=== PATIENT | female | born 1960 | race Caucasian/White ===

== ENCOUNTER 2018-12-07 12:20 | Emergency (ER) | payer MEDICARE, MEDICAID, SELFPAY ==
[2018-12-07 12:26] VITALS: BP 124/64; PULSE 100; RESP 20; TEMP 37.5; O2SAT 94
--- NOTE | 2018-12-07 12:30 | DI.RAD_ITS ---
SYMPTOMS/DIAGNOSIS: COUGH, FEVER AP AND LATERAL CHEST: There is a transvenous cardiac pacemaker in position. There is a question of prominence of the pulmonary bell bilaterally. Slight prominence of pulmonary markings particularly in the perihilar regions may be chronic or acute. No gross lobar consolidation seen. No pleural effusion seen. CONCLUSION: Question hilar enlargement. Additional evaluation with chest CT recommended.
--- NOTE | 2018-12-07 12:42 | ED.GENADUL_ITS ---
Discharge Plan Disposition Patient Disposition: HOME Condition: Stable Discharge Details Chief Complaint: Fever Clinical Impression: Pneumonia Primary Care Provider: Luis Manuel Blanca ED Provider: Celestine Pang [place] Meds and New Rx's Prescriptions: New levofloxacin [Levaquin] 750 mg tablet 750 mg PO DAILY Qty: 6 RF: 0 Continued atorvastatin [Lipitor] 40 mg tablet 40 mg PO HS Qty: 90 RF: 3 cholecalciferol (vitamin D3) 1,000 unit capsule 1,000 unit PO BID Qty: 180 RF: 4 nystatin 100,000 unit/gram powder 1 applic Topical BID PRN Qty: 60 RF: 3 furosemide 40 mg tablet 20 - 40 mg PO QAM Qty: 90 RF: 3 phenobarbital 64.8 mg tablet 129.6 mg PO DAILY Qty: 60 RF: 5 acetaminophen [Tylenol Extra Strength] 500 MG tablet 500 mg PO Q8HR PRN RF: 0 Hinged Knee Brace Miscellaneous DAILY Qty: 1 RF: 0 loratadine 10 MG tablet 10 mg PO DAILY PRN Qty: 90 RF: 4 hemp oil 1.875 ml PO BID Qty: 1 RF: 0 clotrimazole-betamethasone 15 GM cream 15 gm Topical BID prn Qty: 30 RF: 2 quetiapine [Seroquel] 50 MG tablet 25 mg PO HS Qty: 90 RF: 3 Lorazepam 1 MG tablet 1 - 4 mg PO DIRECTED PRNQty: 30 RF: 1 oxcarbazepine [Trileptal] 300 MG tablet 600 mg PO TID Qty: 150 RF: 11 ferrous gluconate 324 MG tablet 324 mg PO DAILY Qty: 90 RF: 3 esomeprazole magnesium [Nexium] 40 mg capsule,delayed release(DR/EC) 40 mg PO BID Qty: 180 RF: 3 sertraline 100 mg tablet 100 mg PO DAILY Qty: 90 RF: 3 diazepam [Diastat AcuDial] 12.5-15-17.5-20 mg kit 20 mg AK as directed PRN (Reason: seizure activity) Qty: 1 RF: 2 clobazam [Onfi] 10 mg tablet 20 mg PO HS Qty: 60 RF: 5 Banzel 400 mg tablet 1,200 mg PO TID Qty: 240 RF: 3 ascorbic acid (vitamin C) [Vitamin C] 250 MG tablet 250 mg PO DAILY PRN RF: 0 melatonin 3 MG tablet 1 tab PO DAILY RF: 0 Discontinued ondansetron HCl [Zofran] 4 MG tablet 1 tab PO q 8 hr prn Qty: 20 RF: 1 Discharge Instructions Instructions: Pneumonia (ED) Additional Instructions: Return immediately to the emergency department for any new or significant worsening of symptoms, difficulty breathing, or any further concerns he may have. Otherwise continue to treat the fever with acetaminophen/Tylenol as needed. Keep patient well-hydrated and encourage appropriate nutrition. If improving please follow-up with primary care provider for reassessment next week. Consider holding your Seroquel while taking the Levaquin as these medications can interact together. You can take a maximum of 1000 mg of Tylenol every 6 hours as needed for pain. Referrals: Luis Manuel Blanca [Primary Care Provider] - 5 days (Call the office on Monday morning for arrangement of follow-up appointment) Discharge Data Discharge Date/Time-TO BE ENTERED AT DEPARTURE: 12/07/18 17:05 Medical Decision Making Patient presenting to the emergency department for chief complaint of fever and cough. Caregiver states that patient has had these symptoms for the past 3 weeks but yesterday patient started running a fever. Patient has seizure disorder and did have a seizure last night which caregiver states is not abnormal for her when she starts running a fever. Caregiver states typical seizure-like behavior and no abnormalities. She does state some increased malaise today noted in patient but otherwise mental status at patient's baseline. Patient does follow commands and responds her name but is minimally verbal. Physical exam shows bilateral rhonchi lower bases but patient is making a lot of noise during exam making it difficult to hear full auscultation of lungs. Patient does have mild cervical lymphadenopathy otherwise HEENT exam, cardiac exam are nondiagnostic unremarkable. Review of primary care notes shows that patient did have visit recently for diagnosis of upper respiratory tract infection. I am concerned for possible secondary pneumonia so chest x-ray and labs were ordered. Patient is otherwise stable at this time showing no hypotension and O2 sat of 94% on room air. Review of labs show a leukocytosis, nondiagnostic CMP, and chest x-ray that speaking with radiologist shows a elevated hilum. Patient has not had this in the past and radiologist requests a chest CT if concern for pulmonary source. Given that this is the main complaint of patient coming to the emergency department I do feel that this is appropriate. Speaking with radiologist about CT findings there is concern for multilobular pneumonia versus possible metastatic disease. Given patient's history of seizure there is concern for aspiration pneumonia causing her symptoms. Patient is allergic to Augmentin so plan to use Levaquin. Patient uses Seroquel for sleep and no longer using Zofran but plan to do EKG to ensure no QT prolongation. EKG reviewed with Dr. Kapoor and shows sinus rhythm with short AK of 111, otherwise rate of 97, within normal limits for QT, nondiagnostic. Patient started on Levaquin and given Tylenol emergency department for fever. Caregivers state that patient is slightly more tired than normal but otherwise she has been more sick in the past when she required admission. They state comfortability of taking patient home and given stable vital signs I feel that this is appropriate. I did speak to Dr. Blanca patient's primary care provider whom stated that patient would be able to follow-up next week in their office and stated no objections to patient going home. Did communicate CT findings with primary care provider and radiologist request for patient to have repeat imaging in the next 3 to 4-weeks. patient prescribed Levaquin for total of 7 days. Close return precautions were discussed with caregivers. After discussion of diagnosis and plan of care, caregivers have no further needs, questions, or concerns and states clear understanding to return to the emergency department for any worsening symptoms. HPI General Mode of arrival: EMS . Date/Time Provider Initiated Documentation: 12/07/18 12:28 . Limitations to Documentation: no limitations . Information obtained by: RN/MD, EMS and RN notes reviewed . History of Present Illness 58 year old F presents to the emergency department with the chief complaint of fever, cough, Patient started experiencing this week(s) (3) and it has been constant. No relieving factors improve symptom(s), Patient did receive the following treatments prior to arrival, none Related Data Home Medications Medication Instructions Recorded Confirmed acetaminophen [Tylenol Extra 500 mg PO Q8HR PRN 11/14/12 12/07/18 Strength] ascorbic acid (vitamin C) [Vitamin 250 mg PO DAILY PRN 08/11/14 12/07/18 C] loratadine 10 mg PO DAILY PRN #90 tab-cap 05/10/16 12/07/18 melatonin 1 tab PO DAILY 07/09/16 12/07/18 Hemp Oil 1.875 ml PO BID #1 09/07/16 12/07/18 clotrimazole-betamethasone 15 gm TOPICAL BID prn #30 g 02/21/17 12/07/18 quetiapine [Seroquel] 25 mg PO HS #90 tab-cap 03/13/18 12/07/18 ferrous gluconate 324 mg PO DAILY #90 tab-cap 03/26/18 12/07/18 oxcarbazepine [Trileptal] 600 mg PO TID #150 tab-cap NS 03/26/18 12/07/18 esomeprazole magnesium 40 mg 40 mg PO BID #180 tab-cap 07/02/18 12/07/18 capsule,delayed release diazepam 12.5 mg-15 mg-17.5 mg-20 20 mg AK as directed PRN #1 kit 08/27/18 12/07/18 mg rectal kit sertraline 100 mg tablet 100 mg PO DAILY #90 tab-cap 08/27/18 12/07/18 clobazam 10 mg tablet 20 mg PO HS #60 tab-cap 09/25/18 12/07/18 rufinamide 400 mg tablet 1,200 mg PO TID #240 tab-cap 09/27/18 12/07/18 atorvastatin 40 mg tablet 40 mg PO HS #90 tab-cap 11/27/18 12/07/18 cholecalciferol (vitamin D3) 1,000 1,000 unit PO BID #180 tab-cap 11/27/18 12/07/18 unit capsule furosemide 40 mg tablet 20 - 40 mg PO QAM #90 tab-cap 11/27/18 12/07/18 nystatin 100,000 unit/gram topical 1 applic TOPICAL BID PRN #60 gm 11/27/18 12/07/18 powder phenobarbital 64.8 mg tablet 129.6 mg PO DAILY #60 tab 11/27/18 12/07/18 levofloxacin [Levaquin] 750 mg PO DAILY #6 tab 12/07/18 Previous Rx's Medication Instructions Recorded quetiapine [Seroquel] 25 mg PO HS #90 tab-cap 03/13/18 ferrous gluconate 324 mg PO DAILY #90 tab-cap 03/26/18 oxcarbazepine [Trileptal] 600 mg PO TID #150 tab-cap NS 03/26/18 esomeprazole magnesium 40 mg 40 mg PO BID #180 tab-cap 07/02/18 capsule,delayed release diazepam 12.5 mg-15 mg-17.5 mg-20 20 mg AK as directed PRN #1 kit 08/27/18 mg rectal kit sertraline 100 mg tablet 100 mg PO DAILY #90 tab-cap 08/27/18 clobazam 10 mg tablet 20 mg PO HS #60 tab-cap 09/25/18 rufinamide 400 mg tablet 1,200 mg PO TID #240 tab-cap 09/27/18 atorvastatin 40 mg tablet 40 mg PO HS #90 tab-cap 11/27/18 cholecalciferol (vitamin D3) 1,000 1,000 unit PO BID #180 tab-cap 11/27/18 unit capsule furosemide 40 mg tablet 20 - 40 mg PO QAM #90 tab-cap 11/27/18 nystatin 100,000 unit/gram topical 1 applic TOPICAL BID PRN #60 gm 11/27/18 powder phenobarbital 64.8 mg tablet 129.6 mg PO DAILY #60 tab 11/27/18 levofloxacin [Levaquin] 750 mg PO DAILY #6 tab 12/07/18 Allergies Allergy/AdvReac Type Severity Reaction Status Date / Time amoxicillin trihydrate Allergy Intermediate SKIN RASH Unverified 12/04/17 11:00 [From Augmentin] potassium clavulanate Allergy Intermediate SKIN RASH Unverified 12/04/17 11:00 [From Augmentin] risedronate sodium AdvReac Mild GI SX Unverified 12/04/17 11:00 [From Actonel] General Stated Complaint: Fever GIRMA: 3 Review of Systems Constitutional Reports fever(s) and Reports malaise ENT Reports as per HPI, Denies ear discharge, Denies otalgia, Denies nasal congestion, Reports nasal discharge, Denies neck pain and Denies sore throat Cardiovascular Denies chest pain and Denies dyspnea Respiratory Reports as per HPI, Reports cough and Denies dyspnea Gastrointestinal Denies nausea and Denies vomiting Musculoskeletal Denies joint swelling and Denies neck pain Integumentary/Breasts Denies rash PFSH Medical History Edema Hyperlipidemia Iron deficiency anemia Seizure disorder Surgical History Cholecystectomy (~2003) EGD - MAC (07/12/14) Fracture, Open Treatment Family History Mother Essential hypertension Diabetes Dementia Hyperlipidemia Father Essential hypertension Diabetes Heart disease Hyperlipidemia Brother Diabetes Heart disease Hyperlipidemia Social History Smoking/Tobacco Use Status: Never Drug use: Never Additional Social history: unable to assess Exam Const General: cooperative, comfortable and no acute distress Orientation: alert and awake HENMT Head: normal to inspection, normocephalic and atraumatic Ears: TM's normal bilaterally General nose exam: external nose normal Mouth: oral mucosae normal, no drooling and no trismus Throat: posterior oropharynx normal, tonsils normal and uvula midline Neck Neck: normal visual inspection, full ROM, no meningeal signs, trachea midline, supple and lymphadenopathy (Mild anterior cervical) Resp Effort & Inspection: normal respiratory effort, able to speak in complete sentences and cough Quality of cough: actively coughing Auscultation: rhonchi lower bilaterally Cardio Rate: regular rate Rhythm: regular rhythm Heart Sounds: S1 normal, S2 normal, normal S1 and S2, no click, no gallops, no murmurs and no rubs Skin General skin exam: no rashes or lesions noted and dry skin (warm) Neuro General: alert, awake and moves all extremities Course Vital Signs Temperature 37.5 C 12/07/18 12:26 Pulse 100 H 12/07/18 12:26 Respiratory Rate 20 12/07/18 12:26 Blood Pressure 124/64 12/07/18 12:26 Pulse Oximetry 94 L 12/07/18 12:26 Temperature 37.5 C 12/07/18 12:26 Temperature Source Temporal Artery Scan 12/07/18 12:26 Pulse 100 H 12/07/18 12:26 Respiratory Rate 20 12/07/18 12:26 Respiratory Effort Non-Labored 12/07/18 12:26 Blood Pressure 124/64 12/07/18 12:26 Pulse Oximetry 94 L 12/07/18 12:26 Oxygen Delivery Method Room Air 12/07/18 12:26 Oxygen Flow Rate 0 12/07/18 12:26 Pain Level 0 12/07/18 12:26
[2018-12-07 13:05] LABS: Abs Immature Grans 0.03 k/cumm (0.0-0.09); Absolute Monocyte Count 0.54 k/cumm (0.11-0.7); Absolute Neutrophil Count 11.27 k/cumm (1.2-6.7); HCT 39.5 % (36.0-46.0); HGB 12.9 g/dL (12.0-15.5); Immature Grans % 0.2; Lymphocytes % 6.3; Mean Corp. HGB Concentration 32.7 g/dL (32.0-36.0); Mean Corpuscular Hemoglobin 29.6 pg (27.0-33.0); Mean Corpuscular Volume 90.6 fL (80-95); Mean Platelet Volume 9.6 fL (8.0-11.0); Monocytes % 4.3; Neutrophils % 89.2; Platelet Count 203 x1000/uL (130-400); RBC 4.36 m/cumm (4.00-5.20); RBC Distribution Width 13.8 % (11.7-14.6); White Blood Cell Count 12.63 k/cumm (4.4-10.8)
[2018-12-07 13:18] LABS: ALT 31 U/L (12-78); AST 22 U/L (15-37); Albumin 3.3 g/dL (3.4-5.0); Alkaline Phosphatase 120 U/L (46-116); Anion Gap 7.2 mmol/L (3-11); BUN 13 mg/dL (7-18); Bilirubin, Total 0.2 mg/dL (0.2-1.0); CO2 31.8 mmol/L (21.0-32.0); CREATININE 0.69 mg/dL (0.55-1.02); Calcium 9.1 mg/dL (8.5-10.1); Chloride 100 mmol/L (98-107); Glucose 125 mg/dL (70-100); Potassium 3.4 mmol/L (3.5-5.1); Sodium 139 mmol/L (136-145); Total Protein 7.1 g/dL (6.4-8.2)
[2018-12-07] MEDS: Omnipaque 350 MG/ML 100 ML BTL IJ (13:49)
[2018-12-07] MEDS: Normal Saline Flush 10 ML SYR IVP ×2 (13:51→15:01)
--- NOTE | 2018-12-07 13:51 | DI.CT_ITS ---
SYMPTOMS/DIAGNOSIS: VERY PRODUCTIVE COUGH X 3 WEEKS, FEVER, ABNORMAL CHEST X- RAY CHEST CT: CT examination of the chest was performed with a bolus infusion of 100 cc of Omnipaque 350. Images obtained through the upper abdomen show unremarkable appearance of visualized portions of liver, spleen, pancreas and kidneys. An approximately 1 cm in diameter left adrenal nodule is noted with appearance consistent with benign disease. There is marked motion artifact on this examination, which limits interpretation. The pulmonary arterial circulation appears intact as visualized to the segmental level. No aortic aneurysm or dissection. No mediastinal or hilar adenopathy. Tracheobronchial tree appears intact. There are poorly defined predominantly nodular opacities seen in both lungs in dependent portions of the lungs in the lower lobes, the largest of these mass- like opacities is in the right lower lobe superiorly and measures roughly 23 mm in greatest diameter. The findings as described may represent pulmonary consolidation; however, the possibility of multiple mass lesions is not excluded. No pleural effusions seen. CONCLUSION: Bilateral nodular pulmonary opacities, predominantly in dependent portions of the lungs with the patient supine. Findings may represent infectious process, but neoplastic disease is not excluded. Follow-up chest CT recommended in three to four weeks following treatment.
[2018-12-07 14:11] VITALS: BP 101/42; PULSE 90; RESP 16; TEMP 36.7; O2SAT 98
[2018-12-07] MEDS: Acetaminophen 500 MG TAB 1000 MG PO (15:00)
[2018-12-07] MEDS: levoFLOXacin 750 MG/150 ML BAG 100 MG IVPB (15:00)
[2018-12-07 17:03] VITALS: BP 101/42; PULSE 90; RESP 16; TEMP 36.7; O2SAT 98
== END 2018-12-07 17:05 | disposition home or self-care (01) ==
PROVIDERS: Emergency Provider Nurse Practitioner Family; PCP Family Medicine
DX: J18.9 Pneumonia, unspecified organism (principal); G40.909 Epilepsy, unspecified, not intractable, without status epilepticus
CPT/HCPCS: 36410; 36415; 80053; 87040; 93005; 96365; 99285; 71046; 71260; 85025; 93010; J1956; J3490

== ENCOUNTER 2019-01-04 01:20 | Outpatient (CLI) | payer MEDICARE, MEDICAID, SELFPAY ==
--- NOTE | 2019-01-04 12:46 | DI.CT_ITS ---
SYMPTOMS/DIAGNOSIS: PNEUMONIA, J18.9, REASSESS LUNG INFILTRATES SEEN ON CT CT SCAN OF THE CHEST: Noncontrast CT scan of the chest was performed. Comparison is 12/07/18. There is atherosclerosis of the thoracic aorta but no aneurysmal dilatation. The heart size is within normal limits. No significant pericardial effusion. Coronary artery calcifications are present. No significant thoracic adenopathy is identified. No pleural effusion or pneumothorax is identified. The lungs are clear. The infiltrates have resolved since the previous examination. The tracheobronchial tree is unremarkable. Degenerative changes are seen in the spine. IMPRESSION: Complete resolution of the pulmonary infiltrates since 12/07/18. No acute pulmonary process is present.
== END 2019-01-04 01:40 ==
PROVIDERS: PCP Family Medicine; Visit Provider Family Medicine
DX: J18.9 Pneumonia, unspecified organism (principal)
CPT/HCPCS: 71250

== ENCOUNTER 2019-03-01 03:19 | Outpatient (CLI) | payer MEDICARE, MEDICAID, SELFPAY ==
[2019-03-01 09:54] LABS: ALT 30 U/L (12-78); AST 26 U/L (15-37); Albumin 3.3 g/dL (3.4-5.0); Alkaline Phosphatase 117 U/L (46-116); Bilirubin, Total 0.2 mg/dL (0.2-1.0); Total Protein 7.3 g/dL (6.4-8.2)
[2019-03-01 09:55] LABS: Bilirubin, Direct < 0.05 mg/dL (0.00-0.20)
[2019-03-01 10:53] LABS: PHENOBARBITAL 30.6 ug/mL (15.0-40.0)
[2019-03-02 15:49] LABS: Oxcarbazepine Metabolite, S 27 mcg/mL (3 - 35)
== END 2019-03-01 03:39 ==
PROVIDERS: PCP Family Medicine; Visit Provider Nurse Practitioner Adult Health
DX: G40.309 Generalized idiopathic epilepsy and epileptic syndromes, not intractable, without status epilepticus (principal); Z51.81 Encounter for therapeutic drug level monitoring; Z79.899 Other long term (current) drug therapy
CPT/HCPCS: 36415; 80076; 80183; 80299; 80346; 80184

== ENCOUNTER 2019-05-08 09:08 | Outpatient (CLI) | payer MEDICARE, MEDICAID, SELFPAY ==
[2019-05-08 11:25] LABS: ALT 29 U/L (14-59); AST 14 U/L (15-37); Albumin 4.1 g/dL (3.4-5.0); Alkaline Phosphatase 105 U/L (46-116); Bilirubin, Direct 0.09 mg/dL (0.00-0.20); Bilirubin, Total 0.3 mg/dL (0.2-1.0); Total Protein 7.5 g/dL (6.4-8.2)
[2019-05-08 11:36] LABS: PHENOBARBITAL 32.7 ug/mL (15.0-40.0)
[2019-05-10 11:39] LABS: Oxcarbazepine Metabolite, S 28 mcg/mL (3 - 35)
== END 2019-05-08 09:28 ==
PROVIDERS: PCP Family Medicine; Visit Provider Nurse Practitioner Adult Health
DX: R56.9 Unspecified convulsions (principal); Z51.81 Encounter for therapeutic drug level monitoring; Z79.899 Other long term (current) drug therapy
CPT/HCPCS: 36415; 80076; 80183; 80299; 80346; 80184

== ENCOUNTER 2019-09-04 15:04 | Outpatient (CLI) | payer MEDICARE, MEDICAID, SELFPAY ==
[2019-09-04 16:57] LABS: ALT 23 U/L (14-59); AST 11 U/L (15-37); Albumin 3.7 g/dL (3.4-5.0); Alkaline Phosphatase 114 U/L (46-116); Anion Gap 8.6 mmol/L (3-11); BUN 7 mg/dL (7-18); Bilirubin, Total 0.3 mg/dL (0.2-1.0); CO2 30.4 mmol/L (21.0-32.0); CREATININE 0.44 mg/dL (0.55-1.02); Calcium 8.6 mg/dL (8.5-10.1); Calculated LDL 103 mg/dL (<100); Chloride 90 mmol/L (98-107); Cholesterol 188 mg/dL (<200); Glucose 84 mg/dL (74-106); HDL Cholesterol 43 mg/dL (40-60); PHENOBARBITAL 32.2 ug/mL (15.0-40.0); Potassium 3.8 mmol/L (3.5-5.1); Sodium 129 mmol/L (136-145); Total Protein 7.2 g/dL (6.4-8.2); Triglyceride 214 mg/dL (<150)
[2019-09-04 17:09] LABS: Bilirubin, Direct 0.09 mg/dL (0.00-0.20)
[2019-09-06 11:01] LABS: Oxcarbazepine Metabolite, S 34 mcg/mL (3 - 35)
== END 2019-09-04 15:24 ==
PROVIDERS: PCP Family Medicine; Visit Provider Nurse Practitioner Adult Health
DX: G40.909 Epilepsy, unspecified, not intractable, without status epilepticus (principal); Z51.81 Encounter for therapeutic drug level monitoring; Z79.899 Other long term (current) drug therapy; E78.5 Hyperlipidemia, unspecified
CPT/HCPCS: 36415; 80048; 80061; 80076; 80183; 80299; 80346; 80184

== ENCOUNTER 2019-10-09 09:00 | Outpatient (CLI) | payer MEDICARE, SELFPAY ==
[2019-10-09 09:47] LABS: PHENOBARBITAL 40.8 ug/mL (15.0-40.0)
[2019-10-09 10:29] LABS: Anion Gap 5.7 mmol/L (3-11); CO2 34.3 mmol/L (21.0-32.0); Chloride 95 mmol/L (98-107); Potassium 3.9 mmol/L (3.5-5.1); Sodium 135 mmol/L (136-145)
[2019-10-12 15:15] LABS: Oxcarbazepine Metabolite, S 47 mcg/mL (3 - 35)
== END 2019-10-09 09:20 ==
PROVIDERS: PCP Family Medicine; Visit Provider Nurse Practitioner Adult Health
DX: G40.814 Lennox-Gastaut syndrome, intractable, without status epilepticus (principal); E87.1 Hypo-osmolality and hyponatremia
CPT/HCPCS: 36415; 80051; 80183; 80299; 80346; 80184

== ENCOUNTER 2020-06-11 12:30 | Outpatient (CLI) | payer MEDICARE, MEDICAID, SELFPAY ==
[2020-06-11 13:41] LABS: ALT 22 U/L (14-59); AST 15 U/L (15-37); Albumin 3.9 g/dL (3.4-5.0); Alkaline Phosphatase 129 U/L (46-116); Bilirubin, Direct 0.07 mg/dL (0.00-0.20); Bilirubin, Total 0.3 mg/dL (0.2-1.0)
[2020-06-11 13:56] LABS: PHENOBARBITAL 39.5 ug/mL (15.0-40.0)
[2020-06-15 11:13] LABS: Oxcarbazepine Metabolite, S 40 mcg/mL (3 - 35)
== END 2020-06-11 12:50 ==
PROVIDERS: PCP Family Medicine; Visit Provider Nurse Practitioner Adult Health
DX: G40.309 Generalized idiopathic epilepsy and epileptic syndromes, not intractable, without status epilepticus (principal)
CPT/HCPCS: 36415; 80076; 80183; 80299; 80346; 80184

== ENCOUNTER 2020-10-05 15:18 | Emergency (ER) | payer MEDICARE, MEDICAID, SELFPAY ==
[2020-10-05] VITALS (32 sets, daily range): BP systolic 110–136; BP diastolic 55–72; PULSE 79–93; RESP 12–20; TEMP 36.4; O2SAT 94–100
--- NOTE | 2020-10-05 15:15 | RT.EKG_ITS ---
APPROVED REPORT Exam: Resting ECG Patient Location: E HR:88 bpm ECG Measurements Heart Rate 88 AXIS NM 120 P 51 QRSd 87 QRS 60 QT 364 T 49 QTc 441 Conclusion Sinus rhythm...normal P axis, V-rate 60- 99
--- NOTE | 2020-10-05 15:44 | W.ED.GENAD ---
Discharge Plan Disposition Patient Disposition: HOME Condition: Improving Discharge Details Clinical Impression: Seizure disorder Primary Care Provider: Luis Manuel Blanca ED Provider: Solitario Kapoor Home Meds and New Rx's Prescriptions: Continued atorvastatin [Lipitor] 40 mg tablet 40 mg PO HS Qty: 90 RF: 3 cholecalciferol (vitamin D3) 25 mcg (1,000 unit) capsule 1,000 unit PO BID Qty: 180 RF: 4 furosemide 40 mg tablet 20 - 40 mg PO QAM Qty: 90 RF: 3 melatonin 3 mg tablet 6 mg PO DAILY Qty: 180 RF: 3 nystatin 100,000 unit/gram powder 1 applic Topical BID PRN Qty: 60 RF: 3 clobazam 20 mg tablet 20 mg PO DAILY Qty: 90 RF: 3 acetaminophen [Tylenol Extra Strength] 500 MG tablet 500 mg PO BID RF: 0 Hinged Knee Brace Miscellaneous DAILY Qty: 1 RF: 0 clotrimazole-betamethasone 1-0.05 % cream 1 applic Topical BID prn Qty: 30 RF: 0 diazepam [Diastat AcuDial] 12.5-15-17.5-20 mg kit 20 mg KS as directed PRN (Reason: seizure activity) Qty: 1 RF: 2 sertraline 100 mg tablet 100 mg PO DAILY Qty: 90 RF: 3 midazolam 5 mg/spray (0.1 mL) spray,non-aerosol 2.5 mg HUA DAILY PRN RF: 0 Epidiolex 100 mg/mL solution See Rx Instructions PO BID RF: 0 ferrous gluconate 324 mg (36 mg iron) tablet 324 mg PO DAILY Qty: 90 RF: 3 loratadine 10 mg tablet 10 mg PO DAILY PRN Qty: 90 RF: 3 quetiapine [Seroquel] 50 mg tablet 50 mg PO HS Qty: 90 RF: 3 lorazepam 1 mg tablet 1 - 4 mg PO DAILY PRN (Reason: seizure) Qty: 30 RF: 5 oxcarbazepine 300 mg Tablet 300 mg PO DAILY RF: 0 oxcarbazepine [Trileptal] 300 MG tablet 600 mg PO BID RF: 0 phenobarbital 60 mg tablet 120 mg PO HS RF: 0 esomeprazole magnesium [Nexium] 40 mg capsule,delayed release(DR/EC) PO BID RF: 0 Banzel 400 mg tablet 1,200 mg PO BID RF: 0 Discharge Instructions Additional Instructions: Your potassium was slightly low today and was supplemented in the ER. Please take single extra tablet of potassium with next meal. Continue your regular medications. Please follow-up with Dr. Blanca in clinic for recheck, we will ask care management to make a followup for you. Return for any acute concern Medical Decision Making 60-year-old f with a seizure disorder, Takes phenobarbital, Trileptal cannabidiol, clobazam, rufinamide. And Ativan prior to an uneventful dental cleaning, returned home and ate lunch, then developed a generalized tonic-clonic seizure lasting minutes for which she received 20 mg of rectal Diastat. She has special needs and lives with her caregiver. She has otherwise been well. She arrives responding to the caregivers voice with normal vital signs, no fever. Broad differential diagnosis was considered including underlying infection, metabolic abnormality, or breakthrough seizure. Patient had laboratory analysis, urinalysis, chest x-ray and EKG. Discussed with Dr. Barros of [facility] neurology service. We will continue current antiepileptic regimen, with surveillance for a change in seizure pattern. Patient with slightly low potassium of 3.1, which was supplemented in the EMR, may be due to her loop diuretic. Urine appears contaminated, will culture. We will ask care management to arrange an outpatient follow-up for recheck. Lab Data Lab results reviewed: Yes I reviewed the patient's lab results. Labs: Laboratory Results - last 24 hr 10/05/20 10/05/20 10/05/20 15:25 15:25 15:25 WBC 7.99 RBC 4.74 Hgb 13.9 Hct 42.9 MCV 90.5 MCH 29.3 MCHC 32.4 RDW 12.8 Plt Count 233 MPV 9.5 Immature Gran % 0.8 Neutrophils % 76.9 Lymphocytes % 17.6 Monocytes % 4.4 Eosinophils % 0.0 Basophils % 0.3 Nucleated RBC % 0 Absolute Neutrophils 6.15 Absolute Lymphocytes 1.41 Absolute Monocytes 0.35 Absolute Eosinophils 0.00 Absolute Basophils 0.02 Sodium 140 Potassium 3.1 L Chloride 99 Carbon Dioxide 28.2 Anion Gap 12.8 H BUN 18 Creatinine 0.8 Estimated GFR/1.73 m2 >= 60.00 Glucose 115 H Calcium 9.0 Total Bilirubin 0.3 AST 19 ALT 26 Alkaline Phosphatase 120 H Total Protein 8.1 Albumin 4.2 Urine Color Urine Clarity Urine pH Ur Specific [place] Urine Protein Urine Ketones Urine Blood Urine Nitrite Urine Bilirubin Urine Urobilinogen Ur Leukocyte Esterase Urine RBC Urine WBC Ur Epithelial Cells Urine Crystals Urine Bacteria Urine Casts Urine Mucus Urine Other Ur Culture Indicated? Urine Glucose Phenobarbital 41.9 H 10/05/20 16:45 WBC RBC Hgb Hct MCV MCH MCHC RDW Plt Count MPV Immature Gran % Neutrophils % Lymphocytes % Monocytes % Eosinophils % Basophils % Nucleated RBC % Absolute Neutrophils Absolute Lymphocytes Absolute Monocytes Absolute Eosinophils Absolute Basophils Sodium Potassium Chloride Carbon Dioxide Anion Gap BUN Creatinine Estimated GFR/1.73 m2 Glucose Calcium Total Bilirubin AST ALT Alkaline Phosphatase Total Protein Albumin Urine Color Yellow Urine Clarity Clear Urine pH 6.0 Ur Specific [place] 1.025 Urine Protein Negative Urine Ketones Negative Urine Blood Trace-intact H Urine Nitrite Negative Urine Bilirubin Negative Urine Urobilinogen 0.2 Ur Leukocyte Esterase Negative Urine RBC Negative Urine WBC 10-20 H Ur Epithelial Cells Moderate Urine Crystals Negative Urine Bacteria Moderate Urine Casts Negative Urine Mucus Negative Urine Other Negative Ur Culture Indicated? Yes Urine Glucose Negative Phenobarbital HPI General Mode of arrival: ambulatory. Date/Time Provider Initiated Documentation: 10/05/20 15:27. Limitations to Documentation: no limitations. Information obtained by: patient. History of Present Illness 60 year old F presents to the emergency department with the chief complaint of Seizure at home, described as similar to prior episodes, Patient reports no radiation. Patient started experiencing this minute(s) and it has been now resolved. other things that improve symptom(s), (diastat) Patient notes denies fever/chills. Patient did receive the following treatments prior to arrival, other (Diastat) Related Data Home Medications Medication Instructions Recorded Confirmed acetaminophen [Tylenol Extra 500 mg PO BID 11/14/12 10/05/20 Strength] clotrimazole-betamethasone 1 1 applic TOPICAL BID prn #30 gm 01/11/19 10/05/20 %-0.05 % topical cream diazepam 12.5 mg-15 mg-17.5 mg-20 20 mg KS as directed PRN #1 kit 01/11/19 10/05/20 mg rectal kit sertraline 100 mg tablet 100 mg PO DAILY #90 tab-cap 03/18/19 10/05/20 cannabidiol 100 mg/mL oral solution See Rx Instructions PO BID ml 09/04/19 10/05/20 midazolam 5 mg/spray (0.1 mL) 2.5 mg HUA DAILY PRN each 09/04/19 10/05/20 nasal spray ferrous gluconate 324 mg (36 mg 324 mg PO DAILY #90 tab-cap 02/19/20 10/05/20 iron) tablet loratadine 10 mg tablet 10 mg PO DAILY PRN #90 tab-cap 03/06/20 10/05/20 quetiapine 50 mg tablet 50 mg PO HS #90 tab-cap 03/27/20 10/05/20 lorazepam 1 mg tablet 1 - 4 mg PO DAILY PRN #30 tab 04/03/20 10/05/20 atorvastatin 40 mg tablet 40 mg PO HS #90 tab-cap 09/09/20 10/05/20 cholecalciferol (vitamin D3) 25 1,000 unit PO BID #180 tab-cap 09/09/20 10/05/20 mcg (1,000 unit) capsule clobazam 20 mg tablet 20 mg PO DAILY #90 tab 09/09/20 10/05/20 furosemide 40 mg tablet 20 - 40 mg PO QAM #90 tab-cap 09/09/20 10/05/20 melatonin 3 mg tablet 6 mg PO DAILY #180 tab 09/09/20 10/05/20 nystatin 100,000 unit/gram topical 1 applic TOPICAL BID PRN #60 gm 09/09/20 10/05/20 powder Banzel 1,200 mg PO BID 10/05/20 10/05/20 esomeprazole magnesium [Nexium] mg PO BID 10/05/20 oxcarbazepine 300 mg PO DAILY 10/05/20 10/05/20 oxcarbazepine [Trileptal] 600 mg PO BID 10/05/20 10/05/20 phenobarbital 120 mg PO HS 10/05/20 10/05/20 Previous Rx's Medication Instructions Recorded clotrimazole-betamethasone 1 1 applic TOPICAL BID prn #30 gm 01/11/19 %-0.05 % topical cream diazepam 12.5 mg-15 mg-17.5 mg-20 20 mg KS as directed PRN #1 kit 01/11/19 mg rectal kit sertraline 100 mg tablet 100 mg PO DAILY #90 tab-cap 03/18/19 ferrous gluconate 324 mg (36 mg 324 mg PO DAILY #90 tab-cap 02/19/20 iron) tablet loratadine 10 mg tablet 10 mg PO DAILY PRN #90 tab-cap 03/06/20 quetiapine 50 mg tablet 50 mg PO HS #90 tab-cap 03/27/20 lorazepam 1 mg tablet 1 - 4 mg PO DAILY PRN #30 tab 04/03/20 atorvastatin 40 mg tablet 40 mg PO HS #90 tab-cap 09/09/20 cholecalciferol (vitamin D3) 25 1,000 unit PO BID #180 tab-cap 09/09/20 mcg (1,000 unit) capsule clobazam 20 mg tablet 20 mg PO DAILY #90 tab 09/09/20 furosemide 40 mg tablet 20 - 40 mg PO QAM #90 tab-cap 09/09/20 melatonin 3 mg tablet 6 mg PO DAILY #180 tab 09/09/20 nystatin 100,000 unit/gram topical 1 applic TOPICAL BID PRN #60 gm 09/09/20 powder Allergies Allergy/AdvReac Type Severity Reaction Status Date / Time amoxicillin trihydrate Allergy Intermediate SKIN RASH Verified 09/09/20 14:17 [From Augmentin] potassium clavulanate Allergy Intermediate SKIN RASH Verified 09/09/20 14:17 [From Augmentin] risedronate sodium AdvReac Mild GI SX Verified 09/09/20 14:17 [From Actonel] General Stated Complaint: Seizure GIRMA: 3 Review of Systems Narrative: 6 systems reviewed and otherwise negative [facility] Medical History (Updated 10/05/20 @ 16:43 by Solitario Kapoor MD) Edema Hyperlipidemia Iron deficiency anemia Seizure disorder Surgical History (Updated 05/27/19 @ 12:14 by Jonathan Myrick) Cholecystectomy (~2003) EGD - MAC (07/12/14) Fracture, Open Treatment RIGHT ANKLE Family History Mother Essential hypertension Diabetes TYPE II Dementia Hyperlipidemia Father , late 80s Essential hypertension Diabetes TYPE II Heart disease Hyperlipidemia Brother Diabetes Heart disease Hyperlipidemia Brother No problems noted. Social History Smoking/Tobacco Use Status: Never Smoking risk assessment performed?: Yes Alcohol Intake: never Drug use: Never Substance use type: does not use Caregiver/Support person: Yes Household members: other Details: caregiver and spouse, another client Housing: house Communication Needs: Language Barriers Do you need help understanding health information?: Always Pets and animals: Yes Pets and animals: cat(s) and dog(s) Sexually active: Yes Current gender identity: female What is your relationship status?: never How often do you talk on the phone with friends or family?: decline to answer How often do you get together with friends or relatives?: decline to answer How often do you attend baptism or temple services?: decline to answer Do you belong to any clubs or organized social groups?: decline to answer Panel score (0-1 are the most socially isolated patients): 0 What type of physical activity do you participate in: none Frequency: does not exercise Nancy/Roman Catholic: Hoahaoism Special nancy needs: No Seatbelt use: always Drive intox or ride w/intox commercial relief driver: No Additional Social history: unable to assess Exam Narrative Exam Narrative: GEN: awake, well groomed, interactive. HEAD: Normocephalic, atraumatic ENT: Mucous membranes moist, oropharynx unremarkable, External ear exam unremarkable EYES: PERRL, EOMI NECK: Full ROM, no ALHAJI, no menigismus CHEST/RESP: Left anterior chest implanted device, nontender, clear to auscultation bilateral, no wheeze/rhonchi/rales CARDIOVASCULAR: RRR, no murmur, rub gurpreet. 2+ Rad pulse bilateral ABDOMEN: Soft, nontender, no mass. +Bowel sounds EXT: Full ROM, no edema, no lesions Psych: Unable to assess Course Vital Signs Vital signs: Vital Signs Pulse 90 10/05/20 15:24 Respiratory Rate 20 10/05/20 15:24 Blood Pressure 110/61 10/05/20 15:24 Pulse Oximetry 99 10/05/20 15:24 Pulse 90 10/05/20 15:24 Respiratory Rate 20 10/05/20 15:24 Respiratory Effort Non-Labored 10/05/20 15:38 Respiratory Depth Normal 10/05/20 15:38 Respiratory Pattern Normal 10/05/20 15:38 Blood Pressure 110/61 10/05/20 15:24 Blood Pressure Position Supine 10/05/20 15:24 Pulse Oximetry 99 10/05/20 15:24 Oxygen Delivery Method Nasal Cannula 10/05/20 15:24 Oxygen Flow Rate 2 10/05/20 15:24 Pain Level 0 10/05/20 15:24
--- NOTE | 2020-10-05 15:45 | DI.RAD_ITS ---
EXAM: XR PORTABLE CHEST AP CLINICAL HISTORY: Seizure TECHNIQUE: 2D digital imaging was performed. COMPARISON: CR XR CHEST 2V PA LATERAL from 12/07/2018 FINDINGS: The examination is limited by poor inspiration and patient positioning. MEDIASTINUM: Normal. HEART: Normal. PULMONARY VASCULATURE: Normal. LUNGS: Clear. PLEURAL SPACE: No pleural effusion or pneumothorax. BONE:Within normal limits for the patient's age. OTHER FINDINGS:There is again seen a nerve stimulator device overlying the left hemithorax. IMPRESSION: Limited examination due to poor inspiration but no acute pulmonary process. DATA REPOSITORY: RADIATION DOSE DELIVERED:
[2020-10-05 15:53] LABS: Abs Immature Grans 0.06 10^3/uL (0.0-0.06); Absolute Basophil Count 0.02 10^3/uL (0.0-0.2); Absolute Lymphocyte Count 1.41 10^3/uL (1.2-3.4); Absolute Monocyte Count 0.35 10^3/uL (0.1-0.8); Absolute Neutrophil Count 6.15 10^3/uL (1.2-6.7); Basophils % 0.3; HCT 42.9 % (36.0-46.0); HGB 13.9 g/dL (11.2-15.7); Immature Grans % 0.8; Lymphocytes % 17.6; MCH 29.3 pg (27.0-33.0); MCHC 32.4 % (32.0-36.0); MCV 90.5 fL (80-95); MPV 9.5 fL (8.0-11.0); Monocytes % 4.4; Neutrophils % 76.9; Nucleated RBC 0 %; Platelet Count 233 10^3/uL (130-400); RBC 4.74 10^6/uL (3.93-5.22); RDW 12.8 % (11.7-14.6); RDW-SD 42.5 fL; WBC 7.99 10^3/uL (4.4-10.8)
[2020-10-05] MEDS: Normal Saline 1,000 ML 1000 ML IV (15:55)
[2020-10-05 16:15] LABS: ALT 26 U/L (14-59); AST 19 U/L (15-37); Albumin 4.2 g/dL (3.4-5.0); Alkaline Phosphatase 120 U/L (46-116); Anion Gap 12.8 mmol/L (3-11); BUN 18 mg/dL (7-18); Bilirubin, Total 0.3 mg/dL (0.2-1.0); CO2 28.2 mmol/L (21.0-32.0); CREATININE 0.8 mg/dL (0.55-1.02); Chloride 99 mmol/L (98-107); Glucose 115 mg/dL (74-106); Potassium 3.1 mmol/L (3.5-5.1); Sodium 140 mmol/L (136-145); Total Protein 8.1 g/dL (6.4-8.2)
[2020-10-05 16:24] LABS: PHENOBARBITAL 41.9 ug/mL (15.0-40.0)
--- NOTE | 2020-10-05 16:25 | DI.VRAD_ITS ---
PROCEDURE INFORMATION: Exam: Portable XR Chest Exam date and time: 10/05/2020 4:16 PM Age: 60 years old Clinical indication: Other: Seizure TECHNIQUE: Imaging protocol: Portable XR of the chest Views: 1 view. COMPARISON: CT CHEST WO 01/04/2019 12:58 PM FINDINGS: Tubes, catheters and devices: There is a left-sided stimulator with the stimulating wire heading towards the neck. Lungs: There is a poor inspiratory effort. Pleural spaces: Unremarkable. No pleural effusion. No pneumothorax. Heart/Mediastinum: Unremarkable. No cardiomegaly. Bones/joints: Unremarkable. Other findings: The patient is rotated towards the right. IMPRESSION: Poor inspiratory effort. Dictated and Authenticated by: Shay Walker MD. Ordering:ALFONSO Jerez MD
[2020-10-05] MEDS: POTASSIUM CHLORIDE 10 MEQ/100 ML BAG 100 MEQ IVPB (16:32)
[2020-10-05] MEDS: Normal Saline 1,000 ML 150 ML IV (16:52)
--- NOTE | 2020-10-05 17:09 | NUR.NOTE ---
Nursing Note: Referral to PCP faxed for follow up for low K in one week. Terri Lopez
[2020-10-05 17:22] LABS: Bilirubin Negative (Negative); Blood Trace-intact (Negative); Clarity Clear (Clear); Glucose Negative (Negative); Ketones Negative (Negative); Leukocyte Esterase Negative (Negative); Nitrite Negative (Negative); Specific Gravity 1.025 (1.005-1.025); Urobilinogen 0.2 EU/dL (Up TO 0.2)
[2020-10-05] MEDS: Potassium Chloride 10 MEQ TABCR PO (17:39)
[2020-10-05 17:44] LABS: Bacteria Moderate HPF (Negative); C & S Indicated? Yes; Casts Negative LPF (Negative); Crystals Negative HPF (Negative); Epithelial Cells Moderate HPF (Negative); Mucus Negative (Negative); Other Cells Negative (Negative); RBC Negative HPF (0-2)
--- NOTE | 2020-10-07 10:02 | W.ED.FU ---
Follow Up Plan: Pt's primary child care education coordinator who knows her best wasn't available this morning to discuss urine results she is going to call back this afternoon apparently patient is doing well with no reported complaints over the phone
== END 2020-10-05 17:50 | disposition home or self-care (01) ==
PROVIDERS: Emergency Provider Emergency Medicine; PCP Family Medicine
DX: G40.409 Other generalized epilepsy and epileptic syndromes, not intractable, without status epilepticus (principal); E87.6 Hypokalemia
CPT/HCPCS: 36415; 51701; 80053; 87077; 93005; 96361; 96365; 99285; 71045; 80184; 81003; 81015; 85025; 87086; 87186; 93010; 99284; J3480

== ENCOUNTER 2020-11-04 14:24 | Outpatient (REF) | payer MEDICARE, MEDICAID, SELFPAY | END 2020-11-04 14:25 | disposition home or self-care (01) | LOC: LBN 14:24 | PROVIDERS: PCP Family Medicine; Visit Provider Family Medicine | DX: L97.418 Non-pressure chronic ulcer of right heel and midfoot with other specified severity (principal) | CPT/HCPCS: 87070; 87205 ==

== ENCOUNTER 2021-05-10 03:10 | Outpatient (CLI) | payer MEDICARE, MEDICAID, SELFPAY ==
[2021-05-10 12:41] LABS: Source Nasal/Nares
[2021-05-10 21:31] LABS: COVID-19 PCR Negative (Negative)
== END 2021-05-10 03:11 | disposition home or self-care (01) ==
PROVIDERS: PCP Family Medicine; Visit Provider Surgery
DX: Z20.822 Contact with and (suspected) exposure to COVID-19 (principal); Z01.818 Encounter for other preprocedural examination
CPT/HCPCS: 87635

== ENCOUNTER 2021-07-02 14:17 | Outpatient (REF) | payer MEDICARE, MEDICAID, SELFPAY ==
[2021-07-03 01:14] LABS: COVID-19 RT-PCR UVMMC Result Negative (Negative)
== END 2021-07-02 14:18 | disposition home or self-care (01) ==
LOC: NCHCN 14:17
PROVIDERS: PCP Family Medicine; Visit Provider Family Medicine
DX: Z20.822 Contact with and (suspected) exposure to COVID-19 (principal)
CPT/HCPCS: U0003; U0005

== ENCOUNTER 2021-10-12 04:14 | Outpatient (CLI) | payer MEDICARE, MEDICAID, SELFPAY ==
[2021-10-12 08:49] LABS: HCT 40.9 % (36.0-46.0); HGB 13.5 g/dL (11.2-15.7); MCH 28.7 pg (27.0-33.0); Platelet Count 208 10^3/uL (130-400); RDW 12.1 % (11.7-14.6); RDW-SD 38.7 fL
[2021-10-12 09:52] LABS: Anion Gap 9.8 mmol/L (3-11); BUN 8 mg/dL (7-18); CO2 28.2 mmol/L (21.0-32.0); CREATININE 0.5 mg/dL (0.55-1.02); Calcium 9.3 mg/dL (8.5-10.1); Calculated LDL 75 mg/dL (<100); Chloride 89 mmol/L (98-107); Cholesterol 187 mg/dL (<200); Glucose 85 mg/dL (74-106); HDL Cholesterol 53 mg/dL (40-60); Potassium 4.2 mmol/L (3.5-5.1); Sodium 127 mmol/L (136-145); Triglyceride 298 mg/dL (<150)
== END 2021-10-12 04:15 | disposition home or self-care (01) ==
LOC: LBO 04:14
PROVIDERS: PCP Family Medicine; Visit Provider Family Medicine
DX: E78.5 Hyperlipidemia, unspecified (principal); R53.83 Other fatigue; E87.1 Hypo-osmolality and hyponatremia
CPT/HCPCS: 36415; 80048; 80061; 85027

== ENCOUNTER 2021-11-19 02:08 | Outpatient (CLI) | payer MEDICARE, MEDICAID, SELFPAY ==
[2021-11-19 16:20] LABS: Abs Immature Grans 0.05 10^3/uL (0.0-0.06); Absolute Basophil Count 0.02 10^3/uL (0.0-0.2); Absolute Eosinophil Count 0.01 10^3/uL (0.0-0.7); Absolute Lymphocyte Count 1.97 10^3/uL (1.2-3.4); Absolute Neutrophil Count 4.48 10^3/uL (1.2-6.7); Basophils % 0.3; Eosinophils % 0.1; HCT 38.7 % (36.0-46.0); HGB 12.9 g/dL (11.2-15.7); Immature Grans % 0.7; Lymphocytes % 27.2; MCH 28.9 pg (27.0-33.0); MCHC 33.3 % (32.0-36.0); MCV 86.8 fL (80-95); Monocytes % 9.7; RBC 4.46 10^6/uL (3.93-5.22); RDW 12.8 % (11.7-14.6); RDW-SD 40.5 fL; WBC 7.23 10^3/uL (4.4-10.8)
[2021-11-19 16:32] LABS: ALT 32 U/L (14-59); AST 20 U/L (15-37); Albumin 3.8 g/dL (3.4-5.0); Alkaline Phosphatase 100 U/L (46-116); Anion Gap 7.6 mmol/L (3-11); BUN 14 mg/dL (7-18); Bilirubin, Total 0.3 mg/dL (0.2-1.0); CO2 30.4 mmol/L (21.0-32.0); CREATININE 0.5 mg/dL (0.55-1.02); Calcium 8.8 mg/dL (8.5-10.1); Chloride 94 mmol/L (98-107); Glucose 106 mg/dL (74-106); PHENOBARBITAL 32.2 ug/mL (15.0-40.0); Sodium 132 mmol/L (136-145); Total Protein 7.4 g/dL (6.4-8.2)
[2021-11-19 16:41] LABS: Bilirubin, Direct < 0.1 mg/dL (0.0-0.2)
[2021-11-19 16:44] LABS: Platelet Count 252 10^3/uL (130-400)
[2021-11-23 09:50] LABS: Oxcarbazepine Metabolite, S 29 mcg/mL (10 - 35)
== END 2021-11-19 02:09 | disposition home or self-care (01) ==
LOC: LBO 02:08
PROVIDERS: PCP Family Medicine; Visit Provider Family Medicine
DX: E87.1 Hypo-osmolality and hyponatremia (principal); R19.7 Diarrhea, unspecified; G40.409 Other generalized epilepsy and epileptic syndromes, not intractable, without status epilepticus; F79 Unspecified intellectual disabilities; Z51.81 Encounter for therapeutic drug level monitoring; Z79.899 Other long term (current) drug therapy
CPT/HCPCS: 36415; 80048; 80076; 80183; 80184; 85025

== ENCOUNTER 2021-11-21 15:27 | Outpatient (REF) | payer MEDICARE, MEDICAID, SELFPAY ==
[2021-11-22 23:49] LABS: Campylobacter PCR Negative (Negative); Salmonella PCR Negative (Negative); Shiga Toxin PCR Negative (Negative); Shigella/Enteroinvasive Ecoli Negative (Negative)
== END 2021-11-21 15:28 | disposition home or self-care (01) ==
LOC: LBN 15:27
PROVIDERS: PCP Family Medicine; Visit Provider Family Medicine
DX: R19.7 Diarrhea, unspecified (principal)
CPT/HCPCS: 87329; 87505; 87177

== ENCOUNTER 2022-02-12 20:33 | Observation (INO) | payer MEDICARE, MEDICAID, SELFPAY ==
[2022-02-12 20:50] VITALS: BP 149/61; PULSE 77; RESP 18; TEMP 36.3; O2SAT 95
--- NOTE | 2022-02-12 21:00 | DI.RAD_ITS ---
Exam(s) XR CHEST 2V PA LATERAL EXAM: XR CHEST 2V PA LATERAL CLINICAL HISTORY: seizure TECHNIQUE: 2D digital imaging was performed of the chest. Two images were obtained. PA and lateral views were obtained. COMPARISON: CR XR CHEST 2V PA LATERAL from 12/07/2018 FINDINGS: Exam limited by patient positioning. MEDIASTINUM: Normal. HEART: Normal. PULMONARY VASCULATURE: Normal. LUNGS: Clear. PLEURAL SPACE: No pleural effusion or pneumothorax. BONE:Within normal limits for the patient's age. OTHER FINDINGS:Normal. IMPRESSION: No acute pulmonary findings. DATA REPOSITORY: RADIATION DOSE DELIVERED:
--- NOTE | 2022-02-12 21:00 | RT.EKG_ITS ---
APPROVED REPORT Exam: Resting ECG Reason for Exam: seizure Patient Location: E HR:78 bpm ECG Measurements Heart Rate 78 AXIS OR 136 P 56 QRSd 86 QRS 57 QT 369 T 56 QTc 421 Conclusion Sinus rhythm...normal P axis, V-rate 60- 99
[2022-02-12 21:52] LABS: Bilirubin Negative (Negative); Blood Trace-intact (Negative); Clarity Cloudy (Clear); Glucose Negative (Negative); Ketones Negative (Negative); Leukocyte Esterase Small (Negative); Nitrite Negative (Negative); Urobilinogen 0.2 EU/dL (Up TO 0.2)
[2022-02-12 21:53] LABS: Abs Immature Grans 0.03 10^3/uL (0.0-0.06); Absolute Basophil Count 0.01 10^3/uL (0.0-0.2); Absolute Lymphocyte Count 1.28 10^3/uL (1.2-3.4); Absolute Monocyte Count 0.37 10^3/uL (0.1-0.8); Basophils % 0.2; HCT 36.3 % (36.0-46.0); HGB 12.3 g/dL (11.2-15.7); Immature Grans % 0.5; Lymphocytes % 19.7; MCHC 33.9 % (32.0-36.0); MCV 83 fL (80-95); MPV 9.3 fL (8.0-11.0); Monocytes % 5.7; Neutrophils % 73.9; Platelet Count 254 10^3/uL (130-400); RDW 12.4 % (11.7-14.6); RDW-SD 37.4 fL; WBC 6.49 10^3/uL (4.4-10.8)
[2022-02-12 22:07] LABS: ALT 26 U/L (14-59); AST 14 U/L (15-37); Albumin 3.9 g/dL (3.4-5.0); Alkaline Phosphatase 91 U/L (46-116); Anion Gap 8.8 mmol/L (3-11); BUN 12 mg/dL (7-18); Bilirubin, Total 0.3 mg/dL (0.2-1.0); CO2 27.2 mmol/L (21.0-32.0); CREATININE 0.4 mg/dL (0.55-1.02); Calcium 8.4 mg/dL (8.5-10.1); Chloride 88 mmol/L (98-107); Glucose 105 mg/dL (74-106); Potassium 4.1 mmol/L (3.5-5.1); Total Protein 7.6 g/dL (6.4-8.2)
[2022-02-12 22:11] LABS: Bacteria Few HPF (Negative); C & S Indicated? Yes; Casts Negative LPF (Negative); Crystals Negative HPF (Negative); Epithelial Cells Few HPF (Negative); Mucus Negative (Negative); Sodium 124 mmol/L (136-145)
--- NOTE | 2022-02-12 22:45 | DI.CT_ITS ---
Exam(s) CT HEAD WO EXAM: CT HEAD WO CLINICAL HISTORY: recurrent seizures. TECHNIQUE: Imaging Protocol: Axial computed tomography images with coronal and sagittal reformatted images were created and reviewed COMPARISON: CT HEAD WITHOUT CONTRAST from 07/09/2016 FINDINGS: Ventricles and Extra axial spaces: Normal in size and morphology for the patient's age. Hemorrhage: None. Cerebral parenchyma: No evidence of an acute territorial infarct. Midline shift: None. Brainstem/Cerebellum: Normal. Calvarium: Normal. Visualized Paranasal sinuses/Mastoids: Clear. Soft Tissues: Unremarkable. IMPRESSION: No acute intracranial process. RADIATION DOSE DELIVERED: 833.5mGy.cm Total DLP DATA REPOSITORY: All CT scans at this facility are submitted to the National Radiology Data Registry (NRDR) Dose Index Registry (DIR) with the [employer] (A[employer]). RADIATION OPTIMIZATION: All CT scans at this facility use at least one of these dose optimization te chniques: automated exposure control; mA and/or kV adjustment per patient size (includes targeted exa ms where dose is matched to clinical indication); or iterative reconstruction.
--- NOTE | 2022-02-12 22:56 | W.ED.GENAD ---
Discharge Plan Disposition Patient Disposition: [facility] INPATIENT Discharge Details Clinical Impression: Hyponatremia, Cerebral palsy, Seizure disorder, Obstructive sleep apnea syndrome Admit Date/Time: 02/12/22 23:06 Admit Provider: Agusto Herring Attending Provider: Agusto Herring Primary Care Provider: Luis Manuel Blanca ED Provider: Yuly Willoughby Discharge Data Discharge Date/Time-TO BE ENTERED AT DEPARTURE: 02/13/22 00:29 Medical Decision Making At time of my assessment patient is reportedly at her neurologic baseline per her guardian in the room Patient is full CODE STATUS reportedly. She is maintaining her airway and has stable vital She has not passed exophthalmos assessment Her sodium was noted to be 124, over the past year her sodium has been low in the past that seems Patient with mild hypochloremia Discussed with Dr. Celeste who is concerned that the Trileptal may be causing hyponatremia, DC Trileptal, give a 20 mg/kg loading dose of Keppra Start patient on Zonegran 100 mg in the morning 200 mg in the evening Patient's guardian is agreeable to patient being admitted Vitals remained stable No evidence of infectious etiology of patient's recurrent seizures, no seizures noted in the emergency department Dr Herring to admit pt, requests head ct, pending at this time Medical Records Medical records reviewed: Yes I reviewed the patient's medical records. Lab Data Lab results reviewed: Yes I reviewed the patient's lab results. ECG Data Prior ECG tracings: available for review HPI General Date/Time Provider Initiated Documentation: 02/12/22 20:34. HPI Narrative: This 61-year-old female with a history of diarrhea, hyponatremia, cerebral palsy, epilepsy presents with report of 4 seizures today. 1 seizure at 2, 3, 430, and 530. Patient received 4 mg of Ativan at the time. Family was concerned regarding recurrent seizures. Baseline for patient is 1 seizure a week. Concern with infectious etiology of symptoms per guardian. Denies any recent infectious signs or symptoms. Denies any change in medication. Receives all of her baseline medications. Called [facility] who recommended she be evaluated in an emergency department. Related Data Home Medications Medication Instructions Recorded Confirmed clotrimazole-betamethasone 1 1 applic topical BID prn #30 grams 01/11/19 02/12/22 %-0.05 % topical cream diazepam 12.5 mg-15 mg-17.5 mg-20 20 mg IN as directed PRN seizure 01/11/19 02/12/22 mg rectal kit (Diastat AcuDial) activity ##1 cannabidiol 100 mg/mL oral See Rx Instructions PO BID 09/04/19 02/12/22 solution (Epidiolex) midazolam 5 mg/spray (0.1 mL) 2.5 mg intranasal DAILY PRN 09/04/19 02/12/22 nasal spray oxcarbazepine 300 mg tablet 300 mg PO DAILY 10/05/20 02/12/22 oxcarbazepine 300 mg tablet 600 mg PO BID 10/05/20 02/12/22 (Trileptal) phenobarbital 60 mg tablet 120 mg PO QPM 10/05/20 02/13/22 ondansetron HCl 4 mg tablet 4 mg PO q 8 hr prn #15 tabs 12/14/20 02/12/22 (Zofran) lorazepam 1 mg tablet 1 - 4 mg PO DAILY PRN seizure #30 05/31/21 02/12/22 tabs sertraline 100 mg tablet 100 mg PO .AM #90 tab-caps 06/14/21 02/12/22 diazepam 10 mg/spray (0.1 mL) 10 mg intranasal PRN PRN 09/15/21 02/12/22 nasal spray loratadine 10 mg tablet 10 mg PO DAILY PRN #90 tab-caps 09/15/21 02/12/22 melatonin 3 mg tablet 6 mg PO DAILY #180 tabs 09/15/21 02/12/22 nystatin 100,000 unit/gram topical 1 applic topical BID PRN #60 grams 09/15/21 02/12/22 powder rufinamide 400 mg tablet (Banzel) 800 - 1,200 mg PO TID #240 tabs 09/15/21 02/12/22 atorvastatin 40 mg tablet (Lipitor) 40 mg PO HS #90 tab-caps 09/22/21 11/19/21 cholecalciferol (vitamin D3) 25 1,000 unit PO BID #180 tab-caps 09/22/21 02/12/22 mcg (1,000 unit) capsule loperamide 2 mg capsule (Imodium 2 mg PO Q4H PRN loose stool #30 12/27/21 02/12/22 A-D) caps esomeprazole magnesium 40 mg 40 mg PO DAILY #90 caps 01/07/22 02/12/22 capsule,delayed release (Nexium) acetaminophen 500 mg tablet 500 mg PO BID #180 tabs 01/21/22 (Tylenol Extra Strength) quetiapine 50 mg tablet (Seroquel) 50 mg PO HS #90 tab-caps 02/03/22 02/12/22 ferrous gluconate 324 mg (36 mg 324 mg PO QAM 02/12/22 02/12/22 iron) tablet clobazam 20 mg tablet (Onfi) 20 mg PO QPM 02/13/22 02/13/22 Previous Rx's Medication Instructions Recorded clotrimazole-betamethasone 1 1 applic topical BID prn #30 grams 01/11/19 %-0.05 % topical cream diazepam 12.5 mg-15 mg-17.5 mg-20 20 mg IN as directed PRN seizure 01/11/19 mg rectal kit (Diastat AcuDial) activity ##1 ondansetron HCl 4 mg tablet 4 mg PO q 8 hr prn #15 tabs 12/14/20 (Zofran) lorazepam 1 mg tablet 1 - 4 mg PO DAILY PRN seizure #30 05/31/21 tabs sertraline 100 mg tablet 100 mg PO .AM #90 tab-caps 06/14/21 loratadine 10 mg tablet 10 mg PO DAILY PRN #90 tab-caps 09/15/21 melatonin 3 mg tablet 6 mg PO DAILY #180 tabs 09/15/21 nystatin 100,000 unit/gram topical 1 applic topical BID PRN #60 grams 09/15/21 powder rufinamide 400 mg tablet (Banzel) 800 - 1,200 mg PO TID #240 tabs 09/15/21 atorvastatin 40 mg tablet (Lipitor) 40 mg PO HS #90 tab-caps 09/22/21 cholecalciferol (vitamin D3) 25 1,000 unit PO BID #180 tab-caps 09/22/21 mcg (1,000 unit) capsule loperamide 2 mg capsule (Imodium 2 mg PO Q4H PRN loose stool #30 12/27/21 A-D) caps esomeprazole magnesium 40 mg 40 mg PO DAILY #90 caps 01/07/22 capsule,delayed release (Nexium) acetaminophen 500 mg tablet 500 mg PO BID #180 tabs 01/21/22 (Tylenol Extra Strength) quetiapine 50 mg tablet (Seroquel) 50 mg PO HS #90 tab-caps 02/03/22 Allergies Allergy/AdvReac Type Severity Reaction Status Date / Time amoxicillin trihydrate Allergy Intermediate SKIN RASH Verified 02/12/22 20:55 [From Augmentin] potassium clavulanate Allergy Intermediate SKIN RASH Verified 02/12/22 20:55 [From Augmentin] risedronate sodium AdvReac Mild GI SX Verified 02/12/22 20:55 [From Actonel] General Stated Complaint: Seizure GIRMA: 3 Review of Systems All systems reviewed & are unremarkable except as noted in HPI and below PFSH All Active Problems (Updated 02/13/22 @ 20:32 by BARRY Heller) Hyponatremia (Acute) Obstructive sleep apnea syndrome (Acute 07/06/07) severe [facility]; CPAP Cerebral palsy (Acute) Significant cognitive delay. Seizure disorder (Acute 11/15/12) Break-thru seizures. Medical History Acquired deformity of right knee (03/25/16) Edema Edema lower extremities Gastroesophageal reflux disease Gastroesophageal reflux disease 03/20 EGD duodenal ulcer and gastritis (? due to Depakote) vomiting Headache History of surgery Appendectomy. Cholecystectomy. Vagal nerve stimulator. Recurrent lower extremity fractures - history of ORIF of her ankle. Hypercholesterolemia Hyperlipidemia Hyperlipidemia (07/05/11) Iron deficiency anemia Iron deficiency anemia (03/06/14) Mental deficiency Obesity Osteoporosis 2003 T-2.7; 2005 T-2.4; 2007 stable at T-2.4 Polyp of colon (07/06/07) tubular adenoma Seizure disorder Surgical History Cholecystectomy (~2003) EGD - MAC (07/12/14) Fracture, Open Treatment RIGHT ANKLE History of open reduction and internal fixation (ORIF) procedure Family History Mother Essential hypertension Diabetes TYPE II Dementia Hyperlipidemia Father , late 80's Essential hypertension Diabetes TYPE II Heart disease Hyperlipidemia Brother Diabetes Heart disease Hyperlipidemia Brother No problems noted. Social History Smoking/Tobacco Use Status: Never Smoking risk assessment performed?: Yes Alcohol Intake: never Drug use: Never Substance use type: does not use Caregiver/Support person: Yes Household members: caregiver Housing: house Do you need help understanding health information?: Always Pets and animals: Yes Pets and animals: cat(s) and dog(s) Sexually active: No What is your relationship status?: never Panel score (0-1 are the most socially isolated patients): 0 Seatbelt use: always Additional Social history: unable to assess Exam Const General: cooperative and no acute distress Orientation: alert Eyes Pupils: PERRL Resp Effort & Inspection: normal respiratory effort Auscultation: clear to auscultation bilaterally Cardio Rate: regular rate Rhythm: regular rhythm GI Inspection: normal to inspection Skin General skin exam: no rashes or lesions noted Neuro General: patient alert Extrem Other: GCS 15 Course Vital Signs Vital signs: Vital Signs Temperature 36.3 C L 02/12/22 20:50 Pulse 77 02/12/22 20:50 Respiratory Rate 18 02/12/22 20:50 Blood Pressure 149/61 H 02/12/22 20:50 Pulse Oximetry 95 02/12/22 20:50 Temperature 36.3 C L 02/12/22 20:50 Temperature Source Skin 02/12/22 20:50 Pulse 77 02/12/22 20:50 Respiratory Rate 18 02/12/22 20:50 Respiratory Effort Non-Labored 02/12/22 21:08 Respiratory Depth Normal 02/12/22 21:08 Respiratory Pattern Normal 02/12/22 21:08 Blood Pressure 149/61 H 02/12/22 20:50 Pulse Oximetry 95 02/12/22 20:50 Pain Level 0 02/12/22 20:50 Lab/Test Results Lab/Test Results: 02/12/22 21:46 Urine - Reflex from Ua Urine Culture - Pending Laboratory Tests Range/Units 02/12/22 02/12/22 02/12/22 21:46 21:46 21:46 WBC (4.4-10.8) 10^3/uL 6.49 RBC (3.93-5.22) 10^6/uL 4.40 Hgb (11.2-15.7) g/dL 12.3 Hct (36.0-46.0) % 36.3 MCV (80-95) fL 83 MCH (27.0-33.0) pg 28.0 MCHC (32.0-36.0) % 33.9 RDW (11.7-14.6) % 12.4 Plt Count (130-400) 10^3/uL 254 MPV (8.0-11.0) fL 9.3 Immature Gran % 0.5 Neutrophils % 73.9 Lymphocytes % 19.7 Monocytes % 5.7 Eosinophils % 0.0 Basophils % 0.2 Nucleated RBC % (0.0-0.3) % 0.0 Absolute Neutrophils (1.2-6.7) 10^3/uL 4.80 Absolute Lymphocytes (1.2-3.4) 10^3/uL 1.28 Absolute Monocytes (0.1-0.8) 10^3/uL 0.37 Absolute Eosinophils (0.0-0.7) 10^3/uL 0.00 Absolute Basophils (0.0-0.2) 10^3/uL 0.01 Sodium (136-145) mmol/L 124 L Potassium (3.5-5.1) mmol/L 4.1 Chloride (98-107) mmol/L 88 L Carbon Dioxide (21.0-32.0) mmol/L 27.2 Anion Gap (3-11) mmol/L 8.8 BUN (7-18) mg/dL 12 Creatinine (0.55-1.02) mg/dL 0.4 L Estimated GFR/1.73 m2 (mL/min/1.73m2) >= 60.00 Glucose (74-106) mg/dL 105 Calcium (8.5-10.1) mg/dL 8.4 L Magnesium (1.8-2.4) mg/dL 2.0 Total Bilirubin (0.2-1.0) mg/dL 0.3 AST (15-37) U/L 14 L ALT (14-59) U/L 26 Alkaline Phosphatase (46-116) U/L 91 Total Protein (6.4-8.2) g/dL 7.6 Albumin (3.4-5.0) g/dL 3.9 Urine Color (Yellow) Yellow Urine Clarity (Clear) Cloudy Urine pH (5-8) 8.0 Ur Specific [place] (1.005-1.025) 1.020 Urine Protein (Negative) mg/dL Negative Urine Ketones (Negative) mg/dL Negative Urine Blood (Negative) Trace-intact H Urine Nitrite (Negative) Negative Urine Bilirubin (Negative) Negative Urine Urobilinogen (Up TO 0.2) EU/dL 0.2 Ur Leukocyte Esterase (Negative) Small H Urine RBC (0-2) HPF 3-5 H Urine WBC (0-5) HPF 3-5 Ur Epithelial Cells (Negative) HPF Few Urine Crystals (Negative) HPF Negative Urine Bacteria (Negative) HPF Few Urine Casts (Negative) LPF Negative Urine Mucus (Negative) Negative Ur Culture Indicated? Yes Urine Glucose (Negative) mg/dL Negative
[2022-02-12 23:04] LABS: Source Nasal/Nares
--- NOTE | 2022-02-12 23:14 | W.PM.HP.N ---
Date of service: 02/12/22 Time of Service: 23:14 Assessment and Plan Assessment and plan (1) Diarrhea: Status: Acute Assessment and plan: Patient has a history of having had diarrhea about 7 days ago. Caregivers attempted fluid resuscitation with Gatorade type liquid. Stools have been more controlled lately. The patient's oral intake has been diminished lately. (2) Hyponatremia: Status: Acute Assessment and plan: Sodium is low at 124. Apparently Trileptal can cause hyponatremia. Per [facility] neurology will discontinue Trileptal and start on Zonegran as per HPI. She is to receive a loading dose of Keppra but will not continue on Keppra. Per neurology Keppra has caused behavioral disturbances in the past. Will monitor for further seizure activity, seizure precautions. (3) Epilepsy: Status: Deleted Assessment and plan: Longstanding history of epilepsy on multiple medications including phenobarbital, clobazam, oxcarbazepine, quetiapine, rufinamide. Will DC oxcarbazepine, start Zonegran 100 mg in the a.m. 200 mg in the p.m. Keppra loading dose at 20 mg/kg as per [facility] neurology. (4) Obstructive sleep apnea syndrome: Status: Acute Assessment and plan: Patient is on a home CPAP machine which the caregiver is having brought in. (5) Cerebral palsy: Status: Active Assessment and plan: Longstanding cerebral palsy. She requires total care and has [id number] caregivers for the last 27 years. (6) Seizure disorder: Status: Acute Assessment and plan: Breakthrough seizures with plan as outlined above. History of Present Illness History of Present Illness Chief Complaint: Breakthrough seizures Narrative: This is a 61-year-old woman with cerebral palsy. She has been chronically disabled since . She has had epilepsy for many years. She is on multiple seizure medications. She is followed by neurology at [facility]. She has [id number] caregivers. Today her caregiver noticed for distinct breakthrough seizures, 2 PM, 3 PM, 4 PM, 5:30 PM. At baseline she has about 1 breakthrough seizure per week. She has had some difficulty with intermittent bouts of diarrhea the work-up for which has thus far been negative. The caregiver notes that they had been giving large amounts of Gatorade liquid to help compensate for the diarrhea but this has not been the case for about a week. At this point it is a struggle to get her to drink. The patient has had a total of 4 mg of lorazepam, 1 mg for each breakthrough seizure. [facility] neurology was consulted by phone this evening, Dr. Celeste. The plan is to give her a Keppra load and discontinue Trileptal. Start Zonegran 100 mg in the a.m., 200 mg in the p.m. We will admit to observation. Review of Systems Narrative: Patient is largely nonverbal. Her caregiver is at the bedside. She feels she is about at her baseline though she has had the 4 mg of lorazepam and has some sonorous breathing. Patient has not been ill according to the caregiver. She has not had upper respiratory symptoms. The diarrhea has resolved itself in the last 7 days or so. She feels her appetite is off a little. There are no specific complaints that she can relate at this time. PFSH All Active Problems Diarrhea (Acute) Hyponatremia (Acute) Obstructive sleep apnea syndrome (Acute 07/06/07) severe [facility]; CPAP Cerebral palsy (Active) Significant cognitive delay. Seizure disorder (Acute 11/15/12) Break-thru seizures. Medical History Acquired deformity of right knee (03/25/16) Edema Edema lower extremities Gastroesophageal reflux disease Gastroesophageal reflux disease 03/20 EGD duodenal ulcer and gastritis (? due to Depakote) vomiting Headache History of surgery Appendectomy. Cholecystectomy. Vagal nerve stimulator. Recurrent lower extremity fractures - history of ORIF of her ankle. Hypercholesterolemia Hyperlipidemia Hyperlipidemia (07/05/11) Iron deficiency anemia Iron deficiency anemia (03/06/14) Mental deficiency Obesity Osteoporosis 2003 T-2.7; 2005 T-2.4; 2007 stable at T-2.4 Polyp of colon (07/06/07) tubular adenoma Seizure disorder Surgical History Cholecystectomy (~2003) EGD - MAC (07/12/14) Fracture, Open Treatment RIGHT ANKLE History of open reduction and internal fixation (ORIF) procedure Family History Mother Essential hypertension Diabetes TYPE II Dementia Hyperlipidemia Father , late 80's Essential hypertension Diabetes TYPE II Heart disease Hyperlipidemia Brother Diabetes Heart disease Hyperlipidemia Brother No problems noted. Social History Smoking/Tobacco Use Status: Never Smoking risk assessment performed?: Yes Alcohol Intake: never Drug use: Never Substance use type: does not use Caregiver/Support person: Yes Household members: caregiver Housing: house Do you need help understanding health information?: Always Pets and animals: Yes Pets and animals: cat(s) and dog(s) Sexually active: No What is your relationship status?: never Panel score (0-1 are the most socially isolated patients): 0 Seatbelt use: always Additional Social history: unable to assess Meds Allergies and Home Medications Allergies Allergy/AdvReac Type Severity Reaction Status Date / Time amoxicillin trihydrate Allergy Intermediate SKIN RASH Verified 02/12/22 20:55 [From Augmentin] potassium clavulanate Allergy Intermediate SKIN RASH Verified 02/12/22 20:55 [From Augmentin] risedronate sodium AdvReac Mild GI SX Verified 02/12/22 20:55 [From Actonel] Home Medications Medication Instructions Recorded Confirmed Type Hinged Knee Brace u miscellaneous DAILY ##1 07/13/15 12/12/18 Clinic clotrimazole-betamethasone 1 1 applic topical BID prn #30 grams 01/11/19 02/12/22 Rx %-0.05 % topical cream diazepam 12.5 mg-15 mg-17.5 mg-20 20 mg MO as directed PRN seizure 01/11/19 02/12/22 Rx mg rectal kit (Diastat AcuDial) activity ##1 cannabidiol 100 mg/mL oral See Rx Instructions PO BID 09/04/19 02/12/22 History solution (Epidiolex) midazolam 5 mg/spray (0.1 mL) 2.5 mg intranasal DAILY PRN 09/04/19 02/12/22 History nasal spray clobazam 20 mg tablet 20 mg PO DAILY #90 tabs 09/09/20 02/12/22 Rx oxcarbazepine 300 mg tablet 300 mg PO DAILY 10/05/20 02/12/22 History oxcarbazepine 300 mg tablet 600 mg PO BID 10/05/20 02/12/22 History (Trileptal) phenobarbital 60 mg tablet 120 mg PO HS sedation 10/05/20 02/12/22 History ondansetron HCl 4 mg tablet 4 mg PO q 8 hr prn #15 tabs 12/14/20 02/12/22 Rx (Zofran) lorazepam 1 mg tablet 1 - 4 mg PO DAILY PRN seizure #30 05/31/21 02/12/22 Rx tabs sertraline 100 mg tablet 100 mg PO .AM #90 tab-caps 06/14/21 02/12/22 Rx diazepam 10 mg/spray (0.1 mL) 10 mg intranasal PRN PRN 09/15/21 02/12/22 History nasal spray loratadine 10 mg tablet 10 mg PO DAILY PRN #90 tab-caps 09/15/21 02/12/22 Rx melatonin 3 mg tablet 6 mg PO DAILY #180 tabs 09/15/21 02/12/22 Rx nystatin 100,000 unit/gram topical 1 applic topical BID PRN #60 grams 09/15/21 02/12/22 Rx powder rufinamide 400 mg tablet (Banzel) 800 - 1,200 mg PO TID #240 tabs 09/15/21 02/12/22 Rx atorvastatin 40 mg tablet (Lipitor) 40 mg PO HS #90 tab-caps 09/22/21 11/19/21 Rx cholecalciferol (vitamin D3) 25 1,000 unit PO BID #180 tab-caps 09/22/21 02/12/22 Rx mcg (1,000 unit) capsule loperamide 2 mg capsule (Imodium 2 mg PO Q4H PRN loose stool #30 12/27/21 02/12/22 Rx A-D) caps esomeprazole magnesium 40 mg 40 mg PO DAILY #90 caps 01/07/22 02/12/22 Rx capsule,delayed release (Nexium) acetaminophen 500 mg tablet 500 mg PO BID #180 tabs 01/21/22 Rx (Tylenol Extra Strength) quetiapine 50 mg tablet (Seroquel) 50 mg PO HS #90 tab-caps 02/03/22 02/12/22 Rx ferrous gluconate 324 mg (36 mg 324 mg PO QAM 02/12/22 02/12/22 History iron) tablet Exam Narrative Exam Narrative: On exam patient is an obviously disabled person. She turns her head and looks at me, points to her watch, turns to her caregiver whom she calls nathan then falls asleep. She has sonorous breathing when asleep. She appears to move her upper extremities with purposeful movement. Her legs did not move in a purposeful manner during my exam. She had no respiratory difficulty. Her lung sounds were generally clear in the anterior portion. Her heart sounds were regular, there was no significant murmur. Her abdomen is quite protuberant, rounded. There is no tenderness to palpation of the abdomen in all 4 quadrants. Patient has a diaper. No seizure activity was noted during my exam. Results Labs Result diagrams: 02/12/22 21:46 02/12/22 21:46 Labs: Laboratory Results - last 24 hr 02/12/22 02/12/22 02/12/22 21:46 21:46 21:46 WBC 6.49 RBC 4.40 Hgb 12.3 Hct 36.3 MCV 83 MCH 28.0 MCHC 33.9 RDW 12.4 Plt Count 254 MPV 9.3 Immature Gran % 0.5 Neutrophils % 73.9 Lymphocytes % 19.7 Monocytes % 5.7 Eosinophils % 0.0 Basophils % 0.2 Nucleated RBC % 0.0 Absolute Neutrophils 4.80 Absolute Lymphocytes 1.28 Absolute Monocytes 0.37 Absolute Eosinophils 0.00 Absolute Basophils 0.01 Sodium 124 L Potassium 4.1 Chloride 88 L Carbon Dioxide 27.2 Anion Gap 8.8 BUN 12 Creatinine 0.4 L Estimated GFR/1.73 m2 >= 60.00 Glucose 105 Calcium 8.4 L Magnesium 2.0 Total Bilirubin 0.3 AST 14 L ALT 26 Alkaline Phosphatase 91 Total Protein 7.6 Albumin 3.9 Urine Color Yellow Urine Clarity Cloudy Urine pH 8.0 Ur Specific [place] 1.020 Urine Protein Negative Urine Ketones Negative Urine Blood Trace-intact H Urine Nitrite Negative Urine Bilirubin Negative Urine Urobilinogen 0.2 Ur Leukocyte Esterase Small H Urine RBC 3-5 H Urine WBC 3-5 Ur Epithelial Cells Few Urine Crystals Negative Urine Bacteria Few Urine Casts Negative Urine Mucus Negative Ur Culture Indicated? Yes Urine Glucose Negative COVID-19 Source 02/12/22 22:56 WBC RBC Hgb Hct MCV MCH MCHC RDW Plt Count MPV Immature Gran % Neutrophils % Lymphocytes % Monocytes % Eosinophils % Basophils % Nucleated RBC % Absolute Neutrophils Absolute Lymphocytes Absolute Monocytes Absolute Eosinophils Absolute Basophils Sodium Potassium Chloride Carbon Dioxide Anion Gap BUN Creatinine Estimated GFR/1.73 m2 Glucose Calcium Magnesium Total Bilirubin AST ALT Alkaline Phosphatase Total Protein Albumin Urine Color Urine Clarity Urine pH Ur Specific [place] Urine Protein Urine Ketones Urine Blood Urine Nitrite Urine Bilirubin Urine Urobilinogen Ur Leukocyte Esterase Urine RBC Urine WBC Ur Epithelial Cells Urine Crystals Urine Bacteria Urine Casts Urine Mucus Ur Culture Indicated? Urine Glucose COVID-19 Source Nasal/Nares Last Vital Signs Temp 36.3 C L 02/12/22 20:50 Pulse 77 02/12/22 20:50 Resp 18 02/12/22 20:50 BP 149/61 H 02/12/22 20:50 Pulse Ox 95 02/12/22 20:50
--- NOTE | 2022-02-12 23:24 | DI.VRAD_ITS ---
PROCEDURE INFORMATION: Exam: XR Chest Exam date and time: 02/12/2022 10:31 PM Age: 61 years old Clinical indication: Seizure TECHNIQUE: Imaging protocol: Radiologic exam of the chest. Views: 2 views. COMPARISON: XR PORTABLE CHEST AP 10/05/2020 4:02 PM FINDINGS: Lungs: No alveolar infiltrate. Pleural spaces: No pleural fluid collection. No pneumothorax. Heart/Mediastinum: Stable cardiac silhouette. Bones/joints: Unremarkable for patient age. IMPRESSION: No active pulmonary disease. Dictated and Authenticated by: Dontrell Saini MD. Ordering:TERESA Emery MD
[2022-02-12 23:50] LABS: COVID-19 PCR Negative (Negative)
[2022-02-13] VITALS (11 sets, daily range): BP systolic 111–143; BP diastolic 61–81; PULSE 45–90; RESP 18–32; TEMP 35.8–37.4; O2SAT 82–99
--- NOTE | 2022-02-13 00:14 | DI.VRAD_ITS ---
PROCEDURE INFORMATION: Exam: CT Head Without Contrast Exam date and time: 02/12/2022 11:40 PM Age: 61 years old Clinical indication: Stroke-like symptoms; Altered mental status / memory loss TECHNIQUE: Imaging protocol: Computed tomography of the head without contrast. Other technique: STROKE PROTOCOL was implemented. COMPARISON: CT HEAD WITHOUT CONTRAST 07/09/2016 12:24 PM FINDINGS: Brain: No hemorrhage. Unremarkable white matter. No mass effect. Cerebral ventricles: No ventriculomegaly. Paranasal sinuses: Visualized sinuses are unremarkable. No fluid levels. Mastoid air cells: Visualized mastoid air cells are well aerated. Bones/joints: Unremarkable. No acute fracture. Soft tissues: Unremarkable. IMPRESSION: 1. No acute intracranial findings. 2. ASPECTS ([place] Stroke Program Early CT Score) = 10. Dictated and Authenticated by: Dontrell Saini MD. Ordering:TERESA Emery MD
[2022-02-13] MEDS: Normal Saline 1,000 ML 100 ML IV ×3 (02:34→20:57)
[2022-02-13 07:22] LABS: Abs Immature Grans 0.04 10^3/uL (0.0-0.06); Absolute Basophil Count 0.02 10^3/uL (0.0-0.2); Absolute Lymphocyte Count 1.43 10^3/uL (1.2-3.4); Absolute Monocyte Count 0.48 10^3/uL (0.1-0.8); Absolute Neutrophil Count 7.33 10^3/uL (1.2-6.7); Basophils % 0.2; HCT 35.9 % (36.0-46.0); HGB 11.9 g/dL (11.2-15.7); Immature Grans % 0.4; Lymphocytes % 15.4; MCH 28.1 pg (27.0-33.0); MCHC 33.1 % (32.0-36.0); MCV 85 fL (80-95); MPV 9.7 fL (8.0-11.0); Monocytes % 5.2; Neutrophils % 78.8; Platelet Count 258 10^3/uL (130-400); RBC 4.23 10^6/uL (3.93-5.22); RDW 12.4 % (11.7-14.6); RDW-SD 38.1 fL
[2022-02-13 07:25] LABS: Anion Gap 7.6 mmol/L (3-11); BUN 10 mg/dL (7-18); CO2 30.4 mmol/L (21.0-32.0); CREATININE 0.4 mg/dL (0.55-1.02); Calcium 8.3 mg/dL (8.5-10.1); Chloride 90 mmol/L (98-107); Glucose 89 mg/dL (74-106); Potassium 3.6 mmol/L (3.5-5.1); Sodium 128 mmol/L (136-145)
[2022-02-13] MEDS: Enoxaparin 40 MG/0.4 ML SYR SC (08:17)
[2022-02-13] MEDS: Zonisamide 100 MG CAP PO (08:17)
[2022-02-13] MEDS: Sertraline 100 MG TAB PO (08:17)
[2022-02-13] MEDS: Esomeprazole 40 MG CAPCR PO (08:17)
[2022-02-13] MEDS: Acetaminophen 325 MG TAB PO ×2 (08:19→21:04)
--- NOTE | 2022-02-13 10:45 | INITIAL_ITS ---
- If Service Date Differs Date of service: 02/13/22 Time of Service: 10:45 Care Management Initial Assess REASON FOR HOSPITALIZATION:: seizures PAST MEDICAL HISTORY/PAST SURGICAL HISTORY:: All Active Problems. Diarrhea (Acute). Hyponatremia (Acute). Obstructive sleep apnea syndrome (Acute 07/06/07). severe [facility]; CPAP. Cerebral palsy (Active). Significant cognitive delay. Seizure disorder (Acute 11/15/12). Break-thru seizures. Medical History. Acquired deformity of right knee (03/25/16). Edema. Edema. lower extremities. Gastroesophageal reflux disease. Gastroesophageal reflux disease. 03/20 EGD duodenal ulcer and gastritis. (? due to Depakote). vomiting. Headache. History of surgery. Appendectomy. Cholecystectomy. Vagal nerve stimulator. Recurrent lower extremity fractures - history of ORIF of her ankle. Hypercholesterolemia. Hyperlipidemia. Hyperlipidemia (07/05/11). Iron deficiency anemia. Iron deficiency anemia (03/06/14). Mental deficiency. Obesity. Osteoporosis. 2003 T-2.7; 2005 T-2.4; 2007 stable at T-2.4. Polyp of colon (07/06/07). tubular adenoma. Seizure disorder. Surgical History. Cholecystectomy (~2003). EGD - MAC (07/12/14). Fracture, Open Treatment. RIGHT ANKLE. History of open reduction and internal fixation (ORIF) procedure PREVIOUS FUNCTIONAL STATUS/SOCIAL/FAMILY SUPPORTS:: Cinthya lives in [facility] in the home of a shared living provider, Lulu Arellano ([phone]). She has a guardian, Fifi Jonathan ([phone]). She requires a multimedia specialist caregiver to assist her with her ADL's. CURRENT FUNCTIONAL STATUS:: Cinthya was sitting up in bed when CM met with her. Her two main caregivers were both in the room visiting, Lulu and Crescencio. Lulu stated that they each take Cinthya for a week at a time, and she has been caring for her for almost 28 years. Cinthya is mostly non verbal, but can say yes/no, and says other words that her caregivers understand. Due to her communication and anxiety about being in the hospital, one of her caregivers will stay with her continuously. They have a w/c van which they use to transport Cinthya, and will drive her home when she is discharged. Per report, she will be observed after a medication change overnight, and will likely be ready for discharge tomorrow. CM will continue to follow. ADVANCE DIRECTIVES:: Not on file. Has patient been provided with info about the portal/API?: Yes Did the patient sign up for the portal?: No CODE STATUS:: Full Code INSURANCE COVERAGE / FINANCIAL ISSUES:: [facility] CURRENT HOME/COMMUNITY SERVICES/EQUIPMENT:: Citnhya lives with a multimedia specialist caregiver, Lulu. PRIMARY CARE PHYSICIAN:: Luis Manuel Blanca POTENTIAL DISCHARGE NEEDS:: follow up appointments. PATIENT/FAMILY EDUCATION NEEDS:: Review discharge instructions with caregiver, specifically regarding change in medications, discussion of self care needs including ask me three. ANTICIPATED BARRIERS TO DISCHARGE:: none TRANSPORTATION:: Via w/c van by caregiver PLAN:: Anticipate Cinthya will return home into the care of her shared living provider/multimedia specialist caregiver, who will transport her via private vehicle. She will follow up with her PCP and discharge plan of care. CM will continue to follow.
--- NOTE | 2022-02-13 12:39 | W.PM.PROGNOT ---
Date of Service Date of service: 02/13/22 Time of Service: 12:39 Assessment and Plan Assessment and plan (1) Hyponatremia: Status: Acute Assessment and plan: Sodium is up to 128 from 124. Apparently Trileptal can cause hyponatremia. Per [facility] neurology discontinued Trileptal and start on Zonegran as per HPI. Per neurology Keppra has caused behavioral disturbances in the past. Will monitor for further seizure activity, seizure precautions. (2) Epilepsy: Status: Deleted Assessment and plan: Longstanding history of epilepsy on multiple medications including phenobarbital, clobazam, oxcarbazepine, quetiapine, rufinamide. DC'd oxcarbazepine, started Zonegran 100 mg in the a.m. 200 mg in the p.m. (3) Diarrhea: Status: Resolved Assessment and plan: Patient has a history of having had diarrhea about 7 days ago. Caregivers attempted fluid resuscitation with Gatorade type liquid. Stools have been more controlled lately. The patient's oral intake has been diminished lately. (4) Obstructive sleep apnea syndrome: Status: Acute Assessment and plan: Patient is on a home CPAP machine which the caregiver is having brought in. (5) Cerebral palsy: Status: Active Assessment and plan: Longstanding cerebral palsy. She requires total care and has [id number] caregivers for the last 27 years. (6) Seizure disorder: Status: Acute Assessment and plan: Breakthrough seizures with plan as outlined above. Discussed with Dr Pineda Subjective Subjective Interval history since last seen: No changes, appears comfortable, no seizures since admission. Exam Narrative Exam Narrative: head of partner development is in the room. Cinthya is awake, alert, looking at her watch (one on each arm). She has had no respiratory difficulty. Her lung sounds were generally clear in the anterior portion. Her heart sounds were regular, there was no significant murmur. Her abdomen is quite protuberant, rounded, soft. There is no tenderness to palpation of the abdomen in all 4 quadrants. Patient has a diaper. Objective Last Vital Signs Temp 36.8 C 02/13/22 11:46 Pulse 45 L 02/13/22 11:46 Resp 18 02/13/22 11:46 BP 127/81 02/13/22 11:46 Pulse Ox 99 02/13/22 11:46 Laboratory Results - last 24 hr 02/12/22 02/12/22 02/12/22 21:46 21:46 21:46 WBC 6.49 RBC 4.40 Hgb 12.3 Hct 36.3 MCV 83 MCH 28.0 MCHC 33.9 RDW 12.4 Plt Count 254 MPV 9.3 Immature Gran % 0.5 Neutrophils % 73.9 Lymphocytes % 19.7 Monocytes % 5.7 Eosinophils % 0.0 Basophils % 0.2 Nucleated RBC % 0.0 Absolute Neutrophils 4.80 Absolute Lymphocytes 1.28 Absolute Monocytes 0.37 Absolute Eosinophils 0.00 Absolute Basophils 0.01 Sodium 124 L Potassium 4.1 Chloride 88 L Carbon Dioxide 27.2 Anion Gap 8.8 BUN 12 Creatinine 0.4 L Estimated GFR/1.73 m2 >= 60.00 Glucose 105 Calcium 8.4 L Magnesium 2.0 Total Bilirubin 0.3 AST 14 L ALT 26 Alkaline Phosphatase 91 Total Protein 7.6 Albumin 3.9 Urine Color Yellow Urine Clarity Cloudy Urine pH 8.0 Ur Specific Causey 1.020 Urine Protein Negative Urine Ketones Negative Urine Blood Trace-intact H Urine Nitrite Negative Urine Bilirubin Negative Urine Urobilinogen 0.2 Ur Leukocyte Esterase Small H Urine RBC 3-5 H Urine WBC 3-5 Ur Epithelial Cells Few Urine Crystals Negative Urine Bacteria Few Urine Casts Negative Urine Mucus Negative Ur Culture Indicated? Yes Urine Glucose Negative COVID-19 Source SARS-CoV-2 (PCR) 02/12/22 02/13/22 02/13/22 22:56 06:45 06:45 WBC 9.30 RBC 4.23 Hgb 11.9 Hct 35.9 L MCV 85 MCH 28.1 MCHC 33.1 RDW 12.4 Plt Count 258 MPV 9.7 Immature Gran % 0.4 Neutrophils % 78.8 Lymphocytes % 15.4 Monocytes % 5.2 Eosinophils % 0.0 Basophils % 0.2 Nucleated RBC % 0.0 Absolute Neutrophils 7.33 H Absolute Lymphocytes 1.43 Absolute Monocytes 0.48 Absolute Eosinophils 0.00 Absolute Basophils 0.02 Sodium 128 L Potassium 3.6 Chloride 90 L Carbon Dioxide 30.4 Anion Gap 7.6 BUN 10 Creatinine 0.4 L Estimated GFR/1.73 m2 >= 60.00 Glucose 89 Calcium 8.3 L Magnesium Total Bilirubin AST ALT Alkaline Phosphatase Total Protein Albumin Urine Color Urine Clarity Urine pH Ur Specific Causey Urine Protein Urine Ketones Urine Blood Urine Nitrite Urine Bilirubin Urine Urobilinogen Ur Leukocyte Esterase Urine RBC Urine WBC Ur Epithelial Cells Urine Crystals Urine Bacteria Urine Casts Urine Mucus Ur Culture Indicated? Urine Glucose COVID-19 Source Nasal/Nares SARS-CoV-2 (PCR) Negative
[2022-02-13] MEDS: Zonisamide 100 MG CAP 200 MG PO (21:01)
[2022-02-13] MEDS: QUEtiapine 50 MG TAB PO (21:04)
[2022-02-13] MEDS: Melatonin 3 MG TAB 6 MG PO (21:16)
--- NOTE | 2022-02-14 00:44 | NUR.NOTE ---
Nursing Note: Changed continuous oximetry monitoring device to Telemetry Box with continuous Sp02 monitoring. Plate Glass Grinder requested to call M/S Floor if Pt has Apneic prolonged episodes. CPAP is on since 22:00 with no needs for Bleed in 02 at this time. Pt is resting comfortably on her right side. Caregiver at bedside informed of this change.
[2022-02-14 02:30] VITALS: O2SAT 98
[2022-02-14] MEDS: Normal Saline 1,000 ML 100 ML IV (05:25)
[2022-02-14] MEDS: Zonisamide 100 MG CAP PO (07:18)
[2022-02-14] MEDS: Esomeprazole 40 MG CAPCR PO (07:18)
[2022-02-14] MEDS: Enoxaparin 40 MG/0.4 ML SYR SC (07:19)
[2022-02-14] MEDS: Sertraline 100 MG TAB PO (07:19)
[2022-02-14] MEDS: Acetaminophen 325 MG TAB PO (07:30)
[2022-02-14 08:00] VITALS: BP 144/81; PULSE 81; RESP 20; TEMP 36.6; O2SAT 95
--- NOTE | 2022-02-14 11:42 | W.PM.DS.N ---
Date of service: 02/14/22 Time of Service: 11:42 DS: Diagnosis Discharge Diagnosis (1) Hyponatremia: Status: Acute Asessment and Plan: 128 today - resolving (2) Epilepsy: Status: Deleted Asessment and Plan: Chronic - continue medication and monitor for sz activity (3) Diarrhea: Status: Resolved (4) Obstructive sleep apnea syndrome: Status: Chronic Asessment and Plan: Chronic (5) Cerebral palsy: Status: Chronic Asessment and Plan: Chronic (6) Seizure disorder: Status: Chronic Asessment and Plan: Medication change - no sz since admitted Discharge Plan Disposition Patient Disposition: HOME Condition: Stable Discharge Details Reason For Visit: Seizures Admit Date/Time: 02/12/22 23:06 Admit Provider: Agusto Herring Attending Provider: Agusto Herring Primary Care Provider: Luis Manuel Blanca Hospital Course Hospital Course: This 61-year-old female witha past medical history of hyponatremia, cerebral palsy, epilepsy and diarrhea presented to the [facility] Emergency Department with report of 4 seizures in 4 hours. The pPatient received 4 mg of Ativan at the time.? Her baseline is one seizure per week. Denies any recent infectious signs or symptoms.? Denies any change in medication.? Receives all of her baseline medications from her caregiver. She received Keppra IV in the emergency department.Triliptal was discontinued. She was started on Zonegran. She had no seizures in the Emergency deparment. She was admitted to the medical surgical unit for observation and managment. Overnight she had no seizures and did not have any untoward effects from the Zonegran. Discussesd with her caregiver, guardian and Dr Pineda, she is at her baseline, and we agree she is able to go home with her caregiver via her own wheelchair and wheelchair van. Explained she will continue Zonegran. Reviewed with Dr Pineda Time spent on direct patient care and documentation 45 minutes. Home Meds and New Rx's Prescriptions: New esomeprazole magnesium [Nexium] 40 mg Capsule,Delayed Release(Dr/Ec) 40 mg PO DAILY@0730 Qty: 0 0RF zonisamide [Zonegran] 100 mg Capsule See Rx Instructions .ROUTE .COMPLEX Qty: 90 0RF Rx Instructions: 100mg PO every AM; 200 mg po every PM zonisamide [Zonegran] 100 mg Capsule 200 mg PO QPM Qty: 0 0RF Continued diazepam 10 mg/spray (0.1 mL) spray,non-aerosol 10 mg intranasal PRN PRN rufinamide [Banzel] 400 mg tablet 800 - 1,200 mg PO TID Qty: 240 11RF Rx Instructions: 1200 mgQAM/QPM; 800 mg noontime melatonin 3 mg tablet 6 mg PO DAILY Qty: 180 3RF nystatin 100,000 unit/gram powder 1 applic Topical BID PRN Qty: 60 3RF Rx Instructions: apply to inguinal rash prn loratadine 10 mg tablet 10 mg PO DAILY PRN Qty: 90 3RF Rx Instructions: 1 TAB DAILY PRN Hinged Knee Brace Miscellaneous DAILY Qty: 1 0RF Rx Instructions: Wear knee immobilizer at all times. Locked 0-80 degrees. clotrimazole-betamethasone 1-0.05 % cream 1 applic Topical BID prn Qty: 30 0RF Rx Instructions: apply to rash under breast diazepam [Diastat AcuDial] 12.5-15-17.5-20 mg kit 20 mg NM as directed PRN (Reason: seizure activity) Qty: 1 2RF Rx Instructions: for intractable seizure midazolam 5 mg/spray (0.1 mL) spray,non-aerosol 2.5 mg HUA DAILY PRN Epidiolex 100 mg/mL solution See Rx Instructions PO BID Rx Instructions: 4.3 ML PO twice a day; ondansetron HCl [Zofran] 4 mg tablet 4 mg PO q 8 hr prn Qty: 15 0RF Rx Instructions: for nausea/vomiting lorazepam 1 mg tablet 1 - 4 mg PO DAILY PRN (Reason: seizure) Qty: 30 5RF sertraline 100 mg tablet 100 mg PO .AM Qty: 90 3RF atorvastatin [Lipitor] 40 mg tablet 40 mg PO HS Qty: 90 3RF Rx Instructions: 1 TAB HS cholecalciferol (vitamin D3) 25 mcg (1,000 unit) capsule 1,000 unit PO BID Qty: 180 4RF esomeprazole magnesium [Nexium] 40 mg capsule,delayed release(DR/EC) 40 mg PO DAILY Qty: 90 3RF Rx Instructions: dose reduce due to diarrhea 11/19/21 acetaminophen [Tylenol Extra Strength] 500 mg tablet 500 mg PO BID Qty: 180 3RF quetiapine [Seroquel] 50 mg tablet 50 mg PO HS Qty: 90 3RF phenobarbital 60 mg tablet 120 mg PO QPM ferrous gluconate 324 mg (36 mg iron) tablet 324 mg PO QAM clobazam [Onfi] 20 mg tablet 20 mg PO QPM Discontinued oxcarbazepine 300 mg Tablet 300 mg PO DAILY Rx Instructions: 1200 oxcarbazepine [Trileptal] 300 MG tablet 600 mg PO BID No Action loperamide [Imodium A-D] 2 mg capsule 2 mg PO Q4H PRN (Reason: loose stool) Qty: 30 0RF Rx Instructions: administer after each loose stool until symptoms controlled; do not exceed 8 mg per 24 hrs Discharge Instructions Instructions: Zonisamide (By mouth), Hyponatremia (DC), Epilepsy (DC) Stand Alone Forms: Nursing Discharge Form Referrals: Luis Manuel Blanca MD [Primary Care Provider] - 02/16/22 9:40 am Activity:: Activity as Tolerated Equipment/Supplies:: No Equipment Needed Diet:: As Tolerated Discharge Orders Discharge Orders: Discharge Order (Routine); Ordered 02/14/22 Ordered By: Linnette Gregory Discharge Data Discharge Date/Time-TO BE ENTERED AT DEPARTURE: 02/14/22 13:38 DS: Summary Time Spent with Patient providing and/or coordinating discharge services: Less than 30 minutes Status at Discharge Functional status at discharge: wheelchair bound Overall status at discharge: patient is back to baseline Mental Status: mental status grossly normal Speech and Movement: speech and movement normal (at her baseline) Mood: congruent mood Affect: indifferent Exam Narrative Exam Narrative: quail farmer is in the room. Cinthya is awake, alert, sitting up in bed, smiling. She has had no respiratory difficulty. Const General: cooperative, comfortable and no acute distress Nutritional Appearance: well nourished and obese Eyes General: appearance normal, both eyes and all related structures Neck Neck: normal visual inspection Chest Chest: normal inspection of the chest Resp Effort & Inspection: normal respiratory effort Auscultation: clear to auscultation bilaterally Cardio Jugular venous pressure: no JVD Rate: regular rate Rhythm: regular rhythm Heart Sounds: S1 normal and S2 normal GI Inspection: normal to inspection Auscultation: normal bowel sounds Back/Spine/Pelvis Back: no CVA tenderness Skin General skin exam: no rashes or lesions noted Neuro General: patient alert and patient awake Extrem General: normal to inspection Psych Appearance: grossly normal Mental Status: mental status grossly normal Speech and Movement: speech and movement normal (at her baseline) Mood: congruent mood Affect: indifferent Attitude: cooperative Thought Process: other (at baseline) Judgment: other Other: Caregiver and guardian DS: Data Vitals/I&O Vitals and I&O: Vital Signs Temperature 36.6 C 02/14/22 08:00 Temperature Source Tympanic 02/14/22 08:00 Pulse 81 02/14/22 08:00 Pulse Rhythm Regular 02/14/22 07:35 Respiratory Rate 20 02/14/22 08:00 Respiratory Effort Non-Labored 02/14/22 07:35 Respiratory Depth Normal 02/14/22 07:35 Respiratory Pattern Normal 02/14/22 07:35 Blood Pressure 144/81 H 02/14/22 08:00 Pulse Oximetry 95 02/14/22 08:00 Oxygen Delivery Method Room Air 02/14/22 08:00 Oxygen Flow Rate 0 02/14/22 08:00 Pain Level 0 02/13/22 20:00 Comment 02/13/22 11:46 Intake & Output 02/13/22 02/13/22 02/14/22 11:59 23:59 11:59 Intake Total 1346.667 / 3288.334 1941.667 / 3288.334 846.667 / 846.667 Output Total Balance 1346.667 / 3285.334 1938.667 / 3285.334 845.667 / 845.667 Weight 73.6 kg Intake: IV 856.667 / 1838.334 981.667 / 1838.334 846.667 / 846.667 Oral 490 / 1450 960 / 1450 0 / 0 Output: Urine 2 / 2 Stool / Other: Urine Color Yellow Yellow Urine Appearance Clear Clear Urine Odor None None Stool Size Moderate Large Stool Characteristics Soft Soft Brown Voiding Methods Diaper Diaper Incontinent Incontinent Data Completed and Pending Labs on day of discharge: Preliminary micro results at discharge 02/12/22 21:46 Urine Culture - Preliminary Urine - Reflex from [facility] All Active Problems Hyponatremia (Acute) Obstructive sleep apnea syndrome (Chronic 07/06/07) severe [facility]; CPAP Cerebral palsy (Chronic) Significant cognitive delay. Seizure disorder (Chronic 11/15/12) Break-thru seizures. Medical History Acquired deformity of right knee (03/25/16) Edema Edema lower extremities Gastroesophageal reflux disease Gastroesophageal reflux disease 03/20 EGD duodenal ulcer and gastritis (? due to Depakote) vomiting Headache History of surgery Appendectomy. Cholecystectomy. Vagal nerve stimulator. Recurrent lower extremity fractures - history of ORIF of her ankle. Hypercholesterolemia Hyperlipidemia Hyperlipidemia (07/05/11) Iron deficiency anemia Iron deficiency anemia (03/06/14) Mental deficiency Obesity Osteoporosis 2003 T-2.7; 2005 T-2.4; 2007 stable at T-2.4 Polyp of colon (07/06/07) tubular adenoma Seizure disorder Surgical History Cholecystectomy (~2003) EGD - MAC (07/12/14) Fracture, Open Treatment RIGHT ANKLE History of open reduction and internal fixation (ORIF) procedure Family History Mother Essential hypertension Diabetes TYPE II Dementia Hyperlipidemia Father , late Essential hypertension Diabetes TYPE II Heart disease Hyperlipidemia Brother Diabetes Heart disease Hyperlipidemia Brother No problems noted. Social History Smoking/Tobacco Use Status: Never Smoking risk assessment performed?: Yes Alcohol Intake: never Drug use: Never Substance use type: does not use Caregiver/Support person: Yes Household members: caregiver Housing: house Do you need help understanding health information?: Always Pets and animals: Yes Pets and animals: cat(s) and dog(s) Sexually active: No What is your relationship status?: never Panel score (0-1 are the most socially isolated patients): 0 Seatbelt use: always Additional Social history: unable to assess
[2022-02-14 11:43] VITALS: BP 131/75; PULSE 77; RESP 22; TEMP 37; O2SAT 94
[2022-02-14] MEDS: LORazepam 1 MG TAB PO (12:18)
--- NOTE | 2022-02-14 17:06 | CMDISCH_ITS ---
- If Service Date Differs Date of service: 02/14/22 Time of Service: 17:06 LACE Index Scoring Tool - Questions: Length of Stay (in days): 2 Acuity (Admit via E.D.?): Yes E.D. Visits: 1 - Answers: Total Score: 6 Risk of Readmission: Low Risk Care Management Discharge Reason for Hospitalization: seizures Discharge Plan: Cinthya returned home today in the care of her part time flexible clerk caregiver, Lulu. She was transported via her own w/c van by her caregivers. She will follow up with her PCP and discharge plan of care. Patient/Family Education Needs: Review discharge instructions and limitations, discussion of self care needs including ask me three.
== END 2022-02-14 13:38 | disposition home or self-care (01) ==
LOC: ER 21:11 → MS 02-13 00:28
PROVIDERS: Admitting Provider Family Medicine; Emergency Provider Physician Assistant; PCP Family Medicine; Visit Provider Family Medicine
DX: G40.909 Epilepsy, unspecified, not intractable, without status epilepticus (principal); G80.9 Cerebral palsy, unspecified; E87.1 Hypo-osmolality and hyponatremia; Z79.899 Other long term (current) drug therapy; G47.33 Obstructive sleep apnea (adult) (pediatric); D50.9 Iron deficiency anemia, unspecified; E78.00 Pure hypercholesterolemia, unspecified; K21.9 Gastro-esophageal reflux disease without esophagitis; E66.9 Obesity, unspecified; M81.0 Age-related osteoporosis without current pathological fracture; F09 Unspecified mental disorder due to known physiological condition; R19.7 Diarrhea, unspecified
CPT/HCPCS: 36415; 51701; 80048; 80053; 87635; 93005; 96365; 96372; 99285; J1650; 70450; 71046; 81003; 81015; 83735; 85025; 87086; 93010; 99217; 99220; 99225; G0378; J1953

== ENCOUNTER 2022-06-30 16:47 | Inpatient (IN) | payer MEDICARE, MEDICAID, SELFPAY ==
[2022-06-30] VITALS (83 sets, daily range): BP systolic 81–127; BP diastolic 28–69; PULSE 89–135; RESP 16–44; TEMP 27.2–39.7; O2SAT 92–100
--- NOTE | 2022-06-30 16:45 | DI.CT_ITS ---
Exam(s) CT HEAD WO EXAM: CT HEAD WO CLINICAL HISTORY: seizures, multiple. TECHNIQUE: Imaging Protocol: Axial computed tomography images with coronal and sagittal reformatted images were created and reviewed COMPARISON: CT CT HEAD WO from 02/12/2022 CR,XR XR CHEST 1V IN DI DEPT from 06/30/2022 FINDINGS: The ventricular system is normal in appearance. No evidence of acute intracranial hemorrhage, mass effect, or midline shift. The orbital structures are unremarkable. The temporal bone structures appear intact. Calvarium: Normal. Visualized Paranasal sinuses/Mastoids: Clear. Nasal tube noted on the right. IMPRESSION: Normal cranial CT. RADIATION DOSE DELIVERED: Total DLP Total DLP DATA REPOSITORY: All CT scans at this facility are submitted to the National Radiology Data Registry (NRDR) Dose Index Registry (DIR) with the [employer] (ACR). RADIATION OPTIMIZATION: All CT scans at this facility use at least one of these dose optimization te chniques: automated exposure control; mA and/or kV adjustment per patient size (includes targeted exa ms where dose is matched to clinical indication); or iterative reconstruction.
--- NOTE | 2022-06-30 16:45 | RT.EKG_ITS ---
APPROVED REPORT Exam: Resting ECG Reason for Exam: tachycardia Patient Location: I HR:100 bpm ECG Measurements Heart Rate 100 AXIS AZ 120 P 60 QRSd 83 QRS 67 QT 306 T 59 QTc 395 Conclusion Age and gender not entered, assume 51 yo male for purpose of ECG interpretation Sinus tachycardia...rate> 99 sinus tachycardia, normal axis, normal intervals
--- NOTE | 2022-06-30 16:58 | DI.RAD_ITS ---
Exam(s) XR CHEST 1V IN DI DEPT EXAM: XR CHEST 1V IN DI DEPT CLINICAL HISTORY: seizure TECHNIQUE: COMPARISON: CR,XR XR PORTABLE CHEST AP from 10/05/2020 CR,XR XR CHEST 2V PA LATERAL from 02/12/2022 FINDINGS: Pacer device projected over the left chest . Cardiac size is within normal limits. Lungs are clear. No pleural effusion seen on this frontal vie w. IMPRESSION: No evidence of acute process. RADIATION DOSE DELIVERED: Total DLP
[2022-06-30 17:05] LABS: BE (Venous) -11 mmol/L (-2-3); HCO3 (Venous) 18 mmol/L (23-28); O2 Sat (Venous) 92 %; TCO2 (Venous) 17 mmol/L (24-29); pCO2 (Venous) 51 mmHg (41-51); pO2 (Venous) 77 mmHg
[2022-06-30 17:08] LABS: Abs Immature Grans 0.05 10^3/uL (0.0-0.06); Absolute Basophil Count 0.02 10^3/uL (0.0-0.2); Absolute Monocyte Count 0.45 10^3/uL (0.1-0.8); Absolute Neutrophil Count 7.55 10^3/uL (1.2-6.7); Basophils % 0.2; HCT 41.8 % (36.0-46.0); Immature Grans % 0.6; Lymphocytes % 6.9; MCHC 31.1 % (32.0-36.0); MCV 93 fL (80-95); MPV 9.7 fL (8.0-11.0); Monocytes % 5.2; Neutrophils % 87.1; Platelet Count 233 10^3/uL (130-400); RBC 4.49 10^6/uL (3.93-5.22); RDW 12.9 % (11.7-14.6); RDW-SD 44.2 fL; WBC 8.67 10^3/uL (4.4-10.8); pH (Venous) 7.15 (7.31-7.41)
--- NOTE | 2022-06-30 17:13 | ED.GENADUL_ITS ---
Discharge Plan Disposition Patient Disposition: Admit to [facility] Condition: Stable Discharge Details Chief Complaint: Seizure Clinical Impression: Seizure, Diarrhea, Vomiting Primary Care Provider: Luis Manuel Blanca ED Provider: Scott Feliciano Home Meds and New Rx's Prescriptions: No Action diazepam 10 mg/spray (0.1 mL) spray,non-aerosol 10 mg intranasal PRN PRN rufinamide [Banzel] 400 mg tablet 800 - 1,200 mg PO TID Qty: 240 11RF Rx Instructions: 1200 mgQAM/QPM; 800 mg noontime melatonin 3 mg tablet 6 mg PO DAILY Qty: 180 3RF nystatin 100,000 unit/gram powder 1 applic Topical BID PRN Qty: 60 3RF Rx Instructions: apply to inguinal rash prn loratadine 10 mg tablet 10 mg PO DAILY PRN Qty: 90 3RF Rx Instructions: 1 TAB DAILY PRN Hinged Knee Brace Miscellaneous DAILY Qty: 1 0RF Rx Instructions: Wear knee immobilizer at all times. Locked 0-80 degrees. clotrimazole-betamethasone 1-0.05 % cream 1 applic Topical BID prn Qty: 30 0RF Rx Instructions: apply to rash under breast diazepam [Diastat AcuDial] 12.5-15-17.5-20 mg kit 20 mg ID as directed PRN (Reason: seizure activity) Qty: 1 2RF Rx Instructions: for intractable seizure midazolam 5 mg/spray (0.1 mL) spray,non-aerosol 2.5 mg HUA DAILY PRN Epidiolex 100 mg/mL solution See Rx Instructions PO BID Rx Instructions: 4.3 ML PO twice a day; ondansetron HCl [Zofran] 4 mg tablet 4 mg PO q 8 hr prn Qty: 15 0RF Rx Instructions: for nausea/vomiting atorvastatin [Lipitor] 40 mg tablet 40 mg PO HS Qty: 90 3RF Rx Instructions: 1 TAB HS cholecalciferol (vitamin D3) 25 mcg (1,000 unit) capsule 1,000 unit PO BID Qty: 180 4RF loperamide [Imodium A-D] 2 mg capsule 2 mg PO Q4H PRN (Reason: loose stool) Qty: 30 0RF Rx Instructions: administer after each loose stool until symptoms controlled; do not exceed 8 mg per 24 hrs acetaminophen [Tylenol Extra Strength] 500 mg tablet 500 mg PO BID Qty: 180 3RF quetiapine [Seroquel] 50 mg tablet 50 mg PO HS Qty: 90 3RF lorazepam 1 mg tablet 1 - 4 mg PO DAILY PRN (Reason: seizure) Qty: 30 5RF zonisamide [Zonegran] 100 mg capsule See Rx Instructions .ROUTE .COMPLEX Qty: 270 3RF Rx Instructions: 100mg PO every AM; 200 mg po every PM sertraline 100 mg tablet 100 mg PO .AM Qty: 90 3RF ferrous gluconate 324 mg (36 mg iron) tablet 324 mg PO QAM Qty: 90 3RF phenobarbital 60 mg tablet 120 mg PO QPM clobazam [Onfi] 20 mg tablet 20 mg PO QPM esomeprazole magnesium [Nexium] 40 mg Capsule,Delayed Release(Dr/Ec) 40 mg PO DAILY@0730 Qty: 0 0RF zonisamide [Zonegran] 100 mg Capsule 200 mg PO QPM Qty: 0 0RF Medical Decision Making 61-year-old female history of cerebral palsy, seizure disorder, recently started on new antiepileptic, history of frequent seizures up until the last month, this will be the first seizure activity she had this month since starting medication. Multiple witnessed tonic-clonic seizures at home per caregiver, caregiver administered Versed before EMS arrival, multiple seizures witnessed by EMS EMS also administered 10 mg Versed, patient arrived with sonorous breathing appears postictal however he did have a right gaze preference concern for active seizing, nasopharyngeal airway placed patient placed on supplemental oxygen, seizure activity seem to uriel with more responsiveness specifically responding to noxious stimuli, improvement of coloration, patient loaded with fosphenytoin. Labs and imaging have been ordered including CT head chest x-ray EKG VBG, will start fluids, will closely monitor mental status and respiratory status. Airway supplies and respiratory team at bedside. Disposition pending labs imaging and repeat examination mental status. 19: 42 patient currently resting comfortably very interactive moving all extremities, meningeal, new antiepileptic is called zonisamide, family will leave her medications at bedside as this is likely not formula. Consider likely viral syndrome resulting in nausea and diarrhea. Have added blood cultures and procalcitonin. Patient evaluated for close observation Sign Out No HPI General Date/Time Provider Initiated Documentation: 06/30/22 16:50 . HPI Narrative: 61-year-old female history of cerebral palsy, seizure disorder, history of frequent seizures up to 2 seizures a week until patient recently started a new antiepileptic medication this is a for seizure activity she has had this month, multiple witnessed seizures approximately 4-5 at home before EMS arrival patient had been received a dose of nasal Versed by caregiver, was given 10 mg of Versed by EMS due to 2-3 active seizures in route. Only new symptomatology at home has been an episode of vomiting and diarrhea patient had just returned home from a respite facility that had a viral syndrome circulating at the time of discharge. Related Data Home Medications Medication Instructions Recorded Confirmed clotrimazole-betamethasone 1 1 applic topical BID prn #30 grams 01/11/19 06/30/22 %-0.05 % topical cream diazepam 12.5 mg-15 mg-17.5 mg-20 20 mg ID as directed PRN seizure 01/11/19 06/30/22 mg rectal kit (Diastat AcuDial) activity ##1 cannabidiol 100 mg/mL oral See Rx Instructions PO BID 09/04/19 06/30/22 solution (Epidiolex) midazolam 5 mg/spray (0.1 mL) 2.5 mg intranasal DAILY PRN 09/04/19 06/30/22 nasal spray phenobarbital 60 mg tablet 120 mg PO QPM 10/05/20 06/30/22 ondansetron HCl 4 mg tablet 4 mg PO q 8 hr prn #15 tabs 12/14/20 06/30/22 (Zofran) diazepam 10 mg/spray (0.1 mL) 10 mg intranasal PRN PRN 09/15/21 06/30/22 nasal spray loratadine 10 mg tablet 10 mg PO DAILY PRN #90 tab-caps 09/15/21 06/30/22 melatonin 3 mg tablet 6 mg PO DAILY #180 tabs 09/15/21 06/30/22 nystatin 100,000 unit/gram topical 1 applic topical BID PRN #60 grams 09/15/21 06/30/22 powder rufinamide 400 mg tablet (Banzel) 800 - 1,200 mg PO TID #240 tabs 09/15/21 06/30/22 atorvastatin 40 mg tablet (Lipitor) 40 mg PO HS #90 tab-caps 09/22/21 06/30/22 cholecalciferol (vitamin D3) 25 1,000 unit PO BID #180 tab-caps 09/22/21 06/30/22 mcg (1,000 unit) capsule loperamide 2 mg capsule (Imodium 2 mg PO Q4H PRN loose stool #30 12/27/21 06/30/22 A-D) caps acetaminophen 500 mg tablet 500 mg PO BID #180 tabs 01/21/22 06/30/22 (Tylenol Extra Strength) quetiapine 50 mg tablet (Seroquel) 50 mg PO HS #90 tab-caps 02/03/22 06/30/22 clobazam 20 mg tablet (Onfi) 20 mg PO QPM 02/13/22 06/30/22 esomeprazole magnesium 40 mg 40 mg PO DAILY@0730 #0 caps 02/14/22 06/30/22 capsule,delayed release (Nexium) zonisamide 100 mg capsule 200 mg PO QPM #0 caps 02/14/22 06/30/22 (Zonegran) lorazepam 1 mg tablet 1 - 4 mg PO DAILY PRN seizure #30 02/18/22 06/30/22 tabs zonisamide 100 mg capsule See Rx Instructions .Route 03/09/22 06/30/22 (Zonegran) .COMPLEX #270 caps ferrous gluconate 324 mg (36 mg 324 mg PO QAM #90 tabs 05/24/22 iron) tablet sertraline 100 mg tablet 100 mg PO .AM #90 tab-caps 05/24/22 06/30/22 Previous Rx's Medication Instructions Recorded clotrimazole-betamethasone 1 1 applic topical BID prn #30 grams 01/11/19 %-0.05 % topical cream diazepam 12.5 mg-15 mg-17.5 mg-20 20 mg ID as directed PRN seizure 01/11/19 mg rectal kit (Diastat AcuDial) activity ##1 ondansetron HCl 4 mg tablet 4 mg PO q 8 hr prn #15 tabs 12/14/20 (Zofran) loratadine 10 mg tablet 10 mg PO DAILY PRN #90 tab-caps 09/15/21 melatonin 3 mg tablet 6 mg PO DAILY #180 tabs 09/15/21 nystatin 100,000 unit/gram topical 1 applic topical BID PRN #60 grams 09/15/21 powder rufinamide 400 mg tablet (Banzel) 800 - 1,200 mg PO TID #240 tabs 09/15/21 atorvastatin 40 mg tablet (Lipitor) 40 mg PO HS #90 tab-caps 09/22/21 cholecalciferol (vitamin D3) 25 1,000 unit PO BID #180 tab-caps 09/22/21 mcg (1,000 unit) capsule loperamide 2 mg capsule (Imodium 2 mg PO Q4H PRN loose stool #30 12/27/21 A-D) caps acetaminophen 500 mg tablet 500 mg PO BID #180 tabs 01/21/22 (Tylenol Extra Strength) quetiapine 50 mg tablet (Seroquel) 50 mg PO HS #90 tab-caps 02/03/22 esomeprazole magnesium 40 mg 40 mg PO DAILY@0730 #0 caps 02/14/22 capsule,delayed release (Nexium) zonisamide 100 mg capsule 200 mg PO QPM #0 caps 02/14/22 (Zonegran) lorazepam 1 mg tablet 1 - 4 mg PO DAILY PRN seizure #30 02/18/22 tabs zonisamide 100 mg capsule See Rx Instructions .Route 03/09/22 (Zonegran) .COMPLEX #270 caps ferrous gluconate 324 mg (36 mg 324 mg PO QAM #90 tabs 05/24/22 iron) tablet sertraline 100 mg tablet 100 mg PO .AM #90 tab-caps 05/24/22 Allergies Allergy/AdvReac Type Severity Reaction Status Date / Time amoxicillin trihydrate Allergy Intermediate SKIN RASH Verified 02/22/22 12:57 [From Augmentin] potassium clavulanate Allergy Intermediate SKIN RASH Verified 02/22/22 12:57 [From Augmentin] risedronate sodium AdvReac Mild GI SX Verified 02/22/22 12:57 [From Actonel] General Stated Complaint: Seizure GIRMA: 2 Review of Systems Narrative: Review of Systems Constitutional: negative Eyes: negative ENT: negative Cardiovascular: negative Respiratory: negative Gastrointestinal: Vomiting, diarrhea : negative Musculoskeletal: negative Skin: negative Neurologic: Seizures Psych: negative PFSH All Active Problems (Updated 06/30/22 @ 19:44 by Scott Feliciano MD) Seizure (Acute) Diarrhea (Acute) Vomiting (Acute) Hyponatremia (Acute) Obstructive sleep apnea syndrome (Chronic 07/06/07) severe [facility]; CPAP Cerebral palsy (Chronic) Significant cognitive delay. Seizure disorder (Chronic 11/15/12) Break-thru seizures. Medical History Acquired deformity of right knee (03/25/16) Edema Edema lower extremities Gastroesophageal reflux disease Gastroesophageal reflux disease 03/20 EGD duodenal ulcer and gastritis (? due to Depakote) vomiting Headache History of surgery Appendectomy. Cholecystectomy. Vagal nerve stimulator. Recurrent lower extremity fractures - history of ORIF of her ankle. Hypercholesterolemia Hyperlipidemia Hyperlipidemia (07/05/11) Iron deficiency anemia Iron deficiency anemia (03/06/14) Mental deficiency Obesity Osteoporosis 2003 T-2.7; 2005 T-2.4; 2007 stable at T-2.4 Polyp of colon (07/06/07) tubular adenoma Seizure disorder Surgical History Cholecystectomy (~2003) EGD - MAC (07/12/14) Fracture, Open Treatment RIGHT ANKLE History of open reduction and internal fixation (ORIF) procedure Family History Mother Essential hypertension Diabetes TYPE II Dementia Hyperlipidemia Father , late 80s Essential hypertension Diabetes TYPE II Heart disease Hyperlipidemia Brother Diabetes Heart disease Hyperlipidemia Brother No problems noted. Social History Smoking/Tobacco Use Status: Never Smoking risk assessment performed?: Yes Alcohol Intake: never Drug use: Never Substance use type: does not use Caregiver/Support person: Yes Household members: caregiver Housing: house Do you need help understanding health information?: Always Pets and animals: Yes Pets and animals: cat(s) and dog(s) Sexually active: No What is your relationship status?: never Panel score (0-1 are the most socially isolated patients): 0 Seatbelt use: always Additional Social history: unable to assess Exam Narrative Exam Narrative: Physical Examination General: Somnolent, postictal HEENT: normocephalic, atraumatic; PERRL, EOM intact, predominant right gaze on initial evaluation now improved, conjunctiva normal; no nasal discharge; moist mucous membranes, oral and pharyngeal mucosa normal, tolerating secretions Neck: supple, trachea midline; full ROM Chest: normal to inspection Respiratory: Tachypnea, sonorous breath sounds transmitted from upper airway Cardiac: Tachycardia, regular rhythm, S1S2 intact, no murmurs rubs or gallops GI: abdomen soft, non-tender, non-distended; no palpable mass or hepatosplenomegaly Skin: Dry keratinized skin to bilateral forearms with petechial appearance Neuro: Somnolent, will move to noxious stimuli, will slightly open eyes to noxious stimuli, no spontaneous verbal Extremities: No signs of trauma no peripheral edema Course Vital Signs Vital signs: Vital Signs Temperature 36.8 C 06/30/22 16:45 Pulse 133 H 06/30/22 16:45 Respiratory Rate 42 H 06/30/22 16:45 Blood Pressure 127/69 06/30/22 16:45 Pulse Oximetry 99 06/30/22 16:45 Temperature 36.8 C 06/30/22 16:45 Temperature Source Temporal Artery Scan 06/30/22 16:45 Pulse 133 H 06/30/22 16:45 Respiratory Rate 42 H 06/30/22 16:45 Respiratory Effort 06/30/22 16:56 Respiratory Depth Shallow 06/30/22 16:56 Respiratory Pattern Tachypnea 06/30/22 16:56 Blood Pressure 127/69 06/30/22 16:45 Blood Pressure Position Supine 06/30/22 16:45 Pulse Oximetry 99 06/30/22 16:45 Oxygen Delivery Method Non-Rebreather 06/30/22 16:45 Lab/Test Results Lab/Test Results: Laboratory Tests Range/Units 06/30/22 06/30/22 16:45 16:45 WBC (4.4-10.8) 10^3/uL 8.67 RBC (3.93-5.22) 10^6/uL 4.49 Hgb (11.2-15.7) g/dL 13.0 Hct (36.0-46.0) % 41.8 MCV (80-95) fL 93 MCH (27.0-33.0) pg 29.0 MCHC (32.0-36.0) % 31.1 L RDW (11.7-14.6) % 12.9 Plt Count (130-400) 10^3/uL 233 MPV (8.0-11.0) fL 9.7 Immature Gran % 0.6 Neutrophils % 87.1 Lymphocytes % 6.9 Monocytes % 5.2 Eosinophils % 0.0 Basophils % 0.2 Nucleated RBC % (0.0-0.3) % 0.0 Absolute Neutrophils (1.2-6.7) 10^3/uL 7.55 H Absolute Lymphocytes (1.2-3.4) 10^3/uL 0.60 L Absolute Monocytes (0.1-0.8) 10^3/uL 0.45 Absolute Eosinophils (0.0-0.7) 10^3/uL 0.00 Absolute Basophils (0.0-0.2) 10^3/uL 0.02 VBG pH (7.31-7.41) 7.15 L* VBG pCO2 (41-51) mmHg 51 VBG pO2 mmHg 77 VBG HCO3 (23-28) mmol/L 18 L VBG Total CO2 (24-29) mmol/L 17 L VBG O2 Saturation % 92 VBG Base Excess (-2-3) mmol/L -11 L
[2022-06-30 17:38] LABS: ALT 31 U/L (14-59); AST 28 U/L (15-37); Albumin 4.2 g/dL (3.4-5.0); Alkaline Phosphatase 116 U/L (46-116); Anion Gap 19.1 mmol/L (3-11); BUN 12 mg/dL (7-18); Bilirubin, Total 0.3 mg/dL (0.2-1.0); CO2 19.9 mmol/L (21.0-32.0); CREATININE 0.9 mg/dL (0.55-1.02); Calcium 8.8 mg/dL (8.5-10.1); Chloride 95 mmol/L (98-107); Estimated GFR 73.19 (mL/min/1.73m2); Glucose 155 mg/dL (74-106); Potassium 3.7 mmol/L (3.5-5.1); Sodium 134 mmol/L (136-145); TSH (W/Ref FT4) 2.83 uIU/mL (0.36-3.74); Total Protein 7.9 g/dL (6.4-8.2)
--- NOTE | 2022-06-30 18:24 | DI.VRAD_ITS ---
PROCEDURE INFORMATION: Exam: CT Head Without Contrast Exam date and time: 06/30/2022 6:01 PM Age: 61 years old Clinical indication: Other: Seizures, multiple TECHNIQUE: Imaging protocol: Computed tomography of the head without contrast. COMPARISON: CT HEAD WO 02/12/2022 11:40 PM FINDINGS: Brain: Cerebral sulci show bilateral symmetry with no supratentorial mass or mass effect detected. Brainstem and cerebellum are unremarkable. There is no evidence of acute intracranial hemorrhage. Cerebral ventricles: Ventricular and cisternal spaces are normal in size and configuration and there is no midline shift or hydrocephalus seen. Paranasal sinuses: Grossly clear throughout. Mastoid air cells: Grossly clear bilaterally. Probable cerumen seen in the external auditory canals bilaterally. Bones/joints: Bony calvarium and skull base are intact and no acute fractures are detected. Soft tissues: Probable calcified pilar cyst seen involving the scalp near the vertex just to the right of midline. IMPRESSION: Unremarkable noncontrast head CT with no evidence of acute transcortical infarction, recent intracranial hemorrhage or hydrocephalus. No acute intracranial process is detected. Dictated and Authenticated by: Merlin Francis MD. Ordering:INOCENTE Chavez MD
--- NOTE | 2022-06-30 18:26 | DI.VRAD_ITS ---
PROCEDURE INFORMATION: Exam: XR Chest Exam date and time: 06/30/2022 5:54 PM Age: 61 years old Clinical indication: Other: Seizures, multiple TECHNIQUE: Imaging protocol: Radiologic exam of the chest. Views: 1 view. COMPARISON: CR XR CHEST 2V PA LATERAL 02/12/2022 10:31 PM FINDINGS: Lungs: Lungs are unchanged with no new mass or consolidation detected. Pleural spaces: No pneumothorax or pleural effusion is seen. Heart/Mediastinum: Heart size is normal and vessel margins are sharply defined. Bones/joints: No acute osseous lesions are detected. IMPRESSION: No acute findings. Dictated and Authenticated by: Merlin Francis MD. Ordering:INOCENTE Chavez MD
[2022-06-30] MEDS: Normal Saline 1,000 ML 1000 ML IV ×2 (19:12→22:40)
[2022-06-30 19:13] LABS: Bilirubin Negative (Negative); Blood Moderate (Negative); Clarity Sl Cloudy (Clear); Glucose Negative (Negative); Ketones Negative (Negative); Leukocyte Esterase Negative (Negative); Nitrite Negative (Negative); Specific Gravity >= 1.030 (1.005-1.025); Urobilinogen 0.2 EU/dL (Up TO 0.2); pH 5.5 (5-8)
[2022-06-30 19:21] LABS: Bacteria Negative HPF (Negative); C & S Indicated? No; Casts 3-5 Hyaline LPF (Negative); Crystals Negative HPF (Negative); Epithelial Cells Few HPF (Negative); Mucus Moderate (Negative)
[2022-06-30 19:49] LABS: COVID-19 PCR Negative (Negative); Influenza A PCR Positive (Negative); Influenza B PCR Negative (Negative); RSV PCR Negative (Negative)
[2022-06-30 19:56] LABS: Source Nasopharynx
[2022-06-30] MEDS: ACETAMINOPHEN 1,000 MG/100 ML BTL 400 MG IVPB (21:16)
[2022-06-30 21:36] LABS: Procalcitonin 0.5 ng/mL
--- NOTE | 2022-06-30 21:49 | HPE_ITS ---
Date of service: 06/30/22 Time of Service: 21:49 Assessment and Plan Assessment and plan (1) Influenza A H1N1 infection: Start date: 06/30/22 Status: Acute Assessment and plan: This is a 61-year-old lady with fever and GI symptoms mostly but also chronic respiratory symptoms presenting with prolonged seizure which was breakthrough seizures from her chronic persistent seizures associated with cerebral palsy. She is in a shelter and with 24-hour caregivers. She has been placed on Tamiflu with her symptoms just beginning in the last 2 days and her exposure has been with other groups who are also ill. Procalcitonin is negative and WBC was not elevated with patient having mostly fever at this time with less GI symptoms. She chronically does snore and has sleep apnea on CPAP at night. This would not place last night because of concerns of her handling her secretions. She is on IV fluids for hyponatremia and electrolytes will be checked and repleted as needed. She appeared to have acute hyponatremia and hyperglycemia with acidosis from her seizure and follow-up lab will be done to reassure correction of these with fluid resuscitation. She was given loading dose of phenytoin in the ED but this will not be continued with her usual antise izure meds to be given as we treat her acute flu. She is a full code. (2) Seizure disorder: Status: Chronic Assessment and plan: Exacerbated by decreased threshold with acute influenza A infection. Continue outpatient medical therapy with phenytoin loading dose being given in the ED but not to be continued. Neurology consultation as needed. (3) Viral gastroenteritis: Start date: 06/30/22 Status: Acute Assessment and plan: Symptomatic treatment with fluid hydration IV and n.p.o. for now. Advance diet after further evaluation of swallowing. (4) Hyponatremia: Start date: 06/30/22 Status: Acute Assessment and plan: Secondary to acute prolonged seizure and acute influenza A infection. Patient also has metabolic acidosis with slight hyperglycemia. Follow-up lab after IV fluid resuscitation and because of peripheral edema be cautious with fluid overload. Echocardiogram will be performed because of chronic edema to assess heart function. She is a full code. (5) Obstructive sleep apnea syndrome: Status: Chronic Assessment and plan: O2 supplementation and CPAP at night and during the day if needed with patient having chronic snoring even during the day when lying in bed which is her usual position. (6) Cerebral palsy: Status: Chronic Assessment and plan: Chronically debilitated with obesity and joint immobility with edema lower extremities from immobility as well as muscle wasting diffusely. This does compromise the patient and she is being treated for sleep apnea as well which is secondary to body build and decreased mentation chronically. She does have bronchospasm whenever she has acute respiratory infections and this will be treated aggressively. History of Present Illness History of Present Illness Chief Complaint: Prolonged seizure at home with known seizure disorder and CP Narrative: This is a 61-year-old female patient who was brought to the ED from her shelter with an attendant and all of her medications after a prolonged seizure at home which was not responding to her usual rescue therapy which include Valium rectally, Versed nasally which was used and did eventually break her prolonged seizure and when she is awake enough she can take Ativan. She is chronically withdrawn and has respiratory upper airway noise according to the cold molding press operator. This is her baseline but worsened recently. She has a fever. She also was having some nausea and loose stools and did test positive for influenza A in the ED. She also has some electrolyte abnormalities which were being corrected with IV fluids. She has not had an echocardiogram recently and does have chronic peripheral edema with immobility being mostly at the stand and pivot with much assistance. She does have chronic cerebral palsy. She was negative for COVID and procalcitonin was negative though she was given Rocephin because of possible urinary tract infection and question of respiratory infection though imaging was unrevealing. Most likely her fever is from her influenza A. She did pick this up and she was visiting with other groups just recently with people in the group also ill with similar symptoms. The patient was given a loading dose of phenytoin in the ED but will continue her usual outpatient medications and will have fever control while treating her symptomatically for the flu and covering her with Rocephin until cultures and imaging can be further evaluated with more aggressive respiratory care. Patient does chronically wear CPAP at night for respiratory symptoms and this should be continued. When she is ill she does do bronchodilators which will be initiated with nebulizers. Patient is a full code. Review of Systems Narrative: 13 point review of systems otherwise unrevealing or stable per caregiver the patient chronically having respiratory symptoms and being very immobile with little activity and having pitting edema lower extremities with from inactivity. Patient is unable to offer history. PFS All Active Problems (Updated 07/01/22 @ 08:00 by Ethan Ledesma) Influenza A H1N1 infection (Acute) Viral gastroenteritis (Acute) Seizure (Acute) Diarrhea (Acute) Vomiting (Acute) Hyponatremia (Acute) Obstructive sleep apnea syndrome (Chronic 07/06/07) severe [facility]; CPAP Cerebral palsy (Chronic) Significant cognitive delay. Seizure disorder (Chronic 11/15/12) Break-thru seizures. Medical History Acquired deformity of right knee (03/25/16) Edema Edema lower extremities Gastroesophageal reflux disease Gastroesophageal reflux disease 03/20 EGD duodenal ulcer and gastritis (? due to Depakote) vomiting Headache History of surgery Appendectomy. Cholecystectomy. Vagal nerve stimulator. Recurrent lower extremity fractures - history of ORIF of her ankle. Hypercholesterolemia Hyperlipidemia Hyperlipidemia (07/05/11) Iron deficiency anemia Iron deficiency anemia (03/06/14) Mental deficiency Obesity Osteoporosis 2003 T-2.7; 2005 T-2.4; 2007 stable at T-2.4 Polyp of colon (07/06/07) tubular adenoma Seizure disorder Surgical History Cholecystectomy (~2003) EGD - MAC (07/12/14) Fracture, Open Treatment RIGHT ANKLE History of open reduction and internal fixation (ORIF) procedure Family History Mother Essential hypertension Diabetes TYPE II Dementia Hyperlipidemia Father , late 80's Essential hypertension Diabetes TYPE II Heart disease Hyperlipidemia Brother Diabetes Heart disease Hyperlipidemia Brother No problems noted. Social History Smoking/Tobacco Use Status: Never Smoking risk assessment performed?: Yes Alcohol Intake: never Drug use: Never Substance use type: does not use Caregiver/Support person: Yes Household members: caregiver Housing: house Do you need help understanding health information?: Always Pets and animals: Yes Pets and animals: cat(s) and dog(s) Sexually active: No What is your relationship status?: never Panel score (0-1 are the most socially isolated patients): 0 Seatbelt use: always Additional Social history: unable to assess Meds Allergies and Home Medications Allergies Allergy/AdvReac Type Severity Reaction Status Date / Time amoxicillin trihydrate Allergy Intermediate SKIN RASH Verified 02/22/22 12:57 [From Augmentin] potassium clavulanate Allergy Intermediate SKIN RASH Verified 02/22/22 12:57 [From Augmentin] risedronate sodium AdvReac Mild GI SX Verified 02/22/22 12:57 [From Actonel] Home Medications Medication Instructions Recorded Confirmed Type Hinged Knee Brace u miscellaneous DAILY ##1 07/13/15 12/12/18 Clinic clotrimazole-betamethasone 1 1 applic topical BID prn #30 grams 01/11/19 06/30/22 Rx %-0.05 % topical cream diazepam 12.5 mg-15 mg-17.5 mg-20 20 mg WI as directed PRN seizure 01/11/19 06/30/22 Rx mg rectal kit (Diastat AcuDial) activity ##1 cannabidiol 100 mg/mL oral See Rx Instructions PO BID 09/04/19 06/30/22 History solution (Epidiolex) midazolam 5 mg/spray (0.1 mL) 2.5 mg intranasal DAILY PRN 09/04/19 06/30/22 History nasal spray phenobarbital 60 mg tablet 120 mg PO QPM 10/05/20 06/30/22 History ondansetron HCl 4 mg tablet 4 mg PO q 8 hr prn #15 tabs 12/14/20 06/30/22 Rx (Zofran) diazepam 10 mg/spray (0.1 mL) 10 mg intranasal PRN PRN 09/15/21 06/30/22 History nasal spray loratadine 10 mg tablet 10 mg PO DAILY PRN #90 tab-caps 09/15/21 06/30/22 Rx melatonin 3 mg tablet 6 mg PO DAILY #180 tabs 09/15/21 06/30/22 Rx nystatin 100,000 unit/gram topical 1 applic topical BID PRN #60 grams 09/15/21 06/30/22 Rx powder rufinamide 400 mg tablet (Banzel) 800 - 1,200 mg PO TID #240 tabs 09/15/21 06/30/22 Rx atorvastatin 40 mg tablet (Lipitor) 40 mg PO HS #90 tab-caps 09/22/21 06/30/22 Rx cholecalciferol (vitamin D3) 25 1,000 unit PO BID #180 tab-caps 09/22/21 06/30/22 Rx mcg (1,000 unit) capsule loperamide 2 mg capsule (Imodium 2 mg PO Q4H PRN loose stool #30 12/27/21 06/30/22 Rx A-D) caps acetaminophen 500 mg tablet 500 mg PO BID #180 tabs 01/21/22 06/30/22 Rx (Tylenol Extra Strength) quetiapine 50 mg tablet (Seroquel) 50 mg PO HS #90 tab-caps 02/03/22 06/30/22 Rx clobazam 20 mg tablet (Onfi) 20 mg PO QPM 02/13/22 06/30/22 History esomeprazole magnesium 40 mg 40 mg PO DAILY@0730 #0 caps 02/14/22 06/30/22 Rx capsule,delayed release (Nexium) zonisamide 100 mg capsule 200 mg PO QPM #0 caps 02/14/22 06/30/22 Rx (Zonegran) lorazepam 1 mg tablet 1 - 4 mg PO DAILY PRN seizure #30 02/18/22 06/30/22 Rx tabs zonisamide 100 mg capsule See Rx Instructions .Route 03/09/22 06/30/22 Rx (Zonegran) .COMPLEX #270 caps ferrous gluconate 324 mg (36 mg 324 mg PO QAM #90 tabs 05/24/22 Rx iron) tablet sertraline 100 mg tablet 100 mg PO .AM #90 tab-caps 05/24/22 06/30/22 Rx Exam Narrative Exam Narrative: General: Patient appears older than stated age, staring ahead and opening eyes to verbal stimulation but not responding. This is her baseline. She is wearing an O2 mask and nebulizer at the time of my exam. She is not oriented to person, place or time and not being verbally responsive as stated. She does have dysmorphia from her chronic cerebral palsy almost Down's syndrome appearing. Short stature and morbidly obese. HEENT: Normocephalic, dysmorphic facial features as mentioned, eyes with pupils equal and react to light symmetrically, extraocular movement tact and sclera anicteric. Oropharynx with dry mucosa. Neck: Supple without JVD. Back: Not examined with patient supine in bed. Posture appears kyphotic. Lungs: Diffuse bronchovesicular breath sounds with fair to poor aeration, increased expiratory phase with slight expiratory wheeze but marked inspiratory and expiratory rhonchi without focalizing rales or rhonchi. She has increased upper airway noise with caregiver stating that this is her baseline. Breast: Exam deferred. Heart: Distant heart sounds with regular rate and rhythm and obscured exam by lung rhonchi and snoring. Abdomen: Obese contour, soft and nontender to palpation with no palpable hepatosplenomegaly. Genitalia: Exam deferred. Extremities: 2+ pitting edema in lower extremities with indentation where her legs lie over support with chronic nonpitting edema both lower extremities and dysmorphic feet as if she has atrophic musculature from disuse. No clubbing or cyanosis. Fair capillary refill. Joints have decreased range of motion from disuse. Ecchymotic areas over both forearms which caregiver states is chronic over years and has been there for at least 10 years. Dermatology has not been able to diagnose the lesions though they persist. Skin: Ecchymotic areas over forearms dorsally which are confluent and nonblanching without texture, otherwise pale, warm and dry with chronic skin changes lower extremities from chronic edema with loss of hair extremity atrophic skin but no ulcerations. Neuro: Cranial nerves II through XII appear to be grossly intact but patient responding to verbal stimuli. Diffusely decreased strength over lower extremities more than upper extremities which appears to be from her cerebral palsy with slight extension contractures lower extremities. Sensory testing not performed. Psych: Flattened affect and mood not interpretable with patient not communicating. No abnormal thought processes appear to be manifested. Remote and recent memory testing not testable. Results Imaging Imaging Studies: Exam: CT Head Without Contrast Exam date and time: 06/30/2022 6:01 PM Age: 61 years old Clinical indication: Other: Seizures, multiple TECHNIQUE: Imaging protocol: Computed tomography of the head without contrast. COMPARISON: CT HEAD WO 02/12/2022 11:40 PM FINDINGS: Brain: Cerebral sulci show bilateral symmetry with no supratentorial mass or mass effect detected. Brainstem and cerebellum are unremarkable. There is no evidence of acute intracranial hemorrhage. Cerebral ventricles: Ventricular and cisternal spaces are normal in size and configuration and there is no midline shift or hydrocephalus seen. Paranasal sinuses: Grossly clear throughout. Mastoid air cells: Grossly clear bilaterally. ? Probable cerumen seen in the external auditory canals bilaterally. Bones/joints: Bony calvarium and skull base are intact and no acute fractures are detected. Soft tissues:? Probable calcified pilar cyst seen involving the scalp near the vertex just to the right of midline. IMPRESSION: Unremarkable noncontrast head CT with no evidence of acute transcortical infarction, recent intracranial hemorrhage or hydrocephalus. No acute intracranial process is detected. Exam: XR Chest Exam date and time: 06/30/2022 5:54 PM Age: 61 years old Clinical indication: Other: Seizures, multiple TECHNIQUE: Imaging protocol: Radiologic exam of the chest. Views: 1 view. COMPARISON: CR XR CHEST 2V PA LATERAL 02/12/2022 10:31 PM FINDINGS: Lungs: Lungs are unchanged with no new mass or consolidation detected. Pleural spaces: No pneumothorax or pleural effusion is seen. Heart/Mediastinum: Heart size is normal and vessel margins are sharply defined. Bones/joints: No acute osseous lesions are detected.? IMPRESSION: No acute findings. Labs Result diagrams: 07/01/22 05:24 07/01/22 05:24 Labs: Laboratory Results - last 24 hr 06/30/22 06/30/22 06/30/22 16:45 16:45 16:45 WBC 8.67 RBC 4.49 Hgb 13.0 Hct 41.8 MCV 93 MCH 29.0 MCHC 31.1 L RDW 12.9 Plt Count 233 MPV 9.7 Immature Gran % 0.6 Neutrophils % 87.1 Lymphocytes % 6.9 Monocytes % 5.2 Eosinophils % 0.0 Basophils % 0.2 Nucleated RBC % 0.0 Absolute Neutrophils 7.55 H Absolute Lymphocytes 0.60 L Absolute Monocytes 0.45 Absolute Eosinophils 0.00 Absolute Basophils 0.02 VBG pH 7.15 L* VBG pCO2 51 VBG pO2 77 VBG HCO3 18 L VBG Total CO2 17 L VBG O2 Saturation 92 VBG Base Excess -11 L Sodium 134 L Potassium 3.7 Chloride 95 L Carbon Dioxide 19.9 L Anion Gap 19.1 H BUN 12 Creatinine 0.9 Est GFR (CKD-EPI 2020) 73.19 Glucose 155 H Calcium 8.8 Total Bilirubin 0.3 AST 28 ALT 31 Alkaline Phosphatase 116 Total Protein 7.9 Albumin 4.2 Procalcitonin TSH 2.83 Urine Color Urine Clarity Urine pH Ur Specific [place] Urine Protein Urine Ketones Urine Blood Urine Nitrite Urine Bilirubin Urine Urobilinogen Ur Leukocyte Esterase Urine RBC Urine WBC Ur Epithelial Cells Urine Crystals Urine Bacteria Urine Casts Urine Mucus Ur Culture Indicated? Urine Glucose COVID-19 Source SARS-CoV-2 (PCR) Influenza Type A (PCR) Influenza Type B (PCR) RSV (PCR) 06/30/22 06/30/22 06/30/22 19:10 19:10 20:55 WBC RBC Hgb Hct MCV MCH MCHC RDW Plt Count MPV Immature Gran % Neutrophils % Lymphocytes % Monocytes % Eosinophils % Basophils % Nucleated RBC % Absolute Neutrophils Absolute Lymphocytes Absolute Monocytes Absolute Eosinophils Absolute Basophils VBG pH VBG pCO2 VBG pO2 VBG HCO3 VBG Total CO2 VBG O2 Saturation VBG Base Excess Sodium Potassium Chloride Carbon Dioxide Anion Gap BUN Creatinine Est GFR (CKD-EPI 2020) Glucose Calcium Total Bilirubin AST ALT Alkaline Phosphatase Total Protein Albumin Procalcitonin 0.5 TSH Urine Color Yellow Urine Clarity Sl Cloudy Urine pH 5.5 Ur Specific [place] >= 1.030 H Urine Protein 100 H Urine Ketones Negative Urine Blood Moderate H Urine Nitrite Negative Urine Bilirubin Negative Urine Urobilinogen 0.2 Ur Leukocyte Esterase Negative Urine RBC 10-20 H Urine WBC 3-5 Ur Epithelial Cells Few Urine Crystals Negative Urine Bacteria Negative Urine Casts 3-5 Hyaline Urine Mucus Moderate Ur Culture Indicated? No Urine Glucose Negative COVID-19 Source Nasopharynx SARS-CoV-2 (PCR) Negative Influenza Type A (PCR) Positive A Influenza Type B (PCR) Negative RSV (PCR) Negative Last Vital Signs Temp 39.7 C H 06/30/22 21:16 Pulse 100 H 06/30/22 19:16 Resp 24 06/30/22 19:16 BP 111/44 L 06/30/22 19:16 Pulse Ox 97 06/30/22 19:16
[2022-06-30] MEDS: Aspirin 300 MG SUPP PR (22:37)
[2022-07-01] VITALS (54 sets, daily range): BP systolic 81–130; BP diastolic 34–66; PULSE 88–125; RESP 4–41; TEMP 37.4–40; O2SAT 76–98
[2022-07-01] MEDS: cefTRIAXone 1 GM/50 ML BAG IVPB (01:48)
[2022-07-01] MEDS: Ketorolac 15 MG/ML VIAL IVP ×5 (01:49→21:22)
[2022-07-01] MEDS: Enoxaparin 40 MG/0.4 ML SYR SC (01:49)
[2022-07-01 05:33] LABS: BE (Venous) -4 mmol/L (-2-3); HCO3 (Venous) 23 mmol/L (23-28); O2 Sat (Venous) 97 %; TCO2 (Venous) 21 mmol/L (24-29); pCO2 (Venous) 45 mmHg (41-51); pH (Venous) 7.32 (7.31-7.41); pO2 (Venous) 92 mmHg
[2022-07-01 05:36] LABS: HCT 33.8 % (36.0-46.0); HGB 10.8 g/dL (11.2-15.7); MCH 29.3 pg (27.0-33.0); MCV 92 fL (80-95); Platelet Count 154 10^3/uL (130-400); RBC 3.69 10^6/uL (3.93-5.22); RDW 13.4 % (11.7-14.6); RDW-SD 45.6 fL; WBC 5.04 10^3/uL (4.4-10.8)
[2022-07-01 06:09] LABS: ALT 30 U/L (14-59); AST 36 U/L (15-37); Albumin 3.2 g/dL (3.4-5.0); Alkaline Phosphatase 87 U/L (46-116); Anion Gap 6.7 mmol/L (3-11); BUN 11 mg/dL (7-18); Bilirubin, Total 0.1 mg/dL (0.2-1.0); CO2 26.3 mmol/L (21.0-32.0); CREATININE 0.7 mg/dL (0.55-1.02); Calcium 7.5 mg/dL (8.5-10.1); Chloride 107 mmol/L (98-107); Estimated GFR 98.95 (mL/min/1.73m2); Glucose 77 mg/dL (74-106); Magnesium 1.7 mg/dL (1.8-2.4); Potassium 3.4 mmol/L (3.5-5.1); Sodium 140 mmol/L (136-145); Total Protein 6.3 g/dL (6.4-8.2)
[2022-07-01] MEDS: ACETAMINOPHEN 1,000 MG/100 ML BTL 400 MG IVPB ×3 (06:36→19:43)
[2022-07-01] MEDS: Albuterol/Ipratropium 3 ML UPD VIAL UPD ×3 (06:37→18:07)
[2022-07-01] MEDS: Albuterol 2.5 MG/3 ML INH SOLN VIAL UPD (06:38)
[2022-07-01] MEDS: Normal Saline 1,000 ML 125 ML IV ×2 (06:40)
[2022-07-01] MEDS: methylPREDNISolone SUCC 125 MG VIAL 80 MG IVP (08:17)
[2022-07-01] MEDS: Normal Saline Flush 10 ML SYR IVP (08:18)
--- NOTE | 2022-07-01 10:02 | INITIAL_ITS ---
- If Service Date Differs Date of service: 07/01/22 Time of Service: 10:02 Care Management Initial Assess REASON FOR HOSPITALIZATION:: Seizure disorder, CP, hyponatremia, influenza PAST MEDICAL HISTORY/PAST SURGICAL HISTORY:: Medical History . Acquired deformity of right knee (03/25/16). Edema. Edema. lower extremities. Gastroesophageal reflux disease. Gastroesophageal reflux disease. 03/20 EGD duodenal ulcer and gastritis. (? due to Depakote). vomiting. Headache. History of surgery. Appendectomy. Cholecystectomy. Vagal nerve stimulator. Recurrent lower extremity fractures - history of ORIF of her ankle. Hypercholesterolemia. Hyperlipidemia. Hyperlipidemia (07/05/11). Iron deficiency anemia. Iron deficiency anemia (03/06/14). Mental deficiency. Obesity. Osteoporosis. 2003 T-2.7; 2005 T- 2.4; 2007 stable at T-2.4. Polyp of colon (07/06/07). tubular adenoma. Seizure disorder. Surgical History . Cholecystectomy (~2003). EGD - MAC (07/12/14). Fracture, Open Treatment. RIGHT ANKLE. History of open reduction and internal fixation (ORIF) procedure PREVIOUS FUNCTIONAL STATUS/SOCIAL/FAMILY SUPPORTS:: Cinthya lives in [facility] in the home of a shared living provider, Lulu Arellano ([phone]). She has a guardian, Fifi Marichuymangomasood ([phone]). She requires a multimedia developer caregiver to assist her with her ADL's. CURRENT FUNCTIONAL STATUS:: Cinthya is mostly non verbal, but can say yes/no, and says other words that her caregivers understand. Due to her communication and anxiety about being in the hospital, one of her caregivers will stay with her continuously. They have a w/c van which they use to transport Cinthya, and will drive her home when she is discharged. CM will continue to follow. ADVANCE DIRECTIVES:: Guardian Has patient been provided with info about the portal/API?: Yes Did the patient sign up for the portal?: No CODE STATUS:: Full Code INSURANCE COVERAGE / FINANCIAL ISSUES:: [facility] CURRENT HOME/COMMUNITY SERVICES/EQUIPMENT:: Cinthya lives with a multimedia developer caregiver, in a shared living home. PRIMARY CARE PHYSICIAN:: Luis Manuel Blanca POTENTIAL DISCHARGE NEEDS:: Follow up appointments. PATIENT/FAMILY EDUCATION NEEDS:: Review discharge instructions with caregiver, specifically regarding change in medications, discussion of self care needs including ask me three. ANTICIPATED BARRIERS TO DISCHARGE:: None identified. TRANSPORTATION:: Private w/c van. PLAN:: Cinthya will return home into the care of her shared living provider/multimedia developer caregiver, who will transport her via private vehicle. She will follow up with her PCP and discharge plan of care. CM will continue to follow.
--- NOTE | 2022-07-01 11:27 | W.PM.PROGNOT ---
Date of Service Date of service: 07/01/22 Time of Service: : Assessment and Plan Assessment and plan (1) Influenza A H1N1 infection: Start date: 06/30/22 Status: Acute Assessment and plan: cont. Tamiflu at renal adjusted dosing 30 mg bid. dc corticosteroids (contraindicated in acute influenza infection d/t incr.mortality risk. continue supportive care w/ BIPAP, aerosol treatments; empiric treatment for possible aspiration pneumonitis Critical care time spent interviewing and examining the patient, reviewing studies, discussing case with patient's nurse and consulting physicians was 30 minutes (2) Seizure disorder: Status: Chronic Assessment and plan: patient has been [place] [facility] Recently had her Zonegran increased. She also uses cannabidiol along w/ rufinamide and phenobarbital and has diazepam, lorazepam and midazolam prn for break through seizures. per her cardgiver of 27 years, she was having daily seizures until the recent change in her meds. Presumably her current seizure breakthrough was d/t her febrile illness from influenza. However, I have put her on Keppra. (3) Viral gastroenteritis: Start date: 06/30/22 Status: Acute Assessment and plan: nauseas and diarrhea asscociated w/ her acute onset of her influenza yesterday. (4) Hyponatremia: Start date: 06/30/22 Status: Resolved Assessment and plan: sodium now up to 140 after iv fluids. Patient seemed to be able to handle clear liquids, therefore I have dc'ed her iv fluids. will monitor. She now has mild hypokalemia and hypomagenesemia which I will correct via iv suppmentation (5) Obstructive sleep apnea syndrome: Status: Chronic Assessment and plan: O2 supplementation and CPAP at night and during the day if needed with patient having chronic snoring even during the day when lying in bed which is her usual position. (6) Cerebral palsy: Status: Chronic Assessment and plan: Chronically debilitated with obesity and joint immobility with edema lower extremities from immobility as well as muscle wasting diffusely. This does compromise the patient and she is being treated for sleep apnea as well which is secondary to body build and decreased mentation chronically. She does have bronchospasm whenever she has acute respiratory infections and this will be treated aggressively. (7) Aspiration pneumonitis: Status: Suspected Assessment and plan: suspected as she has vomiting along w/ her seizure; CXR did not show any infiltrates last night. Dr Ledesma empirically put her on Rocephin. She has allergy to amoxicillin therefore Unasyn was not used. Will treat empirically x 5 days, monitor her response; I have added scheduled bronchodilators. (8) DVT prophylaxis: Status: Acute Assessment and plan: on lovenox SC Objective Last Vital Signs Temp 39.3 C H 07/01/22 11:00 Pulse 92 H 07/01/22 10:00 Resp 36 H 07/01/22 10:01 BP 106/50 L 07/01/22 10:00 Pulse Ox 95 07/01/22 10:01 Laboratory Results - last 24 hr 06/30/22 06/30/22 06/30/22 16:45 16:45 16:45 WBC 8.67 RBC 4.49 Hgb 13.0 Hct 41.8 MCV 93 MCH 29.0 MCHC 31.1 L RDW 12.9 Plt Count 233 MPV 9.7 Immature Gran % 0.6 Neutrophils % 87.1 Lymphocytes % 6.9 Monocytes % 5.2 Eosinophils % 0.0 Basophils % 0.2 Nucleated RBC % 0.0 Absolute Neutrophils 7.55 H Absolute Lymphocytes 0.60 L Absolute Monocytes 0.45 Absolute Eosinophils 0.00 Absolute Basophils 0.02 VBG pH 7.15 L* VBG pCO2 51 VBG pO2 77 VBG HCO3 18 L VBG Total CO2 17 L VBG O2 Saturation 92 VBG Base Excess -11 L Sodium 134 L Potassium 3.7 Chloride 95 L Carbon Dioxide 19.9 L Anion Gap 19.1 H BUN 12 Creatinine 0.9 Est GFR (CKD-EPI 2020) 73.19 Glucose 155 H Calcium 8.8 Magnesium Total Bilirubin 0.3 AST 28 ALT 31 Alkaline Phosphatase 116 Total Protein 7.9 Albumin 4.2 Procalcitonin TSH 2.83 Urine Color Urine Clarity Urine pH Ur Specific [place] Urine Protein Urine Ketones Urine Blood Urine Nitrite Urine Bilirubin Urine Urobilinogen Ur Leukocyte Esterase Urine RBC Urine WBC Ur Epithelial Cells Urine Crystals Urine Bacteria Urine Casts Urine Mucus Ur Culture Indicated? Urine Glucose COVID-19 Source SARS-CoV-2 (PCR) Influenza Type A (PCR) Influenza Type B (PCR) RSV (PCR) 06/30/22 06/30/22 06/30/22 19:10 19:10 20:55 WBC RBC Hgb Hct MCV MCH MCHC RDW Plt Count MPV Immature Gran % Neutrophils % Lymphocytes % Monocytes % Eosinophils % Basophils % Nucleated RBC % Absolute Neutrophils Absolute Lymphocytes Absolute Monocytes Absolute Eosinophils Absolute Basophils VBG pH VBG pCO2 VBG pO2 VBG HCO3 VBG Total CO2 VBG O2 Saturation VBG Base Excess Sodium Potassium Chloride Carbon Dioxide Anion Gap BUN Creatinine Est GFR (CKD-EPI 2020) Glucose Calcium Magnesium Total Bilirubin AST ALT Alkaline Phosphatase Total Protein Albumin Procalcitonin 0.5 TSH Urine Color Yellow Urine Clarity Sl Cloudy Urine pH 5.5 Ur Specific [place] >= 1.030 H Urine Protein 100 H Urine Ketones Negative Urine Blood Moderate H Urine Nitrite Negative Urine Bilirubin Negative Urine Urobilinogen 0.2 Ur Leukocyte Esterase Negative Urine RBC 10-20 H Urine WBC 3-5 Ur Epithelial Cells Few Urine Crystals Negative Urine Bacteria Negative Urine Casts 3-5 Hyaline Urine Mucus Moderate Ur Culture Indicated? No Urine Glucose Negative COVID-19 Source Nasopharynx SARS-CoV-2 (PCR) Negative Influenza Type A (PCR) Positive A Influenza Type B (PCR) Negative RSV (PCR) Negative 07/01/22 07/01/22 07/01/22 05:24 05:24 05:24 WBC 5.04 RBC 3.69 L Hgb 10.8 L D Hct 33.8 L MCV 92 MCH 29.3 MCHC 32.0 RDW 13.4 Plt Count 154 MPV 10.0 Immature Gran % Neutrophils % Lymphocytes % Monocytes % Eosinophils % Basophils % Nucleated RBC % Absolute Neutrophils Absolute Lymphocytes Absolute Monocytes Absolute Eosinophils Absolute Basophils VBG pH 7.32 VBG pCO2 45 VBG pO2 92 VBG HCO3 23 VBG Total CO2 21 L VBG O2 Saturation 97 VBG Base Excess -4 L Sodium 140 Potassium 3.4 L Chloride 107 Carbon Dioxide 26.3 Anion Gap 6.7 BUN 11 Creatinine 0.7 Est GFR (CKD-EPI 2020) 98.95 Glucose 77 Calcium 7.5 L Magnesium 1.7 L Total Bilirubin 0.1 L AST 36 ALT 30 Alkaline Phosphatase 87 Total Protein 6.3 L Albumin 3.2 L Procalcitonin TSH Urine Color Urine Clarity Urine pH Ur Specific [place] Urine Protein Urine Ketones Urine Blood Urine Nitrite Urine Bilirubin Urine Urobilinogen Ur Leukocyte Esterase Urine RBC Urine WBC Ur Epithelial Cells Urine Crystals Urine Bacteria Urine Casts Urine Mucus Ur Culture Indicated? Urine Glucose COVID-19 Source SARS-CoV-2 (PCR) Influenza Type A (PCR) Influenza Type B (PCR) RSV (PCR)
[2022-07-01] MEDS: POTASSIUM CHLORIDE 20 MEQ/100 ML BAG 50 MEQ IVPB ×2 (12:02→14:05)
[2022-07-01] MEDS: MAGNESIUM SULFATE 2 GM/50 ML BAG IVPB (12:02)
[2022-07-01] MEDS: Oseltamivir 75 MG CAP PO (12:06)
[2022-07-01] MEDS: Zonisamide 100 MG CAP PO (12:07)
[2022-07-01] MEDS: Esomeprazole 40 MG CAPCR PO (12:07)
[2022-07-01] MEDS: Sertraline 100 MG TAB PO (12:07)
[2022-07-01] MEDS: levETIRAcetam 2,000 MG in Normal Saline 100 ML 400 MG IVPB (14:34)
[2022-07-01] MEDS: Lactated Ringers 1,000 ML 100 ML IV (19:30)
[2022-07-01] MEDS: Normal Saline 500 ML 30 ML IV (19:43)
[2022-07-01] MEDS: levETIRAcetam 1,000 MG in Normal Saline 100 ML 400 MG IVPB (21:22)
[2022-07-01] MEDS: Levalbuterol 0.63 MG/3 ML UPD VIAL UPD (21:23)
[2022-07-01] MEDS: Zonisamide 100 MG CAP 200 MG PO (21:23)
[2022-07-01] MEDS: PHENobarbital 64.8 MG TAB 129.6 MG PO (21:23)
[2022-07-01] MEDS: Melatonin 3 MG TAB 6 MG PO (21:24)
[2022-07-01] MEDS: QUEtiapine 50 MG TAB PO (21:24)
[2022-07-01] MEDS: Atorvastatin 40 MG TAB PO (21:24)
[2022-07-01] MEDS: Oseltamivir 30 MG CAP PO (21:24)
[2022-07-02] VITALS (66 sets, daily range): BP systolic 77–136; BP diastolic 35–71; PULSE 76–110; RESP 1–39; TEMP 36.9–38.4; O2SAT 89–99
[2022-07-02] MEDS: Lactated Ringers 250 ML IV (00:25)
[2022-07-02] MEDS: Enoxaparin 40 MG/0.4 ML SYR SC (01:39)
[2022-07-02] MEDS: cefTRIAXone 1 GM/50 ML BAG IVPB (01:39)
[2022-07-02] MEDS: Lactated Ringers 500 ML IV (02:15)
[2022-07-02] MEDS: Lactated Ringers 1,000 ML 150 ML IV (04:20)
[2022-07-02] MEDS: ACETAMINOPHEN 1,000 MG/100 ML BTL 400 MG IVPB (04:29)
[2022-07-02] MEDS: Ketorolac 15 MG/ML VIAL IVP ×3 (04:30→20:08)
[2022-07-02] MEDS: Albuterol/Ipratropium 3 ML UPD VIAL UPD (05:19)
[2022-07-02 06:10] LABS: Lactate 0.8 mmol/L (0.6-1.4)
[2022-07-02 06:13] LABS: Abs Immature Grans 0.02 10^3/uL (0.0-0.06); Absolute Basophil Count 0.01 10^3/uL (0.0-0.2); Absolute Lymphocyte Count 1.12 10^3/uL (1.2-3.4); Absolute Monocyte Count 0.34 10^3/uL (0.1-0.8); Absolute Neutrophil Count 4.33 10^3/uL (1.2-6.7); Basophils % 0.2; HCT 32.1 % (36.0-46.0); HGB 9.9 g/dL (11.2-15.7); Immature Grans % 0.3; Lymphocytes % 19.2; MCH 28.4 pg (27.0-33.0); MCHC 30.8 % (32.0-36.0); MCV 92 fL (80-95); MPV 10.1 fL (8.0-11.0); Monocytes % 5.8; Neutrophils % 74.5; Platelet Count 138 10^3/uL (130-400); RBC 3.48 10^6/uL (3.93-5.22); RDW 13.9 % (11.7-14.6); RDW-SD 46.9 fL; WBC 5.82 10^3/uL (4.4-10.8)
[2022-07-02 06:29] LABS: ALT 29 U/L (14-59); AST 34 U/L (15-37); Albumin 2.6 g/dL (3.4-5.0); Alkaline Phosphatase 70 U/L (46-116); Anion Gap 4.1 mmol/L (3-11); BUN 8 mg/dL (7-18); Bilirubin, Total 0.2 mg/dL (0.2-1.0); CO2 27.9 mmol/L (21.0-32.0); CREATININE 0.6 mg/dL (0.55-1.02); Calcium 7.8 mg/dL (8.5-10.1); Chloride 108 mmol/L (98-107); Estimated GFR 102.69 (mL/min/1.73m2); Glucose 87 mg/dL (74-106); Magnesium 2.2 mg/dL (1.8-2.4); Potassium 3.3 mmol/L (3.5-5.1); Sodium 140 mmol/L (136-145); Total Protein 5.6 g/dL (6.4-8.2)
[2022-07-02 06:30] LABS: C-Reactive Protein 15.88 mg/dL (0.0-0.3)
[2022-07-02 06:36] LABS: NT-proBNP 1457 pg/mL (<300)
[2022-07-02] MEDS: Levalbuterol 0.63 MG/3 ML UPD VIAL UPD ×4 (07:50→19:51)
[2022-07-02] MEDS: levETIRAcetam 1,000 MG in Normal Saline 100 ML 400 MG IVPB ×2 (09:33→22:30)
[2022-07-02] MEDS: Oseltamivir 30 MG CAP PO ×2 (09:34→19:51)
[2022-07-02] MEDS: Zonisamide 100 MG CAP PO (09:34)
[2022-07-02] MEDS: Sertraline 100 MG TAB PO (09:35)
--- NOTE | 2022-07-02 10:13 | W.PM.PROGNOT ---
Date of Service Date of service: 07/02/22 Time of Service: 10:13 Assessment and Plan Assessment and plan (1) Influenza A H1N1 infection: Start date: 06/30/22 Status: Acute Assessment and plan: Continue Tamiflu continue supplemental oxygen with use of BiPAP at night, continue bronchodilators. We will add acapella. I doubt she could cooperate to perform I-S. Continue chest physiotherapy. Critical care time spent interviewing and examining the patient, reviewing studies, discussing case with patient's nurse and consulting physicians was 30 minutes (2) Seizure disorder: Status: Chronic Assessment and plan: patient [place] [facility] [place] had her Zonegran increased. She also uses cannabidiol along w/ rufinamide and phenobarbital and has diazepam, lorazepam and midazolam prn for break through seizures. per her cardgiver of 27 years, she was having daily seizures until the recent change in her meds. Presumably her current seizure breakthrough was d/t her febrile illness from influenza. She was started on Keppra on admission and we will continue the same.. (3) Viral gastroenteritis: Start date: 06/30/22 Status: Acute Assessment and plan: nauseas and diarrhea asscociated w/ her acute onset of her influenza yesterday. (4) Obstructive sleep apnea syndrome: Status: Chronic Assessment and plan: O2 supplementation and CPAP at night and during the day if needed with patient having chronic snoring even during the day when lying in bed which is her usual position. (5) Cerebral palsy: Status: Chronic Assessment and plan: Chronically debilitated with obesity and joint immobility with edema lower extremities from immobility as well as muscle wasting diffusely. This does compromise the patient and she is being treated for sleep apnea as well which is secondary to body build and decreased mentation chronically. She does have bronchospasm whenever she has acute respiratory infections and this will be treated aggressively. (6) Aspiration pneumonitis: Status: Suspected Assessment and plan: suspected as she has vomiting along w/ her seizure; CXR did not show any infiltrates last night. Dr Ledesma empirically put her on Rocephin. She has allergy to amoxicillin therefore Unasyn was not used. Will treat empirically x 5 days, monitor her response; I have added scheduled bronchodilators. (7) DVT prophylaxis: Status: Acute Assessment and plan: on lovenox SC Subjective Subjective Interval history since last seen: Patient still requiring oxygen supplementation; moist cough. She required iv fluids overnight for low U.O. and mild hypotension. This morning she has some diarrhea. First since admission. she remains on Tamiflu for influenza and empiric Rocephin for possible aspiration pneumonia. Patient is tolerating clear liquids and we will advance her diet this morning. Exam Narrative Exam Narrative: Alix is alert and responsive talking with her caregiver and her nurse. She appears to be in no acute respiratory distress and she is able to have simple single word conversations with her caregiver. Lungs with coarse bilateral rhonchi Heart is regular but slightly tachycardic Abdomen is obese soft nontender normal bowel sounds Extremities without peripheral edema or cyanosis Objective Last Vital Signs Temp 37.9 C H 07/02/22 08:15 Pulse 98 H 07/02/22 09:01 Resp 28 H 07/02/22 09:01 BP 115/55 L 07/02/22 09:01 Pulse Ox 96 07/02/22 09:01 Laboratory Results - last 24 hr 07/02/22 07/02/22 07/02/22 06:00 06:00 06:00 WBC 5.82 RBC 3.48 L Hgb 9.9 L Hct 32.1 L MCV 92 MCH 28.4 MCHC 30.8 L RDW 13.9 Plt Count 138 MPV 10.1 Immature Gran % 0.3 Neutrophils % 74.5 Lymphocytes % 19.2 Monocytes % 5.8 Eosinophils % 0.0 Basophils % 0.2 Nucleated RBC % 0.0 Absolute Neutrophils 4.33 Absolute Lymphocytes 1.12 L Absolute Monocytes 0.34 Absolute Eosinophils 0.00 Absolute Basophils 0.01 VBG Lactate Sodium 140 Potassium 3.3 L Chloride 108 H Carbon Dioxide 27.9 Anion Gap 4.1 BUN 8 Creatinine 0.6 Est GFR (CKD-EPI 2020) 102.69 Glucose 87 Calcium 7.8 L Magnesium 2.2 Total Bilirubin 0.2 AST 34 ALT 29 Alkaline Phosphatase 70 C-Reactive Protein 15.88 H NT-Pro-B Natriuret Pep Total Protein 5.6 L Albumin 2.6 L 07/02/22 07/02/22 06:00 06:00 WBC RBC Hgb Hct MCV MCH MCHC RDW Plt Count MPV Immature Gran % Neutrophils % Lymphocytes % Monocytes % Eosinophils % Basophils % Nucleated RBC % Absolute Neutrophils Absolute Lymphocytes Absolute Monocytes Absolute Eosinophils Absolute Basophils VBG Lactate 0.8 Sodium Potassium Chloride Carbon Dioxide Anion Gap BUN Creatinine Est GFR (CKD-EPI 2020) Glucose Calcium Magnesium Total Bilirubin AST ALT Alkaline Phosphatase C-Reactive Protein NT-Pro-B Natriuret Pep 1457 H Total Protein Albumin
[2022-07-02] MEDS: Pantoprazole 40 MG VIAL IVP (12:50)
[2022-07-02] MEDS: Lactobacillus Acidophilus CAP 1 CAP PO ×2 (12:51→19:51)
[2022-07-02] MEDS: Potassium Chloride 10 MEQ CAPCR 20 MEQ PO ×2 (13:09→19:51)
[2022-07-02 16:54] LABS: Potassium 3.5 mmol/L (3.5-5.1)
[2022-07-02] MEDS: Zonisamide 100 MG CAP 200 MG PO (19:51)
[2022-07-02] MEDS: PHENobarbital 64.8 MG TAB 129.6 MG PO (19:51)
[2022-07-02] MEDS: Atorvastatin 40 MG TAB PO (20:18)
[2022-07-02] MEDS: Melatonin 3 MG TAB 6 MG PO (20:18)
[2022-07-02] MEDS: QUEtiapine 50 MG TAB PO (20:27)
[2022-07-02] MEDS: Acetaminophen 325 MG TAB PO (21:30)
[2022-07-03] VITALS (48 sets, daily range): BP systolic 92–155; BP diastolic 35–80; PULSE 80–103; RESP 1–40; TEMP 37–37.8; O2SAT 90–96
[2022-07-03] MEDS: Enoxaparin 40 MG/0.4 ML SYR SC (03:01)
[2022-07-03] MEDS: cefTRIAXone 1 GM/50 ML BAG IVPB (03:01)
[2022-07-03] MEDS: Levalbuterol 0.63 MG/3 ML UPD VIAL UPD ×4 (03:08→20:41)
[2022-07-03] MEDS: LORazepam 1 MG TAB 2 MG PO (04:48)
[2022-07-03 06:03] LABS: Abs Immature Grans 0.02 10^3/uL (0.0-0.06); Absolute Lymphocyte Count 1.55 10^3/uL (1.2-3.4); Absolute Monocyte Count 0.22 10^3/uL (0.1-0.8); Absolute Neutrophil Count 2.79 10^3/uL (1.2-6.7); HCT 30.3 % (36.0-46.0); HGB 9.5 g/dL (11.2-15.7); Immature Grans % 0.4; Lymphocytes % 33.8; MCHC 31.4 % (32.0-36.0); MCV 92 fL (80-95); MPV 10.5 fL (8.0-11.0); Monocytes % 4.8; Platelet Count 141 10^3/uL (130-400); RBC 3.28 10^6/uL (3.93-5.22); RDW 14.3 % (11.7-14.6); RDW-SD 48.4 fL; WBC 4.58 10^3/uL (4.4-10.8)
[2022-07-03 06:25] LABS: Anion Gap 6.6 mmol/L (3-11); BUN 6 mg/dL (7-18); CO2 25.4 mmol/L (21.0-32.0); CREATININE 0.6 mg/dL (0.55-1.02); Calcium 8.2 mg/dL (8.5-10.1); Chloride 109 mmol/L (98-107); Estimated GFR 102.69 (mL/min/1.73m2); Glucose 105 mg/dL (74-106); Magnesium 1.7 mg/dL (1.8-2.4); Potassium 3.8 mmol/L (3.5-5.1); Sodium 141 mmol/L (136-145)
[2022-07-03 07:00] LABS: Procalcitonin 1.5 ng/mL
[2022-07-03 07:49] LABS: Lab Add On Test COMPLETE
[2022-07-03 07:59] LABS: Iron 9 ug/dL (50-170); Total Iron Binding Capacity 221 ug/dL (250-450); Transferrin Sat 4 % (15-50)
--- NOTE | 2022-07-03 08:14 | NUR.NOTE ---
Nursing Note: Patient has 2 orders in for EKG. 1 EKg in Infin[facility] that needed to have M# applied and then transferred. Need to cancel 1 EKG order.
[2022-07-03 08:26] LABS: Ferritin 113 ng/mL (8-252); Folate 15.8 ng/mL (8.6-20.0); Vitamin B12 651 pg/mL (193-986)
[2022-07-03] MEDS: Potassium Chloride 10 MEQ CAPCR 20 MEQ PO ×2 (08:45→14:04)
[2022-07-03] MEDS: Zonisamide 100 MG CAP PO (08:46)
[2022-07-03] MEDS: Lactobacillus Acidophilus CAP 1 CAP PO ×2 (08:46→20:39)
[2022-07-03] MEDS: Oseltamivir 30 MG CAP PO ×2 (08:46→20:39)
[2022-07-03] MEDS: Magnesium Lactate-SR 84 MG TABCR PO (08:46)
[2022-07-03] MEDS: Sertraline 100 MG TAB PO (08:46)
[2022-07-03] MEDS: Normal Saline Flush 10 ML SYR IVP ×3 (08:47→20:40)
[2022-07-03] MEDS: Ketorolac 15 MG/ML VIAL IVP (08:59)
--- NOTE | 2022-07-03 11:00 | DI.RAD_ITS ---
Exam(s) XR PORTABLE CHEST AP EXAM: XR PORTABLE CHEST AP CLINICAL HISTORY: PNEUMONIA TECHNIQUE: 2D digital imaging was performed. COMPARISON: CR,XR XR CHEST 1V IN DI DEPT from 06/30/2022 FINDINGS: Exam limited by overlying leads and abdominal soft tissues partially obscuring the lung bases. LUNGS: Grossly clear. No pleural abnormality seen. HEART: Normal size. AORTA: Normal. BONES: Unremarkable for age. Soft tissues: Spinal stimulator device projecting over left upper lobe. IMPRESSION: Limited exam. No acute findings. DATA REPOSITORY: RADIATION DOSE DELIVERED:
--- NOTE | 2022-07-03 11:01 | W.PM.PROGNOT ---
Date of Service Date of service: 07/03/22 Time of Service: 11:01 Assessment and Plan Assessment and plan (1) Influenza A H1N1 infection: Start date: 06/30/22 Status: Acute Assessment and plan: Continue Tamiflu at renally adjusted doses currently on day 3 of 5. However given her immunocompromise state we may extend the duration of her Tamiflu. Continue supportive care. Patient remains full code per her caregivers information given to me from her guardian. Continue use of BiPAP at night. During the day she seems to be doing well and oxygenating better and not requiring supplemental oxygen during the day. Professional time spent interviewing and examining patient, discussion of goals of care with hospital team (care management, nursing and consulting professionals) was 45 minutes. Patient is hemodynamically stable and respiratory standpoint stable and can be transferred out of the ICU. (2) Seizure disorder: Status: Chronic Assessment and plan: Continue current antiepileptic medication since. Keppra was added to her regimen we will continue the same. However it may be that her breakthrough seizure was secondary to her fever and her acute respiratory (3) Viral gastroenteritis: Start date: 06/30/22 Status: Acute Assessment and plan: Secondary to influenza. (4) Obstructive sleep apnea syndrome: Status: Chronic Assessment and plan: O2 supplementation and CPAP at night and during the day if needed with patient having chronic snoring even during the day when lying in bed which is her usual position. (5) Cerebral palsy: Status: Chronic Assessment and plan: Chronically debilitated with obesity and joint immobility with edema lower extremities from immobility as well as muscle wasting diffusely. This does compromise the patient and she is being treated for sleep apnea as well which is secondary to body build and decreased mentation chronically. She does have bronchospasm whenever she has acute respiratory infections and this will be treated aggressively. (6) Aspiration pneumonitis: Status: Suspected Assessment and plan: due to recurrent fevers I will check follow up CXR; vancomycin added empirically and will check her for MRSA colonization. If negative and no infiltrates on her chest xray then consider d/c of vancomycin and rocephin, repeat procalcitonin pending. (7) DVT prophylaxis: Status: Acute Assessment and plan: on lovenox SC Subjective Subjective Interval history since last seen: Alix still had some low-grade fevers overnight up to 38.3. However oxygenation has improved she is on room air at with an SPO2 95%. Unfortunately during the night IV fluids were restarted because nurses were concerned about her map. Alix tends to run a low blood pressure and she has been asymptomatic from this. Currently she seems to be hypervolemic and in need of diuresis. Her hands and feet have become quite puffy and she has diffuse bilateral rales. I discontinued her IV fluids this morning and I will start her on some IV Lasix for the next 24 to 48 hours until she is euvolemic. She will need potassium supplementation. She remains on Tamiflu for influenza. She was empirically put on Rocephin for aspiration pneumonitis but I am concerned that she may be developing a concomitant bacterial infection therefore I have added vancomycin for coverage of staph. I also ordered nasal swab for MRSA screening. We will get a follow-up chest x-ray this morning. I discussed her case with her caregiver. Exam Narrative Exam Narrative: Alix appears to be a alert oriented to person. She is responsive to her caregiver. She verbalized with single words. Lungs are congested with diffuse bilateral rales Heart is regular Abdomen soft slightly distended. Nursing staff reports she had some loose stools. Extremities with 1 to 2+ pitting edema of her hands and her feet. Objective Last Vital Signs Temp 37.3 C 07/03/22 04:00 Pulse 92 H 07/03/22 05:00 Resp 26 H 07/03/22 05:01 BP 96/45 L 07/03/22 05:00 Pulse Ox 94 07/03/22 05:01 Laboratory Results - last 24 hr 07/02/22 07/03/22 07/03/22 16:20 05:34 05:34 WBC RBC Hgb Hct MCV MCH MCHC RDW Plt Count MPV Immature Gran % Neutrophils % Lymphocytes % Monocytes % Eosinophils % Basophils % Nucleated RBC % Absolute Neutrophils Absolute Lymphocytes Absolute Monocytes Absolute Eosinophils Absolute Basophils Sodium 141 Potassium 3.5 3.8 Chloride 109 H Carbon Dioxide 25.4 Anion Gap 6.6 BUN 6 L Creatinine 0.6 Est GFR (CKD-EPI 2020) 102.69 Glucose 105 Calcium 8.2 L Magnesium 1.7 L Iron TIBC Transferrin % Sat Ferritin C-Reactive Protein 12.20 H Vitamin B12 Folate Procalcitonin Add-On Test Request 07/03/22 07/03/22 07/03/22 05:34 05:34 05:34 WBC 4.58 RBC 3.28 L Hgb 9.5 L Hct 30.3 L MCV 92 MCH 29.0 MCHC 31.4 L RDW 14.3 Plt Count 141 MPV 10.5 Immature Gran % 0.4 Neutrophils % 61.0 Lymphocytes % 33.8 Monocytes % 4.8 Eosinophils % 0.0 Basophils % 0.0 Nucleated RBC % 0.0 Absolute Neutrophils 2.79 Absolute Lymphocytes 1.55 Absolute Monocytes 0.22 Absolute Eosinophils 0.00 Absolute Basophils 0.00 Sodium Potassium Chloride Carbon Dioxide Anion Gap BUN Creatinine Est GFR (CKD-EPI 2020) Glucose Calcium Magnesium Iron 9 L TIBC 221 L Transferrin % Sat 4 L Ferritin C-Reactive Protein Vitamin B12 Folate Procalcitonin 1.5 Add-On Test Request 07/03/22 07/03/22 05:34 07:47 WBC RBC Hgb Hct MCV MCH MCHC RDW Plt Count MPV Immature Gran % Neutrophils % Lymphocytes % Monocytes % Eosinophils % Basophils % Nucleated RBC % Absolute Neutrophils Absolute Lymphocytes Absolute Monocytes Absolute Eosinophils Absolute Basophils Sodium Potassium Chloride Carbon Dioxide Anion Gap BUN Creatinine Est GFR (CKD-EPI 2020) Glucose Calcium Magnesium Iron TIBC Transferrin % Sat Ferritin 113 C-Reactive Protein Vitamin B12 651 Folate 15.8 Procalcitonin Add-On Test Request COMPLETE
[2022-07-03] MEDS: levETIRAcetam 1,000 MG in Normal Saline 100 ML 400 MG IVPB ×2 (11:13→22:15)
[2022-07-03] MEDS: Normal Saline 500 ML 30 ML IV (11:50)
[2022-07-03] MEDS: Pantoprazole 40 MG VIAL IVP (12:03)
--- NOTE | 2022-07-03 12:17 | DI.VRAD_ITS ---
PROCEDURE INFORMATION: Exam: XR Chest Exam date and time: 07/03/2022 11:46 AM Age: 61 years old Clinical indication: Other: Pneumonia TECHNIQUE: Imaging protocol: Radiologic exam of the chest. Views: 1 view. COMPARISON: XR CHEST 1V IN DI DEPT 06/30/2022 5:54 PM FINDINGS: Lungs: Opacity in the medial left base may represent atelectasis or pneumonia.. Pleural spaces: Unremarkable. No pleural effusion. No pneumothorax. Heart/Mediastinum: Mild cardiomegaly Bones/joints: Unremarkable. IMPRESSION: Opacity in the medial left base may represent atelectasis or pneumonia.. Dictated and Authenticated by: Sven Ruiz MD. Ordering:[facility] Jenniffer Alcantara MD
[2022-07-03] MEDS: Acetaminophen 325 MG TAB PO (12:43)
[2022-07-03] MEDS: Furosemide 20 MG/2 ML VIAL IVP ×2 (12:44→23:26)
[2022-07-03] MEDS: VANCOMYCIN/WATER (PEG) 1 GM/200 ML BAG IV (12:48)
[2022-07-03] MEDS: Potassium Chloride Liquid 20 MEQ PKT PO ×2 (16:10→20:39)
[2022-07-03] MEDS: VANCOMYCIN 750 MG in Normal Saline 250 ML 250 MG IV (20:37)
[2022-07-03] MEDS: Melatonin 3 MG TAB 6 MG PO (20:39)
[2022-07-03] MEDS: PHENobarbital 64.8 MG TAB 129.6 MG PO (20:39)
[2022-07-03] MEDS: Zonisamide 100 MG CAP 200 MG PO (20:40)
[2022-07-03] MEDS: Atorvastatin 40 MG TAB PO (20:40)
[2022-07-03] MEDS: QUEtiapine 50 MG TAB PO (20:40)
[2022-07-04] VITALS (22 sets, daily range): BP systolic 114–145; BP diastolic 60–76; PULSE 85–108; RESP 1–24; TEMP 36.8–37.2; O2SAT 88–98
--- NOTE | 2022-07-04 00:27 | NUR.NOTE ---
Nursing Note: Patient with seizure pads in place secondary to history of seizure disorder.
[2022-07-04] MEDS: Enoxaparin 40 MG/0.4 ML SYR SC (01:46)
[2022-07-04] MEDS: Normal Saline Flush 10 ML SYR IVP ×2 (01:47→04:46)
[2022-07-04] MEDS: cefTRIAXone 1 GM/50 ML BAG IVPB (01:48)
--- NOTE | 2022-07-04 02:21 | NUR.NOTE ---
Nursing Note: Patient with diuresis of 1450 ml of pale, clear, yellow urine after administration of IV lasix @ midnight. Spoke with Dr Ethan Irvin and received TVO for BMP labwork in the morning. Order entered.
[2022-07-04] MEDS: Levalbuterol 0.63 MG/3 ML UPD VIAL UPD ×3 (04:00→12:06)
[2022-07-04 06:31] LABS: Anion Gap 8.6 mmol/L (3-11); BUN 9 mg/dL (7-18); CO2 27.4 mmol/L (21.0-32.0); CREATININE 0.6 mg/dL (0.55-1.02); Calcium 8.2 mg/dL (8.5-10.1); Chloride 104 mmol/L (98-107); Estimated GFR 102.69 (mL/min/1.73m2); Glucose 86 mg/dL (74-106); Potassium 3.6 mmol/L (3.5-5.1); Sodium 140 mmol/L (136-145)
[2022-07-04] MEDS: VANCOMYCIN 750 MG in Normal Saline 250 ML 250 MG IV (07:29)
--- NOTE | 2022-07-04 08:42 | PDOC.CMPRO ---
- If Service Date Differs Date of service: 07/04/22 Time of Service: 08:42 Care Management Progress Note S/O: Cinthya being closely monitored and treated for Influenza. She has a HX of Chronic Seizure disorder. Per MD, breakthrough seizure is likely secondary to her fever and her acute respiratory process. Cinthya's home provider is at her bedside. Echo is pending for today. Per provider, Cinthya is nearing readiness for discharge. Discharge is anticipated later today or tomorrow. A: 61 year old female admitted to [facility] on 06/30/22 for Seizure disorder, CP, hyponatremia, influenza P: Cinthya will return home into the care of her shared living provider/real time operator caregiver, who will transport her via private vehicle. She will follow up with her PCP and discharge plan of care. CM will continue to follow. Guardian Fifi Castillo Caregiver Lulu Arellano
[2022-07-04] MEDS: Zonisamide 100 MG CAP PO (09:39)
[2022-07-04] MEDS: Magnesium Lactate-SR 84 MG TABCR PO (09:40)
[2022-07-04] MEDS: Oseltamivir 30 MG CAP PO (09:40)
[2022-07-04] MEDS: Sertraline 100 MG TAB PO (09:40)
[2022-07-04] MEDS: Lactobacillus Acidophilus CAP 1 CAP PO (09:44)
[2022-07-04] MEDS: Potassium Chloride 10 MEQ CAPCR 20 MEQ PO (09:45)
[2022-07-04] MEDS: levETIRAcetam 1,000 MG in Normal Saline 100 ML 100 MG IVPB (10:08)
--- NOTE | 2022-07-04 10:15 | DI.US_ITS ---
APPROVED REPORT EXAM: Comprehensive 2D, Doppler, and color-flow Echocardiogram Patient Location: In-Patient Room/Bed: [facility] Ota: Victorina Ye RDCS (AE) Indications: Edema, Other Information Study Quality: Adequate. Technically limited study due to inability to position patient exam done sup ine,unable to do subcostal patient pushed my hand away.. Conclusion Technically difficult but adequate study Normal left ventricular wall thickness and chamber size. Estimated ejection fraction is 60%. Wall m otion is normal Normal right ventricular size and systolic function Both atria are normal in size No structural or hemodynamically significant valvular disease was identified Wall motion Left Ventricle The left ventricle is normal size. The left ventricular systolic function is normal. The left ventric ular ejection fraction is within the normal range. There is normal left ventricular wall thickness. T here is normal LV segmental wall motion. LVEF is 60%. Right Ventricle The right ventricle is normal size. The right ventricular systolic function is normal. Atria The left atrium size is normal. The right atrium size is normal. Aortic Valve Aortic valve is probably trileaflet. There is no aortic valvular stenosis. No aortic regurgitation is present. Mitral Valve The mitral valve is normal in structure. No evidence of mitral valve stenosis. Trace to mild mitral r egurgitation. Tricuspid Valve The tricuspid valve is normal in structure. There is no tricuspid valve stenosis. Trace tricuspid reg urgitation. Pulmonic Valve The pulmonary valve is normal in structure. There is no pulmonic valvular stenosis. There is no pulmo vicki valvular regurgitation. Great Vessels The aortic root is normal in size. The ascending aorta is normal in size. The IVC was not visualized. Pericardium No subcostal imaging patient pushed hand away. 2D Dimensions IVSD d PLAX 0.95 cm F: 0.6-1.0 LV Vol A2C d MOD 58.7 mL LVPW d PLAX 0.95 cm F: 0.6 - 1.0 LV Vol A4C d MOD 55.4 mL LVID d PLAX 4.23 cm F: 3.8 - 5.2 LA vol/ BSA A2C s A-L 18.1 mL/m2 LVDs 2.90 cm F: 2.2 - 3.5 LA vol/ BSA A4C s A-L 28.1 mL/m2 Ao Root d 2.50 cm F: 2.7 - 3.3 LA Vol/ BSA Biplane s A-L 23.0 mL/m2 Ao Asc Diam d 2.93 cm F: 2.3 - 3.1 LA Area A4C s MOD 16.12 cm2 LV EF Teichholz 58.5 % LA Area A2C s MOD 13.23 cm2 LVEF (Feng's) 62.16 % F: 54 - 74 LV EF A4C MOD 60.4 % LV Volume 48.17 mL F: 46 - 106 LV EF A2C MOD 61.2 % LV Volume Index 30.29 mL/m2 F: 29 - 61 LV EF Biplane MOD 62.2 % LV Vol Biplane MOD 59.2 mL SV 36.79 mL FS 30.55 % SV Index 23.09 mL/m2 LV Diastology MV E' medial 0.103 (>0.07 m/s) E/A Ratio 1.1 LV E/e MED 7.45 (<14) MV E Vmax 0.77 (0.4-1.3 m/s) MV E' lateral 0.126 (>0.1 m/s) MV A Vmax 0.70 (0.4-1.3 m/s) LV E/e LAT 6.10 (<14) MV E/A Ratio 1.03 MV E/E' medial 7.49 MV E/E' lateral 6.11 Aortic Valve LVOT Area 2.87 cm2 AoV Area Vmax 2.40 cm2 LVOT Vmax 1.22 m/s AoV Area/ BSA (Vmax) 1.51 cm2/m2 LVOT Mean Beau. 0.83 m/s SOLO Mean Beau. 2.18 cm2 LVOT Peak Grad 5.9 mmHg SOLO Mean Beau. Index 1.37 cm2/m2 LVOT Mean Grad 3.2 mmHg LVOT VTI 0.238 m LVOT Diam s 1.90 cm AoV Vmax 1.46 m/s Velocity Ratio 0.83 AoV Mean Beau. 1.09 m/s AoV Peak Grad 8.5 mmHg LVOT SV 68.47 mL AoV Mean Grad 5.2 mmHg AoV VTI 0.280 m AoV Area VTI 2.45 cm2 AoV Area/ BSA (VTI) 1.54 cm/m2 Mitral Valve MV DT 246 (160-240 msec) MV PHT 71 msec MV Area PHT 3.09 cm2 MV VTI 0.174 m MV Area VTI 3.94 (4.0-6.0 cm2) Pulmonary Valve PV Vmax 0.96 (0.5-1.5 m/s) RVOT Peak Gr. 2.21 mmHg PV Peak Grad 3.7 mmHg RVOT Mean Gr. 1.05 mmHg PV Mean Grad 2.1 mmHg RVOT VTI 0.132 m PV VTI 0.167 m RVOT Vmax 0.74 m/s Tricuspid Valve TR Peak Grad 29.9 mmHg TR Vmax 2.74 m/s
--- NOTE | 2022-07-04 10:54 | W.PM.PROGNOT ---
Date of Service Date of service: 07/04/22 Time of Service: 10:54 Assessment and Plan Assessment and plan (1) Influenza A H1N1 infection: Start date: 06/30/22 Status: Acute Assessment and plan: By my calculation of her eGFR she is normal at 102 mL/minute. I feel that she has been under doses on her Tamiflu. I have asked pharmacy to correct this and put her on the full dose of Tamiflu 75 mg bid. However, I think that she has improved enough that she can return home. Family would appreciate discharge today as they are having trouble getting family members who are well enough to stay w/ her at the hospital. Multiple members have influenza. Professional time spent interviewing and examining patient, discussion of goals of care with hospital team (care management, nursing and consulting professionals) was 30 minutes. (2) Seizure disorder: Status: Chronic Assessment and plan: Continue current antiepileptic medication since. Keppra was added to her regimen we will continue the same. However it may be that her breakthrough seizure was secondary to her fever and her acute respiratory (3) Viral gastroenteritis: Start date: 06/30/22 Status: Acute Assessment and plan: Secondary to influenza. (4) Obstructive sleep apnea syndrome: Status: Chronic Assessment and plan: O2 supplementation and CPAP at night and during the day if needed with patient having chronic snoring even during the day when lying in bed which is her usual position. (5) Cerebral palsy: Status: Chronic Assessment and plan: Chronically debilitated with obesity and joint immobility with edema lower extremities from immobility as well as muscle wasting diffusely. This does compromise the patient and she is being treated for sleep apnea as well which is secondary to body build and decreased mentation chronically. She does have bronchospasm whenever she has acute respiratory infections and this will be treated aggressively. (6) Aspiration pneumonitis: Status: Ruled-out Assessment and plan: no infiltrates were seen on her repeat CXR from yesterday. she has been afebrile w/ normal WBC. However, she did have mildly increased procalcitionin of 1.5 which was higher than the 0.5 level 3 days prior. I will empirically send her home on 5 day course of Omnicef (7) DVT prophylaxis: Status: Acute Assessment and plan: on lovenox SC Subjective Subjective Interval history since last seen: Cinthya is feeling much better. She is eating and drinking better. She remains afebrile and not requiring supplemental oxygen while awake (still uses CPAP at night). She still has some bronchospasms and requires nebulizer treatments. I talked w/ her caregiver and w/ R.T. about setting her up for home nebulizers. R.T. will set this up w/ [facility]. Exam Narrative Exam Narrative: Cinthya is alert and oriented to person; she is smiling and holding her dollar bill (her caregivers give her money to get her to cooperate w/ nursing) Lungs: scattered expiratory wheezing; no rhonchi Heart: RRR Abdomen: soft, nontender, mild distension but not unusual for her. no guarding Extremities: much improvement in her edema in her hands and feet Objective Last Vital Signs Temp 37.2 C 07/04/22 08:34 Pulse 85 07/04/22 09:14 Resp 20 07/04/22 09:14 BP 145/61 H 07/04/22 04:08 Pulse Ox 96 07/04/22 09:14 Laboratory Results - last 24 hr 07/04/22 05:32 Sodium 140 Potassium 3.6 Chloride 104 Carbon Dioxide 27.4 Anion Gap 8.6 BUN 9 Creatinine 0.6 Est GFR (CKD-EPI 2020) 102.69 Glucose 86 Calcium 8.2 L
[2022-07-04 11:09] LABS: Bilirubin Negative (Negative); Blood Small (Negative); Clarity Clear (Clear); Glucose Negative (Negative); Ketones Negative (Negative); Leukocyte Esterase Negative (Negative); Nitrite Negative (Negative); Specific Gravity 1.025 (1.005-1.025); Urobilinogen 0.2 EU/dL (Up TO 0.2); pH 7.5 (5-8)
[2022-07-04 11:17] LABS: Epithelial Cells Rare HPF (Negative); Other Cells Negative (Negative); WBC Negative HPF (0-5)
[2022-07-04 11:18] LABS: Bacteria Few HPF (Negative); C & S Indicated? No; Casts Negative LPF (Negative); Crystals Negative HPF (Negative); Mucus Moderate (Negative)
[2022-07-04] MEDS: Potassium Chloride Liquid 20 MEQ PKT PO (12:16)
[2022-07-04] MEDS: Pantoprazole 40 MG TABCR PO (12:16)
[2022-07-04] MEDS: Furosemide 20 MG/2 ML VIAL IVP (12:16)
--- NOTE | 2022-07-04 12:41 | DSE_ITS ---
Date of service: 07/04/22 Time of Service: 12:41 DS: Diagnosis Discharge Diagnosis (1) Influenza A H1N1 infection: Status: Resolved Asessment and Plan: 61-year-old female with history of cerebral palsy and known seizure disorder presented to the emergency department from home with fever and nonproductive cough and dyspnea, breakthrough seizure. Patient was diagnosed with influenza A and was admitted to the intensive care unit for aggressive respiratory treatments. She was started on Tamiflu at renally adjusted doses. Patient was bolused with Keppra 1000 mg and kept on Keppra 1000 mg twice a day. Patient did well had no further seizures. She was treated with aerosolized bronchodilators. Initially she was given IV corticosteroids but this was discontinued in light of her influenza diagnosis. CT head was ordered on admission because of her seizure and was read as normal cranial CT. Chest x-ray showed no infiltrative process. Subsequent chest x-ray was follow-up on 07/03/2022 and still showed no infiltrative process. Patient was initially treated with Rocephin out of concern for possible aspiration event during her seizure. Serial labs were done including CBC that showed no leukocytosis. Patient was found to have a mild anemia with hemoglobin of 10 g. Iron studies were done and showed to be consistent with anemia of acute illness. While she had a low serum iron of 9 sh e had normal ferritin of 113 and a low TIBC of 221. She did have some transient electrolyte problems including a low potassium down to 3.3 which was corrected. She had transient hypomagnesemia which was also corrected. Patient was able to be weaned off of oxygen and as her renal function improved her Tamiflu was increased to 75 mg twice a day. Because she been over hydrated during initial resuscitation she did transiently require some IV Lasix. Patient was discharged in markedly improved condition and was not requiring any supplemental oxygen. She will continue another week of Tamiflu 75 mg twice a day. She has been prescribed albuterol aerosol treatments to be given 4 times a day as needed. She was given a short course of antibiotics as she was coughing up some purulent looking mucus probably for bronchitis. She will be treated with cefdinir 3 mg twice a day for 5 days. She was started on Keppra 1000 mg twice a day and she should follow-up with her neurologist. (2) Seizure disorder: Status: Chronic (3) Viral gastroenteritis: Status: Resolved (4) Obstructive sleep apnea syndrome: Status: Chronic (5) Cerebral palsy: Status: Chronic (6) Aspiration pneumonitis: Status: Resolved (7) DVT prophylaxis: Status: Deleted (8) Hypervolemia: Status: Acute Discharge Plan Disposition Patient Disposition: Home Condition: Improving Discharge Details Reason For Visit: Seizure Disorder, CP, Hyponatremia, Influenza Admit Date/Time: 06/30/22 21:53 Admit Provider: Ethan Ledesma Attending Provider: Ethan Ledesma Primary Care Provider: Luis Manuel Blanca Home Meds and New Rx's Prescriptions: New oseltamivir [Tamiflu] 75 mg capsule 75 mg PO BID 5 Days Qty: 10 0RF cefdinir 300 mg capsule 300 mg PO BID 5 Days Qty: 10 0RF albuterol sulfate 1.25 mg/3 mL solution for nebulization 1.25 mg inhalation QID PRNQty: 90 0RF levetiracetam [Keppra] 100 mg/mL solution 1,000 mg PO BID Qty: 473 0RF Continued diazepam 10 mg/spray (0.1 mL) spray,non-aerosol 10 mg intranasal PRN PRN rufinamide [Banzel] 400 mg tablet 800 - 1,200 mg PO TID Qty: 240 11RF Rx Instructions: 1200 mgQAM/QPM; 800 mg noontime melatonin 3 mg tablet 6 mg PO DAILY Qty: 180 3RF nystatin 100,000 unit/gram powder 1 applic Topical BID PRN Qty: 60 3RF Rx Instructions: apply to inguinal rash prn loratadine 10 mg tablet 10 mg PO DAILY PRN Qty: 90 3RF Rx Instructions: 1 TAB DAILY PRN Hinged Knee Brace Miscellaneous DAILY Qty: 1 0RF Rx Instructions: Wear knee immobilizer at all times. Locked 0-80 degrees. clotrimazole-betamethasone 1-0.05 % cream 1 applic Topical BID prn Qty: 30 0RF Rx Instructions: apply to rash under breast diazepam [Diastat AcuDial] 12.5-15-17.5-20 mg kit 20 mg [place] as directed PRN (Reason: seizure activity) Qty: 1 2RF Rx Instructions: for intractable seizure midazolam 5 mg/spray (0.1 mL) spray,non-aerosol 2.5 mg HUA DAILY PRN Epidiolex 100 mg/mL solution See Rx Instructions PO BID Rx Instructions: 4.3 ML PO twice a day; ondansetron HCl [Zofran] 4 mg tablet 4 mg PO q 8 hr prn Qty: 15 0RF Rx Instructions: for nausea/vomiting atorvastatin [Lipitor] 40 mg tablet 40 mg PO HS Qty: 90 3RF Rx Instructions: 1 TAB HS cholecalciferol (vitamin D3) 25 mcg (1,000 unit) capsule 1,000 unit PO BID Qty: 180 4RF loperamide [Imodium A-D] 2 mg capsule 2 mg PO Q4H PRN (Reason: loose stool) Qty: 30 0RF Rx Instructions: administer after each loose stool until symptoms controlled; do not exceed 8 mg per 24 hrs acetaminophen [Tylenol Extra Strength] 500 mg tablet 500 mg PO BID Qty: 180 3RF quetiapine [Seroquel] 50 mg tablet 50 mg PO HS Qty: 90 3RF lorazepam 1 mg tablet 1 - 4 mg PO DAILY PRN (Reason: seizure) Qty: 30 5RF zonisamide [Zonegran] 100 mg capsule See Rx Instructions .ROUTE .COMPLEX Qty: 270 3RF Rx Instructions: 100mg PO every AM; 200 mg po every PM sertraline 100 mg tablet 100 mg PO .AM Qty: 90 3RF ferrous gluconate 324 mg (36 mg iron) tablet 324 mg PO QAM Qty: 90 3RF phenobarbital 60 mg tablet 120 mg PO QPM clobazam [Onfi] 20 mg tablet 20 mg PO QPM esomeprazole magnesium [Nexium] 40 mg Capsule,Delayed Release(Dr/Ec) 40 mg PO DAILY@0730 Qty: 0 0RF zonisamide [Zonegran] 100 mg Capsule 200 mg PO QPM Qty: 0 0RF Discharge Instructions Instructions: Oseltamivir (By mouth), Levetiracetam (By mouth), H1N1 Influenza (DC) Referrals: Luis Manuel Blanca MD [Primary Care Provider] - 07/11/22 2:20 pm (appt with Suresh Soriano) Activity:: Activity as Tolerated Equipment/Supplies:: nebulizer Diet:: Normal Diet Discharge Orders Discharge Orders: Discharge Order (Routine); Ordered 07/04/22 Ordered By: Quinton Abad Discharge Data Discharge Date/Time-TO BE ENTERED AT DEPARTURE: 07/04/22 15:12 Discharge Comment: home with caregivers via wheel chair van DS: Summary Time Spent with Patient providing and/or coordinating discharge services: Greater than 30 minutes Specific discharge activities: Interview/exam of patient; review of discharge instructions, completion of prescriptions/discharge instructions; discussion w/ nursing and CM; documentation of hospital visit Status at Discharge Functional status at discharge: bed bound Overall status at discharge: patient is progressing back to baseline Mental Status: mental status grossly normal Speech and Movement: other Mood: congruent mood Affect: normal affect Exam Narrative Exam Narrative: Cinthya is alert and oriented to person; she is smiling and holding her dollar bill (her caregivers give her money to get her to cooperate w/ nursing) Lungs: scattered expiratory wheezing; no rhonchi Heart: RRR Abdomen: soft, nontender, mild distension but not unusual for her. no guarding Extremities: much improvement in her edema in her hands and feet Psych Mental Status: mental status grossly normal Speech and Movement: other Mood: congruent mood Affect: normal affect DS: Data Vitals/I&O Vitals and I&O: Vital Signs Temperature 37.2 C 07/04/22 12:09 Temperature Source Temporal Artery Scan 07/04/22 12:09 Pulse 92 H 07/04/22 12:09 Pulse Rhythm Regular 07/04/22 08:25 Pulse 86 07/03/22 22:00 Respiratory Rate 20 07/04/22 12:09 Respiratory Effort Non-Labored 07/04/22 08:25 Respiratory Depth Normal 07/04/22 08:25 Respiratory Pattern Normal 07/04/22 08:25 Blood Pressure 114/60 07/04/22 12:09 Blood Pressure Mean 74 07/04/22 12:05 Blood Pressure Position Supine 07/03/22 09:00 Pulse Oximetry 94 07/04/22 12:05 Oxygen Delivery Method Room Air 07/04/22 12:09 Oxygen Flow Rate 0 07/04/22 12:09 Fraction of Inspired Oxygen (FIO2) 21 07/04/22 08:34 Pain Level 0 07/04/22 12:09 Comment 07/04/22 08:34 Intake & Output 07/03/22 07/04/22 07/04/22 23:59 11:59 23:59 Intake Total 2485.333 / 3348.666 470 / 470 Output Total 1900 / 2595 2380 / 2440 60 / 2440 Balance 585.333 / 753.666 -1910 / -1969 -60 / -1969 Weight 68.2 kg Intake: IV 1528.333 / 2391.666 470 / 470 Oral 957 / 957 Output: Urine 0 / 2595 2380 / 2440 60 / 2440 Other: Urine Color Pale Yellow Yellow Urine Appearance Clear Clear Clear Comment Brooks drainage bag emptied at this time. Stool Size Large Large Stool Characteristics Soft Liquid Brown Brown Data Completed and Pending Labs on day of discharge: Labs from last 24 hours 07/04/22 07/04/22 11:00 05:32 Sodium 140 Potassium 3.6 Chloride 104 Carbon Dioxide 27.4 Anion Gap 8.6 BUN 9 Creatinine 0.6 Est GFR (CKD-EPI 2020) 102.69 Glucose 86 Calcium 8.2 L Urine Color Yellow Urine Clarity Clear Urine pH 7.5 Ur Specific [place] 1.025 Urine Protein 100 H Urine Ketones Negative Urine Blood Small H Urine Nitrite Negative Urine Bilirubin Negative Urine Urobilinogen 0.2 Ur Leukocyte Esterase Negative Urine RBC 5-10 H Urine WBC Negative Ur Epithelial Cells Rare Urine Crystals Negative Urine Bacteria Few Urine Casts Negative Urine Mucus Moderate Urine Other Negative Ur Culture Indicated? No Urine Glucose Negative 07/04/22 11:00 Urine - Cath Brooks Indwelling Urine Culture - Pending 07/03/22 12:44 Nose MRSA Screen - Pending Preliminary micro results at discharge 07/04/22 11:00 Urine Culture - Pending Urine - Cath Brooks Indwelling 06/30/22 18:26 Blood Culture - Preliminary Blood NO GROWTH 72 HOURS 06/30/22 18:26 Blood Culture - Preliminary Blood NO GROWTH 72 HOURS 07/03/22 12:44 MRSA Screen - Pending Nose PFSH All Active Problems (Updated 07/05/22 @ 00:08 by CATALINA HERNANDEZ) Hypervolemia (Acute) Hypervolemia (Acute) Seizure (Acute) Diarrhea (Acute) Obstructive sleep apnea syndrome (Chronic 07/06/07) severe [facility]; CPAP Cerebral palsy (Chronic) Significant cognitive delay. Seizure disorder (Chronic 11/15/12) Break-thru seizures. Medical History Acquired deformity of right knee (03/25/16) Edema Edema lower extremities Gastroesophageal reflux disease Gastroesophageal reflux disease 03/20 EGD duodenal ulcer and gastritis (? due to Depakote) vomiting Headache History of surgery Appendectomy. Cholecystectomy. Vagal nerve stimulator. Recurrent lower extremity fractures - history of ORIF of her ankle. Hypercholesterolemia Hyperlipidemia Hyperlipidemia (07/05/11) Iron deficiency anemia Iron deficiency anemia (03/06/14) Mental deficiency Obesity Osteoporosis 2003 T-2.7; 2005 T-2.4; 2007 stable at T-2.4 Polyp of colon (07/06/07) tubular adenoma Seizure disorder Surgical History Cholecystectomy (~2003) EGD - MAC (07/12/14) Fracture, Open Treatment RIGHT ANKLE History of open reduction and internal fixation (ORIF) procedure Family History Mother Essential hypertension Diabetes TYPE II Dementia Hyperlipidemia Father , late 80s Essential hypertension Diabetes TYPE II Heart disease Hyperlipidemia Brother Diabetes Heart disease Hyperlipidemia Brother No problems noted. Social History Smoking/Tobacco Use Status: Never Smoking risk assessment performed?: Yes Alcohol Intake: never Drug use: Never Substance use type: does not use Caregiver/Support person: Yes Household members: caregiver Housing: house Do you need help understanding health information?: Always Pets and animals: Yes Pets and animals: cat(s) and dog(s) Sexually active: No What is your relationship status?: never Panel score (0-1 are the most socially isolated patients): 0 Seatbelt use: always Additional Social history: unable to assess
--- NOTE | 2022-07-04 13:25 | PDOC.CMDIS ---
- If Service Date Differs Date of service: 07/04/22 Time of Service: 13:25 LACE Index Scoring Tool - Questions: Length of Stay (in days): 4 - 6 Acuity (Admit via E.D.?): Yes E.D. Visits: 2 - Answers: Total Score: 9 Risk of Readmission: Low Risk Care Management Discharge Reason for Hospitalization: Seizure disorder, CP, hyponatremia, influenza Discharge Plan: Cinthya is discharged home via private w/c van with Caregiver. New RX's are printed. Nebulizer through [facility] is provided, prior to discharge. Cinthya will follow up with her PCP on 07/11/22, as scheduled. No new H services are ordered. Per RT, tubing on pts Bi-Pap is functional, but should be replaced (RT contacted [facility] for service). CM reviewed this discharge plan with patients Guardian Fifi Zarianicholas. Patient/Family Education Needs: Review discharge instructions, limitations, medications and plan to follow up with community providers. Discuss ask me three and goals of self care. Services Needed at Discharge: DME Agency ([facility]-Nebulizer and service order for Bi-Pap tubing (Guardian to follow up with [facility]). )
--- NOTE | 2022-07-04 13:46 | RESPIRATORY ---
[facility] called concerning issue with [id number] VAUTO machine's cord not staying plugged into machine. RT informed DME that the cord is causing the device to be unsafe for patient to use in the night due to cord. Patient has mobility issues which cause her to have caregivers around 24/7. RT was informed patient recieved device on July 11, 2018 and is not 5 years old in order for patient to be able to get a new device. RT discussed with [facility] to see if there's a possible for the patient to received a rental unit to then be able to send her Bipap in for repairs. [facility] stated she would let the CPAP/BiPAP team know so they can check device out and to have caregiver give them a call to discuss this more.
== END 2022-07-04 15:12 | disposition home or self-care (01) | DRG 101 ==
LOC: ER 22:47 → ICU 07-01 08:13
PROVIDERS: General Practice; Internal Medicine; Admitting Provider Family Medicine; Emergency Provider Emergency Medicine; PCP Family Medicine; Visit Provider Family Medicine
DX: G40.909 Epilepsy, unspecified, not intractable, without status epilepticus (principal); A08.39 Other viral enteritis; E87.1 Hypo-osmolality and hyponatremia; E87.20 Acidosis, unspecified; G47.33 Obstructive sleep apnea (adult) (pediatric); G80.9 Cerebral palsy, unspecified; Z79.899 Other long term (current) drug therapy; E78.5 Hyperlipidemia, unspecified; D50.9 Iron deficiency anemia, unspecified; E78.00 Pure hypercholesterolemia, unspecified; M81.0 Age-related osteoporosis without current pathological fracture; F79 Unspecified intellectual disabilities; R73.9 Hyperglycemia, unspecified; J10.1 Influenza due to other identified influenza virus with other respiratory manifestations
CPT/HCPCS: 36415; 36416; 51702; 80048; 80053; 82805; 82962; 84145; 85027; 87040; 87081; 87637; 93005; 93306; 96361; 96365; 96366; 96367; 99285; J1650; 70450; 71045; 81003; 81015; 82607; 82728; 82746; 83540; 83550; 83605; 83735; 83880; 84132; 84443; 85025; 86140; 87086; 93010; 94640; 94667; 94668; 99223; 99233; 99239; 99291; J0131; J0696; J1885; J1941; J1953; J2930; J3480; J3490; J7613; J7614; J7620

== ENCOUNTER 2022-11-02 13:23 | Outpatient (REF) | payer MEDICARE, MEDICAID, SELFPAY ==
[2022-11-02 14:24] LABS: C Diff PCR Negative (Negative)
== END 2022-11-02 13:24 | disposition home or self-care (01) ==
LOC: LBN 13:23
PROVIDERS: PCP Family Medicine; Visit Provider Nurse Practitioner Adult Health
DX: K52.9 Noninfective gastroenteritis and colitis, unspecified (principal)
CPT/HCPCS: 87493

== ENCOUNTER 2022-12-22 03:15 | Outpatient (CLI) | payer MEDICARE, MEDICAID, SELFPAY ==
[2022-12-22 17:04] LABS: ALT 19 U/L (14-59); AST 17 U/L (15-37); Alkaline Phosphatase 147 U/L (46-116); Anion Gap 10.9 mmol/L (3-11); BUN 17 mg/dL (7-18); Bilirubin, Total 0.2 mg/dL (0.2-1.0); CO2 26.1 mmol/L (21.0-32.0); CREATININE 0.6 mg/dL (0.55-1.02); Calcium 8.9 mg/dL (8.5-10.1); Chloride 103 mmol/L (98-107); Estimated GFR 102.06 (mL/min/1.73m2); Glucose 90 mg/dL (74-106); PHENOBARBITAL 34.4 ug/mL (15.0-40.0); Potassium 3.8 mmol/L (3.5-5.1); Sodium 140 mmol/L (136-145); Total Protein 7.8 g/dL (6.4-8.2)
[2022-12-26 13:58] LABS: Levetiracetam 37.5 mcg/mL
== END 2022-12-22 03:16 | disposition home or self-care (01) ==
LOC: LBO 03:15
PROVIDERS: PCP Family Medicine; Visit Provider Nurse Practitioner Adult Health
DX: G40.814 Lennox-Gastaut syndrome, intractable, without status epilepticus (principal); Z51.81 Encounter for therapeutic drug level monitoring; Z79.899 Other long term (current) drug therapy
CPT/HCPCS: 36415; 80053; 80346; 80177; 80184; 85025

== ENCOUNTER 2023-10-04 03:15 | Outpatient (CLI) | payer MEDICARE, MEDICAID, SELFPAY ==
[2023-10-04 17:13] LABS: PHENOBARBITAL 33.6 ug/mL (15.0-40.0)
[2023-10-04 17:30] LABS: ALT 23 U/L (14-59); AST 13 U/L (15-37); Alkaline Phosphatase 133 U/L (46-116); Anion Gap 9.7 mmol/L (3-11); BUN 9 mg/dL (7-18); Bilirubin, Total 0.2 mg/dL (0.2-1.0); CO2 28.3 mmol/L (21.0-32.0); CREATININE 0.7 mg/dL (0.55-1.02); Calcium 9.2 mg/dL (8.5-10.1); Chloride 104 mmol/L (98-107); Estimated GFR 97.72 (mL/min/1.73m2); Glucose 108 mg/dL (74-106); Potassium 3.8 mmol/L (3.5-5.1); Sodium 142 mmol/L (136-145); TSH (W/Ref FT4) 2.56 uIU/mL (0.36-3.74); Total Protein 7.4 g/dL (6.4-8.2)
[2023-10-07 10:58] LABS: Levetiracetam 50.4 mcg/mL
== END 2023-10-04 03:16 | disposition home or self-care (01) ==
PROVIDERS: PCP Family Medicine; Visit Provider Nurse Practitioner Adult Health
DX: E03.9 Hypothyroidism, unspecified (principal); R10.9 Unspecified abdominal pain; G40.814 Lennox-Gastaut syndrome, intractable, without status epilepticus
CPT/HCPCS: 36415; 80053; 80346; 80177; 80184; 84443; 85025

== ENCOUNTER 2023-10-06 02:42 | Outpatient (CLI) | payer MEDICARE, MEDICAID, SELFPAY ==
[2023-10-06 16:31] LABS: Abs Immature Grans 0.07 10^3/uL (0.0-0.06); Absolute Basophil Count 0.04 10^3/uL (0.0-0.2); Absolute Eosinophil Count 0.17 10^3/uL (0.0-0.7); Absolute Lymphocyte Count 2.65 10^3/uL (1.2-3.4); Absolute Monocyte Count 0.39 10^3/uL (0.1-0.8); Absolute Neutrophil Count 4.05 10^3/uL (1.2-6.7); Basophils % 0.5; Eosinophils % 2.3; HCT 38.5 % (36.0-46.0); HGB 12.8 g/dL (11.2-15.7); Immature Grans % 0.9; MCH 29.4 pg (27.0-33.0); MCHC 33.2 % (32.0-36.0); MCV 88 fL (80-95); MPV 9.5 fL (8.0-11.0); Monocytes % 5.3; Platelet Count 275 10^3/uL (130-400); RBC 4.36 10^6/uL (3.93-5.22); RDW-SD 41.9 fL; WBC 7.37 10^3/uL (4.4-10.8)
== END 2023-10-06 02:43 | disposition home or self-care (01) ==
LOC: LBO 02:43
PROVIDERS: PCP Family Medicine; Visit Provider Family Medicine
DX: D64.9 Anemia, unspecified (principal)
CPT/HCPCS: 85025

== ENCOUNTER 2024-06-28 21:55 | Outpatient (REF) | payer MEDICARE, MEDICAID, SELFPAY ==
[2024-06-28 21:35] LABS: Abs Immature Grans 0.01 10^3/uL (0.0-0.06); Absolute Basophil Count 0.03 10^3/uL (0.0-0.2); Absolute Lymphocyte Count 1.96 10^3/uL (1.2-3.4); Absolute Monocyte Count 0.27 10^3/uL (0.1-0.8); Absolute Neutrophil Count 3.06 10^3/uL (1.2-6.7); Basophils % 0.6 %; HCT 40.8 % (36.0-46.0); HGB 13.2 g/dL (11.2-15.7); Immature Grans % 0.2 %; Lymphocytes % 36.8 %; MCH 28.8 pg (27.0-33.0); MCHC 32.4 % (32.0-36.0); MCV 89 fL (80-95); MPV 10.5 fL (8.0-11.0); Monocytes % 5.1 %; Neutrophils % 57.3 %; Platelet Count 265 10^3/uL (130-400); RBC 4.59 10^6/uL (3.93-5.22); RDW 13.2 % (11.7-14.6); RDW-SD 42.7 fL; WBC 5.33 10^3/uL (4.4-10.8)
--- OUTSIDE RECORDS SUMMARY | 2024-06-28 21:57 | XMS_ITS | Encounter Summary ---
[place] [address] Care Team Providers Care Unpaid Intern Name Role Phone Luis Manuel Blanca MD Primary Care Provider [phone] Encounter Details Date Type Department Care Team (Late st Contact Info) Description 01/25/2024 [place]phone [place] [address] Sarah Serra APRN [facility] [place] [address] Social History Tobacco Use Types Packs/Day Years Used Date Smoking Tobacco: Never Smokeless Tobacco: Never Alcohol Use Standard Drinks/Week Comments No 0 (1 standard drink = 0.6 oz pur e alcohol) Sex and Gender Information Value Date Recorded Sex Assigned at Not on file Gender Identity Not on file Sexual Orientation Not on file documented as of this encounter Miscellaneous Notes * Telephone Encounter - Leonie Mckay RN - 01/25/2024 3:43 PM EDT Called [facility]. PCP Luis Manuel Blanca prescribed Ativan 1mg, 1 tab at bedtime for sleep disturbances 01/18/24 (first time) and it was dispensed that day. Spoke with Lulu (DPR on file). PCP prescribed Ativan HS for sleep x 14 days (01/09-01/23) as a trial, It took a while to obtain pcp prescription bc of existing ativan rx, so they started trial with supply at home. She stopped last night and slept well. They do not plan to continue this at night unless sleep disturbances arise again. To note- they do have enough Ativan in the house to continue using for rescue if needed. Can DPR form please be mailed to faiza Romero- [address] [place] [id number] They will bring it back to [facility] 02/12/24 with Crescencio designated as an additional [facility]. * Telephone Encounter - Angelica Real RN - 01/25/2024 11:38 AM EDT Copied from [facility] #[id number]. Topic: Specialty Dept CRMs - Generic Call >> Jan 25, 2024 10:43 AM Shakira Reyes wrote: Specialist: Maryse Relationship (if other than patient-full name): Crescencio- foster care worker Reason for Call: Crescencio calling back checking on wether the provider will be reaching out today to discuss the patient as she will be unavailable for the providers call this afternoon and if she cannot be reached this morning to please call Lulu Arellano see 01/18 encounter pr on file for lulu documented in this encounter Plan of Treatment Upcoming Encounters Date Type Department Care Team (Late st Contact Info) Description 08/06/2024 11:00 AM EST Office [place] [address] Sarah Serra APRN [facility] [address] documented as of this encounter Goals Goal Patient Goal Type Associated Problems Recent Progress Patient-Stated? Author [facility] Medication Compliance and Understanding Patient Facing Action Plan On track( 024 12:05 PM EDT) No Arnel Benitez, [facility] Note: Patient's specific desired goal: reduce number of seizures, with secondary goal of being able to taper some of the other AEDs being used Measured by: seizure record, side effects exhibited Time-frame to meet goal: 3-6 months documented as of this encounter Visit Diagnoses Not on filedocumented in this encounter Care Teams Unpaid Intern Relationship Specialty Start Date End Date Luis Manuel Blanca MD [address] [place] [address] PCP - General Family Medicine 06/24/16 documented as of this encounter
--- OUTSIDE RECORDS SUMMARY | 2024-06-28 21:57 | XMS_ITS | Encounter Summary ---
Author Organization [facility] Address [address] [place] [address] Care Team Providers Care Civil Engineering Specialist Name Role Phone Cee Escobar MD Primary Care Provider Encounter Details Date Type Department Care Team (Latest Contact Info) Description 08/12/2014 9:20 EST - 08/12/2014 23:59 EST Hospital Encounter [address] [address] Unknown, Provider, MD Discharge Disposition: Home or Self Care Social History Tobacco Use Types Packs/Day Years Used Date Smoking Tobacco: Never Assessed Comments Unknown Sex and Gender Information Value Date Recorded Sex Assigned at Not on file Legal Sex Female 17:36 EST Gender Identity Not on file Sexual Orientation Not on file documented as of this encounter Discharge Disposition Disposition Code Departure Means Destination Home or Self Jail documented in this encounter Plan of Treatment Not on file documented as of this encounter Visit Diagnoses Not on filedocumented in this encounter Care Teams Civil Engineering Specialist Relationship Specialty Start Date End Date Cee Escobar MD [address] [place] [address] [place] [address] PCP - General 09/07/12 documented as of this encounter
--- OUTSIDE RECORDS SUMMARY | 2024-06-28 21:57 | XMS_ITS | Encounter Summary ---
Author Organization [facility] Address [address] [place] [id number] Care Team Providers Care Barker Operator Name Role Phone Cee Escobar MD Primary Care Provider [phone] Encounter Details Date Type Department Care Team (Latest Contact Info) Description 01/30/2015 15:00 EDT - 01/30/2015 23:59 EDT Hospital Encounter [address] [address] Unknown, Provider, MD Discharge Disposition: Home or [...] Code Departure Means Destination Home or Self Correction documented in this encounter Plan of Treatment Not on file documented as of this encounter Visit Diagnoses Not on filedocumented in this encounter Care Teams Barker Operator Relationship Specialty Start Date End Date Cee Escobar MD [address] [place] [address] [place] [address] PCP - General 09/07/12 documented as of this encounter
--- OUTSIDE RECORDS SUMMARY | 2024-06-28 21:57 | XMS_ITS | Encounter Summary ---
[place] [address] Care Team Providers Care Director School Of Nursing Name Role Phone Luis Manuel Blanca MD Primary Care Provider [phone] [phone] Reason for Visit * Reason Comments Medication Refill Encounter Details Date Type Department Care Team (Late st Contact Info) Description 03/25/2024 [place] [address] Sarah Serra APRN [facility] [place] [address] Social History Tobacco Use Types Packs/Day Years [...] encounter Miscellaneous Notes * Telephone Encounter - Tiff Gramajo RN - 03/26/2024 10:43 AM EDT Prescription Renewal Request Name: Cinthya Brown : 1960 Prescription(s) Requested: Requested Prescriptions Pending Prescriptions Disp Refills zonisamide (Zonegran) 100 mg capsule [Pharmacy Med Name: Zonisamide 100MG CAPS] 84 capsule 11 Sig: TAKE 1 CAPSULE BY MOUTH EVERY MORNING AND TAKE 2 CAPSULES EVERY EVENING PHENobarbitaL 60 mg tablet [Pharmacy Med Name: PHENobarbital 60MG TABS*] 56 tablet Sig: TAKE 2 TABLETS BY MOUTH EVERY NIGHT Onfi 20 mg tablet [Pharmacy Med Name: Onfi 20MG TABS] 28 tablet Sig: TAKE 1 TABLET BY MOUTH EVERY EVENING Date of Last Encounter: 02/12/24 She has been having some increased seizure frequency over the past month, it is possible that this is secondary to her lower Keppra dose or perhaps that her VNS battery is in fact becoming depleted. Still no IPI indicator on so we will first increase the Keppra back up to its previous dose. They will call us if behavioral issues return. They will also call us if seizures continue if so we will move forward with they have earlier VNS Next Encounter: 05/14/2024 Date of Last Refill: 04/11/23 Zonisamide, 10/11/23 Phenobarbital and Onfi. Medication category requirements (labs etc): n/a Status of request: Pended Allergies Allergen Reactions Amoxicillin-Pot Clavulanate Rash Risedronate Sodium Nausea And Vomiting Tiff Gramajo RN 03/26/24 10:47 AM documented in this encounter Plan of Treatment Upcoming Encounters Date Type Department Care Team (Late st Contact Info) Description 08/06/2024 11:00 AM EST [place] [address] Sarah Serra APRN [facility] [place] [address] documented as of this encounter Goals Goal Patient Goal Type Associated Problems Recent Progress Patient-Stated? Author [facility] Medication Compliance and Understanding Patient Facing Action Plan On track( 024 12:05 PM EDT) Arnel Hurd [facility] Note: Patient's specific desired goal: reduce number of seizures, with secondary goal of being able to taper some of the other AEDs being used Measured by: seizure record, side effects exhibited Time-frame to meet goal: 3-6 months documented as of this encounter Visit Diagnoses Not on filedocumented in this encounter Care Teams Director School Of Nursing Relationship Specialty Start Date End Date Luis Manuel Blanca MD [address] [place] [address] PCP - General Family Medicine 06/24/16 documented as of this encounter
--- OUTSIDE RECORDS SUMMARY | 2024-06-28 21:57 | XMS_ITS | Encounter Summary ---
[place] [address] Care Team Providers Care Course Developer Name Role Phone Luis Manuel Blanca MD Primary Care Provider [phone] [phone] Encounter Details Date Type Department Care Team (Latest Contact Info) Description 02/14/2024 Specialty Pharmacy [place] [address] John Gil CPHT Refill Coordination - 30 day recurrence (cannabidiol (CBD)) for Seizure Disorder Social History Tobacco Use Types Packs/Day Years Used Date Smoking Tobacco: Never Smokeless Tobacco: Never Alcohol Use Standard Drinks/Week Comments No 0 (1 standard drink = 0.6 oz pur e alcohol) Sex and Gender Information Value Date Recorded Sex Assigned at Not on file Gender Identity Not on file Sexual Orientation Not on file documented as of this encounter Progress Notes * John Gil CPHT - 02/14/2024 2:15 PM EDT Clinical Management Plan: Refill Specialty Pharmacy Consultation; John Gil CPHT Comprehensive Medication Management (CMM) Cinthya Brown Ms. Cinthya Brown is a 63 y.o. (1960) female who was contacted in regard to a specialty medication refill reminder. The caregiver. Caregiver name: Mother requested a refill of Epidiolex. A review of the medication therapy was performed. The medication was refilled as scheduled, and all medication related questions and concerns were addressed. The specialty pharmacy staff will follow up withthe patient 5-7 days prior to next refill. Was a change made to the Care Plan: No Allergies and Drug intolerance: Allergies Allergen Reactions Amoxicillin-Pot Clavulanate Rash Risedronate Sodium Nausea And Vomiting Medication Reconciliation Discrepancies (compared to [facility] med list) No Specialty Pharmacy Refill Questionnaire More data exists 02/14/2024 Refill Questionnaire What is the name of the specialty medication you are refilling? Epidiolex Are you taking any new medications? No Any new medical conditions? No Any new allergies? No Any new side effects that are bothersome? No What date will you need this fill by? 02/21/2024 Details Adherence: Any missed doses? No Patient understands no changes to current drug regimen were made. John Gil CPHT 02/14/24 2:17 PM documented in this encounter Plan of Treatment Upcoming Encounters Date Type Department Care Team (Late st Contact Info) Description 08/06/2024 11:00 AM EST Office [place] [address]N [facility] [place] [address] documented as of this encounter Goals Goal Patient Goal Type Associated Problems Recent Progress Patient-Stated? Author [facility] Medication Compliance and Understanding Patient Facing Action Plan On track( 024 12:05 PM EDT) No Arnel Benitez, [facility] Note: Patient's specific desired goal: reduce number of seizures, with secondary goal of being able to taper some of the other AEDs being used Measured by: seizure record, side effects exhibited Time-frame to meet goal: 3-6 months documented as of this encounter Visit Diagnoses Not on filedocumented in this encounter Care Teams Course Developer Relationship Specialty Start Date End Date Luis Manuel Blanca MD [address] [place] [address] [address] [place] [address] PCP - General Family Medicine 06/24/16 documented as of this encounter
--- OUTSIDE RECORDS SUMMARY | 2024-06-28 21:57 | XMS_ITS | Encounter Summary ---
Author Organization [facility] [place] [address] Care Team Providers Care Packaging Associate Name Role Phone Luis Manuel Blanca MD Primary Care Provider [phone] Encounter Details Date Type Department Care Team (Latest Contact Info) Description 02/12/2024 Travel Social History Tobacco Use Types Packs/Day Years Used Date Smoking Tobacco: Never Smokeless Tobacco: Never Alcohol Use Standard Drinks/Week Comments No 0 (1 standard drink = 0.6 oz pur e alcohol) Sex and Gender Information Value Date Recorded Sex Assigned at Not on file Gender Identity Not on file Sexual Orientation Not on file documented as of this encounter Plan of Treatment Upcoming Encounters Date Type Department Care Team (Late st Contact Info) Description 08/06/2024 11:00 AM EST Office [place] [address] Sarah Serra APRN [facility] [place] [address] documented as of this encounter Goals Goal Patient Goal Type Associated Problems Recent Progress Patient-Stated? Author [facility] Medication Compliance and Understanding Patient Facing Action Plan On track( 024 12:05 PM EDT) No Arnel Benitez, [facility] Note: Patient's specific desired goal: reduce number of seizures, with secondary goal of being able to taper some of the other AEDs being used Measured by: seizure record, side effects exhibited Time-frame to meet goal: 3-6 months documented as of this encounter Visit Diagnoses Not on filedocumented in this encounter Care Teams Packaging Associate Relationship Specialty Start Date End Date Luis Manuel Blanca MD [address] [place] [address] PCP - General Family Medicine 06/24/16 documented as of this encounter
--- OUTSIDE RECORDS SUMMARY | 2024-06-28 21:57 | XMS_ITS | Clinical Summary ---
Author Organization Formerly [facility] Address [facility] [place] [address] Care Team Providers Care Clinical Resource Director Name Role Phone Luis Manuel Blanca MD Primary Care Provider [phone] Allergies Active Allergy Reactions Criticality Noted Date Comments Amoxicillin 06/19/2024 Amoxicillin-Pot Clavulanate Rash Medium Risedronate Sodium Nausea And Vomiting Low Medications Medication Sig Dispensed Refills Start Date End Date Status atorvastatin (LIPITOR) 40 mg tablet Take 40 mg by mouth daily. Active esomeprazole (NEXIUM) 40 mg Capsule, Delayed Release(E.C.) Take 40 mg by mouth daily. Reported on 11/18/2016 Active ferrous sulfate 325 mg (65 mg iron) Tablet Take 325 mg by mouth daily. Active loratadine (CLARITIN) 10 mg Tablet Take 10 mg by mouth daily as needed for Allergies. Active QUEtiapine (SEROQUEL) 50 mg Tablet Take 150 mg by mouth nightly. Active acetaminophen (TYLENOL) 500 mg Tablet Take 500 mg by mouth 2 times daily. Active clotrimazole-betame thasone (LOTRISONE) 1-0.05 % Cream Apply 1 Application topically as needed. 0 01/12/2019 Active NYSTOP Powder Apply 1 Application topically as needed. 0 11/27/2018 Active albuteroL (ACCUNEB) 1.25 mg/3 mL Solution for Nebulization INHALE THE CONTENTS OF ONE VIAL VIA NEBULIZER FOUR TIMES A DAY NEEDED 07/04/2022 Active bisacodyl EC (Dulcolax) 5 mg Tablet, Delayed Release (E.C.) 5 mg daily as needed. Active ondansetron (ZUPLENZ ORAL) ondansetron 4MG Tablet 1 Tab PO q8 hr PRN Active polyethylene glycoL (Miralax) 17 gram Powder in Packet daily as needed. Ac tive loperamide (IMODIUM A-D) 2 mg Tablet Take 2 mg by mouth 4 times daily as needed for Diarrhea. Maximum 16 mg in 24 hours Active budesonide (Uceris) [address], ER tablet 03/31/2023 Active diphenoxylate-atrop ine (Lomotil) 2.5-0.025 mg tablet 04/03/2023 Activ e cholecalciferol, Vitamin D3, (Vitamin D) 25 mcg (1,000 unit) Capsule Take 1 capsule by mouth 2 times daily. 60 capsule 11 04/11/2023 Active sertraline (Zoloft) 100 mg tablet TAKE ONE TABLET BY MOUTH EVERY DAY 90 tablet 3 04/11/2023 Active pantoprazole EC (Protonix) [address] tablet Take 40 mg by mouth daily. 10/16/2023 Active melatonin 3 mg tablet Take 6-9 mg nightly as needed for sleep. 90 tablet 11/30/2023 Active diazePAM (Valtoco) 10 mg/spray (0.1 mL) [place], Non-Aerosol 10 mg by Nasal route as needed (seizure clusters (call if ineffective) Max dose 10mg daily unless instucted otherwise by office.). 2 each 3 01/04/2024 Active rOPINIRole (Requip) 0.5 mg tablet 01/22/2024 Active levETIRAcetam (Keppra) 1,000 mg tablet Take 1 tablet by mouth 2 times daily. 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 Day1:take 2 tablets daily, Day 2-5:Take one tablet daily 6 tablet 06/19/2024 Active LORazepam (Ativan) 2 mg tabletIndications:E pilepsy seizure, generalized, convulsive Take 2mg nightly for sleep, in addition may take and additional half tab BY MOUTH AT ONSET OF SEIZURE SYMPTOMS IF NOT EFFECTIVE MAY REPEAT DOSE (Max 4mg daily) 35 tablet 3 06/19/2024 Active Active Problems Patient Care Coordination No te Formatting of this note migh t be different from the original. [facility] specialty pharmacy - for sharlene phone # [phone] fax # [phone] Problem Noted Date Diagnosed Date [place]-Gastaut syndrome 01/23/2020 CAP (community acquired pneumonia) 07/12/2016 Epilepsy with status epilepticus 07/12/2016 Seizure 07/09/2016 Status epilepticus 10/27/2010 Sleep apnea 10/27/2010 Mental retardation 10/27/2010 Encounters Date Type Department Care Team Description 06/24/2024 Specialty [place] [phone] Junior Daily, [facility] Refill Coordination - 30 day recurrence (cannabidiol (CBD)) for Seizure Disorder 06/18/2024 [place] [address] Sarah Serra APRN Seizures 06/18/2024 [place] [address] Sarah Serra APRN Other (Med issue) 06/05/2024 [place] [address] Sarah Serra APRN Dental Injury 05/30/2024 Specialty [place] [address] Jia Greco, [facility] Refill Coordination - 30 day recurrence (cannabidiol (CBD)) for Seizure Disorder 05/02/2024 [place] [address] Sarah Serra, FOOD BEVERAGE ATTENDANT 05/02/2024 Specialty [place] [address] John Gil, [facility] Refill Coordination - 30 day recurrence (cannabidiol (CBD)) for Seizure Disorder 04/22/2024 [place] [address] Sarah Serra, FOOD BEVERAGE ATTENDANT 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 04/12/2024 Specialty [place] [address] Junior Daily, [facility] Refill Coordination - 30 day recurrence (cannabidiol (CBD)) for Seizure Disorder from Last 3 Months Immunizations Name Administration Dates Next Due Influenza PF, Split 06/22/2015 Influenza Quadrivalent, Preservative Free 2018 Family History Medical History Relation Comments Cancer Neg Hx Social History Tobacco Use Types Packs/Day Years Used Date Smoking Tobacco: Never Smokeless Tobacco: Never Tobacco Cessation:Counseling Given: No Alcohol Use Standard Drinks/Week Comments No 0 (1 standard drink = 0.6 oz pur e alcohol) Sex and Gender Information Value Date Recorded Sex Assigned at Not on file Gender Identity Not on file Sexual Orientation Not on file Last Filed Vital Signs Vital Sign Reading Time Taken Comments Blood Pressure 131/61 10/30/2023 12:46 PM EDT Pulse 85 10/30/2023 12:46 PM EDT Temperature 36.9 ??C (98.4 ??F) 09/27/2017 1:45 PM ES T Respiratory Rate 16 04/11/2023 10:21 AM EDT Oxygen Saturation 100% 04/11/2023 10:21 AM EDT Inhaled Oxygen Concentration - - Weight 68 kg (150 lb) 02/12/2024 1:16 PM EDT pt reported Height 149.9 cm (4' 11) 02/12/2024 1:16 PM EDT pt reported Body Mass Index 30.3 02/12/2024 1:16 PM EDT Plan of Treatment Upcoming Encounters Date Type Department Care Team (Late st Contact Info) Description 08/06/2024 11:00 AM EST [place] [address] Sarah Serra APRN [facility] [place] [address] Health Maintenance Due Date Last Done Comments CT Colonography 1960 Colonoscopy 1960 Colorectal Cancer Screening 1960 FIT DNA 1960 FIT 1960 Sigmoidoscopy (10 year) with FIT yearly 1960 Sigmoidoscopy 1960 HIV screen 1979 Hepatitis C Screening 1979 Tetanus/Diphtheria/Pertussis Vaccines (1 - Tdap) 1980 HPV test 1991 PAP Smear 1991 Breast Cancer Share Decision Needed 2001 Breast Cancer screening 2001 Zoster vaccine (1 of 2) 2011 Advance Directive 2016 Covid-19 Vaccine (1 - 2023-2 5 season) 2024 Influenza (Flu) vaccine (1 o f 1 - Influenza standard series) 04/07/2024 05/21/2019, 06/22/2015 Diabetes Screening (HgbA1C o r Glucose) 10/04/2026 10/04/2023, 09/04/2019, 12/07/2018, Additional history exists Goals Goal Patient Goal Type Associated Problems Recent Progress Patient-Stated? Author [facility] Medication Compliance and Understanding Patient Facing Action Plan On track( 024 12:05 PM EDT) Arnel Hurd, [facility] Note: Patient's specific desired goal: reduce number of seizures, with secondary goal of being able to taper some of the other AEDs being used Measured by: seizure record, side effects exhibited Time-frame to meet goal: 3-6 months Medical Devices Implanted Type Area Yarding Supervisor Device Identifier Shelf Expiration Date Model / Serial / Lot Generator,Vns ,Demipulse,Mo [id number]) - [id number] Implanted:Qty : 1 on 04/02/2012 at [facility] IMPLANTS Left: Chest [employer] - [id number] 10/04/2013 103 / / [id number] Derick Jennings r,106 ([id number]) - [id number] Implanted:Qty : 1 on 09/27/2017 by Jono Lynn MD at [facility] IMPLANTS Chest Wall [employer]onics - [id number] 02/15/2019 106 / [id number] / 0 Explanted Type Area Yarding Supervisor Device Identifier Shelf Expiration Date Model / Serial / Lot Sarai Jennings M od-[id number]) - [id number] Explanted:Qty : 1 on 09/27/2017 by Jono Lynn MD at [facility] IMPLANTS Chest Wall [employer] - [id number] / [id number] / 0 Procedures Procedure Name Priority Date/Time Associated Diagnosis Comments COMPREHENSIVE METABOLIC PANEL Routine 10/04/2023 3:55 PM EST Seizure from Last 3 Months or Most Recently Relevant to Health Maintenance Results * (ABNORMAL) Comprehensive metabolic panel (non-fasting) (10/04/2023 3:55 PM EST) Glucose 108(H) EXTERNAL FACILITY Blood Urea Nitrogen 9 EXTERNAL FACILITY Creatinine 0.7 EXTERNAL FACILITY Est Glomerular Filtration Rate 97.72 EXTERNAL FACILITY Sodium 142 EXTERNAL FACILITY Potassium 3.8 EXTERNAL FACILITY Chloride 104 EXTERNAL FACILITY Carbon Dioxide 28 EXTER NAL FACILITY Calcium 9.2 EXTERNAL FACILITY Protein, Total 7.4 EXTER NAL FACILITY Albumin 4.0 EXTERNAL FACILITY Bilirubin, Total 0.2 EXT ERNAL FACILITY Alkaline Phosphatase 133(H) EXTERNAL FACILITY Aspartate Aminotransferase 13(L) EXTERNAL FACILITY Alanine Aminotransferase 23 EXTERNAL FACILITY Blood 10/04/2023 3:55 PM EST Sarah Serra FOOD BEVERAGE ATTENDANT CHEMISTRY ORDERA BLES EXTERNAL FACILITY from Last 3 Months or Most Recently Relevant to Health Maintenance Advance Directives Documents on File Type Date Recorded Patient Senior Environmental Engineer Expl anation Personal Senior Environmental Engineer 02/10/2022 9:06 AM lulu arellano * Full Code (Latest Code Status on File) Date Activated Date Inactivated Comments 09/27/2017 12:24 PM 09/27/2017 5:28 PM Question Answer Comments Does patient have capacity to make decision: Yes * Full Code Date Activated Date Inactivated Comments 07/09/2016 2:33 PM 07/13/2016 3:16 PM Question Answer Comments Does patient have capacity t o make decision: No Code Status decision being made per: Con sent of Durable Power of Filter Operator for Healthcare Name (and relationship if needed): caregiver * Full Code Date Activated Date Inactivated Comments 11/18/2014 5:16 PM 11/24/2014 5:46 PM Question Answer Comments Order Status: Initial Order Does patient have decision m aking capacity? No, see responsible decision maker question Responsible decision maker(s ), other than patient: Consent of Legal Scoobyurdian (name) Lulu Care Teams Clinical Resource Director Relationship Specialty Start Date End Date Luis Manuel Blanca MD [address] [place] [address] PCP - General Family Medicine 06/24/16
--- OUTSIDE RECORDS SUMMARY | 2024-06-28 21:57 | XMS_ITS | Encounter Summary ---
[place] [address] Care Team Providers Care Eligibility Manager Name Role Phone Luis Manuel Blanca MD Primary Care Provider [phone] Encounter Details Date Type Department Care Team (Latest Contact Info) Description 06/24/2024 Specialty [place] [address] Junior Daily, [facility] Refill Coordination - 30 day recurrence (cannabidiol [...] as of this encounter Progress Notes * Bj Heck RPH - 06/24/2024 10:11 AM EST Images from the original note were not included. Clinical Management Plan: Refill Specialty Pharmacy Consultation; Bj Heck RPH Comprehensive Medication Management (CMM) Ms. Cinthya Brown is a 63 y.o. (1960) female who was contacted in regard to a specialty medication refill reminder. The caregiver. Caregiver name: Heidi requested a refill of Cannabidiol (Cbd). A review of the medication therapy was performed. The medication was refilled as scheduled, and all medication related questions and concerns were addressed. The specialty pharmacy staff will follow up with the patient 5-7 days prior to next refill. Was a change made to the Care Plan: no If yes, should the medication be held: No Assessment and Recommendations: Allergies and Drug intolerance: Allergies Allergen Reactions Amoxicillin-Pot Clavulanate Rash Amoxicillin Risedronate Sodium Nausea And Vomiting Medication Reconciliation Discrepancies (compared to eD med list) -Pt was on a course of azithromycin for a tooth infection. No issues with Epidiolex. Review Flowsheet 06/24/2024 10:11 AM Assessment What is the name of the specialty medication you are refilling? Epidiolex Are you taking any new medications? Yes Please explain Started azithromycin for tooth infection 06/19 Any new medical conditions? No Any new allergies? No Any new side effects that are bothersome? No Any missed doses since your last fill? 0 Would you like a pharmacist to reach out to you to answer any questions? No What date will you need this fill by? 07/05/2024 Medication Therapy Recommendations No medication therapy recommendations to display Pt understands no changes to current drug regimen were made at the appointment and that [facility] is providing recommendations (summary located at top of note) for provider review and follow up. Bj Heck RPH 06/25/24 1:41 PM documented in this encounter Plan of Treatment Upcoming Encounters Date Type Department Care Team (Late st Contact Info) Description 08/06/2024 11:00 AM EST Office [place] [address] Sarah Serra APRN [facility] [place] [address] documented as of this encounter Goals Goal Patient Goal Type Associated Problems Recent Progress Patient-Stated? Author [facility] Medication Compliance and Understanding Patient Facing Action Plan On track( 024 12:05 PM EDT) No Arnel Benitez [facility] Note: Patient's specific desired goal: reduce number of seizures, with secondary goal of being able to taper some of the other AEDs being used Measured by: seizure record, side effects exhibited Time-frame to meet goal: 3-6 months documented as of this encounter Visit Diagnoses Not on filedocumented in this encounter Care Teams Eligibility Manager Relationship Specialty Start Date End Date Luis Manuel Blanca MD [address] [place] [address] PCP - General Family Medicine 06/24/16 documented as of this encounter
--- OUTSIDE RECORDS SUMMARY | 2024-06-28 21:57 | XMS_ITS | Encounter Summary ---
Author Organization [facility] Address [address] [place] [address] Care Team Providers Care Shellfish Processing Machine Tender Name Role Phone Unavailable Primary Care Provider Unavailabl e Encounter Details Date Type Department Care Team (Late st Contact Info) Description 05/20/2008 Before PRISM Converted Visit (Maple) [facility] - Maple conversion [address] [place] [address] Chris Lovett, DO [address] [facility] [address] [place], [place] [id number] Social History Tobacco Use Types Packs/Day Years Used Date Smoking Tobacco: Never Assessed Comments Unknown Sex and Gender Information Value Date Recorded Sex Assigned at Not on file Legal Sex Female 17:36 EST Gender Identity Not on file Sexual Orientation Not on file documented as of this encounter Plan of Treatment Not on file documented as of this encounter Procedures Procedure Name Priority Date/Time Associated Diagnosis Comments SURGICAL PATHOLOGY Routine 05/20/2008 0:00 EDT documented in this encounter Results * SURGICAL PATHOLOGY (05/20/2008 0:00 EDT) Pathology Report: SURGICAL PATHOLOGY REPORT ? Reports generated via electronic interface contain original data; ? however they are lacking the format of the original report. ? Caution should be taken when reading/interpreti ng unformatted reports. ? Name: ? BAGDAN, CINTHYA G ? Accession #: ? [id number] ? : ? 1960 (Age: 47) ??F ? Collect Date: ? 05/20/2008 ? Location: ? [facility] ? Receive Date: ? 05/20/2008 ? Provider: CHRIS LOVETT DO ? Copy to: ALFONSO JOHNSON MD ? Final Pathologic Diagnosis: ? A. ?Colon, at 70.0 cm biopsy: ? 1. ?Tubular adenoma. ? B. ?Stomach, polyp, biopsy: ? 1. ?Hyperplastic polyp. ? C. ?Stomach, antrum, biopsy: ? 1. ?Antral mucosa with no specific pathologic findings. ? D. ?Gastroesophageal junction, biopsy: ? 1. ?? Gastric mucosa with no specific pathologic findings. ? Document reviewed and electronically signed by: ? Alejandro Robertson MD ? Report ??Date: 05/23/2008 12:33 ? By the signature above, the attending physician certifies that he/she has ? personally conducted a gross and/or microscopic examination of the described ? specimens and rendered or confirmed the above diagnosis. ? Specimen(s) Received: ? Colonoscopy ? A. ?Polyp at 70 cm colon ? EGD ? B. ?Stomach polyp ? C. ? Bx antrum ? D. ? Bx GE junction ? Clinical History: ? Microcytic anemia ? Gross Description: ? Received in Jany's fixative labelled Bagdan and polyp at 70 cm is a single piece of tissue that measures 0.5 x 0.3 x 0.3 cm and is entirely ? submitted as (A). ? Received in Jany's fixative labelled Bagdan and stomach polyp is a ? single piece of tissue that measures 0.5 x 0.4 x 0.3 cm and is entirely ? submitted as (B). ? Received in Jany's fixative labelled Bagdan and biopsy antrum are three pieces of tissue that each measure 0.3 x 0.3 x 0.3 cm and are all submitted as ?? (C). ? Received in Jany's fixative labelled Bagdan and biopsy GE junction is a single piece of tissue that measures 0.3 x 0.2 x 0.2 cm and is entirely ? submitted as (D). ??(Dr. Meyer)/[facility] ? End of Report ? [facility] 05/20/2008 05/20/2008 15: 42 EDT us Chris Lovett DO PATHOLOGY ORDERABLES Fi nal Result Performing Organization Address City/State/[facility] Co de Phone Number [facility] [address] [place] [address] documented in this encounter Visit Diagnoses Not on filedocumented in this encounter
--- OUTSIDE RECORDS SUMMARY | 2024-06-28 21:57 | XMS_ITS | Encounter Summary ---
Author Organization [facility] Address [address] [place] [address] Care Team Providers Care Assistant Public Defender Name Role Phone Cee Johnson MD Primary Care Provider [phone] Encounter Details Date Type Department Care Team (Late st Contact Info) Description 01/30/2015 Results Only [facility] [phone] Chris Lovett, DO [address] [facility] [address] [place] [address] Social History Tobacco Use Types Packs/Day Years [...] Date/Time Associated Diagnosis Comments SURGICAL PATHOLOGY Routine 01/30/2015 9:18 EDT documented in this encounter Results * SURGICAL PATHOLOGY (01/30/2015 9:18 EDT) Pathology Report: SURGICAL PATHOLOGY REPORT Reports generated via electronic interface contain original data; however they are lacking the format of the original report. Caution should be taken when reading/interpreting unformatted reports. Name: ? CINTHYA BROWN ? Accession #: ? [id number] ? : ? 1960 (Age: 54) ??F ? Collect Date: ? 01/30/2015 ? Location: ? [facility] ? Receive Date: ? 01/30/2015 ? Provider: CHRIS LOVETT DO Copy to: CEE JOHNSON MD ? Final Pathologic Diagnosis: A. STOMACH, SITE NOT SPECIFIED, BIOPSY: - ??Active polypoid lymphoplasmacytic gastropathy. See comment. - ??Immunohistochemical staining for Helicobacter pylori is negative. B. STOMACH, POLYP, BIOPSY: - ??Polypoid erosive reactive/ chemical gastropathy with ectatic vasculature. - ??No evidence of Helicobacter pylori on H&E. Comment: Previous biopsies ([id number]) were reviewed in conjunction (duodenum and stomach). Although a slight decreased in extent of inflammation, both biopsies contain exuberant lymphoplasmacytic proliferation; of a lesser degree in stomach than duodenum. ??Similar findings can be in context of autoimmune gastritis, medication- induced or primary. There is no evidence of Helicobacter pylori; Other less common associations include Treponema Pallidum infection. There is vascular congestion in context of erosive reactive gastropathy, a possibility of concurrent portal hypertension is not excluded. Clinical correlation is recommended. ANTIBODY(CLONE)(BLOCK) :RESULT H. pylori (Rabbit Monoclonal (SP48), [place]) (A1): negative. ? NOTE: ??One or more of the reagents used in immunohistochemical testing in this case may not have been cleared or approved by the U.S. Food and Drug Administration (FDA). ??The FDA has determined that such clearance or approval is not necessary. ??These tests are used for clinical purposes. ??They should not be regarded as investigational or for research. ??These reagents' performance characteristics have been determined by the [facility]. ??This laboratory is certified under the Clinical Laboratory Improvement Amendments of 1988 (CLIA-88) as qualified to perform high complexity clinical laboratory testing. Document reviewed and electronically signed by: HAL ROSADO MD Report ??Date: 02/07/2015 11:23 By the signature above, the attending physician certifies that he/she has personally conducted a gross and/or microscopic examination of the described specimens and rendered or confirmed the above diagnosis. Specimen(s) Received: A. ??Stomach bx B. ??Stomach polyp Clinical History: Hx of anemia; previous gastritis on Depakote; off Depakote for 3 months; less inflammation; stomach polyp previously biopsied Gross Description: A. ?Received in formalin labelled with proper patient identification (initials B, M) and stomach bx are three pink-servin tissues (0.3 x 0.2 x 0.2 cm to 0.4 x 0.2 x 0.2 cm). Entirely submitted in A1. B. ?Received in formalin labelled with proper patient identification (initials B, M) and stomach polyp is a single pink-servin polypoid tissue (0.7 x 0.6 x 0.3 cm). The margin is inked blue. ??The specimen is trisected and entirely submitted in B1. Leonie Edyta 01/31/2015 10:04 AM End of Report [facility] 01/30/2015 9:18 EDT 01/30/2015 9:18 EDT us Chris Lovett DO PATHOLOGY ORDERABLES Fi nal Result Performing Organization Address City/State/[facility] Co de Phone Number [facility] [address] [place] [address] documented in this encounter Visit Diagnoses Not on filedocumented in this encounter Care Teams Assistant Public Defender Relationship Specialty Start Date End Date Cee Johnson MD [address] [place] [address] [address] [place], [place] [phone] PCP - General 09/07/12 documented as of this encounter
--- OUTSIDE RECORDS SUMMARY | 2024-06-28 21:57 | XMS_ITS | Encounter Summary ---
Author Organization [facility] Address [address] [place] [address] Care Team Providers Care Annealing Furnace Tender Name Role Phone Cee Johnson MD Primary Care Provider [phone] Encounter Details Date Type Department Care Team (Late st Contact Info) Description 07/22/2014 Results Only [facility] Laboratory Services - [facility] ([facility]) [address] [place], [place] [phone] Cee Johnson MD [address] [place] [phone] Social History Tobacco Use Types Packs/Day Years [...] Procedure Name Priority Date/Time Associated Diagnosis Comments PAP TEST- RESULT ONLY Routine 07/22/2014 0:00 EST documented in this encounter Results * PAP TEST- RESULT ONLY (07/22/2014 0:00 EST) Pathology Report: CYTOPATHOLOGY REPORT Reports generated via electronic interface contain original data; however they are lacking the format of the original report. Caution should be taken when reading/interpreti ng unformatted reports. Name: ? CINTHYA BROWN ? Accession #: ? [id number] ? : ? 1960 (Age: 53) ??F ?Collect Date: ? 07/22/2014 ? Location: ? [facility] ? Receive Date: ? 07/23/2014 ? Provider: CEE JOHNSON MD Copy to: ? Final Report SPECIMEN ADEQUACY ? Satisfactory for Evaluation - transformation zone component present GENERAL CATEGORIZATION ? Negative for Intraepithelial Lesion or Malignancy ?? Hormonal/Contracep tive status: Intrauterine device: Mirena Specimen/Source: ??Pap Test, Cervix/Endocervix, ThinPrep Imaging System with manual evaluation Document reviewed and electronically signed by: ? ANDREA Hayes(ASCP) ? Report ??Date: 07/29/2014 13:54 HPV with Pap Test ? Date Ordered: ? 07/29/2014 ? Status: ?? Signed Out ?Date Complete: ? 08/01/2014 ? By: ??System Interface ? Date Reported: ? 08/01/2014 ? Interpretation RESULT: Negative for HPV. No E6 or E7 mRNA is detected from HPV types 16,18,31,33,35, 39,45,51,52,56,58, 59,66, and 68 by conflicts analyst mediated amplification. Comments Document reviewed and electronically signed by: ? System Interface ? Report date: 08/01/2014 By the signature above, the attending physician certifies that he/she has personally conducted a gross and/or microscopic examination of the described specimens and rendered or confirmed the above diagnosis. End of Report [facility] 07/22/2014 07/23/2014 us Cee Johnson MD PATHOLOGY ORDERABLES Final Re sult [facility] [address] [place] [address] documented in this encounter Visit Diagnoses Not on filedocumented in this encounter Care Teams Annealing Furnace Tender Relationship Specialty Start Date End Date Cee Johnson MD [address] [place] [address] [place] [address] PCP - General 09/07/12 documented as of this encounter
--- OUTSIDE RECORDS SUMMARY | 2024-06-28 21:57 | XMS_ITS | Clinical Summary ---
Author Organization [facility] Address [address] [place] [address] Care Team Providers Care Shoe Salesman Name Role Phone Cee Escobar MD Primary Care Provider [phone] Social History Tobacco Use Types Packs/Day Years Used Date Smoking Tobacco: Never Assessed Comments Unknown Sex and Gender Information Value Date Recorded Sex Assigned at Not on file Legal Sex Female 17:36 EST Gender Identity Not on file Sexual Orientation Not on file Plan of Treatment Health Maintenance Due Date Last Done Comments Hepatitis C Screen 1960 COVID-19 Vaccine (2023- season) 2024 RSV Immunization ( o r 60+ Years) (1 - 1-dose 75+ series) 2036 Care Teams Shoe Salesman Relationship Specialty Start Date End Date Cee Escobar MD [facility] [facility] [address] [place] [address] PCP - General 09/07/12
--- OUTSIDE RECORDS SUMMARY | 2024-06-28 21:57 | XMS_ITS | Encounter Summary ---
Author Organization [facility] Address [address] [place] [address] Care Team Providers Care Physical Security Manager Name Role Phone Cee Johnson MD Primary Care Provider [phone] Encounter Details Date Type Department Care Team (Late st Contact Info) Description 03/18/2014 Results Only [facility] Laboratory Services - [facility] ([facility] [address] [place], [place] [phone] Chris Lovett, DO [address] [facility] [address] [place], [place] [phone] Social History Tobacco Use Types Packs/Day Years [...] Date/Time Associated Diagnosis Comments SURGICAL PATHOLOGY Routine 03/18/2014 9:32 EDT documented in this encounter Results * SURGICAL PATHOLOGY (03/18/2014 9:32 EDT) Pathology Report: SURGICAL PATHOLOGY REPORT Reports generated via electronic interface contain original data; however they are lacking the format of the original report. Caution should be taken when reading/interpreting unformatted reports. Name: ? CINTHYA BROWN ? Accession #: ? [id number] ? : ? 1960 (Age: 53) ??F ? Collect Date: ? 03/18/2014 ? Location: ? [facility] ? Receive Date: ? 03/19/2014 ? Provider: CHRIS LOVETT DO Copy to: CEE JOHNSON MD ? Final Pathologic Diagnosis: A. ??DUODENUM, POLYP, BIOPSY: - Ulcer bed with polypoid lymphoplasmacytic infiltrate. ??See comment. - Background foveolar lined mucosa with histologic features of regeneration/repair. ?? - Negative for dysplasia. ? B. ??STOMACH, ANTRUM, POLYP, BIOPSY: - Hyperplastic polyp with associated erosive gastritis. - Negative for dysplasia. - Immunohistochemical stain for Helicobacter pylori is negative. ?? C. ??STOMACH, ANTRUM, BIOPSY: - Gastric antral mucosa with reactive (chemical) gastropathy and superimposed chronic gastritis. ?? D. ??ESOPHAGUS, DISTAL, BIOPSY: - Squamous mucosa with reactive changes. Comment: The duodenal polyp is significant for ulceration with a marked associated lymphoplasmacytic infiltrate. ??Immunohistochemical staining was performed to further delineate this lymphoid lesion and was shown to be reactive in nature. Hematopathologist, Dr. Sung Castillo, has reviewed this case as an internal consultation and agrees with this assessment. ??(Dr. Sequeira)/roberto ANTIBODY(CLONE)(BLOCK) :RESULT H. pylori(Rabbit Monoclonal (SP48), Golovin) (A1, B2):Negative CD3 (T-cell) (Rabbit Monoclonal (SP7), Thermo Scientific)(A1):Highli ghts T-cells in reactive pattern (non-clonal) ? CD20 (B-cell) (L26, Golovin)(A1):Highlight s B-cells in reactive pattern (non-clonal) ? CD43 (DF-T1, Dako)(A1):Expressed only in T-cells (non-aberrant) [place] (polyclonal, Dako)(A1):Reactive pattern (non-clonal) Lambda (polyclonal, Dako)(A1):Reactive pattern (non-clonal) IgG4 (MRQ-44, [employer])(A1):Negative for significant number of IgG4 positive plasma cells NOTE: ??One or more of the reagents [...] reagents' performance characteristics have been determined by [facility]. ??This laboratory is certified under the Clinical Laboratory Improvement Amendments of 1988 (CLIA-88) as qualified to perform high complexity clinical laboratory testing. Document reviewed and electronically signed by: SONYA SEQUEIRA MD Report ??Date: 03/27/2014 14:58 By the signature above, the attending physician certifies that he/she has personally conducted a gross and/or microscopic examination of the described specimens and rendered or confirmed the above diagnosis. Specimen(s) Received: A. ?Duodenal polyp B. ? Antral polyp C. ? Bx antrum D. ? Bx distal esophagus Clinical History: Iron deficiency anemia, vomiting, and discomfort, gastritis Gross Description: A. ?Received in formalin labelled with proper patient identification (initials B, M) and duodenal polyp are two pink-servin tissues (0.3 x 0.3 x 0.2 cm and 0.6 x 0.3 x 0.2 cm). Entirely submitted in A1. B. ?Received in formalin labelled with proper patient identification (initials B, M) and antral polyp is a single pink-servin focally red-brown polypoid tissue (1.5 x 1.0 x 0.8 cm). The margin is inked blue. ??The specimen is serially sectioned and entirely submitted in B1 and B2. C. ?Received in formalin labelled with proper patient identification (initials B, M) and bx antrum are two pink-servin tissues (0.1 x 0.1 x 0.1 cm and 0.4 x 0.3 x 0.2 cm). Entirely submitted in C1. D. ?Received in formalin labelled with proper patient identification (initials B, M) and bx distal esophagus are three servin white tissues (0.1 x 0.1 x 0.1 cm to 0.3 x 0.3 x 0.1 cm). Entirely submitted in D1. Leonie Lawrence 03/19/2014 11:01 AM End of Report [facility] 03/18/2014 9:32 EDT 03/19/2014 9:32 EDT Chris Lovett DO PATHOLOGY ORDERABLES Fi nal Result Performing Organization Address City/State/[facility] Co de Phone Number [facility] [address] [place] [address] documented in this encounter Visit Diagnoses Not on filedocumented in this encounter Care Teams Physical Security Manager Relationship Specialty Start Date End Date Cee Johnson MD [address] [place] [address] [place] [address] PCP - General 09/07/12 documented as of this encounter
--- OUTSIDE RECORDS SUMMARY | 2024-06-28 21:57 | XMS_ITS | Encounter Summary ---
Author Organization [facility] Address [address] [place] [address] Care Team Providers Care Mobility Specialist Name Role Phone Cee Johnson MD Primary Care Provider [phone] Encounter Details Date Type Department Care Team (Late st Contact Info) Description 08/12/2014 Results Only [facility] Laboratory Services - [facility] ([facility]) [address] [place], [place] [phone] Chris Lovett, DO [address] [facility] [address] [place], [place] [phone] Social History Tobacco Use Types Packs/Day Years [...] Date/Time Associated Diagnosis Comments SURGICAL PATHOLOGY Routine 08/12/2014 15 :39 EST documented in this encounter Results * SURGICAL PATHOLOGY (08/12/2014 15:39 EST) Pathology Report: SURGICAL PATHOLOGY REPORT Reports generated via electronic interface contain original data; however they are lacking the format of the original report. Caution should be taken when reading/interpreting unformatted reports. Name: ? CINTHYA BROWN ? Accession #: ? [id number] ? : ? 1960 (Age: 53) ??F ? Collect Date: ? 08/12/2014 ? Location: ? [facility] ? Receive Date: ? 08/12/2014 ? Provider: CHRIS LOVETT DO Copy to: CEE JOHNSON MD ? Final Pathologic Diagnosis: A. SMALL BOWEL, DUODENAL POLYP, BIOPSY: - ??Lymphoplasmacytic proliferation and scant cauterized gastric-type epithelium. See comment B. STOMACH, ANTRUM, BIOPSY: - ??Transitional mucosa with erosive reactive gastropathy and active chronic inflammation. - ??Immunostaining for Helicobacter pylori is negative. Comment: Part A: Nature of the exuberant lymphoplasmacytic proliferation with granulation was further studied by immunostaining and in consultation with Dr. Vee Castillo from section of hematopathology. Stains for CD20 (B-cell) (L26, Grano), CD3 (T-cell) (Rabbit Monoclonal (SP7), Thermo Scientific), CD43 (DF-T1, Dako) and BCL-2 Oncoprotein (124, Grano) are negative for aberrant co-expression. Lymphoid proliferation is reactive in nature. Of note, intact duodenal epithelium is not represented for further evaluation. Part A-B: Overall, features noted can be secondary to severe drug/ medication effect (i.e. ulceration secondary to NSAID); however, a possibility of autoimmune process such as changes secondary to pernicious anemia is not excluded and clinical correlation is highly recommended. ?? ANTIBODY(CLONE)(BLOCK) :RESULT H. pylori (Rabbit Monoclonal (SP48), Grano)(B1): negative. ?? NOTE: ??One or more of the reagents [...] performance characteristics have been determined by the [facility]. ??This laboratory is certified under the Clinical Laboratory Improvement Amendments of 1988 (CLIA-88) as qualified to perform high complexity clinical laboratory testing. ?? Document reviewed and electronically signed by: HAL ROSADO MD Report ??Date: 08/15/2014 17:22 By the signature above, the attending physician certifies that he/she has personally conducted a gross and/or microscopic examination of the described specimens and rendered or confirmed the above diagnosis. Specimen(s) Received: A. ??Duodenal polyp B. ??Gastric antrum Clinical History: Anemia Gross Description: A. ?Received in formalin labelled with proper patient identification (initials B, M) and duodenal polyp is a single pink-servin polypoid tissue (0.3 x 0.3 x 0.1 cm). The margin is inked blue. ??The specimen is submitted intact in A1. B. ?Received in formalin labelled with proper patient identification (initials B, M) and gastric antrum are five pink-servin tissues (0.2 x 0.2 x 0.2 cm to 0.6 x 0.2 x 0.1 cm). Entirely submitted in B1 and B2. Breanna Taylor 08/12/2014 07:29 PM End of Report [facility] 08/12/2014 15:3 9 EST 08/12/2014 15:39 EST us Chris Lovett DO PATHOLOGY ORDERABLES Fi nal Result [facility] [address] [place] [address] documented in this encounter Visit Diagnoses Not on filedocumented in this encounter Care Teams Mobility Specialist Relationship Specialty Start Date End Date Cee Johnson MD [address] [place] [address] [place] [address] PCP - General 09/07/12 documented as of this encounter
--- OUTSIDE RECORDS SUMMARY | 2024-06-28 21:57 | XMS_ITS | Encounter Summary ---
[place] [address] Care Team Providers Care Historic Sites Supervisor Name Role Phone Luis Manuel Blanca MD Primary Care Provider [phone] Encounter Details Date Type Department Care Team (Latest Contact Info) Description 03/05/2024 Specialty [place] [address] John Gil CPHT Refill Coordination - 30 [...] Progress Notes * John Gil CPHT - 03/05/2024 12:27 PM EDT Clinical Management Plan: Refill Specialty Pharmacy Consultation; John Gil CPHT Comprehensive Medication Management (CMM) Ms. Cinthya Brown is a 63 y.o. (1960) female who was contacted in regard to a specialty medication refill reminder. The caregiver. Caregiver name: Mother requested a refill of Cannabidiol (Cbd). A review of the medication therapy was performed. The medication was refilled as scheduled, and all medication related questions and concerns were addressed. The specialty pharmacy staff will follow up with the patient 5-7 days prior to next refill. Was a change made to the Care Plan: No Medication Therapy Recommendations No medication therapy recommendations to display Allergies and Drug intolerance: Allergies Allergen Reactions Amoxicillin-Pot Clavulanate Rash Risedronate Sodium Nausea And Vomiting Medication Reconciliation Discrepancies (compared to [facility] med list) No Review Flowsheet 03/05/2024 12:27 PM Assessment What is the name of the [...] date will you need this fill by? 03/15/2024 Adherence: Any missed doses? No Patient understands no changes to current drug regimen were made. John Gil CPHT 03/05/24 12:29 PM documented in this encounter Plan of Treatment Upcoming Encounters Date Type Department Care Team (Late st Contact Info) Description 08/06/2024 11:00 AM EST [place] [address] Sarah Serra APRN [facility] [place] [address] documented as of this encounter Goals Goal Patient Goal Type Associated Problems Recent Progress Patient-Stated? Author [facility] Medication Compliance and Understanding Patient Facing Action Plan On track( 024 12:05 PM EDT) No Arnel Benitez, [facility] Note: Patient's specific desired goal: reduce number of seizures, with secondary goal of being able to taper some of the other AEDs being used Measured by: seizure record, side effects exhibited Time-frame to meet goal: 3-6 months documented as of this encounter Visit Diagnoses Not on filedocumented in this encounter Care Teams Historic Sites Supervisor Relationship Specialty Start Date End Date Luis Manuel Blanca MD [address] [place] [address] PCP - General Family Medicine 06/24/16 documented as of this encounter
--- OUTSIDE RECORDS SUMMARY | 2024-06-28 21:57 | XMS_ITS | Encounter Summary ---
[place] [address] Care Team Providers Care Sweeper Cleaner Industrial Name Role Phone Luis Manuel Blanca MD Primary Care Provider [phone] Reason for Referral * Consultation (Urgent) - Authorized Specialty Diagnoses / Procedures Referred By Koby soto Referred To Contact Dentistry Diagnoses Epilepsy seizure, generalized, convulsive Dental infection Sarah Serra APRN [facility] [place] [address] Referral ID Status Reason Start Date Expiration Date Visits Requested Visits Authorized [id number] Authorized Consult, Test & Treat 06/19/2024 12/16/2024 1 1 Reason for Visit * Reason Onset Date Comments Seizures 06/18/2024 Encounter Details Date Type Department Care Team (Late st Contact Info) Description 06/18/2024 [place] [address] Sarah Serra APRN [facility] [place] [address] Seizures Social History Tobacco Use Types Packs/Day Years [...] encounter Miscellaneous Notes * Telephone Encounter - Sarah Serra APRN - 06/19/2024 5:52 PM EST Images from the original note were not included. Spoke with lulu, infected tooth, increased seizures. They are getting worse, worried she may gointo status if has to wait much longer to see dentist and get resolved. Discussed ED for imaging, unable to get imaging without general anesthesia. Discussed risk of not knowing whether or not infection isolated to gums or has spread (and thus may necessitate different tx) vs risks associated with gen anesthesia. They would prefer trialing oral agent now- if sx persistor worsen they will present to ED. Pt allergic to amoxicillin, reviewed algorithym below. Z pack prescribed. Lulu verbalizes understanding, teaches back in own words, and agrees with plan. Discussed whether referral to dentist was marked urgent, not sure- there have been additional barriers per lulu. Alex has been managing. Called Alex, issue is that unable to get guardianship paperwork from referring dentist, have been requesting. Advised I have it hear, copy sent via [employer] as well as faxed origional to dentist along with urgent referral. Reviwed plan with alex, discussed monitoring for any worsening or lack of improvement. Go to ED ifthis occurs. Alex verbalizes understanding, teaches back in own words, and agrees with plan. * Telephone Encounter - Kourtney Banuelos RN - 06/18/2024 12:52 PM EST Copied from [facility] #[id number]. Topic: Specialty Dept CRMs - Triage >> Jun 18, 2024 11:02 AM Ekta May wrote: Triage Message Specialist: Sarah Serra Relationship (if other than patient-full name): Lulu-Home Provider Symptom: Seizures Has patient experienced symptom before If patient has experienced symptom before, when was the last time this occurred Is patient currently having symptom no When did symptom begin yesterday Additional Comments: Lulu called stating patient is having more seizures and would like patientto be seen sooner. Please call to advise. documented in this encounter Plan of Treatment Upcoming Encounters Date Type Department Care Team (Late st Contact Info) Description 08/06/2024 11:00 AM EST [place] [address] Sarah Serra APRN [facility] [place] [address] Scheduled Referrals Name Type Priority Associated Diagnoses Orde r Schedule Referral to Dentistry Outpatient Referral Urgent Epilepsy seizure, generalized, convulsive Dental infection Ordered: 06/19/2024 documented as of this encounter Goals Goal Patient Goal Type Associated Problems Recent Progress Patient-Stated? 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
--- OUTSIDE RECORDS SUMMARY | 2024-06-28 21:57 | XMS_ITS | Encounter Summary ---
Author Organization [facility] Address [address] [place] [address] Care Team Providers Care Sandblaster Supervisor Name Role Phone Unavailable Primary Care Provider Unavailabl e Encounter Details Date Type Department Care Team (Late st Contact Info) Description 04/04/2007 Results Only [facility] [address] [place] [address] [place] [address] [place] [address] [place] [address] Social History Tobacco Use Types [...] Procedure Name Priority Date/Time Associated Diagnosis Comments CYTOPATHOLOGY Routine 04/04/2007 0:00 EDT documented in this encounter Results * CYTOPATHOLOGY (04/04/2007 0:00 EDT) Pathology Report: CYTOPATHOLOGY REPORT Reports generated via electronic interface contain original data; however they are lacking the format of the original report. Caution should be taken when reading/interpreti ng unformatted reports. Name: ? CINTHYA BROWN ? Accession #: ? [id number] : ? 1960 (Age: 46) ??F ?Collect Date: ? 04/04/2007 Location: ? [facility] ? Receive Date: ? 04/05/2007 Provider: ?CEE JOHNSON MD Copy to: ? Specimen/Source: ?ThinPrep Pap Test, Cervix/Endocervix, processed on [employer] ThinPrep Imaging System, with manual evaluation Last Menstrual Period: ? 02/23/07 Other: ? HPVA - HPV testing requested if ASC-US on the current ThinPrep Pap test. ? SPECIMEN ADEQUACY ? Satisfactory for Evaluation - transformation zone component present GENERAL CATEGORIZATION ? Negative for Intraepithelial Lesion or Malignancy INTERPRETATION ? Reactive cellular changes associated with inflammation present (includes repair). ? Document reviewed and electronically signed by: ? KERVIN BARRON MD ? Report Date: ??04/11/2007 16:00 End of Report [facility] 04/04/2007 04/05/2007 Cee Johnson MD PATHOLOGY ORDERABLES Final Re sult [facility] [address] [place] [address] documented in this encounter Visit Diagnoses Not on filedocumented in this encounter
--- OUTSIDE RECORDS SUMMARY | 2024-06-28 21:57 | XMS_ITS | Encounter Summary ---
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 Social History Tobacco Use Types Packs/Day Years [...] encounter Miscellaneous Notes * Telephone Encounter - Diane Mathew CMA - 04/23/2024 8:53 AM EDT Prescription Renewal Request Name: Cinthya Brown : 1960 Prescription(s) Requested: Requested Prescriptions Pending Prescriptions Disp Refills BanzeL 400 mg tablet [Pharmacy Med Name: Banzel 400MG TABS] 224 tablet 11 Sig: TAKE 3 TABLETS BY MOUTH EVERY MONTH TAKE 2 TABLETS AT NOON AND TAKE 3 TABLETS AT BEDTIME Date of Encounter last in This Dept (If need an appointment send to secretaries to schedule): 02/12/2024 with Sarah Serra APRN Next Encounter in This Dept: 05/14/2024 with Sarah Serra APRN Date of Last Refill (for each medication): BanzeL 400 mg tablet TAKE 3 TABLETS BY MOUTH EVERY MORNING TAKE 2 TABLETS AT NOON AND TAKE 3 TABLETS AT BEDTIME Dispense: 224 tablet, Refills: 11 ordered 04/11/2023 Status of request: Pended Allergies Allergen Reactions Amoxicillin-Pot Clavulanate Rash Risedronate Sodium Nausea And Vomiting Diane Mathew CMA 04/23/24 8:53 AM documented in this encounter Plan of Treatment Upcoming Encounters Date Type Department Care Team (Late st Contact Info) Description 08/06/2024 11:00 AM EST Office [place] [address] Sarah Serra APRN [facility] [place] [address] documented as of this encounter Goals Goal Patient Goal Type Associated Problems Recent Progress Patient-Stated? 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
--- OUTSIDE RECORDS SUMMARY | 2024-06-28 21:57 | XMS_ITS | Encounter Summary ---
Author Organization [facility] Address [address] [place] [address] Care Team Providers Care Brick And Block Mason Name Role Phone Unavailable Primary Care Provider Unavailabl e Encounter Details Date Type Department Care Team (Late st Contact Info) Description 09/06/2012 Results Only [facility] - [facility] ([facility]) [address] [place], [place] [id number] Rachael Freeman MD [address] [place] [address] [place] [address] Social History Tobacco Use Types Packs/Day Years [...] Date/Time Associated Diagnosis Comments SURGICAL PATHOLOGY Routine 09/06/2012 16 :05 EST documented in this encounter Results * SURGICAL PATHOLOGY (09/06/2012 16:05 EST) Pathology Report: SURGICAL PATHOLOGY REPORT Reports generated via electronic interface contain original data; however they are lacking the format of the original report. Caution should be taken when reading/interpreti ng unformatted reports. Name: ? CINTHYA BROWN ? Accession #: ? [id number] ? : ? 1960 (Age: 51) ??F ? N #: ? [id number] ? Collect Date: ? 09/06/2012 ? Location: ? [facility] ? Receive Date: ? 09/06/2012 ? Provider: RACHAEL FREEMAN MD Copy to: ALFONSO JOHNSON MD ? Final Pathologic Diagnosis: ? Endometrium, curettage: 1. ?Features suggestive for hyperplastic endometrial polyp. ?? See comment. 2. ? Background proliferative endometrium. 3. ? Fragments of benign ectocervical and endocervical mucosa. Comment: ? Specimen contains several fragments with crowded endometrial glands in a background of proliferative endometrium. Although definitive features of endometrial polyp are not seen, ??the stroma of these fragments are suggestive of hyperplastic polyp. No cytological atypia noted. Dr. Félix Rios has reviewed this case in consultation and concurs. Endometrial fragments also have highly reactive stroma and scattered inflammatory cells including rare plasma cell. Clinical correlation is recommended to exclude endometritis. ??(Dr. Rosado)/[facility] Document reviewed and electronically signed by: HAL ROSADO MD Report ??Date: 09/11/2012 21:38 By the signature above, the attending physician certifies that he/she has personally conducted a gross and/or microscopic examination of the described specimens and rendered or confirmed the above diagnosis. Specimen(s) Received: ? Endometrial curettings Clinical History: ? Menorrhagia Gross Description: ? Received in formalin labelled Cinthya Brown and endometrial curettings is a 3.5 x 3.0 x 0.5 cm aggregate of red-brown, hemorrhagic tissue fragments admixed with servin mucus. ??The specimen is entirely submitted as (1) and (2). ??(Annemarie Lawrence)/[facility] End of Report [facility] 09/06/2012 16:0 5 EST 09/06/2012 16:05 EST us Rachael Freeman MD PATHOLOGY ORDERABLES Final Resu lt Performing Organization Address City/State/[facility] Co de Phone Number [facility] [address] [place] [address] documented in this encounter Visit Diagnoses Not on filedocumented in this encounter
--- OUTSIDE RECORDS SUMMARY | 2024-06-28 21:57 | XMS_ITS | Encounter Summary ---
Author Organization [facility] Address [address] [place] [address] Care Team Providers Care Provider Scribe Name Role Phone Cee Escobar MD Primary Care Provider [phone] Encounter Details Date Type Department Care Team (Late st Contact Info) Description 07/02/2021 Lab Requisition [facility] Pathology & Laboratory Medicine - [address] [address] Outr Resulting Lab, Provider Social History Tobacco Use Types Packs/Day Years [...] Procedure Name Priority Date/Time Associated Diagnosis Comments ZZCOVID-19 TEST [facility] PCR Today 07/02/2021 11:00 EST COVID-19 TESTING Routine 07/02/2021 11:0 0 EST documented in this encounter Results * COVID-19 TEST [facility] PCR (07/02/2021 11:00 EST) Swab 07/02/2021 11:0 0 EST 07/02/2021 22:02 EST us Provider Outr Resulting Lab MICROBIOLOGY - GENER AL ORDERABLES Final Result [facility] [address] [place] [address] * COVID-19 TESTING (07/02/2021 11:00 EST) COVID-19 rt-PCR Result Negative Negative 07/03/2021 1:[address] [facility] Comment: This test has not been FDA cleared or approved. This test has been authorized by FDA under an EUA for use by authorized laboratories. This test has been authorized only for detection of nucleic acid from 2019-nCoV, not for any other viruses or pathogens. This test is only authorized for the duration of the declaration that circumstances exist justifying the authorization of emergency use of in vitro diagnostic tests for detection and/or diagnosis of 2019-nCoV under section 564(b)(1) of Act, 21 U.S.C ?? 360bbb-3(b) (1), unless the authorization is terminated or revoked sooner. Negative results do not preclude 2019-nCoV infection and should not be used as the sole basis for treatment or other patient management decisions. Negative results must be combined with clinical observations, patient history, and epidemiological information. Performed on the Soundsupplyher Fusion instrument Performing Lab [place] [facility] 07/03/2021 1:[address] [facility] Swab 07/02/2021 11:0 0 EST 07/02/2021 22:02 EST us Provider Outr Resulting Lab MICROBIOLOGY - GENER AL ORDERABLES Final Result [facility] [address] [place] [address] documented in this encounter Visit Diagnoses Not on filedocumented in this encounter Care Teams Provider Scribe Relationship Specialty Start Date End Date Cee Escobar MD [address] [place] [address] [place] [address] PCP - General 09/07/12 documented as of this encounter
--- OUTSIDE RECORDS SUMMARY | 2024-06-28 21:57 | XMS_ITS | Encounter Summary ---
Author Organization [facility] [address] Care Team Providers Care Furnace Installer Helper Name Role Phone Luis Manuel Blanca MD Primary Care Provider [phone] Encounter Details Date Type Department Care Team (Late st Contact Info) Description 05/02/2024 [place] [address] Sarah Serra APRN [facility] [place] [address] Social History Tobacco Use Types Packs/Day Years [...] Progress Notes * John Gil CPHT - 05/02/2024 3:38 PM EDT The last refill of Epidiolex was used on refill date 05/02/2024. Please pend a new rx for future fills to be placed on file to provider Sarah Serra. Thank you, John Gil CPHT 05/02/24 3:38 PM documented in this encounter Plan of Treatment Upcoming Encounters Date Type Department Care Team (Late st Contact Info) Description 08/06/2024 11:00 AM EST [place] [address] Saarh Serra APRN [facility] [place] [address] documented as of this encounter Goals Goal Patient Goal Type Associated Problems Recent Progress Patient-Stated? Author [facility] Medication Compliance and Understanding Patient Facing Action Plan On track( 024 12:05 PM EDT) No Arnel Benitez, [facility] Note: Patient's specific desired goal: reduce number of seizures, with secondary goal of being able to taper some of the other AEDs being used Measured by: seizure record, side effects exhibited Time-frame to meet goal: 3-6 months documented as of this encounter Visit Diagnoses Not on filedocumented in this encounter Care Teams Furnace Installer Helper Relationship Specialty Start Date End Date Luis Manuel Blanca MD [address] [place] [address] [address] [facility] [address] [place] [address] PCP - General Family Medicine 06/24/16 documented as of this encounter
--- OUTSIDE RECORDS SUMMARY | 2024-06-28 21:57 | XMS_ITS | Encounter Summary ---
Author Organization [facility] Address [address] [place] [address] Care Team Providers Care Business Partner Name Role Phone Cee Johnson MD Primary Care Provider [phone] Encounter Details Date Type Department Care Team (Late st Contact Info) Description 09/17/2013 Results Only [facility] - [facility] ([facility]) [address] [place], [place] [id number] Chris Lovett, DO [address] [facility] [address] [place], [place] [id number] Social History Tobacco Use Types Packs/Day Years [...] Date/Time Associated Diagnosis Comments SURGICAL PATHOLOGY Routine 09/17/2013 20 :37 EST documented in this encounter Results * SURGICAL PATHOLOGY (09/17/2013 20:37 EST) Pathology Report: SURGICAL PATHOLOGY REPORT Reports generated via electronic interface contain original data; however they are lacking the format of the original report. Caution should be taken when reading/interpreti ng unformatted reports. Name: ? CINTHYA BROWN ? Accession #: ? [id number] ? : ? 1960 (Age: 52) ??F ? Collect Date: ? 09/17/2013 ? Location: ? [facility] ? Receive Date: ? 09/17/2013 ? Provider: CHRIS LOVETT DO Copy to: CEE JOHNSON MD ? Final Pathologic Diagnosis: A. COLON, ASCENDING, POLYP, BIOPSY: - ??Fragment of tubular adenoma. ?? B. COLON, TRANSVERSE, POLYPS, BIOPSY: - ??Fragments of tubular adenomas. C. RECTUM, POLYP, BIOPSY: - ??Fragments of tubular adenoma. Document reviewed and electronically signed by: HAL ROSADO MD Report ??Date: 09/21/2013 16:51 By the signature above, the attending physician certifies that he/she has personally conducted a gross and/or microscopic examination of the described specimens and rendered or confirmed the above diagnosis. Specimen(s) Received: A. ??Ascending colon polyp (#1) B. ??Transverse colon polyps x2 (#2) C. ??Rectal polyp (#3) Clinical History: H/O colon adenoma Gross Description: A. ?Received in formalin labelled with proper patient identification (initials B, M) and 1. ascending colon polyp is a single pink-servin tissue fragment (0.3 x 0.3 x 0.2 cm). Submitted intact in A1. B. ?Received in formalin labelled with proper patient identification (initials B, M) and 2. transverse colon polyps x2 are two pink-servin tissue fragments (0.3 x 0.2 x 0.2 cm and 0.4 x 0.3 x 0.2 cm). Entirely submitted in B1. C. ?Received in formalin labelled with proper patient identification (initials B, M) and 3. rectal polyp are three pink-servin tissue fragments (0.3 x 0.2 x 0.2 cm to 0.3 x 0.3 x 0.2 cm). Entirely submitted in C1. Jayne Lanier 09/18/2013 09:26 AM End of Report [facility] 09/17/2013 20:3 7 EST 09/17/2013 20:37 EST us Chris Lovett DO PATHOLOGY ORDERABLES Fi nal Result [facility] [address] [place] [address] documented in this encounter Visit Diagnoses Not on filedocumented in this encounter Care Teams Business Partner Relationship Specialty Start Date End Date Cee Johnson MD [address] [place] [address] [place] [address] PCP - General 09/07/12 documented as of this encounter
--- OUTSIDE RECORDS SUMMARY | 2024-06-28 21:57 | XMS_ITS | Encounter Summary ---
[place] [address] Care Team Providers Care Rewinder Name Role Phone Luis Manuel Blanca MD Primary Care Provider [phone] Encounter Details Date Type Department Care Team (Latest Contact Info) Description 04/12/2024 Specialty [place] [address] Junior Daily CPHT Refill Coordination - 30 day recurrence [...] as of this encounter Progress Notes * Junior Daily CPHT - 04/12/2024 10:21 AM EDT Images from the original note were not included. Clinical Management Plan: Refill Specialty Pharmacy Consultation; Junior Daily CPHT Comprehensive Medication Management (CMM) Ms. Cinthya Brown is a 63 y.o. (1960) female who was contacted in regard to a specialty medication refill reminder. The caregiver. Caregiver name: Lulu requested a refill of Cannabidiol (Cbd). A [...] And Vomiting Medication Reconciliation Discrepancies (compared to [facility] med list) No Review Flowsheet 04/12/2024 10:22 AM Assessment What is the name of the specialty medication you are refilling? Epidiolex Are you taking any new medications? No Any new medical conditions? No Any new allergies? No Any new side effects that are bothersome? No Any missed doses since your last fill? 0 How many doses do you have remaining on hand? -- caregiver could not estimate # on hand Would you like a pharmacist to reach out to you to answer any questions? No What date will you need this fill by? -- caregiver could not estimate nb date Adherence: Any missed doses? No Patient understands no changes to current drug regimen were made. Junior Daily CPHT 04/12/24 10:24 AM documented in this encounter Plan of Treatment Upcoming Encounters Date Type Department Care Team (Late st Contact Info) Description 08/06/2024 11:00 AM EST [place] [address] Sarah Serra APRN [facility] [place] [address] documented as of this encounter Goals Goal Patient Goal Type Associated Problems Recent Progress Patient-Stated? Author [facility] Medication Compliance and Understanding Patient Facing Action Plan On track( 024 12:05 PM EDT) No Arnel Benitez, [facility] Note: Patient's specific desired goal: reduce number of seizures, with secondary goal of being able to taper some of the other AEDs being used Measured by: seizure record, side effects exhibited Time-frame to meet goal: 3-6 months documented as of this encounter Visit Diagnoses Not on filedocumented in this encounter Care Teams Rewinder Relationship Specialty Start Date End Date Luis Manuel Blanca MD [address] [place] [address] PCP - General Family Medicine 06/24/16 documented as of this encounter
--- OUTSIDE RECORDS SUMMARY | 2024-06-28 21:57 | XMS_ITS | Encounter Summary ---
[place] [address] Care Team Providers Care Market Consultant Name Role Phone Luis Manuel Blanca MD Primary Care Provider [phone] Encounter Details Date Type Department Care Team (Late st Contact Info) Description 02/12/2024 1:30 PM EDT Office [place] [address] Sarah Serra APRN [facility] [place] [address] Epilepsy seizure, generalized, convulsive Social History Tobacco Use Types Packs/Day Years Used Date Smoking Tobacco: Never Smokeless Tobacco: Never Tobacco Cessation:Counseling Given: No Alcohol Use Standard Drinks/Week Comments No 0 (1 standard drink = 0.6 oz pur e alcohol) Sex and Gender Information Value Date Recorded Sex Assigned at Not on file Gender Identity Not on file Sexual Orientation Not on file documented as of this encounter Last Filed Vital Signs Vital Sign Reading Time Taken Comments Blood Pressure - - Pulse - - Temperature - - Respiratory Rate - - Oxygen Saturation - - Inhaled Oxygen Concentration - - Weight 68 kg (150 lb) 02/12/2024 1:16 PM EDT pt reported Height 149.9 cm (4' 11) 02/12/2024 1:16 PM EDT pt reported Body Mass Index 30.3 02/12/2024 1:16 PM EDT documented in this encounter Progress Notes * Sarah Serra, URINALYSIS TECHNICIAN - 02/12/2024 1:30 PM EDT Subjective: [facility] TELEHEALTH FOLLOW UP NOTE Patient Active Problem List Diagnosis Wenham-Gastaut syndrome CAP (community acquired pneumonia) Epilepsy with status epilepticus Seizure Status epilepticus Sleep apnea Mental retardation I saw Cinthya Brown today for a scheduled follow-up evaluation. CC: Epilepsy HPI: Onset: 6 months Frequency: rare now Semiology: #1: Arms and legs jerk, face twitches, eyes roll up, bites tongue, deep breathing, last for about aminute. #2: Eyes flutter with chewing motion, often with jerking #3: One arm jerking alone Triggers:Excitement, cold, sometimes unprovoked Current Outpatient Medications: rOPINIRole (Requip) 0.5 mg tablet, , Disp: , Rfl: LORazepam (Ativan) 1 mg tablet, TAKE 1 TO 2 TABLETS BY MOUTH AT ONSET OF SEIZURE SYMPTOMS IF NOT EFFECTIVE MAY REPEAT DOSE, Disp: 10 tablet, Rfl: 0 diazePAM (Valtoco) 10 mg/spray (0.1 mL) [place], Non-Aerosol, 10 mg by Nasal route as needed (seizureclusters (call if ineffective) Max dose 10mg daily unless instucted otherwise by office.)., Disp: 2each, Rfl: 3 melatonin 3 mg tablet, Take 6-9 mg nightly as needed for sleep., Disp: 90 tablet, Rfl: 5 cannabidioL (Epidiolex) 100 mg/mL Solution, TAKE 4.3 MLS BY MOUTH TWO TIMES A DAY, Disp: 258 mL, Rfl: 5 pantoprazole EC (Protonix) [address] tablet, Take 40 mg by mouth daily., Disp: , Rfl: levETIRAcetam (Keppra) 1,000 mg tablet, Take 1 tab nightly for 2 weeks, then discontinue completely., Disp: 14 tablet, Rfl: 0 levETIRAcetam (Keppra) 750 mg tablet, Take 1 tab AM for 2 weeks, then increase to 1 tab twice a day., Disp: 60 tablet, Rfl: 5 PHENobarbitaL (Luminal) 60 mg tablet, TAKE 2 TABLETS BY MOUTH NIGHTLY., Disp: 60 tablet, Rfl: 5 Onfi 20 mg tablet, TAKE 1 TABLET BY MOUTH EVERY EVENING, Disp: 30 tablet, Rfl: 5 rufinamide (Banzel) 400 mg tablet, Take 3 tabs AM, 2 tabs at noon, and 3 tabs at night., Disp: 224 tablet, Rfl: 0 budesonide (Uceris) [address], ER tablet, , Disp: , Rfl: diphenoxylate-atropine (Lomotil) 2.5-0.025 mg tablet, , Disp: , Rfl: BanzeL 400 mg tablet, TAKE 3 TABLETS BY MOUTH EVERY MORNING TAKE 2 TABLETS AT NOON AND TAKE 3 TABLETS AT BEDTIME, Disp: 224 tablet, Rfl: 11 cholecalciferol, Vitamin D3, (Vitamin D) 25 mcg (1,000 unit) Capsule, Take 1 capsule by mouth 2 times daily., Disp: 60 capsule, Rfl: 11 sertraline (Zoloft) 100 mg tablet, TAKE ONE TABLET BY MOUTH EVERY DAY, Disp: 90 tablet, Rfl: 3 zonisamide (Zonegran) 100 mg capsule, Take 1 tab AM and 2 tabs PM (please bubble pack), Disp: 84 capsule, Rfl: 11 albuteroL (ACCUNEB) 1.25 mg/3 mL Solution for Nebulization, INHALE THE CONTENTS OF ONE VIAL VIA NEBULIZER FOUR TIMES A DAY NEEDED, Disp: , Rfl: bisacodyl EC (Dulcolax) 5 mg Tablet, Delayed Release (E.C.), 5 mg daily as needed., Disp: , Rfl: ondansetron (ZUPLENZ ORAL), ondansetron 4MG Tablet 1 Tab PO q8 hr PRN, Disp: , Rfl: polyethylene glycoL (Miralax) 17 gram Powder in Packet, daily as needed., Disp: , Rfl: loperamide (IMODIUM A-D) 2 mg Tablet, Take 2 mg by mouth 4 times daily as needed for Diarrhea. Maximum 16 mg in 24 hours, Disp: , Rfl: clotrimazole-betamethasone (LOTRISONE) 1-0.05 % Cream, Apply 1 Application topically as needed., Disp: , Rfl: 0 NYSTOP Powder, Apply 1 Application topically as needed., Disp: , Rfl: 0 acetaminophen (TYLENOL) 500 mg Tablet, Take 500 mg by mouth 2 times daily., Disp: , Rfl: QUEtiapine (SEROQUEL) 50 mg Tablet, Take 150 mg by mouth nightly., Disp: , Rfl: loratadine (CLARITIN) 10 mg Tablet, Take 10 mg by mouth daily as needed for Allergies., Disp: , Rfl: esomeprazole (NEXIUM) 40 mg Capsule, Delayed Release(E.C.), Take 40 mg by mouth daily. Reported on 11/18/2016, Disp: , Rfl: ferrous sulfate 325 mg (65 mg iron) Tablet, Take 325 mg by mouth daily., Disp: , Rfl: atorvastatin (LIPITOR) 40 mg tablet, Take 40 mg by mouth daily., Disp: , Rfl: Past AEDs: Phenobarbital, Lorazepam, Trileptal, Depakote, Lamictal (didn't work, hair fell out) Hx GTC: Y Hx Tongue Biting: Y Hx Incontinence: Y Daytime Preponderance: Usually occur in sleep, sometimes during the day Prior workup: VEEG:VEEG monitoring prior to 2003, guardian is unsure of results MRI: MRI Brain (02/28/2002): FINDINGS; There are no intracranial signal abnormalities. The bilateralhippocampi are normally formed. The ventricles and subarachnoid spaces are normal in size and configuration. There is no midline shift or mass effect. The gradient recall sequences demonstrate normalsignal. IMPRESSION: Normal. S/P: VNS in 2003 Risk factors for epilepsy: Developmental Delay. No Hx of head trauma, meningoencephalitis, complications, complex febrile seizures. No family history of epilepsy. Interval history: Seizure Control: 08/27/2014 2:50 PM QEpilepsy Last seizure was: Within past year Number of seizures in past month: 0 Were seizures disabling? No Patient presents today with her caregiver Lulu Since her last visit patient has had increased seizures, initially they thought it was just in the setting of illness but however she is now started to have seizures during other times in setting of her prior triggers which have not been an issue for the last couple of years until now. They are concerned that it is secondary to the Keppra decrease back in October and they would like togo back to her prior dose. It is a little strange that she did so well until this past month on thelower dose. VNS is between 11 and 25%, however IPI indicator is not on. We are going to recheck that today. There was some confusion about her Ativan refill, hoping to get a refill on this today. They reportthat PCP has since started her on a treatment for restless leg syndrome and since then her sleepingquality has gotten significantly better. She is now sleeping about 6 hours a night. Social History: Social History Socioeconomic History Marital status: Single Spouse name: Not on file Number of children: Not on file Years of education: Not on file Highest education level: Not on file Occupational History Not on file Tobacco Use Smoking status: Never Smokeless tobacco: Never Vaping Use Vaping status: Never Used Substance and Sexual Activity Alcohol use: No Drug use: Yes Comment: Hemp Oil Sexual activity: Not on file Comment: deferred Other Topics Concern Not on file Social History Narrative Not on file Social Determinants of Health Financial Resource Strain: Not on file Food Insecurity: Not on file Transportation Needs: Not on file Physical Activity: Not on file Intimate Partner Violence: Not on file Housing Stability: Not on file Social Factors: QEPILEPSY SOCIAL FACTORS 02/12/24 Employment status: No Currently driving: No Considering No Past Medical History: Diagnosis Date Hyperlipidemia MR (mental retardation) RIA (obstructive sleep apnea) Seizures Current Outpatient Medications on File Prior to Visit Medication Sig Dispense Refill rOPINIRole (Requip) 0.5 mg tablet LORazepam (Ativan) 1 mg tablet TAKE 1 TO 2 TABLETS BY MOUTH AT ONSET OF SEIZURE SYMPTOMS IF NOT EFFECTIVE MAY REPEAT DOSE 10 tablet 0 diazePAM (Valtoco) 10 mg/spray (0.1 mL) [place], Non-Aerosol 10 mg by Nasal route as needed (seizure clusters (call if ineffective) Max dose 10mg daily unless instucted otherwise by office.). 2 each 3 melatonin 3 mg tablet Take 6-9 mg nightly as needed for sleep. 90 tablet 5 cannabidioL (Epidiolex) 100 mg/mL Solution TAKE 4.3 MLS BY MOUTH TWO TIMES A DAY 258 mL 5 pantoprazole EC (Protonix) [address] tablet Take 40 mg by mouth daily. levETIRAcetam (Keppra) 1,000 mg tablet Take 1 tab nightly for 2 weeks, then discontinue completely.14 tablet 0 levETIRAcetam (Keppra) 750 mg tablet Take 1 tab AM for 2 weeks, then increase to 1 tab twice a day.60 tablet 5 PHENobarbitaL (Luminal) 60 mg tablet TAKE 2 TABLETS BY MOUTH NIGHTLY. 60 tablet 5 Onfi 20 mg tablet TAKE 1 TABLET BY MOUTH EVERY EVENING 30 tablet 5 rufinamide (Banzel) 400 mg tablet Take 3 tabs AM, 2 tabs at noon, and 3 tabs at night. 224 tablet 0 budesonide (Uceris) [address], ER tablet diphenoxylate-atropine (Lomotil) 2.5-0.025 mg tablet BanzeL 400 mg tablet TAKE 3 TABLETS BY MOUTH EVERY MORNING TAKE 2 TABLETS AT NOON AND TAKE 3 TABLETS AT BEDTIME 224 tablet 11 cholecalciferol, Vitamin D3, (Vitamin D) 25 mcg (1,000 unit) Capsule Take 1 capsule by mouth 2 times daily. 60 capsule 11 sertraline (Zoloft) 100 mg tablet TAKE ONE TABLET BY MOUTH EVERY DAY 90 tablet 3 zonisamide (Zonegran) 100 mg capsule Take 1 tab AM and 2 tabs PM (please bubble pack) 84 capsule 11 albuteroL (ACCUNEB) 1.25 mg/3 mL Solution for Nebulization INHALE THE CONTENTS OF ONE VIAL VIA NEBULIZER FOUR TIMES A DAY NEEDED bisacodyl EC (Dulcolax) 5 mg Tablet, Delayed Release (E.C.) 5 mg daily as needed. ondansetron (ZUPLENZ ORAL) ondansetron 4MG Tablet 1 Tab PO q8 hr PRN polyethylene glycoL (Miralax) 17 gram Powder in Packet daily as needed. loperamide (IMODIUM A-D) 2 mg Tablet Take 2 mg by mouth 4 times daily as needed for Diarrhea. Maximum 16 mg in 24 hours clotrimazole-betamethasone (LOTRISONE) 1-0.05 % Cream Apply 1 Application topically as needed. 0 NYSTOP Powder Apply 1 Application topically as needed. 0 acetaminophen (TYLENOL) 500 mg Tablet Take 500 mg by mouth 2 times daily. QUEtiapine (SEROQUEL) 50 mg Tablet Take 150 mg by mouth nightly. loratadine (CLARITIN) 10 mg Tablet Take 10 mg by mouth daily as needed for Allergies. esomeprazole (NEXIUM) 40 mg Capsule, Delayed Release(E.C.) Take 40 mg by mouth daily. Reported on 11/18/2016 ferrous sulfate 325 mg (65 mg iron) Tablet Take 325 mg by mouth daily. atorvastatin (LIPITOR) 40 mg tablet Take 40 mg by mouth daily. No current facility-administered medications on file prior to visit. Allergies Allergen Reactions Amoxicillin-Pot Clavulanate Rash Risedronate Sodium Nausea And Vomiting Objective: Physical Exam: Patient alert and awake, she is engaged with examiner and caregiver. She is quite excited and verbal today. She is seated in wheelchair. Procedure: VNS not interrogated today, prior settings Output current: 2.0 milliamps Signal frequency: 20 Hertz Pulse Width:500 microseconds On time:14 sec Off time:1.1 min Autostim activated current: 2.0 mA Autostim on time: 30 seconds. Autostim pulse width: 500 microseconds Magnet activated current: 2.25 mA Magnet on time: 30 seconds. Magnet pulse width: 500 microseconds Battery 11-25% no IPI indicator Assessment and Plan: - Epilepsy: She has been having some increased seizure [...] move forward with they have earlier VNS replacement. - RIA: CPAP nightly, melatonin 6-9mg qhs prn. - Screen for medication toxicity: Since we are changing her dose we will not repeat labs today. - The patient is currently not a candidate for epilepsy surgery. - Bone health: Pt is currently taking Vitamin D. - Social and psychiatric issues: currently stable. - Caregiver counselled about medications including dosing instructions, side effects, benefit and risk of adverse events, call immediately if s/s of adverse events. - Patient will be seen again by the epilepsy team in 3 months. - Caregiver verbalizes understanding and agrees with plan. Sarah Serra APRN [facility]psy [facility] Department of Neurology This note was created using voice recognition software. It was reviewed for major content, however there may be some small discrepancies due to the limitations of the software program. documented in this encounter Plan of Treatment Upcoming Encounters Date Type Department Care Team (Late st Contact Info) Description 08/06/2024 11:00 AM EST Office [place] [address] Sarah Serra APRN [facility] [place] [address] documented as of this encounter Goals Goal Patient Goal Type Associated Problems Recent Progress Patient-Stated? Author [facility] Medication Compliance and Understanding Patient Facing Action Plan On track( 024 12:05 PM EDT) No Arnel Benitez, [facility] Note: Patient's specific desired goal: reduce number of seizures, with secondary goal of being able to taper some of the other AEDs being used Measured by: seizure record, side effects exhibited Time-frame to meet goal: 3-6 months documented as of this encounter Visit Diagnoses Diagnosis Epilepsy seizure, generalized, convulsive Generalized convulsive epilepsy without mention of intractable epilepsy documented in this encounter Care Teams Market Consultant Relationship Specialty Start Date End Date Luis Manuel Blanca MD [address] [facility] [address] [place] [address] PCP - General Family Medicine 06/24/16 documented as of this encounter
--- OUTSIDE RECORDS SUMMARY | 2024-06-28 21:57 | XMS_ITS | Encounter Summary ---
Author Organization [facility] Address [address] [place] [address] Care Team Providers Care Physical Education Department Chair Name Role Phone Cee Escobar MD Primary Care Provider [phone] Encounter Details Date Type Department Care Team (Latest Contact Info) Description 09/17/2013 10:20 EST - 09/17/2013 23:59 EST Hospital Encounter [address] [address] Unknown, Provider, MD Discharge Disposition: Home or [...] Code Departure Means Destination Home or Self Usp documented in this encounter Plan of Treatment Not on file documented as of this encounter Visit Diagnoses Not on filedocumented in this encounter Care Teams Physical Education Department Chair Relationship Specialty Start Date End Date Cee Escobar MD [address] [place] [address] [place] [address] PCP - General 09/07/12 documented as of this encounter
--- OUTSIDE RECORDS SUMMARY | 2024-06-28 21:57 | XMS_ITS | Encounter Summary ---
[place] [address] Care Team Providers Care Wellness Health Coach Name Role Phone Luis Manuel Blanca MD Primary Care Provider [phone] Encounter Details Date Type Department Care Team (Latest Contact Info) Description 05/30/2024 Specialty [place] [address] Jia Greco CPHT Refill Coordination - 30 day recurrence [...] as of this encounter Progress Notes * Jia Greco CPHT - 05/30/2024 10:04 AM EDT Clinical Management Plan: Refill Specialty Pharmacy Consultation; Jia Greco CPHT Comprehensive Medication Management (CMM) Ms. Cinthya Brown is a 63 y.o. (1960) female who was contacted in regard to a specialty medication refill reminder. The caregiver. Caregiver name: Crescencio requested a refill of Cannabidiol (Cbd).A review of the medication therapy was performed. The medication was refilled as scheduled, and allmedication related questions and concerns were addressed. The specialty pharmacy staff will follow up with the patient 5-7 days prior to next refill. Was a change made to the Care Plan: No Medication Therapy Recommendations No medication therapy recommendations to display Allergies and Drug intolerance: Allergies Allergen Reactions Amoxicillin-Pot Clavulanate Rash Risedronate Sodium Nausea And Vomiting Medication Reconciliation Discrepancies (compared to [facility] med list) No Review Flowsheet 05/30/2024 10:04 AM Assessment What is the name of [...] date will you need this fill by? 06/05/2024 Adherence: Any missed doses? No Patient understands no changes to current drug regimen were made. Jia Greco CPHT 05/30/24 10:04 AM documented in this encounter Plan of Treatment Upcoming Encounters Date Type Department Care Team (Late st Contact Info) Description 08/06/2024 11:00 AM EST Office [place] [address] Sarah Serra APRN [facility] [place] [address] documented as of this encounter Goals Goal Patient Goal Type Associated Problems Recent Progress Patient-Stated? Author [facility] Medication Compliance and Understanding Patient Facing Action Plan On track( 024 12:05 PM EDT) No Arnel Benitez, [facility] Note: Patient's specific desired goal: reduce number of seizures, with secondary goal of being able to taper some of the other AEDs being used Measured by: seizure record, side effects exhibited Time-frame to meet goal: 3-6 months documented as of this encounter Visit Diagnoses Not on filedocumented in this encounter Care Teams Wellness Health Coach Relationship Specialty Start Date End Date Luis Manuel Blanca MD [address] [place] [address] PCP - General Family Medicine 06/24/16 documented as of this encounter
--- OUTSIDE RECORDS SUMMARY | 2024-06-28 21:57 | XMS_ITS | Encounter Summary ---
Author Organization [facility] Address [address] [place] [address] Care Team Providers Care Coyote Hunter Name Role Phone Cee Escobar MD Primary Care Provider [phone] Encounter Details Date Type Department Care Team (Latest Contact Info) Description 03/18/2014 14:53 EDT - 03/18/2014 23:59 EDT Hospital Encounter [address] [address] Unknown, Provider, MD Discharge Disposition: Home or [...] on filedocumented in this encounter Care Teams Coyote Hunter Relationship Specialty Start Date End Date Cee Escobar MD [address] [place] [address] [place] [address] PCP - General 09/07/12 documented as of this encounter
--- OUTSIDE RECORDS SUMMARY | 2024-06-28 21:57 | XMS_ITS | Encounter Summary ---
[place] [address] Care Team Providers Care Quitline Counselor Name Role Phone Luis Manuel Blanca MD Primary Care Provider [phone] Reason for Visit * Reason Onset Date Comments Other 06/18/2024 Med issue Encounter Details Date Type Department Care Team (Late st Contact Info) Description 06/18/2024 Telephone [place] [id number] Sarah Serra APRN [facility] [place] [address] Other (Med issue) Social History Tobacco Use Types Packs/Day Years [...] Encounter - Sarah Serra APRN - 06/19/2024 5:46 PM EST Script updated * Telephone Encounter - Angelica Real RN - 06/18/2024 2:10 PM EST Spoke with Crescencio She is currently also prescribed The same dosage of med for anxiety that she takes nightly. Insurance will not pay for both. Will cover if they are different strengths. Crescencio also wanted to let Sarah know that pt has had an increase in seizure activity. She has been having them weekly now. * Telephone Encounter - Kourtney Banuelos RN - 06/18/2024 9:12 AM EST Copied from [facility] #[id number]. Topic: Specialty Dept CRMs - Generic Call >> Jun 18, 2024 8:51 AM Kristen Molina wrote: Specialist: Maryse Relationship (if other than patient-full name): Crescencio Sumner, Caregiver Reason for Call: Crescencio states patient has lorazepam prescribed by Sarah Serra, and another provider started recently prescribing it as well for anxiety. Insurance won't pay for both prescriptions. Please call Crescencio to discuss options. documented in this encounter Plan of Treatment Upcoming Encounters Date Type Department Care Team (Late st Contact Info) Description 08/06/2024 11:00 AM EST Office [place] [address] Sarah Serra APRN [facility] [place] [address] documented as of this encounter Goals Goal Patient Goal Type Associated Problems Recent Progress Patient-Stated? Author [facility] Medication Compliance and Understanding Patient Facing Action Plan On track( 024 12:05 PM EDT) No Arnel Benitez, [facility] Note: Patient's specific desired goal: reduce number of seizures, with secondary goal of being able to taper some of the other AEDs being used Measured by: seizure record, side effects exhibited Time-frame to meet goal: 3-6 months documented as of this encounter Visit Diagnoses Not on filedocumented in this encounter Care Teams Quitline Counselor Relationship Specialty Start Date End Date Luis Manuel Blanca MD [address] [facility] [facility] [facility] 1 [place] [address] PCP - General Family Medicine 06/24/16 documented as of this encounter
--- OUTSIDE RECORDS SUMMARY | 2024-06-28 21:57 | XMS_ITS | Encounter Summary ---
Author Organization [facility] Address [address] [place] [address] Care Team Providers Care Township Supervisor Name Role Phone Unavailable Primary Care Provider Unavailabl e Encounter Details Date Type Department Care Team (Late st Contact Info) Description 06/26/2009 Orders Only [facility] Laboratory Services - [facility] ([facility]) [address], [place] [id number] Cee Escobar MD [facility] [place], [place] [id number] Social History Tobacco Use Types Packs/Day Years [...] Procedure Name Priority Date/Time Associated Diagnosis Comments HPV DETECTION, HIGH RISK TYPES Routine 06/26/2009 14:30 EST CYTOPATHOLOGY Routine 06/26/2009 0:00 EST documented in this encounter Results * HUMAN PAPILLOMA VIRUS DNA TEST (06/26/2009 14:30 EST) Specimen Description Cervix, ThinPrep vial [facility] Result Negative for HPV types 16, 18, 31, 33, 35, 39, 45, 51, 52, 56, 58, 59, and 68. [facility] Report Status Final 07/08/2009 [facility] 06/26/2009 14:3 0 EST 07/06/2009 14:30 EST Cee Escobar MD MICROBIOLOGY - GENERAL PATA BLES Final Result [facility] [address] [place] [address] * CYTOPATHOLOGY (06/26/2009 0:00 EST) Pathology Report: CYTOPATHOLOGY REPORT ? Reports generated via electronic interface contain original data; ? however they are lacking the format of the original report. ? Caution should be taken when reading/interpreti ng unformatted reports. ? Name: ? CINTHYA BROWN ? Accession #: ? [id number] ? : ? 1960 (Age: 48) ??F ?Collect Date: ? 06/26/2009 ? Location: ? [facility] ? Receive Date: ? 06/29/2009 ? Provider: ?CEE SCOTTYAN MD ? Copy to: ? Specimen/Source: ?Pap Test, Cervix/Endocervix, ThinPrep Imaging System ? with manual evaluation ? Last Menstrual Period: ? 10/23/09 ? Other: ? HPVDX - HPV testing requested regardless of diagnosis on current ThinPrep Pap ?? test. ? SPECIMEN ADEQUACY ? Satisfactory for Evaluation ? - transformation zone component present ? GENERAL CATEGORIZATION ? Negative for Intraepithelial Lesion or Malignancy ? Document reviewed and electronically signed by: ? Lynan Rush, [place](ASCP) ? Report Date: ??07/06/2009 10:18 ? End of Report ? [facility] 06/26/2009 06/29/2009 us Cee Escobar MD PATHOLOGY ORDERABLES Final Re sult [facility] [address] [place] [address] documented in this encounter Visit Diagnoses Not on filedocumented in this encounter
--- OUTSIDE RECORDS SUMMARY | 2024-06-28 21:57 | XMS_ITS | Encounter Summary ---
Author Organization [facility] Address [address] [place] [address] Care Team Providers Care Silk Spooler Name Role Phone Cee Escobar MD Primary Care Provider [phone] Encounter Details Date Type Department Care Team (Late st Contact Info) Description 11/21/2021 Lab Requisition [facility] Pathology & Laboratory Medicine - [address] [address] Outr Resulting Lab, Provider Social History Tobacco [...] Procedure Name Priority Date/Time Associated Diagnosis Comments FECAL BACTERIAL PATHOGENS BY PCR Routine 11/21/2021 11:34 EDT GIARDIA AND CRYPTOSPORIDIUM ANTIGENS Routine 11/21/2021 11:34 EDT OVA/PARASITE EXAM Routine 11/21/2021 11: 34 EDT documented in this encounter Results * GIARDIA AND CRYPTOSPORIDIUM ANTIGENS (11/21/2021 11:34 EDT) Giardia and Cryptosporidium Cryptosporidium Antigen Neg and Giardia Antigen Neg Cryptosporidium Antigen Neg and Giardia Antigen Neg 2 10:37 EDT [facility] Feces SPECIMEN FROM RECTUM / Unknown 11/21/2021 11:34 EDT 11/22/2021 17:55 EDT us Provider Outr Resulting Lab MICROBIOLOGY - GENER AL ORDERABLES Final Result Performing Organization Address [facility] Co de Phone Number [facility] [address] [place] [address] * FECAL BACTERIAL PATHOGENS BY PCR (11/21/2021 11:34 EDT) Salmonella PCR Negative Negative 11/22/2021 23:43 EDT [facility] Shigella/Enteroin vasive E. coli Negative Negative 11/22/2021 23:43 EDT [facility] HN LAB CAMPYLOBACTER PCR Negative Negative 11/22/2021 23:43 EDT [facility] Shiga Toxin PCR Negative Negative 23:43 EDT [facility] Feces SPECIMEN FROM RECTUM / Unknown 11/21/2021 11:34 EDT 11/22/2021 17:55 EDT us Provider Outr Resulting Lab MICROBIOLOGY - GENER AL ORDERABLES Final Result Performing Organization Address [facility] de Phone Number [facility] [address] [place] [address] * OVA/PARASITE EXAM (11/21/2021 11:34 EDT) Parasite No ova and parasites seen. 11/23/2021 13:31 EDT [facility] Feces SPECIMEN FROM RECTUM / Unknown 11/21/2021 11:34 EDT 11/22/2021 17:55 EDT Narrative [facility] - 11/23/2021 13:31 EDT (If Cryptosporidium, Cyclospora, or Microsporidium are suspected, specific tests must be requested.) Single negative specimen does not rule out the possibility of a parasitic infection. us Provider Outr Resulting Lab MICROBIOLOGY - GENER AL ORDERABLES Final Result Performing Organization Address [facility]/ZIP Co de Phone Number [facility] [address] [place] [address] documented in this encounter Visit Diagnoses Not on filedocumented in this encounter Care Teams Silk Spooler Relationship Specialty Start Date End Date Cee Escobar MD [address] [place] [address] [place] [address] PCP - General 09/07/12 documented as of this encounter
--- OUTSIDE RECORDS SUMMARY | 2024-06-28 21:57 | XMS_ITS | Encounter Summary ---
[place] [address] Care Team Providers Care Visual Specialist Name Role Phone Luis Manuel Blanca MD Primary Care Provider [phone] Encounter Details Date Type Department Care Team (Latest Contact Info) Description 05/02/2024 Specialty [place] [address] John Gil CPHT Refill Coordination - 30 [...] Notes * John Gil CPHT - 05/02/2024 11:00 AM EDT Clinical Management Plan: Refill Specialty [...] And Vomiting Medication Reconciliation Discrepancies (compared to [facility] med list) No Review Flowsheet 05/02/2024 11:01 AM Assessment What is the name of [...] date will you need this fill by? 05/10/2024 Adherence: Any missed doses? No Patient understands no changes to current drug regimen were made. John Gil CPHT 05/02/24 11:01 AM documented in this encounter Plan of Treatment Upcoming Encounters Date Type Department Care Team (Late st Contact Info) Description 08/06/2024 11:00 AM EST [place] [address] Sarah Serra APRN [facility] [place] [address] documented as of this encounter Goals Goal Patient Goal Type Associated Problems Recent Progress Patient-Stated? Author [facility] Medication Compliance and Understanding Patient Facing Action Plan On track( 024 12:05 PM EDT) No Arnel Benitez, [facility] Note: Patient's specific desired goal: reduce number of seizures, with secondary goal of being able to taper some of the other AEDs being used Measured by: seizure record, side effects exhibited Time-frame to meet goal: 3-6 months documented as of this encounter Visit Diagnoses Not on filedocumented in this encounter Care Teams Visual Specialist Relationship Specialty Start Date End Date Luis Manuel Blanca MD [address] [place] [address] PCP - General Family Medicine 06/24/16 documented as of this encounter
--- OUTSIDE RECORDS SUMMARY | 2024-06-28 21:57 | XMS_ITS | Encounter Summary ---
[place] [address] Care Team Providers Care Highway Research Engineer Name Role Phone Luis Manuel Blanca MD Primary Care Provider [phone] Reason for Visit * Reason Onset Date Comments Dental Injury 06/05/2024 Encounter Details Date Type Department Care Team (Late st Contact Info) Description 06/05/2024 [place] [phone] Sarah Serra APRN [facility] [place] [address] Dental Injury Social History Tobacco Use Types Packs/Day Years [...] encounter Miscellaneous Notes * Telephone Encounter - Terri Baer RN - 06/06/2024 10:28 AM EDT Attempted to call pt's DPR Fifi with Sarah's recommendation regarding the dental injury- message left and asked to call the clinic at [phone]. * Telephone Encounter - Tiff Gramajo RN - 06/05/2024 2:18 PM EDT Copied from [facility] #[id number]. Topic: Specialty Dept CRMs - Generic Call >> Jun 05, 2024 12:57 PM Angi Christensen wrote: Specialist: Sarah Serra APRN Relationship (if other than patient-full name): Fifi Sumner, susan Reason for Call: Patient's pr states patient has a broken tooth that is bleeding and looking for guidance. Patients pr states that dentist will not treat her due to the epilepsy. Please call to discuss [phone] documented in this encounter Plan of Treatment Upcoming Encounters Date Type Department Care Team (Late st Contact Info) Description 08/06/2024 11:00 AM EST Office [place] [address] Sarah Serra APRN [facility] [place] [address] documented as of this encounter Goals Goal Patient Goal Type Associated Problems Recent Progress Patient-Stated? Author [facility] Medication Compliance and Understanding Patient Facing Action Plan On track( 024 12:05 PM EDT) No Arnel Benitez, [facility] Note: Patient's specific desired goal: reduce number of seizures, with secondary goal of being able to taper some of the other AEDs being used Measured by: seizure record, side effects exhibited Time-frame to meet goal: 3-6 months documented as of this encounter Visit Diagnoses Not on filedocumented in this encounter Care Teams Highway Research Engineer Relationship Specialty Start Date End Date Luis Manuel Blanca MD [address] [place] [address] PCP - General Family Medicine 06/24/16 documented as of this encounter
--- OUTSIDE RECORDS SUMMARY | 2024-06-28 21:57 | XMS_ITS | Referral Summary ---
Author Organization [facility] Address [address] [place] [address] Care Team Providers Care Features Reporter Name Role Phone Cee Escobar MD Primary Care Provider [phone] Social History Tobacco Use Types Packs/Day Years Used Date Smoking Tobacco: Never Assessed Comments Unknown Sex and Gender Information Value Date Recorded Sex Assigned at Not on file Legal Sex Female 17:36 EST Gender Identity Not on file Sexual Orientation Not on file Plan of Treatment Not on file Care Teams Features Reporter Relationship Specialty Start Date End Date Cee Escobar MD [facility] [facility] [place] [place] [address] PCP - General 09/07/12
--- OUTSIDE RECORDS SUMMARY | 2024-06-28 21:58 | XMS_ITS | Encounter Summary ---
[place] [address] Care Team Providers Care Boring Mill Set Up Operator Name Role Phone Luis Manuel Blanca MD Primary Care Provider [phone] Reason for Visit * Reason Comments Medication Management Patient Education Encounter Details Date Type Department Care Team (Late st Contact Info) Description 10/20/2022 Specialty [place] [id number] Bj Heck [facility] Social History Tobacco Use Types Packs/Day Years [...] this encounter Progress Notes * Bj Heck [facility] - 10/20/2022 9:16 AM EDT Follow up consult: Specialty Pharmacy Follow Up Consultation; Bj Heck [facility] (CMM) Cinthya Brown Diagnosis: epilepsy Therapy Start Date: 01/2019 Contact in person or via telephone:phone Ms. Cinthya Brown is a 62 y.o. (1960) female who was contacted in regard to specialty medication. Spoke with caregiver. Caregiver name: Crescencio (Caregiver) regarding Epidiolex. A review of the medication therapy was performed. The medication was Refilled as scheduled, and all medication relatedquestions and concerns were addressed. The specialty pharmacy staff will follow up with the patient5-7 days prior to next refill. Is the patient willing to proceed with the Clinical Assessment? Yes Summary and Recommendations: Today I spoke to Crescencio the caregiver for Cinthya Brown for a 6 month follow up consult on her epidiolex therapy. Crescencio states that the only change to Cinthya's medication regimen is the addition of lomotil due to some sporadic diarrhea in the last few months. We went over her regimen, allergies, andconditions without finding any major issues. Crescencio is aware that diarrhea is a side effect of epidiolex, but the presentation does not seem to be epidiolex related. The diarrhea comes and goes and isnot associated with taking the medication. With that said they would like to keep her on the epidiolex and manage the side effects as the therapy has been highly effective for her. She has not had any seizure activity in the last 90 days. Crescencio has been her primary caregiver for the past 11 years and states that these past 3 months have been the best she has ever done from an epilepsy perspective. She is able to participate in more activities around the house and it more responsive. She is sleeping and eating better. Overall she seems happier and Crescencio rates her quality of life as a 9/10 at this time. They have not missed any doses and are aware of the importance of adherence. They plan to visit the [facility] and get her AED levels and LFTs checked sometime this month. Theystate that they are happy with the therapy and know to contact us here at the pharmacy if they everhave any questions or concerns. They are aware of the specialty pharmacy services. We will continueto reach out to them monthly for refills and then biannually for consult going forward. Clinic follow-up needed: no Allergies and Drug intolerance: Allergies Allergen Reactions ??? Amoxicillin-Pot Clavulanate Rash ??? Risedronate Sodium Nausea And Vomiting Problem List: Patient Active Problem List Diagnosis Code ??? Status epilepticus G40.901 ??? Sleep apnea G47.30 ??? Mental retardation F79 ??? Seizure R56.9 ??? CAP (community acquired pneumonia) J18.9 ??? 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 [place] syndrome G40.812 Special Dietary or Hydration Requirements: no Medication Reconciliation Discrepancies (compared to [facility] med list) no Medication List: Current Outpatient Medications Medication Sig Note Dispense Refill ??? levETIRAcetam (Keppra) 1,000 mg Tablet Take 1 tablet by mouth 2 times daily. 180 tablet 0 ??? BanzeL 400 mg Tablet TAKE 3 TABLETS BY MOUTH EVERY MORNING TAKE 2 TABLETS AT NOON AND TAKE 3 TABLETS AT BEDTIME 224 tablet 11 ??? albuteroL (ACCUNEB) 1.25 mg/3 mL Solution for Nebulization INHALE THE CONTENTS OF ONE VIAL VIA NEBULIZER FOUR TIMES A DAY NEEDED ??? bisacodyl EC (Dulcolax) 5 mg Tablet, Delayed Release (E.C.) 5 mg daily as needed. ??? ondansetron (ZUPLENZ ORAL) ondansetron 4MG Tablet 1 Tab PO q8 hr PRN ??? polyethylene glycoL (Miralax) 17 gram Powder in Packet daily as needed. ??? loperamide (IMODIUM A-D) 2 mg Tablet Take 2 mg by mouth 4 times daily as needed for Diarrhea. Maximum 16 mg in 24 hours ??? cannabidioL (Epidiolex) 100 mg/mL Solution 4.3 ml twice daily. 258 mL 5 ??? PHENobarbitaL (Luminal) 60 mg Tablet TAKE 2 TABLETS BY MOUTH NIGHTLY 180 tablet 1 ??? Onfi 20 mg Tablet TAKE 1 TABLET BY MOUTH EVERY EVENING 90 tablet 1 ??? zonisamide (Zonegran) 100 mg Capsule Take 3 capsules by mouth nightly. (please bubble pack) (Patient taking differently: Take 100 mg by mouth 2 times daily. (please bubble pack). 2 caplets in theevening.) 84 capsule 11 ??? diazePAM (Valtoco) 10 mg/spray (0.1 mL) [place], Non-Aerosol 10 mg by Nasal route as needed (seizure clusters (call if ineffective) Max dose 10mg daily unless instucted otherwise by office.). 2 each 3 ??? sertraline (ZOLOFT) 100 mg Tablet TAKE ONE TABLET BY MOUTH EVERY DAY 90 tablet 3 ??? clotrimazole-betamethasone (LOTRISONE) 1-0.05 % Cream Apply 1 Application topically as needed. 0 ??? NYSTOP Powder Apply 1 Application topically as needed. 0 ??? LORazepam (ATIVAN) 1 mg Tablet Take 1-2 tablets at onset of seizure symptoms, if ineffective after 30 minutes may repeat dose. If still not effective please call neurologist international sourcing manager. Max 4mg daily. Take 0.5-1mg prior to seizure triggering activity. 45 tablet 5 ??? cholecalciferol, Vitamin D3, (VITAMIN D) 1,000 unit Capsule Take 1 capsule by mouth 2 times daily. 60 capsule 5 ??? acetaminophen (TYLENOL) 500 mg Tablet Take 500 mg by mouth 2 times daily. ??? QUEtiapine (SEROQUEL) 50 mg Tablet Take 50 mg by mouth nightly. 05/21/2019: 50mg Nightly ??? melatonin 3 mg Tablet Take 6 mg by mouth nightly. ??? loratadine (CLARITIN) 10 mg Tablet Take 10 mg by mouth daily as needed for Allergies. 01/28/2019: seasonal ??? esomeprazole (NEXIUM) 40 mg Capsule, Delayed Release(E.C.) Take 40 mg by mouth daily. Reported on 11/18/2016 ??? ferrous sulfate 325 mg (65 mg iron) Tablet Take 325 mg by mouth daily. ??? atorvastatin (LIPITOR) 40 mg tablet Take 40 mg by mouth daily. No current facility-administered medications for this visit. Most Recent Vitals: Ht Readings from Last 1 Encounters: 05/21/19 147.3 cm (4' 10) Wt Readings from Last 3 Encounters: 05/21/19 68 kg (150 lb) 11/20/18 72.6 kg (160 lb) 05/15/18 68 kg (150 lb) Temp Readings from Last 3 Encounters: 09/27/17 36.9 ??C (98.4 ??F) 07/13/16 36.5 ??C (97.7 ??F) (Axillary) BP Readings from Last 3 Encounters: 05/21/19 126/56 11/20/18 117/67 05/15/18 113/64 Pulse Readings from Last 3 Encounters: 05/21/19 78 11/20/18 94 05/15/18 79 There is no height or weight on file to calculate BMI. Pertinent Lab values: Lab Results Component Value Date NA 135 (A) 10/09/2019 K 3.9 10/09/2019 CL 95 (A) 10/09/2019 CO2 34 (A) 10/09/2019 BUN 7 09/04/2019 CREATININE 0.44 (L) 09/04/2019 GLUCOSE 84 09/04/2019 CALCIUM 8.6 09/04/2019 Lab Results Component Value Date ALT 23 09/04/2019 AST 11 (L) 09/04/2019 ALKPHOS 114 09/04/2019 BILITOT 0.3 09/04/2019 BILIDIR 0.09 09/04/2019 ALBUMIN 3.7 09/04/2019 PROT 7.2 09/04/2019 Lab Results Component Value Date WBC 12.63 (H) 12/07/2018 HGB 12.9 12/07/2018 HCT 39.5 12/07/2018 MCV 90.6 12/07/2018 PLATELET 203 12/07/2018 No results found for: HA1C Immunization History Administered Date(s) Administered ??? Influenza PF, Split 06/22/2015 ??? Influenza Vaccine PF, Quadrivalent 05/21/2019 Assessment and Recommendations: Patient Counseling Patient informed of specialty services: Yes Patient accepted offer to senior counsel commercial: adherence/missed doses, doses and administration, pharmacy contact information, cost of medications/cost implications, lab monitoring/follow up, possible adverse side effects and management, therapeutic rationale, safe handling, storage, and disposal, possible drug/Rx drug interactions Medication Management Summary Topics discussed: reviewed medication changes since last visit, medication safety precautions education provided, safe handling, storage, and disposal discussed, possible adverse effects and management discussed, lab monitoring and follow-up discussed, cost of medications and cost implications discussed, adherence and missed doses discussed, monitoring medication discussed, recommendations to doctor discussed, reminder to refill or grain picker medication discussed, self-monitoring discussed, timing of medications discussed, lifestyle modification education, referral needs discussed Number of adverse drug events identified: 0 Time spent: 16-30 min Treatment Outcomes 10/20/2022 0924 Disease progression: Stable Patient Overall Status: Stable Reviewed in detail with patient: Dose appropriateness based on recommended standard dosing Current medication list including OTC medications Medication and disease problems Allergies Comorbid conditions/ Problem List Past adverse events if any Special needs of the patient including physical and cognitive limitations Goals of therapy and management strategies Warnings, precautions, and contraindications Side effects Drug-drug and drug-food interactions Administration instructions including dose, frequency and method Handling, storage, and disposal Verifying expiration dates on products before use Rotating medication inventory to use oldest product first Relevant lab data Treatments impact on disease Dose appropriateness based on recommended standard dosing schedule, including any variations from FDA approved dosing Patient verbalizes understanding and is able to read-back instructions on self-administration/injection, proper storage, drug stability, importance of adherence and management strategies, side effect avoidance and mitigation strategies, and interruptions in therapy: Yes Patient is aware a licensed pharmacist is available 24 hours a day, 7 days a week to discuss medication-related questions or concerns: Yes Patient verbalizes understanding of the common side effect profile of their medication. The patient is able to call 911 or seek urgent care if signs/symptoms of allergy or harmful adverse reactions occur: Yes Additional care/services needed: No Additional equipment/supplies required: No Patient satisfied with care/services provided: Yes Specialty Assessment: Physical and Cognitive Assessment: Functional limitations identified: No Cognitive limitations identified: No Concern regarding orientation/memory: No Concern with reasoning/judgement: No Is patient a fall risk: No Social Assessment: Does patient have a primary healthcare network pricing consultant: No Does patient have an emergency contact on file: Yes Does patient need referral to renal social worker: No Does patient need referral to advocacy group: No Home Health Assessment: Is the patient in a safe home environment?: Yes Is the patient able to store their medication as directed?: Yes Does the patient have a support network at home?: Yes Reviewed potential home safety hazards with patient: Yes Economic Assessment: Patient is agreeable to medication copay: Yes Actual Copay: $: 0 Days Supply: 30 Welcome Packet and Rights and Responsibilities: Patient provided welcome packet/rights and responsibilities: Yes Date Confirmed: 01/29/19 Confirmation: Verbal Specialty Med Adherence Patient Demonstrates Understanding of Importance of Adherence: Yes Educational Information or Adherence Tools Provided: Yes Patient Reported X Missed Doses in the Last Month: 0 Provider-Estimated Medication Adherence Level: 90-100% Adherence Tools Used: directed education Therapy Assessment: Current Medication Dosing/Route/Frequency: Epidiolex 100mg/ml 4.3ml po BID Patient-Reported Side Effects: no Appropriate Therapy: Yes Effective: yes Patient-Reported Side Effects: no Treatment Outcome: Therapy continued Patient Goals: Patient's specific desired goal: Reduce seizures Measured by: number of seizres Time-frame to meet goal: 6 months Is the patient on track to achieve goals of therapy? Yes If no, what are the barriers and action plan to reach the goal: n/a On a scale of 1-10 the patient rates their quality of life: 04/16 Care Plan and Interventions: Care Plan Reviewed and Approved by both Pharmacist and Patient: Yes Did Care Plan Change? No If yes: Change to plans of care based on: Patient's request: no Condition: no Response to therapy: no Provider request: no Follow-up needed: No Interventions (if applicable): no Patient experienced change in condition that affects treatment: no Patient Satisfied with Therapy: yes - seizure free for 90 days! Pharmacist follow-up needed: Yes Follow-Up Visit Scheduled: yes - 03/07/23 Delivery Method: Delivery Patient understands no changes to current drug regimen were made at the appointment and [facility] (summary located at top of note) for provider review and follow up. Bj Heck RPH 10/20/22 9:24 AM documented in this encounter Plan of Treatment Upcoming Encounters Date Type Department Care Team (Late st Contact Info) Description 08/06/2024 11:00 AM EST [place] [address] Sarah Serra APRN [facility] [place] [address] documented as of this encounter Goals Goal Patient Goal Type Associated Problems Recent Progress Patient-Stated? Author [facility] Medication Compliance and Understanding Patient Facing Action Plan On track( 024 12:05 PM EDT) No Arnel Benitez [facility] Note: Patient's specific desired goal: reduce number of seizures, with secondary goal of being able to taper some of the other AEDs being used Measured by: seizure record, side effects exhibited Time-frame to meet goal: 3-6 months documented as of this encounter Visit Diagnoses Not on filedocumented in this encounter Care Teams Boring Mill Set Up Operator Relationship Specialty Start Date End Date Luis Manuel Blanca MD [address] [place] [address] PCP - General Family Medicine 06/24/16 documented as of this encounter
--- OUTSIDE RECORDS SUMMARY | 2024-06-28 21:58 | XMS_ITS | Encounter Summary ---
[place] [address] Care Team Providers Care Fpga Engineer Name Role Phone Luis Manuel Blanca MD Primary Care Provider [phone] Reason for Visit * Reason Comments Medication Refill Encounter Details Date Type Department Care Team (Late st Contact Info) Description 04/24/2023 [place] [address] Sarah Serra APRN [facility] [place] [address] Social History Tobacco Use Types Packs/Day Years [...] Telephone Encounter - Tiff Gramajo RN - 04/25/2023 11:33 AM EDT Medication request refused x 3. Previous request completed on 04/11/23 refills available. Verified with pharmacy provider. documented in this encounter Plan of Treatment Upcoming Encounters Date Type Department Care Team (Late st Contact Info) Description 08/06/2024 11:00 AM EST [place] [address] Sarah Serra APRN [facility] [place] [address] documented as of this encounter Goals Goal Patient Goal Type Associated Problems Recent Progress Patient-Stated? Author [facility] Medication Compliance and Understanding Patient Facing Action Plan On track( 024 12:05 PM EDT) Arnel Hurd, [facility] Note: Patient's specific desired goal: reduce number of seizures, with secondary goal of being able to taper some of the other AEDs being used Measured by: seizure record, side effects exhibited Time-frame to meet goal: 3-6 months documented as of this encounter Visit Diagnoses Not on filedocumented in this encounter Care Teams Fpga Engineer Relationship Specialty Start Date End Date Luis Manuel Blanca MD [address] [place] [address] PCP - General Family Medicine 06/24/16 documented as of this encounter
--- OUTSIDE RECORDS SUMMARY | 2024-06-28 21:58 | XMS_ITS | Encounter Summary ---
Author Organization [facility] [place] [address] Care Team Providers Care Ground Services Instructor Name Role Phone Luis Manuel Blanca MD Primary Care Provider [phone] Encounter Details Date Type Department Care Team (Latest Contact Info) Description 11/30/2023 10:00 AM EDT TH Visit (TeleHealth) [place] [address] [address] Serra [address] 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; RIA (obstructive sleep apnea); Behavioral change; Insomnia, unspecified type Social History Tobacco Use Types Packs/Day Years Used Date Smoking Tobacco: Never Smokeless Tobacco: Never Alcohol Use Standard Drinks/Week Comments No 0 (1 standard drink = 0.6 oz pur e alcohol) Sex and Gender Information Value Date Recorded Sex Assigned at Not on file Gender Identity Not on file Sexual Orientation Not on file documented as of this encounter Progress Notes * Sarah Serra APRN - 11/30/2023 10:00 AM EDT Subjective: [facility]PILEPS[facility] TELEHEALTH FOLLOW UP NOTE Patient Active Problem List Diagnosis Grant-Gastaut syndrome CAP (community acquired pneumonia) Epilepsy with status epilepticus Seizure Status epilepticus Sleep apnea Mental retardation I saw Cinthya Alejandrabrianna today for a scheduled follow-up evaluation. CC: Epilepsy HPI: Onset: 6 months Frequency: rare now Semiology: #1: Arms and legs jerk, face twitches, eyes roll up, bites tongue, deep breathing, last for about aminute. #2: Eyes flutter with chewing motion, often with jerking #3: One arm jerking alone Triggers:Excitement, cold, sometimes unprovoked Current Outpatient Medications: pantoprazole EC (Protonix) [address] tablet, [...] at night., Disp: 224 tablet, Rfl: 0 Epidiolex 100 mg/mL Solution, TAKE 4.3 MLS BY MOUTH TWO TIMES A DAY, Disp: 258 mL, Rfl: 5 budesonide (Uceris) [address], ER tablet, , Disp: , Rfl: diphenoxylate-atropine (Lomotil) 2.5-0.025 mg tablet, , Disp: , Rfl: diazePAM (Valtoco) 10 mg/spray (0.1 mL) [place], Non-Aerosol, 10 mg by Nasal route as needed (seizureclusters (call if ineffective) Max dose 10mg daily unless instucted otherwise by office.)., Disp: 2each, Rfl: 3 BanzeL 400 mg tablet, TAKE 3 TABLETS BY MOUTH EVERY MORNING TAKE 2 TABLETS AT NOON AND TAKE 3 TABLETS AT BEDTIME, Disp: 224 tablet, Rfl: 11 cholecalciferol, Vitamin D3, (Vitamin D) 25 mcg (1,000 unit) Capsule, Take 1 capsule by mouth 2 times daily., Disp: 60 capsule, Rfl: 11 LORazepam (Ativan) 1 mg tablet, Take 1-2 tablets at onset of seizure symptoms, if ineffective after30 minutes may repeat dose. If still not effective please call neurologist biodiesel production technician. Max 4mg daily. Take 0.5-1mg prior to seizure triggering activity., Disp: 10 tablet, Rfl: 0 sertraline (Zoloft) 100 mg tablet, TAKE ONE [...] mg by mouth nightly., Disp: , Rfl: melatonin 3 mg Tablet, Take 6 mg by mouth nightly., Disp: , Rfl: [...] month: 0 Were seizures disabling? No Patient was seen for a telemedicine visit, understands that this visit may be billed, similar to a clinic office visit Pt presents with caregiver, Crescencio. She is doing very well she has not had any seizures since we lowered her Keppra. Were quite nervousabout this but they are very happy with the results. She is sleeping much better although not as well as she did last year. Sometimes she will only keep her CPAP on for like 6 hours but still this susie marked improvement from when I saw her last. Her mood is also much better, she is back to her oldself. Additionally she looks better per my observation today as well as other people's report. They wonder if it is possible to go up on her melatonin a little bit she has been taking 6 mg nightly for a very long time. Sometimes she does not seem to need it at all while other nights they feel like she could need more. They will need the prescription rewritten if we would like her to take it this way. I think part of the reason why she may have some trouble sleeping is that she tends to have some restless nests at night. They looked up the side effects of one of her GI medications and it looks like this can be caused by the Sheila till. They will bring this up with their GI next time they see them. At last visit VNS battery was between 11 and 25%, however it did not have an IPI indicator on. Theyare agreeable to coming back in person in about 3 months for another VNS check as well as a overallcheck-in. Social History: Social History Socioeconomic History Marital status: Single Spouse name: Not on file Number of children: Not on file Years of education: Not on file Highest education level: Not on file Occupational History Not on file Tobacco Use Smoking status: Never Smokeless tobacco: Never Vaping Use Vaping Use: Never used Substance and Sexual Activity Alcohol use: No [...] on file Social Factors: QEPILEPSY SOCIAL FACTORS 11/30/23 Employment status: No Currently driving: No Considering No Past Medical History: Diagnosis Date Hyperlipidemia MR (mental retardation) RIA (obstructive sleep apnea) Seizures Current Outpatient Medications on File Prior to Visit Medication Sig Dispense Refill pantoprazole EC (Protonix) [address] tablet [...] 3 tabs at night. 224 tablet 0 Epidiolex 100 mg/mL Solution TAKE 4.3 MLS BY MOUTH TWO TIMES A DAY 258 mL 5 budesonide (Uceris) [address], ER tablet diphenoxylate-atropine (Lomotil) 2.5-0.025 mg tablet diazePAM (Valtoco) 10 mg/spray (0.1 mL) [place], Non-Aerosol 10 mg by Nasal route as needed (seizure clusters (call if ineffective) Max dose 10mg daily unless instucted otherwise by office.). 2 each 3 BanzeL 400 mg tablet TAKE 3 TABLETS BY MOUTH EVERY MORNING TAKE 2 TABLETS AT NOON AND TAKE 3 TABLETS AT BEDTIME 224 tablet 11 cholecalciferol, Vitamin D3, (Vitamin D) 25 mcg (1,000 unit) Capsule Take 1 capsule by mouth 2 times daily. 60 capsule 11 LORazepam (Ativan) 1 mg tablet Take 1-2 tablets at onset of seizure symptoms, if ineffective after 30 minutes may repeat dose. If still not effective please call neurologist biodiesel production technician. Max 4mg daily. Take 0.5-1mg prior to seizure triggering activity. 10 tablet 0 sertraline (Zoloft) 100 mg tablet TAKE ONE [...] Tablet Take 150 mg by mouth nightly. melatonin 3 mg Tablet Take 6 mg by mouth nightly. loratadine (CLARITIN) 10 [...] Exam: Patient alert and awake, she is looking much more like herself, she is back to her normal weight and her skin is plumper and does not look as dry today. She is excited to see examiner and tell her about what she is interested in at the moment. Procedure: VNS not interrogated today, prior settings [...] IPI indicator Assessment and Plan: - Epilepsy: doing well, no changes at thist time. -VNS battery 11-25%, while no IPI indicator on at this time it is possible it is on the verge of needing replacement. We will see her back soon for another VNS check. - Behavioral changes: Resolved on decreased Keppra. No changes today! - RIA: CPAP nightly, updated melatonin script to give between 6-9mg qhs prn. - Screen for medication toxicity: labs at next visit - The patient is currently not a [...] Caregiver verbalizes understanding and agrees with plan. - Paper script for valtoco provided. TIME-BASED BILLING STATEMENT On the day of this encounter, I the medical provider spent a total of at least 30 minutes providingthis patient's care. This includes time spent [id number] with the patient performing independent evaluation, examination, education and counseling. It also includes non [id number] time preparing to see the patient, reviewing the charts, reviewing and interpreting labs/ imaging studies, coordinating care with other healthcare providers, and documentation. It was a pleasure speaking with them today . Sarah Serra APRN [facility] Epilepsy Program Department of Neurology This note was created using voice recognition software. It was reviewed for major content, however there may be some small discrepancies due to the limitations of the software program. There are no Patient Instructions on file for this visit. documented in this encounter Plan of Treatment Upcoming Encounters Date Type Department Care Team (Late st Contact Info) Description 08/06/2024 11:00 AM EST Office [place] [address] [address]N 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
--- OUTSIDE RECORDS SUMMARY | 2024-06-28 21:58 | XMS_ITS | Encounter Summary ---
[place] [address] Care Team Providers Care Used Car Manager Name Role Phone Luis Manuel Blanca MD Primary Care Provider [phone] Encounter Details Date Type Department Care Team (Late st Contact Info) Description 01/19/2024 Telephone [place] [id number] Rola Nava RN Social History Tobacco Use Types Packs/Day Years [...] encounter Miscellaneous Notes * Telephone Encounter - Kalina Freeman RN - 01/22/2024 1:48 PM EDT Spoke to Crescencio. Let her know that Lizzie Solares who is covering for [place] is not in the office until Monday. She will reach out when she returns. No additional questions at this time. * Telephone Encounter - Rola Nava RN - 01/19/2024 4:19 PM EDT Copied from [facility] #[id number]. Topic: Specialty Dept CRMs - Medication Issues >> Jan 19, 2024 3:16 PM Gali Giles wrote: Medication Issues Specialist Sarah Serra Relationship (if other than patient-full name): Crescencio- senior software quality analyst Reason for call: Medication Issue (if symptom based used Triage Subtopic) Message/information for the nurse: Patients senior software quality analyst Crescencio calling, she states the patients guardian was called and she thinks there may have been a miscommunication. She states the guardian was advised to not give Ativan as a sleep medication as its only for seizure use. She states the patients PCP had been the one prescribing the medication for sleep to see if it would help. She states the guardian noted that it seemed like the office was upset with the circumstances and annoyed with the patient taking this medication for sleep. Crescencio is requesting a call directly as the patients guardian does not typically handle medications and she would like everything cleared up. Please call Crescencio toadvise. Name of Medication: LORazepam (Ativan) 1 mg tablet [[id number]] Issue with the medication: unsure of usage for sleep aid Additional note, 01/19/24 earlier in the day, regarding conversation PATT Oconnell had w guardian, Fifi Sumner Spoke with guardian Fifi Sumner re Ativan recommended by PCP for insomnia as unable to reach caregiver this morning. Unfortunately pt's caregivers have been using the Ativan prescribed by [facility] neurology for insomnia, that is meant only for breakthrough seizures. Informed guardian that Ativan recommended by PCP for insomnia, needs to be prescribed by the PCP, and the Ativan prescribed by [facility] neurology can only be used for seizures. This should be discussed by caregivers with neurology provider Annemarie Serra NP (Lizzie Solares NP covering for Annemarie Serra aware of Ativan issue). Fifi Sumner (guardian) will discuss above with both caregivers. Fifi understands and agrees with this plan. documented in this encounter Plan of Treatment Upcoming Encounters Date Type Department Care Team (Late st Contact Info) Description 08/06/2024 11:00 AM EST Office [place] [address] Sarah Serra APRN [facility] [place] [address] documented as of this encounter Goals Goal Patient Goal Type Associated Problems Recent Progress Patient-Stated? Author [facility] Medication Compliance and Understanding Patient Facing Action Plan On track( 024 12:05 PM EDT) No Arnel Benitez, [facility] Note: Patient's specific desired goal: reduce number of seizures, with secondary goal of being able to taper some of the other AEDs being used Measured by: seizure record, side effects exhibited Time-frame to meet goal: 3-6 months documented as of this encounter Visit Diagnoses Not on filedocumented in this encounter Care Teams Used Car Manager Relationship Specialty Start Date End Date Luis Manuel Blanca MD [address] [place] [address] PCP - General Family Medicine 06/24/16 documented as of this encounter
--- OUTSIDE RECORDS SUMMARY | 2024-06-28 21:58 | XMS_ITS | Encounter Summary ---
[place] [address] Care Team Providers Care Test Technician Name Role Phone Luis Manuel Blanca MD Primary Care Provider [phone] Reason for Visit * Reason Onset Date Comments Prior Authorization 09/22/2023 BanzeL 400 m g tablet Encounter Details Date Type Department Care Team (Late st Contact Info) Description 09/22/2023 [place] [phone] Analilia Carrillo CMA Prior Authorization (BanzeL 400 mg tablet) Social History Tobacco Use Types Packs/Day Years [...] encounter Miscellaneous Notes * Telephone Encounter - Alondra Gregory - 09/26/2023 3:55 PM EST RELEASE FORM REC'D AND SENT TO CHART TO BE SCANNED. FORM FILLED OUT COMPLETELY (LETTER TAB) AND SENT TO PA TEAM TO SEND TO INSURANCE. APPEAL IS ALREADY IN PROCESS PER DAVIS. * Telephone Encounter - Latha Walton - 09/25/2023 9:51 AM EST Patient's caregiver, Crescencio is calling to check on the status of the PA, please call to discuss at [phone]. Patient will be out of medication by tomorrow , please call today to discuss. * Telephone Encounter - Analilia Carrillo CMA - 09/22/2023 8:01 AM EST Summary: PA denial Images from the original note were not included. * Telephone Encounter - Analilia Carrillo CMA - 09/22/2023 7:52 AM EST Summary: PA PA Submitted Submitted Date: Date Submitted: 09/22/2023 Medication Prior Authorization Patient: Cinthya Brown Patient : 1960 Insurance Company: [employer] Medicare Part D Sent via: [employer] 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 Author [facility] Medication Compliance and Understanding Patient Facing Action Plan On track( 024 12:05 PM EDT) No Arnel Benitez, [facility] Note: Patient's specific desired goal: reduce number of seizures, with secondary goal of being able to taper some of the other AEDs being used Measured by: seizure record, side effects exhibited Time-frame to meet goal: 3-6 months documented as of this encounter Visit Diagnoses Not on filedocumented in this encounter Care Teams Test Technician Relationship Specialty Start Date End Date Luis Manuel Blanca MD [address] [place] [address] PCP - General Family Medicine 06/24/16 documented as of this encounter
--- OUTSIDE RECORDS SUMMARY | 2024-06-28 21:58 | XMS_ITS | Encounter Summary ---
[place] [address] Care Team Providers Care Pig Farm Manager Name Role Phone Luis Manuel Blanca MD Primary Care Provider [phone] Encounter Details Date Type Department Care Team (Late st Contact Info) Description 02/01/2023 Specialty [place] [address] John Gil, [facility] Social History Tobacco Use Types Packs/Day Years [...] this encounter Progress Notes * John Gil - 02/01/2023 9:41 AM EDT Clinical Management Plan: Refill Specialty Pharmacy Consultation; John Gil Comprehensive Medication Management (CMM) Cinthya Brown Ms. Cinthya Brown is a 62 y.o. (1960) female who was contacted in regard to a specialty medication refill reminder. Contact made with caregiver. Caregiver name: Crescencio Sumner regarding Epidiolex. A review of the medication [...] And Vomiting Medication Reconciliation Discrepancies (compared to [facility] med list) No Specialty Pharmacy Refill Questionnaire More data exists 02/01/2023 Refill Questionnaire What is the name of the specialty medication you are refilling? Epidiolex 100 mg/mL Soln Are you taking any new medications? No Any new medical condition? No Any new allergies? No Any new side effects that are bothersome? No What date will you need this fill by? 02/08/2023 Adherence: Any missed doses? No Patient understands no changes to current drug regimen were made. John Gil 02/01/23 9:44 AM documented in this encounter Plan of Treatment Upcoming Encounters Date Type Department Care Team (Late st Contact Info) Description 08/06/2024 11:00 AM EST [place] [address] Sarah Serra APRN [facility] [place] [address] documented as of this encounter Goals Goal Patient Goal Type Associated Problems Recent Progress Patient-Stated? Author [facility] Medication Compliance and Understanding Patient Facing Action Plan On track( 024 12:05 PM EDT) No Arnel Benitez, [facility] Note: Patient's specific desired goal: reduce number of seizures, with secondary goal of being able to taper some of the other AEDs being used Measured by: seizure record, side effects exhibited Time-frame to meet goal: 3-6 months documented as of this encounter Visit Diagnoses Not on filedocumented in this encounter Care Teams Pig Farm Manager Relationship Specialty Start Date End Date Luis Manuel Blanca MD [address] [place] [address] [address] [place] [address] PCP - General Family Medicine 06/24/16 documented as of this encounter
--- OUTSIDE RECORDS SUMMARY | 2024-06-28 21:58 | XMS_ITS | Encounter Summary ---
[place] [address] Care Team Providers Care Bulk Pallet Builder Name Role Phone Luis Manuel Blanca MD Primary Care Provider [phone] Reason for Visit * Reason Comments Specialty Refill Management Encounter Details Date Type Department Care Team (Late st Contact Info) Description 11/17/2022 Specialty [place] [phone] Evangelina Ortega [facility] Social History Tobacco Use Types Packs/Day Years Used Date Smoking Tobacco: Never Smokeless Tobacco: Never Alcohol Use Standard Drinks/Week Comments No 0 (1 standard drink = 0.6 oz pur e alcohol) Sex and Gender Information Value Date Recorded Sex Assigned at Not on file Gender Identity Not on file Sexual Orientation Not on file documented as of this encounter Progress Notes * Evangelina Marquez [facility] - 11/17/2022 9:34 AM EDT Clinical Management Plan: Refill Specialty Pharmacy Consultation; Evangelina Marquez [facility] Comprehensive Medication Management (CMM) Cinthya Brown Ms. Cinthya Brown is a 62 y.o. (1960) female who was contacted in regard to a specialty medication refill reminder. Contact made with caregiver. Caregiver name: Crescencio Arellano regarding Epiodiolex. A review of the medication therapy was [...] Rash ??? Risedronate Sodium Nausea And Vomiting Medication Reconciliation Discrepancies (compared to [facility] med list) No Specialty Pharmacy Refill Questionnaire 11/17/2022 Refill Questionnaire What is the name of the specialty medication you are refilling? Epidiolex Are you taking any new medications? No Any new medical condition? No Any new allergies? No Any new side effects that are bothersome? No Adherence: Any missed doses? No Patient understands no changes to current drug regimen were made. Evangelina Ortega [facility] 11/17/22 9:35 AM documented in this encounter Plan of Treatment Upcoming Encounters Date Type Department Care Team (Late st Contact Info) Description 08/06/2024 11:00 AM EST [place] [address] Sarah Serra [facility] [place] [address] documented as of this encounter Goals Goal Patient Goal Type Associated Problems Recent Progress Patient-Stated? Author [facility] Medication Compliance and Understanding Patient Facing Action Plan On track( 024 12:05 PM EDT) No Arnel Benitez, [facility] Note: Patient's specific desired goal: reduce number of seizures, with secondary goal of being able to taper some of the other AEDs being used Measured by: seizure record, side effects exhibited Time-frame to meet goal: 3-6 months documented as of this encounter Visit Diagnoses Not on filedocumented in this encounter Care Teams Bulk Pallet Builder Relationship Specialty Start Date End Date Luis Manuel Blanca MD [address] [place] [address] [address] [place] [address] PCP - General Family Medicine 06/24/16 documented as of this encounter
--- OUTSIDE RECORDS SUMMARY | 2024-06-28 21:58 | XMS_ITS | Encounter Summary ---
[place] [address] Care Team Providers Care Supervisor Salvage Name Role Phone Luis Manuel Blanca MD Primary Care Provider [phone] [phone] Reason for Visit * Reason Comments Specialty Refill Management Epidiolex 10 0mg/mL Encounter Details Date Type Department Care Team (Late st Contact Info) Description 02/27/2023 Specialty [place] [phone] Jia Greco, [facility] Social History Tobacco Use Types Packs/Day Years [...] this encounter Progress Notes * Jia Greco - 02/27/2023 10:31 AM EDT Clinical Management Plan: Refill Specialty Pharmacy Consultation; Jia Greco Comprehensive Medication Management (CMM) Cinthya Ed Alejandrabrianna Ms. Cinthya Brwon is a 62 y.o. (1960) female who was contacted in regard to a specialty medication refill reminder. Contact made with caregiver. Caregiver name: Lulu regarding Epidiolex. A review of the medication [...] And Vomiting Medication Reconciliation Discrepancies (compared to [facility] med list) No Specialty Pharmacy Refill Questionnaire More data exists 02/27/2023 Refill Questionnaire What is the name of the specialty medication you are refilling? Epidiolex 100mg/mL Are you taking any new medications? No Any new medical condition? No Any new allergies? No Any new side effects that are bothersome? No What date will you need this fill by? 03/08/2023 Adherence: Any missed doses? No Patient understands no changes to current drug regimen were made. Jia Greco 02/27/23 10:32 AM documented in this encounter Plan of Treatment Upcoming Encounters Date Type Department Care Team (Late st Contact Info) Description 08/06/2024 11:00 AM EST [place] [address] [facility] [place] [address] documented as of this encounter Goals Goal Patient Goal Type Associated Problems Recent Progress Patient-Stated? Author [facility] Medication Compliance and Understanding Patient Facing Action Plan On track( 024 12:05 PM EDT) No Arnel Benitez, [facility] Note: Patient's specific desired goal: reduce number of seizures, with secondary goal of being able to taper some of the other AEDs being used Measured by: seizure record, side effects exhibited Time-frame to meet goal: 3-6 months documented as of this encounter Visit Diagnoses Not on filedocumented in this encounter Care Teams Supervisor Salvage Relationship Specialty Start Date End Date Luis Manuel Blanca MD [address] [place] [address] [address] [place] [address] PCP - General Family Medicine 06/24/16 documented as of this encounter
--- OUTSIDE RECORDS SUMMARY | 2024-06-28 21:58 | XMS_ITS | Encounter Summary ---
[place] [address] Care Team Providers Care Turfgrass Management Professor Name Role Phone Luis Manuel Blanca MD Primary Care Provider [phone] Reason for Visit * Reason Onset Date Comments Prior Authorization 12/25/2023 diazePAM (Va ltoco) 10 mg/spray (0.1 mL) [place], Non-Aerosol Encounter Details Date Type Department Care Team (Late st Contact Info) Description 12/25/2023 [place] [address] Vanessa Magallanes LNA Prior Authorization (diazePAM (Valtoco) 10 mg/spray (0.1 mL) [place], Non-Aerosol) Social History Tobacco Use Types Packs/Day Years [...] Encounters Date Type Department Care Team (Late Contact Info) Description 08/06/2024 11:00 AM EST Office [place] [phone] Sarah Serra APRN [facility] [place] [address] documented as of this encounter Goals Goal Patient Goal Type Associated Problems Recent Progress Patient-Stated? Author [facility] Medication Compliance and Understanding Patient Facing Action Plan On track( 024 12:05 PM EDT) Arnel Hurd, [facility] Note: Patient's specific desired goal: reduce number of seizures, with secondary goal of being able to taper some of the other AEDs being used Measured by: seizure record, side effects exhibited Time-frame to meet goal: 3-6 months documented as of this encounter Visit Diagnoses Not on filedocumented in this encounter Care Teams Turfgrass Management Professor Relationship Specialty Start Date End Date Luis Manuel Blanca MD [address] [place] [address] PCP - General Family Medicine 06/24/16 documented as of this encounter
--- OUTSIDE RECORDS SUMMARY | 2024-06-28 21:58 | XMS_ITS | Encounter Summary ---
[place] [address] Care Team Providers Care Production Supervisor Name Role Phone Luis Manuel Blanca MD Primary Care Provider [phone] Reason for Visit * Reason Onset Date Comments Medication Refill Prior Authorization 06/26/2023 Onfi 20 mg t ablet Encounter Details Date Type Department Care Team (Late st Contact Info) Description 06/26/2023 Refill [place]rology [place] [address] Lizzie Solares APRN [facility] [place] [address] Social History Tobacco Use Types Packs/Day Years [...] encounter Miscellaneous Notes * Telephone Encounter - Vanessa Magallanes LNA - 06/30/2023 12:24 PM EST Received duplicate PA request from pharmacy in onbase. Deleted. * Telephone Encounter - Vanessa Magallanes LNA - 06/26/2023 4:46 PM EST PA Outcome: PA Approval Medication Prior Authorization for Primary Care Approved: Onfi Start Date: 08/07/2022 End Date: 06/25/2024 Case/Reference #: [id number] Letter of approval will be scanned to media once received. Additional Notes: * Telephone Encounter - Vanessa Magallanes LNA - 06/26/2023 4:26 PM EST PA Submitted Submitted Date: Date Submitted: 06/26/2023 Medication Prior Authorization Patient: Cinthya Brown Patient : 1960 Insurance Company: [employer] Electronic PA Form Sent via: [employer] Hou: [id number] Physician: Sarah Srera APRN Medication Requested: Onfi 20 mg tablet Frequency/Sig: Take 1 tablet by mouth every evening. Disp: 30 tablets Refills: 5 Currently taking: yes If yes, how long: Brand since 04/2020 Generic since 06/2016 Diagnosis for this medication: Epilepsy with status epilepticus G40.901 Prior medications trialed in this patient: Medication: cannabidioL (Epidiolex) 100 mg/mL Solution Approx Dates: 01/2019-current Outcome/Adverse Reactions: adjacent treatment Medication: DEPAKOTE 500 mg EC tablet Approx Dates: 05/2010-11/2014 Outcome/Adverse Reactions: Inadequate response Medication: levETIRAcetam (Keppra) 1,000 mg tablet Approx Dates: 03/2015-current Outcome/Adverse Reactions: adjacent treatment Additional Notes: * Telephone Encounter - Vanessa Magallanes LNA - 06/26/2023 4:26 PM EST Copied from [facility] #[id number]. Topic: Specialty Dept CRMs - Prior Auth Med >> Jun 26, 2023 4:11 PM Emiliano Christensen wrote: Prior Auth Needed Online Marketing Manager: Sarah Serra APRN Relationship (if other than patient-full name): Char with [facility] called, asked if office received the prior auth from cover my meds? Please call [phone] to discuss further. Medication, Dose, and Frequency (Copy and Paste from e-DH): Onfi 20 mg tablet Name of Prescription Carrier (if different than health coverage): [employer] Medicare Benefits or Prescription Carrier ID#: [id number] Prescription Carrier Phone #: na BIN#: na PCN#: na documented in this encounter Plan of Treatment Upcoming Encounters Date Type Department Care Team (Late st Contact Info) Description 08/06/2024 11:00 AM EST Office Visit [place] [address] Sarah Serra [address]N [facility] [place] [address] documented as of this encounter Goals Goal [...] on filedocumented in this encounter Care Teams Production Supervisor Relationship Specialty Start Date End Date Luis Manuel Blanca MD [address] [place] [address] PCP - General Family Medicine 06/24/16 documented as of this encounter
--- OUTSIDE RECORDS SUMMARY | 2024-06-28 21:58 | XMS_ITS | Encounter Summary ---
[place] [address] Care Team Providers Care Implementation Advisor Name Role Phone Luis Manuel Blanca MD Primary Care Provider [phone] Encounter Details Date Type Department Care Team (Late st Contact Info) Description 06/28/2023 [place] [address] Sarah Serra, [facility] [place] [address] Social History Tobacco Use Types Packs/Day Years [...] Telephone Encounter - Tiff Gramajo RN - 06/28/2023 4:04 PM EST Copied from CRM #[id number]. Topic: Specialty Dept CRMs - Generic Call >> Jun 28, 2023 2:54 PM Jewell Ruiz wrote: Specialist: Maryse Relationship (if other than patient-full name): Lulu Arellano-Organizational Development Consultant Reason for Call: Ava is calling to reschedule patients appointment, appointment rescheduled to 10/02/22. She wanted to confirm that this appointment isnt too far out for the patients battery check. Please call lulu back to confirm that the appointment is appropriate documented in this encounter Plan of Treatment Upcoming Encounters Date Type Department Care Team (Late st Contact Info) Description 08/06/2024 11:00 AM EST [place] [address] Sarah Serra APRN [facility] [place] [address] documented as of this encounter Goals Goal Patient Goal Type Associated Problems Recent Progress Patient-Stated? Author [facility] Medication Compliance and Understanding Patient Facing Action Plan On track( 024 12:05 PM EDT) No Arnel Benitez, [facility] Note: Patient's specific desired goal: reduce number of seizures, with secondary goal of being able to taper some of the other AEDs being used Measured by: seizure record, side effects exhibited Time-frame to meet goal: 3-6 months documented as of this encounter Visit Diagnoses Not on filedocumented in this encounter Care Teams Implementation Advisor Relationship Specialty Start Date End Date Luis Manuel Blanca MD [address] [place] [address] PCP - General Family Medicine 06/24/16 documented as of this encounter
--- OUTSIDE RECORDS SUMMARY | 2024-06-28 21:58 | XMS_ITS | Encounter Summary ---
[place] [address] Care Team Providers Care Coating Line Worker Name Role Phone Luis Manuel Blanca MD Primary Care Provider [phone] [phone] Encounter Details Date Type Department Care Team (Latest Contact Info) Description 12/26/2023 Specialty [place] [address] John Gil CPHT Refill Coordination - 28 day recurrence for Seizure Disorder Social History Tobacco Use [...] Progress Notes * John Gil CPHT - 12/26/2023 12:34 PM EDT Clinical Management Plan: Refill Specialty [...] And Vomiting Medication Reconciliation Discrepancies (compared to [facility] med list) No Review Flowsheet 12/26/2023 SPRX REFILL QUESTIONS What is the name of the specialty medication you are refilling? Epidiolex Are you still taking this medication? Yes Are there any changes to how you are taking this medication? No Any new side effects that are bothersome? No Are you taking any new medications? No Any new medical conditions? No Any new allergies? No Would you like a pharmacist to reach out to you to answer any questions? No Any missed doses since your last fill? 0 What date will you need this fill by? 12/29/2023 On a scale of 1 - 10 how satisfied are you with the pharmacy's services? (1 being poor, 10 being excellent) 10 Will you be picking up your prescription at the pharmacy? No Will we be mailing this prescription to you? Yes If yes, we will ship to the address and bill the card we have on file with your shipping agreement.Please call the pharmacy toll free at [phone] to update this agreement if there have been any changes. Yes Details Adherence: Any missed doses? No Patient understands no changes to current drug regimen were made. John Gil CPHT 12/26/23 12:37 PM documented in this encounter Plan of Treatment Upcoming Encounters Date Type Department Care Team (Late st Contact Info) Description 08/06/2024 11:00 AM EST [place] [address] Sarah Serra APRN [facility] [place] [address] documented as of this encounter Goals Goal Patient Goal Type Associated Problems Recent Progress Patient-Stated? Author Home Medication Compliance and Understanding Patient Facing Action Plan On track( 024 12:05 PM EDT) No Arnel Benitez, [facility] Note: Patient's specific desired goal: reduce number of seizures, with secondary goal of being able to taper some of the other AEDs being used Measured by: seizure record, side effects exhibited Time-frame to meet goal: 3-6 months documented as of this encounter Visit Diagnoses Not on filedocumented in this encounter Care Teams Coating Line Worker Relationship Specialty Start Date End Date Luis Manuel Blanca MD [address] [place] [address] PCP - General Family Medicine 06/24/16 documented as of this encounter
--- OUTSIDE RECORDS SUMMARY | 2024-06-28 21:58 | XMS_ITS | Encounter Summary ---
[place] [address] Care Team Providers Care Academic Support Director Name Role Phone Luis Manuel Blanca MD Primary Care Provider [phone] Reason for Visit * Reason Onset Date Comments Reminder Appointment 11/22/2023 Encounter Details Date Type Department Care Team (Late st Contact Info) Description 11/22/2023 Telephone [place] [phone] Sarah Serra APRN [facility] [place] [address] Reminder Appointment Social History Tobacco Use Types Packs/Day Years [...] encounter Miscellaneous Notes * Telephone Encounter - Loretta Sutherland CMA - 11/22/2023 1:42 PM EDT Spoke with patient and confirmed all medications and allergies including reconciliation of outside medications. documented in this encounter Plan of Treatment Upcoming Encounters Date Type Department Care Team (Late st Contact Info) Description 08/06/2024 11:00 AM EST Office [place] [address] Sarah Serra APRN [facility] [place] [address] documented as of this encounter Goals Goal Patient Goal Type Associated Problems Recent Progress Patient-Stated? Author [facility] Medication Compliance and Understanding Patient Facing Action Plan On track( 024 12:05 PM EDT) No Arnel Benitez, [facility] Note: Patient's specific desired goal: reduce number of seizures, with secondary goal of being able to taper some of the other AEDs being used Measured by: seizure record, side effects exhibited Time-frame to meet goal: 3-6 months documented as of this encounter Visit Diagnoses Not on filedocumented in this encounter Care Teams Academic Support Director Relationship Specialty Start Date End Date Luis Manuel Blanca MD [address] [place] [address] PCP - General Family Medicine 06/24/16 documented as of this encounter
--- OUTSIDE RECORDS SUMMARY | 2024-06-28 21:58 | XMS_ITS | Encounter Summary ---
[place] [address] Care Team Providers Care Air Export Operations Agent Name Role Phone Luis Manuel Blanca MD Primary Care Provider [phone] Reason for Visit * Reason Comments Specialty Refill Management Encounter Details Date Type Department Care Team (Late st Contact Info) Description 04/28/2023 Specialty [place] [phone] Ursula Peacock CPHT Social History Tobacco Use Types Packs/Day Years Used Date Smoking Tobacco: Never Smokeless Tobacco: Never Alcohol Use Standard Drinks/Week Comments No 0 (1 standard drink = 0.6 oz pur e alcohol) Sex and Gender Information Value Date Recorded Sex Assigned at Not on file Gender Identity Not on file Sexual Orientation Not on file documented as of this encounter Progress Notes * Ursula Peacock CPHT - 04/28/2023 11:12 AM EDT Clinical Management Plan: Refill Specialty Pharmacy Consultation; Ursula Peacock CPHT Comprehensive Medication Management (CMM) Cinthya Ed Alejandrabrianna Ms. Cinthya Brown is a 62 y.o. (1960) female who was contacted in regard to a specialty medication refill reminder. Contact made with caregiver. Caregiver name: Fifi Arellano regarding Epidiolex. A review of the medication [...] Reconciliation Discrepancies (compared to [facility] med list) No Specialty Pharmacy Refill Questionnaire More data exists 04/28/2023 Refill Questionnaire What is the name of the specialty medication you are refilling? Epidiolex Are you taking any new medications? No Any new medical condition? No Any new allergies? No Any new side effects that are bothersome? No What date will you need this fill by? 05/07/2023 Adherence: Any missed doses? No Patient understands no changes to current drug regimen were made. Ursula Peacock CPHT 04/28/23 11:12 AM documented in this encounter Plan of Treatment Upcoming Encounters Date Type Department Care Team (Late st Contact Info) Description 08/06/2024 11:00 AM EST Office [place] [address] Sarah Serra APRN [facility] [place] [place] [address] documented as of this encounter Goals Goal Patient Goal Type Associated Problems Recent Progress Patient-Stated? Author [facility] Medication Compliance and Understanding Patient Facing Action Plan On track( 024 12:05 PM EDT) No Arnel Benitez, [facility] Note: Patient's specific desired goal: reduce number of seizures, with secondary goal of being able to taper some of the other AEDs being used Measured by: seizure record, side effects exhibited Time-frame to meet goal: 3-6 months documented as of this encounter Visit Diagnoses Not on filedocumented in this encounter Care Teams Air Export Operations Agent Relationship Specialty Start Date End Date Luis Manuel Blanca MD [address] [place], [place] [address] [facility] [address] [place] [address] PCP - General Family Medicine 06/24/16 documented as of this encounter
--- OUTSIDE RECORDS SUMMARY | 2024-06-28 21:58 | XMS_ITS | Encounter Summary ---
[place] [address] Care Team Providers Care Adult Basic Education Teacher Name Role Phone Luis Manuel Blanca MD Primary Care Provider [phone] Reason for Visit * Reason Comments Medication Refill Medication Management Encounter Details Date Type Department Care Team (Late st Contact Info) Description 04/03/2023 Specialty [place] [phone] Shay Harding Yadira Social History Tobacco Use Types Packs/Day Years Used Date Smoking Tobacco: Never Smokeless Tobacco: Never Alcohol Use Standard Drinks/Week Comments No 0 (1 standard drink = 0.6 oz pur e alcohol) Sex and Gender Information Value Date Recorded Sex Assigned at Not on file Gender Identity Not on file Sexual Orientation Not on file documented as of this encounter Progress Notes * Shay Harding RPH - 04/03/2023 2:28 PM EDT Clinical Management Plan: Refill Specialty Pharmacy Consultation; Shay Harding Yadira Comprehensive Medication Management (CMM) Cinthya Ed Flakotoniobrianna Ms. Cinthya Brown is a 62 y.o. (1960) female who was contacted in regard to a specialty medication refill reminder. Contact made with patient regarding epidiolex. A review of the medication therapy was [...] And Vomiting Medication Reconciliation Discrepancies (compared to [facility] med list) No Specialty Pharmacy Refill Questionnaire More data exists 04/03/2023 Refill Questionnaire What is the name of the specialty medication you are refilling? epidiolex Are you taking any new medications? No Any new medical condition? No Any new allergies? No Any new side effects that are bothersome? No What date will you need this fill by? 04/09/2023 Adherence: Any missed doses? No Patient understands no changes to current drug regimen were made. Shay Harding RPH 04/03/23 2:29 PM * Shay Harding RPH - 04/03/2023 2:28 PM EDT Specialty Pharmacy Consultation; Shay Harding RPH Comprehensive Medication Management (CMM): Specialty Consult, Opt Out Cinthya Brown Diagnosis: epilepsy Therapy Start Date: 01/2019 Contact in person or via telephone: Phone Ms. Cinthya Brown is a 62 y.o. (1960) female who was contacted in regard to specialty medication. Spoke with patient regarding epidiolex. A review of the medication therapy was performed. The medication was refilled as scheduled, and all medication related questions and concerns were addressed. The specialty pharmacy staff will follow up with the patient 5 - 7 days prior to next refill. Is the patient willing to proceed with the Clinical Assessment? No Summary and Recommendations: Today I spoke with Crescencio, the caregiver for Cinthya Brown who was due for a refill on epidiolex aswell as a routine clinical follow up consultation. The medication was refilled but Crescencio declined to participate in the full consultation. He said that there haven't been any changes in allergies, med ications, or medical conditions since the last fill. The patient also did not miss any doses or have any side effects. Crescencio had no questions or concerns at this time and we encouraged her to reach out to us with any questions or concerns, our contact information was provided. We will continue to follow up with the patient monthly for refills and biannually for consults. 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 Medications Reviewed: Yes Medications reconciled: Yes Allergies Reviewed:Yes Allergies reconciled: Yes Pharmacist follow-up needed: Yes Informed patient of specialty pharmacy services: Yes (Optional) Patient unenrolls from routine specialty pharmacy services (Y/N): (Optional) If yes, services unenrolled from: Welcome Packet and Rights and Responsibilities: Patient provided welcome packet/rights and responsibilities: Yes Date Confirmed: 01/29/19 Confirmation: Verbal -Patient is aware a licensed pharmacist is available 24 hours a day, 7 days a week to discuss medication-related questions or concerns: Yes -Patient verbalizes understanding of the common side effect profile of their medication. The patient is able to call 911 or seek urgent care if signs/symptoms of allergy or harmful adverse reactions occur: Yes Patient understands no changes to current drug regimen were made at the appointment and that the pharmacist is providing recommendations (summary located at top of note) for provider review and follow up. Shay Harding RPH 04/03/23 2:37 PM documented in this encounter Plan of Treatment Upcoming Encounters Date Type Department Care Team (Late st Contact Info) Description 08/06/2024 11:00 AM EST [place] [address] Sarah Serra APRN [facility] [place] [address] documented as of this encounter Goals Goal [...] on filedocumented in this encounter Care Teams Adult Basic Education Teacher Relationship Specialty Start Date End Date Luis Manuel Blanca MD [address] [place] [address] PCP - General Family Medicine 06/24/16 documented as of this encounter
--- OUTSIDE RECORDS SUMMARY | 2024-06-28 21:58 | XMS_ITS | Encounter Summary ---
Author Organization [facility] [place] [address] Care Team Providers Care Water/Wastewater Project Engineer Name Role Phone Luis Manuel Blanca MD Primary Care Provider [phone] [phone] Encounter Details Date Type Department Care Team (Latest Contact Info) Description 04/11/2023 Travel Social History Tobacco Use Types Packs/Day [...] 11:00 AM EST [place] [address] Sarah Serra APRN [facility] [address] documented as of this encounter Goals Goal Patient Goal Type Associated Problems Recent Progress Patient-Stated? Author [facility] Medication Compliance and Understanding Patient [...] on filedocumented in this encounter Care Teams Water/Wastewater Project Engineer Relationship Specialty Start Date End Date Luis Manuel Blanca MD [address] [place] [address] PCP - General Family Medicine 06/24/16 documented as of this encounter
--- OUTSIDE RECORDS SUMMARY | 2024-06-28 21:58 | XMS_ITS | Encounter Summary ---
Author Organization [facility] [place] [address] Care Team Providers Care Textile Conservator Name Role Phone Luis Manuel Blanca MD Primary Care Provider [phone] [phone] Reason for Visit * Reason Comments Medication Refill Encounter Details Date Type Department Care Team (Late st Contact Info) Description 12/02/2022 [place] [address] Lizzie Solares APRN [facility] [place] [address] Social History Tobacco Use Types Packs/Day Years [...] encounter Miscellaneous Notes * Telephone Encounter - Ladonna Pandey RN - 12/02/2022 3:10 PM EDT Surescript request for : multiple Last rx: Quantity: Refills: From last note: - Epilepsy: Doing great! Longest she has every gone without a seizure and mood and energy improved. They are aware of the risks of polypharmacy but do not want to make any changes at this time. Reevaluate this summer if they are willing to try decreasing something but no changes today - RIA: Readdress in the future - Screen for medication toxicity: reviewed recent labs, repeat at next in person visit. - The patient is currently not a candidate for epilepsy surgery. Last appt: 09/01/2022 Next appt: 03/07/2023 documented in this encounter Plan of Treatment Upcoming Encounters Date Type Department Care Team (Late st Contact Info) Description 08/06/2024 11:00 AM EST [place] [address] Sarah Serra APRN [facility] [place] [address] documented as of this encounter Goals Goal Patient Goal Type Associated Problems Recent Progress Patient-Stated? Author [facility] Medication Compliance and Understanding Patient Facing Action Plan On track( 024 12:05 PM EDT) No Arnel Benitez, [facility] Note: Patient's specific desired goal: reduce number of seizures, with secondary goal of being able to taper some of the other AEDs being used Measured by: seizure record, side effects exhibited Time-frame to meet goal: 3-6 months documented as of this encounter Visit Diagnoses Not on filedocumented in this encounter Care Teams Textile Conservator Relationship Specialty Start Date End Date Luis Manuel Blanca MD [address] [place] [address] [address] [facility] [place] [address] PCP - General Family Medicine 06/24/16 documented as of this encounter
--- OUTSIDE RECORDS SUMMARY | 2024-06-28 21:58 | XMS_ITS | Encounter Summary ---
[place] [address] Care Team Providers Care Fashion Artist Name Role Phone Luis Manuel Blanca MD Primary Care Provider [phone] [phone] Encounter Details Date Type Department Care Team (Late st Contact Info) Description 09/25/2023 [place] [address] Sarah Serra APRN [facility] [place] [address] Social History Tobacco Use Types Packs/Day Years [...] encounter Miscellaneous Notes * Telephone Encounter - Agnelica Real RN - 09/28/2023 11:49 AM EST Spoke to [facility]. They did order the medication and do have the 56 tab ready for slat pickler. Called and left a detailed message with Crescencio regarding this matter instructed to call the clinic with any questions. * Telephone Encounter - Naomi Gutierrez - 09/28/2023 10:42 AM EST Crescencio-caregiver called and inquiring on the status of prior auth and recommendation as the patient will be out of medication tomorrow and is concerned about seizures. Crescencio states she needs to do something today to give pharmacies time to get medication if changed. Please call to further discuss. * Telephone Encounter - Angelica Real RN - 09/26/2023 10:34 AM EST Spoke with Several pharmacies to see if medication was in stock or if they would be willing to order medication and was unable find medication in stock or able to get medication ordered for short script. Reached back out to [facility] they were able to find were they could run 2 more days throughthe old PA, so she has a extra 2 days now. That will get her until Monday. Reached out to Crescencio and notified her of this. She was wanting to know what happens if the PA does not go through, Sarah had mentioned something about a Bridge Medication she would like to get thatstarted just incase. She is now worried that they might not have the medication in stock and if it is a Monday and they have to order it she will not be able to get it until Monday, her pharmacy is closed on the weekends. * Telephone Encounter - Angelica Real RN - 09/26/2023 10:04 AM EST Spoke with Fish Technologist Crescencio, She stated she had spoke with [facility] last night and they did not have the medication in stock. She is worried about having to pay for it out of pocket but really has no other choice unless the PA goes through today. Called and spoke to [facility] and they do not have the medication in stock and are not willing to order the medication for just a week supply. Will notify provider via secure chat to see what the best plan is. Also reached out to [facility] to see if they could be of assistance for medication. Will reach out to Crescencio when something else is know regarding this matter. * Telephone Encounter - Lulu Ha - 09/26/2023 8:49 AM EST Patients caregiver Crescencio called this morning and stated that she spoke with Sarah Serra APRN last night about this medication for patient. Crescencio was calling back this morning to see if our team was able to get the prior authorization for this medication to go through yet?? Crescencio stated that Sarah Serra APRN had advised for Crescencio to reach out to the pharmacy for an out of pocket estimate for this medication. Crescencio states that she did reach out to the pharmacy who has advised that this medication will cost $1,600 out of pocket for one week worth of medication. Crescencio mentions that patient only has enough of this medication to last for today. Please call patients caregiver Crescencio to discuss and advise where things are at with getting this medication refilled for patient. Thank you. * Telephone Encounter - Yazmin Bedoya - 09/25/2023 3:05 PM EST Crescencio the caregiver was calling due to patient being out of medication tomorrow. Please advise * Telephone Encounter - Kourtney Banuelos RN - 09/25/2023 10:17 AM EST Copied from CRM #[id number]. Topic: Specialty Dept CRMs - Medication Issues >> Sep 25, 2023 9:30 AM Glenn Reyes wrote: Medication Issues Specialist Sarah Serra Relationship (if other than patient-full name): Alyce [facility] Reason for call: Medication Issue (if symptom based used Triage Subtopic) Message/information for the nurse: prior authorization denial Name of Medication: BanzeL 400 mg tablet Issue with the medication: Vidya called and stated prior authorization for medication was denied by insurance, and she would like to know if they should expect an alternative to be called in for patient. documented in this encounter Plan of Treatment Upcoming Encounters Date Type Department Care Team (Late st Contact Info) Description 08/06/2024 11:00 AM EST [place] [address] Sarah Serra APRN [facility] [place] [address] documented as of this encounter Goals Goal Patient Goal Type Associated Problems Recent Progress Patient-Stated? Author [facility] Medication Compliance and Understanding Patient Facing Action Plan On track( 024 12:05 PM EDT) Arnel Hurd, [facility] Note: Patient's specific desired goal: reduce number of seizures, with secondary goal of being able to taper some of the other AEDs being used Measured by: seizure record, side effects exhibited Time-frame to meet goal: 3-6 months documented as of this encounter Visit Diagnoses Not on filedocumented in this encounter Care Teams Fashion Artist Relationship Specialty Start Date End Date Luis Manuel Blanca MD [address] [place] [address] PCP - General Family Medicine 06/24/16 documented as of this encounter
--- OUTSIDE RECORDS SUMMARY | 2024-06-28 21:58 | XMS_ITS | Encounter Summary ---
[place] [address] Care Team Providers Care Resist Coater Developer Name Role Phone Luis Manuel Blanca MD Primary Care Provider [phone] [phone] Reason for Referral * Surgical (Routine) - Closed Specialty Diagnoses / Procedures Referred By Koby t Referred To Contact Gastroenterology Diagnoses Noninfectious gastroenteritis, unspecified type Gabriela Grande APRN [address] [place] [address] [facility] Endoscopy [address] [place] [address] Referral ID Status Reason Start Date Expiration Date V isits Requested Visits Authorized [id number] Closed Test Only PCP Updated and/or Approved 11/04/2022 11/04/2023 1 1 Encounter Details Date Type Department Care Team (Late st Contact Info) Description 11/04/2022 Transcribe Orders eDH Incoming Referrals [phone] Gabriela Grande APRN [address] [place] [address] Noninfectious gastroenteritis, unspecified type Social History Tobacco Use Types [...] 11:00 AM EST [place] [address] Sarah Serra APRN [facility] [place] [address] Scheduled Referrals Name Type Priority Associated Diagnoses Orde r Schedule REFERRAL TO COLONOSCOPY PROCEDURE Outpatient Referral Routine Noninfectious gastroenteritis, unspecified type Ordered: 11/04/2022 documented as of this encounter Goals Goal Patient Goal Type Associated Problems Recent Progress Patient-Stated? Author [facility] Medication Compliance and Understanding Patient Facing Action Plan On track( 024 12:05 PM EDT) No Arnel Benitez, [facility] Note: Patient's specific desired goal: reduce number of seizures, with secondary goal of being able to taper some of the other AEDs being used Measured by: seizure record, side effects exhibited Time-frame to meet goal: 3-6 months documented as of this encounter Visit Diagnoses Diagnosis Noninfectious gastroenteritis, unspecified type documented in this encounter Care Teams Resist Coater Developer Relationship Specialty Start Date End Date Luis Manuel Blanca MD [address] [place] [address] [address] [facility] 1 [place] [address] PCP - General Family Medicine 06/24/16 documented as of this encounter
--- OUTSIDE RECORDS SUMMARY | 2024-06-28 21:58 | XMS_ITS | Encounter Summary ---
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 Author [facility] Medication Compliance and Understanding Patient Facing Action Plan On track( 024 12:05 PM EDT) No Arnel Benitez, [facility] Note: Patient's specific desired goal: reduce number of seizures, with secondary goal of being able to taper some of the other AEDs being used Measured by: seizure record, side effects exhibited Time-frame to meet goal: 3-6 months documented as of this encounter Procedures Procedure Name Priority Date/Time Associated Diagnosis Comments TSH Routine 10/04/2023 5:32 PM EST PHENOBARBITAL LEVEL Routine 10/04/2023 3 :55 PM EST Seizure COMPREHENSIVE METABOLIC PANEL Routine 10/04/2023 3:55 PM EST Seizure CLOBAZAM LEVEL Routine 10/04/2023 3:36 PM EST Seizure LEVETIRACETAM LEVEL Routine 10/04/2023 3 :36 PM EST 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 documented in this encounter Results * TSH (10/04/2023 5:32 PM EST) Thyroid Stimulating Hormone 2.56 EXTERNAL FACILITY Comment:w/ref FT4 Blood 10/04/2023 5:32 PM EST Sarah Serra MONORAIL OPERATOR CHEMISTRY ORDERA BLES EXTERNAL FACILITY * (ABNORMAL) Comprehensive metabolic panel (non-fasting) (10/04/2023 [...] FACILITY Blood 10/04/2023 3:55 PM EST Sarah Ruiz Maryse MONORAIL OPERATOR CHEMISTRY ORDERA BL[facility] EXTERNAL FACILITY * Phenobarbital level (10/04/2023 3:55 PM EST) Phenobarbital 33.6 FITNESS SERVICES MANAGER AL FACILITY Blood 10/04/2023 3:55 PM EST Sarah Ruiz Maryse MONORAIL OPERATOR CHEMISTRY ORDERA BLES Performing Organization Address City/[facility]/ZIP Co de Phone Number EXTERNAL FACILITY * (ABNORMAL) Clobazam Level (10/04/2023 3:36 PM EST) Clobazam (DECEMBER) 221.0 EXTER NAL FACILITY Desmethylclobazam (DECEMBER) 4,320.0(H ) EXTERNAL FACILITY Blood 10/04/2023 3:36 PM EST Sarah Serra APRN LAB SEND OUT ORD ERABLES Performing Organization Address [facility] Co de Phone Number EXTERNAL FACILITY * (ABNORMAL) Levetiracetam level (10/04/2023 3:36 PM EST) Levetiracetam Lvl (DECEMBER) 50.4(H) EXTERNAL FACILITY Blood 10/04/2023 3:36 PM EST Sarah Serra MONORAIL OPERATOR LAB SEND OUT ORD ERABLES EXTERNAL FACILITY documented in this encounter Visit Diagnoses Diagnosis Seizure Other convulsions Intractable Po[place]en[place]-Gastaut syndrome without status epilepticus documented in this encounter Care Teams Entertainment Usher Relationship Specialty Start Date End Date Luis Manuel Blanca MD [address] [place] [address] PCP - General Family Medicine 06/24/16 documented as of this encounter
--- OUTSIDE RECORDS SUMMARY | 2024-06-28 21:58 | XMS_ITS | Encounter Summary ---
Author Organization [facility] [place] [address] Care Team Providers Care Customer Counter Representative Name Role Phone Luis Manuel Blanca MD Primary Care Provider [phone] [phone] Encounter Details Date Type Department Care Team (Latest Contact Info) Description 03/09/2023 3:03 PM EDT - 03/09/2023 11:59 PM EDT Hospital [place] [address] Discharge Disposition: Home Social History Tobacco Use Types Packs/Day Years Used Date Smoking Tobacco: Never Smokeless Tobacco: Never Alcohol Use Standard Drinks/Week Comments No 0 (1 standard drink = 0.6 oz pur e alcohol) Sex and Gender Information Value Date Recorded Sex Assigned at Not on file Gender Identity Not on file Sexual Orientation Not on file documented as of this encounter Medications at Time of Discharge Medication Sig Dispensed Refills Start Date End Date albuteroL (ACCUNEB) 1.25 mg/3 mL Solution for Nebulization INHALE THE CONTENTS OF ONE VIAL VIA NEBULIZER FOUR TIMES A DAY NEEDED 07/04/2022 bisacodyl EC (Dulcolax) 5 mg Tablet, Delayed Release (E.C.) 5 mg daily as needed. ondansetron (ZUPLENZ ORAL) ondansetron 4MG Tablet 1 Tab PO q8 hr PRN polyethylene glycoL (Miralax) 17 gram Powder in Packet daily as needed. loperamide (IMODIUM A-D) 2 mg Tablet Take 2 mg by mouth 4 times daily as needed for Diarrhea. Maximum 16 mg in 24 hours clotrimazole-betametha sone (LOTRISONE) 1-0.05 % Cream Apply 1 Application topically as needed. 0 01/12/2019 NYSTOP Powder Apply 1 Application topically as needed. 0 11/27/2018 acetaminophen (TYLENOL) 500 mg Tablet Take 500 [...] tablet Take 40 mg by mouth daily. Onfi 20 mg tablet TAKE 1 TABLET BY MOUTH EVERY EVENING 30 tablet 3 01/05/2023 04/11/2023 PHENobarbitaL (Luminal) 60 mg tablet TAKE 2 TABLETS BY MOUTH NIGHTLY 60 tablet 3 01/05/2023 04/11/2023 levETIRAcetam (Keppra) 1,000 mg tablet TAKE 1 TABLET BY MOUTH TWICE A DAY 60 tablet 3 01/05/2023 04/11/2023 cannabidioL (Epidiolex) 100 mg/mL Solution 4.3 ml twice daily. 258 mL 2 01/05/2023 04/03/2023 diazePAM (Valtoco) 10 mg/spray (0.1 mL) [place], Non-Aerosol 10 mg by Nasal route as needed (seizure clusters (call if ineffective) Max dose 10mg daily unless instucted otherwise by office.). 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 (please bubble pack) 84 capsule 11 03/23/2022 04/11/2023 sertraline (ZOLOFT) 100 mg Tablet TAKE ONE TABLET BY MOUTH EVERY DAY 90 tablet 3 04/14/2021 04/11/2023 LORazepam (ATIVAN) 1 mg TabletIndications:Epil epsy seizure, generalized, convulsive Take 1-2 tablets at onset of seizure symptoms, if ineffective after 30 minutes may repeat dose. If still not effective please call neurologist applications development consultant. Max 4mg daily. Take 0.5-1mg prior to seizure triggering activity. 45 tablet 5 05/21/2019 04/11/2023 cholecalciferol, Vitamin D3, (VITAMIN D) 1,000 unit Capsule Take 1 capsule by mouth 2 times daily. 60 capsule 5 11/20/2018 04/11/2023 melatonin 3 mg Tablet Take 6 mg by mouth nightly. 11/30/2023 documented as of this encounter Plan of Treatment Upcoming Encounters Date Type Department Care Team (Late st Contact Info) Description 08/06/2024 11:00 AM EST Office [place] [address] Sarah Serra PROGRAMMING INTERNSH[employer] [facility] [place] [address] documented as of this encounter Goals Goal Patient Goal Type Associated Problems Recent Progress Patient-Stated? Author [facility] Medication Compliance and Understanding Patient Facing Action Plan On track( 024 12:05 PM EDT) Arnel Hurd, [facility] Note: Patient's specific desired goal: reduce number of seizures, with secondary goal of being able to taper some of the other AEDs being used Measured by: seizure record, side effects exhibited Time-frame to meet goal: 3-6 months documented as of this encounter Procedures Procedure Name Priority Date/Time Associated Diagnosis Comments SURGICAL PATHOLOGY REPORT Routine 03/09/2023 10:01 AM EDT documented in this encounter Results * Surgical Pathology Report (03/09/2023 10:01 AM EDT) Final Diagnosis [id number] ? Location: [facility] The signing pathologist has (i) examined the relevant preparation(s) for the specimen(s) and (ii) rendered or confirmed the diagnosis(es). . ?Surgical Pathology DIAGNOSIS A - Transverse colon, polyp, biopsy: - Fragments of tubular adenoma. B - Random colon biopsies, biopsy: - ??Colonic mucosa with focal increased intraepithelial lymphocytes, see comment. Comment: Current biopsies are characterized by an inflammatory cell infiltrate in the lamina propria and focally increased intraepithelial lymphocytes, therefore still fall short of fulfilling ?? morphologic criteria for lymphocytic colitis. Clinical follow up is ??recommended. CR-PX Electronically signed by: ?Kailey LORENZO, Johann Verified: ??03/20/2023 10:50 ??Pathologist Performed at: ??-[facility] Dept. of Pathology, [place] [address] Snipper: Brady Felipe MD, FCAP, ??CLIA Certificate: [id number] SPECIMEN(S) SUBMITTED A - 1) Transverse polyp, biopsy B - 2) Random colon biopsies, biopsy Referring Identifier: ?(not provided) CARBON COPY: Luis Manuel Ferreiravan CLINICAL INFORMATION Colon polyp, history of diarrhea (chronic/watery) and; normal-appearing mucosa SPECIMEN PROCESSING A - Labeled/Fixative: Transverse polyp, formalin. Quantity/Size: Two, 0.3 and 0.5 cm. Tissue Description: Soft, pink polyps. Sections/Processin g: Entirely submitted in 1 cassettes as follows: ?A1: ??Two polyps; one in toto, one inked and bisected B - Labeled/Fixative: Random colon biopsies, formalin. Quantity/Size: Multiple, averaging 0.3 cm. Tissue Description: Soft, servin-pink tissues. Sections/Processin g: Submitted in toto ??in 2 cassettes labeled B1-B2. ??sns 03/20/2023 10:50 AM EDT [facility] GI Biopsy 03/09/2023 10:0 1 AM EDT 03/09/2023 10:01 AM EDT GI Biopsy 03/09/2023 10:0 1 AM EDT 03/09/2023 10:01 AM EDT Chris Hagen DO PATHOLOGY/CYT OLOGY ORDERABLES [facility] [place] [address] [facility] [place] [address] documented in this encounter Visit Diagnoses Not on filedocumented in this encounter Care Teams Customer Counter Representative Relationship Specialty Start Date End Date Luis Manuel Blanca MD [address] [place] [address] PCP - General Family Medicine 06/24/16 documented as of this encounter
--- OUTSIDE RECORDS SUMMARY | 2024-06-28 21:58 | XMS_ITS | Encounter Summary ---
[place] [address] Care Team Providers Care Tile Picker Name Role Phone Luis Manuel Blanca MD Primary Care Provider [phone] [phone] Encounter Details Date Type Department Care Team (Late st Contact Info) Description 08/01/2023 Telephone [place] [address] Sarah Serra APRN [facility] [place] [address] Social History Tobacco Use Types Packs/Day Years [...] encounter Miscellaneous Notes * Telephone Encounter - Charity Thayer - 08/01/2023 12:28 PM EST Copied from CRM #[id number]. Topic: Specialty Dept CRMs - Generic Call >> Apr 27, 2023 12:42 PM Mary Giles wrote: Specialist: Maryse Relationship (if other than patient-full name): Nydia from [employer] [phone] Reason for Call: Nydia states when she was going over seizure protocol with patient and home care provider she learned patient no longer has her wheel chair, she states they do not have a really effective way without it to get patient on her side or tilted forward to prevent aspiration during seizure please call to advise documented in this encounter Plan of Treatment Upcoming Encounters Date Type Department Care Team (Late st Contact Info) Description 08/06/2024 11:00 AM EST Office [place] [address] Sarah Serra APRN [facility] [place] [address] documented as of this encounter Goals Goal Patient Goal Type Associated Problems Recent Progress Patient-Stated? Author [facility] Medication Compliance and Understanding Patient [...] on filedocumented in this encounter Care Teams Tile Picker Relationship Specialty Start Date End Date Luis Manuel Blanca MD [address] [place] [address] [address] [place] [address] PCP - General Family Medicine 06/24/16 documented as of this encounter
--- OUTSIDE RECORDS SUMMARY | 2024-06-28 21:58 | XMS_ITS | Encounter Summary ---
[place] [address] Care Team Providers Care Electronics Assembler Name Role Phone Luis Manuel Blanca MD Primary Care Provider +1 [phone] Reason for Visit * Reason Onset Date Comments Medication Refill 01/04/2024 Encounter Details Date Type Department Care Team (Late st Contact Info) Description 01/04/2024 [place] [address] Sarah Serra APRN [facility] [place] [address] Social History Tobacco Use Types Packs/Day Years [...] Telephone Encounter - Tiff Gramajo RN - 01/04/2024 1:53 PM EDT Prescription Renewal Request Name: Cinthya Brown : 1960 Prescription(s) Requested: Requested Prescriptions Pending Prescriptions Disp Refills diazePAM (Valtoco) 10 mg/spray (0.1 mL) [place], Non-Aerosol 2 each 3 Si mg by Nasal route as needed (seizure clusters (call if ineffective) Max dose 10mg daily unless instucted otherwise by office.). Date of Last Encounter: 11/30/23 doing well, no changes at thist time. -VNS battery 11-25%, while no IPI indicator on at this time it is possible it is on the verge of needing replacement. We will see her back soon for another VNS check. - Behavioral changes: Resolved on decreased Keppra. No changes today! Next Encounter: 02/12/2024 Date of Last Refill: 04/11/23 Medication category requirements (labs etc): n/a Status of request: Pended Allergies Allergen Reactions Amoxicillin-Pot Clavulanate Rash Risedronate Sodium Nausea And Vomiting Tiff Gramajo RN 01/04/24 1:53 PM documented in this encounter Plan of Treatment Upcoming Encounters Date Type Department Care Team (Late st Contact Info) Description 08/06/2024 11:00 AM EST [place] [address] Sarah Serra APRN [facility] [place] [address] documented as of this encounter Goals Goal Patient Goal Type Associated Problems Recent Progress Patient-Stated? Author [facility] Medication Compliance and Understanding Patient Facing Action Plan On track( 024 12:05 PM EDT) No Arnel Benitez, [facility] Note: Patient's specific desired goal: reduce number of seizures, with secondary goal of being able to taper some of the other AEDs being used Measured by: seizure record, side effects exhibited Time-frame to meet goal: 3-6 months documented as of this encounter Visit Diagnoses Not on filedocumented in this encounter Care Teams Electronics Assembler Relationship Specialty Start Date End Date Luis Manuel Blanca MD [address] [place] [address] [address] [facility] 1 [place] [address] PCP - General Family Medicine 06/24/16 documented as of this encounter
--- OUTSIDE RECORDS SUMMARY | 2024-06-28 21:58 | XMS_ITS | Encounter Summary ---
Author Organization [facility] Address [facility] [place] [address] Care Team Providers Care Burial Vault Setter Name Role Phone Luis Manuel Blanca MD Primary Care Provider [phone] [phone] Encounter Details Date Type Department Care Team (Late st Contact Info) Description 01/19/2024 [place] [address] Kourtney Banuelos, RN [facility] [address] [place] [address] Social History Tobacco Use Types Packs/Day Years Used Date Smoking Tobacco: Never Smokeless Tobacco: Never Alcohol Use Standard Drinks/Week Comments No 0 (1 standard drink = 0.6 oz pur e alcohol) Sex and Gender Information Value Date Recorded Sex Assigned at Not on file Gender Identity Not on file Sexual Orientation Not on file documented as of this encounter Progress Notes * Kourtney Banuelos, RN - 01/19/2024 8:55 AM EDT Spoke with guardian Fifi Sumner re Ativan recommended by PCP for insomnia as unable to reach caregiver this morning. Unfortunately pt's caregivers have been using the Ativan prescribed by [facility] neurology for insomnia, that is meant only for breakthrough seizures. Informed guardian that Ativan recommended by PCP for insomnia, needs to be prescribed by the PCP, and the Ativan prescribed [facility] can only be used for seizures. This should be discussed by caregivers with neurology provider Annemarie Serra SAP TECHNICAL ARCHITECT (Lizzie Solares SAP TECHNICAL ARCHITECT covering for Annemarie Serra aware of Ativan issue). Fifi Sumner (guardian) will discuss above with both caregivers. Fifi understands and agrees with this plan. documented in this encounter Plan of Treatment Upcoming Encounters Date Type Department Care Team (Late st Contact Info) Description 08/06/2024 11:00 AM EST [place] [address] Sarah Serra APRN [facility] [place] [address] documented as of this encounter Goals Goal Patient Goal Type Associated Problems Recent Progress Patient-Stated? Author [facility] Medication Compliance and Understanding Patient Facing Action Plan On track( 024 12:05 PM EDT) No Arnel Benitez, [facility] Note: Patient's specific desired goal: reduce number of seizures, with secondary goal of being able to taper some of the other AEDs being used Measured by: seizure record, side effects exhibited Time-frame to meet goal: 3-6 months documented as of this encounter Visit Diagnoses Not on filedocumented in this encounter Care Teams Burial Vault Setter Relationship Specialty Start Date End Date Luis Manuel Blanca MD [address] [place] [address] [address] [facility] 1 [place] [address] PCP - General Family Medicine 06/24/16 documented as of this encounter
--- OUTSIDE RECORDS SUMMARY | 2024-06-28 21:58 | XMS_ITS | Encounter Summary ---
Author Organization [facility] [address] Care Team Providers Care City Driver Name Role Phone Luis Manuel Blanca MD Primary Care Provider [phone] [phone] Encounter Details Date Type Department Care Team (Latest Contact Info) Description 10/30/2023 Travel Social History Tobacco Use Types Packs/Day [...] 11:00 AM EST Office [place] [address] Sarah Serra APRN [facility] [place] [address] documented as of this encounter Goals Goal Patient Goal Type Associated Problems Recent Progress Patient-Stated? Author [facility] Medication Compliance and Understanding Patient Facing [...] on filedocumented in this encounter Care Teams City Driver Relationship Specialty Start Date End Date Luis Manuel Blanca MD [address] [place] [address] PCP - General Family Medicine 06/24/16 documented as of this encounter
--- OUTSIDE RECORDS SUMMARY | 2024-06-28 21:58 | XMS_ITS | Encounter Summary ---
[place] [address] Care Team Providers Care Precision Lens Centerer And Edger Name Role Phone Luis Manuel Blanca MD Primary Care Provider [phone] [phone] Encounter Details Date Type Department Care Team (Late st Contact Info) Description 04/28/2023 [place] [address] Sarah Serra APRN [facility] [place] [address] Social History Tobacco Use Types Packs/Day Years [...] encounter Miscellaneous Notes * Telephone Encounter - Karyna [place] RN - 04/28/2023 1:03 PM EDT Prescription Renewal Request Name: Cinthya Brown : 1960 Prescription(s) Requested: Requested Prescriptions Refused Prescriptions Disp Refills cannabidioL (Epidiolex) 100 mg/mL Solution 258 mL 11 Si.3 ml twice daily. Date of Encounter last in This Dept (If need an appointment send to secretaries to schedule): 04/11/2023, Sarah Serra, DINO Next Encounter in This Dept: 07/04/2023 Date of Last Refill (for each medication): 04/11/2023, Dispense: 258 mL, Refills: 11 Medication category requirements (labs etc): N/A Status of request: Refused Request already responded to. Allergies Allergen Reactions Amoxicillin-Pot Clavulanate Rash Risedronate Sodium Nausea And Vomiting Karyna [place] RN 04/28/23 1:14 PM documented in this encounter Plan of Treatment Upcoming Encounters Date Type Department Care Team (Late st Contact Info) Description 08/06/2024 11:00 AM EST [place] [address] Sarah Serra APRN [facility] [place] [address] documented as of this encounter Goals Goal Patient Goal Type Associated Problems Recent Progress Patient-Stated? Author Home Medication Compliance and Understanding Patient Facing Action Plan On track( 024 12:05 PM EDT) Arnel Hurd, [facility] Note: Patient's specific desired goal: reduce number of seizures, with secondary goal of being able to taper some of the other AEDs being used Measured by: seizure record, side effects exhibited Time-frame to meet goal: 3-6 months documented as of this encounter Visit Diagnoses Not on filedocumented in this encounter Care Teams Precision Lens Centerer And Edger Relationship Specialty Start Date End Date Luis Manuel Blanca MD [address] [place], [place] [address]Y [facility] 1 [place] [address] PCP - General Family Medicine 06/24/16 documented as of this encounter
--- OUTSIDE RECORDS SUMMARY | 2024-06-28 21:58 | XMS_ITS | Encounter Summary ---
Author Organization [facility] [address] Care Team Providers Care Scale Manager Name Role Phone Luis Manuel Blanca MD Primary Care Provider [phone] [phone] Reason for Visit * Reason Comments Medication Refill Encounter Details Date Type Department Care Team (Late st Contact Info) Description 11/08/2022 Ref[place] [address] Sarah Serra APRN [facility] [address] [place] [address] Social History Tobacco Use Types Packs/Day Years [...] Telephone Encounter - Ladonna Pandey RN - 11/08/2022 4:08 PM EDT Last visit 09/01/2022 Next visit 03/07/2023 documented in this encounter Plan of Treatment Upcoming Encounters Date Type Department Care Team (Late st Contact Info) Description 08/06/2024 11:00 AM EST Office [place] [address] Sarah Serra APRN [facility] [place] [address] documented as of this encounter Goals Goal Patient Goal Type Associated Problems Recent Progress Patient-Stated? Author Home Medication Compliance and Understanding Patient Facing Action Plan On track( 024 12:05 PM EDT) Arnel Hurd, [facility] Note: Patient's specific desired goal: reduce number of seizures, with secondary goal of being able to taper some of the other AEDs being used Measured by: seizure record, side effects exhibited Time-frame to meet goal: 3-6 months documented as of this encounter Visit Diagnoses Not on filedocumented in this encounter Care Teams Scale Manager Relationship Specialty Start Date End Date Luis Manuel Blanca MD [address] [place] [address] PCP - General Family Medicine 06/24/16 documented as of this encounter
--- OUTSIDE RECORDS SUMMARY | 2024-06-28 21:58 | XMS_ITS | Encounter Summary ---
Author Organization [facility] [place] [address] Care Team Providers Care Make Up Artist Name Role Phone Luis Manuel Blanca MD Primary Care Provider [phone] [phone] Reason for Visit * Reason Onset Date Comments Medication Refill 12/20/2022 Encounter Details Date Type Department Care Team (Late st Contact Info) Description 12/20/2022 [place] [address] Sarah Serra APRN [facility] [place] [address] Social History Tobacco Use Types Packs/Day Years [...] encounter Miscellaneous Notes * Telephone Encounter - Lili Otero RN - 12/20/2022 12:59 PM EDT Medication request for : Valtoco Information from Last Rx filled:04/30/21 From last note: - Epilepsy: Doing great! Longest she has every gone without a seizure and mood and energy improved. They are aware of the risks of polypharmacy but do not want to make any changes at this time. Reevaluate this summer if they are willing to try decreasing something but no changes today Last appt: 09/01/22 Next appt: 03/07/23 documented in this encounter Plan of Treatment Upcoming Encounters Date Type Department Care Team (Late st Contact Info) Description 08/06/2024 11:00 AM EST [place] [address] Sarah Serra APRN [facility] [place] [address] documented as of this encounter Goals Goal Patient Goal Type Associated Problems Recent Progress Patient-Stated? Author [facility] Medication Compliance and Understanding Patient Facing Action Plan On track( 024 12:05 PM EDT) No Arnel Benitez, [facility] Note: Patient's specific desired goal: reduce number of seizures, with secondary goal of being able to taper some of the other AEDs being used Measured by: seizure record, side effects exhibited Time-frame to meet goal: 3-6 months documented as of this encounter Visit Diagnoses Not on filedocumented in this encounter Care Teams Make Up Artist Relationship Specialty Start Date End Date Luis Manuel Blanca MD [address] [place] [address] PCP - General Family Medicine 06/24/16 documented as of this encounter
--- OUTSIDE RECORDS SUMMARY | 2024-06-28 21:58 | XMS_ITS | Encounter Summary ---
[place] [address] Care Team Providers Care Automotive Lube Technician Name Role Phone Luis Manuel Blanca MD Primary Care Provider [phone] [phone] Reason for Visit * Reason Onset Date Comments Prior Authorization 09/21/2023 Josh Encounter Details Date Type Department Care Team (Late st Contact Info) Description 09/21/2023 [place] [address] Lina Castro CMA Prior Authorization (Josh) Social History Tobacco Use Types Packs/Day Years [...] encounter Miscellaneous Notes * Telephone Encounter - Aurelia Holland CMA - 09/26/2023 4:01 PM ESTSummary: AOR form faxed [phone] Images from the original note were not included. Faxed to [phone]: URGENT REQUEST To whom this may concern, AOR form to initiate urgent appeal; provider called to initiate this on 09/25/2023, call reference number [id number] Case/Reference #: [id number] Please fax decision to [phone] * Telephone Encounter - Angelica Real RN - 09/26/2023 3:20 PM EST Left message awaiting call back. * Telephone Encounter - Aurelia Holland CMA - 09/25/2023 10:06 AM ESTSummary: Denial Images from the original note were not included. Submitted Date: Submitted Date: 09/21/2023 BARRY Outcome: PA Denial Medication [place] [address] DENIED: BanzeL 400 mg tablet Case/Reference #: [id number] Additional Information from Insurance: Please see reason for denial below. Denial letter in media tab. * Telephone Encounter - Lina Castro CMA - 09/22/2023 7:57 AM EST Images from the original note were not included. [employer] insurance form was submitted via fax; [phone] , and scanned into patient chart. * Telephone Encounter - Lina Castro CMA - 09/21/2023 1:44 PM EST Information below faxed to the insurance at [phone]. Patient has failed the following medications: Medication: cannabidioL (Epidiolex) 100 mg/mL Solution Approx Dates: 01/2019-current Outcome/Adverse Reactions: adjacent treatment Medication: DEPAKOTE 500 mg EC tablet Approx Dates: 05/2010-11/2014 Outcome/Adverse Reactions: Inadequate response Medication: levETIRAcetam (Keppra) 1,000 mg tablet Approx Dates: 03/2015-current Outcome/Adverse Reactions: adjacent treatment Medication: Onfi Approx Dates: 2015 Outcome/Adverse Reactions: inadequate response Clobazam, Diastat, Valtoco, Carnitor, Nayzilam, Versed, Trileptal, Luminal, and rufinamide. Please approve this medication as its a continuation of therapy. * Telephone Encounter - Lulu Zhao - 09/21/2023 1:37 PM EST Tessa from [employer] is requesting a call back to verify what other medications the patient's have tried and failed in order to approve the patient's prior authorization. Tessa advises that if [employer] has not received a response by 9am on 09/22/23 they will deny the patient's prior authorization. Pleasecall to advise. * Telephone Encounter - Lina Castro CMA - 09/21/2023 10:56 AM EST PA Submitted Submitted Date: Date Submitted:09/19/23 Medication Prior Authorization Patient: Cinthya Brown Patient : 1960 Insurance Company: [employer] Sent via: formerly [facility] Hou: [id number] Physician: Sarah Serra APRN Medication Requested: BanzeL 400 mg tablet Frequency/Sig: TAKE 3 TABLETS BY MOUTH EVERY MORNING TAKE 2 TABLETS AT NOON AND TAKE 3 TABLETS AT BEDTIME Disp: 224 tablets Refills: 11 Currently taking: yes If yes, how long: Brand since 2019 Diagnosis for this medication: Epilepsy with status epilepticus G40.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 Prior medications trialed in this patient: Medication: cannabidioL (Epidiolex) 100 mg/mL Solution Approx Dates: 01/2019-current Outcome/Adverse Reactions: adjacent treatment Medication: DEPAKOTE 500 mg EC tablet Approx Dates: 05/2010-11/2014 Outcome/Adverse Reactions: Inadequate response Medication: levETIRAcetam (Keppra) 1,000 mg tablet Approx Dates: 03/2015-current Outcome/Adverse Reactions: adjacent treatment Medication: Onfi Approx Dates: 2015 Outcome/Adverse Reactions: inadequate response Additional Notes: 04/11/23 office note attached documented in this encounter Plan of Treatment Upcoming Encounters Date Type Department Care Team (Late st Contact Info) Description 08/06/2024 11:00 AM EST [place] [address] Sarah Serra APRN [facility] [place] [address] documented as of this encounter Goals Goal Patient Goal Type Associated Problems Recent Progress Patient-Stated? Author Home Medication Compliance and Understanding Patient Facing Action Plan On track( 024 12:05 PM EDT) Arnel Hurd, [facility] Note: Patient's specific desired goal: reduce number of seizures, with secondary goal of being able to taper some of the other AEDs being used Measured by: seizure record, side effects exhibited Time-frame to meet goal: 3-6 months documented as of this encounter Visit Diagnoses Not on filedocumented in this encounter Care Teams Automotive Lube Technician Relationship Specialty Start Date End Date Luis Manuel Blanca MD [address] [place] [address] PCP - General Family Medicine 06/24/16 documented as of this encounter
--- OUTSIDE RECORDS SUMMARY | 2024-06-28 21:58 | XMS_ITS | Encounter Summary ---
[place] [address] Care Team Providers Care Slackline Operator Name Role Phone Luis Manuel Blanca MD Primary Care Provider [phone] [phone] Encounter Details Date Type Department Care Team (Late st Contact Info) Description 01/05/2023 [place] [address] Lizzie Solares APRN [facility] [place] [address] Social History Tobacco Use Types Packs/Day Years [...] Telephone Encounter - Tiff Gramajo RN - 01/05/2023 1:49 PM EDT Medication request for : Cannabidiol 100 mg/ml solution Information from Last Rx filled: Dose, Route, Frequency: As Directed Dispense Quantity: 258 mL Refills: 5 Note to Pharmacy: Wt - 72.6 Kg: Dx- Epilepsy seizure, generalized, convulsive ?? Si.3 ml twice daily. ?? Start Date: 12/09/22 End Date: -- Written Date: 07/15/22 From last note: - Epilepsy: Doing great! Longest she has every gone without a seizure and mood and energy improved.They are aware of the risks of polypharmacy [...] seen again by the epilepsy team in 6 months. - Caregiver verbalizes understanding and agrees with plan. Last appt: 09/01/22 Next appt: 03/07/23 documented in this encounter Plan of Treatment Upcoming Encounters Date Type Department Care Team (Late st Contact Info) Description 08/06/2024 11:00 AM EST [place] [address] Sarah Serra APRN [facility] [place] [address] documented as of this encounter Goals Goal Patient Goal Type Associated Problems Recent Progress Patient-Stated? Author [facility] Medication Compliance and Understanding Patient Facing [...] on filedocumented in this encounter Care Teams Slackline Operator Relationship Specialty Start Date End Date Luis Manuel Blanca MD [address] [place] [address] PCP - General Family Medicine 06/24/16 documented as of this encounter
--- OUTSIDE RECORDS SUMMARY | 2024-06-28 21:58 | XMS_ITS | Encounter Summary ---
[place] [address] Care Team Providers Care Medical Billing Specialist Name Role Phone Luis Manuel Blanca MD Primary Care Provider [phone] [phone] Reason for Visit * Reason Comments Medication Management Encounter Details Date Type Department Care Team (Late st Contact Info) Description 08/01/2023 Specialty [place] [id number] Telma Johnson Yadira Social History Tobacco Use Types Packs/Day Years Used Date Smoking Tobacco: Never Smokeless Tobacco: Never Alcohol Use Standard Drinks/Week Comments No 0 (1 standard drink = 0.6 oz pur e alcohol) Sex and Gender Information Value Date Recorded Sex Assigned at Not on file Gender Identity Not on file Sexual Orientation Not on file documented as of this encounter Progress Notes * Telma Johnson RPH - 08/01/2023 2:53 PM EST Clinical Management Plan: Refill Specialty Pharmacy Consultation; Telma Johnson Yadira Comprehensive Medication Management (CMM) Cinthya Alejandrabrianna Ms. Cinthya Brown is a 62 y.o. (1960) female who was contacted in regard to a specialty medication refill reminder. patient's caregiver requested a refill of Epidiolex. A review [...] And Vomiting Medication Reconciliation Discrepancies (compared to [facility] med list) No Specialty Pharmacy Refill Questionnaire More data exists 08/01/2023 Refill Questionnaire What is the name of the specialty medication you are refilling? Epidiolex Are you taking any new medications? No Any new medical condition? No Any new allergies? No Any new side effects that are bothersome? No What date will you need this fill by? 08/03/2023 Adherence: Any missed doses? No Patient understands no changes to current drug regimen were made. Telma Johnson RPH 08/01/23 2:56 PM documented in this encounter Plan of Treatment Upcoming Encounters Date Type Department Care Team (Late st Contact Info) Description 08/06/2024 11:00 AM EST [place] [address] Sarah Serra CHILD DAY CARE TEACHER [facility] [place] [address] documented as of this encounter Goals Goal Patient Goal Type Associated Problems Recent Progress Patient-Stated? Author [facility] Medication Compliance and Understanding Patient Facing [...] on filedocumented in this encounter Care Teams Medical Billing Specialist Relationship Specialty Start Date End Date Luis Manuel Blanca MD [address] [place] [address] [address] [place] [address] PCP - General Family Medicine 06/24/16 documented as of this encounter
--- OUTSIDE RECORDS SUMMARY | 2024-06-28 21:58 | XMS_ITS | Encounter Summary ---
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 Social History Tobacco [...] Pulse 85 10/30/2023 12:46 PM EDT Temperature - - Respiratory Rate - - Oxygen Saturation - - Inhaled Oxygen Concentration - - Weight 74.8 kg (165 lb) 10/30/2023 12:4 6 PM EDT reported she can not stand up Height 149.9 cm (4' 11) 10/30/2023 12: 46 PM EDT Body Mass Index 33.33 10/30/2023 12:46 PM EDT documented in this encounter Progress Notes * Maryse Sarah M, STEEL FIXER - 10/30/2023 1:00 PM EDT Subjective: [facility] EPILEPSY [place] [facility]LEHEALTH FOLLOW UP NOTE Patient Active Problem List Diagnosis [place]-Gastaut syndrome CAP (community acquired pneumonia) Epilepsy with [...] mg by mouth daily., Disp: , Rfl: PHENobarbitaL (Luminal) 60 mg tablet, TAKE 2 [...] A DAY, Disp: 258 mL, Rfl: 5 diphenoxylate-atropine (Lomotil) 2.5-0.025 mg tablet, , Disp: , Rfl: diazePAM (Valtoco) 10 mg/spray (0.1 mL) [place], Non-Aerosol, 10 mg by Nasal route as [...] times daily., Disp: 60 capsule, Rfl: 11 levETIRAcetam (Keppra) 1,000 mg tablet, Take 1 tablet by mouth 2 times daily., Disp: 60 tablet, Rfl: 11 LORazepam (Ativan) 1 mg tablet, Take 1-2 tablets at onset of seizure symptoms, if ineffective after30 minutes may repeat dose. If still not effective please call neurologist convertible top installer. Max 4mg daily. Take 0.5-1mg prior to seizure triggering activity., Disp: 10 tablet, Rfl: 0 sertraline (Zoloft) 100 mg tablet, TAKE ONE TABLET BY MOUTH EVERY DAY, Disp: 90 tablet, Rfl: 3 zonisamide (Zonegran) 100 mg capsule, Take 1 tab AM and 2 tabs PM (please bubble pack), Disp: 84 capsule, Rfl: 11 bisacodyl EC (Dulcolax) 5 mg Tablet, Delayed [...] as needed for Allergies., Disp: , Rfl: ferrous sulfate 325 mg (65 mg iron) Tablet, Take 325 mg by mouth daily., Disp: , Rfl: atorvastatin (LIPITOR) 40 mg tablet, Take 40 mg by mouth daily., Disp: , Rfl: budesonide (Uceris) [address], ER tablet, , Disp: , Rfl: albuteroL (ACCUNEB) 1.25 mg/3 mL Solution for Nebulization, INHALE THE CONTENTS OF ONE VIAL VIA NEBULIZER FOUR TIMES A DAY NEEDED, Disp: , Rfl: esomeprazole (NEXIUM) 40 mg Capsule, Delayed Release(E.C.), Take 40 mg by mouth daily. Reported on 11/18/2016, Disp: , Rfl: Past AEDs: Phenobarbital, Lorazepam, [...] past month: 0 Were seizures disabling? No Pt presents with caregiver, Crescencio. They report that while Cinthya's seizures have been stable she has not been doing well otherwise. Was having more GI sx and was put on a course of steroids. While on steroids she was actually doingquite well sleeping well and mood is good. Unfortunately after discontinuing she started having more mood issues, would get very agitated and uncooperative. She is not sleeping well at night, she will no longer wear her CPAP. She will be up all night long repeating words over and over again. She zainab ears withdrawn and is not as interactive as usual. I have no recent Keppra level and outside the the was elevated. Typically she lives in the high normal range. Likely they have been able to get her Banzel approved. Social History: Social History Socioeconomic History Marital [...] on file Social Factors: QEPILEPSY SOCIAL FACTORS 10/30/23 Employment status: No Currently driving: No Considering No Past Medical History: Diagnosis Date Hyperlipidemia MR (mental retardation) RIA (obstructive sleep apnea) Seizures Current Outpatient Medications on File Prior to Visit Medication Sig Dispense Refill pantoprazole EC (Protonix) [address] tablet Take 40 mg by mouth daily. PHENobarbitaL (Luminal) 60 mg tablet TAKE 2 [...] TWO TIMES A DAY 258 mL 5 diphenoxylate-atropine (Lomotil) 2.5-0.025 mg tablet diazePAM (Valtoco) 10 mg/spray (0.1 mL) [place], Non-Aerosol 10 mg by Nasal route as [...] mouth 2 times daily. 60 capsule 11 levETIRAcetam (Keppra) 1,000 mg tablet Take 1 tablet by mouth 2 times daily. 60 tablet 11 LORazepam (Ativan) 1 mg tablet Take 1-2 tablets at onset of seizure symptoms, if ineffective after 30 minutes may repeat dose. If still not effective please call neurologist convertible top installer. Max 4mg daily. Take 0.5-1mg prior to seizure triggering activity. 10 tablet 0 sertraline (Zoloft) 100 mg tablet TAKE ONE TABLET BY MOUTH EVERY DAY 90 tablet 3 zonisamide (Zonegran) 100 mg capsule Take 1 tab AM and 2 tabs PM (please bubble pack) 84 capsule 11 bisacodyl EC (Dulcolax) 5 mg Tablet, Delayed [...] by mouth daily as needed for Allergies. ferrous sulfate 325 mg (65 mg iron) Tablet Take 325 mg by mouth daily. atorvastatin (LIPITOR) 40 mg tablet Take 40 mg by mouth daily. budesonide (Uceris) [address], ER tablet albuteroL (ACCUNEB) 1.25 mg/3 mL Solution for Nebulization INHALE THE CONTENTS OF ONE VIAL VIA NEBULIZER FOUR TIMES A DAY NEEDED esomeprazole (NEXIUM) 40 mg Capsule, Delayed Release(E.C.) Take 40 mg by mouth daily. Reported on 11/18/2016 No current facility-administered medications on file prior to visit. Allergies Allergen Reactions Amoxicillin-Pot Clavulanate Rash Risedronate Sodium Nausea And Vomiting Objective: Physical Exam: Patient alert and awake, she appears to have lost some weight and her skin looks pearl glue drier and more hollow than usual. She is somewhat more slumped over than usual. She repeats words as previous stating that she has a hat but she is not as excited as usual, she does not really engage with examiner during this visit . Procedure: VNS interrogated today Output current: 2.0 milliamps Signal frequency: 20 Hertz Pulse Width:500 microseconds On time:14 sec Off time:1.1 min Autostim activated current: 2.0 mA Autostim on time: 30 seconds. Autostim pulse width: 500 microseconds Magnet activated current: 2.25 mA Magnet on time: 30 seconds. Magnet pulse width: 500 microseconds Battery 11-25% no IPI indicator Assessment and Plan: - Behavioral changes: pt has had worsening of behavioral issues- may be related to elevated Keprra level, did have bhevaioral issues on keppra in the past and it was stopped for that reason (subsequently restarted at a later inpatient admission). We will decrease dose to 750mg BID- watch closely for any increased seizure frequency -VNS battery 11-25%, while no IPI indicator on at this time it is possible it is on the verge of needing replacement. If symptoms do not improve with reduction of Keppra we will discuss this replacemetn with NS prior to IPI indicator. - Epilepsy: As above, able to get Banzel approved. - RIA: CPAP nightly - Screen for medication toxicity: labs at [...] seen again by the epilepsy team in 1-2 months. - Caregiver verbalizes understanding and agrees with plan. - Paper script for valtoco provided. TIME-BASED BILLING STATEMENT On the day of this encounter, I the medical provider spent a total of at least 30 minutes providingthis patient's care. This includes time spent [id number] with the patient performing independent evaluation, examination, education and counseling. It also includes non [id number] time preparing to see the patient, reviewing the charts, reviewing and interpreting labs/ imaging studies, coordinating care with other healthcare providers, and documentation. It was a pleasure speaking with them today . Sarah Serra APRN [facility] Epilepsy Program Department of Neurology This note [...] 11:00 AM EST [place] [address] Sarah Serra APRN [facility] [place] [address] documented as of this encounter Goals Goal Patient Goal Type Associated Problems Recent Progress Patient-Stated? Author [facility] Medication Compliance and Understanding Patient Facing Action Plan On track( 024 12:05 PM EDT) Arnel Hurd, 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
--- OUTSIDE RECORDS SUMMARY | 2024-06-28 21:58 | XMS_ITS | Encounter Summary ---
[place] [address] Care Team Providers Care Crystal Mounter Name Role Phone Luis Manuel Blanca MD Primary Care Provider [phone] Reason for Visit * Reason Onset Date Comments Prior Authorization 09/19/2023 Onfi 20MG ta blets Encounter Details Date Type Department Care Team (Late st Contact Info) Description 09/19/2023 [place] [phone] Lina Castro CMA Prior Authorization (Onfi 20MG tablets) Social History Tobacco Use Types Packs/Day Years [...] encounter Miscellaneous Notes * Telephone Encounter - Lina Castro CMA - 09/19/2023 8:48 AM EST Submitted Date: Submitted Date: 09/19/23 Next Review Date: Next Review Date: 08/06/24 BARRY Outcome: PA Approval Medication Prior Authorization Approval Approved: Onfi 20MG tablets Start Date: 09/19/23 End Date: 08/06/24 Case/Reference #: [id number] Approval Letter will be scanned into media once received. * Telephone Encounter - Lina Castro CMA - 09/19/2023 7:47 AM EST PA Submitted Submitted Date: Date Submitted:09/19/23 Medication Prior Authorization Patient: Cinthya Brown Patient : 1960 Insurance Company: [employer] Sent via: [place] Hou: [id number] Physician: Sarah Serra APRN Medication Requested: Onfi 20 mg tablet [...] 03/2015-current Outcome/Adverse Reactions: adjacent treatment Additional Notes: 04/11/23 office note attached documented in this encounter Plan of Treatment Upcoming Encounters Date Type Department Care Team (Late st Contact Info) Description 08/06/2024 11:00 AM EST [place] [address] Sarah Serra APRN [facility] [place] [address] documented as of this encounter Goals Goal Patient Goal Type Associated Problems Recent Progress Patient-Stated? Author [facility] Medication Compliance and Understanding Patient Facing Action Plan On track( 024 12:05 PM EDT) Arnel Hurd, [facility] Note: Patient's specific desired goal: reduce number of seizures, with secondary goal of being able to taper some of the other AEDs being used Measured by: seizure record, side effects exhibited Time-frame to meet goal: 3-6 months documented as of this encounter Visit Diagnoses Not on filedocumented in this encounter Care Teams Crystal Mounter Relationship Specialty Start Date End Date Luis Manuel Blanca MD [address] [place] [address] PCP - General Family Medicine 06/24/16 documented as of this encounter
--- OUTSIDE RECORDS SUMMARY | 2024-06-28 21:58 | XMS_ITS | Encounter Summary ---
[place] [address] Care Team Providers Care Consulting Solution Director Name Role Phone Luis Manuel Blanca MD Primary Care Provider [phone] [phone] Encounter Details Date Type Department Care Team (Late st Contact Info) Description 11/30/2023 Refill [place] [address] Lizzie Solares [facility] [place] [address] Social History Tobacco Use Types Packs/Day Years [...] 11:00 AM EST Office [place] [phone] Sarah Serra [facility] [place] [address] documented as of this encounter Goals Goal Patient Goal Type Associated Problems Recent Progress Patient-Stated? Author [facility] Medication Compliance and Understanding Patient Facing Action Plan On track( 024 12:05 PM EDT) Arnel Hurd, [facility] Note: Patient's specific desired goal: reduce number of seizures, with secondary goal of being able to taper some of the other AEDs being used Measured by: seizure record, side effects exhibited Time-frame to meet goal: 3-6 months documented as of this encounter Visit Diagnoses Not on filedocumented in this encounter Care Teams Consulting Solution Director Relationship Specialty Start Date End Date Luis Manuel Blanca MD [address] [place] [address] PCP - General Family Medicine 06/24/16 documented as of this encounter
--- OUTSIDE RECORDS SUMMARY | 2024-06-28 21:58 | XMS_ITS | Encounter Summary ---
[place] [address] Care Team Providers Care Naturopathic Physician Name Role Phone Luis Manuel Blanca MD Primary Care Provider [phone] [phone] Encounter Details Date Type Department Care Team (Late st Contact Info) Description 12/20/2022 [place] [address] Sarah Serra APRN [facility] [place] [address] Social History Tobacco Use Types Packs/Day Years [...] Telephone Encounter - Ladonna Pandey RN - 12/22/2022 9:42 AM EDT Called Crescencio to let her know labs were faxed over to [facility]. Crescencio will call lab to confirm receipt and call if they had problem with receiving them. * Telephone Encounter - Ladonna Pandey RN - 12/20/2022 5:00 PM EDT Copied from CRM #[id number]. Topic: Specialty Dept CRMs - Orders >> December 20, 2022 4:48 PM Angelica Donohue wrote: Orders Request Specialist: Maryse Relationship (if other than patient-full name): Crescencio- Caregiver Type of Request: Blood works Type/Name of Order: Hepatic function Panel or liver function level - Crescencio states patient was advised by Pharmacy to have this done every 3 months . Patient Requesting to Have Orders Sent to Facility Outside of [facility]: [facility] fax: [phone] , ph: [phone] documented in this encounter Plan of Treatment Upcoming Encounters Date Type Department Care Team (Late st Contact Info) Description 08/06/2024 11:00 AM EST [place] [address] Sarah Serra APRN [facility] [place] [address] documented as of this encounter Goals Goal Patient Goal Type Associated Problems Recent Progress Patient-Stated? 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
--- OUTSIDE RECORDS SUMMARY | 2024-06-28 21:58 | XMS_ITS | Encounter Summary ---
[place] [address] Care Team Providers Care Supervisor Throwing Department Name Role Phone Luis Manuel Blanca MD Primary Care Provider [phone] [phone] Reason for Visit * Reason Onset Date Comments Prior Authorization 12/22/2022 Valtoco 10 M G Dose 10MG/0.1ML liquid Encounter Details Date Type Department Care Team (Late st Contact Info) Description 12/22/2022 Tele[place] [phone] Poppy Vazquez CMA Prior Authorization (Valtoco 10 MG Dose 10MG/0.1ML liquid) Social History Tobacco Use Types Packs/Day Years [...] encounter Miscellaneous Notes * Telephone Encounter - Poppy Vazquez CMA - 12/22/2022 10:53 AM EDTSummary: Approved Submitted Date: Submitted Date: 12/22/2022 Next Review Date: Next Review Date: 12/22/2023 PA Outcome: PA Approval Medication Prior Authorization Approval Approved: Valtoco Start Date: 08/07/2022 End Date: 12/22/2023 Approval Letter will be scanned into media once received. * Telephone Encounter - Poppy Vazquez CMA - 12/22/2022 8:31 AM EDT PA Submitted Submitted Date: Submitted Date: 12/22/2022 Medication Prior Authorization Patient: Cinthya Brown Patient : 1960 Insurance Company: [employer] Sent via: [facility] Hou: [id number] Physician: Sarah Serra APRN Medication Requested: diazePAM (Valtoco) 10 mg/spray (0.1 mL) [place], Non-Aerosol Frequency/Si mg by Nasal route as needed (seizure clusters (call if ineffective) Max dose 10mgdaily unless instucted otherwise by office.). 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 Medication: levETIRAcetam (Keppra) 1,000 mg Tablet Approx Dates: current Outcome/Adverse Reactions: Inadequate response ?? Medication: PHENobarbitaL (Luminal) 60 mg Tablet Approx Dates: current Outcome/Adverse Reactions: Inadequate response ?? Medication: Onfi 20 mg Tablet Approx Dates: current Outcome/Adverse Reactions: Inadequate response ?? Medication: zonisamide (Zonegran) 100 mg Capsule Approx Dates: current Outcome/Adverse Reactions: Inadequate response ?? Medication: benzel Approx Dates: 2018-current Outcome/Adverse Reactions: Inadequate response ?? Medication: LORazepam (ATIVAN) 1 mg Tablet Approx Dates: current Outcome/Adverse Reactions: Inadequate response ?? Additional Notes: documented in this encounter Plan of Treatment Upcoming Encounters Date Type Department Care Team (Traci Contact Info) Description 08/06/2024 11:00 AM EST Office [place] [address] Sarah Serra APRN [facility] [place] [address] documented as of this encounter Goals Goal Patient Goal Type Associated Problems Recent Progress Patient-Stated? Author Home Medication Compliance and Understanding Patient Facing Action Plan On track( 024 12:05 PM EDT) No Arnel Benitez, [facility] Note: Patient's specific desired goal: reduce number of seizures, with secondary goal of being able to taper some of the other AEDs being used Measured by: seizure record, side effects exhibited Time-frame to meet goal: 3-6 months documented as of this encounter Visit Diagnoses Not on filedocumented in this encounter Care Teams Supervisor Throwing Department Relationship Specialty Start Date End Date Luis Manuel Blanca MD [address] [place] [address] PCP - General Family Medicine 06/24/16 documented as of this encounter
--- OUTSIDE RECORDS SUMMARY | 2024-06-28 21:58 | XMS_ITS | Encounter Summary ---
[place] [address] Care Team Providers Care Shoe Coverer Name Role Phone Luis Manuel Blanca MD Primary Care Provider [phone] [phone] Reason for Visit * Reason Comments Specialty Refill Management Encounter Details Date Type Department Care Team (Late st Contact Info) Description 09/12/2023 Specialty [place] [id number] Bj Alex [facility] Social History Tobacco Use Types Packs/Day [...] of this encounter Progress Notes * Bj Alex [facility] - 09/12/2023 12:10 PM EST Specialty Pharmacy Consultation; Bj Alex [facility] Comprehensive Medication Management (CMM): Specialty Consult, Intervention Cinthya Brown Diagnosis: LGS Contact in person or via telephone: phone Ms. Cinthya Brown is a 62 y.o. (1960) female who was contacted in regard to specialty medication intervention. Spoke with caregiver. Caregiver name: Crescencio regarding Epidiolex. Recommendation: Caregiver was contacted for routine refill reminder. I noted that it had been nearly 2 years since lab work had be done. Advised that there is an order on file for CBC and that I would contact provider to request further recommend monitoring labs. Outcome: Caregiver acknowledged and agreed they could be done prior to next appointment in October. I sent a message to Rosemarie Serra APRN to request an order for CMP. Specialty Pharmacy Intervention: Intervention Category (Nature of Intervention): Lab or Immunization Recommendation Lab/Immunization Recommendations: Pharmacist placed order or coordinated placement of an order for a safety lab, Pharmacist communicated with patient to coordinate collection of labs Bj Alex RPH 09/12/23 1:22 PM * Bj Alex RP - 09/12/2023 12:10 PM EST Clinical Management Plan: Refill Specialty Pharmacy Consultation; Bj Alex Yadira Comprehensive Medication Management (CMM) Cinthya Brown is a 62 y.o. (1960) female who was contacted in regard to a specialty medication refill reminder. The caregiver. Caregiver name: Crescencio requested a refill of Epidiolex. A review of the medication therapy was performed. The medication was refilled as scheduled, and all medication related questions and concerns were addressed. The specialty pharmacy staff will follow up with the patient 5-7 days prior to next refill. Was a change made to the Care Plan: No Specialty Pharmacy Intervention: Intervention Category (Nature of Intervention): Lab or Immunization Recommendation Lab/Immunization Recommendations: Pharmacist placed order or coordinated placement of an order for a safety lab, Pharmacist communicated with patient to coordinate collection of labs Allergies and Drug intolerance: Allergies Allergen Reactions Amoxicillin-Pot Clavulanate Rash Risedronate Sodium Nausea And Vomiting Medication Reconciliation Discrepancies (compared to [facility] med list) No Specialty Pharmacy Refill Questionnaire More data exists 09/12/2023 Refill Questionnaire What is the name of the specialty medication you are refilling? Epidiolex Are you taking any new medications? No Any new medical condition? No Any new allergies? No Any new side effects that are bothersome? No What date will you need this fill by? 09/19/2023 Adherence: Any missed doses? No Patient understands no changes to current drug regimen were made. Bj Alex RPH 09/12/23 1:25 PM documented in this encounter Miscellaneous Notes * Addendum Note - Sarah Serra APRN - 09/12/2023 12:10 PM ESTAddended by: SARAH SERRA on: 09/13/2023 05:05 PM Modules accepted: Orders documented in this encounter Plan of Treatment Upcoming Encounters Date Type Department Care Team (Late st Contact Info) Description 08/06/2024 11:00 AM EST [place] [address] Sarah Serra APRN [facility] [place] [address] Scheduled Orders Name Type Priority Associated Diagnoses Orde r Schedule Zonisamide level Lab Routine Seizure Expected: 09/13/2023, Expires: 09/13/2024 documented as of this encounter Goals Goal Patient Goal Type Associated Problems Recent Progress Patient-Stated? Author [facility] Medication Compliance and Understanding Patient Facing Action Plan On track( 024 12:05 PM EDT) No Arnel Benitez, [facility] Note: Patient's specific desired goal: reduce number of seizures, with secondary goal of being able to taper some of the other AEDs being used Measured by: seizure record, side effects exhibited Time-frame to meet goal: 3-6 months documented as of this encounter Results * Phenobarbital level (10/04/2023 3:55 PM EST) Phenobarbital 33.6 NURSE [facility] FAC[facility] Blood 10/04/2023 3:55 PM EST Sarah M Schommer VOLTAGE TESTER CHEMISTRY ORDERA BLES Performing Organization Address [facility] Co de Phone Number EXTERNAL FACILITY * (ABNORMAL) Comprehensive metabolic panel [...] Blood 10/04/2023 3:55 PM EST Sarah Serra APRN CHEMISTRY ORDERA BLES Performing Organization Address [facility] de Phone Number EXTERNAL FACILITY * (ABNORMAL) Clobazam Level (10/04/2023 3:36 PM EST) Clobazam (DECEMBER) 221.0 EXTER NAL FACILITY Desmethylclobazam (DECEMBER) 4,320.0(H ) EXTERNAL FACILITY Blood 10/04/2023 3:36 PM EST Sarah Serra APRN LAB SEND OUT ORD ERABLES Performing Organization Address [facility] Co de Phone Number EXTERNAL FACILITY documented in this encounter Visit Diagnoses Diagnosis Seizure Other convulsions documented in this encounter Care Teams Shoe Coverer Relationship Specialty Start Date End Date Luis Manuel Blanca MD [address] [place] [address] PCP - General Family Medicine 06/24/16 documented as of this encounter
--- OUTSIDE RECORDS SUMMARY | 2024-06-28 21:58 | XMS_ITS | Encounter Summary ---
[place] [address] Care Team Providers Care Info Print Press Operator Name Role Phone Luis Manuel Blanca MD Primary Care Provider [phone] [phone] Encounter Details Date Type Department Care Team (Latest Contact Info) Description 01/19/2024 Specialty [place] [address] Shay Harding [facility] Refill Coordination - 30 day recurrence (cannabidiol (CBD)) for Seizure Disorder, Clinical Assessment - 10 month recurrence (cannabidiol (CBD)) for Seizure Disorder Social [...] Progress Notes * Shay Harding RPH - 01/19/2024 12:02 PM EDT Specialty Pharmacy Ongoing Clinical Assessment Note Comprehensive Medication Management (CMM): Specialty Consult, Opt Out Cinthya Brown is a 63 y.o. (1960) female, who is being followed by [facility] forservice of Cannabidiol (Cbd). A review of the medication therapy was performed. The medication was Filled as scheduled, and all medication related questions and concerns were addressed. The specialtypharmacy staff will follow up with the patient 5-7 days prior to next refill. Is patient willing to proceed with Clinical Assessment?: No Summary and Recommendations: Today I spoke with Crescencio, the caregiver of Cinthya Brown who was due for a refill on Cinthya Brown as well as a routine clinical follow up consultation. The medication was refilled but Crescencio declined to participate in the full consultation. Crescencio said that there haven't been any changes in allergies, medications, or medical conditions since the last fill. The patient also did not miss any dosesor have any side effects. Crescencio had no questions or concerns at this time and we encouraged her to reach out to us with any questions or concerns, our contact information was provided. We will continue to follow up with the patient monthly for refills and biannually for consults. 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 05/21/2019: 50mg Nightly loratadine (CLARITIN) 10 mg Tablet Take 10 mg by mouth daily as needed for Allergies. 01/28/2019: seasonal esomeprazole (NEXIUM) 40 mg Capsule, Delayed Release(E.C.) Take 40 mg by mouth daily. Reported on 11/18/2016 ferrous sulfate 325 mg (65 mg iron) Tablet Take 325 mg by mouth daily. atorvastatin (LIPITOR) 40 mg tablet Take 40 mg by mouth daily. No current facility-administered medications for this visit. Therapy Assessment and Recommendations: 01/19/2024 Clinical Assessment Review Therapy start date 01/05/2019 What date will you need this fill by? 01/27/2024 Appropriate Therapy Yes Additional equipment/supplies required No Care Plan reviewed and approved by pharmacist Yes Medication reconciliation discrepancies (compared to [facility] med list) No Pharmacist follow-up needed No Patient informed of specialty services: Yes Patient verbalizes understanding of the common side effect profile of their medication(s).The patient is able to call 911 or seek urgent care if signs/symptoms of allergy or harmful adverse reactionsoccur: Yes Patient understands no change to current drug regimen were made at the appointment and that [facility] is providing recommendations (summary at top of note) for provider review and follow up: Yes Medication Therapy Recommendations No medication therapy recommendations to display Shay Harding RPH 01/19/24 12:05 PM documented in this encounter Plan of Treatment Upcoming Encounters Date Type Department Care Team (Late st Contact Info) Description 08/06/2024 11:00 AM EST [place] [address] Sarah Serra [address]N [facility] [place] [address] documented as of this encounter Goals Goal Patient Goal Type Associated Problems Recent Progress Patient-Stated? Author [facility] Medication Compliance and Understanding Patient Facing Action Plan On track( 024 12:05 PM EDT) No Arnel Benitez [facility] [...] epilepticus documented in this encounter Care Teams Info Print Press Operator Relationship Specialty Start Date End Date Luis Manuel Blanca MD [address] [facility] [address] [place] [address] PCP - General Family Medicine 06/24/16 documented as of this encounter
--- OUTSIDE RECORDS SUMMARY | 2024-06-28 21:58 | XMS_ITS | Encounter Summary ---
[place] [address] Care Team Providers Care Volunteer Patient Representative Name Role Phone Luis Manuel Blanca MD Primary Care Provider [phone] Reason for Visit * Reason Comments Medication Refill Encounter Details Date Type Department Care Team (Late st Contact Info) Description 10/09/2023 Ref[place] [address] Sarah Serra APRN [facility] [place] [address] Social History Tobacco Use Types Packs/Day Years [...] Telephone Encounter - Tiff Gramajo RN - 10/10/2023 1:22 PM EST Prescription Renewal Request Name: Cinthya Brown : 1960 Prescription(s) Requested: Requested Prescriptions Pending Prescriptions Disp Refills PHENobarbitaL (Luminal) 60 mg tablet [Pharmacy Med Name: PHENobarbital 60MG TABS*] 56 tablet Sig: TAKE 2 TABLETS BY MOUTH NIGHTLY. Onfi 20 mg tablet [Pharmacy Med Name: Onfi 20MG TABS] 28 tablet Sig: TAKE 1 TABLET BY MOUTH EVERY EVENING Date of Last Encounter: 04/11/23 Epilepsy: Doing great! Longest she has every gone without a seizure and mood and energy improved. May need VNS replaced soon, will decrease time in between visits to monitor this more closely. - RIA: CPAP nightly - Screen for medication toxicity: labs at next visit Next Encounter: 10/30/2023 Date of Last Refill: 04/11/23 for both Medication category requirements (labs etc): n/a Status of request: Pended Allergies Allergen Reactions Amoxicillin-Pot Clavulanate Rash Risedronate Sodium Nausea And Vomiting Tiff Gramajo RN 10/10/23 1:23 PM documented in this encounter Plan of Treatment Upcoming Encounters Date Type Department Care Team (Late st Contact Info) Description 08/06/2024 11:00 AM EST Office [place] [address] Sarah Serra APRN [facility] [place] [address] documented as of this encounter Goals Goal Patient Goal Type Associated Problems Recent Progress Patient-Stated? Author [facility] Medication Compliance and Understanding Patient Facing Action Plan On track( 024 12:05 PM EDT) Arnel Hurd, [facility] Note: Patient's specific desired goal: reduce number of seizures, with secondary goal of being able to taper some of the other AEDs being used Measured by: seizure record, side effects exhibited Time-frame to meet goal: 3-6 months documented as of this encounter Visit Diagnoses Not on filedocumented in this encounter Care Teams Volunteer Patient Representative Relationship Specialty Start Date End Date Luis Manuel Blanca MD [address] [place] [address] [address] [facility] [address] [place] [address] PCP - General Family Medicine 06/24/16 documented as of this encounter
--- OUTSIDE RECORDS SUMMARY | 2024-06-28 21:58 | XMS_ITS | Encounter Summary ---
[place] [address] Care Team Providers Care Umbrella Mender Name Role Phone Luis Manuel Blanca MD Primary Care Provider [phone] Encounter Details Date Type Department Care Team (Late st Contact Info) Description 01/09/2024 Telephone [place] [address] [address] Serra [address]N [facility] [place] [address] Social History Tobacco Use Types Packs/Day Years [...] encounter Miscellaneous Notes * Telephone Encounter - Angelica Real RN - 01/09/2024 4:38 PM EDT Spoke with Crescencio. She is currently on Keppra 750mg BID. Along with her regular seizure meds No missed/late medication, no illness and no new stress. VNS was not used, Crescencio was not with her when she had the seizure, but she was given 2 ativan prior to seizure because she was not acting right and then given another 2 ativan after seizure. She has had no other activity beside the one episode. Crescencio stated that Sarah wanted to know when she had a seizure. So it could be documented. * Telephone Encounter - Tiff Gramajo RN - 01/09/2024 11:53 AM EDT Copied from [facility] #[id number]. Topic: Specialty Dept CRMs - Triage >> Jan 09, 2024 9:52 AM Jeanna Yi wrote: Triage Message Specialist: Maryse Smith APRN Relationship (if other than patient-full name): Crescencio Burak, caregiver Symptom: seizure Has patient experienced symptom before yes If patient has experienced symptom before, when was the last time this occurred roughly one year ago Is patient currently having symptom no When did symptom begin last night 01/07 Additional Comments: Crescencio states Cinthya's keppra dosage had been decreased and Cinthya has had the first seizure in over a year last night. Inquiring if Sarah Serra APRN has any reccomendations for medication changes or if Cinthya should stay on the decreased dosage. documented in this encounter Plan of Treatment Upcoming Encounters Date Type Department Care Team (Late st Contact Info) Description 08/06/2024 11:00 AM EST Office [place] [address] [address] Serra [address]N [facility] [place] [address] documented as of this encounter Goals Goal Patient Goal Type Associated Problems Recent Progress Patient-Stated? Author [facility] Medication Compliance and Understanding Patient [...] on filedocumented in this encounter Care Teams Umbrella Mender Relationship Specialty Start Date End Date Luis Manuel Blanca MD [address] [place] [address] PCP - General Family Medicine 06/24/16 documented as of this encounter
--- OUTSIDE RECORDS SUMMARY | 2024-06-28 21:58 | XMS_ITS | Encounter Summary ---
[place] [address] Care Team Providers Care Womens Volleyball Coach Name Role Phone Luis Manuel Blanca MD Primary Care Provider [phone] Reason for Visit * Reason Comments Medication Refill Epidiolex 100 mg/ml soln Encounter Details Date Type Department Care Team (Late st Contact Info) Description 11/30/2023 Specialty [place] [phone] Junior Daily, [facility] Social History Tobacco Use Types [...] this encounter Progress Notes * Junior Daily - 11/30/2023 9:37 AM EDT Clinical Management Plan: Refill Specialty Pharmacy Consultation; Junior Daily Comprehensive Medication Management (CMM) Cinthya Ed Alejandrabrianna Ms. Cinthya Brown is a 63 y.o. [...] And Vomiting Medication Reconciliation Discrepancies (compared to [facility] med list) No Specialty Pharmacy Refill Questionnaire More data exists 11/30/2023 Refill Questionnaire What is the name of the specialty medication you are refilling? Epidiolex 100 mg/ml soln Are you taking any new medications? No Any new medical condition? No Any new allergies? No Any new side effects that are bothersome? No What date will you need this fill by? 12/05/2023 Adherence: Any missed doses? No Patient understands no changes to current drug regimen were made. Junior Daily 11/30/23 9:41 AM documented in this encounter Plan of Treatment Upcoming Encounters Date Type Department Care Team (Late st Contact Info) Description 08/06/2024 11:00 AM EST Office [place] [address] Sarah Serra APRN [facility] [place] [address] documented as of this encounter Goals Goal Patient Goal Type Associated Problems Recent Progress Patient-Stated? Author [facility] Medication Compliance and Understanding Patient Facing Action Plan On track( 024 12:05 PM EDT) No Arnel Benitez, [facility] Note: Patient's specific desired goal: reduce number of seizures, with secondary goal of being able to taper some of the other AEDs being used Measured by: seizure record, side effects exhibited Time-frame to meet goal: 3-6 months documented as of this encounter Visit Diagnoses Not on filedocumented in this encounter Care Teams Womens Volleyball Coach Relationship Specialty Start Date End Date Luis Manuel Blanca MD [address] [place] [address] PCP - General Family Medicine 06/24/16 documented as of this encounter
--- OUTSIDE RECORDS SUMMARY | 2024-06-28 21:58 | XMS_ITS | Encounter Summary ---
[place] [address] Care Team Providers Care Grading Machine Feeder Name Role Phone Luis Manuel Blanca MD Primary Care Provider [phone] Reason for Visit * Reason Comments Medication Management Patient Education Encounter Details Date Type Department Care Team (Late st Contact Info) Description 01/06/2023 Specialty Pharmacy [place] [phone] Bj Heck [facility] Social History Tobacco Use Types [...] this encounter Progress Notes * Bj Heck [facility] - 01/06/2023 12:19 PM EDT Clinical Management Plan: Refill Specialty Pharmacy Consultation; Bj Heck [facility] Comprehensive Medication Management (CMM) Cinthya Ed Alejandrabrianna Ms. Cinthya Brown is a 62 y.o. (1960) female who was contacted in regard to a specialty medication refill reminder. Contact made with caregiver. Caregiver name: Crescencio regarding epidiolex. A review of the medication [...] And Vomiting Medication Reconciliation Discrepancies (compared to [facility] med list) No Specialty Pharmacy Refill Questionnaire 01/06/2023 Refill Questionnaire What is the name of the specialty medication you are refilling? epidiolex Are you taking any new medications? No Any new medical condition? No Any new allergies? No Any new side effects that are bothersome? No What date will you need this fill by? 01/13/2023 Adherence: Any missed doses? No Patient understands no changes to current drug regimen were made. Bj Heck RPH 01/06/23 12:20 PM documented in this encounter Plan of Treatment Upcoming Encounters Date Type Department Care Team (Late st Contact Info) Description 08/06/2024 11:00 AM EST Office [place] [address] Sarah Serra APRN [facility] [place] [address] documented as of this encounter Goals Goal Patient Goal Type Associated Problems Recent Progress Patient-Stated? Author [facility] Medication Compliance and Understanding Patient Facing Action Plan On track( 024 12:05 PM EDT) No Arnel Benitez [facility] Note: Patient's specific desired goal: reduce number of seizures, with secondary goal of being able to taper some of the other AEDs being used Measured by: seizure record, side effects exhibited Time-frame to meet goal: 3-6 months documented as of this encounter Visit Diagnoses Not on filedocumented in this encounter Care Teams Grading Machine Feeder Relationship Specialty Start Date End Date Luis Manuel Blanca MD [address] [place] [address] PCP - General Family Medicine 06/24/16 documented as of this encounter
--- OUTSIDE RECORDS SUMMARY | 2024-06-28 21:58 | XMS_ITS | Encounter Summary ---
[place] [address] Care Team Providers Care Special Warfare Combatant Crewman Name Role Phone Luis Manuel Blanca MD Primary Care Provider [phone] [phone] Encounter Details Date Type Department Care Team (Late st Contact Info) Description 04/03/2023 [place] [address] Sarah Serra APRN [facility] [place] [address] Social History Tobacco Use Types Packs/Day Years [...] encounter Miscellaneous Notes * Telephone Encounter - Payal Mayer RN - 04/04/2023 2:24 PM EDT Prescription Renewal Request Name: Cinthya Brown : 1960 Prescription(s) Requested: Requested Prescriptions Pending Prescriptions Disp Refills cannabidioL (Epidiolex) 100 mg/mL Solution 258 mL 0 Si.3 ml twice daily. Date of Encounter last in This Dept (If need an appointment send to secretaries to schedule): 09/01/22 Next Encounter in This Dept: 04/11/2023 Date of Last Refill (for each medication): 01/05/23 Medication category requirements (labs etc): Confirm weight for correct dosage at next appt Status of request: Pended Allergies Allergen Reactions Amoxicillin-Pot Clavulanate Rash Risedronate Sodium Nausea And Vomiting Payal Mayer RN 04/04/23 2:28 PM documented in this encounter Plan of Treatment Upcoming Encounters Date Type Department Care Team (Late st Contact Info) Description 08/06/2024 11:00 AM EST Office [place] [address] Sarah Serra APRN [facility] [place] [address] documented as of this encounter Goals Goal Patient Goal Type Associated Problems Recent Progress Patient-Stated? Author [facility] Medication Compliance and Understanding Patient Facing Action Plan On track( 024 12:05 PM EDT) No Arnel Benitez, [facility] Note: Patient's specific desired goal: reduce number of seizures, with secondary goal of being able to taper some of the other AEDs being used Measured by: seizure record, side effects exhibited Time-frame to meet goal: 3-6 months documented as of this encounter Visit Diagnoses Not on filedocumented in this encounter Care Teams Special Warfare Combatant Crewman Relationship Specialty Start Date End Date Luis Manuel Blanca MD [address] [place] [address] [address] [place] [address] PCP - General Family Medicine 06/24/16 documented as of this encounter
--- OUTSIDE RECORDS SUMMARY | 2024-06-28 21:58 | XMS_ITS | Encounter Summary ---
[place] [address] Care Team Providers Care Medical Records Assistant Name Role Phone Luis Manuel Blanca MD Primary Care Provider [phone] Reason for Visit * Reason Onset Date Comments Prior Authorization 12/25/2023 diazePAM (Va ltoco) 10 mg/spray (0.1 mL) [place], Non-Aerosol Encounter Details Date Type Department Care Team (Late st Contact Info) Description 12/25/2023 [place] [phone] Kourtney Parish MA Prior Authorization (diazePAM (Valtoco) 10 mg/spray (0.1 mL) [place], Non-Aerosol) Social History Tobacco Use Types Packs/Day [...] encounter Miscellaneous Notes * Telephone Encounter - Kourtney Parish MA - 01/03/2024 7:54 AM EDTSummary: BARRY Approval diazePAM (Valtoco) 10 mg/spray (0.1 mL) [place], Non-Aerosol Images from the original note were not included. Submitted Date: Submitted Date: 12/25/2023 Next Review Date: Next Review Date: 08/06/2024 PA Outcome: PA Approval Medication Prior Authorization Approval Approved: diazePAM (Valtoco) 10 mg/spray (0.1 mL) [place], Non-Aerosol Start Date: 12/25/2023 End Date: 08/06/2024 Case/Reference #: [id number] Approval Letter will be scanned into media once received. * Telephone Encounter - Kourtney Parish MA - 12/25/2023 9:56 AM EDTSummary: PA Request diazePAM (Valtoco) 10 mg/spray (0.1 mL) [place], Non-Aerosol PA Submitted Submitted Date: Date Submitted: 12/25/2023 Medication Prior Authorization Patient: Cinthya Brown Patient : 1960 Insurance Company: [employer] Sent via: [employer] Hou: [id number] Physician: Sarah Serra APRN Medication Requested: diazePAM (Valtoco) 10 mg/spray (0.1 mL) [place], Non-Aerosol Frequency/Si mg by Nasal route as needed (seizure clusters (call if ineffective) Max dose 10mgdaily unless instucted otherwise by office.) Disp: 2 each Refills: 3 Currently taking: yes If yes, how lon04/30/21-present Diagnosis for this medication: 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 Prior medications trialed in this patient: Medication: diaZEPam (DIASTAT ACUDIAL) 12.5-15-17.5-20 mg Kit Approx Dates: 05/11/10 -04/30/21 Outcome/Adverse Reactions: Inadequate response Medication: BanzeL Approx Dates: 05/29/15-present Outcome/Adverse Reactions: Inadequate response alone Medication: LORazepam (ATIVAN) 1 mg tablet Approx Dates: 05/11/10-present Outcome/Adverse Reactions: Inadequate response alone Medication: cannabidiol, CBD, extract (EPIDIOLEX) 100 mg/mL Solution Approx Dates: 01/23/19 -present Outcome/Adverse Reactions: inadequate response alone Medication: OXcarbazepine (TRILEPTAL) Approx Dates: 05/11/10-03/23/22 Outcome/Adverse Reactions: inadequate response Medication: PHENobarbital (LUMINAL) Approx Dates: 06/28/10-present Outcome/Adverse Reactions: inadequate response alone Medication: DEPAKOTE Delayed Release (E.C.) Approx Dates: 05/11/10 -11/24/14 Outcome/Adverse Reactions: inadequate response Medication: levoCARNitine (CARNITOR) 330 mg tablet Approx Dates: 05/25/10-11/24/14 Outcome/Adverse Reactions: inadequate response Medication: OXcarbazepine (TRILEPTAL) 300 mg tablet Approx Dates: 05/11/10 -03/23/22 Outcome/Adverse Reactions: inadequate response Medication: divalproex (DEPAKOTE) Approx Dates: 05/11/10-11/24/14 Outcome/Adverse Reactions: inadequate response Additional Notes: 11/30/2023 Office Notes of Sarah Serra APRN Neurology [facility] TELEHEALTH FOLLOW UP NOTE Patient Active Problem List Diagnosis Belmont-Gastaut syndrome CAP (community acquired pneumonia) Epilepsy with [...] jerking alone Triggers:Excitement, cold, sometimes unprovoked Current Medications Current Outpatient Medications: pantoprazole EC (Protonix) 40 [...] Rfl: diazePAM (Valtoco) 10 mg/spray (0.1 mL) [place], Non-Aerosol, 10 mg by Nasal route as [...] If still not effective please call neurologist cash on delivery clerk. Max 4mg daily. Take 0.5-1mg prior to [...] VNS check as well as a overallcheck-in. Assessment and Plan: - Epilepsy: doing well, [...] providingthis patient's care. This includes time spent [id number] with the patient performing independent evaluation, examination, education and counseling. It also includes non vsgp-ga-mggr time preparing to see the patient, reviewing the charts, reviewing and interpreting labs/ imaging studies, coordinating care with other healthcare providers, and documentation. It was a pleasure speaking with them today . Sarah Serra APRN [facility] Epilepsy Program Department of Neurology [...] 11:00 AM EST [place] [address] Sarah Serra APRN [facility] [place] [address] documented as of this encounter Goals Goal Patient Goal Type Associated Problems Recent Progress Patient-Stated? Author [facility] Medication Compliance and Understanding Patient Facing [...] filedocumented in this encounter Care Teams Medical Records Assistant Relationship Specialty Start Date End Date Luis Manuel Blanca MD [address] [place] [address] PCP - General Family Medicine 06/24/16 documented as of this encounter
--- OUTSIDE RECORDS SUMMARY | 2024-06-28 21:58 | XMS_ITS | Encounter Summary ---
[place] [address] Care Team Providers Care Aircraft Fuselage Framer Name Role Phone Luis Manuel Blanca MD Primary Care Provider [phone] Reason for Visit * Reason Comments Medication Refill Encounter Details Date Type Department Care Team (Late st Contact Info) Description 01/18/2024 [place] [address] Lizzie Solares APRN [facility] [place] [address] Epilepsy seizure, generalized, convulsive Social History Tobacco [...] Miscellaneous Notes * Telephone Encounter - Kourtney Banuelos RN - 01/18/2024 11:31 AM EDT .Prescription Renewal Request Name: Cinthya Brown : 1960 Prescription(s) Requested: Requested Prescriptions Pending Prescriptions Disp Refills LORazepam (Ativan) 1 mg tablet [Pharmacy Med Name: LORazepam 1MG TABS*] 10 tablet 0 Sig: TAKE 1 TO 2 TABLETS BY MOUTH AT ONSET OF SEIZURE SYMPTOMS IF NOT EFFECTIVE MAY REPEAT DOSE Date of Encounter last in This Dept : 11/30/23 Epilepsy: doing well, no changes at thist time. -VNS battery 11-25%, while no IPI indicator on at this time it is possible it is on the verge of needing replacement. We will see her back soon for another VNS check. - Behavioral changes: Resolved on decreased Keppra. No changes today! Next Encounter in This Dept: 02/12/2024 Date of Last Refill (for each medication): 01/09/24 Status of request: Pended Allergies Allergen Reactions Amoxicillin-Pot Clavulanate Rash Risedronate Sodium Nausea And Vomiting Kourtney Banuelos RN 01/18/24 11:35 AM documented in this encounter Plan of Treatment Upcoming Encounters Date Type Department Care Team (Late st Contact Info) Description 08/06/2024 11:00 AM EST [place] [address] Sarah Serra APRN [facility] [place] [address] documented as of this encounter Goals Goal [...] epilepsy documented in this encounter Care Teams Aircraft Fuselage Framer Relationship Specialty Start Date End Date Luis Manuel Blanca MD [address] [place] [address] [address] [facility] [address] [place] [address] PCP - General Family Medicine 06/24/16 documented as of this encounter
--- OUTSIDE RECORDS SUMMARY | 2024-06-28 21:58 | XMS_ITS | Encounter Summary ---
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 For documentation purposes: I received and disposed of 71 of Cinthya's 1mg lorazepam tabs as they were . Lulu now has 5 lorazepam 1mg tabs for Cinthya. A new script to an additional 10 1mg tabs was sent today. documented in this encounter Progress Notes * Sarah Serra APRN - 04/11/2023 10:30 AM EDT Images from the original note were not included. Subjective: [facility] TELEHEALTH FOLLOW UP NOTE Patient Active Problem List Diagnosis Pride-Gastaut syndrome CAP (community acquired pneumonia) Epilepsy with [...] Triggers:Excitement, cold, sometimes unprovoked Current Outpatient Medications: budesonide (Uceris) [address], ER tablet, , Disp: , Rfl: diphenoxylate-atropine (Lomotil) 2.5-0.025 mg tablet, , Disp: , Rfl: albuteroL (ACCUNEB) [...] Rfl: QUEtiapine (SEROQUEL) 50 mg Tablet, Take 50 mg by mouth nightly., Disp: , Rfl: [...] mg by mouth daily., Disp: , Rfl: diazePAM (Valtoco) 10 mg/spray (0.1 mL) [place], Non-Aerosol, 10 mg by Nasal route as needed (seizureclusters (call if ineffective) Max dose 10mg daily unless instucted otherwise by office.)., Disp: 2each, Rfl: 3 BanzeL 400 mg tablet, TAKE 3 TABLETS BY MOUTH EVERY MORNING TAKE 2 TABLETS AT NOON AND TAKE 3 TABLETS AT BEDTIME, Disp: 224 tablet, Rfl: 11 cannabidioL (Epidiolex) 100 mg/mL Solution, 4.3 ml twice daily., Disp: 258 mL, Rfl: 11 cholecalciferol, Vitamin D3, (Vitamin D) [...] If still not effective please call neurologist interventionist. Max 4mg daily. Take 0.5-1mg prior to seizure triggering activity., Disp: 10 tablet, Rfl: 0 Onfi 20 mg tablet, Take 1 tablet by mouth every evening., Disp: 30 tablet, Rfl: 5 PHENobarbitaL (Luminal) 60 mg tablet, Take 2 tablets by mouth nightly., Disp: 60 tablet, Rfl: 5 sertraline (Zoloft) 100 mg tablet, TAKE ONE TABLET BY MOUTH EVERY DAY, Disp: 90 tablet, Rfl: 3 zonisamide (Zonegran) 100 mg capsule, Take 1 tab AM and 2 tabs PM (please bubble pack), Disp: 84 capsule, Rfl: 11 Past AEDs: Phenobarbital, Lorazepam, Trileptal, Depakote, Lamictal [...] seizures disabling? No Pt presents with caregiver, lulu. Continues to do great! One seizure in the past year. Mood is very good, laughs and jokes all the time, she is a ton of fun and goes everywhere now! It used to be she would have seizures when she got in the car and then she would be tired the whole time, recently [place] time [place] the fair. Tolerating meds well Had trouble getting her valtoco filled. Using CPAP nightly Lulu states rarely uses ativan now (they are from the last 2 years), has 76 and needs to count them monthly- doesn't know how to dispose of them because it all has to be documented in her books. Thinks okay if I take and dispose of them as long as I can provide documentation for the agency. Social History: Social History Socioeconomic History Marital [...] on file Physical Activity: Not on file Housing Stability: Not on file Social Factors: QEPILEPSY SOCIAL FACTORS 04/11/23 Employment status: No Currently driving: No Considering No Past Medical History: Diagnosis Date Hyperlipidemia MR (mental retardation) RIA (obstructive sleep apnea) Seizures Current Outpatient Medications on File Prior to Visit Medication Sig Dispense Refill budesonide (Uceris) [address], ER tablet diphenoxylate-atropine (Lomotil) 2.5-0.025 mg tablet [DISCONTINUED] cannabidioL (Epidiolex) 100 mg/mL Solution 4.3 ml twice daily. 258 mL 0 [DISCONTINUED] Onfi 20 mg tablet TAKE 1 TABLET BY MOUTH EVERY EVENING 30 tablet 3 [DISCONTINUED] PHENobarbitaL (Luminal) 60 mg tablet TAKE 2 TABLETS BY MOUTH NIGHTLY 60 tablet 3 [DISCONTINUED] levETIRAcetam (Keppra) 1,000 mg tablet TAKE 1 TABLET BY MOUTH TWICE A DAY 60 tablet 3 [DISCONTINUED] diazePAM (Valtoco) 10 mg/spray (0.1 mL) [place], Non-Aerosol 10 mg by Nasal route as needed (seizure clusters (call if ineffective) Max dose 10mg daily unless instucted otherwise by office.). 2 each 3 [DISCONTINUED] BanzeL 400 mg Tablet TAKE 3 TABLETS BY MOUTH EVERY MORNING TAKE 2 TABLETS AT NOON AND TAKE 3 TABLETS AT BEDTIME 224 tablet 11 albuteroL (ACCUNEB) 1.25 mg/3 mL Solution [...] Diarrhea. Maximum 16 mg in 24 hours [DISCONTINUED] zonisamide (Zonegran) 100 mg Capsule Take 3 capsules by mouth nightly. (please bubble pack) (Patient taking differently: Take 100 mg by mouth 2 times daily. (please bubble pack). 2 caplets in the evening.) 84 capsule 11 [DISCONTINUED] sertraline (ZOLOFT) 100 mg Tablet TAKE ONE TABLET BY MOUTH EVERY DAY 90 tablet 3 clotrimazole-betamethasone (LOTRISONE) 1-0.05 % Cream Apply 1 Application topically as needed. 0 NYSTOP Powder Apply 1 Application topically as needed. 0 [DISCONTINUED] LORazepam (ATIVAN) 1 mg Tablet Take 1-2 tablets at onset of seizure symptoms, if ineffective after 30 minutes may repeat dose. If still not effective please call neurologist interventionist. Max 4mg daily. Take 0.5-1mg prior to seizure triggering activity. 45 tablet 5 [DISCONTINUED] cholecalciferol, Vitamin D3, (VITAMIN D) 1,000 unit Capsule Take 1 capsule by mouth 2 times daily. 60 capsule 5 acetaminophen (TYLENOL) 500 mg Tablet Take 500 mg by mouth 2 times daily. QUEtiapine (SEROQUEL) 50 mg Tablet Take 50 mg by mouth nightly. melatonin 3 mg [...] Objective: Physical Exam: Patient alert and awake, engaged and alert, mood is very good, very excited about her bright green shoes Procedure: VNS not interrogated today Output current: 2.0 milliamps Signal frequency: 20 Hertz Pulse Width:500 microseconds On time:14 sec Off time:1.1 min Autostim activated current: 2.0 mA Autostim on time: 30 seconds. Autostim pulse width: 500 microseconds Magnet activated current: 2.25 mA Magnet on time: 30 seconds. Magnet pulse width: 500 microseconds Battery 11-25% no IPI indicator Assessment and Plan: - Epilepsy: Doing great! Longest she has every gone without a seizure and mood and energy improved.May need VNS replaced soon, will decrease time [...] agrees with plan. - [facility] TIME-BASED BILLING STATEMENT On the day of this encounter, I the medical provider spent a total of at least 30 minutes providingthis patient's care. This includes time spent sucz-[id number]-fptw with the patient performing independent evaluation, examination, education and counseling. It also includes non ztll-wy-svxz time preparing to see the patient, reviewing the charts, reviewing and interpreting labs/ imaging studies, coordinating care with other healthcare providers, and documentation. It was a pleasure speaking with them today . Sarah Serra APRN [facility] Epilepsy Program Department of Neurology This note was created using voice recognition software. It was reviewed for major content, however there may be some small discrepancies due to the limitations of the software program. Patient Instructions For documentation purposes: I received and disposed of 71 of Cinthya's 1mg lorazepam tabs as they were . Lulu now has 5 lorazepam 1mg tabs for Cinthya. A new script to an additional 10 1mg tabs was sent today. documented in this encounter Plan of Treatment Upcoming Encounters Date Type Department Care Team (Late st Contact Info) Description 08/06/2024 11:00 AM EST Office [place] [address] Sarah Serra APRN [facility] [place] [address] documented as of this encounter Goals Goal Patient Goal Type Associated Problems Recent Progress Patient-Stated? 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
--- OUTSIDE RECORDS SUMMARY | 2024-06-28 21:58 | XMS_ITS | Encounter Summary ---
[place] [address] Care Team Providers Care Marketing Sales Manager Name Role Phone Luis Manuel Blanca MD Primary Care Provider [phone] Reason for Visit * Reason Onset Date Comments Appointment 02/21/2023 Encounter Details Date Type Department Care Team (Late st Contact Info) Description 02/21/2023 Telephone [place] [phone] Sarah Serra APRN [facility] [place] [address] Appointment Social History Tobacco Use Types Packs/Day [...] encounter Miscellaneous Notes * Telephone Encounter - Fifi Mendoza - 02/27/2023 11:18 AM EDT Patient rescheduled to 04/11/23. * Telephone Encounter - Fifi Mendoza - 02/21/2023 11:32 AM EDT Reschedule 03/07/23 follow up visit with DINO Serra to next available. documented in this encounter Plan of Treatment Upcoming Encounters Date Type Department Care Team (Late st Contact Info) Description 08/06/2024 11:00 AM EST Office [place] [address] Sarah Serra APRN [facility] [place] [address] documented as of this encounter Goals Goal Patient Goal Type Associated Problems Recent Progress Patient-Stated? Author [facility] Medication Compliance and Understanding Patient Facing Action Plan On track( 024 12:05 PM EDT) No Arnel Benitez, [facility] Note: Patient's specific desired goal: reduce number of seizures, with secondary goal of being able to taper some of the other AEDs being used Measured by: seizure record, side effects exhibited Time-frame to meet goal: 3-6 months documented as of this encounter Visit Diagnoses Not on filedocumented in this encounter Care Teams Marketing Sales Manager Relationship Specialty Start Date End Date Luis Manuel Blanca MD [address] [place] [address] PCP - General Family Medicine 06/24/16 documented as of this encounter
--- OUTSIDE RECORDS SUMMARY | 2024-06-28 21:58 | XMS_ITS | Encounter Summary ---
[place] [address] Care Team Providers Care Director Sales Support Name Role Phone Luis Manuel Blanca MD Primary Care Provider [phone] Encounter Details Date Type Department Care Team (Late st Contact Info) Description 11/03/2023 Specialty [place] [address] John Gil, [facility] Social History Tobacco Use Types Packs/Day [...] encounter Progress Notes * John Gil - 11/03/2023 4:34 PM EDT Clinical Management Plan: Refill Specialty Pharmacy Consultation; John Gil Comprehensive Medication Management (CMM) Cinthya Arriolatoniobrianna Ms. Cinthya Brown is a 63 y.o. [...] And Vomiting Medication Reconciliation Discrepancies (compared to [facility] med list) No Specialty Pharmacy Refill Questionnaire More data exists 11/03/2023 Refill Questionnaire What is the name of the specialty medication you are refilling? Epidiolex Are you taking any new medications? No Any new medical condition? No Any new allergies? No Any new side effects that are bothersome? No What date will you need this fill by? 11/10/2023 Adherence: Any missed doses? No Patient understands no changes to current drug regimen were made. John Gil 11/03/23 4:36 PM documented in this encounter Plan of Treatment Upcoming Encounters Date Type Department Care Team (Late st Contact Info) Description 08/06/2024 11:00 AM EST [place] [address] Sarah Serra [facility] [place] [address] documented as of this encounter Goals Goal Patient Goal Type Associated Problems Recent Progress Patient-Stated? Author [facility] Medication Compliance and Understanding Patient Facing Action Plan On track( 024 12:05 PM EDT) No Arnel Benitez, [facility] Note: Patient's specific desired goal: reduce number of seizures, with secondary goal of being able to taper some of the other AEDs being used Measured by: seizure record, side effects exhibited Time-frame to meet goal: 3-6 months documented as of this encounter Visit Diagnoses Not on filedocumented in this encounter Care Teams Director Sales Support Relationship Specialty Start Date End Date Luis Manuel Blanca MD [address] [place] [address] [address] [place] [address] PCP - General Family Medicine 06/24/16 documented as of this encounter
--- OUTSIDE RECORDS SUMMARY | 2024-06-28 21:58 | XMS_ITS | Encounter Summary ---
[place] [address] Care Team Providers Care City Distribution Clerk Name Role Phone Luis Manuel Blanca MD Primary Care Provider [phone] [phone] Reason for Visit * Reason Comments Medication Refill Epidiolex 100 mg/ml soln Encounter Details Date Type Department Care Team (Late st Contact Info) Description 10/10/2023 Specialty [place] [phone] Junior Daily, [facility] Social History Tobacco Use Types Packs/Day [...] encounter Progress Notes * Junior Daily - 10/10/2023 4:55 PM EST Clinical Management Plan: Refill Specialty Pharmacy Consultation; Junior Daily Comprehensive Medication Management (CMM) Cinthya Arriolatoniobrianna Ms. Cinthya Brown is a 63 y.o. (1960) female who was contacted in regard to a specialty medication refill reminder. The caregiver. Caregiver name: Crescencio requested a refill of Epidiolex . A review of the medication therapy was [...] And Vomiting Medication Reconciliation Discrepancies (compared to [facility] med list) No Specialty Pharmacy Refill Questionnaire More data exists 10/10/2023 Refill Questionnaire What is the name of the specialty medication you are refilling? Epdiolex 100 mg/ml soln Are you taking any new medications? No Any new medical condition? No Any new allergies? No Any new side effects that are bothersome? No What date will you need this fill by? 10/13/2023 Adherence: Any missed doses? No Patient understands no changes to current drug regimen were made. Junior Daily 10/10/23 4:57 PM documented in this encounter Plan of Treatment Upcoming Encounters Date Type Department Care Team (Late st Contact Info) Description 08/06/2024 11:00 AM EST Office [place] [address] Sarah Serra APRN [facility] [place] [address] documented as of this encounter Goals Goal Patient Goal Type Associated Problems Recent Progress Patient-Stated? Author [facility] Medication Compliance and Understanding Patient Facing Action Plan On track( 024 12:05 PM EDT) No Arnel Benitez, [facility] Note: Patient's specific desired goal: reduce number of seizures, with secondary goal of being able to taper some of the other AEDs being used Measured by: seizure record, side effects exhibited Time-frame to meet goal: 3-6 months documented as of this encounter Visit Diagnoses Not on filedocumented in this encounter Care Teams City Distribution Clerk Relationship Specialty Start Date End Date Luis Manuel Blanca MD [address] [place] [address] 1 [place] [address] PCP - General Family Medicine 06/24/16 documented as of this encounter
--- OUTSIDE RECORDS SUMMARY | 2024-06-28 21:58 | XMS_ITS | Encounter Summary ---
[place] [address] Care Team Providers Care Riddler Operator Name Role Phone Luis Manuel Blanca MD Primary Care Provider [phone] [phone] Reason for Visit * Reason Onset Date Comments Medication Refill 01/09/2024 Encounter Details Date Type Department Care Team (Late st Contact Info) Description 01/09/2024 Refill [place] [phone] Sarah Serra APRN [facility] [place] [address] Epilepsy seizure, generalized, convulsive Social History Tobacco [...] Encounter - Tiff Gramajo RN - 01/09/2024 9:35 AM EDT Prescription Renewal Request Name: Cinthya Brown : 1960 Prescription(s) Requested: Requested Prescriptions Pending Prescriptions Disp Refills LORazepam (Ativan) 1 mg tablet 10 tablet 0 Sig: Take 1-2 tablets at onset of seizure symptoms, if ineffective after 30 minutes may repeat dose. If still not effective please call neurologist spinning bath person. Max 4mg daily. Take 0.5-1mg prior to seizure triggering activity. Date of Last Encounter: 11/30/23 Patient alert and awake, she is looking much more like herself, she is back to her normal weight and her skin is plumper and does not look as dry today. She is excited to see examiner and tell her about what she is interested in at the moment. Epilepsy: doing well, no changes at thist time. Next Encounter: 02/12/2024 Date of Last Refill: 04/11/23 Medication category requirements (labs etc): n/a Status of request: Pended Allergies Allergen Reactions Amoxicillin-Pot Clavulanate Rash Risedronate Sodium Nausea And Vomiting Tiff Gramajo RN 01/09/24 9:35 AM * Telephone Encounter - Kristen Caicedo Timo - 01/09/2024 9:27 AM EDT Call Center / [place] Message Prescription Refill Request Clinical [place] message Provider patient sees in Clinic: Maryse Caller and relationship (if other than patient-full name): Lulu Oneida Call back Number: [phone] Ok to leave a message: yes Any issues needing to be addressed prior to medication refill? (ex: dose increase, not at pharmacy): Name of Med: LORazepam (Ativan) Strength of Pills: 1 mg tablet Dosing Directions: Sig: Take 1-2 tablets at onset of seizure symptoms, if ineffective after 30 minutes may repeat dose. If still not effective please call neurologist spinning bath person. Max 4mg daily. Take 0.5-1mg prior to seizure triggering How Patient is Currently Taking Medication: Sig: Take 1-2 tablets at onset of seizure symptoms, if ineffective after 30 minutes may repeat dose. If still not effective please call neurologist spinning bath person. Max 4mg daily. Take 0.5-1mg prior to seizure triggering 30 or 90 Day Supply: --- Pharmacy: [place], [place] Last Appointment: 11/30/23 Next Appointment: (IF CALL IS FROM PATIENT/FAMILY AND THERE IS NO FOLLOW UP SCHEDULED REVIEW CHART TO SEE WHEN APPOINTMENT IS NEEDED AND SCHEDULE BEFORE SENDING MESSAGE) 02/12/2024 Is Patient out of Medication?: Yes documented in this encounter Plan of Treatment Upcoming Encounters Date Type Department Care Team (Late st Contact Info) Description 08/06/2024 11:00 AM EST Office [place] [address] [facility] [place] [address] documented as of this encounter Goals Goal Patient Goal Type Associated Problems Recent Progress Patient-Stated? Author [facility] Medication Compliance and Understanding Patient [...] epilepsy documented in this encounter Care Teams Riddler Operator Relationship Specialty Start Date End Date Luis Manuel Blanca MD [address] [place] [address] [address] PCP - General Family Medicine 06/24/16 documented as of this encounter
--- OUTSIDE RECORDS SUMMARY | 2024-06-28 21:58 | XMS_ITS | Encounter Summary ---
[place] [address] Care Team Providers Care Robotics Mechanic Name Role Phone Luis Manuel Blanca MD Primary Care Provider [phone] [phone] Reason for Visit * Reason Comments Medication Management Encounter Details Date Type Department Care Team (Late st Contact Info) Description 12/12/2022 Specialty [place] [phone] Bj Heck [facility] Social History Tobacco Use Types [...] this encounter Progress Notes * Bj Heck [facility] - 12/12/2022 9:32 AM EDT Clinical Management Plan: Refill Specialty Pharmacy Consultation; Bj Heck [facility] Comprehensive Medication Management (CMM) Cinthya Ed Kevin Ms. Cinthya Brown is a 62 y.o. [...] And Vomiting Medication Reconciliation Discrepancies (compared to [facility] med list) No Specialty Pharmacy Refill Questionnaire 12/12/2022 Refill Questionnaire What is the name of the specialty medication you are refilling? epidiolex Are you taking any new medications? No Any new medical condition? No Any new allergies? No Any new side effects that are bothersome? No What date will you need this fill by? 12/17/2022 Adherence: Any missed doses? No Patient understands no changes to current drug regimen were made. Bj Heck RPH 12/12/22 9:35 AM documented in this encounter Plan of Treatment Upcoming Encounters Date Type Department Care Team (Late st Contact Info) Description 08/06/2024 11:00 AM EST [place] [address] Sarah Serra APRN [facility] [place] [address] documented as of this encounter Goals Goal Patient Goal Type Associated Problems Recent Progress Patient-Stated? Author [facility] Medication Compliance and Understanding Patient Facing Action Plan On track( 024 12:05 PM EDT) No Arnel Benitez [facility] Note: Patient's specific desired goal: reduce number of seizures, with secondary goal of being able to taper some of the other AEDs being used Measured by: seizure record, side effects exhibited Time-frame to meet goal: 3-6 months documented as of this encounter Visit Diagnoses Not on filedocumented in this encounter Care Teams Robotics Mechanic Relationship Specialty Start Date End Date Luis Manuel Blanca MD [address] [place] [address] [address] [facility] [address] [place] [address] PCP - General Family Medicine 06/24/16 documented as of this encounter
--- OUTSIDE RECORDS SUMMARY | 2024-06-28 21:58 | XMS_ITS | Encounter Summary ---
[place] [address] Care Team Providers Care Supervisor Beet End Name Role Phone Luis Manuel Blanca MD Primary Care Provider [phone] [phone] Encounter Details Date Type Department Care Team (Late st Contact Info) Description 06/30/2023 Specialty [place] [address] John Gil, [facility] Social History Tobacco Use Types [...] encounter Progress Notes * John Gil - 06/30/2023 8:55 AM EST Clinical Management Plan: Refill Specialty Pharmacy Consultation; John Gil Comprehensive Medication Management (CMM) Cinthya Brown Ms. Cinthya Brown is a 62 y.o. (1960) female who was contacted in regard to a specialty medication refill reminder. Contact made with patient regarding Epidiolex. A review of the medication [...] And Vomiting Medication Reconciliation Discrepancies (compared to [facility] med list) No Specialty Pharmacy Refill Questionnaire More data exists 06/30/2023 Refill Questionnaire What is the name of the specialty medication you are refilling? Epidiolex Are you taking any new medications? No Any new medical condition? No Any new allergies? No Any new side effects that are bothersome? No What date will you need this fill by? 07/04/2023 Adherence: Any missed doses? No Patient understands no changes to current drug regimen were made. John Gil 06/30/23 8:57 AM documented in this encounter Plan of Treatment Upcoming Encounters Date Type Department Care Team (Late st Contact Info) Description 08/06/2024 11:00 AM EST [place] [address] [address] Serra [facility] [place] [address] documented as of this encounter Goals Goal Patient Goal Type Associated Problems Recent Progress Patient-Stated? Author [facility] Medication Compliance and Understanding Patient Facing Action Plan On track( 024 12:05 PM EDT) No Arnel Benitez, [facility] Note: Patient's specific desired goal: reduce number of seizures, with secondary goal of being able to taper some of the other AEDs being used Measured by: seizure record, side effects exhibited Time-frame to meet goal: 3-6 months documented as of this encounter Visit Diagnoses Not on filedocumented in this encounter Care Teams Supervisor Beet End Relationship Specialty Start Date End Date Luis Manuel Blanca MD [address] [place] [address] PCP - General Family Medicine 06/24/16 documented as of this encounter
--- OUTSIDE RECORDS SUMMARY | 2024-06-28 21:58 | XMS_ITS | Encounter Summary ---
Author Organization [facility] [place] [address] Care Team Providers Care Waste Collection Driver Name Role Phone Luis Manuel Blanca MD Primary Care Provider [phone] [phone] Reason for Visit * Reason Comments Medication Refill Encounter Details Date Type Department Care Team (Late st Contact Info) Description 01/03/2023 [place] [address] Lizzie Solares APRN [facility] [place] [address] Social History Tobacco Use Types Packs/Day Years [...] Telephone Encounter - Tiff Gramajo RN - 01/04/2023 1:23 PM EDT Medication request for : Levetiracetam 1000 mg tablets, Phenobarbital 60 mg tablets, Clobazbam 20 mg tablets Information from Last Rx filled: Levetiracetam Dose, Route, Frequency: As Directed Dispense Quantity: 56 tablet Refills: 0 Note to Pharmacy: Authorized Quantity Exceeded ?? Sig: TAKE 1 TABLET BY MOUTH TWICE A DAY ?? Start Date: 12/02/22 End Date: -- Written Date: 12/02/22 Phenobarbitol Dose: 120 mg Route: Oral Frequency: NIGHTLY Dispense Quantity: 56 tablet Refills: 0 Note to Pharmacy: Maximum Refills Reached ?? Sig: TAKE 2 TABLETS BY MOUTH NIGHTLY ?? Start Date: 12/02/22 End Date: -- Written Date: 12/02/22 Onfi Dose, Route, Frequency: As Directed Dispense Quantity: 28 tablet Refills: 0 Note to Pharmacy: Maximum Refills Reached ?? Sig: TAKE 1 TABLET BY MOUTH EVERY EVENING ?? Start Date: 12/02/22 End Date: -- Written Date: 12/02/22 From last note: Epilepsy: Doing great! Longest she has every [...] 11:00 AM EST [place] [address] Sarah Serra APRN [facility] [place] [address] documented as of this encounter Goals Goal [...] on filedocumented in this encounter Care Teams Waste Collection Driver Relationship Specialty Start Date End Date Luis Manuel Blanca MD [address] [place] [address] PCP - General Family Medicine 06/24/16 documented as of this encounter
--- OUTSIDE RECORDS SUMMARY | 2024-06-28 21:59 | XMS_ITS | Encounter Summary ---
Author Organization [facility] [place] [address] Care Team Providers Care Pediatric Anesthesiologist Name Role Phone Luis Manuel Blanca MD Primary Care Provider [phone] [phone] Reason for Visit * Reason Onset Date Comments Medication Refill 07/06/2021 Encounter Details Date Type Department Care Team (Late st Contact Info) Description 07/06/2021 Ref[place] [address] Sarah Serra APRN [facility] [address] Social History Tobacco Use Types Packs/Day Years [...] Telephone Encounter - Loretta Sutherland CMA - 07/06/2021 10:46 AM EST Surescript request for : Luminal Last rx: 04/14/21 Quantity: 60 Refills: 1 Last appt: 04/14/21 Next appt: 07/14/21 * Telephone Encounter - Cierra Melchor - 07/06/2021 10:35 AM EST Call Center / [place] Message Prescription Refill Request Clinical An/Syq 13 Nav/C2 Operator message Provider patient sees in Clinic: Sarah Serra APRN Caller and relationship (if other than patient-full name): Char pharmacist at [facility] Call back Number: [phone] Ok to leave a message: yes Any issues needing to be addressed prior to medication refill? (ex: dose increase, not at pharmacy): Name of Med: PHENobarbitaL (Luminal) Strength of Pills: 60 mg Dosing Directions: Route: Take 2 tablets by mouth nightly. - Oral How Patient is Currently Taking Medication: Route: Take 2 tablets by mouth nightly. - Oral 30 or 90 Day Supply: 90 day Pharmacy: [facility], [address] [place] [address] Last Appointment: 04/14/21 Next Appointment: (IF CALL IS FROM PATIENT/FAMILY AND THERE IS NO FOLLOW UP SCHEDULED REVIEW CHART TO SEE WHEN APPOINTMENT IS NEEDED AND SCHEDULE BEFORE SENDING MESSAGE) Is Patient out of Medication?: patient will be out tomorrow documented in this encounter Plan of Treatment Upcoming Encounters Date Type Department Care Team (Late st Contact Info) Description 08/06/2024 11:00 AM EST Office [place] [address] Sarah Serra APRN [facility] [place] [address] documented as of this encounter Goals Goal Patient Goal Type Associated Problems Recent Progress Patient-Stated? Author [facility] Medication Compliance and Understanding Patient Facing Action Plan On track( 024 12:05 PM EDT) No Arnel Benitez, [facility] Note: Patient's specific desired goal: reduce number of seizures, with secondary goal of being able to taper some of the other AEDs being used Measured by: seizure record, side effects exhibited Time-frame to meet goal: 3-6 months documented as of this encounter Visit Diagnoses Not on filedocumented in this encounter Care Teams Pediatric Anesthesiologist Relationship Specialty Start Date End Date Luis Manuel Blanca MD [address] [place] [address] PCP - General Family Medicine 06/24/16 documented as of this encounter
--- OUTSIDE RECORDS SUMMARY | 2024-06-28 21:59 | XMS_ITS | Encounter Summary ---
[place] [address] Care Team Providers Care Anglesmith Name Role Phone Luis Manuel Blanca MD Primary Care Provider [phone] [phone] Encounter Details Date Type Department Care Team (Late st Contact Info) Description 09/10/2021 Refill [place] [address] Sarah Serra APRN [facility] [address] Social History Tobacco Use Types Packs/Day Years [...] Telephone Encounter - Loretta Sutherland CMA - 09/10/2021 4:35 PM EST Surescript request for :cannaibdol Last rx: 04/01/21 Quantity: 258 Refills: 5 Last appt: 08/25/21 Next appt: 03/01/22 documented in this encounter Plan of Treatment Upcoming Encounters Date Type Department Care Team (Late st Contact Info) Description 08/06/2024 11:00 AM EST Office Visit [place] [address] Sarah Serra APRN [facility] [place] [address] documented as of this encounter Goals Goal Patient Goal Type Associated Problems Recent Progress Patient-Stated? Author [facility] Medication Compliance and Understanding Patient Facing Action Plan On track( 024 12:05 PM EDT) No Arnel Benitez, [facility] Note: Patient's specific desired goal: reduce number of seizures, with secondary goal of being able to taper some of the other AEDs being used Measured by: seizure record, side effects exhibited Time-frame to meet goal: 3-6 months documented as of this encounter Visit Diagnoses Not on filedocumented in this encounter Care Teams Anglesmith Relationship Specialty Start Date End Date Luis Manuel Blanca MD [address] [place] [address] PCP - General Family Medicine 06/24/16 documented as of this encounter
--- OUTSIDE RECORDS SUMMARY | 2024-06-28 21:59 | XMS_ITS | Encounter Summary ---
[place] [address] Care Team Providers Care It Quality Assurance Analyst Name Role Phone Luis Manuel Blanca MD Primary Care Provider [phone] [phone] Reason for Visit * Reason Onset Date Comments Prior Authorization 06/03/2022 Encounter Details Date Type Department Care Team (Late st Contact Info) Description 06/03/2022 [place] [address] Sarah Serra APRN [facility] [place] [address] Prior Authorization Social History Tobacco Use Types Packs/Day Years [...] Telephone Encounter - Lili Otero RN - 06/07/2022 2:56 PM EDT [facility] made aware that On PA has been approved. Verbalized understanding. * Telephone Encounter - Alondra Gregory 06/07/2022 2:45 PM EDTSummary: Your request has been approved Images from the original note were not included. * Telephone Encounter - Karyna Hernandez - 06/07/2022 9:33 AM EDT [facility] calling in in reference to PO request needed for the Onfi 20 mgTablet. Checking on status please reach out to Wanda today is the deadline for this request. They need to mail these packets out to patient. This securities underwriter is sending this note in an open telephone encounter. Please advise. * Telephone Encounter - Lili Otero RN - 06/03/2022 10:59 AM EDT Report forwarded to Alondra Gregory (PA Coordinator). * Telephone Encounter - Ladonna Pandey RN - 06/03/2022 9:31 AM EDT Copied from CRM #[id number]. Topic: Specialty Dept CRMs - Medication Issues >> Jun 03, 2022 9:10 AM Pete Ibarra wrote: Medication Issues Specialist Sarah Serra APRN Relationship (if other than patient-full name): [facility] Reason for call: Medication Issue (if symptom based used Triage Subtopic) Message/information for the nurse: Prior Auth Name of Medication: Onfi 20 mg Tablet Issue with the medication: Wanda from [facility] states they sent us information regarding need for a prior auth on medication documented in this encounter Plan of Treatment Upcoming Encounters Date Type Department Care Team (Late st Contact Info) Description 08/06/2024 11:00 AM EST [place] [address] Sarah Serra APRN [facility] [place] [address] documented as of this encounter Goals Goal Patient Goal Type Associated Problems Recent Progress Patient-Stated? Author [facility] Medication Compliance and Understanding Patient Facing Action Plan On track( 024 12:05 PM EDT) Arnel Hurd, [facility] Note: Patient's specific desired goal: reduce number of seizures, with secondary goal of being able to taper some of the other AEDs being used Measured by: seizure record, side effects exhibited Time-frame to meet goal: 3-6 months documented as of this encounter Visit Diagnoses Not on filedocumented in this encounter Care Teams It Quality Assurance Analyst Relationship Specialty Start Date End Date Luis Manuel Blanca MD [address] [place] [address] [address] [place] [address] PCP - General Family Medicine 06/24/16 documented as of this encounter
--- OUTSIDE RECORDS SUMMARY | 2024-06-28 21:59 | XMS_ITS | Encounter Summary ---
Author Organization [facility] [place] [address] Care Team Providers Care Flitch Hanger Name Role Phone Luis Manuel Blanca MD Primary Care Provider [phone] Reason for Visit * Reason Onset Date Comments Medication Problem 07/04/2022 Encounter Details Date Type Department Care Team (Late st Contact Info) Description 07/04/2022 [place]ill [place] [address] Sarah Serra APRN [facility] [place] [address] Social History Tobacco Use Types Packs/Day Years [...] Telephone Encounter - Ladonna Pandey RN - 07/05/2022 3:41 PM EST Called and spoke with Lulu , let her know that per Joo Serra it was okay that patient take this, but JOO Serra would like to see patient at a follow up appointment, aerial gunner superintendent would call to schedule. Lulu states that the Keppra is liquid and was wondering if patient could take pills. Patient istaking 1000mg/10ml, taking 10mL BID. Author stated that we could send a new prescription to the pharmacy. * Telephone Encounter - Ladonna Pandey RN - 07/04/2022 5:12 PM EST Copied from [facility] #[id number]. Topic: Specialty Dept CRMs - Medication Issues >> Jul 04, 2022 4:08 PM Shira Smith wrote: Medication Issues Specialist Sarah Serra APRN Relationship (if other than patient-full name): Lulu Arellano- caregiver Reason for call: Medication Issue (if symptom based used Triage Subtopic) Message/information for the nurse: new medication Name of Medication: Keppra 1000mg/10mL oral, 2x per day Issue with the medication: Patient was admitted to [facility] on 07/01 for pneumonia and seizures. Attending provider prescribed medication for patient and gave Lulu prescription for Keppra. Lulu wants to make sure this is ok with Sarah Serra APRN, or if she would like to make any changes. Please return call to Lulu [phone] documented in this encounter Plan of Treatment Upcoming Encounters Date Type Department Care Team (Late st Contact Info) Description 08/06/2024 11:00 AM EST Office [place] [address] Sarah Serra APRN [facility] [place] [address] documented as of this encounter Goals Goal Patient Goal Type Associated Problems Recent Progress Patient-Stated? Author [facility] Medication Compliance and Understanding Patient Facing Action Plan On track( 024 12:05 PM EDT) No Arnel Benitez, [facility] Note: Patient's specific desired goal: reduce number of seizures, with secondary goal of being able to taper some of the other AEDs being used Measured by: seizure record, side effects exhibited Time-frame to meet goal: 3-6 months documented as of this encounter Visit Diagnoses Not on filedocumented in this encounter Care Teams Flitch Hanger Relationship Specialty Start Date End Date Luis Manuel Blanca MD [address] [place] [address] PCP - General Family Medicine 06/24/16 documented as of this encounter
--- OUTSIDE RECORDS SUMMARY | 2024-06-28 21:59 | XMS_ITS | Encounter Summary ---
[place] [address] Care Team Providers Care Foundry Process Engineer Name Role Phone Luis Manuel Blanca MD Primary Care Provider [phone] Encounter Details Date Type Department Care Team (Late st Contact Info) Description 02/16/2022 [place] [address] Sarah Serra APRN [facility] [place] [address] Social History Tobacco Use Types Packs/Day Years [...] Telephone Encounter - Loretta Sutherland CMA - 02/16/2022 10:39 AM EDT Surescript request for : expidiolex Last rx: 09/10/21 Quantity: 258 Refills: 5 Last appt: 08/25/21 Next appt: 03/23/22 documented in this encounter Plan of Treatment Upcoming Encounters Date Type Department Care Team (Late st Contact Info) Description 08/06/2024 11:00 AM EST [place] [address] Sarah Serra APRN [facility] [place] [address] documented as of this encounter Goals Goal Patient Goal Type Associated Problems Recent Progress Patient-Stated? Author [facility] Medication Compliance and Understanding Patient [...] on filedocumented in this encounter Care Teams Foundry Process Engineer Relationship Specialty Start Date End Date Luis Manuel Blanca MD [address] [place] [address] PCP - General Family Medicine 06/24/16 documented as of this encounter
--- OUTSIDE RECORDS SUMMARY | 2024-06-28 21:59 | XMS_ITS | Encounter Summary ---
Author Organization [facility] Address [facility] [facility] [place] [address] Care Team Providers Care Lab Director Name Role Phone Luis Manuel Blanca MD Primary Care Provider [phone] Encounter Details Date Type Department Care Team (Late st Contact Info) Description 02/12/2022 [place] [address] Arnel Yousif MD [facility] [place] [address] Social History Tobacco Use Types Packs/Day Years [...] encounter Miscellaneous Notes * Telephone Encounter - Arnel Yousif MD - 02/12/2022 6:49 PM EDT NEUROLOGY TELEPHONE NOTE I received a call from him and his hazardous materials tanker driver today regarding some new breakthrough seizure she had had. According to her hazardous materials tanker driver she normally has about 1 seizure per week. She had gone a several week interval without having any seizures at all. Today and in the early afternoon she had her first seizure. It lasted for about a minute or so and she received 2 mg of lorazepam. Following this the seizure abated she returned to her baseline, and the hazardous materials tanker driver thought nothing of it at the time. She then had a second seizure about an hour later that lasted less than a minute, but she received an additional dose of 2 mg of lorazepam. Again the patient returned to baseline, and and no other further interventions were needed. The patient had a third seizure, and this resolved after several seconds, and the hazardous materials tanker driver called in for further recommendations. The hazardous materials tanker driver reports no new runny nose, No new cough or no changes in urination. 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 She reports that ultimately she feels that she is totally fine, but that she was concerned with the the number of the seizures. She reports that previous episodes that have led to hospitalization usually result in several [id number] seizures without return to baseline, and this is notably different from that. She states that she feels overall reassured that nothing more sinister is going on but wanted to call into the neurology team. I informed her that without being able to evaluate many myself I could not provide a formal medical recommendation, however if she had quit seizing at this time and returned to her total neurologic baseline, it was reasonable to continue to observe her. The hazardous materials tanker driver voiced understanding and noted that she would continu e to watch and that if she did have a recurrent seizure that she would take her to the nearest hospital for work-up and management. Arnel Yousif MD documented in this encounter Plan of Treatment Upcoming Encounters Date Type Department Care Team (Late st Contact Info) Description 08/06/2024 11:00 AM EST [place] [address] Sarah Serra APRN [facility] [place] [address] documented as of this encounter Goals Goal Patient Goal Type Associated Problems Recent Progress Patient-Stated? Author [facility] Medication Compliance and Understanding Patient Facing Action Plan On track( 024 12:05 PM EDT) Arnel Hurd, [facility] Note: Patient's specific desired goal: reduce number of seizures, with secondary goal of being able to taper some of the other AEDs being used Measured by: seizure record, side effects exhibited Time-frame to meet goal: 3-6 months documented as of this encounter Visit Diagnoses Not on filedocumented in this encounter Care Teams Lab Director Relationship Specialty Start Date End Date Luis Manuel Blanca MD [address] [place] [address] PCP - General Family Medicine 06/24/16 documented as of this encounter
--- OUTSIDE RECORDS SUMMARY | 2024-06-28 21:59 | XMS_ITS | Encounter Summary ---
[place] [address] Care Team Providers Care Nutrition Worker Name Role Phone Luis Manuel Blanca MD Primary Care Provider [phone] Reason for Visit * Reason Onset Date Comments TeleHealth 08/31/2022 Medication and a llergy review. Encounter Details Date Type Department Care Team (Late st Contact Info) Description 08/31/2022 [place] [address] Sarah Serra, SLICE CUTTING MACHINE OPERATOR HELPER [facility] [place] [address] TeleHealth (Medication and allergy review. ) Social History Tobacco Use Types Packs/Day Years [...] Telephone Encounter - Tiff Gramajo RN - 08/31/2022 10:28 AM EST Spoke to this patient's caregiver by phone to review her medications and allergies prior to her upcoming tele-appointment with the Neurology provider. Medications and allergies reviewed, verified andupdated as needed. documented in this encounter Plan of Treatment Upcoming Encounters Date Type Department Care Team (Late st Contact Info) Description 08/06/2024 11:00 AM EST [place] [address] Sarah Serra APRN [facility] [place] [address] documented as of this encounter Goals Goal Patient Goal Type Associated Problems Recent Progress Patient-Stated? Author Home Medication Compliance and Understanding Patient Facing Action Plan On track( 024 12:05 PM EDT) Arnel Hurd, [facility] Note: Patient's specific desired goal: reduce number of seizures, with secondary goal of being able to taper some of the other AEDs being used Measured by: seizure record, side effects exhibited Time-frame to meet goal: 3-6 months documented as of this encounter Visit Diagnoses Not on filedocumented in this encounter Care Teams Nutrition Worker Relationship Specialty Start Date End Date Luis Manuel Blanca MD [address] [facility] [address] [place] [address] PCP - General Family Medicine 06/24/16 documented as of this encounter
--- OUTSIDE RECORDS SUMMARY | 2024-06-28 21:59 | XMS_ITS | Encounter Summary ---
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 [place]-Gastaut syndrome ??? CAP (community acquired pneumonia) ??? Epilepsy with status epilepticus ??? Seizure ??? Status epilepticus ??? Sleep apnea ??? Mental retardation I saw Cinthya Brown today for a scheduled follow-up evaluation. Patient came to the office with her caregiver. CC: Epilepsy Behavioral disturbance. HPI: Onset: 6 months Frequency: 0-3 times a week Semiology: #1: Arms and legs jerk, face twitches, eyes roll up, bites tongue, deep breathing, last for about aminute. #2: Eyes flutter with chewing motion, often with jerking #3: One arm jerking alone Triggers:Excitement, cold, sometimes unprovoked Current AEDS: Zonegran 200mg QHS,Trileptal 600mg TID, Phenobarb 120mg qhs, Ativan PRN, VNS Recent Levels: Past AEDs: Phenobarbital, Lorazepam, Trileptal, Depakote, Lamictal [...] history of epilepsy. Interval history: Seizure Control: QEpilepsy 08/27/2014 Last seizure was: Within past year Number of seizures in past month: 0 Were seizures disabling? No I spoke with Cinthya Brown and her caregiver Fifi today (patient with significant developmentaldelay and is minimally verbal) for a phone visit in lieu of our regular follow up due to risk of coronavirus. Lulu reports that Alix is doing quite well, she may have one very small seizure a week. They are very happy with this result as it represents very good control for this patient. Lulu reports that she had covid, stayed away for 10 days once she found out, Cinthya's cousins were visiting and they also ended up with covid (separate exposure), but Cinthya did not appear to get ill despite this, she also did not have any increase in seizures around that time. Lulu is concerned about whether or not to get her a booster- worried about seizures, but pt only had the J&J and they are concerned about the drop off in immunity. Social History: Social History Socioeconomic History ??? Marital status: Single Spouse name: Not on file ??? Number of children: Not on file ??? Years of education: Not on file ??? Highest education level: Not on file Occupational History ??? Not on file Tobacco Use ??? Smoking status: Never Smoker ??? Smokeless tobacco: Never Used Vaping Use ??? Vaping Use: Never used Substance and Sexual Activity ??? Alcohol use: No ??? Drug use: Yes Comment: Hemp Oil ??? Sexual activity: Not on file Comment: deferred Other Topics Concern ??? Not on file Social History Narrative ??? Not on file Social Determinants of Health Financial Resource Strain: Not on file Food Insecurity: Not on file Transportation Needs: Not on file Physical Activity: Not on file Housing Stability: Not on file Social Factors: QEPILEPSY SOCIAL FACTORS 08/27/21 Employment status: No Currently driving: No Considering No Past Medical History: Diagnosis Date ??? Hyperlipidemia ??? MR (mental retardation) ??? RIA (obstructive sleep apnea) ??? Seizures Current Outpatient Medications on File Prior to Visit Medication Sig Dispense Refill ??? PHENobarbitaL (Luminal) 60 mg Tablet Take 2 tablets by mouth nightly. 180 tablet 1 ??? BanzeL 400 mg Tablet TAKE 3 TABLETS BY MOUTH EVERY MORNING, TAKE 2 TABLETS DAILY AT LUNCH AND TAKE 3 TABLETS EVERY NIGHT AT BEDTIME 240 tablet 5 ??? diazePAM (Valtoco) 10 mg/spray (0.1 mL) Reserve, Non-Aerosol 10 mg by Nasal route as needed (seizure clusters (call if ineffective) Max dose 10mg daily unless instucted otherwise by office.). 2 each 3 ??? Onfi 20 mg Tablet Take 1 tablet by mouth nightly. 30 tablet 5 ??? sertraline (ZOLOFT) 100 mg Tablet TAKE ONE TABLET BY MOUTH EVERY DAY 90 tablet 3 ??? TrileptaL 300 mg Tablet TAKE 1 TABLET BY MOUTH DAILY AT NOON 90 tablet 3 ??? TrileptaL 600 mg Tablet Take 1 tablet by mouth 2 times daily. Brand name only 180 tablet 3 ??? cannabidioL (Epidiolex) 100 mg/mL Solution 4.3 ml twice daily. 258 mL 5 ??? clotrimazole-betamethasone (LOTRISONE) 1-0.05 % Cream Apply 1 Application topically as needed. 0 ??? NYSTOP Powder Apply 1 Application topically as needed. 0 ??? LORazepam (ATIVAN) 1 mg Tablet Take 1-2 tablets at onset of seizure symptoms, if ineffective after 30 minutes may repeat dose. If still not effective please call neurologist supervisor mirror fabrication. Max 4mg daily. Take 0.5-1mg prior to seizure triggering activity. 45 tablet 5 ??? cholecalciferol, Vitamin D3, (VITAMIN D) 1,000 unit Capsule Take 1 capsule by mouth 2 times daily. 60 capsule 5 ??? acetaminophen (TYLENOL) 500 mg Tablet Take 500 mg by mouth 2 times daily. ??? QUEtiapine (SEROQUEL) 50 mg Tablet Take 50 mg by mouth nightly. ??? melatonin 3 mg Tablet Take 6 mg by mouth nightly. ??? furosemide (LASIX) 20 mg Tablet Take 20 mg by mouth daily. ??? loratadine (CLARITIN) 10 mg Tablet Take 10 mg by mouth daily as needed for Allergies. ??? esomeprazole (NEXIUM) 40 mg Capsule, Delayed Release(E.C.) Take 40 mg by mouth 2 times daily. Reported on 11/18/2016 ??? ferrous sulfate 325 mg (65 mg iron) Tablet Take 325 mg by mouth daily. ??? atorvastatin (LIPITOR) 40 mg tablet Take 40 mg by mouth daily. No current facility-administered medications on file prior to visit. Allergies Allergen Reactions ??? Amoxicillin-Pot Clavulanate Rash ??? Risedronate Sodium Nausea And Vomiting Objective: Physical Exam: NA Procedure: VNS not interrogated today Output current: 2.0 milliamps Signal frequency: 20 Hertz Pulse Width:500 microseconds On time:14 sec Off time:1.1 min Autostim activated current: 2.0 mA Autostim on time: 30 seconds. Autostim pulse width: 500 microseconds Magnet activated current: 2.25 mA Magnet on time: 30 seconds. Magnet pulse width: 500 microseconds Assessment and Plan: - Epilepsy: Current seizure frequency represents good control for this patient, no changes - Vaccine: Advised that despite some people havign seizures following their boosters, we still recommend them for our epilepsy patients.From a seizure point of view it is more dangerous for epilepsy pts to get Covid itself, than the vaccine. However, any fever can lower seizure threshold- so if side effects develop, take acetaminophen or NSAIDs as needed. Plan to lay low/monitor closely the day of/day following the injection. - Screen for medication toxicity: Reviewed labs, levels okay. - The patient is currently not a [...] Caregiver verbalizes understanding and agrees with plan. Total time of telephone call: 10 It was a pleasure speaking with them today . Sarah Serra APRN [facility] Department of Neurology documented in this encounter Plan of Treatment Upcoming Encounters Date Type Department Care Team (Late st Contact Info) Description 08/06/2024 11:00 AM EST [place] [address] Sarah Serra APRN [facility] [place] [address] documented as of this encounter Goals Goal Patient Goal Type Associated Problems Recent Progress Patient-Stated? 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
--- OUTSIDE RECORDS SUMMARY | 2024-06-28 21:59 | XMS_ITS | Encounter Summary ---
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 Linwood-Gastaut syndrome ??? CAP (community acquired pneumonia) ??? Epilepsy with status epilepticus ??? Seizure ??? Status epilepticus ??? Sleep apnea ??? Mental retardation I saw Cinthya Brown today for a scheduled follow-up evaluation. CC: Epilepsy Behavioral disturbance. HPI: Onset: 6 months Frequency: 0-3 times a week Semiology: #1: Arms and legs jerk, face twitches, eyes roll up, bites tongue, deep breathing, last for about aminute. #2: Eyes flutter with chewing motion, often with jerking #3: One arm jerking alone Triggers:Excitement, cold, sometimes unprovoked Current Outpatient Medications: ??? albuteroL (ACCUNEB) 1.25 mg/3 mL Solution for Nebulization, INHALE THE CONTENTS OF ONE VIAL VIANEBULIZER FOUR TIMES A DAY NEEDED, Disp: , Rfl: ??? bisacodyl EC (Dulcolax) 5 mg Tablet, Delayed Release (E.C.), 5 mg daily as needed., Disp: , Rfl: ??? ondansetron (ZUPLENZ ORAL), ondansetron 4MG Tablet 1 Tab PO q8 hr PRN, Disp: , Rfl: ??? polyethylene glycoL (Miralax) 17 gram Powder in Packet, daily as needed., Disp: , Rfl: ??? loperamide (IMODIUM A-D) 2 mg Tablet, Take 2 mg by mouth 4 times daily as needed for Diarrhea. Maximum 16 mg in 24 hours, Disp: , Rfl: ??? cannabidioL (Epidiolex) 100 mg/mL Solution, 4.3 ml twice daily., Disp: 258 mL, Rfl: 5 ??? levETIRAcetam (Keppra) 1,000 mg Tablet, Take 1 tablet by mouth 2 times daily., Disp: 180 tablet, Rfl: 0 ??? PHENobarbitaL (Luminal) 60 mg Tablet, TAKE 2 TABLETS BY MOUTH NIGHTLY, Disp: 180 tablet, Rfl: 1 ??? Onfi 20 mg Tablet, TAKE 1 TABLET BY MOUTH EVERY EVENING, Disp: 90 tablet, Rfl: 1 ??? zonisamide (Zonegran) 100 mg Capsule, Take 3 capsules by mouth nightly. (please bubble pack) (Patient taking differently: Take 100 mg by mouth 2 times daily. (please bubble pack). 2 caplets in the evening.), Disp: 84 capsule, Rfl: 11 ??? BanzeL 400 mg Tablet, TAKE 3 TABLETS BY MOUTH EVERY MORNING TAKE 2 TABLETS BY MOUTH AT NOON ANDTAKE 3 TABLETS BY MOUTH AT BEDTIME, Disp: 720 tablet, Rfl: 1 ??? diazePAM (Valtoco) 10 mg/spray (0.1 mL) [place], Non-Aerosol, 10 mg by Nasal route as needed (seizure clusters (call if ineffective) Max dose 10mg daily unless instucted otherwise by office.)., Disp: 2 each, Rfl: 3 ??? sertraline (ZOLOFT) 100 mg Tablet, TAKE ONE TABLET BY MOUTH EVERY DAY, Disp: 90 tablet, Rfl: 3 ??? clotrimazole-betamethasone (LOTRISONE) 1-0.05 % Cream, Apply 1 Application topically as needed., Disp: , Rfl: 0 ??? NYSTOP Powder, Apply 1 Application topically as needed., Disp: , Rfl: 0 ??? LORazepam (ATIVAN) 1 mg Tablet, Take 1-2 tablets at onset of seizure symptoms, if ineffective after 30 minutes may repeat dose. If still not effective please call neurologist graphics production specialist. Max 4mg daily. Take 0.5-1mg prior to seizure triggering activity., Disp: 45 tablet, Rfl: 5 ??? cholecalciferol, Vitamin D3, (VITAMIN D) 1,000 unit Capsule, Take 1 capsule by mouth 2 times daily., Disp: 60 capsule, Rfl: 5 ??? acetaminophen (TYLENOL) 500 mg Tablet, Take 500 mg by mouth 2 times daily., Disp: , Rfl: ??? QUEtiapine (SEROQUEL) 50 mg Tablet, Take 50 mg by mouth nightly., Disp: , Rfl: ??? melatonin 3 mg Tablet, Take 6 mg by mouth nightly., Disp: , Rfl: ??? loratadine (CLARITIN) 10 mg Tablet, Take 10 mg by mouth daily as needed for Allergies., Disp: ,Rfl: ??? esomeprazole (NEXIUM) 40 mg Capsule, Delayed Release(E.C.), Take 40 mg by mouth daily. Reportedon 11/18/2016, Disp: , Rfl: ??? ferrous sulfate 325 mg (65 mg iron) Tablet, Take 325 mg by mouth daily., Disp: , Rfl: ??? atorvastatin (LIPITOR) 40 mg tablet, Take 40 [...] developmentaldelay and is minimally verbal) for a telehealth visit in lieu of our regular follow up due to coronavirus pandemic. Doing really well, mood is great and she is more engaged, people have been mentioning it when they come see her. They are actually hoping to be able to stay on the Keppra. They were able to get her banzel approved and she was never off of it. They know she I son a a lot of meds but they have never seen her this good before, she is alert andhappy, doesn't fall asleep at the table of ask to go to bed at 3pm. Also worried to make any changes now because they have all been sick lately Social History: Social History Socioeconomic History ??? Marital status: Single Spouse name: Not on file ??? Number of children: Not on file ??? Years of education: Not on file ??? Highest education level: Not on file Occupational History ??? Not on file Tobacco Use ??? Smoking status: Never ??? Smokeless tobacco: Never Vaping Use ??? Vaping Use: Never used [...] on file Social Factors: QEPILEPSY SOCIAL FACTORS 09/01/22 Employment status: No Currently driving: No Considering No Past Medical History: Diagnosis Date ??? Hyperlipidemia ??? MR (mental retardation) ??? RIA (obstructive sleep apnea) ??? Seizures Current Outpatient Medications on File Prior to Visit Medication Sig Dispense Refill ??? albuteroL (ACCUNEB) 1.25 mg/3 mL Solution [...] ml twice daily. 258 mL 5 ??? levETIRAcetam (Keppra) 1,000 mg Tablet Take 1 tablet by mouth 2 times daily. 180 tablet 0 ??? PHENobarbitaL (Luminal) 60 mg Tablet TAKE [...] caplets in theevening.) 84 capsule 11 ??? BanzeL 400 mg Tablet TAKE 3 TABLETS BY MOUTH EVERY MORNING TAKE 2 TABLETS BY MOUTH AT NOON AND TAKE 3 TABLETS BY MOUTH AT BEDTIME 720 tablet 1 ??? diazePAM (Valtoco) 10 mg/spray (0.1 mL) [place], Non-Aerosol 10 mg by Nasal route as [...] If still not effective please call neurologist graphics production specialist. Max 4mg daily. Take 0.5-1mg prior to [...] Physical Exam: Patient alert and awake, she does appear more alert and engaged today, mood is very good, and can show me where her nose is, laughs at jokes, seems happy. Procedure: VNS not interrogated today Output current: 2.0 milliamps Signal frequency: 20 Hertz Pulse Width:500 microseconds On time:14 sec Off time:1.1 min Autostim activated current: 2.0 mA Autostim on time: 30 seconds. Autostim pulse width: 500 microseconds Magnet activated current: 2.25 mA Magnet on time: 30 seconds. Magnet pulse width: 500 microseconds Assessment and Plan: - Epilepsy: Doing great! [...] understanding and agrees with plan. Total time spent day of service on discussion, chart review and documenation.: 15 min It was a pleasure speaking with them today . Sarah Serra APRN [facility] Epilepsy Program Department of Neurology This note was created using voice recognition software. It was reviewed for major content, however there may be some small discrepancies due to the limitations of the software program. documented in this encounter Plan of Treatment Upcoming Encounters Date Type Department Care Team (Late st Contact Info) Description 08/06/2024 11:00 AM EST [place] [address] Sarah Serra APRN [facility] [place] [address] documented as of this encounter Goals Goal Patient Goal Type Associated Problems Recent Progress Patient-Stated? 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
--- OUTSIDE RECORDS SUMMARY | 2024-06-28 21:59 | XMS_ITS | Encounter Summary ---
[place] [address] Care Team Providers Care Fur Designer Name Role Phone Luis Manuel Blanca MD Primary Care Provider [phone] Reason for Visit * Reason Comments Medication Management Encounter Details Date Type Department Care Team (Late st Contact Info) Description 07/14/2022 Specialty [place] [id number] Bj Heck [facility] Social History Tobacco Use Types [...] this encounter Progress Notes * Bj Heck [facility] - 07/14/2022 9:38 AM EST Clinical Management Plan: Refill Specialty Pharmacy Consultation; Bj Heck [facility] Comprehensive Medication Management (CMM) Cinthya Brown Ms. Cinthya Brown is a 61 y.o. (1960) female who was contacted in [...] medication be held: No Assessment and Recommendations: Medication Management Type of Medication Management: chronic disease management Referred By: pharmacist Recipient: beneficiary Provider: plan sponsor pharmacist [facility] Follow-up Time Spent: 1-15 min Method of Contact: by telephone Cognitive Ability: good Allergies and Drug intolerance: Allergies Allergen Reactions ??? Amoxicillin-Pot Clavulanate Rash ??? Risedronate Sodium Nausea And Vomiting Medication Reconciliation Discrepancies (compared to [facility] med list) -Had flu and was in hospital for 4 day. Discharged on levetriacetam 1000mg po bid Specialty Pharmacy Refill Questionnaire Refill Questionnaire 07/14/2022 What is the name of the specialty medication you are refilling? epidiolex Are you taking any new medications? Yes Please explain levetriacetam 1000mg po bid Any new medical condition? Yes Please explain flu Any new allergies? No Any missed doses since your last fill? 0 Any new side effects that are bothersome? No What date will you need this fill by? 07/21/2022 Adherence: Specialty Med Adherence Patient Demonstrates Understanding of Importance of Adherence: Yes Educational Information or Adherence Tools Provided: Yes Patient Reported X Missed Doses in the Last Month: 0 Provider-Estimated Medication Adherence Level: 90-100% Adherence Tools Used: directed education Pt understands no changes to current drug regimen were made at the appointment and that [facility] is providing recommendations (summary located at top of note) for provider review and follow up. Bj Heck RPH 07/14/22 9:39 AM documented in this encounter Plan of Treatment Upcoming Encounters Date Type Department Care Team (Late st Contact Info) Description 08/06/2024 11:00 AM EST Office [place] [address] Sarah Serra APRN [facility] [address] documented as of this encounter Goals Goal Patient Goal Type Associated Problems Recent Progress Patient-Stated? Author [facility] Medication Compliance and Understanding Patient Facing Action Plan On track( 024 12:05 PM EDT) Arnel Hurd, [facility] Note: Patient's specific desired goal: reduce number of seizures, with secondary goal of being able to taper some of the other AEDs being used Measured by: seizure record, side effects exhibited Time-frame to meet goal: 3-6 months documented as of this encounter Visit Diagnoses Not on filedocumented in this encounter Care Teams Fur Designer Relationship Specialty Start Date End Date Luis Manuel Blanca MD [address] [place] [address] PCP - General Family Medicine 06/24/16 documented as of this encounter
--- OUTSIDE RECORDS SUMMARY | 2024-06-28 21:59 | XMS_ITS | Encounter Summary ---
[place] [address] Care Team Providers Care Rv Repairer Name Role Phone Luis Manuel Blanca MD Primary Care Provider [phone] Reason for Visit * Reason Onset Date Comments Appointment 08/23/2021 Encounter Details Date Type Department Care Team (Late st Contact Info) Description 08/23/2021 Telephone [place] [phone] Sarah Serra APRN [facility] [place] [address] Appointment Social History Tobacco Use Types Packs/Day [...] encounter Miscellaneous Notes * Telephone Encounter - Shira Smith - 08/23/2021 9:36 AM EST Call Center / Wide Area Network Administrator Message - General Issue Call Provider patient sees in Clinic: Maryse Caller and relationship (if other than patient-full name): [employer]- caregiver Company and position if other than patient or family: Call back number: Ok to leave a message: [phone] Reason for call: Lulu, patient's caregiver, called today to see if patient's in-clinic appt on 08/25/21 can be a TOV. Patient does not have TH set up. Please return call to Lulu at the above number or her cell phone, Disposition of Call (choose one and remove others): ??? Routine message sent to [place]: yes Nurse/[place] contacted via: Message: y Call: n Pager: n documented in this encounter Plan of Treatment Upcoming Encounters Date Type Department Care Team (Late st Contact Info) Description 08/06/2024 11:00 AM EST Office [place] [address] Sarah Serra APRN [facility] [place] [address] documented as of this encounter Goals Goal Patient Goal Type Associated Problems Recent Progress Patient-Stated? Author [facility] Medication Compliance and Understanding Patient Facing Action Plan On track( 024 12:05 PM EDT) Arnel Hurd, [facility] Note: Patient's specific desired goal: reduce number of seizures, with secondary goal of being able to taper some of the other AEDs being used Measured by: seizure record, side effects exhibited Time-frame to meet goal: 3-6 months documented as of this encounter Visit Diagnoses Not on filedocumented in this encounter Care Teams Rv Repairer Relationship Specialty Start Date End Date Luis Manuel Blanca MD [address] [place] [address] PCP - General Family Medicine 06/24/16 documented as of this encounter
--- OUTSIDE RECORDS SUMMARY | 2024-06-28 21:59 | XMS_ITS | Encounter Summary ---
[place] [address] Care Team Providers Care Senior Executive Assistant Name Role Phone Luis Manuel Blanca MD Primary Care Provider [phone] Reason for Visit * Reason Comments Medication Management Encounter Details Date Type Department Care Team (Late st Contact Info) Description 05/23/2022 Specialty [place] [phone] Bj Heck [facility] Social History Tobacco Use Types Packs/Day Years [...] this encounter Progress Notes * Bj Heck [facility] - 05/23/2022 10:18 AM EDT Clinical Management Plan: Refill Specialty Pharmacy Consultation; Bj Heck [facility] Comprehensive Medication Management (CMM) Cinthya Brown Ms. [...] And Vomiting Medication Reconciliation Discrepancies (compared to [facility] med list) No Specialty Pharmacy Refill Questionnaire Refill Questionnaire 05/23/2022 What is the name of the specialty medication you are refilling? epidiolex Are you taking any new medications? No Please explain - Any new medical condition? No Please explain - Any new allergies? No Any new side effects that are bothersome? No What date will you need this fill by? 06/03/2022 Adherence: Any missed doses? No Patient understands no changes to current drug regimen were made. Bj Heck RPH 05/23/22 10:20 AM documented in this encounter Plan of Treatment Upcoming Encounters Date Type Department Care Team (Late st Contact Info) Description 08/06/2024 11:00 AM EST [place] [address] Sarah Serra APRN [facility] [place] [address] documented as of this encounter Goals Goal Patient Goal Type Associated Problems Recent Progress Patient-Stated? Author [facility] Medication Compliance and Understanding Patient Facing Action Plan On track( 024 12:05 PM EDT) No Arnel Benitez [facility] Note: Patient's specific desired goal: reduce number of seizures, with secondary goal of being able to taper some of the other AEDs being used Measured by: seizure record, side effects exhibited Time-frame to meet goal: 3-6 months documented as of this encounter Visit Diagnoses Not on filedocumented in this encounter Care Teams Senior Executive Assistant Relationship Specialty Start Date End Date Luis Manuel Blanca MD [address] [place] [address] [address] [place] [address] PCP - General Family Medicine 06/24/16 documented as of this encounter
--- OUTSIDE RECORDS SUMMARY | 2024-06-28 21:59 | XMS_ITS | Encounter Summary ---
[place] [address] Care Team Providers Care Channel Turner Name Role Phone Luis Manuel Blanca MD Primary Care Provider [phone] Reason for Visit * Reason Onset Date Comments TeleHealth 03/22/2022 Encounter Details Date Type Department Care Team (Late st Contact Info) Description 03/22/2022 Telephone [place] [address] Sarah Serra APRN [facility] [place] [address] TeleHealth Social History Tobacco Use Types Packs/Day Years [...] Telephone Encounter - Tiff Gramajo RN - 03/22/2022 10:12 AM EDT Unable to reach this patient by phone to review their medications and allergies prior to their upcoming tele-appointment with the Neurology provider. No message left. documented in this encounter Plan of Treatment Upcoming Encounters Date Type Department Care Team (Late st Contact Info) Description 08/06/2024 11:00 AM EST Office [place] [address] Sarah Serra APRN [facility] [place] [address] documented as of this encounter Goals Goal Patient Goal Type Associated Problems Recent Progress Patient-Stated? Author [facility] Medication Compliance and Understanding Patient Facing Action Plan On track( 024 12:05 PM EDT) No Arnel Benitez, [facility] Note: Patient's specific desired goal: reduce number of seizures, with secondary goal of being able to taper some of the other AEDs being used Measured by: seizure record, side effects exhibited Time-frame to meet goal: 3-6 months documented as of this encounter Visit Diagnoses Not on filedocumented in this encounter Care Teams Channel Turner Relationship Specialty Start Date End Date Luis Manuel Blanca MD [address] [place] [address] PCP - General Family Medicine 06/24/16 documented as of this encounter
--- OUTSIDE RECORDS SUMMARY | 2024-06-28 21:59 | XMS_ITS | Encounter Summary ---
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 Guillaume-Gastaut syndrome ??? CAP (community acquired pneumonia) ??? [...] regular follow up due to coronavirus pandemic. Had cluster of seizures in setting of diarrhea, presented to [facility] ED found to be hyponatremic, trileptal was DCs and zonegran was started. She tolerated well and was DC'd home. Since this med change Cinthya has been doing great! Seizure control is better than before. May be a little more impulsive (doesn't like to wear her CPAP mask - takes it off) but overall doing well. Social History: Social History Socioeconomic History ??? [...] on file Social Factors: QEPILEPSY SOCIAL FACTORS 03/23/22 Employment status: No Currently driving: No Considering No Past Medical History: Diagnosis Date ??? Hyperlipidemia ??? MR (mental retardation) ??? RIA (obstructive sleep apnea) ??? Seizures Current Outpatient Medications on File Prior to Visit Medication Sig Dispense Refill ??? zonisamide (Zonegran) 100 mg Capsule Take 100 mg by mouth daily. Take 1 cap in the AM and 2 caps in the PM ??? cannabidioL (Epidiolex) 100 mg/mL Solution 4.3 ml twice daily. 258 mL 5 ??? PHENobarbitaL (Luminal) 60 mg Tablet TAKE 2 TABLETS BY MOUTH NIGHTLY 180 tablet 1 ??? Onfi 20 mg Tablet TAKE 1 TABLET BY MOUTH EVERY EVENING 90 tablet 1 ??? BanzeL 400 mg Tablet TAKE 3 TABLETS BY MOUTH EVERY MORNING TAKE 2 TABLETS BY MOUTH AT NOON AND TAKE 3 TABLETS BY MOUTH AT BEDTIME 720 tablet 1 ??? diazePAM (Valtoco) 10 mg/spray (0.1 mL) [place], Non-Aerosol 10 mg by Nasal route as needed (seizure clusters (call if ineffective) Max dose 10mg daily unless instucted otherwise by office.). 2 each 3 ??? sertraline (ZOLOFT) 100 mg Tablet TAKE ONE TABLET BY MOUTH EVERY DAY 90 tablet 3 ??? TrileptaL 300 mg Tablet TAKE 1 TABLET BY MOUTH DAILY AT NOON (Patient not taking: Reported on 02/16/2022) 90 tablet 3 ??? TrileptaL 600 mg Tablet Take 1 tablet by mouth 2 times daily. Brand name only (Patient not taking: Reported on 02/16/2022) 180 tablet 3 ??? clotrimazole-betamethasone (LOTRISONE) 1-0.05 % Cream Apply 1 Application topically as needed. 0 ??? NYSTOP Powder Apply 1 Application topically as needed. 0 ??? LORazepam (ATIVAN) 1 mg Tablet Take 1-2 tablets at onset of seizure symptoms, if ineffective after 30 minutes may repeat dose. If still not effective please call neurologist compensation business partner. Max 4mg daily. Take 0.5-1mg prior to [...] microseconds Assessment and Plan: - Epilepsy: Doing very well since switch to zonegran, no changes today. - RIA: advised make FU appt with sleep specialist to try different mask types. - Screen for medication toxicity: Reviewed labs, [...] with them today . Sarah Serra APRN [facility] Epilepsy Program Department of Neurology documented in this encounter Plan of Treatment Upcoming Encounters Date Type Department Care Team (Late st Contact Info) Description 08/06/2024 11:00 AM EST Office [place] [address] Sarah Serra APRN [facility] [place] [address] documented as of this encounter Goals Goal Patient Goal Type Associated Problems Recent Progress Patient-Stated? 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
--- OUTSIDE RECORDS SUMMARY | 2024-06-28 21:59 | XMS_ITS | Encounter Summary ---
[place] [address] Care Team Providers Care Pressing Machine Tender Name Role Phone Luis Manuel Blanca MD Primary Care Provider [phone] [phone] Reason for Visit * Reason Onset Date Comments Appointment 07/21/2022 Encounter Details Date Type Department Care Team (Late st Contact Info) Description 07/21/2022 [place]phone [place] [phone] Sarah Serra APRN [facility] [place] [address] Appointment Social History Tobacco Use Types Packs/Day [...] encounter Miscellaneous Notes * Telephone Encounter - Bisi Vicente - 07/21/2022 9:22 AM EST Copied from CRM #[id number]. Topic: Specialty Dept CRMs - Generic Call >> Jul 21, 2022 9:13 AM Cierra Melchor wrote: Specialist: Sarah Serra APRN Relationship (if other than patient-full name): RUSSEL Lawson Reason for Call: Lulu is calling to see if link for today's telehealth can be sent to cell phone number [phone] documented in this encounter Plan of Treatment Upcoming Encounters Date Type Department Care Team (Late st Contact Info) Description 08/06/2024 11:00 AM EST Office [place] [address] Sarah Serra APRN [facility] [place] [address] documented as of this encounter Goals Goal Patient Goal Type Associated Problems Recent Progress Patient-Stated? Author [facility] Medication Compliance and Understanding Patient Facing [...] on filedocumented in this encounter Care Teams Pressing Machine Tender Relationship Specialty Start Date End Date Luis Manuel Blanca MD [address] [place] [address] PCP - General Family Medicine 06/24/16 documented as of this encounter
--- OUTSIDE RECORDS SUMMARY | 2024-06-28 21:59 | XMS_ITS | Encounter Summary ---
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 Social History Tobacco [...] Telephone Encounter - Loretta Sutherland CMA - 11/12/2021 2:04 PM EDT Surescript request for : annette Last rx: 06/07/21 Quantity: 240 Refills: 5 Last appt: 08/25/21 Next appt: 03/01/22 documented in this encounter Plan of Treatment Upcoming Encounters Date Type Department Care Team (Late st Contact Info) Description 08/06/2024 11:00 AM EST Office [place] [address] Sarah Serra APRN [facility] [place] [address] documented as of this encounter Goals Goal Patient Goal Type Associated Problems Recent Progress Patient-Stated? 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
--- OUTSIDE RECORDS SUMMARY | 2024-06-28 21:59 | XMS_ITS | Encounter Summary ---
[place] [address] Care Team Providers Care Hogshead Salvage Name Role Phone Luis Manuel Blanca MD Primary Care Provider [phone] [phone] Reason for Visit * Reason Onset Date Comments Appointment 03/21/2022 Encounter Details Date Type Department Care Team (Late st Contact Info) Description 03/21/2022 [place] [phone] Sarah Serra APRN [facility] [place] [address] Appointment Social History Tobacco Use Types Packs/Day [...] * Telephone Encounter - Fifi Mendoza - 03/22/2022 2:46 PM EDT Link has been sent to Crescencio 03/22/22. * Telephone Encounter - Fifi Mendoza - 03/22/2022 10:35 AM EDT Spoke with Crescencio regarding DPR form and legal guardianship. Penal Officer will reach out to legal guardianfor sending TH link. * Telephone Encounter - Bisi Vicente - 03/21/2022 12:00 PM EDT Copied from CRM #[id number]. Topic: Specialty Dept CRMs - Appointment Needed >> Mar 21, 2022 11:40 AM Malik Goodman wrote: Appt Needed Specialist : Sarah Serra APRN Relationship (if other than patient-full name): Crescencio Arellano - Co-Home care provider for Cinthya Ham Appt. Type Needed: Other - [facility] link needed Reason for Visit: Crescencio stated that she will be the point of contact for the [facility] appointment on 03/23/22 and to send a link to her email at [email or web address]. Please contact Crescencio with any questions. documented in this encounter Plan of Treatment Upcoming Encounters Date Type Department Care Team (Late st Contact Info) Description 08/06/2024 11:00 AM EST [place] [address] Sarah Serra APRN [facility] [place] [address] documented as of this encounter Goals Goal Patient Goal Type Associated Problems Recent Progress Patient-Stated? Author [facility] Medication Compliance and Understanding Patient Facing [...] on filedocumented in this encounter Care Teams Hogshead Salvage Relationship Specialty Start Date End Date Luis Manuel Blanca MD [address] [facility] 1 [place] [address] PCP - General Family Medicine 06/24/16 documented as of this encounter
--- OUTSIDE RECORDS SUMMARY | 2024-06-28 21:59 | XMS_ITS | Encounter Summary ---
[place] [address] Care Team Providers Care Online Marketing Coordinator Name Role Phone Luis Manuel Blanca MD Primary Care Provider [phone] [phone] Reason for Visit * Reason Comments Medication Refill Encounter Details Date Type Department Care Team (Late st Contact Info) Description 05/02/2022 Specialty [place] [phone] Shay Harding [facility] Social History Tobacco Use Types Packs/Day Years [...] Progress Notes * Shay Harding RPH - 05/02/2022 9:58 AM EDT Clinical Management Plan: Refill Specialty Pharmacy Consultation; Shay Harding aYdira Comprehensive Medication Management (CMM) Cinthya Ed Alejandrabrianna Ms. Cinthya Brown is a 61 y.o. [...] No Specialty Pharmacy Refill Questionnaire Refill Questionnaire 05/02/2022 What is the name of the specialty medication you are refilling? Epidiolex Are you taking any new medications? No Please explain - Any new medical condition? No Please explain - Any new allergies? No Any new side effects that are bothersome? No What date will you need this fill by? 05/07/2022 Adherence: Any missed doses? No Patient understands no changes to current drug regimen were made. Shay Harding RPH 05/02/22 10:00 AM documented in this encounter Plan of Treatment Upcoming Encounters Date Type Department Care Team (Late st Contact Info) Description 08/06/2024 11:00 AM EST [place] [address] Sarah Serra APRN [facility] [place] [address] documented as of this encounter Goals Goal Patient Goal Type Associated Problems Recent Progress Patient-Stated? Author [facility] Medication Compliance and Understanding Patient Facing Action Plan On track( 024 12:05 PM EDT) No Arnel Benitez [facility] Note: Patient's specific desired goal: reduce number of seizures, with secondary goal of being able to taper some of the other AEDs being used Measured by: seizure record, side effects exhibited Time-frame to meet goal: 3-6 months documented as of this encounter Visit Diagnoses Not on filedocumented in this encounter Care Teams Online Marketing Coordinator Relationship Specialty Start Date End Date Luis Manuel Blanca MD [address] [place] [address] [address] [place] [address] PCP - General Family Medicine 06/24/16 documented as of this encounter
--- OUTSIDE RECORDS SUMMARY | 2024-06-28 21:59 | XMS_ITS | Encounter Summary ---
[place] [address] Care Team Providers Care Head Of Mobile Name Role Phone Luis Manuel Blanca MD Primary Care Provider [phone] Reason for Visit * Reason Comments Medication Management Encounter Details Date Type Department Care Team (Late st Contact Info) Description 02/16/2022 Specialty [place] [phone] Bj Heck [facility] Social History Tobacco Use Types [...] this encounter Progress Notes * Bj Heck [facility] - 02/16/2022 9:49 AM EDT Clinical Management Plan: Refill Specialty Pharmacy Consultation; Bj Heck [facility] Comprehensive Medication Management (CMM) Cinthya Brown Ms. Cinthya Brown is a 61 y.o. (1960) female who was contacted in regard to a specialty medication refill reminder. Contact made with caregiver. Caregiver name: Crescencio regarding Epidiolex. A review of the medication [...] chronic disease management Referred By: pharmacist Recipient: caregiver Provider: plan sponsor pharmacist [facility]: [facility] Follow-up Time Spent: 1-15 min Method of Contact: by telephone Cognitive Ability: good Allergies and Drug intolerance: Allergies Allergen Reactions ??? Amoxicillin-Pot Clavulanate Rash ??? Risedronate Sodium Nausea And Vomiting Medication Reconciliation Discrepancies (compared to [facility] med list) -D/C Oxcarbezapine due to hyponatremia. Started Zonisamide 100mg 1t;po;am and 2t po HS Specialty Pharmacy Refill Questionnaire Refill Questionnaire 02/16/2022 What is the name of the specialty medication you are refilling? epidiolex Are you taking any new medications? Yes Please explain zonisamide Any new medical condition? Yes Please explain hyponatremia Any new allergies? No Any missed doses since your last fill? No Any new side effects that are bothersome? No What date will you need this fill by? 02/23/2022 Adherence: Specialty Med Adherence Patient Demonstrates Understanding of Importance of Adherence: Yes Educational Information or Adherence Tools Provided: Yes Patient Reported X Missed Doses in the Last Month: 0 Provider-Estimated Medication Adherence Level: 90-100% Pt understands no changes to current drug regimen were made at the appointment and that [facility] is providing recommendations (summary located at top of note) for provider review and follow up. Bj Heck RPH 02/16/22 9:53 AM documented in this encounter Plan of Treatment Upcoming Encounters Date Type Department Care Team (Late st Contact Info) Description 08/06/2024 11:00 AM EST Office [place] [address] Sarah Serra APRN [facility] [place] [address] documented as of this encounter Goals Goal Patient Goal Type Associated Problems Recent Progress Patient-Stated? Author [facility] Medication Compliance and Understanding Patient Facing Action Plan On track( 024 12:05 PM EDT) Arnel Hurd, [facility] Note: Patient's specific desired goal: reduce number of seizures, with secondary goal of being able to taper some of the other AEDs being used Measured by: seizure record, side effects exhibited Time-frame to meet goal: 3-6 months documented as of this encounter Visit Diagnoses Not on filedocumented in this encounter Care Teams Head Of Mobile Relationship Specialty Start Date End Date Luis Manuel Blanca MD [address] [place] [address] PCP - General Family Medicine 06/24/16 documented as of this encounter
--- OUTSIDE RECORDS SUMMARY | 2024-06-28 21:59 | XMS_ITS | Encounter Summary ---
[place] [address] Care Team Providers Care Advisor Advocate Angel Co Founder Name Role Phone Luis Manuel Blanca MD Primary Care Provider [phone] Reason for Visit * Reason Comments Medication Management Patient Education Encounter Details Date Type Department Care Team (Late st Contact Info) Description 08/16/2021 Specialty [place] [phone] Bj Heck [facility] Social History Tobacco Use Types [...] Progress Notes * Bj Heck [facility] - 08/16/2021 9:13 AM EST Clinical Management Plan: Refill Specialty Pharmacy Consultation; Bj Heck [facility] Comprehensive Medication Management (CMM) Cinthya Ed Alejandrabrianna Ms. Cinthya Brown is a 60 y.o. (1960) female who was contacted in [...] And Vomiting Medication Reconciliation Discrepancies (compared to [facility] med list) No Specialty Pharmacy Refill Questionnaire Refill Questionnaire 08/16/2021 What is the name of the specialty medication you are refilling? epidiolex Are you taking any new medications? No Please explain - Any new medical condition? No Please explain - Any new allergies? No Any new side effects that are bothersome? No What date will you need this fill by? 08/21/2021 Adherence: Any missed doses? No Patient understands no changes to current drug regimen were made. Bj Heck RPH 08/16/21 9:14 AM documented in this encounter Plan of Treatment Upcoming Encounters Date Type Department Care Team (Late st Contact Info) Description 08/06/2024 11:00 AM EST [place] [address] [address]N [facility] [place] [address] documented as of this encounter Goals Goal Patient Goal Type Associated Problems Recent Progress Patient-Stated? Author [facility] Medication Compliance and Understanding Patient Facing Action Plan On track( 024 12:05 PM EDT) No Arnel Benitez [facility] Note: Patient's specific desired goal: reduce number of seizures, with secondary goal of being able to taper some of the other AEDs being used Measured by: seizure record, side effects exhibited Time-frame to meet goal: 3-6 months documented as of this encounter Visit Diagnoses Not on filedocumented in this encounter Care Teams Advisor Advocate Angel Co Founder Relationship Specialty Start Date End Date Luis Manuel Blanca MD [address] [place] [address] [address] [place] [address] PCP - General Family Medicine 06/24/16 documented as of this encounter
--- OUTSIDE RECORDS SUMMARY | 2024-06-28 21:59 | XMS_ITS | Encounter Summary ---
[place] [address] Care Team Providers Care Control And Recovery Combat Rescue Name Role Phone Luis Manuel Blanca MD Primary Care Provider [phone] Reason for Visit * Reason Onset Date Comments TeleHealth 07/19/2022 Medication and a llergy review. Encounter Details Date Type Department Care Team (Late st Contact Info) Description 07/19/2022 Tele[place] [address] Sarah Serra, DINO [facility] [place] [address] TeleHealth (Medication and allergy review. ) Social [...] Telephone Encounter - Tiff Gramajo RN - 07/19/2022 12:05 PM EST Spoke to this patient's caregiver by phone to review her medications and allergies prior to her upcoming tele-appointment with the Neurology provider. Medications and allergies reviewed, verified andupdated as needed. documented in this encounter Plan of Treatment Upcoming Encounters Date Type Department Care Team (Late st Contact Info) Description 08/06/2024 11:00 AM EST Office [place] [address] Sarah Serra APRN [facility] [place] [address] documented as of this encounter Goals Goal Patient Goal Type Associated Problems Recent Progress Patient-Stated? Author Home Medication Compliance and Understanding Patient Facing Action Plan On track( 024 12:05 PM EDT) Arnel Hurd, [facility] Note: Patient's specific desired goal: reduce number of seizures, with secondary goal of being able to taper some of the other AEDs being used Measured by: seizure record, side effects exhibited Time-frame to meet goal: 3-6 months documented as of this encounter Visit Diagnoses Not on filedocumented in this encounter Care Teams Control And Recovery Combat Rescue Relationship Specialty Start Date End Date Luis Manuel Blanca MD [address] [facility] 1 [place] [address] PCP - General Family Medicine 06/24/16 documented as of this encounter
--- OUTSIDE RECORDS SUMMARY | 2024-06-28 21:59 | XMS_ITS | Encounter Summary ---
[place] [address] Care Team Providers Care Grinder Set Up Operator Gear Tool Name Role Phone Luis Manuel Blanca MD Primary Care Provider [phone] Encounter Details Date Type Department Care Team (Late st Contact Info) Description 02/15/2022 [place] [address] Sarah Serra APRN [facility] [place] [address] Social History Tobacco Use Types Packs/Day Years [...] Telephone Encounter - Lili Otero RN - 02/15/2022 10:36 AM EDT Call placed to patient's caregiver. LVM. Advised to call back to give update on how Cinthya is doing. documented in this encounter Plan of Treatment Upcoming Encounters Date Type Department Care Team (Late st Contact Info) Description 08/06/2024 11:00 AM EST [place] [address] Sarah Serra APRN [facility] [place] [address] documented as of this encounter Goals Goal Patient Goal Type Associated Problems Recent Progress Patient-Stated? Author Home Medication Compliance and Understanding Patient Facing Action Plan On track( 024 12:05 PM EDT) Arnel Hurd, [facility] Note: Patient's specific desired goal: reduce number of seizures, with secondary goal of being able to taper some of the other AEDs being used Measured by: seizure record, side effects exhibited Time-frame to meet goal: 3-6 months documented as of this encounter Visit Diagnoses Not on filedocumented in this encounter Care Teams Grinder Set Up Operator Gear Tool Relationship Specialty Start Date End Date Luis Manuel Blanca MD [address] [place] [address] PCP - General Family Medicine 06/24/16 documented as of this encounter
--- OUTSIDE RECORDS SUMMARY | 2024-06-28 21:59 | XMS_ITS | Encounter Summary ---
[place] [address] Care Team Providers Care Can Cutter Name Role Phone Luis Manuel Blanca MD Primary Care Provider [phone] Reason for Visit * Reason Comments Specialty Refill Management Encounter Details Date Type Department Care Team (Late st Contact Info) Description 07/19/2021 Specialty [place] [phone] Arnel Benitez [facility] Social History Tobacco Use Types Packs/Day Years Used Date Smoking Tobacco: Never Smokeless Tobacco: Never Alcohol Use Standard Drinks/Week Comments No 0 (1 standard drink = 0.6 oz pur e alcohol) Sex and Gender Information Value Date Recorded Sex Assigned at Not on file Gender Identity Not on file Sexual Orientation Not on file documented as of this encounter Progress Notes * Arnel Benitez [facility] - 07/19/2021 4:08 PM EST Clinical Management Plan: Refill Specialty Pharmacy Consultation; Arnel Benitez [facility] Comprehensive Medication Management (CMM) Cinthya Ed Alejandrabrianna Ms. Cinthya Brown is a 60 y.o. (1960) female who was contacted in regard to a specialty medication refill reminder. Contact made with caregiver. Caregiver name: Crescencio regarding EPIDIOLEX. A review of the medication therapy was performed. The medication was refilled as scheduled, and all medication related questions and concerns were addressed. The specialty pharmacy staff will follow up with the patient 5-7 days prior to next refill. [facility] note: reminded Crescencio to have Cinthya's labs drawn prior to upcoming follow-up visit (08/25/2021) Was a change made to the Care Plan: No Allergies and Drug intolerance: Allergies Allergen Reactions ??? Amoxicillin-Pot Clavulanate Rash ??? Risedronate Sodium Nausea And Vomiting Medication Reconciliation Discrepancies (compared to [facility] med list) No Specialty Pharmacy Refill Questionnaire Refill Questionnaire 07/19/2021 What is the name of the specialty medication you are refilling? Epidiolex Are you taking any new medications? No Please explain - Any new medical condition? No Please explain - Any new allergies? No Any new side effects that are bothersome? No What date will you need this fill by? 08/06/2021 Adherence: Any missed doses? No Patient understands no changes to current drug regimen were made. Arnel Benitez RPH 07/19/21 4:09 PM documented in this encounter Plan of Treatment Upcoming Encounters Date Type Department Care Team (Late st Contact Info) Description 08/06/2024 11:00 AM EST [place] [address] Sarah Serra [employer] [facility] [place] [address] documented as of this encounter Goals Goal Patient Goal Type Associated Problems Recent Progress Patient-Stated? Author [facility] Medication Compliance and Understanding Patient Facing Action Plan On track( 024 12:05 PM EDT) No Arnel Benitez [facility] Note: Patient's specific desired goal: reduce number of seizures, with secondary goal of being able to taper some of the other AEDs being used Measured by: seizure record, side effects exhibited Time-frame to meet goal: 3-6 months documented as of this encounter Visit Diagnoses Not on filedocumented in this encounter Care Teams Can Cutter Relationship Specialty Start Date End Date Luis Manuel Blanca MD [address] [place] [address] PCP - General Family Medicine 06/24/16 documented as of this encounter
--- OUTSIDE RECORDS SUMMARY | 2024-06-28 21:59 | XMS_ITS | Encounter Summary ---
[place] [address] Care Team Providers Care Wallboard Worker Name Role Phone Luis Manuel Blanca MD Primary Care Provider [phone] [phone] Reason for Visit * Reason Comments Medication Management Encounter Details Date Type Department Care Team (Late st Contact Info) Description 09/26/2022 Specialty [place] [id number] Bj Heck [facility] Social History Tobacco Use Types [...] this encounter Progress Notes * Bj Heck [facility] - 09/26/2022 8:36 AM EST Clinical Management Plan: Refill Specialty Pharmacy Consultation; Bj Heck [facility] Comprehensive Medication Management (CMM) Cinthya Ed Kevin Ms. Cinthya Brown is a 62 y.o. (1960) female who was contacted in regard to a specialty medication refill reminder. Contact made with caregiver. Caregiver name: alex regarding Epidiolex. A review of the medication [...] beneficiary Provider: plan sponsor [facility]ist [facility] Follow-up Time Spent: 1-15 min Method of Contact: by telephone Cognitive Ability: good Allergies and Drug intolerance: Allergies Allergen Reactions ??? Amoxicillin-Pot Clavulanate Rash ??? Risedronate Sodium Nausea And Vomiting Medication Reconciliation Discrepancies (compared to [facility] med list) -Patient is having some minor diarrhea. They are trying lomotil for a week and will let us know howit goes. If it persists we will speak to the clinic. Specialty Pharmacy Refill Questionnaire Refill Questionnaire 09/26/2022 What is the name of the specialty medication you are refilling? epidiolex Are you taking any new medications? Yes Please explain lomotil. PRN for 1 week. Any new medical condition? No Please explain - Any new allergies? No Any missed doses since your last fill? 0 Any new side effects that are bothersome? No What date will you need this fill by? 10/03/2022 Adherence: Specialty Med Adherence Patient Demonstrates Understanding of Importance of Adherence: Yes Educational Information or Adherence Tools Provided: Yes Patient Reported X Missed Doses in the Last Month: 0 Adherence Tools Used: directed education Pt understands no changes to current drug regimen were made at the appointment and that [facility] is providing recommendations (summary located at top of note) for provider review and follow up. Bj Heck RPH 09/26/22 8:41 AM documented in this encounter Plan of Treatment Upcoming Encounters Date Type Department Care Team (Late st Contact Info) Description 08/06/2024 11:00 AM EST Office [place] [address] Sarah Serra [address]N [facility] [place] [address] documented as of this encounter Goals Goal [...] on filedocumented in this encounter Care Teams Wallboard Worker Relationship Specialty Start Date End Date Luis Manuel Blanca MD [address] [place] [address] [address] [facility] [address] [place] [address] PCP - General Family Medicine 06/24/16 documented as of this encounter
--- OUTSIDE RECORDS SUMMARY | 2024-06-28 21:59 | XMS_ITS | Encounter Summary ---
[place] [address] Care Team Providers Care Equal Opportunity Specialist Name Role Phone Luis Manuel Blanca MD Primary Care Provider [phone] [phone] Encounter Details Date Type Department Care Team (Late st Contact Info) Description 06/15/2021 [place] [address] Sarah Serra APRN [facility] [place] [address] Social History Tobacco Use Types Packs/Day Years [...] Miscellaneous Notes * Telephone Encounter - Lili Oteor RN - 06/15/2021 10:17 AM EST Spoke to Vianey BELTRE. She will fax an updated seizure protocol for Cinthya. She will replace the Diastat and Diltiazem vial nasal spray to Nayzilam nasal spray. The rest of the protocol will remain thesame. Patient/caller advised to call for any other concerns. Patient/caller in agreement and verbalized understanding of the plan. Sarah Serra APRN will need to sign and approve the revise seizure protocol. documented in this encounter Plan of Treatment Upcoming Encounters Date Type Department Care Team (Late st Contact Info) Description 08/06/2024 11:00 AM EST [place] [address] Sarah Serra APRN [facility] [place] [address] documented as of this encounter Goals Goal [...] on filedocumented in this encounter Care Teams Equal Opportunity Specialist Relationship Specialty Start Date End Date Luis Manuel Blanca MD [address] [place] [address] PCP - General Family Medicine 06/24/16 documented as of this encounter
--- OUTSIDE RECORDS SUMMARY | 2024-06-28 21:59 | XMS_ITS | Encounter Summary ---
[place] [address] Care Team Providers Care Lipstick Molder Name Role Phone Luis Manuel Blanca MD Primary Care Provider [phone] [phone] Reason for Visit * Reason Onset Date Comments Prior Authorization 06/08/2021 Encounter Details Date Type Department Care Team (Late st Contact Info) Description 06/08/2021 [place] [phone] Sarah Serra APRN [facility] [place] [address] Prior Authorization Social History Tobacco Use Types [...] * Telephone Encounter - Alondra Gregory - 06/08/2021 11:05 AM EDT Images from the original note were not included. ? Information regarding your request A pending Prior Authorization request for the Patient and Medication exist. * Telephone Encounter - Alondra Gregory - 06/08/2021 11:01 AM EDT Images from the original note were not included. * Telephone Encounter - Alondra Gregory - 06/08/2021 10:57 AM EDTSummary: June 07, 2021?? Cierra Melchor June 07, 2021? 9:08 AM Note Vidya is calling back from [facility], patient will be out soon. Vidya would like a call back when this authorization has been approved ?? 9:[address] [facility] [address] [facility] (Pharmacy) contacted Cierra Melchor June 07, 2021?? 12:35 PM Marlene Romano routed this conversation to Sc Marlene Romano ?? 12:35 PM Note Provider patient sees in Clinic:??Sarah Serra ?? Caller and relationship (if other than patient-full name):??Vidya-[facility]?? Call Back Number:??[phone]? Ok to leave a message:??yes? Name of Medication requiring PA:?? 1) TrileptaL 300 mg Tablet 2) TrileptaL 600 mg Tablet ?? When will patient be out of medication:??N/a ?? (Pharmacy Coverage Information can be found on the back of the patient's insurance card under pharmacy benefits. This information must be supplied in order for medication PA's to be processed.?If the caller does not have this information they must get the information and call back to the office) ?? Pharmacy Benefits/Coverage Company:??[employer] Pharmacy Benefits/Coverage ID #:??n/a Pharmacy Benefits/Coverage Company Phone Number:??n/a ?? Pharmacy used by patient:??[facility] Pharmacy location:??-[facility] [address] [place] [address]., [place] [address] ? Disposition of Call: ? Routine Message sent to the Nurse??x documented in this encounter Plan of Treatment Upcoming Encounters Date Type Department Care Team (Late st Contact Info) Description 08/06/2024 11:00 AM EST [place] [address] Sarah Serra APRN [facility] [place] [address] documented as of this encounter Goals Goal Patient Goal Type Associated Problems Recent Progress Patient-Stated? Author [facility] Medication Compliance and Understanding Patient Facing Action Plan On track( 024 12:05 PM EDT) No Arnel Benitez, [facility] Note: Patient's specific desired goal: reduce number of seizures, with secondary goal of being able to taper some of the other AEDs being used Measured by: seizure record, side effects exhibited Time-frame to meet goal: 3-6 months documented as of this encounter Visit Diagnoses Not on filedocumented in this encounter Care Teams Lipstick Molder Relationship Specialty Start Date End Date Luis Manuel Blanca MD [address] [place] [address] PCP - General Family Medicine 06/24/16 documented as of this encounter
--- OUTSIDE RECORDS SUMMARY | 2024-06-28 21:59 | XMS_ITS | Encounter Summary ---
[place] [address] Care Team Providers Care Marine Engineering Technicians Name Role Phone Luis Manuel Blanca MD Primary Care Provider [phone] Reason for Visit * Reason Comments Medication Management Encounter Details Date Type Department Care Team (Late st Contact Info) Description 09/02/2022 Specialty [place] [phone] Telma Johnson Yadira Social History Tobacco Use [...] Progress Notes * Telma Johnson RPH - 09/02/2022 9:26 AM EST Clinical Management Plan: Refill Specialty Pharmacy Consultation; Telma Johnson Yadira Comprehensive Medication Management (CMM) Cinthya Ed Alejandrabrianna Ms. Cinthya Brown is a 61 y.o. (1960) female who was contacted in regard to a specialty medication refill reminder. Contact made with caregiver. Caregiver name: Heidi regarding Epidiolex. A review of the medication [...] And Vomiting Medication Reconciliation Discrepancies (compared to [facility] med list) No Specialty Pharmacy Refill Questionnaire Refill Questionnaire 09/02/2022 What is the name of the specialty medication you are refilling? Epidiolex Are you taking any new medications? No Please explain - Any new medical condition? No Please explain - Any new allergies? No Any new side effects that are bothersome? No What date will you need this fill by? - Adherence: Any missed doses? No Patient understands no changes to current drug regimen were made. Telma Johnson RPH 09/02/22 9:27 AM documented in this encounter Plan of Treatment Upcoming Encounters Date Type Department Care Team (Late st Contact Info) Description 08/06/2024 11:00 AM EST Office [place] [address] Sarah Serra APRN [facility] [place] [address] documented as of this encounter Goals Goal Patient Goal Type Associated Problems Recent Progress Patient-Stated? Author [facility] Medication Compliance and Understanding Patient Facing [...] on filedocumented in this encounter Care Teams Marine Engineering Technicians Relationship Specialty Start Date End Date Luis Manuel Blanca MD [address] [place] [address] [address] [facility] [address] [place] [address] PCP - General Family Medicine 06/24/16 documented as of this encounter
--- OUTSIDE RECORDS SUMMARY | 2024-06-28 21:59 | XMS_ITS | Encounter Summary ---
[place] [address] Care Team Providers Care Artificial Fly Tier Name Role Phone Luis Manuel Blanca MD Primary Care Provider [phone] [phone] Reason for Visit * Reason Onset Date Comments TeleHealth 08/24/2021 Encounter Details Date Type Department Care Team (Late st Contact Info) Description 08/24/2021 Telephone [place] [address] Sarah Serra APRN [facility] [place] [address] TeleHealth Social History Tobacco Use Types Packs/Day [...] Telephone Encounter - Tiff Gramajo RN - 08/24/2021 3:48 PM EST Spoke to this patient's caregiver by phone to review her medications and allergies prior to her upcoming tele-appointment with the Neurology provider. Medications and allergies reviewed, verified andupdated as needed. documented in this encounter Plan of Treatment Upcoming Encounters Date Type Department Care Team (Late st Contact Info) Description 08/06/2024 11:00 AM EST Office Visit [facility] [place] [address] Sarah Serra APRN [facility] [place] [address] documented as of this encounter Goals Goal Patient Goal Type Associated Problems Recent Progress Patient-Stated? Author [facility] Medication Compliance and Understanding Patient Facing Action Plan On track( 024 12:05 PM EDT) No Arnel Benitez, [facility] Note: Patient's specific desired goal: reduce number of seizures, with secondary goal of being able to taper some of the other AEDs being used Measured by: seizure record, side effects exhibited Time-frame to meet goal: 3-6 months documented as of this encounter Visit Diagnoses Not on filedocumented in this encounter Care Teams Artificial Fly Tier Relationship Specialty Start Date End Date Luis Manuel Blanca MD [address] [facility] [address] [facility] [address] [place] [address] PCP - General Family Medicine 06/24/16 documented as of this encounter
--- OUTSIDE RECORDS SUMMARY | 2024-06-28 21:59 | XMS_ITS | Encounter Summary ---
[place] [address] Care Team Providers Care Project Manager Senior Name Role Phone Luis Manuel Blanca MD Primary Care Provider [phone] [phone] Reason for Visit * Reason Comments Medication Management Medication Refill Encounter Details Date Type Department Care Team (Late st Contact Info) Description 10/01/2021 Specialty [place] [phone] Arnel Benitez [facility] Social History Tobacco Use Types Packs/Day Years [...] this encounter Progress Notes * Arnel Benitez [facility] - 10/01/2021 2:56 PM EST Specialty Pharmacy Consultation; Arnel Benitez [facility] Comprehensive Medication Management (CMM): Specialty Consult, Opt Out Cinthya Brown Diagnosis: epilepsy Therapy Start Date: 01/2019 Contact in person or via telephone: telephone Ms. Cinthya Brown is a 61 y.o. (1960) female who was contacted in regard to specialty medication. Spoke with caregiver. Caregiver name: Crescencio regarding Cinthya's EPIDIOLEX. A review of the medication therapy was performed. The medication was refilled as scheduled, and all medication related questions and concerns were addressed. The specialty pharmacy staff will follow up with the patient 5-7days prior to next refill. Is the patient willing to proceed with the Clinical Assessment? No Summary and Recommendations: Pharmacy offered follow-up consultation with Crescencio, caregiver for Cinthya, regarding her Epidiolex therapy and overall status. Cinthya opted out of formal review, noting that Cinthya has had no recent medication changes, side effects or medical / allergy changes, and continues to maintain good seizure control from the Epidiolex and current medication regimen. A new prescription was recently issued which continues at the same dose. Pharmacy reviewed allergies, problem list, and medication list. No unknown drug interactions were found today, and the fact that the patient is tolerating the regimen well and with good effect lessens any concerns about them. We did however discuss labs. Cinthya is due for labs at this time, which Crescencio acknowledged but said that they have not been able to schedule a time with the lab. I suggested she try again and we will ask about it during the next refill encounter. Crescencio said she did not need to go over any of the drug information, warnings / precautions, or side effects, having worked with this medication in Alix's regimen for a length of time. We will continue to send a drug monograph with each refill and Crescencio knows that she can call the pharmacy at any time with questions or concerns. We will ship the next refill during the week of 10/04. For now she has plenty of medication to carry Alix for a couple of weeks. Economic Assessment: Patient is agreeable to medication copay: Yes Copay Amount: 0 Day Supply: 30 Date Needed: 10/17/2021 Therapy Assessment: Appropriate Therapy: Yes Current Medication Dosing/Route/Frequency: EPIDIOLEX: Take 4.3ml by mouth two times a day. Additional equipment/supplies required: no Care Plan Reviewed and Approved by Pharmacist : Yes - note, still waiting on labs Problem List: Patient Active Problem List Diagnosis Code ??? Status epilepticus G40.901 ??? Sleep apnea G47.30 ??? Mental retardation F79 ??? Seizure R56.9 ??? CAP (community acquired pneumonia) J18.9 ??? 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 Arnel Benitez RPH 10/01/21 3:03 PM documented in this encounter Plan of Treatment Upcoming Encounters Date Type Department Care Team (Late st Contact Info) Description 08/06/2024 11:00 AM EST [place] [address] Sarah Serra [facility] [place] [address] documented as of this encounter Goals Goal Patient Goal Type Associated Problems Recent Progress Patient-Stated? Author [facility] Medication Compliance and Understanding Patient Facing Action Plan On track( 024 12:05 PM EDT) No Arnel Benitez [facility] Note: Patient's specific desired goal: reduce number of seizures, with secondary goal of being able to taper some of the other AEDs being used Measured by: seizure record, side effects exhibited Time-frame to meet goal: 3-6 months documented as of this encounter Visit Diagnoses Not on filedocumented in this encounter Care Teams Project Manager Senior Relationship Specialty Start Date End Date Luis Manuel Blanca MD [address] [place] [address] 1 [place] [address] PCP - General Family Medicine 06/24/16 documented as of this encounter
--- OUTSIDE RECORDS SUMMARY | 2024-06-28 21:59 | XMS_ITS | Encounter Summary ---
[place] [address] Care Team Providers Care Settlement Processor Name Role Phone Luis Manuel Blanca MD Primary Care Provider [phone] Reason for Visit * Reason Onset Date Comments Prior Authorization 09/19/2022 Banzel 400MG tablets Encounter Details Date Type Department Care Team (Late st Contact Info) Description 09/19/2022 Telephone [place] [address] Aurelia Holland CMA Prior Authorization (Banzel 400MG tablets) Social History Tobacco Use Types Packs/Day [...] Telephone Encounter - Aurelia Holland CMA - 09/19/2022 2:55 PM ESTSummary: BARRY approval - Josh PA Outcome: PA Approval Medication Prior Authorization Approval Approved: Banzel 400MG tablets Start Date: 08/07/2022 End Date: 09/19/2023 Case/Reference #: [id number] Approval Letter will be scanned into media once received. 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) Prior medications trialed in this patient: Medication: cannabidioL (Epidiolex) 100 mg/mL Solution Approx Dates: current Outcome/Adverse Reactions: Inadequate response Medication: levETIRAcetam (Keppra) 1,000 mg Tablet Approx Dates: current Outcome/Adverse Reactions: Inadequate response Medication: PHENobarbitaL (Luminal) 60 mg Tablet Approx Dates: current Outcome/Adverse Reactions: Inadequate response Medication: Onfi 20 mg Tablet Approx Dates: current Outcome/Adverse Reactions: Inadequate response Medication: zonisamide (Zonegran) 100 mg Capsule Approx Dates: current Outcome/Adverse Reactions: Inadequate response Medication: diazePAM (Valtoco) 10 mg/spray (0.1 mL) [place], Non-Aerosol Approx Dates: current Outcome/Adverse Reactions: Inadequate response Medication: LORazepam (ATIVAN) 1 mg Tablet Approx Dates: current Outcome/Adverse Reactions: Inadequate response Additional Notes: Attached most recent neurology note from 09/01/2022 to prior authorization. documented in this encounter Plan of Treatment Upcoming Encounters Date Type Department Care Team (Late st Contact Info) Description 08/06/2024 11:00 AM EST Office [place] [address] Sarah Serra, DINO [facility] [place] [address] documented as of this encounter Goals Goal Patient Goal Type Associated Problems Recent Progress Patient-Stated? Author [facility] Medication Compliance and Understanding Patient Facing Action Plan On track( 024 12:05 PM EDT) No Arnel Benitez, [facility] Note: Patient's specific desired goal: reduce number of seizures, with secondary goal of being able to taper some of the other AEDs being used Measured by: seizure record, side effects exhibited Time-frame to meet goal: 3-6 months documented as of this encounter Visit Diagnoses Not on filedocumented in this encounter Care Teams Settlement Processor Relationship Specialty Start Date End Date Luis Manuel Blanca MD [address] [place] [address] PCP - General Family Medicine 06/24/16 documented as of this encounter
--- OUTSIDE RECORDS SUMMARY | 2024-06-28 21:59 | XMS_ITS | Encounter Summary ---
[place] [address] Care Team Providers Care Real Estate Officer Name Role Phone Luis Manuel Blanca MD Primary Care Provider +1 [phone] Reason for Visit * Reason Onset Date Comments Other 06/18/2021 Encounter Details Date Type Department Care Team (Late st Contact Info) Description 06/18/2021 [place] [phone] Sarah Serra APRN [facility] [address] Other Social History Tobacco Use Types Packs/Day Years [...] Telephone Encounter - Sarah Serra APRN - 07/06/2021 2:40 PM EST Called and spoke with olesya ocasio fax new protocol for sig. * Telephone Encounter - Mita Win RN - 06/24/2021 3:57 PM EST Fior notified that per Sarah this will need to wait until she is back in clinic next week. Fior agrees with plan and verbalizes understanding. * Telephone Encounter - Mita Win RN - 06/23/2021 1:03 PM EST Per Sarah Serra ESTABLISHMENT GUIDE: This is something lili and I have been working on with them and it has proven rather difficult forreasons that are not really clear. ??I would leave this for me until I return. * Telephone Encounter - Mita Win RN - 06/23/2021 10:45 AM EST I phoned Fior back. She states that the caregivers have questions regarding the use of Cinthya'sprn seizure medications. Fior states currently if pt has a seizure the first step is to swipe the VNS. The second step is to then use ativan 1 mg tablets Take 1-2 tablets at onset of seizure symptoms, if ineffective after 30 minutes may repeat dose. If still not effective please call neurologist marketing consultant. Max 4mg daily. Take 0.5-1mg prior to seizure triggering activity ( also for non cluster seizures) Fior is asking if Cinthya goes into cluster seizures and they have used the max dose of the ativan can they still administer the diazepam (valtoco) and if so what time frame after last dose of ativan and max dose to be used. They want to be sure they don't give her too much ativan/diazepam in 24hr period. Current instructions for Diazepam (valtoco) for seizure clusters: 10 mg by Nasal route as needed (seizure clusters (call if ineffective) Max dose 10mg daily unless instucted otherwise by office.). Fior is aware Sarah is unavailable until Monday06/29/21. They are hoping to get instruction soon. She states they can accept covering provider instructions in the interim but that Sarah will still need to be the provider to sign off on the orders when she returns. Plan: I will forward to covering provider for review and recommendation. Fior aware I will phone back once input available. Fior agrees with plan and verbalizes understanding. * Telephone Encounter - Latha Walton - 06/23/2021 10:10 AM EST Fior is returning a call to Moriah to get clarification on questions on seizure protocol, please call [phone] ext [phone] * Telephone Encounter - Mita Win RN - 06/18/2021 2:33 PM EST I attempted to phone Fior back. There was no answer. Message left on named voice mail to call back [phone]. * Telephone Encounter - Shira Smith - 06/18/2021 9:03 AM EST Call Center / [employer] Message - General Issue Call Provider patient sees in Clinic: Maryse Caller and relationship (if other than patient-full name): [employer] and position if other than patient or family: [employer] Call back number: [phone] ext [phone] Ok to leave a message: yes Reason for call: Fior reached out today to speak with Lili to discuss patient. Attempted to reach Lili's extension, but got her voicemail. Please return call. Disposition of Call (choose one and remove others): ??? Routine Message sent to the Nurse: yes Nurse/[place] contacted via: Message: y Call: y Pager: n documented in this encounter Plan of Treatment Upcoming Encounters Date Type Department Care Team (Late st Contact Info) Description 08/06/2024 11:00 AM EST [place] [address] Sarah Serra APRN [facility] [place] [address] documented as of this encounter Goals Goal Patient Goal Type Associated Problems Recent Progress Patient-Stated? Author [facility] Medication Compliance and Understanding Patient Facing Action Plan On track( 024 12:05 PM EDT) Arnel Hurd, [facility] Note: Patient's specific desired goal: reduce number of seizures, with secondary goal of being able to taper some of the other AEDs being used Measured by: seizure record, side effects exhibited Time-frame to meet goal: 3-6 months documented as of this encounter Visit Diagnoses Not on filedocumented in this encounter Care Teams Real Estate Officer Relationship Specialty Start Date End Date Luis Manuel Blanca MD [address] [place] [address] [address] [facility] [address] [place] [address] PCP - General Family Medicine 06/24/16 documented as of this encounter
--- OUTSIDE RECORDS SUMMARY | 2024-06-28 21:59 | XMS_ITS | Encounter Summary ---
[place] [address] Care Team Providers Care Bobcat Operator Name Role Phone Luis Manuel Blanca MD Primary Care Provider [phone] [phone] Reason for Visit * Reason Comments Medication Management Encounter Details Date Type Department Care Team (Late st Contact Info) Description 06/20/2022 Specialty [place] [phone] Bj Heck [facility] Social History Tobacco Use Types Packs/Day [...] this encounter Progress Notes * Bj Heck [facility] - 06/20/2022 1:10 PM EST Clinical Management Plan: Refill Specialty Pharmacy Consultation; Bj Heck [facility] Comprehensive Medication Management (CMM) Cinthya Brown [...] And Vomiting Medication Reconciliation Discrepancies (compared to [facility] med list) No Specialty Pharmacy Refill Questionnaire Refill Questionnaire 06/20/2022 What is the name of the specialty medication you are refilling? epidiolex Are you taking any new medications? No Please explain - Any new medical condition? No Please explain - Any new allergies? No Any new side effects that are bothersome? No What date will you need this fill by? 06/23/2022 Adherence: Any missed doses? No Patient understands no changes to current drug regimen were made. Bj Heck RPH 06/20/22 1:16 PM documented in this encounter Plan of Treatment Upcoming Encounters Date Type Department Care Team (Late st Contact Info) Description 08/06/2024 11:00 AM EST [place] [address] Sarah Serra APRN [facility] [place] [place] [address] documented as of this encounter Goals Goal Patient Goal Type Associated Problems Recent Progress Patient-Stated? Author [facility] Medication Compliance and Understanding Patient Facing Action Plan On track( 024 12:05 PM EDT) No Arnel Benitez [facility] Note: Patient's specific desired goal: reduce number of seizures, with secondary goal of being able to taper some of the other AEDs being used Measured by: seizure record, side effects exhibited Time-frame to meet goal: 3-6 months documented as of this encounter Visit Diagnoses Not on filedocumented in this encounter Care Teams Bobcat Operator Relationship Specialty Start Date End Date Luis Manuel Blanca MD [address] [place], [place] [address]Y [facility] 1 [place] [address] PCP - General Family Medicine 06/24/16 documented as of this encounter
--- OUTSIDE RECORDS SUMMARY | 2024-06-28 21:59 | XMS_ITS | Encounter Summary ---
[place] [address] Care Team Providers Care Icebox Worker Name Role Phone Luis Manuel Blanca MD Primary Care Provider [phone] [phone] Reason for Visit * Reason Comments Medication Management Encounter Details Date Type Department Care Team (Late st Contact Info) Description 09/10/2021 Specialty Pharm[place] [phone] Bj Heck [facility] Social History Tobacco Use Types [...] this encounter Progress Notes * Bj Heck [facility] - 09/10/2021 1:09 PM EST Clinical Management Plan: Refill Specialty Pharmacy Consultation; Bj Heck [facility] Comprehensive Medication Management (CMM) Cinthya Ed Kevin Ms. Cinthya Brown is a 60 y.o. [...] Vomiting Medication Reconciliation Discrepancies (compared to [facility] med list) No Specialty Pharmacy Refill Questionnaire Refill Questionnaire 09/10/2021 What is the name of the specialty medication you are refilling? epidiolex Are you taking any new medications? No Please explain - Any new medical condition? No Please explain - Any new allergies? No Any new side effects that are bothersome? No What date will you need this fill by? 09/17/2021 Adherence: Any missed doses? No Patient understands no changes to current drug regimen were made. Bj Heck RPH 09/10/21 1:10 PM documented in this encounter Plan of Treatment Upcoming Encounters Date Type Department Care Team (Late st Contact Info) Description 08/06/2024 11:00 AM EST Office [place] [address] [facility] [place] [address] documented as of this encounter Goals Goal Patient Goal Type Associated Problems Recent Progress Patient-Stated? Author [facility] Medication Compliance and Understanding Patient Facing [...] on filedocumented in this encounter Care Teams Icebox Worker Relationship Specialty Start Date End Date Luis Manuel Blanca MD [address] [place] [address] 1 [place] [address] PCP - General Family Medicine 06/24/16 documented as of this encounter
--- OUTSIDE RECORDS SUMMARY | 2024-06-28 21:59 | XMS_ITS | Encounter Summary ---
Author [facility] [place] [address] Care Team Providers Care Proof Machine Operator Supervisor Name Role Phone Luis Manuel Blanca MD Primary Care Provider [phone] [phone] Reason for Visit * Reason Onset Date Comments Medication Refill 10/10/2022 Encounter Details Date Type Department Care Team (Late st Contact Info) Description 10/10/2022 [place] [address] Sarah Serra APRN [facility] [place] [address] Social History Tobacco Use Types Packs/Day Years [...] Telephone Encounter - Ladonna Pandey RN - 10/10/2022 10:14 AM EST Surescript request for : keppra Last rx: 07/05/2022 Quantity: 180 Refills: 0 From last note: - Epilepsy: Doing great! [...] discussion, chart review and documenation.: 15 min Last appt: 09/01/2022 Next appt: 03/07/2023 * Telephone Encounter - Mary Conte - 10/10/2022 9:14 AM EST Call Center / [place] Message Prescription Refill Request Clinical Customer Experience Manager message Provider patient sees in Clinic: Sarah Serra Caller and relationship (if other than patient-full name): Cinthya Alejandrabrianna Call back Number: [phone] Ok to leave a message: yes Any issues needing to be addressed prior to medication refill? (ex: dose increase, not at pharmacy): n/a Name of Med: levETIRAcetam (Keppra) Strength of Pills: 1,000 mg Tablet Dosing Directions: Take 1 tablet by mouth 2 times daily. How Patient is Currently Taking Medication: same as above 30 or 90 Day Supply: Pharmacy: [facility]- [place], [place] - [address] [facility] Last Appointment: 09/01/22 Next Appointment: (IF CALL IS FROM PATIENT/FAMILY AND THERE IS NO FOLLOW UP SCHEDULED REVIEW CHART TO SEE WHEN APPOINTMENT IS NEEDED AND SCHEDULE BEFORE SENDING MESSAGE) 03/07/23 Is Patient out of Medication?: Yes documented in this encounter Plan of Treatment Upcoming Encounters Date Type Department Care Team (Late st Contact Info) Description 08/06/2024 11:00 AM EST Office [place] [address] Sarah Serra APRN [facility] [place] [address] documented as of this encounter Goals Goal Patient Goal Type Associated Problems Recent Progress Patient-Stated? Author [facility] Medication Compliance and Understanding Patient Facing Action Plan On track( 024 12:05 PM EDT) No Arnel Benitez, [facility] Note: Patient's specific desired goal: reduce number of seizures, with secondary goal of being able to taper some of the other AEDs being used Measured by: seizure record, side effects exhibited Time-frame to meet goal: 3-6 months documented as of this encounter Visit Diagnoses Not on filedocumented in this encounter Care Teams Proof Machine Operator Supervisor Relationship Specialty Start Date End Date Luis Manuel Blanca MD [address] [place] [address] PCP - General Family Medicine 06/24/16 documented as of this encounter
--- OUTSIDE RECORDS SUMMARY | 2024-06-28 21:59 | XMS_ITS | Encounter Summary ---
[place] [address] Care Team Providers Care Checkout Supervisor Name Role Phone Luis Manuel Blanca MD Primary Care Provider [phone] Reason for Visit * Reason Comments Medication Management Encounter Details Date Type Department Care Team (Late st Contact Info) Description 11/01/2021 Specialty [place] [phone] Bj Heck [facility] Social History Tobacco Use Types Packs/Day [...] this encounter Progress Notes * Bj Heck [facility] - 11/01/2021 9:43 AM EDT Clinical Management Plan: Refill Specialty Pharmacy Consultation; Bj Heck [facility] Comprehensive Medication Management (CMM) Cinthya Brown [...] Discrepancies (compared to [facility] med list) No Specialty Pharmacy Refill Questionnaire Refill Questionnaire 11/01/2021 What is the name of the specialty medication you are refilling? epidiolex Are you taking any new medications? No Please explain - Any new medical condition? No Please explain - Any new allergies? No Any new side effects that are bothersome? No What date will you need this fill by? 11/09/2021 Adherence: Any missed doses? No Patient understands no changes to current drug regimen were made. Bj Heck RPH 11/01/21 9:46 AM documented in this encounter Plan of Treatment Upcoming Encounters Date Type Department Care Team (Late st Contact Info) Description 08/06/2024 11:00 AM EST [place] [address] Sarah Serra APRN [facility] [place] [address] documented as of this encounter Goals Goal Patient Goal Type Associated Problems Recent Progress Patient-Stated? Author [facility] Medication Compliance and Understanding Patient Facing Action Plan On track( 024 12:05 PM EDT) No Arnel Benitez [facility] Note: Patient's specific desired goal: reduce number of seizures, with secondary goal of being able to taper some of the other AEDs being used Measured by: seizure record, side effects exhibited Time-frame to meet goal: 3-6 months documented as of this encounter Visit Diagnoses Not on filedocumented in this encounter Care Teams Checkout Supervisor Relationship Specialty Start Date End Date Luis Manuel Blanca MD [address] [place] [address] 1 [place] [address] PCP - General Family Medicine 06/24/16 documented as of this encounter
--- OUTSIDE RECORDS SUMMARY | 2024-06-28 21:59 | XMS_ITS | Encounter Summary ---
[place] [address] Care Team Providers Care American Indian Policy Specialist Name Role Phone Luis Manuel Blanca MD Primary Care Provider [phone] [phone] Encounter Details Date Type Department Care Team (Late st Contact Info) Description 06/07/2022 [place] [address] Sarah Serra APRN [facility] [place] [address] Social History Tobacco Use Types Packs/Day Years [...] Telephone Encounter - Ladonna Pandey RN - 06/07/2022 2:14 PM EDT Images from the original note were not included. documented in this encounter Plan of Treatment Upcoming Encounters Date Type Department Care Team (Late st Contact Info) Description 08/06/2024 11:00 AM EST [place] [address] Sarah Serra APRN [facility] [place] [place] [address] documented as of this encounter Goals Goal Patient Goal Type Associated Problems Recent Progress Patient-Stated? Author [facility] Medication Compliance and Understanding Patient Facing Action Plan On track( 024 12:05 PM EDT) Arnel Hurd, [facility] Note: Patient's specific desired goal: reduce number of seizures, with secondary goal of being able to taper some of the other AEDs being used Measured by: seizure record, side effects exhibited Time-frame to meet goal: 3-6 months documented as of this encounter Visit Diagnoses Not on filedocumented in this encounter Care Teams American Indian Policy Specialist Relationship Specialty Start Date End Date Luis Manuel Blanca MD [address] [place] [address] [address] [place] [address] PCP - General Family Medicine 06/24/16 documented as of this encounter
--- OUTSIDE RECORDS SUMMARY | 2024-06-28 21:59 | XMS_ITS | Encounter Summary ---
Author Organization [facility] [place] [address] Care Team Providers Care Organizational Development Consultant Name Role Phone Luis Manuel Blanca MD Primary Care Provider [phone] [phone] Reason for Visit * Reason Comments Medication Refill Encounter Details Date Type Department Care Team (Late st Contact Info) Description 05/24/2022 [place] [address] Sarah Serra APRN [facility] [place] [address] Social History Tobacco Use Types Packs/Day Years [...] Telephone Encounter - Loretta Sutherland CMA - 05/24/2022 9:15 AM EDT Surescript request for : Phenobarbital Last rx: 12/15/21 Quantity: 180 Refills: 1 Surescript request for : ONFI 20 Last rx: 12/15/21 Quantity: 90 Refills: 1 From last note: Triggers:Excitement, cold, sometimes unprovoked Current AEDS: Zonegran 200mg QHS,Trileptal 600mg TID, Phenobarb 120mg qhs, Ativan PRN, VNS Recent Levels: Past AEDs: Phenobarbital, Lorazepam, Trileptal, Depakote, Lamictal (didn't work, hair fell out) Hx GTC: Y Hx Tongue Biting: Y Last appt: 03/23/22 Next appt: Due 09/2022 documented in this encounter Plan of Treatment Upcoming Encounters Date Type Department Care Team (Late st Contact Info) Description 08/06/2024 11:00 AM EST [place] [address] Sarah Serra APRN [facility] [place] [address] documented as of this encounter Goals Goal [...] on filedocumented in this encounter Care Teams Organizational Development Consultant Relationship Specialty Start Date End Date Luis Manuel Blanca MD [address] [place] [address] [address] [place] [address] PCP - General Family Medicine 06/24/16 documented as of this encounter
--- OUTSIDE RECORDS SUMMARY | 2024-06-28 21:59 | XMS_ITS | Encounter Summary ---
[place] [address] Care Team Providers Care Pier Master Name Role Phone Luis Manuel Blanca MD Primary Care Provider [phone] [phone] Encounter Details Date Type Department Care Team (Late st Contact Info) Description 10/10/2022 [place] [address] Lizzie Solares APRN [facility] [place] [address] Social History Tobacco Use Types Packs/Day Years [...] Encounter - Ladonna Pandey RN - 10/10/2022 2:04 PM EST Copied from CRM #[id number]. Topic: Specialty Dept CRMs - Medication Issues >> Oct 10, 2022 1:12 PM Michelle Garcia wrote: Medication Issues Specialist Lizzie Solares APRN Relationship (if other than patient-full name): Crescencio Sumner, sister Reason for call: Medication Issue (if symptom based used Triage Subtopic) Message/information for the nurse: Medication was sent to the wrong pharmacy. Name of Medication: levETIRAcetam (Keppra) 1,000 mg Tablet [[id number]] Issue with the medication: Please have medication sent to pharmacy: [facility] - [place], [place] - [address] [facility] documented in this encounter Plan of Treatment Upcoming Encounters Date Type Department Care Team (Late st Contact Info) Description 08/06/2024 11:00 AM EST [place] [address] Sarah Serra APRN [facility] [place] [address] documented as of this encounter Goals Goal Patient Goal Type Associated Problems Recent Progress Patient-Stated? Author [facility] Medication Compliance and Understanding Patient Facing Action Plan On track( 024 12:05 PM EDT) Arnel Hurd, [facility] Note: Patient's specific desired goal: reduce number of seizures, with secondary goal of being able to taper some of the other AEDs being used Measured by: seizure record, side effects exhibited Time-frame to meet goal: 3-6 months documented as of this encounter Visit Diagnoses Not on filedocumented in this encounter Care Teams Pier Master Relationship Specialty Start Date End Date Luis Manuel Blanca MD [address] [place] [address] PCP - General Family Medicine 06/24/16 documented as of this encounter
--- OUTSIDE RECORDS SUMMARY | 2024-06-28 21:59 | XMS_ITS | Encounter Summary ---
[place] [address] Care Team Providers Care Fitting Room Attendant Name Role Phone Luis Manuel Blanca MD Primary Care Provider [phone] Reason for Visit * Reason Onset Date Comments Appointment 07/12/2022 TeleHealth 07/12/2022 Encounter Details Date Type Department Care Team (Late st Contact Info) Description 07/12/2022 Tele[place] [address] Sarah Serra APRN [facility] [place] [address] Appointment; TeleHealth Social History Tobacco Use Types Packs/Day [...] * Telephone Encounter - Fifi Mendoza - 07/12/2022 4:20 PM EST Calling to schedule next available Telehealth visit with Sarah Serra APRN. documented in this encounter Plan of Treatment Upcoming Encounters Date Type Department Care Team (Late st Contact Info) Description 08/06/2024 11:00 AM EST Office [place] [address] Sarah Serra APRN [facility] [place] [address] documented as of this encounter Goals Goal [...] on filedocumented in this encounter Care Teams Fitting Room Attendant Relationship Specialty Start Date End Date Luis Manuel Blanca MD [address] [place] [address] PCP - General Family Medicine 06/24/16 documented as of this encounter
--- OUTSIDE RECORDS SUMMARY | 2024-06-28 21:59 | XMS_ITS | Encounter Summary ---
[place] [address] Care Team Providers Care Hairspring Adjuster Name Role Phone Luis Manuel Blanca MD Primary Care Provider +1 [phone] Reason for Visit * Reason Comments Medication Management Encounter Details Date Type Department Care Team (Late st Contact Info) Description 11/26/2021 Specialty [place] [id number] Bj Heck [facility] Social History Tobacco Use Types Packs/Day Years [...] encounter Progress Notes * Bj Heck [facility] - 11/26/2021 9:25 AM EDT Clinical Management Plan: Refill Specialty Pharmacy Consultation; Bj Heck [facility] Comprehensive Medication Management (CMM) Cinthya Brown Ms. [...] And Vomiting Medication Reconciliation Discrepancies (compared to [facility] med list) No Specialty Pharmacy Refill Questionnaire Refill Questionnaire 11/26/2021 What is the name of the specialty medication you are refilling? epidiolex Are you taking any new medications? No Please explain - Any new medical condition? No Please explain - Any new allergies? No Any new side effects that are bothersome? No What date will you need this fill by? 12/02/2021 Adherence: Any missed doses? No Patient understands no changes to current drug regimen were made. Bj Heck RPH 11/26/21 9:29 AM documented in this encounter Plan of Treatment Upcoming Encounters Date Type Department Care Team (Late st Contact Info) Description 08/06/2024 11:00 AM EST [place] [address] Sarah Serra APRN [facility] [address] documented as of this encounter Goals Goal Patient Goal Type Associated Problems Recent Progress Patient-Stated? Author [facility] Medication Compliance and Understanding Patient Facing Action Plan On track( 024 12:05 PM EDT) No Arnel Benitez [facility] Note: Patient's specific desired goal: reduce number of seizures, with secondary goal of being able to taper some of the other AEDs being used Measured by: seizure record, side effects exhibited Time-frame to meet goal: 3-6 months documented as of this encounter Visit Diagnoses Not on filedocumented in this encounter Care Teams Hairspring Adjuster Relationship Specialty Start Date End Date Luis Manuel Blanca MD [address] [place] [address] 1 [place] [address] PCP - General Family Medicine 06/24/16 documented as of this encounter
--- OUTSIDE RECORDS SUMMARY | 2024-06-28 21:59 | XMS_ITS | Encounter Summary ---
[place] [address] Care Team Providers Care Clinical Admissions Manager Name Role Phone Luis Manuel Blanca MD Primary Care Provider [phone] [phone] Reason for Visit * Reason Onset Date Comments Labs Only 11/16/2021 Encounter Details Date Type Department Care Team (Late st Contact Info) Description 11/16/2021 [place] [address] Sarah Serra APRN [facility] [address] Labs Only Social History Tobacco Use Types Packs/Day Years [...] Miscellaneous Notes * Telephone Encounter - Ladonna Pandey, RN - 11/17/2021 3:10 PM EDT Called caregiver, Crescencio, to let her know that labs had been sent to [facility]. Crescencio verbalizes understanding and appreciation. * Telephone Encounter - Fifi De La Cruz RN - 11/16/2021 11:58 AM EDT Copied from [facility] #[id number]. Topic: Specialty Dept CRMs - Orders >> Nov 16, 2021 11:44 AM Pete Ibarra wrote: Orders Request Specialist: Sarah Serra APRN Relationship (if other than patient-full name): Crescencio Arellano, after school caregiver Type of Request: [x] Send orders Type/Name of Order: Labs/Blood Work Patient Requesting to Have Orders Sent to Facility Outside of [facility]: Yes If Yes, Name of Facility: [facility] Address: [facility] Phone #: [phone] Fax #: [phone] documented in this encounter Plan of Treatment Upcoming Encounters Date Type Department Care Team (Late st Contact Info) Description 08/06/2024 11:00 AM EST [place] [address] Sarah Serra APRN [facility] [place] [address] documented as of this encounter Goals Goal Patient Goal Type Associated Problems Recent Progress Patient-Stated? 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
--- OUTSIDE RECORDS SUMMARY | 2024-06-28 21:59 | XMS_ITS | Encounter Summary ---
[place] [address] Care Team Providers Care Recreational Resort Manager Name Role Phone Luis Manuel Blanca MD Primary Care Provider [phone] [phone] Encounter Details Date Type Department Care Team (Late st Contact Info) Description 04/27/2022 Telephone Sleep Center at [facility] [address] [place] [phone] Jeanna Leonard Social History Tobacco Use Types Packs/Day Years [...] encounter Miscellaneous Notes * Telephone Encounter - Jeanna Leonard - 04/27/2022 3:49 PM EDT Faxed achieves consult and sleep studies to Nelly at [facility] #[phone] per request from [place] documented in this encounter Plan of Treatment Upcoming Encounters Date Type Department Care Team (Late st Contact Info) Description 08/06/2024 11:00 AM EST [place] [address] Sarah Serra APRN [facility] [place] [address] documented as of this encounter Goals Goal Patient Goal Type Associated Problems Recent Progress Patient-Stated? Author [facility] Medication Compliance and Understanding Patient Facing Action Plan On track( 024 12:05 PM EDT) Arnel Hurd, [facility] Note: Patient's specific desired goal: reduce number of seizures, with secondary goal of being able to taper some of the other AEDs being used Measured by: seizure record, side effects exhibited Time-frame to meet goal: 3-6 months documented as of this encounter Visit Diagnoses Not on filedocumented in this encounter Care Teams Recreational Resort Manager Relationship Specialty Start Date End Date Luis Manuel Blanca MD [address] [place] [address] PCP - General Family Medicine 06/24/16 documented as of this encounter
--- OUTSIDE RECORDS SUMMARY | 2024-06-28 21:59 | XMS_ITS | Encounter Summary ---
[place] [address] Care Team Providers Care Retail Solar Advisor Name Role Phone Luis Manuel Blanca MD Primary Care Provider [phone] [phone] Reason for Visit * Reason Comments Medication Refill Encounter Details Date Type Department Care Team (Late st Contact Info) Description 10/18/2021 [place] [address] Sarah Serra APRN [facility] [place] [address] Social History Tobacco Use Types Packs/Day Years [...] Telephone Encounter - Loretta Sutherland CMA - 10/19/2021 7:42 AM EDT Surescript request for : ONFI Last rx: 04/14/21 Quantity: 30 Refills: 5 Last appt: 08/25/21 Next appt: 03/01/22 documented in this encounter Plan of Treatment Upcoming Encounters Date Type Department Care Team (Late st Contact Info) Description 08/06/2024 11:00 AM EST [place] [address] Sarah Serra APRN [facility] [place] [address] documented as of this encounter Goals Goal Patient Goal Type Associated Problems Recent Progress Patient-Stated? Author [facility] Medication Compliance and Understanding Patient Facing Action [...] on filedocumented in this encounter Care Teams Retail Solar Advisor Relationship Specialty Start Date End Date Luis Manuel Blanca MD [address] [place] [address] PCP - General Family Medicine 06/24/16 documented as of this encounter
--- OUTSIDE RECORDS SUMMARY | 2024-06-28 21:59 | XMS_ITS | Encounter Summary ---
Author Organization [facility] [place] [address] Care Team Providers Care Steam Table Worker Name Role Phone Luis Manuel Blanca MD Primary Care Provider [phone] [phone] Encounter Details Date Type Department Care Team (Latest Contact Info) Description 07/21/2022 10:00 AM EST TH Visit (TeleHealth) [place] [address] Sarah Serra DISASTER RECOVERY CONSULTANT [facility] [place] [address] Intractable [place]-Gastaut syndrome without status epilepticus; Polypharmacy Social History Tobacco Use Types Packs/Day Years [...] Progress Notes * Sarah Serra APRN - 07/21/2022 10:00 AM EST Subjective: [facility] EPILEPSY BOOKER TELEHEALTH FOLLOW UP NOTE Patient Active Problem List Diagnosis ??? [place]-Gastaut syndrome ??? CAP (community acquired pneumonia) ??? [...] regular follow up due to coronavirus pandemic. They report she is doing well currently. Recently she had another large breakthrough seizure, however this was in the setting of the flu and pneumonia, patient was extremely ill. She was seen at outside hospital, where they started her on Keppra. Caregiver thinks that this was initially going to betemporary but then they discharged her on, she is not quite sure why. She appears to be tolerating this medication well and they deny any side effects. However this means that patient is now on 6 different antiseizure medications. They are also concerned because they gotten letter from their insurance company saying that next year her Banzel will not be covered, they report good effect after starting the Banzel and they are very concerned about the idea of having to stop it. Social History: Social History Socioeconomic History ??? [...] on file Social Factors: QEPILEPSY SOCIAL FACTORS 07/21/22 Employment status: No Currently driving: No Considering [...] daily. (please bubble pack). [facility] 84 capsule 11 ??? BanzeL 400 mg Tablet TAKE 3 TABLETS BY MOUTH EVERY MORNING TAKE 2 TABLETS BY MOUTH AT NOON AND TAKE 3 TABLETS BY MOUTH AT BEDTIME 720 tablet 1 ??? diazePAM (Valtoco) 10 mg/spray (0.1 mL) [place], Non-Aerosol 10 mg by Nasal route as [...] If still not effective please call neurologist residential direct support professional. Max 4mg daily. Take 0.5-1mg prior to [...] Exam: Patient alert and awake, she is smiling at examiner over the telephone, she repeatedly tells me that it is 1:00 which is one of her favorite things to tell us. She appears to be in quite good spirits. Procedure: VNS not interrogated today Output current: 2.0 milliamps Signal frequency: 20 Hertz Pulse Width:500 microseconds On time:14 sec Off time:1.1 min Autostim activated current: 2.0 mA Autostim on time: 30 seconds. Autostim pulse width: 500 microseconds Magnet activated current: 2.25 mA Magnet on time: 30 seconds. Magnet pulse width: 500 microseconds Assessment and Plan: - Epilepsy: Recent large breakthrough seizure in setting of significant illness, she was dischargedfrom outside hospital and Keppra was added to her outpatient regimen. She is tolerating this medication well however this now means that she is on 6 separate antiseizure medications. It is unlikely that this is adding much in terms of seizure control, however it is quite a concern for polypharmacy.We will first try to get her Banzel approved through her insurance, she did have quite a significant improvement following the initiation of this medication and it seems like it is a valuable addition to her regimen. If we are able to get it approved we will then proceed with tapering her off of Keppra. If we are unable to get it approved, then we will keep her on it while we taper her off the Banzel, and then revaluate at that time. - RIA: Readdress in the future - Screen for medication toxicity: No labs today - The patient is currently not a candidate for epilepsy surgery. - Bone health: Pt is currently taking Vitamin D. - Social and psychiatric issues: currently stable. - Caregiver counselled about medications including dosing instructions, side effects, benefit and risk of adverse events, call immediately if s/s of adverse events. - Patient will be seen again by the epilepsy team in 2 months. - Caregiver verbalizes understanding and agrees with plan. Total time spent day of service on discussion, chart review and documenation.: 31 min It was a pleasure speaking with them today . Sarah Serra APRN [facility] Epilepsy Program Department of Neurology This note was created using voice recognition software. It was reviewed for major content, however there may be some small discrepancies due to the limitations of the software program. documented in this encounter Plan of Treatment Upcoming Encounters Date Type Department Care Team (Late st Contact Info) Description 08/06/2024 11:00 AM EST [place] [address] Sarah Serra APRN [facility] [place] [address] documented as of this encounter Goals Goal Patient Goal Type Associated Problems Recent Progress Patient-Stated? Author [facility] Medication Compliance and Understanding Patient Facing Action Plan On track( 024 12:05 PM EDT) Arnel Hurd, [facility] Note: Patient's specific desired goal: reduce number of seizures, with secondary goal of being able to taper some of the other AEDs being used Measured by: seizure record, side effects exhibited Time-frame to meet goal: 3-6 months documented as of this encounter Visit Diagnoses Diagnosis Intractable [place]-Gastaut syndrome without status epilepticus Polypharmacy Issue of repeat prescriptions documented in this encounter Care Teams Steam Table Worker Relationship Specialty Start Date End Date Luis Manuel Blanca MD [address] [place] [address] [address] [facility] 1 [place] [address] PCP - General Family Medicine 06/24/16 documented as of this encounter
--- OUTSIDE RECORDS SUMMARY | 2024-06-28 21:59 | XMS_ITS | Encounter Summary ---
Author Organization [facility] [place] [address] Care Team Providers Care Orchid Transplanter Name Role Phone Luis Manuel Blanca MD Primary Care Provider [phone] [phone] Encounter Details Date Type Department Care Team (Late st Contact Info) Description 04/01/2022 [place] [address] Sarah Serra APRN [facility] [place] [address] Social History Tobacco Use Types Packs/Day Years [...] Telephone Encounter - Lili Otero RN - 04/01/2022 12:03 PM EDT Spoke with patient's caregiver (Lulu). Medication list updated. Outpatient Medications Marked as Taking for the 04/01/22 encounter (Telephone) with Sarah Serra APRN Medication Sig Dispense Refill ??? zonisamide (Zonegran) 100 mg Capsule Take 3 capsules by mouth nightly. (please bubble pack) (Patient taking differently: Take 100 mg by mouth 2 times daily. (please bubble pack). Patient will be taking 300 mg nightly by April.) 84 capsule 11 ??? cannabidioL (Epidiolex) 100 mg/mL Solution 4.3 [...] ??? diazePAM (Valtoco) 10 mg/spray (0.1 mL) [place], Non-Aerosol 10 mg by Nasal route as [...] If still not effective please call neurologist newsperson. Max 4mg daily. Take 0.5-1mg prior to [...] tablet Take 40 mg by mouth daily. Discharge summary and lab results requested from [facility]. * Telephone Encounter - Lili Otero RN - 04/01/2022 11:51 AM EDT ----- Message from Sarah Serra APRN sent at 03/30/2022 2:12 PM EDT ----- Lili, will you do me a huge favor? Could you call caregiver and update med list. I think we are missing porsha change from [facility]. Can you also find out where she was seen in the ED and request those records for my review? Thank you so much!! -Linj luisay documented in this encounter Plan of Treatment Upcoming Encounters Date Type Department Care Team (Late st Contact Info) Description 08/06/2024 11:00 AM EST [place] [address] Sarah Serra APRN [facility] [place] [address] documented as of this encounter Goals Goal [...] on filedocumented in this encounter Care Teams Orchid Transplanter Relationship Specialty Start Date End Date Luis Manuel Blanca MD [address] [place] [address] 1 [place] [address] PCP - General Family Medicine 06/24/16 documented as of this encounter
--- OUTSIDE RECORDS SUMMARY | 2024-06-28 21:59 | XMS_ITS | Encounter Summary ---
[place] [address] Care Team Providers Care Chicken Tender Name Role Phone Luis Manuel Blanca MD Primary Care Provider [phone] [phone] Reason for Visit * Reason Comments Medication Refill Encounter Details Date Type Department Care Team (Late st Contact Info) Description 09/15/2022 Ref[place] [address] [address] [facility] [place] [address] Intractable [place]-Gastaut syndrome without status epilepticus Social History Tobacco [...] 11:00 AM EST Office [place] [address] Sarah Serra METAL CHECKER [facility] [place] [address] documented as of this encounter Goals Goal Patient Goal Type Associated Problems Recent Progress Patient-Stated? 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
--- OUTSIDE RECORDS SUMMARY | 2024-06-28 21:59 | XMS_ITS | Encounter Summary ---
Author [facility] [place] [address] Care Team Providers Care Health Care Assistant Name Role Phone Luis Manuel Blanca MD Primary Care Provider [phone] [phone] Reason for Visit * Reason Comments Medication Refill Encounter Details Date Type Department Care Team (Late st Contact Info) Description 12/13/2021 [place] [address] Sarah Serra APRN [facility] [place] [address] Social History Tobacco Use Types Packs/Day Years [...] Telephone Encounter - Loretta Sutherland CMA - 12/14/2021 7:00 AM EDT Surescript request for : Onfi 20 Last rx: 10/19/21 Quantity: 30 Refills: 1 Surescript request for : phenobarbital Last rx: 07/06/21 Quantity: 180 Refills: 1 Last appt: 08/25/21 Next appt: 7/26/22 documented in this encounter Plan of Treatment Upcoming Encounters Date Type Department Care Team (Late st Contact Info) Description 08/06/2024 11:00 AM EST Office [place] [address] Sarah Serra APRN [facility] [place] [address] documented as of this encounter Goals Goal [...] on filedocumented in this encounter Care Teams Health Care Assistant Relationship Specialty Start Date End Date Luis Manuel Blanca MD [address] [place] [address] PCP - General Family Medicine 06/24/16 documented as of this encounter
--- OUTSIDE RECORDS SUMMARY | 2024-06-28 21:59 | XMS_ITS | Encounter Summary ---
[place] [address] Care Team Providers Care Roll Trucker Name Role Phone Luis Manuel Blanca MD Primary Care Provider [phone] [phone] Reason for Visit * Reason Comments Medication Management Encounter Details Date Type Department Care Team (Late st Contact Info) Description 01/13/2022 Specialty [place] [address] Bj Heck [facility] Social History Tobacco Use Types [...] Progress Notes * Bj Heck [facility] - 01/13/2022 8:54 AM EDT Clinical Management Plan: Refill Specialty Pharmacy Consultation; Bj Heck [facility] Comprehensive Medication Management (CMM) Cinthya [...] medication be held: No Assessment and Recommendations: Title Cognitive Ability: good Allergies and Drug intolerance: Allergies Allergen Reactions ??? Amoxicillin-Pot Clavulanate Rash ??? Risedronate Sodium Nausea And Vomiting Medication Reconciliation Discrepancies (compared to [facility] med list) -Cinthya is having a bit of diarrhea. They have had her stool tested and it was negative. She has notchanged anything in her diet or any meds. They plan to keep her hydrated, use loperamide prn, and do watchful waiting. They will contact the clinic if it becomes intolerable. No issues for now. Specialty Pharmacy Refill Questionnaire Refill Questionnaire 01/13/2022 What is the name of the specialty medication you are refilling? epidiolex Are you taking any new medications? No Please explain - Any new medical condition? No Please explain - Any new allergies? No Any missed doses since your last fill? No Any new side effects that are bothersome? No What date will you need this fill by? 01/22/2022 Adherence: Specialty Med Adherence Patient Demonstrates Understanding of Importance of Adherence: Yes Educational Information or Adherence Tools Provided: Yes Patient Reported X Missed Doses in the Last Month: 0 Provider-Estimated Medication Adherence Level: 90-100% Pt understands no changes to current drug regimen were made at the appointment and that [facility] is providing recommendations (summary located at top of note) for provider review and follow up. Bj Heck RPH 01/13/22 8:56 AM documented in this encounter Plan of Treatment Upcoming Encounters Date Type Department Care Team (Late st Contact Info) Description 08/06/2024 11:00 AM EST [place] [address] Sarah Serra APRN [facility] [place] [address] documented as of this encounter Goals Goal [...] on filedocumented in this encounter Care Teams Roll Trucker Relationship Specialty Start Date End Date Luis Manuel Blanca MD [address] [place] [address] PCP - General Family Medicine 06/24/16 documented as of this encounter
--- OUTSIDE RECORDS SUMMARY | 2024-06-28 21:59 | XMS_ITS | Encounter Summary ---
Author Organization [facility] [address] Care Team Providers Care Parts Sales Counterperson Name Role Phone Luis Manuel Blanca MD Primary Care Provider [phone] Encounter Details Date Type Department Care Team (Late st Contact Info) Description 06/30/2022 [place] [address] Lukas Dean DO [facility] [place] [address] Social History Tobacco Use Types Packs/Day Years [...] encounter Miscellaneous Notes * Telephone Encounter - Lukas Dean DO - 06/30/2022 3:51 PM EST Returned patient's call to [phone], no answer and voicemail not set up. Lukas Dean DO Neurology Resident PGY-2 Department of Neurology [facility] documented in this encounter Plan of Treatment Upcoming Encounters Date Type Department Care Team (Late st Contact Info) Description 08/06/2024 11:00 AM EST [place] [address] Sarah Serra APRN [facility] [place] [address] documented as of this encounter Goals Goal Patient Goal Type Associated Problems Recent Progress Patient-Stated? Author Home Medication Compliance and Understanding Patient Facing Action Plan On track( 024 12:05 PM EDT) Arnel Hurd, [facility] Note: Patient's specific desired goal: reduce number of seizures, with secondary goal of being able to taper some of the other AEDs being used Measured by: seizure record, side effects exhibited Time-frame to meet goal: 3-6 months documented as of this encounter Visit Diagnoses Not on filedocumented in this encounter Care Teams Parts Sales Counterperson Relationship Specialty Start Date End Date Luis Manuel Blanca MD [address] [place] [address] PCP - General Family Medicine 06/24/16 documented as of this encounter
--- OUTSIDE RECORDS SUMMARY | 2024-06-28 21:59 | XMS_ITS | Encounter Summary ---
[place] [address] Care Team Providers Care Processing Archivist Name Role Phone Luis Manuel Blanca MD Primary Care Provider [phone] Reason for Visit * Reason Comments Medication Management Patient Education Encounter Details Date Type Department Care Team (Late st Contact Info) Description 03/14/2022 Specialty [place] [id number] Bj Heck [facility] Social History Tobacco Use Types Packs/Day Years [...] this encounter Progress Notes * Bj Heck [facility] - 03/14/2022 9:34 AM EDT Clinical Management Plan: Refill Specialty Pharmacy Consultation; Bj Heck [facility] Comprehensive Medication Management (CMM) Cinthya Ed Alejandrabrianna [...] beneficiary Provider: plan sponsor pharmacist Visit Type: Med Taper Follow-up Time Spent: 1-15 min Method of Contact: by telephone Cognitive Ability: good Allergies and Drug intolerance: Allergies Allergen Reactions ??? Amoxicillin-Pot Clavulanate Rash ??? Risedronate Sodium Nausea And Vomiting Medication Reconciliation Discrepancies (compared to [facility] med list) -Cinthya had an increase in seizures last month. She was brought in and found to have hyponatremia. They DC-d her oxcarbezapine and started her on zonisamide. She is doing well on the new combo. Specialty Pharmacy Refill Questionnaire Refill Questionnaire 03/14/2022 What is the name of the specialty medication you are refilling? epidiolex Are you taking any new medications? Yes Please explain zonisamide Any new medical condition? Yes Please explain hyponatremia Any new allergies? No Any missed doses since your last fill? No Any new side effects that are bothersome? No What date will you need this fill by? 03/21/2022 Adherence: Specialty Med Adherence Patient Demonstrates Understanding of Importance of Adherence: Yes Educational Information or Adherence Tools Provided: Yes Patient Reported X Missed Doses in the Last Month: 0 Provider-Estimated Medication Adherence Level: 90-100% Pt understands no changes to current drug regimen were made at the appointment and that [facility] is providing recommendations (summary located at top of note) for provider review and follow up. Bj Heck RPH 03/14/22 9:38 AM documented in this encounter Plan of Treatment Upcoming Encounters Date Type Department Care Team (Late st Contact Info) Description 08/06/2024 11:00 AM EST Office [place] [address] Sarah Serra, [facility] [place] [address] documented as of this encounter Goals Goal [...] on filedocumented in this encounter Care Teams Processing Archivist Relationship Specialty Start Date End Date Luis Manuel Blanca MD [address] [place] [address] PCP - General Family Medicine 06/24/16 documented as of this encounter
--- OUTSIDE RECORDS SUMMARY | 2024-06-28 21:59 | XMS_ITS | Encounter Summary ---
[place] [address] Care Team Providers Care Imaging Technician Name Role Phone Luis Manuel Blanca MD Primary Care Provider [phone] Encounter Details Date Type Department Care Team ([facility] st Contact Info) Description 02/12/2022 Telephone Neurology at [address] [address] Austyn Mcgarry MD [address] [place] [address] [place] [address] Social History Tobacco Use Types Packs/Day Years [...] encounter Miscellaneous Notes * Telephone Encounter - Austyn Mcgarry MD - 02/12/2022 10:33 PM EDT I spoke with ld high from [facility] regarding Cinthya Brown who is a 61 female 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 At baseline she takes Zonegran 200mg QHS,[id number] TID, Phenobarb 120mg qhs, and Ativan PRN, in addition to VNS in place. She received 4 mg of Ativan by the caregiver without relief. In the emergency room she was found to have sodium of 124. I recommended loading with Keppra 20 mg/kg IV and start supportive treatment with gradual and appropriate adjustment of serum sodium which is most likely has been chronically subjective tubal values due to ongoing intake of Trileptal. In case the patient and despite the Keppra loading and supportive treatment, she gets recurrent seizures then medications by adding Zonegran 100 mg in the morning will take place. I have not seen the patient personally and the information was only obtained over the phone. I was provided with access to the images ,which I reviewed personally. This, however, is not a replacementof the official radiology read. The aforementioned recommendations do not replace a formal in person neurology consultation. Austyn Mcgarry MD [facility] Neurology documented in this encounter Plan of Treatment Upcoming Encounters Date Type Department Care Team (Late st Contact Info) Description 08/06/2024 11:00 AM EST [place] [address] Sarah Serra APRN [facility] [place] [address] documented as of this encounter Goals Goal Patient Goal Type Associated Problems Recent Progress Patient-Stated? Author [facility] Medication Compliance and Understanding Patient Facing Action Plan On track( 024 12:05 PM EDT) No Arnel Benitez, [facility] Note: Patient's specific desired goal: reduce number of seizures, with secondary goal of being able to taper some of the other AEDs being used Measured by: seizure record, side effects exhibited Time-frame to meet goal: 3-6 months documented as of this encounter Visit Diagnoses Not on filedocumented in this encounter Care Teams Imaging Technician Relationship Specialty Start Date End Date Luis Manuel Blanca MD [address] [place] [address] PCP - General Family Medicine 06/24/16 documented as of this encounter
--- OUTSIDE RECORDS SUMMARY | 2024-06-28 21:59 | XMS_ITS | Encounter Summary ---
[place] [address] Care Team Providers Care Box Maker Wood Name Role Phone Luis Manuel Blanca MD Primary Care Provider [phone] Reason for Visit * Reason Comments Medication Management Medication Refill Encounter Details Date Type Department Care Team (Late st Contact Info) Description 04/06/2022 Specialty [place] [phone] Shay Harding Yadira Social History Tobacco Use [...] Progress Notes * Shay Harding RPH - 04/06/2022 10:16 AM EDT Specialty Pharmacy Consultation; Shay Harding RPH Comprehensive Medication Management (CMM): Specialty Consult, Opt Out Cinthya Brown Diagnosis: Epilepsy Therapy Start Date: ~01/2019 Contact in person or via telephone: phone Ms. Cinthya Brown is a 61 y.o. (1960) female who was contacted in regard to specialty medication. Spoke with caregiver. Caregiver name: Crescencio regarding epidiolex. A review of the medication therapy was performed. The medication was refilled as scheduled, and all medication related questions and concerns were addressed. The specialty pharmacy staff will follow up with the patient 5-7 days prior to next refill. Is the patient willing to proceed with the Clinical Assessment? No Summary and Recommendations: Today I spoke with Crescencio, the caregiver of Cinthya Brown about refilling epidiolex and for a 6month routine follow up consultation. Crescencio declined participating in the full consultation. Crescencio reported no changes in allergies, medications, or medical conditions. She also denied any missed doses orside effects. She had no questions or concerns at this time and we encouraged her to reach out withany. Economic Assessment: Patient is agreeable to medication copay: Yes Copay Amount: $0 (rfts till 04/07/22) Day Supply: 30 Date Needed: 04/16/22 Therapy Assessment: Appropriate Therapy: Yes Current Medication Dosing/Route/Frequency: Epidiolex 100mg/ml 4.3ml po bid Additional equipment/supplies required: no Care Plan Reviewed and Approved by Pharmacist : Yes Problem List: Patient Active Problem List Diagnosis Code ??? Status epilepticus G40.901 ??? Sleep apnea G47.30 ??? Mental retardation F79 ??? Seizure R56.9 ??? CAP (community acquired pneumonia) J18.9 ??? 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 Shay Harding RP 04/06/22 10:18 AM documented in this encounter Plan of Treatment Upcoming Encounters Date Type Department Care Team (Late st Contact Info) Description 08/06/2024 11:00 AM EST [place] [address] Sarah Serra APRN [facility] [place] [address] documented as of this encounter Goals Goal Patient Goal Type Associated Problems Recent Progress Patient-Stated? Author [facility] Medication Compliance and Understanding Patient Facing Action Plan On track( 024 12:05 PM EDT) Arnel Hurd [facility] Note: Patient's specific desired goal: reduce number of seizures, with secondary goal of being able to taper some of the other AEDs being used Measured by: seizure record, side effects exhibited Time-frame to meet goal: 3-6 months documented as of this encounter Visit Diagnoses Not on filedocumented in this encounter Care Teams Box Maker Wood Relationship Specialty Start Date End Date Luis Manuel Blanca MD [address] [place] [address] PCP - General Family Medicine 06/24/16 documented as of this encounter
--- OUTSIDE RECORDS SUMMARY | 2024-06-28 21:59 | XMS_ITS | Encounter Summary ---
[place] [address] Care Team Providers Care Dough Cutting Machine Operator Name Role Phone Luis Manuel Blanca MD Primary Care Provider [phone] Reason for Visit * Reason Comments Medication Management Encounter Details Date Type Department Care Team (Late st Contact Info) Description 12/20/2021 Specialty [place] [phone] Bj Heck [facility] Social History Tobacco Use Types Packs/Day Years [...] this encounter Progress Notes * Bj Heck [facility] - 12/20/2021 9:15 AM EDT Clinical Management Plan: Refill Specialty Pharmacy Consultation; jB Heck [facility] Comprehensive Medication Management (CMM) Cinthya Brown Ms. [...] be held: No Assessment and Recommendations: Title Type of Medication Management: chronic disease management Referred By: pharmacist Recipient: beneficiary Provider: plan sponsor pharmacist Visit Type: Misc Follow-up Time Spent: 1-15 min Cognitive Ability: good Allergies and Drug intolerance: Allergies Allergen Reactions ??? Amoxicillin-Pot Clavulanate Rash ??? Risedronate Sodium Nausea And Vomiting Medication Reconciliation Discrepancies (compared to [facility] med list) -Cinthya is now only taking nexium once daily. Specialty Pharmacy Refill Questionnaire Refill Questionnaire 12/20/2021 What is the name of the specialty medication you are refilling? epidiolex Are you taking any new medications? No Please explain - Any new medical condition? No Please explain - Any new allergies? No Any missed doses since your last fill? No Any new side effects that are bothersome? No What date will you need this fill by? 12/25/2021 Adherence: Specialty Med Adherence Patient Demonstrates Understanding [...] review and follow up. Bj Heck RPH 12/20/21 9:17 AM documented in this encounter Plan of Treatment Upcoming Encounters Date Type Department Care Team (Late st Contact Info) Description 08/06/2024 11:00 AM EST Office [place] [address] Sarah Serra APRN [facility] [place] [address] documented as of this encounter Goals Goal Patient Goal Type Associated Problems Recent Progress Patient-Stated? Author [employer] Medication Compliance and Understanding Patient Facing Action Plan On track( 024 12:05 PM EDT) No Arnel Benitez, [facility] Note: Patient's specific desired goal: reduce number of seizures, with secondary goal of being able to taper some of the other AEDs being used Measured by: seizure record, side effects exhibited Time-frame to meet goal: 3-6 months documented as of this encounter Visit Diagnoses Not on filedocumented in this encounter Care Teams Dough Cutting Machine Operator Relationship Specialty Start Date End Date Luis Manuel Blanca MD [address] [place] [address] PCP - General Family Medicine 06/24/16 documented as of this encounter
--- OUTSIDE RECORDS SUMMARY | 2024-06-28 21:59 | XMS_ITS | Encounter Summary ---
[place] [address] Care Team Providers Care Medicine Teacher Name Role Phone Luis Manuel Blanca MD Primary Care Provider [phone] Encounter Details Date Type Department Care Team (Late st Contact Info) Description 07/14/2022 Ref[place] [address] Sarah Serra APRN [facility] [place] [address] Social History Tobacco Use Types Packs/Day Years [...] encounter Miscellaneous Notes * Telephone Encounter - Risa Carrizales RN - 07/14/2022 10:13 AM EST surescript for epidiolex 4.3 ml bid - last rx 02/16/22 258 ml and 5 RF Last appt 03/23/22 Next appt 07/21/23 From last visit note: - Epilepsy: Doing very well since switch to zonegran, no changes today. documented in this encounter Plan of Treatment Upcoming Encounters Date Type Department Care Team (Late st Contact Info) Description 08/06/2024 11:00 AM EST Office [place] [address] Sarah Serra APRN [facility] [place] [address] documented as of this encounter Goals Goal [...] on filedocumented in this encounter Care Teams Medicine Teacher Relationship Specialty Start Date End Date Luis Manuel Blanca MD [address] [place] [address] [facility] [address] [place] [address] PCP - General Family Medicine 06/24/16 documented as of this encounter
--- OUTSIDE RECORDS SUMMARY | 2024-06-28 21:59 | XMS_ITS | Encounter Summary ---
[place] [address] Care Team Providers Care Bag Machine Helper Name Role Phone Luis Manuel Blanca MD Primary Care Provider [phone] Reason for Visit * Reason Comments Medication Management Encounter Details Date Type Department Care Team (Late st Contact Info) Description 08/04/2022 Specialty [place] [phone] Bj Heck [facility] Social History Tobacco Use Types Packs/Day Years [...] Progress Notes * Bj Heck [facility] - 08/04/2022 12:52 PM EST Clinical Management Plan: Refill Specialty Pharmacy Consultation; Bj Heck [facility] Comprehensive Medication Management (CMM) Cinthya Brown Ms. Cinthya Brown is a 61 y.o. (1960) female who was contacted in regard to a specialty medication refill reminder. Contact made with caregiver. Caregiver name: Crescencio (Caregiver) regarding [...] And Vomiting Medication Reconciliation Discrepancies (compared to [facility] med list) No Specialty Pharmacy Refill Questionnaire Refill Questionnaire 08/04/2022 What is the name of the specialty medication you are refilling? epidiolex Are you taking any new medications? No Please explain - Any new medical condition? No Please explain - Any new allergies? No Any new side effects that are bothersome? No What date will you need this fill by? 08/17/2022 Adherence: Any missed doses? No Patient understands no changes to current drug regimen were made. Bj Heck RPH 08/04/22 12:53 PM documented in this encounter Plan of Treatment Upcoming Encounters Date Type Department Care Team (Late st Contact Info) Description 08/06/2024 11:00 AM EST Office [place] [address] Sarah Serra APRN [facility] [address] documented as of this encounter Goals Goal Patient Goal Type Associated Problems Recent Progress Patient-Stated? Author [facility] Medication Compliance and Understanding Patient Facing Action Plan On track( 024 12:05 PM EDT) No Arnel Benitez [facility] Note: Patient's specific desired goal: reduce number of seizures, with secondary goal of being able to taper some of the other AEDs being used Measured by: seizure record, side effects exhibited Time-frame to meet goal: 3-6 months documented as of this encounter Visit Diagnoses Not on filedocumented in this encounter Care Teams Bag Machine Helper Relationship Specialty Start Date End Date Luis Manuel Blanca MD [address] [place] [address] 1 [place] [address] PCP - General Family Medicine 06/24/16 documented as of this encounter
--- OUTSIDE RECORDS SUMMARY | 2024-06-28 21:59 | XMS_ITS | Encounter Summary ---
[place] [address] Care Team Providers Care Geophysical Prospecting Surveyor Name Role Phone Luis Manuel Blanca MD Primary Care Provider [phone] Reason for Visit * Reason Comments Medication Management Patient Education Encounter Details Date Type Department Care Team (Late st Contact Info) Description 06/23/2021 Specialty [place] [phone] Bj Heck [facility] [...] Heck [facility] - 06/23/2021 8:41 AM EST Clinical Management Plan: Refill Specialty Pharmacy Consultation; Bj Heck [facility] Comprehensive Medication Management (CMM) Cinthya Ed Alejandrabrianna [...] And Vomiting Medication Reconciliation Discrepancies (compared to [facility] med list) No Specialty Pharmacy Refill Questionnaire Refill Questionnaire 06/23/2021 What is the name of the specialty medication you are refilling? epidiolex Are you taking any new medications? No Please explain - Any new medical condition? No Please explain - Any new allergies? No Any new side effects that are bothersome? No What date will you need this fill by? 07/07/2021 Adherence: Any missed doses? No Patient understands no changes to current drug regimen were made. Bj Heck RPH 06/23/21 8:42 AM documented in this encounter Plan of Treatment Upcoming Encounters Date Type Department Care Team (Late st Contact Info) Description 08/06/2024 11:00 AM EST Office [place] [address] Sarah Serra APRN [facility] [place] [address] documented as of this encounter Goals Goal [...] on filedocumented in this encounter Care Teams Geophysical Prospecting Surveyor Relationship Specialty Start Date End Date Luis Manuel Blanca MD [address] [place] [address] 1 [place] [address] PCP - General Family Medicine 06/24/16 documented as of this encounter
--- OUTSIDE RECORDS SUMMARY | 2024-06-28 22:00 | XMS_ITS | Encounter Summary ---
[place] [address] Care Team Providers Care Car Ferrier Name Role Phone Luis Manuel Blanca MD Primary Care Provider [phone] Reason for Visit * Reason Comments Medication Management Patient Education Encounter Details Date Type Department Care Team (Late st Contact Info) Description 08/27/2020 Specialty [place] [id number] Bj Heck [facility] Social History Tobacco Use [...] this encounter Progress Notes * Bj Heck [facility] - 08/27/2020 9:15 AM EST Specialty Pharmacy Consultation; Bj Heck [facility] Comprehensive Medication Management (CMM) Cinthya Brown Diagnosis: epilepsy Therapy Start Date: 02/02/19 Contact in person or via telephone:phone Ms. Cinthya Brown is a 59 y.o. (1960) female who was contacted in regard to specialty medication. Spoke with caregiver. Caregiver name: Heidi regarding EPIDIOLEX. A review of the medication therapy was performed. The medication was Refilled as scheduled, and all medication related questions and concerns were addressed. The specialty pharmacy staff will follow up with the patient 5-7 days prior to next refill. Is the patient willing to proceed with the Clinical Assessment? Yes Summary and Recommendations: Today I spoke to Heidi the caregiver of Cinthya Brown for her 6 moth epidiolex follow up consult. We went over all of her medications, allergies, and medical conditions without finding any discrepancies. Heidi states that Cinthya has seen a significant reduction in the frequency and severity of her seizures since starting the epidiolex. She states that she is still getting roughly 2 seizure clustersmonthly with 3-6 seizures in each cluster. This is a dramatic improvement from where she was 18 months ago. Heidi states that Cinthya is not having any serious side effects. She sometimes gets sleepy inthe afternoon and doesn't want to eat as much with her evening meals, but Heidi states that this is tolerable and not an issue. I asked her to call us if these ever turn into larger issues and she states that she will. Overall they are using less rescue benzodiazepines since starting the epidiolex. Juan Antoniotates that Cinthya is in a happy and safe environment and did not have any concerns with her quality of life. She says that Cinthya is mostly happy and enjoys playing her games. Her labs are not due again until December 2020 and they hope the pandemic will be over by then as getting into the hospital has been difficult. Clinic follow-up needed: yes - for labs in December 2020 Allergies and Drug intolerance: Allergies Allergen Reactions ??? Amoxicillin-Pot Clavulanate Rash ??? Risedronate Sodium Nausea And Vomiting Problem List: Patient Active Problem List Diagnosis Code ??? Status epilepticus G40.901 ??? Sleep apnea G47.30 ??? Mental retardation F79 ??? Seizure R56.9 ??? CAP (community acquired pneumonia) J18.9 ??? 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 Medication Reconciliation Discrepancies (compared to [facility] med list) no Medication Adherence Patient reported X missed doses in the last month: 0 Any gaps in refill history greater than 2 weeks in the last 3 months: no Demonstrates understanding of importance of adherence: yes Informant: caregiver Reliability of informant: reliable Provider-estimated medication adherence level: good Reasons for non-adherence: no problems identified Adherence tools used: medication list, directed education Support network for adherence: home health agency Medication List: Current Outpatient Medications Medication Sig Note Dispense Refill ??? cannabidioL (Epidiolex) 100 mg/mL Solution 4.3 ml twice daily. 258 mL 3 ??? Onfi 20 mg Tablet Take 1 tablet by mouth nightly. Brand name only. 30 tablet 5 ??? PHENobarbitaL (Luminal) 60 mg Tablet Take 2 tablets by mouth nightly. 180 tablet 1 ??? TrileptaL 300 mg Tablet Take 1 tablet by mouth Daily at Noon. Brand name only 90 tablet 3 ??? TrileptaL 600 mg Tablet Take 1 tablet by mouth 2 times daily. Brand name only 180 tablet 3 ??? sertraline (ZOLOFT) 100 mg Tablet Take 1 tablet by mouth daily. 90 tablet 3 ??? BanzeL 400 mg Tablet 3 tablets in the AM 2 tablets at lunch 3 tablets at bedtime 720 tablet 3 ??? midazolam, PF, (VERSED) 5 mg/mL Solution 5 mg by nasal route as needed (seizure clusters). Using atomizer, administer 2.5 mg (0.5ml) into nasal passage, then repeat with other side. 20 mL 3 ??? clotrimazole-betamethasone (LOTRISONE) 1-0.05 % Cream Apply 1 Application topically as needed. 0 ??? NYSTOP Powder Apply 1 Application topically as needed. 0 ??? LORazepam (ATIVAN) 1 mg Tablet Take 1-2 tablets at onset of seizure symptoms, if ineffective after 30 minutes may repeat dose. If still not effective please call neurologist investigations manager. Max 4mg daily. Take 0.5-1mg prior to seizure triggering activity. 45 tablet 5 ??? cholecalciferol, Vitamin D3, (VITAMIN D) 1,000 unit Capsule Take 1 capsule by mouth 2 times daily. 60 capsule 5 ??? diaZEPam (DIASTAT ACUDIAL) 12.5-15-17.5-[address] 15 mg rectally as needed (1 syringe forcluster of seizures.). if ineffective after 30 minutes may repeat dose. If still not effective please call neurologist investigations manager. 1 kit 3 ??? acetaminophen (TYLENOL) 500 mg Tablet Take 500 mg by mouth 2 times daily. ??? QUEtiapine (SEROQUEL) 50 mg Tablet Take 50 mg by mouth nightly. 05/21/2019: 50mg Nightly ??? melatonin 3 mg Tablet Take 6 mg by mouth nightly. ??? furosemide (LASIX) 20 mg Tablet Take 20 mg by mouth daily. 05/21/2019: 10mg PRN ??? loratadine (CLARITIN) 10 mg Tablet Take [...] Encounters: 05/21/19 78 11/20/18 94 05/15/18 79 Pertinent Lab values: Lab Results Component Value [...] Vaccine PF, Quadrivalent 05/21/2019 Assessment and Recommendations: Title Type of Medication Management: chronic disease management, targeted medication review Referred By: pharmacist Recipient: caregiver Provider: plan sponsor pharmacist Visit Type: [facility] Follow-up Method of Contact: by telephone Cognitive Ability: good Patient Counseling Counseled the patient on the following: reviewed medication changes since last visit, doses and administration discussed, possible adverse effects and management discussed, possible drug and prescription drug interactions discussed, lab monitoring and follow-up discussed, therapeutic rationale discussed, cost of medications and cost implications discussed, adherence and missed doses discussed, pharmacy contact information discussed, monitoring medication discussed, preventative care discussed, recommendations to doctor discussed, reminder to refill or berry picker machine operator medication discussed, self-monitoring discussed, timing of medications discussed, lifestyle modification education, referral needs discussed Drug Medication Management Summary Topics discussed: reviewed medication changes since last visit, doses and administration discussed, possible adverse effects and management discussed, possible drug and prescription drug interactions discussed, lab monitoring and follow-up discussed, therapeutic rationale discussed, cost of medications and cost implications discussed, adherence and missed doses discussed, pharmacy contact information discussed, monitoring medication discussed, preventative care discussed, recommendations to doctor discussed, reminder to refill or berry picker machine operator medication discussed, self-monitoring discussed, timing of medications discussed, lifestyle modification education, referral needs discussed Number of adverse drug events identified: 0 Time spent: 16-30 min Treatment Outcomes 08/27/2020 0918 Disease progression: Stable Patient Overall Status: Stable [...] use oldest product first Relevant lab data Patient verbalizes understanding and is able to read-back instructions on self-administration/injection, proper storage, drug stability, importance of adherence and management strategies, side effectavoidance and mitigation strategies, and interruptions in therapy: Yes Physical and Cognitive Assessment: Functional limitations identified: yes - epilepsy Cognitive limitations identified: yes - epilepsy Concern regarding orientation/memory: yes - epilepsy Concern with reasoning/judgement: yes - epilepsy Is patient a fall risk: yes - epilepsy Other needed information: no Social Assessment: Does the patient have a primary intensive care unit nurse? yes - Heidi Does the patient have an emergency contact on file: Yes Does patient need referral to high school social studies tutor: No Does patient need referral to advocacy group: No Home Health Assessment: Is the patient in a safe home environment? Yes Is the patient able to store their medication as directed? Yes Does the patient have a support network at home? Yes Reviewed potential home safety hazards with patient: Yes Economic Assessment: Patient is agreeable to medication copay: yes Copay Amount: $0 Day Supply: 30 Date Needed: 09/03/20 Copay assistance required: no Therapy Assessment: Current Medication Dosing/Route/Frequency: epidiolex 4.3ml po BID Appropriate Therapy: Yes Effective: yes - less frequent and severe seizures Patient-Reported Side Effects: no Patient Goals: Patient's specific desired goal: Reduce seizures Measured by: number of seizures Time-frame to meet goal: 6 months Is the patient on track to achieve goals of therapy? yes If no, what are the barriers and action plan to reach the goal: n/a Care Plan and Interventions: Care Plan Reviewed and Approved by both Pharmacist and Patient: Yes Did Care Plan Change? No If yes: Change to plans of care based on: Patient's request: n/a Condition: n/a Response to therapy: n/a Provider request: n/a Follow-up needed: No Interventions (if applicable): No Patient experienced change in condition that affects treatment: no Additional care/services needed: no Educational information or adherence tools provided: No Additional equipment/supplies required: no Pharmacist follow-up needed: Yes Patient Satisfaction with Care/Services Provided: Yes Informed patient of specialty pharmacy services: Yes -Patient received welcome packet: yes Date Received: 01/29/19 Delivery Method: register -Patient returned signed Rights & Responsibilities: yes Date Received: 01/29/19 Delivery Method: register -Patient is aware a licensed pharmacist is available 24 hours a day, 7 days a week to discuss medication-related questions or concerns: Yes -Patient verbalizes understanding of education on the common side effect profile of the medication:Yes -The patient is able to call 911 or seek urgent care if signs/symptoms of allergy or harmful adverse reactions occur: Yes Patient understands no changes to current drug regimen were made at the appointment and that [facility] is[facility]iding recommendations (summary located at top of note) for provider review and follow up. Bj Heck RPH 08/27/20 9:18 AM documented in this encounter Plan of Treatment Upcoming Encounters Date Type Department Care Team (Late st Contact Info) Description 08/06/2024 11:00 AM EST [place] [address] [facility] [place] [address] documented as of this encounter Goals Goal Patient Goal Type Associated Problems Recent Progress Patient-Stated? Author [facility] Medication Compliance and Understanding Patient Facing Action Plan On track( 024 12:05 PM EDT) No Arnel Benitez [facility] Note: Patient's specific desired goal: reduce number of seizures, with secondary goal of being able to taper some of the other AEDs being used Measured by: seizure record, side effects exhibited Time-frame to meet goal: 3-6 months documented as of this encounter Visit Diagnoses Not on filedocumented in this encounter Care Teams Car Ferrier Relationship Specialty Start Date End Date Luis Manuel Blanca MD [address] [place] [address] PCP - General Family Medicine 06/24/16 documented as of this encounter
--- OUTSIDE RECORDS SUMMARY | 2024-06-28 22:00 | XMS_ITS | Encounter Summary ---
[place] [address] Care Team Providers Care Wholesale Buyer Name Role Phone Luis Manuel Blanca MD Primary Care Provider [phone] Encounter Details Date Type Department Care Team (Late st Contact Info) Description 07/28/2020 [place] [address] Sarah Serra REACHER [facility] [place] [address] Social History Tobacco Use Types Packs/Day Years [...] 11:00 AM EST [place] [phone] Sarah Serra REACHER [facility] [place] [address] documented as of this encounter Goals Goal Patient Goal Type Associated Problems Recent Progress Patient-Stated? Author [facility] Medication Compliance and Understanding Patient Facing Action Plan On track( 024 12:05 PM EDT) Arnel Hurd, [facility] Note: Patient's specific desired goal: reduce number of seizures, with secondary goal of being able to taper some of the other AEDs being used Measured by: seizure record, side effects exhibited Time-frame to meet goal: 3-6 months documented as of this encounter Visit Diagnoses Not on filedocumented in this encounter Care Teams Wholesale Buyer Relationship Specialty Start Date End Date Luis Manuel Blanca MD [address] [place] [address] PCP - General Family Medicine 06/24/16 documented as of this encounter
--- OUTSIDE RECORDS SUMMARY | 2024-06-28 22:00 | XMS_ITS | Encounter Summary ---
[place] [address] Care Team Providers Care Insole Stiffener Name Role Phone Luis Manuel Blanca MD Primary Care Provider [phone] Reason for Visit * Reason Comments Medication Management Patient Education Encounter Details Date Type Department Care Team (Late st Contact Info) Description 06/04/2020 Specialty [place] [phone] Bj Heck [facility] Social History Tobacco Use Types [...] this encounter Progress Notes * Bj Heck [facility] - 06/04/2020 12:18 PM EDT Clinical Management Plan: Refill Specialty Pharmacy Consultation; Bj Heck [facility] Comprehensive Medication Management (CMM) Cinthya Ed Kevin Ms. Cinthya Brown is a 59 y.o. (1960) female who was contacted in regard to a specialty medication refill reminder. Spoke with patient regarding EPIDIOLEX. A review of the medication therapy was performed. The medication was Refilled as scheduled, and all medication related questions and concerns were addressed. The specialty pharmacy staff will follow up with the patient 5-7 days prior to next refill. Was a change made to the Care Plan: no Assessment and Recommendations: Title Type of Medication Management: chronic disease management, targeted medication review Referred By: pharmacist Recipient: caregiver Provider: pharmacist - other [facility] Follow-[facility] Method of Contact: by telephone Cognitive Ability: good Allergies and Drug intolerance: Allergies Allergen Reactions ??? Amoxicillin-Pot Clavulanate Rash ??? Risedronate Sodium Nausea And Vomiting Medication Reconciliation Discrepancies (compared to [facility] med list) -none New medications: no New medical conditions: no New allergies: no Adherence: Medication Adherence Patient reported X missed doses in the last month: 0 Any gaps in refill history greater than 2 weeks in the last 3 months: no Demonstrates understanding of importance of adherence: yes Informant: spouse Reliability of informant: reliable Provider-estimated medication adherence level: good Adherence tools used: medication list, directed education Support network for adherence: home health agency Are you experiencing any side effects from your medications? yes some sedation in the afternoons. Not affecting quality of life. Pt understands no changes to current drug regimen were made at the appointment and that [facility] is providing recommendations (summary located at top of note) for provider review and follow up. Bj Heck RPH 06/04/20 12:19 PM documented in this encounter Plan of Treatment Upcoming Encounters Date Type Department Care Team (Late st Contact Info) Description 08/06/2024 11:00 AM EST [place] [address] Sarah Serra APRN [facility] [place] [address] documented as of this encounter Goals Goal Patient Goal Type Associated Problems Recent Progress Patient-Stated? Author [facility] Medication Compliance and Understanding Patient Facing Action Plan On track( 024 12:05 PM EDT) No Arnel Benitez [facility] Note: Patient's specific desired goal: reduce number of seizures, with secondary goal of being able to taper some of the other AEDs being used Measured by: seizure record, side effects exhibited Time-frame to meet goal: 3-6 months documented as of this encounter Visit Diagnoses Not on filedocumented in this encounter Care Teams Insole Stiffener Relationship Specialty Start Date End Date Luis Manuel Blanca MD [address] [place] [address] PCP - General Family Medicine 06/24/16 documented as of this encounter
--- OUTSIDE RECORDS SUMMARY | 2024-06-28 22:00 | XMS_ITS | Encounter Summary ---
Author Organization [facility] [place] [address] Care Team Providers Care Climate Change Risk Assessor Name Role Phone Luis Manuel Blanca MD Primary Care Provider [phone] Reason for Visit * Reason Comments Medication Refill Encounter Details Date Type Department Care Team (Late st Contact Info) Description 02/15/2021 [place] [address] Sarah Serra APRN [facility] [place] [address] Social History Tobacco Use Types Packs/Day Years [...] Telephone Encounter - Loretta Sutherland CMA - 02/16/2021 9:46 AM EDT Surescript request for : zoloft Last rx: 11/26/19 Quantity: 90 tabs Refills: 3 Last appt: 11/26/19 Next appt: Pt needs a follow up appt- MSG sent to nursing secretary pool documented in this encounter Plan of Treatment Upcoming Encounters Date Type Department Care Team (Late st Contact Info) Description 08/06/2024 11:00 AM EST [place] [address] Sarah Serra APRN [facility] [place] [address] documented as of this encounter Goals Goal Patient Goal Type Associated Problems Recent Progress Patient-Stated? Author Home Medication Compliance and Understanding Patient Facing Action Plan On track( 024 12:05 PM EDT) No Arnel Benitez, [facility] Note: Patient's specific desired goal: reduce number of seizures, with secondary goal of being able to taper some of the other AEDs being used Measured by: seizure record, side effects exhibited Time-frame to meet goal: 3-6 months documented as of this encounter Visit Diagnoses Not on filedocumented in this encounter Care Teams Climate Change Risk Assessor Relationship Specialty Start Date End Date Luis Manuel Blanca MD [address] [place] [address] [address] [facility] [address] [place] [address] PCP - General Family Medicine 06/24/16 documented as of this encounter
--- OUTSIDE RECORDS SUMMARY | 2024-06-28 22:00 | XMS_ITS | Encounter Summary ---
Author [place] [address] Care Team Providers Care Applications Consultant Name Role Phone Luis Manuel Blanca MD Primary Care Provider [phone] Reason for Visit * Reason Comments Medication Management Patient Education Encounter Details Date Type Department Care Team (Late st Contact Info) Description 05/11/2020 Specialty [place] [phone] Bj Heck [facility] Social History Tobacco Use Types [...] this encounter Progress Notes * Bj Heck [facility] - 05/11/2020 12:02 PM EDT Clinical Management Plan: Refill Specialty Pharmacy Consultation; Bj Heck [facility] Comprehensive Medication Management (CMM) Cinthya Ed Flakotoniobrianna Ms. Cinthya Brown is a 59 y.o. (1960) female who was contacted in regard to a specialty medication refill reminder. Spoke with caregiver. Caregiver name: Heidi regarding [...] caregiver Provider: plan sponsor pharmacist Visit Type: [facility] Follow-up Method of Contact: by telephone Cognitive Ability: good Allergies and Drug intolerance: Allergies Allergen Reactions ??? Amoxicillin-Pot Clavulanate Rash ??? Risedronate Sodium Nausea And Vomiting Medication Reconciliation Discrepancies (compared to [facility] med list) -none New medications: no New [...] experiencing any side effects from your medications? no Pt understands no changes to current drug regimen were made at the appointment and that [facility] is providing recommendations (summary located at top of note) for provider review and follow up. Bj Heck RPH 05/11/20 12:04 PM documented in this encounter Plan of Treatment Upcoming Encounters Date Type Department Care Team (Late st Contact Info) Description 08/06/2024 11:00 AM EST [place] [address] Sarah Serra APRN [facility] [address] documented as of this encounter Goals Goal Patient Goal Type Associated Problems Recent Progress Patient-Stated? Author [facility] Medication Compliance and Understanding Patient Facing Action Plan On track( 024 12:05 PM EDT) No Arnel Benitez [facility] Note: Patient's specific desired goal: reduce number of seizures, with secondary goal of being able to taper some of the other AEDs being used Measured by: seizure record, side effects exhibited Time-frame to meet goal: 3-6 months documented as of this encounter Visit Diagnoses Not on filedocumented in this encounter Care Teams Applications Consultant Relationship Specialty Start Date End Date Luis Manuel Blanca MD [address] [place] [address] PCP - General Family Medicine 06/24/16 documented as of this encounter
--- OUTSIDE RECORDS SUMMARY | 2024-06-28 22:00 | XMS_ITS | Encounter Summary ---
[place] [address] Care Team Providers Care Estimating Engineer Name Role Phone Luis Manuel Blanca MD Primary Care Provider [phone] Reason for Visit * Reason Onset Date Comments Medication Refill Medication Refill 11/30/2020 Encounter Details Date Type Department Care Team (Late st Contact Info) Description 11/30/2020 [place] [address] Sarah Serra, PRODUCTION OPERATIONS ENGINEER [facility] [place] [address] Social History Tobacco Use Types Packs/Day Years [...] Telephone Encounter - Lili Otero RN - 11/30/2020 1:09 PM EDT Spoke to patient's caregiver, requesting for Trileptal 300 mg rx refill. Patient will be out by tomorrow. Spoke to Mehreen Dixon, reports that they need a new rx for Trileptal, nothing on file. Prescription request sent to Sarah Serra APRN for approval. documented in this encounter Plan of Treatment Upcoming Encounters Date Type Department Care Team (Late st Contact Info) Description 08/06/2024 11:00 AM EST [place] [address] Sarah Serra APRN [facility] [place] [address] documented as of this encounter Goals Goal Patient Goal Type Associated Problems Recent Progress Patient-Stated? Author Home Medication Compliance and Understanding Patient Facing Action Plan On track( 024 12:05 PM EDT) No Arnel Benitez, [facility] Note: Patient's specific desired goal: reduce number of seizures, with secondary goal of being able to taper some of the other AEDs being used Measured by: seizure record, side effects exhibited Time-frame to meet goal: 3-6 months documented as of this encounter Visit Diagnoses Not on filedocumented in this encounter Care Teams Estimating Engineer Relationship Specialty Start Date End Date Luis Manuel Blanca MD [address] [place] [address] PCP - General Family Medicine 06/24/16 documented as of this encounter
--- OUTSIDE RECORDS SUMMARY | 2024-06-28 22:00 | XMS_ITS | Encounter Summary ---
[place] [address] Care Team Providers Care Director Career Name Role Phone Luis Manuel Blanca MD Primary Care Provider [phone] Reason for Visit * Reason Comments Medication Management Patient Education Encounter Details Date Type Department Care Team (Late st Contact Info) Description 11/09/2020 Specialty Pharm[place] [phone] Bj Heck [facility] Social History Tobacco Use Types [...] this encounter Progress Notes * Bj Heck [facility] - 11/09/2020 9:32 AM EDT Clinical Management Plan: Refill Specialty Pharmacy Consultation; Bj Heck [facility] Comprehensive Medication Management (CMM) Cinthya Alejandrabrianna Ms. Cinthya Brown is a 60 y.o. (1960) female who was contacted in regard to a specialty medication refill reminder. Contact made with caregiver. Caregiver name: Marita's mother in law. regarding Epidiolex. A review of the medication [...] And Vomiting Medication Reconciliation Discrepancies (compared to [facility] med list) No Specialty Pharmacy Refill Questionnaire Refill Questionnaire 11/09/2020 What is the name of the specialty medication you are refilling? epidiolex Are you taking any new medications? Yes Please explain Took an antibiotic for a UTI last month. Caregiver did not know name. Since UTI cleared no issues Any new medical condition? Yes Please explain UTI since cleared Any new allergies? No Any new side effects that are bothersome? No Adherence: Any missed doses? No Patient understands no changes to current drug regimen were made.. Bj Heck RPH 11/09/20 9:33 AM documented in this encounter Plan of Treatment Upcoming Encounters Date Type Department Care Team (Late st Contact Info) Description 08/06/2024 11:00 AM EST Office [place] [address] Sarah Serra APRN [facility] [place] [address] documented as of this encounter Goals Goal Patient Goal Type Associated Problems Recent Progress Patient-Stated? Author [facility] Medication Compliance and Understanding Patient [...] filedocumented in this encounter Care Teams Director Career Relationship Specialty Start Date End Date Luis Manuel Blanca MD [address] [place] [address] PCP - General Family Medicine 06/24/16 documented as of this encounter
--- OUTSIDE RECORDS SUMMARY | 2024-06-28 22:00 | XMS_ITS | Encounter Summary ---
[place] [address] Care Team Providers Care Burial Vault Setter Name Role Phone Luis Manuel Blanca MD Primary Care Provider [phone] Reason for Visit * Reason Comments Medication Refill Encounter Details Date Type Department Care Team (Late st Contact Info) Description 12/20/2020 [place] [address] Sarah Serra DIRECTOR [employer] [facility] [place] [address] Social History Tobacco Use Types Packs/Day Years [...] 11:00 AM [place] [phone] Sarah Serra APRN [facility] [place] [address] documented as of this encounter Goals Goal Patient Goal Type Associated Problems Recent Progress Patient-Stated? Author DH Home Medication Compliance and Understanding Patient Facing Action Plan On track( 024 12:05 PM EDT) Arnel Hurd, [facility] Note: Patient's specific desired goal: [...] End Date Luis Manuel Blanca MD [address] [facility] [address] [place] [address] PCP - General Family Medicine 06/24/16 documented as of this encounter
--- OUTSIDE RECORDS SUMMARY | 2024-06-28 22:00 | XMS_ITS | Encounter Summary ---
[place] [address] Care Team Providers Care Foundry Melt Supervisor Name Role Phone Luis Manuel Blanca MD Primary Care Provider [phone] Reason for Visit * Reason Onset Date Comments Prior Authorization 05/22/2020 Encounter Details Date Type Department Care Team (Late st Contact Info) Description 05/22/2020 [place] [phone] Sarah Serra APRN [facility] [place] [address] Prior Authorization Social History Tobacco Use Types [...] * Telephone Encounter - Alondra Gregory - 05/25/2020 2:20 PM EDTSummary: FAXED PA APPROVAL Images from the original note were not included. * Telephone Encounter - Alondra Gregory - 05/25/2020 2:19 PM EDTSummary: CMM APPROVAL Images from the original note were not included. * Telephone Encounter - Alondra Gregory [place] - 05/23/2020 12:04 AM EDTSummary: CMM PA SUBMISSION Images from the original note were not included. * Telephone Encounter - Alondra Gregory - 05/23/2020 12:02 AM EDTSummary: CMM PA BROWN Images from the original note were not included. * Telephone Encounter - Kassandra Miranda - 05/22/2020 11:41 AM EDT Provider patient sees in Clinic: Sarah Serra Caller and relationship (if other than patient-full name): Ta Lawson Call Back Number: [phone] Ok to leave a message: Yes Name of Medication requiring PA: Trileptal 600mg When will patient be out of medication: Tonight (Pharmacy Coverage Information can be found on the back of the patient's insurance card under pharmacy benefits. This information must be supplied in order for medication PA's to be processed. If thecaller does not have this information they must get the information and call back to the office) Pharmacy Benefits/Coverage Company: Medicare A/B Pharmacy Benefits/Coverage ID #: [id number] Pharmacy Benefits/Coverage Company Pharmacy used by patient: [facility] Pharm[facility] location: [place], [place] Disposition of Call: ??? Red Arrow Message Reason red arrow Message:Patient will be out tonight. Routine Message sent to the Nurse documented in this encounter Plan of Treatment Upcoming Encounters Date Type Department Care Team (Late st Contact Info) Description 08/06/2024 11:00 AM EST [place] [address] Sarah Serra APRN [facility] [place] [address] documented as of this encounter Goals Goal Patient Goal Type Associated Problems Recent Progress Patient-Stated? Author [facility] Medication Compliance and Understanding Patient Facing Action Plan On track( 024 12:05 PM EDT) Arnel Hurd, [facility] Note: Patient's specific desired goal: reduce number of seizures, with secondary goal of being able to taper some of the other AEDs being used Measured by: seizure record, side effects exhibited Time-frame to meet goal: 3-6 months documented as of this encounter Visit Diagnoses Not on filedocumented in this encounter Care Teams Foundry Melt Supervisor Relationship Specialty Start Date End Date Luis Manuel Blanca MD [address] [place] [address] PCP - General Family Medicine 06/24/16 documented as of this encounter
--- OUTSIDE RECORDS SUMMARY | 2024-06-28 22:00 | XMS_ITS | Encounter Summary ---
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 Social History Tobacco [...] Telephone Encounter - Risa Carrizales RN - 04/05/2021 4:32 PM EDT Last rx for Banzel 02/18 1 mo and no RF Last rx for ONfi 03/22/21 1 mo and no RF * Telephone Encounter - Risa Carrizales RN - 04/05/2021 4:30 PM EDT FUV sched for 04/14/21 Surescript for onfi and banzel documented in this encounter Plan of Treatment Upcoming Encounters Date Type Department Care Team (Late st Contact Info) Description 08/06/2024 11:00 AM EST Office [place] [address] Sarah Serra APRN [facility] [place] [address] documented as of this encounter Goals Goal [...] of this encounter Visit Diagnoses Diagnosis 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
--- OUTSIDE RECORDS SUMMARY | 2024-06-28 22:00 | XMS_ITS | Encounter Summary ---
[place] [address] Care Team Providers Care Flatbed Press Operator Name Role Phone Luis Manuel Blanca MD Primary Care Provider [phone] [phone] Reason for Visit * Reason Comments Medication Management Patient Education Encounter Details Date Type Department Care Team (Late st Contact Info) Description 12/18/2020 Specialty Pharm[place] [phone] Bj Heck [facility] Social History Tobacco Use Types [...] Progress Notes * Bj Heck [facility] - 12/18/2020 8:47 AM EDT Clinical Management Plan: Refill Specialty Pharmacy Consultation; Bj Heck [facility] Comprehensive Medication Management (CMM) Cinthya Ed Alejandrabrianna Ms. Cinthya Brown is a 60 y.o. (1960) female who was contacted in regard to a specialty medication refill reminder. Contact made with caregiver. Caregiver name: Kaylynn mcgregorex. A review of the medication therapy was [...] No Specialty Pharmacy Refill Questionnaire Refill Questionnaire 12/18/2020 What is the name of the specialty medication you are refilling? epidiolex Are you taking any new medications? No Please explain - Any new medical condition? No Please explain - Any new allergies? No Any new side effects that are bothersome? No What date will you need this fill by? 12/24/2020 Adherence: Any missed doses? No Patient understands no changes to current drug regimen were made.. Bj Heck RPH 12/18/20 8:48 AM documented in this encounter Plan of Treatment Upcoming Encounters Date Type Department Care Team (Late st Contact Info) Description 08/06/2024 11:00 AM EST Office [place] [address] Sarah Serra APRN [facility] [place] [address] documented as of this encounter Goals Goal Patient Goal Type Associated Problems Recent Progress Patient-Stated? Author [facility] Medication Compliance and Understanding Patient Facing Action Plan On track( 024 12:05 PM EDT) No Arnel Benitez [facility] Note: Patient's specific desired goal: reduce number of seizures, with secondary goal of being able to taper some of the other AEDs being used Measured by: seizure record, side effects exhibited Time-frame to meet goal: 3-6 months documented as of this encounter Visit Diagnoses Not on filedocumented in this encounter Care Teams Flatbed Press Operator Relationship Specialty Start Date End Date Luis Manuel Blanca MD [address] [place] [address] 1 [place] [address] PCP - General Family Medicine 06/24/16 documented as of this encounter
--- OUTSIDE RECORDS SUMMARY | 2024-06-28 22:00 | XMS_ITS | Encounter Summary ---
[place] [address] Care Team Providers Care Channeling Machine Operator Name Role Phone Luis Manuel Blanca MD Primary Care Provider [phone] Reason for Visit * Reason Onset Date Comments Prior Authorization 05/10/2021 Encounter Details Date Type Department Care Team (Late st Contact Info) Description 05/10/2021 [place] [address] Sarah Serra APRN [facility] [place] [address] Prior Authorization Social History Tobacco Use Types [...] * Telephone Encounter - Alondra Gregory - 05/11/2021 1:59 PM EDT Images from the original note were not included. * Telephone Encounter - Alondra Gregory - 05/11/2021 11:52 AM EDT Images from the original note were not included. * Telephone Encounter - Del Valentine - 05/10/2021 3:16 PM EDT Vidya stated Blister packs are due for this Pt Wed and the only thing missing is the onfi, hoping this can be expedited. * Telephone Encounter - Johanna Batista - 05/10/2021 2:13 PM EDT Provider patient sees in Clinic: Sarah Serra Caller and relationship (if other than patient-full name): [email or web address] Call Back Number: [phone] Ok to leave a message: yes Name of Medication requiring PA: Onfi When will patient be out of medication: N/a (Pharmacy Coverage Information can be found on the back of the patient's insurance card under pharmacy benefits. This information must be supplied in order for medication PA's to be processed. If thecaller does not have this information they must get the information and call back to the office) Pharmacy Benefits/Coverage Company: [employer] Pharmacy Benefits/Coverage ID #: n/a Pharmacy Benefits/Coverage Company Phone Number: n/a Pharmacy used by patient: [email or web address] Pharmacy location: [facility] [address] [address] Disposition of Call: ??? Routine Message sent to the Nurse x Nurse/Water Quality Specialist contacted via: Message: y Call: n Pager: n documented in this encounter Plan of Treatment Upcoming Encounters Date Type Department Care Team (Late st Contact Info) Description 08/06/2024 11:00 AM EST [place] [address] SchomSarah monroy APRN [facility] [place] [address] documented as of this encounter Goals Goal Patient Goal Type Associated Problems Recent Progress Patient-Stated? Author [facility] Home Medication Compliance and Understanding Patient Facing Action Plan On track( 024 12:05 PM EDT) Arnel Hurd, [facility] Note: Patient's specific desired goal: reduce number of seizures, with secondary goal of being able to taper some of the other AEDs being used Measured by: seizure record, side effects exhibited Time-frame to meet goal: 3-6 months documented as of this encounter Visit Diagnoses Not on filedocumented in this encounter Care Teams Channeling Machine Operator Relationship Specialty Start Date End Date Luis Manuel Blanca MD [address] [place] [address] PCP - General Family Medicine 06/24/16 documented as of this encounter
--- OUTSIDE RECORDS SUMMARY | 2024-06-28 22:00 | XMS_ITS | Encounter Summary ---
[place] [address] Care Team Providers Care Science Specialist Name Role Phone Luis Manuel Blanca MD Primary Care Provider [phone] Reason for Visit * Reason Comments Medication Management Patient Education Encounter Details Date Type Department Care Team (Late st Contact Info) Description 09/21/2020 Specialty Pharm[place] [address] Bj Heck [facility] Social History [...] * Bj Heck [facility] - 09/21/2020 9:39 AM EST Clinical Management Plan: Refill Specialty [...] And Vomiting Medication Reconciliation Discrepancies (compared to [facility] med list) No Specialty Pharmacy Refill Questionnaire Refill Questionnaire 09/21/2020 Are you taking any new medications? No Any new medical condition? No Any new allergies? No Any new side effects that are bothersome? No Adherence: Any missed doses? No Patient understands no changes to current drug regimen were made.. Bj Heck RPH 09/21/20 9:40 AM documented in this encounter Plan of Treatment Upcoming Encounters Date Type Department Care Team (Late st Contact Info) Description 08/06/2024 11:00 AM EST Office [place] [address] Sarah Serra MASTER [facility] [place] [address] documented as of this encounter Goals Goal Patient Goal Type Associated Problems Recent Progress Patient-Stated? Author [facility] Medication Compliance and Understanding Patient [...] on filedocumented in this encounter Care Teams Science Specialist Relationship Specialty Start Date End Date Luis Manuel Blanca MD [address] [place] [address] PCP - General Family Medicine 06/24/16 documented as of this encounter
--- OUTSIDE RECORDS SUMMARY | 2024-06-28 22:00 | XMS_ITS | Encounter Summary ---
[place] [address] Care Team Providers Care Kiss Setter Hand Name Role Phone Luis Manuel Blanca MD Primary Care Provider [phone] [phone] Reason for Visit * Reason Comments Medication Management Encounter Details Date Type Department Care Team (Late st Contact Info) Description 07/01/2020 Specialty [place] [address] Moy Long [facility] Social History Tobacco [...] as of this encounter Progress Notes * Moy Long [facility] - 07/01/2020 12:38 PM EST Clinical Management Plan: Refill Specialty Pharmacy Consultation; Moy Long [facility] Comprehensive Medication Management (CMM) Cinthya Brown is a 59 y.o. (1960) female who was contacted in regard to a specialty medication refill reminder. Spoke with Adele regarding Epidiolex. A review of the medication [...] disease management, targeted medication review Referred By: provider Recipient: beneficiary Provider: plan sponsor pharmacist Visit Type: [facility] Follow-up Method of Contact: by telephone Cognitive Ability: good Allergies and Drug intolerance: Allergies Allergen Reactions ??? Amoxicillin-Pot Clavulanate Rash ??? Risedronate Sodium Nausea And Vomiting Medication Reconciliation Discrepancies (compared to [facility] med list) -none New medications: no New medical conditions: no New allergies: no Adherence: Medication Adherence Patient reported X missed doses in the last month: 0 Any gaps in refill history greater than 2 weeks in the last 3 months: no Demonstrates understanding of importance of adherence: yes Informant: patient Reliability of informant: reliable Provider-estimated medication adherence level: 90-100% Reasons for non-adherence: no problems identified Adherence tools used: medication list, directed education Support network for adherence: home health agency Confirmed plan for next specialty medication refill: delivery by pharmacy Refills needed for supportive medications: not needed Are you experiencing any side effects from your medications? no Pt understands no changes to current drug regimen were made at the appointment and that [facility] is providing recommendations (summary located at top of note) for provider review and follow up. Moy Long RPH 07/01/20 12:43 PM documented in this encounter Plan of Treatment Upcoming Encounters Date Type Department Care Team (Late st Contact Info) Description 08/06/2024 11:00 AM EST Office [place] [address] Sarah Serra APRN [facility] [place] [address] documented as of this encounter Goals Goal Patient Goal Type Associated Problems Recent Progress Patient-Stated? Author [facility] Medication Compliance and Understanding Patient Facing Action Plan On track( 024 12:05 PM EDT) No Arnel Benitez [facility] Note: Patient's specific desired goal: reduce number of seizures, with secondary goal of being able to taper some of the other AEDs being used Measured by: seizure record, side effects exhibited Time-frame to meet goal: 3-6 months documented as of this encounter Visit Diagnoses Not on filedocumented in this encounter Care Teams Kiss Setter Hand Relationship Specialty Start Date End Date Luis Manuel Blanca MD [address] [place] [address] [address] [facility] [address] [place] [address] PCP - General Family Medicine 06/24/16 documented as of this encounter
--- OUTSIDE RECORDS SUMMARY | 2024-06-28 22:00 | XMS_ITS | Encounter Summary ---
[place] [address] Care Team Providers Care Color Worker Name Role Phone Luis Manuel Blanca MD Primary Care Provider [phone] [phone] Reason for Visit * Reason Onset Date Comments Prior Authorization 06/22/2020 Encounter Details Date Type Department Care Team (Late st Contact Info) Description 06/22/2020 Telephone [place] [phone] Sarah Serra APRN [facility] [place] [address] Prior Authorization Social History Tobacco Use Types [...] * Telephone Encounter - Alondra Gregory - 06/24/2020 7:02 PM ESTSummary: JORJE REDDY REQUEST Images from the original note were not included. ? Information regarding your request The patient currently has access to the requested medication and a Prior Authorization is not needed for the patient/medication. * Telephone Encounter - Alondra Gregory - 06/24/2020 6:59 PM ESTSummary: JORJE BROWN Images from the original note were not included. * Telephone Encounter - Sarah Serra APRN - 06/23/2020 3:27 PM EST Jonathan Sanchesys, Not quite sure whats going on here but I sent in a new script for the brand name. If thereare issues let me know. * Telephone Encounter - Jeanna Oro - 06/23/2020 10:30 AM EST Patient is calling back in regards to this and is stating that she needs the brand name medication,rather than the generic. She states that a new prescription for the brand name medication needs to be sent over to the pharmacy and she only has one pill let for tonight. Please call back to discuss. * Telephone Encounter - Mague Gordillo - 06/22/2020 3:15 PM EST Call Center / Security Program Manager Message Prescription Refill Request Clinical Security Program Manager message Provider patient sees in Clinic: Marsye Caller and relationship (if other than patient-full name): Crescencio Call back Number: [phone] Ok to leave a message: y Name of Med: Onfi Strength of Pills: 20 mg tablet Dosing Directions: Take 1 tablet by mouth nightly. Brand name only. 30 or 90 Day Supply: 90 [place] [facility] [place] Last Appointment: 11/26/19 Next Appointment: (IF CALL IS FROM PATIENT/FAMILY AND THERE IS NO FOLLOW UP SCHEDULED REVIEW CHART TO SEE WHEN APPOINTMENT IS NEEDED AND SCHEDULE BEFORE SENDING MESSAGE) no note about a f/u time Is Patient out of Medication?: y documented in this encounter Plan of Treatment Upcoming Encounters Date Type Department Care Team (Late st Contact Info) Description 08/06/2024 11:00 AM EST [place] [address] [facility] [place] [place] [address] documented as of this encounter Goals Goal Patient Goal Type Associated Problems Recent Progress Patient-Stated? Author Home Medication Compliance and Understanding Patient Facing Action Plan On track( 024 12:05 PM EDT) Arnel Hurd, [facility] Note: Patient's specific desired goal: reduce number of seizures, with secondary goal of being able to taper some of the other AEDs being used Measured by: seizure record, side effects exhibited Time-frame to meet goal: 3-6 months documented as of this encounter Visit Diagnoses Not on filedocumented in this encounter Care Teams Color Worker Relationship Specialty Start Date End Date Luis Manuel Blanca MD [address] [place] [address] PCP - General Family Medicine 06/24/16 documented as of this encounter
--- OUTSIDE RECORDS SUMMARY | 2024-06-28 22:00 | XMS_ITS | Encounter Summary ---
[place] [address] Care Team Providers Care Shipyard Supervisor Name Role Phone Luis Manuel Blanca MD Primary Care Provider [phone] [phone] Reason for Visit * Reason Comments Medication Management Patient Education Encounter Details Date Type Department Care Team (Late st Contact Info) Description 05/31/2021 Specialty [place] [phone] Bj Heck [facility] - 05/31/2021 9:27 AM EDT Clinical Management Plan: Refill Specialty [...] And Vomiting Medication Reconciliation Discrepancies (compared to [facility] med list) No Specialty Pharmacy Refill Questionnaire Refill Questionnaire 05/31/2021 What is the name of the specialty medication you are refilling? epidiolex Are you taking any new medications? No Please explain - Any new medical condition? No Please explain - Any new allergies? No Any new side effects that are bothersome? No What date will you need this fill by? 06/05/2021 Adherence: Any missed doses? No Patient understands no changes to current drug regimen were made. Bj Heck RPH 05/31/21 9:28 AM documented in this encounter Plan of Treatment Upcoming Encounters Date Type Department Care Team (Late st Contact Info) Description 08/06/2024 11:00 AM EST Office [place] [address] Sarah Serra APRN [facility] [place] [address] documented as of this encounter Goals Goal Patient Goal Type Associated Problems Recent Progress Patient-Stated? Author [facility] Medication Compliance and Understanding Patient Facing Action Plan On track( 024 12:05 PM EDT) No Arnel Benitez [facility] Note: Patient's specific desired goal: reduce number of seizures, with secondary goal of being able to taper some of the other AEDs being used Measured by: seizure record, side effects exhibited Time-frame to meet goal: 3-6 months documented as of this encounter Visit Diagnoses Not on filedocumented in this encounter Care Teams Shipyard Supervisor Relationship Specialty Start Date End Date Luis Manuel Blanca MD [address] [place] [address] [address] [place] [address] PCP - General Family Medicine 06/24/16 documented as of this encounter
--- OUTSIDE RECORDS SUMMARY | 2024-06-28 22:00 | XMS_ITS | Encounter Summary ---
[place] [address] Care Team Providers Care Timber Harvester Operator Name Role Phone Luis Manuel Blanca MD Primary Care Provider [phone] [phone] Reason for Visit * Reason Onset Date Comments Results 07/17/2020 Encounter Details Date Type Department Care Team (Late st Contact Info) Description 07/17/2020 [place] [phone] Sarah Serra RESERVE OPERATOR [facility] [place] [address] Results Social History Tobacco Use Types Packs/Day Years [...] Telephone Encounter - Lili Otero RN - 07/17/2020 2:45 PM EST Spoke to patient's caregiver. Made aware that per Sarah Serra RESERVE OPERATOR: It all looks okay to me as long as she is feeling well! I don't see the phenbarb level though so that would be important to track down. Reports that Cinthya is noted to be a little more tired and takes at least 2 hours nap in the afternoon and sleeps all night. I'm not sure if this is her just being Cinthya. No noted increase in seizure activity. Lulu advised if symptom worsen or for any other concerns. Verbalized understanding. Sarah Serra APRN made aware. * Telephone Encounter - Kassandra Miranda - 07/17/2020 10:22 AM EST Call Center / Agent Producer Message Lab/Test results Request Provider patient sees in Clinic: Sarah Serra Caller: Ta Lawson If not Pt / Relation to pt: Ta Call back Number: [phone] OK to leave message: Yes Reason for call: lab/test results ??? Which results are being requested:Blood Work ??? When were they done:06/11/2020 ??? Where were they done:[facility] Any additional information for the nurse/provider: Disposition of Call: ?? Routine Message sent to the Nurse: yes documented in this encounter Plan of Treatment Upcoming Encounters Date Type Department Care Team (Late st Contact Info) Description 08/06/2024 11:00 AM EST [place] [address] Sarah Serra APRN [facility] [place] [address] documented as of this encounter Goals Goal Patient Goal Type Associated Problems Recent Progress Patient-Stated? Author [facility] Medication Compliance and Understanding Patient Facing Action [...] on filedocumented in this encounter Care Teams Timber Harvester Operator Relationship Specialty Start Date End Date Luis Manuel Blanca MD [address] [facility] [address] [place] [address] PCP - General Family Medicine 06/24/16 documented as of this encounter
--- OUTSIDE RECORDS SUMMARY | 2024-06-28 22:00 | XMS_ITS | Encounter Summary ---
[place] [address] Care Team Providers Care Mixer Dry Food Products Name Role Phone Luis Manuel Blanca MD Primary Care Provider [phone] [phone] Reason for Visit * Reason Onset Date Comments Prior Authorization 05/23/2020 Encounter Details Date Type Department Care Team (Late st Contact Info) Description 05/23/2020 [place] [phone] Sarah Serra APRN [facility] [place] [address] Prior Authorization Social History Tobacco Use Types [...] Telephone Encounter - Alondra Gregory - 05/25/2020 2:50 PM EDTSummary: CMM RESPONSE - DOSE DOES NOT NEED PA Images from the original note were not included. ? Information regarding your request The patient currently has access to the requested medication and a Prior Authorization is not needed for the patient/medication. * Telephone Encounter - Bri Alondra Madison - 05/25/2020 2:47 PM EDTSummary: CMM REQUEST - SILVERSCRIPT Images from the original note were not included. * Telephone Encounter - IzzyAlondra kirby - 05/25/2020 2:45 PM EDTSummary: PT HAS SILVER SCRIPT Images from the original note were not included. * Telephone Encounter - PaulyAlondra thomas - 05/25/2020 2:44 PM EDTSummary: INSURANCE RESPONSE Images from the original note were not included. * Telephone Encounter - IzzyAlondra kirby - 05/23/2020 12:18 AM EDTSummary: CMM PA REQUEST Images from the original note were not included. * Telephone Encounter - Alondra Gregory - 05/23/2020 12:17 AM EDTSummary: CMM PA BROWN Images from the original note were not included. documented in this encounter Plan of Treatment Upcoming Encounters Date Type Department Care Team (Late st Contact Info) Description 08/06/2024 11:00 AM EST [place] [address] Sarah Serra APRN [facility] [place] [address] documented as of this encounter Goals Goal Patient Goal Type Associated Problems Recent Progress Patient-Stated? Author DH Home Medication Compliance and Understanding Patient Facing Action Plan On track( 024 12:05 PM EDT) No Arnel Benitez, [facility] Note: Patient's specific desired goal: reduce number of seizures, with secondary goal of being able to taper some of the other AEDs being used Measured by: seizure record, side effects exhibited Time-frame to meet goal: 3-6 months documented as of this encounter Visit Diagnoses Not on filedocumented in this encounter Care Teams Mixer Dry Food Products Relationship Specialty Start Date End Date Luis Manuel Blanca MD [address] [place] [address] PCP - General Family Medicine 06/24/16 documented as of this encounter
--- OUTSIDE RECORDS SUMMARY | 2024-06-28 22:00 | XMS_ITS | Encounter Summary ---
Author Organization [facility] [place] [address] Care Team Providers Care Director Sterile Processing Name Role Phone Luis Manule Blanca MD Primary Care Provider [phone] Reason for Visit * Reason Comments Medication Refill Encounter Details Date Type Department Care Team (Late st Contact Info) Description 11/14/2020 Refill [place] [address] Sarah Serra APRN [facility] [place] [address] Social History Tobacco Use Types Packs/Day Years [...] encounter Miscellaneous Notes * Telephone Encounter - Johanna Batista - 11/14/2020 6:53 PM EDT [facility] provider is calling to follow up on this request, please call back to discuss. [phone] documented in this encounter Plan of Treatment Upcoming Encounters Date Type Department Care Team (Late st Contact Info) Description 08/06/2024 11:00 AM EST Office [place] [address] Sarah Serra APRN [facility] [place] [address] documented as of this encounter Goals Goal Patient Goal Type Associated Problems Recent Progress Patient-Stated? Author [facility] Medication Compliance and Understanding Patient [...] filedocumented in this encounter Care Teams Director Sterile Processing Relationship Specialty Start Date End Date Luis Manuel Blanca MD [address] [place] [address] PCP - General Family Medicine 06/24/16 documented as of this encounter
--- OUTSIDE RECORDS SUMMARY | 2024-06-28 22:00 | XMS_ITS | Encounter Summary ---
[place] [address] Care Team Providers Care Railroad Track Repair Supervisor Name Role Phone Luis Manuel Blanca MD Primary Care Provider [phone] [phone] Reason for Visit * Reason Comments Medication Management Patient Education Encounter Details Date Type Department Care Team (Late st Contact Info) Description 04/01/2021 Specialty [place] [phone] Bj Heck [facility] Social History Tobacco Use Types Packs/Day Years [...] * Bj Heck [facility] - 04/01/2021 12:34 PM EDT Specialty Pharmacy Consultation; Bj Heck [facility] Comprehensive Medication Management (CMM): Specialty Consult, Opt Out Cinthya Brown Diagnosis: epilepsy Therapy Start Date: 01/2019 Contact in person or via telephone: phone Ms. Cinthya Brown is a 60 y.o. [...] No Summary and Recommendations: Today I spoke to the caregiver of Cinthya Brown in regards to her 6 month follow up consultation. She states that the only recent change to Cinthya's medications, allergies, or medical conditions is that Cinthya was recently vaccinated with the J/J COVID vaccine. She has not had any injection reactions to the vaccine, but they are watching her closely for the next two weeks incase the mild fever/myalgia caused by the vaccine cause any seizure flares. They have not noticed any yet. They want to note that Cinthya is doing well on the epidiolex therapy and has been for almost 2.5 years. She is havingless frequent and severe seizures compared to her baseline. They opted her out of the full consult today as there have been no large changes in her care plan and they feel as though she is doing well. They had no questions for the pharmacy today and know that they can call us at any time if anything arises. We will continue to reach out to them monthly for refills and then biannually for consultsgoing forward. Economic Assessment: Patient is agreeable to medication copay: Yes Copay Amount: $0 Day Supply: 30 Date Needed: 04/10/21 Therapy Assessment: Appropriate Therapy: Yes Current Medication Dosing/Route/Frequency: Epidiolex 100mg/ml 4.3ml po BID Additional equipment/supplies required: no Care Plan Reviewed [...] patient of specialty pharmacy services: Yes -Patient will be provided with welcome packet: Yes Date to be provided: 01/29/19 Delivery Method: mail -Patient returned signed Rights & Responsibilities: Yes Date to be provided: 01/29/19 Delivery Method: mail -Patient is aware a licensed pharmacist is [...] review and follow up. Bj Heck RPH 04/01/21 12:36 PM documented in this encounter Plan of Treatment Upcoming Encounters Date Type Department Care Team (Late st Contact Info) Description 08/06/2024 11:00 AM EST [place] [address] Sarah Serra SALESPERSON DRIVER [facility] [place] [address] documented as of this encounter Goals Goal Patient Goal Type Associated Problems Recent Progress Patient-Stated? Author [facility] Medication Compliance and Understanding Patient Facing Action Plan On track( 024 12:05 PM EDT) No Arnel Benitez, [facility] Note: Patient's specific desired goal: reduce number of seizures, with secondary goal of being able to taper some of the other AEDs being used Measured by: seizure record, side effects exhibited Time-frame to meet goal: 3-6 months documented as of this encounter Visit Diagnoses Not on filedocumented in this encounter Care Teams Railroad Track Repair Supervisor Relationship Specialty Start Date End Date Luis Manuel Blanca MD [address] [place] [address] PCP - General Family Medicine 06/24/16 documented as of this encounter
--- OUTSIDE RECORDS SUMMARY | 2024-06-28 22:00 | XMS_ITS | Encounter Summary ---
[place] [address] Care Team Providers Care Bridge Engineer Name Role Phone Luis Manuel Blanca MD Primary Care Provider [phone] [phone] Reason for Visit * Reason Onset Date Comments Prior Authorization 06/07/2021 2 medication s Encounter Details Date Type Department Care Team (Late st Contact Info) Description 06/07/2021 [place] [phone] Sarah Serra, DINO [facility] [place] [address] Prior Authorization (2 medications) Social History Tobacco Use Types Packs/Day Years [...] Telephone Encounter - Alondra Gregory - 06/08/2021 2:53 PM EDT Images from the original note were not included. * Telephone Encounter - Alondra Gregory - 06/08/2021 10:46 AM EDT Images from the original note were not included. * Telephone Encounter - Cierra Melchor - 06/08/2021 9:07 AM EDT Vidya is calling back from [facility], patient will be out soon. Vidya would like a call back when this authorization has been approved * Telephone Encounter - Marlene Romano - 06/07/2021 12:31 PM EDT Provider patient sees in Clinic: Sarah Serra ?? Caller and relationship (if other than patient-full name): Vidya-[facility] Call Back Number: [phone]?? Ok to leave a message: yes? Name of Medication requiring PA: 1) TrileptaL 300 mg Tablet 2) TrileptaL 600 mg Tablet When will patient be out of medication: N/a ?? (Pharmacy Coverage Information can be found on the back of the patient's insurance card under pharmacy benefits. This information must be supplied in order for medication PA's to be processed.?? If the caller does not have this information they must get the information and call back to the office) ?? Pharmacy Benefits/Coverage Company: [employer] [facility] Benefits/Coverage ID #: n/a Pharmacy Benefits/Coverage Company Phone Number: n/a ?? Pharmacy used by patient: [facility] Pharmacy location: -[facility] - [address] [address] ? Disposition of Call: ? Routine Message sent to the Nurse x ?? Nurse/Investigative Assistant contacted via: ?? Message: y Call: n Pager: n ?? documented in this encounter Plan of Treatment Upcoming Encounters Date Type Department Care Team (Late st Contact Info) Description 08/06/2024 11:00 AM EST Office [place] [address] [address] Serra [address]N [facility] [place] [address] documented as of this encounter Goals Goal [...] on filedocumented in this encounter Care Teams Bridge Engineer Relationship Specialty Start Date End Date Luis Manuel Blanca MD [address] [place] [address] PCP - General Family Medicine 06/24/16 documented as of this encounter
--- OUTSIDE RECORDS SUMMARY | 2024-06-28 22:00 | XMS_ITS | Encounter Summary ---
Author Organization [facility] [place] [address] Care Team Providers Care Nursing Manager Name Role Phone Luis Manuel Blanca MD Primary Care Provider [phone] [phone] Encounter Details Date Type Department Care Team (Latest Contact Info) Description 05/12/2021 9:50 PM EDT - 05/12/2021 11:59 PM EDT [place] [phone] Discharge Disposition: Home Social History Tobacco Use [...] Sig Dispensed Refills Start Date End Date clotrimazole-betameth asone (LOTRISONE) 1-0.05 % Cream Apply 1 Application [...] tablet Take 40 mg by mouth daily. diazePAM (Valtoco) 10 mg/spray (0.1 mL) Henderson, Non-Aerosol 10 mg by Nasal route as needed (seizure clusters (call if ineffective) Max dose 10mg daily unless instucted otherwise by office.). 2 each 3 04/30/2021 12/20/2022 Onfi 20 mg Tablet Take 1 tablet by mouth nightly. 30 tablet 5 04/14/2021 10/19/2021 sertraline (ZOLOFT) 100 mg Tablet TAKE ONE TABLET BY MOUTH EVERY DAY 90 tablet 3 04/14/2021 04/11/2023 TrileptaL 300 mg Tablet TAKE 1 TABLET BY MOUTH DAILY AT NOON 90 tablet 3 04/14/2021 03/23/2022 TrileptaL 600 mg Tablet Take 1 tablet by mouth 2 times daily. Brand name only 180 tablet 3 04/14/2021 03/23/2022 PHENobarbitaL (Luminal) 60 mg Tablet Take 2 tablets by mouth nightly. 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 (call 911 if ineffective) 2 each 3 04/06/2021 05/20/2021 cannabidioL (Epidiolex) 100 mg/mL Solution 4.3 ml twice daily. 258 mL 5 04/01/2021 09/10/2021 LORazepam (ATIVAN) 1 mg TabletIndications:Epi lepsy seizure, generalized, convulsive Take 1-2 tablets at onset of seizure symptoms, if ineffective after 30 minutes may repeat dose. If still not effective please call neurologist labor relations representative. Max 4mg daily. Take 0.5-1mg prior to seizure triggering activity. 45 tablet 5 05/21/2019 04/11/2023 cholecalciferol, Vitamin D3, (VITAMIN D) 1,000 unit Capsule Take 1 capsule by mouth 2 times daily. 60 capsule 5 11/20/2018 04/11/2023 melatonin 3 mg Tablet Take 6 mg by mouth nightly. 11/30/2023 furosemide (LASIX) 20 mg Tablet Take 20 mg by mouth daily. 07/19/2022 documented as of this encounter Plan of Treatment Upcoming Encounters Date Type Department Care Team (Late st Contact Info) Description 08/06/2024 11:00 AM EST [place] [address] Sarah Serra APRN [facility] [place] [address] documented as of this encounter Goals Goal [...] Associated Diagnosis Comments SURGICAL PATHOLOGY REPORT Routine 05/12/2021 1:30 PM EDT documented in this encounter Results * Surgical Pathology Report (05/12/2021 1:30 PM EDT) Final Diagnosis [id number] ? Location: [facility] The signing pathologist has (i) examined the relevant preparation(s) for the specimen(s) and (ii) rendered or confirmed the diagnosis(es). . ?Surgical Pathology DIAGNOSIS A - Polyp transverse colon x2: - ??Fragments of tubular adenoma(s). Electronically signed by: ?Vicente LORENZO PhD, [place] Verified: ??05/18/2021 15:57 ??Pathologist Performed at: ??-[facility] [place], [place], [place] SPECIMEN(S) SUBMITTED A - Polyp transverse colon x2, _ (_) Referring Identifier: ?(not provided) Report to: Dr. Jagdish Blanca CLINICAL INFORMATION History of colon polyps; history of colon polyps SPECIMEN PROCESSING A - Labeled/Fixativ e: Polyp transverse colon, formalin. Quantity/Size: Six, average 0.2 cm. Tissue Description: Soft, servin-brown tissues. Sections/Proces sing: Submitted en toto ??in 1 cassette labeled A1. ??MLL 05/18/2021 3:57 PM EDT [facility] GI Biopsy 05/12/2021 1:30 PM EDT 05/12/2021 1:30 PM EDT Chris Hagen DO PATHOLOGY/CYTOL OGY ORDERABLES [facility] [place] [address] documented in this encounter Visit Diagnoses Not on filedocumented in this encounter Care Teams Nursing Manager Relationship Specialty Start Date End Date Luis Manuel Blanca MD [address] [place] [address] [address] [place] [address] PCP - General Family Medicine 06/24/16 documented as of this encounter
--- OUTSIDE RECORDS SUMMARY | 2024-06-28 22:00 | XMS_ITS | Encounter Summary ---
[place] [address] Care Team Providers Care Bakery Helper Name Role Phone Luis Manuel Blanca MD Primary Care Provider [phone] [phone] Reason for Visit * Reason Onset Date Comments Prior Authorization 05/03/2021 Encounter Details Date Type Department Care Team (Late st Contact Info) Description 05/03/2021 [place] [phone] Sarah Serra APRN [facility] [place] [address] Prior Authorization Social History Tobacco Use Types [...] * Telephone Encounter - Alondra Gregory - 05/05/2021 10:03 AM EDT Images from the original note were not included. * Telephone Encounter - Alondra Gregory - 05/04/2021 1:28 PM EDT Images from the original note were not included. * Telephone Encounter - Alondra Gregory - 05/04/2021 1:24 PM EDT Images from the original note were not included. * Telephone Encounter - Lili Otero RN - 05/03/2021 11:27 AM EDT Patient's Nayzilam will be discontinued. Cinthya will be switched to Diazepam (valtoco) nasal spay (see Sarah Serra APRN's note). This will be needing PA approval. Report forwarded to Alondra Gregory (PA Coordinator). documented in this encounter Plan of Treatment Upcoming Encounters Date Type Department Care Team (Late st Contact Info) Description 08/06/2024 11:00 AM EST Office [place] [address] Sarah Serra RN [facility] [place] [address] documented as of this encounter Goals Goal Patient Goal Type Associated Problems Recent Progress Patient-Stated? Author [facility] Medication Compliance and Understanding Patient Facing Action Plan On track( 024 12:05 PM EDT) No Arnel Benitez, [facility] Note: Patient's specific desired goal: reduce number of seizures, with secondary goal of being able to taper some of the other AEDs being used Measured by: seizure record, side effects exhibited Time-frame to meet goal: 3-6 months documented as of this encounter Visit Diagnoses Not on filedocumented in this encounter Care Teams Bakery Helper Relationship Specialty Start Date End Date Luis Manuel Blanca MD [address] [place] [address] PCP - General Family Medicine 06/24/16 documented as of this encounter
--- OUTSIDE RECORDS SUMMARY | 2024-06-28 22:00 | XMS_ITS | Encounter Summary ---
[place] [address] Care Team Providers Care Integrated Marketing Specialist Name Role Phone LuisM anuel Blanca MD Primary Care Provider [phone] [phone] Reason for Visit * Reason Onset Date Comments Appointment 12/15/2020 Encounter Details Date Type Department Care Team (Late Contact Info) Description 12/15/2020 [place] [phone] Sarah Serra APRN [facility] [place] [address] Appointment Social History Tobacco Use Types Packs/Day [...] * Telephone Encounter - Fifi Mendoza - 12/15/2020 9:23 AM EDT Calling to schedule next available follow up visit w/ Sarah Serra. documented in this encounter Plan of Treatment Upcoming Encounters Date Type Department Care Team (Late st Contact Info) Description 08/06/2024 11:00 AM EST Office [place] [address] Sarah Serra APRN [facility] [place] [address] documented as of this encounter Goals Goal Patient Goal Type Associated Problems Recent Progress Patient-Stated? Author Home Medication Compliance and Understanding Patient Facing Action Plan On track( 024 12:05 PM EDT) No Arnel Benitez, [facility] Note: Patient's specific desired goal: reduce number of seizures, with secondary goal of being able to taper some of the other AEDs being used Measured by: seizure record, side effects exhibited Time-frame to meet goal: 3-6 months documented as of this encounter Visit Diagnoses Not on filedocumented in this encounter Care Teams Integrated Marketing Specialist Relationship Specialty Start Date End Date Luis Manuel Blanca MD [address] [place] [address] PCP - General Family Medicine 06/24/16 documented as of this encounter
--- OUTSIDE RECORDS SUMMARY | 2024-06-28 22:00 | XMS_ITS | Encounter Summary ---
[place] [address] Care Team Providers Care Front Clerk Name Role Phone Luis Manuel Blanca MD Primary Care Provider [phone] Reason for Visit * Reason Onset Date Comments Medication Refill 02/09/2021 Encounter Details Date Type Department Care Team (Late st Contact Info) Description 02/09/2021 [place] [address] Sarah Serra APRN [facility] [place] [address] Social History Tobacco Use Types Packs/Day Years [...] encounter Miscellaneous Notes * Telephone Encounter - Deborah Moreland - 03/12/2021 1:48 PM EDT Pt is scheduled * Telephone Encounter - Loretta Sutherland CMA - 02/09/2021 4:47 PM EDT Surescript request for : Trileptal 600 mg Last rx: 11/26/19 Quantity: 180 tabs Refills: 3 Surescript request for : trileptal 300 mg Last rx: 11/30/20 Quantity: 90 tabs Refills: 3 Last appt: 11/26/19 Next appt: Pt needs a follow up appt- MSG sent to company secretary [place] documented in this encounter Plan of Treatment Upcoming Encounters Date Type Department Care Team (Late st Contact Info) Description 08/06/2024 11:00 AM EST Office [place] [address] Sarah Serra APRN [facility] [place] [address] documented as of this encounter Goals Goal Patient Goal Type Associated Problems Recent Progress Patient-Stated? Author [facility] Medication Compliance and Understanding Patient Facing [...] on filedocumented in this encounter Care Teams Front Clerk Relationship Specialty Start Date End Date Luis Manuel Blanca MD [address] [place] [address] PCP - General Family Medicine 06/24/16 documented as of this encounter
--- OUTSIDE RECORDS SUMMARY | 2024-06-28 22:00 | XMS_ITS | Encounter Summary ---
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 Guillaume-Gastaut syndrome ??? CAP (community acquired pneumonia) ??? Epilepsy with status epilepticus ??? Seizure ??? Status epilepticus ??? Sleep apnea ??? Mental retardation I spoke with Cinthya Brown and her caregiver Fifi today (patient with significant developmentaldelay and is minimally verbal) for a phone visit in lieu of our regular follow up due to risk of coronavirus. Fifi reports that Alix is doing quite well, she may have one very small seizure a week. They are very happy with this result as it represents very good control for this patient. She is happy and engaged. Even if she has a seizure she does not want to rest, wants to resume activities.If she doesnot drink enough water she will be groggy but otherwise she is doing well. Steffany went [place] the [place] and had a great time, caught a cold but not covid, still didn't want to bring her in person as sheis still coughing. They request refills today. They report having no further questions or concerns, we will see them back in 6- 12 months and as needed. It was a pleasure speaking with them today. 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
--- OUTSIDE RECORDS SUMMARY | 2024-06-28 22:00 | XMS_ITS | Encounter Summary ---
[place] [address] Care Team Providers Care Prepared Foods Team Leader Name Role Phone Luis Manuel Blanca MD Primary Care Provider [phone] [phone] Reason for Visit * Reason Comments Medication Management Patient Education Encounter Details Date Type Department Care Team (Late st Contact Info) Description 10/14/2020 Specialty [place] [phone] Bj Heck [facility] Social History Tobacco Use Types Packs/Day [...] this encounter Progress Notes * Bj Heck [facility] - 10/14/2020 9:13 AM EST Clinical Management Plan: Refill Specialty Pharmacy Consultation; Bj Heck [facility] Comprehensive Medication Management (CMM) Cinthya Ed Alejandrabrianna Ms. Cinthya Brown is a 60 y.o. (1960) female who was contacted in regard to a specialty medication refill reminder. Contact made with caregiver. Caregiver name: Heidi regarding epidiolex. A review of the medication [...] Vomiting Medication Reconciliation Discrepancies (compared to [facility] med list) No Specialty Pharmacy Refill Questionnaire Refill Questionnaire 10/14/2020 What is the name of the specialty medication you are refilling? epidiolex Are you taking any new medications? No Any new medical condition? No Any new allergies? No Any new side effects that are bothersome? No Adherence: Any missed doses? No Patient understands no changes to current drug regimen were made.. Bj Heck RPH 10/14/20 9:16 AM documented in this encounter Plan of Treatment Upcoming Encounters Date Type Department Care Team (Late st Contact Info) Description 08/06/2024 11:00 AM EST [place] [address] [address]N [facility] [place] [address] documented as of this encounter Goals Goal Patient Goal Type Associated Problems Recent Progress Patient-Stated? Author [facility] Medication Compliance and Understanding Patient Facing Action Plan On track( 024 12:05 PM EDT) No Arnel Benitez [facility] Note: Patient's specific desired goal: reduce number of seizures, with secondary goal of being able to taper some of the other AEDs being used Measured by: seizure record, side effects exhibited Time-frame to meet goal: 3-6 months documented as of this encounter Visit Diagnoses Not on filedocumented in this encounter Care Teams Prepared Foods Team Leader Relationship Specialty Start Date End Date Luis Manuel Blanca MD [address] [place] [address] PCP - General Family Medicine 06/24/16 documented as of this encounter
--- OUTSIDE RECORDS SUMMARY | 2024-06-28 22:00 | XMS_ITS | Encounter Summary ---
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 They are very happy with this result as it represents very good control for this patient. She is happy and engaged. Even if she has a seizure she does not want to rest, wants to resume activities.If she does not drink enough water she will be groggy but otherwise she is doing well. Steffany went to the fair and had a great time, caught a cold but not covid, still didn't want to bring her in person as she is still coughing. Last appt: 04/14/21 Next appt: 07/14/21 * Telephone Encounter - Marlene Romano - 06/07/2021 12:20 PM EDT Call Center / [place] Message Prescription Refill Request Clinical Log [place] message Provider patient sees in Clinic: Maryse Caller and relationship (if other than patient-full name): [facility] Call back Number: [phone] Ok to leave a message: yes Any issues needing to be addressed prior to medication refill? (ex: dose increase, not at pharmacy): x Name of Med: BanzeL 400 mg Tablet Strength of Pills: 400 mg Dosing Directions: TAKE 3 TABLETS BY MOUTH EVERY MORNING, TAKE 2 TABLETS DAILY AT LUNCH AND TAKE 3 TABLETS EVERY NIGHT AT BEDTIME How Patient is Currently Taking Medication: as directed 30 or 90 Day Supply: 30 days Pharmacy: [facility] [address] Last Appointment: 04/14/21 Next Appointment: (IF CALL IS FROM PATIENT/FAMILY AND THERE IS NO FOLLOW UP SCHEDULED REVIEW CHART TO SEE WHEN APPOINTMENT IS NEEDED AND SCHEDULE BEFORE SENDING MESSAGE) 07/14/21 Is Patient out of Medication?: yes documented in this encounter Plan of Treatment Upcoming Encounters Date Type Department Care Team (Late st Contact Info) Description 08/06/2024 11:00 AM EST [place] [address] Sarah Serra, DINO [facility] [place] [address] documented as of this encounter Goals Goal [...] epilepticus documented in this encounter Care Teams Seam Stay Stitcher Relationship Specialty Start Date End Date Luis Manuel Blanca MD [address] [place] [address] PCP - General Family Medicine 06/24/16 documented as of this encounter
--- OUTSIDE RECORDS SUMMARY | 2024-06-28 22:00 | XMS_ITS | Encounter Summary ---
[place] [address] Care Team Providers Care Visualization Developer Name Role Phone Luis Manuel Blanca MD Primary Care Provider [phone] Reason for Visit * Reason Comments Medication Refill Encounter Details Date Type Department Care Team (Late st Contact Info) Description 03/22/2021 [place] [address]N [facility] [place] [address] Social History Tobacco Use Types Packs/Day Years [...] Telephone Encounter - Risa Carrizales RN - 03/22/2021 1:02 PM EDT FUV with Sarah 04/14/21 Surescript for Onfi - last rx 02/18/21 1 mo and no RF documented in this encounter Plan of Treatment Upcoming Encounters Date Type Department Care Team (Late st Contact Info) Description 08/06/2024 11:00 AM EST [place] [address]N [facility] [place] [address] documented as of this encounter Goals Goal Patient Goal Type Associated Problems Recent Progress Patient-Stated? Author [facility] Medication Compliance and Understanding [...] on filedocumented in this encounter Care Teams Visualization Developer Relationship Specialty Start Date End Date Luis Manuel Blanca MD [address] [place] [address] PCP - General Family Medicine 06/24/16 documented as of this encounter
--- OUTSIDE RECORDS SUMMARY | 2024-06-28 22:00 | XMS_ITS | Encounter Summary ---
[place] [address] Care Team Providers Care Box Loader Name Role Phone Luis Manuel Blanca MD Primary Care Provider [phone] [phone] Reason for Visit * Reason Comments Medication Management Patient Education Encounter Details Date Type Department Care Team (Late st Contact Info) Description 02/09/2021 Specialty [place] [phone] Bj Heck [facility] Social History Tobacco Use Types Packs/Day Years [...] Bj Heck [facility] - 02/09/2021 9:06 AM EDT Clinical Management Plan: Refill Specialty Pharmacy Consultation; Bj Heck [facility] Comprehensive Medication Management (CMM) Cinthya Ed Alejandrabrianna [...] And Vomiting Medication Reconciliation Discrepancies (compared to [facility] med list) No Specialty Pharmacy Refill Questionnaire Refill Questionnaire 02/09/2021 What is the name of the specialty medication you are refilling? epidiolex Are you taking any new medications? No Please explain - Any new medical condition? No Please explain - Any new allergies? No Any new side effects that are bothersome? No What date will you need this fill by? 02/14/2021 Adherence: Any missed doses? No Patient understands no changes to current drug regimen were made.. Bj Heck RPH 02/09/21 9:09 AM documented in this encounter Plan of Treatment Upcoming Encounters Date Type Department Care Team (Late st Contact Info) Description 08/06/2024 11:00 AM EST Office [place] [address] Sarah Serra APRN [facility] [place] [address] documented as of this encounter Goals Goal Patient Goal Type Associated Problems Recent Progress Patient-Stated? Author [facility] Medication Compliance and Understanding Patient Facing Action Plan On track( 024 12:05 PM EDT) No Arnel Benitez [facility] Note: Patient's specific desired goal: reduce number of seizures, with secondary goal of being able to taper some of the other AEDs being used Measured by: seizure record, side effects exhibited Time-frame to meet goal: 3-6 months documented as of this encounter Visit Diagnoses Not on filedocumented in this encounter Care Teams Box Loader Relationship Specialty Start Date End Date Luis Manuel Blanca MD [address] [place] [address] [address] [place] [address] PCP - General Family Medicine 06/24/16 documented as of this encounter
--- OUTSIDE RECORDS SUMMARY | 2024-06-28 22:00 | XMS_ITS | Encounter Summary ---
[place] [address] Care Team Providers Care Finance Effectiveness Manager Name Role Phone Luis Manuel Blanca MD Primary Care Provider [phone] [phone] Reason for Visit * Reason Onset Date Comments Medication Refill 09/09/2020 Encounter Details Date Type Department Care Team (Late st Contact Info) Description 09/09/2020 [place] [address] Sarah Serra BIOSECURITY OFFICER [facility] [place] [address] Social History Tobacco Use Types Packs/Day Years [...] EST [place] [address] Sarah Serra APRN [facility] [place] [address] documented as of this encounter Goals Goal [...] on filedocumented in this encounter Care Teams Finance Effectiveness Manager Relationship Specialty Start Date End Date Luis Manuel Blanca MD [address] [place] [address] PCP - General Family Medicine 06/24/16 documented as of this encounter
--- OUTSIDE RECORDS SUMMARY | 2024-06-28 22:00 | XMS_ITS | Encounter Summary ---
[place] [address] Care Team Providers Care Waiter/Waitress Cocktail Lounge Name Role Phone Luis Manuel Blanca MD Primary Care Provider [phone] Reason for Visit * Reason Onset Date Comments Prior Authorization 04/27/2021 Encounter Details Date Type Department Care Team (Late st Contact Info) Description 04/27/2021 Tele[place] [address] Sarah Serra APRN [facility] [place] [address] Prior Authorization Social History Tobacco Use Types [...] * Telephone Encounter - Alondra Gregory - 04/28/2021 4:09 PM EDT Images from the original note were not included. * Telephone Encounter - Alondra Gregory - 04/28/2021 1:34 PM EDT Images from the original note were not included. Patient Assistance [facility] has a manufacture sponsored voucher in place at most retail pharmacies. The voucher is designedto bring eligible, commercially insured patients co-pay down to $40. No action is required of you, the patient, or the pharmacist. Patients are welcome to use the separate, traditional co-pay card ifthey need additional co-pay assistance. * Telephone Encounter - Alondra Gregory - 04/28/2021 1:32 PM EDT Images from the original note were not included. * Telephone Encounter - Lili Otero RN - 04/27/2021 10:23 AM EDT Midazolam (Nayzilam) spray needing PA approval. Report forwarded to Alondra Gregory (PA Coordinator). documented in this encounter Plan of Treatment Upcoming Encounters Date Type Department Care Team (Late st Contact Info) Description 08/06/2024 11:00 AM EST [place] [address] Sarah Serra APRN [facility] [place] [address] documented as of this encounter Goals Goal Patient Goal Type Associated Problems Recent Progress Patient-Stated? Author [facility] Medication Compliance and Understanding Patient Facing Action Plan On track( 024 12:05 PM EDT) Arnel Hurd, [facility] Note: Patient's specific desired goal: reduce number of seizures, with secondary goal of being able to taper some of the other AEDs being used Measured by: seizure record, side effects exhibited Time-frame to meet goal: 3-6 months documented as of this encounter Visit Diagnoses Not on filedocumented in this encounter Care Teams Waiter/Waitress Cocktail Lounge Relationship Specialty Start Date End Date Luis Manuel Blanca MD [address] [facility] [address] [place] [address] PCP - General Family Medicine 06/24/16 documented as of this encounter
--- OUTSIDE RECORDS SUMMARY | 2024-06-28 22:00 | XMS_ITS | Encounter Summary ---
[place] [address] Care Team Providers Care Qa Architect Name Role Phone Luis Manuel Blanca MD Primary Care Provider +1 [phone] Encounter Details Date Type Department Care Team (Late st Contact Info) Description 04/30/2021 Telephone [place] [address] Sarah Serra APRN [facility] [place] [address] Social History Tobacco Use Types Packs/Day Years [...] Telephone Encounter - Sarah Serra APRN - 04/30/2021 6:05 PM EDT Spoke with Lulu regarding rescue protocol They report they like the ease of the new midazolam (nayzalam) but doesn't seem to last long enough. I think we should therefore switch them to Intranasal Diazapam (valtoco)- RX sent. Advised that I also think we should discontinue the rectal diazapm altogether since we have access to the intranasal options now. We should also discontinue the Nayzalam once the Valtoco arrives. She will communicate this by Fior Braden RN. She will have Fior send me an editable copy of protocol for me to update. Aware I will be away until 05/31- states okay to update when I return, but also okay to send valtoco order now with verbal orders as to when to use as above. There may be a delay in the Valcoto being approved/arriving as it is sometimes done through a specialty pharmacy. While they are waiting for the valtoco to be approved they will continue with the intranasal midazolam if needed, if seizures recur they may repeat dose but they should call our office to let us know and watch closely for any respiratory depression. Lulu verbalizes understanding and agrees with plan. * Telephone Encounter - Sarah Serra APRN - 04/30/2021 12:08 PM EDT Received Seizure protocol from [facility] for Cinthya, asking for clarification on dosing the different rescue medications. Called fifi (caregiver) and left a message for her tocall back. Reviewing the protocol it has orders for both rectal diazapam (diastat) and intranasal midazolam. Yaya a recent discussion with Fifi that Diastat is quite difficult to adminisher to cinthya possibly causing a delay. Now that intranasal midazolam is avaiable in a preloaded atomizer (as opposed to the IV vials that needed to be drawn up and then an atomizer attached- which is rather complicated) making it much simpler to administer, I would be inclinded to remove diastat from the list completely. We would continue the PRN lorazapam for if she is awake and able to swallow, and use mizadolam if she is unable to swallow. I would like to discuss with her making these changes. I would also like if they could send us an editable copy of this protocol through [facility] making it easier for me to update the protocol. Otherwise I will need to speak with the nurse directly to reviewdetailed changes. I am going on leave and will return 05/31, if we are unable to resolve this today I will complete it upon my return. (Lili if she calls while I am away, ask her about d/cing the diastat for the reason above and if they could send us a copy that is editable (aka cut and paste it into the body of a [employer] message). documented in this encounter Plan of Treatment Upcoming Encounters Date Type Department Care Team (Late st Contact Info) Description 08/06/2024 11:00 AM EST Office [place] [address] Sarah Serra APRN [facility] [place] [place] [address] documented as of this encounter Goals Goal Patient Goal Type Associated Problems Recent Progress Patient-Stated? Author Home Medication Compliance and Understanding Patient Facing Action Plan On track( 024 12:05 PM EDT) Arnel Hurd, [facility] Note: Patient's specific desired goal: reduce number of seizures, with secondary goal of being able to taper some of the other AEDs being used Measured by: seizure record, side effects exhibited Time-frame to meet goal: 3-6 months documented as of this encounter Visit Diagnoses Not on filedocumented in this encounter Care Teams Qa Architect Relationship Specialty Start Date End Date Luis Manuel Blanca MD [facility] [address] [facility] [address] [place] [address] PCP - General Family Medicine 06/24/16 documented as of this encounter
--- OUTSIDE RECORDS SUMMARY | 2024-06-28 22:00 | XMS_ITS | Encounter Summary ---
[place] [address] Care Team Providers Care Factory Supervisor Name Role Phone Luis Manuel Blanca MD Primary Care Provider [phone] [phone] Reason for Visit * Reason Onset Date Comments Questions 04/21/2021 Encounter Details Date Type Department Care Team (Late st Contact Info) Description 04/21/2021 Telephone [place] [id number] Sarah Serra APRN [facility] [place] [address] Questions Social History Tobacco Use Types Packs/Day Years [...] Encounter - Lili Otero RN - 05/03/2021 11:29 AM EDT Spoke to patient's caregiver (nicolasa). Reviewed previous conversation with Sarah Serra APRN. Diazepam (Valtoco) nasal spray is needing a PA approval. Made aware that message sent to our PA coordinator to assist with this. She will call [facility] to update on this. And that the seizure protocol will be updated when she received the Valtoco. Lulu will call me once she received the Valtoco nasal spray to get an appointment for telehealth for patient eduction on how to administer this. Patient/caller advised to call for any other concerns. Patient/caller in agreement and verbalized understanding of the plan. * Telephone Encounter - Kristen Loja - 05/03/2021 8:58 AM EDT Lulu from [facility] following up. She's covering for Fior this week and is following up on the updated seizure protocol. Please call her back at [phone] * Telephone Encounter - Mita Win RN - 04/30/2021 12:27 PM EDT I attempted to phone back. There was no answer. Message left for Estrella to call back [phone]. Sarah did try to call them. * Telephone Encounter - Emiliano Carvajal - 04/30/2021 11:48 AM EDT Call Center / Hatch Message - General Issue Call Provider patient sees in Clinic: Sarah Serra APRN Caller and relationship (if other than patient-full name): Fior with [employer] Call back number: [phone] Ok to leave a message: yes Reason for call: Fior states, she is calling to get an update on changes to protocol for Nayzilam, Cinthya's new medication. Fior will be out on vacation for 2 weeks, but you can speak with the case monitor, Estrella. She can be reached at [phone] extension [phone]. Disposition of Call (choose one and remove others): ??? Routine Message sent to the Nurse: yes Nurse/Pattern Weaver contacted via: Message: y Call: n Pager: n * Telephone Encounter - Lili Otero RN - 04/27/2021 10:25 AM EDT 04/27/21 1015 Spoke to Vianey BELTRE. Made aware that Brannon received the Midazolam (Nayzilam) nasal spray and that it's needing PA approval. Made aware that message was sent to our PA coordinator to process this. Verbalized understanding. * Telephone Encounter - Lili Otero RN - 04/27/2021 9:35 AM EDT 04/27/21 09 Call placed to Vianey BELTRE. Advised to call back to let us know if they were able to grain picker the Nayzilam nasal spray. * Telephone Encounter - Lili Otero RN - 04/21/2021 9:41 AM EDT Call placed to Vianey BELTRE. LVM. Made aware that we received Cinthya's seizure protocol. Advised to let us know if they received the Nayzilam nasal spray. Advised to let us know that best time to call her to discuss this. * Telephone Encounter - Luz Marina Laws - 04/21/2021 8:59 AM EDT Call Center / Pattern Weaver Message - General Issue Call Provider patient sees in Clinic: Sarah Serra APRN Caller and relationship (if other than patient-full name): Fior - [facility] Call back number: [phone] Ok to leave a message: Y Reason for call: Fior is calling today to see if there is any changes to the seizure protocol for this patient. Please call back to discuss further. Disposition of Call (choose one and remove others): ??? Red Arrow Message Reason red arrow Message: ??? Routine Message sent to the Nurse: Y ??? Routine message sent to Hatch: Nurse/Pattern Weaver contacted via: Message: Y Call: N Pager: N documented in this encounter Plan of Treatment Upcoming Encounters Date Type Department Care Team (Late st Contact Info) Description 08/06/2024 11:00 AM EST Office [place] [address] Sarah Serra APRN [facility] [place] [address] documented as of this encounter Goals Goal Patient Goal Type Associated Problems Recent Progress Patient-Stated? Author [facility] Medication Compliance and Understanding Patient Facing Action [...] on filedocumented in this encounter Care Teams Factory Supervisor Relationship Specialty Start Date End Date Luis Manuel Blanca MD [address] [place] [address] PCP - General Family Medicine 06/24/16 documented as of this encounter
--- OUTSIDE RECORDS SUMMARY | 2024-06-28 22:00 | XMS_ITS | Encounter Summary ---
[place] [address] Care Team Providers Care Recovery Assistant Name Role Phone Luis Manuel Blanca MD Primary Care Provider [phone] [phone] Reason for Visit * Reason Onset Date Comments Other 04/05/2021 Medication Refill 04/09/2021 Encounter Details Date Type Department Care Team (Late st Contact Info) Description 04/05/2021 [place] [phone] Sarah Serra APRN [facility] [place] [address] Other; Medication Refill Social History Tobacco Use Types Packs/Day Years [...] encounter Miscellaneous Notes * Telephone Encounter - Olinda Mata RN - 04/09/2021 8:56 AM EDT Received forms: from Fior Braden of [facility]. Will notify Tay Fournier * Addendum Note - Tay Otero RN - 04/06/2021 3:31 PM EDTAddended by: TAY OTERO on: 04/06/2021 03:31 PM Modules accepted: Orders * Telephone Encounter - Tay Otero RN - 04/06/2021 3:24 PM EDT 04/06/21 1520 Spoke to Vianey. Made aware that per Sarah Serra APRN: I'm okay with switching to Midazolam prefilled (nayzilam). Patient/caller in agreement and verbalized understanding of the plan. * Telephone Encounter - Tay Otero RN - 04/05/2021 3:51 PM EDT Spoke to Fior ([facility]). She wanted to discuss seizure protocol. She will fax the existing protocol. Advised that this can be discussed during patient's follow up appointment on 04/14. Also requesting if it's possible to transition Cinthya to the Nayzilam pre-filled formulation instead of the Midazolam vial.. Message forwarded to Sarah Serra APRN. * Telephone Encounter - Nydia Stevens - 04/05/2021 3:05 PM EDT Call Center / Machine Operator General Message - General Issue Call Provider patient sees in Clinic: Sarah Serra Caller and relationship (if other than patient-full name): Fior Call back number: [phone] Ok to leave a message: Yes Reason for call: Patient is currently on Midazolam where it has to be done through a syringe and Fior is looking to revisit the option of doing it in through an intranasal device. Fior is requesting a call back from Tay. Disposition of Call (choose one and remove others): ??? Routine Message sent to the Nurse: Yes Nurse/Machine Operator General contacted via: Message: Yes Call: x Pager: x documented in this encounter Plan of Treatment Upcoming Encounters Date Type Department Care Team (Late st Contact Info) Description 08/06/2024 11:00 AM EST [place] [address] Sarah Serra APRN [facility] [place] [address] documented as of this encounter Goals Goal Patient Goal Type Associated Problems Recent Progress Patient-Stated? Author [facility] Medication Compliance and Understanding Patient [...] on filedocumented in this encounter Care Teams Recovery Assistant Relationship Specialty Start Date End Date Luis Manuel Blanca MD [address] [place] [address] PCP - General Family Medicine 06/24/16 documented as of this encounter
--- OUTSIDE RECORDS SUMMARY | 2024-06-28 22:00 | XMS_ITS | Encounter Summary ---
[place] [address] Care Team Providers Care Assistant Plant Control Operator Name Role Phone Luis Manuel Blanca MD Primary Care Provider [phone] [phone] Encounter Details Date Type Department Care Team (Late Contact Info) Description 04/01/2021 [place] [address] Sarah Serra APRN [facility] [place] [address] Social History Tobacco Use Types Packs/Day Years [...] Telephone Encounter - Risa Carrizales RN - 04/01/2021 3:00 PM EDT FUV 04/14/21 Surescript for Epidiolex Last rx 02/18/21 1 mo and no RF documented in this encounter Plan of Treatment Upcoming Encounters Date Type Department Care Team (Late Contact Info) Description 08/06/2024 11:00 AM EST [place] [address] Sarah Serra APRN [facility] [place] [address] documented as of this encounter Goals Goal Patient Goal Type Associated Problems Recent Progress Patient-Stated? Author Home Medication Compliance and Understanding Patient Facing Action Plan On track( 024 12:05 PM EDT) No Arnel Benitez, [facility] Note: Patient's specific desired goal: reduce number of seizures, with secondary goal of being able to taper some of the other AEDs being used Measured by: seizure record, side effects exhibited Time-frame to meet goal: 3-6 months documented as of this encounter Visit Diagnoses Not on filedocumented in this encounter Care Teams Assistant Plant Control Operator Relationship Specialty Start Date End Date Luis Manule Blanca MD [address] [place] [address] PCP - General Family Medicine 06/24/16 documented as of this encounter
--- OUTSIDE RECORDS SUMMARY | 2024-06-28 22:00 | XMS_ITS | Encounter Summary ---
[place] [address] Care Team Providers Care Weld Inspector Name Role Phone Luis Manuel Blanca MD Primary Care Provider +1 -[phone] Encounter Details Date Type Department Care Team (Late st Contact Info) Description 12/24/2020 [place] [address] Sarah Serra APRN [facility] [place] [address] Social History Tobacco Use Types Packs/Day Years [...] Telephone Encounter - Lili Otero RN - 12/24/2020 12:36 PM EDT Called Mehreen Dixon. Onfi 20 mg rx called in. Rx sent electronically last 12/22 was not received. * Telephone Encounter - Marlene Romano - 12/24/2020 10:30 AM EDT Call Center / Gasket Former Message - Medication Issue (Not to be used for refill request or medication prior auth request) Provider patient sees in Clinic: Maryse Caller and relationship (if other than patient-full name): family Crescencio Call Back Number: [phone] Ok to leave a message: y Reason for call: Medication Issue (if medication issue is a symptom do not use this phrase) Message/information for the nurse: script needs to be re faxed Name of Medication: Onfi 20 mg tablet Issue with the medication: [facility] in [facility] says they do not have script. Disposition of Call: ?? Red Arrow Message sent to Nurse - Reason for RED ARROW Message: yes Patient is out of medication ?? Routine Message sent to the Nurse x ?? Other: x Nurse contacted via: Message: y Call: n Pager: n documented in this encounter Plan of Treatment Upcoming Encounters Date Type Department Care Team (Late st Contact Info) Description 08/06/2024 11:00 AM EST [place] [address] Sarah Serra APRN [facility] [place] [address] documented as of this encounter Goals Goal Patient Goal Type Associated Problems Recent Progress Patient-Stated? Author [facility] Medication Compliance and Understanding Patient [...] on filedocumented in this encounter Care Teams Weld Inspector Relationship Specialty Start Date End Date Luis Manuel Blanca MD [address] [place] [address] [address] [place] [address] PCP - General Family Medicine 06/24/16 documented as of this encounter
--- OUTSIDE RECORDS SUMMARY | 2024-06-28 22:00 | XMS_ITS | Encounter Summary ---
[place] [address] Care Team Providers Care Binder Stripper Hand Name Role Phone Luis Manuel Blanca MD Primary Care Provider [phone] Encounter Details Date Type Department Care Team (Late st Contact Info) Description 04/13/2021 [place] [address] Sarah Serra APRN [facility] [place] [address] Social History Tobacco Use Types Packs/Day Years [...] Telephone Encounter - Lili Otero RN - 04/13/2021 12:38 PM EDT Spoke to patient's caregiver. Advised to change the 04/14/21 appointment to telephone appointment. Patient was last seen on 11/2019. Verbalized understanding. Message forwarded to Epi departmental secretary to facilitate with scheduling. * Telephone Encounter - Kristen Loja - 04/13/2021 9:14 AM EDT Call Center / Tongue And Groove Machine Operator Message - General Issue Call Provider patient sees in Clinic: Sarah Serra Caller and relationship (if other than patient-full name): Lulu lawn care specialist Call back number: [phone] Ok to leave a message: yes Reason for call: Patient's caregiver had cancelled her appointment for this week because the patient has a cold. Otherwise, the patient is doing well. Lulu wanted to check in with the office, andlet us know patient is doing fairly well. Appointment was rescheduled for 07/14, but if anyone has any questions or concerns to touch base on before the next FUV, please feel free to call Lulu back. Disposition of Call (choose one and remove others): ??? Routine Message sent to the Nurse: X Nurse/[place] contacted via: Message: y Call: n Pager: n documented in this encounter Plan of Treatment Upcoming Encounters Date Type Department Care Team (Late st Contact Info) Description 08/06/2024 11:00 AM EST [place] [address] Sarah Serra APRN [facility] [place] [address] documented as of this encounter Goals Goal Patient Goal Type Associated Problems Recent Progress Patient-Stated? Author [facility] Medication Compliance and Understanding Patient Facing Action Plan On track( 024 12:05 PM EDT) No Arnel Benitez, [facility] Note: Patient's specific desired goal: reduce number of seizures, with secondary goal of being able to taper some of the other AEDs being used Measured by: seizure record, side effects exhibited Time-frame to meet goal: 3-6 months documented as of this encounter Visit Diagnoses Not on filedocumented in this encounter Care Teams Binder Stripper Hand Relationship Specialty Start Date End Date Luis Manuel Blanca MD [address] [place] [address] PCP - General Family Medicine 06/24/16 documented as of this encounter
--- OUTSIDE RECORDS SUMMARY | 2024-06-28 22:00 | XMS_ITS | Encounter Summary ---
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 stating they are now covering pt rxs and need new rx for banzel, Onfi, epidiolex, and Phenobarbital Re-prepping rx's to go to [facility] Last appt with Sarah 11/2019 - FUV due msg to humanities and languages professor documented in this encounter Plan of Treatment Upcoming Encounters Date Type Department Care Team (Late st Contact Info) Description 08/06/2024 11:00 AM EST [place] [address] Sarah Serra APRN [facility] [place] [address] documented as of this encounter Goals Goal Patient Goal Type Associated Problems Recent Progress Patient-Stated? 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
--- OUTSIDE RECORDS SUMMARY | 2024-06-28 22:00 | XMS_ITS | Encounter Summary ---
[place] [address] Care Team Providers Care Crop Quantitative Geneticist Name Role Phone Luis Manuel Blanca MD Primary Care Provider [phone] [phone] Encounter Details Date Type Department Care Team (Late st Contact Info) Description 12/20/2020 Telephone [place] [address] Verenice Colón MD [facility] [place] [address] Social History Tobacco Use Types Packs/Day Years [...] encounter Miscellaneous Notes * Telephone Encounter - Verenice Colón MD - 12/20/2020 11:46 AM EDT Received call from patient rep requesting onfi refill. I sent 15 tablets and stated she needs to ask her provider for refills. N.B. Since we have not evaluated this patient, this is not an official consultation and we are not stating that a specific treatment decision is correct or incorrect. Verenice Colón MD documented in this encounter Plan of Treatment Upcoming Encounters Date Type Department Care Team (Late st Contact Info) Description 08/06/2024 11:00 AM EST Office [place] [address] Sarah Serra APRN [facility] [place] [address] documented as of this encounter Goals Goal Patient Goal Type Associated Problems Recent Progress Patient-Stated? Author [facility] Medication Compliance and Understanding Patient Facing [...] on filedocumented in this encounter Care Teams Crop Quantitative Geneticist Relationship Specialty Start Date End Date Luis Manuel Blanca MD [address] [place] [address] [address] [facility] [address] [place] [address] PCP - General Family Medicine 06/24/16 documented as of this encounter
--- OUTSIDE RECORDS SUMMARY | 2024-06-28 22:00 | XMS_ITS | Encounter Summary ---
[place] [address] Care Team Providers Care Senior Sql Database Developer Name Role Phone Luis Manuel Blanca MD Primary Care Provider [phone] Encounter Details Date Type Department Care Team (Late st Contact Info) Description 05/14/2021 [place] [address] Sarah Serra APRN [facility] [place] [address] Social History Tobacco Use Types Packs/Day Years [...] Telephone Encounter - Lili Otero RN - 05/20/2021 9:41 AM EDT 05/20/21 0930 Spoke to Vianey BELTRE. Discussed parameters for Diazepam (Valtoco) nasal spray. Letterfaxed. Made aware that I will discuss an updated seizure protocol for Cinthya to Sarah upon her return. Verbalized understanding. * Telephone Encounter - Lili Otero RN - 05/19/2021 9:13 AM EDT 05/19/21 0900 Call placed to Vianey BELTRE . LVM. Advised to call back. * Telephone Encounter - Jonathan Choudhury - 05/18/2021 2:57 PM EDT Fior Mckeon [facility] Support Service calling back returning your call and would like to be reachedat [phone] * Telephone Encounter - Lili Otero RN - 05/14/2021 9:11 AM EDT Call placed to patient's caregiver. LVM. Advised to call back to discuss administration of Valtoco nasal spray. Called Vianey GOODEN LVM. Advised to call back regarding patient's seizure protocol. documented in this encounter Plan of Treatment Upcoming Encounters Date Type Department Care Team (Late st Contact Info) Description 08/06/2024 11:00 AM EST [place] [address] Sarah Serra APRN [facility] [place] [address] documented as of this encounter Goals Goal [...] filedocumented in this encounter Care Teams Senior Sql Database Developer Relationship Specialty Start Date End Date Luis Manuel Blanca MD [address] [place] [address] PCP - General Family Medicine 06/24/16 documented as of this encounter
--- OUTSIDE RECORDS SUMMARY | 2024-06-28 22:00 | XMS_ITS | Encounter Summary ---
[place] [address] Care Team Providers Care Hydrotel Operator Name Role Phone Luis Manuel Blnaca MD Primary Care Provider [phone] [phone] Reason for Visit * Reason Comments Medication Management Medication Refill Encounter Details Date Type Department Care Team (Late st Contact Info) Description 07/28/2020 Specialty [place] [phone] Arnel Benitez [facility] Social History Tobacco Use Types Packs/Day [...] this encounter Progress Notes * Arnel Benitez [facility] - 07/28/2020 9:35 AM EST Clinical Management Plan: Refill Specialty Pharmacy Consultation; Arnel Benitez [facility] Comprehensive Medication Management (CMM) Cinthya Ed Kevin Ms. Cinthya Brown is a 59 y.o. (1960) female who was contacted in regard to a specialty medication refill reminder. Spoke with caregiver (Marita) regarding EPIDIOLEX. A review of the medication [...] targeted medication review Referred By: provider Recipient: caregiver Provider: plan sponsor pharmacist Visit Type: [facility] Follow-[facility] Method of Contact: by telephone Cognitive Ability: good Allergies and Drug intolerance: Allergies Allergen Reactions ??? Amoxicillin-Pot Clavulanate Rash ??? Risedronate Sodium Nausea And Vomiting Medication Reconciliation Discrepancies (compared to [facility] med list) - none New medications: no New medical conditions: no New allergies: no Adherence: Medication Adherence Patient reported X missed doses in the last month: 0 Any gaps in refill history greater than 2 weeks in the last 3 months: no Demonstrates understanding of importance of adherence: yes Informant: caregiver Reliability of informant: reliable Provider-estimated medication adherence level: 90-100% Adherence tools used: medication list, directed education Support network for adherence: home health agency Confirmed plan for next specialty medication refill: delivery by pharmacy Are you experiencing any side effects from your medications? no Pt understands no changes to current drug regimen were made at the appointment and that [facility] is providing recommendations (summary located at top of note) for provider review and follow up. Arnel Benitez RPH 07/28/20 9:36 AM documented in this encounter Plan of Treatment Upcoming Encounters Date Type Department Care Team (Late st Contact Info) Description 08/06/2024 11:00 AM EST [place] [address] Sarah Serra APRN [facility] [place] [address] documented as of this encounter Goals Goal Patient Goal Type Associated Problems Recent Progress Patient-Stated? Author [facility] Medication Compliance and Understanding Patient Facing Action Plan On track( 024 12:05 PM EDT) No Arnel Benitez RPH Note: Patient's specific desired goal: reduce number of seizures, with secondary goal of being able to taper some of the other AEDs being used Measured by: seizure record, side effects exhibited Time-frame to meet goal: 3-6 months documented as of this encounter Visit Diagnoses Not on filedocumented in this encounter Care Teams Hydrotel Operator Relationship Specialty Start Date End Date Luis Manuel Blanca MD [address] [place] [address] PCP - General Family Medicine 06/24/16 documented as of this encounter
--- OUTSIDE RECORDS SUMMARY | 2024-06-28 22:00 | XMS_ITS | Encounter Summary ---
Author Organization [facility] [place] [address] Care Team Providers Care Technical Information Specialist Name Role Phone Luis Manuel Blanca MD Primary Care Provider [phone] Reason for Visit * Reason Comments Medication Refill Encounter Details Date Type Department Care Team (Late st Contact Info) Description 12/17/2020 [place] [address] 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
--- OUTSIDE RECORDS SUMMARY | 2024-06-28 22:00 | XMS_ITS | Encounter Summary ---
[place] [address] Care Team Providers Care Instrumentation Fitter Name Role Phone Luis Manuel Blanca MD Primary Care Provider [phone] Encounter Details Date Type Department Care Team (Late st Contact Info) Description 11/09/2020 [place] [address] Sarah Serra APRN [facility] [place] [address] Social History Tobacco Use Types Packs/Day Years [...] Telephone Encounter - Lili Otero RN - 11/17/2020 9:18 AM EDT LV- 11/26/19 Fifi reports that Alix is doing quite well and seems back to her old self. In fact they think she is doing better now than she is done in years. She tolerated the medication decrease well, initially she had a few more seizures but then things settled down and she has not had one since November. Overall she is doing much better, she is less drowsy, and she has resumed interest and engagement in her typical activities. documented in this encounter Plan of Treatment Upcoming Encounters Date Type Department Care Team (Late st Contact Info) Description 08/06/2024 11:00 AM EST [place] [address] Sarah Serra APRN [facility] [place] [address] documented as of this encounter Goals Goal Patient Goal Type Associated Problems Recent Progress Patient-Stated? Author [facility] Medication Compliance and Understanding Patient [...] on filedocumented in this encounter Care Teams Instrumentation Fitter Relationship Specialty Start Date End Date Luis Manuel Blanca MD [address] [place] [address] PCP - General Family Medicine 06/24/16 documented as of this encounter
--- OUTSIDE RECORDS SUMMARY | 2024-06-28 22:00 | XMS_ITS | Encounter Summary ---
[place] [address] Care Team Providers Care Applied Researcher Name Role Phone Luis Manuel Blanca MD Primary Care Provider [phone] Reason for Visit * Reason Onset Date Comments Questions 01/26/2021 COVID vaccine Encounter Details Date Type Department Care Team (Late st Contact Info) Description 01/26/2021 [place] [address] Sarah Serra, CLINICAL NURSE OCCUPATIONAL MEDICINE [facility] [place] [address] Questions (COVID vaccine) Social History Tobacco Use Types Packs/Day Years [...] Telephone Encounter - Lili Otero RN - 01/27/2021 10:00 AM EDT 01/27/21 1000 Call placed to patient's caregiver. Attempted x2. LVM. Made aware that per Sarah Serra CLINICAL NURSE OCCUPATIONAL MEDICINE: Any vaccine is fine but the J&J is just one and done so that may be easier, yes itsfine to get the ativan day of and after. Advised to call back for any questions. * Telephone Encounter - Lili Otero RN - 01/26/2021 12:24 PM EDT Spoke to patient's caregiver. Made aware that the official statement from the epilepsy foundation,and the link to their covid page states: There is no evidence that person with epilepsy has higherrisk for side effects after vaccination. As with any vaccine, some persons may develop a fever which could lower their seizure threshold for the short term, and rarely results in breakthrough seizure. There is no evidence that this vaccination results in worsening of the epilepsy, or brain injury. There may be some increase in seizures for several days following the vaccine. But, this would quickly resolve. It is certainly not too dangerous to get the covid vaccine. Getting a COVID infectionwould be far more dangerous. Lulu wanted to check if Sarah recommends any particular covid vaccine. Also wanted to know ifit's possible for patient have prn Ativan the day of and the day after getting the covid vaccine. Report forwarded to Sarah Serra APRN for review and comment. Pt/caller aware they will be called back with input when available and to call back in the interim if additional questions or change arise before they hear back from this office. Pt/caller agreeable to this plan. * Telephone Encounter - Del Valentine - 01/26/2021 10:15 AM EDT Call Center / Director [employer] Message - General Issue Call Provider patient sees in Clinic: Sarah Serra Caller and relationship (if other than patient-full name): Pt's caregiverFifi Call back number: [phone] Ok to leave a message: yes Reason for call: Pt's caregiver stated she would like to have the Pt get the COVID vaccine, howevershe does have questions and concerns she would like to discuss with a nurse. Disposition of Call (choose one and remove others): ??? Routine Message sent to the Nurse: Nurse/Director [employer] contacted via: Message: y Call: n Pager: n documented in this encounter Plan of Treatment Upcoming Encounters Date Type Department Care Team (Late st Contact Info) Description 08/06/2024 11:00 AM EST [place] [address] Sarah Serra APRN [facility] [place] [address] documented as of this encounter Goals Goal [...] on filedocumented in this encounter Care Teams Applied Researcher Relationship Specialty Start Date End Date Luis Manuel Blanca MD [address] [place] [address] PCP - General Family Medicine 06/24/16 documented as of this encounter
--- OUTSIDE RECORDS SUMMARY | 2024-06-28 22:00 | XMS_ITS | Encounter Summary ---
Author Organization [facility] [place] [address] Care Team Providers Care Car Ferry Captain Name Role Phone Luis Manuel Blanca MD Primary Care Provider [phone] Encounter Details Date Type Department Care Team (Late st Contact Info) Description 10/05/2020 [place] [address] Scott Barros MD [facility] [place] [address] Social History Tobacco Use Types Packs/Day Years [...] Miscellaneous Notes * Telephone Encounter - Sarah Serra, DINO - 10/06/2020 1:24 PM EST Spoke with Fifi, Pt typically has seizures at the dentist (excited) but typically before and usually also one. Otherissue may be GI bug going around- pt had diarrhea during seizure and again later after she got homefrom hospital. Looked for UTI and URI at hospital but didn't find anything, last time this happenedpt had pneumonia. Fifi notes diatat usually works but this time it didn't (did stop by the time EMS got there), but went on for at least 20 minutes (time it took to get her into the bed from the chair in order to give the diastat). Seizures themselves lasted about 60 seconds, but would restart prior to pt recover. Will rx Nayzalam to reduce time to tx (pt very difficult to give diastat to while seizure due to need for matthias lift). If any larger seizures recur call office and we will re-eval for any infection. Fifi verbalizes understanding and agrees with plan. * Telephone Encounter - Scott Barros MD - 10/05/2020 3:57 PM EST [facility] Call Documentation Caller: Dr. Kapoor [facility]: [facility] Reason for call: Breakthrough seizure. Narrative: Medication questions: Took ativan prior to dental procedure which went well. Had diastat after GTC after lunch, . Getting medical work up. Clobazam 20 mg nightly. Rufinamide Phenobarb 120 hs Trileptal Nasal midazolam. Has not missed doses, not been ill. Disposition: Other ...I reviewed her chart. She has a complex medical regimen as well as VNS. At this point, I think all the appropriate measure are being done to evaluate why she had a breakthrough seizure. Would not make a change to the medications. I wonder if she got any antibiotics for her dental procedure that could have lowered there sz threshold, despite taking a prophylactic benzodiazepine. I would continue to follow clinically. Would check a phenobarb level. N.B. Since we have not evaluated this patient, this is not an official consultation and we are not stating that a specific treatment decision is correct or incorrect. documented in this encounter Plan of Treatment Upcoming Encounters Date Type Department Care Team (Late st Contact Info) Description 08/06/2024 11:00 AM EST [place] [address] Sarah Serra APRN [facility] [place] [place] [address] documented as of this encounter Goals Goal [...] filedocumented in this encounter Care Teams Car Ferry Captain Relationship Specialty Start Date End Date Luis Manuel Blanca MD [address] [place] [address] PCP - General Family Medicine 06/24/16 documented as of this encounter
--- OUTSIDE RECORDS SUMMARY | 2024-06-28 22:00 | XMS_ITS | Encounter Summary ---
[place] [address] Care Team Providers Care Senior Licensing Manager Name Role Phone Luis Manuel Blanca MD Primary Care Provider [phone] [phone] Reason for Visit * Reason Onset Date Comments Other 10/08/2020 Encounter Details Date Type Department Care Team (Late st Contact Info) Description 10/08/2020 [place] [address] Sarah Serra APRN [facility] [place] [address] Other Social History Tobacco Use Types Packs/Day [...] Telephone Encounter - Lili Otero RN - 10/08/2020 1:04 PM EST Spoke to patient's caregiver. Reports that Cinthya was started on Macrobid 100 mg BID for 7 days. Yesterday, Cinthya was in bed a lot. Today, she's bit better. She had a small seizure at noon, Ativan prnwas given. Now, she's happy playing with her game. Lulu advised to call if seizures worsen. Patient/caller advised to call for any other concerns.Patient/caller in agreement and verbalized understanding of the plan. Sarah Serra APRN made aware. * Telephone Encounter - Tai Weaver - 10/08/2020 11:32 AM EST Call Center / [employer] Message - General Issue Call Provider patient sees in Clinic: Sarah Serra Caller and relationship (if other than patient-full name): Lulu Arellano (animal caretaker supervisor) Call back number: [phone] Ok to leave a message: Yes Reason for call: Patients health care legal assistant Lulu wanted to call and update Sarah about the patients recent seizures. Lulu states the seizure was caused by a UTI and wanted to update Sarah with this info. Disposition of Call (choose one and remove others): ??? Routine Message sent to the Nurse: X documented in this encounter Plan of Treatment Upcoming Encounters Date Type Department Care Team (Late st Contact Info) Description 08/06/2024 11:00 AM EST [place] [address] Sarah Serra APRN [facility] [place] [address] documented as of this encounter Goals Goal Patient Goal Type Associated Problems Recent Progress Patient-Stated? Author [facility] Medication Compliance and Understanding Patient Facing Action Plan On track( 024 12:05 PM EDT) Arnel Hurd, [facility] Note: Patient's specific desired goal: reduce number of seizures, with secondary goal of being able to taper some of the other AEDs being used Measured by: seizure record, side effects exhibited Time-frame to meet goal: 3-6 months documented as of this encounter Visit Diagnoses Not on filedocumented in this encounter Care Teams Senior Licensing Manager Relationship Specialty Start Date End Date Luis Manuel Blanca MD [address] [place] [address] PCP - General Family Medicine 06/24/16 documented as of this encounter
--- OUTSIDE RECORDS SUMMARY | 2024-06-28 22:00 | XMS_ITS | Encounter Summary ---
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
--- OUTSIDE RECORDS SUMMARY | 2024-06-28 22:00 | XMS_ITS | Encounter Summary ---
[place] [address] Care Team Providers Care Dairy Supplies Sales Representative Name Role Phone Luis Manuel Blanca MD Primary Care Provider [phone] [phone] Reason for Visit * Reason Comments Specialty Refill Management Encounter Details Date Type Department Care Team (Late st Contact Info) Description 05/03/2021 Specialty [place] [phone] Arnel Benitez [facility] Social History Tobacco Use Types Packs/Day [...] encounter Progress Notes * Arnel Benitez [facility] - 05/03/2021 2:26 PM EDT Clinical Management Plan: Refill Specialty Pharmacy Consultation; Arnel Benitez [facility] Comprehensive Medication Management (CMM) Cinthya Ed Alejandrabrianna Ms. Cinthya Brown is a 60 y.o. (1960) female who was contacted in regard to a specialty medication refill reminder. Contact made with patient regarding EPIDIOLEX. A review of the medication therapy was performed. The medication was refilled as scheduled, and all medication related questions and concerns were addressed. The specialty pharmacy staff will follow up with the patient 5-7 days prior to next refill. Was a change made to the Care Plan: yes - change to nasal rescue medication (pt referenced midazolam) If yes, should the medication be held: No Assessment and Recommendations: Title Type of Medication Management: targeted medication review Referred By: provider Recipient: caregiver Provider: plan sponsor pharmacist Visit Type: [facility] Follow-up Method of Contact: by telephone Cognitive Ability: good Allergies and Drug intolerance: Allergies Allergen Reactions ??? Amoxicillin-Pot Clavulanate Rash ??? Risedronate Sodium Nausea And Vomiting Medication Reconciliation Discrepancies (compared to [facility] med list) - none Specialty Pharmacy Refill Questionnaire Refill Questionnaire 05/03/2021 What is the name of the specialty medication you are refilling? Epidiolex Are you taking any new medications? Yes Please explain midazolam (?) prn will be available soon Any new medical condition? No Please explain - Any new allergies? No Any missed doses since your last fill? No Any new side effects that are bothersome? No What date will you need this fill by? 05/10/2021 Adherence: Specialty Med Adherence Patient Demonstrates Understanding of Importance of Adherence: Yes Educational Information or Adherence Tools Provided: No Patient Reported X Missed Doses in the Last Month: 0 Provider-Estimated Medication Adherence Level: 90-100% Pt understands no changes to current drug regimen were made at the appointment and that [facility] is providing recommendations (summary located at top of note) for provider review and follow up. Arnel Benitez RPH 05/03/21 2:28 PM documented in this encounter Plan of Treatment Upcoming Encounters Date Type Department Care Team (Late st Contact Info) Description 08/06/2024 11:00 AM EST [place] [address] Sarah Serra APRN [facility] [place] [address] documented as of this encounter Goals Goal Patient Goal Type Associated Problems Recent Progress Patient-Stated? Author [facility] Medication Compliance and Understanding Patient Facing Action Plan On track( 024 12:05 PM EDT) Arnel Hurd, [facility] Note: Patient's specific desired goal: reduce number of seizures, with secondary goal of being able to taper some of the other AEDs being used Measured by: seizure record, side effects exhibited Time-frame to meet goal: 3-6 months documented as of this encounter Visit Diagnoses Not on filedocumented in this encounter Care Teams Dairy Supplies Sales Representative Relationship Specialty Start Date End Date Luis Manuel Blanca MD [address] [place] [address] PCP - General Family Medicine 06/24/16 documented as of this encounter
--- OUTSIDE RECORDS SUMMARY | 2024-06-28 22:00 | XMS_ITS | Encounter Summary ---
[place] [address] Care Team Providers Care Water Conservation Specialist Name Role Phone Luis Manuel Blanca MD Primary Care Provider [phone] [phone] Reason for Visit * Reason Onset Date Comments Medication Refill 12/14/2020 Encounter Details Date Type Department Care Team (Late st Contact Info) Description 12/14/2020 Telephone [place] [phone] Sarah Serra APRN [facility] [place] [address] Medication Refill Social History Tobacco Use Types [...] Telephone Encounter - Risa Carrizales RN - 12/14/2020 5:24 PM EDT Refill line request for : Onfi Last rx:06/2020 Quantity:1 mo Refills: 5 Last appt: 09/29/20 - cancelled Last appt 11/2019 FUV needed - msg to racing secretary documented in this encounter Plan of Treatment Upcoming Encounters Date Type Department Care Team (Late st Contact Info) Description 08/06/2024 11:00 AM EST Office [place] [address] Sarah Serra APRN [facility] [place] [address] documented as of this encounter Goals Goal Patient Goal Type Associated Problems Recent Progress Patient-Stated? Author [facility] Medication Compliance and Understanding Patient Facing Action Plan On track( 024 12:05 PM EDT) Arnel Hurd, [facility] Note: Patient's specific desired goal: reduce number of seizures, with secondary goal of being able to taper some of the other AEDs being used Measured by: seizure record, side effects exhibited Time-frame to meet goal: 3-6 months documented as of this encounter Visit Diagnoses Not on filedocumented in this encounter Care Teams Water Conservation Specialist Relationship Specialty Start Date End Date Luis Manuel Blanca MD [address] [place] [address] [address] [facility] 1 [place] [address] PCP - General Family Medicine 06/24/16 documented as of this encounter
--- OUTSIDE RECORDS SUMMARY | 2024-06-28 22:00 | XMS_ITS | Encounter Summary ---
[place] [address] Care Team Providers Care Explosives Operator Name Role Phone Luis Manuel Blanca MD Primary Care Provider [phone] [phone] Encounter Details Date Type Department Care Team (Late st Contact Info) Description 04/01/2021 Specialty Pharmacy [place] [address] Bj Heck [facility] Social History Tobacco Use Types Packs/Day Years [...] Progress Notes * Bj Heck [facility] - 04/01/2021 12:26 PM EDT Clinical Management Plan: Refill Specialty Pharmacy Consultation; Bj Heck [facility] Comprehensive Medication Management (CMM) Cinthya Ed Alejandrabrianna [...] No Specialty Pharmacy Refill Questionnaire Refill Questionnaire 04/01/2021 What is the name of the specialty medication you are refilling? epidiolex Are you taking any new medications? Yes Please explain J/J covid vaccine Any new medical condition? No Please explain - Any new allergies? No Any new side effects that are bothersome? No What date will you need this fill by? 04/10/2021 Adherence: Any missed doses? No Patient understands no changes to current drug regimen were made.. Bj Heck RPH 04/01/21 12:27 PM documented in this encounter Plan of Treatment Upcoming Encounters Date Type Department Care Team (Late st Contact Info) Description 08/06/2024 11:00 AM EST Office [place] [address] Sarah Serra APRN [facility] [place] [address] documented as of this encounter Goals Goal Patient Goal Type Associated Problems Recent Progress Patient-Stated? Author [facility] Medication Compliance and Understanding Patient Facing Action Plan On track( 024 12:05 PM EDT) No Arnel Benitez [facility] Note: Patient's specific desired goal: reduce number of seizures, with secondary goal of being able to taper some of the other AEDs being used Measured by: seizure record, side effects exhibited Time-frame to meet goal: 3-6 months documented as of this encounter Visit Diagnoses Not on filedocumented in this encounter Care Teams Explosives Operator Relationship Specialty Start Date End Date Luis Manuel Blanca MD [address] [place], [place] [address]Y [facility] 1 [place] [address] PCP - General Family Medicine 06/24/16 documented as of this encounter
--- OUTSIDE RECORDS SUMMARY | 2024-06-28 22:00 | XMS_ITS | Encounter Summary ---
[place] [address] Care Team Providers Care Supervisor Cooler Service Name Role Phone Luis Manuel Blanca MD Primary Care Provider [phone] [phone] Reason for Visit * Reason Comments Medication Management Patient Education Encounter Details Date Type Department Care Team (Late st Contact Info) Description 01/12/2021 Specialty [place] [phone] Bj Heck [facility] Social History Tobacco Use Types [...] encounter Progress Notes * Bj Heck [facility] - 01/12/2021 11:51 AM EDT Clinical Management Plan: Refill Specialty Pharmacy Consultation; Bj Heck [facility] Comprehensive Medication Management (CMM) Cinthya Ed Alejandrabrianna Ms. Cinthya Brown is a 60 y.o. (1960) female who was contacted in regard to a specialty medication refill reminder. Contact made with caregiver. Caregiver name: Forgot name regarding Epidiolex.A review of the medication therapy was performed. [...] No Specialty Pharmacy Refill Questionnaire Refill Questionnaire 01/12/2021 What is the name of the specialty medication you are refilling? epidiolex Are you taking any new medications? No Please explain - Any new medical condition? No Please explain - Any new allergies? No Any new side effects that are bothersome? No What date will you need this fill by? 01/19/2021 Adherence: Any missed doses? No Patient understands no changes to current drug regimen were made.. Bj Heck RPH 01/12/21 11:52 AM documented in this encounter Plan of Treatment Upcoming Encounters Date Type Department Care Team (Late st Contact Info) Description 08/06/2024 11:00 AM EST Office [place] [address] Sarah Serra APRN [facility] [place] [address] documented as of this encounter Goals Goal Patient Goal Type Associated Problems Recent Progress Patient-Stated? Author [facility] Medication Compliance and Understanding Patient Facing Action Plan On track( 024 12:05 PM EDT) No Arnel Benitez [facility] Note: Patient's specific desired goal: reduce number of seizures, with secondary goal of being able to taper some of the other AEDs being used Measured by: seizure record, side effects exhibited Time-frame to meet goal: 3-6 months documented as of this encounter Visit Diagnoses Not on filedocumented in this encounter Care Teams Supervisor Cooler Service Relationship Specialty Start Date End Date Luis Manuel Blanca MD [address] [place] [address] [address] [place] [address] PCP - General Family Medicine 06/24/16 documented as of this encounter
--- OUTSIDE RECORDS SUMMARY | 2024-06-28 22:00 | XMS_ITS | Encounter Summary ---
[place] [address] Care Team Providers Care Floor Clerk Name Role Phone Luis Manuel Blanca MD Primary Care Provider [phone] [phone] Encounter Details Date Type Department Care Team (Late st Contact Info) Description 04/22/2020 Orders [place] [address] Sarah Serra SUPERVISOR [employer] [facility] [place] [address] Epilepsy seizure, generalized, convulsive (Primary Dx) Social History Tobacco Use Types Packs/Day Years [...] 11:00 AM EST [place] [phone] Sarah Serra APRN [facility] [place] [address] documented as of this encounter Goals Goal Patient Goal Type Associated Problems Recent Progress Patient-Stated? Author [facility] Medication Compliance and Understanding Patient Facing Action Plan On track( 024 12:05 PM EDT) Arnel Hurd, [facility] Note: Patient's specific desired goal: reduce number of seizures, with secondary goal of being able to taper some of the other AEDs being used Measured by: seizure record, side effects exhibited Time-frame to meet goal: 3-6 months documented as of this encounter Visit Diagnoses Diagnosis Epilepsy seizure, generalized, convulsive- Primary Generalized convulsive epilepsy without mention of intractable epilepsy documented in this encounter Care Teams Floor Clerk Relationship Specialty Start Date End Date Luis Manuel Blanca MD [address] [place] [address] PCP - General Family Medicine 06/24/16 documented as of this encounter
--- OUTSIDE RECORDS SUMMARY | 2024-06-28 22:01 | XMS_ITS | Encounter Summary ---
[place] [address] Care Team Providers Care Explosives Truck Driver Name Role Phone Luis Manuel Blanca MD Primary Care Provider [phone] [phone] Encounter Details Date Type Department Care Team (Late st Contact Info) Description 10/16/2019 External [place] [address] Sarah Serra [facility] [place] [address] Social History Tobacco Use Types Packs/Day Years [...] 11:00 AM EST [place] [address] Sarah Serra APRN [facility] [place] [address] documented as of this encounter Goals Goal [...] Procedure Name Priority Date/Time Associated Diagnosis Comments PHENOBARBITAL LEVEL Routine 10/09/2019 documented in this encounter Results * (ABNORMAL) Phenobarbital level (10/09/2019) Phenobarb Lvl (DECEMBER) 40.8(A) 15 - 40 Sodium 135(A) 136 - 145 Potassium 3.9 3.5 - 5.1 Chloride 95(A) 98 - 107 Carbon Dioxide 34(A) 21 - 32 Anion Gap 6 3 - 11 Blood specimen (specimen) 10/09/2019 Historical Provider MD CHEMISTRY ORDERAB LES documented in this encounter Visit Diagnoses Not on filedocumented in this encounter Care Teams Explosives Truck Driver Relationship Specialty Start Date End Date Luis Manuel Blanca MD [address] [place] [address] PCP - General Family Medicine 06/24/16 documented as of this encounter
--- OUTSIDE RECORDS SUMMARY | 2024-06-28 22:01 | XMS_ITS | Encounter Summary ---
[place] [address] Care Team Providers Care Career Developer Name Role Phone Luis Manuel Blanca MD Primary Care Provider +1 [phone] Reason for Visit * Reason Onset Date Comments Medication Refill 03/10/2020 Encounter Details Date Type Department Care Team (Late st Contact Info) Description 03/10/2020 [place] [address] Sarah Serra APRN [facility] [place] [address] Social History Tobacco Use Types Packs/Day Years [...] 11:00 AM EST Office [place] [address] Sarah Serra APRN [facility] [place] [address] documented as of this encounter Goals Goal Patient Goal Type Associated Problems Recent Progress Patient-Stated? Author [facility] Medication Compliance and Understanding Patient Facing Action Plan On track( 024 12:05 PM EDT) Arnel Hurd, [facility] Note: Patient's specific desired goal: reduce number of seizures, with secondary goal of being able to taper some of the other AEDs being used Measured by: seizure record, side effects exhibited Time-frame to meet goal: 3-6 months documented as of this encounter Visit Diagnoses Not on filedocumented in this encounter Care Teams Career Developer Relationship Specialty Start Date End Date Luis Manuel Blanca MD [address] [place] [address] [facility] 1 [place] [address] PCP - General Family Medicine 06/24/16 documented as of this encounter
--- OUTSIDE RECORDS SUMMARY | 2024-06-28 22:01 | XMS_ITS | Encounter Summary ---
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 CAP (community acquired pneumonia) ??? Epilepsy with status epilepticus ??? Seizure ??? Status epilepticus ??? Sleep apnea ??? Mental retardation I spoke with Cinthya Brown and her caregiver Fifi today for a phone visit in lieu of our regular follow up due to risk of coronavirus. Fifi verbally consented to the telephone visit as Alix is not her own guardian however she is present and I can hear her talking in the background and telling me things on the telephone . Fifireports they understand that this visit may be billed, similar to a clinic visit. Fifi reports that Alix is doing quite [...] interest and engagement in her typical activities. They request refills today. They report having no further questions or concerns, they wish that we could have seen him in person so I can see how well she is doing that they are looking forward to seeing me in the future. It was a pleasure speaking with Cinthya today. Sarah Serra APRN [facility]psy [facility] Department of Neurology Total time of telephone call: 10 documented in this encounter Plan of Treatment Upcoming Encounters Date Type Department Care Team (Late st Contact Info) Description 08/06/2024 11:00 AM EST [place] [address] Sarah Serra APRN [facility] [place] [address] documented as of this encounter Goals Goal Patient Goal Type Associated Problems Recent Progress Patient-Stated? 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
--- OUTSIDE RECORDS SUMMARY | 2024-06-28 22:01 | XMS_ITS | Encounter Summary ---
[place] [address] Care Team Providers Care Prospect Manager Name Role Phone Luis Manuel Blanca MD Primary Care Provider [phone] [phone] Reason for Visit * Reason Comments Medication Management Encounter Details Date Type Department Care Team (Late st Contact Info) Description 03/20/2019 Specialty [place] [address] Bj Heck [facility] Social [...] Bj Heck [facility] - 03/20/2019 9:03 AM EDT Clinical Management Plan: Refill Specialty Pharmacy Consultation; Bj Heck [facility] Comprehensive Medication Management (CMM) Cinthya Ed Alejandrabrianna Ms. Cinthya Brown is a 58 y.o. (1960) female who was contacted in regard to a specialty medication refill reminder. Spoke with caregiver. Caregiver name: Lulu regarding EPIDIOLEX. A review of the medication therapy was performed. The medication was Refilled as scheduled, and all medication related questions and concerns were addressed. The specialty pharmacy staff will follow up with the patient 5-7 days prior to next refill. Was a change made to the Care Plan: no Assessment and Recommendations: Title Type of Medication Management: targeted medication review, chronic disease management Referred By: pharmacist Recipient: caregiver Provider: plan sponsor pharmacist [facility] Method of Contact: by telephone Cognitive Ability: good Allergies and Drug intolerance: Allergies Allergen Reactions ??? Amoxicillin-Pot Clavulanate Rash ??? Risedronate Sodium Nausea And Vomiting Medication Reconciliation Discrepancies (compared to [facility] med list) -none New medications: no [...] made at the appointment and that [facility] is providing recommendations (summary located at top of note) for provider review and follow up. Bj Heck RPH 03/20/19 9:09 AM documented in this encounter Plan of Treatment Upcoming Encounters Date Type Department Care Team (Late st Contact Info) Description 08/06/2024 11:00 AM EST [place] [address] Sarah Serra APRN [facility] [place] [address] documented as of this encounter Goals Goal Patient Goal Type Associated Problems Recent Progress Patient-Stated? Author [facility] Medication Compliance and Understanding Patient [...] on filedocumented in this encounter Care Teams Prospect Manager Relationship Specialty Start Date End Date Luis Manuel Blanca MD [address] [place] [address] PCP - General Family Medicine 06/24/16 documented as of this encounter
--- OUTSIDE RECORDS SUMMARY | 2024-06-28 22:01 | XMS_ITS | Encounter Summary ---
[place] [address] Care Team Providers Care American Board Certified Orthotist Name Role Phone Luis Manuel Blanca MD Primary Care Provider [phone] [phone] Encounter Details Date Type Department Care Team (Late st Contact Info) Description 04/09/2020 [place] [address] Sarah Srera [facility] [place] [address] Social History Tobacco Use Types Packs/Day Years [...] 11:00 AM EST Office [place] [address] Sarah Serra BUSINESS REPRESENTATIVE [facility] [place] [address] documented as of this encounter Goals Goal Patient Goal Type Associated Problems Recent Progress Patient-Stated? Author [facility] Medication Compliance and Understanding Patient Facing Action Plan On track( 024 12:05 PM EDT) Arnel Hurd, [facility] Note: Patient's specific desired goal: reduce number of seizures, with secondary goal of being able to taper some of the other AEDs being used Measured by: seizure record, side effects exhibited Time-frame to meet goal: 3-6 months documented as of this encounter Visit Diagnoses Not on filedocumented in this encounter Care Teams American Board Certified Orthotist Relationship Specialty Start Date End Date Luis Manuel Blanca MD [address] [place] [address] PCP - General Family Medicine 06/24/16 documented as of this encounter
--- OUTSIDE RECORDS SUMMARY | 2024-06-28 22:01 | XMS_ITS | Encounter Summary ---
Author Organization [facility] [place] [address] Care Team Providers Care Aviation All Source Intelligence Name Role Phone Luis Manuel Blanca MD Primary Care Provider [phone] [phone] Reason for Visit * Reason Comments Rash * Consultation (Routine) - Specialty Diagnoses / Procedures Referred By Koby soto Referred To Contact Dermatology Diagnoses Rash Sarah Serra APRN [facility] [place] [address] Htr Dermatology [address] [place] [address] Referral ID Status Reason Start Date Expiration Date V isits Requested Visits Authorized [id number] Consult, Test & Treat 05/21/2019 05/20/2020 1 1 Encounter Details Date Type Department Care Team (Latest Contact Info) Description 09/23/2019 1:00 PM EST Office Visit Dermatology at [facility] [address] [place] [address] Rhiannon Levy MD [facility] [place] [address] Generalized essential telangiectasia Social History Tobacco Use Types Packs/Day Years Used Date Smoking Tobacco: Never Smokeless Tobacco: Never Alcohol Use Standard Drinks/Week Comments No 0 (1 standard drink = 0.6 oz pur e alcohol) Sex and Gender Information Value Date Recorded Sex Assigned at Not on file Gender Identity Not on file Sexual Orientation Not on file documented as of this encounter Patient Instructions * Patient Instructions* Rhiannon Levy - 09/23/2019 1:00 PM EST Dilated blood vessels on the arms: Diagnosis favored at this time: generalized essential telangiectasia Plan: Moisturize daily - Vaseline petroleum jelly, CeraVe cream, Cetaphil cream, or Vanicream cream Sun protection at all times: protective clothing, SPF 30+ daily whenever skin is exposed Keep any blisters/nodules protected with Vaseline and gauze dressing We will consider a biopsy in the future if anything worsens/changes Follow up in 6 months, sooner if needed documented in this encounter Progress Notes * Rhiannon Levy - 09/23/2019 1:00 PM EST Images from the original note were not included. DERMATOLOGY - NEW PATIENT NOTE Date of service: 09/23/2019 Cinthya Brown : 1960, 59 y.o. Chief Complaint: Chief Complaint Patient presents with ??? Rash HPI: Cintyha Brown is a 59 y.o. female referred by Sarah Serra with the following concerns:Bilateral arms and legs with red rash present ~17 years. Was evaluated around the time it began with extensive testing without finding a diagnosis. Doesn't bother her - maybe slightly itchy at times. During the summer the warmth and sun makes it worse. Within the last few months blood blisters p op up within the area and with minor trauma, e.g. pulling sleeves up and down, break and bleed and then go away. Not currently treating with anything. Used to have a similar appearing rash on the legs but this has resolved. Relevant Skin/Med History: - Okay to leave detailed message with results? yes - Skin cancer (including type): none - Seizure disorder Family History: Melanoma: none known Relevant Social History: - Has a caregiver - not employed Meds: Current Outpatient Medications Medication Sig Dispense Refill ??? cannabidiol (EPIDIOLEX) 100 mg/mL Solution 4.3 ml twice daily. 258 mL 3 ??? TRILEPTAL 600 mg Tablet TAKE ONE TABLET BY MOUTH THREE TIMES A DAY 90 tablet 5 ??? BANZEL 400 mg Tablet TAKE THREE TABLETS BY MOUTH THREE TIMES A DAY 270 tablet 5 ??? PHENobarbital (LUMINAL) 60 mg Tablet TAKE 2 TABLETS BY MOUTH EVERY EVENING 180 tablet 1 ??? clotrimazole-betamethasone (LOTRISONE) 1-0.05 % Cream Apply 1 Application topically as needed. 0 ??? NYSTOP Powder Apply 1 Application topically as needed. 0 ??? LORazepam (ATIVAN) 1 mg Tablet Take 1-2 tablets at onset of seizure symptoms, if ineffective after 30 minutes may repeat dose. If still not effective please call neurologist manager relationship. Max 4mg daily. Take 0.5-1mg prior to seizure triggering activity. 45 tablet 5 ??? cholecalciferol, Vitamin D3, (VITAMIN D) 1,000 unit Capsule Take 1 capsule by mouth 2 times daily. 60 capsule 5 ??? cloBAZam (ONFI) 10 mg Tablet Take 2 tablets by mouth nightly. 60 tablet 5 ??? diaZEPam (DIASTAT ACUDIAL) 12.5-15-17.5-[address] 15 mg rectally as needed (1 syringe forcluster of seizures.). if ineffective after 30 minutes may repeat dose. If still not effective please call neurologist manager relationship. 1 kit 3 ??? midazolam, PF, (VERSED) 5 mg/mL Solution 5 mg by nasal route as needed (seizure clusters). Using atomizer, administer 2.5 mg (0.5ml) into nasal passage, then repeat with other side. 20 mL 3 ??? sertraline (ZOLOFT) 100 mg Tablet Take 1 tablet by mouth daily. 90 tablet 0 ??? acetaminophen (TYLENOL) 500 mg Tablet Take 500 mg by mouth 2 times daily. ??? QUEtiapine (SEROQUEL) 50 mg Tablet Take 25 mg by mouth nightly. ??? melatonin 3 [...] No current facility-administered medications for this visit. Allergies: Allergies Allergen Reactions ??? Amoxicillin-Pot Clavulanate Rash ??? Risedronate Sodium Nausea And Vomiting Review of Systems: - General: Feels well. - Skin: No other skin concerns. Examination: - Constitutional: Patient was alert, well-appearing and in no noticeable distress. - Skin: Skin examination of the face, ears, neck, right and left upper extremities, right and left lower extremities, and hands was normal with the exception of the findings listed below. - A female nurse was present and on standby during my examination. Diagnosis/Skin findings/Assessment/Plan: 1. Telangiectasias and angiomas - confluent petechiae and telangiectasias, non- blanching, on the bilateral dorsal hands and dorsal forearms with four ~2-4mm red-purple soft nodules within area of petechiae - DDx favor generalized essential telangiectasia - Plan: - Moisturize daily - Vaseline petroleum jelly, CeraVe cream, Cetaphil cream, or Vanicream cream - Sun protection at all times: protective clothing, SPF 30+ daily whenever skin is exposed - Keep any nodules protected with Vaseline and gauze dressing - consider a biopsy in the future if anything worsens/changes RTC: 6 months, sooner if needed The following photos were obtained with patient consent: Note initiated by MAURICIO Norton. I, MAURICIO Norton, have performed the documentation for this encounter in the presence of and acting as a scribe for Rhiannon Levy MD. I performed the services which were documented by the scribe, and I agree with the accuracy of the documentation in this encounter. Rhiannon Levy MD Reviewed and signed by Rhiannon Levy MD Resident in Dermatology [facility] Patient seen in conjunction with staff supervisor phosphoric acid: Jt Adames MD Section of Dermatology [facility] * Jt Adames III, MD - 09/23/2019 1:00 PM EST I directly supervised Dr. Levy during this office visit. Dr. Levy presented the history and physical exam to me. I then saw and examined this patient with Dr. Levy. We reviewed the history and pertinent details and I confirmed the physical findings. I agree with the details of the history and physical exam as documented in Dr. Levy's note. If any of the papular lesions fail to resolve or progress and cause a problem we should consider a biopsy. We discussed this with the field administrative assistant and they will call if problems arise. We will see her back as planned. JT ADAMES III, MD Staff Physician documented in this encounter Plan of Treatment Upcoming Encounters Date Type Department Care Team (Late st Contact Info) Description 08/06/2024 11:00 AM EST [place] [address] Sarah Serra APRN [facility] [place] [address] Scheduled Referrals Name Type Priority Associated Diagnoses Order Schedule Referral to Dermatology Outpatient Referral Routine Rash Ordered: 05/21/2019 documented as of this encounter Goals Goal Patient Goal Type Associated Problems Recent Progress Patient-Stated? Author [facility] Medication Compliance and Understanding Patient Facing Action Plan On track( 024 12:05 PM EDT) Arnel Hurd, [facility] Note: Patient's specific desired goal: reduce number of seizures, with secondary goal of being able to taper some of the other AEDs being used Measured by: seizure record, side effects exhibited Time-frame to meet goal: 3-6 months documented as of this encounter Visit Diagnoses Diagnosis Generalized essential telangiectasia Other and unspecified capillary diseases documented in this encounter Care Teams Aviation All Source Intelligence Relationship Specialty Start Date End Date Luis Manuel Blanca MD [address] [place] [address] PCP - General Family Medicine 06/24/16 documented as of this encounter
--- OUTSIDE RECORDS SUMMARY | 2024-06-28 22:01 | XMS_ITS | Encounter Summary ---
[place] [address] Care Team Providers Care Vocational Trainer Name Role Phone Luis Manuel Blanca MD Primary Care Provider [phone] Reason for Visit * Reason Comments Medication Management Patient Education Encounter Details Date Type Department Care Team (Late st Contact Info) Description 10/31/2019 Specialty [place] [phone] Bj Heck [facility] Social History Tobacco Use Types [...] this encounter Progress Notes * Bj Heck [facility] - 10/31/2019 8:58 AM EDT Clinical Management Plan: Refill Specialty Pharmacy Consultation; Bj Heck [facility] Comprehensive Medication Management (CMM) Cinthya Ed Kevin Ms. Cinthya Brown is a 59 y.o. (1960) female who was contacted in regard to a specialty medication refill reminder. Spoke with patient regarding EPIDIOLEX. A review of the medication therapy was performed. The medication was scheduled for a fill, and all medication related questions and concerns were addressed. The specialty pharmacy staff will follow up with the patient 5-7 days prior to next refill. Was a change made to the Care Plan: no Assessment and Recommendations: Title Type of Medication Management: chronic disease management, targeted medication review Referred By: pharmacist Recipient: caregiver Provider: plan sponsor pharmacist Visit Type: [facility] Follow-up Method of Contact: by telephone Cognitive Ability: good Allergies and Drug intolerance: Allergies Allergen Reactions ??? Amoxicillin-Pot Clavulanate Rash ??? Risedronate Sodium Nausea And Vomiting Medication Reconciliation Discrepancies (compared to [facility] med list) -none New medications: no [...] were made at the appointment and that [facility] is providing recommendations (summary located at top of note) for provider review and follow up. Bj Heck RPH 10/31/19 9:01 AM documented in this encounter Plan of Treatment Upcoming Encounters Date Type Department Care Team (Late st Contact Info) Description 08/06/2024 11:00 AM EST Office [place] [address] Sarah Serra APRN [facility] [place] [address] documented as of this encounter Goals Goal Patient Goal Type Associated Problems Recent Progress Patient-Stated? Author [facility] Medication Compliance and Understanding Patient Facing Action Plan On track( 024 12:05 PM EDT) No Arnel Benitez [facility] Note: Patient's specific desired goal: reduce number of seizures, with secondary goal of being able to taper some of the other AEDs being used Measured by: seizure record, side effects exhibited Time-frame to meet goal: 3-6 months documented as of this encounter Visit Diagnoses Not on filedocumented in this encounter Care Teams Vocational Trainer Relationship Specialty Start Date End Date Luis Manuel Blanca MD [address] [place] [address] PCP - General Family Medicine 06/24/16 documented as of this encounter
--- OUTSIDE RECORDS SUMMARY | 2024-06-28 22:01 | XMS_ITS | Encounter Summary ---
[place] [address] Care Team Providers Care Fisher Diver Net Name Role Phone Luis Manuel Blanca MD Primary Care Provider [phone] Encounter Details Date Type Department Care Team (Late st Contact Info) Description 05/09/2019 External [place] [address] Sarah Serra MIXER LEVER OPERATOR [facility] [place] [address] Social History Tobacco Use Types Packs/Day Years [...] 11:00 AM EST [place] [phone] Sarah Serra APRN [facility] [place] [address] documented as of this encounter Goals Goal [...] Procedure Name Priority Date/Time Associated Diagnosis Comments HEPATIC FUNCTION PANEL Routine 05/08/2019 documented in this encounter Results * Hepatic Function Panel (05/08/2019) Protein, Total 7.5 Albumin 4.1 Bilirubin, Total 0.3 Bilirubin, Direct 0.09 Alkaline Phosphatase 105 Aspartate Aminotransferase 14 Alanine Aminotransferase 29 Phenobarb Lvl (DECEMBER) 32.7 Blood specimen (specimen) 05/08/2019 Historical Provider CHEMISTRY ORDERAB LES documented in this encounter Visit Diagnoses Not on filedocumented in this encounter Care Teams Fisher Diver Net Relationship Specialty Start Date End Date Luis Manuel Blanca MD [address] [place] [address] PCP - General Family Medicine 06/24/16 documented as of this encounter
--- OUTSIDE RECORDS SUMMARY | 2024-06-28 22:01 | XMS_ITS | Encounter Summary ---
[place] [address] Care Team Providers Care Pattern Marker Name Role Phone Luis Manuel Blanca MD Primary Care Provider [phone] Reason for Visit * Reason Comments Medication Management Patient Education Encounter Details Date Type Department Care Team (Late st Contact Info) Description 09/12/2019 Specialty Pharmacy [place] [phone] Bj Heck [facility] [...] Heck [facility] - 09/12/2019 8:33 AM EST Clinical Management Plan: Refill Specialty Pharmacy Consultation; Bj Heck [facility] Comprehensive Medication Management (CMM) Cinthya Brown Ms. Cinthya Brown is a 58 y.o. (1960) female who refilled their specialty medication, EPIDIOLEX , without speaking to a artist representative from the Specialty Pharmacy. The medication was refilled on 09/12/19 for a 30 day supply for 0 copay. It will be mailed out on Monday09/16/19. This is a new dose, Lili contacted the caregiver on 08/22/19 and confirmed the new dose. Adherence: Gaps in fill history: NONE Was a change made to the Care Plan: no The specialty pharmacy staff will follow up with the patient 5-7 days prior to next refill for reminder if needed. Bj Heck RPH 09/12/19 8:34 AM documented in this encounter Plan of Treatment Upcoming Encounters Date Type Department Care Team (Late st Contact Info) Description 08/06/2024 11:00 AM EST Office [place] [address] Sarah Serra APRN [facility] [place] [address] documented as of this encounter Goals Goal Patient Goal Type Associated Problems Recent Progress Patient-Stated? Author [facility] Medication Compliance and Understanding Patient Facing Action Plan On track( 024 12:05 PM EDT) No Arnel Beintez [facility] Note: Patient's specific desired goal: reduce number of seizures, with secondary goal of being able to taper some of the other AEDs being used Measured by: seizure record, side effects exhibited Time-frame to meet goal: 3-6 months documented as of this encounter Visit Diagnoses Not on filedocumented in this encounter Care Teams Pattern Marker Relationship Specialty Start Date End Date Luis Manuel Blanca MD [address] [place] [address] PCP - General Family Medicine 06/24/16 documented as of this encounter
--- OUTSIDE RECORDS SUMMARY | 2024-06-28 22:01 | XMS_ITS | Encounter Summary ---
[place] [address] Care Team Providers Care Railway Station Manager Name Role Phone Luis Manuel Blanca MD Primary Care Provider [phone] Reason for Visit * Reason Comments Medication Management Patient Education Encounter Details Date Type Department Care Team (Late st Contact Info) Description 11/27/2019 Specialty [place] [phone] Bj Heck [facility] Social History Tobacco Use Types Packs/Day [...] Progress Notes * Bj Heck [facility] - 11/27/2019 1:08 PM EDT Clinical Management Plan: Refill Specialty Pharmacy Consultation; Bj Heck [facility] Comprehensive Medication Management (CMM) Cinthya Ed Flakotoniobrianna [...] caregiver Provider: pharmacist - other Visit Type: [facility] Follow-up Method of Contact: by telephone Cognitive Ability: good Allergies and Drug intolerance: Allergies Allergen Reactions ??? Amoxicillin-Pot Clavulanate Rash ??? Risedronate Sodium Nausea And Vomiting Medication Reconciliation Discrepancies (compared to [facility] med list) -None New medications: no New medical conditions: no [...] were made at the appointment and that [facility] is providing recommendations (summary located at top of note) for provider review and follow up. Bj Heck RPH 11/27/19 1:10 PM documented in this encounter Plan of Treatment Upcoming Encounters Date Type Department Care Team (Late st Contact Info) Description 08/06/2024 11:00 AM EST Office [place] [address] Sarah Serra APRN [facility] [address] documented as of this encounter Goals Goal Patient Goal Type Associated Problems Recent Progress Patient-Stated? Author [facility] Medication Compliance and Understanding Patient Facing Action Plan On track( 024 12:05 PM EDT) No Arnel Benitez [facility] Note: Patient's specific desired goal: reduce number of seizures, with secondary goal of being able to taper some of the other AEDs being used Measured by: seizure record, side effects exhibited Time-frame to meet goal: 3-6 months documented as of this encounter Visit Diagnoses Not on filedocumented in this encounter Care Teams Railway Station Manager Relationship Specialty Start Date End Date Luis Manuel Blanca MD [address] [place] [address] PCP - General Family Medicine 06/24/16 documented as of this encounter
--- OUTSIDE RECORDS SUMMARY | 2024-06-28 22:01 | XMS_ITS | Encounter Summary ---
[place] [address] Care Team Providers Care Client Support Coordinator Name Role Phone Luis Manuel Blanca MD Primary Care Provider [phone] Reason for Visit * Reason Comments Medication Management Patient Education Encounter Details Date Type Department Care Team (Late st Contact Info) Description 10/08/2019 Specialty [place] [phone] Bj Heck [facility] Social History Tobacco Use Types Packs/Day [...] this encounter Progress Notes * Bj Heck [facility] - 10/08/2019 9:14 AM EST Clinical Management Plan: Refill Specialty Pharmacy Consultation; Bj Heck [facility] Comprehensive Medication Management (CMM) Cinthya Ed Kevin [...] caregiver Provider: plan sponsor pharmacist Visit Type: [facility] Follow-up Method of Contact: by telephone Cognitive Ability: good Allergies and Drug intolerance: Allergies Allergen Reactions ??? Amoxicillin-Pot Clavulanate Rash ??? Risedronate Sodium Nausea And Vomiting Medication Reconciliation Discrepancies (compared to [facility] med list) -no New medications: no New medical conditions: no [...] that [facility] is providing recommendations (summary located at top of note) for provider review and follow up. Bj Heck RPH 10/08/19 9:21 AM documented in this encounter Plan of Treatment Upcoming Encounters Date Type Department Care Team (Late st Contact Info) Description 08/06/2024 11:00 AM EST [place] [address] Sarah Serra APRN [facility] [place] [address] documented as of this encounter Goals Goal Patient Goal Type Associated Problems Recent Progress Patient-Stated? Author [facility] Medication Compliance and Understanding Patient Facing Action Plan On track( 024 12:05 PM EDT) No Arnel Benitez [facility] Note: Patient's specific desired goal: reduce number of seizures, with secondary goal of being able to taper some of the other AEDs being used Measured by: seizure record, side effects exhibited Time-frame to meet goal: 3-6 months documented as of this encounter Visit Diagnoses Not on filedocumented in this encounter Care Teams Client Support Coordinator Relationship Specialty Start Date End Date Luis Manuel Blanca MD [address] [place] [address] PCP - General Family Medicine 06/24/16 documented as of this encounter
--- OUTSIDE RECORDS SUMMARY | 2024-06-28 22:01 | XMS_ITS | Encounter Summary ---
[place] [address] Care Team Providers Care Revit Drafter Name Role Phone Luis Manuel Blanca MD Primary Care Provider [phone] Reason for Visit * Reason Onset Date Comments Questions 03/13/2020 Encounter Details Date Type Department Care Team (Late st Contact Info) Description 03/13/2020 Telephone [place] [phone] Sarah Serra APRN [facility] [place] [address] Questions Social History Tobacco Use Types Packs/Day [...] Telephone Encounter - Lili Otero RN - 03/13/2020 12:09 PM EDT Spoke to pharmacist. Reports that patient has been taking Onfi brand name. Rx updated. Pharmacist will call back if there's any issues with the rx or if it's needing PA approval. * Telephone Encounter - Fifi Batista - 03/13/2020 11:10 AM EDT Use for LOCAL PHARMACY CALL QUESTIONS - do not use for mail order pharmacy calls Provider patient sees in Clinic: Sarah Serra Name of Pharmacy: [facility] Name of Caller: Jory Callers role at pharmacy: Pharmacist Call back number: [phone] Extension: What is the medication: cloBAZam (Onfi) 10 mg Tablet What is the specific question the pharmacy has about the medication: Jory called stating the brandname of this script is typically requested and she would like to be sure if this script is correct.Please call Jory back Disposition of Call ?? Message forwarded to nurse documented in this encounter Plan of Treatment Upcoming Encounters Date Type Department Care Team (Late st Contact Info) Description 08/06/2024 11:00 AM EST Office [place] [address] Sarah Serra APRN [facility] [place] [address] documented as of this encounter Goals Goal Patient Goal Type Associated Problems Recent Progress Patient-Stated? Author [facility] Medication Compliance and Understanding Patient Facing Action Plan On track( 024 12:05 PM EDT) No Arnel Benitez, [facility] Note: Patient's specific desired goal: reduce number of seizures, with secondary goal of being able to taper some of the other AEDs being used Measured by: seizure record, side effects exhibited Time-frame to meet goal: 3-6 months documented as of this encounter Visit Diagnoses Not on filedocumented in this encounter Care Teams Revit Drafter Relationship Specialty Start Date End Date Luis Manuel Blanca MD [address] [place] [address] [address] [place] [address] PCP - General Family Medicine 06/24/16 documented as of this encounter
--- OUTSIDE RECORDS SUMMARY | 2024-06-28 22:01 | XMS_ITS | Encounter Summary ---
[place] [address] Care Team Providers Care Hat Blocking Machine Operator Name Role Phone Luis Manuel Blanca MD Primary Care Provider [phone] Encounter Details Date Type Department Care Team (Late st Contact Info) Description 05/21/2019 Specialty [place] [address] Arnel Benitez [facility] Social History Tobacco Use Types Packs/Day [...] this encounter Progress Notes * Arnel Benitez [facility] - 05/21/2019 1:58 PM EDT Clinical Management Plan: Refill Specialty Pharmacy Consultation; Arnel Benitez RPH Comprehensive Medication Management (CMM) Cinthya Ed Flakotoniobrianna Ms. Cinthya Brown is a 58 y.o. (1960) female who refilled their specialty medication, EPIDIOLEX , without speaking to a admitting representative from the Specialty Pharmacy. The medication was refilled on 05/21/19 for a 30 day supply for $0 copay. Adherence: Gaps in fill history: none Was a change made to the Care Plan: no The specialty pharmacy staff will follow up with the patient 5-7 days prior to next refill for reminder if needed. Arnel Benitez RPH 05/21/19 1:58 PM documented in this encounter Plan of Treatment Upcoming Encounters Date Type Department Care Team (Late st Contact Info) Description 08/06/2024 11:00 AM EST [place] [address] Sarah Serra PSYCHOLOGICAL STRESS EVALUATOR [facility] [place] [address] documented as of this encounter Goals Goal Patient Goal Type Associated Problems Recent Progress Patient-Stated? Author [facility] Medication Compliance and Understanding Patient Facing [...] on filedocumented in this encounter Care Teams Hat Blocking Machine Operator Relationship Specialty Start Date End Date Luis Manuel Blanca MD [address] [place] [address] PCP - General Family Medicine 06/24/16 documented as of this encounter
--- OUTSIDE RECORDS SUMMARY | 2024-06-28 22:01 | XMS_ITS | Encounter Summary ---
[place] [address] Care Team Providers Care Roof Truss Builder Name Role Phone Luis Manuel Blanca MD Primary Care Provider [phone] [phone] Encounter Details Date Type Department Care Team (Late st Contact Info) Description 02/18/2019 Specialty Pharmacy [place] [address] Arnel Benitez [facility] Social History Tobacco Use Types [...] this encounter Progress Notes * Arnel Benitez [facility] - 02/18/2019 9:22 AM EDT Specialty Pharmacy Consultation; Arnel Benitez RPH Comprehensive Medication Management (CMM) Cinthya Brown Diagnosis: Epilepsy with status epilepticus Therapy Start Date: 01/30/19 Contact in person or via telephone: telephone Ms. Cinhtya Brown is a 58 y.o. (1960) female who was contacted in regard to specialty medication. Spoke with caregiver. Caregiver name: Lulu regarding EPIDIOLEX. A review of the medication therapy was performed. The medication was refilled as scheduled, and all medication related questions and concerns were addressed. The specialty pharmacy staff will follow up with the patient 5-7 daysprior to next refill. Is the patient willing to proceed with the Clinical Assessment? Yes Summary and Recommendations: Provided follow-up consultation with Lulu (caregiver). Verified titration to maintenance dose was completed. Offered drug information (to revisit warnings / precautions, possible side effects, etc) but Lulu declined. We briefly revisited the two drug interactions (clobazem and phenobarb) but no visible change in patient indicating that the interactions are causing a clinical problem. Lulu asked about a large seizure which Cinthya had on 02/05 which required both lorazepam and Diastat. She acknowledged that seizures are variable but noted that she has not had to use the Diastat in a long time. Pharmacy did not assign causality to the Epidiolex because the event was isolated, but will inform clinic. Lulu was reminded that Cinthya will need f/u hepatic panel on or about 03/01/19. Pharmacy will remind clinic of this too. Lulu is having no problems measuring with the fleet coordinator-supplied oral syringes and is storing the Epidiolex at room temp, as recommended. She washes the syringes as recommended. Cinthya is no longer using the [employer] CBD. Lulu asked for a couple of extra 5ml oral syringes. Clinic follow-up needed: yes - Cinthya will have regular f/u visits Allergies and Drug intolerance: Allergies Allergen Reactions ??? Amoxicillin-Pot Clavulanate Rash ??? Risedronate Sodium Nausea And Vomiting Special Dietary or Hydration Requirements: yes - in context of taking with high fat / high calorie food There is no height or weight on file to calculate BMI. Medication Reconciliation Discrepancies (compared to [facility] med list) yes - marked the initial (titration) dose of Epidiolex as completed Medication Adherence Patient reported X missed doses in the last month: 0 Any gaps in refill history greater than 2 weeks in the last 3 months: no Demonstrates understanding of importance of adherence: yes Informant: patient Reliability of informant: reliable Provider-estimated medication adherence level: 90-100% Adherence tools used: directed education Confirmed plan for next specialty medication refill: delivery by pharmacy Medication List: Current Outpatient Medications Medication Sig Note Dispense Refill ??? cannabidiol, CBD, extract (EPIDIOLEX) 100 mg/mL Solution Take 3.63 mLs by mouth 2 times daily. 3.6 ML BID (maintenance dose) 218 mL 3 ??? cholecalciferol, Vitamin D3, (VITAMIN D) 1,000 [...] If still not effective please call neurologist conference and event organiser. 1 kit 3 ??? midazolam, PF, (VERSED) 5 mg/mL Solution 5 mg by nasal route as needed (seizure clusters). Using atomizer, administer 2.5 mg (0.5ml) into nasal passage, then repeat with other side. 20 mL 3 ??? PHENobarbital (LUMINAL) 60 mg Tablet Take 2 tablets by mouth nightly. 360 tablet 1 ??? rufinamide (BANZEL) 400 mg Tablet Take 3 tablets by mouth 3 times daily. Reduce by 1 tablet perweek starting 03/25/16 270 tablet 5 ??? sertraline (ZOLOFT) 100 mg Tablet Take 1 tablet by mouth daily. 01/28/2019: Takes at night 90 tablet 0 ??? OXcarbazepine (TRILEPTAL) 600 mg Tablet Take 1 tablet by mouth 3 times daily. BRAND NAME ONLY. 90 tablet 5 ??? LORazepam (ATIVAN) 1 mg Tablet Take 1-2 tablets at onset of seizure symptoms, if ineffective after 30 minutes may repeat dose. If still not effective please call neurologist conference and event organiser. Max 4mg daily. Take 0.5-1mg prior to seizure triggering activity. 45 tablet 3 ??? acetaminophen (TYLENOL) 500 mg Tablet Take 500 mg by mouth 2 times daily. ??? QUEtiapine (SEROQUEL) 50 mg Tablet Take 25 mg by mouth nightly. 01/28/2019: Takes one-half of 25mg tablet nightly (12.5mg nightly) ??? melatonin 3 mg Tablet Take 6 mg by mouth nightly. ??? furosemide (LASIX) 20 mg Tablet Take 20 mg by mouth daily. 01/28/2019: Not always needed daily ??? loratadine (CLARITIN) 10 mg Tablet Take [...] tablet Take 40 mg by mouth daily. ??? cannabidiol, CBD, extract (EPIDIOLEX) 100 mg/mL Solution Take 1.82 mLs by mouth See Admin Instructions. Week 1 - 1.8 ml BID; Week 2 & thereafter - 3.6 ml BID (Patient not taking: Reported on 02/18/2019) 178 mL 0 No current facility-administered medications for this visit. Most Recent Vitals: Ht Readings from Last 1 Encounters: 11/20/18 149.9 cm (4' 11) Wt Readings from Last 3 Encounters: 11/20/18 72.6 kg (160 lb) 05/15/18 68 kg (150 lb) 03/23/18 68 kg (150 lb) Temp Readings from Last 3 Encounters: 09/27/17 36.9 ??C (98.4 ??F) 07/13/16 36.5 ??C (97.7 ??F) (Axillary) 11/24/14 36.8 ??C (98.2 ??F) (Axillary) BP Readings from Last 3 Encounters: 11/20/18 117/67 05/15/18 113/64 03/23/18 110/61 Pulse Readings from Last 3 Encounters: 11/20/18 94 05/15/18 79 03/23/18 79 Pertinent Lab values: Lab Results Component Value Date NA 140 11/20/2018 K 3.6 11/20/2018 CL 97 (L) 11/20/2018 CO2 32 (H) 11/20/2018 BUN 11 11/20/2018 CREATININE 0.47 (L) 11/20/2018 GLUCOSE 133 11/20/2018 CALCIUM 9.3 11/20/2018 Lab Results Component Value Date ALT 23 11/20/2018 AST 16 11/20/2018 ALKPHOS 117 (H) 11/20/2018 BILITOT 0.2 11/20/2018 BILIDIR 0.1 07/10/2016 ALBUMIN 4.1 11/20/2018 PROT 7.4 11/20/2018 Lab Results Component Value Date WBC 8.7 11/20/2018 HGB 13.9 11/20/2018 HCT 43.6 11/20/2018 MCV 89.9 11/20/2018 PLATELET 245 11/20/2018 No results found for: HA1C Immunization History Administered Date(s) Administered ??? Influenza PF, Split 06/22/2015 Assessment and Recommendations: Title Type of Medication Management: chronic disease management, targeted medication review Referred By: provider Recipient: caregiver Provider: plan sponsor pharmacist Method of Contact: by telephone Cognitive Ability: good Patient Counseling Counseled the patient on the following: doses and administration discussed, safe handling, storage, and disposal discussed, possible adverse effects and management discussed, possible drug and prescription drug interactions discussed, possible drug and OTC drug and food interactions discussed, lab monitoring and follow-up discussed, therapeutic rationale discussed, cost of medications and cost implications discussed, adherence and missed doses discussed, pharmacy contact information discussed Drug Medication Management Summary Topics discussed: doses and administration discussed, safe handling, storage, and disposal discussed, possible adverse effects and management discussed, possible drug and prescription drug interactions discussed, possible drug and OTC drug and food interactions discussed, lab monitoring and follow-up discussed, therapeutic rationale discussed, cost of medications and cost implications discussed, adherence and missed doses discussed, pharmacy contact information discussed Number of adverse drug events identified: 0 Time spent: 16-30 min Treatment Outcomes 02/18/2019 Disease progression: Stable Patient Overall Status: Stable [...] frequency and method Handling, storage, and disposal of the medication Relevant lab data Patient verbalizes understanding and is able to read-back instructions on self-administration/injection, proper storage, drug stability, importance of adherence and management strategies, side effectavoidance and mitigation strategies, and interruptions in therapy: Yes Economic Assessment: Patient is agreeable to medication copay: yes Copay Amount: 0 Day Supply: 30 Date Needed: 02/27/19 Copay assistance required: no Physical Assessment: Functional limitations identified: yes - pt in w/c but has caregiver Cognitive limitations identified: yes - cognitive deficits noted Concern regarding orientation/memory: yes - however, less important in context of having caregiver Concern with reasoning/judgement: yes - however less important in context of having caregiver Is patient a fall risk: yes - however pt uses w/c and if not, has multiple aids Other needed information: no Social Assessment: Does the patient have a primary professional healthcare representative? yes - Kim Patient has emergency contact on file: Yes Does patient need referral to socially responsible investment adviser: No Does patient need referral to advocacy group: No Physical and Home Health Assessment: Is the patient able to store their medication as directed? Yes Is the patient in a safe home environment? Yes Do you have a support network? Yes Reviewed potential home safety hazards: Yes Therapy Assessment: Appropriate Therapy: Yes Current Medication Dosing/Route/Frequency: Take 3.6 ml by mouth two times a day Effective: TBD Patient experienced change in condition that affects treatment: no Are you experiencing any side effects from your medication? no Patient Goals: Goals ??? DH Home Medication Compliance and Understanding Patient's specific desired goal: reduce number of seizures, with secondary goal of being able to taper some of the other AEDs being used Measured by: seizure record, side effects exhibited Time-frame to meet goal: 3-6 months Is the patient on track to achieve goals of therapy? Yes, in context of good adherence and lack of side effects Additional care/services needed: no Educational information or adherence tools provided: Yes Additional equipment/supplies required: no Care Plan Reviewed and Approved by both Pharmacist and Patient: yes Did Care Plan Change? No Informed patient of specialty pharmacy services: Yes -Patient will be provided with welcome packet: Yes Date provided: 01/29/19 Delivery Method: POS -Patient will be provided with Rights & Responsibilities: Yes Date provided: 01/29/19 Delivery Method: POS -Patient is aware a licensed pharmacist is available 24 hours a day, 7 days a week to discuss medication-related questions or concerns: Yes -Patient verbalizes understanding of education on the common side effect profile of the medication:Yes -The patient is able to call 911 or seek urgent care if signs/symptoms of allergy or harmful adverse reactions occur: Yes Patient Satisfaction with Therapy: yes - although benefit not yet clear Patient understands no changes to current drug regimen were made at the appointment and that [facility] is[facility] recommendations (summary located at top of note) for provider review and follow up. Arnel Benitez RPH 02/18/19 9:45 AM documented in this encounter Plan of Treatment Upcoming Encounters Date Type Department Care Team (Late st Contact Info) Description 08/06/2024 11:00 AM EST Office [place] [address] Sarah Serra [facility] [place] [address] documented as of this encounter Goals Goal Patient Goal Type Associated Problems Recent Progress Patient-Stated? Author [facility] Medication Compliance and Understanding Patient Facing Action Plan On track( 024 12:05 PM EDT) No Arnel Benitez [facility] Note: Patient's specific desired goal: reduce number of seizures, with secondary goal of being able to taper some of the other AEDs being used Measured by: seizure record, side effects exhibited Time-frame to meet goal: 3-6 months documented as of this encounter Visit Diagnoses Diagnosis Medication management Encounter for long-term (current) use of other medications documented in this encounter Care Teams Roof Truss Builder Relationship Specialty Start Date End Date Luis Manuel Blanca MD [address] [place] [address] [address] [place] [address] PCP - General Family Medicine 06/24/16 documented as of this encounter
--- OUTSIDE RECORDS SUMMARY | 2024-06-28 22:01 | XMS_ITS | Encounter Summary ---
[place] [address] Care Team Providers Care Project Scientist Name Role Phone Luis Manuel Blanca MD Primary Care Provider [phone] Encounter Details Date Type Department Care Team (Late st Contact Info) Description 03/21/2019 Tele[place] [address] Sarah Serra APRN [facility] [place] [address] Social History Tobacco Use Types Packs/Day Years [...] Telephone Encounter - Lili Otero RN - 03/22/2019 8:49 AM EDT 03/22/19 0848 Spoke to patient's caregiver (Lulu). Reported that patient's seizure seems to be abit different in presentation. Her last seizure was on 03/11, patient started to freeze, unable to move and then went to be a grand mal seizure. Lasted for over 1 minute. Ativan was given. Then was able to get out of it quick. Then had another seizure after 1 hour. Diastat was given. No other seizures noted. Lulu seems to feel that her seizures are better since starting Epidiolex. It's less in intensity and duration. February's AED levels and LFT result discussed (WNL). Advised that patient is due for another AED levels and LFT end of April. Lab orders mailed to Lulu. Patient/caller advised to call for any other concerns. Patient/caller in agreement and verbalized understanding of the plan. * Telephone Encounter - Lili Otero RN - 03/21/2019 1:12 PM EDT Call placed to patient/caller. LVM. Advised to call back regarding recent seizures. documented in this encounter Plan of Treatment Upcoming Encounters Date Type Department Care Team (Late st Contact Info) Description 08/06/2024 11:00 AM EST Office [place] [address] Sarah Serra APRN [facility] [place] [address] documented as of this encounter Goals Goal Patient Goal Type Associated Problems Recent Progress Patient-Stated? Author [facility] Medication Compliance and Understanding Patient Facing [...] as of this encounter Visit Diagnoses Diagnosis Seizures- Primary Other convulsions documented in this encounter Care Teams Project Scientist Relationship Specialty Start Date End Date Luis Manuel Blanca MD [address] [place] [address] [address] [place] [address] PCP - General Family Medicine 06/24/16 documented as of this encounter
--- OUTSIDE RECORDS SUMMARY | 2024-06-28 22:01 | XMS_ITS | Encounter Summary ---
[place] [address] Care Team Providers Care Excel Vba Developer Name Role Phone Luis Manuel Blanca MD Primary Care Provider [phone] Reason for Visit * Reason Comments Medication Management Patient Education Encounter Details Date Type Department Care Team (Late st Contact Info) Description 03/06/2020 Specialty Pharmacy [place] [id number] Bj Heck [facility] Social History [...] this encounter Progress Notes * Bj Heck [facility] - 03/06/2020 11:02 AM EDT Clinical Management Plan: Refill Specialty Pharmacy Consultation; Bj Heck [facility] Comprehensive Medication Management (CMM) Cinthya Ed [...] And Vomiting Medication Reconciliation Discrepancies (compared to [facility] med list) -None New medications: no New [...] made at the appointment and that [facility] is providing recommendations (summary located at top of note) for provider review and follow up. Bj Heck RPH 03/06/20 11:03 AM documented in this encounter Plan of Treatment Upcoming Encounters Date Type Department Care Team (Late st Contact Info) Description 08/06/2024 11:00 AM EST Office [place] [address] Sarah Serra APRN [facility] [place] [address] documented as of this encounter Goals Goal Patient Goal Type Associated Problems Recent Progress Patient-Stated? Author [facility] Medication Compliance and Understanding Patient Facing [...] on filedocumented in this encounter Care Teams Excel Vba Developer Relationship Specialty Start Date End Date Luis Manuel Blanca MD [address] [place] [address] PCP - General Family Medicine 06/24/16 documented as of this encounter
--- OUTSIDE RECORDS SUMMARY | 2024-06-28 22:01 | XMS_ITS | Encounter Summary ---
[place] [address] Care Team Providers Care Fagoting Machine Operator Name Role Phone Luis Manuel Blanca MD Primary Care Provider [phone] Reason for Visit * Reason Onset Date Comments Medication Refill 04/22/2020 Encounter Details Date Type Department Care Team (Late st Contact Info) Description 04/22/2020 [place] [address] Sarah Serra APRN [facility] [place] [address] Social History Tobacco Use Types Packs/Day Years [...] Telephone Encounter - Lili Otero RN - 04/22/2020 4:16 PM EDT Spoke to patient's caregiver. Requesting to send Onfi generic rx while waiting for PA approval for the brand name. Prescription request sent to Sarah Serra APRN for approval. documented in this encounter Plan of Treatment Upcoming Encounters Date Type Department Care Team (Late st Contact Info) Description 08/06/2024 11:00 AM EST [place] [address] Sarah Serra APRN [facility] [place] [address] documented as of this encounter Goals Goal Patient Goal Type Associated Problems Recent Progress Patient-Stated? Author [facility] Medication Compliance and Understanding Patient Facing Action Plan On track( 024 12:05 PM EDT) Arnel Hurd, [facility] Note: Patient's specific desired goal: reduce number of seizures, with secondary goal of being able to taper some of the other AEDs being used Measured by: seizure record, side effects exhibited Time-frame to meet goal: 3-6 months documented as of this encounter Visit Diagnoses Not on filedocumented in this encounter Care Teams Fagoting Machine Operator Relationship Specialty Start Date End Date Luis Manuel Blanca MD [address] [place] [address] PCP - General Family Medicine 06/24/16 documented as of this encounter
--- OUTSIDE RECORDS SUMMARY | 2024-06-28 22:01 | XMS_ITS | Encounter Summary ---
[place] [address] Care Team Providers Care Field Geologist Name Role Phone Luis Manuel Blanca MD Primary Care Provider [phone] Encounter Details Date Type Department Care Team (Late st Contact Info) Description 11/25/2019 [place] [address] Sarah Serra APRN [facility] [place] [address] Social History Tobacco Use Types Packs/Day Years [...] Telephone Encounter - Tiff Gramajo RN - 11/25/2019 11:25 AM EDT Spoke with the patient's caregiver by phone to review medications and allergies prior to upcoming tele- appointment scheduled with Neurology provider. documented in this encounter Plan of Treatment Upcoming Encounters Date Type Department Care Team (Late st Contact Info) Description 08/06/2024 11:00 AM EST [place] [address] Sarah Serra APRN [facility] [address] documented as of this encounter Goals Goal Patient Goal Type Associated Problems Recent Progress Patient-Stated? Author Home Medication Compliance and Understanding Patient Facing Action Plan On track( 024 12:05 PM EDT) Arnel Hurd, [facility] Note: Patient's specific desired goal: reduce number of seizures, with secondary goal of being able to taper some of the other AEDs being used Measured by: seizure record, side effects exhibited Time-frame to meet goal: 3-6 months documented as of this encounter Visit Diagnoses Not on filedocumented in this encounter Care Teams Field Geologist Relationship Specialty Start Date End Date Luis Manuel Blanca MD [address] [place] [address] PCP - General Family Medicine 06/24/16 documented as of this encounter
--- OUTSIDE RECORDS SUMMARY | 2024-06-28 22:01 | XMS_ITS | Encounter Summary ---
[place] [address] Care Team Providers Care Wharf Tender Helper Name Role Phone Luis Manuel Blanca MD Primary Care Provider [phone] [phone] Reason for Visit * Reason Comments Medication Management Patient Education Encounter Details Date Type Department Care Team (Late st Contact Info) Description 07/24/2019 Specialty [place] [id number] Bj Heck [facility] [...] encounter Progress Notes * Bj Heck [facility] - 07/24/2019 10:43 AM EST Clinical Management Plan: Refill Specialty Pharmacy Consultation; Bj Heck [facility] Comprehensive Medication Management (CMM) Cinthya Ed Kevin Ms. Cinthya Brown is a 58 y.o. [...] plan sponsor pharmacist [facility] Method of Contact: by telephone Cognitive Ability: good Allergies and Drug intolerance: Allergies Allergen Reactions ??? Amoxicillin-Pot Clavulanate Rash ??? Risedronate Sodium Nausea And Vomiting Medication Reconciliation Discrepancies (compared to [facility] med list) -none New medications: no [...] were made at the appointment and that [facility] is providing recommendations (summary located at top of note) for provider review and follow up. Bj Heck RPH 07/24/19 10:44 AM documented in this encounter Plan of Treatment Upcoming Encounters Date Type Department Care Team (Late st Contact Info) Description 08/06/2024 11:00 AM EST [place] [address] Sarah Serra APRN [facility] [place] [address] documented as of this encounter Goals Goal [...] on filedocumented in this encounter Care Teams Wharf Tender Helper Relationship Specialty Start Date End Date Luis Manuel Blanca MD [address] [place] [address] PCP - General Family Medicine 06/24/16 documented as of this encounter
--- OUTSIDE RECORDS SUMMARY | 2024-06-28 22:01 | XMS_ITS | Encounter Summary ---
Author Organization [facility] [place] [address] Care Team Providers Care Automotive Lube Technician Name Role Phone Luis Manuel Blanca MD Primary Care Provider [phone] [phone] Encounter Details Date Type Department Care Team (Late st Contact Info) Description 10/22/2019 [place] [address] Sarah Serra POULTRY FARM WORKER [facility] [place] [address] Social History Tobacco Use Types Packs/Day Years [...] Telephone Encounter - Lili Otero RN - 10/22/2019 10:32 AM EDT Spoke to patient's caregiver. Made aware that per Sarah Serra POULTRY FARM WORKER: Her trileptal level is much higher, her sodium is a little better. How is she, I think maybe we should cut the midday trileptal to 300mg and see what happens. If her seizures worsen we will reassess. Patient/caller advised to call for any other concerns. Patient/caller in agreement and verbalized understanding of the plan. documented in this encounter Plan of Treatment Upcoming Encounters Date Type Department Care Team (Late st Contact Info) Description 08/06/2024 11:00 AM EST [place] [address] [facility] [place] [address] documented as of this encounter Goals Goal Patient Goal Type Associated Problems Recent Progress Patient-Stated? Author [facility] Medication Compliance and Understanding Patient Facing Action Plan On track( 024 12:05 PM EDT) No Arnel Benitez, [facility] [...] Blanca MD [address] [place] [address] PCP - General Family Medicine 06/24/16 documented as of this encounter
--- OUTSIDE RECORDS SUMMARY | 2024-06-28 22:01 | XMS_ITS | Encounter Summary ---
[place] [address] Care Team Providers Care Police Worker Name Role Phone Luis Manuel Blanca MD Primary Care Provider [phone] [phone] Reason for Visit * Reason Comments Medication Management Encounter Details Date Type Department Care Team (Late st Contact Info) Description 06/27/2019 Specialty [place] [address] Arnel Benitez [facility] Social History Tobacco Use [...] this encounter Progress Notes * Arnel Benitez [facility] - 06/27/2019 10:41 AM EST Clinical Management Plan: Refill Specialty Pharmacy Consultation; Arnel Benitez [facility] Comprehensive Medication Management (CMM) Cinthya Brown is a 58 y.o. (1960) female who was contacted in regard to a specialty medication refill reminder. Spoke with caregiver (Lulu) regarding EPIDIOLEX. A review of the medication therapy was performed. The medication was refilled as scheduled, and all medication related questions and concerns were addressed. The specialty pharmacy staff will follow up with the patient 5-7 days prior to next refill. Was a change made to the Care Plan: yes - dose reduced from 5.1ml to 3.6ml (bid) 2nd to lethargy If yes, should the medication be held: No - dose reduced with problem resolved Assessment and Recommendations: Title Type of Medication Management: chronic disease management, targeted medication review Referred By: provider Recipient: caregiver Provider: plan sponsor pharmacist Method of Contact: by telephone Cognitive Ability: good Allergies and Drug intolerance: Allergies Allergen Reactions ??? Amoxicillin-Pot Clavulanate Rash ??? Risedronate Sodium Nausea And Vomiting Medication Reconciliation Discrepancies (compared to [facility] med list) - none New medications: no [...] review and follow up. Arnel Benitez RPH 06/27/19 10:42 AM documented in this encounter Plan of Treatment Upcoming Encounters Date Type Department Care Team (Late st Contact Info) Description 08/06/2024 11:00 AM EST [place] [address] Sarah Serra APRN [facility] [place] [address] documented as of this encounter Goals Goal Patient Goal Type Associated Problems Recent Progress Patient-Stated? Author [facility] Medication Compliance and Understanding Patient Facing [...] on filedocumented in this encounter Care Teams Police Worker Relationship Specialty Start Date End Date Luis Manuel Blanca MD [address] [place] [address] [address] [facility] [address] [place] [address] PCP - General Family Medicine 06/24/16 documented as of this encounter
--- OUTSIDE RECORDS SUMMARY | 2024-06-28 22:01 | XMS_ITS | Encounter Summary ---
[place] [address] Care Team Providers Care Resource Room Teacher Name Role Phone Luis Manuel Blanca MD Primary Care Provider [phone] [phone] Reason for Visit * Reason Comments Medication Refill Encounter Details Date Type Department Care Team (Late st Contact Info) Description 07/09/2019 Ref[place] [address] Sarah Serra WING COVERER [facility] [place] [address] Social History Tobacco Use Types Packs/Day Years [...] 11:00 AM EST Office [place] [address] Sarah Serra APRN [facility] [place] [address] documented as of this encounter Goals Goal Patient Goal Type Associated Problems Recent Progress Patient-Stated? Author [facility] Medication Compliance and Understanding Patient Facing Action Plan On track( 024 12:05 PM EDT) Arnel Hurd, [facility] Note: Patient's specific desired goal: reduce number of seizures, with secondary goal of being able to taper some of the other AEDs being used Measured by: seizure record, side effects exhibited Time-frame to meet goal: 3-6 months documented as of this encounter Visit Diagnoses Not on filedocumented in this encounter Care Teams Resource Room Teacher Relationship Specialty Start Date End Date Luis Manuel Blanca MD [address] [facility] [address] [place] [address] PCP - General Family Medicine 06/24/16 documented as of this encounter
--- OUTSIDE RECORDS SUMMARY | 2024-06-28 22:01 | XMS_ITS | Encounter Summary ---
[place] [address] Care Team Providers Care Director Internal Control Name Role Phone Luis Manuel Blanca MD Primary Care Provider [phone] [phone] Encounter Details Date Type Department Care Team (Late st Contact Info) Description 02/18/2019 Telephone [place] [address] Sarah Serra APRN [facility] [place] [address] Social History Tobacco Use Types Packs/Day Years [...] Telephone Encounter - Lili Otero RN - 02/18/2019 12:31 PM EDT Spoke to Lulu (patient's caregiver). Reported that no other seizure activity since 02/05/19. Reported that patient will usually have 1 per week seizure. Made aware that patient is due for repeat labs on 03/01/19. Advised to continue to keep track of seizure activity and call for any other seizure activity. Patient/caller advised to call for any other concerns. Patient/caller in agreement and verbalized understanding of the plan. documented in this encounter Plan of Treatment Upcoming Encounters Date Type Department Care Team (Late st Contact Info) Description 08/06/2024 11:00 AM EST Office [place] [address] Sarah Serra APRN [facility] [place] [address] documented as of this encounter Goals Goal [...] epilepsy documented in this encounter Care Teams Director Internal Control Relationship Specialty Start Date End Date Luis Manuel Blanca MD [address] [place] [address] PCP - General Family Medicine 06/24/16 documented as of this encounter
--- OUTSIDE RECORDS SUMMARY | 2024-06-28 22:01 | XMS_ITS | Encounter Summary ---
[place] [address] Care Team Providers Care Extractor Operator Name Role Phone Luis Manuel Blanca MD Primary Care Provider [phone] [phone] Reason for Referral * Consultation (Routine) - Specialty Diagnoses / Procedures Referred By Contac t Referred To Contact Dermatology Diagnoses Rash Sarah Serra APRN [facility] [place] [address] [facility] [address] [place] [address] Referral ID Status Reason Start Date Expiration Date V isits Requested Visits Authorized [id number] Consult, Test & Treat 05/21/2019 05/20/2020 1 1 Encounter Details Date Type Department Care Team (Late st Contact Info) Description 05/21/2019 11:00 AM EDT [place] [address] [address] Serra [address]N [facility] [place] [address] Rash; High risk medication use; Epilepsy seizure, generalized, convulsive Social History Tobacco [...] Sign Reading Time Taken Comments Blood Pressure 126/56 05/21/2019 11:00 AM EDT Pulse 78 05/21/2019 11:00 AM EDT Temperature - - Respiratory Rate - - Oxygen Saturation - - Inhaled Oxygen Concentration - - Weight 68 kg (150 lb) 05/21/2019 11:00 AM EDT Reported - Wheelchair Height 147.3 cm (4' 10) 05/21/2019 11: 00 AM EDT Reported Body Mass Index 31.35 05/21/2019 11:00 AM EDT documented in this encounter Progress Notes * Sarah Serra, BILL RECAPITULATION CLERK - 05/21/2019 11:00 AM EDT Subjective: [facility] OUTPATIENT FOLLOW UP NOTE Patient Active Problem List [...] past month: 0 Were seizures disabling? No Cinthya is doing much better overall on the epidiolex, overall more alert and has even begun walking with PT. Howvere some days she is extremely fatigued, drooling more, does not engage even with her favorite things, basically slept through the entire fair which is one of her favorite things in the world and its only once a year. She will also have behavioral issues on these days. It is almost likewhen she is overtired she begins to act out. On these days ativan isn't as effective as usual, thisis one of those days. Still they think overall she is doing much better on it. Social History: Social History Socioeconomic History ??? Marital status: Single Spouse name: Not on file ??? Number of children: Not on file ??? Years of education: Not on file ??? Highest education level: Not on file Occupational History ??? Not on file Social Needs ??? Financial resource strain: Not on file ??? Food insecurity: Worry: Not on file Inability: Not on file ??? Transportation needs: Medical: Not on file Non-medical: Not on file Tobacco Use ??? Smoking status: Never Smoker ??? Smokeless tobacco: Never Used Substance and Sexual Activity ??? Alcohol use: No ??? Drug use: Yes Comment: Hemp Oil ??? Sexual activity: Not on file Comment: deferred Lifestyle ??? Physical activity: Days per week: Not on file Minutes per session: Not on file ??? Stress: Not on file Relationships ??? Social connections: Talks on phone: Not on file Gets together: Not on file Attends taoist service: Not on file Active member of club or organization: Not on file Attends meetings of clubs or organizations: Not on file Relationship status: Not on file ??? Intimate partner violence: Fear of current or ex partner: Not on file Emotionally abused: Not on file Physically abused: Not on file Forced sexual activity: Not on file Other Topics Concern ??? Not on file Social History Narrative ??? Not on file Social Factors: QEPILEPSY SOCIAL FACTORS 05/23/19 Employment status: No Currently driving: No Considering No Past Medical History: Diagnosis Date ??? Hyperlipidemia ??? MR (mental retardation) ??? RIA (obstructive sleep apnea) ??? Seizures Current Outpatient Medications on File Prior to Visit Medication Sig Dispense Refill ??? clotrimazole-betamethasone (LOTRISONE) 1-0.05 % Cream Apply 1 Application topically as needed. 0 ??? NYSTOP Powder Apply 1 Application topically as needed. 0 ??? cholecalciferol, Vitamin D3, (VITAMIN D) 1,000 [...] If still not effective please call neurologist pinion and wheel truer. 1 kit 3 ??? midazolam, PF, (VERSED) [...] perweek starting 03/25/16 270 tablet 5 ??? OXcarbazepine (TRILEPTAL) 600 mg Tablet Take 1 tablet by mouth 3 times daily. BRAND NAME ONLY. 90 tablet 5 ??? acetaminophen (TYLENOL) 500 mg Tablet Take 500 mg by mouth 2 times daily. ??? melatonin 3 mg Tablet Take 6 [...] Take 40 mg by mouth daily. ??? sertraline (ZOLOFT) 100 mg Tablet Take 1 tablet by mouth daily. 90 tablet 0 ??? QUEtiapine (SEROQUEL) 50 mg Tablet Take 25 mg by mouth nightly. ??? furosemide (LASIX) 20 mg Tablet Take 20 mg by mouth daily. No current facility-administered medications on file prior to visit. Allergies Allergen Reactions ??? Amoxicillin-Pot Clavulanate Rash ??? Risedronate Sodium Nausea And Vomiting Objective: Physical Exam: Vitals: Temp: -- Heart Rate: -- Resp: -- BP: -- SpO2: -- Heart Rate from SpO2: -- Drowsy and intermittently over stimulated and demanding of examiners attention, cannot be redirected, then she falls alseep, drooling a lot, appears happy however, well dressed and groomed, intermittently says brief repetitive words of phrases, somewhat dysphasic, sitting in wheelchair, interactingwith caregiver and provider, can follow some simple commands but not others, comprehension limited,mood is good. Procedure: VNS not interrogated today Output current: 2.0 milliamps Signal frequency: 20 Hertz Pulse Width:500 microseconds On time:14 sec Off time:1.1 min Autostim activated current: 2.0 mA Autostim on time: 30 seconds. Autostim pulse width: 500 microseconds Magnet activated current: 2.25 mA Magnet on time: 30 seconds. Magnet pulse width: 500 microseconds Assessment and Plan: - Epilepsy: Increase epidiolex to 7.5 mg/kg/dose. Call if any symptoms worsen, monitor closely re:sedation. - Screen for medication toxicity: Reviewed labs, [...] seen again by the epilepsy team in 3-6 months. - Caregiver verbalizes understanding and agrees with plan. It was a pleasure seeing Cinthya in clinic today. Sarah Serra APRN [facility]psy [facility] Department of Neurology documented in this encounter Plan of Treatment Upcoming Encounters Date Type Department Care Team (Late st Contact Info) Description 08/06/2024 11:00 AM EST [place] [address] Sarah Serra [address]N [facility] [place] [address] Scheduled Referrals Name Type Priority Associated Diagnoses Order Schedule Referral to Dermatology Outpatient Referral Routine Rash Ordered: 05/21/2019 documented as of this encounter Goals Goal Patient Goal Type Associated Problems Recent Progress Patient-Stated? 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
--- OUTSIDE RECORDS SUMMARY | 2024-06-28 22:01 | XMS_ITS | Encounter Summary ---
[place] [address] Care Team Providers Care Temporary Staff Accountant Name Role Phone Luis Manuel Blanca MD Primary Care Provider [phone] [phone] Reason for Visit * Reason Onset Date Comments Other 02/28/2019 Encounter Details Date Type Department Care Team (Late st Contact Info) Description 02/28/2019 [place] [phone] Sarah Serra APRN [facility] [place] [address] Other Social History Tobacco Use Types Packs/Day [...] Telephone Encounter - Lili Otero RN - 02/28/2019 4:13 PM EDT Spoke to patient's caregiver. Made aware that lab orders are faxed to [facility]. It is not a fasting blood draw. But have the blood draw before that patient takes her morning AEDs. And give the AED meds after her blood draw. Patient/caller in agreement and verbalized understanding of the plan. * Telephone Encounter - Emelia Lopez - 02/28/2019 4:08 PM EDT Clinical [place] Message Caller: Lulu If not Pt / Relation to pt: Caregiver Call back Number: [phone] Reason for call: Blood labs Message/information for the nurse: The pt's caregiver called inquiring if the lab orders were sent to [facility], as she states she is supposed to have these labs done tomorrow. She is also inquiring if these labs are fasting or not. Disposition of Call ?? [place] Message Reason red arrow Message: Pt is to be having labs done tomorrow documented in this encounter Plan of Treatment Upcoming Encounters Date Type Department Care Team (Late st Contact Info) Description 08/06/2024 11:00 AM EST [place] [address] Sarah Serra APRN [facility] [place] [address] documented as of this encounter Goals Goal Patient Goal Type Associated Problems Recent Progress Patient-Stated? Author [facility] Medication Compliance and Understanding Patient [...] on filedocumented in this encounter Care Teams Temporary Staff Accountant Relationship Specialty Start Date End Date Luis Manuel Blanca MD [address] [place] [address] [address] [place] [address] PCP - General Family Medicine 06/24/16 documented as of this encounter
--- OUTSIDE RECORDS SUMMARY | 2024-06-28 22:01 | XMS_ITS | Encounter Summary ---
[place] [address] Care Team Providers Care Street Roller Engineer Name Role Phone Luis Manuel Blanca MD Primary Care Provider +1 [phone] Reason for Visit * Reason Onset Date Comments Prior Authorization 04/15/2020 Medication Refill 04/22/2020 Encounter Details Date Type Department Care Team (Late st Contact Info) Description 04/15/2020 [place] [address] Sarah Serra, [facility] [place] [address] Prior Authorization; Medication Refill Social History Tobacco Use Types [...] * Telephone Encounter - Alondra Gregory - 04/23/2020 11:47 AM EDTSummary: FAXED APPROVAL Images from the original note were not included. * Telephone Encounter - Alondra Gregory - 04/23/2020 11:46 AM EDTSummary: CMM APPROVAL Images from the original note were not included. ROLANDA MENDOZA Hou: AFYACMHM - PA * Telephone Encounter - Alondra Gregory - 04/22/2020 3:25 PM EDTSummary: CMM PA REQUEST Images from the original note were not included. * Telephone Encounter - Alondra Gregory - 04/22/2020 3:17 PM EDTSummary: TRIED WITH DIFFERENT ADDRESS Images from the original note were not included. * Telephone Encounter - Alondra Gregory - 04/22/2020 3:17 PM EDTSummary: FROM SCANNED DOCS Images from the original note were not included. * Telephone Encounter - Alondra Gregory - 04/22/2020 1:33 PM EDT Images from the original note were not included. * Telephone Encounter - Cierra Melchor - 04/21/2020 11:35 AM EDT Patient's caregiver, Lulu is calling the office back to find out the status of this prior auth for this medication. Lulu states she has been paying out of pocket for this medication till thisis sorted out. Would like a call back when this approved and sent in. * Telephone Encounter - Johanna Calles LNA - 04/20/2020 4:03 PM EDT Lulu, patients animal care attendant got a call from the insurance company who is requesting a new order from the provider specifying the name brand for the medication be on the order for the PA. Please call Lulu with any questions. * Telephone Encounter - Lili Otero RN - 04/20/2020 3:25 PM EDT 04/20/2020 Spoke to patient's caregiver (Lulu). Reports that the Onfi 20 mg brand name is still needing PA approval. Made aware that message will be to PA coordinator regarding this. Advised not to give the Onfi. Advised to pay out of pocket for Onfi brand name until we get the PA approval. Patient/caller in agreement and verbalized understanding of the plan. * Telephone Encounter - eDl Valentine - 04/20/2020 1:14 PM EDT Lulu, caregiver, stated as of Monday the name brand Onfi had not been approved by the insurance when she was at the pharmacy. Lulu stated she did by two pills but it was extremely expensive. Lulu also stated she does have some of this medication which is and is wondering if she should use it. Please call Lulu to discuss, * Telephone Encounter - Lili Otero RN - 04/17/2020 4:32 PM EDT Spoke to Lulu (patient's caregiver). Requesting for a Clobazam 20 mg rx and see if that will gothrough. Spoke to Mehreen Dixon. Onfi 20 mg rx went through. Lulu made aware. * Telephone Encounter - Mague Gordillo - 04/17/2020 3:43 PM EDT Lulu states that Rolanda will be out of medication as of tonight and the pharmacy told her the PAhas not gone thru. She is unsure what to do about the pt not having medication this weekend. Pleasecall Lulu at [phone]. * Telephone Encounter - Lili Otero RN - 04/16/2020 9:21 AM EDT Spoke to Mehreen Dixon. Reports that Clobazam is still being rejected by patient's primary insurance (Medicare Part D). And that it is requiring PA to be submitted to [employer] ( ). Patient's ID# - [id number]. Message forwarded to Alondra Gregory (PA Coordinator). * Telephone Encounter - Alondra Gregory - 04/15/2020 6:13 PM EDTSummary: FAXED RESPONSE FROM INSURANCE Images from the original note were not included. * Telephone Encounter - Alondra Gregory - 04/15/2020 2:45 PM EDTSummary: CMM PA REQUEST Images from the original note were not included. PT HAS BEEN ON WITH SUCCESS. A CHANGE IN MEDICATION COULD CAUSE A CHANGE IN PT'S CURRENT STABLE STATUS. * Telephone Encounter - Alondra Gregory - 04/15/2020 2:44 PM EDTSummary: GENERIC COVERED WITHOUT A PA Images from the original note were not included. * Telephone Encounter - Del Valentine Jesse - 04/15/2020 12:21 PM EDT Provider patient sees in Clinic: Sarah Serra Caller and relationship (if other than patient-full name): Pillo Lawson caregiver Call Back Number: [phone] or [phone] Ok to leave a message: yes Name of Medication requiring PA: cloBAZam (Onfi) 10 mg Tablet When will patient be out of medication: by Monday (Pharmacy Coverage Information can be found on the back of the patient's insurance card under pharmacy benefits. This information must be supplied in order for medication PA's to be processed. If thecaller does not have this information they must get the information and call back to the office) Pharmacy Benefits/Coverage Company: Medicare Pharmacy Benefits/Coverage ID #: [id number] Pharmacy Benefits/Coverage Company Phone Number: Pharmacy used by patient: [facility] location: [place], [place] For Clinic Patients BIN#: PCN#: Disposition of Call: Routine Message sent to the Nurse documented in this encounter Plan of Treatment Upcoming Encounters Date Type Department Care Team (Late st Contact Info) Description 08/06/2024 11:00 AM EST [place] [address] Sarah Serra, PERSONNEL ASSISTANT [facility] [place] [address] documented as of this encounter Goals Goal Patient Goal Type Associated Problems Recent Progress Patient-Stated? Author [facility] Medication Compliance and Understanding Patient Facing Action Plan On track( 024 12:05 PM EDT) No Arnel Benitez, [facility] Note: Patient's specific desired goal: reduce number of seizures, with secondary goal of being able to taper some of the other AEDs being used Measured by: seizure record, side effects exhibited Time-frame to meet goal: 3-6 months documented as of this encounter Visit Diagnoses Not on filedocumented in this encounter Care Teams Street Roller Engineer Relationship Specialty Start Date End Date Luis Manuel Blanca MD [address] [facility] [address] [place] [address] PCP - General Family Medicine 06/24/16 documented as of this encounter
--- OUTSIDE RECORDS SUMMARY | 2024-06-28 22:01 | XMS_ITS | Encounter Summary ---
[place] [address] Care Team Providers Care Sales Service Manager Name Role Phone Luis Manuel Blanca MD Primary Care Provider [phone] [phone] Encounter Details Date Type Department Care Team (Late st Contact Info) Description 05/15/2019 External [place] [address] Sarah Serra ELECTROLYSIS INVESTIGATOR [facility] [place] [address] Social History Tobacco Use Types Packs/Day Years [...] 11:00 AM EST [place] [address] Sarah Serra APRN [facility] [place] [address] documented as of this encounter Goals Goal [...] Procedure Name Priority Date/Time Associated Diagnosis Comments OXCARBAZEPINE METABOLITE (MHC) Routine 05/08/2019 documented in this encounter Results * Oxcarbazepine Metabolite (MHC) (05/08/2019) Oxcarbazep Met (Mhc) (DECEMBER) 28 3 - 35 Rufinamide Level (DECEMBER) 24.8 5 - 30 Clobazam (DECEMBER) 182 30 - 300 Blood specimen (specimen) 05/08/2019 Historical Provider LAB SEND OUT JIMENEZ MARCH documented in this encounter Visit Diagnoses Not on filedocumented in this encounter Care Teams Sales Service Manager Relationship Specialty Start Date End Date Luis Manuel Blanca MD [address] [place] [address] PCP - General Family Medicine 06/24/16 documented as of this encounter
--- OUTSIDE RECORDS SUMMARY | 2024-06-28 22:01 | XMS_ITS | Encounter Summary ---
[place] [address] Care Team Providers Care Flavoring Oil Filterer Name Role Phone Luis Manuel Blanca MD Primary Care Provider +1 -[phone] Reason for Visit * Reason Onset Date Comments Prior Authorization 04/18/2019 TRILEPTAL (B RAND) 600 mg #90 APPROVED 01/18/19-04/17/20 Encounter Details Date Type Department Care Team (Late st Contact Info) Description 04/18/2019 Telephone [place] [address] Sarah Serra COMPENSATOR [facility] [place] [address] Prior Authorization (TRILEPTAL (BRAND) 600 mg #90 APPROVED 01/18/19-04/17/20) Social History Tobacco Use Types Packs/Day Years [...] * Telephone Encounter - Alondra Gregory - 04/19/2019 9:30 AM EDT Images from the original note were not included. * Telephone Encounter - Alondra Gregory - 04/18/2019 2:21 PM EDT Images from the original note were not included. * Telephone Encounter - Alondra Gregory - 04/18/2019 10:13 AM EDT Images from the original note were not included. * Telephone Encounter - Emelia Lopez - 04/18/2019 9:00 AM EDT Clinical Airplane Engineer Call Caller: Fabiola If not Pt / Relation to pt: [employer] Call back number: [phone] Medication requiring PA: Trileptal 600mg Pharmacy Benefits/Coverage Company: [employer] Pharmacy Benefits/Coverage ID #: [id number] Pharmacy Benefits/Coverage Company Pharmacy used by patient: [facility] Pharmacy location: [place], [place] Disposition of Call: -Routine message to the nurse documented in this encounter Plan of Treatment Upcoming Encounters Date Type Department Care Team (Late st Contact Info) Description 08/06/2024 11:00 AM EST Office [place] [address] Sarah Serra APRN [facility] [place] [address] documented as of this encounter Goals Goal Patient Goal Type Associated Problems Recent Progress Patient-Stated? Author [facility] Medication Compliance and Understanding Patient [...] on filedocumented in this encounter Care Teams Flavoring Oil Filterer Relationship Specialty Start Date End Date Luis Manuel Blanca MD [address] [place] [address] PCP - General Family Medicine 06/24/16 documented as of this encounter
--- OUTSIDE RECORDS SUMMARY | 2024-06-28 22:01 | XMS_ITS | Encounter Summary ---
[place] [address] Care Team Providers Care Airport Skilled Maintenance Supervisor Name Role Phone Luis Manuel Blanca MD Primary Care Provider +1 [phone] Encounter Details Date Type Department Care Team (Late st Contact Info) Description 06/27/2019 [place] [address] Sarah Serra APRN [facility] [place] [address] Social History Tobacco Use Types Packs/Day Years [...] Telephone Encounter - Lili Otero RN - 06/27/2019 11:09 AM EST Spoke to patient's caregiver (Lulu). Reported that patient's drowsiness is a little better. Made aware that patient is due fir repeat labs by the end of July. Patient will be on the 6 month dahiana on Epidiolex. Patient/caller in agreement and verbalized understanding of the plan. Lab orders mailed. documented in this encounter Plan of Treatment Upcoming Encounters Date Type Department Care Team (Late st Contact Info) Description 08/06/2024 11:00 AM EST [place] [address] Sarah Serra APRN [facility] [place] [address] documented as of this encounter Goals Goal Patient Goal Type Associated Problems Recent Progress Patient-Stated? Author [facility] Medication Compliance and Understanding Patient Facing Action Plan On track( 024 12:05 PM EDT) Arnel Hurd, [facility] Note: Patient's specific desired [...] epilepsy documented in this encounter Care Teams Airport Skilled Maintenance Supervisor Relationship Specialty Start Date End Date Luis Manuel Blanca MD [address] [place] [address] PCP - General Family Medicine 06/24/16 documented as of this encounter
--- OUTSIDE RECORDS SUMMARY | 2024-06-28 22:01 | XMS_ITS | Encounter Summary ---
[place] [address] Care Team Providers Care Spectroscopist Name Role Phone Luis Manuel Blanca MD Primary Care Provider [phone] [phone] Reason for Visit * Reason Comments Medication Management Patient Education Encounter Details Date Type Department Care Team (Late st Contact Info) Description 12/25/2019 Specialty [place] [phone] Bj Heck [facility] Social History Tobacco Use Types [...] this encounter Progress Notes * Bj Heck [facility] - 12/25/2019 8:42 AM EDT Clinical Management Plan: Refill Specialty Pharmacy Consultation; Bj Heck [facility] Comprehensive Medication Management (CMM) Cinthya [...] caregiver Provider: plan sponsor pharmacist [facility] Method of Contact: by telephone Cognitive Ability: good Allergies and Drug intolerance: Allergies Allergen Reactions ??? Amoxicillin-Pot Clavulanate Rash ??? Risedronate Sodium Nausea And Vomiting Medication Reconciliation Discrepancies (compared to [facility] med list) -none New medications: no New [...] were made at the appointment and that [facility] is providing recommendations (summary located at top of note) for provider review and follow up. Bj Heck RPH 12/25/19 8:46 AM documented in this encounter Plan of Treatment Upcoming Encounters Date Type Department Care Team (Late st Contact Info) Description 08/06/2024 11:00 AM EST [place] [address] Sarah Serra APRN [facility] [place] [address] documented as of this encounter Goals Goal Patient Goal Type Associated Problems Recent Progress Patient-Stated? Author [facility] Medication Compliance and Understanding Patient Facing Action Plan On track( 024 12:05 PM EDT) No Arnel Benitez [facility] Note: Patient's specific desired goal: reduce number of seizures, with secondary goal of being able to taper some of the other AEDs being used Measured by: seizure record, side effects exhibited Time-frame to meet goal: 3-6 months documented as of this encounter Visit Diagnoses Not on filedocumented in this encounter Care Teams Spectroscopist Relationship Specialty Start Date End Date Luis Manuel Blanca MD [address] [place] [address] PCP - General Family Medicine 06/24/16 documented as of this encounter
--- OUTSIDE RECORDS SUMMARY | 2024-06-28 22:01 | XMS_ITS | Encounter Summary ---
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 Author [facility] Medication Compliance and Understanding Patient Facing Action Plan On track( 024 12:05 PM EDT) No Arnel Benitez, [facility] Note: Patient's specific desired goal: reduce number of seizures, with secondary goal of being able to taper some of the other AEDs being used Measured by: seizure record, side effects exhibited Time-frame to meet goal: 3-6 months documented as of this encounter Visit Diagnoses Diagnosis Intractable [place]-Gast[place] syndrome without status epilepticus documented in this encounter Care Teams Admin Asst Relationship Specialty Start Date End Date Luis Manuel Blanca MD [address] [facility] [place] [address] PCP - General Family Medicine 06/24/16 documented as of this encounter
--- OUTSIDE RECORDS SUMMARY | 2024-06-28 22:01 | XMS_ITS | Encounter Summary ---
[place] [address] Care Team Providers Care Quarter Folder Name Role Phone Luis Manuel Blanca MD Primary Care Provider +1 [phone] Encounter Details Date Type Department Care Team (Late st Contact Info) Description 02/11/2020 [place] [address] Sarah Serra APRN [facility] [place] [address] Social History Tobacco Use Types Packs/Day Years [...] * Telephone Encounter - Fifi Mendoza - 02/11/2020 12:03 PM EDT Calling to schedule 6 mo judith perera/ Maryse around 05/27/20. documented in this encounter Plan of Treatment Upcoming Encounters Date Type Department Care Team (Late st Contact Info) Description 08/06/2024 11:00 AM EST [place] [address] Sarah Serra APRN [facility] [place] [address] documented as of this encounter Goals Goal Patient Goal Type Associated Problems Recent Progress Patient-Stated? Author [facility] Medication Compliance and Understanding Patient Facing [...] on filedocumented in this encounter Care Teams Quarter Folder Relationship Specialty Start Date End Date Luis Manuel Blanca MD [facility] [address] [facility] [place] [address] PCP - General Family Medicine 06/24/16 documented as of this encounter
--- OUTSIDE RECORDS SUMMARY | 2024-06-28 22:01 | XMS_ITS | Encounter Summary ---
[place] [address] Care Team Providers Care Construction Grip Name Role Phone Luis Manuel Blanca MD Primary Care Provider [phone] -[phone] Encounter Details Date Type Department Care Team (Late st Contact Info) Description 01/31/2020 [place] [address] Archie Crocker CPHT Social History Tobacco Use Types Packs/Day [...] encounter Miscellaneous Notes * Telephone Encounter - Archie Crocker - 01/31/2020 3:10 PM EDT Clinical Management Plan: Refill Specialty Pharmacy Consultation; Archie Crocker Comprehensive Medication Management (CMM) Cinthya Ward Nybrianna Ms. Cinthya Brown is a 59 y.o. (1960) female who was contacted in regard to a specialty medication refill reminder. Spoke with caregiver. Caregiver name: Lulu regarding Epidiolex. [...] Vomiting Medication Reconciliation Discrepancies (compared to [facility] med list) No New medications: No New medical conditions: No New allergies: No Adherence: Any missed doses? No Are you experiencing any side effects from your medications? No Patient understands no changes to current drug regimen were made.. Archie Crocker 01/31/20 3:10 PM documented in this encounter Plan of Treatment Upcoming Encounters Date Type Department Care Team (Late st Contact Info) Description 08/06/2024 11:00 AM EST Office [place] [address] Sarah Serra RIVET STICKER [facility] [place] [address] documented as of this encounter Goals Goal Patient Goal Type Associated Problems Recent Progress Patient-Stated? Author [facility] Medication Compliance and Understanding Patient Facing Action Plan On track( 024 12:05 PM EDT) Arnel Hurd, [facility] Note: Patient's specific desired goal: reduce number of seizures, with secondary goal of being able to taper some of the other AEDs being used Measured by: seizure record, side effects exhibited Time-frame to meet goal: 3-6 months documented as of this encounter Visit Diagnoses Not on filedocumented in this encounter Care Teams Construction Grip Relationship Specialty Start Date End Date Luis Manuel Blanca MD [address] [place] [address] [address] [facility] [address] [place] [address] PCP - General Family Medicine 06/24/16 documented as of this encounter
--- OUTSIDE RECORDS SUMMARY | 2024-06-28 22:01 | XMS_ITS | Encounter Summary ---
[place] [address] Care Team Providers Care Mechanical Drafter Name Role Phone Luis Manuel Blanca MD Primary Care Provider +1 [phone] Reason for Visit * Reason Onset Date Comments Prior Authorization 04/22/2020 Encounter Details Date Type Department Care Team (Late st Contact Info) Description 04/22/2020 Telephone [place] [address] Sarah Serra APRN [facility] [place] [address] Prior Authorization Social History Tobacco Use Types [...] Telephone Encounter - Lili Otero RN - 04/24/2020 8:24 AM EDT 04/24/2020 0820 Spoke to patient's caregiver (Lulu). Made aware that Onfi 20 mg brand name PA has been approved. Verbalized understanding. Very grateful for this. * Telephone Encounter - Alondra Gregory - 04/22/2020 3:36 PM EDT PA IS IN PROCESS - SEE 04/17 PA PHONE NOTE. * Telephone Encounter - Mague Gordillo - 04/22/2020 2:14 PM EDT Call Center / [place] Message - General Issue Call Provider patient sees in Clinic: Maryse Caller and relationship (if other than patient-full name): Lulu Samaniego Call back number: [phone] Ok to leave a message: y Reason for call: Following up on PA for Onfi 20 mg to be brand name only per notes on encounter dated 04/15/20. Please call with an update, states the out of pocket cost is about $50 a day right now. Disposition of Call (choose one and remove others): ??? Red Arrow Message Reason red arrow Message: n ??? Routine Message sent to the Nurse: y ??? Routine message sent to [place]: n documented in this encounter Plan of Treatment Upcoming Encounters Date Type Department Care Team (Late st Contact Info) Description 08/06/2024 11:00 AM EST Office [place] [address] Sarah Serra APRN [facility] [place] [address] documented as of this encounter Goals Goal [...] on filedocumented in this encounter Care Teams Mechanical Drafter Relationship Specialty Start Date End Date Luis Manuel Blanca MD [address] [place] [address] PCP - General Family Medicine 06/24/16 documented as of this encounter
--- OUTSIDE RECORDS SUMMARY | 2024-06-28 22:01 | XMS_ITS | Encounter Summary ---
[place] [address] Care Team Providers Care Hot Knife Foxing Cutter Name Role Phone Luis Manuel Blanca MD Primary Care Provider [phone] [phone] Reason for Visit * Reason Onset Date Comments Other 09/06/2019 Encounter Details Date Type Department Care Team (Late st Contact Info) Description 09/06/2019 [place] [phone] Sarah Serra APRN [facility] [place] [address] Other Social History Tobacco Use Types Packs/Day [...] encounter Miscellaneous Notes * Telephone Encounter - Tay Otero RN - 10/08/2019 10:18 AM EST 10/08/2019 1015 Spoke to Crescencio (patient's caregiver). Made aware that lab orders faxed to [facility]. Verbalized understanding. * Telephone Encounter - Chanel Beckford - 10/08/2019 9:30 AM EST Crescencio, the pt's home provider, called back with additional questions after having spoken with Lulu.. She can be reached at [phone]. * Addendum Note - Tay Otero RN - 10/08/2019 9:02 AM ESTAddended by: TAY OTERO on: 10/08/2019 09:02 AM Modules accepted: Orders * Telephone Encounter - Tay Otero RN - 10/08/2019 8:57 AM EST 10/08/2019 055 Spoke to patient's caregiver (lulu). Made aware that per Sarah Serra BODY AND FRAME MAN: Cinthya needs a repeat Sodium level and AED levels. Patient will have the blood draw in [facility]. Lab orders faxed. Patient/caller advised to call for any other concerns. Patient/caller in agreement and verbalized understanding of the plan. * Telephone Encounter - Tay Otero RN - 10/04/2019 9:05 AM EST 10/04/2019 0900 Call placed to patient/caller. LVM. Advised to call back. Per Sarah Serra BODY AND FRAME MAN:needs repeat AED levels and sodium level. * Telephone Encounter - Tay Otero RN - 10/03/2019 9:07 AM EST 10/03/2019 0905 Call placed to patient/caller. LVM. Advise dto call for update regarding seizures. And that patient needing repeat labs. * Telephone Encounter - Tay Otero RN - 09/09/2019 3:20 PM EST 09/09/2019 1515 Spoke to patient's caregiver (Lulu). Made aware that per Sarah Serra APRN: Lets try going down by 1 tab of Banzel midday, so 3 tabs AM 2 midday, and 3 pm I believe? If her seizures increase have them call us. Can we try to track down the other medication levels? Her sodium islow so I'm worried her trileptal may have also gone up. I will probably want to repeat the banzel and the sodium in a month, but I may add more once I see the other levels. Patient/caller advised to call for any other concerns. Patient/caller in agreement and verbalized understanding of the plan. * Telephone Encounter - Chanel Beckford - 09/09/2019 2:52 PM EST Lulu called back to speak with Tay. She can be reached at [phone] for the rest of the day. * Telephone Encounter - Tay Otero RN - 09/09/2019 9:23 AM EST 09/09/2019 0920 Call placed to patient/caller. LVM. Advised to call back regarding lab result. * Telephone Encounter - Tay Otero RN - 09/06/2019 2:42 PM EST Spoke to patient's caregiver (Lulu), following up on lab result. Results for CINTHYA BROWN ( ) as of 09/06/2019 14:43 Ref. Range 09/04/2019 00:00 Rufinamide Level Unknown 35.9 (H) Per Lulu, patient unchanged. No increase in seizures. Report forwarded to Sarah Serra APRN. * Telephone Encounter - Ana Corbin - 09/06/2019 12:53 PM EST Provider patient sees in Clinic: Caller: Lulu If not Pt / Relation to pt: Guardian Call back Number: [phone] Reason for call: Blood work Message/information for the nurse: States that the pts levels were off. Disposition of Call ?? Routine Message sent to the Nurse documented in this encounter Plan of Treatment Upcoming Encounters Date Type Department Care Team (Late st Contact Info) Description 08/06/2024 11:00 AM EST Office [place] [address] Sarah Serra APRN [facility] [place] [address] documented as of this encounter Goals Goal Patient Goal Type Associated Problems Recent Progress Patient-Stated? 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
--- OUTSIDE RECORDS SUMMARY | 2024-06-28 22:01 | XMS_ITS | Encounter Summary ---
[place] [address] Care Team Providers Care Upholstery Bundler Name Role Phone Luis Manuel Blanca MD Primary Care Provider [phone] Encounter Details Date Type Department Care Team (Late st Contact Info) Description 10/16/2019 External Results [place] [address] Sarah Serra [facility] [place] [address] Social History Tobacco Use Types Packs/Day Years [...] 11:00 AM EST Office [place] [phone] Sarah Serra APRN [facility] [place] [address] documented as of this encounter Goals Goal Patient Goal Type Associated Problems Recent Progress Patient-Stated? Author [facility] Home Medication Compliance and Understanding Patient Facing Action Plan On track( 024 12:05 PM EDT) Arnel Hurd, [facility] Note: Patient's specific desired goal: reduce number of seizures, with secondary goal of being able to taper some of the other AEDs being used Measured by: seizure record, side effects exhibited Time-frame to meet goal: 3-6 months documented as of this encounter Procedures Procedure Name Priority Date/Time Associated Diagnosis Comments OXCARBAZEPINE METABOLITE (MHC) Routine 10/09/2019 documented in this encounter Results * (ABNORMAL) Oxcarbazepine Metabolite (MHC) (10/09/2019) Oxcarbazep Met (Mhc) (DECEMBER) 47(A) 3 - 35 Rufinamide Level (DECEMBER) 22.1 5 - 30 Clobazam (DECEMBER) 241 30 - 300 Desmethylclobazam (DECEMBER) 5,460(A) 300 - 3,000 Blood specimen (specimen) 10/09/2019 Historical Provider LAB SEND OUT JIMENEZ MARCH documented in this encounter Visit Diagnoses Not on filedocumented in this encounter Care Teams Upholstery Bundler Relationship Specialty Start Date End Date Luis Manuel Blanca MD [address] [place] [address] PCP - General Family Medicine 06/24/16 documented as of this encounter
--- OUTSIDE RECORDS SUMMARY | 2024-06-28 22:01 | XMS_ITS | Encounter Summary ---
[place] [address] Care Team Providers Care Distribution Center Supervisor Name Role Phone Luis Manuel Blanca MD Primary Care Provider [phone] [phone] Encounter Details Date Type Department Care Team (Late st Contact Info) Description 03/01/2019 External Results [place] [address] Sarah Serra [employer] GRADER [facility] [place] [address] Social History Tobacco Use Types Packs/Day Years [...] 11:00 AM EST Office [place] [phone] Sarah Serra APRN [facility] [place] [address] documented as of this encounter Goals Goal Patient Goal Type Associated Problems Recent Progress Patient-Stated? Author Home Medication Compliance and Understanding Patient Facing Action Plan On track( 024 12:05 PM EDT) Arnel Hurd, [facility] Note: Patient's specific desired goal: reduce number of seizures, with secondary goal of being able to taper some of the other AEDs being used Measured by: seizure record, side effects exhibited Time-frame to meet goal: 3-6 months documented as of this encounter Procedures Procedure Name Priority Date/Time Associated Diagnosis Comments HEPATIC FUNCTION PANEL Routine 03/01/2019 documented in this encounter Results * (ABNORMAL) Hepatic Function Panel (03/01/2019) Protein, Total 7.3 Albumin 3.3(L) Bilirubin, Total 0.2 Bilirubin, Direct <0.05 Alkaline Phosphatase 117(H) Aspartate Aminotransferase 26 Alanine Aminotransferase 30 Phenobarbital 30.6 Blood specimen (specimen) 03/01/2019 Historical Provider CHEMISTRY ORDERAB LES documented in this encounter Visit Diagnoses Not on filedocumented in this encounter Care Teams Distribution Center Supervisor Relationship Specialty Start Date End Date Luis Manuel Blanca MD [address] [place] [address] PCP - General Family Medicine 06/24/16 documented as of this encounter
--- OUTSIDE RECORDS SUMMARY | 2024-06-28 22:01 | XMS_ITS | Encounter Summary ---
[place] [address] Care Team Providers Care Architectural Model Maker Name Role Phone Luis Manuel Blanca MD Primary Care Provider [phone] [phone] Reason for Visit * Reason Comments Medication Management Patient Education Encounter Details Date Type Department Care Team (Late st Contact Info) Description 04/09/2020 Specialty [place] [phone] Rosemarie Kiran [facility] Social History Tobacco Use Types Packs/Day Years Used Date Smoking Tobacco: Never Smokeless Tobacco: Never Alcohol Use Standard Drinks/Week Comments No 0 (1 standard drink = 0.6 oz pur e alcohol) Sex and Gender Information Value Date Recorded Sex Assigned at Not on file Gender Identity Not on file Sexual Orientation Not on file documented as of this encounter Progress Notes * Rosemarie Kiran [facility] - 04/09/2020 9:04 AM EDT Clinical Management Plan: Refill Specialty Pharmacy Consultation; Rosemarie Kiran [facility] Comprehensive Medication Management (CMM) Cinthya Ed Alejandrabrianna Ms. Cinthya Brown is a 59 y.o. [...] patient 5-7 days prior to next refill. LFTs were mentioned during the call to Heidi and told her that they are due to be re-drawn shortly. She is aware. Was a change made to the Care Plan: no If yes, should the medication be held: No Assessment and Recommendations: Title Type of Medication Management: chronic disease management, targeted medication review Referred By: provider Recipient: caregiver Provider: plan sponsor pharmacist Visit Type: [facility] Follow-up Method of Contact: by telephone Cognitive Ability: good Allergies and Drug intolerance: Allergies Allergen Reactions ??? Amoxicillin-Pot Clavulanate Rash ??? Risedronate Sodium Nausea And Vomiting Medication Reconciliation Discrepancies (compared to [facility] med list) -none New medications: no New [...] were made at the appointment and that [facility] is providing recommendations (summary located at top of note) for provider review and follow up. Rosemarie Kiran RPH 04/09/20 9:05 AM documented in this encounter Plan of Treatment Upcoming Encounters Date Type Department Care Team (Late st Contact Info) Description 08/06/2024 11:00 AM EST Office [place] [address] Sarah Serra APRN [facility] [place] [address] documented as of this encounter Goals Goal Patient Goal Type Associated Problems Recent Progress Patient-Stated? Author [facility] Home Medication Compliance and Understanding Patient Facing Action Plan On track( 024 12:05 PM EDT) No Arnel Benitez, [facility] Note: Patient's specific desired goal: reduce number of seizures, with secondary goal of being able to taper some of the other AEDs being used Measured by: seizure record, side effects exhibited Time-frame to meet goal: 3-6 months documented as of this encounter Visit Diagnoses Not on filedocumented in this encounter Care Teams Architectural Model Maker Relationship Specialty Start Date End Date Luis Manuel Blanca MD [address] [place] [address] PCP - General Family Medicine 06/24/16 documented as of this encounter
--- OUTSIDE RECORDS SUMMARY | 2024-06-28 22:01 | XMS_ITS | Encounter Summary ---
[place] [address] Care Team Providers Care Family Day Carer Name Role Phone Luis Manuel Blanca MD Primary Care Provider [phone] [phone] Reason for Visit * Reason Onset Date Comments Other 06/12/2019 Encounter Details Date Type Department Care Team (Late st Contact Info) Description 06/12/2019 Telephone [place] [phone] Sarah Serra AUTOMOBILE ENGINE ASSEMBLER [facility] [place] [address] Other Social History Tobacco Use Types Packs/Day [...] Telephone Encounter - Lili Otero RN - 06/12/2019 4:34 PM EST 06/12/19 1630 Spoke to patient. Made aware that per Sarah Serra AUTOMOBILE ENGINE ASSEMBLER: Have them go down to thelower dose of Epidiolex (3.6 ml twice daily) and we will see what happens. Patient/caller advised to call for any other concerns. Patient/caller in agreement and verbalized understanding of the plan. * Telephone Encounter - Lili Otero RN - 06/12/2019 4:13 PM EST [place] - 05/21/19 [place] - 11/26/19 Spoke to patient's caregiver (Lulu). Reported that patient has been noted to be very lethargic.Reported that this started prior to their FU appointment last 05/21, and this has gotten worse. She's wanting to go to bed around 1 pm. She's drooling a lot, not able to play with her video games andlooks like she's drugged up. No seizures noted. Denies any recent illness. Per Lulu her Epidiolex was increased from 3.6 ml BID to 5.1 ml BID. Report forwarded to Sarah Serra APRN for review and comment. Pt/caller aware they will be called back with input when available and to call back in the interim if additional questions or change arise before they hear back from this office. Pt/caller agreeable to this plan. * Telephone Encounter - Emelia Lopez - 06/12/2019 3:23 PM EST Clinical Roller Inspector And Mender Message Caller: Lulu If not Pt / Relation to pt: Caregiver Call back Number: [phone] Reason for call: Symptoms Message/information for the nurse: The pt's caregiver called requesting to speak with the nurse or the provider, as the pt has been extremely lethargic and she is inquiring if the pt's medications need to be adjusted. Disposition of Call ?? Routine Message sent to the Nurse documented in this encounter Plan of Treatment Upcoming Encounters Date Type Department Care Team (Late st Contact Info) Description 08/06/2024 11:00 AM EST Office [place] [address] Sarah Serra APRN [facility] [place] [address] documented as of this encounter Goals Goal Patient Goal Type Associated Problems Recent Progress Patient-Stated? Author DH Home Medication Compliance and Understanding Patient Facing Action Plan On track( 024 12:05 PM EDT) Arnel Hurd, [facility] Note: Patient's specific desired goal: reduce number of seizures, with secondary goal of being able to taper some of the other AEDs being used Measured by: seizure record, side effects exhibited Time-frame to meet goal: 3-6 months documented as of this encounter Visit Diagnoses Not on filedocumented in this encounter Care Teams Family Day Carer Relationship Specialty Start Date End Date Luis Manuel Blanca MD [address] [place] [address] PCP - General Family Medicine 06/24/16 documented as of this encounter
--- OUTSIDE RECORDS SUMMARY | 2024-06-28 22:01 | XMS_ITS | Encounter Summary ---
[place] [address] Care Team Providers Care Lithograph Press Feeder Name Role Phone Luis Manuel Blanca MD Primary Care Provider [phone] [phone] Encounter Details Date Type Department Care Team ([facility] Contact Info) Description 04/24/2019 Telephone [place] [address] Sarah Serra APRN [facility] [place] [address] Social History Tobacco Use Types Packs/Day Years [...] encounter Miscellaneous Notes * Telephone Encounter - Liil Otero RN - 04/24/2019 12:01 PM EDT Spoke to patient's caregiver (Lulu). Made aware that repeat LFTs and AED levels due at the end of the month. Verbalized understanding. documented in this encounter Plan of Treatment Upcoming Encounters Date Type Department Care Team (Late Contact Info) Description 08/06/2024 11:00 AM EST Office [place] [address] Sarah Serra APRN [facility] [place] [address] documented as of this encounter Goals Goal Patient Goal Type Associated Problems Recent Progress Patient-Stated? Author Home Medication Compliance and Understanding Patient Facing Action Plan On track( 024 12:05 PM EDT) No Arnel Benitez, [facility] Note: Patient's specific desired goal: reduce number of seizures, with secondary goal of being able to taper some of the other AEDs being used Measured by: seizure record, side effects exhibited Time-frame to meet goal: 3-6 months documented as of this encounter Visit Diagnoses Not on filedocumented in this encounter Care Teams Lithograph Press Feeder Relationship Specialty Start Date End Date Luis Manuel Blanca MD [address] [place] [address] PCP - General Family Medicine 06/24/16 documented as of this encounter
--- OUTSIDE RECORDS SUMMARY | 2024-06-28 22:01 | XMS_ITS | Encounter Summary ---
[place] [address] Care Team Providers Care Blocker Heated Metal Forms Name Role Phone Luis Manuel Blanca MD Primary Care Provider [phone] [phone] Reason for Visit * Reason Comments Medication Management Patient Education Encounter Details Date Type Department Care Team (Late st Contact Info) Description 08/21/2019 Specialty [place] [address] Arnel Benitez [facility] Social History Tobacco [...] Progress Notes * Arnel Benitez [facility] - 08/21/2019 12:34 PM EST Specialty Pharmacy Consultation; Arnel Benitez [facility] Comprehensive Medication Management (CMM) Cinthya Brown Diagnosis: epilepsy with status epilepticus Therapy Start Date: 01/30/19 Contact in person or via telephone: telephone Ms. Cinthya Brown is a 58 y.o. (1960) female who was contacted in regard to specialty medication. Spoke with patient regarding EPIDIOLEX. A review of the medication therapy was performed. The medication was refilled as scheduled, and all medication related questions and concerns were addressed. The specialty pharmacy staff will follow up with the patient 5-7 days prior to next refill. Is the patient willing to proceed with the Clinical Assessment? Yes Summary and Recommendations: Provided follow up consultation with Lulu, caregiver, and verified that current dose being usedis 3.6ml bid. The dose had been reduced in May 2019 d/t lethargy suspected to be from use of Epidiolex, however during this encounter, Lulu said that in retrospect she believes it may have been largely due in part to Cinthya not drinking enough fluids and being dehydrated. Lulu said this has been corrected and she would now like to discuss a trial small titration (not all the way to 5.1ml bid) to assess potential benefit again. She stated taht Cinthya is adherent to the regimen and did not mention any suspected side effects at this time. Alix's seizures have improved considerably since starting, with her baseline being 3-4 clusters per week, and now only one every 3-4 weeks if Cinthya is in a good state of mind. She noted however that if there is a lot of excitement (good or bad) that the frequency of the cluster can increase even now. We briefly discussed labs and the need for occasional hepatic labs (among others) and she acknowledged that she was behind on getting them done.We should have her LFTs and bili checked soon. We discussed her stability for safety reasons and urged a safety check of home and smoke detectors. Clinic follow-up needed: yes - Lulu (caregiver) will contact clinic to discuss possible partialtitration up again Allergies and Drug intolerance: Allergies Allergen Reactions ??? Amoxicillin-Pot Clavulanate Rash ??? Risedronate Sodium Nausea And Vomiting Special Dietary or Hydration Requirements: yes - caregiver makes extra effort to keep Cinthya hydrated There is no height or weight on file to calculate BMI. Medication Reconciliation Discrepancies (compared to [facility] med list) no Medication Adherence Patient reported [...] Medications Medication Sig Note Dispense Refill ??? TRILEPTAL 600 mg Tablet TAKE ONE [...] 1 Application topically as needed. 0 ??? cannabidiol, CBD, extract (EPIDIOLEX) 100 mg/mL Solution Take 5.1 mLs by mouth 2 times daily. (Patient taking differently: Take 7.5 mg/kg/dose by mouth 2 times daily. Indications: 3.6 ml BID) 306mL 5 ??? LORazepam (ATIVAN) 1 mg Tablet Take 1-2 tablets at onset of seizure symptoms, if ineffective after 30 minutes may repeat dose. If still not effective please call neurologist furniture sales consultant. Max 4mg daily. Take 0.5-1mg prior [...] If still not effective please call neurologist furniture sales consultant. 1 kit 3 ??? midazolam, PF, (VERSED) 5 mg/mL Solution 5 mg by nasal route as needed (seizure clusters). Using atomizer, administer 2.5 mg (0.5ml) into nasal passage, then repeat with other side. 20 mL 3 ??? sertraline (ZOLOFT) 100 mg Tablet Take 1 tablet by mouth daily. 01/28/2019: Takes at night 90 tablet 0 ??? acetaminophen (TYLENOL) 500 mg Tablet Take 500 mg by mouth 2 times daily. ??? QUEtiapine (SEROQUEL) 50 mg Tablet Take 25 mg by mouth nightly. 05/21/2019: 50mg Nightly ??? melatonin 3 mg Tablet Take 6 mg by mouth nightly. ??? furosemide (LASIX) 20 mg Tablet Take 20 mg by mouth daily. 05/21/2019: 10mg PRN ??? esomeprazole (NEXIUM) 40 mg Capsule, Delayed Release(E.C.) Take 40 mg by mouth 2 times daily. Reported on 11/18/2016 ??? ferrous sulfate 325 mg (65 mg iron) Tablet Take 325 mg by mouth daily. ??? atorvastatin (LIPITOR) 40 mg tablet Take 40 mg by mouth daily. ??? loratadine (CLARITIN) 10 mg Tablet Take 10 mg by mouth daily as needed for Allergies. 01/28/2019: seasonal No current facility-administered medications for this visit. [...] 11/20/2018 Lab Results Component Value Date ALT 29 05/08/2019 AST 14 05/08/2019 ALKPHOS 105 05/08/2019 BILITOT 0.3 05/08/2019 BILIDIR 0.09 05/08/2019 ALBUMIN 4.1 05/08/2019 PROT 7.5 05/08/2019 Lab Results Component Value Date WBC 8.7 [...] caregiver Provider: plan sponsor pharmacist Visit Type: [facility] Follow-up Method of Contact: by telephone Cognitive [...] adverse drug events identified: 0 Time spent: 31-45 min Treatment Outcomes 08/21/2019 1253 Disease progression: Stable Effectiveness of therapy, reported improvements: Improved Patient Overall Status: Improved Reviewed in detail with patient: Dose appropriateness [...] and mitigation strategies, and interruptions in therapy: Yes, caregiver understands fully Economic Assessment: Patient is agreeable to medication copay: yes Copay Amount: 0 Day Supply: 30 Date Needed: 08/31/19 Copay assistance required: no Physical Assessment: Functional limitations identified: yes - some functional deficiency - patient can stand and pivot, but mobility limited Is patient a fall risk: yes - in context of above Cognitive limitations identified such as orientation, memory, reasoning or judgement: Yes, cognitive deficits noted Other: no Social Assessment: Does the patient have a primary child day care provider? yes - shared caregiving, with primary contact being Lulu Patient has emergency contact on file: Yes Does patient need referral to sexual assault social worker: No Does patient need referral to advocacy group: No Physical and Home Health Assessment: Is the patient able to store their medication as directed? Yes Is the patient in a safe home environment? Yes Do you have a support network? Yes Reviewed potential home safety hazards: Yes Therapy Assessment: Appropriate Therapy: Yes Current Medication Dosing/Route/Frequency: Take 3.6ml twice a day. Effective: yes - caregiver Lulu states that Cinthya has improved significantly Patient experienced change in condition that affects [...] track to achieve goals of therapy? yes Additional care/services needed: no Educational information or adherence tools provided: Yes Additional equipment/supplies required: no Care Plan Reviewed and Approved by both Pharmacist and Patient: Yes Did Care Plan Change? No Informed patient of specialty pharmacy services: Yes -Patient received welcome packet:??Yes?Date provided: 01/29/19 ?Delivery Method: POS ?? -Patient received Rights & Responsibilities:?Yes?Date provided: 01/29/19 ?Delivery Method: POS -Patient is aware a licensed [...] Yes Patient Satisfaction with Therapy: yes - per caregiver Lulu, much improved Patient understands no changes to current drug regimen were made at the appointment and that [facility] isproviding recommendations (summary located at top of note) for provider review and follow up. Arnel Benitez RPH 08/21/19 12:53 PM documented in this encounter Plan of Treatment Upcoming Encounters Date Type Department Care Team (Late st Contact Info) Description 08/06/2024 11:00 AM EST [place] [address] Sarah Serra APRN [facility] [place] [address] documented as of this encounter Goals Goal Patient Goal Type Associated Problems Recent Progress Patient-Stated? Author [facility] Medication Compliance and Understanding Patient Facing Action [...] on filedocumented in this encounter Care Teams Blocker Heated Metal Forms Relationship Specialty Start Date End Date Luis Manuel Blanca MD [address] [place] [address] PCP - General Family Medicine 06/24/16 documented as of this encounter
--- OUTSIDE RECORDS SUMMARY | 2024-06-28 22:01 | XMS_ITS | Encounter Summary ---
[place] [address] Care Team Providers Care School Nurse Name Role Phone Luis Manuel Blanca MD Primary Care Provider [phone] Reason for Visit * Reason Onset Date Comments Medication Refill Medication Refill 07/08/2019 Encounter Details Date Type Department Care Team (Late st Contact Info) Description 07/03/2019 [place] [address] Sarah Serra, DINO [facility] [place] [address] Social History Tobacco Use Types Packs/Day Years [...] Telephone Encounter - Olinda Mata RN - 07/08/2019 1:40 PM EST Received signed script for Phenobarbital 60mg. [place] [phone] * Telephone Encounter - Risa Carrizales, RN - 07/03/2019 3:34 PM EST surescript request for pbarb FUV with Sarah 11/2019 documented in this encounter Plan of Treatment Upcoming Encounters Date Type Department Care Team (Late st Contact Info) Description 08/06/2024 11:00 AM EST Office [place] [address] Sarah Serra APRN [facility] [place] [address] documented as of this encounter Goals Goal Patient Goal Type Associated Problems Recent Progress Patient-Stated? Author [facility] Medication Compliance and Understanding Patient Facing Action Plan On track( 024 12:05 PM EDT) No Arnel Benitez, [facility] Note: Patient's specific desired goal: reduce number of seizures, with secondary goal of being able to taper some of the other AEDs being used Measured by: seizure record, side effects exhibited Time-frame to meet goal: 3-6 months documented as of this encounter Visit Diagnoses Not on filedocumented in this encounter Care Teams School Nurse Relationship Specialty Start Date End Date Luis Manuel Blanca MD [address] [facility] [address] [place] [address] PCP - General Family Medicine 06/24/16 documented as of this encounter
--- OUTSIDE RECORDS SUMMARY | 2024-06-28 22:01 | XMS_ITS | Encounter Summary ---
[place] [address] Care Team Providers Care Blender/Braze Applicator Name Role Phone Luis Manuel Blanca MD Primary Care Provider [phone] [phone] Encounter Details Date Type Department Care Team (Late st Contact Info) Description 11/29/2019 [place] [address] Sarah Serra [facility] [place] [address] Social History Tobacco Use Types Packs/Day Years [...] 11:00 AM [place] [address] Sarah Serra POULTRY FARM SUPERVISOR [facility] [place] [address] documented as of this encounter Goals Goal [...] on filedocumented in this encounter Care Teams Blender/Braze Applicator Relationship Specialty Start Date End Date Luis Manuel Blanca MD [address] [place] [address] PCP - General Family Medicine 06/24/16 documented as of this encounter
--- OUTSIDE RECORDS SUMMARY | 2024-06-28 22:01 | XMS_ITS | Encounter Summary ---
[place] [address] Care Team Providers Care Network Admin Name Role Phone Luis Manuel Blanca MD Primary Care Provider [phone] [phone] Encounter Details Date Type Department Care Team (Late st Contact Info) Description 09/06/2019 External [place] [address] Sarah Serra SENIOR SALES ADMINISTRATOR [facility] [place] [address] Social History Tobacco Use Types Packs/Day Years [...] 11:00 AM EST Office [place] [address] Sarah Serra APRN [facility] [place] [address] documented as of this encounter Goals Goal [...] Procedure Name Priority Date/Time Associated Diagnosis Comments LIPID PANEL (REFLEX DIRECT LDL) Routine 09/04/2019 COMPREHENSIVE METABOLIC PANEL Routine 09/04/2019 documented in this encounter Results * (ABNORMAL) Lipid Panel (Reflex Direct LDL) (09/04/2019) Cholesterol, Total 188 Triglyceride 214(H) HDL Cholesterol 43 LDL Cholesterol 103(H) Blood specimen (specimen) 09/04/2019 Historical Provider CHEMISTRY ORDERAB LES * (ABNORMAL) Comprehensive metabolic panel (non-fasting) (09/04/2019) Glucose 84 Blood Urea Nitrogen 7 Creatinine 0.44(L) Est Glomerular Filtration Rate >=60.00 Sodium 129(L) Potassium 3.8 Chloride 90(L) Carbon Dioxide 30 Calcium 8.6 Protein, Total 7.2 Albumin 3.7 Bilirubin, Total 0.3 Bilirubin, Direct 0.09 Alkaline Phosphatase 114 Aspartate Aminotransferase 11(L) Alanine Aminotransferase 23 Anion Gap 9 Rufinamide Level (DECEMBER) 35.9(H) Blood specimen (specimen) 09/04/2019 Historical Provider CHEMISTRY ORDERAB LES documented in this encounter Visit Diagnoses Not on filedocumented in this encounter Care Teams Network Admin Relationship Specialty Start Date End Date Luis Manuel Blanca MD [address] [place] [address] PCP - General Family Medicine 06/24/16 documented as of this encounter
--- OUTSIDE RECORDS SUMMARY | 2024-06-28 22:01 | XMS_ITS | Encounter Summary ---
[place] [address] Care Team Providers Care Sonogram Technician Name Role Phone Luis Manuel Blanca MD Primary Care Provider [phone] [phone] Reason for Visit * Reason Comments Medication Management Patient Education Encounter Details Date Type Department Care Team (Late st Contact Info) Description 08/15/2019 Specialty [place] [address] Bj Heck [facility] Social History Tobacco Use Types [...] Progress Notes * Bj Heck [facility] - 08/15/2019 3:51 PM EST Clinical Management Plan: Refill Specialty Pharmacy Consultation; Bj Heck [facility] Comprehensive Medication Management (CMM) Cinthya [...] caregiver Provider: plan sponsor pharmacist [facility] Method of Contact: by telephone Cognitive Ability: good Allergies and Drug intolerance: Allergies Allergen Reactions ??? Amoxicillin-Pot Clavulanate Rash ??? Risedronate Sodium Nausea And Vomiting Medication Reconciliation Discrepancies (compared to [facility] med list) -None New medications: no [...] at the appointment and that [facility] is providing recommendations (summary located at top of note) for provider review and follow up. Bj Heck RPH 08/15/19 3:54 PM documented in this encounter Plan of Treatment Upcoming Encounters Date Type Department Care Team (Late st Contact Info) Description 08/06/2024 11:00 AM EST [place] [address] Sarah Serra APRN [facility] [place] [address] documented as of this encounter Goals Goal Patient Goal Type Associated Problems Recent Progress Patient-Stated? Author [facility] Medication Compliance and Understanding Patient Facing Action Plan On track( 024 12:05 PM EDT) No Arnel Benitez [facility] Note: Patient's specific desired goal: reduce number of seizures, with secondary goal of being able to taper some of the other AEDs being used Measured by: seizure record, side effects exhibited Time-frame to meet goal: 3-6 months documented as of this encounter Visit Diagnoses Not on filedocumented in this encounter Care Teams Sonogram Technician Relationship Specialty Start Date End Date Luis Manuel Blanca MD [address] [place] [address] PCP - General Family Medicine 06/24/16 documented as of this encounter
--- OUTSIDE RECORDS SUMMARY | 2024-06-28 22:01 | XMS_ITS | Encounter Summary ---
[place] [address] Care Team Providers Care Paving Rammer Name Role Phone Luis Manuel Blanca MD Primary Care Provider [phone] Reason for Visit * Reason Onset Date Comments Medication Refill 07/05/2019 Encounter Details Date Type Department Care Team (Late st Contact Info) Description 07/05/2019 Telephone [place] [address] Sarah Serra APRN [facility] [address] Medication Refill Social History Tobacco Use Types [...] Telephone Encounter - Lili Otero RN - 07/05/2019 12:54 PM EST Phenobarb 60 mg rx sent. * Telephone Encounter - Risa Carrizales RN - 07/05/2019 12:02 PM EST Rx line request By Heidi for refill of phenobarbital 60 mg tab 2 tab at hs rx to go to [facility] Contact # for Heidi [phone] documented in this encounter Plan of Treatment Upcoming Encounters Date Type Department Care Team (Late st Contact Info) Description 08/06/2024 11:00 AM EST Office [place] [address] Sarah Srera APRN [facility] [place] [address] documented as of this encounter Goals Goal Patient Goal Type Associated Problems Recent Progress Patient-Stated? Author [facility] Medication Compliance and Understanding Patient Facing Action Plan On track( 024 12:05 PM EDT) Arnel Hurd, [facility] Note: Patient's specific desired goal: reduce number of seizures, with secondary goal of being able to taper some of the other AEDs being used Measured by: seizure record, side effects exhibited Time-frame to meet goal: 3-6 months documented as of this encounter Visit Diagnoses Not on filedocumented in this encounter Care Teams Paving Rammer Relationship Specialty Start Date End Date Luis Manuel Blanca MD [address] [place] [address] PCP - General Family Medicine 06/24/16 documented as of this encounter
--- OUTSIDE RECORDS SUMMARY | 2024-06-28 22:01 | XMS_ITS | Encounter Summary ---
[place] [address] Care Team Providers Care Quantometer Operator Name Role Phone Luis Manuel Blanca MD Primary Care Provider [phone] [phone] Encounter Details Date Type Department Care Team (Late st Contact Info) Description 05/13/2019 [place] [address] Sarah Serra APRN [facility] [place] [address] Social History Tobacco Use Types Packs/Day Years [...] Telephone Encounter - Lili Otero RN - 05/14/2019 12:30 PM EDT Repeat labs done 05/08 (scan doc). documented in this encounter Plan of Treatment Upcoming Encounters Date Type Department Care Team (Late st Contact Info) Description 08/06/2024 11:00 AM EST [place] [address] Sarah Serra APRN [facility] [place] [place] [address] documented as of this encounter Goals Goal [...] on filedocumented in this encounter Care Teams Quantometer Operator Relationship Specialty Start Date End Date Luis Manuel Blanca MD [address] [place] [address] [address] [facility] [address] [place] [address] PCP - General Family Medicine 06/24/16 documented as of this encounter
--- OUTSIDE RECORDS SUMMARY | 2024-06-28 22:01 | XMS_ITS | Encounter Summary ---
[place] [address] Care Team Providers Care Prescription Benefit Specialist Name Role Phone Luis Manuel Blanca MD Primary Care Provider [phone] [phone] Encounter Details Date Type Department Care Team (Late st Contact Info) Description 09/12/2019 External [place] [address] Sarah Serra CASTING AGENT [facility] [address] Social History Tobacco Use Types Packs/Day Years [...] 11:00 AM EST [place] [address] Sarah Serra APRN [facility] [place] [address] documented as of this encounter Goals Goal Patient Goal Type Associated Problems Recent Progress Patient-Stated? Author Home Medication Compliance and Understanding Patient Facing Action Plan On track( 024 12:05 PM EDT) Arnel Hurd, [facility] Note: Patient's specific desired goal: reduce number of seizures, with secondary goal of being able to taper some of the other AEDs being used Measured by: seizure record, side effects exhibited Time-frame to meet goal: 3-6 months documented as of this encounter Procedures Procedure Name Priority Date/Time Associated Diagnosis Comments CBC (WITH DIFF) Routine 12/07/2018 COMPREHENSIVE METABOLIC PANEL Routine 12/07/2018 documented in this encounter Results * (ABNORMAL) CBC (with Diff) (12/07/2018) White Blood Cell 12.63(H) Red Blood Cell 4.36 Hemoglobin 12.9 Hematocrit 39.5 Mean Cell Volume 90.6 Mean Cell Hemoglobin 29.6 Mean Cell Hemoglobin Concentration 32.7 RDW coefficient of variation 13.9 Platelet 203 Mean Platelet Volume 9.6 Neutrophil % 89.2 Lymph % 6.3 Monocyte % 4.3 Eosinophil Manual 0.0 Basophil % 0.0 Immature Gran % 0.2 Neutrophil Absolute (ANC) - Automated 11.27(H) Lymph Absolute Manual 0.8(L) Monocyte Abs 0.54 Eos Absolute Manual 0.00 Baso Absolute Manual 0.00 Blood specimen (specimen) 12/07/2018 Historical Provider HEMATOLOGY ORDERA BLES * (ABNORMAL) Comprehensive metabolic panel (non-fasting) (12/07/2018) Glucose 125(H) Blood Urea Nitrogen 13 Creatinine 0.69 Est Glomerular Filtration Rate >=60.00 Sodium 139 Potassium 3.4(L) Chloride 100 Carbon Dioxide 32 Calcium 9.1 Protein, Total 7.1 Albumin 3.3(L) Bilirubin, Total 0.2 Alkaline Phosphatase 120(H) Aspartate Aminotransferase 22 Alanine Aminotransferase 31 Anion Gap 7 Blood specimen (specimen) 12/07/2018 Historical Provider CHEMISTRY ORDERAB LES documented in this encounter Visit Diagnoses Not on filedocumented in this encounter Care Teams Prescription Benefit Specialist Relationship Specialty Start Date End Date Luis Manuel Blanca MD [address] [place] [address] PCP - General Family Medicine 06/24/16 documented as of this encounter
--- OUTSIDE RECORDS SUMMARY | 2024-06-28 22:01 | XMS_ITS | Encounter Summary ---
Author Organization [facility] [place] [address] Care Team Providers Care Cabinetmaker Helper Name Role Phone Luis Manuel Blanca MD Primary Care Provider [phone] [phone] Encounter Details Date Type Department Care Team (Late st Contact Info) Description 08/22/2019 [place] [address] Sarah Serra CARPENTER'S ASSISTANT [facility] [place] [address] Social History Tobacco Use Types Packs/Day Years [...] Telephone Encounter - Lili Otero RN - 08/22/2019 9:19 AM EST Spoke to patient's caregiver (Lulu). Made aware that per Sarah Serra CARPENTER'S ASSISTANT: Increase Epidiolex to 4.3 ml twice a day. Advised to call for any increase in sedation. Patient/caller advised to call for any other concerns. Patient/caller in agreement and verbalized understanding of the plan. documented in this encounter Plan of Treatment Upcoming Encounters Date Type Department Care Team (Late st Contact Info) Description 08/06/2024 11:00 AM EST [place] [address] Sarah Serra APRN [facility] [place] [address] documented as of this encounter Goals Goal [...] on filedocumented in this encounter Care Teams Cabinetmaker Helper Relationship Specialty Start Date End Date Luis Manuel Blanca MD [address] [place] [address] [address] [facility] 1 [place] [address] PCP - General Family Medicine 06/24/16 documented as of this encounter
--- OUTSIDE RECORDS SUMMARY | 2024-06-28 22:01 | XMS_ITS | Encounter Summary ---
[place] [address] Care Team Providers Care [employer] Estates Paralegal Name Role Phone Luis Manuel Blanca MD Primary Care Provider [phone] Reason for Visit * Reason Comments Medication Management Encounter Details Date Type Department Care Team (Late st Contact Info) Description 04/23/2019 Specialty [place] [address] Arnel Benitez [facility] Social History Tobacco Use Types Packs/Day [...] Progress Notes * Arnel Benitez [facility] - 04/23/2019 9:53 AM EDT Clinical Management Plan: Refill Specialty Pharmacy Consultation; Arnel Benitez [facility] Comprehensive Medication Management (CMM) Cinthya Ed Alejandrabrianna Ms. Cinthya Brown is a 58 y.o. (1960) female who was contacted in regard to a specialty medication refill reminder. Spoke with caregiver (Lulu) regarding Epidiolex. A review of the medication therapy was performed. The medication was refilled as scheduled, and all medication related questions and concerns were addressed. The specialty pharmacy staff will follow up with the patient 5-7 days prior to next refill. Of note, 3-month labs due this month. Was a change made to the Care [...] Discrepancies (compared to [facility] med list) - none New medications: no [...] were made at the appointment and that [facility] is providing recommendations (summary located at top of note) for provider review and follow up. Arnel Benitez RPH 04/23/19 9:54 AM documented in this encounter Plan of Treatment Upcoming Encounters Date Type Department Care Team (Late st Contact Info) Description 08/06/2024 11:00 AM EST [place] [address] Sarah Serra APRN [facility] [place] [address] documented as of this encounter Goals Goal [...] medications documented in this encounter Care Teams [employer]ates Paralegal Relationship Specialty Start Date End Date Luis Manuel Blanca MD [address] [place] [address] PCP - General Family Medicine 06/24/16 documented as of this encounter
--- OUTSIDE RECORDS SUMMARY | 2024-06-28 22:01 | XMS_ITS | Encounter Summary ---
[place] [address] Care Team Providers Care Steffen House Supervisor Name Role Phone Luis Manuel Blanca MD Primary Care Provider [phone] Encounter Details Date Type Department Care Team (Late st Contact Info) Description 03/06/2019 External [place] [address] Sarah Serra DYNAMO TENDER [facility] [address] Social History Tobacco Use Types Packs/Day Years [...] 11:00 AM EST [place] [id number] Sarah Serra APRN [facility] [place] [address] documented as of this encounter Goals Goal [...] Associated Diagnosis Comments OXCARBAZEPINE METABOLITE ([facility]) Routine 03/01/2019 documented in this encounter Results * (ABNORMAL) Oxcarbazepine Metabolite ([facility]) (03/01/2019) Oxcarbazep Met ([facility]) (DECEMBER) 27 Rufinamide Level (DECEMBER) 28.5 Clobazam (DECEMBER) 219.0 Desmethylclobazam (DECEMBER) 4,560.0 Blood specimen (specimen) 03/01/2019 Historical Provider MD LAB SEND OUT JIMENEZ MARCH documented in this encounter Visit Diagnoses Not on filedocumented in this encounter Care Teams Steffen House Supervisor Relationship Specialty Start Date End Date Luis Manuel Blanca MD [address] [place] [address] PCP - General Family Medicine 06/24/16 documented as of this encounter
--- OUTSIDE RECORDS SUMMARY | 2024-06-28 22:01 | XMS_ITS | Encounter Summary ---
[place] [address] Care Team Providers Care Dry Cleaning Manager Name Role Phone Luis Manuel Blanca MD Primary Care Provider [phone] Reason for Visit * Reason Comments Medication Management Patient Education Encounter Details Date Type Department Care Team (Late st Contact Info) Description 02/10/2020 Specialty [place] [id number] Bj Heck [facility] Social History Tobacco Use [...] encounter Progress Notes * Bj Heck [facility] - 02/10/2020 1:35 PM EDT Specialty Pharmacy Consultation; Bj Heck [facility] Comprehensive Medication Management (CMM) Cinthya Brown Diagnosis: EPILEPSY Therapy Start Date: 02/20/2019 Contact in person or via telephone:PHONE Ms. Cinthya Brown is a 59 y.o. (1960) female who was contacted in regard to specialty medication. Spoke with caregiver. Caregiver name: Heidi regarding EPIDIOLEX. A review of the medication therapy was performed. The medication was scheduled, and all medication related questions and concerns were addressed. The specialty pharmacy staff will follow up with the patient 5-7 days prior to next refill. Is the patient willing to proceed with the Clinical Assessment? Yes Summary and Recommendations: We spoke today to Cinthya Brown who has been on epidiolex for a year. Lulu the caregiver states that since going on the epidiolex she has had a significant reduction in the frequency of her seizures from 2-3 weekly, down to about 2 monthly. Heidi states that the severity is about the same. We went through a complete medication, allergy, and problem list reconciliation and found no issues. Heidi states that Cinthya has been a bit sedated, but no more than her normal level of sedation. This could be related to the epidiolex, but is more than likely a combination effect of all of her AEDs. Her labs were good back in August and could be worth repeating as she is on both clobazam and epidiolex, which is a known interaction. I couselled that if the sedation ever gets to an abnormal point for Heidi to give us a call at the pharmacy. Heidi opted out of the PHQ9 and quality of life question on the consult because of the difficulty measuring such things in a nonverbal person, but she states that Cinthya is very happy day to day. She enjoys playing and interacting and seldom is found upset. She is sleeping much better than she had been in the past. I asked Heidi to reach out and schedule and appointment with the clinic as there is not one on file. When asked Heidi states there is no change to her living situation and that Cinthya is safe. We will follow up again in 6 more months. Clinic follow-up needed: no Allergies and Drug intolerance: Allergies Allergen Reactions ??? Amoxicillin-Pot Clavulanate Rash ??? Risedronate Sodium Nausea And Vomiting Special Dietary or Hydration Requirements: no There is no height or weight on file to calculate BMI. Medication Reconciliation Discrepancies (compared to [facility] med list) no Medication Adherence Patient reported [...] ml twice daily. 258 mL 3 ??? TrileptaL 300 mg Tablet Take 1 tablet by mouth Daily at Noon. Brand name only 90 tablet 3 ??? TrileptaL 600 mg Tablet Take 1 tablet by mouth 2 times daily. Brand name only 180 tablet 3 ??? sertraline (ZOLOFT) 100 mg Tablet Take 1 tablet by mouth daily. 90 tablet 3 ??? PHENobarbitaL (LUMINAL) 60 mg Tablet Take 2 tablets by mouth nightly. 180 tablet 1 ??? cloBAZam (Onfi) 10 mg Tablet Take 2 tablets by mouth nightly. 60 tablet 5 ??? BanzeL 400 mg Tablet 3 tablets [...] If still not effective please call neurologist nutrition services associate. Max 4mg daily. Take 0.5-1mg prior to [...] If still not effective please call neurologist nutrition services associate. 1 kit 3 ??? acetaminophen (TYLENOL) 500 [...] management Referred By: pharmacist Recipient: caregiver Provider: pharmacist - other Visit Type: Med Taper Follow-up Method of Contact: by telephone Cognitive Ability: good Patient Counseling Counseled the patient on the following: reviewed medication changes since last visit, medication safety precautions education provided, doses and administration discussed, safe handling, storage, and disposal discussed, possible adverse effects and management discussed, possible drug and prescription drug interactions discussed, lab monitoring and follow-up discussed, therapeutic rationale discussed, adherence and missed doses discussed, pharmacy contact information discussed, monitoring medication discussed, preventative care discussed, recommendations to doctor discussed, reminder to refill or tack picker medication discussed, self-monitoring discussed, lifestyle modification education, referral needs discussed Drug Medication Management Summary Topics discussed: reviewed medication changes since last visit, medication safety precautions education provided, doses and administration discussed, safe handling, storage, and disposal discussed, possible adverse effects and management discussed, possible drug and prescription drug interactions discussed, lab monitoring and follow-up discussed, therapeutic rationale discussed, adherence and missed doses discussed, pharmacy contact information discussed, monitoring medication discussed, preventative care discussed, recommendations to doctor discussed, reminder to refill or tack picker medication discussed, self-monitoring discussed, lifestyle modification education, referral needs discussed Number of adverse drug events identified: 0 Time spent: 1-15 min Treatment Outcomes 02/10/2020 1340 Disease progression: Stable Patient Overall Status: Stable [...] Cognitive Assessment: Functional limitations identified: yes - per diagnosis Cognitive limitations identified: yes - per diagnosis Concern regarding orientation/memory: yes - per diagnosis Concern with reasoning/judgement: yes - per diagnosis Is patient a fall risk: yes - per diagnosis Other needed information: no Social Assessment: Does the patient have a primary career counselor? yes - Heidi Does the patient have an emergency contact on file: Yes Does patient need referral to health social work professor: No Does patient need referral to advocacy [...] Amount: 0 Day Supply: 30 Date Needed: 02/29/20 Copay assistance required: no Therapy Assessment: Current Medication Dosing/Route/Frequency: EPIDIOLEX 4.3ML PO BID Appropriate Therapy: Yes Effective: yes - REDUCTION IN SEIZURES SINCE BASELINE Patient-Reported Side Effects: no Patient Goals: Patient's specific desired goal: reduce seizures Measured by: number of seizures Time-frame to meet goal: 3-6 months Is the patient on track to achieve goals of therapy? yes Care Plan and Interventions: Care Plan Reviewed and Approved by both Pharmacist and Patient: Yes Did Care Plan Change? No Interventions (if applicable): No Patient experienced change in condition that affects treatment: no Additional care/services needed: no Educational information or adherence tools provided: No Additional equipment/supplies required: no Pharmacist follow-up needed: No Patient Satisfaction with Care/Services Provided: Yes Informed patient of specialty pharmacy services: Yes -Patient received welcome packet: yes - mail Date Received: 02/20/19 Delivery Method: mail -Patient returned signed Rights & Responsibilities: yes Date Received: 02/20/19 Delivery Method: mail -Patient is aware a [...] at the appointment and that [facility] (summary located at top of note) for provider review and follow up. Bj Heck RPH 02/10/20 1:40 PM documented in this encounter Plan of Treatment Upcoming Encounters Date Type Department Care Team (Late st Contact Info) Description 08/06/2024 11:00 AM EST Office [place] [address] Sarah Serra APRN [facility] [place] [address] documented as of this encounter Goals Goal Patient Goal Type Associated Problems Recent Progress Patient-Stated? Author [facility] Medication Compliance and Understanding Patient [...] on filedocumented in this encounter Care Teams Dry Cleaning Manager Relationship Specialty Start Date End Date Luis Manuel Blanca MD [address] [place] [address] [address] [facility] [address] [place] [address] PCP - General Family Medicine 06/24/16 documented as of this encounter
--- OUTSIDE RECORDS SUMMARY | 2024-06-28 22:02 | XMS_ITS | Encounter Summary ---
[place] [address] Care Team Providers Care Abstract Manager Name Role Phone Luis Manuel Blanca MD Primary Care Provider [phone] Reason for Visit * Reason Comments Medication Refill Encounter Details Date Type Department Care Team (Late st Contact Info) Description 05/07/2018 Refill [place] [address] Sarah Serra APRN [facility] [place] [address] Seizure Social History Tobacco Use Types Packs/Day Years [...] Telephone Encounter - Risa Carrizales RN - 05/07/2018 4:45 PM EDT Trileptal rx request Last appt 03/23/18 Dr. Alec BIRD 05/15/28 Sarah Serra PATTERN HANGER Last rx's November with 5 RF documented in this encounter Plan of Treatment Upcoming Encounters Date Type Department Care Team (Late st Contact Info) Description 08/06/2024 11:00 AM EST Office [place] [address] Sarah Serra APRN [facility] [place] [address] documented as of this encounter Visit Diagnoses Diagnosis Seizure Other convulsions documented in this encounter Care Teams Abstract Manager Relationship Specialty Start Date End Date Luis Manuel Blanca MD [address] [place] [address] PCP - General Family Medicine 06/24/16 documented as of this encounter
--- OUTSIDE RECORDS SUMMARY | 2024-06-28 22:02 | XMS_ITS | Encounter Summary ---
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; High risk medication use; Lethargy; SOB (shortness of breath); Upper respiratory tract infection, unspecified type; Dysphagia, unspecified type Social History Tobacco Use Types [...] Sign Reading Time Taken Comments Blood Pressure 116/65 11/14/2017 3:41 PM EDT Pulse 77 11/14/2017 3:41 PM EDT Temperature - - Respiratory Rate - - Oxygen Saturation - - Inhaled Oxygen Concentration - - Weight 68 kg (150 lb) 11/14/2017 3:41 PM EDT rep orted Height 147.3 cm (4' 10) 11/14/2017 3:41 PM EDT reported Body Mass Index 31.35 11/14/2017 3:41 PM EDT documented in this encounter Patient Instructions * Patient Instructions* Sarah Serra APRN - 11/14/2017 3:30 PM EDT Please get chest x ray today. Please see your PCP, ask about testing for GI infection. Increase trileptal to 600mg AM 450mg midday and 600mg PM. Labs in 4-5 days documented in this encounter Progress Notes * Sarah Serra APRN - 11/14/2017 3:30 PM EDT Subjective: [facility] OUTPATIENT FOLLOW UP NOTE Patient [...] month: 0 Were seizures disabling? No Pt has been having more seizures. She had a URI which has now resolved but now she is having GI issues and daily diarrhea. 2 years ago she had increased seizures in setting of GI infection, found to be dur to bacteria commonly found in raw meat but caregiver says there is no way pt ate raw meat so she is not sure where it came from, tx with abx at the time and got better. Home maco has been visiting, did swallow study, needs to drink from straw and soft foods now, and has been checking lungs but no concerns there they report. Called PCP and reported sx who scheduled colonoscopy as pt is overdue but this can't be done until december b/c provider out of town. Went down on trileptal at last visit with leslye because level was too high, was doing well until she caught this cold in the beginning of October. Has never really done as well as she previously did on the depakote, they went off of it because they thought it was contributing to GI issues. Social History: Social History Social History ??? Marital status: Single Spouse name: N/A ??? Number of children: N/A ??? Years of education: N/A Occupational History ??? Not on file. Social History Main Topics ??? Smoking status: Never Smoker ??? Smokeless tobacco: Never Used ??? Alcohol use No ??? Drug use: No ??? Sexual activity: Not on file Comment: deferred Other Topics Concern ??? Not on file Social History Narrative Social Factors: QEPILEPSY SOCIAL FACTORS 11/15/17 Employment status: No Currently driving: No Considering No Past Medical History: Diagnosis Date ??? Hyperlipidemia ??? MR (mental retardation) ??? RIA (obstructive sleep apnea) ??? Seizures Current Outpatient Prescriptions on File Prior to Visit Medication Sig Dispense Refill ??? OXcarbazepine (TRILEPTAL) 300 mg Tablet Take 600 mg in AM, 300 mg in noon and 600 mg in PM. 120tablet 5 ??? marijuana Oil - medicinal use Take 5 drops by mouth 2 times daily. Sativa ??? UNABLE TO FIND Take 10 drops by mouth nightly. Med Name: Indica ??? cholecalciferol, Vitamin D3, (VITAMIN D) 1,000 unit Capsule Take 1 capsule by mouth 2 times daily. 60 capsule 5 ??? cloBAZam (ONFI) 10 mg Tablet Take 2 tablets by mouth nightly. 60 tablet 5 ??? QUEtiapine (SEROQUEL) 50 mg Tablet Take 50 mg by mouth nightly. ??? LORazepam (ATIVAN) 1 mg Tablet Take 1-2 tablets at onset of seizure symptoms, if ineffective after 30 minutes may repeat dose. If still not effective please call neurologist conductor/engineer. No more wnct0zd daily. 45 tablet 3 ??? UNABLE TO FIND Med Name: Hemp Oil ??? melatonin 3 mg Tablet Take 6 mg by mouth nightly. ??? sertraline (ZOLOFT) 100 mg Tablet Take 1 tablet by mouth daily. 90 tablet 0 ??? rufinamide (BANZEL) 400 mg Tablet Take 3 tablets by mouth 3 times daily. Reduce by 1 tablet perweek starting 03/25/16 (Patient taking differently: Take 1,200 mg by mouth 3 times daily.) 270 tablet 5 ??? PHENobarbital (LUMINAL) 60 mg Tablet Take 2 tablets by mouth nightly. 360 tablet 1 ??? diaZEPam (DIASTAT ACUDIAL) 12.5-15-17.5-[address] 15 mg rectally as needed (1 syringe forcluster of seizures.). if ineffective after 30 minutes may repeat dose. If still not effective please call neurologist conductor/engineer. 1 kit 3 ??? furosemide (LASIX) 20 mg Tablet Take 20 mg by mouth daily. ??? loratadine (CLARITIN) 10 mg Tablet Take 10 mg by mouth daily as needed for Allergies. ??? esomeprazole (NEXIUM) 40 mg Capsule, Delayed Release(E.C.) Take 40 mg by mouth 2 times daily. Reported on 11/18/2016 ??? ferrous sulfate 325 mg (65 mg iron) Tablet Take 325 mg by mouth daily. ??? midazolam, PF, (VERSED) 5 mg/mL Solution 1 mL by Nasal route daily as needed (give 1 ml via atomizer for cluster of seizures). 2 mL 3 ??? atorvastatin (LIPITOR) 40 mg tablet Take 40 mg by mouth daily. No current facility-administered medications on file prior to visit. Allergies Allergen Reactions ??? Amoxicillin-Pot Clavulanate Rash ??? Risedronate Sodium Nausea And Vomiting Objective: Physical Exam: Vitals: Temp: -- Heart Rate: [77] Resp: -- BP: (116)/(65) SpO2: -- Heart Rate from SPO2: -- Awake, alert, of apparent age, well dressed and groomed, she has mild pallor and looks to have lostsome weight since last I saw her in clinic (as well as in same day surgery but that is more difficult to performance management consultant at pt was in bed with hospital gown), intermittently says brief repetitive words of phrases, dysphasia worse today, sounds as if having difficultly fully clearing secretions from throat, sitting in wheelchair, interacting with caregiver and provider but appears to take much effort and fatigue quickly, can follow some simple commands but not others, comprehension limited, mood is good. Overall she just appears fairly sick and not like herself despite he best efforts to continue to engage with those around her. Procedure: VNS interrogated, parameters as found below: Output current: 2.0 milliamps Signal frequency: 20 Hertz Pulse Width:500 microseconds On time:14 sec Off time:1.1 min Autostim activated current: 2.0 mA Autostim on time: 30 seconds. Autostim pulse width: 500 microseconds Magnet activated current: 2.25 mA Magnet on time: 30 seconds. Magnet pulse width: 500 microseconds Assessment and Plan: - I advised caregiver that I am concerned that Alix does not look like herself and I think she needs to be evaluated by her PCP, specifically the provider she has seen in the past so they have reference for comparison. As this occurred before in setting of bacterial GI infection needing abx for txthey should discuss whether a repeat stool sample is appropriate. Given recent URI, increased swallow restrictions, and obvious difficulty with clearing secretions today in clinic I think it is not unreasonable for them to get a CXR while they are here as she is at high risk for aspiration pneumonia, especially as she apparently has a difficult time tolerating it at OSH closer to home. - Epilepsy: I suspect that increased seizures are related to underlying infection and will not resolve until infection is addressed. However, in the meantime we will adjust her medications in hopes of getting them under somewhat better control until infection can be addressed. Trileptal level high in past at dose of 600mg TID, but plently of room to go up at 600/300/600. Therfore we will increaseto 600/450/600 and recheck level in 4-5 days. Once patient is better we may re-evaluate medicationsand consider whether or not to replace trileptal with aptiom, as it will likely cause less sedation, but I would not want to make any big changes at this time if we can avoid it. - Screen for medication toxicity: labs later this week. - The patient is currently not a [...] Cinthya in clinic today. Sarah Serra APRN [facility] Department of Neurology documented in this encounter Plan of Treatment Upcoming Encounters Date Type Department Care Team (Late st Contact Info) Description 08/06/2024 11:00 AM EST Office [place] [address] Sarah Serra APRN [facility] [place] [address] documented as of this encounter Results * XR Chest PA & Lateral (Generic) (11/14/2017 5:30 PM EDT) Anatomical Region Laterality Modality Chest N/A Digital Radiogra phy Impressions 11/14/2017 5:47 PM EDT Low lung volumes, no specific radiographic evidence of aspiration sequela or pneumonia. Narrative 11/14/2017 5:47 PM EDT EXAMINATION: XR CHEST PA AND LATERAL (GENERIC) CLINICAL HISTORY: R/O aspiration pnemonia. TECHNIQUE: AP and lateral sitting semiupright chest radiograph; 2 views COMPARISON: Chest radiograph July 09, 2016 FINDINGS: Left anterior chest wall vagus nerve stimulator is in place, the lead is only partially visualized. Low lung volumes. No pulmonary consolidation, pneumothorax or pleural effusion. Cardiac silhouette, bell and pulmonary vasculature are within normal limits for the degree of inspiration and technique. Procedure Note Pete Melendrez MD - 11/14/2017 EXAMINATION: XR CHEST PA AND LATERAL (GENERIC) CLINICAL HISTORY: R/O aspiration pnemonia. TECHNIQUE: AP and lateral sitting semiupright chest radiograph; 2 views COMPARISON: Chest radiograph July 09, 2016 FINDINGS: Left anterior chest wall vagus nerve stimulator is in place, the lead isonly partially visualized. Low lung volumes. No pulmonary consolidation, pneumothorax or pleuraleffusion. Cardiac silhouette, bell and pulmonary vasculature are within normallimits for the degree of inspiration and technique. IMPRESSION Low lung volumes, no specific radiographic evidence of aspiration sequelaor pneumonia. 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 High risk medication use Encounter for long-term (current) use of other medications Lethargy Other malaise and fatigue SOB (shortness of breath) Shortness of breath Upper respiratory tract infection, unspecified type Dysphagia, unspecified type SOB (shortness of breath) Shortness of breath Upper respiratory tract infection, unspecified type Dysphagia, unspecified type documented in this encounter Care Teams Wood Last Maker Relationship Specialty Start Date End Date Luis Manuel Blanca MD [address] [place] [address] PCP - General Family Medicine 06/24/16 documented as of this encounter
--- OUTSIDE RECORDS SUMMARY | 2024-06-28 22:02 | XMS_ITS | Encounter Summary ---
[place] [address] Care Team Providers Care Cable Tester Name Role Phone Luis Manuel Blanca MD Primary Care Provider [phone] Reason for Visit * Reason Onset Date Comments Medication Refill 09/03/2018 Encounter Details Date Type Department Care Team (Late st Contact Info) Description 09/03/2018 Telephone [place] [id number] Sarah Serra APRN [facility] [place] [address] Medication Refill Social History Tobacco Use Types [...] Telephone Encounter - Lili Otero RN - 09/04/2018 4:09 PM EST Call placed to patient/caller. Spoke to Lulu, made aware that Midazolam is needing PA approval. Verbalized understanding. * Telephone Encounter - Falguni Parker - 09/03/2018 10:46 AM EST Clinical Ammunition Officer message Caller: Lulu arellano If not Pt / Relation to pt: Patient's caregiver Call back number: Best time to reach caller if there are questions with medication refill request: Name of Med: Midazolam Strength of Pills: hcl 5mg'ml Dosing Directions: 1 ml via atomizer as needed for cluster seizures 30 or 90 Day: 30 Pharmacy: [facility] [place], [place] Last Appointment:05/15 Next Appointment:11/20 Is Patient out of Medication?: Medication outdated documented in this encounter Plan of Treatment Upcoming Encounters Date Type Department Care Team (Late st Contact Info) Description 08/06/2024 11:00 AM EST Office Visit [place] [address] Sarah Serra, [facility] [place] [address] documented as of this encounter Visit Diagnoses Not on filedocumented in this encounter Care Teams Cable Tester Relationship Specialty Start Date End Date Luis Manuel Blanca MD [address] [place] [address] PCP - General Family Medicine 06/24/16 documented as of this encounter
--- OUTSIDE RECORDS SUMMARY | 2024-06-28 22:02 | XMS_ITS | Encounter Summary ---
[place] [address] Care Team Providers Care Zipper Joiner Name Role Phone Luis Manuel Blanca MD Primary Care Provider [phone] Encounter Details Date Type Department Care Team (Late st Contact Info) Description 01/28/2019 Specialty [place] [address] Arnel Benitez [facility] Social History Tobacco [...] this encounter Progress Notes * Arnel Benitez [facility] - 01/28/2019 10:15 AM EDT Specialty Pharmacy Consultation; Arnel Benitez RPH Comprehensive Medication Management (CMM) Cinthya Brown Diagnosis: Epilepsy with status epilepticus Therapy Start Date: approx 01/30/19 or as advised by clinic Contact in person or via telephone: telephone Ms. Cinthya Brown is a 58 y.o. (1960) female who was contacted in regard to specialty medication. Spoke with caregiver. Caregiver name: Lulu regarding EPIDIOLEX . A review of the medicationtherapy was performed. The medication was filled as scheduled, and all medication related questionsand concerns were addressed. The specialty pharmacy staff will follow up with the patient 5-7 days prior to next refill. Is the patient willing to proceed with the Clinical Assessment? Yes Summary and Recommendations: Reviewed new Epidiolex order and provided new start consultation to Lulu, caregiver for Cinthya. Reviewed label, titratration, warnings & precautions (including baseline, 1 month, 3 month LFTs expected), side effect profile, how to store and dose, use of the dosing syringe and cleaning after use, how the medication comes (multiple glass bottles). We also verified the allergy list and reconciled medications. 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 So the clinical presentation of these side effects may not be easy to identify. Urged Heidi to call in any clinical changes which appear to be new. Since the patient was already using Kelly's Web CBD and not having any problems, we are optimistic that this will continue when the switch is made toEpidiolex. To that point, pharmacist urged patient not to overlap the two agents, but that stoppingthe Kelly's web and starting Epidiolex the following day should be an acceptable transition. Jerri discussed the recommendation to taper rather than fully stopping the medication, if it ever came to that. Lulu's goal for Cinthya is simply to reduce the number of seizures, but he has a secondary goal of tapering one or more of the other AEDs being used, if possible and appropriate. Clinic follow-up needed: yes - Cinthya will have regular fuv with clinic Allergies and Drug intolerance: Allergies Allergen Reactions ??? Amoxicillin-Pot Clavulanate Rash ??? Risedronate Sodium Nausea And Vomiting Special Dietary or Hydration Requirements: yes - in context of giving med with high fat / calorie food There is no height or weight on file to calculate BMI. Medication Reconciliation Discrepancies (compared to [facility] med list) - Quetiapine clarified as only 1/2 tab of 25mg (I.e. Only 12.5mg nightly) Medication Adherence Demonstrates understanding of importance of adherence: yes Informant: caregiver Adherence tools used: directed education Confirmed plan for next specialty medication refill: pick-up at pharmacy Medication List: Current Outpatient Medications Medication Sig Note Dispense Refill ??? cannabidiol, CBD, extract (EPIDIOLEX) 100 mg/mL Solution Take 1.82 mLs by mouth See Admin Instructions. Week 1 - 1.8 ml BID; Week 2 & thereafter - 3.6 ml BID 178 mL 0 ??? cholecalciferol, Vitamin D3, (VITAMIN D) [...] If still not effective please call neurologist franchise consultant. 1 kit 3 ??? midazolam, PF, [...] If still not effective please call neurologist franchise consultant. Max 4mg daily. Take 0.5-1mg prior [...] times daily. 3.6 ML BID (maintenance dose) (Patient not taking: Reported on 01/28/2019) 218 mL 3 ??? QUEtiapine (SEROQUEL) 50 mg Tablet Take 25 mg by mouth nightly. 01/28/2019: Takes one-half of 25mg tablet nightly (12.5mg nightly) No current facility-administered medications for this visit. [...] adverse drug events identified: 0 Time spent: 46 - 60 min Treatment Outcomes 01/28/2019 Disease progression: Stable Patient Overall Status: Stable [...] and mitigation strategies, and interruptions in therapy: yes Physical Assessment: Functional limitations identified: yes - pt in w/c but has caregiver Cognitive limitations identified: yes - cognitive deficits noted Concern regarding orientation/memory: yes - however, less important in context of having caregiver Concern with reasoning/judgement: yes - however less important in context of having caregiver Is patient a fall risk: yes - however pt uses w/c and if not, has multiple aides Other needed information: no Social Assessment: Does the patient have a primary resident care assistant? yes - Kim Patient has emergency contact on file: Yes Does patient need referral to social staff worker: No Does patient need referral to advocacy group: No Physical and Home Health Assessment: Is the patient able to store their medication as directed? Yes Is the patient in a safe home environment? Yes Do you have a support network? Yes Reviewed potential home safety hazards: Yes Economic Assessment: Patient is agreeable to medication copay: Yes Copay Amount: 0 Day Supply: 28 Date Needed: approx 01/30/19 Copay assistance required: no Therapy Assessment: Current Medication Dosing/Route/Frequency: Take 1.8ml by mouth twice a day for 1 week, and then take 3.6ml twice a day thereafter Appropriate Therapy: Yes Expected Outcome: reduce seizure frequency Patient's goals: Goals ??? Home Medication Compliance and Understanding Patient's specific desired goal: reduce number of seizures, with secondary goal of being able to taper some of the other AEDs being used Measured by: seizure record, side effects exhibited Time-frame to meet goal: 3-6 months Care Plan Reviewed and Approved by both Pharmacist and Patient: Yes Patient's Problems/Needs: Epilepsy / frequent seizures Monitoring requirements for prescribed medication: benefit / outcome, side effects, LFTs, adherence Interventions (if applicable): No Educational information or adherence tools provided: Yes Additional equipment/supplies required: no Pharmacist follow-up needed: Yes Informed patient of specialty pharmacy services: Yes -Patient will be provided with welcome packet: Yes Date to be provided: 01/29/19 Delivery Method: POS -Patient will be provided with Rights & Responsibilities: Yes Date to be provided: 01/29/19 Delivery Method: POS -Patient is [...] were made at the appointment and that [facility] isproviding recommendations (summary located at top of note) for provider review and follow up. Arnel Benitez RPH 01/28/19 11:01 AM * Arnel Benitez RPH - 01/28/2019 10:15 AM EDT Note - also reviewed administration of Epidiolex as recommended by clinic, to be taken with high fat / high calorie foods. Caregiver endorsed this. documented in this encounter Plan of Treatment Upcoming Encounters Date Type Department Care Team (Late st Contact Info) Description 08/06/2024 11:00 AM EST Office [place] [address] Sarah Serra APRN [facility] [place] [address] documented as of this encounter Goals Goal [...] medications documented in this encounter Care Teams Zipper Joiner Relationship Specialty Start Date End Date Luis Manuel Blanca MD [address] [place] [address] [address] [facility] [place] [address] PCP - General Family Medicine 06/24/16 documented as of this encounter
--- OUTSIDE RECORDS SUMMARY | 2024-06-28 22:02 | XMS_ITS | Encounter Summary ---
Author Organization [facility] [place] [address] [place] [address] Care Team Providers Care Credit Collections Clerk Name Role Phone Luis Manuel Blanca MD Primary Care Provider [phone] Encounter Details Date Type Department Care Team (Late st Contact Info) Description 09/27/2017 12:00 PM EST - 09/27/2017 1:28 PM EST Surgery [place] [id number] Jono Lynn MD [facility] [place] [address] PLACEMENT CRANIAL NEUROSTIMULATOR (WRVU 6.05) Social History Tobacco Use Types Packs/Day Years [...] Sign Reading Time Taken Comments Blood Pressure 98/60 09/27/2017 11:07 AM EST Pulse 69 09/27/2017 11:07 AM EST Temperature 36 ??C (96.8 ??F) 09/27/2017 11:07 AM EST Respiratory Rate 20 09/27/2017 11:07 AM EST Oxygen Saturation 97% 09/27/2017 11:07 AM EST Inhaled Oxygen Concentration - - Weight 68 kg (150 lb) 09/27/2017 11:07 AM EST Height 147.3 cm (4' 10) 09/27/2017 11:07 AM EST Body Mass Index 31.35 09/27/2017 11:07 AM EST documented in this encounter Discharge Summaries * Azam Eckert MD - 09/27/2017 12:36 PM EST Patient Name: Cinthya Brown Patient Age: 57 y.o. Admit date: 09/27/2017 Discharge Date and Time: 09/27/2017 Attending Physician: Jono Lynn MD Discharging Provider: Azam Eckert MD Discharging Service: NEUROSURGERY Operations/Major Procedures: Procedure(s) (LRB): PLACEMENT CRANIAL NEUROSTIMULATOR (WRVU 6.05) (N/A) ELEC ANALYSIS IMPL NEUROSTIM\PULSE GEN SYS-W/ INTRAOP OR SUBSQ PROGRAMMING (WRVU 0.78) (Left) Active Hospital Problems: There are no hospital problems to display for this patient. Active Non Hospital Problems: Active Non-Hospital Problems Diagnosis ??? CAP (community acquired pneumonia) ??? Epilepsy with status epilepticus ??? Seizure ??? Status epilepticus ??? Sleep apnea ??? Mental retardation History of Presentation: Per review of relevant records Patient presents for scheduled VNS IPG replacement today. Consent obtained from guardian. Please refer to last office visit in eDH for further details. ?? Denies headache, nausea, vomiting, numbness, weakness, paresthesias, LOC, seizures, difficulties with balance, visual or auditory symptoms. Denies bowel or bladder symptoms. Hospital Course: Patient presented to [facility] [place] [facility] and underwent the above procedure. The patient was wokenfrom anesthesia and taken to the Same Day recovery area having suffered no untoward event. She recovered well and was deemed safe for discharge home. Her pain is well controlled with medications by mouth, he is ambulating independently, and toleration oral intake. Important Studies and Lab Data: Labs: No results found for this or any previous visit (from the past 24 hour(s)). Studies: No results found. Discharge Condition: Good Discharge to: Home Future Appointments and Orders Future Appointments Provider Department Dept Phone 11/14/2017 3:30 PM Sarah Serra APRN [facility] [phone] Discharge Medications: Your Medications Continued medications with new dosing Dose Details rufinamide 400 mg Tab Commonly known as: BANZEL Take 3 tablets by mouth 3 times daily. Reduce by 1 tablet per week starting 03/25/16 What changed: additional instructions 1200 mg Quantity: 270 tablet Refills: 5 Continued medications, unchanged Dose Details atorvastatin 40 mg Tab Commonly known as: LIPITOR Take 40 mg by mouth daily. 40 mg Refills: 0 cholecalciferol (Vitamin D3) 1,000 unit Cap Commonly known as: Vitamin D Take 1 capsule by mouth 2 times daily. 1000 Units Quantity: 60 capsule Refills: 5 cloBAZam 10 mg Tab Commonly known as: ONFI Take 2 tablets by mouth nightly. 20 mg Quantity: 60 tablet Refills: 5 diaZEPam 12.5-15-17.5-20 mg Kit Commonly known as: DIASTAT ACUDIAL Place 15 mg rectally as needed (1 syringe for cluster of seizures.). if ineffective after 30 minutes may repeat dose. If still not effective please call neurologist instructional systems design consultant. 15 mg Quantity: 1 kit Refills: 3 esomeprazole 40 mg Cpdr Commonly known as: NexIUM Take 40 mg by mouth 2 times daily. Reported on 11/18/2016 40 mg Refills: 0 ferrous sulfate 325 mg (65 mg iron) Tab Take 325 mg by mouth daily. 325 mg Refills: 0 furosemide 20 mg Tab Commonly known as: LASIX Take 20 mg by mouth daily. 20 mg Refills: 0 loratadine 10 mg Tab Commonly known as: CLARITIN Take 10 mg by mouth daily as needed for Allergies. 10 mg Refills: 0 LORazepam 1 mg Tab Commonly known as: ATIVAN Take 1-2 tablets at onset of seizure symptoms, if ineffective after 30 minutes may repeat dose. If still not effective please call neurologist instructional systems design consultant. No more than 4mg daily. Quantity: 45 tablet Refills: 3 marijuana Oil - medicinal use Take 5 drops by mouth 2 times daily. Sativa 5 drop Refills: 0 melatonin 3 mg Tab Take 6 mg by mouth nightly. 6 mg Refills: 0 midazolam (PF) 5 mg/mL Soln Commonly known as: VERSED 1 mL by Nasal route daily as needed (give 1 ml via atomizer for cluster of seizures). 5 mg Quantity: 2 mL Refills: 3 OXcarbazepine 300 mg Tab Commonly known as: TRILEPTAL Take 600 mg in AM, 300 mg in noon and 600 mg in PM. Quantity: 120 tablet Refills: 5 PHENobarbital 60 mg Tab Commonly known as: LUMINAL Take 2 tablets by mouth nightly. 120 mg Quantity: 360 tablet Refills: 1 QUEtiapine 50 mg Tab Commonly known as: SEROquel Take 50 mg by mouth nightly. 50 mg Refills: 0 sertraline 100 mg Tab Commonly known as: ZOLOFT Take 1 tablet by mouth daily. 100 mg Quantity: 90 tablet Refills: 0 * UNABLE TO FIND Med Name: Hemp Oil Refills: 0 * UNABLE TO FIND Take 10 drops by mouth nightly. Med Name: Indica 10 drop Refills: 0 * Notice: This list has 2 medication(s) that are the same as other medications prescribed for you. Read the directions carefully, and ask your doctor or other care provider to review them with you. Updated Allergies/ADRs: Allergies Allergen Reactions ??? Amoxicillin-Pot Clavulanate Rash ??? Risedronate Sodium Nausea And Vomiting Follow-up Recommendations for Providers: Please have the patient follow up with her Neurologist as scheduled. Incision: Absorbable sutures Outpatient referrals: You have been referred to the following clinics for outpatient follow-up. Please call the office ifyou have not received an appointment in the mail within 1 week of discharge from the hospital. Neuro-oncology [phone] Radiation oncology [phone] Endocrinology [phone] Infectious disease [phone] Neurology [phone] Hematology/Oncology [phone] Plastic Surgery [phone] Trauma/General Surgery [phone] Urology [phone] Instructions Given to Patient at Discharge: Patient Instructions VNS BATTERY CHANGE DISCHARGE INSTRUCTIONS PRESCRIPTION INSTRUCTIONS: Please see the medication reconciliation list on this discharge summary for a current list of your medications. Stop the use of blood thinning medications until instructed otherwise by your surgical team. This includes medications known as antiplatelet, anticoagulant, and non-steroidal anti-inflammatory (NSAIDs) drugs. Common psgj-egy-dadpjzl medications which should be avoided include Aspirin, ibuprofen, and naproxen among others. These medications are sometimes combined with other drugs or are sold undera trade name. Common prescription medications which should be avoided include Plavix (clopidogrel) and Coumadin (warfarin) among others. The following medications are commonly prescribed after surgery. An [X] indicates that these medications have been prescribed for you. [ ] Opioids - Pain relief: medications such as Roxicodone (oxycodone) or Dilaudid (hydromorphone) Opioids are commonly prescribed after surgery for severe pain. DO NOT use alcohol, drive, or operate heavy machinery while taking these medications. These medications may cause constipation. Stool softeners - Constipation relief: medications such as docusate or senakot Stool softeners are commonly used after surgery to help make stools easier to pass. These medications can be obtained bzdj-nny-fxfblfk and their use is recommended on an as needed basis for hard or difficult stools. They should be discontinued for loose stools and diarrhea. WHEN TO SEEK MEDICAL CARE: - Signs or symptoms of an infection - Fever over 101F - Redness, swelling, or increasing pain around your incision - Drainage of pus, blood, or clear fluid from your incision - New neurologic symptoms - Worsening headaches not controlled with your pain medication - Drowsiness, confusion, and lethargy - Visual changes - Difficulty speaking or slurred speech - Facial droop - New weakness or sensory changes - New unsteadiness when walking - Seizures - Constipation not relieved by diet and over the counter stool softeners and laxatives - Nausea/vomiting (upset stomach) not controlled with your anti-nausea medication - Symptoms of a deep venous thrombosis (DVT) or pulmonary embolism (PE): -swelling/warmth/redness of the leg -pain in the leg, which can be worse with standing or walking -chest pain or shortness of breath To help prevent a DVT: -Exercise regularly. Walking, at least several times daily, is helpful. -Ankle pump exercises (like pressing and releasing the gas pedal) should be done regularly. -Keep hydrated with water or other clear liquids (coffee/tea/cola can dehydrate you). -Avoid alcohol and crossing your legs. -Remember not to sit or lay in bed, while awake, for prolonged amounts of time. WOUND CARE: - Keep incisional site clean and dry. If you have a dressing, it can be removed 2 days after surgery. - You may shower and shampoo incisional site, per your usual routine, 4 days after surgery. - Your incisions were closed with surgical glue and absorbable sutures. The sutures will dissolve on their own and do not need to be removed. DIET: - You may resume your usual diet. - A well-balanced diet is recommended for wound healing. - Prune juice or prunes can be added to your diet to assist with any constipation. ACTIVITY: - You may increase your activities as tolerated. - Restrict strenuous activity (such as running, jumping, jogging, shoveling, etc.) until cleared byyour surgical team FOLLOW UP PLAN: [ X ] Your scheduled postoperative follow up appointments are listed under the Future Appointmentsand Orders section of this document HOW TO REACH NEUROSURGERY Contact your Doctor Office Hours: Monday through Monday, 8am-5pm. Call . On weekends or after office hours: Call [phone] and ask the mill crane operator to page the Neurosurgery Resident instructional systems design consultant. IMPORTANT PHONE NUMBERS: Outpatient Nurse ([place]) Inpatient Nurses Neurosurgical Resident On-Call (after 5pm or before 8am) Neurosurgery offices (Monday through Monday between 8am-5pm): Adult Neurosurgery Dr. Jono Noe Pediatric Neurosurgery Dr. Ethan Vogt Mid-level practitioners Ethan Sanchez, Physician Clinical Research Coordinator Zeke Pride, Physician Clinical Research Coordinator May Borja, Nurse Practitioner Tiff Lyon, Nurse Practitioner * Your surgeon may not be call circuit worker, so be ready to tell about yourself and your surgery when you call, especially after hours or on the weekend. Azam Eckert MD 09/27/2017 documented in this encounter Discharge Instructions * Patient Instructions* Azam Eckert MD - 09/27/2017 12:38 PM EST VNS BATTERY CHANGE DISCHARGE INSTRUCTIONS PRESCRIPTION INSTRUCTIONS: Please see the medication reconciliation list on this discharge summary for a current list of your medications. Stop the use of blood thinning medications until instructed otherwise by your surgical team. This includes medications known as antiplatelet, anticoagulant, and non-steroidal anti-inflammatory (NSAIDs) drugs. Common fupq-hvc-fsxcyau medications which should be avoided include Aspirin, ibuprofen, and naproxen among others. These medications are sometimes combined with other drugs or are sold undera trade name. Common prescription medications which should be avoided include Plavix (clopidogrel) and Coumadin (warfarin) among others. The following medications are commonly prescribed after surgery. An [X] indicates that these medications have been prescribed for you. [ ] Opioids - Pain relief: medications such as Roxicodone (oxycodone) or Dilaudid (hydromorphone) Opioids are commonly prescribed after surgery for severe pain. DO NOT use alcohol, drive, or operate heavy machinery while taking these medications. These medications may cause constipation. Stool softeners - Constipation relief: medications such as docusate or senakot Stool softeners are commonly used after surgery to help make stools easier to pass. These medications can be obtained seoc-gjt-rsnjtgh and their use is recommended on an as needed basis for hard or difficult stools. They should be discontinued for loose stools and diarrhea. WHEN TO SEEK MEDICAL CARE: - Signs or symptoms of an infection - Fever over 101F - Redness, swelling, or increasing pain around your incision - Drainage of pus, blood, or clear fluid from your incision - New neurologic symptoms - Worsening headaches not controlled with your pain medication - Drowsiness, confusion, and lethargy - Visual changes - Difficulty speaking or slurred speech - Facial droop - New weakness or sensory changes - New unsteadiness when walking - Seizures - Constipation not relieved by diet and over the counter stool softeners and laxatives - Nausea/vomiting (upset stomach) not controlled with your anti-nausea medication - Symptoms of a deep venous thrombosis (DVT) or pulmonary embolism (PE): -swelling/warmth/redness of the leg -pain in the leg, which can be worse with standing or walking -chest pain or shortness of breath To help prevent a DVT: -Exercise regularly. Walking, at least several times daily, is helpful. -Ankle pump exercises (like pressing and releasing the gas pedal) should be done regularly. -Keep hydrated with water or other clear liquids (coffee/tea/cola can dehydrate you). -Avoid alcohol and crossing your legs. -Remember not to sit or lay in bed, while awake, for prolonged amounts of time. WOUND CARE: - Keep incisional site clean and dry. If you have a dressing, it can be removed 2 days after surgery. - You may shower and shampoo incisional site, per your usual routine, 4 days after surgery. - Your incisions were closed with surgical glue and absorbable sutures. The sutures will dissolve on their own and do not need to be removed. DIET: - You may resume your usual diet. - A well-balanced diet is recommended for wound healing. - Prune juice or prunes can be added to your diet to assist with any constipation. ACTIVITY: - You may increase your activities as tolerated. - Restrict strenuous activity (such as running, jumping, jogging, shoveling, etc.) until cleared byyour surgical team FOLLOW UP PLAN: [ X ] Your scheduled postoperative follow up appointments are listed under the Future Appointmentsand Orders section of this document documented in this encounter Medications at Time of Discharge Medication Sig Dispensed Refills Start Date End Date QUEtiapine (SEROQUEL) 50 mg Tablet Take 150 [...] tablet Take 40 mg by mouth daily. 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 120 tablet 5 08/24/2017 11/14/2017 cholecalciferol, Vitamin D3, (VITAMIN D) 1,000 unit Capsule Take 1 capsule by mouth 2 times daily. 60 capsule 5 04/04/2017 11/20/2018 cloBAZam (ONFI) 10 mg Tablet Take 2 tablets by mouth nightly. 60 tablet 5 03/29/2017 11/20/2018 LORazepam (ATIVAN) 1 mg TabletIndications:Epi lepsy seizure, generalized, convulsive Take 1-2 tablets at onset of seizure symptoms, if ineffective after 30 minutes may repeat dose. If still not effective please call neurologist instructional systems design consultant. No more than 4mg daily. 45 tablet 3 03/20/2017 05/15/2018 melatonin 3 mg Tablet Take 6 mg by mouth nightly. 11/30/2023 sertraline (ZOLOFT) 100 mg Tablet Take 1 tablet by mouth daily. 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 Reduce by 1 tablet per week starting 03/25/16 270 tablet 5 03/11/2016 11/20/2018 PHENobarbital (LUMINAL) 60 mg Tablet Take 2 tablets by mouth nightly. 360 tablet 1 03/11/2016 05/15/2018 diaZEPam (DIASTAT ACUDIAL) 12.5-15-17.5-[address] 15 mg rectally as needed (1 syringe for cluster of seizures.). if ineffective after 30 minutes may repeat dose. If still not effective please call neurologist instructional systems design consultant. 1 kit 3 01/06/2016 11/20/2018 furosemide (LASIX) 20 mg Tablet Take 20 mg by mouth daily. 07/19/2022 midazolam, PF, (VERSED) 5 mg/mL Solution 1 mL by Nasal route daily as needed (give 1 ml via atomizer for cluster of seizures). 2 mL 3 08/27/2014 08/31/2018 documented as of this encounter H&P Notes * Azam Eckert MD - 09/27/2017 12:21 PM EST Neurosurgery Pre-operative H&P 09/27/2017 Cinthya Brown [id number] CC: Epilepsy, VNS IPG change HPI: Patient presents for scheduled VNS IPG replacement today. Consent obtained from guardian. Denies headache, nausea, vomiting, numbness, weakness, paresthesias, LOC, seizures, difficulties with balance, visual or auditory symptoms. Denies bowel or bladder symptoms. PMH/PSH: Past Medical History: Diagnosis Date ??? Hyperlipidemia ??? MR (mental retardation) ??? RIA (obstructive sleep apnea) ??? Seizures History reviewed. No pertinent surgical history. Medications: No current facility-administered medications on file prior to encounter. Current Outpatient Prescriptions on File Prior to Encounter Medication Sig Dispense Refill ??? marijuana Oil - medicinal use Take [...] If still not effective please call neurologist instructional systems design consultant. No more ozpv0le daily. 45 tablet 3 ??? UNABLE TO [...] by mouth nightly. 360 tablet 1 ??? furosemide (LASIX) 20 mg Tablet Take 20 mg by mouth daily. ??? esomeprazole (NEXIUM) 40 mg Capsule, Delayed Release(E.C.) Take 40 mg by mouth 2 times daily. Reported on 11/18/2016 ??? ferrous sulfate 325 mg (65 mg iron) Tablet Take 325 mg by mouth daily. ??? atorvastatin (LIPITOR) 40 mg tablet Take 40 mg by mouth daily. ??? diaZEPam (DIASTAT ACUDIAL) 12.5-15-17.5-[address] 15 mg rectally as needed (1 syringe forcluster of seizures.). if ineffective after 30 minutes may repeat dose. If still not effective please call neurologist instructional systems design consultant. 1 kit 3 ??? loratadine (CLARITIN) 10 mg Tablet Take 10 mg by mouth daily as needed for Allergies. ??? midazolam, PF, (VERSED) 5 mg/mL Solution 1 mL by Nasal route daily as needed (give 1 ml via atomizer for cluster of seizures). 2 mL 3 Allergies: NKDA Family Hx: Reviewed, noncontributory ROS: Constitutional: No recent weight loss / fevers / chills / night sweats. HEENT: No recent visual changes / hearing changes. Cardiovascular: No chest pain / palpitations. Pulmonary: No shortness of breath / cough GI: No abdominal pain / vomiting / change in bowel pattern : No dysuria / urinary retention / urinary incontinence. Physical Exam: Vital Signs: BP 98/60 Pulse 69 Temp 36 ??C (96.8 ??F) (Temporal) Resp 20 Ht 147.3 cm (4' 10) Wt 68 kg (150 lb) SpO2 97% BMI 31.35 kg/m2 General: NAD. CVS: RRR Resp: CTAB HEENT: Atraumatic, normocephalic Neuro: Mental Status/Cognitive: MR, Makes few sounds Cranial Nerves: CN II - Visual acuity and meza grossly intact, PERR Motor: No pronator drift. VICTOR. Sensation in the extremities: Light touch: Intact x 4 Labs: No results for input(s): NA, K, CL, CO2, BUN, CREATININE, GLUCOSE, CALCIUM, MAGNESIUM, PHOS in the last 72 hours. Invalid input(s): CAION No results for input(s): WBC, HGB, HCT, MCV, PLATELET in the last 72 hours. Invalid input(s): RDW No results for input(s): PT, INR, FIBRINOGEN in the last 72 hours. Invalid input(s): PROTHROMBIN No results for input(s): AST, ALT, ALKPHOS, ALB, LIPASE in the last 72 hours. Invalid input(s): TBILI, TP No results for input(s): HDL in the last 72 hours. Invalid input(s): CHOLESTEROL, LDL, TG Assessment and Plan: -Pre-operative labs -OR planning documented in this encounter Miscellaneous Notes * Op Note - Jono Lynn MD - 09/27/2017 3:23 PM EST [facility] [place] Operative Note Patient Name: Cinthya Brown : [id number] MR#: [id number] Case Date: 09/27/2017 Surgeon: Surgeon(s) and Role: * Jono Lynn MD - Primary * Azam Eckert MD - Resident-Surgeon Christiano Preoperative diagnosis: epilepsy Postoperative diagnosis: epilepsy Procedures: 1) Removal and replacement of left vagus nerve stimulator pulse generator with connection to ONE electrode array 2) Electronic analysis of pulse generator with intraop programming Anesthesia: General Estimated Blood Loss: 10 cc Specimens removed during surgery: None Drains: None Surgical Closure: Primary Closure - closure of ALL tissue levels during the original surgery regardless of wires, wickes, drains, or other devices extruding through the incision Disposition: awakened from anesthesia, extubated and taken to the recovery room in a stable condition, having suffered no apparent untoward event. Condition: doing well without problems (Please see the Surgical Encounter Summary for any Implant and Specimen details pertinent to this patient.) HPI/Surgical Indications: 57 yo woman with medically refractory epilepsy s/p VNS implant, now with pulse generator depleted and requiring replacement. Procedure Description: The patient was brought to the operating room and transferred from the stretcher to the operating room table. She was monitored by the anesthesia team. She was intubated by the anesthesia team. She was then positioned supine with her head resting on a gel donut, turned to the right side. All pressure points were well padded. Pre-operative antibiotics were given. The prior VNS incision was located on the left chest and marked. The area was then prepped and draped in the usual sterile fashion. A [facility] mandated hard-stop time out was then performed, confirming the patient's name, procedure, laterality, and imaging. We then began by injecting local anesthetic, 0.5% marcaine, along our planned incision. We then incised along the old incision using a #10 blade. Hemostasis was obtained via bipolar cautery. We then used blunt dissection to dissect in the pocket until we encountered the capsule around the previous battery. The capsule was opened. We then removed the depleted Model 103 battery and using the included screwdriver, removed the electrode lead from the old battery, which was then r emoved from the field. This was then connected to a new Model 106 pulse generator. The lead was secured to the battery using the included screwdriver. The pocket was copiously irrigated with bacitracin irrigation. The excess wire was coiled behind the battery and the battery was replaced in to the pocket. It was tested and found to be working correctly with appropriate impedances. We then interrogated and programmed heart rate detection and VNS stimulation settings. The pocket was closed using interrupted 3-0 vicryl sutures, followed by a layer of deep dermal 3-0 vicryl sutures, and finally, subcutaneous running 4-0 vicryl rapide, followed by dermabond. A sterile dressing was applied over th e incision. The patient was then awakened from anesthesia and extubated. She was then taken to the recovery room. Infection Bundle used? See Brief Op note Attestation: Case Date: 09/27/2017 I was present and I participated during the entire procedure (does not need to include opening and closing). Jono Lynn MD 09/27/2017 * Consult Note - Sarah Serra APRN - 09/27/2017 2:00 PM EST Cinhtya Brown had VNS battery replaced today, per caregivers she is at baseline mentation. Per Terri Hsu APRN's last note, Normal VNS parametes as follows: Output current: 2.0 milliamps Signal frequency: 20 Hertz Pulse Width:500 microseconds On time: 14 sec Off time:1.1 min Magnet current:2.25 milliamps Pulse Width: 500 microseconds Procedure: VNS interrogated, parameters as found below: Output current: 2 mA Signal Frequency: 20 Hz Pulse width: 500 microseconds On time: 14 seconds Off time: 1.1 minutes Autostim activated current: 0.00 mA Autostim on time: 60 seconds. Autostim pulse width: 500 microseconds Magnet activated current: 2.25 mA Magnet on time: 30 seconds. Magnet pulse width: 500 microseconds Output current increased in stepwise fashion as tolerated. Reprogrammed to parameters below: Output current: 2 mA Signal Frequency: 20 Hz Pulse width: 500 microseconds On time: 14 seconds Off time: 1.1 minutes Autostim activated current: 2.25 mA Autostim on time: 30 seconds. Autostim pulse width: 500 microseconds Magnet activated current: 2.25 mA Magnet on time: 30 seconds. Magnet pulse width: 500 microseconds Battery swiped, tolerated well. Sat with patient 10 minutes continued to tolerate stimulation well. VNS re-interrogated, parameters found as below: Output current: 2 mA Signal Frequency: 20 Hz Pulse width: 500 microseconds On time: 14 seconds Off time: 1.1 minutes Autostim activated current: 2.25 mA Autostim on time: 30 seconds. Autostim pulse width: 500 microseconds Magnet activated current: 2.25 mA Magnet on time: 30 seconds. Magnet pulse width: 500 microseconds Caregivers deny further questions or concerns, FU with me already scheduled in November. Advised they can call any time with additional questions or concerns, contact information provided. Sarah Serra APRN [facility] Epilepsy Program Department of Neurology Pager [phone] documented in this encounter Plan of Treatment Upcoming Encounters Date Type Department Care Team (Late st Contact Info) Description 08/06/2024 11:00 AM EST Office [place] [address] Sarah Serra APRN [facility] [place] [address] documented as of this encounter Procedures Procedure Name Priority Date/Time Associated Diagnosis Comments ELEC ANALYSIS IMPL NEUROSTIM\PULSE GEN SYS-W/ INTRAOP OR SUBSQ PROGRAMMING (WRVU 0.78) 09/27/2017 12:33 PM EST epilepsy PLACEMENT CRANIAL NEUROSTIMULATOR (WRVU 6.05) 09/27/2017 12:33 PM EST epilepsy IMPLANTABLE DEVICES SCAN 09/27/2017 12:00 AM EST documented in this encounter Results * SCAN DOC: IMPLANTABLE DEVICES (09/27/2017 12:00 AM EST) Narrative 09/27/2017 12:00 AM EST Ordered by an unspecified provider. Scanning Provider MEDIA MGR SCAN EXT O RDR/RSLT documented in this encounter Visit Diagnoses Not on filedocumented in this encounter Administered Medications Inactive Administered Medications - up to 3 most recent administrations Medication Order MAR Action Action Date Dose Rate Site acetaminophen (TYLENOL) tablet 650 mg 650 mg, Oral, EVERY 4 HOURS PRN, Starting on Mon09/27/17 at 1353, Until Mon09/27/17 at 1723, Pain, Maximum dose of acetaminophen is 4000 mg from all sources in 24 hours., Routine Given 09/27/2017 2:05 PM EST 650 mg bacitracin injection ONCE PRN, Starting on Mon09/27/17 at 1321, Until Mon09/27/17 at 1723, Intra-Operative (Intra-Procedure), Routine Given 09/27/2017 1:21 PM EST 10,000 Units 19- Surgical Site BUpivacaine (PF) (MARCAINE) 0.5 % (5 mg/mL) injection ONCE PRN, Starting on Mon09/27/17 at 1304, Until Mon09/27/17 at 1723, Intra-Operative (Intra-Procedure), Routine Given 09/27/2017 1:04 PM EST 7 mLs 19- Surgical Site lactated Ringers infusion 1,000 mL 1,000 mL, at 100 mL/hr, Intravenous, CONTINUOUS, Starting on Mon09/27/17 at 1145, Until Mon09/27/17 at 1507, Day of Surgery (Day of Procedure) New Bag 09/27/2017 12:34 PM EST New Bag 09/27/2017 11:45 AM EST 1,000 mLs 100 mL/hr traMADol (ULTRAM) tablet 50-100 mg 50-100 mg, Oral, EVERY 6 HOURS PRN, Starting on Mon09/27/17 at 1353, Until Mon09/27/17 at 1723, Pain, Give 50 mg for mild to moderate pain (1-6). Give 100 mg for severe pain (7-10) If pain not relived after 60 minutes by a dose of 50 mg then may repeat 50 mg ONCE. Maximum of 400 mg/day., Routine Given 09/27/2017 2:05 PM EST 50 mg documented in this encounter Active and Recently Administered Medications Times are shown in EST. Scheduled Medication Order 09/25/2017 09/26/2017 09/27/2017 cefTRIAXone (ROCEPHIN) 1 g vial attach to sodium chloride 0.9% 50 mL Mini-Bag Plus (COMPLETED) 1 g, Intravenous, ONCE, 1 dose, On Mon09/27/17 at 1245, Administer over 30 Minutes, Indication for (Active or Suspected): Prophylaxis 1246 (New Bag - Prov ider: Ladonna Kapoor CRNA) vancomycin 1 g in 0.9 % sodium chloride 200 mL (COMPLETED) 1 g, Intravenous, at 200 mL/hr, ONCE, 1 dose, On Mon09/27/17 at 1300, Needs to be administered in Same Day Surgery prior to start of case. Maximum infusion rate is 1 gram/hour. If flushing of the face, neck, upper body, arms, and/or back occurs decrease infusion rate by 50% to reduce the severity of symptoms. This medication may have an associated drug lab level. Please see MAR for scheduled level. Warning Vesicant/Irritant Medication , STAT, Indication for (Active or Suspected): Prophylaxis 1246 (Given - Provid er: Ladonna Kapoor CRNA) Continuous Medication Order 09/25/2017 09/26/2017 09/27/2017 lactated Ringers infusion 1,000 mL (CANCELED) 1,000 mL, at 100 mL/hr, Intravenous, CONTINUOUS, Starting on Mon09/27/17 at 1145, Until Mon09/27/17 at 1507, Day of Surgery (Day of Procedure) 1145 (New Bag - Prov ider: Christos Cowan RN)1234 (New Bag - Provider: Ladonna Kapoor CRNA)1311 (Anesthesia Volume Adjustment - Provider: Ladonna Kapoor CRNA)1350 (Anesthesia Volume Adjustment - Provider: Ladonna Kapoor CRNA) PRN Medication Order 09/25/2017 09/26/2017 09/27/2017 acetaminophen (TYLENOL) tablet 650 mg 650 mg, Oral, EVERY 4 HOURS PRN, Starting on Mon09/27/17 at 1353, Until Mon09/27/17 at 1723, Pain, Maximum dose of acetaminophen is 4000 mg from all sources in 24 hours., Routine 1405 (Given - Provid er: Erika Vaughan RN) bacitracin injection (CANCELED) ONCE PRN, Starting on Mon09/27/17 at 1321, Until Mon09/27/17 at 1723, Intra-Operative (Intra-Procedure), Routine 1321 (Given - Provid er: Jono Lynn MD - Comment: 28718 units in a liter LR) BUpivacaine (PF) (MARCAINE) 0.5 % (5 mg/mL) injection (CANCELED) ONCE PRN, Starting on Mon09/27/17 at 1304, Until Mon09/27/17 at 1723, Intra-Operative (Intra-Procedure), Routine 1304 (Given - Provid er: Azam Eckert MD) traMADol (ULTRAM) tablet 50-100 mg 50-100 mg, Oral, EVERY 6 HOURS PRN, Starting on Mon09/27/17 at 1353, Until Mon09/27/17 at 1723, Pain, Give 50 mg for mild to moderate pain (1-6). Give 100 mg for severe pain (7-10) If pain not relived after 60 minutes by a dose of 50 mg then may repeat 50 mg ONCE. Maximum of 400 mg/day., Routine 1405 (Given - Provid er: Erika Vaughan RN) documented in this encounter Care Teams Credit Collections Clerk Relationship Specialty Start Date End Date Luis Manuel Blanca MD [address] [place] [address] PCP - General Family Medicine 06/24/16 documented as of this encounter
--- OUTSIDE RECORDS SUMMARY | 2024-06-28 22:02 | XMS_ITS | Encounter Summary ---
[place] [address] Care Team Providers Care Volleyball Referee Name Role Phone Luis Manuel Blanca MD Primary Care Provider [phone] Reason for Visit * Reason Onset Date Comments Prior Authorization 09/04/2018 MIDAZOLAM HC L 5 MG APPROVED 08/07/18-09/04/19 Encounter Details Date Type Department Care Team (Late st Contact Info) Description 09/04/2018 [place] [id number] Sarah Serra APRN [facility] [place] [address] Prior Authorization (MIDAZOLAM HCL 5 MG APPROVED 08/07/18-09/04/19) Social History Tobacco Use Types Packs/Day Years [...] * Telephone Encounter - Alondra Gregory - 09/06/2018 8:48 AM EST Images from the original note were not included. * Telephone Encounter - Alondra Gregory - 09/04/2018 2:09 PM EST Images from the original note were not included. PT HAS TRIED AND FAILED: ZONEGRAN, TRILEPTAL, TRAMADOL, ZOLOFT, BANZEL, SEROQUEL, PHENOBARBITAL, TRILEPTAL, ZOFRAN, ATIVAN, DEPAKOTE, VALIUM, DIAZEPAM, DEPAKOTE EC, AND ONFI. documented in this encounter Plan of Treatment Upcoming Encounters Date Type Department Care Team (Late st Contact Info) Description 08/06/2024 11:00 AM EST Office [place] [address] Sarah Serra APRN [facility] [place] [address] documented as of this encounter Visit Diagnoses Not on filedocumented in this encounter Care Teams Volleyball Referee Relationship Specialty Start Date End Date Luis Manuel Blanca MD [address] [place] [address] PCP - General Family Medicine 06/24/16 documented as of this encounter
--- OUTSIDE RECORDS SUMMARY | 2024-06-28 22:02 | XMS_ITS | Encounter Summary ---
Author Organization [facility], [facility] [place] [address] Care Team Providers Care Fingernail Sculptor Name Role Phone Luis Manuel Blanca MD Primary Care Provider [phone] Encounter Details Date Type Department Care Team (Latest Contact Info) Description 11/14/2017 4:50 PM EDT - 11/14/2017 11:59 PM EDT Hospital Encounter XRay at [address] [place] [address] Sarah Serra, DINO [facility] [place] [address] SOB (shortness of breath); Upper respiratory tract infection, unspecified type; Dysphagia, unspecified type Discharge Disposition: Home Social History Tobacco Use [...] 40 mg by mouth daily. OXcarbazepine (TRILEPTAL) 150 mg Tablet Take at noontime (in addition to 300mg tab) 30 tablet 5 11/14/2017 11/15/2017 OXcarbazepine (TRILEPTAL) 300 mg Tablet Take 600 mg in AM, 300 mg in noon (in addition to the 150mg tab) and 600 mg in PM. 150 tablet 5 11/14/2017 05/07/2018 cholecalciferol, Vitamin D3, (VITAMIN D) 1,000 unit [...] If still not effective please call neurologist credit collections clerk. No more than 4mg daily. 45 tablet 3 03/20/2017 05/15/2018 melatonin 3 mg Tablet Take 6 mg by mouth nightly. 11/30/2023 sertraline (ZOLOFT) 100 mg Tablet Take 1 tablet by mouth daily. 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 1 kit 3 01/06/2016 11/20/2018 furosemide (LASIX) 20 mg Tablet Take 20 mg by mouth daily. 07/19/2022 midazolam, PF, (VERSED) 5 mg/mL Solution 1 mL by Nasal route daily as needed (give 1 ml via atomizer for cluster of seizures). 2 mL 3 08/27/2014 08/31/2018 documented as of this encounter Plan of Treatment Upcoming Encounters Date Type Department Care Team (Late st Contact Info) Description 08/06/2024 11:00 AM EST Office [place] [address] Sarah Serra APRN [facility] [place] [address] documented as of this encounter Procedures Procedure Name Priority Date/Time Associated Diagnosis Comments XR CHEST PA AND LATERAL Routine 11/14/2017 5:30 PM EDT SOB (shortness of breath) Upper respiratory tract infection, unspecified type Dysphagia, unspecified type documented in this encounter Results * XR Chest PA [...] degree of inspiration and technique. Procedure Note Sandy Melendrez MD - 11/14/2017 EXAMINATION: XR CHEST [...] evidence of aspiration sequelaor pneumonia. Sarah Serra AUTO COLLISION REPAIR INSTRUCTOR IMG DX ORDERABLE S documented in this encounter Visit Diagnoses Diagnosis SOB (shortness of breath) Shortness of breath Upper respiratory tract infection, unspecified type Dysphagia, unspecified type documented in this encounter Care Teams Fingernail Sculptor Relationship Specialty Start Date End Date Luis Manuel Blanca MD [address] [place] [address] PCP - General Family Medicine 06/24/16 documented as of this encounter
--- OUTSIDE RECORDS SUMMARY | 2024-06-28 22:02 | XMS_ITS | Encounter Summary ---
[place] [address] Care Team Providers Care Car Coupler Name Role Phone Luis Manuel Blanca MD Primary Care Provider [phone] Reason for Visit * Reason Onset Date Comments Other 10/02/2017 Encounter Details Date Type Department Care Team (Late st Contact Info) Description 10/02/2017 Telephone [place] [phone] Sarah Serra APRN [facility] [place] [address] Other Social History Tobacco Use Types Packs/Day [...] Telephone Encounter - Lili Otero RN - 10/03/2017 9:24 AM EST 10/03/17 0925 Call placed to patient/caller. Talked to Lulu. Per Sarah Serra LEGAL RESEARCH ANALYST: get AED levels. Lulu doesn't seem that the new VNS battey is bothering the patient. Advised to continue keeping a log of patient's seizure and to call for any increase in symptoms. Patient advised to call for any other concerns. Patient in agreement and verbalized understanding of the plan. * Telephone Encounter - Lili Otero RN - 10/02/2017 3:42 PM EST Call placed to patient/caller. Per Lulu (patient's caregiver) Change or Increase in Seizure LV - 06/14/17 w/ Terri Hsu APRN [place] - 11/14/17 w/ Sarah Serra APRN Primary Question/ Concern Today- Increase in Seizure Activity REPORT ON CURRENT CONCERN: Per patient's caregiver (Lulu), patient had increase number of seizures this month. It's her typical seizures but shorter. Patient had a total of 8 seizures to date. 4 of the seizures happened after the VNS battery changed. ??? When did increase of seizures start: this September ??? How often are seizures occurring: at least every other day ??? Is this typical seizure activity : yes If no please explain: ??? Recent missed doses of medication: no If yes please explain: ??? Any rescue medications used: yes If yes please explain: Ativan ??? Last Drug levels (date and result): last AED levels was in 03/29/2017 ??? Current Weight: no change ??? Any recent merchandise planning manager change: none Current Medications: Outpatient Prescriptions Marked as Taking for the 10/02/17 encounter (Telephone) with Sarah Serra APRN Medication Sig Dispense Refill ??? OXcarbazepine (TRILEPTAL) 300 mg Tablet Take 600 mg in AM, 300 mg in noon and 600 mg in PM. 120tablet 5 ??? marijuana Oil - medicinal use Take 5 drops by mouth 2 times daily. Sativa ??? cholecalciferol, Vitamin D3, (VITAMIN D) 1,000 [...] If still not effective please call neurologist electron microscopist. No more firu2aw daily. 45 tablet 3 ??? melatonin 3 mg Tablet Take 6 [...] If still not effective please call neurologist electron microscopist. 1 kit 3 ??? furosemide (LASIX) 20 [...] tablet Take 40 mg by mouth daily. GENERAL QUESTIONS (for any positive response note explanation) ??? Any current sleep concerns : none ??? Any current appetite or eating concerns: none ??? Any bowel or bladder concerns: none ??? Any current pain concerns: something is bothering her. ??? Any new worries, stressors, or routine changes: none ??? Any recent Illness/Injyry/Surgery: none Anything additional to relay to the provider: Plan/Intervention/Follow Up - Report forwarded to Sarah Serra APRN: for review and comment. Pt/caller aware they will be called back with input when available and to call back in the interim if additional questions or change arise before they hear back from this office. Pt/caller agreeable to this plan. * Telephone Encounter - Claribel Ross - 10/02/2017 2:58 PM EST Caller: Lulu If not Pt / Relation to pt: Caregiver Best time to reach caller: Anytime After 230 pm (if not red arrow message) - Informed caller that if the nurse does not call back by the end of the day they will be called tomorrow AM Best number to reach caller: [phone] Reason for call:SEIZURE Did the seizure happen within the last hour: No Is the patient currently seizing: no Additional information for nurse: patient has had 2 or more seizures every other day for the last week. They are the typical seizures just a bit shorter. Please call to discuss. 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
--- OUTSIDE RECORDS SUMMARY | 2024-06-28 22:02 | XMS_ITS | Encounter Summary ---
Author Organization [facility] [place] [address] Care Team Providers Care Control Director Name Role Phone Luis Manuel Blanca MD Primary Care Provider [phone] Encounter Details Date Type Department Care Team (Late st Contact Info) Description 03/20/2017 [place] [address] Terri Hsu APRN [facility] [address] Social History Tobacco Use Types Packs/Day Years [...] encounter Miscellaneous Notes * Telephone Encounter - Mita Win RN - 03/20/2017 3:14 PM EDT Terri Hsu APRN reviewed and stated that if they tapered the hemp oil due to cost then maybe theycan get a stronger strain or apply for help through [employer] which may be able to help with the cost. Iphoned Lulu and reviewed this with her. She states that they already are getting the strongest strain of hemp oil for pt. She will look into [employer] but would really like to discuss this in clinic with Terri. Plan: I will forward to pocket secretary assembler to phone caregiver and arrange f/u visit in clinic. Caregiver agrees with plan and verbalizes understanding. * Telephone Encounter - Mita Win RN - 03/20/2017 11:59 AM EDT Last visit 11/18/16 Next visit 05/19/17 Patient's caregiver Lulu phoned. She reports that she has been having to give Cinthya ativan every other day for pre seizure activity. She states she has been having to do this for about 2 months now. She reports it started since having to decrease the hemp oil. She states she knows Terri doesn'tlike her giving pt the ativan that much and she would like to know what Terri recommends. She states that she is willing to bring Cinthya in for a visit if Terri would like. Current Outpatient Prescriptions on File Prior to Visit Medication Sig Dispense Refill ??? UNABLE TO FIND Med Name: Hemp Oil ??? OXcarbazepine (TRILEPTAL) 300 mg Tablet Take 2 tablets by mouth 3 times daily. Brand name medically necessary. 180 tablet 5 ??? melatonin 3 mg Tablet Take 3 mg by mouth nightly. ??? cloBAZam (ONFI) 10 mg Tablet Take 1.5 tablets by mouth nightly. 45 tablet 5 ??? sertraline (ZOLOFT) 100 mg Tablet Take 1 tablet by mouth daily. 90 tablet 0 ??? LORazepam (ATIVAN) 1 mg Tablet Take 1-2 tablets at onset of seizure symptoms, if ineffective after 30 minutes may repeat dose. If still not effective please call neurologist health information technologist. No more nusa5wn daily. 45 tablet 3 ??? rufinamide (BANZEL) 400 mg Tablet Take [...] If still not effective please call neurologist health information technologist. 1 kit 3 ??? furosemide (LASIX) 20 mg Tablet Take 10 mg by mouth daily. ??? loratadine (CLARITIN) [...] Take 40 mg by mouth daily. ??? [DISCONTINUED] QUEtiapine (SEROQUEL) 25 mg Tablet Take 1 tablet by mouth nightly. (Patient taking differently: Take 50 mg by mouth nightly.) 30 tablet 3 No current facility-administered medications on file prior to visit. patient is also on: Seroquel 50 mg nightly Plan: I will forward to Terri Hsu APRN for further review and recommendation. Caregiver aware I will phone her once input available. Caregiver agrees with plan and verbalizes understanding. documented in this encounter Plan of Treatment Upcoming Encounters Date Type Department Care Team (Late st Contact Info) Description 08/06/2024 11:00 AM EST [place] [address] Sarah Serra APRN [facility] [place] [address] documented as of this encounter Visit Diagnoses Not on filedocumented in this encounter Care Teams Control Director Relationship Specialty Start Date End Date Luis Manuel Blanca MD [address] [place] [address] [address] [place] [address] PCP - General Family Medicine 06/24/16 documented as of this encounter
--- OUTSIDE RECORDS SUMMARY | 2024-06-28 22:02 | XMS_ITS | Encounter Summary ---
Author Organization [facility] [place] [address] Care Team Providers Care Steam Cleaning Machine Operator Name Role Phone Luis Manuel Blanca MD Primary Care Provider [phone] Reason for Visit * Reason Comments Right Hip Fracture epileptic * Consultation (Routine) - Closed Specialty Diagnoses / Procedures Referred By Contac t Referred To Contact Orthopaedics Diagnoses moderate to severe degernerative changes of the left hip, deformity of the right femoral head appears chronic; ? surgery Procedures Landry Vega MD [address] [place] [address] Christos Davis MD [facility] [place] [address] Referral ID Status Reason Start Date Expiration Date V isits Requested Visits Authorized [id number] Closed Consult, Test & Treat 10/03/2016 10/03/2017 1 1 Encounter Details Date Type Department Care Team (Late st Contact Info) Description 10/24/2016 10:10 AM EDT [place] [address] Christos Davis MD [facility] [place] [address] Chronic right hip pain Social History Tobacco Use Types Packs/Day Years [...] Sign Reading Time Taken Comments Blood Pressure 115/60 10/24/2016 10:15 AM EDT Pulse 79 10/24/2016 10:15 AM EDT Temperature - - Respiratory Rate - - Oxygen Saturation - - Inhaled Oxygen Concentration - - Weight 68 kg (150 lb) 10/24/2016 10:15 AM EDT Height - - Body Mass Index 31.35 08/19/2016 12:54 PM EST documented in this encounter Progress Notes * Josue Min PA - 10/24/2016 10:10 AM EDT Images from the original note were not included. Department of Orthopaedics Division of Adult Joint Reconstructive Surgery ARTHROPLASTY HISTORY/PREVIOUS HIP SURGERY: 1. None Subjective: Cinthya Brown is a 56 y.o. female who presents with Right hip pain. Onset of the symptoms was several months ago. There was not an inciting event. But patient's day care director noted that around the timeof her symptomology, her seizure activity had spiked in frequency. She has had no prior hip problems. Cinthya's previous visits for this problem: none. Evaluation to date: plain films, which were abnormal DJD. Cinthya reports the hip pain is diffuse. She does report groin pain, does not endorse thigh pain and does not feel as if she walks with a limp because patient is wheelchair bound . There is no radiation of the pain . Aggravating symptoms include: any weight bearing. She feels that her hip pain is keeping her from doing more. Cinthya has pain at night.. She cannot weight bear on the right leg and does use assistive devices ( wheelchair). She can sit comfortably in a chair for 1 hour. Cinthya has tried physical therapy. She has not had injections into the joint: . Use of NSAIDs/Pain meds: Tylenol used and beneficial She does not reports problems with the contralateral hip, does report problems with the ipsilateralknee and does not have a history of spine or back issues REVIEW OF SYSTEMS: Cinthya denies fevers, chills, night sweats, nausea, or vomiting. She does not endorse a history of DVT/PE or clotting disorder. QUESTIONNAIRE RESPONSES: General Health, Prior Treatments, PreExisting Condition, Health Habits, About You 05/09/2016 PROMIS-10 General Health Fair PROMIS-10 Quality of Life Fair PROMIS-10 Physical Health Fair PROMIS-10 Mental Health Fair PROMIS-10 Social Activity Poor PROMIS-10 Everyday Activities Not at all PROMIS-10 Social Roles Poor PROMIS PHYSICAL SCORE (range 16-68) 0 PROMIS MENTAL SCORE (range 21-68) 0 Treatments Tried Brace, Acetaminophen (e.g. Tylenol), Injection of steroids or cortisone Alzheimers or dementia No Cirrohosis or liver disease No HIV/AIDS No Heart attack No Heart failure No Unclog/bypass leg arteries No Stroke, blood clot, TIA No Asthma No Emphysema, chronic bronchities, or COPD No Stomach ulcers/peptic ulcer disease Yes Condition diagnosed by endoscopy Yes Diabetes No Poor kidney function No Rheumatic condtions No Cancer No Weight (lbs) 160 Height (feet) 4 feet Height (Inches) 8 BMI 35.86 (Obese) Ever used tobacco products No Ever used alcoholic beverages No Live Alone No Marital situation Single (never ) Schooling 8th grade or less Combined Household Income Less than $10,000 # People Supported 1 Nepalese, , No, not Nepalese// Race White Currently working No Not working because: Other No flowsheet data found. No flowsheet data found. ALLERGIES Allergies Allergen Reactions ??? Amoxicillin-Pot Clavulanate Rash ??? Risedronate Sodium Nausea And Vomiting SOCIAL HISTORY: reports that she has never smoked. She has never used smokeless tobacco. She reports that she does not drink alcohol or use illicit drugs. SIGNIFICANT MEDICAL COMORBIDITIES: Patient Active Problem List Diagnosis Code ??? Status epilepticus G40.901 ??? Sleep apnea G47.30 ??? Mental retardation F79 ??? Seizure R56.9 ??? CAP (community acquired pneumonia) J18.9 ??? 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 The patient cannot bear weight on the injured extremity. I have made the following determinations: Hip Exam: Right Unable to conduct exam today Imaging: X-ray right: shows DJD changes, likely chronic Assessment: Ms. Brown is a 56 y.o. 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 Plan: Natural history and expected course discussed. Questions answered. We reviewed the multiple treatment options available to her for this condition and the hurtful but non-harmful nature of arthritis. Both operative and nonoperative options were discussed as well as the pure elective nature of each. I reviewed the concept of the arthritis ladder with its step-miranda approach, rising in invasiveness based on either previous response or symptom severity/impact on lifestyle. If patient become symptomatic, a girdle stone will be offered Follow up as needed BARRY Herzog * Christos Davis MD - 10/24/2016 10:10 AM EDT Images from the original note were not included. Department of Orthopaedics Division of Adult Joint Reconstructive Surgery October 24, 2016 I had the pleasure of evaluating Cinthya Brown in clinic in conjunction with one of my associate providers. In brief this is a 56-year-old nonverbal mentally retarded female who has epilepsy presenting for right hip pain. I have seen her in the past for right knee pain. She had a history of a lateral plateau fracture which we are treated nonoperatively with injections. She wears a brace and is currently tolerating the knee. Recently she was noted to have some increasing discomfort with physical therapy. She was having limits on how her hip could be moved. Her caregiver states that she was having difficulty with self-care secondary to stiffness in the hip. X-rays were obtained in [facility] by Dr. 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 She has been subsequently referred to me for further management. After lengthy discussion with her caregiver it is hard to ascertain how much pain is truly coming from the hip. When Itry to move her hip in her wheelchair she does not seem to grimace or have any discomfort. She is no nverbal and the caregiver states that the patient really has not expressed an increase in pain of late. She continues to have seizures on a weekly basis. I had a lengthy discussion with the caregiverwho is not the DPOA. Patient's mother lives in [place] and the caregiver's daughter who is the DPOAway makes decisions. At this point we discussed the risk with joint replacement and her high likelihood of having a dislocation secondary to her recurrent seizures. We discussed Girdlestone procedureas a palliative procedure to address pain which would allow the patient to move her leg more freelyand weight-bear to tolerance. At this point though it is hard to ascertain if the patient is truly having much pain from the hip or just that she has x-ray findings consistent with a degenerative hip. I think it is reasonable to continue to monitor this. If the patient starts to develop significantpain or discomfort that is not managed with Tylenol then certainly we could consider a Girdlestone procedure and this can be done at any point in the future. I also outlined that the x-rays may show bony resorption over time and she may end up with a functional Girdlestone as the femoral head resorbs. We also discussed an injection at some point if her pain truly worsens and this is something that could be done closer to home in [facility]. At this point I think we will avoid any surgical intervention at this point in time. I explained to the caregiver that if the patient starts to really develop what appears to be pain related to her hip then we could consider Girdlestone procedure or injection. All questions were answered. Christos Davis MD, MS Chief, Division of Adult Reconstructive Operations Support RepresentativeMold Maker Plaster of Orthopaedics Department of Orthopaedics [facility] [phone] [email or web address] documented in this encounter Plan of Treatment Upcoming Encounters Date Type Department Care Team (Late st Contact Info) Description 08/06/2024 11:00 AM EST [place] [address] Sarah Serra APRN [facility] [place] [address] documented as of this encounter Visit Diagnoses Diagnosis Chronic right hip pain Pain in joint, pelvic region and thigh documented in this encounter Care Teams Steam Cleaning Machine Operator Relationship Specialty Start Date End Date Luis Manuel Blanca MD [address] [place] [address] PCP - General Family Medicine 06/24/16 documented as of this encounter
--- OUTSIDE RECORDS SUMMARY | 2024-06-28 22:02 | XMS_ITS | Encounter Summary ---
[place] [address] Care Team Providers Care Leading Firefighter Name Role Phone Luis Manuel Blanca MD Primary Care Provider [phone] Encounter Details Date Type Department Care Team (Late st Contact Info) Description 11/28/2017 External [place] [address] Sarah Serra MANAGER COMMUNITY DEVELOPMENT [facility] [place] [address] Social History Tobacco Use Types Packs/Day Years [...] 11:00 AM EST [place] [address] Sarah Serra MANAGER COMMUNITY DEVELOPMENT [facility] [place] [address] documented as of this encounter Procedures Procedure Name Priority Date/Time Associated Diagnosis Comments OXCARBAZEPINE METABOLITE (MHC) Routine 11/22/2017 documented in this encounter Results * (ABNORMAL) Oxcarbazepine Metabolite (MHC) (11/22/2017) Oxcarbazep Met (Mhc) (DECEMBER) 26 3 - 35 Rufinamide Level (DECEMBER) 40.8(A) 5 - 30 Clobazam (DECEMBER) 129 30 - 300 Desmethylclobazam (DECEMBER) 3,776(A) 300 - 3,000 Ammonia 20 11 - 32 Blood specimen (specimen) 11/22/2017 Historical Provider LAB SEND OUT JIMENEZ MARCH documented in this encounter Visit Diagnoses Not on filedocumented in this encounter Care Teams Leading Firefighter Relationship Specialty Start Date End Date Luis Manuel Blanca MD [address] [place] [address] [address] [place] [address] PCP - General Family Medicine 06/24/16 documented as of this encounter
--- OUTSIDE RECORDS SUMMARY | 2024-06-28 22:02 | XMS_ITS | Encounter Summary ---
[place] [address] Care Team Providers Care Wax Engraver Name Role Phone Luis Manuel Blanca MD Primary Care Provider [phone] Reason for Visit * Reason Onset Date Comments Prior Authorization 01/24/2019 Epidiolex Encounter Details Date Type Department Care Team (Late st Contact Info) Description 01/24/2019 [place] [id number] Saray Coelho CPHT Prior Authorization (Epidiolex) Social History Tobacco Use Types Packs/Day Years [...] encounter Miscellaneous Notes * Telephone Encounter - Saray Coelho - 01/25/2019 4:22 PM EDT [facility], Prior Authorization Approval Medication Name: Epidiolex FILLABLE AT [facility]? yes APPROVAL DATES: 10-26-2018 through 01-24-2020 (extended to 04/25/2020) SPECIFIC INS REQUIREMENT: n/a CASE/REFERENCE # APPROVAL NOTIFICATION RECEIVED VIA: Fax COPAY: $0 COPAY ASSISTANCE NEEDED?: n/a NOTES: Specialty will reach out to patient for new start consult and to arrange shipping/fish bait picker. ----PA was extended to 04/25/2020 due to COVID-19--- * Telephone Encounter - Saray Coelho - 01/24/2019 3:30 PM EDT [facility], Medication Prior Authorization Patient: Cinthya Brown Patient : 1960 Patient Address: C/o Agusto Arellano [address] [place] [phone] (home) Medication: Epidiolex Subscriber Insurance: copygram Fax: n/a Physician: Sarah Serra Sent Via: [facility] Hou: [id number] Ref/Case/PA#: Medication Strength Frequency Requested: Epidiolex 100mg/ml Qty/Day Supply: 178ml for 28 days then 218ml for 30 days New Start: Yes Diagnosis & ICD-10 Code: 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 Author DH Home Medication Compliance and Understanding Patient Facing Action Plan On track( 024 12:05 PM EDT) Arnel Hurd, [facility] Note: Patient's specific desired goal: reduce number of seizures, with secondary goal of being able to taper some of the other AEDs being used Measured by: seizure record, side effects exhibited Time-frame to meet goal: 3-6 months documented as of this encounter Visit Diagnoses Not on filedocumented in this encounter Care Teams Wax Engraver Relationship Specialty Start Date End Date Luis Manuel Blanca MD [address] [place] [address] PCP - General Family Medicine 06/24/16 documented as of this encounter
--- OUTSIDE RECORDS SUMMARY | 2024-06-28 22:02 | XMS_ITS | Encounter Summary ---
[place] [address] Care Team Providers Care Brim Welt Sewing Machine Operator Name Role Phone Luis Manuel Blanca MD Primary Care Provider [phone] Encounter Details Date Type Department Care Team (Late st Contact Info) Description 11/15/2017 [place] [address] Sarah Serra RETAIL ADVISOR [facility] [place] [address] Social History Tobacco Use Types Packs/Day Years [...] Telephone Encounter - Lili Otero RN - 11/15/2017 4:21 PM EDT Call placed to patient's caregiver per Sarah Serra APRN requests. Made aware that chest x-ray was normal and recommended to have a follow up appointment with PCP. LVM. Advised to call for any questions or concerns. documented in this encounter Plan of Treatment Upcoming Encounters Date Type Department Care Team (Late st Contact Info) Description 08/06/2024 11:00 AM EST [place] [address] Sarah Serra APRN [facility] [address] documented as of this encounter Visit Diagnoses Not on filedocumented in this encounter Care Teams Brim Welt Sewing Machine Operator Relationship Specialty Start Date End Date Luis Manuel Blanca MD [address] [place] [address] PCP - General Family Medicine 06/24/16 documented as of this encounter
--- OUTSIDE RECORDS SUMMARY | 2024-06-28 22:02 | XMS_ITS | Encounter Summary ---
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; High risk medication use; Vitamin D deficiency Social History Tobacco Use Types Packs/Day Years [...] Sign Reading Time Taken Comments Blood Pressure 117/67 11/20/2018 12:44 PM EDT Pulse 94 11/20/2018 12:44 PM EDT Temperature - - Respiratory Rate - - Oxygen Saturation - - Inhaled Oxygen Concentration - - Weight 72.6 kg (160 lb) 11/20/2018 12:4 4 PM EDT Reported - wheelchair Height 149.9 cm (4' 11) 11/20/2018 12: 44 PM EDT Reported Body Mass Index 32.32 11/20/2018 12:44 PM EDT documented in this encounter Patient Instructions * Patient Instructions* Sarah Serra APRN - 11/20/2018 1:00 PM EDT Increase trileptal to 600mg 3 times a day. Please make sure you are giving her preventative ativan as prescribed if she is going to do something that is likely to trigger a seizure (ie: coming to a doctors appointment etc...) We will work on getting Epidiolex ( the prescription CBD oil) for you, this will hopefully be covered by you insurance, as opposed to the kind you are buying now from the dispensary which is very expensive. There is no guarantee we can get the prescription covered, but we will try, if we fail this time we will try again in the future. Until then use the oil you are currently taking. documented in this encounter Progress Notes * Sarah Serra APRN - 11/20/2018 1:00 PM EDT Subjective: [facility] OUTPATIENT FOLLOW UP NOTE [...] past month: 0 Were seizures disabling? No Was having increased seizures, but increased her hemp oil and she is doing much better. They are interested in Epidiolex as OTC oil is about $200 per month. She is now splitting her time between [employer] and [place]. 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 She and Alix have a good relationship. Most of her breakthrough now occurs when [place] is [place] [facility] [place] [facility] [facility] [place] [facility] or coming to this appointment of other medical appointments. The preventative ativan works well to prevent or at least reduce the severity of these events, however they are concerned about the agency questioning their preventative PRNs, she feels if the script was written differently they would have less trouble with this. This is reasonable. She historically has had some trouble with her trilepal dosing. Did well for quite a while at 600mgTID, then had SEs, so lowered, then more seizures so increased to 600/450/600 with option of givingadditional 150 at noon if needed. At this point she is getting 600mg TID (as she always needs the PRN 150) and toleraing well, they are wondering if she can go back up to just 600mg TID scheduled. They always watch closely for SEs. Otherwise she is happy and doing well. Social History: Social History Socioeconomic [...] file Gets together: Not on file Attends congregation service: Not on file Active member of [...] on file Social Factors: QEPILEPSY SOCIAL FACTORS 11/21/18 Employment status: No Currently driving: No Considering No Past Medical History: Diagnosis Date ??? Hyperlipidemia ??? MR (mental retardation) ??? RIA (obstructive sleep apnea) ??? Seizures Current Outpatient Medications on File Prior to Visit Medication Sig Dispense Refill ??? acetaminophen (TYLENOL) 500 mg Tablet Take [...] Physical Exam: Vitals: Temp: -- Heart Rate: [94] Resp: -- BP: (117)/(67) SpO2: -- Heart Rate from SpO2: -- Awake, alert, of apparent age, well dressed and groomed, intermittently says brief repetitive wordsof phrases, somewhat dysphasic, sitting in wheelchair, interacting with caregiver and provider, canfollow some simple commands but not others, comprehension limited, mood is good. Procedure: VNS interrogated, parameters as found below: Output current: 2.0 milliamps Signal frequency: 20 Hertz Pulse Width:500 microseconds On time:14 sec Off time:1.1 min Autostim activated current: 2.0 mA Autostim on time: 30 seconds. Autostim pulse width: 500 microseconds Magnet activated current: 2.25 mA Magnet on time: 30 seconds. Magnet pulse width: 500 microseconds Assessment and Plan: - Epilepsy: Trileptal increased to 600mg TID. I have updated the script for ativan, Discussed proper use, potential for abuse, dependency and tolerance. Should only use when needed, not for daily use. She carries a dx intractable chio-gasteau, we will work on getting epidiolex approved. - Screen for medication toxicity: Labs today. - The patient is currently not [...] Cinthya in clinic today. Sarah Serra APRN [facility] Department of Neurology Patient Instructions Increase trileptal to 600mg 3 times a day. Please make sure you are giving her preventative ativan as prescribed if she is going to do something that is likely to trigger a seizure (ie: coming to a doctors appointment etc...) We will work on getting Epidiolex ( the prescription CBD oil) for you, this will hopefully be covered by you insurance, as opposed to the kind you are buying now from the dispensary which is very expensive. There is no guarantee we can get the prescription covered, but we will try, if we fail this time we will try again in the future. Until then use the oil you are currently taking. documented in this encounter Plan of Treatment Upcoming Encounters Date Type Department Care Team (Late st Contact Info) Description 08/06/2024 11:00 AM EST [place] [address] Sarah Serra APRN [facility] [place] [address] documented as of this encounter Procedures Procedure Name Priority Date/Time Associated Diagnosis Comments RUFINAMIDE LEVEL Routine 11/20/2018 1:54 PM EDT Epilepsy seizure, generalized, convulsive Intractable [place]-Gast[place] syndrome without status epilepticus High risk medication use HEMOGRAM Routine 11/20/2018 1:54 PM EDT Epilepsy seizure, generalized, convulsive Intractable [place]-Gast[place] syndrome without status epilepticus High risk medication use DIFFERENTIAL, AUTOMATED Routine 11/20/2018 1:54 PM EDT Epilepsy seizure, generalized, 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 High risk medication use VITAMIN D, 25-HYDROXY Routine 11/20/2018 1:54 PM EDT Epilepsy seizure, generalized, convulsive Intractable [place]-Gastaut syndrome without status epilepticus High risk medication use Vitamin D deficiency OXCARBAZEPINE METABOLITE (MHC) Routine 11/20/2018 1:54 PM EDT Epilepsy seizure, generalized, convulsive Intractable [place]-Gastaut syndrome without status epilepticus High risk medication use CBC (WITH DIFF) Routine 11/20/2018 1:54 PM EDT Epilepsy seizure, generalized, 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 High risk medication use COMPREHENSIVE METABOLIC PANEL Routine 11/20/2018 1:54 PM EDT Epilepsy seizure, generalized, 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 High risk medication use documented in this encounter Results * (ABNORMAL) Differential, Automated (11/20/2018 1:54 PM EDT) Neutrophil % 76.9 % [facility] Neutrophil Absolute 6.67(H) 1.70 - 6.10 x10(3)/mc L [facility] Lymph % 18.8 % [facility] Lymphocytes Abs 1.6 0.9 - 3.2 x10(3)/mc L [facility] Monocyte % 3.8 % [facility] Monocyte Abs 0.3 0.3 - 0.9 x10(3)/mc L [facility] Eos % 0.0 % [facility] Eosinophils Abs 0.0 0.0 - 0.4 x10(3)/mc L [facility] Basophil % 0.2 % [facility] Baso Absolute 0.0 0.0 - 0.1 x10(3)/mc L [facility] Immature Gran % 0.30 % [facility] Comment: Immature granulocytes(IG's)percentage and absolute count will include metamyelocytes, myelocytes, and promyelocytes. Blood smears from CBCs yielding IG's will be scanned manually for concordance. If this scan disagrees with the automated IG or if promyelocytes are noted, a manual differential will be performed. Immature Gran Absolute 0.03 0.00 - 0.04 x10(3)/mc L [facility] Blood specimen (specimen) 11/20/2018 1:54 PM EDT 11/20/2018 1:58 PM EDT Narrative Resulting Agency Comment Spec In Lab Sarah Serra GLASS SCIENCE ENGINEER HEMATOLOGY ORDER ROQUE [facility] [place] [address] * Hemogram (11/20/2018 1:54 PM EDT) White Blood Cell 8.7 4.0 - 9.5 x10(3)/[facility] Red Blood Cell 4.85 4.00 - 5.21 x10(6)/[facility] Hemoglobin 13.9 11.7 - 15.5 gm/dL [facility] Hematocrit 43.6 35.7 - 45.8 % [facility] Mean Cell Volume 89.9 82.6 - 94.4 fL [facility] Mean Cell Hemoglobin 28.7 27.1 - 32.0 pg [facility] Mean Cell Hemoglobin Concentration 31.9 31.7 - 35.0 gm/dL [facility] Platelet 245 145 - 357 x10(3)/[facility] RDW Standard Deviation 42.8 37.0 - 46.0 [facility] RDW coefficient of variation 13.0 11.5 - 14.1 % [facility] Mean Platelet Volume 9.8 7.6 - 12.9 [facility] NRBC% auto 0.0 % [facility] NRBC Absolute 0.000 0.000 - 0.000 x10(3)/[facility] Blood specimen (specimen) 11/20/2018 1:54 PM EDT 11/20/2018 1:58 PM EDT Narrative Resulting Agency Comment Spec In Lab Sarah Swannlorraine GLASS SCIENCE ENGINEER HEMATOLOGY ORDER ROQUE [facility] [place] [address] * (ABNORMAL) Comprehensive metabolic panel (non-fasting) (11/20/2018 1:54 PM EDT) Glucose 133 65 - 199 mg/dL [facility] Comment:Diabetes: >=200 mg/d L plus symptoms Blood Urea Nitrogen 11 8 - 18 mg/dL [facility] Creatinine 0.47(L) 0.70 - 1.20 mg/dL [facility] Sodium 140 135 - 145 mmol/L [facility] Potassium 3.6 3.5 - 5.0 mmol/L [facility] Comment: Please note: ??Patients with WBC >100,000 may have falsely elevated Potassium levels. ??For accurate Potassium quantification in these patients send serum separator tube (gold top) for subsequent determinations. ??Contact the Clinical Chemistry Laboratory if there are any questions. Chloride 97(L) 98 - 107 mmol/L [facility] Carbon Dioxide 32(H) 22 - 31 mmol/L [facility] Anion Gap 11 5 - 15 mmol/L [facility] Calcium 9.3 8.5 - 10.5 mg/dL [facility] Protein, Total 7.4 6.1 - 8.0 gm/dL [facility] Albumin 4.1 3.2 - 5.2 gm/dL [facility] Aspartate Aminotransferase 16 0 - 30 unit/L [facility] Alanine Aminotransferase 23 0 - 30 unit/L [facility] Alkaline Phosphatase 117(H) 40 - 104 unit/L [facility] Bilirubin, Total 0.2 0.2 - 1.3 mg/dL [facility] Est Glomerular Filtration Rate 110 >=60 mL/min/1. 73 m?? [facility] Comment: The eGFR was calculated using the CKD-EPI equation. As with all creatinine based estimates of kidney function, eGFR values calculated with the CKD-EPI equation are not accurate in patients with acute kidney failure, extremes of body mass or the acutely ill. http://Ibelem/DHnkf eGFR 127 >=60 mL/min/1. 73 m?? [facility] Comment: The eGFR was calculated using the CKD-EPI equation. As with all creatinine based estimates of kidney function, eGFR values calculated with the CKD-EPI equation are not accurate in patients with acute kidney failure, extremes of body mass or the acutely ill. http://Ibelem/DHMCnkf Blood specimen (specimen) 11/20/2018 1:54 PM EDT 11/20/2018 1:58 PM EDT Narrative Resulting Agency Comment Spec In Lab Sarah Serra APRN CHEMISTRY ORDERA BLES Performing Organization Address [facility] Co de Phone Number [facility] [place] [address] * Rufinamide Level (11/20/2018 1:54 PM EDT) Rufinamide Level (DECEMBER) 21.3 5.0 - 30.0 mcg/mL [facility] Comment: ADDITIONAL INFORMATION This test was developed and its performance characteristics determined by [facility] in a manner consistent with CLIA requirements. This test has not been cleared or approved by the U.S. Food and Drug Administration. Test Performed by: [facility] - [facility] [address] [place] [address] Blood specimen (specimen) 11/20/2018 1:54 PM EDT 11/20/2018 3:37 PM EDT Narrative Resulting Agency Comment Spec In Lab Sarah Serra APRN LAB SEND OUT ORD ERABLES Performing Organization Address [facility] Co de Phone Number [facility] [place] [address] * Oxcarbazepine Metabolite (MHC) (11/20/2018 1:54 PM EDT) Oxcarbazep Met ([facility] ( 3 - 35 mcg/mL [facility] Comment: ADDITIONAL INFORMATION This test was developed and its performance characteristics determined by [facility] in a manner consistent with CLIA requirements. This test has not been cleared or approved by the U.S. Food and Drug Administration. Test Performed by: [facility] - [facility] [address] [place] [address] Blood specimen (specimen) 11/20/2018 1:54 PM EDT 11/20/2018 3:37 PM EDT Narrative Resulting Agency Comment Spec In Lab Sarah Serra APRN LAB SEND OUT ORD ERABLES [facility] [place] [address] * Vitamin D, 25-Hydroxy (11/20/2018 1:54 PM EDT) Vitamin D Total 25 OH 56 30 - 100 ng/mL [facility] Comment: Deficient <10 ng/mL Insufficient 10 to 29 ng/mL Sufficient 30 to 100 ng/mL Potential Intoxication >100 ng/mL According to the US National Osteoporosis Foundation, Vitamin D concentrations >30 ng/mL are sufficient to protect bone health. ??The National Kidney Foundation has similarly stated that patients with Vitamin D concentrations <30ng/mL should be considered to be insufficient or deficient. http://[employer].com/nkf-guidelines http://[employer].com/nejm-VitD The [employer]S iSYS Vitamin D Immunoassay detects both 25-OH Vitamin D2 and 25-OH Vitamin D3, but only a total Vitamin D concentration is reported. 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
--- OUTSIDE RECORDS SUMMARY | 2024-06-28 22:02 | XMS_ITS | Encounter Summary ---
Author Organization [facility] [place] [address] Care Team Providers Care Senior Health Consultant Name Role Phone Luis Manuel Blanca MD Primary Care Provider [phone] Encounter Details Date Type Department Care Team (Late st Contact Info) Description 06/07/2017 Telephone [place] [address] Terri Hsu APRN [facility] [place] [address] Social History Tobacco Use Types Packs/Day Years [...] Telephone Encounter - Lili Otero RN - 06/08/2017 3:07 PM EDT Call placed to caregiver. Patient not needing any labs prior to appointment next week. LVM * Telephone Encounter - Lili Otero RN - 06/07/2017 9:16 AM EDT Call placed to patient's caregiver. Spoke to Agusto. No concerns at this time. Terri Hsu APRN made aware. Waiting for any new lab orders prior to next week's appointment (if needed) from Terri. Caregiver verbalized understanding of the plan. * Telephone Encounter - Risa Carrizales RN - 06/07/2017 8:34 AM EDT VM message from nurse line left on 06/06/17 Caller: Lulu - pt caregiver Reason for call: ? Getting labs done before pt has appt with Terri on 06/14 so have results to review at the appt Contact #: [phone] documented in this encounter Plan of Treatment Upcoming Encounters Date Type Department Care Team (Late st Contact Info) Description 08/06/2024 11:00 AM EST Office [place] [address] Sarah Serra APRN [facility] [place] [address] documented as of this encounter Visit Diagnoses Not on filedocumented in this encounter Care Teams Senior Health Consultant Relationship Specialty Start Date End Date Luis Manuel Blanca MD [facility] [address] [place] [address] PCP - General Family Medicine 06/24/16 documented as of this encounter
--- OUTSIDE RECORDS SUMMARY | 2024-06-28 22:02 | XMS_ITS | Encounter Summary ---
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 [address] Jono Lynn MD [facility] [address] Referral ID Status Reason Start Date Expiration Date V isits Requested Visits Authorized [id number] Canceled Consult, Test & Treat 06/14/2017 06/14/2018 1 1 Encounter Details Date Type Department Care Team (Late st Contact Info) Description 06/14/2017 2:00 PM EST [place] [address] Terri Hsu APRN [facility] 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 Social [...] Taken Comments Blood Pressure - - Pulse 75 06/14/2017 2:07 PM EST Temperature - - Respiratory Rate - - Oxygen Saturation - - Inhaled Oxygen Concentration - - Weight 68 kg (150 lb) 06/14/2017 2:07 PM EST rep orted Height 147.3 cm (4' 10) 06/14/2017 2:07 PM EST reported Body Mass Index 31.35 06/14/2017 2:07 PM EST documented in this encounter Progress Notes * Shadi Terri L, POLICE COMMUNICATIONS OPERATOR - 06/14/2017 2:00 PM EST Subjective: [facility] OUTPATIENT FOLLOW UP NOTE [...] hair fell out) Hx GTC: Y Hx Status: Hx Tongue Biting: Y Hx Incontinence: Y Daytime Preponderance: Usually occur in sleep, sometimes during the day Prior workup: VEEG:VEEG monitoring prior to 2003, guardian is unsure of results EEG: MRI: MRI Brain (02/28/2002): FINDINGS; There are no intracranial signal abnormalities. The bilateralhippocampi are normally formed. The ventricles and subarachnoid spaces are normal in size and configuration. There is no midline shift or mass effect. The gradient recall sequences demonstrate normalsignal. IMPRESSION: Normal. CT: SPECT: S/P: VNS in 2003 Risk factors for epilepsy: Developmental Delay. No Hx of head trauma, meningoencephalitis, complications, complex febrile seizures. No family history of epilepsy. Recent history: Pt taken off depakote due to gastric abnormalities on endoscopy. She was subsequently started on Keppra but developed some behavioral issues. She was seen in clinic and switched to Zonegran. She continued to have seizures and was crossed over to Banzel. She continued to have seizures and clobabzam was started. Depakote has worked the best in terms of seizures in the past. Interval history She continues to have seizures however much less frequently now. She is having clusters of head drops about once a month now. She started the Mavatar Web and it was really helping with the seizures and her mood. However, her home provider was having to pay out of pocket for it and it was costing over $500 per month getting it from the [facility] [employer] website. She now uses less of the CW but also some products from the [facility] including a Sativa type of oil in the daytime and an Indica at bedtime. This has helped immensely. Her behavior is better and she is sleepingbetter and having very few seizures. Her sense of well being is much improved and she is happy. Her home provider tried the midazolam and it worked quickly to stop the seizure but then the seizures returned and she had to give lorazepam. This was before she started the medical marijuana. She has not had to use the midazolam since starting that. Social History: Social History Social History ??? [...] ??? Not on file Social History Narrative Past Medical History: Diagnosis Date ??? Hyperlipidemia ??? MR (mental retardation) ??? RIA (obstructive sleep apnea) ??? Seizures Current Outpatient Prescriptions on File Prior to Visit Medication Sig Dispense Refill ??? cholecalciferol, Vitamin D3, (VITAMIN D) 1,000 unit Capsule Take 1 capsule by mouth 2 times daily. 60 capsule 5 ??? OXcarbazepine (TRILEPTAL) 300 mg Tablet Take 1 in AM and 2 in afternoon and evening. Brand namemedically necessary. 150 tablet 5 ??? cloBAZam (ONFI) 10 mg Tablet Take 2 tablets by mouth nightly. 60 tablet 5 ??? QUEtiapine (SEROQUEL) 50 mg Tablet Take 50 mg by mouth nightly. ??? LORazepam (ATIVAN) 1 mg Tablet Take 1-2 tablets at onset of seizure symptoms, if ineffective after 30 minutes may repeat dose. If still not effective please call neurologist front end software engineer. No more plah1ax daily. 45 tablet 3 ??? UNABLE TO [...] If still not effective please call neurologist front end software engineer. 1 kit 3 ??? furosemide (LASIX) 20 [...] ??? Risedronate Sodium Nausea And Vomiting Objective: Pulse 75, height (!) 147.3 cm (4' 10), weight 68 kg (150 lb). Awake and more interactive than at her last visit. She was proud to show me her new watch and sun glasses. Sitting in wheelchair, uses both upper extremities, can follow some simple commands, she was anxious to take money out of my handwhich is her usual behavior. VNS interrogated, parameters as found below: Output current: 2.0 milliamps Signal frequency: 20 Hertz Pulse Width:500 microseconds On time: 14 sec Off time:1.1 min Magnet current:2.25 milliamps Pulse Width: 500 microseconds Battery: IFI indicator is on YELLOW indicating she has about 4-5 months left of battery life Assessment and Plan: - Epilepsy: She has had a roland course in terms of seizures and med changes. She has done well since starting medical marijuana. She should continue this as she has had the best control since the Depakote which she can not longer take. Her last trileptal level was somewhat high. Will try reducing the dose to 600mg BID and see how she does. VNS near end of service. [facility] - Screen for medication toxicity: Last CBC, CMP was wnl. vitamin D was 14 and she started a supplemnt and AED levels were slightly elevated as above. - The patient is currently not a candidate for epilepsy surgery. - Mobility: Somewhat improved since her last visit - Bone health: Pt is currently taking Vitamin D. Should check a DEXA in the near future. - Social and psychiatric issues: Improved as above. - Caregiver counselled about medication options, benefit and side effects. - Patient will be seen again by the epilepsy team in 4 months - Caregiver verbalizes understanding and agrees with plan. 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
--- OUTSIDE RECORDS SUMMARY | 2024-06-28 22:02 | XMS_ITS | Encounter Summary ---
Author Organization [facility] [place] [address] Care Team Providers Care Water Pipe Installer Name Role Phone Luis Manuel Blanca MD Primary Care Provider [phone] Reason for Visit * Reason Onset Date Comments Other 12/07/2016 Encounter Details Date Type Department Care Team (Late st Contact Info) Description 12/07/2016 [place] [phone] Terri Hsu APRN [facility] [place] [address] Other Social History Tobacco Use Types Packs/Day [...] Telephone Encounter - Mita Win RN - 12/09/2016 1:23 PM EDT ?? i wrote a letter and the woman wanted it faxed to [phone]. ??Can you help me get that out to her tomorrow? Terri Hsu APRN phoned Keiry back. She wrote a letter and Keiry would like this faxed to [phone]. Letter faxed to [facility] attn: Keiry to fax number [phone] at 13:03 pm. * Telephone Encounter - Mita iWn RN - 12/07/2016 11:45 AM EDT Keiry from [facility] phoned. She states she needs to speak directly with Terri regarding pt. She states they have been trying to connect and have not been able to. She can be contacted at [phone]. Plan: Keiry aware I will forward to Terri Hsu APRN. documented in this encounter Plan of Treatment Upcoming Encounters Date Type Department Care Team (Late st Contact Info) Description 08/06/2024 11:00 AM EST [place] [address] Sarah Serra APRN [facility] [place] [address] documented as of this encounter Visit Diagnoses Not on filedocumented in this encounter Care Teams Water Pipe Installer Relationship Specialty Start Date End Date Luis Manuel Blanca MD [address] [place] [address] [address] [facility] [address] [place] [address] PCP - General Family Medicine 06/24/16 documented as of this encounter
--- OUTSIDE RECORDS SUMMARY | 2024-06-28 22:02 | XMS_ITS | Encounter Summary ---
[place] [address] Care Team Providers Care Explosives Worker Name Role Phone Luis Manuel Blanca MD Primary Care Provider [phone] [phone] Encounter Details Date Type Department Care Team (Late st Contact Info) Description 06/07/2018 [place] [address] Sarah Serra FARM EQUIPMENT SERVICE TECHNICIAN [facility] [place] [address] Social History Tobacco Use Types Packs/Day Years [...] Telephone Encounter - Lili Otero RN - 06/07/2018 12:40 PM EDT 06/07/18 1230 Call placed to patient/caller. Made aware that per Sarah Serra FARM EQUIPMENT SERVICE TECHNICIAN: ok to take Phenobarb around 120mg-130mg nightly approximately. Patient/caller in agreement and verbalized understanding of the plan. * Telephone Encounter - Lili Otero RN - 06/07/2018 11:48 AM EDT Call placed to patient/caller. Spoke to Lulu (patient's caregiver). Reported that patient has been taking 64.8 mg of Phenobarbital - 2 tablets nightly. But her latest refill was for Phenobarb 60 mg - 2 tablets nightly. Need clarification on this dose. Report forwarded to Sarah Serra APRN. * Telephone Encounter - Gali Emanuel - 06/07/2018 11:27 AM EDT Clinical Cone Marker Message Caller: Lulu If not Pt / Relation to pt: caregiver Call back Number:[phone] Best time to reach caller: anytime Reason for call: clarification Message/information for the nurse: Patient caregiver called needing clarification of patients PHENOBARBITAL dosage Disposition of Call ?? Routine Message sent to the Nurse documented in this encounter Plan of Treatment Upcoming Encounters Date Type Department Care Team (Late st Contact Info) Description 08/06/2024 11:00 AM EST [place] [address] Sarah Serra FARM EQUIPMENT SERVICE TECHNICIAN [facility] [place] [address] documented as of this encounter Visit Diagnoses Not on filedocumented in this encounter Care Teams Explosives Worker Relationship Specialty Start Date End Date Luis Manuel Blanca MD [facility] [address] [place] [address] PCP - General Family Medicine 06/24/16 documented as of this encounter
--- OUTSIDE RECORDS SUMMARY | 2024-06-28 22:02 | XMS_ITS | Encounter Summary ---
[place] [address] Care Team Providers Care Loan Processing Supervisor Name Role Phone Luis Manuel Blanca MD Primary Care Provider [phone] [phone] Encounter Details Date Type Department Care Team (Late st Contact Info) Description 10/10/2017 External [place] [address] Sarah Serra ENERGY CONSERVATION SPECIALIST [facility] [place] [address] Social History Tobacco Use Types Packs/Day Years [...] 11:00 AM EST [place] [address] Sarah Serra ENERGY CONSERVATION SPECIALIST [facility] [place] [address] documented as of this encounter Procedures Procedure Name Priority Date/Time Associated Diagnosis Comments OXCARBAZEPINE METABOLITE (MHC) Routine 10/04/2017 documented in this encounter Results * (ABNORMAL) Oxcarbazepine Metabolite (MHC) (10/04/2017) Oxcarbazep Met (Mhc) (DECEMBER) 24 3 - 35 Rufinamide Level (DECEMBER) 44.2(A) 5 - 30.0 Phenobarbital 39.2 15 - 40.0 Blood specimen (specimen) 10/04/2017 Historical Provider LAB SEND OUT JIMENEZ MARCH documented in this encounter Visit Diagnoses Not on filedocumented in this encounter Care Teams Loan Processing Supervisor Relationship Specialty Start Date End Date Luis Manuel Blanca MD [address] [place] [address] PCP - General Family Medicine 06/24/16 documented as of this encounter
--- OUTSIDE RECORDS SUMMARY | 2024-06-28 22:02 | XMS_ITS | Encounter Summary ---
Author Organization [facility] [place] [address] Care Team Providers Care Lawn Care Technician Name Role Phone Luis Manuel Blanca MD Primary Care Provider [phone] Encounter Details Date Type Department Care Team (Late st Contact Info) Description 10/21/2016 [place] [address] Terri Hsu APRN [facility] [place] [address] Social History Tobacco Use Types Packs/Day Years [...] Telephone Encounter - Mita Win RN - 10/21/2016 11:20 AM EDT I phoned Keiry back. She is looking for orders for hemp drops. I explained we don't write orders for hemp/medical marijuana. Keiry wants to know if Terri would write something about pt taking it. She would like to speak with Terri directly about this and other issues as well. I explained that Terri is not in clinic now until Monday10/31/16. Keiry states that she is fine with waiting for to return. Plan: as above and I will forward to Terri Hsu APRN for review. * Telephone Encounter - Kareem Hilario - 10/21/2016 10:57 AM EDT Caller: Keiry Milton If not Pt / Relation to pt: Customer Insight Analyst Best time to reach caller: Any Before 2:30pm - Informed caller that nurse will call back by the end of the day Best number to reach caller: [phone] Reason for call: Keiry called regarding an order for [employer] (hemp drops) and if there hasbeen one placed somewhere. She stated urgency and that she really needs to talk with Terri RODRIGUEZ. documented in this encounter Plan of Treatment Upcoming Encounters Date Type Department Care Team (Late st Contact Info) Description 08/06/2024 11:00 AM EST Office [place] [address] Sarah Serra APRN [facility] [place] [place] [address] documented as of this encounter Visit Diagnoses Not on filedocumented in this encounter Care Teams Lawn Care Technician Relationship Specialty Start Date End Date Luis Manuel Blanca MD [address] [place] [address] PCP - General Family Medicine 06/24/16 documented as of this encounter
--- OUTSIDE RECORDS SUMMARY | 2024-06-28 22:02 | XMS_ITS | Encounter Summary ---
[place] [address] Care Team Providers Care Molder Foam Rubber Name Role Phone Luis Manuel Blanca MD Primary Care Provider [phone] [phone] Encounter Details Date Type Department Care Team (Late st Contact Info) Description 09/27/2017 12:34 PM EST Anesthesia Event [place] [phone] Bishop Duque MD [facility] [place] [address] Ethan Melchor MD [facility] [place] [address] Anesthesia Record Procedure Summary Procedure Name Responsible Anesthesiologist Anesthesia Start Time Anesthesia Stop Time PLACEMENT CRANIAL NEUROSTIMULATOR (WRVU 6.05) (Chest Wall) Bishop Duque MD 09/27/17 1234 09/27/17 1350 Events Date Time Event Comment 09/27/2017 1152 1234 AN Verify 1234 Start 1234 An Start Data 1239 An Induction 1241 An Intubation 1243 Anesthesia Ready 1339 Extubation/LMA Out 1350 an stop data 1350 Recovery or ICU Handoff Estefany ent care was transferred to the destination unit staff after review of the patient's medical history, current anesthetic/surgical status and plan, according to the Provider Handoff Checklist. 1350 Stop Meds Name Total Midazolam 2 mg Propofol 140 mg Ondansetron 4 mg vancomycin 1 g in 0.9 % sodium chloride 200 mL 1 g cefTRIAXone (ROCEPHIN) 1 g v ial attach to sodium chloride 0.9% 50 mL Mini-Bag Plus 1 g lactated Ringers infusion 1,000 mL 800 m L * Agents Name O2 Air N2O Sevoflurane (et) * Blood No blood administrations on file. Lines, Drains, and Airways Type Details Placement Removal Rash/Skin Irritation 07/09/16; 194; arm ; macular; 04/04/22 (LDA cleanup utility RA#[id number]); 1715 (LDA cleanup utility RA#[id number]) 07/09/16 1940 by Jayne Carlson RN 04/04/22 171 by Ilya Hernandez (RETIRED) Peripheral IV Line - Single Lumen 09/27/17; 1149; metacarpal vein (top of hand), right; keii-qgm-wpuwnm catheter system; 22 gauge; laura lucero; intradermal injection, tolerated well; 09/27/17; 1507 09/27/17 1149 by Laura Lucero RN 09/27/17 1507 by Erika Vaughan RN Supraglottic Mask Ventilation: Ea sy (1); LMA Type: iGel; LMA Size: 4; Inserted by: Sara Kapoor CRNA; Removal Date: 09/27/17; Removal Time: 1339 09/27/17 1254 by Ladonna Kapoor CRNA 09/27/17 1339 by Ladonna Kapoor CRNA Incision 09/27/17; 1305; ches t; 04/04/22 (LDA cleanup utility RA#[id number]); 1715 (LDA cleanup utility RA#[id number]) 09/27/17 1305 by Risa Goddard RN 04/04/22 1715 by Ilya Hernandez documented in this encounter Social History Tobacco Use Types Packs/Day Years Used Date Smoking Tobacco: Never Smokeless Tobacco: Never Alcohol Use Standard Drinks/Week Comments No 0 (1 standard drink = 0.6 oz pur e alcohol) Sex and Gender Information Value Date Recorded Sex Assigned at Not on file Gender Identity Not on file Sexual Orientation Not on file documented as of this encounter OR Notes * Anesthesia Postprocedure Evaluation - Bishop Duque MD - 09/27/2017 4:39 PM EST [facility] Department of Anesthesiology Post-procedure Note Patient: Cinthya Brown Procedure Summary Date Anesthesia Start Anesthesia Stop Room / Location 09/27/17 1234 1350 [facility] Procedure Diagnosis Surgeon Responsible Provider PLACEMENT CRANIAL NEUROSTIMULATOR (WRVU 6.05) (N/A Chest Wall); ELEC ANALYSIS IMPL NEUROSTIM\PULSE GEN SYS-W/ INTRAOP OR SUBSQ PROGRAMMING (WRVU 0.78) (Left Chest Wall) (epilepsy ) Jono Lynn MD Bertrand, Marc L, MD All Anesthesia Providers: Anesthesiologist: Bishop Duque MD TOLL SETTLEMENT CLERK: Ladonna Kapoor CRNA Most Recent Vitals: 09/27/17 1445 BP: 94/77 Pulse: Resp: Temp: SpO2: 97% Pain Patient Location: PACU/[facility] Level of Consciousness: Awake and Alert Pain Management: Satisfactory Analgesia PONV: None Cardiovascular Status: At Baseline Respiratory Status: At Baseline Postoperative Fluid Status: Intravascular EUvolemia Possible Anesthetic Complications: NONE apparent at time of evaluation Final Primary Anesthesia Type: General (The anesthetic type performed was the same as planned.) Comments: * Anesthesia Preprocedure Evaluation - Bishop Duque MD - 09/26/2017 3:18 PM EST Pre-Anesthesia Evaluation for: Cinthya Brown a 57 y.o. female. Procedure(s): PLACEMENT CRANIAL NEUROSTIMULATOR (WRVU 6.05) ELEC ANALYSIS IMPL NEUROSTIM\PULSE GEN SYS-W/ INTRAOP OR SUBSQ PROGRAMMING (WRVU 0.78) Patient Active Problem List Diagnosis ??? CAP (community acquired pneumonia) ??? Epilepsy with status epilepticus ??? Seizure ??? Status epilepticus ??? Sleep apnea ??? Mental retardation Past Medical History: Diagnosis Date ??? Hyperlipidemia ??? MR (mental retardation) ??? RIA (obstructive sleep apnea) ??? Seizures No past surgical history on file. Social History Substance Use Topics ??? Smoking status: Never Smoker ??? Smokeless tobacco: Never Used ??? Alcohol use No History Drug Use No Allergies Allergen Reactions ??? Amoxicillin-Pot Clavulanate Rash ??? Risedronate Sodium Nausea And Vomiting Medications: MAR and/or home medications have been reviewed. Physical Exam: There were no vitals filed for this visit. There is no height or weight on file to calculate BMI. Airway Assessment: Mallampati: III TM distance: >3 FB Cardiovascular Assessment: Rhythm: regular Rate: normal Pulmonary Assessment: Dental Assessment: Comment: Multiple missing teeth. Large tongue Misc Assessment: Anesthesia Plan: ASA 3 general, with a(n) intravenous induction Cinthya Brown is a 57 y.o. 68kg female with epilepsy scheduled for vns battery change. Medical history reviewed; significant for severe developmental delay, seizures, RIA. Non smoker. Anesthetic history: previously LMA 4 for placement, felt that she would not tolerate MAC. Based on discussion with her caregiver, no recent change in health other than increase in the frequency of her Sz's. Denies recent URI, f/s/c, GERD. NPO status appropriate. Anesthetic plan: GA/SGA. Region - Other Informed Consent: Anesthetic plan and risks discussed with legal guardian. Plan discussed with TOLL SETTLEMENT CLERK. PAT Staff Note documented in this encounter Plan of Treatment Upcoming Encounters Date Type Department Care Team (Late st Contact Info) Description 08/06/2024 11:00 AM EST Office [place] [address] Sarah Serra APRN [facility] [place] [address] documented as of this encounter Visit Diagnoses Not on filedocumented in this encounter Administered Medications Inactive Administered Medications - up to 3 most recent administrations Medication Order MAR Action Action Date Dose Rate Site cefTRIAXone (ROCEPHIN) 1 g vial attach to sodium chloride 0.9% 50 mL Mini-Bag Plus 1 g, Intravenous, ONCE, 1 dose, On Mon09/27/17 at 1245, Administer over 30 Minutes, Indication for (Active or Suspected): Prophylaxis New Bag 09/27/2017 12:46 PM EST 1 g lactated Ringers infusion 1,000 mL 1,000 mL, at 100 mL/hr, Intravenous, CONTINUOUS, Starting on Mon09/27/17 at 1145, Until Mon09/27/17 at 1507, Day of Surgery (Day of Procedure) New Bag 09/27/2017 12:34 PM EST New Bag 09/27/2017 11:45 AM EST 1,000 mLs 100 mL/hr midazolam (PF) (VERSED) 1 mg/mL multi-dose injection PRN, Starting on Mon09/27/17 at 1234, Until Mon09/27/17 at 1350, Sleep, Anesthesia Intra-op, Routine Given 09/27/2017 12:38 PM EST 1 mg Given 09/27/2017 12:34 PM EST 1 mg ondansetron (ZOFRAN) injection PRN, Starting on Mon09/27/17 at 1310, Until Mon09/27/17 at 1350, Nausea, Anesthesia Intra-op, Routine Given 09/27/2017 1:10 PM EST 4 mg propofol (DIPRIVAN) 10 mg/mL bolus injection (Anesthesia) PRN, Starting on Mon09/27/17 at 1239, Until Mon09/27/17 at 1350, Anesthesia Intra-op Given 09/27/2017 12:39 PM EST 14 0 mg vancomycin 1 g in 0.9 % sodium chloride 200 mL 1 g, Intravenous, at 200 mL/hr, ONCE, [...] STAT, Indication for (Active or Suspected): Prophylaxis Given 09/27/2017 12:46 PM EST 1 g documented in this encounter Care Teams Molder Foam Rubber Relationship Specialty Start Date End Date Luis Manuel Blanca MD [address] [place] [address] [address] [place] [address] PCP - General Family Medicine 06/24/16 documented as of this encounter
--- OUTSIDE RECORDS SUMMARY | 2024-06-28 22:02 | XMS_ITS | Encounter Summary ---
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 Per Sarah Serra SAFETY TRAINER: ok to go back to previous dosingof Trileptal - 600 mg AM, 300 mg noon and 600 mg PM. And to call for any worsening of symptoms. Rx request sent to Sarah Pierce APRN for approval. Patient advised to call for any other concerns. Patient in agreement and verbalized understanding of the plan. * Telephone Encounter - Lili Otero RN - 08/24/2017 9:22 AM EST LV - 06/14/17 w/ Terri Hsu APRN [place] - 11/14/17 w/ Sarah Serra APRN Received a call from Lulu (patient's caregiver). Per Lulu patient has having weekly seizurecompared to monthly seizure before.Patient's Trileptal was decreased. Currently taking 300 mg in AM, 300 mg in noon and 600 mg in PM. Patient was previously taking 600 mg AM, 300 mg noon and 600 mg PM. No changes with current medication. No chance of missing any medication. Sleeping - ok Eating - ok Bowel/ Bladder - ok Infection/ cough/ cold -none Routine changes/ stressors - none Lulu wanted to know if patient can go back to the old Trileptal dosing. Report forwarded to Sarah Serra APRN for review and comment. Pt/caller aware they will be called back with input when available and to call back in the interim if additional questions or change arise before they hear back from this office. Pt/caller agreeable to this plan. 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
--- OUTSIDE RECORDS SUMMARY | 2024-06-28 22:02 | XMS_ITS | Encounter Summary ---
[place] [address] Care Team Providers Care Floor Covering Layer Name Role Phone Luis Manuel Blanca MD Primary Care Provider [phone] [phone] Encounter Details Date Type Department Care Team (Late st Contact Info) Description 10/16/2017 [place] [address] Sarah Serra APRN [facility] [place] [address] Social History Tobacco Use Types Packs/Day Years [...] Telephone Encounter - Lili Otero RN - 10/16/2017 8:33 AM EDT Received call from [facility] [employer]. She wanted to know Cinthya's seizure rescue plan. Patient's medication list faxed to . Lulu (patient's caregiver), verified that this is her placement company. Verbalized agreement to the plan. documented in this encounter Plan of Treatment Upcoming Encounters Date Type Department Care Team (Late st Contact Info) Description 08/06/2024 11:00 AM EST [place] [address] Sarah Serra APRN [facility] [place] [address] documented as of this encounter Visit Diagnoses Not on filedocumented in this encounter Care Teams Floor Covering Layer Relationship Specialty Start Date End Date Luis Manuel Blanca MD [address] [facility] [place] [address] PCP - General Family Medicine 06/24/16 documented as of this encounter
--- OUTSIDE RECORDS SUMMARY | 2024-06-28 22:02 | XMS_ITS | Encounter Summary ---
[place] [address] Care Team Providers Care Roping Tender Name Role Phone Luis Manuel Blanca MD Primary Care Provider [phone] [phone] Reason for Visit * Reason Onset Date Comments Medication Refill 04/04/2017 Encounter Details Date Type Department Care Team (Late st Contact Info) Description 04/04/2017 [place] [address] Terri Hsu [facility] [place] [address] Social History Tobacco Use Types Packs/Day Years [...] 11:00 AM EST [place] [address] Sarah Serra RAM PRESS OPERATOR [facility] [place] [address] documented as of this encounter Visit Diagnoses Not on filedocumented in this encounter Care Teams Roping Tender Relationship Specialty Start Date End Date Luis Manuel Blanca MD [address] [facility] [place] [address] PCP - General Family Medicine 06/24/16 documented as of this encounter
--- OUTSIDE RECORDS SUMMARY | 2024-06-28 22:02 | XMS_ITS | Encounter Summary ---
Author Organization [facility] [place] [address] Care Team Providers Care Senior Merchandiser Name Role Phone Luis Manuel Blanca MD Primary Care Provider [phone] [phone] Encounter Details Date Type Department Care Team (Latest Contact Info) Description 09/27/2017 9:48 AM EST - 09/27/2017 3:23 PM EST Hospital Encounter [place] [phone] Jono Lynn MD [facility] [place] [address] Discharge Disposition: Home Social History Tobacco Use [...] Sign Reading Time Taken Comments Blood Pressure 94/77 09/27/2017 2:45 PM EST Pulse 69 09/27/2017 11:07 AM EST Temperature 36.9 ??C (98.4 ??F) 09/27/2017 1:45 PM ES T Respiratory Rate 20 09/27/2017 11:07 AM EST Oxygen Saturation 97% 09/27/2017 2:45 PM EST Inhaled Oxygen Concentration - - Weight [...] bladder symptoms. Hospital Course: Patient presented to [facility] and underwent the above [...] 3:30 PM Sarah Serra APRN Neurology at [place] [phone] Discharge Medications: Your Medications Continued medications with [...] If still not effective please call neurologist school operations manager. 15 mg Quantity: 1 kit Refills: 3 [...] If still not effective please call neurologist school operations manager. No more than 4mg daily. Quantity: 45 [...] week of discharge from the hospital. Neuro-oncology [phone] Radiation oncology [phone] Endocrinology [phone] Infectious disease [phone] Neurology [phone] Hematology/Oncology [phone] Plastic Surgery [phone] Trauma/General Surgery [phone] Urology [phone] Instructions Given to Patient at Discharge: Patient Instructions VNS BATTERY CHANGE DISCHARGE INSTRUCTIONS PRESCRIPTION INSTRUCTIONS: Please see the medication reconciliation list on this discharge summary for a current list of your medications. Stop the use of blood thinning medications until instructed otherwise by your surgical team. This includes medications known as antiplatelet, anticoagulant, and non-steroidal anti-inflammatory (NSAIDs) drugs. Common vvdo-ipe-tabqjyp medications which should be avoided include Aspirin, [...] to pass. These medications can be obtained rxgh-bbx-vzafppg and their use is recommended on an [...] On weekends or after office hours: Call [phone] and ask the vulcanizer operator to page the Neurosurgery Resident school operations manager. IMPORTANT PHONE NUMBERS: Outpatient Nurse ([place]) Inpatient Nurses Neurosurgical Resident On-Call (after 5pm or before 8am) Neurosurgery offices (Monday through Monday between 8am-5pm): Adult Neurosurgery Dr. Jono Noe Pediatric Neurosurgery Dr. Ethan Vogt Mid-level practitioners Ethan Sanchez, Physician Space Physicist Zeke Pride, Physician Space Physicist May Borja, Nurse Practitioner Tiff Lyon, Nurse Practitioner * Your surgeon may not be call or contact centre coach, so be ready to tell about yourself [...] anticoagulant, and non-steroidal anti-inflammatory (NSAIDs) drugs. Common trld-yut-pgckrua medications which should be avoided include Aspirin, [...] to pass. These medications can be obtained rlbz-euo-jocnrdi and their use is recommended on an [...] daily. 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 No more than 4mg daily. 45 tablet 3 03/20/2017 05/15/2018 melatonin 3 mg Tablet Take 6 mg by mouth nightly. 11/30/2023 sertraline (ZOLOFT) 100 mg Tablet Take 1 tablet by mouth daily. 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 1 kit 3 01/06/2016 11/20/2018 furosemide (LASIX) 20 mg Tablet Take 20 mg by mouth daily. 07/19/2022 midazolam, PF, (VERSED) 5 mg/mL Solution 1 mL by Nasal route daily as needed (give 1 ml via atomizer for cluster of seizures). 2 mL 3 08/27/2014 08/31/2018 documented as of this encounter H&P Notes * Azam Ekcert MD - 09/27/2017 12:21 PM EST Neurosurgery Pre-operative H&P 09/27/2017 Cinthya Brown [id number] CC: Epilepsy, VNS IPG change HPI: [...] If still not effective please call neurologist school operations manager. No more afto4mq daily. 45 tablet 3 ??? UNABLE TO [...] If still not effective please call neurologist school operations manager. 1 kit 3 ??? loratadine (CLARITIN) 10 [...] Nerves: CN II - Visual acuity and meaz grossly intact, PERR Motor: No pronator drift. [...] Lynn MD - 09/27/2017 3:23 PM EST [facility] Operative Note Patient Name: Cinthya Brown : [id number] MR#: [id number] Case Date: 09/27/2017 Surgeon: Surgeon(s) and Role: [...] draped in the usual sterile fashion. A [facility] mandated hard-stop time out was then performed, [...] Serra APRN - 09/27/2017 2:00 PM EST Cinthya Brown had VNS battery replaced today, per [...] concerns, contact information provided. Sarah Serra APRN [facility] Epilepsy Program Department of Neurology Pager [phone] documented in this encounter Plan of Treatment Upcoming Encounters Date Type Department Care Team (Late st Contact Info) Description 08/06/2024 11:00 AM EST Office [place] [address] [facility] [place] [address] documented as of this encounter Procedures Procedure [...] Given 09/27/2017 2:05 PM EST 650 mg lactated Ringers infusion 1,000 mL 1,000 mL, [...] Provid er: Jono Lynn MD - Comment: 49735 units in a liter LR) BUpivacaine (PF) [...] RN) documented in this encounter Care Teams Senior Merchandiser Relationship Specialty Start Date End Date Luis Manuel Blanca MD [address] [facility] 1 [place] [address] PCP - General Family Medicine 06/24/16 documented as of this encounter
--- OUTSIDE RECORDS SUMMARY | 2024-06-28 22:02 | XMS_ITS | Encounter Summary ---
[place] [address] Care Team Providers Care Chief Of Anesthesiology Name Role Phone Luis Manuel Blanca MD Primary Care Provider [phone] Reason for Visit * Reason Onset Date Comments Other 10/10/2017 Encounter Details Date Type Department Care Team (Late st Contact Info) Description 10/10/2017 Telephone [place] [address] Sarah Serra APRN [facility] [place] [address] Other Social History Tobacco Use Types Packs/Day [...] Telephone Encounter - Lili Otero RN - 10/11/2017 1:21 PM EST 10/11/17 1320 Call placed to patient/caller. LVM. No changes at this time per Sarah Serra PARALLEL COMPUTING SOFTWARE ENGINEER. Advised to call for any other concerns. * Telephone Encounter - Lili Otero RN - 10/10/2017 12:34 PM EST Call placed to patient/caller. Talked to Lulu, made aware of recent lab results. Per Lulu, patient is doing better. No noted seizure activity since 10/04. She did mentioned that she increased patient's CBD last 10/05. And also noted that patient is coming up with a cold. Results for CINTHYA BROWN ( ) as of 10/10/2017 12:35 Ref. Range 10/04/2017 00:00 Oxcarbazep Met ([facility]) Latest Ref Range: 3 - 35 24 Phenobarb Lvl Latest Ref Range: 15 - 40.0 39.2 Rufinamide Level Latest Ref Range: 5 - 30.0 44.2 (A) Report forwarded to Sarah Serra APRN. Patient/ caller advised to call for any other concerns. Patient/ caller in agreement and verbalized understanding of the plan. * Telephone Encounter - Nicole Castellano - 10/10/2017 12:17 PM EST Caller: lulu If not Pt / Relation to pt: Best time to reach caller: anytime Before 2:30pm - Informed caller that nurse will call back by the end of the day Best number to reach caller: [phone] Reason for call: Lab/Test results: Results being requested: lab Where were tab/test done: [facility] When were lab/test done: 10/05/17 Disposition of Call: routine message to nurse Results are available in [facility] documented in this encounter Plan of Treatment Upcoming Encounters Date Type Department Care Team (Late st Contact Info) Description 08/06/2024 11:00 AM EST Office [place] [address] Sarah Serra APRN [facility] [place] [address] documented as of this encounter Visit Diagnoses Not on filedocumented in this encounter Care Teams Chief Of Anesthesiology Relationship Specialty Start Date End Date Luis Manuel Blanca MD [address] [place] [address] PCP - General Family Medicine 06/24/16 documented as of this encounter
--- OUTSIDE RECORDS SUMMARY | 2024-06-28 22:02 | XMS_ITS | Encounter Summary ---
[place] [address] Care Team Providers Care Library Clerical Assistant Name Role Phone Luis Manuel Blanca MD Primary Care Provider +1 [phone] Reason for Visit * Reason Onset Date Comments Other 09/03/2018 Encounter Details Date Type Department Care Team (Late st Contact Info) Description 09/03/2018 [place] [phone] Sarah Serra APRN [facility] [place] [address] Other Social History Tobacco Use Types Packs/Day [...] Telephone Encounter - Lili Otero RN - 09/11/2018 8:41 AM EST 09/11/18 0840 Call placed to patient/caller. Spoke to Lulu (patient's caregiver). Made aware thatper Sarah Serra GANG INVESTIGATOR to call if seizure worsen. Per Lulu, patient is doing well. No issuesat this time. Made aware of the Epilepsy support group here at [facility]. Verbalized that they might be able to attend the November. Patient/caller advised to call for any other concerns. Patient/caller in agreement and verbalized understanding of the plan. * Telephone Encounter - Lili Otero RN - 09/03/2018 11:12 AM EST LV - 05/15/18 [place] - 11/20/18 Call placed to patient/caller. Spoke to lulu (caregiver). Reported that patient had 2 big seizures this August ( and ). Reported that she noticed some change on her seizures. Patient has been having 10-15 seconds of seizures. It starts and stops. But it's one after the other. It lasted for at least 20 minutes. Patient seemed to be aware of what's going on and say a word or two during these events. Per Lulu, she's been giving the Ativan (if patient is able to swallow), then gives her the Diastat if still is happening. The Diastat is able to break these seizures. Lulu wanted to know if Cinthya needs to be sooner because of this change. Verbalized that patienthas a low grade last 1/2. Which might explain that seizure. Denies any recent illness. Advised to continue keeping track of seizure of seizures. Advised to marielle if symptoms worsen. Advised to call 911 for uncontrolled seizure with no response to PRNs. To call if patient has any respiratory issues or for any other urgent concerns. Report forwarded to Sarah Serra APRN for review and comment. Pt/caller aware they will be called back with input when available and to call back in the interim if additional questions or change arise before they hear back from this office. Pt/caller agreeable to this plan. * Telephone Encounter - Keith Falguni E - 09/03/2018 10:38 AM EST Clinical [place] Message Caller: Lulu Arellano If not Pt / Relation to pt: Caregiver Call back Number:[phone] Best time to reach caller: Anytime Reason for call: Has questions Message/information for the nurse: Patient's caregiver states she has some questions (would not elaborate). Disposition of Call ?? Routine Message sent to the Nurse documented in this encounter Plan of Treatment Upcoming Encounters Date Type Department Care Team (Late st Contact Info) Description 08/06/2024 11:00 AM EST Office [place] [address] Sarah Serra APRN [facility] [place] [address] documented as of this encounter Visit Diagnoses Not on filedocumented in this encounter Care Teams Library Clerical Assistant Relationship Specialty Start Date End Date Luis Manuel Blanca MD [address] [place] [address] [address] [facility] 1 [place] [address] PCP - General Family Medicine 06/24/16 documented as of this encounter
--- OUTSIDE RECORDS SUMMARY | 2024-06-28 22:02 | XMS_ITS | Encounter Summary ---
Author Organization [facility] [place] [address] Care Team Providers Care Gang Knife Fish Chopper Name Role Phone Luis Manuel Blanca MD Primary Care Provider [phone] [phone] Encounter Details Date Type Department Care Team (Latest Contact Info) Description 02/14/2018 9:33 PM EDT - 02/14/2018 11:59 PM EDT Hospital [place] [address] Discharge Disposition: Home Social History Tobacco Use [...] by mouth daily. OXcarbazepine (TRILEPTAL) 150 mg TabletIndications:Sei shanesue Take at noontime (in addition to 300mg tab). BRAND NAME only. 30 tablet 5 11/15/2017 05/07/2018 OXcarbazepine (TRILEPTAL) 300 mg Tablet Take 600 [...] If still not effective please call neurologist information systems security manager. No more than 4mg daily. 45 [...] If still not effective please call neurologist information systems security manager. 1 kit 3 01/06/2016 11/20/2018 furosemide [...] 11:00 AM EST [place] [address] Sarah Serra APRN [facility] [place] [address] documented as of this encounter Procedures Procedure Name Priority Date/Time Associated Diagnosis Comments SURGICAL PATHOLOGY REPORT Routine 02/14/2018 12:00 PM EDT documented in this encounter Results * Surgical Pathology Report (02/14/2018 12:00 PM EDT) Final Diagnosis [id number] ? Location: [facility] The signing pathologist has (i) examined the relevant preparation(s) for the specimen(s) and (ii) rendered or confirmed the diagnosis(es). . ?Surgical Pathology DIAGNOSIS A- Antrum, biopsy: 1. Gastric antral mucosa with reactive gastropathy, no H. pylori-like organism seen on H &E stain 2. Squamocolumnar junctional mucosa without evidence of intestinal metaplasia, see Note Note: Note mismatch between the histology and the submitted specimen label. GE junctional tissue was introduced into this specimen somewhere in the chain of processing. B - Body of stomach, biopsy: 1. Gastric fundic gland polyp 2. Gastric fundic gland mucosa with nonspecific parietal cell alterations of the type seen in patients on PPI therapy, no H. pylori-like organism seen on H ?&E stain C - Distal esophagus, biopsy: Esophageal squamous mucosa within normal limits D - Transverse colon, polypectomy: Tubular adenoma E - Hepatic flexure, polypectomy: Tubular adenoma F - Proximal rectum, polypectomy: Tubular adenoma G - Distal rectum, polypectomy: Tubular adenoma CR-[id number] Electronically signed by: ??Umair Porter MD, I Verified: ??02/16/2018 ?Pathologist Performed at: ??-[facility] [place], [place], [place] ADDITIONAL STUDIES Whole slide scan: [id number] CLINICAL INFORMATION Specimen Submitted: A - Antrum bx 's B - Body of stomach bx ??'s C - Distal esophagus bx ??'s D - Transverse colon polyp E - Hepatic flexure polyp F - Rectal polyp proximal G - Distal rectal polyp Clinical History and Diagnosis: Gastritis, history of stomach ulcers, history of polyps Referring Identifier: ?? (not provided) . CLINICAL INFORMATION Report to: Luis Manuel Blanca SPECIMEN PROCESSING A - Labeled/Fixative: Antrum biopsy, formalin. Quantity/Size: Four, ranging from 0.3-0.4 cm. Tissue Description: Soft, servin-pink and servin-white tissue. Sections/Processi ng: (T1) B - Labeled/Fixative: Body of stomach biopsy, formalin. Quantity/Size: Two, 0.2 and 0.3 cm. Tissue Description: Soft, servin-pink tissue. Sections/Processi ng: (T1) C - Labeled/Fixative: Distal esophagus biopsy, formalin. Quantity/Size: Two, 0.2 and 0.3 cm. Tissue Description: Soft, servin-white and translucent tissue. Sections/Processi ng: (T1) D - Labeled/Fixative: Transverse colon polyp, formalin. Quantity/Size: One, 0.6 x 0.4 x 0.3 cm. Tissue Description: Soft but firm, servin-pink polyp. Sections/Processi ng: The polyp is inked at the base and bisected (T1) E - Labeled/Fixative: Hepatic flexure polyp, formalin. Quantity/Size: One, 0.4 cm. Tissue Description: Soft, servin-white polyp. Sections/Processi ng: Submitted intact. (T1) F - Labeled/Fixative: Proximal rectal polyp, formalin. Quantity/Size: One, 0.3 cm. Tissue Description: Soft, servin-pink polypoid tissue. Sections/Processi ng: (T1) G - Labeled/Fixative: Distal rectal polyp, formalin. Quantity/Size: Three, averaging 0.3 cm. Tissue Description: Soft, servin-white tissue and servin-yellow polypoid tissue. Sections/Processi ng: (T1) ??apb 02/16/2018 3:09 PM EDT [facility] GI Biopsy 02/14/2018 12:0 0 PM EDT 02/14/2018 12:00 PM EDT GI Biopsy 02/14/2018 12:0 0 PM EDT 02/14/2018 12:00 PM EDT GI Biopsy 02/14/2018 12:0 0 PM EDT 02/14/2018 12:00 PM EDT GI Biopsy 02/14/2018 12:0 0 PM EDT 02/14/2018 12:00 PM EDT GI Biopsy 02/14/2018 12:0 0 PM EDT 02/14/2018 12:00 PM EDT GI Biopsy 02/14/2018 12:0 0 PM EDT 02/14/2018 12:00 PM EDT GI Biopsy 02/14/2018 12:0 0 PM EDT 02/14/2018 12:00 PM EDT Chris Hagen DO PATHOLOGY/CYT OLOGY ORDERABLES Performing Organization Address City/State/[facility] Co de Phone Number [facility] [place] [phone] documented in this encounter Visit Diagnoses Not on filedocumented in this encounter Care Teams Gang Knife Fish Chopper Relationship Specialty Start Date End Date Luis Manuel Blanca MD [address] [place] [address] PCP - General Family Medicine 06/24/16 documented as of this encounter
--- OUTSIDE RECORDS SUMMARY | 2024-06-28 22:02 | XMS_ITS | Encounter Summary ---
[place] [address] Care Team Providers Care Research And Development Manager Name Role Phone Luis Manuel Blanca MD Primary Care Provider +1 [phone] Reason for Visit * Reason Onset Date Comments Other 01/23/2019 Encounter Details Date Type Department Care Team (Late st Contact Info) Description 01/23/2019 [place] [address] Sarah Serra APRN [facility] [place] [address] Epilepsy seizure, generalized, convulsive (Primary Dx) Social [...] Telephone Encounter - Lili Otero RN - 01/23/2019 2:31 PM EDT Spoke to Lulu (patient's caregiver). She wanted to follow up on the Epidiolex prescription. Report forwarded to Sarah Serra APRN. * Telephone Encounter - Emelia Lopez - 01/23/2019 12:23 PM EDT Clinical [place] Message Caller: Lulu If not Pt / Relation to pt: Emergency contact Call back Number: [phone] Reason for call: CBD Oil Message/information for the nurse: Lulu called requesting an update on whether or not the pt can receive her CBD oil through the pharmacy. Disposition of Call ?? Routine Message sent to the Nurse documented in this encounter Plan of Treatment Upcoming Encounters Date Type Department Care Team (Late st Contact Info) Description 08/06/2024 11:00 AM EST [place] [address] Sarah Serra APRN [facility] [place] [address] documented as of this encounter Visit Diagnoses Diagnosis Epilepsy seizure, generalized, convulsive- Primary Generalized convulsive epilepsy without mention of intractable epilepsy documented in this encounter Care Teams Research And Development Manager Relationship Specialty Start Date End Date Luis Manuel Blanca MD [address] [place] [address] PCP - General Family Medicine 06/24/16 documented as of this encounter
--- OUTSIDE RECORDS SUMMARY | 2024-06-28 22:02 | XMS_ITS | Encounter Summary ---
[place] [address] Care Team Providers Care Broadcasting Equipment Mechanic Name Role Phone Luis Manuel Blanca MD Primary Care Provider [phone] [phone] Reason for Visit * Reason Onset Date Comments Medication Refill 11/15/2017 Encounter Details Date Type Department Care Team (Late st Contact Info) Description 11/15/2017 [place] [address] Sarah Serra APRN [facility] [place] [address] Seizure Social History Tobacco Use Types Packs/Day [...] Encounter - Lili Otero RN - 11/15/2017 1:25 PM EDT Call placed to patient/caller. LVM. Made aware that prescription request Lamictal 150 mg brand nameonly sent to Sarah Serra APRN for approval. Advised to call for any other concerns. * Telephone Encounter - Deja Banks - 11/15/2017 10:15 AM EDT Caller: Lulu If not Pt / Relation to pt: civil design specialist Best time to reach caller: any Before 2:30pm - Informed caller that nurse will call back by the end of the day Best number to reach caller: [phone] Reason for call: Lulu called to request the name brand TRILEPTAL 150 mg script be sent to [facility], as they received the generic version and the pt cannot take it. documented in this encounter Plan of Treatment Upcoming Encounters Date Type Department Care Team (Late st Contact Info) Description 08/06/2024 11:00 AM EST [place] [address] Sarah Serra APRN [facility] [place] [place] [address] documented as of this encounter Visit Diagnoses Diagnosis Seizure Other convulsions documented in this encounter Care Teams Broadcasting Equipment Mechanic Relationship Specialty Start Date End Date Luis Manuel Blanca MD [address] [place] [address] PCP - General Family Medicine 06/24/16 documented as of this encounter
--- OUTSIDE RECORDS SUMMARY | 2024-06-28 22:02 | XMS_ITS | Encounter Summary ---
Author Organization [facility] [place] [address] Care Team Providers Care Towel Weaver Name Role Phone Luis Manuel Blanca MD Primary Care Provider [phone] [phone] Reason for Visit * Reason Onset Date Comments Medication Refill 05/08/2018 Encounter Details Date Type Department Care Team (Late st Contact Info) Description 05/08/2018 [place] [address] Russel Michael Jr., MD [facility] [place] [address] Social History Tobacco Use Types Packs/Day Years [...] AM EST Office [place] [address] Sarah Serra APRN [facility] [place] [address] documented as of this encounter Visit Diagnoses Not on filedocumented in this encounter Care Teams Towel Weaver Relationship Specialty Start Date End Date Luis Manuel Blanca MD [address] [facility] [address] [place] [address] PCP - General Family Medicine 06/24/16 documented as of this encounter
--- OUTSIDE RECORDS SUMMARY | 2024-06-28 22:02 | XMS_ITS | Encounter Summary ---
Author Organization [facility] [place] [address] Care Team Providers Care International Controller Name Role Phone Luis Manuel Blanca MD Primary Care Provider [phone] [phone] Encounter Details Date Type Department Care Team (Late st Contact Info) Description 11/18/2016 10:00 AM EDT Office [place] [address] Terri Hsu APRN [facility] 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 Karl has worked the best in terms of seizures in the past. Interval history She is having clusters about once or twice a month. This represents good control. Her home providertried the midazolam and it worked quickly to stop the seizure but then the seizures returned and she had to give lorazepam. This seemed to work longer. She often can have 2-4 large seizures in a cluster. She started the [employer]. It seems to have helped with the seizures and her mood. She recovered from her broken right leg which occurred during a seizure, however she would not weight bear and had to be transferred with a matthias lift. They started physical therapy but then realizedshe was not improving. Unfortunately, she was found to have a broken hip (right hip). She saw an orthopedist and they are determining the plan of action but for now are going to watch and wait as sheis not complaining of pain. Social History: Social History Social History ??? [...] name medically necessary. 180 tablet 5 ??? QUEtiapine (SEROQUEL) 25 mg Tablet Take 1 tablet by mouth nightly. 30 tablet 3 ??? melatonin 3 mg Tablet Take 3 [...] If still not effective please call neurologist household refrigeration mechanic. No more qosl0mm daily. 45 tablet 3 ??? rufinamide (BANZEL) [...] If still not effective please call neurologist household refrigeration mechanic. 1 kit 3 ??? furosemide (LASIX) 20 mg Tablet Take 10 mg by mouth daily. ??? loratadine (CLARITIN) 10 mg Tablet Take 10 mg by mouth daily as needed for Allergies. ??? ferrous sulfate 325 mg (65 mg iron) Tablet Take 325 mg by mouth daily. ??? midazolam, PF, (VERSED) 5 mg/mL Solution 1 mL by Nasal route daily as needed (give 1 ml via atomizer for cluster of seizures). 2 mL 3 ??? atorvastatin (LIPITOR) 40 mg tablet Take 40 mg by mouth daily. ??? esomeprazole (NEXIUM) 40 mg Capsule, Delayed Release(E.C.) Take 40 mg by mouth 2 times daily. Reported on 11/18/2016 No current facility-administered medications on file prior to visit. Allergies Allergen Reactions ??? Amoxicillin-Pot Clavulanate Rash ??? Risedronate Sodium Nausea And Vomiting Objective: Blood pressure 118/56, pulse 78, weight 68 kg (150 lb). Awake and more interactive than at her lastvisit. She was proud to show me her new watch and sun glasses. Sitting in wheelchair, uses both upper extremities, can follow some simple commands, she was anxious to take money out of my hand which is her usual behavior. VNS interrogated, parameters as found below: Output current: 2.0 milliamps Signal frequency: 20 Hertz Pulse Width:500 microseconds On time: 14 sec Off time:1.1 min Magnet current:2.25 milliamps Pulse Width: 500 microseconds Battery 08/10 full Assessment and Plan: - Epilepsy: She has had a roland course in terms of seizures and med changes. She had done so well on the combination of trileptal, depakote and lamictal however had to taper depakote due to GI issuesand bleeding. Her anemia has improved and endoscopy has improved as well. She has had some positiveeffects from Onfi in terms of seizures however her behavior had changed. She is doing much better si nce we lowered the dose of Onfi. She is no longer hallucinating nor talking excessively. She can use PRN seroquel for sleep which does help. [employer] has helped a great deal. She is currently on 3.5 ml. Will continue her current antiepileptic medications and the [employer] web. We will alsotry midazolam for the clusters. - Screen for medication toxicity: I am not checking any labs today - The patient is currently not a candidate for epilepsy surgery. - Mobility: She apparently has a broken hip. She saw an orthopedist and they are going to watch andwait. She will continue with physical therapy - Bone health: Pt is currently taking Vitamin D. Pt had a recent fracture in her leg. Should check a DEXA in the near future. - Social and psychiatric issues: Improved as above. - Caregiver counselled about medication options, benefit and side effects. - Patient will be seen again by the epilepsy team in 6 months - Caregiver verbalizes understanding and agrees with plan. 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
--- OUTSIDE RECORDS SUMMARY | 2024-06-28 22:02 | XMS_ITS | Encounter Summary ---
[place] [address] Care Team Providers Care External Grinder Tool Name Role Phone Luis Manuel Blanca MD Primary Care Provider [phone] Encounter Details Date Type Department Care Team (Late st Contact Info) Description 12/11/2017 [place] [address] Sarah Serra APRN [facility] [place] [address] Social History Tobacco Use Types Packs/Day Years [...] Telephone Encounter - Sarah Serra APRN - 12/13/2017 10:07 AM EDT Spoke with Heidi Abraham not changed, actually just removed. Sindy Verdugo will be calling to schedule appointments with Dr. Mckeon. * Telephone Encounter - Lili Otero RN - 12/11/2017 4:25 PM EDT 12/11/17 1620 Call placed to patient/caller. Per Marita (patient's caregiver), Mirena was changed last Monday (12/04/17). Not much of a change with her seizures. Patient had 6 small seizures last week and a generalized seizure yesterday. Reported that patient is doing ok. And wanted to give Mirena at least a month to see if this will help with seizures. Marita will call for update in a month or sooner if needed. marita advised to call for any increase amount of seizures. Patient advised to call for any other concerns. Patient in agreement and verbalized understanding of the plan. documented in this encounter Plan of Treatment Upcoming Encounters Date Type Department Care Team (Late st Contact Info) Description 08/06/2024 11:00 AM EST Office [place] [address] Sarah Serra APRN [facility] [address] documented as of this encounter Visit Diagnoses Not on filedocumented in this encounter Care Teams External Grinder Tool Relationship Specialty Start Date End Date Luis Manuel Blanca MD [address] [place] [address] PCP - General Family Medicine 06/24/16 documented as of this encounter
--- OUTSIDE RECORDS SUMMARY | 2024-06-28 22:02 | XMS_ITS | Encounter Summary ---
[place] [address] Care Team Providers Care Dance Professor Name Role Phone Luis Manuel Blanca MD Primary Care Provider [phone] [phone] Encounter Details Date Type Department Care Team (Late st Contact Info) Description 03/08/2017 Telephone [place] [address] Terri Hsu APRN [facility] [place] [address] Social History Tobacco Use Types Packs/Day Years [...] Telephone Encounter - Risa Carrizales RN - 03/09/2017 11:41 AM EDT Per Terri Hsu APRN 1) Is she tapering the Banzel? 2) ??If so, we can try going back up on Onfi to 20mg. Call placed to contact number and spoke with caregiver Heidi. Heidi shares that the only med that hastarik adjusted is the decrease in the hemp oil as she cannot afford it at this time. Banzel is as noted on med list 400mg tab 3 tabs three times a day. Plan: Will relay info to Terri Hsu APRN to see if there are any additional recommendations * Telephone Encounter - Risa Carrizales RN - 03/08/2017 3:04 PM EDT Per Terri Hsu APRN Marinol is not a good option as it is pure THC and that is not what helps seizures. The [employer] Web right from the [employer] in [place] is the one one we can recommend at this point until the pharmaceutical medication comes out. ??When that gets approved, I am sure insurance will be contributing. Call placed back and reviewed wit Jina - she asks what other options are available. Asked if theyquestion an adjustment in pt medications to help with seizure control noting options are paying forthe Hemp Oil which she note they are getting through [employer] or look at med adjustment butnoted that marinol is not an option. Jina will review with other caregivers and will have caregiver Heidi call back if they would like to pursue possible med adjustment. * Telephone Encounter - Risa Carrizales RN - 03/08/2017 12:50 PM EDT Reason for call: returning call to Marita pt caregiver re pt and alternate options to Hemp Oil - [phone] Marita not available spoke with caregiver Odessa Report on pt: Pt has been using Hemp Oil for seizure control. Caregivers calling to ask if marinol might be an option as the cost of the hemp oil is getting to be too much and they have decreased thedose of the hemp oil and with this decrease pt has had an increase in seizures. Cost of a 3.3 oz bottle is over $200. Currently they are giving pt 0.625ml twice a day. Pt had 3 grand mal seizures last week - none this week so far. Pt is also having a lot of eye fluttering and arm spasms. Pt is sleeping better with the melatonin and eating no issue. There are no other recent changes in pt health. Med list reviewed Outpatient Prescriptions Marked as Taking for the 03/08/17 encounter (Telephone) with Terri Hsu APRN Medication Sig Dispense Refill ??? UNABLE TO [...] If still not effective please call neurologist scout professional sports. No more [id number] daily. 45 tablet 3 ??? rufinamide (BANZEL) [...] If still not effective please call neurologist scout professional sports. 1 kit 3 ??? furosemide (LASIX) 20 [...] tablet Take 40 mg by mouth daily. Plan: Odessa informed that I will send question regarding marinol as option for pt to Terri Hsu APRN. Will call caregivers back with Terri 's input when available - caregiver agreeable to this plan. documented in this encounter Plan of Treatment Upcoming Encounters Date Type Department Care Team (Late st Contact Info) Description 08/06/2024 11:00 AM EST Office [place] [address] Sarah Serra APRN [facility] [place] [address] documented as of this encounter Visit Diagnoses Not on filedocumented in this encounter Care Teams Dance Professor Relationship Specialty Start Date End Date Luis Manuel Blanca MD [address] [place] [address] PCP - General Family Medicine 06/24/16 documented as of this encounter
--- OUTSIDE RECORDS SUMMARY | 2024-06-28 22:02 | XMS_ITS | Encounter Summary ---
Author Organization [facility] [place] [address] Care Team Providers Care Reconditioner Name Role Phone Luis Manuel Blanca MD Primary Care Provider [phone] Encounter Details Date Type Department Care Team (Late st Contact Info) Description 11/30/2017 Telephone Neurology at [facility] [place] [address] Razia Oates, RADIOLOGY DIRECTOR [facility] [place] [address] Social History Tobacco Use Types Packs/Day Years [...] encounter Miscellaneous Notes * Telephone Encounter - Razia Oates, DINO - 11/30/2017 10:22 AM EDT Desmethylclobazam level is elevated. LVM for pt to check in and see how she is doing. Per Dr. Mckee, if she is not doing well, she can come and see him tomorrow during one of his open appointments and he can evaluate whether or not a reduction in AED dosage is needed. documented in this encounter Plan of Treatment Upcoming Encounters Date Type Department Care Team (Late st Contact Info) Description 08/06/2024 11:00 AM EST [place] [address] Sarah Serra APRN [facility] [place] [address] documented as of this encounter Visit Diagnoses Not on filedocumented in this encounter Care Teams Reconditioner Relationship Specialty Start Date End Date Luis Manuel Blanca MD [address] [place] [address] [address] [facility] 1 [place] [address] PCP - General Family Medicine 06/24/16 documented as of this encounter
--- OUTSIDE RECORDS SUMMARY | 2024-06-28 22:02 | XMS_ITS | Encounter Summary ---
[place] [address] Care Team Providers Care Linux Kernel Developer Name Role Phone Luis Manuel Blanca MD Primary Care Provider [phone] [phone] Reason for Visit * Reason Onset Date Comments Other 11/27/2017 Encounter Details Date Type Department Care Team (Late st Contact Info) Description 11/27/2017 [place] [address] Sarah Serra APRN [facility] [place] [address] Other Social History Tobacco Use Types Packs/Day [...] Telephone Encounter - Lili Otero RN - 11/27/2017 10:49 AM EDT Call placed to patient's caregiver (Marita). Per Marita, patient started having her period. Patient was due for a change of her Mirena last August that helps patient with her menopausal hormones. Patient's caregiver seems to think that the increase in seizure activity might be due to this. Patient is scheduled for an appointment to women's health clinic and change her Mirena next week. Per Marita, patient has shorter and smaller seizure lasting about 3-5 seconds. Per Marita, patient is also noted to be very sleepy with the additional Trileptal 150 mg at noon time. Patient's caregiver advised to continue with current Trileptal dose till Mirena is replaced. Made aware that Sarah Serra APRN is on conference this week. Advised to call us back for update next week. Patient advised to call for any other concerns. Patient in agreement and verbalized understanding of the plan. * Telephone Encounter - Gali Emanuel - 11/27/2017 10:37 AM EDT Caller: Lulu If not Pt / Relation to pt: caregiver Best time to reach caller: anytime before 11:30 Before 2:30pm - Informed caller that nurse will call back by the end of the day Best number to reach caller: [phone] Reason for call: Patient caregiver called wanting to give an update on patient, if you do not reachDarby Lawsonie will be staying with patient for the week, okay to speak with her at [phone] Please call and advise documented in this encounter Plan of Treatment Upcoming Encounters Date Type Department Care Team (Late st Contact Info) Description 08/06/2024 11:00 AM EST [place] [address] Sarah Serra APRN [facility] [place] [address] documented as of this encounter Visit Diagnoses Not on filedocumented in this encounter Care Teams Linux Kernel Developer Relationship Specialty Start Date End Date Luis Manuel Blanca MD [address] [place], [place] [address] [address] [place] [address] PCP - General Family Medicine 06/24/16 documented as of this encounter
--- OUTSIDE RECORDS SUMMARY | 2024-06-28 22:02 | XMS_ITS | Encounter Summary ---
Author Organization [facility] [address] Care Team Providers Care Exterminator Name Role Phone Luis Manuel Blanca MD Primary Care Provider [phone] [phone] Reason for Visit * Reason Onset Date Comments Other 06/15/2017 Encounter Details Date Type Department Care Team (Late st Contact Info) Description 06/15/2017 [place] [address] Leslye Hsu APRN [facility] [place] [address] Other Social History Tobacco Use Types Packs/Day [...] Telephone Encounter - Lili Otero RN - 06/19/2017 8:45 AM EST Call placed to Lulu (caregiver). Per caregiver, they will try to see what options they have in order for patient to continue taking medical marijuana. Caregiver verbalized that patient was responding well to it. No other concerns at this time. Patient/ caregiver advised to call for any other concerns. * Telephone Encounter - Lili Otero RN - 06/16/2017 4:38 PM EST 06/16/2017 1615 Call placed to Lulu (caregiver). LVM. * Telephone Encounter - Lili Otero RN - 06/15/2017 1:50 PM EST Call placed to patient. Per caregiver (Lulu), they are not able to administer the medical marijuana because they are being paid by federal money. Caregiver is now requesting to switch patient to Marinol. Plan: Report forwarded to Leslye Hsu APRN for review and comment. Pt/caller aware they will be called back with input when available and to call back in the interim if additional questions or change arise before they hear back from this office. Pt/caller agreeable to this plan. * Telephone Encounter - Nicole Castellano - 06/15/2017 12:28 PM EST Caller: Lulu If not Pt / Relation to pt: caregiver Best time to reach caller: anytime Before 2:30pm - Informed caller that nurse will call back by the end of the day Best number to reach caller: [phone] Reason for call: Lulu called regarding Cinthya's medical marijuana. She states that she needs to discuss this with leslye. Please call and advise. documented in this encounter Plan of Treatment Upcoming Encounters Date Type Department Care Team (Late st Contact Info) Description 08/06/2024 11:00 AM EST [place] [address] Sarah Serra APRN [facility] [place] [address] documented as of this encounter Visit Diagnoses Not on filedocumented in this encounter Care Teams Exterminator Relationship Specialty Start Date End Date Luis Manuel Blanca MD [address] [place] [address] PCP - General Family Medicine 06/24/16 documented as of this encounter
--- OUTSIDE RECORDS SUMMARY | 2024-06-28 22:02 | XMS_ITS | Encounter Summary ---
[place] [address] Care Team Providers Care Bottom Stainer Name Role Phone Luis Manuel Blanca MD Primary Care Provider [phone] Reason for Visit * Reason Onset Date Comments Medication Refill 03/20/2017 Encounter Details Date Type Department Care Team (Late st Contact Info) Description 03/20/2017 [place] [id number] Terri Hsu APRN [facility] [place] [address] Epilepsy seizure, generalized, convulsive Social History Tobacco [...] Encounter - Mita Win RN - 03/20/2017 12:46 PM EDT Ativan prescription faxed to [facility] 03/20/17 at 12:33 pm to fax number [phone]. documented in this encounter Plan of Treatment Upcoming Encounters Date Type Department Care Team (Late st Contact Info) Description 08/06/2024 11:00 AM EST Office [place] [address] Sarah Serra APRN [facility] [place] [address] documented as of this encounter Visit Diagnoses Diagnosis Epilepsy seizure, generalized, convulsive Generalized convulsive epilepsy without mention of intractable epilepsy documented in this encounter Care Teams Bottom Stainer Relationship Specialty Start Date End Date Luis Manuel Blanca MD [address] [place] [address] PCP - General Family Medicine 06/24/16 documented as of this encounter
--- OUTSIDE RECORDS SUMMARY | 2024-06-28 22:02 | XMS_ITS | Encounter Summary ---
[place] [address] Care Team Providers Care Material Control Manager Name Role Phone Luis Manuel Blanca MD Primary Care Provider [phone] Encounter Details Date Type Department Care Team (Late st Contact Info) Description 05/15/2018 1:00 PM EDT Office [place] [address] Sarah Serra APRN [facility] [place] [address] Seizure; Epilepsy seizure, generalized, convulsive Social History Tobacco [...] Sign Reading Time Taken Comments Blood Pressure 113/64 05/15/2018 12:59 PM EDT Pulse 79 05/15/2018 12:59 PM EDT Temperature - - Respiratory Rate - - Oxygen Saturation - - Inhaled Oxygen Concentration - - Weight 68 kg (150 lb) 05/15/2018 12:59 PM EDT re yadira, w/c Height 147.3 cm (4' 10) 05/15/2018 12:59 PM EDT reported Body Mass Index 31.35 05/15/2018 12:59 PM EDT documented in this encounter Patient Instructions * Patient Instructions* Sarah Serra APRN - 05/15/2018 1:00 PM EDT You seem to have a flurry of seizures every fall. Increase trileptal to 600mg TID for 2 weeks then reduce back to 600/450/600. If you feel this system works well you may increase midday dose to 600mg during times of seizure exacerbations as you see fit, and then back down to 450 when things settle down, if seizures continue despite this you will need to call us because that means there is something bigger going on. Please call with any questions. It was great seeing you today. Please make sure you are taking 800-1000 units of vitamin D daily. Clinic hours: Urgent matters after hours/weekends: and ask for the neurologist configuration management specialist. For emergencies call 911. We will see you back in 6 months. documented in this encounter Progress Notes * Sarah Serra APRN - 05/15/2018 1:00 PM EDT Subjective: [facility] OUTPATIENT FOLLOW UP NOTE Patient [...] Were seizures disabling? No Cinthya is doing better since last time we saw her in clinic when we increased her midday Trileptal. Additional testing for the source of the increased seizures was unrevealing. Patient over the past couple of weeks she has been having seizures, is not unusual for this time of year. Caregiver states that she is not sure whether or not it was all on her oen since they usually make med adjustments when this happens. Wonders if they should increase the Trileptal further to 600 mg 3 times a day. Previously at this dose may be felt toxic on the medication. Otherwise things are going very well, she is feeling happy and back to her normal self. Social History: Social History Social History ??? Marital status: Single Spouse name: N/A ??? Number of children: N/A ??? Years of education: N/A Occupational History ??? Not on file. Social History Main Topics ??? Smoking status: Never Smoker ??? Smokeless tobacco: Never Used ??? Alcohol use No ??? Drug use: Yes Special: Marijuana Comment: Hemp Oil and Marijuana Oil ??? Sexual activity: Not on file Comment: deferred Other Topics Concern ??? Not on file Social History Narrative Social Factors: QEPILEPSY SOCIAL FACTORS 05/15/18 Employment status: No Currently driving: No Considering [...] 150mg tab) and 600 mg in PM. BRAND NAME ONLY. 150 tablet 5 ??? TRILEPTAL 150 mg Tablet Take at noontime (in addition to 300mg tab). BRAND NAME only. 30 tablet5 ??? acetaminophen (TYLENOL) 500 mg Tablet Take 500 mg by mouth 2 times daily. ??? cholecalciferol, Vitamin D3, (VITAMIN D) 1,000 unit Capsule Take 1 capsule by mouth 2 times daily. 60 capsule 5 ??? cloBAZam (ONFI) 10 mg Tablet Take 2 tablets by mouth nightly. 60 tablet 5 ??? QUEtiapine (SEROQUEL) 50 mg Tablet Take 25 mg by mouth nightly. ??? LORazepam (ATIVAN) 1 mg Tablet Take 1-2 tablets at onset of seizure symptoms, if ineffective after 30 minutes may repeat dose. If still not effective please call neurologist configuration management specialist. No more uynb5ap daily. 45 tablet 3 ??? melatonin 3 mg Tablet Take 6 mg by mouth nightly. ??? sertraline (ZOLOFT) 100 mg Tablet Take 1 tablet by mouth daily. 90 tablet 0 ??? rufinamide (BANZEL) 400 mg Tablet Take 3 tablets by mouth 3 times daily. Reduce by 1 tablet perweek starting 03/25/16 270 tablet 5 ??? PHENobarbital (LUMINAL) 60 mg Tablet Take 2 tablets by mouth nightly. 360 tablet 1 ??? diaZEPam (DIASTAT ACUDIAL) 12.5-15-17.5-[address] 15 mg rectally as needed (1 syringe forcluster of seizures.). if ineffective after 30 minutes may repeat dose. If still not effective please call neurologist configuration management specialist. 1 kit 3 ??? furosemide (LASIX) 20 [...] Physical Exam: Vitals: Temp: -- Heart Rate: [79] Resp: -- BP: (113)/(64) SpO2: -- Heart Rate from SPO2: -- Awake, alert, of apparent age, well dressed and groomed, she has mild pallor and looks to have lostsome weight since last I saw her in clinic (as well as in same day surgery but that is more difficult to ship surveyor at pt was in bed with hospital [...] 500 microseconds Assessment and Plan: - Epilepsy: Overall she is doing much better on increased Trileptal, tends to have increased seizures around change of season. Will write prescription so that caregiver has option of giving an additional 150 mg midday PRN if needed. Hopefully this will help us gain better control of many seizures overall, but avoid having her feel toxic on a higher dose of baseline medication all of the time. Please see detailed dosing instructions below. - Screen for medication toxicity: Recent labs acceptable - The patient is currently not a [...] Cinthya in clinic today. Sarah Serra APRN [facility] Department of Neurology Patient Instructions You seem to have a flurry of seizures every fall. Increase trileptal to 600mg TID for 2 weeks then reduce back to 600/450/600. If you feel this system works well you may increase midday dose to 600mg during times of seizure exacerbations as you see fit, and then back down to 450 when things settle down, if seizures continue despite this you will need to call us because that means there is something bigger going on. Please call with any questions. It was great seeing you today. Please make sure you are taking 800-1000 units of vitamin D daily. Clinic hours: Urgent matters after hours/weekends: and ask for the neurologist configuration management specialist. For emergencies call 911. We will see you back in 6 months. 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
--- OUTSIDE RECORDS SUMMARY | 2024-06-28 22:02 | XMS_ITS | Encounter Summary ---
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 Social History Tobacco Use Types [...] Sign Reading Time Taken Comments Blood Pressure 110/61 03/23/2018 10:58 AM EDT Pulse 79 03/23/2018 10:58 AM EDT Temperature - - Respiratory Rate - - Oxygen Saturation - - Inhaled Oxygen Concentration - - Weight 68 kg (150 lb) 03/23/2018 10:58 AM EDT reported - wheelchair Height 147.3 cm (4' 10) 03/23/2018 10: 58 AM EDT reported Body Mass Index 31.35 03/23/2018 10:58 AM EDT documented in this encounter Patient Instructions * Patient Instructions* Russel Michael Jr., MD - 03/23/2018 11:00 AM EDT Continue Trileptal 600mg/450mg/600mg Onfi 20mg (10mg x 2) at bedtime Banzel 1200mg three times/day Phenobarbital 120mg (60mg x 2) at bedtime Lorazepam 1-2mg after seizures, up to 4mg total Start lorazepam 0.5-1mg (1/2 to 1 tab) 30 minutes before know seizure triggers Please call with any problems or questions. documented in this encounter Progress Notes * Russel Michael Jr., MD - 03/23/2018 11:00 AM EDT [facility] Department of Neurology Comprehensive Epilepsy Program Initial Consultation Rolanda Brown 57 y.o. [id number] 03/27/18 CC-I have been asked by Sarah Serra APRN to see Rolanda Brown for seizures HPI Rolanda is here for epilepsy evaluation with her long-term evp operations. She is well- know to this epilepsy center, having been a patient here for many years. I have reviewed her past records in our EMR. The immediate issue is a recent increase in seizures; for the past several months she has been experiencing what are described as generalized seizures, mostly tonic 6-7 times a week whereas before theywere about once a week. This was in a setting of possible URI and GI problems. There was also some concern that her Mirena IUD, which when first placed was very helpful, needed to be exchanged. The URI symptoms resolved (CXR was OK), as did the GI problems with no clear change in seizures. In slight change in her Trileptal dosing from 600/300/600 to 600/450/600 was made. Rather than exchanging the IUD, it was simply removed (December 2017). After this point her seizure pattern returned to baseline. She has had life long seizures, and has been diagnosed with LGS. Seizures occur in 3 semiologies; Jerking/twitching of the arms and face with tongue biting (lasts 1 minute), eye flutter with oral automatisms, and focal motor seizures involving one arm. A consistent triggers for seizures seems to beexcitement (going to the dentist is a particular tyler for Rolanda. The county fair is another trigger). Prior testing has included MRI of the head (2001, normal by report), EEG (slowed background, generalized spike-wave/polyspike discharges, independent bilateral spike wave discharges). She currently is prescribed Zonegran 200mg QHS,Trileptal 600mg/450mg/600, Phenobarb 120mg qhs. She also has a VNS (placed in 2003, new battery in Sep 2017). She also take cannabis (CBD-based) which seems to be veryhelpful. Past AEDs include Phenobarbital, Depakote (neither were effective), Lamictal (caused hair loss). [facility] Past Medical History: Diagnosis Date ??? Hyperlipidemia ??? MR (mental retardation) ??? RIA (obstructive sleep apnea) ??? Seizures MEDS ??? acetaminophen (TYLENOL) 500 mg Tablet ??? OXcarbazepine (TRILEPTAL) 150 mg Tablet ??? OXcarbazepine (TRILEPTAL) 300 mg Tablet ??? cholecalciferol, Vitamin D3, (VITAMIN D) 1,000 unit Capsule ??? cloBAZam (ONFI) 10 mg Tablet ??? QUEtiapine (SEROQUEL) 50 mg Tablet ??? LORazepam (ATIVAN) 1 mg Tablet ??? melatonin 3 mg Tablet ??? sertraline (ZOLOFT) 100 mg Tablet ??? rufinamide (BANZEL) 400 mg Tablet ??? PHENobarbital (LUMINAL) 60 mg Tablet ??? diaZEPam (DIASTAT ACUDIAL) 12.5-15-17.5-20 mg Kit ??? furosemide (LASIX) 20 mg Tablet ??? loratadine (CLARITIN) 10 mg Tablet ??? esomeprazole (NEXIUM) 40 mg Capsule, Delayed Release(E.C.) ??? ferrous sulfate 325 mg (65 mg iron) Tablet ??? midazolam, PF, (VERSED) 5 mg/mL Solution ??? atorvastatin (LIPITOR) 40 mg tablet SH Social History Social History ??? Marital status: [...] ??? Not on file Social History Narrative FH Family History Problem Relation Age of Onset ??? Cancer Neg Hx ALL Allergies Allergen Reactions ??? Amoxicillin-Pot Clavulanate Rash ??? Risedronate Sodium Nausea And Vomiting ROS ROS positive per HPI. ROS negative for: -Fevers, unexplained weight changes -Vomiting, diarrhea, constipation -Dysuria, hematuria -Joint pain -Skin rashes -Depression, anxiety -Easy bleeding or bruising -Headaches, numbness Physical Exam: BP 110/61 (BP Location (NBP): Right arm, Patient Position: Sitting, BP Cuff Sizes: Adult (25-34 cm)) Pulse 79 Ht 147.3 cm (4' 10) Comment: reported Wt 68 kg (150 lb) Comment: reported - wheelchair BMI 31.35 kg/m2 General: Nondiaphoretic, no acute distress. In wheelchair Head/Neck: Normocephalic. Oropharynx clear. CV: Normal rate with regular rhythm Extremities: Rt foot in AFO Neuro: Mental Status: Alert and oriented to person, follows directions. Pleasant and interactive. Moderatepsychomotor slowing HEENT/CN: PERRL, EOMI Face symmetric, eyelids closed equally Hearing grossly intact Symmetric palate, midline tongue, moderate-marked dysarthria. Motor: Normal bulk. No tremor or abnormal movements. Reflex: Biceps and KJ 2+/4. Sensation: Grossly intact to light touch Coordination: Modified FNF smooth Labs/Imaging Results for ROLANDA BROWN ( ) as of 03/27/2018 07:34 Ref. Range 11/22/2017 00:00 Oxcarbazep Met (MHC) Latest Ref Range: 3 - 35 26 Rufinamide Level Latest Ref Range: 5 - 30 40.8 (A) Clobazam Latest Ref Range: 30 - 300 129 Desmethylclobazam Latest Ref Range: 300 - 3000 5926 (A) Assessment/Plan Rolanda Brown is a 57yo with epilepsy, diagnosed as LGS, here for evaluation because of recent increase in seizures. This was occurring in a setting of possible URI and GI problems, as well as Mirena probably expiring. A modest increase in Trileptal dosing was made in November, and Mirena was removed in December; since then her seizures have returned to baseline although the exact reason for the increase (as well as the improvement is not clear). Her evp operations and I agreed that for the moment we should keep things as they are. In the office today I witnessed several episodes of head dropping which to my eye looked like atonic seizures, although her evp operations identifies these as behavioral. She also had one brief tonic seizure, with some mild post-ictal effects. Her evp operations identified this sort of event as the most frequent, and the ones that had increased recently. Given her history and EEG finding, the LGS diagnosisseems appropriate. We spent some time discussing cannabis, which seems to have been very helpful but does pose some financial and legal challenges/considerations at this time. I informed her that Epidiolex (cannabidiol) is expected to be available by prescription this -I have no way at the moment to predict thecost (but expect it to be substantial) but it might be covered by her insurance. I think she would be an excellent candidate for this, fitting well with the indications. Her evp operations also asked about giving Lorazepam before situations known to provoke her seizures. I think that 0.5-1.0mg given 30 minutes ahead of time may be beneficial, and likely of little consequence in terms of sedation. So in summary, her seizures seems to have returned to their baseline so we decided to hold the course for now. I think we should look into Epidiolex when it becomes available. I will have her follow up with Sarah Serra APRN in a few months. 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
--- OUTSIDE RECORDS SUMMARY | 2024-06-28 22:02 | XMS_ITS | Encounter Summary ---
Author Organization [place] [address] Care Team Providers Care Karate Instructor Name Role Phone Luis Manuel Blanca MD Primary Care Provider [phone] Reason for Visit * Reason Onset Date Comments Other 08/31/2018 Encounter Details Date Type Department Care Team (Late st Contact Info) Description 08/31/2018 [place] [address] Shashi Mckee MD [facility] [place] [address] Social History Tobacco Use Types Packs/Day Years [...] Telephone Encounter - Lili Otero RN - 08/31/2018 11:05 AM EST Call placed to patient/caller. Spoke to Fior. Discussed patient's prn medications for seizure.Discussed that Ativan can be given first, if patient is able to swallow safely. If not, give the Midazolam nasal spray. Also requested for Midazolam refill. Patient/caller advised to call for any other concerns. Patient/caller in agreement and verbalized understanding of the plan. * Telephone Encounter - Lucy Stratton - 08/31/2018 9:45 AM EST Clinical [place] Message Caller: Fior If not Pt / Relation to pt: Nurse at [facility] Call back Number: [phone] ext [phone] Best time to reach caller: anytime Reason for call: Clarification on Seizure Protocol and Hospital Transport Message/information for the nurse: She would like to know when to use the Diazepam and The Midazolam exactly. Disposition of Call ?? Routine Message sent to the Nurse documented in this encounter Plan of Treatment Upcoming Encounters Date Type Department Care Team (Late st Contact Info) Description 08/06/2024 11:00 AM EST Office [place] [address] Sarah Serra APRN [facility] [place] [place] [address] documented as of this encounter Visit Diagnoses Not on filedocumented in this encounter Care Teams Karate Instructor Relationship Specialty Start Date End Date Luis Manuel Blanca MD [address] [facility] [place] [address] PCP - General Family Medicine 06/24/16 documented as of this encounter
--- OUTSIDE RECORDS SUMMARY | 2024-06-28 22:02 | XMS_ITS | Encounter Summary ---
Author Organization [facility] [place] [address] Care Team Providers Care Analysis Or Research Safety Inspector Name Role Phone Luis Manuel Blanca MD Primary Care Provider [phone] Encounter Details Date Type Department Care Team (Late st Contact Info) Description 03/29/2017 10:30 AM EDT [place] [address] Terri Hsu APRN [facility] 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; High risk medication use; Hypovitaminosis D; Epilepsy seizure, generalized, convulsive Social History Tobacco [...] Sign Reading Time Taken Comments Blood Pressure 119/60 03/29/2017 10:23 AM EDT Pulse 76 03/29/2017 10:23 AM EDT Temperature - - Respiratory Rate - - Oxygen Saturation - - Inhaled Oxygen Concentration - - Weight 68 kg (150 lb) 03/29/2017 10:23 AM EDT re ported, w/c Height - - Body Mass Index 31.35 08/19/2016 12:54 PM EST documented in this encounter Patient Instructions * Patient Instructions* Terri Hsu APRN - 03/29/2017 10:30 AM EDT Apply for a bladimir through [employer] (National organization of Rare Disorders) Or [employer] Apply for medical marijuana card (Fransisco Emery is the director of the [facility]) Increase Onfi to 20mg nightly. If this does not work, will talk to the GI doctor about resuming Depakote. documented in this encounter Progress Notes * Terri Hsu APRN - 03/29/2017 10:30 AM EDT Subjective: [facility] OUTPATIENT FOLLOW UP NOTE Patient Active Problem List Diagnosis ??? CAP (community acquired pneumonia) ??? Epilepsy with status epilepticus ??? Seizure ??? Status epilepticus ??? Sleep apnea ??? Mental retardation I saw Cinthyadee Brown today for a scheduled follow-up evaluation. [...] IMPRESSION: Normal. CT: SPECT: S/P: VNS in 2004 Risk factors for epilepsy: Developmental Delay. No [...] past. Interval history She continues to have seizures. She is having clusters of head drops about every other day and alsohaving larger seizures. She is having clusters about two-four times a month. She started the [employer] and it was really helping with the seizures and her mood. However, her home provider was having to pay out of pocket for it and it was costing over $500 per month getting it from the [employer] website. She had had to taper to half the previous dose and now the seizures have become more frequent and more intense. Her behavior and mood has also declined somewhat. She is not as interested to participate in activities as she was. Her home provider tried the midazolam and it worked quickly to stop the seizure but then the seizures returned and she had to give lorazepam. This seems to work longer. She is getting the lorazepam almost every other day since tapering the [employer]. Social History: Social History Social History ??? [...] to Visit Medication Sig Dispense Refill ??? QUEtiapine (SEROQUEL) 50 mg Tablet Take 50 mg by mouth nightly. ??? LORazepam (ATIVAN) 1 mg Tablet Take 1-2 tablets at onset of seizure symptoms, if ineffective after 30 minutes may repeat dose. If still not effective please call neurologist engineering manager electronics. No more [id number] daily. 45 tablet 3 ??? UNABLE TO FIND Med Name: Hemp Oil ??? OXcarbazepine (TRILEPTAL) 300 mg Tablet Take 2 tablets by mouth 3 times daily. Brand name medically necessary. 180 tablet 5 ??? melatonin 3 mg Tablet Take 6 [...] If still not effective please call neurologist engineering manager electronics. 1 kit 3 ??? furosemide (LASIX) 20 [...] Sodium Nausea And Vomiting Objective: Blood pressure 119/60, pulse 76, weight 68 kg (150 lb). Awake and [...] from Onfi in terms of seizures however at higher doses, her behavior had changed. Will try to go back to 20mg QHS. If this has not helped, will consider retrying depakote. eduPad has helped a great deal but unfortunately, they cannot afford it. I have given themsome recommendations to apply for a bladimir through [employer] and [employer]. I have also signed paperwork for them to get the [place] medical marijuana card as she may be able to get a cheaperstrain through the local dispensary. - Screen for medication toxicity: I am checking CBC, CMP, vitamin D and AED levels today - The patient is currently not [...] again by the epilepsy team in 3 months - Caregiver verbalizes understanding and agrees with plan. documented in this encounter Plan of Treatment Upcoming Encounters Date Type Department Care Team (Late st Contact Info) Description 08/06/2024 11:00 AM EST [place] [address] Sarah Serra APRN [facility] [place] [address] documented as of this encounter Procedures Procedure Name Priority Date/Time Associated Diagnosis Comments RUFINAMIDE LEVEL Routine 03/29/2017 12:0 0 PM EDT Intractable [place]-Gastaut syndrome without status epilepticus HEMOGRAM Routine 03/29/2017 12:00 PM EDT High risk medication use VITAMIN D, 25-HYDROXY Routine 03/29/2017 12:00 PM EDT Hypovitaminosis D OXCARBAZEPINE METABOLITE (MHC) Routine 03/29/2017 12:00 PM EDT 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 PHENOBARBITAL LEVEL Routine 03/29/2017 1 2:00 PM EDT 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 ??The National Kidney Foundation has similarly stated that patients with Vitamin D concentrations <30ng/mL should be considered to be insufficient or deficient. http://tinyurl.Flaskon/nkf-guidelines http://Teleus.Flaskon/nejm-VitD The IDS iSYS Vitamin D Immunoassay detects both 25-OH Vitamin D2 and 25-OH Vitamin D3, but only a total Vitamin D concentration is reported. Blood specimen (specimen) 03/29/2017 12:00 PM EDT 03/29/2017 2:54 PM EDT Narrative Resulting Agency Comment Spec In Lab Terri Hsu APRN CHEMISTRY ORDERABLES Performing Organization Address [facility]/ZIP Co de Phone Number [facility] [place] [address] * (ABNORMAL) Oxcarbazepine Metabolite (MHC) (03/29/2017 12:00 PM EDT) Oxcarbazep Met (Mhc) (DECEMBER) 46(H) 3 - 35 mcg/mL [facility] Comment: ADDITIONAL INFORMATION This test was developed and its performance characteristics determined by [facility] in a manner consistent with CLIA requirements. This test has not been cleared or approved by the U.S. Food and Drug Administration. Test Performed by: [facility] [address] [address] Blood specimen (specimen) 03/29/2017 12:00 PM EDT 03/29/2017 1:36 PM EDT Narrative Resulting Agency Comment Spec In Lab Terri Hsu APRN LAB SEND OUT ORDERAB LES Performing Organization Address City/[facility]/ZIP Co de Phone Number [facility] [place] [address] * Rufinamide Level (03/29/2017 12:00 PM EDT) Rufinamide Level (DECEMBER) 22.4 5.0 - 30.0 mcg/mL [facility] Comment: ADDITIONAL INFORMATION This test was developed and its performance characteristics determined by [facility] in a manner consistent with CLIA requirements. This test has not been cleared or approved by the U.S. Food and Drug Administration. Test Performed by: [facility] - [address] [address] Blood specimen (specimen) 03/29/2017 12:00 PM EDT 03/29/2017 1:36 PM EDT Narrative Resulting Agency Comment Spec In Lab Terri Hsu APRN LAB SEND OUT ORDERAB LES Performing Organization Address [facility] Co de Phone Number [facility] [place] [address] * (ABNORMAL) Phenobarbital level (03/29/2017 12:00 PM EDT) Phenobarbital 41.8(H) 15.0 - 40.0 mg/L [facility] Comment: Therapeutic Range: ??15-40 mg/L Toxic: ??> 50 mg/L Blood specimen (specimen) 03/29/2017 12:00 PM EDT 03/29/2017 12:04 PM EDT Narrative Resulting Agency Comment Spec In Lab Terri Hsu APRN CHEMISTRY ORDERABLES Performing Organization Address [facility] Co de Phone Number [facility] [place] [address] * (ABNORMAL) Comprehensive metabolic panel (non-fasting) (03/29/2017 12:00 PM EDT) Glucose 103 65 - 199 mg/dL [facility] Comment:Diabetes: >=200 mg/d L plus symptoms Blood Urea Nitrogen 14 8 - 18 mg/dL [facility] Creatinine 0.53(L) 0.70 - 1.20 mg/dL [facility] Comment: Please note that the pediatric reference intervals supplied above were not validated at [facility]. Results from pediatric patients should be interpreted in conjunction to the patient's age, height and muscle mass. Sodium 139 135 - 145 mmol/L [facility] Potassium 3.8 3.5 - 5.0 mmol/L [facility] Comment: Please note: ??Patients with WBC >100,000 may have falsely elevated Potassium levels. ??For accurate Potassium quantification in these patients send serum separator tube (gold top) for subsequent determinations. ??Contact the Clinical Chemistry Laboratory if there are any questions. Chloride 96(L) 98 - 107 mmol/L [facility] Carbon Dioxide 27 22 - 31 mmol/L [facility] Anion Gap 16(H) 5 - 15 mmol/L [facility] Calcium 9.5 8.5 - 10.5 mg/dL [facility] Protein, Total 8.0 6.1 - 8.0 gm/dL [facility] Albumin 4.4 3.2 - 5.2 gm/dL [facility] Aspartate Aminotransferase 15 0 - 30 unit/L [facility] Alanine Aminotransferase 18 0 - 30 unit/L [facility] Alkaline Phosphatase 144(H) 40 - 104 unit/L [facility] Bilirubin, Total 0.2 0.2 - 1.3 mg/dL [facility] Est Glomerular Filtration Rate >60 >=60 [facility] Comment: This estimated GFR (eGFR) value was calculated using the MDRD equation which has been validated on patients between the ages of 18 and 70. The MDRD should not be used to assess kidney function in patients < 18 years of age or in patients with extremes of body mass, or in patients with acute kidney failure. This value should be multiplied by 1.2 for patients. For further information please copy and paste the following links into your internet browser. http://Teleus.Flaskon/DHnkdep http://Media Radar/DHMCnkf Blood specimen (specimen) 03/29/2017 12:00 PM EDT 03/29/2017 12:04 PM EDT Narrative Resulting Agency Comment Spec In Lab Terri Hsu CABLE WEAVER CHEMISTRY ORDERABLES [facility] [place] [address] * Hemogram (03/29/2017 12:00 PM EDT) White Blood Cell 6.9 4.0 - 9.5 x10(3)/[facility] Red Blood Cell 4.87 4.00 - 5.21 x10(6)/[facility] Hemoglobin 14.0 11.7 - 15.5 gm/dL [facility] Hematocrit 42.7 35.7 - 45.8 % [facility] Mean Cell Volume 87.7 82.6 - 94.4 fL [facility] Mean Cell Hemoglobin 28.7 27.1 - 32.0 pg [facility] Mean Cell Hemoglobin Concentration 32.8 31.7 - 35.0 gm/dL [facility] Platelet 173 145 - 357 x10(3)/[facility]ATORY RDW Standard Deviation 42.6 37.0 - 46.0 fL [facility] RDW coefficient of variation 13.2 11.5 - 14.1 % [facility] Mean Platelet Volume 10.0 7.6 - 12.9 fL [facility] NRBC% auto 0.0 % [facility] NRBC Absolute 0.000 0.000 - 0.000 x10(3)/[facility] Blood specimen (specimen) 03/29/2017 12:00 PM EDT 03/29/2017 12:04 PM EDT Narrative Resulting Agency Comment Spec In Lab Terri Wallace Shadi TREJON HEMATOLOGY ORDERABLE S [facility] [place] [address] documented in this encounter Visit Diagnoses Diagnosis Intractable Milwaukee-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
--- OUTSIDE RECORDS SUMMARY | 2024-06-28 22:02 | XMS_ITS | Encounter Summary ---
[place] [address] Care Team Providers Care Ride Operator Name Role Phone Luis Manuel Blanca MD Primary Care Provider [phone] Encounter Details Date Type Department Care Team (Late st Contact Info) Description 03/22/2018 [place] [address] Sarah Serra APRN [facility] [place] [address] Social History Tobacco Use Types Packs/Day Years [...] Telephone Encounter - Lili Otero RN - 03/22/2018 11:02 AM EDT Call placed to patient/caller. Spoke to Fior BELTRE ([employer]). Discussed when and how to use VNS magnet. Also discussed use of Midazolam IN spray and Distat. Patient/ caregiver resource website given. Patient advised to call for any other concerns. Patient in agreement and verbalized understanding of the plan. * Telephone Encounter - Lucy Stratton - 03/22/2018 10:21 AM EDT Caller: Kathy If not Pt / Relation to pt: Nurse calling from [facility] Best time to reach caller: anytime Before 2:30pm - Informed caller that nurse will call back by the end of the day Best number to reach caller: [phone] ext [phone] Reason for call: Fior would like to have orders sent to her regarding the magnet use of the VNS device. She needs the orders to document and verify care. Can fax to [phone] attn Fior documented in this encounter Plan of Treatment Upcoming Encounters Date Type Department Care Team (Late st Contact Info) Description 08/06/2024 11:00 AM EST [place] [address] Sarah Serra APRN [facility] [place] [address] documented as of this encounter Visit Diagnoses Not on filedocumented in this encounter Care Teams Ride Operator Relationship Specialty Start Date End Date Luis Manuel Blanca MD [address] [facility] [address] [place] [address] PCP - General Family Medicine 06/24/16 documented as of this encounter
--- OUTSIDE RECORDS SUMMARY | 2024-06-28 22:03 | XMS_ITS | Encounter Summary ---
[facility] [place] [address] Care Team Providers Care Centrifuge Separator Tender Name Role Phone Cee Escobar MD Primary Care Provider [phone] Reason for Visit * Reason Onset Date Comments Other 02/09/2016 Encounter Details Date Type Department Care Team (Late st Contact Info) Description 02/09/2016 Telephone [place] [phone] Terri Hsu APRN [facility] [place] [place] [address] Other Social History Tobacco Use Types Packs/Day [...] Telephone Encounter - Mita Win RN - 02/09/2016 3:36 PM EDT Terri Hsu APRN reviewed and okay to increase onfi to 20 mg daily. New rx generated for provider review and signature. I attempted to phone Lulu on her cell phone. There was no answer and unable to leave message asvoice mail is full. I phoned home number and spoke with Lulu's spouse Magdiel. Instructed him thatokay to increase onfi to 20 mg daily. I explained that we will send new rx for pharmacy for 20 mg tablets so pt will only need to take one tablet daily. Plan: as above and Magdiel agrees with plan and verbalizes understanding. New rx generated for provider review and signature. * Telephone Encounter - Mita Win RN - 02/09/2016 11:27 AM EDT Last visit 11/11/15 Next visit 02/17/16 Caregiver Lulu phoned and left message on triage line stating that Terri recently increased Cinthya's onfi from 10 mg to 15 mg daily ( see 01/18/16 telephone note). Lulu states that she needs a new prescription for this increase but before we write the prescription she is asking if the onfi can be increased again. She states that since the increase to 15 mg pt is doing much better but statesthat she is still having a cluster of seizures(3) about once a week (although she is not needing ativan in between). Plan: I will forward to Terri Hsu APRN for review and recommendation. documented in this encounter Plan of Treatment Upcoming Encounters Date Type Department Care Team (Late st Contact Info) Description 08/06/2024 11:00 AM EST Office [place] [address] Sarah Serra APRN [facility] [place] [address] documented as of this encounter Visit Diagnoses Not on filedocumented in this encounter Care Teams Centrifuge Separator Tender Relationship Specialty Start Date End Date Cee Escobar MD [address] [place] [address] PCP - General 06/29/10 06/23/16 documented as of this encounter
--- OUTSIDE RECORDS SUMMARY | 2024-06-28 22:03 | XMS_ITS | Encounter Summary ---
[place] [address] Care Team Providers Care Forest Worker Name Role Phone Luis Manuel Blanca MD Primary Care Provider [phone] Reason for Visit * Reason Onset Date Comments Medication Refill 07/06/2016 Encounter Details Date Type Department Care Team (Late st Contact Info) Description 07/06/2016 [place] [phone] Treri Hsu [facility] [place] [address] Social History Tobacco Use Types Packs/Day Years [...] 11:00 AM EST Office [place] [phone] Sarah Serra [facility] [place] [address] documented as of this encounter Visit Diagnoses Not on filedocumented in this encounter Care Teams Forest Worker Relationship Specialty Start Date End Date Luis Manuel Blanca MD [address] [facility] [address] [place] [address] PCP - General Family Medicine 06/24/16 documented as of this encounter
--- OUTSIDE RECORDS SUMMARY | 2024-06-28 22:03 | XMS_ITS | Encounter Summary ---
Author Organization [facility] [place] [address] Care Team Providers Care Agri Business Agent Name Role Phone Cee Escobar MD Primary Care Provider [phone] Reason for Visit * Reason Onset Date Comments Other 04/19/2016 Encounter Details Date Type Department Care Team (Late st Contact Info) Description 04/19/2016 [place] [phone] Terri Hsu APRN [facility] [place] [address] Other Social History Tobacco Use Types Packs/Day [...] Telephone Encounter - Mita Win RN - 04/20/2016 4:42 PM EDT Terri Hsu APRN reviewed. She would like to increase the onfi before reducing the banzel further.Pt curently on onfi 30 mg nightly so per Terri should increase to 40 mg nightly. I phoned caregiver Lulu and instructed on above. New rx generated for provider review and signature. Lulu agrees with plan and verbalizes understanding. * Telephone Encounter - Mita Win RN - 04/19/2016 5:04 PM EDT . * Telephone Encounter - Mita Win RN - 04/19/2016 11:09 AM EDT Last visit 03/11/16 Next visit not yet scheduled Patient's caregiver Lulu called and left message on triage line. States that last visit Terri talked with her about decreasing pt's banzel dose by 400 mg or one pill a week. Caregiver states it took longer to start this decrease because pt was ill. She states she is down to banzel 800 mg bid and banzel 1200 mg qd ( down by 2 pills). Caregiver states that she doesn't see any improvement in pt's tiredness or repetitiveness and she is starting to do the eye fluttering and hand shaking again. She is not sure if pt should go back up on the banzel or onfi. She isn't sure. She also wonders if she needs a mood stabilizer since she is not on the depakote anymore. She wonders if PCP should be theprovider managing the mood. Current Outpatient Prescriptions on File Prior to Visit Medication Sig Dispense Refill ??? clobazam 20 mg Tablet Take 1.5 tablets by mouth nightly 45 tablet 3 ??? LORazepam (ATIVAN) 1 mg Tablet Take 1-2 tablets at onset of seizure symptoms, if ineffective after 30 minutes may repeat dose. If still not effective please call neurologist ophthalmic surgeon. No more [id number] daily. 45 tablet 3 ??? rufinamide (BANZEL) 400 mg Tablet Take 3 tablets by mouth 3 times daily. Reduce by 1 tablet perweek starting 03/25/16 (Patient taking differently: Reduce by 1 tablet per week starting 03/25/16. Ptcurrently taking 800 mg BID and 1200 mg once a day) 270 tablet 5 ??? PHENobarbital (LUMINAL) 60 mg Tablet Take 2 tablets by mouth nightly. 360 tablet 1 ??? OXcarbazepine (TRILEPTAL) 300 mg Tablet Take by mouth. Take 2 tablets every am, 1 tablet every afternoon, and 2 tablets every evening. Brand name medically necessary. ??? diaZEPam (DIASTAT ACUDIAL) 12.5-15-17.5-[address] 15 mg rectally as needed (1 syringe forcluster of seizures.). if ineffective after 30 minutes may repeat dose. If still not effective please call neurologist ophthalmic surgeon. 1 kit 3 ??? furosemide (LASIX) 20 mg Tablet Take 20-40 mg by mouth daily. ??? loratadine (CLARITIN) 10 mg Tablet Take 10 mg by mouth daily as needed for Allergies. ??? esomeprazole (NEXIUM) 40 mg Capsule, Delayed Release(E.C.) Take 40 mg by mouth 2 times daily. ??? ferrous sulfate 325 mg (65 mg iron) Tablet Take 325 mg by mouth daily. ??? midazolam, PF, (VERSED) 5 mg/mL Solution 1 mL by Nasal route daily as needed (give 1 ml via atomizer for cluster of seizures). 2 mL 3 ??? atorvastatin (LIPITOR) 40 mg tablet Take 40 mg by mouth daily. No current facility-administered medications on file prior to visit. Plan: I will forward to Terri Hsu APRN for further review and recommendation. documented in this encounter Plan of Treatment Upcoming Encounters Date Type Department Care Team (Late st Contact Info) Description 08/06/2024 11:00 AM EST [place] [address] Sarah Serra APRN [facility] [place] [address] documented as of this encounter Visit Diagnoses Not on filedocumented in this encounter Care Teams Agri Business Agent Relationship Specialty Start Date End Date Cee Escobar MD [address] [place] [address] PCP - General 06/29/10 06/23/16 documented as of this encounter
--- OUTSIDE RECORDS SUMMARY | 2024-06-28 22:03 | XMS_ITS | Encounter Summary ---
Author Organization [facility] [place] [address] Care Team Providers Care Yeast Supervisor Name Role Phone Luis Manuel Blanca MD Primary Care Provider [phone] Reason for Visit * Auth/Cert Specialty Diagnoses / Procedures Referred By Koby soto Referred To Contact Diagnoses Seizure SZ Referral ID Status Reason Start Date Expiration Date Visits Re quested Visits Authorized [id number] 1 1 Encounter Details Date Type Department Care Team (Latest Contact Info) Description 07/09/2016 2:02 PM EST - 07/13/2016 1:[address] 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 Discharge Disposition: Home with VNA Social History Tobacco Use Types Packs/Day Years [...] Sign Reading Time Taken Comments Blood Pressure 114/61 07/13/2016 5:23 AM EST Pulse 92 07/13/2016 5:23 AM EST Temperature 36.5 ??C (97.7 ??F) 07/13/2016 5:23 AM ES T Respiratory Rate 22 07/13/2016 5:23 AM EST Oxygen Saturation 96% 07/13/2016 5:23 AM EST Inhaled Oxygen Concentration - - Weight 68.6 kg (151 lb 3.8 oz) 07/10/2016 5:00 A M EST Height 139.7 cm (4' 7) 07/09/2016 2:35 PM EST Body Mass Index 35.15 07/09/2016 2:35 PM EST documented in this encounter Discharge Summaries * Anna Marie Gomez MD - 07/13/2016 10:13 AM EST Discharge Summary Patient Name: Cinthya Brown Patient Age: 55 y.o. Language: Liberian Race: White Ethnicity: Not nor Admit date: 07/09/2016 Discharge date and time: 07/13/16 Attending Physician: Anna Marie Gomez MD Discharge Physician: MD Patricia Follow-up Recommendations for Providers: 1. Follow for improvement of bronchitis/Pneumonia after completion of levaquin Inpatient Provider Contact Information: For questions regarding this document or issues relating to this hospitalization on the Medical Service, please contact your inpatient physician through the [facility] . Issues afterhours and on weekends will be handled by the Hospitalist staff on-call. Discharge Diagnoses (Hospital Problems) and Secondary Diagnoses (Chronic Problems): Active Hospital Problems Diagnosis ??? Epilepsy with status epilepticus ??? CAP (community acquired pneumonia) ??? Seizure Resolved Hospital Problems Diagnosis Date Resolved No resolved problems to display. Active Non-Hospital Problems Diagnosis ??? Status epilepticus ??? Sleep apnea ??? Mental retardation Operations/Major Procedures: Operations: Other Major Procedures: History of Presentation: Cinthya Brown is a 55 y.o. 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 for status epilepticus requiring intubation for airway protection. Today, the patient has reportedly experienced an increase in the frequency of her baseline seizures. She has been on multiple different antiepileptic medications in the past and has been admitted to the neurology service here in the past for cEEG monitoring during medication titrations. Recently, her Onfi was reduced from 40mg to 15mg between 06/14 and 06/24. She remains on Phenobarbital, Trileptal and Banzel. ?? Her caregiver reports some URI symptoms this week with associated fevers (since Monday) and an increase in her baseline seizures somewhat since then, however, today she had 6-7 seizures prior to EMSbeing summoned. She received multiple doses of rectal diazepam and oral lorazepam without initial relief from her seizures. ?? The EMS provider who transferred her here today was the same provider that responded to her home earlier in the day. She reports that when they arrived Cinthya was unresponsive on BiPAP. En route to the hospital she had one more witnessed GTC seizure and upon arrival to the OSH ED she was intubated for airway protection. ?? Hospital Course: Hospital/ICU course : ?? Status Epilepticus: last reported seizure was in the ambulance while en route to [facility]. Neurologyconsulted on arrival here and recommended no adjustment to her current OP medication regimin. Suspect recent URI lowered her seizure threshold and they will f/u as an outpatient. ?? Respiratory Failure ?? Strep pneumoniae, H. influenaze bronchitis: in the setting of likely over- sedation with multipledoses of home benzos while seizing, she was intubated. She had a sputum culture that grew Strep Pneumoniae and H. influenzae and started on IV ceftriaxone. CXR without evidence for pneumonia Influenza panel and viral DFA (-). She was successfully extubated and was stating well on room air by time of discharge. She had milt temp the day before discahrge but no further fevers. She had no leukocytosis. Blood cx NGTD. Diarrhea- patient had several loose stools. C. Diff was ordered but patient never had any further diarrhea. It was likely antibiotic related. RIA- she was continued on nightly biPAP Vital Signs at Discharge: BP: 114/61, Heart Rate: 92, Temp: 36.5 ??C (97.7 ??F), Resp: 22, BMI (Calculated): 34.8 Height: (!) 139.7 cm (4' 7) (07/09/16 1435) Weight - Scale: 68.6 kg (151 lb 3.8 oz) (07/10/16 0500) Functional and Cognitive Status: Baseline MR-->back to caregiver care Important Studies and Lab Data: Labs: Recent Labs 07/13/16 0650 07/12/16 0615 07/11/16 0835 WBC 7.0 5.4 6.7 HGB 12.4 11.8 10.6* HCT 37.7 35.8 32.3* PLATELET 228 209 165 Recent Labs 07/13/16 0650 07/12/16 0615 07/11/16 0835 NA 137 135 140 K 3.9 3.9 3.6 CL 94* 96* 101 CO2 26 26 25 BUN 10 8 8 CREATININE 0.52* 0.48* 0.43* Recent Labs 07/10/16 0400 07/09/16 1520 AST 34* 63* ALT 35* 40* ALKPHOS 153* 159* BILITOT 0.3 0.6 BILIDIR 0.1 0.4* Recent Labs 07/13/16 0650 07/12/16 0615 07/11/16 0835 07/10/16 0400 07/09/16 1520 CALCIUM 8.7 8.7 8.0* 7.9* 7.8* PHOS -- -- -- 3.0 1.4* Recent Labs 07/09/16 1557 PT 14.2 INR 1.1 No results for input(s): CK, TROPONINT in the last 168 hours. Studies: Blood cx NGTD Viral DFA negative Resp cx: Strep pneumo, many H.influenzaea ?? Studies/Imaging: CXR 07/09: 1. Prominent RIGHT perihilar lung markings may represent either fluid overload or crowding of vasculature.. 2. First sidehole of NG tube above the diaphragm. Discharge Conditions/Prognosis: Stable for discharge home Discharge to: Home with caregiver Updated Allergies/ADRs: Allergies Allergen Reactions ??? Amoxicillin-Pot Clavulanate Rash ??? Risedronate Sodium Nausea And Vomiting Immunizations Given this Hospitalization: Immunization History Administered Date(s) Administered ??? Influenza PF, Split 06/22/2015 Discharge Medications: Your Medications New Medications Dose Details levoFLOXacin 500 mg Tab Commonly known as: LEVAQUIN Take 1 tablet by mouth daily. Start taking on: 07/14/2016 500 mg Quantity: 3 tablet Refills: 0 Continued medications with new dosing Dose Details rufinamide 400 mg Tab Commonly known as: BANZEL Take 3 tablets by mouth 3 times daily. Reduce by 1 tablet per week starting 03/25/16 What changed: - how much to take - how to take this - when to take this - additional instructions 1200 mg Quantity: 270 tablet Refills: 5 sertraline 100 mg Tab Commonly known as: ZOLOFT Take 1 tablet by mouth daily. What changed: how much to take 100 mg Quantity: 90 tablet Refills: 0 Continued medications, unchanged Dose Details atorvastatin 40 mg Tab Commonly known as: LIPITOR Take 40 mg by mouth daily. 40 mg Refills: 0 cloBAZam 10 mg Tab Commonly known as: ONFI Take 1.5 tablets by mouth nightly. 15 mg Quantity: 45 tablet Refills: 5 diaZEPam 12.5-15-17.5-20 mg Kit Commonly known as: DIASTAT ACUDIAL Place 15 mg rectally as needed (1 syringe for cluster of seizures.). if ineffective after 30 minutes may repeat dose. If still not effective please call neurologist theater projectionist. 15 mg Quantity: 1 kit Refills: 3 esomeprazole 40 mg Cpdr Commonly known as: NexIUM Take 40 mg by mouth 2 times daily. 40 mg Refills: 0 ferrous sulfate 325 mg (65 mg iron) Tab Take 325 mg by mouth daily. 325 mg Refills: 0 furosemide 20 mg Tab Commonly known as: LASIX Take 20-40 mg by mouth daily. 20-40 mg Refills: 0 loratadine 10 mg Tab Commonly known as: CLARITIN Take 10 mg by mouth daily as needed for Allergies. 10 mg Refills: 0 LORazepam 1 mg Tab Commonly known as: ATIVAN Take 1-2 tablets at onset of seizure symptoms, if ineffective after 30 minutes may repeat dose. If still not effective please call neurologist theater projectionist. No more than 4mg daily. Quantity: 45 tablet Refills: 3 melatonin 3 mg Tab Take 3 mg by mouth nightly. 3 mg Refills: 0 midazolam (PF) 5 mg/mL Soln Commonly known as: VERSED 1 mL by Nasal route daily as needed (give 1 ml via atomizer for cluster of seizures). 5 mg Quantity: 2 mL Refills: 3 OXcarbazepine 300 mg Tab Commonly known as: TRILEPTAL Take 2 tablets by mouth 3 times daily. Brand name medically necessary. 600 mg Quantity: 180 tablet Refills: 5 PHENobarbital 60 mg Tab Commonly known as: LUMINAL Take 2 tablets by mouth nightly. 120 mg Quantity: 360 tablet Refills: 1 QUEtiapine 25 mg Tab Commonly known as: SEROquel Take 1 tablet by mouth nightly. 25 mg Quantity: 30 tablet Refills: 3 Smoking Status at Discharge: History Smoking Status ??? Never Smoker Smokeless Tobacco ??? Never Used Instructions Given to Patient at Discharge: Patient Instructions Instruction after leaving the hospital Why you were hospitalized: seizures, upper respiratory tract infection Call your doctor or seek medical attention if you develop the following: seizures, high fevers Activity level: as tolerated Diet: regular Specific instructions related to your condition: 1. You will complete levaquin for pneumonia for 3 more days Follow-Up Appointments Date and Time Provider and Specialty Location Monday07/15/16 @ 10:40 AM Luis Manuel Blanca MD [phone] Your Inpatient Doctor(s) at [facility]: Patricia General Instructions None Future Appointments and Orders Future Appointments Provider Department Dept Phone 08/19/2016 1:00 PM Terri Hsu APRN Neurology [phone] Future Orders Complete By Expires Referral to Home Health - at DISCHARGE [[id number] CPT(R)] As directed Process Instructions: Scheduling Instructions: Comments: DOCUMENTATION FOR VNA SERVICES (INCLUDING THOSE PATIENTS WITH MEDICARE COVERAGE REQUIRING HOME VNA SERVICES AND/OR HOSPICE SERVICES) PATIENT'S LOCATION: Cinthya Brown C/o Destin Arellano [address] [facility] [id number] (home) Cell: No relevant phone numbers on file. Director Of Revenue Cycle Management's Name: Kailey Arellano In discussion with the attending physician, it is certified that this patient is under their care and that they, or a Nurse Practitioner,Clinical Nurse specialist or Physician Electric Train Driver who is working directly with them, had a face to face encounter that meets the physician face to face encounter requirements with this patient on 07/11/2016 The encounter with the patient was in whole, or in part, for the following medical condition, whichis the primary reason for home health care services: with seizure requiring intubation and ICU admission In discussion with the provider, it is certified that, based on their findings, the following services are medically necessary for home health services. To provide the following care/treatments with the clinical findings supporting the need for services as follows: HOME CARE ORDERS: RN ORDERS:Assess neuro status, vital signs, cardiopulmonary status, nutrition, hydration, elimination, meds effectiveness and management; reinforce education re health issues PT ORDERS: Continue rehab for endurance, gait stability and strength with mobility and transfers. Home safety evaluation. Home exercise program if appropriate. HOME HEALTH CARE AGENCY: [facility] PHONE: [phone] FAX: [phone] Start of care: Within 24 hours of admission FOR MEDICARE ONLY: (please delete this section if not Medicare) In discussion with the attending physician, it is certified that the clinical findings support thatthis patient is homebound because absences from home require considerable and taxing effort due to:patient with developmental delay and requiring wheel chair with assist of another person to leave home . Please note that any additional orders needs or changes will need to be obtained from this patient's PCP: Luis Manuel Blanca MD [address] / [place] [address] All A agencies which cover the area of patient's residence have been reviewed, either verbally jeff writing, and patient/family have chosen the home health care agency noted Questions: Agency name and contact information: [facility] Patient location post discharge: home What services are requested: Registered Nurse Physical Therapy Start date: 07/11/2016 Responsible MD post discharge contact info: PCP Discharge References/Attachments None documented in this encounter Discharge Instructions * Patient Instructions* Anna Marie Gomez MD - 07/13/2016 10:14 AM EST Instruction after leaving the hospital Why you were hospitalized: seizures, upper respiratory tract infection Call your doctor or seek medical attention if you develop the following: seizures, high fevers Activity level: as tolerated Diet: regular Specific instructions related to your condition: 1. You will complete levaquin for pneumonia for 3 more days Follow-Up Appointments Date and Time Provider and Specialty Location Monday07/15/16 @ 10:40 AM Luis Manuel Blanca MD [phone] Your Inpatient Doctor(s) at [facility]: Patricia documented in this encounter Medications at Time of Discharge Medication Sig Dispensed Refills Start Date End Date loratadine (CLARITIN) 10 mg Tablet Take 10 mg by mouth daily as needed for Allergies. esomeprazole (NEXIUM) 40 mg Capsule, Delayed Release(E.C.) Take 40 mg by mouth daily. Reported on 11/18/2016 ferrous sulfate 325 mg (65 mg iron) Tablet Take 325 mg by mouth daily. atorvastatin (LIPITOR) 40 mg tablet Take 40 mg by mouth daily. OXcarbazepine (TRILEPTAL) 300 mg Tablet Take 2 tablets by mouth 3 times daily. Brand name medically necessary. 180 tablet 5 07/06/2016 04/04/2017 QUEtiapine (SEROQUEL) 25 mg Tablet Take 1 tablet by mouth nightly. 30 tablet 3 07/06/2016 03/20/2017 melatonin 3 mg Tablet Take 6 mg by mouth nightly. 11/30/2023 cloBAZam (ONFI) 10 mg Tablet Take 1.5 tablets by mouth nightly. 45 tablet 5 06/24/2016 03/29/2017 sertraline (ZOLOFT) 100 mg Tablet Take 1 tablet by mouth daily. 90 tablet 05/25/2016 11/20/2018 LORazepam (ATIVAN) 1 mg TabletIndications:Epi lepsy seizure, generalized, convulsive Take 1-2 tablets at onset of seizure symptoms, if ineffective after 30 minutes may repeat dose. If still not effective please call neurologist theater projectionist. No more than 4mg daily. 45 tablet 3 03/11/2016 03/20/2017 rufinamide (BANZEL) 400 mg TabletIndications:Int ractable Guillaume-Gastaut [...] If still not effective please call neurologist theater projectionist. 1 kit 3 01/06/2016 11/20/2018 furosemide (LASIX) 20 mg Tablet Take 20 mg by mouth daily. 07/19/2022 midazolam, PF, (VERSED) 5 mg/mL Solution 1 mL by Nasal route daily as needed (give 1 ml via atomizer for cluster of seizures). 2 mL 3 08/27/2014 08/31/2018 documented as of this encounter Progress Notes * Lisa Metcalf RN - 07/13/2016 1:14 PM EST Patient Name: Cinthya Brown Patient Age: 55 y.o. Birthdate: 1960 Admit date: 07/09/2016 Attending Physician: Anna Marie Gomez MD Pt discharged home with VNA, report called. AVS reviewed with pt and caregiver, all questions answered. PIV removed per protocol. All belongings accounted for. Pt left in the care of caregiver. * Shahriar Yan RN - 07/13/2016 10:34 AM EST Patient Name: Cinthya Brown Patient Age: 55 y.o. Birthdate: 1960 Admit date: 07/09/2016 Attending Physician: Anna Marie Gomez MD Office of Care Management (OCM)-Sous Chef Kitchen Manager discharge planning Sous Chef Kitchen Manager, Shahriar Yan RN-BSN Service: [phone] Reviewed medical record and in rounds with,Charge/Resource RN, EMILIANO, and CM, PT and Hospitalist. Cinthya Brown is ready for discharge to home with continued home health services through [facility] Met with the patient who is comfortable with the plan. DPOA/POA/surrogate notified in person of the plan; present at bedside. Transportation provided by private [employer] van. An Important Message From Medicare about Your Rights letter reviewed with caregiver and caregiver signed acknowledgment and was provided copy. MD notified of plan. Charge Nurse updated. Resource Specialists updated. Sous Chef Kitchen Manager: CANDICE Fernando pager ([phone]) * Anna Marie Gomez MD - 07/13/2016 10:27 AM EST Hospital Medicine - Attending Day of Discharge Documentation Discharge diagnosis Active Hospital Problems Diagnosis ??? Epilepsy with status epilepticus ??? CAP (community acquired pneumonia) ??? Seizure Resolved Hospital Problems Diagnosis Date Resolved No resolved problems to display. Secondary Issues Active Non-Hospital Problems Diagnosis ??? Status epilepticus ??? Sleep apnea ??? Mental retardation I have personally seen and examined the patient and they are ready for discharge. No fevers overnight. Caregiver feels patient is close/back to her baseline and wishes to take her home today. I thinkthis is a safe plan. I spent >35minutes involved in the final examination of the patient, discussion of the hospital stay, instructions for continuing care to all relevant caregivers, and preparation of discharge records, prescriptions and referral forms. Plans ? Discharge to home w/ cregiver ? Follow-up scheduled with PCP on Monday ? Levaquin x 3 days to complete course for CAP/bronchitis Please see the Discharge Summary for complete details of any medication changes and additional plans. * Fifi Baez RT - 07/13/2016 5:50 AM EST 07/13/16 0355 Non Invasive Ventilation Data NIV Mode BiPAP NIV Settings IPAP (cmH20) 20.7 EPAP (cmH20) 15.7 NIV Measurements Resp 25 Vte 358 NIV Interface NIV Interface Face Mask Patient wore BIPAP overnight with no issues. WIll continue to monitor * Anna Marie Gomez MD - 07/12/2016 10:40 AM EST Hospital Medicine Attending Daily Progress Note Admit Date: 07/09/2016 PCP: Luis Manuel Blanca MD Active Hospital Problems Diagnosis ??? Epilepsy with status epilepticus ??? CAP (community acquired pneumonia) ??? Seizure Resolved Hospital Problems Diagnosis Date Resolved No resolved problems to display. ROS: unable to be obtained 2/2 patient's baseline developmental delay. Per caregiver and medical chart, mild fever last night to 100.4; no increased sob. No obvious cills or nausea Medications: ??? [START ON 07/13/2016] cefTRIAXone 1 g Intravenous Q24H ??? atorvastatin 40 mg Oral Daily ??? cloBAZam 15 mg Oral Nightly ??? melatonin 3 mg Oral Nightly ??? OXcarbazepine 600 mg Oral TID ??? PHENobarbital 121.5 mg Oral Nightly ??? QUEtiapine 25 mg Oral Nightly ??? sertraline 50 mg Oral Daily ??? sodium chloride 0.9 % 5 mL Intravenous Q12H ??? pantoprazole 40 mg Oral Daily Or ??? pantoprazole 40 mg Intravenous Daily ??? heparin (porcine) 5,000 Units Subcutaneous 2 times per day ??? rufinamide 800 mg Oral BID ??? rufinamide 1,200 mg Oral Nightly ??? guaiFENesin 200 mg Oral Q6H albuterol, ipratropium, sodium chloride 0.9 %, lidocaine, LORazepam, acetaminophen Objective: Last value Range last 24 hrs Temperature Temp: 36.7 ??C (98.1 ??F) Temp: [36.5 ??C (97.7 ??F)-38.1 ??C (100.6 ??F)] Heart Rate Heart Rate: 95 Heart Rate: [89-95] Blood Pressure BP: 111/58 BP: (109-146)/(49-64) Respiratory Rate Resp: 24 Resp: [20-36] SpO2 SpO2: 96 % SpO2: [91 %-97 %] Patient Vitals for the past 168 hrs: Weight 07/10/16 0500 68.6 kg (151 lb 3.8 oz) 07/09/16 1435 67.8 kg (149 lb 7.6 oz) I/O last 3 completed shifts: In: 1192 [P.O.:410; I.V.:782] Out: 875 [Urine:875] General: sleeping; loud snores, NAD HEENT: MMM Neck: Supple CV: RRR, S1, S2. No mumur Lungs: Coarse breath sounds bilaterally with adequate air entry Abd: S/NT/ND. NABS Ext: Trace LE edema Skin: Warm, well-perfused; LABS: Reviewed in eDH. Remarkable for the following: Recent Labs 07/12/16 0607/11/16 0835 07/10/16 0400 WBC 5.4 6.7 8.6 HGB 11.8 10.6* 11.9 HCT 35.8 32.3* 35.3* PLATELET 209 165 195 Recent Labs 07/09/16 1557 INR 1.1 Recent Labs 07/12/16 0615 07/11/16 0835 07/10/16 1345 07/10/16 0400 NA 135 140 -- 137 K 3.9 3.6 3.9 3.5 CL 96* 101 -- 98 CO2 26 25 -- 25 BUN 8 8 -- 5* CREATININE 0.48* 0.43* -- 0.46* Recent Labs 07/10/16 0400 07/09/16 1520 AST 34* 63* ALT 35* 40* ALKPHOS 153* 159* BILITOT 0.3 0.6 BILIDIR 0.1 0.4* Recent Labs 07/12/16 0615 07/11/16 0835 07/10/16 0400 07/09/16 1520 CALCIUM 8.7 8.0* 7.9* 7.8* MAGNESIUM -- -- 0.88 0.65* PHOS -- -- 3.0 1.4* No results for input(s): CK, TROPONINT in the last 168 hours. No results for input(s): TSH in the last 7068 hours. No results for input(s): HA1C in the last 7068 hours. Micro: Blood cx NGTD Viral DFA negative Resp cx: many strep pneumo, many H.influ Studies/Imaging: CXR 07/09: 1. Prominent RIGHT perihilar lung markings may represent either fluid overload or crowding of vasculature.. 2. First sidehole of NG tube above the diaphragm. Assessment: 55yo F with developmental delay, epilepsy, and RIA on nightly BiPAP, admitted to ICU in transfer from [facility] for status epilepticus in setting of LRT symptoms and fevers for past week. Seen by Neurology and felt likely seizure threshold lowered in setting of active infection; now stable on home AED regimen with no further e/o seizure activity. With regards to S.pneumo and H flu pneumonia, remains on CTX w/ tentative plan to complete 7-day course of therapy. New diarrhea, so important to r/o >cdiff Plan: #Transfer to Hospital Medicine #Status epilepticus -Appreciate Neurology c/s -Cont home AED regimen including Onfi, trileptal, phenobarbital, rufinamide -Maintain seizure precautions #URTI, likely CAP- H.influenzae and strep pneumoniae on sputum cx -Cont CTX to complete 7 day course - can change to PO on discharge -Monitor for fever # Diarrhea, likely Abx-associated -at least 4-5 stool in past 12 hrs -check stool c. Diff, contact precautions -lactobacillus daily #RIA -Cont nightly BiPAP #DVT prophylaxis: SQH #GI prophylaxis: PPI per home regimen #Dispo: home with caregivers when medically ready- likely in 24h ANNA MARIE GOMEZ MD 07/12/2016 * Aziza Deluca, RT - 07/12/2016 4:48 AM EST Placed patient on Vset with small full face mask, RA PS 5 cmH20 Max 25 cmH20, Min 4cmH20 RR~20-35 SpO2 ~95% * Piero Rodríguez - 07/11/2016 2:47 PM EST Nutrition Services - Initial Note Cinthya Brown : 1960 AGE: 55 y.o. Patient Active Problem List Diagnosis Date Noted ??? Hospital-Seizure 07/09/2016 ??? Epilepsy 10/27/2010 ??? Sleep apnea 10/27/2010 ??? Mental retardation 10/27/2010 Reason for Nutrition Intervention: Patient Eating in ICU Diet Order: Dysphagia soft Appetite: Good- per family Food allergies: NKFA Chewing/Swallowing difficulty: none on current diet per family Ht Readings from Last 3 Encounters: 07/09/16 (!) 139.7 cm (4' 7) 06/24/16 (!) 147.3 cm (4' 10) 05/09/16 (!) 142.2 cm (4' 8) Wt Readings from Last 3 Encounters: 07/10/16 68.6 kg (151 lb 3.8 oz) 06/24/16 68 kg (150 lb) 05/09/16 72.6 kg (160 lb) Body mass index is 35.15 kg/(m^2). Assessment: Patient's family reported a good appetite without difficulty chewing or swallowing on current diet order. She is tolerating current diet without nausea or vomiting. Added afternoon snack.Patient's family had no further questions at this time. Encouraged to contact Food and Nutrition services with any questions that may arise. Nutrition Plan: Continue current diet. Recommend Daily Multi Vitamins. Added snack. Added extra gravy. Monitor weight. Encourage good po intake. Support and encouragement provided. Nutrition services to follow weekly thru hospital course unless consulted in the interim. JONN Powell * Trae Ramirez Jr., MD - 07/11/2016 12:01 PM EST Critical Care Attending Daily Progress Note Author TRAE RAMIREZ JR, MD Date 07/11/2016 I saw and examined this patient in the critical care unit. Active Problems 1. Intubated for airway protection, resolved 2. Status epilepticus, no uncontrolled seizure activity 3. History of epilepsy, developmental delay Subjective Denies pain. Tracks activity in room Physical Exam General Ill-appearing woman spontaneously breathing RA (BiPAP overnight) no respiratory distress Lungs CTA(B) Heart RR no M Abdomen Soft, non-distended, non-tender. BS(+) Neuro Awake, tracks motion in the room. Moves all extremities Respiratory Support BiPAP + 1L overnight; RA on day Assessment, Management, and Decision Making 1. Continue home dose of anti-epileptic medications. 2. Continue ceftriaxone for strep pneumoniae pneumonia 3. Passed speech and swallow assessment with functional swallow. Advance diet as tolerated 4. Routine ICU prophylaxis 5. Anticipate transfer out of ICU today for ongoing management of pneumonia 6. Full code; family updated Is this patient critically ill? Is there a high potential of sudden, clinically significant, or life threatening deterioration? No Is there a need for direct personal assessment and management to treat/prevent multiple vital organfailure/deterioration? No IPI Certification I certify that I am a D-H credentialed attending provider with admitting privileges and that the patient meets or has met medical necessity to require an inpatient IPI level of care meeting a minimumof two midnights or is on the [facility] inpatient only procedure list (status C) due to: delivery of critical care services as outlined in assessment and plan above --Halina Ramirez MD * Lulu Cummings MD - 07/11/2016 11:32 AM EST Hospital Medicine Attending Daily Progress Note Admit Date: 07/09/2016 PCP: Luis Manuel Blanca MD Active Hospital Problems Diagnosis ??? Seizure Resolved Hospital Problems Diagnosis Date Resolved No resolved problems to display. Transfer Summary: 55yo F with developmental delay, epilepsy, and RIA on nightly BiPAP, admitted to ICU in transfer from [facility] for status epilepticus in setting of respiratory infection w/ cough and fevers for past week. Multiple doses of diazepam and lorazepam administered at home without initial relief. On arrival of EMS, unresponsive and intubated on arrival to ED for airway protection. No further seizure activity noted since presentation and subsequently transferred to [facility] for further mgmt. With regards to respiratory symptoms, viral DFA neg; sputum cx w/ strep and H.influ for which started on course of CTX. Extubated yesterday AM to RA though d/t some stridor given racemic epi and 1 day of dexamethasone. Seen by Neurology and felt likely seizure threshold lowered by active infection. Home AED regimen continued. Medications: ??? cefTRIAXone 1 g Intravenous Q24H ??? atorvastatin 40 mg Oral Daily ??? cloBAZam 15 mg Oral Nightly ??? melatonin 3 mg Oral Nightly ??? OXcarbazepine 600 mg Oral TID ??? PHENobarbital 121.5 mg Oral Nightly ??? QUEtiapine 25 mg Oral Nightly ??? sertraline 50 mg Oral Daily ??? insulin lispro 1-4 Units Subcutaneous Q4H DAVID ??? sodium chloride 0.9 % 5 mL Intravenous Q12H ??? pantoprazole 40 mg Oral Daily Or ??? pantoprazole 40 mg Intravenous Daily ??? heparin (porcine) 5,000 Units Subcutaneous 2 times per day ??? rufinamide 800 mg Oral BID ??? rufinamide 1,200 mg Oral Nightly ??? guaiFENesin 200 mg Oral Q6H albuterol, ipratropium, racepinephrine, dextrose 50% OR glucagon (human recombinant), sodium chloride 0.9 %, lidocaine, sodium chloride 0.9%, LORazepam, acetaminophen, potassium chloride Objective: Last value Range last 24 hrs Temperature Temp: 37 ??C (98.6 ??F) Temp: [36.4 ??C (97.5 ??F)-38.4 ??C (101.1 ??F)] Heart Rate Heart Rate: 91 Heart Rate: [86-101] Blood Pressure BP: 114/57 BP: (91-146)/(48-86) Respiratory Rate Resp: 23 Resp: [22-35] SpO2 SpO2: 95 % SpO2: [93 %-99 %] Patient Vitals for the past 168 hrs: Weight 07/10/16 0500 68.6 kg (151 lb 3.8 oz) 07/09/16 1435 67.8 kg (149 lb 7.6 oz) I/O last 3 completed shifts: In: 2411 [P.O.:200; I.V.:1911; IV Piggyback:300] Out: 3925 [Urine:3925] I/O this shift: In: 52 [I.V.:52] Out: - General: AA; NAD; non-toxic in appearance HEENT: MMM Neck: Supple CV: RRR, S1, S2. No M/R/G. Lungs: Coarse breath sounds bilaterally with adequate air entry Abd: S/NT/ND. NABS. Ext: Trace edema Skin: Warm, well-perfused. No rashes. LABS: Reviewed in eDH. Remarkable for the following: Recent Labs 07/11/16 0835 07/10/16 0400 07/09/16 1545 WBC 6.7 8.6 10.0* HGB 10.6* 11.9 12.3 HCT 32.3* 35.3* 36.6 PLATELET 165 195 173 Recent Labs 07/09/16 1557 INR 1.1 Recent Labs 07/11/16 0835 07/10/16 1345 07/10/16 0400 07/09/16 1545 07/09/16 1520 NA 140 -- 137 138 137 K 3.6 3.9 3.5 3.9 3.9 CL 101 -- 98 98 100 CO2 25 -- 25 27 24 BUN 8 -- 5* -- 9 CREATININE 0.43* -- 0.46* -- 0.49* Recent Labs 07/10/16 0400 07/09/16 1520 AST 34* 63* ALT 35* 40* ALKPHOS 153* 159* BILITOT 0.3 0.6 BILIDIR 0.1 0.4* Recent Labs 07/11/16 0835 07/10/16 0400 07/09/16 1520 CALCIUM 8.0* 7.9* 7.8* MAGNESIUM -- 0.88 0.65* PHOS -- 3.0 1.4* No results for input(s): CK, TROPONINT in the last 168 hours. No results for input(s): TSH in the last 7068 hours. No results for input(s): HA1C in the last 7068 hours. Micro: Blood cx NGTD Viral DFA negative Resp cx: many strep pneumo, many H.influ Studies/Imaging: CXR 07/09: 1. Prominent RIGHT perihilar lung markings may represent either fluid overload or crowding of vasculature.. 2. First sidehole of NG tube above the diaphragm. Assessment: 55yo F with developmental delay, epilepsy, and RIA on nightly BiPAP, admitted to ICU in transfer from [facility] for status epilepticus in setting of LRT symptoms and fevers for past week. Seen by Neurology and felt likely seizure threshold lowered in setting of active infection; now stable on home AED regimen with no further e/o seizure activity. With regards to S.pneumo pneumonia remains on CTX w/ tentative plan to complete 5-day course of therapy. Plan: #Transfer to Hospital Medicine #Status epilepticus -Appreciate Neurology c/s -Cont home AED regimen including Onfi, trileptal, phenobarbital, rufinamide -Maintain seizure precautions #URTI- H.influ + strep on sputum cx -Cont CTX to complete 5-day course #RIA -Cont nightly BiPAP #DVT prophylaxis: SQH #GI prophylaxis: PPI per home regimen #Dispo: home with caregivers when medically ready IPI Certification I certify that I am a D-H credentialed attending provider with admitting privileges and that the patient meets or has met medical necessity to require an inpatient IPI level of care meeting a minimumof two midnights or is on the [facility] inpatient only procedure list (status C) due to: Status epilepticus necessitating close respiratory and neurologic monitoring Team Pager [phone] to cover tonight until 12/6 AM; thereafter see Care Team for team pager assignment LULU CUMMINGS MD 07/11/2016 * Trae Foster RCP - 07/11/2016 5:59 AM EST NIV Note NIV Settings: NIV Mode: BiPAP IPAP (cmH20): 12 EPAP (cmH20): 8 Pressure Support (cm H2O): 2 FiO2 (%): 25 % NIV Interface: Face Mask NIV Measurements: Resp: 24 Mve: 9 Leak (L/min): 4 L/min Vte: 384 SpO2: 94 % Skin Assessment: WDL mepilex on bridge of nose Assessment: Pt wore her BIPAP with the help of her teletypist near by. Pt's BS very coarse. SpO2 stayed in the high 90's this evening. Plan: Continue to follow * Trae Ramirez Jr., MD - 07/10/2016 8:51 PM EST Critical Care Attending Daily Progress Note Author TRAE RAMIREZ JR, MD Date 07/10/2016 I saw and examined this patient in the critical care unit. Active Problems 1. Intubated for airway protection 2. Status epilepticus 3. History of epilepsy, developmental delay Physical Exam General Critically ill, sedated, endotracheally intubated mechanically ventilated Lungs CTA(B) Heart RR Abdomen Soft, non-distended, BS(+) Neuro RASS -3 Respiratory Support SIMV -> PSV Assessment, Management, and Decision Making 1. Continue anti-epileptic medications. 2. Trial of extubation 3. Speech and swallow eval -> enteral nutritional support 4. Routine ICU prophylaxis 5. Full code; family updated Is this patient critically ill? Is there a high potential of sudden, clinically significant, or life threatening deterioration? Yes Is there a need for direct personal assessment and management to treat/prevent multiple vital organfailure/deterioration? Yes Patient is critically ill with these diagnoses being managed by the Critical Care Team: Intubated for airway protection secondary to status epilepticus Other status epilepticus IPI Certification I certify that I am a D-H credentialed attending provider with admitting privileges and that the patient meets or has met medical necessity to require an inpatient IPI level of care meeting a minimumof two midnights or is on the [facility] inpatient only procedure list (status C) due to: delivery of critical care services as outlined in assessment and plan above I personally performed 30 minutes of aggregate critical care time exclusive of procedures and teaching. This includes time spent during direct patient evaluation and reassessment, interpreting diagnostic tests, directing life and/or organ supporting interventions and documentation on the unit. --Halina Ramirez MD * Swetha Dash RCP - 07/10/2016 4:18 PM EST NIV Note NIV Settings: NIV Mode: BiPAP IPAP (cmH20): 10 EPAP (cmH20): 8 Pressure Support (cm H2O): 2 FiO2 (%): 30 % NIV Interface: Face Mask NIV Measurements: Resp: 27 Mve: 8.4 Leak (L/min): 12 L/min Vte: 284 SpO2: 96 % Skin Assessment: bridge of nose slightly red, mepilex in place Assessment: Family states that breathing noises are about at baseline (low pitched inspiratory and expiratory grunting) Plan: NIV when sleeping, rt will continue to closely monitor and offer interventions * Ramiro Ignacio - 07/10/2016 3:04 PM EST Team aware * Swetha Dash RCP - 07/10/2016 11:01 AM EST Cinthya was extubated at 1015am. Stridor was noted post-extubation, alubterol MDI and atrovent given without noticeable change, racemic epi given with fair results. Team to bedside, ordered steroids. RT will monitor closely. PT has a weak to fair cough, swallows secretions. Y * Robby Kumar RCP - 07/10/2016 1:58 AM EST Received PT this shift on SIMV vol + PS 450 x 12 + 5 PEEP on 30% FiO2. RR 12 MV 5.3 SpO2 98% EtCO2 36. PT is orally intubated with a size 7.0 secured 25 @ the teeth. AMV protocol: Yes SBT protocol: Yes ?? Medications: Albuterol 6 puff Q2 PRN. Atrovent 6 puff Q6 PRN. Secretions: Suctioning small white thin secretions. BS: Clear/Diminished. Plan: Wean FiO2 to keep sats > 92%. Suction PRN. SBT when criteria met. Trial extubation possibly in am. ?? Shift Events: PT is a 55 y/o female admitted for status epilepticus with recent seizures intubated for airway protection. PT becomes very agitated with stimulation from oral suctioning or ETT suctioning. 0437: Begin SBT on CPAP of 5. RR 29 VT 223 SpO2 97% EtCO2 42. 0507: End SBT PT passed without complications. Current Settings: PSV 10/5 on 30% FiO2. ?? STRUCTURAL FITTER will continue to follow. * Trae Ramirez Jr., MD - 07/09/2016 11:23 PM EST Critical Care Attending Daily Progress Note Author TRAE RAMIREZ JR, MD Date 07/09/2016 I saw and examined this patient in the critical care unit. Active Problems 1. Intubated for airway protection 2. Status epilepticus 3. History of epilepsy, developmental delay Physical Exam General Critically ill, sedated, endotracheally intubated mechanically ventilated Lungs CTA(B) Heart RR Abdomen Soft, non-distended, BS(+) Neuro RASS -4 Respiratory Support SIMV Assessment, Management, and Decision Making 1. Continue anti-seizure medications. Discuss management plan with Neurology Service, consider resuming prior stable outpatient medication dose. 2. Consider EEG 3. Wean sedation / ventilator support as tolerated 4. Enteral nutritional support 5. Routine ICU prophylaxis 6. Full code Is this patient critically ill? Is there a high potential of sudden, clinically significant, or life threatening deterioration? Yes Is there a need for direct personal assessment and management to treat/prevent multiple vital organfailure/deterioration? Yes Patient is critically ill with these diagnoses being managed by the Critical Care Team: Intubated for airway protection secondary to status epilepticus Other status epilepticus IPI Certification I certify that I am a D-H credentialed attending provider with admitting privileges and that the patient meets or has met medical necessity to require an inpatient IPI level of care meeting a minimumof two midnights or is on the CMS inpatient only procedure list (status C) due to: delivery of critical care services as outlined in assessment and plan above I personally performed 30 minutes of aggregate critical care time exclusive of procedures and teaching. This includes time spent during direct patient evaluation and reassessment, interpreting diagnostic tests, directing life and/or organ supporting interventions and documentation on the unit. --Halina Ramirez MD * Jayne Carlson RN - 07/09/2016 7:50 PM EST Pt transferred from [facility]. Arrived sedated and intubated. Transitioned from versed to propofol and fent prn. Pt +agitated trying to pull out ETT. Wrist restraints and mitts applied. Not following commands. PERRLA. CXR and KUB done. Blood culture x1, urine sent, labs sent. ++difficult stick. Vascular access consulted. Wound care consulted. See charted wound issues. OGT placed. No seizure activity noted. Neuro in to assess. BG low, d50 given. BP soft, 500cc NS bolus given. Caregivers updated and at bedside. Returning tomorrow morning. Want to be present for possible extubation. * Umair Ayala RT - 07/09/2016 4:54 PM EST 07/09/16 1641 Ventilator Settings Servo I Ventilator Mode SIMV Vol + PS Resp. Rate Set 12 Tidal Volume Set 450 Set FiO2 40 % (SpO2 100% FIO2 0.5) Set PEEP (cm H2O) 5 PS Above PEEP (cm H2O) 10 Ventilator Measurements ETCO2 (mmHg) 33 mmHg Resp 12 Tidal Volume Measured Exp. 440 Peak Inspiratory Pressure 24 Minute Ventilation Total Exhaled (L/min) 5.3 SpO2 100 % Intermittent Nebulizer Treatments Cough - Type Suctioned Pt. Secretion Amount Small Secretion Color White Secretion Consistency Frothy Additional Documentation Comments agitated and fighting RN restrained. Pt remains on above settings: PH 7.41 PaCO2 44, PO2 146 (FIO2 0.5) HCO3 27. Plan is to leave on vent for airway protection overnight. documented in this encounter H&P Notes * Fifi Park APRN - 07/09/2016 3:00 PM EST Critical Care Admission Note Cinthya Brown is a 55 y.o. 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 for status epilepticus requiring intubation for airway protection. HPI: Today, the patient has reportedly experienced an increase in the frequency of her baseline seizures. She has been on multiple different antiepileptic medications in the past and has been admitted to the neurology service here in the past for cEEG monitoring during medication titrations. Recently, her Onfi was reduced from 40mg to 15mg between 06/14 and 06/24. She remains on Phenobarbital, Trileptal and Banzel. Her caregiver reports some URI symptoms this week with associated fevers (since Monday) and an increase in her baseline seizures somewhat since then, however, today she had 6-7 seizures prior to EMSbeing summoned. She received multiple doses of rectal diazepam and oral lorazepam without initial relief from her seizures. The EMS provider who transferred her here today was the same provider that responded to her home earlier in the day. She reports that when they arrived Cinthya was unresponsive on BiPAP. En route to the hospital she had one more witnessed GTC seizure and upon arrival to the [facility] ED she was intubated for airway protection. ROS: .Review of Systems - Unable to obtain, currently intubated and sedated. Past Medical History Diagnosis Date ??? Hyperlipidemia ??? MR (mental retardation) ??? RIA (obstructive sleep apnea) ??? Seizures No past surgical history on file. No family history on file. Social History Narrative None on file Outpatient medications: No current facility-administered medications on file prior to encounter. Current Outpatient Prescriptions on File Prior to Encounter Medication Sig Dispense Refill ??? OXcarbazepine (TRILEPTAL) [...] Tablet Take 1 tablet by mouth daily. (Patient taking differently: Take 50 mg by mouth daily.) 90 tablet 0 ??? LORazepam (ATIVAN) 1 mg Tablet Take 1-2 tablets at onset of seizure symptoms, if ineffective after 30 minutes may repeat dose. If still not effective please call neurologist theater projectionist. No more [id number] daily. 45 tablet 3 ??? rufinamide (BANZEL) [...] If still not effective please call neurologist theater projectionist. 1 kit 3 ??? furosemide (LASIX) 20 [...] tablet Take 40 mg by mouth daily. Previous inpatient medications: Allergies Allergen Reactions ??? Amoxicillin-Pot Clavulanate Rash ??? Risedronate Sodium Nausea And Vomiting Last value Range last 24 hrs Temperature Temp: 38.2 ??C (100.8 ??F) Temp: [38.2 ??C (100.8 ??F)] Heart Rate Heart Rate: 86 Heart Rate: [86] Blood Pressure BP: (!) 83/50 BP: (83)/(50) Respiratory Rate Resp: 12 Resp: [12] SpO2 SpO2: 100 % SpO2: [96 %-100 %] Art BP BP (Arterial Line): -- Ventilator Settings: AMV protocol Physical Exam: General: Non-toxic appearing female lying in bed in NAD. HEENT: PERRL. Sclera anicteric. Atraumatic. Normocephalic. Trachea midline. No JVD. Neuro: No eye opening, not following commands (although reportedly does not at baseline per caregiver), purposeful movements, VICTOR. Pulmonary: Scattered rhonchi bilaterally. Equal chest wall expansion. No subcutaneous air or crepitus noted. Cardiovascular: S1S2. RRR. No M/R/G. Abdomen: Soft, flat, non-tender. +BS throughout. : Clear yellow urine. Extremities: Peripheral pulses palpable throughout. CAM boot on RLE. Skin: Scattered petechial rash noted. Otherwise grossly intact. Labs: Last 3 wbc, hgb, hct plt Recent Labs 07/09/16 1545 WBC 10.0* HGB 12.3 HCT 36.6 PLATELET 173 Last 3 Lytes Recent Labs 07/09/16 1545 07/09/16 1520 NA 138 137 K 3.9 3.9 CL 98 100 CO2 27 24 BUN -- 9 CREATININE -- 0.49* Last 3 LFTs Recent Labs 07/09/16 1520 AST 63* ALT 40* ALKPHOS 159* BILITOT 0.6 BILIDIR 0.4* Last Ca, Mg, Phos Recent Labs 07/09/16 1520 CALCIUM 7.8* PHOS 1.4* Last 3 Coags Recent Labs 07/09/16 1557 PT 14.2 INR 1.1 Last 3 ProBNP, Trop, CK No results for input(s): CK, TROPONINT, PROBNP in the last 168 hours. Microbiology: Blood, UA, Sputum, Rapid Flu A/B/RSV and full DFA pending. ECG: NSR. Imaging: Chest XR and KUB pending. Assessment: This is a 55 year old female with significant, severe developmental delay and epilepticus who presents in transfer from [facility] following an episode of status epilepticus. She required multiple benzos in order to break her seizures and ultimately became minimally-responsive requiring intubation for airway protection, likely from the sedative effects of those medications. She also has hadURI symptoms since Monday and a presumed fever today (caregiver administered Tylenol for a flushedappearance) that may have lowered her otherwise tenuous seizure threshold. Her neurology team had also been recently titrating down her Onfi and this also may have lowered her threshold. Plan: Neuro: ?? Neurology consulted (known to their service) ?? Q4 hour neuro checks ?? PRN Ativan for seizures ?? Will continue Propofol for now for sedation and seizure suppression ?? Holding sedation initially for neuro exam ?? CTH at OSH unremarkable ?? May need to increase her Onfi dose back up, awaiting Neurology recommendations. Pulm: ?? Chest XRay pending ?? Standing DuoNebs ?? Will send Rapid Flu A/B/RSV and full DFA for caregiver report of fevers and URI s/s. ?? ABG pending ?? Transition to PSV and SBT later today vs tomorrow AM CV: ?? Peripheral NeoSynephrine as needed, suspect BP is soft secondary to sedation. ?? Lactic Acid pending ?? Will place arterial line if vasopressors are needed ?? No current indication for CVC GI: ?? NPO for now ?? Protonix (on home Nexium) ?? KUB pending for OGT placement ?? Mild elevation in transaminases, will re-check in AM Renal/FEK: ?? Monitor and replete electrolytes as indicated ?? Black needed for strict I&O ?? Will evaluate for further fluid administration pending LA level Hematology: ?? Heparin SQ for DVT prophylaxis ID: ?? May cover for possible CAP pending results of Chest XRay ?? No leukocytosis at the OSH, no fever here ?? CBC pending Endocrine: ?? SSI Other prophylaxis: Heparin SQ for DVT prophylaxis Protonix for GI prophylaxis HOB > 30 Chlorhexidine mouth care Mepliex to sacrum PT/OT: pending Lines/Tubes/Drains: ETT, PIV, OGT, Black - all placed at OSH today. Consults: Neurology Decision Making: Caregiver Code Status: FULL Disposition: ICU Fifi Park APRN July 09, 2016 Critical Care Green Team (pager [phone]) Dr. Ramirez is the attending of record for this admission documented in this encounter Miscellaneous Notes * Plan of Care - Hope Garcia RN - 07/13/2016 7:31 AM EST Problem: Patient Care Overview Goal: Plan of Care Review Outcome: Ongoing (Interventions Implemented as Appropriate) 07/11/16223607/13/16 002 Coping/Psychosocial Plan Of Care Reviewed With -- patient;caregiver Plan of Care Review Progress progress toward functional goals as expected -- OUTCOME EVALUATION NOTE: OUTCOME SUMMARY: Assumed care of pt at 2330. Pt sleeping w/ BiPAP in place. VSS/shift. Pt intermittently moaning, states Mom?, intermittently follows commands. No witnessed or reported seizure activity this shift. Incontinent of large amounts of urine overnight. No BM this shift, ? D/C contact precautions. IV abxinfusing w/o issue. Caregiver Lulu at bedside. PLAN MOVING FORWARD: Seizure precautions Abx Frequent karin-care, OOB as able INDIVIDUALIZED FALL PREVENTION INTERVENTIONS: Patient-specific fall risk factors per assessment: [current deficits]: Hx falls, developmental delay Assistance [level of assistance required for transfers and ambulation]: Heavy 2 stand pivot Supervision [direct monitoring required during toileting and ADLs]: Total care Surveillance [continuous indirect monitoring]: Bed alarm, caregiver at bedside, purposeful rounding Patient-specific fall prevention interventions for sensory deficits provided, if applicable: [X] N/A CPG GOAL OUTCOME EVALUATION: Goal: Fall Prevention-Safe Patient Handling Outcome: Ongoing (Interventions Implemented as Appropriate) 07/11/16223607/13/168 07/13/16 0523 Restraint Interventions Safety Promotion/Fall Prevention -- safety round/check completed -- Musculoskeletal Interventions Muscle Strengthening personal routines for BADL/IADL promoted;mobility in bed promoted;activity/mobility promoted -- -- Positioning Body Position -- -- supine Daily Care Interventions Self-Care Promotion independence encouraged;BADL personal objects within reach;BADL personal routines maintained;safe use of adaptive equipment encouraged -- -- Activity and Safety Assistive Device Other (seizure pads) -- -- Rodriguez Fall Risk History of Falling -- 25 -- Secondary Diagnosis -- 15 -- Ambulatory Aids -- 0 -- Intravenous Therapy/Heparin/Saline Lock -- 20 -- Gait/Transferring -- 0 -- Mental Status -- 15 -- Score -- 75 -- OTHER Rodriguez Fall Risk -- High -- Goal: Infection Control Outcome: Ongoing (Interventions Implemented as Appropriate) 07/12/16 2100 07/13/16 0028 07/13/16 0523 Safety Interventions Isolation Precautions -- -- contact precautions maintained Infection Prevention environmental surveillance performed;rest/sleep promoted -- -- Coping Strategies Supportive Measures -- active listening utilized;goal setting facilitated -- * Plan of Care - Jeff Delong RN - 07/12/2016 6:56 PM EST Problem: Patient Care Overview Goal: Plan of Care Review Outcome: Ongoing (Interventions Implemented as Appropriate) OUTCOME EVALUATION NOTE: OUTCOME SUMMARY: Patient alert this shift able to make needs know with help of caregiver at bedside. Patient incontinent of urine twice on this shift. MD ordered Cdiff testing and precaution protocol due to multiple bowel movements over last 12 hours and elevated temperature. Patient has not produced any stool since order placed. PLAN MOVING FORWARD: Monitor vital signs Plan for discharge INDIVIDUALIZED FALL PREVENTION INTERVENTIONS: Patient-specific fall risk factors per assessment: [current deficits]: Generalized weakness, difficulty communicating needs Assistance [level of assistance required for transfers and ambulation]: Total care Supervision [direct monitoring required during toileting and ADLs]: Total care Surveillance [continuous indirect monitoring]: Purposeful rounding, bed alarm Patient-specific fall prevention interventions for sensory deficits provided, if applicable: [X] N/A CPG GOAL OUTCOME EVALUATION: * Consult Note - Espinoza Medina RN - 07/12/2016 9:02 AM EST Certified Wound Care Nurse ICU Transfer Note Patient transferred from ICU to [facility]. Discussed patient with RN. Reviewed current plan of care for wounds/skin issues. Discussed that a member of the wound care team would be following the patient on Monday. RN verbalized understanding of current plan and had no other concerns at this time. Discussed with RN: Reese Delong * Plan of Care - Danya Rao RN - 07/11/2016 10:42 PM EST Problem: Patient Care Overview Goal: Plan of Care Review Outcome: Ongoing (Interventions Implemented as Appropriate) 07/11/162236 Coping/Psychosocial Plan Of Care Reviewed With patient;caregiver Plan of Care Review Progress progress toward functional goals as expected OUTCOME EVALUATION NOTE: OUTCOME SUMMARY: Patient alert, engaged this shift, interacting with caregiver, staff, assisting with ADLs as able, incontinent of stool, urine, no difficulty swallowing, frequent monitoring for seizure activity withno acute events observed or reported, caregiver at bedside PLAN MOVING FORWARD: Monitor for comfort, pain, safety, seizure activity, provide intervention and education as appropriate INDIVIDUALIZED FALL PREVENTION INTERVENTIONS: Patient-specific fall risk factors per assessment: [current deficits]: Chronic condition, weakness,unfamiliar environment, impulsivity, masimo cord Assistance [level of assistance required for transfers and ambulation]: Assist of two, mechanical lift as needed Supervision [direct monitoring required during toileting and ADLs]: Patient requires total assist for ADLs and toileting, continuous supervision Surveillance [continuous indirect monitoring]: Masimo, bed alarm, caregiver at bedside Patient-specific fall prevention interventions for sensory deficits provided, if applicable: [X] N/A CPG GOAL OUTCOME EVALUATION: Goal: Fall Prevention-Safe Patient Handling Outcome: Ongoing (Interventions Implemented as Appropriate) 07/11/16202207/11/162236 Restraint Interventions Safety Promotion/Fall Prevention -- activity supervised;fall prevention program maintained;muscle strengthening facilitated Musculoskeletal Interventions Muscle Strengthening -- personal routines for BADL/IADL promoted;mobility in bed promoted;activity/mobility promoted Positioning Body Position -- independent Daily Care Interventions Self-Care Promotion -- independence encouraged;BADL personal objects within reach;BADL personal routines maintained;safe use of adaptive equipment encouraged Activity and Safety Assistive Device -- Other (seizure pads) Rodriguez Fall Risk History of Falling 25 -- Secondary Diagnosis 15 -- Ambulatory Aids 0 -- Intravenous Therapy/Heparin/Saline Lock 20 -- Gait/Transferring 0 -- Mental Status 15 -- Score 75 -- OTHER Rodriguez Fall Risk High -- Goal: Infection Control Outcome: Ongoing (Interventions Implemented as Appropriate) 07/11/162236 Safety Interventions Isolation Precautions standard precautions maintained Infection Prevention environmental surveillance performed;rest/sleep promoted;personal protective equipment utilized;single patient room provided Coping Strategies Supportive Measures active listening utilized;positive reinforcement provided;self-care encouraged;relaxation techniques promoted;problem solving facilitated;verbalization of feelings encouraged * Plan of Care - Jeff Delong RN - 07/11/2016 6:30 PM EST Problem: Patient Care Overview Goal: Plan of Care Review Outcome: Ongoing (Interventions Implemented as Appropriate) OUTCOME EVALUATION NOTE: OUTCOME SUMMARY: Patient arrived on floor via transportation with at home caregiver at approximately 1530. Patient was incontinent of stool shortly after arriving on unit. Patient and caregiver oriented to room and call light system. Will continue to monitor and notify MD of any changes PLAN MOVING FORWARD: Monitor vital signs Monitor for seizures Plan for discharge INDIVIDUALIZED FALL PREVENTION INTERVENTIONS: Patient-specific fall risk factors per assessment: [current deficits]: Generalized weakness Assistance [level of assistance required for transfers and ambulation]: 1-2 assist Supervision [direct monitoring required during toileting and ADLs]: Hands on Surveillance [continuous indirect monitoring]: Purposeful rounding, bed alarm Patient-specific fall prevention interventions for sensory deficits provided, if applicable: [X] N/A CPG GOAL OUTCOME EVALUATION: Goal: Discharge Needs Assessment Outcome: Ongoing (Interventions Implemented as Appropriate) 07/09/16 1945 Activity/Self Care Review of Systems Equipment Currently Used at Home lift device;wheelchair Goal: Interdisciplinary Rounds/Family Conf Outcome: Ongoing (Interventions Implemented as Appropriate) 07/11/16 1824 Interdisciplinary Rounds/Family Conf Participants other (see comments) (caregiver) * Initial Assessments - Shonda Durbin RN - 07/11/2016 3:23 PM EST Office of Care Management Initial Assessment SHONDA DURBIN RN reviewed record and discussed patient with Care Team. Source of Information: patient's caregiver, Lulu Longoria Introduced self/reviewed role; services accepted. Reason for Hospitalization: Transferred intubated from [facility] with status epilepticus Past Medical History Diagnosis Date ??? Hyperlipidemia ??? MR (mental retardation) ??? IRA (obstructive sleep apnea) ??? Seizures Hospitalizations Within the Past 30 Days: none Anticipated Length Of Stay (If known): Patient to be transferred to floor today and anticipate homewithin the week Current Decision-Making Capacity: Does not have decision making capacity-has a guardian, Fifi Longoria Advance Care Planning: Has a guardian-we do not have a copy-Fifi is Lulu Longoria's daughter and she will ask her to bring in a copy Current Coping/Education/Information Needs: Patient was crying when I entered the room-Lulu explained that she had just received pain medication. When I left, she was showing me 2 $1 bills that she had in her hand. Current Functional Ability: At functional baseline-has been extubated and is ready to transfer to the floor Functional Status Prior to Admission: Cinthya had a leg fracture about a year ago and has not been upwalking since. She has a ramp and liv lift at home and is able to sit in a wheel chair. She was non weight bearing for several weeks and once able to bear weight has not been so motivated to do so-she has PT coming in through [facility], and Lulu describes the challenge to get her moving when she is just as happy to be in the chair . Home Environment: fully accessible home with ramps and handicapped van Social & Family Supports/Community Resources: Cinthya's parents had been living in [place] and currently in the process of moving to [place]-Lulu has not been able to reach them to update them on this hospitalization. They are not answering their cell-Lulu was told that they would call heronce they got to [place], so she will tell them then. Patient has lived with Lulu and her family for 21 years. Behavioral Health History: No issues Substance Use/Abuse: none Other Pertinent/Service Specific Information: n/a Health/Prescription Coverage: Primary Insurance: Medicare Secondary Insurance: [place] Medicaid Prescription Coverage: above-no issues Preferred Pharmacy: [facility] [place] and [facility] [place] ; has also gotten medications at [facility] Other: n/a Primary Care Provider: Luis Manuel Blanca MD [phone] Patient/Caregiver Goals of Treatment:Lulu would like to have Cinthya return directly home as soonas able-she is prepared to meet all her needs and does not feel she would do well with another adjustment to rehab. Potential Needs for Transition of Care: Rehab/SNF: n/a Home Health: [facility] DME: Liv ortiz, ramp Dialysis: n/a Community Resources: n/a Transportation: has a handicapped van Other: lives in residential group home with one other resident Anticipated Barriers to Discharge/Special Considerations: none Plan: Home with [facility] once medically ready A member of the Care Management team will continue to monitor progress, follow for continuity of care and assist with transition of care planning. SHONDA DURBIN, RN Pager: [phone] * Consult Note - Espinoza Medina RN - 07/11/2016 11:30 AM EST Certified Wound Care Nurse Note Situation: Asked to see Cinthya Brown by nursing for non-blanchable redness heels, sacrum, elbows and nose Background: eD-H notes reviewed for history, admitting diagnosis and active problem list. Wound Assessment and Care Provided: Pt developmentally delayed. Explained purpose of visit to pt and caregiver and agreed to assessment. Pt with red discoloration to arms and nose, not pressure related. Elbows intact with blanchable erythema. Heels with dry flaky skin, pink and blanchable. Moisturizing lotion applied. Pt turned to left side. Skin over occiput, spine and sacrum intact with no discoloration. Knees padded with mepilexborder dressing, no discoloration noted. Carmelo Score: 13 Last Pressure Ulcer Prevention assessment: Shift Pressure Injury Prevention Occiput: No Injury Thoracic Spine: No Injury Sacral: No Injury Ischial - left: No Injury Ischial - right: No Injury Heel - left: No Injury Heel - right: No Injury Elbow - left: No Injury Elbow - right: No Injury Device Sites: O2 sat monitor, Bi pap/C pap mask, IV sites, black, ECG Leads Other Sites: ID band, BP cuff Nutritional Status Wt Readings from Last 1 Encounters: 07/10/16 68.6 kg (151 lb 3.8 oz) Body mass index is 35.15 kg/(m^2). Current bed: total care sport Assessment: Pt with no active pressure injury at this time. Pt remains at risk due to limited mobility and bodyhabitus. Continue to monitor and assist with repositioning every 2 hours. Wound Care Recommendations: Mepilex Border dressing-change every 3 days and PRN: sacrum and bony prominences as needed 1. Cleanse wound with dermal wound cleanser. 2. Apply Mepilex Border dressing Mobility: Turn and reposition every 2 hours and document in ED-H. Place a pillow above and below sacral area to off load pressure to the sacrum Offload pressure from heels by placing pillows lengthwise beneath legs while in bed. Offload pressure from heels by adjusting length of foot of bed. Activity: Implement reminder system for repositioning every two hours while in bed Limit time OOB to the chair to 2 hour intervals. Use a [employer] chair cushion beneath patient at all times while in the chair. Reinforce teaching to shift weight every 15 minutes while in the chair. Wound care will follow weekly. Discussed plan with: RN: Abhi Alvarenga Please contact ESPINOZA MEDINA RN on pager [phone] or the wound care team at [phone] or pager [phone] with skin and wound care concerns or questions. Electronically Signed By: ESPINOZA MEDINA RN * Consult Note - Luz Elizabeth MD - 07/11/2016 10:40 AM EST General Neurology Consult Note Patient name:Cinthya Brown Date of :1960 Admit date: 07/09/2016 Primary Attending: Trae Ramirez Jr., MD ID: Cinthya Brown is a 55 y.o. F with PMHx of cognitive impairment, RIA, and epilepsy with VNS who presents in transfer from [facility] for increasing frequency of seizures in the setting of an acuterespiratory illness over the five days prior to presentation. Interval History: - Has maintained her airway without concern since extubation, though her respiratory infection continues to bother her - No further seizure events have been witnessed - Denies any new neurological symptoms of any kind - Family is comfortable keeping her on her current AED regimen on discharge Physical Exam: Vitals: Temp: [36.4 ??C (97.5 ??F)-38.4 ??C (101.1 ??F)] Heart Rate: [86-101] Resp: [22-35] BP: (91-146)/(48-86) SpO2: [93 %-99 %] Heart Rate from SPO2: [86 bpm-101 bpm] Gen: Patient of apparent stated age, well nourished, intermittently coughing but in NAD Ext: 1+ pedal edema BL Neuro Exam: MS: More awake and alert today, dysarthric with a raspy voice, no expressive or receptive aphasia, replies mostly in one to few word sentences (baseline per family), follows some simple commands and participates in some of the exam CN: PERRL, No facial asymmetry Motor: Normal bulk and tone. Moves all four limbs spontaneously, hand sprayer on R>>L, LE strength grossly symmetrical though 2/2 prior broken R leg moves it slightly less frequently than L (per family) Sensation: Grossly intact to light touch throughout Reflexes: DTRs 1+ R, 1+ L Biceps 1+ R, 1+ L Brachioradialis 1+ R, 1+ L Triceps 1+ R, 1+ L Patellar 1+ R, 1+ L Achilles tendon Toes withdraws BL Coordination: No tremors at rest Gait: not assessed Labs: Recent Results (from the past 24 hour(s)) POCT Glucose Result Value Ref Range POC Glucose 117 65 - 199 mg/dL Potassium Result Value Ref Range Potassium 3.9 3.5 - 5.0 mmol/L POCT Glucose Result Value Ref Range POC Glucose 141 65 - 199 mg/dL POCT Glucose Result Value Ref Range POC Glucose 117 65 - 199 mg/dL POCT Glucose Result Value Ref Range POC Glucose 102 65 - 199 mg/dL POCT Glucose Result Value Ref Range POC Glucose 98 65 - 199 mg/dL POCT Glucose Result Value Ref Range POC Glucose 82 65 - 199 mg/dL Basic Metabolic Panel (non-fasting) Result Value Ref Range Glucose Lvl 86 65 - 199 mg/dL BUN 8 8 - 18 mg/dL Creatinine 0.43 (L) 0.70 - 1.20 mg/dL Sodium 140 135 - 145 mmol/L Potassium 3.6 3.5 - 5.0 mmol/L Chloride 101 98 - 107 mmol/L CO2 25 22 - 31 mmol/L Anion Gap 14 5 - 15 mmol/L Calcium 8.0 (L) 8.5 - 10.5 mg/dL Estimated GFR >60 >=60 Hemogram Result Value Ref Range WBC 6.7 4.0 - 9.5 x10(3)/mcL RBC 3.83 (L) 4.00 - 5.21 x10(6)/mcL Hemoglobin 10.6 (L) 11.7 - 15.5 gm/dL Hematocrit 32.3 (L) 35.7 - 45.8 % MCV 84.3 82.6 - 94.4 fL MCH 27.7 27.1 - 32.0 pg MCHC 32.8 31.7 - 35.0 gm/dL Platelets 165 145 - 357 x10(3)/mcL RDWSD 43.5 37.0 - 46.0 fL RDWCV 14.1 11.5 - 14.1 % MPV 9.7 7.6 - 12.9 fL nRBC % Auto 0.0 % nRBC Abs Auto 0.000 0.000 - 0.000 x10(3)/mcL Differential, Automated Result Value Ref Range Neutrophils % 71.9 % Neutr Abs (ANC) 4.83 1.70 - 6.10 x10(3)/mcL Lymphocytes % 21.6 % Lymphocytes Abs 1.4 0.9 - 3.2 x10(3)/mcL Monocytes % 5.8 % Monocyte Abs 0.4 0.3 - 0.9 x10(3)/mcL Eosinophils % 0.0 % Eosinophils Abs 0.0 0.0 - 0.4 x10(3)/mcL Basophils % 0.3 % Basophils Abs 0.0 0.0 - 0.1 x10(3)/mcL Immature Gran % 0.40 % Carolyn Gran Abs 0.03 0.00 - 0.04 x10(3)/mcL Assessment / Recommendations: Cinthya Brown is a 55 y.o. F with cognitive impairment, RIA, and epilepsy with VNS who presents intransfer from [facility] for increasing frequency of seizures in the setting of an acute respiratory illness over the five days prior to presentation. Her acute respiratory illness had likely decreased her seizure threshold and resulted in her increased frequency of seizures at home prior to her presentation, and treating any underling infections remains a priority. Since admission she has not had any further clinical seizures and she should remain on her current AED regimen at her outpatient doses; there is no need to make any adjustments at this time. She can follow up in the neurology clinic as previously planned, and a message will be sent to her outpatient neurologist. Please call with any additional questions if they arise. Good Craig MD PGY3, Neurology Resident Personal Pager #[phone] General Neurology Consults #[phone] ATTENDING NOTE: I reviewed the pertinent events overnight. I repeated the pertinent aspects of the physical examination. I reviewed the impression and plan with the resident and agree with it as documented. Luz Elizabeth MD Attending Physician Neuromuscular Medicine & Clinical Neurophysiology * Consult Note - Terri Macedo RN - 07/11/2016 8:36 AM EST Paged to draw blood for labs on this pt. SHe has good visible veins and was very good when I did draw her blood. Blood draw from the left hand without difficulty. Needs to have someone hold her hand but tolerates blood draw well. DSD applied to site with minimal bleeding noted. * Plan of Care - Fifi Lindquist RN - 07/11/2016 5:22 AM EST Problem: Patient Care Overview Goal: Plan of Care Review Outcome: Ongoing (Interventions Implemented as Appropriate) 07/10/161999 Coping/Psychosocial Plan Of Care Reviewed With caregiver;patient OUTCOME EVALUATION NOTE: OUTCOME SUMMARY: Patient tolerated BiPAP overnight, caregiver (Marita) at bedside and participating in care. Patient slept peacefully, afebrile, IVF continued, no interventions or issues. Urine output decreased overnight, total output 400cc. Team aware. PLAN MOVING FORWARD: Continue to monitor respiratory status. INDIVIDUALIZED FALL PREVENTION INTERVENTIONS: Patient-specific fall risk factors per assessment: [current deficits]: Generalized weakness, extubated on 07/10, PT eval recommended. Assistance [level of assistance required for transfers and ambulation]: Min x2 assist for transfers/turns Supervision [direct monitoring required during toileting and ADLs]: Caregiver at bedside, supportive and involved in patient care Surveillance [continuous indirect monitoring]: Francisco Javier continuous ICU monitoring CPG GOAL OUTCOME EVALUATION: Goal: Fall Prevention-Safe Patient Handling 07/10/16 0600 07/10/16199907/11/16 0400 Rodriguez Fall Risk History of Falling -- 25 -- Secondary Diagnosis -- 15 -- Ambulatory Aids -- 0 -- Intravenous Therapy/Heparin/Saline Lock -- 20 -- Gait/Transferring -- 0 -- Mental Status -- 15 -- Score -- 75 -- OTHER Rodriguez Fall Risk -- High -- Restraint Interventions Safety Promotion/Fall Prevention -- -- safety round/check completed Positioning Body Position side-lying, right -- -- Goal: Infection Control 07/10/16199907/10/16 2100 Safety Interventions Isolation Precautions -- standard precautions maintained Infection Prevention -- single patient room provided;rest/sleep promoted;environmental surveillanceperformed Coping Strategies Supportive Measures active listening utilized;decision-making supported;positive reinforcement provided;self-responsibility promoted -- Goal: Discharge Needs Assessment 07/09/161944 Activity/Self Care Review of Systems Equipment Currently Used at Home lift device;wheelchair * Plan of Care - Lucy Naik, FOOT MITER OPERATOR - 07/10/2016 12:28 PM EST Problem: Patient Care Overview Goal: Plan of Care Review Outcome: Ongoing (Interventions Implemented as Appropriate) 07/10/16 1224 Coping/Psychosocial Plan Of Care Reviewed With patient;caregiver (primary RN) SPEECH-LANGUAGE PATHOLOGY Evaluation ASSESSMENT: Pt presents with essentially functional swallow with some stridorous breathing s/p extubation and baseline impulsivity. Some hx of occasionally choking on raw fruits / vegetables (such as carrots or apples). Appropriate to begin dysphagia soft diet, likely ADAT to regular tomorrow assuming good tolerance. FOOT MITER OPERATOR will continue to follow along. For further details, please see corresponding flowsheet. RECOMMENDATIONS: ?? Diet: dysphagia soft, thin liquids ?? PO meds whole in bite of pudding or with liquid wash ?? Aspiration precautions: Assistance at meals to keep to small bites/sips, slowed rate (pt impulsive) ?? Do not anticipate pt will require FOOT MITER OPERATOR in d/c environment Lucy Naik MS, [facility]-FOOT MITER OPERATOR Speech-Language Pathologist Rehabilitation Medicine Pager - [phone] Problem: Acute Rehab Services Goal & Intervention Plan Goal: Dysphagia Goal Stand Alone Therapy Goal Outcome: Ongoing (Interventions Implemented as Appropriate) 07/10/16 1224 Dysphagia Goal Dysphagia Goal, Date Established 07/10/16 Dysphagia Goal, Time to Achieve by discharge Dysphagia Goal, Activity Type PO nutrition and medication Oral Nutritional Level Goal safely tolerates/maintains adequate oral nutrition;safely tolerates recommended diet texture;safely tolerates recommended liquid viscosity;no signs/symptoms of aspiration present Dysphagia Goal, Additional Goal Caregivers will demonstrate comprehension for aspiration precautions * Consult Note - Luz Elizabeth MD - 07/10/2016 12:27 AM EST General Neurology Consult Note Patient name:Cinthya Brown Date of :1960 Admit date: 07/09/2016 Primary Attending: Trae Ramirez Jr., MD ID: Cinthya Brown is a 55 y.o. F with PMHx of cognitive impairment, RIA, and epilepsy with VNS who presents in transfer from [facility] for increasing frequency of seizures in the setting of an acuterespiratory illness over the five days prior to presentation. Interval History: - Admitted to the ICU - Remained intubated overnight with propofol on board (goal to wean off entirely and extubated) - OGT placed and continued on home medications - No further seizure events overnight - Passed SBT and successfully extubated this morning - She complains of a cold! and points to her lungs, and she is glad she is being started on antibiotics - Family feels she is closer to her baseline mental status and level of interaction but she remainsdrowsy - Denies any new neurological symptoms of any kind Physical Exam: Vitals: Temp: [36.9 ??C (98.4 ??F)-38.5 ??C (101.3 ??F)] Heart Rate: [83-105] Resp: [12-30] BP: (83-121)/(50-77) SpO2: [93 %-100 %] Heart Rate from SPO2: [83 bpm-109 bpm] Gen: Patient of apparent stated age, well nourished, intermittently coughing and appears somewhat uncomfortable Ext: 1+ pedal edema BL Neuro Exam: MS: Drowsy but interactive, dysarthric with a raspy voice from intubation but no expressive or receptive aphasia, replies mostly in one to few word sentences (baseline per family), follows some simple commands and participates in some of the exam CN: PERRL, No facial asymmetry, Motor: Normal bulk and tone. Holds her dollar bill up in the air throughout the exam without issues(sometimes changes which hand she holds up), hand sprayer on R>>L, LE strength grossly symmetrical though 2/2 prior broken R leg moves it slightly less frequently than L (per family) Sensation: Grossly intact to light touch throughout Reflexes: DTRs 1+ R, 1+ L Biceps 1+ R, 1+ L Brachioradialis 1+ R, 1+ L Triceps 1+ R, 1+ L Patellar 1+ R, 1+ L Achilles tendon Toes withdraws BL Coordination, Gait: not assessed Labs: Recent Results (from the past 24 hour(s)) Lower Respiratory Culture Tracheal Aspirate Result Value Ref Range Lower Respiratory Culture (A) Many Haemophilus species : Identification to follow. Many possible Streptococcus pneumoniae : Identification to follow. Gram Stain (A) Many White Blood Cells seen Many White Blood Cells seen No squamous epithelial cells seen Few Gram Positive lancet-shaped Diplococci seen POCT Glucose Result Value Ref Range POC Glucose 79 65 - 199 mg/dL BLOOD GAS 2 ARTERIAL Result Value Ref Range pH Art 7.41 7.35 - 7.45 pCO2 Art 44 35 - 45 mmHg pO2 Art 146 (H) 85 - 104 mmHg HCO3 Art 27.3 (H) 20.0 - 26.0 mmol/L BE Art 2.7 -3.0 - 3.0 mmol/L Hgb Blood Gas 12.7 11.7 - 15.5 gm/dL O2HB Art 97.5 (H) 94.0 - 97.0 % COHB Art 0.3 % METHB Art 0.7 <=1.5 % Na Whole Blood 137 135 - 145 mmol/L K Whole Blood 3.6 3.5 - 5.0 mmol/L ICa Whole Blood 1.09 (L) 1.15 - 1.33 mmol/L CL Whole Blood 102 98 - 107 mmol/L Gluc Whole Bld 89 65 - 199 mg/dL Lactate WB 2.4 (H) 0.5 - 2.2 mmol/L FIO2 Art 50 % PF Ratio Art 292 Basic Metabolic Panel (non-fasting) Result Value Ref Range Glucose Lvl 90 65 - 199 mg/dL BUN 9 8 - 18 mg/dL Creatinine 0.49 (L) 0.70 - 1.20 mg/dL Sodium 137 135 - 145 mmol/L Potassium 3.9 3.5 - 5.0 mmol/L Chloride 100 98 - 107 mmol/L CO2 24 22 - 31 mmol/L Anion Gap 13 5 - 15 mmol/L Calcium 7.8 (L) 8.5 - 10.5 mg/dL Estimated GFR >60 >=60 Magnesium Result Value Ref Range Magnesium 0.65 (L) 0.69 - 1.07 mmol/L Phosphorus Result Value Ref Range Phosphorus 1.4 (CRIT) 2.5 - 4.5 mg/dL Hepatic Function Panel Result Value Ref Range Total Protein 5.5 (L) 6.1 - 8.0 gm/dL Albumin 3.2 3.2 - 5.2 gm/dL AST 63 (H) 0 - 30 unit/L ALT 40 (H) 0 - 30 unit/L Alk Phos 159 (H) 40 - 104 unit/L Total Bilirubin 0.6 0.2 - 1.3 mg/dL Bili, Direct 0.4 (H) 0.0 - 0.3 mg/dL Beta Hydroxybutyrate Result Value Ref Range BOHB <0.10 0.00 - 0.30 mmol/L Rapid Respiratory Virus Antigen Panel Nasopharyngeal Swab Result Value Ref Range Rapid Virus Antigen Stain DFA Negative for Adenovirus Antigen DFA Negative for Human Metapneumovirus Antigen DFA Negative for Influenza Virus Type A Antigen DFA Negative for Influenza Virus Type B Antigen DFA Negative for Parainfluenza Virus Type 1 Antigen DFA Negative for Parainfluenza Virus Type 2 Antigen DFA Negative for Parainfluenza Virus Type 3 Antigen DFA Negative for Respiratory Syncytial Virus Antigen Rapid Influenza A/B and RSV PCR Result Value Ref Range Influenza A PCR Not Detected Not Detected Influenza B PCR Not Detected Not Detected RSV PCR Not Detected Not Detected Resp PCR Source SENIOR RESEARCH PROJECT MANAGER Swab Electrolytes panel Result Value Ref Range Sodium 138 135 - 145 mmol/L Potassium 3.9 3.5 - 5.0 mmol/L Chloride 98 98 - 107 mmol/L CO2 27 22 - 31 mmol/L Anion Gap 13 5 - 15 mmol/L Hemogram Result Value Ref Range WBC 10.0 (H) 4.0 - 9.5 x10(3)/mcL RBC 4.33 4.00 - 5.21 x10(6)/mcL Hemoglobin 12.3 11.7 - 15.5 gm/dL Hematocrit 36.6 35.7 - 45.8 % MCV 84.5 82.6 - 94.4 fL MCH 28.4 27.1 - 32.0 pg MCHC 33.6 31.7 - 35.0 gm/dL Platelets 173 145 - 357 x10(3)/mcL RDWSD 43.8 37.0 - 46.0 fL RDWCV 14.1 11.5 - 14.1 % MPV 9.8 7.6 - 12.9 fL nRBC % Auto 0.0 % nRBC Abs Auto 0.000 0.000 - 0.000 x10(3)/mcL Differential, Automated Result Value Ref Range Neutrophils % 82.0 % Neutr Abs (ANC) 8.22 (H) 1.70 - 6.10 x10(3)/mcL Lymphocytes % 10.9 % Lymphocytes Abs 1.1 0.9 - 3.2 x10(3)/mcL Monocytes % 6.6 % Monocyte Abs 0.7 0.3 - 0.9 x10(3)/mcL Eosinophils % 0.0 % Eosinophils Abs 0.0 0.0 - 0.4 x10(3)/mcL Basophils % 0.1 % Basophils Abs 0.0 0.0 - 0.1 x10(3)/mcL Immature Gran % 0.40 % Carolyn Gran Abs 0.04 0.00 - 0.04 x10(3)/mcL Scan, Peripheral Blood Result Value Ref Range Plat Estimate Normal RBC Morphology Normal Blue Tube HOLD Result Value Ref Range Blue Hold Sample in lab. Prothrombin Time Result Value Ref Range PT 14.2 12.0 - 15.0 sec INR 1.1 0.9 - 1.1 Urinalysis with reflex Culture Result Value Ref Range Glucose UA Negative Negative mg/dL Protein UA 100 (A) Negative mg/dL Bilirubin UA Negative Negative mg/dL Urobilinogen UA Normal Normal mg/dL pH UA 8.0 5.0 - 8.0 Blood UA Negative Negative mg/dL Ketones UA Negative Negative mg/dL Nitrite UA Negative Negative Leukocytes UA Negative Negative mcL Appearance UA Clear Clear Spec Morrison UA 1.018 1.002 - 1.030 Color UA Yellow Yellow RBC UA 1 0 - 4 /HPF WBC UA 1 0 - 5 /HPF Culture Reflexed No POCT Glucose Result Value Ref Range POC Glucose 67 65 - 199 mg/dL POCT Glucose Result Value Ref Range POC Glucose 86 65 - 199 mg/dL POCT Glucose Result Value Ref Range POC Glucose 62 (L) 65 - 199 mg/dL POCT Glucose Result Value Ref Range POC Glucose 84 65 - 199 mg/dL POCT Glucose Result Value Ref Range POC Glucose 85 65 - 199 mg/dL Basic Metabolic Panel (non-fasting) Result Value Ref Range Glucose Lvl 104 65 - 199 mg/dL BUN 5 (L) 8 - 18 mg/dL Creatinine 0.46 (L) 0.70 - 1.20 mg/dL Sodium 137 135 - 145 mmol/L Potassium 3.5 3.5 - 5.0 mmol/L Chloride 98 98 - 107 mmol/L CO2 25 22 - 31 mmol/L Anion Gap 14 5 - 15 mmol/L Calcium 7.9 (L) 8.5 - 10.5 mg/dL Estimated GFR >60 >=60 Magnesium Result Value Ref Range Magnesium 0.88 0.69 - 1.07 mmol/L Phosphorus Result Value Ref Range Phosphorus 3.0 2.5 - 4.5 mg/dL Hepatic Function Panel Result Value Ref Range Total Protein 6.1 6.1 - 8.0 gm/dL Albumin 3.1 (L) 3.2 - 5.2 gm/dL AST 34 (H) 0 - 30 unit/L ALT 35 (H) 0 - 30 unit/L Alk Phos 153 (H) 40 - 104 unit/L Total Bilirubin 0.3 0.2 - 1.3 mg/dL Bili, Direct 0.1 0.0 - 0.3 mg/dL Phenobarbital level Result Value Ref Range Phenobarb Lvl 30.7 15.0 - 40.0 mg/L POCT Glucose Result Value Ref Range POC Glucose 105 65 - 199 mg/dL Hemogram Result Value Ref Range WBC 8.6 4.0 - 9.5 x10(3)/mcL RBC 4.14 4.00 - 5.21 x10(6)/mcL Hemoglobin 11.9 11.7 - 15.5 gm/dL Hematocrit 35.3 (L) 35.7 - 45.8 % MCV 85.3 82.6 - 94.4 fL MCH 28.7 27.1 - 32.0 pg MCHC 33.7 31.7 - 35.0 gm/dL Platelets 195 145 - 357 x10(3)/mcL RDWSD 44.2 37.0 - 46.0 fL RDWCV 14.4 (H) 11.5 - 14.1 % MPV 10.4 7.6 - 12.9 fL nRBC % Auto 0.0 % nRBC Abs Auto 0.000 0.000 - 0.000 x10(3)/mcL Differential, Automated Result Value Ref Range Neutrophils % 80.5 % Neutr Abs (ANC) 6.94 (H) 1.70 - 6.10 x10(3)/mcL Lymphocytes % 13.5 % Lymphocytes Abs 1.2 0.9 - 3.2 x10(3)/mcL Monocytes % 5.2 % Monocyte Abs 0.4 0.3 - 0.9 x10(3)/mcL Eosinophils % 0.0 % Eosinophils Abs 0.0 0.0 - 0.4 x10(3)/mcL Basophils % 0.2 % Basophils Abs 0.0 0.0 - 0.1 x10(3)/mcL Immature Gran % 0.60 % Carolyn Gran Abs 0.05 (H) 0.00 - 0.04 x10(3)/mcL POCT Glucose Result Value Ref Range POC Glucose 87 65 - 199 mg/dL POCT Glucose Result Value Ref Range POC Glucose 117 65 - 199 mg/dL Assessment / Recommendations: Cinthya Brown is a 55 y.o. F with cognitive impairment, RIA, and epilepsy with VNS who presents intransfer from [facility] for increasing frequency of seizures in the setting of an acute respiratory illness over the five days prior to presentation. Since admission she has not had any further clinical seizures. Her acute illness 5 days prior to presentation likely decreased her seizure threshold and resulted in her increased frequency of seizures at home prior to her presentation, and treating any underling infections remains a priority. She had a fever this morning and the ICU team has empirically started her on antibiotics. She has successfully been weaned from propofol overnight and was extubated without issues this morning. Her family feels she is closer to her baseline mental status and motor function but is not quite as alert or interactive as she is at home. She should continue on her current AED regimen at her outpatient doses; there is no need to make any adjustments at this time. Good Craig MD PGY3, Neurology Resident Personal Pager #[phone] General Neurology Consults #[phone] ATTENDING NOTE: I reviewed the pertinent aspects of the history with the patient and agree with the history as outlined in the resident's note. I repeated the pertinent aspects of the physical examination and agree with it as documented in the resident's note. I reviewed the impression and plan with the resident and agree with it as documented. Luz Elizabeth MD Attending Physician Neuromuscular Medicine & Clinical Neurophysiology * Consult Note - Luz Elizabeth MD - 07/09/2016 3:04 PM EST Neurology Consult Note Patient name:Cinthya Brown Date of :1960 Admit date: 07/09/2016 Primary Attending: Trae Ramirez Jr., MD Neurology Consult Attending: Luz Elizabeth CC: increased seizures We have been asked to see Cinthya Brown by Dr. Ramirez. HPI: (N.B., history is from family and caregiver) Cinthya Brown is a 55 y.o. F with PMHx of cognitive impairment, RIA, and epilepsy with VNS who presents in transfer from [facility] for increasing frequency of seizures in the setting of an acuterespiratory illness over the past five days. Pt has longstanding hx of GTC szs treated with multiple AEDs. Her most recent regimen has been oxcarbazepine 600 mg TID, phenobarbital 120 mg qhs, and clobazam. She was started on clobazam back in November 2015 and achieved total cessation of seizures at dose of 40 mg qhs but developed severe behavioral manifestations (extreme emotional lability; screaming at imaginary people; etc.). Pt's clobazam was subsequently decreased from 40 to 20 to 15 mg qhs on Jun, after which her behavior improved but her seizure frequency increased to and remained stable at 3 per week. This Monday, pt developed cough and congestion without fevers and began to experience more frequent seizures, 1-2 per day. She had two seizures (each < 1 min) last night, and her caregiver gave her 2 mg lorazepam with rapid resolution of seizure. This morning, pt had 6-7 seizures, the longest of which was roughly 5 minutes in length, and the caregiver gave her 2 mg lorazepam and 15 mg rectal diazepam before taking her to [facility] ED, where pt was sedated on propofol + fentanyl, intubated forairway protection, and transferred to [facility] ICU. Pt continued on propofol drip in ICU upon arrival. Caregiver notes that multiple family members have been sick with URI s/s at home this week. Past Medical & Surgical History: Past Medical History Diagnosis Date ??? Hyperlipidemia ??? MR (mental retardation) ??? RIA (obstructive sleep apnea) ??? Seizures No past surgical history on file. Home Medications: No current facility-administered medications on file prior to encounter. Current Outpatient Prescriptions on File Prior to Encounter Medication Sig Dispense Refill ??? OXcarbazepine (TRILEPTAL) [...] Tablet Take 1 tablet by mouth daily. (Patient taking differently: Take 50 mg by mouth daily.) 90 tablet 0 ??? LORazepam (ATIVAN) 1 mg Tablet Take 1-2 tablets at onset of seizure symptoms, if ineffective after 30 minutes may repeat dose. If still not effective please call neurologist theater projectionist. No more [id number] daily. 45 tablet 3 ??? rufinamide (BANZEL) [...] If still not effective please call neurologist theater projectionist. 1 kit 3 ??? furosemide (LASIX) 20 [...] tablet Take 40 mg by mouth daily. Hospital Medications: Scheduled Meds: ??? atorvastatin 40 mg Oral Daily ??? cloBAZam 15 mg Oral Nightly ??? melatonin 3 mg Oral Nightly ??? OXcarbazepine 600 mg Oral TID ??? PHENobarbital 121.5 mg Oral Nightly ??? QUEtiapine 25 mg Oral Nightly ??? sertraline 50 mg Oral Daily ??? chlorhexidine 15 mL Oral 2 times per day ??? insulin lispro 1-4 Units Subcutaneous Q4H DAVID ??? sodium chloride 0.9 % 5 mL Intravenous Q12H ??? pantoprazole 40 mg Oral Daily Or ??? pantoprazole 40 mg Intravenous Daily ??? heparin (porcine) 5,000 Units Subcutaneous 2 times per day ??? ipratropium-albuterol 3 mL Nebulization Q4H ??? [START ON 07/10/2016] rufinamide 800 mg Oral BID ??? rufinamide 1,200 mg Oral QPM Continuous Infusions: ??? propofol 15 mcg/kg/min (07/09/16 1500) ??? sodium chloride 0.9% 10 mL/hr (07/09/16 1458) ??? PHENYLephrine in NS (PF) PRN Meds:.dextrose 50% OR glucagon (human recombinant), sodium chloride 0.9 %, lidocaine, sodium chloride 0.9%, albuterol, LORazepam, acetaminophen Allergies: Allergies Allergen Reactions ??? Amoxicillin-Pot Clavulanate Rash ??? Risedronate Sodium Nausea And Vomiting Family history: No family history on file. Social history: Smoking: never smoker EtOH: no IVDA: no Living situation: not independent, has teletypist Review of systems: (limited ROS due to pt sedation) Constitutional: No fevers HENT: +rhinorrhea and congestion Eyes: No eye discharge Resp: +cough GI: No vomiting or diarrhea Neuro: See HPI Psych: +mood lability Physical Exam: Vitals: Temp: [38.2 ??C (100.8 ??F)] Heart Rate: [86] Resp: [12] BP: (83)/(50) SpO2: [96 %] Heart Rate from SPO2: -- Gen: Patient of apparent stated age, well nourished, sedated Neck: Supple CV: Normal rate, S1/S2, no murmur Resp: ronchi bilaterally Abd: +bowel sounds, soft, nontender, nondistended Ext: 1+ pedal edema bilat Neuro Exam: MS: Sedated, opens eyes to voice and follows hand sprayer command on R and faintly on L CN: Pupils 3 mm bilat, reactive No facial asymmetry Motor: Normal bulk and tone. Strong hand sprayer on R, weak on L. Withdraws BLE to noxious stimuli. Sensation: Responds to noxious stimuli at all extremities. Reflexes: DTRs 1+ R, 1+ L Biceps 1+ R, 1+ L Brachioradialis Unable to access Triceps due to pt positioning 1+ R, 1+ L Patellar 1+ R, 1+ L Achilles tendon Toes - R down, L down Coordination, Gait: not assessed Labs: Recent Results (from the past 24 hour(s)) POCT Glucose Result Value Ref Range POC Glucose 79 65 - 199 mg/dL Basic Metabolic Panel (non-fasting) Result Value Ref Range Glucose Lvl 90 65 - 199 mg/dL BUN 9 8 - 18 mg/dL Creatinine 0.49 (L) 0.70 - 1.20 mg/dL Sodium 137 135 - 145 mmol/L Potassium 3.9 3.5 - 5.0 mmol/L Chloride 100 98 - 107 mmol/L CO2 24 22 - 31 mmol/L Anion Gap 13 5 - 15 mmol/L Calcium 7.8 (L) 8.5 - 10.5 mg/dL Estimated GFR >60 >=60 Magnesium Result Value Ref Range Magnesium 0.65 (L) 0.69 - 1.07 mmol/L Phosphorus Result Value Ref Range Phosphorus 1.4 (CRIT) 2.5 - 4.5 mg/dL Hepatic Function Panel Result Value Ref Range Total Protein 5.5 (L) 6.1 - 8.0 gm/dL Albumin 3.2 3.2 - 5.2 gm/dL AST 63 (H) 0 - 30 unit/L ALT 40 (H) 0 - 30 unit/L Alk Phos 159 (H) 40 - 104 unit/L Total Bilirubin 0.6 0.2 - 1.3 mg/dL Bili, Direct 0.4 (H) 0.0 - 0.3 mg/dL Electrolytes panel Result Value Ref Range Sodium 138 135 - 145 mmol/L Potassium 3.9 3.5 - 5.0 mmol/L Chloride 98 98 - 107 mmol/L CO2 27 22 - 31 mmol/L Anion Gap 13 5 - 15 mmol/L Hemogram Result Value Ref Range WBC 10.0 (H) 4.0 - 9.5 x10(3)/mcL RBC 4.33 4.00 - 5.21 x10(6)/mcL Hemoglobin 12.3 11.7 - 15.5 gm/dL Hematocrit 36.6 35.7 - 45.8 % MCV 84.5 82.6 - 94.4 fL MCH 28.4 27.1 - 32.0 pg MCHC 33.6 31.7 - 35.0 gm/dL Platelets 173 145 - 357 x10(3)/mcL RDWSD 43.8 37.0 - 46.0 fL RDWCV 14.1 11.5 - 14.1 % MPV 9.8 7.6 - 12.9 fL nRBC % Auto 0.0 % nRBC Abs Auto 0.000 0.000 - 0.000 x10(3)/mcL Blue Tube HOLD Result Value Ref Range Blue Hold Sample in lab. Assessment / Recommendations: Cinthya Brown is a 55 y.o. F with PMHx of cognitive impairment, RIA, and epilepsy who presents in transfer from [facility] for increasing frequency of seizures in the setting of acute respiratoryillness over the past five days. Her increase in seizure frequency and duration is most likely a consequence of reduced threshold in setting of acute URI, though her low Mg and Phosphorous may also be contributing and should be repleted. Her recent downward titration of clobazam due to behavioral disturbances may have reduced her levels to subtherapeutic. Would recommend checking levels of all three AEDs. Given pt's history of behavioral disturbance with higher doses of clobazam, would recommend maintaining current dose of 15 mg qhs for now. No current evidence to suggest ongoing status epilepticus; would not recommend EEG at present. Case discussed with Dr. Mckee and Dr. Elizabeth. -replete Mg and Phosphorus -attempt to wean propofol -draw oxcarbazepine, phenobarbital, and clobazam levels -keep clobazam dosage at 15 mg qhs Azam Fritz MD - EM PGY1 Neuro Consults ATTENDING NOTE: I reviewed the pertinent aspects of the history with the patient and agree with the history as outlined in the resident's note. I repeated the pertinent aspects of the physical examination and agree with it as documented in the resident's note. I reviewed the impression and plan with the resident and agree with it as documented. Luz Elizabeth MD Attending Physician Neuromuscular Medicine & Clinical Neurophysiology documented in this encounter Plan of Treatment Upcoming Encounters Date Type Department Care Team (Late st Contact Info) Description 08/06/2024 11:00 AM EST [place] [address] Sarah Serra, D[facility] [place] [address] documented as of this encounter Procedures Procedure Name Priority Date/Time Associated Diagnosis Comments NETWORKING ENGINEER SCAN 07/14/2016 12:00 AM EST HEMOGRAM Routine 07/13/2016 6:50 AM EST DIFFERENTIAL, AUTOMATED Routine 07/13/20 16 6:50 AM EST CBC (WITH DIFF) Routine 07/13/2016 6:50 AM EST BASIC METABOLIC PANEL Routine 07/13/2016 6:50 AM EST POCT GLUCOSE Routine 07/12/2016 7:04 AM EST HEMOGRAM Routine 07/12/2016 6:15 AM EST DIFFERENTIAL, AUTOMATED Routine 07/12/20 16 6:15 AM EST CBC (WITH DIFF) Routine 07/12/2016 6:15 AM EST BASIC METABOLIC PANEL Routine 07/12/2016 6:15 AM EST POCT GLUCOSE Routine 07/12/2016 3:51 AM EST POCT GLUCOSE Routine 07/11/2016 11:50 PM EST POCT GLUCOSE Routine 07/11/2016 8:08 PM EST POCT GLUCOSE Routine 07/11/2016 5:05 PM EST POCT GLUCOSE Routine 07/11/2016 12:14 PM EST HEMOGRAM Routine 07/11/2016 8:35 AM EST DIFFERENTIAL, AUTOMATED Routine 07/11/20 16 8:35 AM EST CBC (WITH DIFF) Routine 07/11/2016 8:35 AM EST BASIC METABOLIC PANEL Routine 07/11/2016 8:35 AM EST POCT GLUCOSE Routine 07/11/2016 8:33 AM EST POCT GLUCOSE Routine 07/11/2016 4:02 AM EST POCT GLUCOSE Routine 07/11/2016 12:12 AM EST POCT GLUCOSE Routine 07/10/2016 7:48 PM EST POCT GLUCOSE Routine 07/10/2016 4:17 PM EST POTASSIUM Routine 07/10/2016 1:45 PM EST POCT GLUCOSE Routine 07/10/2016 11:48 AM EST EXTUBATE Routine 07/10/2016 9:20 AM EST POCT GLUCOSE Routine 07/10/2016 7:51 AM EST CLOBAZAM LEVEL Routine 07/10/2016 4:00 AM EST POCT GLUCOSE Routine 07/10/2016 4:00 AM EST HEMOGRAM Routine 07/10/2016 4:00 AM EST DIFFERENTIAL, AUTOMATED Routine 07/10/20 16 4:00 AM EST OXCARBAZEPINE METABOLITE (MHC) Routine 07/10/2016 4:00 AM EST BLOOD CULTURE STAT 07/10/2016 4:00 AM EST CBC (WITH DIFF) Routine 07/10/2016 4:00 AM EST PHOSPHORUS Routine 07/10/2016 4:00 AM EST MAGNESIUM Routine 07/10/2016 4:00 AM EST PHENOBARBITAL LEVEL Routine 07/10/2016 4 :00 AM EST HEPATIC FUNCTION PANEL Routine 6 4:00 AM EST BASIC METABOLIC PANEL Routine 07/10/2016 4:00 AM EST POCT GLUCOSE Routine 07/09/2016 11:55 PM EST POCT GLUCOSE Routine 07/09/2016 9:08 PM EST POCT GLUCOSE Routine 07/09/2016 7:58 PM EST XR ABDOMEN 1 VIEW Routine 07/09/2016 6:0 3 PM EST POCT GLUCOSE Routine 07/09/2016 5:56 PM EST POCT GLUCOSE Routine 07/09/2016 5:11 PM EST URINALYSIS WITH REFLEX CULTURE STAT 07/09/2016 5:00 PM EST BLOOD CULTURE STAT 07/09/2016 4:15 PM EST BLUE TUBE HOLD Routine 07/09/2016 3:57 PM EST PROTHROMBIN TIME Routine 07/09/2016 3:57 PM EST SCAN, PERIPHERAL BLOOD Routine 6 3:45 PM EST HEMOGRAM Routine 07/09/2016 3:45 PM EST DIFFERENTIAL, AUTOMATED Routine 07/09/20 16 3:45 PM EST CBC (WITH DIFF) Routine 07/09/2016 3:45 PM EST ELECTROLYTES PANEL Routine 07/09/2016 3: 45 PM EST RAPID INFLUENZA A/B AND RSV PCR ([facility]/CGP/APD/NL) STAT 07/09/2016 3:29 PM EST RESP VIRUS AG PANEL STAT 07/09/2016 3 :29 PM EST EKG 12-LEAD STAT 07/09/2016 3:23 PM EST Intractable [place]-G[place] syndrome without status epilepticus BETA HYDROXYBUTYRATE STAT 07/09/2016 3:20 PM EST PHOSPHORUS STAT 07/09/2016 3:20 PM EST MAGNESIUM STAT 07/09/2016 3:20 PM EST HEPATIC FUNCTION PANEL STAT 6 3:20 PM EST BASIC METABOLIC PANEL STAT 07/09/2016 3:20 PM EST BLOOD GAS ARTERIAL POC Routine 6 3:11 PM EST XR CHEST ONE VIEW STAT 07/09/2016 2:5 7 PM EST POCT GLUCOSE Routine 07/09/2016 2:48 PM EST LOWER RESPIRATORY CULTURE STAT 07/09/2016 2:42 PM EST documented in this encounter Results * SCAN DOC: NETWORKING ENGINEER (07/14/2016 12:00 AM EST) Anatomical Region Laterality Modality Other Scanning Provider MEDIA MGR SCAN EXT O RDR/RSLT * (ABNORMAL) Differential, Automated (07/13/2016 6:50 AM EST) Neutrophil % 67.0 % [facility] Neutrophil Absolute 4.67 1.70 - 6.10 x10(3)/mc L [facility] Lymph % 19.8 % [facility] Lymphocytes Abs 1.4 0.9 - 3.2 x10(3)/ L [facility] Monocyte % 8.5 % [facility] Monocyte Abs 0.6 0.3 - 0.9 x10(3)/mc L [facility] Eos % 0.0 % [facility] Eosinophils Abs 0.0 0.0 - 0.4 x10(3)/ L [facility] Basophil % 1.0 % [facility] Baso Absolute 0.1 0.0 - 0.1 x10(3)/mc L [facility] Immature Gran % 3.70 % [facility] Comment: Immature granulocytes(IG's)percentage and absolute count will include metamyelocytes, myelocytes, and promyelocytes. Blood smears from CBCs yielding IG's will be scanned manually for concordance. If this scan disagrees with the automated IG or if promyelocytes are noted, a manual differential will be performed. Immature Gran Absolute 0.26(H) 0.00 - 0.04 x10(3)/mc L [facility] Blood specimen (specimen) 07/13/2016 6:50 AM EST 07/13/2016 7:04 AM EST Narrative Resulting Agency Comment Spec In Lab Lulu Cummings MD HEMATOLOGY ORDERA BLES [facility] [place] [address] * Hemogram (07/13/2016 6:50 AM EST) White Blood Cell 7.0 4.0 - 9.5 x10(3)/[facility] Red Blood Cell 4.48 4.00 - 5.21 x10(6)/[facility] Hemoglobin 12.4 11.7 - 15.5 gm/dL [facility] Hematocrit 37.7 35.7 - 45.8 % [facility] Mean Cell Volume 84.2 82.6 - 94.4 fL [facility] Mean Cell Hemoglobin 27.7 27.1 - 32.0 pg [facility] Mean Cell Hemoglobin Concentration 32.9 31.7 - 35.0 gm/dL [facility] Platelet 228 145 - 357 x10(3)/[facility] RDW Standard Deviation 42.3 37.0 - 46.0 fL [facility] RDW coefficient of variation 13.7 11.5 - 14.1 % [facility] Mean Platelet Volume 9.6 7.6 - 12.9 fL [facility] NRBC% auto 0.0 % [facility] NRBC Absolute 0.000 0.000 - 0.000 x10(3)/[facility] Blood specimen (specimen) 07/13/2016 6:50 AM EST 07/13/2016 7:04 AM EST Narrative Resulting Agency Comment Spec In Lab Lulu Cummings MD HEMATOLOGY ORDERA BLES Performing Organization Address City/[facility]/ZIP Co de Phone Number [facility] [place] [address] * (ABNORMAL) Basic Metabolic Panel (non-fasting) (07/13/2016 6:50 AM EST) Glucose 98 65 - 199 mg/dL [facility] Comment:Diabetes: >=200 mg/d L plus symptoms Blood Urea Nitrogen 10 8 - 18 mg/dL [facility] Creatinine 0.52(L) 0.70 - 1.20 mg/dL [facility] Comment: Please note that the pediatric reference intervals supplied above were not validated at [facility]. Results from pediatric patients should be interpreted in conjunction to the patient's age, height and muscle mass. Sodium 137 135 - 145 mmol/L [facility] Potassium 3.9 3.5 - 5.0 mmol/L [facility] Comment: Please note: ??Patients with WBC >100,000 may have falsely elevated Potassium levels. ??For accurate Potassium quantification in these patients send serum separator tube (gold top) for subsequent determinations. ??Contact the Clinical Chemistry Laboratory if there are any questions. Chloride 94(L) 98 - 107 mmol/L [facility] Carbon Dioxide 26 22 - 31 mmol/L [facility] Anion Gap 17(H) 5 - 15 mmol/L [facility] Calcium 8.7 8.5 - 10.5 mg/dL [facility] Est Glomerular Filtration Rate >60 >=60 [facility] Comment: This estimated GFR (eGFR) value [...] the following links into your internet browser. [email or web address] Blood specimen (specimen) 07/13/2016 6:50 AM EST 07/13/2016 7:04 AM EST Narrative Resulting Agency Comment Spec In Lab Lulu Cummings MD CHEMISTRY ORDERAB LES Performing Organization Address City/[facility]/ZIP Co de Phone Number [facility] [place] [address] * POCT Glucose (07/12/2016 7:04 AM EST) [facility] Glucose, POC 82 65 - 199 mg/dL [facility] Comment: Supplemental ranges: <140 mg/dL before meals <180 mg/dL all other times of the day Blood specimen (specimen) 07/12/2016 7:04 AM EST 07/12/2016 7:04 AM EST Lulu Cummings MD POINT OF CARE YAZMIN T ORDERABLES Performing Organization Address [facility] Co de Phone Number [facility] [place] [address] * (ABNORMAL) Differential, Automated (07/12/2016 6:15 AM EST) [facility] Neutrophil % 66.0 % [facility] Neutrophil Absolute 3.59 1.70 - 6.10 x10(3)/mc L [facility] Lymph % 25.2 % [facility] Lymphocytes Abs 1.4 0.9 - 3.2 x10(3)/mc L [facility] Monocyte % 6.6 % [facility] Monocyte Abs 0.4 0.3 - 0.9 x10(3)/mc L [facility] Eos % 0.0 % [facility] Eosinophils Abs 0.0 0.0 - 0.4 x10(3)/mc L [facility] Basophil % 0.4 % [facility] Baso Absolute 0.0 0.0 - 0.1 x10(3)/mc L [facility] Immature Gran % 1.80 % [facility] Comment: Immature granulocytes(IG's)percentage and absolute count will include metamyelocytes, myelocytes, and promyelocytes. Blood smears from CBCs yielding IG's will be scanned manually for concordance. If this scan disagrees with the automated IG or if promyelocytes are noted, a manual differential will be performed. Immature Gran Absolute 0.10(H) 0.00 - 0.04 x10(3)/mc L [facility] Blood specimen (specimen) 07/12/2016 6:15 AM EST 07/12/2016 6:39 AM EST Narrative Resulting Agency Comment Spec In Lab Lulu Cummings MD HEMATOLOGY ORDERA BLES [facility] [place] [address] * Hemogram (07/12/2016 6:15 AM EST) White Blood Cell 5.4 4.0 - 9.5 x10(3)/[facility] Red Blood Cell 4.24 4.00 - 5.21 x10(6)/[facility] Hemoglobin 11.8 11.7 - 15.5 gm/dL [facility] Hematocrit 35.8 35.7 - 45.8 % [facility] Mean Cell Volume 84.4 82.6 - 94.4 fL [facility] Mean Cell Hemoglobin 27.8 27.1 - 32.0 pg [facility] Mean Cell Hemoglobin Concentration 33.0 31.7 - 35.0 gm/dL [facility] Platelet 209 145 - 357 x10(3)/[facility] RDW Standard Deviation 43.0 37.0 - 46.0 fL [facility] RDW coefficient of variation 13.8 11.5 - 14.1 % [facility] Mean Platelet Volume 9.8 7.6 - 12.9 fL [facility] NRBC% auto 0.0 % [facility] NRBC Absolute 0.000 0.000 - 0.000 x10(3)/[facility] Blood specimen (specimen) 07/12/2016 6:15 AM EST 07/12/2016 6:39 AM EST Narrative Resulting Agency Comment Spec In Lab Lulu Cummings MD HEMATOLOGY ORDERA BLES [facility] [place] [address] * (ABNORMAL) Basic Metabolic Panel (non-fasting) (07/12/2016 6:15 AM EST) Glucose 93 65 - 199 mg/dL [facility] Comment:Diabetes: >=200 mg/d L plus symptoms Blood Urea Nitrogen 8 8 - 18 mg/dL [facility] Creatinine 0.48(L) 0.70 - 1.20 mg/dL [facility] Comment: Please note that the pediatric reference intervals supplied above were not validated at [facility]. Results from pediatric patients should be interpreted in conjunction to the patient's age, height and muscle mass. Sodium 135 135 - 145 mmol/L [facility] Potassium 3.9 3.5 - 5.0 mmol/L [facility] Comment: Please note: ??Patients with WBC >100,000 may have falsely elevated Potassium levels. ??For accurate Potassium quantification in these patients send serum separator tube (gold top) for subsequent determinations. ??Contact the Clinical Chemistry Laboratory if there are any questions. Chloride 96(L) 98 - 107 mmol/L [facility] Carbon Dioxide 26 22 - 31 mmol/L [facility] Anion Gap 13 5 - 15 mmol/L [facility] Calcium 8.7 8.5 - 10.5 mg/dL [facility] Est Glomerular Filtration Rate >60 >=60 [facility] Comment: This estimated GFR (eGFR) value [...] the following links into your internet browser. [email or web address] Blood specimen (specimen) 07/12/2016 6:15 AM EST 07/12/2016 6:39 AM EST Narrative Resulting Agency Comment Spec In Lab Lulu Cummings MD CHEMISTRY ORDERAB LES Performing Organization Address [facility] Co de Phone Number [facility] [place] [place] [address] * POCT Glucose (07/12/2016 3:51 AM EST) Glucose, POC 83 65 - 199 mg/dL [facility] Comment: Supplemental ranges: <140 mg/dL before meals <180 mg/dL all other times of the day Blood specimen (specimen) 07/12/2016 3:51 AM EST 07/12/2016 3:51 AM EST Lulu Cummings MD POINT OF CARE YAZMIN T ORDERABLES Performing Organization Address [facility] Co de Phone Number [facility] [place] [place] [address] * POCT Glucose (07/11/2016 11:50 PM EST) Glucose, POC 89 65 - 199 mg/dL [facility] Comment: Supplemental ranges: <140 mg/dL before meals <180 mg/dL all other times of the day Blood specimen (specimen) 07/11/2016 11:50 PM EST 07/11/2016 11:50 PM EST Lulu Cummings MD POINT OF CARE YAZMIN T ORDERABLES Performing Organization Address [facility] Co de Phone Number [facility] [place] [place] [address] * POCT Glucose (07/11/2016 8:08 PM EST) Glucose, POC 99 65 - 199 mg/dL [facility] Comment: Supplemental ranges: <140 mg/dL before meals <180 mg/dL all other times of the day Blood specimen (specimen) 07/11/2016 8:08 PM EST 07/11/2016 8:08 PM EST Lulu Cummings MD POINT OF CARE YAZMIN T ORDERABLES Performing Organization Address City/[facility]/ZIP Co de Phone Number [facility] [place] [address] * POCT Glucose (07/11/2016 5:05 PM EST) Glucose, POC 106 65 - 199 mg/dL [facility] Comment: Supplemental ranges: <140 mg/dL before meals <180 mg/dL all other times of the day Blood specimen (specimen) 07/11/2016 5:05 PM EST 07/11/2016 5:05 PM EST Lulu Cummings MD POINT OF CARE YAZMIN T ORDERABLES Performing Organization Address [facility] Co de Phone Number [facility] [place] [address] * POCT Glucose (07/11/2016 12:14 PM EST) Glucose, POC 119 65 - 199 mg/dL [facility] Comment: Supplemental ranges: <140 mg/dL before meals <180 mg/dL all other times of the day Blood specimen (specimen) 07/11/2016 12:14 PM EST 07/11/2016 12:14 PM EST Trae Ramirez Jr., MD POINT OF CARE TE ST ORDERABLES Performing Organization Address City/[facility] Co de Phone Number [facility] [place] [address] * Differential, Automated (07/11/2016 8:35 AM EST) Neutrophil % 71.9 % [facility] Neutrophil Absolute 4.83 1.70 - 6.10 x10(3)/mcL [facility] Lymph % 21.6 % [facility] Lymphocytes Abs 1.4 0.9 - 3.2 x10(3)/[facility] Monocyte % 5.8 % [facility] Monocyte Abs 0.4 0.3 - 0.9 x10(3)/[facility] Eos % 0.0 % [facility] Eosinophils Abs 0.0 0.0 - 0.4 x10(3)/[facility] Basophil % 0.3 % [facility] Baso Absolute 0.0 0.0 - 0.1 x10(3)/[facility] Immature Gran % 0.40 % [facility] Comment: Immature granulocytes(IG's)percentage and absolute count will include metamyelocytes, myelocytes, and promyelocytes. Blood smears from CBCs yielding IG's will be scanned manually for concordance. If this scan disagrees with the automated IG or if promyelocytes are noted, a manual differential will be performed. Immature Gran Absolute 0.03 0.00 - 0.04 x10(3)/[facility] Blood specimen (specimen) 07/11/2016 8:35 AM EST 07/11/2016 8:38 AM EST Narrative Resulting Agency Comment Spec In Lab Trae Ramirez Jr., MD HEMATOLOGY ORDER ROQUE Performing Organization Address City/State/[facility] Co de Phone Number [facility] [place] [address] * (ABNORMAL) Hemogram (07/11/2016 8:35 AM EST) White Blood Cell 6.7 4.0 - 9.5 x10(3)/[facility] Red Blood Cell 3.83(L) 4.00 - 5.21 x10(6)/[facility] Hemoglobin 10.6(L) 11.7 - 15.5 gm/dL [facility] Hematocrit 32.3(L) 35.7 - 45.8 % [facility] Mean Cell Volume 84.3 82.6 - 94.4 fL [facility] Mean Cell Hemoglobin 27.7 27.1 - 32.0 pg [facility] Mean Cell Hemoglobin Concentration 32.8 31.7 - 35.0 gm/dL [facility] Platelet 165 145 - 357 x10(3)/mc L [facility] RDW Standard Deviation 43.5 37.0 - 46.0 fL [facility] RDW coefficient of variation 14.1 11.5 - 14.1 % [facility] Mean Platelet Volume 9.7 7.6 - 12.9 fL [facility] NRBC% auto 0.0 % [facility] NRBC Absolute 0.000 0.000 - 0.000 x10(3)/mc L [facility] Blood specimen (specimen) 07/11/2016 8:35 AM EST 07/11/2016 8:38 AM EST Narrative Resulting Agency Comment Spec In Lab Trae Ramirez Jr., MD HEMATOLOGY ORDER ROQUE [facility] [place] [address] * (ABNORMAL) Basic Metabolic Panel (non-fasting) (07/11/2016 8:35 AM EST) Glucose 86 65 - 199 mg/dL [facility] Comment:Diabetes: >=200 mg/d L plus symptoms Blood Urea Nitrogen 8 8 - 18 mg/dL [facility] Creatinine 0.43(L) 0.70 - 1.20 mg/dL [facility] Comment: Please note that the pediatric reference intervals supplied above were not validated at [facility]. Results from pediatric patients should be interpreted in conjunction to the patient's age, height and muscle mass. Sodium 140 135 - 145 mmol/L [facility] Potassium 3.6 3.5 - 5.0 mmol/L [facility] Comment: Please note: ??Patients with WBC >100,000 may have falsely elevated Potassium levels. ??For accurate Potassium quantification in these patients send serum separator tube (gold top) for subsequent determinations. ??Contact the Clinical Chemistry Laboratory if there are any questions. Chloride 101 98 - 107 mmol/L [facility] Carbon Dioxide 25 22 - 31 mmol/L [facility] Anion Gap 14 5 - 15 mmol/L [facility] Calcium 8.0(L) 8.5 - 10.5 mg/dL [facility] Est Glomerular Filtration Rate >60 >=60 [facility] Comment: This estimated GFR (eGFR) value [...] the following links into your internet browser. [email or web address] Blood specimen (specimen) 07/11/2016 8:35 AM EST 07/11/2016 8:38 AM EST Narrative Resulting Agency Comment Spec In Lab Lulu Cummings MD CHEMISTRY ORDERAB LES Performing Organization Address City/State/[facility] Co tx Phone Number [facility] [place] [address] * POCT Glucose (07/11/2016 8:33 AM EST) Glucose, POC 82 65 - 199 mg/dL [facility] Comment: Supplemental ranges: <140 mg/dL before meals <180 mg/dL all other times of the day Blood specimen (specimen) 07/11/2016 8:33 AM EST 07/11/2016 8:33 AM EST Trae Ramirez Jr., MD POINT OF CARE TE ST ORDERABLES Performing Organization Address City/State/[facility] Co de Phone Number [facility] [place] [place] [address] * POCT Glucose (07/11/2016 4:02 AM EST) Glucose, POC 98 65 - 199 mg/dL [facility] Comment: Supplemental ranges: <140 mg/dL before meals <180 mg/dL all other times of the day Blood specimen (specimen) 07/11/2016 4:02 AM EST 07/11/2016 4:02 AM EST Trae Ramirez Jr., MD POINT OF CARE TE ST ORDERABLES Performing Organization Address [facility] Phone Number [facility] [place] [address] * POCT Glucose (07/11/2016 12:12 AM EST) Glucose, POC 102 65 - 199 mg/dL [facility] Comment: Supplemental ranges: <140 mg/dL before meals <180 mg/dL all other times of the day Blood specimen (specimen) 07/11/2016 12:12 AM EST 07/11/2016 12:12 AM EST Trae Ramirez Jr., MD POINT OF CARE TE ST ORDERABLES Performing Organization Address [facility] de Phone Number [facility] [place] [address] * POCT Glucose (07/10/2016 7:48 PM EST) Glucose, POC 117 65 - 199 mg/dL [facility] Comment: Supplemental ranges: <140 mg/dL before meals <180 mg/dL all other times of the day Blood specimen (specimen) 07/10/2016 7:48 PM EST 07/10/2016 7:48 PM EST Trae Ramirez Jr., MD POINT OF CARE TE ST ORDERABLES Performing Organization Address City/[facility]/ZIP Co de Phone Number [facility] [place] [address] * POCT Glucose (07/10/2016 4:17 PM EST) Glucose, POC 141 65 - 199 mg/dL [facility] Comment: Supplemental ranges: <140 mg/dL before meals <180 mg/dL all other times of the day Blood specimen (specimen) 07/10/2016 4:17 PM EST 07/10/2016 4:17 PM EST Trae Ramirez Jr., MD POINT OF CARE TE ST ORDERABLES Performing Organization Address City/[facility]/ZIP Co de Phone Number [facility] [place] [address] * Potassium (07/10/2016 1:45 PM EST) Potassium 3.9 3.5 - 5.0 mmol/L [facility] Comment: Please note: ??Patients with WBC >100,000 may have falsely elevated Potassium levels. ??For accurate Potassium quantification in these patients send serum separator tube (gold top) for subsequent determinations. ??Contact the Clinical Chemistry Laboratory if there are any questions. Blood specimen (specimen) 07/10/2016 1:45 PM EST 07/10/2016 1:55 PM EST Narrative Resulting Agency Comment Spec In Lab Trae Ramirez Jr., MD CHEMISTRY ORDERA BLES Performing Organization Address City/[facility]/ZIP Co de Phone Number [facility] [place] [address] * POCT Glucose (07/10/2016 11:48 AM EST) Glucose, POC 117 65 - 199 mg/dL [facility] Comment: Supplemental ranges: <140 mg/dL before meals <180 mg/dL all other times of the day Blood specimen (specimen) 07/10/2016 11:48 AM EST 07/10/2016 11:48 AM EST Trae Ramirez Jr., MD POINT OF CARE mCASH ST ORDERABLES Performing Organization Address City/[facility]/ZIP Co de Phone Number [facility] [place] [address] * POCT Glucose (07/10/2016 7:51 AM EST) [facility] Glucose, POC 87 65 - 199 mg/dL [facility] Comment: Supplemental ranges: <140 mg/dL before meals <180 mg/dL all other times of the day Blood specimen (specimen) 07/10/2016 7:51 AM EST 07/10/2016 7:51 AM EST Trae Ramirez Jr., MD POINT OF CARE [facility] ORDERABLES Performing Organization Address [facility] Co de Phone Number [facility] [place] [address] * (ABNORMAL) Differential, Automated (07/10/2016 4:00 AM EST) [facility] Neutrophil % 80.5 % [facility] Neutrophil Absolute 6.94(H) 1.70 - 6.10 x10(3)/mc L [facility] Lymph % 13.5 % [facility] Lymphocytes Abs 1.2 0.9 - 3.2 x10(3)/mc L [facility] Monocyte % 5.2 % [facility] Monocyte Abs 0.4 0.3 - 0.9 x10(3)/mc L [facility] Eos % 0.0 % [facility] Eosinophils Abs 0.0 0.0 - 0.4 x10(3)/mc L [facility] Basophil % 0.2 % [facility] Baso Absolute 0.0 0.0 - 0.1 x10(3)/mc L [facility] Immature Gran % 0.60 % [facility] Comment: Immature granulocytes(IG's)percentage and absolute count will include metamyelocytes, myelocytes, and promyelocytes. Blood smears from CBCs yielding IG's will be scanned manually for concordance. If this scan disagrees with the automated IG or if promyelocytes are noted, a manual differential will be performed. Immature Gran Absolute 0.05(H) 0.00 - 0.04 x10(3)/ L [facility] Blood specimen (specimen) 07/10/2016 4:00 AM EST 07/10/2016 4:08 AM EST Narrative Resulting Agency Comment Spec In Lab Trae Ramirez Jr., MD HEMATOLOGY ORDER ROQUE [facility] [place] [address] * (ABNORMAL) Hemogram (07/10/2016 4:00 AM EST) White Blood Cell 8.6 4.0 - 9.5 x10(3)/[facility] Red Blood Cell 4.14 4.00 - 5.21 x10(6)/[facility] Hemoglobin 11.9 11.7 - 15.5 gm/dL [facility] Hematocrit 35.3(L) 35.7 - 45.8 % [facility] Mean Cell Volume 85.3 82.6 - 94.4 [facility] Mean Cell Hemoglobin 28.7 27.1 - 32.0 pg [facility] Mean Cell Hemoglobin Concentration 33.7 31.7 - 35.0 gm/dL [facility] Platelet 195 145 - 357 x10(3)/ L [facility] RDW Standard Deviation 44.2 37.0 - 46.0 [facility] RDW coefficient of variation 14.4(H) 11.5 - 14.1 % [facility] Mean Platelet Volume 10.4 7.6 - 12.9 [facility] NRBC% auto 0.0 % [facility] NRBC Absolute 0.000 0.000 - 0.000 x10(3)/ L [facility] Blood specimen (specimen) 07/10/2016 4:00 AM EST 07/10/2016 4:08 AM EST Narrative Resulting Agency Comment Spec In Lab Trae Ramirez Jr., MD HEMATOLOGY ORDER ROQUE Performing Organization Address [facility]/ZIP Co de Phone Number [facility] [place] [address] * POCT Glucose (07/10/2016 4:00 AM EST) Glucose, POC 105 65 - 199 mg/dL [facility] Comment: Supplemental ranges: <140 mg/dL before meals <180 mg/dL all other times of the day Blood specimen (specimen) 07/10/2016 4:00 AM EST 07/10/2016 4:00 AM EST Trae Ramirez Jr., MD POINT OF CARE TE ST ORDERABLES Performing Organization Address [facility] Co de Phone Number [facility] [place] [address] * Blood culture (07/10/2016 4:00 AM EST) Blood Culture No growth at 5 days. [facility] Blood specimen (specimen) STRUCTURE OF LEFT FOOT / Unknown 07/10/2016 4:00 AM EST 07/10/2016 4:06 AM EST Narrative Resulting Agency Comment Spec In Lab Trae Ramirez Jr., MD MICROBIOLOGY - B LOOD ORDERABLES Performing Organization Address [facility]/ZIP Co de Phone Number [facility] [place] [address] * Clobazam Level (07/10/2016 4:00 AM EST) Clobazam (DECEMBER) 115 30 - 300 ng/mL [facility] Comment: Test Performed by: [employer] [address] [place] [id number] Desmethylclobazam (DECEMBER) 2754 300 - 3000 ng/mL [facility] Comment: This test was developed and its performance characteristics determined by [facility]. ??It has not been cleared or approved by the Food and Drug Administration. Test Performed by: [employer] [address] [place] [id number] Blood specimen (specimen) 07/10/2016 4:00 AM EST 07/11/2016 9:02 AM EST Narrative Resulting Agency Comment Spec In Lab Trae Ramirez Jr., MD LAB SEND OUT ORD ERABLES Performing Organization Address [facility] Co de Phone Number [facility] [place] [address] * Oxcarbazepine Metabolite (MHC) (07/10/2016 4:00 AM EST) Oxcarbazep Met (Mhc) (DECEMBER) 25 3 - 35 mcg/mL [facility] Comment: ADDITIONAL INFORMATION This test was developed and its performance characteristics determined by [facility] in a manner consistent with CLIA requirements. This test has not been cleared or approved by the U.S. Food and Drug Administration. Test Performed by: [facility] [place] [facility] - [address] [address] Supervisor Production Department: Alok Mata II, M.D., Ph.D. Blood specimen (specimen) 07/10/2016 4:00 AM EST 07/11/2016 9:02 AM EST Narrative Resulting Agency Comment Spec In Lab Trae Ramirez Jr., MD LAB SEND OUT ORD ERABLES Performing Organization Address [facility] Co de Phone Number [facility] [place] [address] * (ABNORMAL) Basic Metabolic Panel (non-fasting) (07/10/2016 4:00 AM EST) Glucose 104 65 - 199 mg/dL [facility] Comment:Diabetes: >=200 mg/d L plus symptoms Blood Urea Nitrogen 5(L) 8 - 18 mg/dL [facility] Creatinine 0.46(L) 0.70 - 1.20 mg/dL [facility] Comment: Please note that the pediatric reference intervals supplied above were not validated at [facility]. Results from pediatric patients should be interpreted in conjunction to the patient's age, height and muscle mass. Sodium 137 135 - 145 mmol/L [facility] Potassium 3.5 3.5 - 5.0 mmol/L [facility] Comment: Please note: ??Patients with WBC >100,000 may have falsely elevated Potassium levels. ??For accurate Potassium quantification in these patients send serum separator tube (gold top) for subsequent determinations. ??Contact the Clinical Chemistry Laboratory if there are any questions. Chloride 98 98 - 107 mmol/L [facility] Carbon Dioxide 25 22 - 31 mmol/L [facility] Anion Gap 14 5 - 15 mmol/L [facility] Calcium 7.9(L) 8.5 - 10.5 mg/dL [facility] Est Glomerular Filtration Rate >60 >=60 [facility] Comment: This estimated GFR (eGFR) value [...] the following links into your internet browser. [email or web address] Blood specimen (specimen) 07/10/2016 4:00 AM EST 07/10/2016 4:08 AM EST Narrative Resulting Agency Comment Spec In Lab Lulu Cummings MD CHEMISTRY ORDERAB LES [facility] [place] [address] * Phenobarbital level (07/10/2016 4:00 AM EST) Phenobarbital 30.7 15.0 - 40.0 mg/L [facility] Comment: Therapeutic Range: ??15-40 mg/L Toxic: ??> 50 mg/L Blood specimen (specimen) 07/10/2016 4:00 AM EST 07/10/2016 4:08 AM EST Narrative Resulting Agency Comment Spec In Lab Trae Ramirez Jr., MD CHEMISTRY ORDERA BLES Performing Organization Address [facility] Co de Phone Number [facility] [place] [place] [address] * (ABNORMAL) Hepatic Function Panel (07/10/2016 4:00 AM EST) Pathologist [facility] Protein, Total 6.1 6.1 - 8.0 gm/dL [facility] Albumin 3.1(L) 3.2 - 5.2 gm/dL [facility] Aspartate Aminotransferase 34(H) 0 - 30 unit/L [facility] Alanine Aminotransferase 35(H) 0 - 30 unit/L [facility] Alkaline Phosphatase 153(H) 40 - 104 unit/L [facility] Bilirubin, Total 0.3 0.2 - 1.3 mg/dL [facility] Bilirubin, Direct 0.1 0.0 - 0.3 mg/dL [facility] Blood specimen (specimen) 07/10/2016 4:00 AM EST 07/10/2016 4:08 AM EST Narrative Resulting Agency Comment Spec In Lab Trae Ramirez Jr., MD CHEMISTRY ORDERA BLES Performing Organization Address City/[facility]/ZIP Co de Phone Number [facility] [place] [address] * Phosphorus (07/10/2016 4:00 AM EST) Phosphorus 3.0 2.5 - 4.5 mg/dL [facility] Comment:result rechecked-llu Blood specimen (specimen) 07/10/2016 4:00 AM EST 07/10/2016 4:08 AM EST Narrative Resulting Agency Comment Spec In Lab Trae Ramirez Jr., MD CHEMISTRY ORDERA DEMI Performing Organization Address [facility] Co de Phone Number [facility] [place] [address] * Magnesium (07/10/2016 4:00 AM EST) Magnesium 0.88 0.69 - 1.07 mmol/L [facility] Comment:result rechecked-llu Blood specimen (specimen) 07/10/2016 4:00 AM EST 07/10/2016 4:08 AM EST Narrative Resulting Agency Comment Spec In Lab Trae Ramirez Jr., MD CHEMISTRY ORDERA BLES Performing Organization Address [facility] Co de Phone Number [facility] [place] [address] * POCT Glucose (07/09/2016 11:55 PM EST) Glucose, POC 85 65 - 199 mg/dL [facility] Comment: Supplemental ranges: <140 mg/dL before meals <180 mg/dL all other times of the day Blood specimen (specimen) 07/09/2016 11:55 PM EST 07/09/2016 11:55 PM EST Trae Ramirez Jr., MD POINT OF CARE TE ST ORDERABLES Performing Organization Address [facility] Co de Phone Number [facility] [place] [address] * POCT Glucose (07/09/2016 9:08 PM EST) Glucose, POC 84 65 - 199 mg/dL [facility] Comment: Supplemental ranges: <140 mg/dL before meals <180 mg/dL all other times of the day Blood specimen (specimen) 07/09/2016 9:08 PM EST 07/09/2016 9:08 PM EST Trae Ramirez Jr., MD POINT OF CARE ST ORDERABLES Performing Organization Address [facility] Co de Phone Number [facility] [place] [address] * (ABNORMAL) POCT Glucose (07/09/2016 7:58 PM EST) Glucose, POC 62(L) 65 - 199 mg/dL [facility] Comment: Supplemental ranges: <140 mg/dL before meals <180 mg/dL all other times of the day Blood specimen (specimen) 07/09/2016 7:58 PM EST 07/09/2016 7:58 PM EST Trae Ramirez Jr., MD POINT OF CARE [facility] ORDERABLES Performing Organization Address [facility] Phone Number [facility] [place] [address] * XR Abdomen 1 view (Generic) (07/09/2016 6:03 PM EST) Anatomical Region Laterality Modality Abdomen N/A Digital Radiogra phy Impressions 07/09/2016 6:26 PM EST IMPRESSION: Enteric tube has been advanced since the prior exam, with the distal tip and side-port now within the region of proximal stomach overlying left upper abdomen. Narrative 07/09/2016 6:26 PM EST EXAMINATION: XR ABDOMEN 1 VIEW (GENERIC) CLINICAL HISTORY: OGT placement TECHNIQUE: Portable AP sitting up at 20 degrees at 1800 hours COMPARISON: 08/05/2016 FINDINGS: Since the previous exam, the enteric tube has been repositioned with the tip and side port now overlying the left upper abdomen in the region of the proximal stomach. ET tube projects 1.5 cm above the shya. Patchy bibasilar airspace opacities. Procedure Note Margarita Jacinto MD - 07/09/2016 EXAMINATION: XR ABDOMEN 1 VIEW (GENERIC) CLINICAL HISTORY: OGT placement TECHNIQUE: Portable AP sitting up at 20 degrees at 1800 hours COMPARISON: 08/05/2016 FINDINGS: Since the previous exam, the enteric tube has been repositioned with thetip and side port now overlying the left upper abdomen in the region of theproximal stomach. ET tube projects 1.5 cm above the shay. Patchy bibasilarairspace opacities. IMPRESSION IMPRESSION: Enteric tube has been advanced since the prior exam, with the distal tipand side-port now within the region of proximal stomach overlying left upper abdomen. Trae Ramirez Jr., MD IMG DX ORDERABLE S * POCT Glucose (07/09/2016 5:56 PM EST) Glucose, POC 86 65 - 199 mg/dL [facility] Comment: Supplemental ranges: <140 mg/dL before meals <180 mg/dL all other times of the day Blood specimen (specimen) 07/09/2016 5:56 PM EST 07/09/2016 5:56 PM EST Trae Ramirez Jr., MD POINT OF CARE TE ST ORDERABLES Performing Organization Address [facility] Co de Phone Number [facility] [place] [address] * POCT Glucose (07/09/2016 5:11 PM EST) Glucose, POC 67 65 - 199 mg/dL [facility] Comment: Supplemental ranges: <140 mg/dL before meals <180 mg/dL all other times of the day Blood specimen (specimen) 07/09/2016 5:11 PM EST 07/09/2016 5:11 PM EST Trae Ramirez Jr., MD POINT OF CARE TE ST ORDERABLES Performing Organization Address City/[facility]/ZIP Co de Phone Number [facility] [place] [address] * (ABNORMAL) Urinalysis with reflex Culture (07/09/2016 5:00 PM EST) Glucose, Urine Dipstick Negative Negative mg/dL [facility] Protein, Urine Dipstick 100(A) Negative mg/dL [facility] Bilirubin, Urine Dipstick Negative Negative mg/dL [facility] Comment: Clinical correlation required for positive Urine Bilirubin results as false positive may occur with some drugs and drug related products. If a false positive is suspected a serum total bilirubin should be considered if clinically indicated. Urobilinogen, Urine Dipstick Normal Normal mg/dL [facility] pH, Urn (dipstick) 8.0 5.0 - 8.0 [facility] Blood, Urine Dipstick Negative Negative mg/dL [facility] Ketone, Urine Dipstick Negative Negative mg/dL [facility] Nitrite, Urine Dipstick Negative Negative [facility] Leukocytes, Urine Dipstick Negative Negative [facility] Appearance, Urine Dipstick Clear Clear [facility] Specific Morrison Urine Automated 1.018 1.002 - 1.030 [facility] Color, Urine Dipstick Yellow Yellow [facility] RBC, Urine 1 0 - 4 /HPF [facility] WBC, Urine 1 0 - 5 /HPF [facility] Reflex to Culture No [facility] Urine specimen obtained via indwelling urinary catheter (specimen) 07/09/2016 5:00 PM EST 07/09/2016 5:33 PM EST Narrative Resulting Agency Comment Spec In Lab Trae Ramirez Jr., MD URINE ORDERABLES [facility] [place] [address] * Blood culture (07/09/2016 4:15 PM EST) Blood Culture No growth at 5 days. [facility] Blood specimen (specimen) 07/09/2016 4:15 PM EST 07/09/2016 5:09 PM EST Narrative Resulting Agency Comment Spec In Lab Trae Ramirez Jr., MD MICROBIOLOGY - B LOOD ORDERABLES Performing Organization Address City/[facility]/ZIP Co de Phone Number [facility] [place] [address] * Prothrombin Time (07/09/2016 3:57 PM EST) Prothrombin Time 14.2 12.0 - 15.0 sec [facility] Comment: An INR <2.0 indicates adequate procoagulant activity for hemostasis in most patients without underlying bleeding disorders, though the INR may not adequately reflect hemostatic capacity in patients with liver disease and synthetic impairment. The recommended target INR range for therapeutic anticoagulation is 2.0 ? 3.0 for most applications, though lower and higher ranges may be appropriate depending on clinical circumstances. International Normalization Ratio 1.1 0.9 - 1.1 [facility] Blood specimen (specimen) No Charge / Unknown 07/09/2016 3:57 PM EST 07/09/2016 3:57 PM EST Narrative Resulting Agency Comment Spec In Lab Fifi Park CORPORATE COMMUNICATIONS MANAGER HEMATOLOGY ORDERAB LES Performing Organization Address City/[facility]/ZIP Co de Phone Number [facility] [place] [address] * Blue Tube HOLD (07/09/2016 3:57 PM EST) Pathologist [facility] Blue Hold Sample in lab. [facility] Blood specimen (specimen) No Charge / Unknown 07/09/2016 3:57 PM EST 07/09/2016 3:57 PM EST Fifi Park CORPORATE COMMUNICATIONS MANAGER HEMATOLOGY ORDERAB LES Performing Organization Address City/[facility]/ZIP Co de Phone Number [facility] [place] [address] * Scan, Peripheral Blood (07/09/2016 3:45 PM EST) Plat estimate Normal [facility] RBC Morphology Normal [facility] Blood specimen (specimen) 07/09/2016 3:45 PM EST 07/09/2016 3:49 PM EST Narrative Resulting Agency Comment Spec In Lab Trae Ramirez Jr., MD HEMATOLOGY ORDER ROQUE Performing Organization Address [facility] Co de Phone Number [facility] [place] [address] * (ABNORMAL) Differential, Automated (07/09/2016 3:45 PM EST) Neutrophil % 82.0 % [facility] Neutrophil Absolute 8.22(H) 1.70 - 6.10 x10(3)/[facility] Lymph % 10.9 % [facility] Lymphocytes Abs 1.1 0.9 - 3.2 x10(3)/[facility] Monocyte % 6.6 % [facility] Monocyte Abs 0.7 0.3 - 0.9 x10(3)/[facility] Eos % 0.0 % [facility] Eosinophils Abs 0.0 0.0 - 0.4 x10(3)/[facility] Basophil % 0.1 % [facility] Baso Absolute 0.0 0.0 - 0.1 x10(3)/[facility] Immature Gran % 0.40 % [facility] Comment: Immature granulocytes(IG's)percentage and absolute count will include metamyelocytes, myelocytes, and promyelocytes. Blood smears from CBCs yielding IG's will be scanned manually for concordance. If this scan disagrees with the automated IG or if promyelocytes are noted, a manual differential will be performed. Immature Gran Absolute 0.04 0.00 - 0.04 x10(3)/[facility] Blood specimen (specimen) 07/09/2016 3:45 PM EST 07/09/2016 3:49 PM EST Narrative Resulting Agency Comment Spec In Lab Trae Ramirez Jr., MD HEMATOLOGY ORDER ROQUE Performing Organization Address City/[facility] Co de Phone Number [facility] [place] [address] * (ABNORMAL) Hemogram (07/09/2016 3:45 PM EST) Pathologist [facility] White Blood Cell 10.0(H) 4.0 - 9.5 x10(3)/[facility] Red Blood Cell 4.33 4.00 - 5.21 x10(6)/[facility] Hemoglobin 12.3 11.7 - 15.5 gm/dL [facility] Hematocrit 36.6 35.7 - 45.8 % [facility] Mean Cell Volume 84.5 82.6 - 94.4 fL [facility] Mean Cell Hemoglobin 28.4 27.1 - 32.0 pg [facility] Mean Cell Hemoglobin Concentration 33.6 31.7 - 35.0 gm/dL [facility] Platelet 173 145 - 357 x10(3)/[facility] RDW Standard Deviation 43.8 37.0 - 46.0 [facility] RDW coefficient of variation 14.1 11.5 - 14.1 % [facility] Mean Platelet Volume 9.8 7.6 - 12.9 [facility] NRBC% auto 0.0 % [facility] NRBC Absolute 0.000 0.000 - 0.000 x10(3)/[facility] Blood specimen (specimen) 07/09/2016 3:45 PM EST 07/09/2016 3:49 PM EST Narrative Resulting Agency Comment Spec In Lab Trae Ramirez Jr., MD HEMATOLOGY ORDER ROQUE [facility] [place] [address] * Electrolytes panel (07/09/2016 3:45 PM EST) Pathologist [facility] Sodium 138 135 - 145 mmol/L [facility] Potassium 3.9 3.5 - 5.0 mmol/L [facility] Comment: Please note: ??Patients with WBC >100,000 may have falsely elevated Potassium levels. ??For accurate Potassium quantification in these patients send serum separator tube (gold top) for subsequent determinations. ??Contact the Clinical Chemistry Laboratory if there are any questions. Chloride 98 98 - 107 mmol/L [facility] Carbon Dioxide 27 22 - 31 mmol/L [facility] Anion Gap 13 5 - 15 mmol/L [facility] Blood specimen (specimen) 07/09/2016 3:45 PM EST 07/09/2016 3:49 PM EST Narrative Resulting Agency Comment Spec In Lab Trae Ramirez Jr., MD CHEMISTRY ORDERA BLES Performing Organization Address [facility] Co de Phone Number [facility] [place] [place] [address] * Rapid Influenza A/B and RSV PCR (07/09/2016 3:29 PM EST) [facility] Influenza A PCR Not Detected Not Detected [facility] Influenza B PCR Not Detected Not Detected [facility] RSV PCR Not Detected Not Detected [facility] Resp PCR Source [employer] Swab [facility] Nasopharyngeal swab (specimen) 07/09/2016 3:29 PM EST 07/09/2016 3:50 PM EST Narrative Resulting Agency Comment Spec In Lab Trae Ramirez Jr., MD MICROBIOLOGY - G ENERAL ORDERABLES Performing Organization Address [facility] Co de Phone Number [facility] [place] [address] * Rapid Respiratory Virus Antigen Panel Nasopharyngeal Swab (07/09/2016 3:29 PM EST) [facility] Rapid Virus Antigen Stain DFA Negative for Adenovirus Antigen DFA Negative for Human Metapneumovirus Antigen DFA Negative for Influenza Virus Type A Antigen DFA Negative for Influenza Virus Type B Antigen DFA Negative for Parainfluenza Virus Type 1 Antigen DFA Negative for Parainfluenza Virus Type 2 Antigen DFA Negative for Parainfluenza Virus Type 3 Antigen DFA Negative for Respiratory Syncytial Virus Antigen [facility] Nasopharyngeal swab (specimen) 07/09/2016 3:29 PM EST 07/09/2016 3:49 PM EST Narrative Resulting Agency Comment Spec In Lab Trae Ramirez Jr., MD MICROBIOLOGY - G ENERAL ORDERABLES Performing Organization Address [facility] de Phone Number [facility] [place] [address] * EKG 12 Lead (07/09/2016 3:23 PM EST) Ventricular rate 88 BPM MUSE SYSTEM Atrial Rate 88 BPM MUSE SYSTEM P-R Interval 120 ms MUSE SYSTEM QRS Duration 84 ms MUSE SYSTEM Q-T Interval 358 ms MUSE SYSTEM QTC Calculated (Bezet) 433 ms MUSE SYSTEM Calculated P Friendship 60 degrees MUSE SYSTEM Calculated R Friendship 65 degrees MUSE SYSTEM Calculated T Friendship 61 degrees MUSE SYSTEM INTERPRETATION Normal sinus rhythm Unremarkable morphology No previous ECGs available Confirmed by MD Ayah, Pete Nesbitt ([id number]) on 07/10/2016 9:10:42 AM MUSE SYSTEM 07/09/2016 3:23 PM EST 07/10/2016 9:10 AM EST Trae Ramirez Jr., MD ECG ORDERABLES Performing Organization Address [facility] Phone Number MUSE SYSTEM * Beta Hydroxybutyrate (07/09/2016 3:20 PM EST) Beta-hydroxybu turate <0.10 0.00 - 0.30 mmol/L [facility] Comment: Reference range: ??0.00-0.30 mmo1/L, based on an overnight fast. ??Children may be higher. Blood specimen (specimen) Venous Draw / Unknown 07/09/2016 3:20 PM EST 07/09/2016 3:32 PM EST Narrative Resulting Agency Comment Spec In Lab Trae Ramirez Jr., MD CHEMISTRY ORDERA BLES Performing Organization Address [facility] Co de Phone Number [facility] [place] [address] * (ABNORMAL) Hepatic Function Panel (07/09/2016 3:20 PM EST) Protein, Total 5.5(L) 6.1 - 8.0 gm/dL [facility] Albumin 3.2 3.2 - 5.2 gm/dL [facility] Aspartate Aminotransferase 63(H) 0 - 30 unit/L [facility] Alanine Aminotransferase 40(H) 0 - 30 unit/L [facility] Alkaline Phosphatase 159(H) 40 - 104 unit/L [facility] Bilirubin, Total 0.6 0.2 - 1.3 mg/dL [facility] Bilirubin, Direct 0.4(H) 0.0 - 0.3 mg/dL [facility] Blood specimen (specimen) Venous Draw / Unknown 07/09/2016 3:20 PM EST 07/09/2016 3:32 PM EST Narrative Resulting Agency Comment Spec In Lab Trae Ramirez Jr., MD CHEMISTRY ORDERA BLES Performing Organization Address [facility] de Phone Number [facility] [place] [address] * (ABNORMAL) Phosphorus (07/09/2016 3:20 PM EST) Pathologist [facility] Phosphorus 1.4(Critic al) 2.5 - 4.5 mg/dL [facility] Comment:Called by: CATHY, Read back by: EDITH DELGADO, Date/Time:07/09/16 16:15. Blood specimen (specimen) 07/09/2016 3:20 PM EST 07/09/2016 3:32 PM EST Narrative Resulting Agency Comment Spec In Lab Trae Ramirez Jr., MD CHEMISTRY ORDERA BLES Performing Organization Address [facility] Co de Phone Number [facility] [place] [address] * (ABNORMAL) Magnesium (07/09/2016 3:20 PM EST) Magnesium 0.65(L) 0.69 - 1.07 mmol/L [facility] Blood specimen (specimen) 07/09/2016 3:20 PM EST 07/09/2016 3:32 PM EST Narrative Resulting Agency Comment Spec In Lab Trae Ramirez Jr., MD CHEMISTRY ORDERA BLES [facility] [address] [place] [address] * (ABNORMAL) Basic Metabolic Panel (non-fasting) (07/09/2016 3:20 PM EST) Glucose 90 65 - 199 mg/dL [facility] Comment:Diabetes: >=200 mg/d L plus symptoms Blood Urea Nitrogen 9 8 - 18 mg/dL [facility] Creatinine 0.49(L) 0.70 - 1.20 mg/dL [facility] Comment: Please note that the pediatric reference intervals supplied above were not validated at [facility]. Results from pediatric patients should be interpreted in conjunction to the patient's age, height and muscle mass. Sodium 137 135 - 145 mmol/L [facility] Potassium 3.9 3.5 - 5.0 mmol/L [facility] Comment: Please note: ??Patients with WBC >100,000 may have falsely elevated Potassium levels. ??For accurate Potassium quantification in these patients send serum separator tube (gold top) for subsequent determinations. ??Contact the Clinical Chemistry Laboratory if there are any questions. Chloride 100 98 - 107 mmol/L [facility] Carbon Dioxide 24 22 - 31 mmol/L [facility] Anion Gap 13 5 - 15 mmol/L [facility] Calcium 7.8(L) 8.5 - 10.5 mg/dL [facility] Est Glomerular Filtration Rate >60 >=60 [facility] Comment: This estimated GFR (eGFR) value [...] the following links into your internet browser. [email or web address] Blood specimen (specimen) 07/09/2016 3:20 PM EST 07/09/2016 3:32 PM EST Narrative Resulting Agency Comment Spec In Lab Trae Ramirez Jr., MD CHEMISTRY ORDERA BLES [facility] [place] [address] * (ABNORMAL) BLOOD GAS 2 ARTERIAL (07/09/2016 3:11 PM EST) pH, Arterial 7.41 7.35 - 7.45 [facility] PCO2, Arterial 44 35 - 45 mmHg [facility] PO2, Arterial 146(H) 85 - 104 mmHg [facility] Bicarbonate, Arterial 27.3(H) 20.0 - 26.0 mmol/L [facility] Base Excess, Arterial 2.7 -3.0 - 3.0 mmol/L [facility] Hgb Blood Gas 12.7 11.7 - 15.5 gm/dL [facility] Oxyhemoglobin, Arterial 97.5(H) 94.0 - 97.0 % [facility] Carboxyhemoglob in, Arterial 0.3 % [facility] Comment: Nonsmokers: 0.5-1.5% COHB Smokers: Variable, but usually less than 10% Toxic: 20-30% COHB Lethal: Greater than 60% COHB Methemoglobin, Arterial 0.7 <=1.5 % [facility] Na Whole Blood 137 135 - 145 mmol/L [facility] K Whole Blood 3.6 3.5 - 5.0 mmol/L [facility] Comment: Please note: Patients with WBC >100,000 may have falsely elevated Potassium levels. Contact the Clinical Chemistry Laboratory if there are any questions. ICa Whole Blood 1.09(L) 1.15 - 1.33 mmol/L [facility] Comment: Note: ??Total bilirubin higher than 20 mg/dL may lead to falsely low ionized calcium. CL Whole Blood 102 98 - 107 mmol/L [facility] Gluc Whole Bld 89 65 - 199 mg/dL [facility] Comment:Diabetes: >=200 mg/d L plus symptoms. Lactate WB 2.4(H) 0.5 - 2.2 mmol/L [facility] FIO2 Art 50 % [facility] PF Ratio Art 292 [facility] Blood specimen (specimen) 07/09/2016 3:11 PM EST 07/09/2016 3:11 PM EST Trae Ramirez Jr., MD POINT OF CARE TE ST ORDERABLES [facility] [place] [address] * XR Chest PA or AP 1 view (07/09/2016 2:57 PM EST) Anatomical Region Laterality Modality Chest N/A Digital Radiogra phy Impressions 07/09/2016 4:18 PM EST 1. ??Prominent RIGHT perihilar lung markings may represent either fluid overload or crowding of vasculature.. 2. ??First sidehole of NG tube above the diaphragm. The position of the NG tube was [communicated] to and understood by Fifi Park NP at 4pm on date of dictation. I have personally reviewed the image(s) and the residents interpretation and agree with the findings, Gemma Guajardo at 07/09/2016 4:18 PM Narrative 07/09/2016 4:18 PM EST EXAMINATION: XR CHEST PA OR AP 1 VIEW CLINICAL HISTORY: OSH ETT placement TECHNIQUE: Single AP portable radiograph chest at 15 upright performed on July 09, 2013 at 1440 hours COMPARISON: Single AP portable supine radiograph of the chest dated July 09, 2016 performed at 1057 hours [facility]. FINDINGS: ET tube tip projects approximately 2.3 cm above the shay. An enteric tube tip extends below the GE junction with side port above the diaphragm. Left-sided vagal nerve stimulator with pulse generator projecting over the left upper chest. Low lung volumes. Patchy RIGHT perihilar opacities and prominent vascular markings. No pleural effusions or pneumothoraces. Stable cardiac silhouette. Procedure Note Gemma Guajardo MD - 07/09/2016 EXAMINATION: XR CHEST PA OR AP 1 VIEW CLINICAL HISTORY: OSH ETT placement TECHNIQUE: Single AP portable radiograph chest at 15 upright performedon July 09, 2013 at 1440 hours COMPARISON: Single AP portable supine radiograph of the chest datedDece2015 performed at 1057 hours [facility]. FINDINGS: ET tube tip projects approximately 2.3 cm above the shay. An enterictube tip extends below the GE junction with side port above the diaphragm.Left-sided vagal nerve stimulator with pulse generator projecting over the leftupper chest. Low lung volumes. Patchy RIGHT perihilar opacities and prominentvascular markings. No pleural effusions or pneumothoraces. Stable cardiacsilhouette. IMPRESSION 1. Prominent RIGHT perihilar lung markings may represent either fluidoverload or crowding of vasculature.. 2. First sidehole of NG tube above the diaphragm. The position of the NG tube was [communicated] to and understood byFifi Park NP at 4pm on date of dictation. I have personally reviewed the image(s) and the residents interpretationand agree with the findings, Gemma Guajardo at 07/09/2016 4:18 PM Trae Ramirez Jr., MD IMG DX ORDERABLE S * POCT Glucose (07/09/2016 2:48 PM EST) Glucose, POC 79 65 - 199 mg/dL [facility] Comment: Supplemental ranges: <140 mg/dL before meals <180 mg/dL all other times of the day Blood specimen (specimen) 07/09/2016 2:48 PM EST 07/09/2016 2:48 PM EST Trae Ramirez Jr., MD POINT OF CARE ST ORDERABLES Performing Organization Address [facility] de Phone Number [facility] [place] [phone] * (ABNORMAL) Lower Respiratory Culture Tracheal Aspirate (07/09/2016 2:42 PM EST) Lower Respiratory Culture Many Streptococcus pneumoniae Many Haemophilus influenzae : Beta-lactamase result predicts organism is susceptible to ampicillin and penicillin. Further susceptibility testing will only be performed upon request. (A) [facility] Gram Stain Many White Blood Cells seen Many White Blood Cells seen No squamous epithelial cells seen Few Gram Positive lancet-shaped Diplococci seen (A) [facility] Organism Streptococcus pneumoniae(A) [facility] Organism Gram Positive lancet-shaped Diplococci(A) [facility] Specimen from trachea obtained by aspiration (specimen) 07/09/2016 2:42 PM EST 07/09/2016 3:38 PM EST Narrative Resulting Agency Comment Spec In Lab Organism Antibiotic Method Susceptibility Streptococcus pneumoniae Azithromycin MICROSCAN METHOD Sensitive Streptococcus pneumoniae Ceftriaxone (Meningitis) MICR OSCAN METHOD Sensitive Streptococcus pneumoniae Ceftriaxone (Nonmeningitis) M ICROSCAN METHOD Sensitive Streptococcus pneumoniae Cefuroxime MICROSCAN METHOD Sensitive Streptococcus pneumoniae Levofloxacin MICROSCAN METHOD Sensitive Streptococcus pneumoniae Meropenem MICROSCAN METHOD Sensitive Streptococcus pneumoniae Penicillin (Meningitis) MICRO SCAN METHOD Sensitive Streptococcus pneumoniae Penicillin (Nonmeningitis) CT CROSCAN METHOD Sensitive Streptococcus pneumoniae Tetracycline MICROSCAN METHOD Intermediate Streptococcus pneumoniae Trimethoprim/Sulfa MICROSCAN METHOD Sensitive Streptococcus pneumoniae Vancomycin MICROSCAN METHOD Sensitive Trae Ramirez Jr., MD MICROBIOLOGY - G ENERAL ORDERABLES Performing Organization Address [facility] Co de Phone Number [facility] [place] [address] documented in this encounter Visit Diagnoses Diagnosis 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 , Routine Given 07/12/2016 12:08 PM EST 650 mg Given 07/11/2016 2:22 PM EST 650 mg Given 07/10/2016 4:32 PM EST 650 mg albuterol (PROVENTIL HFA;VENTOLIN HFA;PROAIR) 90 mcg/actuation inhaler 2 puff 2 puff, Inhalation, EVERY 2 HOURS PRN, Starting on Mon07/10/16 at 0923, Until Mon07/13/16 at 1516, Wheezing, Routine Given 07/10/2016 10:23 AM EST 2 puffs atorvastatin (LIPITOR) tablet 40 mg 40 mg, Oral, DAILY, First dose on Mon07/09/16 at 1500, Until Discontinued, Routine Given 07/13/2016 9:01 AM EST 40 mg Given 07/12/2016 9:31 AM EST 40 mg Given 07/11/2016 9:09 AM EST 40 mg cefTRIAXone (ROCEPHIN) 1g in dextrose 5% 50mL 1 g, Intravenous, EVERY 24 HOURS, 5 doses, First dose on Mon07/10/16 at 0300, Last dose on Mon07/14/16 at 0300, Administer over 30 Minutes, Indication for (Active or Suspected): Pneumonia (Community) Given 07/12/2016 3:57 AM EST 1 g 100 mL/hr Given 07/11/2016 3:40 AM EST 1 g 100 mL/hr Given 07/10/2016 3:22 AM EST 1 g 100 mL/hr cefTRIAXone (ROCEPHIN) 1g in dextrose 5% 50mL 1 g, Intravenous, EVERY 24 HOURS, 5 doses, First dose (after last modification) on Mon07/13/16 at 0300, Last dose on Mon07/17/16 at 0530, Administer over 30 Minutes, Indication for (Active or Suspected): Pneumonia (Community) Given 07/13/2016 5:30 AM EST 1 g 100 mL/hr chlorhexidine (PERIDEX) 0.12 % oral solution 15 mL 15 mL, Oral, EVERY 12 HOURS SCHEDULED (2 times per day), First dose on 07/09/16 at 2100, Until Discontinued, To brush teeth, Routine Given 07/10/2016 8:22 AM EST 15 mLs Given 07/09/2016 9:22 PM EST 15 mLs cloBAZam (ONFI) tablet 15 mg 15 mg, Oral, NIGHTLY, First dose on 07/09/16 at 2100, Until Discontinued, Routine Given 07/12/2016 8:37 PM EST 15 mg Given 07/11/2016 9:34 PM EST 15 mg Given 07/10/2016 9:27 PM EST 15 mg dexamethasone (DECADRON) injection 10 mg 10 mg, Intravenous, ONCE, 1 dose, On 07/10/16 at 1100 Given 07/10/2016 10:39 AM EST 10 mg dexamethasone (DECADRON) injection 6 mg 6 mg, Intravenous, EVERY 6 HOURS SCHEDULED, 6 doses, First dose on Mon07/10/16 at 1345, Last dose on Mon07/11/16 at 1800 Given 07/10/2016 1:36 PM EST 6 mg dextrose 5% and sodium chloride 0.45% infusion 50 mL/hr, Intravenous, CONTINUOUS, Starting on 07/09/16 at 2115, Until Mon07/11/16 at 0651 Rate/Dose Verify 07/10/2016 8:00 PM EST 50 mL/hr 50 mL/hr New Bag 07/10/2016 2:22 PM EST 50 mL/hr 50 mL/hr Rate/Dose Verify 07/10/2016 4:00 AM EST 50 mL/hr 50 mL/h r dextrose 50% injection 25-50 mL 25-50 mL (12.5-25 g), Intravenous, EVERY 1 HOUR PRN, Starting on 07/09/16 at 1438, Until 07/12/16 at 0810, Low blood sugar, For BG 50-70: 120 mL Juice or Regular (not diet) soda OR 12.5 gram (25 mL) Dextrose 50% IV OR, if no IV access, 1 mg Glucagon IM. Recheck BG in 30 minutes. May repeat juice, dextrose or glucagon once per episode For BG less than 50: 240 mL Juice or Regular (not diet) soda OR 25 grams (50 mL) Dextrose 50% IV OR, if no IV access, 1 mg Glucagon IM. Recheck BG in 30 minutes. May repeat juice, dextrose, or glucagon once per episode. To avoid extravasation, push Dextrose 50% SLOWLY (3 mL over 1 minute) in a patent, running IV, preferably a central line. For persistent hypoglycemia, consider longer-acting treatment for the duration of the active insulin., Routine Given 07/09/2016 8:02 PM EST 25 mLs Given 07/09/2016 5:22 PM EST 25 mLs fentaNYL (PF) 50 mcg/mL injection 1 dose, Starting on 07/09/16 at 1735, Until 07/09/16 at 1740, JAYNEHERMILA CARLSON: cabinet override fentaNYL 50mcg/mL injection 50 mcg, Intravenous, EVERY 1 HOUR PRN, Starting on 07/09/16 at 1728, Until 07/10/16 at 2142, Pain, Routine Given 07/09/2016 5:40 PM EST 50 mcg guaiFENesin (ROBITUSSIN) 20 mg/mL liquid 10 mL 10 mL (200 mg), Oral, EVERY 6 HOURS, First dose on 07/09/16 at 1800, Until Discontinued, Maximum daily dose is 2400 mg, Routine Given 07/13/2016 9:00 AM EST 10 mLs Given 07/13/2016 1:22 AM EST 10 mLs Given 07/12/2016 8:41 PM EST 10 mLs heparin (porcine) subcutaneous injection 5,000 Units 5,000 Units, Subcutaneous, EVERY 12 HOURS SCHEDULED (2 times per day), First dose on 07/09/16 at 2100, Until Discontinued, Routine Given 07/13/2016 9:01 AM EST 5,000 Units Given 07/12/2016 8:39 PM EST 5,000 Units Given 07/12/2016 9:35 AM EST 5,000 Units insulin lispro (humaLOG) VIAL injection 1-4 Units 1-4 Units, Subcutaneous, EVERY 4 HOURS SCHEDULED, First dose on 07/09/16 at 1600, Until Discontinued, CORRECTION BOLUS Sensitive to insulin lean patient or total daily dose of all insulin needed to achieve glycemic control less than 30 units BG 140 - 160 Give 1 unit BG 161 - 200 Give 2 units BG 201 - 240 Give 3 units BG greater than 240, give 4 units and recheck BG in 2 hours. If BG remains greater than 240, repeat 4 units (no more than three times) & call for new basal insulin orders. If less than 240 after two hours, give no insulin and resume prior schedule., Routine Given 07/10/2016 4:18 PM EST 1 Units ipratropium (ATROVENT HFA) inhaler 2 puff 2 puff, Inhalation, EVERY 6 HOURS PRN, Starting on 07/10/16 at 0923, Until Mon07/13/16 at 1516, Wheezing, Routine Given 07/10/2016 10:23 AM EST 2 puffs LORazepam (ATIVAN) injection 2 mg 2 mg, Intravenous, EVERY 4 HOURS PRN, Starting on 07/09/16 at 1444, Until Mon07/13/16 at 1516, Seizures, Routine magnesium sulfate 2 g in sterile water 50 mL 2 g, Intravenous, ONCE, 1 dose, On 07/09/16 at 1645, Administer over 120 Minutes Given 07/09/2016 5:32 PM EST 2 g 25 mL/hr melatonin tablet 3 mg 3 mg, Oral, NIGHTLY, First dose on 07/09/16 at 2100, Until Discontinued, Routine Given 07/12/2016 8:39 PM EST 3 mg Given 07/11/2016 9:35 PM EST 3 mg Given 07/10/2016 9:13 PM EST 3 mg OXcarbazepine (TRILEPTAL) tablet 600 mg 600 mg, Oral, 3 TIMES DAILY, First dose on 07/09/16 at 1600, Until Discontinued, Routine Given 07/13/2016 9:01 AM EST 600 mg Given 07/12/2016 8:38 PM EST 600 mg Given 07/12/2016 3:28 PM EST 600 mg pantoprazole (PROTONIX) injection 40 mg 40 mg, Intravenous, DAILY, First dose on 07/09/16 at 1500, Until Discontinued, Reconstitute with 10 mL of normal saline to a concentration of 4 mg/mL and infuse slowly over 2 minutes. , Routine Given 07/10/2016 8:09 AM EST 40 mg Given 07/09/2016 5:13 PM EST 40 mg pantoprazole (PROTONIX) tablet 40 mg 40 mg, Oral, DAILY, First dose on 07/09/16 at 1500, Until Discontinued, DO NOT CRUSH OR OPEN If unable to take PO, may give IV Given 07/13/2016 9:01 AM EST 40 mg Given 07/12/2016 9:33 AM EST 40 mg Given 07/11/2016 9:06 AM EST 40 mg PHENobarbital (LUMINAL) tablet 121.5 mg 121.5 mg (rounded from 120 mg), Oral, NIGHTLY, First dose on 07/09/16 at 2100, Until Discontinued, Routine Given 07/12/2016 8:39 PM EST 121.5 mg Given 07/11/2016 9:34 PM EST 121.5 mg Given 07/10/2016 9:13 PM EST 121.5 mg potassium chloride (KAYCIEL) 20 mEq/15 mL oral solution 20-60 mEq 20-60 mEq, Per NG tube, EVERY 4 HOURS PRN, Starting on 07/09/16 at 2050, Until 07/11/16 at 1235, hypokalemia, For serum potassium: 3.9 - 4 mMol/L = 20 mEq. 3.6 - 3.8 mMol/L = 40 mEq. 3.3 - 3.5 mMol/L = 40 mEq. 2.8 - 3.2 mMol/L = 60 mEq. Less than 2.8 = Call physician, then begin potassium chloride replacement via central or peripheral IV route. See instructions for Potassium Protocol in online policies., Routine Given 07/10/2016 6:06 AM EST 40 mEq potassium phosphate 15 mMol in sodium chloride 0.9% 250 mL 15 mmol, Intravenous, ONCE, 1 dose, On 07/09/16 at 1645, Administer over 4 Hours, Administer over 4-6 hours Given 07/09/2016 6:19 PM EST 15 mmol 62.5 mL/hr propofol (DIPRIVAN) infusion 0-50 mcg/kg/min ? 67.8 kg (0-20.34 mL/hr, rounded to 0-20.3 mL/hr), Intravenous, CONTINUOUS, Starting on 07/09/16 at 1500, Until 07/10/16 at 2142, Titrate to sedation level of RASS Goal (-)1 to 0 . Start at 20 mcg/kg/min, adjust rate by 10 mcg/kg/min every 3 minutes. Once stable, reassess patient every 30 minutes. Rate not to exceed 50 mcg/kg/minute. Change rate only after assessing and documenting RASS. Reassess sedation scores within 30 minutes after every rate change. If under sedated, increase rate by 10 mcg/kg/min. If over sedated, hold sedative until target RASS (-)1 to 0 achieved and then restart at 50% of previous rate. Call warehouse helper if goal not achieved at maximum rate., Routine New Bag 07/10/2016 8:41 AM EST 20 mcg/kg/min 8.1 mL/hr Rate/Dose Verify 07/10/2016 4:00 AM EST 20 mcg/kg/min 8.1 mL/hr Rate/Dose Verify 07/10/2016 12:00 AM EST 20 mcg/kg/min 8.1 mL/hr QUEtiapine (SEROquel) tablet 25 mg 25 mg, Oral, NIGHTLY, First dose on 07/09/16 at 2100, Until Discontinued, Routine Given 07/12/2016 8:38 PM EST 25 mg Given 07/11/2016 9:33 PM EST 25 mg Given 07/10/2016 9:12 PM EST 25 mg racepinephrine (VAPONEFRIN) 2.25 % nebulizer solution 0.5 mL 0.5 mL, Nebulization, EVERY 4 HOURS PRN, Starting on 07/10/16 at 1030, Until 07/11/16 at 1235, Wheezing, Routine Given 07/10/2016 10:30 AM EST 0.5 mLs Given 07/10/2016 10:23 AM EST 0.5 mLs racepinephrine (VAPONEFRIN) 2.25 % nebulizer solution 1 dose, Starting on 07/10/16 at 1020, Until 07/10/16 at 1023, SWETHA DASH: cabinet override rufinamide (BANZEL) tablet 1,200 mg 1,200 mg, Oral, NIGHTLY, First dose on 07/09/16 at 2100, Until Discontinued, Routine Given 07/12/2016 8:37 PM EST 1,200 mg Given 07/11/2016 9:35 PM EST 1,200 mg Given 07/10/2016 9:13 PM EST 1,200 mg rufinamide (BANZEL) tablet 800 mg 800 mg, Oral, 2 TIMES DAILY, First dose (after last modification) on 07/10/16 at 0900, Until Discontinued, Routine Given 07/13/2016 9:01 AM EST 800 mg Given 07/12/2016 3:27 PM EST 800 mg Given 07/12/2016 9:32 AM EST 800 mg sertraline (ZOLOFT) tablet 50 mg 50 mg, Oral, DAILY, First dose on 07/09/16 at 1500, Until Discontinued, Routine Given 07/13/2016 9:01 AM EST 50 mg Given 07/12/2016 9:31 AM EST 50 mg Given 07/11/2016 9:08 AM EST 50 mg sodium chloride 0.9 % flush 5 mL 5 mL, Intravenous, EVERY 12 HOURS, First dose on 07/09/16 at 1500, Until Discontinued, Routine Given 07/13/2016 5:35 AM EST 5 mLs Given 07/12/2016 3:28 PM EST 5 mLs Given 07/12/2016 3:56 AM EST 5 mLs sodium chloride 0.9% 500 mL IV bolus Intravenous, ONCE, 1 dose, On 07/09/16 at 1730 Continued Syringe/Cartridge 07/09/2016 5:11 PM EST sodium chloride 0.9% infusion 10 mL/hr, Intravenous, CONTINUOUS PRN, Starting on 07/09/16 at 1438, Until 07/11/16 at 1235 Rate/Dose Verify 07/10/2016 8:00 PM EST 10 mL/hr 10 mL/hr Rate/Dose Verify 07/09/2016 4:00 PM EST 10 mL/hr 10 mL/h r New Bag 07/09/2016 2:58 PM EST 10 mL/hr 10 mL/hr documented in this encounter Active and Recently Administered Medications Times are shown in EST. Scheduled Medication Order 07/11/2016 07/12/2016 07/13/2016 atorvastatin (LIPITOR) tablet 40 mg 40 mg, Oral, DAILY, First dose on 07/09/16 at 1500, Until Discontinued, Routine 09 (Given - Provider: Noé Maier RN) 0931 (Given - Provider: Jeff Delong RN) 0901 (Given - Provider: Lisa Metcalf RN) cefTRIAXone (ROCEPHIN) 1g in dextrose 5% 50mL (CANCELED) 1 g, Intravenous, EVERY 24 HOURS, 5 doses, First dose on 07/10/16 at 0300, Last dose on Chel 07/14/16 at 0300, Administer over 30 Minutes, Indication for (Active or Suspected): Pneumonia (Community) 0340 (Given - Provider: Fifi Lindquist RN) 0357 (Given - Provider: Danya Rao, PATT) cefTRIAXone (ROCEPHIN) 1g in dextrose 5% 50mL 1 g, Intravenous, EVERY 24 HOURS, 5 doses, First dose (after last modification) on 07/13/16 at 0300, Last dose on Mon07/17/16 at 0530, Administer over 30 Minutes, Indication for (Active or Suspected): Pneumonia (Community) 0530 (Given - Provider: Hope Garcia, PATT) cloBAZam (ONFI) tablet 15 mg 15 mg, Oral, NIGHTLY, First dose on 07/09/16 at 2100, Until Discontinued, Routine 2133 (Given - Provider: Danya Rao RN) 2036 (Given - Provider: Rebeca Cruz, PATT) guaiFENesin (ROBITUSSIN) 20 mg/mL liquid 10 mL 10 mL (200 mg), Oral, EVERY 6 HOURS, First dose on 07/09/16 at 1800, Until Discontinued, Maximum daily dose is 2400 mg, Routine 0000 (Not Given - Provider: Fifi Lindquist RN - Reason: Patient/family refused)0600 (Not Given - Provider: Fifi Lindquist RN - Reason: Patient Unable)1258 (Given - Provider: Tan Alvarenga RN)1854 (Given - Provider: Jeff Delong, PATT) 0000 (Hold - Provider: Danya Rao RN - Reason: See comment)0934 (Given - Provider: Jeff Delong RN)1526 (Given - Provider: Jeff Delong, PATT)2041 (Given - Provider: Rebeca Cruz, PATT) 0122 (Given - Provider: Hope Garcia, PATT)0900 (Given - Provider: Lisa Metcalf RN) heparin (porcine) subcutaneous injection 5,000 Units 5,000 Units, Subcutaneous, EVERY 12 HOURS SCHEDULED (2 times per day), First dose on 07/09/16 at 2100, Until Discontinued, Routine 09 (Given - Provider: Noé Maier RN)213 (Given - Provider: Danya Rao RN) 0935 (Given - Provider: Jeff Delong RN)2038 (Given - Provider: Rebeca Cruz, PATT) 0901 (Given - Provider: Lisa Metcalf RN) melatonin tablet 3 mg 3 mg, Oral, NIGHTLY, First dose on 07/09/16 at 2100, Until Discontinued, Routine 2134 (Given - Provider: Danya Rao, PATT) 2038 (Given - Provider: Rebeca Cruz RN) OXcarbazepine (TRILEPTAL) tablet 600 mg 600 mg, Oral, 3 TIMES DAILY, First dose on 07/09/16 at 1600, Until Discontinued, Routine 0910 (Given - Provider: Noé Maier RN)185 (Given - Provider: Jeff Delong RN)2134 (Given - Provider: Danya Rao RN) 0932 (Given - Provider: Jeff Delong RN)152 (Given - Provider: Jeff Delong RN)2037 (Given - Provider: Rebeca Cruz RN) 0901 (Given - Provider: Lisa Metcalf RN) pantoprazole (PROTONIX) injection 40 mg(Linked Group 1) 40 mg, Intravenous, DAILY, First dose on 07/09/16 at 1500, Until Discontinued, Reconstitute with 10 mL of normal saline to a concentration of 4 mg/mL and infuse slowly over 2 minutes. , Routine 0906 (See Alternative - Provider: Noé Maier RN) 0933 (See Alternative - Provider: Jeff Delong RN) 0901 (See Alternative - Provider: Lisa Metcalf RN) pantoprazole (PROTONIX) tablet 40 mg(Linked Group 1) 40 mg, Oral, DAILY, First dose on 07/09/16 at 1500, Until Discontinued, DO NOT CRUSH OR OPEN If unable to take PO, may give IV 0906 (Given - Provider: Noé Maier RN) 0933 (Given - Provider: Jeff Delong RN) 0901 (Given - Provider: Lisa Metcalf RN) PHENobarbital (LUMINAL) tablet 121.5 mg 121.5 mg (rounded from 120 mg), Oral, NIGHTLY, First dose on 07/09/16 at 2100, Until Discontinued, Routine 2133 (Given - Provider: Danya Rao, PATT) 2038 (Given - Provider: Rebeca Cruz, PATT) QUEtiapine (SEROquel) tablet 25 mg 25 mg, Oral, NIGHTLY, First dose on 07/09/16 at 2100, Until Discontinued, Routine 2132 (Given - Provider: Danya Rao RN) 2037 (Given - Provider: Rebeca Cruz, PATT) rufinamide (BANZEL) tablet 1,200 mg 1,200 mg, Oral, NIGHTLY, First dose on 07/09/16 at 2100, Until Discontinued, Routine 2134 (Given - Provider: Danya Rao RN) 2036 (Given - Provider: Rebeca Cruz RN) rufinamide (BANZEL) tablet 800 mg 800 mg, Oral, 2 TIMES DAILY, First dose (after last modification) on 07/10/16 at 0900, Until Discontinued, Routine 0911 (Given - Provider: Noé Maier RN)1853 (Given - Provider: Jeff Delong RN) 0932 (Given - Provider: Jeff Delong RN)1527 (Given - Provider: Jeff Delong RN) 0901 (Given - Provider: Lisa Metcalf, PATT) sertraline (ZOLOFT) tablet 50 mg 50 mg, Oral, DAILY, First dose on 07/09/16 at 1500, Until Discontinued, Routine 0908 (Given - Provider: Noé Maier RN) 0931 (Given - Provider: Jeff Delong RN) 0901 (Given - Provider: Lisa Metcalf RN) sodium chloride 0.9 % flush 5 mL 5 mL, Intravenous, EVERY 12 HOURS, First dose on 07/09/16 at 1500, Until Discontinued, Routine 0342 (Given - Provider: Fifi Lindquist RN)1854 (Given - Provider: Jeff Delong RN) 0356 (Given - Provider: Danya Rao RN)1528 (Given - Provider: Jeff Delong RN) 0535 (Given - Provider: Hope Garcia RN) PRN Medication Order 07/11/2016 07/12/2016 07/13/2016 acetaminophen (TYLENOL) 650 mg/20.3 mL oral liquid 650 mg 650 mg, Oral, EVERY 4 HOURS PRN, Starting on 07/09/16 at 1444, Until Mon07/13/16 at 1516, Fever, Maximum dose of acetaminophen is 4000 mg from all sources in 24 hours. , Routine 1422 (Given - Provider: Tan Alvarenga RN) 1208 (Given - Provider: Jeff Delong RN) albuterol (PROVENTIL HFA;VENTOLIN HFA;PROAIR) 90 mcg/actuation inhaler 2 puff 2 puff, Inhalation, EVERY 2 HOURS PRN, Starting on 07/10/16 at 0923, Until Mon07/13/16 at 1516, Wheezing, Routine ipratropium (ATROVENT HFA) inhaler 2 puff 2 puff, Inhalation, EVERY 6 HOURS PRN, Starting on 07/10/16 at 0923, Until Mon07/13/16 at 1516, Wheezing, Routine lidocaine (XYLOCAINE) 10 mg/mL (1 %) injection 3 mg 3 mg (0.3 mL), Subcutaneous, ONCE PRN, 1 dose, Starting on 07/09/16 at 1438, Until Mon07/13/16 at 1516, for discomfort with PIV insertion, Routine LORazepam (ATIVAN) injection 2 mg 2 mg, Intravenous, EVERY 4 HOURS PRN, Starting on 07/09/16 at 1444, Until Mon07/13/16 at 1516, Seizures, Routine sodium chloride 0.9 % flush 5-20 mL 5-20 mL, Intravenous, EVERY 1 MIN PRN, Starting on 07/09/16 at 1438, Until Mon07/13/16 at 1516, flush, Flush pertains to all indwelling lines. Flush per protocol found in the job aid using the link provided on this medication record., Routine Linked Groups Order Group 1: pantoprazole (PROTONIX) tablet 40 mgJump to med 40 mg, Oral, DAILY, First dose on 07/09/16 at 1500, Until Discontinued, DO NOT CRUSH OR OPEN If unable to take PO, may give IV Or pantoprazole (PROTONIX) injection 40 mgJump to med 40 mg, Intravenous, DAILY, First dose on 07/09/16 at 1500, Until Discontinued, Reconstitute with 10 mL of normal saline to a concentration of 4 mg/mL and infuse slowly over 2 minutes. , Routine documented in this encounter Care Teams Yeast Supervisor Relationship Specialty Start Date End Date Luis Manuel Blanca MD [address] [place] [address] PCP - General Family Medicine 06/24/16 documented as of this encounter
--- OUTSIDE RECORDS SUMMARY | 2024-06-28 22:03 | XMS_ITS | Encounter Summary ---
Author Organization [facility] [place] [address] Care Team Providers Care Furniture Technician Name Role Phone Cee Escobar MD Primary Care Provider [phone] Reason for Visit * Reason Onset Date Comments Other 05/23/2016 Encounter Details Date Type Department Care Team (Late st Contact Info) Description 05/23/2016 Telephone [place] [id number] Terri Hsu APRN [facility] [place] [address] Other Social History Tobacco Use Types Packs/Day [...] Telephone Encounter - Risa Carrizales RN - 05/24/2016 3:45 PM EDT Call placed to chip Lawson caregiver, Plan: Reviewed Terri Hsu APRN recommendations. Lulu agreeable to having pt increase the zoloft to 75mg as of today and calling in one week with update. New rx for the increased dose of zoloft sent to pharmacy * Telephone Encounter - Risa Carrizales RN - 05/24/2016 3:34 PM EDT Per Terri Hsu APRN 1) 75mg of zoloft now 2) call in week with update 3) if she is well, we will keep her there, if not, will try 100mg. 4) ??After that, if no improvement will try seroquel. ??. * Telephone Encounter - Risa Carrizales RN - 05/24/2016 2:04 PM EDT * Telephone Encounter - Mita Win RN - 05/23/2016 12:10 PM EDT Pt's caregiver Lulu phoned and left message on triage line. Terri Hsu recently increased pt's zoloft. Lulu states that they have noticed a very slight improvement. She still is talking constantly but is not screaming and is not as angry. She is however up all night and about every 3rd - 4th night she will sleep she thinks from just being worn out. Lulu stated Terri had suggested maybe starting another medication. She is not sure if Terri wants to increase the zoloft more or startanother medication. I attempted to phone caregiver lulu. Message left on voice mail that message will be sent to Terri for her to review when she returns tomorrow and if further questions/concerns she may call [phone]. Plan: I will forward to Terri Hsu APRN for review. documented in this encounter Plan of Treatment Upcoming Encounters Date Type Department Care Team (Late st Contact Info) Description 08/06/2024 11:00 AM EST Office [place] [phone] Sarah Serra APRN [facility] [address] documented as of this encounter Visit Diagnoses Not on filedocumented in this encounter Care Teams Furniture Technician Relationship Specialty Start Date End Date Cee Escobar MD [address] [place] [id number] PCP - General 06/29/10 06/23/16 documented as of this encounter
--- OUTSIDE RECORDS SUMMARY | 2024-06-28 22:03 | XMS_ITS | Encounter Summary ---
Author Organization [facility] [place] [address] Care Team Providers Care Watermaster Name Role Phone Cee Escobar MD Primary Care Provider [phone] Reason for Visit * Reason Onset Date Comments Medication Refill 05/06/2016 Encounter Details Date Type Department Care Team (Late st Contact Info) Description 05/06/2016 [place] [address] Tiff Oglesby MD [facility] [place] [address] Social History Tobacco Use Types Packs/Day Years [...] 11:00 AM EST [place] [phone] Sarah Serra APRN [facility] [place] [address] documented as of this encounter Visit Diagnoses Not on filedocumented in this encounter Care Teams Watermaster Relationship Specialty Start Date End Date Cee Escobar MD [facility] [address] [place] [address] PCP - General 06/29/10 06/23/16 documented as of this encounter
--- OUTSIDE RECORDS SUMMARY | 2024-06-28 22:03 | XMS_ITS | Encounter Summary ---
Author Organization [facility] Address [facility] [place] [address] Care Team Providers Care Manager Trade Name Role Phone Luis Manuel Blanca MD Primary Care Provider [phone] Encounter Details Date Type Department Care Team (Latest Contact Info) Description 07/09/2016 - 07/09/2016 12:[address] [facility] Hospital Encounter Radiology Library at [facility] [place] [phone] Arnel Son Jr., MD [facility] [place] [address] Pain Discharge Disposition: Home Social History Tobacco Use [...] If still not effective please call neurologist concrete rod buster. No more than 4mg daily. 45 tablet [...] If still not effective please call neurologist concrete rod buster. 1 kit 3 01/06/2016 11/20/2018 furosemide (LASIX) [...] 11:00 AM EST [place] [address] Sarah Serra APRN [facility] [place] [address] documented as of this encounter Procedures Procedure Name Priority Date/Time Associated Diagnosis Comments FILM LIBRARY STORAGE ONLY CT HEAD Routine 07/09/2016 12:00 AM EST Pain documented in this encounter Results * Film Library- Storage Only CT Head (07/09/2016 12:00 AM EST) Narrative [facility] - 07/09/2016 1:19 PM EST This exam is for storage only and is auto-finalizing. Arnel Son Jr., MD IMG FILM LIBRARY ORDERABLES Performing Organization Address City/State/[facility] Co de Phone Number [place], [place] documented in this encounter Visit Diagnoses Diagnosis Pain Generalized pain documented in this encounter Care Teams Manager Trade Relationship Specialty Start Date End Date Luis Manuel Blanca MD [address] [place] [address] PCP - General Family Medicine 06/24/16 documented as of this encounter
--- OUTSIDE RECORDS SUMMARY | 2024-06-28 22:03 | XMS_ITS | Encounter Summary ---
Author Organization [facility] Address [facility] [place] [address] Care Team Providers Care Heart Specialist Name Role Phone Cee Escobar MD Primary Care Provider [phone] Encounter Details Date Type Department Care Team (Latest Contact Info) Description 05/09/2016 1:55 PM EDT - 05/09/2016 11:59 PM EDT Hospital Encounter XRay at [address] [place] [address] Christos Davis MD [facility] [place] [address] Gait abnormality Discharge Disposition: Home Social History Tobacco Use [...] tablet Take 40 mg by mouth daily. sertraline (ZOLOFT) 50 mg Tablet Take 1 tablet by mouth daily. 30 tablet 3 05/06/2016 05/24/2016 clobazam 20 mg Tablet Take 2 tablets by mouth nightly. 60 tablet 5 04/20/2016 06/14/2016 LORazepam (ATIVAN) 1 mg TabletIndications:Epi lepsy seizure, generalized, convulsive Take 1-2 tablets at onset of seizure symptoms, if ineffective after 30 minutes may repeat dose. If still not effective please call neurologist carton repairer. No more than 4mg daily. 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 Reduce by 1 tablet per week starting 03/25/16 270 tablet 5 03/11/2016 11/20/2018 PHENobarbital (LUMINAL) 60 mg Tablet Take 2 tablets by mouth nightly. 360 tablet 1 03/11/2016 05/15/2018 OXcarbazepine (TRILEPTAL) 300 mg Tablet Take by mouth. Take 2 tablets every am, 1 tablet every afternoon, and 2 tablets every evening. Brand name medically necessary. 07/06/2016 diaZEPam (DIASTAT ACUDIAL) 12.5-15-17.5-[address] 15 mg rectally as needed (1 syringe for cluster of seizures.). if ineffective after 30 minutes may repeat dose. If still not effective please call neurologist carton repairer. 1 kit 3 01/06/2016 11/20/2018 furosemide (LASIX) [...] 11:00 AM EST Office [place] [address] Sarah Serra, HANDLE MAKER [facility] [place] [address] documented as of this encounter Procedures Procedure Name Priority Date/Time Associated Diagnosis Comments XR KNEE STANDING ALIGNMENT Routine 05/09/2016 4:57 PM EDT Gait abnormality documented in this encounter Results * XR Knee Standing Alignment (Generic) (05/09/2016 4:57 PM EDT) Anatomical Region Laterality Modality N/A Digital Radiogra phy Impressions 05/09/2016 5:22 PM EDT Marked valgus alignment of both knees. Marked pelvic tilt to the right side. Limited visualization of both hips with findings concerning for underlying bilateral hip dysplasia. Suggest dedicated radiographs of both hips. Limited visualization of both knees due to difficulties with imaging exposure. Narrative 05/09/2016 5:22 PM EDT EXAMINATION: XR KNEE STANDING ALIGNMENT (GENERIC) CLINICAL HISTORY: KNEE PAIN TECHNIQUE: Separate images of the pelvis, knees and feet were acquired in the AP projection with the patient standing. These images were stitched together to form a composite image of the pelvis and legs allowing for evaluation of lower extremity alignment in the weight bearing position. ? COMPARISON: Outside radiographs from January 21, 2016 of the right knee. FINDINGS: Evaluation of this single frontal projection standing alignment image is limited due to incomplete visualization of the left ankle and apparent difficulties with the exposure, possibly due to the patient's body habitus. Moderate to severe lateral displacement of the axis of gravitation against the center of the knee joint on both sides. Marked pelvic tilt to the right side with the right iliac crest projecting 3 cm below the left iliac crest. Limited visualization of both hips consistent with sequela of underlying bilateral hip dysplasia. On both sides the lateral coverage of the femoral head is decreased, the acetabular roofs are shallow, and there is associated remodeling. Evaluation of both knees is quite limited on this exam. Procedure Note Britney Jensen MD - 05/09/2016 EXAMINATION: XR KNEE STANDING ALIGNMENT (GENERIC) CLINICAL HISTORY: KNEE PAIN TECHNIQUE: Separate images of the pelvis, knees and feet were acquired inthe AP projection with the patient standing. These images were stitched togetherto form a composite image of the pelvis and legs allowing for evaluation oflower extremity alignment in the weight bearing position. COMPARISON: Outside radiographs from January 21, 2016 of the right knee. FINDINGS: Evaluation of this single frontal projection standing alignment image islimited due to incomplete visualization of the left ankle and apparentdifficulties with the exposure, possibly due to the patient's body habitus. Moderate to severe lateral displacement of the axis of gravitation againstthe center of the knee joint on both sides. Marked pelvic tilt to the rightside with the right iliac crest projecting 3 cm below the left iliac crest.Limited visualization of both hips consistent with sequela of underlying bilateralhip dysplasia. On both sides the lateral coverage of the femoral head isdecreased, the acetabular roofs are shallow, and there is associated remodeling. Evaluation of both knees is quite limited on this exam. IMPRESSION Marked valgus alignment of both knees. Marked pelvic tilt to the right side. Limited visualization of both hips with findings concerning forunderlying bilateral hip dysplasia. Suggest dedicated radiographs of both hips. Limited visualization of both knees due to difficulties with imagingexposure. Christos Davis MD IMG DX ORDERABLES documented in this encounter Visit Diagnoses Diagnosis Gait abnormality Abnormality of gait documented in this encounter Care Teams Heart Specialist Relationship Specialty Start Date End Date Cee Escobar MD [address] [place] [id number] PCP - General 06/29/10 06/23/16 documented as of this encounter
--- OUTSIDE RECORDS SUMMARY | 2024-06-28 22:03 | XMS_ITS | Encounter Summary ---
[place] [address] Care Team Providers Care Detective Automobile Section Name Role Phone Cee Escobar MD Primary Care Provider [phone] Encounter Details Date Type Department Care Team (Late st Contact Info) Description 05/03/2016 [place] [address] Terri Hsu APRN [facility] [place] [address] Social History Tobacco Use Types Packs/Day Years [...] Telephone Encounter - Mita Win RN - 05/06/2016 1:53 PM EDT I phoned and spoke with Lulu. Per Terri vera instructed to increase zoloft to 50 mg at bedtime. Lulu instructed to call clinic back if no improvement or worsening symptoms/condition. Plan: as above and new rx generated for provider review and signature. Lulu agrees with plan and verbalizes understanding. * Telephone Encounter - Terri Hsu APRN - 05/06/2016 12:04 PM EDT We can try increasing zoloft to 50mg at bedtime. If this does not work, we will need to think abouta small dose of seroquel. She can also try a benadryl at bedtime first. * Telephone Encounter - Mita Win RN - 05/03/2016 10:39 AM EDT Last visit 03/11/16 Next visit not yet scheduled Caregiver Lulu phoned. She states that pt has not been sleeping well and she will scream and yell for 4-5 hours a time and cry. She will be up at midnight and 3 am etc. She states that this has been going on for quite a while but increasing gradually over the last 3-4 weeks. She is not sure if it is related to the onfi or not. Lulu states she did research it and stated those are possible side effects from the onfi from her research. She states however that pt's seizures have been much better and she has only had 1 seizure in the last month. She states that her PCP started her on zoloft on 04/20/16 and she is on 25 mg daily. She is not sure if this could be an issue too. She stated that she is hoping Terri can review for suggestions as pt not sleeping at night and screaming and yelling all the time is getting difficult to manage. Current Outpatient Prescriptions on File Prior to Visit Medication Sig Dispense Refill ??? clobazam 20 mg Tablet Take 2 tablets by mouth nightly. 60 tablet 5 ??? LORazepam (ATIVAN) 1 mg Tablet Take 1-2 tablets at onset of seizure symptoms, if ineffective after 30 minutes may repeat dose. If still not effective please call neurologist juvenile corrections officer. No more [id number] daily. 45 tablet 3 ??? rufinamide (BANZEL) [...] If still not effective please call neurologist juvenile corrections officer. 1 kit 3 ??? furosemide (LASIX) 20 [...] facility-administered medications on file prior to visit. Pt is also on zoloft 25 mg daily Plan: I will forward to Terri Hsu APRN for further review and recommendation. documented in this encounter Plan of Treatment Upcoming Encounters Date Type Department Care Team (Late st Contact Info) Description 08/06/2024 11:00 AM EST Office [place] [address] Sarah Serra APRN [facility] [place] [address] documented as of this encounter Visit Diagnoses Not on filedocumented in this encounter Care Teams Detective Automobile Section Relationship Specialty Start Date End Date Cee Escobar MD [address] [place] [address] PCP - General 06/29/10 06/23/16 documented as of this encounter
--- OUTSIDE RECORDS SUMMARY | 2024-06-28 22:03 | XMS_ITS | Encounter Summary ---
Author Organization [facility] Address [facility] [place] [address] Care Team Providers Care Sound Recording Technician Name Role Phone Cee Escobar MD Primary Care Provider [phone] Encounter Details Date Type Department Care Team (Latest Contact Info) Description 01/21/2016 - 01/21/2016 11:59 PM EDT Hospital Encounter Radiology Library at [facility] [place] [address] Christos Davis MD [facility] [place] [address] Pain Discharge Disposition: Home Social History Tobacco [...] daily. OXcarbazepine (TRILEPTAL) 300 mg Tablet Take by mouth. Take 2 tablets every am, 1 tablet every afternoon, and 2 tablets every evening. Brand name medically necessary. 07/06/2016 diaZEPam (DIASTAT ACUDIAL) 12.5-15-17.5-[address] 15 mg rectally as needed (1 syringe for cluster of seizures.). if ineffective after 30 minutes may repeat dose. If still not effective please call neurologist control and recovery combat rescue. 1 kit 3 01/06/2016 11/20/2018 LORazepam (ATIVAN) 1 mg TabletIndications:Epi lepsy seizure, generalized, convulsive Take 1-2 tablets at onset of seizure symptoms, if ineffective after 30 minutes may repeat dose. If still not effective please call neurologist control and recovery combat rescue. No more than 4mg daily. 45 tablet 3 12/01/2015 03/11/2016 furosemide (LASIX) 20 mg Tablet Take 20 mg by mouth daily. 07/19/2022 clobazam (ONFI) 10 mg Tablet Take 1 tablet by mouth daily. 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 270 tablet 5 09/22/2015 03/11/2016 PHENobarbital (LUMINAL) 60 mg Tablet Take 2 tablets by mouth nightly. 120 tablet 3 11/24/2014 03/11/2016 midazolam, PF, (VERSED) 5 mg/mL Solution 1 mL by Nasal route daily as needed (give 1 ml via atomizer for cluster of seizures). 2 mL 3 08/27/2014 08/31/2018 documented as of this encounter Plan of Treatment Upcoming Encounters Date Type Department Care Team (Late st Contact Info) Description 08/06/2024 11:00 AM EST Office [place] [address] Sarah Serra, SEAMLESS TUBE MILL OPERATOR [facility] [place] [address] documented as of this encounter Procedures Procedure Name Priority Date/Time Associated Diagnosis Comments FILM LIBRARY STORAGE ONLY DX KNEE Routine 01/21/2016 12:00 AM EDT Pain documented in this encounter Results * Film Library- Storage only DX Knee (01/21/2016 12:00 AM EDT) Narrative [facility] - 04/03/2016 7:59 AM EDT This exam is for storage only and is auto-finalizing. Christos Davis MD IMG FILM LIBRARY OR DERABLES Performing Organization Address City/State/[facility] Co de Phone Number [place], [place] documented in this encounter Visit Diagnoses Diagnosis Pain Generalized pain documented in this encounter Care Teams Sound Recording Technician Relationship Specialty Start Date End Date Cee Escobar MD [address] [place] [address] PCP - General 06/29/10 06/23/16 documented as of this encounter
--- OUTSIDE RECORDS SUMMARY | 2024-06-28 22:03 | XMS_ITS | Encounter Summary ---
Author Organization [facility] [place] [address] Care Team Providers Care Relay Tester Helper Name Role Phone Luis Manuel Blanca MD Primary Care Provider [phone] Reason for Visit * Reason Onset Date Comments Other 07/06/2016 Encounter Details Date Type Department Care Team (Late st Contact Info) Description 07/06/2016 Telephone [place] [phone] Terri Hsu APRN [facility] [place] [address] Other Social History Tobacco Use Types Packs/Day [...] Telephone Encounter - Mita Win RN - 07/07/2016 10:04 AM EST Per Terri Hsu APRN: I called her back and we elected to go back up to 600mg TID of trileptal and increase the seroquelto 25mg at bedtime. ??Will see how this goes. I sent prescriptions to the pharmacy. Plan: as above. No further action necessary at this time. * Telephone Encounter - Mita Win RN - 07/06/2016 11:41 AM EST Last visit 06/24/16 Next visit 08/19/16 Caregiver Lulu phoned with update regarding Cinthya. She states that pt was seen 06/24. On 06/24 Terri reduced onfi 06/24 and instructed to decrease the zoloft. On 06/25 caregiver decreased zoloft to 50 mg daily has not stopped it as instructed yet. She wasn't sure what to do because of how pt isacting. She states she has been doing better stating she is alert and not drooling which is a vast improvement but she has gone back to screaming, spitting, and is up all night and talking. She also states her seizures are acting up again and she usually on has her seizures around 4 pm in the afternoon ( Lulu also states she also has a very bad cold right now). Lulu states that they are her typical seizures ( lasting 45 - 60 seconds - no more than a minute. Lulu states she is not having flurries and comes right out of them). Lulu states that she has had 5 seizures since reducing the onfi but 3 seizures are recent and she has a cold. Lulu is really not sure what to do at this point. She is not sure if Cinthya should go back up on the noon trileptal. She also questions if we can increase the seroquel as she is not sleeping at night ( takes 12.5 mg at night). She is not sure if they should stop or continue zoloft. She was hesitant to stop it. Lulu states she is justnot sure what to do but she states we need to sleep. Current Outpatient Prescriptions on File Prior to Visit Medication Sig Dispense Refill ??? melatonin 3 mg Tablet Take 3 mg by mouth nightly. ??? cloBAZam (ONFI) 10 mg Tablet Take 1.5 tablets by mouth nightly. 45 tablet 5 ??? sertraline (ZOLOFT) 100 mg Tablet Take 1 tablet by mouth daily. (Patient taking differently: Take 50 mg by mouth daily.) 90 tablet 0 ??? QUEtiapine (SEROQUEL) 25 mg Tablet Take 0.5 tablets by mouth nightly. 30 tablet 0 ??? LORazepam (ATIVAN) 1 mg Tablet Take 1-2 tablets at onset of seizure symptoms, if ineffective after 30 minutes may repeat dose. If still not effective please call neurologist accreditation coordinator. No more bigu5le daily. 45 tablet 3 ??? rufinamide (BANZEL) [...] If still not effective please call neurologist accreditation coordinator. 1 kit 3 ??? furosemide (LASIX) 20 [...] Hsu APRN for further review and recommendation. Lulu aware we will call her back once input is available. Lulu agrees with plan and verbalizes understanding. documented in this encounter Plan of Treatment Upcoming Encounters Date Type Department Care Team (Late st Contact Info) Description 08/06/2024 11:00 AM EST Office [place] [address] Sarah Serra APRN [facility] [place] [address] documented as of this encounter Visit Diagnoses Not on filedocumented in this encounter Care Teams Relay Tester Helper Relationship Specialty Start Date End Date Luis Manuel Blanca MD [address] [place] [address] PCP - General Family Medicine 06/24/16 documented as of this encounter
--- OUTSIDE RECORDS SUMMARY | 2024-06-28 22:03 | XMS_ITS | Encounter Summary ---
[place] [address] Care Team Providers Care Rehabilitation Services Aide Name Role Phone Cee Escobar MD Primary Care Provider [phone] Encounter Details Date Type Department Care Team (Late st Contact Info) Description 05/25/2016 [place] [address] Mita Vo RN Social History Tobacco Use Types Packs/Day [...] Miscellaneous Notes * Telephone Encounter - Mita Vo RN - 05/25/2016 1:01 PM EDT Call from Lulu reporting that she inadvertently given pt two of the Sertraline 50mg tablets daily for total dose of Sertraline 100mg daily since probably 05/06 when she had picked up the prescription. Lulu states that she doesn't think it has helped that much. Pt is not as angry, is not throwingthings but pt is still not sleeping. Lulu reports that pt is talking all the time at night as well as during the day, not yelling any longer. Pt does sleep better every 2-3 nights because Lulu thinks she is wearing herself out. Discussed with Terri Hsu APRN, will have pt continue on Sertraline 100mg daily and add Seroquel 12.5mg at HS Rx prepared for faxing to pharmacy, Lulu notified of plan. Lulu instructed to call Neurology team early next week with update. Lulu aware that pt may experience some sedation documented in this encounter Plan of Treatment Upcoming Encounters Date Type Department Care Team (Late st Contact Info) Description 08/06/2024 11:00 AM EST [place] [address] Sarah Serra APRN [facility] [place] [address] documented as of this encounter Visit Diagnoses Not on filedocumented in this encounter Care Teams Rehabilitation Services Aide Relationship Specialty Start Date End Date Cee Escobar MD [address] [place] [address] PCP - General 06/29/10 06/23/16 documented as of this encounter
--- OUTSIDE RECORDS SUMMARY | 2024-06-28 22:03 | XMS_ITS | Encounter Summary ---
Author Organization [place] [address] Care Team Providers Care Eye Physician Name Role Phone Cee Escobar MD Primary Care Provider [phone] Reason for Visit * Reason Onset Date Comments Other 06/13/2016 Encounter Details Date Type Department Care Team (Late st Contact Info) Description 06/13/2016 [place] [phone] Terri Hsu APRN [facility] [place] [address] Other Social History Tobacco Use Types Packs/Day [...] Telephone Encounter - Mita Win RN - 06/14/2016 9:43 AM EST Per Terri Hsu FLORAL CLERK: Lets start tapering by 1/2 tablet per week and we will see how she feels. I phoned and spoke with caregiver Lulu and reviewed/instructed above per Terri. Pt on onfi 20 mg tablets taking 2 tablets nightly. Pt should now take 1.5 tablets nightly for one week, then 1 tablet nightly for one week, then 1/2 tablet nightly for one week then stop. Lulu instructed to callback if any changes/concerns. I have sent message to church secretary also to call Lulu to get pt scheduled for visit this month. Lulu states she will try to call herself as well. Plan: as above and Lulu will call if any further changes/concerns. * Telephone Encounter - Mita Win RN - 06/13/2016 1:32 PM EST Last visit 03/11/16 ?? Next visit not yet scheduled ?? Caregiver Lulu phoned and left message on triage line. She states that she thinks maybe Cinthya should come off of the onfi. She states her seizures have been better on it but she overall is not doing good. Pt phoned back. She states that she feels since Cinthya has been on the onfi she is doing worse. She states that her seizures are better but everything else is worse. Pt is on onfi 20 mg tablets taking2 tablets daily. She really feels that pt should come off the onfi. She can't even feed herself. Per last office visit pt should follow up in 3 months which would be June. Plan; I will forward to Terri sHu APRN for review and forward to church secretary to call caregiver schedule f/u next available. Lulu caregiver can be contacted at [phone]. Current Outpatient Prescriptions on File Prior to Visit Medication Sig Dispense Refill ??? sertraline (ZOLOFT) 100 mg Tablet Take 1 tablet by mouth daily. 90 tablet 0 ??? QUEtiapine (SEROQUEL) 25 mg Tablet Take 0.5 tablets by mouth nightly. 30 tablet 0 ??? clobazam 20 mg Tablet Take 2 tablets by mouth nightly. 60 tablet 5 ??? LORazepam (ATIVAN) 1 mg Tablet Take 1-2 tablets at onset of seizure symptoms, if ineffective after 30 minutes may repeat dose. If still not effective please call neurologist television presenter. No more [id number] daily. 45 tablet 3 ??? rufinamide (BANZEL) [...] If still not effective please call neurologist television presenter. 1 kit 3 ??? furosemide (LASIX) 20 [...] facility-administered medications on file prior to visit. * Telephone Encounter - Mita Win RN - 06/13/2016 9:55 AM EST Last visit 03/11/16 Next visit not yet scheduled Caregiver Lulu phoned and left message on triage line. She states that she thinks maybe Cinthya should come off of the onfi. She states her seizures have been better on it but she overall is not doing good. I attempted to phone Lulu back. There was no answer message left on named voice mail to call back [phone]. Plan: I will forward to Terri Hsu APRN. documented in this encounter Plan of Treatment Upcoming Encounters Date Type Department Care Team (Late st Contact Info) Description 08/06/2024 11:00 AM EST [place] [address] Sarah Serra APRN [facility] [place] [address] documented as of this encounter Visit Diagnoses Not on filedocumented in this encounter Care Teams Eye Physician Relationship Specialty Start Date End Date Cee Escobar MD [address] [place] [address] PCP - General 06/29/10 06/23/16 documented as of this encounter
--- OUTSIDE RECORDS SUMMARY | 2024-06-28 22:03 | XMS_ITS | Encounter Summary ---
[facility] [place] [address] Care Team Providers Care Balloon Design Printer Name Role Phone Cee Escobar MD Primary Care Provider [phone] Reason for Visit * Reason Onset Date Comments Other 02/15/2016 Encounter Details Date Type Department Care Team (Late st Contact Info) Description 02/15/2016 [place] [phone] Terri Hsu APRN [facility] [place] [address] Other Social History Tobacco Use Types Packs/Day [...] Telephone Encounter - Mita Win RN - 02/15/2016 3:49 PM EDT Last visit 11/11/15 Next visit 02/17/16 - caregiver wants to reschedule Caregiver Lulu sanchezd. She states that pt is doing very well on the increased dose of onfi ( 20mg daily). She had two seizures yesterday but lulu said she is still over all better. She wouldlike to cancel and reschedule Monday's office visit to give pt a little more time on the onfi. I attempted to phone Lulu. There was no answer. Detailed message left stating I would forward message to Terri Hsu and that she needs to call [phone] to reschedule the appointment. Plan: as above and I will forward to Terri Hsu ANTIQUE DEALER. documented in this encounter Plan of Treatment Upcoming Encounters Date Type Department Care Team (Late st Contact Info) Description 08/06/2024 11:00 AM EST Office [place] [address] Sarah Serra APRN [facility] [place] [address] documented as of this encounter Visit Diagnoses Not on filedocumented in this encounter Care Teams Balloon Design Printer Relationship Specialty Start Date End Date Cee Escobar MD [address] [place] [address] PCP - General 06/29/10 06/23/16 documented as of this encounter
--- OUTSIDE RECORDS SUMMARY | 2024-06-28 22:03 | XMS_ITS | Encounter Summary ---
Author Organization [facility] Address [facility] [place] [address] Care Team Providers Care Supervisor Ride Assembly Name Role Phone Cee Escobar MD Primary Care Provider [phone] Reason for Visit * Reason Comments Right Knee Pain * Second Surgical Opinion (Routine) - Closed Specialty Diagnoses / Procedures Referred By Contac t Referred To Contact Orthopaedics Diagnoses RIGHT KNEE PAIN/ INSTABILITY 2ND OPIN S/P TIBIAL PLAT. FX. Procedures Landry Vega MD [address] [place] [address] [facility] [address] [place] [id number] Referral ID Status Reason Start Date Expiration Date V isits Requested Visits Authorized [id number] Closed Second Opinion 03/28/2016 03/28/2017 1 1 Encounter Details Date Type Department Care Team (Late st Contact Info) Description 05/09/2016 2:00 PM EDT Office [place] [address] Christos Davis MD [facility] ORTHOPAEDIC [place] [address] Gait abnormality Social History Tobacco Use Types Packs/Day Years [...] Sign Reading Time Taken Comments Blood Pressure 107/77 05/09/2016 3:33 PM EDT Pulse 75 05/09/2016 3:33 PM EDT Temperature - - Respiratory Rate - - Oxygen Saturation - - Inhaled Oxygen Concentration - - Weight 72.6 kg (160 lb) 05/09/2016 3:33 PM EDT v erbal Height 142.2 cm (4' 8) 05/09/2016 3:33 PM EDT v erbal Body Mass Index 35.87 05/09/2016 3:33 PM EDT documented in this encounter Progress Notes * Josue Min PA - 05/09/2016 2:00 PM EDT Subjective: Cinthya Brown is a 55 y.o. female who presents with a knee injury involving the right knee. Onset was sudden, related to Post tibial plateau fracture. Mechanism of injury: unknown. Inciting event: none known. Patient stopped ambulating a couple of days; followed bu cries which was investigated with an x-ray revealing tibial plateau fracture, with valgus knee. Patient's child care also stated that she has instability and had a joint injection 01/12/16 with benefit. Current symptoms include: pain located medially on the right knee. Pain is aggravated by any weightbearing. Patient has had no prior knee problems. Evaluation to date: plain films: improved from prior studies. Treatment to date: avoidance of offending activity. Patient's medications, allergies, past medical, surgical, social and family histories were reviewedand updated as appropriate. Review of Systems Pertinent items are noted in HPI. Objective: BP 107/77 Pulse 75 Ht (!) 142.2 cm (4' 8) Comment: verbal Wt 72.6 kg (160 lb) Comment: verbal BMI 35.87 kg/m2 Right knee: not assessed. Left knee: not assesses. patient in wheel chair X-ray left knee: Tibial plateau fracture with little interval change from previous xray. Severe osteoarthritis with Valgus remodeling noted on the left knee Assessment: Left Severe ostheoarthritis Plan: Natural history and expected course discussed. Questions answered. We recommend joint injection as needed to manage her symptoms of OA BARRY Harp * Christos Davis MD - 05/09/2016 2:00 PM EDT Images from the original note were not included. Department of Orthopaedics Division of Adult Joint Reconstructive Surgery May 09, 2016 I had the pleasure of evaluating Cinthya Brown in clinic in conjunction with one of my associate providers. 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 She presents today with her caregiver and most the history is obtained from the caregiver. The caregiver states that she, last year in roughly June, stopped ambulating for no reason. About a month or so later, she fell and suffered a tibial plateau fracture of the right knee. This was treated conservatively. She then started groaning and developing grimacing around movement in the knee. She underwent an intraarticular injection several months ago. Since she had the injection, she has no longer been grimacing and has no real pain with motion of the knee. I can move her knee today in clinic without significant discomfort. She has radiographs which show a clearly arthritic right knee as well as standing alignment films which show profound valgus deformity of the knee. At this point, I had a lengthy discussion with her caregiver. At this point, the patient does not seem to be in any significant discomfort and is not ambulatory. At this point, I did not recommend any surgical intervention. Certainly, if the patient starts to develop pain or signs and symptoms of pain, i.e. her grimacing, I do think a repeat injection is reasonable. All questions were answered. Christos Davis MD, MS Chief, Division of Adult Reconstructive Fabric DesignerMason Tender [facility] Orthopaedics Department of Orthopaedics [facility] [phone] [email or web address] documented in this encounter Plan of Treatment Upcoming Encounters Date Type Department Care Team (Late st Contact Info) Description 08/06/2024 11:00 AM EST Office [place] [address] Sarah Serra APRN [facility] [place] [address] documented as of this encounter Results * XR Knee Standing [...] Diagnoses Diagnosis Gait abnormality Abnormality of gait Gait abnormality Abnormality of gait documented in this encounter Care Teams Supervisor Ride Assembly Relationship Specialty Start Date End Date Cee Escobar MD [address] [place] [address] PCP - General 06/29/10 06/23/16 documented as of this encounter
--- OUTSIDE RECORDS SUMMARY | 2024-06-28 22:03 | XMS_ITS | Encounter Summary ---
Author Organization [facility] [address] Care Team Providers Care Broom Builder Name Role Phone Cee Escobar MD Primary Care Provider [phone] Reason for Visit * Reason Onset Date Comments Medication Refill 04/20/2016 Encounter Details Date Type Department Care Team (Late st Contact Info) Description 04/20/2016 [place] [address] Terri Hsu APRN [facility] [place] [address] Social History Tobacco Use Types Packs/Day Years [...] Telephone Encounter - Mita Win RN - 04/21/2016 10:08 AM EDT onfi rx written 04/20/16 approved by Terri Hsu phoned in directly to pharmacist at [facility] on 04/21/16 at 10:09 am for onfi 20 mg tablets take 2 tablets nightly dispense # 60 tablets with5 refills. Pharmacist stated she would take care of this today. documented in this encounter Plan of Treatment Upcoming Encounters Date Type Department Care Team (Late st Contact Info) Description 08/06/2024 11:00 AM EST [place] [address] Sarah Serra APRN [facility] [place] [address] documented as of this encounter Visit Diagnoses Not on filedocumented in this encounter Care Teams Broom Builder Relationship Specialty Start Date End Date Cee Escobar MD [address] [place] [address] PCP - General 06/29/10 06/23/16 documented as of this encounter
--- OUTSIDE RECORDS SUMMARY | 2024-06-28 22:03 | XMS_ITS | Encounter Summary ---
Author Organization [facility] [place] [address] Care Team Providers Care Business Info Consultant Name Role Phone Luis Manuel Blanca MD Primary Care Provider [phone] Encounter Details Date Type Department Care Team (Late st Contact Info) Description 06/24/2016 11:30 AM EST [place] [address] Terri Hsu APRN [facility] 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; Hallucinations; Mood disorder Social History Tobacco Use Types Packs/Day Years [...] Sign Reading Time Taken Comments Blood Pressure 113/72 06/24/2016 11:12 AM EST Pulse 82 06/24/2016 11:12 AM EST Temperature - - Respiratory Rate - - Oxygen Saturation - - Inhaled Oxygen Concentration - - Weight 68 kg (150 lb) 06/24/2016 11:12 AM EST Height 147.3 cm (4' 10) 06/24/2016 11:12 AM EST reported Body Mass Index 31.35 06/24/2016 11:12 AM EST documented in this encounter Patient Instructions * Patient Instructions* Terri Hsu APRN - 06/24/2016 11:30 AM EST We are going to try to get Cinthya's mental status back to her baseline. Starting 06/25/16 Reduce Onfi to 15mg at bedtime Reduce Sertraline to 50mg at bedtime (one half tablet) On 07/01/16: Stop Sertraline Continue Onfi at 15mg at bedtime Call with a progress report one week later You can continue seroquel at 12.5 mg at bedtime You can start the hemp oil drops ([employer]) when you receive it. documented in this encounter Progress Notes * Terri Hsu APRN - 06/24/2016 11:30 AM EST Subjective: [facility] OUTPATIENT FOLLOW UP NOTE Patient Active Problem List Diagnosis ??? Epilepsy ??? Sleep apnea ??? Mental retardation I [...] of seizures in the past. Interval history Since starting Onfi, she has had improvements in seizure control. At her last visit, she was still having some seizures so we elected to increase the dose. a few weeks later, she was doing well in terms of seizures but started having spells of crying and yelling. Her home provider thought maybe shewas having knee pain from her broken leg and she saw an orthopedic provider and had an injection. She then quit crying but became very out of sorts in terms of her mood. Her PCP then put her on zoloft which helped a little. We then increased the dose. Since that time, she has been talking continuously and repeating the same sentences over and over. She is not sleeping and seems to be hallucinating. She is calling out to people that are not there and she is pointing and looking at nothing. She is drooling as well. After this started, her home provider called and was feeling it may be the Onfi so we reduced by 10mg. She is still not having any seizures and the drooling has lightened up but she is still talking nonstop and hallucinating. She also started a small dose of 12.5mg of seroquel atbedtime which has helped her sleep. She is not doing her usual activities and does not enjoy eatingnor watching TV. Seizure miranda, she did best on valproic acid but had GI problems and had to taper off. Her GI issueshave improved. She recovered from her broken right leg which occurred during a seizure, however she still will notweight bear on that leg and has to be transferred with a matthias lift or a stand and pivot on the left leg. This has caused additional problems with caring for her. Social History: Social History Social History ??? [...] on file Social History Narrative Past Medical History Diagnosis Date ??? Hyperlipidemia ??? MR (mental retardation) ??? RIA (obstructive sleep apnea) ??? Seizures Current Outpatient Prescriptions on File Prior to Visit Medication Sig Dispense Refill ??? [DISCONTINUED] cloBAZam 20 mg Tablet 20 mg daily. Take 1.5 tablets nightly for one week then 1 tablet nightly for one week then 1/2 tablet nightly for one week then stop ( start 06/14/16). ??? sertraline (ZOLOFT) 100 mg Tablet Take 1 tablet by mouth daily. 90 tablet 0 ??? QUEtiapine (SEROQUEL) 25 mg Tablet Take 0.5 tablets by mouth nightly. 30 tablet 0 ??? LORazepam (ATIVAN) 1 mg Tablet Take 1-2 tablets at onset of seizure symptoms, if ineffective after 30 minutes may repeat dose. If still not effective please call neurologist spring production supervisor. No more [id number] daily. 45 tablet 3 ??? rufinamide (BANZEL) [...] If still not effective please call neurologist spring production supervisor. 1 kit 3 ??? furosemide (LASIX) 20 [...] Sodium Nausea And Vomiting Objective: Blood pressure 113/72, pulse 82, height (!) 147.3 cm (4' 10), weight 68 kg (150 lb). Awake but notas interactive. she is continuously muttering brief repetitive words of phrases, sitting in wheelchair, Uses both upper extremities, can follow some simple commands, she was anxious to take money outof my hand. VNS interrogated, parameters as found below: Output current: 2.0 milliamps Signal frequency: 20 Hertz Pulse Width:500 microseconds On time: 14 sec Off time:1.1 min Magnet current:2.25 milliamps Pulse Width: 500 microseconds Battery full. Assessment and Plan: - Epilepsy: She has [...] in terms of seizures however her behavior has changed. It is difficult to determine the temporal relationship from med change to the current symptoms but it must be somehow related.Since her behavior has been different since Onfi, we will reduce by 5 mg and see if this improves. Will then reduce sertraline to 50mg for one week then stop as it seems the drooling and hallucinating has stated with that. She can use PRN seroquel for sleep. If this does not help, will bring in formedication changes under video/EEG surveillance. - Screen for medication toxicity: I am not checking any labs today - The patient is currently not a candidate for epilepsy surgery. - Mobility: consider physical therapy as she is not wanting to use her recently fractured leg much.She is afraid to stand. - Bone health: Pt is currently taking Vitamin D. Pt had a recent fracture in her leg. Should check a DEXA in the near future. - Social and psychiatric issues: Improved as above. - Caregiver counselled about medication options, benefit and side effects. - Patient will be seen again by the epilepsy team in 2 months - Caregiver verbalizes understanding and agrees with plan. documented in this encounter Plan of Treatment Upcoming Encounters Date Type Department Care Team (Late st Contact Info) Description 08/06/2024 11:00 AM EST [place] [address] Sarah Serra APRN [facility] [address] documented as of this encounter Visit Diagnoses Diagnosis Intractable [place]-Gastaut syndrome without status epilepticus Hallucinations Mood disorder Unspecified episodic mood disorder documented in this encounter Care Teams Business Info Consultant Relationship Specialty Start Date End Date Luis Manuel Blanca MD [address] [place] [address] PCP - General Family Medicine 06/24/16 documented as of this encounter
--- OUTSIDE RECORDS SUMMARY | 2024-06-28 22:03 | XMS_ITS | Encounter Summary ---
Author Organization [facility] Address [facility] [place] [address] Care Team Providers Care Matcher Leather Parts Name Role Phone Luis Manuel Blanca MD Primary Care Provider [phone] Encounter Details Date Type Department Care Team (Latest Contact Info) Description 09/28/2016 - 09/28/2016 11:59 PM EST Hospital Encounter Radiology Library at [facility] [place] [phone] Christos Davis MD [facility] [place] [address] Pain Discharge Disposition: Home Social History Tobacco [...] If still not effective please call neurologist telephone mechanic. No more than 4mg daily. 45 tablet 3 03/11/2016 03/20/2017 rufinamide (BANZEL) 400 mg TabletIndications:Int ractable N[place]-Gastaut syndrome without status epilepticus Take 3 tablets [...] If still not effective please call neurologist telephone mechanic. 1 kit 3 01/06/2016 11/20/2018 furosemide (LASIX) [...] EST [place] [address] Sarah Serra APRN [facility] [place] [address] documented as of this encounter Procedures Procedure Name Priority Date/Time Associated Diagnosis Comments FILM LIBRARY STORAGE ONLY DX HIP Routine 09/28/2016 12:00 AM EST Pain documented in this encounter Results * Film Library- Storage Only DX Hip (09/28/2016 12:00 AM EST) Narrative [facility] - 10/03/2016 4:44 PM EST This exam is for storage only and is auto-finalizing. Christos Davis MD IMG FILM LIBRARY OR DERABLES Performing Organization Address City/State/[facility] Co de Phone Number [place], [place] documented in this encounter Visit Diagnoses Diagnosis Pain Generalized pain documented in this encounter Care Teams Matcher Leather Parts Relationship Specialty Start Date End Date Luis Manuel Blanca MD [address] [place] [address] PCP - General Family Medicine 06/24/16 documented as of this encounter
--- OUTSIDE RECORDS SUMMARY | 2024-06-28 22:03 | XMS_ITS | Encounter Summary ---
Author Organization [facility] [place] [address] Care Team Providers Care Automotive Mechanical Engineer Name Role Phone Luis Manuel Blanca MD Primary Care Provider [phone] Encounter Details Date Type Department Care Team (Late st Contact Info) Description 07/09/2016 Telephone [place] [address] Jc Sawyer MD [facility] [place] [place] [address] Social History Tobacco Use Types Packs/Day Years [...] encounter Miscellaneous Notes * Telephone Encounter - Jc aSwyer MD - 07/09/2016 9:44 AM EST Caregiver calls --had two seizures at about 4 pm yesterday. Gave ativan yesterday. Gave two more ativan. Then had two small seizures at about 9:05 am. She also had diastat 15 mg rectal. She has had about 6 seizures. She is currently on phenobarbital 120 mg qhs, onfi 15 mg nightly, tripleptal 600 mgTID. Onfi was recently reduced from 40 mg -->30 mg (changed on 06/14)-->20 (changed on 06/21) --> 15 (changed on 06/24). Recently, she came down with a cold on Monday and has increased seizures since then. She may just be having breakthrough seizures in the meantime, however since patient has already about about 6-7 seizures, would have patient evaluated and stablized at local ED. Lulu (the caregiver) will plan to take patient to [facility]. Would consider temporarily increasing Onfi,once patient is stabalized at [facility]. I have discussed this with the caregiver that this is a possible option. Would discuss with epileptologist and will forward to concrete buster operator resident. Jc Sawyer MD Neurology Resident PGY4 Pager [phone] documented in this encounter Plan of Treatment Upcoming Encounters Date Type Department Care Team (Late st Contact Info) Description 08/06/2024 11:00 AM EST Office [place] [address] [address] Serra [address]N [facility] [place] [address] documented as of this encounter Visit Diagnoses Not on filedocumented in this encounter Care Teams Automotive Mechanical Engineer Relationship Specialty Start Date End Date Luis Manuel Blanca MD [address] [place] [address] [address] [place] [address] PCP - General Family Medicine 06/24/16 documented as of this encounter
--- OUTSIDE RECORDS SUMMARY | 2024-06-28 22:03 | XMS_ITS | Encounter Summary ---
Author [facility] [place] [address] Care Team Providers Care Trauma Director Name Role Phone Cee Escobar MD Primary Care Provider [phone] Reason for Visit * Reason Onset Date Comments Medication Refill 02/09/2016 Encounter Details Date Type Department Care Team (Late st Contact Info) Description 02/09/2016 [place] [address] Terri Hsu APRN [facility] [address] Social History Tobacco Use Types Packs/Day Years [...] Encounter - Mita Win RN - 02/09/2016 4:24 PM EDT onfi rx faxed to [facility] on 02/09/16 at 16:03 pm. documented in this encounter Plan of Treatment Upcoming Encounters Date Type Department Care Team (Late st Contact Info) Description 08/06/2024 11:00 AM EST Office [place] [address] Sarah Serra, GEAR LAPPER [facility] [place] [address] documented as of this encounter Visit Diagnoses Not on filedocumented in this encounter Care Teams Trauma Director Relationship Specialty Start Date End Date Cee Escobar MD [address] [place] [address] PCP - General 06/29/10 06/23/16 documented as of this encounter
--- OUTSIDE RECORDS SUMMARY | 2024-06-28 22:03 | XMS_ITS | Encounter Summary ---
Author Organization [facility] [place] [address] Care Team Providers Care Router Machine Operator Name Role Phone Cee Escobar MD Primary Care Provider [phone] Reason for Visit * Reason Onset Date Comments Other 06/10/2016 Encounter Details Date Type Department Care Team (Late st Contact Info) Description 06/10/2016 Telephone [place] [phone] Terri Hsu APRN [facility] [place] [address] Other Social History Tobacco Use Types Packs/Day [...] Telephone Encounter - Mita Win RN - 06/10/2016 3:24 PM EDT Per Terri Hsu APRN: The increase of zoloft should not be causing sedation so I would watch and wait. ??We should see how she is in another week and get some labs next week if she is still having problems. I phoned caregiver Lulu back and reviewed/instructed on above per Terri. Lulu agrees with plan and verbalizes understanding. Plan: as above. * Telephone Encounter - Mita Win RN - 06/10/2016 2:01 PM EDT Last visit 03/11/16 Next visit Not yet scheduled Caregiver Lulu phoned and left message on triage line. She stated that with the recent medication changes pt is now sleeping better but is so tired during the day she can't feed herself and she is out of it:. Lulu is not sure what should be done at this point. I attempted to phone [employer]. There was no answer and message left on voice mail to call back [phone]. Plan; message left to call back [phone]. I will forward to Terri Hsu APRN. documented in this encounter Plan of Treatment Upcoming Encounters Date Type Department Care Team (Late st Contact Info) Description 08/06/2024 11:00 AM EST Office [place] [address] Sarah Serra APRN [facility] [place] [address] documented as of this encounter Visit Diagnoses Not on filedocumented in this encounter Care Teams Router Machine Operator Relationship Specialty Start Date End Date Cee Escobar MD [address] [place] [address] PCP - General 06/29/10 06/23/16 documented as of this encounter
--- OUTSIDE RECORDS SUMMARY | 2024-06-28 22:03 | XMS_ITS | Encounter Summary ---
Author Organization [facility] Address [facility] [place] [address] Care Team Providers Care Director Payment Name Role Phone Luis Manuel Blanca MD Primary Care Provider [phone] Encounter Details Date Type Department Care Team (Latest Contact Info) Description 07/09/2016 12:05 AM EST - 07/09/2016 2:01 PM EST Hospital Encounter Radiology Library at [facility], [address] [address] Arnel Son Jr., MD [facility] [place] [address] Pain Discharge Disposition: Home Social History Tobacco [...] If still not effective please call neurologist diamond merchant. No more than 4mg daily. 45 tablet [...] If still not effective please call neurologist diamond merchant. 1 kit 3 01/06/2016 11/20/2018 furosemide (LASIX) [...] 11:00 AM EST [place] [address] Sarah Serra APRN [facility] [place] [address] documented as of this encounter Procedures Procedure Name Priority Date/Time Associated Diagnosis Comments FILM LIBRARY STORAGE ONLY DX CHEST Routine 07/09/2016 12:05 AM EST Pain documented in this encounter Results * Film Library- Storage Only DX Chest (07/09/2016 12:05 AM EST) Narrative [facility] - 07/09/2016 1:21 PM EST This exam is for storage only and is auto-finalizing. Arnel Son Jr., MD IMG FILM LIBRARY ORDERABLES [place], [place] documented in this encounter Visit Diagnoses Diagnosis Pain Generalized pain documented in this encounter Care Teams Director Payment Relationship Specialty Start Date End Date Luis Manuel Blanca MD [address] [place] [address] PCP - General Family Medicine 06/24/16 documented as of this encounter
--- OUTSIDE RECORDS SUMMARY | 2024-06-28 22:03 | XMS_ITS | Encounter Summary ---
Author Organization [facility] [place] [address] Care Team Providers Care Manager Marketing Sales Name Role Phone Cee Escobar MD Primary Care Provider [phone] Reason for Visit * Reason Onset Date Comments Other 01/18/2016 Encounter Details Date Type Department Care Team (Late st Contact Info) Description 01/18/2016 [place] [phone] Terri Hsu APRN [facility] [place] [address] Other Social History Tobacco Use Types Packs/Day [...] encounter Miscellaneous Notes * Telephone Encounter - Ciara Blanco RN - 01/19/2016 2:37 PM EDT Call placed to Lulu, pt's caregiver, letting her know Terri would like pt to increase Onfi to 15 mg daily. She verbalized understanding and will give us a call in 7-10 days to let us know how pt's doing. * Telephone Encounter - Mita Win RN - 01/18/2016 12:49 PM EDT Covering provider would like Terri Hsu APRN to review when she is back in clinic tomorrow. Message sent to Terri Hsu APRN. Message left on caregiver's voice mail (Lulu) informing her of this. * Telephone Encounter - Mita Win RN - 01/18/2016 10:23 AM EDT Last visit 11/11/15 Next visit 02/17/16 Caregiver Lulu phoned and left message on triage line. Pt had trileptal recently decreased slightly and this has helped with her whining and crying. She is not doing either as much since decreasing that dose. Lulu states however that pt has had an increase in her seizures since decreasing that dose. She states that they are shorter duration and she comes out of them quickly. She states pthad 2 seizures on Monday and 1 seizure on Monday. She is wonder if they could try increasing the onfi slightly. Current Outpatient Prescriptions on File Prior to [...] If still not effective please call neurologist video production coordinator. 1 kit 3 ??? LORazepam (ATIVAN) 1 mg Tablet Take 1-2 tablets at onset of seizure symptoms, if ineffective after 30 minutes may repeat dose. If still not effective please call neurologist video production coordinator. No more acux5ek daily. 45 tablet 3 ??? furosemide (LASIX) 20 mg Tablet Take 20-40 mg by mouth daily. ??? clobazam (ONFI) 10 mg Tablet Take 1 tablet by mouth daily. 30 tablet 3 ??? rufinamide (BANZEL) 400 mg Tablet Take 3 tablets by mouth 3 times daily. 270 tablet 5 ??? loratadine (CLARITIN) 10 mg Tablet Take 10 mg by mouth daily as needed for Allergies. ??? PHENobarbital (LUMINAL) 60 mg Tablet Take 2 tablets by mouth nightly. 120 tablet 3 ??? esomeprazole (NEXIUM) 40 mg Capsule, Delayed Release(E.C.) Take 40 mg by mouth 2 times daily. ??? ferrous sulfate 325 mg (65 mg iron) Tablet Take 325 mg by mouth 2 times daily. ??? midazolam, PF, (VERSED) 5 mg/mL Solution 1 mL by Nasal route daily as needed (give 1 ml via atomizer for cluster of seizures). 2 mL 3 ??? atorvastatin (LIPITOR) 40 mg tablet Take 40 mg by mouth daily. No current facility-administered medications on file prior to visit. Plan: I will forward to Sarah Serra APRN in absence of Terri Hsu APRN for review. Will callHeidiifer back once input is available. I attempted to caregiver back. There was no answer. Message left that I would forward off message to provider and get back in contact with her. documented in this encounter Plan of Treatment Upcoming Encounters Date Type Department Care Team (Late st Contact Info) Description 08/06/2024 11:00 AM EST [place] [address] Sarah Serra APRN [facility] [place] [address] documented as of this encounter Visit Diagnoses Not on filedocumented in this encounter Care Teams Manager Marketing Sales Relationship Specialty Start Date End Date Cee Escobar MD [address] [place] [address] PCP - General 06/29/10 06/23/16 documented as of this encounter
--- OUTSIDE RECORDS SUMMARY | 2024-06-28 22:03 | XMS_ITS | Encounter Summary ---
Author Organization [facility] [place] [place] [address] Care Team Providers Care Starch And Prosize Mixer Name Role Phone Cee Escobar MD Primary Care Provider [phone] Encounter Details Date Type Department Care Team (Late st Contact Info) Description 03/11/2016 11:00 AM EDT Office [place] [address] Terri Hsu APRN [facility] 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 Social History Tobacco [...] Sign Reading Time Taken Comments Blood Pressure 110/63 03/11/2016 10:50 AM EDT Pulse 79 03/11/2016 10:50 AM EDT Temperature - - Respiratory Rate - - Oxygen Saturation - - Inhaled Oxygen Concentration - - Weight 72.6 kg (160 lb) 03/11/2016 10:50 AM EDT reported Height - - Body Mass Index 33.44 08/11/2015 3:14 PM EST documented in this encounter Patient Instructions * Patient Instructions* Terri Hsu APRN - 03/11/2016 11:00 AM EDT We changed the VNS today to more rapid cycling Next week, increase Clobazam (onfi) to 30mg nightly (1.5 tablets) One week later start reducing the banzel by 1 tablet per week. If you get to a sweet spot, then STOP. We will try to get her off of Banzel if able. Call if any worsening of seizures occures. documented in this encounter Progress Notes * Terri Hsu APRN - 03/11/2016 11:00 AM EDT Subjective: [facility] OUTPATIENT FOLLOW UP NOTE Patient Active Problem [...] history Since starting Onfi, she has had some improvements in seizure control however she is not seizure free. The seizures are not as intense. She is having them often in clusters about once per week. Aftereach increase, she will do well for about a week but then goes back to having clusters of seizures.She did best on valproic acid but had GI problems and had to taper off. Her GI issues have improved. She recovered from her broken right [...] ??? Not on file Social History Narrative ROS: She is quite alert. She is eating and sleeping well. Behavior is good. She has been complaining of headaches lately, mainly in the afternoon. Her home provider is not sure about whether or not it is truly head pain but she does grab her head and it is relieved by tylenol. Past Medical History Diagnosis Date ??? Hyperlipidemia ??? MR (mental retardation) ??? RIA (obstructive sleep apnea) ??? Seizures Current Outpatient Prescriptions on File Prior to Visit Medication Sig Dispense Refill ??? clobazam 20 mg Tablet Take 1 tablet by mouth daily. 30 tablet 5 ??? OXcarbazepine (TRILEPTAL) 300 mg Tablet Take by mouth. Take 2 tablets every am, 1 tablet every afternoon, and 2 tablets every evening. Brand name medically necessary. ??? diaZEPam (DIASTAT ACUDIAL) 12.5-15-17.5-[address] 15 mg rectally as needed (1 syringe forcluster of seizures.). if ineffective after 30 minutes may repeat dose. If still not effective please call neurologist combination welder apprentice. 1 kit 3 ??? LORazepam (ATIVAN) 1 mg Tablet Take 1-2 tablets at onset of seizure symptoms, if ineffective after 30 minutes may repeat dose. If still not effective please call neurologist combination welder apprentice. No more lsfv2qi daily. 45 tablet 3 ??? furosemide (LASIX) 20 mg Tablet Take 20-40 mg by mouth daily. ??? rufinamide (BANZEL) 400 mg Tablet Take [...] Sodium Nausea And Vomiting Objective: Blood pressure 110/63, pulse 79, weight 72.6 kg (160 lb). Awake and more talkative than at her lastvisit, she intermittently says brief repetitive words of phrases, sitting in wheelchair, interacting with caregiver and provider, can follow some simple commands, mood is good. VNS interrogated, parameters as found below: Output current: 2.0 milliamps Signal frequency: 20 Hertz Pulse Width:500 microseconds On time: 14 sec Off time:1.1 min Magnet current:2.25 milliamps Pulse Width: 500 microseconds Systems diagnostics normal. Battery half full. I increased the duty cycle to the above settings. Assessment and Plan: - Epilepsy: She has had a roland course in terms of seizures and med changes. She had done so well on the combination of trileptal, depakote and lamictal however had to taper depakote due to GI issuesand bleeding. Her anemia has improved and endoscopy has improved as well. Seems to be tolerating Banzel and it has helped but she is certainly not seizure free. She has had some positive effects from Onfi. I increased the duty cycle of the VNS today then in one week will increase Onfi to 30mg nightly. After another week, will start reducing Banzel at 1 pill per week. Going up to 1200mg TID did not provide benefit over 800mg TID. Will see if we hit a sweet spot along the way. 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
--- OUTSIDE RECORDS SUMMARY | 2024-06-28 22:03 | XMS_ITS | Encounter Summary ---
Author Organization [facility] [place] [address] Care Team Providers Care Relocation Commissioner Name Role Phone Luis Manuel Blanca MD Primary Care Provider [phone] Reason for Visit * Reason Onset Date Comments Other 07/20/2016 Encounter Details Date Type Department Care Team (Late st Contact Info) Description 07/20/2016 [place] [address] Terri Hsu APRN [facility] [place] [address] Other Social History Tobacco Use Types Packs/Day [...] Telephone Encounter - Mita Win RN - 08/16/2016 4:57 PM EST Cinthya phoned back. She states that she will talk with Keiry saunders's case aide and ask her to writeup what she is looking for Terri to review. Plan: as above. * Telephone Encounter - Mita Win RN - 08/16/2016 3:33 PM EST Per Terri Hsu APRN: ?? I called yesterday and left a message. ??Can you call her back today and find out what she wants the letter to say and I will do it? ?? I attempted to phone caregiver Lulu at request of Terri Hsu regarding letter. There was no answer. Message left to call back [phone]. * Telephone Encounter - Mita Win RN - 07/22/2016 4:39 PM EST Per Terri Hsu APRN: I called yesterday and left a message. ??Can you call her back today and find out what she wants the letter to say and I will do it? I attempted to phone caregiver Lulu at request of Terri Hsu regarding letter. Her spouse Magdiel answered and states she was out of town but will be back Monday. Magdiel stated he would have Lulu call us back Monday to discuss further. Plan; as above. Will wait for call back from Lulu. * Telephone Encounter - Mita Win RN - 07/20/2016 11:06 AM EST Caregiver Lulu phoned and left message on triage line. She states that Cinthya is doing okay since the hospital stay. She states that her case aide is trying to get Lulu the caregiver more funding for Cinthya. The case aide is asking for a letter from Terri stating in as much detail as possible the struggles they have been having with the seizures and medication changes and how much harder it has been trying to manage Cinthya while trying to change her medications. She states that if Terri could do this she would be very appreciative. If it can be done then it can be mailed to home address in chart. Plan: I will forward to Terri Hsu APRN for further review and recommendation. documented in this encounter Plan of Treatment Upcoming Encounters Date Type Department Care Team (Late st Contact Info) Description 08/06/2024 11:00 AM EST [place] [address] Sarah Serra APRN [facility] [place] [address] documented as of this encounter Visit Diagnoses Not on filedocumented in this encounter Care Teams Relocation Commissioner Relationship Specialty Start Date End Date Luis Manuel Blanca MD [address] [place] [address] PCP - General Family Medicine 06/24/16 documented as of this encounter
--- OUTSIDE RECORDS SUMMARY | 2024-06-28 22:03 | XMS_ITS | Encounter Summary ---
Author Organization [facility] [place] [address] Care Team Providers Care Policeman Name Role Phone Luis Manuel Blanca MD Primary Care Provider [phone] Encounter Details Date Type Department Care Team (Late st Contact Info) Description 08/19/2016 1:00 PM EST [place] [address] Terri Hsu APRN [facility] 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 Social History Tobacco [...] Sign Reading Time Taken Comments Blood Pressure 114/57 08/19/2016 12:54 PM EST Pulse 86 08/19/2016 12:54 PM EST Temperature - - Respiratory Rate - - Oxygen Saturation - - Inhaled Oxygen Concentration - - Weight 68 kg (150 lb) 08/19/2016 12:54 PM EST Height 147.3 cm (4' 10) 08/19/2016 12:54 PM EST Body Mass Index 31.35 08/19/2016 12:54 PM EST documented in this encounter Patient Instructions * Patient Instructions* Terri Hsu APRN - 08/19/2016 1:00 PM EST New seizure rescue protocol For cluster of seizures , of three consecutive seizures in 15 minutes, give the followin. Give 2mg of oral lorazepam OR 2. Diastat 15mg rectally OR 3. Midazolam 5mg via nasal atomizer If seizure recurs or lasts greater than 5 minutes then you may give additional midazolam up to 10mg. documented in this encounter Progress Notes * Terri Hsu APRN - 08/19/2016 1:00 PM EST Subjective: [facility] OUTPATIENT FOLLOW UP NOTE [...] she has had improvements in seizure control. We had tried to increase the dose, however a few weeks later, she was doing well in terms of seizures, but started having spells of crying and yelling. Her home provider thought maybe she was having knee pain from her broken leg and she saw an orthopedic provider and had an injection. She then quit crying but became very out of sorts in terms of her mood. Her PCP then put her on zoloft which helped a little. We then increased thedose. She then started talking continuously and repeating the same sentences over and over. She wasnot sleeping and started hallucinating and was drooling as well. After this started, her home provider called and we reduced the Onfi by 10mg. After that, she developed pneumonia and had to be admitted to the hospital for IV antibiotics. This occurred in July. While in the hospital, they made some modest medication adjustments and she seems to be doing better. She is still having seizures though. She is having clusters about once a week. They use lorazepam during the clusters but it takes a long time to work. She often can have 3-4 large seizures in a cluster. They have not tried the midazolam yet. They have received the Floq but have not started it yet. Seizure miranda, she did best on valproic [...] If still not effective please call neurologist final application reviewer. No more rfjd2yd daily. 45 tablet 3 ??? rufinamide (BANZEL) [...] If still not effective please call neurologist final application reviewer. 1 kit 3 ??? furosemide (LASIX) 20 mg Tablet Take 40 mg by mouth daily. ??? [...] Take 40 mg by mouth daily. ??? levoFLOXacin (LEVAQUIN) 500 mg Tablet Take 1 tablet by mouth daily. (Patient not taking: Reported on 08/19/2016) 3 tablet 0 No current facility-administered medications on file prior to visit. Allergies Allergen Reactions ??? Amoxicillin-Pot Clavulanate Rash ??? Risedronate Sodium Nausea And Vomiting Objective: Blood pressure 114/57, pulse 86, height (!) 147.3 cm (4' 10), weight 68 kg (150 lb). Awake and a little more interactive than at her last visit. Sitting in wheelchair, uses both upper extremities, [...] of seizures however her behavior has changed. She is doing somewhat better since the pneumonia was treated. She is no longer hallucinating. She can use PRN seroquel for sleep which does help. Will continue her current antiepileptic medications but she will add the 2C2P web. We will also try midazolam for the clusters. - Screen for medication toxicity: I am not checking any labs today - The patient is currently not a candidate for epilepsy surgery. - Mobility: consider physical therapy as she is not wanting to use her recently fractured leg much.She is afraid to stand. She apparently has a blood blister on her right foot. This could also be causing her pain. 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
--- OUTSIDE RECORDS SUMMARY | 2024-06-28 22:04 | XMS_ITS | Encounter Summary ---
Author Organization [facility] [place] [place] [address] Care Team Providers Care Punchboard Stuffer Name Role Phone Cee Escobar MD Primary Care Provider [phone] Reason for Visit * Reason Onset Date Comments Prior Authorization 05/29/2015 PA NOT NEEDE D FOR DIASTAT Encounter Details Date Type Department Care Team (Late st Contact Info) Description 05/29/2015 Telephone [place] [phone] Terri Hsu APRN [facility] [place] [address] Prior Authorization (PA NOT NEEDED FOR DIASTAT) Social History Tobacco Use Types Packs/Day Years [...] Miscellaneous Notes * Telephone Encounter - Alondra Dubon - 06/01/2015 10:38 AM EDT PA NOT NEEDED FOR DIASTAT PER INSURANCE FAX THIS IS ALREADY A COVERED MEDICATION. * Telephone Encounter - Alondra Dubon - 05/29/2015 3:49 PM EDT BARRY FOR DIASTAT FAXED TO [facility]. documented in this encounter Plan of Treatment Upcoming Encounters Date Type Department Care Team (Late st Contact Info) Description 08/06/2024 11:00 AM EST Office [place] [address] Sarah Serra SEO SPECIALIST [facility] [place] [address] documented as of this encounter Visit Diagnoses Not on filedocumented in this encounter Care Teams Punchboard Stuffer Relationship Specialty Start Date End Date Cee Escobar MD [address] [place] [address] PCP - General 06/29/10 06/23/16 documented as of this encounter
--- OUTSIDE RECORDS SUMMARY | 2024-06-28 22:04 | XMS_ITS | Encounter Summary ---
Author Organization [facility] [place] [address] Care Team Providers Care Tennis Desk Team Member Name Role Phone Cee Escobar MD Primary Care Provider [phone] Reason for Visit * Reason Onset Date Comments Other 11/30/2015 Encounter Details Date Type Department Care Team (Late st Contact Info) Description 11/30/2015 [place] [phone] Terri Hsu APRN [facility] [place] [address] Other Social History Tobacco Use Types Packs/Day [...] Telephone Encounter - Mita Win RN - 12/01/2015 9:17 AM EDT Terri Hsu APRN reviewed: I would like to see how she does with the Onfi and then hopefully she will need less ativan but wecan certainly increase it to 45 tablets or so. I phoned caregiver Lulu and reviewed/instructed above. Lulu agrees with plan and verbalizesunderstanding. * Telephone Encounter - Mita Win RN - 11/30/2015 4:48 PM EDT I phoned Lulu back. She did not get my earlier message stating she is just getting home. I explained that onfi prior authorization has been done and approved through 2019. I did explain that if pt changes insurance or if dose needs to be increased that it will probably need another prior authorization. I also asked uLlu how often pt is taking the ativan ( current ativan directions - Ativan 1 mg take 1-2 tablets at onset of seizure symptoms, If ineffective after 30 minutes may repeat dose. If still not effective please call neurologist fashion consultant sales. No more than 4 mg daily). Lulu states that pt needs to take the ativan daily and the dose depends. She sometimes needs 1 or 2 tablets a day and sometimes needs the max 4 mg dose. She states that on the she can get more from the pharmacy and thinks she will be okay. She is hoping now that pt can start the onfi this will help. Plan: I will forward to Terri Hsu APRN for review. * Telephone Encounter - Mita Win RN - 11/30/2015 11:56 AM EDT Caregiver Lulu phoned and left message on triage line stating that pt still needed PA for onfi.She also stated that she needs a new rx for the ativan and that 30 tablets is not enough for this prescription. I attempted to phone caregiver. Message left on voice mail that I was able to get the onfi approvedand that I did notify the pharmacy. I also left message for Lulu to call back so we can discussthe issue with the ativan and get more information as to exactly what pt is taking for a dose. Plan: will wait for lulu to call back. documented in this encounter Plan of Treatment Upcoming Encounters Date Type Department Care Team (Late st Contact Info) Description 08/06/2024 11:00 AM EST Office [place] [address] Sarah Serra APRN [facility] [address] documented as of this encounter Visit Diagnoses Not on filedocumented in this encounter Care Teams Tennis Desk Team Member Relationship Specialty Start Date End Date Cee Escobar MD [address] [place] [address] PCP - General 06/29/10 06/23/16 documented as of this encounter
--- OUTSIDE RECORDS SUMMARY | 2024-06-28 22:04 | XMS_ITS | Encounter Summary ---
Author Organization [facility] [place] [address] Care Team Providers Care Ultrasonic Seaming Machine Operator Name Role Phone Cee Escobar MD Primary Care Provider [phone] Reason for Visit * Reason Onset Date Comments Other 07/27/2015 Encounter Details Date Type Department Care Team (Late st Contact Info) Description 07/27/2015 Telephone [place] [phone] Terri Hsu APRN [facility] [place] [address] Other Social History Tobacco Use Types Packs/Day [...] Telephone Encounter - Mita Win RN - 08/03/2015 9:09 AM EST Per Terri Hsu APRN: It only comes in 200 and 400mg pills unfortunately. It is fine to use the 200mg tablets but it will be more costly and possibly cause a prior auth to occur. * Telephone Encounter - Mita Win RN - 07/27/2015 4:57 PM EST Pharmacist Arvind from [facility] phoned. He states he can't get the banzel in either 400 mg or 800 mg tablets. They have the 200 mg tablets currently and wonder if they can dispense this. They are not sure if they will be able to get it in the future or not. I phoned and spoke with caregiver Lulu. I will prepare new rx for banzel with 200 mg tablets for provider review and signature. Caregiver states pt is back up to banzel 800 mg in am, 400 mg at lunch, and 800 mg in evening. We also discussed about her getting RX at [facility] [place] pt's home. [facility] only has one pill in stock but states they can order and get it here in a day. Pt only has enough med til tomorrow am and caregiver doesn't want to drive [place] [facility] as it is an hour drive. At request of caregiver I have prepared a new rx for 200 mg tablets of banzel with enoughto get til 08/11/15 office visit. She will in the meantime think about changing to [facility] pharmacy and could pick out hand a prescription after pt office visit. Plan: as above and I have updated pharmacist as well. Caregiver agrees with plan and verbalizes understanding. documented in this encounter Plan of Treatment Upcoming Encounters Date Type Department Care Team (Late st Contact Info) Description 08/06/2024 11:00 AM EST Office [place] [address] Sarah Serra APRN [facility] [place] [address] documented as of this encounter Visit Diagnoses Not on filedocumented in this encounter Care Teams Ultrasonic Seaming Machine Operator Relationship Specialty Start Date End Date Cee Escobar MD [address] [place] [address] PCP - General 06/29/10 06/23/16 documented as of this encounter
--- OUTSIDE RECORDS SUMMARY | 2024-06-28 22:04 | XMS_ITS | Encounter Summary ---
Author Organization [facility] [place] [address] Care Team Providers Care Electric Golf Cart Repairers Name Role Phone Cee Escobar MD Primary Care Provider [phone] Reason for Visit * Reason Onset Date Comments Other 02/25/2015 Encounter Details Date Type Department Care Team (Late st Contact Info) Description 02/25/2015 Telephone [place] [phone] Gabby Fay MD [facility] [address] [place] [address] Other Social History Tobacco Use Types Packs/Day [...] Telephone Encounter - Mita Win RN - 02/26/2015 10:[address] Fay: Please reduce the dose of Keppra from 500 mg twice a day back down to 250 mg twice a day, and please schedule the patient to be seen in [facility], in 1-2 weeks on a day when I am here and can also look at her. We may need to change from Keppra to a different drug. Thanks, gabby fay I phoned and spoke with caregiver Lulu and instructed her on above per Dr. Fay. Caregiver informed I will have medical assistant secretary phone her to schedule this f/u visit. Caregiver agrees with plan and verbalizes understanding. * Telephone Encounter - Mita Win RN - 02/25/2015 3:55 PM EDT Last visit 12/31/14 Next visit 05/12/15 Caregiver Lulu phoned and left message on triage line. Lulu states that on 02/02/15 pt was started on keppra (see 02/02 telephone note) and pt has been taken off depakote. Pt is now on keppra 500 mg twice a day. Lulu stated that starting about 02/06/15 pt started whining. She states it is pretty constant and not giving away. This only started after being on the keppra. She wants to know what we think. She did also mention that pt's seizures are better. I attempted to phone Lulu to discuss further and there was no answer. Message left on voice mail to call back [phone]. Medications not reviewed Current Outpatient Prescriptions on File Prior to Visit Medication Sig Dispense Refill ??? LORazepam (ATIVAN) 1 mg Tablet For clusters of seizure. 30 tablet 3 ??? levETIRAcetam (KEPPRA) 500 mg Tablet Take 0.5 tablet twice daily for 2 weeks then 1 tablet twice daily 60 tablet 6 ??? loratadine (CLARITIN) 10 mg Tablet Take 10 mg by mouth daily as needed for Allergies. ??? PHENobarbital (LUMINAL) 60 mg Tablet Take 2 tablets by mouth nightly. 120 tablet 3 ??? TRILEPTAL 300 mg Tablet Take 2 tablets by mouth 3 times daily. 180 tablet 11 ??? esomeprazole (NEXIUM) 40 mg Capsule, Delayed Release(E.C.) Take 40 mg by mouth 2 times daily. ??? ferrous sulfate 325 mg (65 mg iron) Tablet Take 325 mg by mouth 2 times daily. ??? midazolam, PF, (VERSED) 5 mg/mL Solution 1 mL by Nasal route daily as needed (give 1 ml via atomizer for cluster of seizures). 2 mL 3 ??? diaZEPam (DIASTAT ACUDIAL) 12.5-15-17.5-[address] 15 mg rectally as needed (1 syringe forcluster of seizures). 1 kit 3 ??? IPRIFLAV/CA CARBONATE/VIT D3 (CALCIUM CARB-VIT D3-IPRIFLAVON ORAL) Take by mouth 3 times daily. ??? atorvastatin (LIPITOR) 40 mg tablet Take 40 mg by mouth daily. ??? furosemide (LASIX) 40 mg tablet Take 40 mg by mouth daily. No current facility-administered medications on file prior to visit. Plan: will forward to Dr. Fay for review and recommendation. documented in this encounter Plan of Treatment Upcoming Encounters Date Type Department Care Team (Late st Contact Info) Description 08/06/2024 11:00 AM EST Office [place] [address] Sarah Serra APRN [facility] [place] [address] documented as of this encounter Visit Diagnoses Not on filedocumented in this encounter Care Teams Electric Golf Cart Repairers Relationship Specialty Start Date End Date Cee Escobar MD [address] [place] [address] PCP - General 06/29/10 06/23/16 documented as of this encounter
--- OUTSIDE RECORDS SUMMARY | 2024-06-28 22:04 | XMS_ITS | Encounter Summary ---
Author Organization [facility] Address [facility] [place] [address] Care Team Providers Care Program Management Manager Name Role Phone Cee Escobar MD Primary Care Provider [phone] Encounter Details Date Type Department Care Team (Latest Contact Info) Description 07/09/2015 - 07/09/2015 12:04 AM [facility] Encounter Radiology Library at [facility] [place] [place] [address] Christos Davis MD [facility] [place] [address] Pain Discharge Disposition: Home Social History Tobacco [...] tablet Take 40 mg by mouth daily. HYDROcodone-acetamino phen (NORCO) 5-325 mg Tablet Take 1 tablet by mouth 4 times daily as needed for Pain. 08/11/2015 rufinamide (BANZEL) 400 mg Tablet Take 400 mg by mouth 2 times daily. 07/27/2015 diaZEPam (DIASTAT ACUDIAL) 12.5-15-17.5-[address] 15 mg rectally as needed (1 syringe for cluster of seizures). 1 kit 3 05/26/2015 01/06/2016 zonisamide (ZONEGRAN) 100 mg Capsule Take 3 capsules by mouth nightly. 90 capsule 5 05/01/2015 08/11/2015 LORazepam (ATIVAN) 1 mg TabletIndications:Epi lepsy seizure, generalized, convulsive Take 1-2 tablets at onset of seizure symptoms, if ineffective after 30 minutes may repeat dose. If still not effective please call neurologist conveyor monitor. No more than 4mg daily. 30 tablet 3 03/05/2015 08/05/2015 PHENobarbital (LUMINAL) 60 mg Tablet Take 2 tablets by mouth nightly. 120 tablet 3 11/24/2014 03/11/2016 TRILEPTAL 300 mg TabletIndications:Epi lepsy seizure, generalized, convulsive Take 2 tablets by mouth 3 times daily. 180 tablet 11 10/01/2014 10/05/2015 midazolam, PF, (VERSED) 5 mg/mL Solution 1 mL by Nasal route daily as needed (give 1 ml via atomizer for cluster of seizures). 2 mL 3 08/27/2014 08/31/2018 IPRIFLAV/CA CARBONATE/VIT D3 (CALCIUM CARB-VIT D3-IPRIFLAVON ORAL) Take by mouth 3 times daily. 01/06/2016 furosemide (LASIX) 40 mg tablet Take 40 mg by mouth daily. 12/06/2010 08/11/2015 documented as of this encounter Plan of Treatment Upcoming Encounters Date Type Department Care Team (Late st Contact Info) Description 08/06/2024 11:00 AM EST [place] [address] Sarah Serra, COUNTER MOLDER [facility] [place] [address] documented as of this encounter Procedures Procedure Name Priority Date/Time Associated Diagnosis Comments FILM LIBRARY STORAGE ONLY DX KNEE Routine 07/09/2015 12:00 AM EST Pain documented in this encounter Results * Film Library- Storage only DX Knee (07/09/2015 12:00 AM EST) Narrative [facility] - 04/03/2016 7:51 AM EDT This exam is for storage only and is auto-finalizing. Christos Davis MD IMG FILM LIBRARY OR DERABLES [place], [place] documented in this encounter Visit Diagnoses Diagnosis Pain Generalized pain documented in this encounter Care Teams Program Management Manager Relationship Specialty Start Date End Date Cee Escobar MD [address] [place] [address] PCP - General 06/29/10 06/23/16 documented as of this encounter
--- OUTSIDE RECORDS SUMMARY | 2024-06-28 22:04 | XMS_ITS | Encounter Summary ---
Author Organization [facility] Address [facility] [place] [address] Care Team Providers Care Knot Picker Cloth Name Role Phone Cee Escobar MD Primary Care Provider [phone] Encounter Details Date Type Department Care Team (Latest Contact Info) Description 09/24/2015 - 09/24/2015 11:59 PM EST Hospital Encounter Radiology Library at [facility] [place] [phone] Christos Davis MD [facility] [place] [address] Pain Discharge Disposition: Home Social History Tobacco [...] tablet Take 40 mg by mouth daily. 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 270 tablet 5 09/22/2015 03/11/2016 LORazepam (ATIVAN) 1 mg TabletIndications:Epi lepsy seizure, generalized, convulsive Take 1-2 tablets at onset of seizure symptoms, if ineffective after 30 minutes may repeat dose. If still not effective please call neurologist premix operator concentrate. No more than 4mg daily. 30 tablet 3 08/05/2015 12/01/2015 diaZEPam (DIASTAT ACUDIAL) 12.5-15-17.5-[address] 15 mg rectally as needed (1 syringe for cluster of seizures). 1 kit 3 05/26/2015 01/06/2016 PHENobarbital (LUMINAL) 60 mg Tablet Take 2 [...] Take by mouth 3 times daily. 01/06/2016 documented as of this encounter Plan of Treatment Upcoming Encounters Date Type Department Care Team (Late st Contact Info) Description 08/06/2024 11:00 AM EST [place] [address] Sarah Serra APRN [facility] [place] [address] documented as of this encounter Procedures Procedure Name Priority Date/Time Associated Diagnosis Comments FILM LIBRARY STORAGE ONLY DX KNEE Routine 09/24/2015 12:00 AM EST Pain documented in this encounter Results * Film Library- Storage only DX Knee (09/24/2015 12:00 AM EST) Narrative [facility] - 04/03/2016 7:57 AM EDT This exam is for storage only and is auto-finalizing. Christos Davis MD IMG FILM LIBRARY OR DERABLES [place], [place] documented in this encounter Visit Diagnoses Diagnosis Pain Generalized pain documented in this encounter Care Teams Knot Picker Cloth Relationship Specialty Start Date End Date Cee Escobar MD [address] [place] [address] PCP - General 06/29/10 06/23/16 documented as of this encounter
--- OUTSIDE RECORDS SUMMARY | 2024-06-28 22:04 | XMS_ITS | Encounter Summary ---
Author Organization [facility] [place] [address] Care Team Providers Care Hotel Front Desk Agent Name Role Phone Cee Escobar MD Primary Care Provider [phone] Reason for Visit * Reason Onset Date Comments Other 01/06/2016 Encounter Details Date Type Department Care Team (Late st Contact Info) Description 01/06/2016 [place]phone [place] [phone] Terri Hsu APRN [facility] [place] [address] Other Social History Tobacco Use Types Packs/Day [...] Telephone Encounter - Mita Win RN - 01/08/2016 11:22 AM EDT New trileptal order mailed to pt/caregiver on 01/08/16 at 11:22 am. * Telephone Encounter - Mita Win RN - 01/07/2016 4:37 PM EDT I discussed with Terri Hsu APRN. Okay to continue onfi and decrease trileptal by 300 mg. I phoned and spoke with caregiver Lulu and informed her per Terri okay to decrease trileptal by 300 mg.Pt currently on trileptal 300 mg two tablets tid. Caregiver will decrease afternoon dose by one tablet so pt will be on Trileptal 300 mg 2 tablets in am, 1 tablet in afternoon, and 2 tablets in pm. Caregiver states she will need a written order mailed to her. I will prepare new orders and once reviewed/signed by Terri Hsu APRN will mail to caregiver. Plan: as above and caregiver agrees with plan and verbalizes understanding. * Telephone Encounter - Mita Win RN - 01/06/2016 1:56 PM EDT Per Terri Hsu APRN: Do you know which antibiotic she was on? ??Can't imagine it is Onfi but it is possible. ??We can lower the dose to 5mg per night if she wants to try that. For rescue, ??She can have the diastat and then if no relief can either repeat the diastat or a lorazepam dose in 30 minutes. ??If that does not work, she should call the loss mitigation specialist physician. I Phoned and spoke with caregiver Lulu. She states that pt was on cephalexin 500 mg tid x 5 days. She also states that she feels the onfi is holding pt's seizures better and wondered if she coulddecrease the trileptal dose. Plan: I will forward to Terri Hsu APRN for review/recommendation. * Telephone Encounter - Mita Win RN - 01/06/2016 10:42 AM EDT Breakthrough Seizure Last Appointment: 11/11/15 Next Appointment: 7/13/16 Primary Question/ Concern Today: caregiver phoned stating that something is wrong with pt. She is not exactly sure what. She states that she is very whiny and very tired and unsteady ( she was standing and pivoting but doesn't have the strength to do that). Pt started her onfi on 11/30/15 - the first 4 days being on this she did very well. She then had a spell of bad seizures but they realized shehad not gotten a dose of the phenobarbital (2 tablets) and she had also missed 1 pill of the trileptal so caregiver feels that was the cause of those seizures. Then she developed fever and had a toe infection ( was started on antibiotics 12/18/15). It was the weekend of 12/12/15 that she had more seizures (found to be related to the toe infection). She was given diastat which stopped the seizure butthe seizures returned 15 minutes later (and lasted about 2 1/2 minutes)and she administered ativan.Caregiver would like specific instructions as to when she can give the diastat and if it can be repeated and if pt can have ativan same day if necessary. Caregiver also states that pt has been getting ativan most every day since due to eyes fluttering/staring, and her arms jerks. Caregiver states these symptoms usually lead into her grand mal seizures. Caregiver is not sure what is going on and not sure where to begin. She states pt will be seeing PCP 01/29/16. Caregiver is not sure all of what going on is neurological or not but is concerned. REPORT ON CURRENT CONCERN: (for any positive response note explanation) ??? Date and Time of seizure(s): see above for seizures ??? Description of seizure(s): grand mal seizure and caregiver states they did not stop. ??? Length of seizure(s): 45 second - 1 minute seizures ??? Was seizure precipitated by anything: ??? Any injury from the seizure: No - but does have bruises from falling ??? Was this typical seizure activity: Yes If no please explain: ??? When was last seizure(s) prior to today: ??? Recent missed doses of medication: yes as above If yes please explain: Any rescue medications used: diastat and ativan If yes please note what was used and outcome: They did help the seizures ??? Are any seizure medications generic: If yes please note: If yes any recent mail handler change: No change in mail handler of her seizure medications per caregiver ??? Last Drug levels: 04/01/15 trileptal level 38, 08/11/15 banzel level 10.6, 12/31/14 phenobarbital level 36.1 ??? Current Weight: Current Medications: Outpatient Prescriptions Marked as Taking for the 01/06/16 encounter (Telephone) with Terri Hsu APRN Medication Sig Dispense Refill ??? LORazepam (ATIVAN) 1 mg Tablet Take 1-2 tablets at onset of seizure symptoms, if ineffective after 30 minutes may repeat dose. If still not effective please call neurologist loss mitigation specialist. No more [id number] daily. 45 tablet 3 ??? furosemide (LASIX) 20 mg Tablet Take 20-40 mg by mouth daily. ??? clobazam (ONFI) 10 mg Tablet Take 1 tablet by mouth daily. 30 tablet 3 ??? TRILEPTAL 300 mg Tablet Take 2 tablets by mouth 3 times daily. 180 tablet 11 ??? rufinamide (BANZEL) 400 mg Tablet Take 3 tablets by mouth 3 times daily. 270 tablet 5 ??? diaZEPam (DIASTAT ACUDIAL) 12.5-15-17.5-[address] 15 mg rectally as needed (1 syringe forcluster of seizures). 1 kit 3 ??? loratadine (CLARITIN) 10 [...] response note explanation) ??? Any current sleep concerns: yes - has not been sleeping well and has been waking up crying ??? Any current appetite or eating concerns: No ??? Any current pain concerns: No If yes please explain: Rate on scale of 1-10: ??? Any new worries, stressors, or routine changes: No ??? Any recent Illness/Injuries/Surgeries: recent toe infection with fever ??? Any additional Information to relay to the provider? : Plan/Intervention/Follow Up - Report forwarded to Terri Hsu APRN for review and comment. Pt/caller [...] 11:00 AM EST Office [place] [address] Sarah Serra APRN [facility] [place] [address] documented as of this encounter Visit Diagnoses Not on filedocumented in this encounter Care Teams Hotel Front Desk Agent Relationship Specialty Start Date End Date Cee Escobar MD [address] [place] [address] PCP - General 06/29/10 06/23/16 documented as of this encounter
--- OUTSIDE RECORDS SUMMARY | 2024-06-28 22:04 | XMS_ITS | Encounter Summary ---
Author Organization [facility] [place] [address] Care Team Providers Care Emergency Dept Tech Name Role Phone Cee Escobar MD Primary Care Provider [phone] Reason for Visit * Reason Onset Date Comments Other 05/01/2015 Encounter Details Date Type Department Care Team (Late st Contact Info) Description 05/01/2015 [place] [phone] Terri Hsu APRN [facility] [place] [address] Other Social History Tobacco Use Types Packs/Day [...] Telephone Encounter - Mita Win RN - 05/01/2015 3:[address] Fay: Please tell them to give an extra 200 mg tonight as a loading dose and then increase the baseline dose to 300 mg at night, starting tomorrow. Thanks, gabby fay I Phoned and spoke with caregiver Lulu and instructed on zonegran dose change per Dr. Fay (above instructions). Lulu agrees with plan and verbalizes understanding. New prescription generated for provider review and signature. * Telephone Encounter - Mita Win RN - 05/01/2015 10:58 AM EDT Breakthrough Seizure Last Appointment: 04/01/15 Next Appointment: 06/25/15 Primary Question/ Concern Today: caregiver phoned to report that pt is still experiencing fairly frequent seizures. Pt had a seizure on 04/23/15 this was a typical seizure for her with arm/leg jerking. Caregiver administered ativan 2 mg and 45 minutes later had to administer 2 mg more. This finally controlled seizure and she was back to her normal self. On 04/25 she had a seizure and had eye fluttering and arm jerking. Ativan was administered. On 04/26 Cinthya was crying and not acting herself but it didn't look like seizure activity to caregiver. On 04/27 caregiver did not hear or see a seizure but her behavior was like it is after having a seizure. She was given ativan 2 mg at 4 am that day. Caregiver states that she is having to give ativan more frequently. She has to give it at least 3 times a week. Caregiver states that during last office visit they discussed about possibly increasing patient's zonegran dose to 300 mg nightly. REPORT ON CURRENT CONCERN: (for any positive response note explanation) ??? Date and Time of seizure(s): 04/30/15 at 5 pm - pt had 3 seizures in car while caregiver was driving ( had one seizure prior to driving in car also) ??? Description of seizure(s) grand mal seizure - arms and legs were jerking and her eyes were bugged out and she bit her lip/tongue ??? Length of seizure(s): all seizures were over one minute and they came back to back ??? Was seizure precipitated by anything: No ??? Any injury from the seizure: patient bit her lip and tongue ??? Was this typical seizure activity :Yes If no please explain: ??? When was last seizure(s) prior to today: 04/23, 04/25,04/26, and 04/27 ??? Recent missed doses of medication: No If yes please explain: ??? Any rescue medications used: Ativan ??? If yes please note what was used and outcome: Ativan was used and was effective although sometimes they needed to repeat dose for effectiveness. ??? Are any seizure medications generic: If yes please note: phenobarbital and zonegran If yes any recent food demonstrator change: No ??? Last Drug levels: 04/01/15 zonegran level 15 and trileptal level 38 ??? Current Weight: Current Medications: Outpatient Prescriptions Marked as Taking for the 05/01/15 encounter (Telephone) with Terri Hsu APRN Medication Sig Dispense Refill ??? zonisamide (ZONEGRAN) 100 mg Capsule Take 200 mg by mouth nightly. ??? LORazepam (ATIVAN) 1 mg Tablet Take 1-2 tablets at onset of seizure symptoms, if ineffective after 30 minutes may repeat dose. If still not effective please call neurologist radiation control worker. No more [id number] daily. 30 tablet 3 ??? loratadine (CLARITIN) 10 mg Tablet [...] explanation) ??? Any current sleep concerns : No ??? Any current appetite or eating concerns: pt still has ongoing stomach issues (see 04/01/15 note). But no changes. She has not had any vomiting and tolerating her diet. ??? Any current pain concerns: No If yes please explain: Rate on scale of 1-10: ??? Any new worries, stressors, or routine changes: No ??? Any recent Illness/Injuries/Surgeries: No ??? Any additional Information to relay to the provider? No Plan/Intervention/Follow Up - Report forwarded to Dr. Fay for review and comment. Pt/caller aware they will be called back with input when available and to call back in the interim if additional questions or change arise before they hear back from this office. Pt/caller agreeable to this plan. * Telephone Encounter - Lucina Min - 05/01/2015 9:53 AM EDT Lulu called in regards to the patient and her seizures. States that patient has still been experiencing seizures and they would like to know if it would be okay to make changes to her medications. Please call to discuss. After 12:30 they can be reached at [phone] but prior to 12 call housenumber. documented in this encounter Plan of Treatment Upcoming Encounters Date Type Department Care Team (Late st Contact Info) Description 08/06/2024 11:00 AM EST [place] [address] Sarah Serra APRN [facility] [place] [address] documented as of this encounter Visit Diagnoses Not on filedocumented in this encounter Care Teams Emergency Dept Tech Relationship Specialty Start Date End Date Cee Escobar MD [address] [place] [address] PCP - General 06/29/10 06/23/16 documented as of this encounter
--- OUTSIDE RECORDS SUMMARY | 2024-06-28 22:04 | XMS_ITS | Encounter Summary ---
Author Organization [facility] [place] [address] Care Team Providers Care Adzing And Boring Machine Helper Name Role Phone Cee Escobar MD Primary Care Provider [phone] Encounter Details Date Type Department Care Team (Late st Contact Info) Description 03/05/2015 3:45 PM EDT [place] [address] Sarah Serra APRN [facility] [place] [address] Epilepsy seizure, generalized, convulsive Discharge Disposition: Home Social History Tobacco Use [...] Sign Reading Time Taken Comments Blood Pressure 149/70 03/05/2015 3:41 PM EDT Pulse 89 03/05/2015 3:41 PM EDT Temperature - - Respiratory Rate - - Oxygen Saturation - - Inhaled Oxygen Concentration - - Weight 68 kg (150 lb) 03/05/2015 3:41 PM EDT per caregiver Height 142.2 cm (4' 8) 03/05/2015 3:41 PM EDT p er caregiver Body Mass Index 33.63 03/05/2015 3:41 PM EDT documented in this encounter Patient Instructions * Patient Instructions* Sarah Serra APRN - 03/05/2015 4:39 PM EDT It was nice seeing you today. I believe that Cinthya's irritability is related to her Keppra, I would like to try another drug called Zonisamide (Zonegran). For 1 week please take Keprra 250mg in the AM and Zonisamide 100mg in the PM. Then discontinue Keppra completely and increase to Zonisamide 200mg in the PM. For Ativan: Take 1-2 tablets at onset of seizure symptoms, if ineffective after 30 minutes may repeat dose. If still not effective please call neurologist secondary school teacher. No more than 4mg daily. Please continue taking the rest of your medications as directed. Please make sure you stay adequately hydrated. Please contact us if you develop any side effects including or if seizure symptoms get worse. Clinic hours: Urgent matters after hours/weekends: and ask for the neurologist secondary school teacher. For emergencies call 911. We will see you back in 1 month. documented in this encounter Progress Notes * Sarah Serra APRN - 03/05/2015 4:11 PM EDT Subjective: [facility] OUTPATIENT FOLLOW UP NOTE [...] alone Triggers:Excitement, cold, sometimes unprovoked Current AEDS: Keppra 250mg BID, Trileptal 600mg TID, Phenobarb 120mg qhs, Ativan PRN, [...] epilepsy. Recent history: Pt taken off depakote b/c of stomach upset, phenobarb was increased. Stomach pains improved but patient was having increased seizures, VNS increased at last visit and subsequently started on Keppra. Caregiver called last week reporting increased behavioral issues, keppra reduced, scheduled for followup today. Interval history: Seizure Control: QEpilepsy 08/27/2014 Last seizure was: Within past year Number of seizures in past month: 0 Were seizures disabling? No Caregiver confirms details above. Patient is whining all day, crying, multiple complaints. Always happy when talking to mom on the phone, cried the entire time the last 2 times they spoke. Caregiver and reforestation worker reporting significant caregiver fatigue. Starts as soon as pt wakes up and continues until she goes to sleep. Started Keppra on a Monday, new behavioral symptoms started on Monday. S he just isn't herself overall, not acting right, also seems a little shaky. Tired a lot, up early in the AM 345, 445. Caregiver has not observed any seizures at night but did switch to a noise activated monitor instead of a baby monitor, may be having silent seizures. Otherwise she is doing ok in terms of seizures, taking 2mg ativan at onset of seizure symptoms (jerking of arm), this is preventing any larger seizures. Used Ativan twice in the past 2 weeks, no larger seizures during that time. Previously having seizures every 2-3 days. She has no history of kidney stones. Social History: History Social History ??? Marital Status: Single Spouse Name: N/A Number of Children: N/A ??? Years of Education: N/A Occupational History ??? Not on file. Social History Main Topics ??? Smoking status: Never Smoker ??? Smokeless tobacco: Never Used ??? Alcohol Use: No ??? Drug Use: No ??? Sexual Activity: Not on file Comment: deferred Other Topics Concern ??? Not on file Social History Narrative Social Factors: QEPILEPSY SOCIAL FACTORS 08/27/2014 Employment status: No Currently driving: No Considering No Review of Systems: Review of systems 08/27/2014 1. double vision - 2. headache - 3. rash - 4. unsteadiness Often 5. upset stomach, nausea, vomiting Often 6. troubles with gums or teeth - 7. weight loss or gain Sometimes 8. tremors or shaking Sometimes 9. restlessness Sometimes 10. dizziness - 11. tiredness/sleepiness Sometimes 12. trouble sleeping Never 13. difficulties concentrating - 14. feelings of aggression - 15. depression - 16. thoughts about ending your life - 17. palpitations or chest pains - 18. bladder problems - 19. breathing problems - Memory and concentration symptoms (QOLIE-31) QEPILEPSY QOLIE31 08/27/2014 Memory problems - Difficulty reasoning and solving problems - Trouble remembering things people tell None of the time Trouble concentrating on reading - Trouble concentrating on doing one thing at a time - How much do your memory difficulties bother you? - QOLIE-31 Incomplete Depression Score (NDDI-E) QEPILEPSY DEPRESSION SCORE 08/27/2014 Depression Score Incomplete Quality of Life QEPILEPSY QOL 07/25/2012 Quality of Life (10-Best Quality of Life; 0-Worst Quality of Life) 8 Past Medical History Diagnosis Date ??? Seizures ??? Hyperlipidemia ??? RIA (obstructive sleep apnea) ??? MR (mental retardation) Current Outpatient Prescriptions on File Prior to Visit Medication Sig Dispense Refill ??? levETIRAcetam (KEPPRA) 500 mg Tablet Take 250 mg by mouth 2 times daily. ??? LORazepam (ATIVAN) 1 mg Tablet For clusters of seizure. (Patient taking differently: 2 mg as needed. For clusters of seizure.) 30 tablet 3 ??? loratadine (CLARITIN) 10 [...] Physical Exam: Vitals: Temp: -- Heart Rate: [89] Resp: -- BP: (149)/(70) SpO2: -- Awake, alert, of apparent age, well dressed and groomed, intermittently says brief repetitive wordsof phrases, sitting in wheelchair, interacting with caregiver and provider, mood is labile. Procedure: VNS interrogated, parameters as found below: Output current: 2.0 milliamps Signal frequency: 20 Hertz Pulse Width:500 microseconds On time:21 sec Off time:1.8 min Magnet current:2.25 milliamps Pulse Width:500 microseconds Not near end of battery, no changes made. Assessment and Plan: - Epilepsy: I believe that Cinthya's irritability is related to her Keppra, we will try switching to 200mg Zonisamide qhs (cross taper schedule outlined in pt instructions), if ineffective will try Vimpat next. - Screen for medication toxicity: labs at next visit. - The patient is currently not a candidate for epilepsy surgery. - Bone health: Pt is currently taking Vitamin D. - Social and psychiatric issues: As above. - Caregiver counselled about medication use, benefit and side effects, advised adequate hydration to prevent formation of kidney stones. - Prescriptions were renewed. - Patient will be seen again by the epilepsy team in 1 month. - Caregiver verbalizes understanding and agrees with plan. documented in this encounter Plan of Treatment Upcoming Encounters Date Type Department Care Team (Late st Contact Info) Description 08/06/2024 11:00 AM EST Office [place] [address] Sarah Serra APRN [facility] [address] documented as of this encounter Visit Diagnoses Diagnosis Epilepsy seizure, generalized, convulsive Generalized convulsive epilepsy without mention of intractable epilepsy documented in this encounter Care Teams Adzing And Boring Machine Helper Relationship Specialty Start Date End Date Cee Escobar MD [address] [place] [address] PCP - General 06/29/10 06/23/16 documented as of this encounter
--- OUTSIDE RECORDS SUMMARY | 2024-06-28 22:04 | XMS_ITS | Encounter Summary ---
[place] [address] Care Team Providers Care Pipe Line Gauger Name Role Phone Cee Escobar MD Primary Care Provider [phone] Reason for Visit * Reason Onset Date Comments Other 03/05/2015 Encounter Details Date Type Department Care Team (Late st Contact Info) Description 03/05/2015 Telephone [place] [phone] Sarah Serra APRN [facility] [place] [address] Other Social History Tobacco Use Types Packs/Day [...] encounter Miscellaneous Notes * Telephone Encounter - Michelle Luz RMA - 03/05/2015 6:13 PM EDT Prescription for Ativan 1 mg tabs from 03/05/15 faxed to [facility] in [place], [place] per Sarah Serra. documented in this encounter Plan of Treatment Upcoming Encounters Date Type Department Care Team (Late st Contact Info) Description 08/06/2024 11:00 AM EST Office [place] [address] Sarah Serra APRN [facility] [place] [place] [address] documented as of this encounter Visit Diagnoses Not on filedocumented in this encounter Care Teams Pipe Line Gauger Relationship Specialty Start Date End Date Cee Escobar MD [address] [place] [address] PCP - General 06/29/10 06/23/16 documented as of this encounter
--- OUTSIDE RECORDS SUMMARY | 2024-06-28 22:04 | XMS_ITS | Encounter Summary ---
Author Organization [facility] Address [facility] [place] [address] Care Team Providers Care Wire Communications Engineer Name Role Phone Cee Escobar MD Primary Care Provider [phone] Encounter Details Date Type Department Care Team (Latest Contact Info) Description 08/17/2015 - 08/17/2015 11:59 PM EST Hospital Encounter Radiology Library at [facility] [place] [phone] Christos Davis MD [facility] [place] [address] Pain Discharge Disposition: Home Social History Tobacco [...] daily. 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 180 tablet 5 08/11/2015 09/03/2015 LORazepam (ATIVAN) 1 mg TabletIndications:Epi lepsy seizure, generalized, convulsive Take 1-2 tablets at onset of seizure symptoms, if ineffective after 30 minutes may repeat dose. If still not effective please call neurologist continuous towel roller. No more than 4mg daily. 30 tablet [...] 11:00 AM EST [place] [address] Sarah Serra, DINO [facility] [address] documented as of this encounter Procedures Procedure Name Priority Date/Time Associated Diagnosis Comments FILM LIBRARY STORAGE ONLY DX KNEE Routine 08/17/2015 12:00 AM EST Pain documented in this encounter Results * Film Library- Storage only DX Knee (08/17/2015 12:00 AM EST) Narrative RAD - 04/03/2016 7:55 AM EDT This exam is for storage only and is auto-finalizing. Christos Davis MD IMG FILM LIBRARY OR DERABLES [place], [place] documented in this encounter Visit Diagnoses Diagnosis Pain Generalized pain documented in this encounter Care Teams Wire Communications Engineer Relationship Specialty Start Date End Date Cee Escobar MD [address] [place] [address] PCP - General 06/29/10 06/23/16 documented as of this encounter
--- OUTSIDE RECORDS SUMMARY | 2024-06-28 22:04 | XMS_ITS | Encounter Summary ---
[place] [address] Care Team Providers Care Computational Biologist Name Role Phone Cee Escobar MD Primary Care Provider [phone] Reason for Visit * Reason Onset Date Comments Prior Authorization 06/05/2015 MARGARITA APPRO ODIN 03/07/15-06/04/18 Encounter Details Date Type Department Care Team (Late st Contact Info) Description 06/05/2015 Telephone [place] [phone] Terri Hsu APRN [facility] [place] [address] Prior Authorization (MARGARITA APPROVED 03/07/15-06/04/18) Social History Tobacco Use Types Packs/Day Years [...] * Telephone Encounter - Alondra Dubon - 06/08/2015 9:21 AM EST MARGARITA APPROVED 03/07/15-06/04/18 * Telephone Encounter - Latha Reid LPN - 06/05/2015 3:12 PM EDT Further information required by [facility].Faxed back @ [phone] * Telephone Encounter - Alondra Dubon - 06/05/2015 1:45 PM EDT BARRY AVILA FAXED TO [facility] [employer]. documented in this encounter Plan of Treatment Upcoming Encounters Date Type Department Care Team (Late st Contact Info) Description 08/06/2024 11:00 AM EST Office [place] [address] Sarah Serra APRN [facility] [place] [address] documented as of this encounter Visit Diagnoses Not on filedocumented in this encounter Care Teams Computational Biologist Relationship Specialty Start Date End Date Cee Escobar MD [address] [place] [address] PCP - General 06/29/10 06/23/16 documented as of this encounter
--- OUTSIDE RECORDS SUMMARY | 2024-06-28 22:04 | XMS_ITS | Encounter Summary ---
[place] [address] Care Team Providers Care Medicaid Eligibility Specialist Name Role Phone Cee Escobar MD Primary Care Provider [phone] Reason for Visit * Reason Onset Date Comments Medication Refill 05/29/2015 Encounter Details Date Type Department Care Team (Late st Contact Info) Description 05/29/2015 [place] [phone] Terri Hsu [facility] [place] [address] Social History Tobacco Use Types Packs/Day Years [...] 11:00 AM EST [place] [phone] Sarah Serra SPRINKLING SYSTEM INSTALLER [facility] [address] documented as of this encounter Visit Diagnoses Not on filedocumented in this encounter Care Teams Medicaid Eligibility Specialist Relationship Specialty Start Date End Date Cee Escobar MD [address] [place] [address] PCP - General 06/29/10 06/23/16 documented as of this encounter
--- OUTSIDE RECORDS SUMMARY | 2024-06-28 22:04 | XMS_ITS | Encounter Summary ---
Author Organization [facility] [place] [address] Care Team Providers Care Advertising Specialist Name Role Phone Cee Escobar MD Primary Care Provider [phone] Reason for Visit * Reason Onset Date Comments Other 12/30/2014 Encounter Details Date Type Department Care Team (Late st Contact Info) Description 12/30/2014 [place] [phone] Terri Hsu APRN [facility] [place] [address] Other Social History Tobacco Use Types Packs/Day [...] Telephone Encounter - Mita Win RN - 12/30/2014 11:24 AM EDT Seizure Increase Last Appointment: 11/24/14 Next Appointment: 12/31/14 Learning Needs Assessment last Reviewed: 11/18/14 Primary Question/ Concern Today- seizure at midnight - used diastat with good effect unsure how long it lasted REPORT ON CURRENT CONCERN: ??? When did increase of seizures start: gradual with each week longer/harder ??? How often are seizures occurring: weekly with clusters ??? Description of seizures: arm jerking, eye fluttering, then seizure will start - pt doesn't realize it is happening - progresses until grand mal seizure the next day ??? Length of seizure(s): 45 second to longer - not sure of max length of seizure ??? Is this typical seizure activity : Yes ( ) No ( X ) If no please explain: the arm jerking and fluttering prior to the seizure is not normal ??? Recent missed doses of medication: Yes ( ) No ( X ) If yes please explain: ??? Any rescue medications used: Yes ( X ) No ( ) If yes please explain: ativan and did have to use diastat; ativan most recently had to use two doses to work. ??? Last Drug levels (date and result): ??? Current Weight: caregiver not sure states weight has not changed ??? Are any seizure medications generic: Yes ( ) No ( X ) If yes which medication: Any recent hand striper change: Yes ( ) No ( ) N/A Allergy List Updated and Marked as Reviewed: Yes ( ) Current Medications: Outpatient Prescriptions Marked as Taking for the 12/30/14 encounter (Telephone) with Terri Hsu APRN Medication Sig Dispense Refill ??? loratadine (CLARITIN) 10 mg Tablet Take [...] Take by mouth 3 times daily. ??? LORazepam (ATIVAN) 1 mg tablet Take 1 tablet by mouth. Take 1 tab after seizure. May repeat up to 4mg in 24 hours 30 tablet 5 ??? atorvastatin (LIPITOR) 40 mg tablet Take 40 mg by mouth daily. ??? furosemide (LASIX) 40 mg tablet Take 40 mg by mouth daily. GENERAL QUESTIONS ( for any positive response note explanation) ??? Any current sleep concerns : Yes ( ) No ( X ) But is more tired in the afternoon ??? Any current appetite or eating concerns: Yes ( ) No ( X ) ??? Any current pain concerns: Yes ( ) No ( X ) If yes please explain: Rate on scale of 1-10: ??? Any new worries, stressors, or routine changes: Yes ( ) No ( X ) ??? Any recent Illness: Yes ( ) No ( X ) ??? Any recent Injuries: Yes ( ) No ( X ) ??? Any additional Information to relay to the provider? : Yes ( ) No ( X ) Plan/Intervention/Follow Up - Report forwarded to Terri [...] 11:00 AM EST [place] [address] Sarah Serra APRN [facility] [place] [address] documented as of this encounter Visit Diagnoses Not on filedocumented in this encounter Care Teams Advertising Specialist Relationship Specialty Start Date End Date Cee Escobar MD [address] [place] [address] PCP - General 06/29/10 06/23/16 documented as of this encounter
--- OUTSIDE RECORDS SUMMARY | 2024-06-28 22:04 | XMS_ITS | Encounter Summary ---
[place] [address] Care Team Providers Care Certified Endoscopy Technician Name Role Phone Cee Escobar MD Primary Care Provider [phone] Reason for Visit * Reason Onset Date Comments Medication Refill 01/06/2016 Encounter Details Date Type Department Care Team (Late st Contact Info) Description 01/06/2016 [place] [phone] Terri Hsu [facility] [place] [address] Social History Tobacco Use Types Packs/Day Years [...] Office [place] [phone] Sarah Serra TRIAGE SPECIALIST [facility] [place] [address] documented as of this encounter Visit Diagnoses Not on filedocumented in this encounter Care Teams Certified Endoscopy Technician Relationship Specialty Start Date End Date Cee Escobar MD [address] [place] [address] PCP - General 06/29/10 06/23/16 documented as of this encounter
--- OUTSIDE RECORDS SUMMARY | 2024-06-28 22:04 | XMS_ITS | Encounter Summary ---
Author Organization [facility] [place] [address] Care Team Providers Care Bread Slicer Machine Name Role Phone Cee Escobar MD Primary Care Provider [phone] Reason for Visit * Reason Onset Date Comments Other 02/02/2015 Encounter Details Date Type Department Care Team (Late st Contact Info) Description 02/02/2015 [place] [phone] Leslye Hsu APRN [facility] [place] [address] Other Social History Tobacco Use Types Packs/Day [...] Telephone Encounter - Mita Win RN - 02/02/2015 4:52 PM EDT Leslye Hsu reviewed: Will start Keppra 250mg BID for 2 weeks then 500mg BID. I sent the prescription to the pharmacy I phoned and spoke with caregiver Lulu and reviewed above instructions regarding starting of keppra. Lulu agrees with plan and verbalizes understanding. * Telephone Encounter - Mita Win RN - 02/02/2015 10:35 AM EDT Last visit 12/31/14 Next visit 05/12/15 Caregiver Lulu phoned. She states that pt had her endoscopy on Monday and that they were told by the doctor that her stomach is much much better - not 100% but better. Caregiver states she spoke with leslye about possibly adding another seizure medication and lulu is wondering if they would be able to do this now that pt's stomach is better. She states pt is still having seizures ( she states that they are consistent). Lulu also states that Leslye changed the ativan order at last visit and she needs a new prescription sent to the pharmacy. Per 12/31/14 note: Assessment and Plan: - Epilepsy: Had trouble with the depakote taper as an outpatient. Monty needd to bring her in to the hospital to complete the taper. Will get a repeat endoscopy in about 4-6 weeks as she will have beenoff of the Depakote for an adequate period.She is having seizures about once per week that consist of a cluster. I Updated the Ativan PRN protocol. She can get oral lorazepam for clusters of brief tonic episodes, then diastat 15mg for grand mal seizures lasting 2 minutes or longer then midazolam via nasal atomizer if the GTC lasts greater than 5 minutes. Will hold off on any further medication additions until after the endoscopy as to not confuse the issue. If seizures continue we can try zonisa mide or keppra. - Screen for medication toxicity:will check AED levels today - Bone health: currently taking Ca and VIt D - Social and psychiatric issues: lives with her home provider and her family - control/ Women's issues: menopausal - Prescriptions were renewed. - Patient will be seen again by the epilepsy team in 3 months Plan: I will forward to Leslye Hsu for review and recommendation. * Telephone Encounter - Samantha Daily - 02/02/2015 9:51 AM EDT Lulu states she needs to speak with a nurse regarding the patient's medications. Lulu is asking for a call back today if possible. documented in this encounter Plan of Treatment Upcoming Encounters Date Type Department Care Team (Late st Contact Info) Description 08/06/2024 11:00 AM EST [place] [address] Sarah Serra APRN [facility] [place] [address] documented as of this encounter Visit Diagnoses Not on filedocumented in this encounter Care Teams Bread Slicer Machine Relationship Specialty Start Date End Date Cee Escobar MD [address] [place] [address] PCP - General 06/29/10 06/23/16 documented as of this encounter
--- OUTSIDE RECORDS SUMMARY | 2024-06-28 22:04 | XMS_ITS | Encounter Summary ---
[place] [address] Care Team Providers Care Pattern Puncher Name Role Phone Cee Escobar MD Primary Care Provider [phone] Reason for Visit * Reason Onset Date Comments Medication Refill 08/05/2015 Encounter Details Date Type Department Care Team (Late st Contact Info) Description 08/05/2015 Ref[place] [phone] Terri Hsu [facility] [place] [address] Social History Tobacco Use Types Packs/Day Years [...] 11:00 AM EST Office [place] [phone] Sarah Serra DISTRICT SUPERVISOR [facility] [place] [address] documented as of this encounter Visit Diagnoses Not on filedocumented in this encounter Care Teams Pattern Puncher Relationship Specialty Start Date End Date Cee Escobar MD [address] [place] [address] PCP - General 06/29/10 06/23/16 documented as of this encounter
--- OUTSIDE RECORDS SUMMARY | 2024-06-28 22:04 | XMS_ITS | Encounter Summary ---
[place] [address] Care Team Providers Care Revenue Enforcement Collection Agent Name Role Phone Cee Escobar MD Primary Care Provider [phone] Reason for Visit * Reason Onset Date Comments Medication Refill 02/02/2015 Encounter Details Date Type Department Care Team (Late st Contact Info) Description 02/02/2015 [place] [address] Terri Hsu [facility] 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
--- OUTSIDE RECORDS SUMMARY | 2024-06-28 22:04 | XMS_ITS | Encounter Summary ---
Author Organization [facility] [place] [address] Care Team Providers Care Project Lead Name Role Phone Cee Escobar MD Primary Care Provider [phone] Reason for Visit * Reason Onset Date Comments Medication Refill 12/01/2015 Encounter Details Date Type Department Care Team (Late st Contact Info) Description 12/01/2015 [place] [phone] Terri Hsu APRN [facility] [place] [address] Epilepsy seizure, generalized, convulsive Social History Tobacco [...] Encounter - Mita Win RN - 12/01/2015 4:12 PM EDT Ativan prescriptions approved 12/01/15 faxed to [facility] pharmacy 12/01/15 at 15:53 pm. 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
--- OUTSIDE RECORDS SUMMARY | 2024-06-28 22:04 | XMS_ITS | Encounter Summary ---
Author Organization [facility] [place] [address] Care Team Providers Care Senior Sql Dba Name Role Phone Cee Escobar MD Primary Care Provider [phone] Reason for Visit * Reason Onset Date Comments Medication Refill 05/26/2015 Encounter Details Date Type Department Care Team (Late st Contact Info) Description 05/26/2015 [place] [phone] Terri Hsu APRN [facility] [place] [address] Epilepsy seizure, generalized, convulsive Social History Tobacco [...] Telephone Encounter - Mita Win RN - 05/26/2015 6:01 PM EDT diastat prescription [facility] 05/26/15 at 17:43 pm. documented in this encounter Plan of Treatment Upcoming Encounters Date Type Department Care Team (Late st Contact Info) Description 08/06/2024 11:00 AM EST [place] [address] Sarah Serra APRN [facility] [place] [address] documented as of this encounter Visit Diagnoses Diagnosis Epilepsy seizure, generalized, convulsive Generalized convulsive epilepsy without mention of intractable epilepsy documented in this encounter Care Teams Senior Sql Dba Relationship Specialty Start Date End Date Cee Escobar MD [address] [place] [address] PCP - General 06/29/10 06/23/16 documented as of this encounter
--- OUTSIDE RECORDS SUMMARY | 2024-06-28 22:04 | XMS_ITS | Encounter Summary ---
Author Organization [facility] [place] [address] Care Team Providers Care Progressive Care Unit Registered Nurse Name Role Phone Cee Escobar MD Primary Care Provider [phone] Reason for Visit * Reason Onset Date Comments Other 07/01/2015 Encounter Details Date Type Department Care Team (Late st Contact Info) Description 07/01/2015 Telephone [place] [phone] Terri Hsu APRN [facility] DR NEUROLOGY [place] [address] Other Social History Tobacco Use Types Packs/Day [...] Telephone Encounter - Mita Win RN - 07/01/2015 12:[address] Mckee: Yes this could be an effect of the Banzel. Have them reduce the dose to 400 mg twice a day. We should readdress this early next week. gabby Mckee I phoned caregiver Lulu and reviewed above with her. She agrees with plan and verbalizes understanding. She will call early next week with update. She is also aware of how to contact the neurologist machine operations supervisor after hours. Plan: as above and caregiver agrees with plan and verbalizes understanding. * Telephone Encounter - Mita Win RN - 07/01/2015 9:48 AM EST Last visit 04/01/15 Next visit 07/09/15 - but caregiver needs to change - she can't get pt here for this day Caregiver phoned with questions regarding pt. She states that on Monday Cinthya stopped walking. She states that pt has done this in the past where she would stop walking and then start up again the next day. Pt recently started on Banzel 06/09/15 and she wasn't sure if this was a possible side effect. She is currently on banzel 400 mg tablets taking 2 tablets twice a day and caregiver states she issupposed to start taking an extra 400 mg around noon. Caregiver states her seizures have been much better on the banzel. She states that she is happy and alert and is eating and drinking well. She has not been ill and doesn't have fever. Caregiver also said she doesn't appear to be in any pain. Shecan stand but can't move her feet. She moves her arms fine with no problem. Again, she states that pt has done this before but not as long and she wasn't sure if it could be the banzel. Current Outpatient Prescriptions on File Prior to Visit Medication Sig Dispense Refill ??? rufinamide (BANZEL) 400 mg Tablet Take 2 tablets by mouth 2 times daily. 120 tablet 3 ??? diaZEPam (DIASTAT ACUDIAL) 12.5-15-17.5-[address] 15 mg rectally as needed (1 syringe forcluster of seizures). 1 kit 3 ??? zonisamide (ZONEGRAN) 100 mg Capsule Take 3 capsules by mouth nightly. 90 capsule 5 ??? LORazepam (ATIVAN) 1 mg Tablet Take 1-2 tablets at onset of seizure symptoms, if ineffective after 30 minutes may repeat dose. If still not effective please call neurologist machine operations supervisor. No more czyf9se daily. 30 tablet 3 ??? loratadine (CLARITIN) [...] cluster of seizures). 2 mL 3 ??? IPRIFLAV/CA CARBONATE/VIT D3 (CALCIUM CARB-VIT D3-IPRIFLAVON ORAL) Take by mouth 3 times daily. ??? atorvastatin (LIPITOR) 40 mg tablet Take 40 mg by mouth daily. ??? furosemide (LASIX) 40 mg tablet Take 40 mg by mouth daily. No current facility-administered medications on file prior to visit. Plan: I will forward to Dr. Mckee in absence of Terri Hsu for review and recommendation. documented in this encounter Plan of Treatment Upcoming Encounters Date Type Department Care Team (Late st Contact Info) Description 08/06/2024 11:00 AM EST Office [place] [address] Sarah Serra APRN [facility] [place]UROLOG[place] [address] documented as of this encounter Visit Diagnoses Not on filedocumented in this encounter Care Teams Progressive Care Unit Registered Nurse Relationship Specialty Start Date End Date Cee Escobar MD [address] [place] [address] PCP - General 06/29/10 06/23/16 documented as of this encounter
--- OUTSIDE RECORDS SUMMARY | 2024-06-28 22:04 | XMS_ITS | Encounter Summary ---
Author Organization [facility] [place] [address] Care Team Providers Care Electrical Helper Name Role Phone Cee Escobar MD Primary Care Provider [phone] Reason for Visit * Reason Onset Date Comments Other 05/07/2015 Encounter Details Date Type Department Care Team (Late st Contact Info) Description 05/07/2015 Tele[place] [phone] Leslye Hsu APRN [facility] [place] [address] Other Social History Tobacco Use Types Packs/Day [...] Telephone Encounter - Mita Win RN - 05/08/2015 9:55 AM EDT Per Leslye Hsu APRN: zonegran is very long acting and may take a while to kick in. If she just increased it last week, we should give it another week or so to see the effects. She should call us in 2 weeks with an update. I phoned caregiver and spoke with Lulu and instructed on above. Lulu agrees with plan and verbalizes understanding. * Telephone Encounter - Mita Win RN - 05/07/2015 2:09 PM EDT Caregiver Lulu phoned stating that pt is still having frequent seizures (see telephone note 05/01/15). On 05/01/15 Dr. Mckee instructed on increasing zonegran to 300 mg nightly (pt did get 400 mgdose 05/01/[address] Mckee then increased to 300 mg nightly on 05/02/15). Lulu states that pt is still having the frequent seizures although when she has them they are not as bad. She states pt had a seizure today with the arm/leg jerking but her eyes did not bug out of her head like before and she did not have any biting and it only lasted 40 seconds. Lulu is not sure if she needs to give the increased dose a little more time to become fully effective. We did discuss that but will defer to Leslye Hsu. Plan: will forward to leslye Hsu APRN for review and recommendation. documented in this encounter Plan of Treatment Upcoming Encounters Date Type Department Care Team (Late st Contact Info) Description 08/06/2024 11:00 AM EST Office [place] [address] Sarah Serra APRN [facility] [place] [address] documented as of this encounter Visit Diagnoses Not on filedocumented in this encounter Care Teams Electrical Helper Relationship Specialty Start Date End Date Cee Escobar MD [address] [place] [address] PCP - General 06/29/10 06/23/16 documented as of this encounter
--- OUTSIDE RECORDS SUMMARY | 2024-06-28 22:04 | XMS_ITS | Encounter Summary ---
Author Organization [facility] [place] [address] Care Team Providers Care Access Manager Name Role Phone Cee Escobar MD Primary Care Provider [phone] Reason for Visit * Reason Onset Date Comments Other 09/03/2015 Encounter Details Date Type Department Care Team (Late st Contact Info) Description 09/03/2015 [place] [phone] Terri Hsu APRN [facility] [place] [address] Other Social History Tobacco Use Types Packs/Day [...] Telephone Encounter - Mita Win RN - 09/03/2015 5:04 PM EST Sarah Serra APRN reviewed: pt is currently on banzel 800 mg TID. Instructions for banzel: Increase dose to 1200 mg in am , 800 mg in afternoon, and 800 mg in evening One week later increase dose to 1200 mg in am , 800 mg in afternoon, and 1200 mg in evening. Call if any side effects or seizures get worse I phoned caregiver and instructed on above. New prescription generated for provider review and signature. Caregiver agrees with plan and verbalizes understanding. * Telephone Encounter - Mita Win RN - 09/03/2015 3:13 PM EST Last visit 08/11/15 Next visit 11/11/15 Caregiver Lulu phoned. Pt's banzel was increased not to long ago to 800 mg TID. Caregiver left message stating that she has noticed improvement with this increase but wonders if it can be increased a little more. She states that she is still requiring ativan every day. She states that she is having 2-3 second whole body jerks but if she doesn't give her an ativan she goes into a grand mal seizure. Current Outpatient Prescriptions on File Prior to Visit Medication Sig Dispense Refill ??? rufinamide (BANZEL) 400 mg Tablet Take 2 tablets by mouth 3 times daily. 180 tablet 5 ??? LORazepam (ATIVAN) 1 mg Tablet Take 1-2 tablets at onset of seizure symptoms, if ineffective after 30 minutes may repeat dose. If still not effective please call neurologist kapok and cotton machine operator. No more [id number] daily. 30 tablet 3 ??? diaZEPam (DIASTAT ACUDIAL) 12.5-15-17.5-20 [...] to visit. Plan: I will forward to covering provider Sarah Serra APRN for review/recommendation. documented in this encounter Plan of Treatment Upcoming Encounters Date Type Department Care Team (Late st Contact Info) Description 08/06/2024 11:00 AM EST Office [place] [address] Sarah Serra APRN [facility] [place] [address] documented as of this encounter Visit Diagnoses Not on filedocumented in this encounter Care Teams Access Manager Relationship Specialty Start Date End Date Cee Escobar MD [address] [place] [address] PCP - General 06/29/10 06/23/16 documented as of this encounter
--- OUTSIDE RECORDS SUMMARY | 2024-06-28 22:04 | XMS_ITS | Encounter Summary ---
[place] [address] Care Team Providers Care Iap Displays Analyst Name Role Phone Cee Escobar MD Primary Care Provider [phone] Reason for Visit * Reason Onset Date Comments Medication Refill 06/09/2015 Encounter Details Date Type Department Care Team (Late st Contact Info) Description 06/09/2015 Refill [place] [phone] Terri Hsu [facility] [place] [address] Social History Tobacco Use Types Packs/Day Years [...] 11:00 AM EST Office [place] [phone] Sarah Serra WATER SKI ASSEMBLER [facility] [place] [address] documented as of this encounter Visit Diagnoses Not on filedocumented in this encounter Care Teams Iap Displays Analyst Relationship Specialty Start Date End Date Cee Escobar MD [address] [place] [address] PCP - General 06/29/10 06/23/16 documented as of this encounter
--- OUTSIDE RECORDS SUMMARY | 2024-06-28 22:04 | XMS_ITS | Encounter Summary ---
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
--- OUTSIDE RECORDS SUMMARY | 2024-06-28 22:04 | XMS_ITS | Encounter Summary ---
[place] [address] Care Team Providers Care Magnet Maker Name Role Phone Luis Manuel Blanca MD Primary Care Provider [phone] Reason for Visit * Reason Comments Medication Refill Encounter Details Date Type Department Care Team (Late st Contact Info) Description 07/27/2015 [place] [address] [facility] [place] [address] Social History Tobacco Use Types Packs/Day Years [...] AM EST Office [place] [phone] Sarah Serra [facility] [place] [address] documented as of this encounter Goals Goal [...] on filedocumented in this encounter Care Teams Magnet Maker Relationship Specialty Start Date End Date Luis Manuel Blanca MD [address] [place] [address] [address] [facility] [address] [place] [address] PCP - General Family Medicine 06/24/16 documented as of this encounter
--- OUTSIDE RECORDS SUMMARY | 2024-06-28 22:04 | XMS_ITS | Encounter Summary ---
Author Organization [facility] [place] [address] Care Team Providers Care Machine Setter And Repairer Name Role Phone Cee Escobar MD Primary Care Provider [phone] Encounter Details Date Type Department Care Team (Late st Contact Info) Description 08/11/2015 3:30 PM EST [place] [address] Terri Hsu APRN [facility] [place] [address] High risk medication use; Intractable Niels[place]-Gastaut syndrome without status epilepticus Social History Tobacco [...] Sign Reading Time Taken Comments Blood Pressure 138/74 08/11/2015 3:14 PM EST Pulse 74 08/11/2015 3:14 PM EST Temperature - - Respiratory Rate - - Oxygen Saturation - - Inhaled Oxygen Concentration - - Weight 68 kg (150 lb) 08/11/2015 3:14 PM EST Height 147.3 cm (4' 10) 08/11/2015 3:14 PM EST Body Mass Index 31.35 08/11/2015 3:14 PM EST documented in this encounter Progress Notes * Terri Hsu, SHUTTLE OPERATOR - 08/11/2015 3:50 PM EST Subjective: [facility] OUTPATIENT FOLLOW [...] have seizures and was crossed over to Banzel via multiple phone conversations. Interval history Since starting Banzel, she has had some improvements in seizure control however she is not seizure free. The seizures are not as intense. Her GI issues have improved. Unfortunately, she broke her right leg during a seizure. She has an immobilization cast on. She cannot weight bear and has to be transferred with a matthias lift. This has caused additional problems with caring for her. Otherwise she is about the same. She had a seizure in the middle of the night last night and had to be given the PRN medication. She then has been sleepy all day. She was not her usual talkative self today. Social History: History Social History ??? Marital [...] ??? Not on file Social History Narrative Seizure Control: QEpilepsy 08/27/2014 Last seizure was: Within past year Number of seizures in past month: 0 Were seizures disabling? No Social Factors: QEPILEPSY SOCIAL FACTORS 08/27/2014 Employment [...] If still not effective please call neurologist economics analyst. No more [id number] daily. 30 tablet 3 ??? rufinamide (BANZEL) 400 mg Tablet Take 800 mg in am, take 400 mg at lunch, and take 800 mg at night 150 tablet 0 ??? diaZEPam (DIASTAT ACUDIAL) 12.5-15-17.5-20 mg Kit [...] 40 mg by mouth daily. ??? [DISCONTINUED] HYDROcodone-acetaminophen (NORCO) 5-325 mg Tablet Take 1 tablet by mouth 4 timesdaily as needed for Pain. ??? [DISCONTINUED] zonisamide (ZONEGRAN) 100 mg Capsule Take 3 capsules by mouth nightly. 90 capsule 5 ??? [DISCONTINUED] furosemide (LASIX) 40 mg tablet Take 40 mg by mouth daily. No current facility-administered medications on file prior to visit. Allergies Allergen Reactions ??? Amoxicillin-Pot Clavulanate Rash ??? Risedronate Sodium Nausea And Vomiting Objective: Blood pressure 138/74, pulse 74, height 147.3 cm (4' 10), weight 68.04 kg (150 lb). Awake but sleepy appearing, intermittently says brief repetitive words of phrases, sitting in wheelchair, interacting with caregiver and provider, can follow some simple commands, mood is good. VNS interrogated, parameters as found below: Output current: 2.0 milliamps Signal frequency: 20 Hertz Pulse Width:500 microseconds On time:21 sec Off time:1.8 min Magnet current:2.25 milliamps Pulse Width:500 microseconds Systems diagnostics normal. Battery half full, no changes made. Assessment and Plan: - Epilepsy: She has had a roland course in terms of seizures and med changes. She had done so well on the combination of trileptal, depakote and lamictal however had to taper depakote due to GI issuesand bleeding. Her anemia has improved and endoscopy has improved as well. Seems to be tolerating Banzel. Will increase the dose to 800mg TID to see if we can get better seizure control. She is having less seizures now. - Screen for medication toxicity: labs today. - The patient is currently not a candidate for epilepsy surgery. - Bone health: Pt is currently taking Vitamin D. Pt had a recent fracture in her leg. Should check a DEXA in the near future. - Social and psychiatric issues: Improved as above. - Caregiver counselled about medication use, benefit and side effects. - Patient will be seen again by the epilepsy team in 3 months - Caregiver verbalizes understanding and agrees with plan. documented in this encounter Plan of Treatment Upcoming Encounters Date Type Department Care Team (Late st Contact Info) Description 08/06/2024 11:00 AM EST [place] [address] Sarah Serra APRN [facility] [place] [address] documented as of this encounter Procedures Procedure Name Priority Date/Time Associated Diagnosis Comments RUFINAMIDE LEVEL Routine 08/11/2015 4:32 PM EST HEMOGRAM Routine 08/11/2015 4:32 PM EST High risk medication use COMPREHENSIVE METABOLIC PANEL Routine 08/11/2015 4:32 PM EST High risk medication use documented in this encounter Results * Rufinamide Level (08/11/2015 4:32 PM EST) Rufinamide Level (DECEMBER) 10.6 5.0 - 30.0 mcg/mL [facility] Comment: Test Performed by: [place] [address] Meter Maintenance Person: Alok Mata II, M.D., Ph.D. Blood specimen (specimen) Venous Draw / Unknown 08/11/2015 4:32 PM EST 08/12/2015 8:15 AM EST Narrative Resulting Agency Comment Spec In Lab Terri Hsu APRN LAB SEND OUT ORDERAB LES [facility] * (ABNORMAL) Comprehensive metabolic panel (non-fasting) (08/11/2015 4:32 PM EST) Glucose 103 65 - 199 mg/dL [facility] Comment:Diabetes: >=200 mg/d L plus symptoms Blood Urea Nitrogen 11 8 - 18 mg/dL [facility] Creatinine 0.52(L) 0.70 - 1.20 mg/dL [facility] Comment: Please note that the pediatric reference intervals supplied above were not validated at [facility] Results from pediatric patients should be interpreted in conjunction to the patient's age, height and muscle mass. Sodium 141 135 - 145 mmol/L [facility] Potassium 3.8 3.5 - 5.0 mmol/L [facility] Comment: Please note: ??Patients with WBC >100,000 may have falsely elevated Potassium levels. ??For accurate Potassium quantification in these patients send serum separator tube (gold top) for subsequent determinations. ??Contact the Clinical Chemistry Laboratory if there are any questions. Chloride 101 98 - 107 mmol/L [facility] Carbon Dioxide 24 22 - 31 mmol/L [facility]ILL[facility] Anion Gap 16(H) 5 - 15 mmol/L [facility]ILL[facility] Calcium 8.9 8.5 - 10.5 mg/dL [facility] Protein, Total 6.9 6.1 - 8.0 gm/dL [facility]ILL[facility]NI[facility] Albumin 4.2 3.2 - 5.2 gm/dL [facility] Aspartate Aminotransferase 15 0 - 30 unit/L [facility] Alanine Aminotransferase 21 0 - 30 unit/L [facility]ILL[facility] Alkaline Phosphatase 179(H) 40 - 104 unit/L [facility]ILLENNI[facility] Bilirubin, Total <0.2(L) 0.2 - 1.3 mg/dL [facility] Bilirubin, Direct 0.1 0.0 - 0.3 mg/dL [facility] Est Glomerular Filtration Rate >60 >=60 [facility]ILL[facility] Comment: This estimated GFR (eGFR) value was [...] the following links into your internet browser. [email or web address] Blood specimen (specimen) 08/11/2015 4:32 PM EST 08/11/2015 4:37 PM EST Narrative Resulting Agency Comment Spec In Lab Shashi Mckee MD CHEMISTRY ORDERABLES [facility] * Hemogram (08/11/2015 4:32 PM EST) White Blood Cell 5.8 4.0 - 10.0 x10(3)/mcL [facility] Red Blood Cell 4.97 3.93 - 5.22 x10(6)/mcL [facility] Hemoglobin 14.0 11.2 - 15.7 gm/dL [facility]ILL[facility] Hematocrit 41.5 34.0 - 45.0 % [facility] MILLENNIUM Mean Cell Volume 83.5 79.0 - 94.0 fL [facility] MILLENNIUM Mean Cell Hemoglobin 28.2 26.6 - 32.2 pg [facility] MILLENNIUM Mean Cell Hemoglobin Concentration 33.7 32.0 - 36.5 gm/dL [facility] MILLENNIUM Platelet 218 145 - 370 x10(3)/mcL [facility] MILLENNIUM RDW Standard Deviation 39.5 35.0 - 46.0 fL [facility]ILLENNI[facility] RDW coefficient of variation 13.2 10.9 - 14.4 % [facility] MILLENNIUM Mean Platelet Volume 10.4 9.0 - 12.0 fL [facility]ILL[facility] Blood specimen (specimen) 08/11/2015 4:32 PM EST 08/11/2015 4:37 PM EST Narrative Resulting Agency Comment Spec In Lab Shashi Mckee MD HEMATOLOGY ORDERABLE S IMELDA VICK documented in this encounter Visit Diagnoses Diagnosis High risk medication use Encounter for long-term (current) use of other medications Intractable [place]iels[place]-Gastaut syndrome without status epilepticus documented in this encounter Care Teams Machine Setter And Repairer Relationship Specialty Start Date End Date Cee Escobar MD [address] [place] [address] PCP - General 06/29/10 06/23/16 documented as of this encounter
--- OUTSIDE RECORDS SUMMARY | 2024-06-28 22:04 | XMS_ITS | Encounter Summary ---
[place] [address] Care Team Providers Care Meat Processing Center Manager Name Role Phone Cee Escobar MD Primary Care Provider [phone] Reason for Visit * Reason Onset Date Comments Medication Refill 06/01/2015 Encounter Details Date Type Department Care Team (Late st Contact Info) Description 06/01/2015 Ref[place] [address] Terri Hsu [facility] [place] [address] Social History Tobacco Use Types Packs/Day Years [...] AM EST Office [place] [address] Sarah Serra [facility] [place] [address] documented as of this encounter Visit Diagnoses Not on filedocumented in this encounter Care Teams Meat Processing Center Manager Relationship Specialty Start Date End Date Cee Escobar MD [address] [place] [address] PCP - General 06/29/10 06/23/16 documented as of this encounter
--- OUTSIDE RECORDS SUMMARY | 2024-06-28 22:04 | XMS_ITS | Encounter Summary ---
Author Organization [facility] [place] [address] Care Team Providers Care Special Investigation Unit Investigator Name Role Phone Cee Escobar MD Primary Care Provider [phone] Reason for Visit * Reason Onset Date Comments Other 06/09/2015 Encounter Details Date Type Department Care Team (Late st Contact Info) Description 06/09/2015 [place] [address] Terri Hsu APRN [facility] [place] [address] Other Social History Tobacco Use Types Packs/Day [...] Telephone Encounter - Mita Win RN - 06/09/2015 4:48 PM EST Terri Hsu has reviewed and has instructed on banzel titration and zonegran taper schedule: Banzel Titration and Zonegran Taper Week 1 Take Banzel 400mg in AM and PM Reduce Zonegran to 200mg in PM Week 2 Take Banzel 400mg in AM and 800m in PM Keep zonegran at 200mg in PM Week 3 Take Banze 800mg in AM and 800mg in PM Reduce Zonegran to 100mg in PM Week 4 Take Banzel 800mg in AM, 400mg in afternoon and 800mg in PM Stop zonegran Stay on this dose of Banzel and we will adjust as needed. I phoned caregiver and reviewed above instruction per Terri Hsu. Will also mail out written copyto caregiver. Caregiver verbalizes understanding and agrees with plan. * Telephone Encounter - Mita Win RN - 06/09/2015 4:11 PM EST Caregiver Lulu phoned. States she has the banzel prescription for 1 - 200 mg tablet twice a day. She stated she thought that pt would be tapering off the zonegran while starting the banzel (she states that is what she thought Terri told her). I did explain that sometimes they won't taper one medication until the other has started but that Iwould forward to Terri Hsu APRN for review/recommendation. Plan: as above - will forward to Terri Hsu for review. documented in this encounter Plan of Treatment Upcoming Encounters Date Type Department Care Team (Late st Contact Info) Description 08/06/2024 11:00 AM EST [place] [address] Sarah Serra APRN [facility] [place] [address] documented as of this encounter Visit Diagnoses Not on filedocumented in this encounter Care Teams Special Investigation Unit Investigator Relationship Specialty Start Date End Date Cee Escobar MD [address] [place] [address] PCP - General 06/29/10 06/23/16 documented as of this encounter
--- OUTSIDE RECORDS SUMMARY | 2024-06-28 22:04 | XMS_ITS | Encounter Summary ---
[place] [address] Care Team Providers Care Cell Reliner Name Role Phone Cee Escobar MD Primary Care Provider [phone] Reason for Visit * Reason Onset Date Comments Medication Refill 05/01/2015 Encounter Details Date Type Department Care Team (Late st Contact Info) Description 05/01/2015 [place] [address] Shashi Mckee MD [facility] [place] [address] Social History Tobacco Use Types Packs/Day Years [...] 11:00 AM EST [place] [address] Sarah Serra APRN [facility] [place] [address] documented as of this encounter Visit Diagnoses Not on filedocumented in this encounter Care Teams Cell Reliner Relationship Specialty Start Date End Date Cee Escobar MD [address] [place] [address] PCP - General 06/29/10 06/23/16 documented as of this encounter
--- OUTSIDE RECORDS SUMMARY | 2024-06-28 22:04 | XMS_ITS | Encounter Summary ---
[place] [address] Care Team Providers Care Resident Caregiver Name Role Phone Cee Escobar MD Primary Care Provider [phone] Reason for Visit * Reason Onset Date Comments Medication Refill 02/03/2015 Encounter Details Date Type Department Care Team (Late st Contact Info) Description 02/03/2015 [place] [address] Estrella Medina CMA Medication Refill Social History Tobacco Use Types [...] encounter Miscellaneous Notes * Telephone Encounter - Estrella Medina CMA - 02/03/2015 11:48 AM EDT Rx for ativan faxed to requested pharmacy. documented in this encounter Plan of Treatment Upcoming Encounters Date Type Department Care Team (Late st Contact Info) Description 08/06/2024 11:00 AM EST [place] [address] Sarah Serra APRN [facility] [place] [address] documented as of this encounter Visit Diagnoses Not on filedocumented in this encounter Care Teams Resident Caregiver Relationship Specialty Start Date End Date Cee Escobar MD [address] [place] [address] PCP - General 06/29/10 06/23/16 documented as of this encounter
--- OUTSIDE RECORDS SUMMARY | 2024-06-28 22:04 | XMS_ITS | Encounter Summary ---
Author Organization [facility] [place] [address] Care Team Providers Care Wood Window And Door Craftsman Name Role Phone Cee Escobar MD Primary Care Provider [phone] Reason for Visit * Reason Onset Date Comments Other 07/14/2015 Encounter Details Date Type Department Care Team (Late st Contact Info) Description 07/14/2015 Telephone [place] [phone] Terri Hsu APRN [facility] [place] [place] [address] Other Social History Tobacco Use Types Packs/Day [...] Telephone Encounter - Mita Win RN - 07/14/2015 5:49 PM EST Per Terri Hsu APRN: We can post pone for a few weeks. I phoned and spoke with caregiver Lulu and reviewed above. I will ask nursing secretary to phone caregiver tomorrow to reschedule. Caregiver instructed to call clinic to reschedule if she doesn't get call by mid morning. Lulu agrees with plan and verbalizes understanding. Message sent to nursing secretary to phone caregiver and Reschedule. * Telephone Encounter - Mita Win RN - 07/14/2015 11:12 AM EST Last visit 04/01/15 Next visit 07/15/15 Caregiver Lulu phoned and left message on triage line. She states that pt is scheduled for follow visit tomorrow 07/15/15 with Terri. She states that pt has a broken leg (caused by her seizures). She is increasing the banzel back to the 800 mg bid as instructed. She states it is very difficult right now to get pt out as it hurts her leg to sit in her wheelchair. Lulu wants to know if Luis Alberto needs to see pt tomorrow in clinic. She states that if she does still need to come tomorrow she will do what she can to get her here. Plan: I will forward to Terri Shadi for review/recommendation. documented in this encounter Plan of Treatment Upcoming Encounters Date Type Department Care Team (Late st Contact Info) Description 08/06/2024 11:00 AM EST Office [place] [address] Sarah Serra APRN [facility] [place] [address] documented as of this encounter Visit Diagnoses Not on filedocumented in this encounter Care Teams Wood Window And Door Craftsman Relationship Specialty Start Date End Date Cee Escobar MD [address] [place] [address] PCP - General 06/29/10 06/23/16 documented as of this encounter
--- OUTSIDE RECORDS SUMMARY | 2024-06-28 22:04 | XMS_ITS | Encounter Summary ---
Author Organization [facility] [place] [address] Care Team Providers Care Panel Edge Painter Name Role Phone Cee Escobar MD Primary Care Provider [phone] Reason for Visit * Reason Onset Date Comments Other 05/29/2015 Encounter Details Date Type Department Care Team (Late st Contact Info) Description 05/29/2015 Telephone [place] [phone] Terri Hsu APRN [facility] [place] [address] Other Social History Tobacco Use Types Packs/Day [...] Telephone Encounter - Mita Win RN - 06/01/2015 1:53 PM EDT Terri Hsu spoke with patient and will start banzel. Caregiver Lulu phoned and states that her pharmacy can't get the banzel. Lulu instructed to call around to local pharmacies to see if they will be able to get it and then call back with update. We can send rx to another pharmacy if necessary. Lulu aware if she is able to get this that it may require a prior authorization which cantake up to a week or more to obtain. Will await pt call back. * Telephone Encounter - Mita Win RN - 05/29/2015 3:47 PM EDT Per Terri Hsu: We can try replacing oxcarbazepine with Oxtellar to see if we can get better control. She was at the top of the range for her level at her last visit. The other option is to add Banzel then taper off of zonegran since it has not helped. I phoned caregiver and spoke with Lulu and reviewed above per Terri. Lulu would like to addbanzel and taper off the zonegran. Lulu informed that PA for diastat has been initiated but this can take up to 72 hours sometimes longer for response. Caregiver verbalizes understanding. Plan: I will forward to Terri to advise on dosing of banzel and tapering off instructions for zonegran and get back in contact with caregiver. Caregiver instructed to call back for further changes/concerns and instructed how to contact neurologist writer technical publications after hours. * Telephone Encounter - Mita Win RN - 05/29/2015 11:25 AM EDT Breakthrough Seizure Last Appointment: Last visit 04/01/15 Next Appointment: Next visit 06/25/15 Primary Question/ Concern Today: Pt still having frequent seizures. Caregiver reports a couple seizures a week (she states it is a flurry of them. Last night a total of 1 1/2 hours). On Monday she had diastat ; on Monday she had vomiting. pcp was phoned for vomiting and ordered labs. Per caregiver she is no longer anemic and WBC is goo. On she had more seizures and they gave her ativan 3 mg as they are out of diastat which needs PA. Caregiver not sure what should be done regarding medications at this time. Will also work on rose PA. REPORT ON CURRENT CONCERN: (for any positive response note explanation) ??? Date and Time of seizure(s): couple a seizures a week ??? Description of seizure(s): arms and legs jerk and face goes sideways and eyes bug out ??? Length of seizure(s):30-60 with a few minutes in between and then start over ??? Was seizure precipitated by anything: ??? Any injury from the seizure: No ??? Was this typical seizure activity : No If no please explain: arm jerking and arm flutter usually start prior to seizure but she has not had warnings with recent seizures. When was last seizure(s) prior to today: ??? Recent missed doses of medication: No If yes please explain: ??? Any rescue medications used: diastat, ativan If yes please note what was used and outcome: seizures stopped it did take the ativan longer to stop ??? Are any seizure medications generic: If yes please note: phenobarb, zonegeran If yes any recent business development recruiter change: No ??? Last Drug levels: 04/01/15 zonegran level 15, oxcarbazepine 38 ??? Current Weight: Current Medications: Outpatient Prescriptions Marked as Taking for the 05/29/15 encounter (Telephone) with John Hsu APRN Medication Sig Dispense Refill ??? diaZEPam (DIASTAT ACUDIAL) 12.5-15-17.5-20 mg Kit [...] If still not effective please call neurologist writer technical publications. No more [id number] daily. 30 tablet 3 ??? loratadine (CLARITIN) [...] Any new worries, stressors, or routine changes: ??? Any recent Illness/Injuries/Surgeries: ??? Any additional Information to relay to [...] 11:00 AM EST Office [place] [address] Sarah Serra APRN [facility] [place] [address] documented as of this encounter Visit Diagnoses Not on filedocumented in this encounter Care Teams Panel Edge Painter Relationship Specialty Start Date End Date Cee Escobar MD [address] [place] [address] PCP - General 06/29/10 06/23/16 documented as of this encounter
--- OUTSIDE RECORDS SUMMARY | 2024-06-28 22:04 | XMS_ITS | Encounter Summary ---
Author Organization [facility] [place] [address] Care Team Providers Care Still Runner Name Role Phone Cee Escobar MD Primary Care Provider [phone] Reason for Visit * Reason Onset Date Comments Other 11/30/2015 PRIOR AUTHORIZAT ION FOR ONFI Encounter Details Date Type Department Care Team (Late st Contact Info) Description 11/30/2015 [place] [phone] Terri Hsu APRN [facility] [place] [address] Other (PRIOR AUTHORIZATION FOR ONFI) Social History Tobacco Use Types Packs/Day Years [...] Encounter - Mita Win RN - 11/30/2015 4:30 PM EDT [facility] customer care # [phone] * Telephone Encounter - Mita Win RN - 11/30/2015 12:06 PM EDT Prior authorization required for ONFI 10 mg daily # 30 tablets per 30 days Insurance: NOAM Peña: patient's ID # [id number] The plan is Medicare D.? I spoke with NOAM Peña front desk representative and answered her questions Onfi APPROVED 09/01/15-11/29/18 CASE/PRIOR AUTHORIZATION # [id number] Pharmacy notified of approval I attempted to phone caregiver. Message left on voice mail of approval. documented in this encounter Plan of Treatment Upcoming Encounters Date Type Department Care Team (Late st Contact Info) Description 08/06/2024 11:00 AM EST [place] [address] Sarah Serra [facility] [place] [address] documented as of this encounter Visit Diagnoses Not on filedocumented in this encounter Care Teams Still Runner Relationship Specialty Start Date End Date Cee Escobar MD [address] [place] [address] PCP - General 06/29/10 06/23/16 documented as of this encounter
--- OUTSIDE RECORDS SUMMARY | 2024-06-28 22:04 | XMS_ITS | Encounter Summary ---
Author Organization [facility] [place] [address] Care Team Providers Care Shove Up Name Role Phone Cee Escobar MD Primary Care Provider [phone] Encounter Details Date Type Department Care Team (Late st Contact Info) Description 12/31/2014 2:15 PM EDT [place] [address] Terri Hsu APRN [facility] [place] [address] Redding-Gastaut syndrome, intractable, without status epilepticus; Acquired hemolytic anemia; Anemia, iron deficiency Discharge Disposition: Home Social History Tobacco Use [...] Sign Reading Time Taken Comments Blood Pressure 118/66 12/31/2014 2:33 PM EDT Pulse 105 12/31/2014 2:33 PM EDT Temperature - - Respiratory Rate - - Oxygen Saturation - - Inhaled Oxygen Concentration - - Weight 72.6 kg (160 lb) 12/31/2014 2:33 PM EDT Height 147.3 cm (4' 10) 12/31/2014 2:33 PM EDT Body Mass Index 33.44 12/31/2014 2:33 PM EDT documented in this encounter Progress Notes * Terri Hsu, NUCLEAR PROCESS ENGINEER - 12/31/2014 3:06 PM EDT Subjective: [facility] OUTPATIENT FOLLOW UP NOTE Patient Active Problem List Diagnosis ??? Epilepsy ??? Sleep apnea ??? Mental retardation I saw Cinthya Brown today for a scheduled follow-up evaluation. 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 We tried to taper as an outpatient but she began having too many seizures and we wanted to complete this as safely as possible. She had several tonic and tonic clonic seizures with generalized onset. She had some encephalopathy and then had her dosage of phenobarbital increased which helped normalize the EEG somewhat. Since discharge, she has been having a cluster of small tonic seizures per week with end with a grand mal type seizure. Recently she had a larger event that lasted over 5 minutes. Most of the seizures are brief tonic arm extensions but sometimes they can progress. Her home provider is going on vacation and very worried about leaving her with respite. Social History: History Social History ??? Marital [...] to Visit Medication Sig Dispense Refill ??? loratadine (CLARITIN) [...] Sodium Nausea And Vomiting Objective: Blood pressure 118/66, pulse 105, height 147.3 cm (4' 10), weight 72.576 kg (160 lb). Awake, alert. She has an odd type rash on her arms and face which she has had for a long time. It is redness under the skin. No raised areas nor itching associated with it. Her skin is very dry. Neurologic Exam: alert. Able to say brief words on occasion. She repeats words often. Sitting in wheelchair. She was quite interactive today. VNS parameters: I interrogated the device and it is working well. No impedence noted. I increased the parameters to the following settings. Output current: 2.0 milliamps Signal frequency: 20 Hertz Pulse Width:500 microseconds On time:21 sec Off time:1.8 min Magnet current:2.25 milliamps Pulse Width:500 microseconds Assessment and Plan: - Epilepsy: Had trouble [...] by the epilepsy team in 3 months documented in this encounter Plan of Treatment Upcoming Encounters Date Type Department Care Team (Late st Contact Info) Description 08/06/2024 11:00 AM EST Office [place] [address] Sarah Serra APRN [facility] [place] [address] documented as of this encounter Procedures Procedure Name Priority Date/Time Associated Diagnosis Comments IRON AND TIBC Routine 12/31/2014 3:34 PM EDT Acquired hemolytic anemia Anemia, iron deficiency OXCARBAZEPINE METABOLITE ([facility]) Routine 12/31/2014 3:34 PM EDT Redding-Gastaut syndrome, intractable, without status epilepticus PHENOBARBITAL LEVEL Routine 12/31/2014 3 :34 PM EDT Guillaume-Gastaut syndrome, intractable, without status epilepticus documented in this encounter Results * Phenobarbital level (12/31/2014 3:34 PM EDT) Phenobarbital 36.1 15.0 - 40.0 mg/L [facility] Comment: Therapeutic Range: ??15-40 mg/L Toxic: ??> 50 mg/L Blood specimen (specimen) 12/31/2014 3:34 PM EDT 12/31/2014 3:45 PM EDT Narrative Resulting Agency Comment Spec In Lab Shashi Mckee MD CHEMISTRY ORDERABLES [facility] * (ABNORMAL) Oxcarbazepine Metabolite (MHC) (12/31/2014 3:34 PM EDT) Oxcarbazep Met ([facility]) (DECEMBER) 39(H) 3 - 35 mcg/mL [facility] Comment: Test Performed by: [address] [address] Electrical Designer: Alok Mata II, M.D., Ph.D. Blood specimen (specimen) 12/31/2014 3:34 PM EDT 01/01/2015 8:51 AM EDT Narrative Resulting Agency Comment Spec In Lab Shashi Mckee MD LAB SEND OUT ORDERAB LES [facility] * Iron and TIBC (12/31/2014 3:34 PM EDT) Iron 111 30 - 150 mcg/dL [facility] TIBC 387 250 - 450 mcg/dL [facility] Iron Saturation 29 20 - 50 % [facility] Blood specimen (specimen) 12/31/2014 3:34 PM EDT 12/31/2014 3:44 PM EDT Narrative Resulting Agency Comment Spec In Lab Shashi Mckee MD CHEMISTRY ORDERABLES [facility] documented in this encounter Visit Diagnoses Diagnosis Redding-Gastaut syndrome, intractable, 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
--- OUTSIDE RECORDS SUMMARY | 2024-06-28 22:04 | XMS_ITS | Encounter Summary ---
Author Organization [facility] [place] [address] Care Team Providers Care Saw Repairer Name Role Phone Cee Escobar MD Primary Care Provider [phone] Encounter Details Date Type Department Care Team (Late st Contact Info) Description 07/09/2015 [place] [address] Terri Hsu [address]N [facility] [place] [address] Social History Tobacco Use Types Packs/Day Years [...] Telephone Encounter - Mita Win RN - 07/10/2015 2:[address] Lund covering provider reviewed and okay for pt to have the ativan/pain medication. Caregiver will still use with caution. Caregiver states she is actually on vicodin 5-325 mg 1 tablet 4 timesa day prn. Caregiver instructed to call if any changes/concerns and aware of how to contact on callphysician after hours. * Telephone Encounter - Mita Win RN - 07/10/2015 11:28 AM EST Terri Hsu APRN reviewed okay to increase banzel back up to 800 mg bid. I phoned caregiver Lulu back and instructed her per Terri Hsu okay to increase Banzel back to 800 mg bid. Caregiver also states that pt is on tylenol with codeine and can take 1 tablet up to 4times a day. She could not tell me the strength but will call me back. She is concerned about giving pt the tylenol with codeine and lorazepam. Caregiver instructed to try not to give the two medications together and monitor pt. Caregiver instructed if any concerns at all to call office and caregiver instructed how to contact neurologist mining consultant after hours (call main # [phone] and ask for neurologist mining consultant to be paged). Plan; as above and caregiver agrees with plan and verbalizes understanding. * Telephone Encounter - Angi Amato RN - 07/09/2015 3:54 PM EST Patient's caregiver, Lulu called in today with an update since the banzel was decreased last week, due to the patient having trouble with walking. As it turns out the patient has a broken leg andthis is the reason for her not walking. Lulu is wondering if they can now increase the medication back to the previous dose as her seizures have increased since decreasing it. Plan: I will forward this message on to Terri Hsu APRN for review and recommendation. documented in this encounter Plan of Treatment Upcoming Encounters Date Type Department Care Team (Late st Contact Info) Description 08/06/2024 11:00 AM EST Office [place] [address] Sarah Serra [address]N [facility] [address] documented as of this encounter Visit Diagnoses Not on filedocumented in this encounter Care Teams Saw Repairer Relationship Specialty Start Date End Date Cee Escobar MD [address] [place] [address] PCP - General 06/29/10 06/23/16 documented as of this encounter
--- OUTSIDE RECORDS SUMMARY | 2024-06-28 22:04 | XMS_ITS | Encounter Summary ---
[place] [address] Care Team Providers Care Creative Art Director Name Role Phone Cee Escobar MD Primary Care Provider [phone] Reason for Visit * Reason Onset Date Comments Medication Refill 10/05/2015 Encounter Details Date Type Department Care Team (Late st Contact Info) Description 10/05/2015 [place] [address] Terri Hsu [facility] [place] [address] Epilepsy seizure, generalized, convulsive Social History Tobacco [...] 11:00 AM EST Office [place] [phone] Sarah Serra [employer] [facility] [place] [address] documented as of this encounter Visit Diagnoses Diagnosis Epilepsy seizure, generalized, convulsive Generalized convulsive epilepsy without mention of intractable epilepsy documented in this encounter Care Teams Creative Art Director Relationship Specialty Start Date End Date Cee Escobar MD [address] [place] [address] PCP - General 06/29/10 06/23/16 documented as of this encounter
--- OUTSIDE RECORDS SUMMARY | 2024-06-28 22:04 | XMS_ITS | Encounter Summary ---
Author Organization [facility] [place] [address] Care Team Providers Care Rn Provider Relations Name Role Phone Cee Escobar MD Primary Care Provider [phone] Reason for Visit * Reason Onset Date Comments Other 09/21/2015 Encounter Details Date Type Department Care Team (Late st Contact Info) Description 09/21/2015 [place] [phone] Terri Hsu APRN [facility] [address] Other Social History Tobacco Use Types Packs/Day [...] Miscellaneous Notes * Telephone Encounter - Terri Hsu APRN - 09/22/2015 5:01 PM EST I spoke to her caregiver. Will increase Banzel to 1200mg TID. If this does not help, will then see her back in the office to adjust VNS and determine a new medication change. She will call back in 2 weeks with an update. A new prescription was sent to her pharmacy. * Telephone Encounter - Mita Win RN - 09/21/2015 4:25 PM EST Breakthrough Seizure Last Appointment: 08/11/15 Next Appointment: 11/11/15 Primary Question/ Concern Today: Caregiver had phoned 09/03/15 (please see telephone note). banzel was increased at at that time. Caregiver doesn't really feel that has helped. She is still needs to give pt ativan frequently. Last night she gave her diastat and that took about 10 minutes to work. She states pt usually has a seizure at 3 am or 3 pm. She is still receiving ativan frequently. She also states that the seizures are different. She will have whole body jerking which is not new but whenthat stops she will have a blank stare and doesn't respond or do anything. She initially thought ptwas doing better because the seizures seemed to be less but she acted like she did not feel well. At night she acts like she is going to have a seizure ( her eyes will flutter and she shakes). Last night she gave her an ativan after this occurred and at 3 am she had a seizure. Caregiver wonders if pt's medications should be adjusted again or if she needs to be seen in clinic. Report On CURRENT CONCERN: (for any positive response note explanation) ??? Date and Time of seizure(s): 09/21/15 3 AM ??? Description of seizure(s): has her whole body jerking lasting 40 seconds but then she will stopwith eyes open and have blank stare and won't respond ??? Length of seizure(s): 45 seconds to 1 minute ??? Was seizure precipitated by anything: ??? Any injury from the seizure: No ??? Was this typical seizure activity: the body jerking yes but the stopping/staring is not typical If no please explain: ??? When was last seizure(s) prior to today: having some form of activity every day (eyes fluttering, hand jerking, blank stare, body jerking) ??? Recent missed doses of medication: No If yes please explain: ??? Any rescue medications used: Ativan and diastat If yes please note what was used and outcome: last night it took more than 10 minutes for the diastat to work ??? Are any seizure medications generic: If yes please note: If yes any recent hanger change: ??? Last Drug levels: 08/11/15 rufinamide level 10.6 ; 12/31/14 phenobarbital level 36.1 ; 04/01/15 trileptal level 38 ??? Current Weight: Current Medications: Outpatient Prescriptions Marked as Taking for the 09/21/15 encounter (Telephone) with Terri Hsu APRN Medication Sig Dispense Refill ??? rufinamide (BANZEL) 400 mg Tablet Take 1200 mg in am, 800 mg in afternoon, and 800 mg in evening; In one week increase to 1200 mg in am, 800 mg in afternoon, and 1200 mg in evening. 240 tablet 1 ??? LORazepam (ATIVAN) 1 mg Tablet Take 1-2 tablets at onset of seizure symptoms, if ineffective after 30 minutes may repeat dose. If still not effective please call neurologist colon and rectal surgeon. No more pdsr2et daily. 30 tablet 3 ??? diaZEPam (DIASTAT [...] or routine changes: No ??? Any recent Illness/Injuries/Surgeries:No ??? Any additional Information to relay to [...] EST Office [place] [address] Sarah Serra APRN [facility] [place] [address] documented as of this encounter Visit Diagnoses Not on filedocumented in this encounter Care Teams Rn Provider Relations Relationship Specialty Start Date End Date Cee Escobar MD [address] [place] [address] PCP - General 06/29/10 06/23/16 documented as of this encounter
--- OUTSIDE RECORDS SUMMARY | 2024-06-28 22:04 | XMS_ITS | Encounter Summary ---
Author Organization [facility] [place] [address] Care Team Providers Care Baking Powder Mixer Name Role Phone Cee Escobar MD Primary Care Provider [phone] Reason for Visit * Reason Onset Date Comments Medication Refill 08/05/2015 Encounter Details Date Type Department Care Team (Late st Contact Info) Description 08/05/2015 [place] [phone] Terri Hsu APRN [facility] [place] [address] Epilepsy seizure, generalized, convulsive Social History Tobacco [...] Telephone Encounter - Mita Win RN - 08/05/2015 10:29 AM EST Prescription for lorazepam LORazepam (ATIVAN) 1 mg Tablet 30 tablet 3 08/05/2015 Sig: Take 1-2 tablets at onset of seizure symptoms, if ineffective after 30 minutes may repeat dose. If still not effective please call neurologist slot key person. No more than 4mg daily. Class: Phone In MARY: No Approved by Terri Hsu APRN and phoned to requested pharmacy 08/05/15 at 10:29 pm. 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
--- OUTSIDE RECORDS SUMMARY | 2024-06-28 22:04 | XMS_ITS | Encounter Summary ---
[place] [address] Care Team Providers Care Radio Script Writer Name Role Phone Cee Escobar MD Primary Care Provider [phone] Reason for Visit * Reason Onset Date Comments Medication Refill 02/02/2015 Encounter Details Date Type Department Care Team (Late st Contact Info) Description 02/02/2015 [place] [phone] Terri Hsu [facility] [place] [address] Social History Tobacco Use Types Packs/Day Years [...] 11:00 AM EST Office [place] [phone] Sarah Serra UTILIZATION MANAGEMENT RN [facility] [address] documented as of this encounter Visit Diagnoses Not on filedocumented in this encounter Care Teams Radio Script Writer Relationship Specialty Start Date End Date Cee Escobar MD [address] [place] [address] PCP - General 06/29/10 06/23/16 documented as of this encounter
--- OUTSIDE RECORDS SUMMARY | 2024-06-28 22:04 | XMS_ITS | Encounter Summary ---
Author Organization [facility] [place] [address] Care Team Providers Care Labor Standards Director Name Role Phone Cee Escobar MD Primary Care Provider [phone] Reason for Visit * Reason Onset Date Comments Other 11/13/2015 Encounter Details Date Type Department Care Team (Late st Contact Info) Description 11/13/2015 [place] [phone] Terri Hsu APRN [facility] [place] [address] Other Social History Tobacco Use Types Packs/Day [...] Telephone Encounter - Mita Win RN - 11/13/2015 5:04 PM EDT Terri Hsu reviewed and stated this was fine and that is why she is starting a low dose. I phoned pharmacy and instructed pharmacist per Terri this is okay. Pharmacist thankful for call back. * Telephone Encounter - Kareem Hilario - 11/13/2015 3:54 PM EDT The pharmacy called again regarding this issue. The patient has been calling them as she is anxiousto pick this prescription up. Please call them to clarify. * Telephone Encounter - Nicole Castellano - 11/13/2015 12:31 PM EDT Pharmacy called with a question regarding the prescription for ONFI that was written by Terri Hsu. He states that the nexium that the patient is on increases the active metabolite in the ONFI. Please call and advise. documented in this encounter Plan of Treatment Upcoming Encounters Date Type Department Care Team (Late st Contact Info) Description 08/06/2024 11:00 AM EST [place] [address] Sarah Serra APRN [facility] [place] [address] documented as of this encounter Visit Diagnoses Not on filedocumented in this encounter Care Teams Labor Standards Director Relationship Specialty Start Date End Date Cee Escobar MD [address] [place] [address] PCP - General 06/29/10 06/23/16 documented as of this encounter
--- OUTSIDE RECORDS SUMMARY | 2024-06-28 22:04 | XMS_ITS | Encounter Summary ---
[place] [address] Care Team Providers Care Medic Technician Name Role Phone Cee Escobar MD Primary Care Provider [phone] Reason for Visit * Reason Onset Date Comments Medication Refill 09/22/2015 Encounter Details Date Type Department Care Team (Late st Contact Info) Description 09/22/2015 [place] [address] [address] Hsu [facility] 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
--- OUTSIDE RECORDS SUMMARY | 2024-06-28 22:04 | XMS_ITS | Encounter Summary ---
Author Organization [facility] [place] [address] Care Team Providers Care Masking Machine Feeder Name Role Phone Cee Escobar MD Primary Care Provider [phone] Encounter Details Date Type Department Care Team (Late st Contact Info) Description 04/01/2015 12:45 PM EDT [place] [address] Sarah Serra APRN [facility] [place] [address] Epilepsy seizure, generalized, convulsive; Guillaume-Gastaut syndrome, intractable, without status epilepticus Discharge Disposition: Home Social History Tobacco Use [...] Sign Reading Time Taken Comments Blood Pressure 120/73 04/01/2015 1:00 PM EDT Pulse 85 04/01/2015 1:00 PM EDT Temperature - - Respiratory Rate - - Oxygen Saturation - - Inhaled Oxygen Concentration - - Weight 68.5 kg (151 lb) 04/01/2015 1:00 PM EDT Height 139.7 cm (4' 7) 04/01/2015 1:00 PM EDT Body Mass Index 35.1 04/01/2015 1:00 PM EDT documented in this encounter Patient Instructions * Patient Instructions* Sarah Serra APRN - 04/01/2015 1:37 PM EDT It was nice seeing you today. I am glad your behavior is better off the keppra and on the zonegran. I think you level of seizure control could be better, but since you are having some GI symptoms of unknown origin we will hold off on increasing at this time. Please continue to use ativan for breakthrough. Call in 2 weeks to let us know how you are doing. I would like to see GI symptoms resolve within a week or 2, as i think they are most likely relatedto recent GI virus, if they do not please call our office as well as PCP. We will also obtain labs today to see if zonegran could be contributing as Depakote did in the past. Ideally I would like you to not have to use ativan more that 1-2 times a month (same level of control you previously had with depakote) we have room to go up on zonegran, in the future please call ifyou seem to be using ativan more frequently than this and we will adjust meds. Please go to the lab. We will contact you with any abnormal lab results, if you do not hear from usyou you can assume your results were acceptable. You can access your lab results via uShip or if you would like a hard copy you may call our office in 1-2 weeks. Please contact us if you develop any side effects or if seizure/behavioral symptoms get worse. Clinic hours: Urgent matters after hours/weekends: and ask for the neurologist vegetable scullion. For emergencies call 911. documented in this encounter Progress Notes * Sarah Serra APRN - 04/01/2015 1:11 PM EDT Subjective: [facility] OUTPATIENT FOLLOW UP NOTE [...] last visit and subsequently started on Keppra. Behavioral issues on Keppra, seen in clinic and switched to Zonegran. Interval history: Seizure Control: QEpilepsy 08/27/2014 Last seizure was: Within past year Number of seizures in past month: 0 Were seizures disabling? No Since switching from Keppra to Zonegran. Behavioral issues have resolved. No more shaking. No more waking up in the middle of the night. Had a number of seizures during cross titration including one GTC, then she had the stomach flu 2 weeks ago with a high fever and some increased seizure activity but no GTC sz. She vomiting again on Monday after eating spicy foods and did have 2 more episodes of not wanting to eat, the last time she was this morning when she ate her toast but not the rest of her breakfast. Caregiver notes she hasbeen drinking fine, last time she had all of her major stomach issues (which caused her to discontinue Depakote) she wouldn't drink either. Since starting full dose of zonegran 2 weeks ago (around time of stomach flu) they have had to use ativan 4 times for episodes of eye fluttering and left arm shaking, 1mg ativan given and pt returnedto baseline. No GTC sz. Caregiver aware it takes some time for medication to build up in system, also thinks if patient is still not feeling well from stomach flu this may increase seizure frequency. Would prefer to hold off on increasing dose until we are sure zonegran not contributing to GI upset, although she thinks it is more likely due to flu. Social History: History Social History ??? Marital [...] If still not effective please call neurologist vegetable scullion. No more [id number] daily. 30 tablet 3 ??? zonisamide (ZONEGRAN) 100 mg Capsule For 1 week take 1 capsule nightly, then increase to 2 capsules nightly. (Patient taking differently: Take 100 mg by mouth daily. 2 capsules nightly) 60 capsule 3 ??? loratadine (CLARITIN) 10 mg Tablet [...] 40 mg by mouth daily. ??? [DISCONTINUED] levETIRAcetam (KEPPRA) 500 mg Tablet Take 250 mg by mouth 2 times daily. No current facility-administered medications on file prior to visit. Allergies Allergen Reactions ??? Amoxicillin-Pot Clavulanate Rash ??? Risedronate Sodium Nausea And Vomiting Objective: Physical Exam: Vitals: Temp: -- Heart Rate: [85] Resp: -- BP: (120)/(73) SpO2: -- Awake, alert, of apparent age, well dressed and groomed, intermittently says brief repetitive wordsof phrases, sitting in wheelchair, interacting with caregiver and provider, PERRLA, can follow somesimple commands but not others, comprehension limited, mood is good. Procedure: VNS interrogated, parameters as found below: Output current: 2.0 milliamps Signal frequency: 20 Hertz Pulse Width:500 microseconds On time:21 sec Off time:1.8 min Magnet current:2.25 milliamps Pulse Width:500 microseconds Systems diagnostics normal. Not near end of battery, no changes made. Assessment and Plan: - Epilepsy: Behavior improved since switching from Keppra to Zonegran, continues to have some smallseizures that respond to 1mg ativan, will obtain labs today and wait for GI symptoms to resolve (depakote had to be discontinued in past due to GI concerns) before likely increasing zonegran to 300mgQHS, caregiver instructed to call us in 2 weeks with update, continue using ativan for rescue in meantime, if seizures continue and GI issues have resolved then increase zonegran to 300mg qHS. - Screen for medication toxicity: labs today. - The patient is currently not a candidate for epilepsy surgery. - Bone health: Pt is currently taking Vitamin D. - Social and psychiatric issues: Improved as above. - Caregiver counselled about medication use, benefit and side effects. - Patient will be seen again by the epilepsy team in 3 months with regular provider Terri Hsu APRN. - Caregiver verbalizes understanding and agrees with plan. documented in this encounter Plan of Treatment Upcoming Encounters Date Type Department Care Team (Late st Contact Info) Description 08/06/2024 11:00 AM EST [place] [address] Sarah Serra APRN [facility] [place] [address] documented as of this encounter Procedures Procedure Name Priority Date/Time Associated Diagnosis Comments ZONISAMIDE LEVEL Routine 04/01/2015 2:27 PM EDT Epilepsy seizure, generalized, convulsive Petersburg-Gastaut syndrome, intractable, without status epilepticus OXCARBAZEPINE METABOLITE (MHC) Routine 04/01/2015 2:27 PM EDT Epilepsy seizure, generalized, convulsive Petersburg-Gastaut syndrome, intractable, without status epilepticus LIPASE Routine 04/01/2015 2:27 PM EDT Epilepsy seizure, generalized, convulsive Petersburg-Gastaut syndrome, intractable, without status epilepticus AMYLASE Routine 04/01/2015 2:27 PM EDT Epilepsy seizure, generalized, convulsive Petersburg-Gastaut syndrome, intractable, without status epilepticus COMPREHENSIVE METABOLIC PANEL Routine 04/01/2015 2:27 PM EDT Epilepsy seizure, generalized, convulsive Petersburg-Gastaut syndrome, intractable, without status epilepticus documented in this encounter Results * (ABNORMAL) Comprehensive metabolic panel (non-fasting) (04/01/2015 2:27 PM EDT) [facility] Glucose 88 65 - 199 mg/dL CERNER MILLENNIUM Comment:Diabetes: >=200 mg/d L plus symptoms Blood Urea Nitrogen 10 8 - 18 mg/dL CERNER MILLENNIUM Creatinine 0.54(L) 0.70 - 1.20 mg/dL CERNER MILLENNIUM Comment: Please note that the pediatric reference intervals supplied above were not validated at [facility]. Results from pediatric patients should be interpreted in conjunction to the patient's age, height and muscle mass. Sodium 140 135 - 145 mmol/L CERNER MILLENNIUM Potassium 3.9 3.5 - 5.0 mmol/L CERNER MILLENNIUM Comment: Please note: ??Patients with WBC >100,000 may have falsely elevated Potassium levels. ??For accurate Potassium quantification in these patients send serum separator tube (gold top) for subsequent determinations. ??Contact the Clinical Chemistry Laboratory if there are any questions. Chloride 103 98 - 107 mmol/L CERNER MILLENNIUM Carbon Dioxide 23 22 - 31 mmol/L CERNER MILLENNIUM Anion Gap 14 5 - 15 mmol/L CERNER MILLENNIUM Calcium 9.2 8.5 - 10.5 mg/dL CERNER MILLENNIUM Protein, Total 8.3(H) 6.1 - 8.0 gm/dL CERNER MILLENNIUM Albumin 4.8 3.2 - 5.2 gm/dL CERNER MILLENNIUM Aspartate Aminotransferase 27 0 - 30 unit/L CERNER MILLENNIUM Alanine Aminotransferase 43(H) 0 - 30 unit/L CERNER MILLENNIUM Alkaline Phosphatase 173(H) 40 - 104 unit/L CERNER MILLENNIUM Bilirubin, [...] the following links into your internet browser. [email or web address] Blood specimen (specimen) 04/01/2015 2:27 PM EDT 04/01/2015 2:36 PM EDT Narrative Resulting Agency Comment Spec In Lab Shashi Mckee MD CHEMISTRY ORDERABLES CERNATHALIE MILLENNIUM * Lipase (04/01/2015 2:27 PM EDT) Lipase 49 0 - 60 unit/L CERNER MILLENNIUM Blood specimen (specimen) 04/01/2015 2:27 PM EDT 04/01/2015 2:36 PM EDT Narrative Resulting Agency Comment Spec In Lab Shashi Mckee MD CHEMISTRY ORDERABLES Performing Organization Address City/[facility]/ZIP Co de Phone Number [facility] ESPERANZAIUM * (ABNORMAL) Amylase (04/01/2015 2:27 PM EDT) Amylase 106(H) 28 - 100 unit/L CERNER MILLENNIUM Blood specimen (specimen) 04/01/2015 2:27 PM EDT 04/01/2015 2:36 PM EDT Narrative Resulting Agency Comment Spec In Lab Shashi Mckee MD CHEMISTRY ORDERABLES Performing Organization Address [facility] Co de Phone Number [facility] * (ABNORMAL) Oxcarbazepine Metabolite (MHC) (04/01/2015 2:27 PM EDT) Oxcarbazep Met (Mhc) (DECEMBER) 38(H) 3 - 35 mcg/mL CERNER MILLENNIUM Comment: Test Performed by: [facility] [place] [address] Senior Engineer: Alok Mata II, M.D., Ph.D. Blood specimen (specimen) 04/01/2015 2:27 PM EDT 04/02/2015 8:37 AM EDT Narrative Resulting Agency Comment Spec In Lab Shashi Mckee MD LAB SEND OUT ORDERAB LES Performing Organization Address City/[facility]/ZIP Co de Phone Number [facility] * Zonisamide level (04/01/2015 2:27 PM EDT) Zonisamide Lvl (DECEMBER) 15 10 - 40 mcg/mL CERNER MILLENNIUM Comment: Test Performed by: [address] [address] Senior Engineer: Alok Mata II, M.D., Ph.D. 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
--- OUTSIDE RECORDS SUMMARY | 2024-06-28 22:04 | XMS_ITS | Encounter Summary ---
Author Organization [place] [address] Care Team Providers Care Track Sweeper Name Role Phone Cee Escobar MD Primary Care Provider [phone] Reason for Visit * Reason Onset Date Comments Medication Refill 10/05/2015 Encounter Details Date Type Department Care Team (Late st Contact Info) Description 10/05/2015 [place] [phone] Terri Hsu APRN [facility] [place] [address] Medication Refill Social History Tobacco Use Types [...] Telephone Encounter - Estrella Medina CMA - 10/05/2015 9:20 AM EST Refill request prepped and sent to Terri for review and signature. * Telephone Encounter - Celestine Ramirez - 10/05/2015 9:05 AM EST Name of Med: TRILEPTAL Strength of Pills: 300 mg Dosing Directions: Take 2 tablets by mouth 3 times daily. - Oral 30 or 90 Day: 30 Pharmacy: [facility] [place], [place] - [address] [place] [address] Last Appointment: 08/11 Next Appointment: 11/10 Is Patient out of Medication?: YES documented in this encounter Plan of Treatment Upcoming Encounters Date Type Department Care Team (Late st Contact Info) Description 08/06/2024 11:00 AM EST [place] [address] Sarah Serra [facility] [place] [address] documented as of this encounter Visit Diagnoses Not on filedocumented in this encounter Care Teams Track Sweeper Relationship Specialty Start Date End Date Cee Escobar MD [address] [place] [address] PCP - General 06/29/10 06/23/16 documented as of this encounter
--- OUTSIDE RECORDS SUMMARY | 2024-06-28 22:04 | XMS_ITS | Encounter Summary ---
Author Organization [facility] [place] [address] Care Team Providers Care Management Trainee Program Stores Name Role Phone Cee Escobar MD Primary Care Provider [phone] Reason for Visit * Reason Onset Date Comments Other 12/30/2014 Encounter Details Date Type Department Care Team (Late st Contact Info) Description 12/30/2014 Telephone [place] [phone] Terri Hsu APRN [facility] [place] [address] Other Social History Tobacco Use Types Packs/Day [...] Encounter - Mita Win RN - 12/30/2014 11:37 AM EDT See other telephone note for 12/30/14 * Telephone Encounter - Kareem Hilario - 12/30/2014 9:42 AM EDT This patient's weaving professor, Lulu, called in to state she would like to discuss with Terri Hsu before the patient's appointment with her tomorrow. She stated the patient has been having a lot of seizures lately. Please give her a call back today at [phone]. documented in this encounter Plan of Treatment Upcoming Encounters Date Type Department Care Team (Late st Contact Info) Description 08/06/2024 11:00 AM EST Office [place] [address] Sarah Serra APRN [facility] [place] [address] documented as of this encounter Visit Diagnoses Not on filedocumented in this encounter Care Teams Management Trainee Program Stores Relationship Specialty Start Date End Date Cee Escobar MD [address] [place] [address] PCP - General 06/29/10 06/23/16 documented as of this encounter
--- OUTSIDE RECORDS SUMMARY | 2024-06-28 22:04 | XMS_ITS | Encounter Summary ---
[place] [address] Care Team Providers Care Sales Agent Name Role Phone Cee Escobar MD Primary Care Provider [phone] Reason for Visit * Reason Onset Date Comments Medication Refill 09/04/2015 Med Refill Encounter Details Date Type Department Care Team (Late st Contact Info) Description 09/04/2015 Tele[place] [address] Estrella Medina CMA Medication Refill (Med Refill) Social History Tobacco Use Types Packs/Day Years [...] Telephone Encounter - Estrella Medina CMA - 09/04/2015 10:56 AM EST Pharmacy called and prescription is all set. * Telephone Encounter - Kinsey Crouch Tisha - 09/04/2015 10:37 AM EST [facility] [place] they need this prescription verbally in order to fill it as it was not sent on a Secured Form. Carlos Eduardo Rutledge needs a call back to get this prescription filled. * Telephone Encounter - Estrella Medina CMA - 09/04/2015 10:14 AM EST New RX for Banzel 400 MG tablets faxed to requested pharmacy, [phone] documented in this encounter Plan of Treatment Upcoming Encounters Date Type Department Care Team (Late st Contact Info) Description 08/06/2024 11:00 AM EST Office [place] [address] Sarah Serra APRN [facility] [place] [address] documented as of this encounter Visit Diagnoses Not on filedocumented in this encounter Care Teams Sales Agent Relationship Specialty Start Date End Date Cee Escobar MD [address] [place] [address] PCP - General 06/29/10 06/23/16 documented as of this encounter
--- OUTSIDE RECORDS SUMMARY | 2024-06-28 22:04 | XMS_ITS | Encounter Summary ---
Author Organization [place] [address] Care Team Providers Care Road Builder Name Role Phone Cee Escobar MD Primary Care Provider [phone] Reason for Visit * Reason Onset Date Comments Other 11/16/2015 Encounter Details Date Type Department Care Team (Late st Contact Info) Description 11/16/2015 Telephone [place] [phone] Terri Hsu APRN [facility] [place] [address] Other Social History Tobacco Use Types Packs/Day [...] Telephone Encounter - Ciara Blanco RN - 11/26/2015 12:24 PM EDT Lulu, pt's guardian, calls stating that pt is still in need of a PA for her Onfi. Will forward message on to Alondra. * Telephone Encounter - Mita Win RN - 11/16/2015 4:51 PM EDT New rx for sabril faxed to [facility] to fax number [phone] 11/16/15 at 4:53 pm. [facility] phone # [phone] * Telephone Encounter - Kareem Hilario - 11/16/2015 3:22 PM EDT Azam Freeman, from [facility], called with Prior Authorization information for the patient's ONFI. The phone number to call is [phone], and the patient's ID is [id number]. The plan is Medicare D. documented in this encounter Plan of Treatment Upcoming Encounters Date Type Department Care Team (Late st Contact Info) Description 08/06/2024 11:00 AM EST Office [place] [address] Sarah Serra [facility] [place] [address] documented as of this encounter Visit Diagnoses Not on filedocumented in this encounter Care Teams Road Builder Relationship Specialty Start Date End Date Cee Escobar MD [address] [place] [address] PCP - General 06/29/10 06/23/16 documented as of this encounter
--- OUTSIDE RECORDS SUMMARY | 2024-06-28 22:04 | XMS_ITS | Encounter Summary ---
Author Organization [facility] Address [facility] [place] [address] Care Team Providers Care Metal Tester Name Role Phone Cee Escobar MD Primary Care Provider [phone] Encounter Details Date Type Department Care Team (Latest Contact Info) Description 07/09/2015 12:05 AM EST - 07/09/2015 11:59 PM EST Hospital Encounter Radiology Library at [facility] [place] [address] Christos Davis MD [facility] [place] [address] Pain Discharge Disposition: Home Social History Tobacco [...] still not effective please call neurologist diamond selector. No more than 4mg daily. 30 tablet [...] AM EST Office [place] [address] Sarah Serra, DINO [facility] [place] [address] documented as of this encounter Procedures Procedure Name Priority Date/Time Associated Diagnosis Comments FILM LIBRARY STORAGE ONLY CT KNEE Routine 07/09/2015 12:05 AM EST Pain documented in this encounter Results * Film Library- Storage Only CT Knee (07/09/2015 12:05 AM EST) Narrative [facility] - 04/03/2016 7:51 AM EDT This exam is for storage only and is auto-finalizing. Christos Davis MD IMG FILM LIBRARY OR DERABLES Performing Organization Address City/State/[facility] Co de Phone Number [place], [place] documented in this encounter Visit Diagnoses Diagnosis Pain Generalized pain documented in this encounter Care Teams Metal Tester Relationship Specialty Start Date End Date Cee Escobar MD [address] [place] [address] PCP - General 06/29/10 06/23/16 documented as of this encounter
--- OUTSIDE RECORDS SUMMARY | 2024-06-28 22:04 | XMS_ITS | Encounter Summary ---
Author Organization [facility] [place] [address] Care Team Providers Care Counselor Aid Name Role Phone Cee Escobar MD Primary Care Provider [phone] Encounter Details Date Type Department Care Team (Late st Contact Info) Description 11/11/2015 2:30 PM EDT [place] [address] Terri Hsu APRN [facility] 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 The seizures are not as intense. After each increase, she will do well for about a week but then goes back to having clusters of seizures. She has been having the PRN lorazepam almost on a dailybasis. She did best on valproic acid but had GI problems and had to taper off. Her GI issues have improved. She is still recovering from her broken right leg which occurred during a seizure. She cannot weight bear on that leg and has to be transferred with a matthias lift or a stand and pivot on the left leg.This has caused additional problems with caring for her. Social History: History Social History ??? Marital [...] to Visit Medication Sig Dispense Refill ??? TRILEPTAL 300 mg Tablet Take 2 tablets by mouth 3 times daily. 180 tablet 11 ??? rufinamide (BANZEL) 400 mg Tablet Take 3 tablets by mouth 3 times daily. 270 tablet 5 ??? LORazepam (ATIVAN) 1 mg Tablet Take 1-2 tablets at onset of seizure symptoms, if ineffective after 30 minutes may repeat dose. If still not effective please call neurologist clinical documentation developer. No more [id number] daily. 30 tablet 3 ??? diaZEPam (DIASTAT [...] ??? Risedronate Sodium Nausea And Vomiting Objective: Weight 72.576 kg (160 lb). Awake and more talkative than at her last visit, she intermittently saysbrief repetitive words of phrases, sitting in wheelchair, interacting with caregiver and provider, can follow some simple commands, mood is good. VNS interrogated, parameters as found below: Output current: 2.0 milliamps Signal frequency: 20 Hertz Pulse Width:500 microseconds On time:21 sec Off time:1.8 min Magnet current:2.25 milliamps Pulse Width: 500 microseconds Systems diagnostics normal. Battery half full, [...] but she is certainly not seizure free. I discussed several medication options with her home provider and caser in. I reviewed Sabril, Felbamate and Onfi. We elected to try Onfi. Will start with 10mg nightly. Her home provider will call in a few weeks to report her progress. - Screen for medication toxicity: I am [...] Caregiver verbalizes understanding and agrees with plan. If she does well, will try to taper her off of Trileptal. 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
--- OUTSIDE RECORDS SUMMARY | 2024-06-28 22:04 | XMS_ITS | Encounter Summary ---
[place] [address] Care Team Providers Care Neurology Physician Assistant Name Role Phone Cee Escobar MD Primary Care Provider [phone] Reason for Visit * Reason Onset Date Comments Other 04/01/2015 Encounter Details Date Type Department Care Team (Late st Contact Info) Description 04/01/2015 [place] [phone] Sarah eSrra APRN [facility] [address] Other Social History Tobacco Use Types Packs/Day [...] encounter Miscellaneous Notes * Telephone Encounter - Nicole Castellano - 04/01/2015 3:46 PM EDT Adele called stating that the blood drawn for the patient's CBC is clotted and will need to be redrawn. A new order will need to be placed. Please send in new order. Patient is not aware of this. documented in this encounter Plan of Treatment Upcoming Encounters Date Type Department Care Team (Late st Contact Info) Description 08/06/2024 11:00 AM EST Office [place] [address] Sarah Serra APRN [facility] [place] [address] documented as of this encounter Visit Diagnoses Not on filedocumented in this encounter Care Teams Neurology Physician Assistant Relationship Specialty Start Date End Date Cee Escobar MD [address] [place] [address] PCP - General 06/29/10 06/23/16 documented as of this encounter
--- OUTSIDE RECORDS SUMMARY | 2024-06-28 22:04 | XMS_ITS | Encounter Summary ---
[place] [address] Care Team Providers Care Area Cleaner Name Role Phone Cee Escobar MD Primary Care Provider [phone] Reason for Visit * Reason Onset Date Comments Medication Refill 01/07/2016 Encounter Details Date Type Department Care Team ([facility] Contact Info) Description 01/07/2016 Telephone Internal Medicine at [address] [address] Estrella Medina CMA Medication Refill Social History [...] Telephone Encounter - Estrella Medina CMA - 01/07/2016 1:18 PM EDT New RX fordiaZEPam (DIASTAT ACUDIAL) 12.5-15-17.5-20 mg Kit faxed to requested pharmacy, [facility] - [place], [place] - [address] [facility]. documented in this encounter Plan of Treatment Upcoming Encounters Date Type Department Care Team ([facility] Contact Info) Description 08/06/2024 11:00 AM EST [place] [address] Sarah Serra, EXTRACTIONS TECHNOLOGIST [facility] [address] documented as of this encounter Visit Diagnoses Not on filedocumented in this encounter Care Teams Area Cleaner Relationship Specialty Start Date End Date Cee Escobar MD [address] [place] [address] PCP - General 06/29/10 06/23/16 documented as of this encounter
--- OUTSIDE RECORDS SUMMARY | 2024-06-28 22:05 | XMS_ITS | Encounter Summary ---
Author Organization [facility] [place] [address] Care Team Providers Care Industrial Servicer Name Role Phone Cee Escobar MD Primary Care Provider [phone] Reason for Visit * Reason Onset Date Comments Medication Refill 09/25/2014 Encounter Details Date Type Department Care Team (Late st Contact Info) Description 09/25/2014 [place] [address] Tiff Oglesby MD [facility] [place] [address] Social History Tobacco Use Types Packs/Day Years [...] EST [place] [phone] Sarah Serra APRN [facility] [place] [address] documented as of this encounter Visit Diagnoses Not on filedocumented in this encounter Care Teams Industrial Servicer Relationship Specialty Start Date End Date Cee Escobar MD [facility] [address] [place] [address] PCP - General 06/29/10 06/23/16 documented as of this encounter
--- OUTSIDE RECORDS SUMMARY | 2024-06-28 22:05 | XMS_ITS | Encounter Summary ---
[place] [address] Care Team Providers Care Slitting Machine Feeder Name Role Phone Cee Escobar MD Primary Care Provider [phone] Encounter Details Date Type Department Care Team (Late st Contact Info) Description 12/02/2011 [place] [address] Risa Carrizales, RN Social History Tobacco Use Types Packs/Day [...] 11:00 AM EST [place] [address] Sarah Serra APRN [facility] [place] [address] documented as of this encounter Visit Diagnoses Not on filedocumented in this encounter Care Teams Slitting Machine Feeder Relationship Specialty Start Date End Date Cee Escobar MD [address] [place] [address] PCP - General 06/29/10 06/23/16 documented as of this encounter
--- OUTSIDE RECORDS SUMMARY | 2024-06-28 22:05 | XMS_ITS | Encounter Summary ---
Author Organization [facility] [place] [address] Care Team Providers Care Patternmaker Name Role Phone Cee Escobar MD Primary Care Provider [phone] Reason for Visit * Reason Onset Date Comments Results 06/14/2011 lab results from 06-07-2011 Encounter Details Date Type Department Care Team (Late st Contact Info) Description 06/14/2011 [place] [phone] Terri Hsu APRN [facility] [place] [address] Results (lab results from 06-07-2011) Social History Tobacco Use Types Packs/Day Years [...] encounter Miscellaneous Notes * Telephone Encounter - Katlin Sargent LPN - 06/14/2011 11:15 AM EST Labs: Ammonia level 40 Ref. Range 11-32 Liver Function test normal range Sodium and Potassium level normal range WBC 4.03 Ref. Range 4.4-10.8 RBC, HGB, HCT and platelets were all with normal range Depakote level 114.9 High documented in this encounter Plan of Treatment Upcoming Encounters Date Type Department Care Team (Late st Contact Info) Description 08/06/2024 11:00 AM EST Office [place] [address] Sarah Serra APRN [facility] [place] [address] documented as of this encounter Visit Diagnoses Not on filedocumented in this encounter Care Teams Patternmaker Relationship Specialty Start Date End Date Cee Escobar MD [address] [place] [address] PCP - General 06/29/10 06/23/16 documented as of this encounter
--- OUTSIDE RECORDS SUMMARY | 2024-06-28 22:05 | XMS_ITS | Encounter Summary ---
Author Organization [place] [address] Care Team Providers Care Safety Lamp Keeper Name Role Phone Cee Escobar MD Primary Care Provider [phone] Reason for Visit * Reason Onset Date Comments Other 10/08/2014 Encounter Details Date Type Department Care Team (Late st Contact Info) Description 10/08/2014 [place] [phone] Terri Hsu APRN [facility] [place] [address] Other Social History Tobacco Use Types Packs/Day [...] Telephone Encounter - Mita Win RN - 10/09/2014 9:21 AM EST I phoned back and spoke with Lulu. Lulu states Terri was just following up to see how pt was doing. Lulu informed Terri not available this week but that I would forward this message to her. Lulu instructed to call if any pt changes or concerns. Lulu agrees with plan and verbalizes understanding. * Telephone Encounter - Jia Noble - 10/08/2014 12:30 PM EST Lulu, pt caregiver, is returning Terri's call. Please call and advise documented in this encounter Plan of Treatment Upcoming Encounters Date Type Department Care Team (Late st Contact Info) Description 08/06/2024 11:00 AM EST Office [place] [address] Sarah Serra APRN [facility] [place] [address] documented as of this encounter Visit Diagnoses Not on filedocumented in this encounter Care Teams Safety Lamp Keeper Relationship Specialty Start Date End Date Cee Escobar MD [address] [place] [address] PCP - General 06/29/10 06/23/16 documented as of this encounter
--- OUTSIDE RECORDS SUMMARY | 2024-06-28 22:05 | XMS_ITS | Encounter Summary ---
Author Organization [facility] [place] [address] Care Team Providers Care Event Sales Assistant Name Role Phone Cee Escobar MD Primary Care Provider [phone] Reason for Visit * Reason Onset Date Comments Other 12/01/2010 prior authorizat ion for nadiaitor Encounter Details Date Type Department Care Team (Late st Contact Info) Description 12/01/2010 Telephone [place] [phone] Terri Hsu APRN [facility] [place] [place] [address] Other (prior authorization for carnitor) Social History Tobacco Use Types Packs/Day Years Used Date Smoking Tobacco: Never Alcohol Use Standard Drinks/Week Comments No 0 (1 standard drink = 0.6 oz pur e alcohol) Sex and Gender Information Value Date Recorded Sex Assigned at Not on file Gender Identity Not on file Sexual Orientation Not on file documented as of this encounter Miscellaneous Notes * Telephone Encounter - Katlin Sargent LPN - 12/01/2010 10:08 AM EDT Prior Authorization Insurance Co: [employer] Medicare Part D Pt ID #: [id number] Provider: Terri Gil APRN Diagnosis: Epilespy Approval : 12-02-2010 to 08-06-2011 Pharmacy: [facility] Medication: Carnitor 330 mg tab; take 1 tab twice daily depakote increase the ammonia level. Carnitor helps absorb the ammonia from the fatty acid buildup caused by the depakote. documented in this encounter Plan of Treatment Upcoming Encounters Date Type Department Care Team (Late st Contact Info) Description 08/06/2024 11:00 AM EST Office [place] [address] Sarah Serra APRN [facility] [place] [address] documented as of this encounter Visit Diagnoses Not on filedocumented in this encounter Care Teams Event Sales Assistant Relationship Specialty Start Date End Date Cee Escobar MD [address] [place] [address] PCP - General 06/29/10 06/23/16 documented as of this encounter
--- OUTSIDE RECORDS SUMMARY | 2024-06-28 22:05 | XMS_ITS | Encounter Summary ---
Author Organization [facility] [place] [address] Care Team Providers Care Sessions Clerk Name Role Phone Cee Escobra MD Primary Care Provider [phone] Encounter Details Date Type Department Care Team (Late st Contact Info) Description 05/11/2010 [place] [address] Terri Hsu [facility] [address] [place] [address] Social History Tobacco Use Types Packs/Day Years Used Date Smoking Tobacco: Never Assessed Sex and Gender Information Value Date Recorded Sex Assigned at Not on file Gender Identity Not on file Sexual Orientation Not on file documented as of this encounter Plan of Treatment Upcoming Encounters Date Type Department Care Team (Late st Contact Info) Description 08/06/2024 11:00 AM EST [place] [address] Sarah Serra [facility] [place] [address] documented as of this encounter Procedures Procedure Name Priority Date/Time Associated Diagnosis Comments DIFFERENTIAL, AUTOMATED Routine 05/11/2010 4:04 PM EDT OXCARBAZEPINE METABOLITE (MHC) Routine 05/11/2010 4:04 PM EDT CBC (WITH DIFF) Routine 05/11/2010 4:04 PM EDT AMMONIA Routine 05/11/2010 4:04 PM EDT PHENOBARBITAL LEVEL Routine 05/11/2010 4 :04 PM EDT VALPROIC ACID LEVEL, TOTAL Routine 05/11/2010 4:04 PM EDT COMPREHENSIVE METABOLIC PANEL Routine 05/11/2010 4:04 PM EDT documented in this encounter Results * OXCARBAZEPINE LEVEL (05/11/2010 4:04 PM EDT) Oxcarbazep Met (Mhc) (DECEMBER) 33 3 - 35 mcg/mL [facility] Comment: Test Performed by: [facility] Dpt of Lab Med and Pathology [address] [place] [address] Curator Of Education: Naman Herr III, M.D. Blood specimen (specimen) 05/11/2010 4:04 PM EDT 05/11/2010 5:05 PM EDT Terri Hsu APRN LAB SEND OUT ORDERAB LES Performing Organization Address City/[facility] Co de Phone Number [facility] * VALPROIC ACID LEVEL, TOTAL (05/11/2010 4:04 PM EDT) Valproic Acid 79 mg/L [facility] Comment: Therapeutic Range: Anticonvulsant Therapy: ??50-100 mg/L Manic Episodes Associated with Bipolar Disorder: ??50-125 mg/L Blood specimen (specimen) 05/11/2010 4:04 PM EDT 05/11/2010 4:20 PM EDT Terri Hsu LINOLEUM PRINTER CHEMISTRY ORDERABLES IMELDA MATAIUM * PHENOBARBITAL LEVEL (05/11/2010 4:04 PM EDT) Phenobarbital 22.0 15.0 - 40.0 mg/L [facility] Comment: Therapeutic Range: ??15-40 mg/L Toxic: ??> 50 mg/L Blood specimen (specimen) 05/11/2010 4:04 PM EDT 05/11/2010 4:20 PM EDT Terri L Secore LINOLEUM PRINTER CHEMISTRY ORDERABLES Performing Organization Address [facility] Co de Phone Number [facility] * (ABNORMAL) AMMONIA (05/11/2010 4:04 PM EDT) Ammonia 73(H) 11 - 51 mcmol/L [facility]ENNI[facility] Blood specimen (specimen) 05/11/2010 4:04 PM EDT 05/11/2010 4:20 PM EDT Terri L Secore LINOLEUM PRINTER CHEMISTRY ORDERABLES Performing Organization Address [facility]/ZIP Co de Phone Number [facility] * (ABNORMAL) COMPREHENSIVE METABOLIC PANEL (NON-FASTING) (05/11/2010 4:04 PM EDT) Glucose 79 <=199 mg/dL [facility] Comment:Diabetes: >=200 mg/d L plus symptoms Blood Urea Nitrogen 17 8 - 18 mg/dL [facility]ENNI[facility] Creatinine 0.54(L) 0.70 - 1.20 mg/dL [facility] MILLENNI[facility] Sodium 141 135 - 145 mmol/L [facility] MILLENNIUM Potassium 4.1 3.5 - 5.0 mmol/L [facility] Comment: Please note: ??Patients with WBC >100,000 may have falsely elevated Potassium levels. ??For accurate Potassium quantification in these patients send serum separator tube (gold top) for subsequent determinations. ??Contact the Clinical Chemistry Laboratory if there are any questions. Chloride 102 98 - 107 mmol/L [facility] MILLENNI[facility] Carbon Dioxide 29 22 - 31 mmol/L [facility] MILLENNIUM Anion Gap 10 5 - 15 mmol/L [facility] MILLENNIUM Calcium 9.3 8.5 - 10.5 mg/dL [facility] MILLENNIUM Protein, Total 7.4 6.4 - 8.3 gm/dL [facility] MILLENNIUM Albumin 3.8 3.2 - 5.2 gm/dL [facility] MILLENNIUM Aspartate Aminotransferase 20 0 - 30 unit/L [facility] MILLENNIUM Alanine Aminotransferase 22 0 - 30 unit/L [facility] MILLENNIUM Alkaline Phosphatase 78 40 - 104 unit/L [facility] MILLENNIUM Bilirubin, Total 0.1(L) 0.2 - 1.3 mg/dL [facility] MILLENNIUM Bilirubin, Direct 0.1 0.0 - 0.3 mg/dL [facility] MILLENNIUM Est Glomerular Filtration Rate >60 >=60 [facility] Comment: The National Kidney Disease Education Program (NKDEP) has recommended all laboratories report estimated GFR (eGFR) along with plasma creatinine measurements to assist you with recognition of early kidney disease. Caveats: ??Plasma creatinine should be at steady-state (unchanged within the past week). ??Patient age > = 18 years, and for Americans multiply eGFR by 1.2. At present, NKDEP does NOT recommend using the MDRD equation for drug dosing purposes and pharmacists should continue to use their current dosing methods. In addition, numerical eGFR values greater than 60 ml/min/1.73 square meters should be treated as > 60, and not an exact number due to greater inaccuracies at these higher values. Per NKDEP, they classify normal renal function as any GFR >60ml/min/1.73 square meters; chronic kidney disease when GFR <60, and renal failure when GFR <15. ??This calculation may not be valid for patients with atypical muscle mass (very lean or obese), acute renal failure, and in patients with diabetic kidney disease. References: http://nkdep.nih.gov/resources/NKDEP_Suggestn4Labs_0606_508.pdf http://www.kidney.org/professionals/kls/pdf/faq_gfr.pdf Blood specimen (specimen) 05/11/2010 4:04 PM EDT 05/11/2010 4:20 PM EDT Terri Hsu LINOLEUM PRINTER CHEMISTRY ORDERABLES [facility] MILLENNI[facility] * (ABNORMAL) REFLEX LAB-A-DIFF (05/11/2010 4:04 PM EDT) Neutrophil % 40.7 34.0 - 71.0 % CERNER MILLENNIUM Neutrophil Absolute 1.72 1.50 - 6.30 x10(3)/mc L CERNER MILLENNIUM Lymph % 47.8 19.0 - 53.0 % CERNER MILLENNIUM Lymphocytes Abs 2.0 1.0 - 3.6 x10(3)/mc L CERNER MILLENNIUM Monocyte % 9.7 4.0 - 13.0 % CERNER MILLENNIUM Monocyte Abs 0.4 0.2 - 1.0 x10(3)/mc L CERNER MILLENNIUM Eos % 0.9 0.0 - 7.0 % CERNER MILLENNIUM Eosinophils Abs 0.0 0.0 - 0.5 x10(3)/mc L CERNER MILLENNIUM Basophil % 0.2 0.0 - 2.0 % CERNER MILLENNIUM Baso Absolute 0.0 0.0 - 0.2 x10(3)/mc L CERNER MILLENNIUM Immature Gran % 0.70(H) 0.00 - 0.66 % [facility] Comment: Immature granulocytes(IG's)percentage and absolute count will include metamyelocytes, myelocytes, and promyelocytes. Blood smears from CBC's yielding IG's will be scanned manually for concordance. If this scan disagrees with the automated IG or if promyelocytes are noted, a manual differential will be performed. Immature Gran Absolute 0.03 0.00 - 0.05 x10(3)/mc L [facility] MILLENNIUM Blood specimen (specimen) 05/11/2010 4:04 PM EDT 05/11/2010 4:20 PM EDT Terri Llanosore LINOLEUM PRINTER HEMATOLOGY ORDERABLE S IMELDA BAUMENNIUM * CBC (05/11/2010 4:04 PM EDT) White Blood Cell 4.2 4.0 - 10.0 x10(3)/mcL CERNER MILLENNIUM Red Blood Cell 4.49 3.93 - 5.22 x10(6)/mcL CERNER MILLENNIUM Hemoglobin 13.3 11.2 - 15.7 gm/dL CERNER MILLENNIUM Hematocrit 40.8 34.0 - 45.0 % CERNER MILLENNIUM Mean Cell Volume 90.9 79.0 - 94.0 fL CERNER MILLENNIUM Mean Cell Hemoglobin 29.6 26.6 - 32.2 pg CERNER MILLENNIUM Mean Cell Hemoglobin Concentration 32.6 32.0 - 36.5 gm/dL CERNER MILLENNIUM Platelet 216 145 - 370 x10(3)/mcL CERNER MILLENNIUM RDW Standard Deviation 45.7 35.0 - 46.0 fL CERNER MILLENNIUM RDW coefficient of variation 13.7 10.9 - 14.4 % CERNER MILLENNIUM Mean Platelet Volume 9.5 9.0 - 12.0 fL CERNER MILLENNIUM Blood specimen (specimen) 05/11/2010 4:04 PM EDT 05/11/2010 4:20 PM EDT Terri Hsu LINOLEUM PRINTER HEMATOLOGY ORDERABLE S IMELDA VICK documented in this encounter Visit Diagnoses Not on filedocumented in this encounter Care Teams Sessions Clerk Relationship Specialty Start Date End Date Cee Escobar MD [address] [place] [address] PCP - General 06/29/10 06/23/16 documented as of this encounter
--- OUTSIDE RECORDS SUMMARY | 2024-06-28 22:05 | XMS_ITS | Encounter Summary ---
Author Organization [facility] [place] [address] Care Team Providers Care Concrete Rod Buster Name Role Phone Cee Escobar MD Primary Care Provider [phone] Reason for Visit * Reason Onset Date Comments Labs Only 03/01/2012 lab results from 02/24/2012 Encounter Details Date Type Department Care Team (Late st Contact Info) Description 03/01/2012 [place] [phone] Terri Hsu APRN [facility] [place] [address] Labs Only (lab results from 02/24/2012) Social History Tobacco Use Types Packs/Day Years [...] Telephone Encounter - Katlin Sargent LPN - 03/01/2012 9:13 AM EDT Date of labs: 02/24/2012 Labs: AST, ALT, Sodium, Potassium All within normal range RBC, HGB, HCT & Plts All within normal range WBC 4.37 Ref. Range 4.4- 10.8 Depakote level 70.8 Normal Phenobarbital Level 25.7 Normal Ammonia level 43 Ref. Range 11-32 documented in this encounter Plan of Treatment Upcoming Encounters Date Type Department Care Team (Late st Contact Info) Description 08/06/2024 11:00 AM EST Office [place] [address] Sarah Serra APRN [facility] [place] [address] documented as of this encounter Visit Diagnoses Not on filedocumented in this encounter Care Teams Concrete Rod Buster Relationship Specialty Start Date End Date Cee Escobar MD [address] [place] [address] PCP - General 06/29/10 06/23/16 documented as of this encounter
--- OUTSIDE RECORDS SUMMARY | 2024-06-28 22:05 | XMS_ITS | Encounter Summary ---
[place] [address] Care Team Providers Care Roofing Foreman Name Role Phone Cee Escobar MD Primary Care Provider [phone] Reason for Visit * Reason Onset Date Comments Medication Refill 08/28/2014 Encounter Details Date Type Department Care Team (Late st Contact Info) Description 08/28/2014 [place] [phone] [facility] [place] [address] Social History Tobacco Use Types Packs/Day Years [...] 11:00 AM EST Office [place] [phone] Sarah Serra [employer] [facility] [place] [address] documented as of this encounter Visit Diagnoses Not on filedocumented in this encounter Care Teams Roofing Foreman Relationship Specialty Start Date End Date Cee Escobar MD [address] [place] [address] PCP - General 06/29/10 06/23/16 documented as of this encounter
--- OUTSIDE RECORDS SUMMARY | 2024-06-28 22:05 | XMS_ITS | Encounter Summary ---
Author Organization [facility] [place] [address] Care Team Providers Care Helicopter Mechanic Name Role Phone Cee Escobar MD Primary Care Provider [phone] Encounter Details Date Type Department Care Team (Late st Contact Info) Description 08/12/2014 Telephone [place] [address] Terri Hsu APRN [facility] [place] [address] Social History Tobacco Use Types Packs/Day Years [...] Telephone Encounter - Terri Hsu APRN - 08/12/2014 4:[address] Escobar called to inform us that Cinthya had a repeat upper endoscopy which is still showing severe gastritis and she had a blood clot removed from her duodenum. She has been on Nexium 40mg twice daily and still is having stomach pain and intermittent vomiting. I discussed with Dr. Mckee and hesuggests we taper the depakote and then repeat the endoscopy one month after she is off. Will communicate this to Dr. Escobar and call Lulu to start the process. 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
--- OUTSIDE RECORDS SUMMARY | 2024-06-28 22:05 | XMS_ITS | Encounter Summary ---
Author Organization [facility] [place] [address] Care Team Providers Care Aircraft Structural Repair Mechanic Name Role Phone Cee Escobar MD Primary Care Provider [phone] Reason for Visit * Reason Comments Seizures Encounter Details Date Type Department Care Team (Late st Contact Info) Description 05/12/2011 12:45 PM EDT [place] [phone] Terri Hsu APRN [facility] [place] [address] Epilepsy seizure, generalized, convulsive; High risk medication use Discharge Disposition: Home Social History Tobacco Use [...] Sign Reading Time Taken Comments Blood Pressure 132/83 05/12/2011 12:55 PM EDT Pulse 84 05/12/2011 12:55 PM EDT Temperature - - Respiratory Rate - - Oxygen Saturation - - Inhaled Oxygen Concentration - - Weight 68 kg (150 lb) 05/12/2011 12:55 PM EDT Height 142.2 cm (4' 8) 05/12/2011 12:55 PM EDT Body Mass Index 33.63 05/12/2011 12:55 PM EDT documented in this encounter Progress Notes * Terri Gil APRN - 05/12/2011 1:43 PM EDT HPI: Cinthya is seen for a 6 month follow up. She is doing much better since increasing the duty cycle of the VNS and fixing her CPAP mask. She is having about 2 seizures per month that last about a minute and have a short recovery phase. She also has occasional myoclonic twitches but those are instantaneous. She is sleeping better and some days stays dry through the night and sleeps all night long. Her home provider is happy. Review of systems: Occasional nausea. Intermittent tremors. Occasional trouble sleeping. Physical Exam Skin: Rash noted. She has an odd type rash on her arms and face which she has had for a long time. It is redness under the skin. No raised areas nor itching associated with it. Her skin is very dry. Neurologic Exam Mental Status Level of consciousness: alert Able to say brief words on occasion. She repeats words often. Motor Exam Sitting in wheelchair. She was more interactive today than I have seen her in the past. I reviewed the following: Labs- last done May 2010 and all wnl. I am not repeating any. VNS parameters: Output current: 1.75 milliamps Signal frequency: 25 Hertz Pulse Width:500 microseconds On time:14 sec Off time:1.1 min Magnet current:2.25 milliamps I did a lead test and normal mode test with a DC code of 2 and 3 respectively. Impression/Plan: Cinthya is doing well. I renewed her medications. Her VNS battery is still functioning. The device is now over 9 years old. She will return in 6 months for another battery assessment. I am not making any changes. 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
--- OUTSIDE RECORDS SUMMARY | 2024-06-28 22:05 | XMS_ITS | Encounter Summary ---
[place] [address] Care Team Providers Care Aviation Project Manager Name Role Phone Cee Johnson MD Primary Care Provider [phone] Encounter Details Date Type Department Care Team (Late st Contact Info) Description 11/18/2014 4:25 PM EDT - 11/24/2014 3:44 PM EDT Hospital Encounter [address] [place] [phone] Fam Matta MD [facility] [place] [address] Epilepsy seizure, generalized, convulsive Discharge Disposition: Home [...] Sign Reading Time Taken Comments Blood Pressure 112/77 11/24/2014 2:00 PM EDT Pulse 95 11/24/2014 2:00 PM EDT Temperature 36.8 ??C (98.2 ??F) 11/24/2014 2:00 PM ED T Respiratory Rate 18 11/24/2014 2:00 PM EDT Oxygen Saturation 100% 11/24/2014 2:00 PM EDT Inhaled Oxygen Concentration - - Weight 73.4 kg (161 lb 13.1 oz) 015 10:00 PM EDT Height 147.3 cm (4' 10) 11/18/2014 10: 00 PM EDT Body Mass Index 33.82 11/18/2014 10:00 PM EDT documented in this encounter Discharge Summaries * Shashi Mckee MD - 11/24/2014 10:45 AM EDT Discharge Summary Patient Name: Cinthya Brown Patient Age: 54 y.o. Language: Nepali Race: White Ethnicity: Not nor Admit date: 11/18/2014 Discharge date and time: 11/24/2014 Attending Physician: Fam Matta MD Discharge Physician: Shashi Mckee Follow-up Recommendations for Providers: If seizures increase with current AED regimen, can consider adding zonisamide. Inpatient Provider Contact Information: For questions regarding this document or issues related to this hospitalization on the Neurology Service, please contact the author(s) of this discharge summary through the [facility] . Discharge Diagnoses (Hospital Problems) and Secondary Diagnoses (Chronic Problems): Primary Diagnosis: Epilepsy. Secondary Diagnosis: Mental retardation. Active Non-Hospital Problems Diagnosis ??? Epilepsy ??? Sleep apnea ??? * Mental retardation Gastritis Past Medical History Diagnosis Date ??? Seizures ??? Hyperlipidemia ??? RIA (obstructive sleep apnea) ??? MR (mental retardation) History of Presentation: Cinthya Brown is a 54 y.o. left-handed female with mental retardation and sleep apnea who is admitted to the video EEG monitoring unit for monitoring during Depakote taper. The majority of her history was collected from her guardian, Lulu. The patient's PCP and GI wish to discontinue this medication due to intractable gastritis. During initial home taper, she has been unable to get completely off the medication. Her initial effective dose was Depakote 500 mg TID. After tapering down to 250mg daily, she starting having more seizures which were occuring in clusters and very difficult to stop. Lorazepam was not very helpful in controlling her clusters. She was put back up to 250 mg BID and her Trileptal was increased as well. Since that time she is having less seizures but is having intermittent nausea/vomiting again. Last episode of vomiting was last week. ?? Onset: Started at the age of 6 months ?? Semiology & Frequency: ?? #1: Arms and legs jerk, face twitches, eyes roll up, bites tongue, deep breathing (once a week or more). A couple of weeks ago, was having this type of seizure daily; Trileptal was increased and they have decreased in frequency. These seizures last for about a minute. ?? #2: Eyes flutter with chewing motion (frequency is less than once a week) ?? #3: One arm jerking, unsure of which arm (frequency is less than once a week) ?? Triggers: ?? Excitement, cold, sometimes unprovoked ?? History of generalized convulsion: Yes ?? Ever had tongue biting or urinary incontinence: Yes, both. ?? Daytime preponderance of seizures: Usually occur in sleep, sometimes during the day ?? Past medications tried: ?? Past: Phenobarbital, Lorazepam, Trileptal, Depakote, Lamictal (didn't work, hair fell out) ?? VNS placed in 2003 (very helpful) ?? Prior workup: ?? VEEG monitoring prior to 2003, guardian is unsure of results ?? MRI Brain (02/28/2002): FINDINGS; There are no intracranial signal abnormalities. The bilateral hippocampi are normally formed. The ventricles and subarachnoid spaces are normal in size and configuration. There is no midline shift or mass effect. The gradient recall sequences demonstrate normal signal. IMPRESSION: Normal. ?? Risk factors for epilepsy: ?? Head trauma: no ?? Family history: no ?? Meningoencephalitis: no ?? complications: no, her mother reports that patient was completely normal until receiving immunizations and then started to have seizures but past providers note that it was likely her seizures were not obvious until this age. ?? Complex febrile seizures: no ?? Risk factors for nonepileptic seizures: ?? History negative for greater than three seizures types, seizures greater than 5 minutes, prior psych tratment, hx of sz in close friend/relative, h/o suicide attempt, greater than 12 drinks per week Physical Exam at Admission Blood pressure 134/79, pulse 89, temperature 36.2 ??C (97.2 ??F), temperature source Axillary, resp. rate 20, height 152.4 cm (5'), weight 69.3 kg (152 lb 12.5 oz), SpO2 100 %. General: nondiaphoretic, no acute distress. Head/Neck: normocephalic/atraumatic. Oropharynx clear. CV: regular rate/rhythm, no murmurs/rubs/gallops. Pulm: clear to auscultation bilaterally. Extremities: edema in bilateral lower extremities to knees, no joint abnormalities. Neuro: Mental Status: alert and oriented to person HEENT/CN: PERRL, EOMI, visual meza unable to be assessed due to inability of patient to participate Face symmetric, Eyelids closed equally Hearing grossly intact Symmetric palate, midline tongue, no dysarthria. Normal shoulder shrug, normal head rotation strength Motor: Normal tone and bulk. Strength 4/5 in upper and lower extremities, decreased due to poor effort. No pronator drift. No tremor or abnormal movements Reflex: R: TJ 2+, BJ 2+, BRJ 2+, Pat 2+, AJ 2+, toes downgoing L: TJ 2+, BJ 2+, BRJ 2+, Pat 2+, AJ 2+, toes downgoing Sensation: intact to touch grossly Coordination: Rapid alternating movements grossly intact Gait: Normal gait, ambulates independently. Hospital Course: Cinthya Brown was admitted to the epilepsy service for further evaluation. Scalp electrodes were placed and video EEG monitoring was initiated. Depakote was initially decreased to 125 mg BID. She received 2 doses of 125 mg, then Depakote was discontinued. The initial thought was to see how she would do without depakote, with only her home dose of phenobarbital. Unfortunately, she did have more seizures with home dose of 60 mg phenobarbital with worsening interictal EEG activity. They are described in detail below. As a result, her phenobarbital was increased to 120 mg nightly incrementally. She has tolerated this dose well with control of seizure activity. We felt that she was safe for discharge, and that we should see how she does on the combination of Trileptal and increased dose of phenobarbital. If seizure control is definitely worse, then a trial of Zonegran would probably be a good idea Operations & Procedures: None Consultations: None Diagnostic Tests & Neuroimaging:: Date Study Results ECG MRI BRAIN 11/18/2014 -11/24/2014 video EEG Interictal Activity: Overall slow background.Frequent generalized spike wave and polyspike discharges, and right and left independent spikes and spike-wave complexes. Runs of polyspike activity sometimes more prominent on the right. EKG: EKG revealed normal sinus rhythm. Ictal Activity: 11/19/14 to 11/20/14 See #1: 22:06 Clinical: jerk out of sleep. Right arm extended with left arm flexion. EEG: no clear epileptiform activity. Likely tonic seizure 11/20/14 to 11/21/14: Seizure #2: 19:37 Clinical: speaking on the phone. Eyes start to twitch, becomes unresponsive. Proceeds to right arm extension and left arm flexion. EEG: no clear EEG origination. 11/21/14 to 11/22/14: Seizure #3 Clinical: asleep, arouses, stiffens, Proceeds to right arm extension and left arm flexion and generalized tonic-clonic activity. EEG: Seizure emerges out of runs of right-sided polyspike activity with left- sided slowing and sharp waves. Ictal EEG is considerably obscured by muscle artifact and not clearly lateralized. Seizure #4 Clinical: asleep, arouses, stiffens, Proceeds to left arm extension and right arm flexion and generalized tonic-clonic activity, almost a mirror image of seizure #3. EEG: Seizure starts with left-sided sharp wave evolving rapidly into bilateral polyspike activity. Ictal EEG is considerably obscured by muscle artifact and not clearly lateralized. 11/22/14 to 11/23/14: No seizures INTERPRETATION: This EEG is abnormal due to generalized slowing and generalized as well as multifocal epileptiform discharges. Seizures captured suggest either multifocal origin, or unclear origin with variable spread pattern giving mirrror-image asymmetric seizures. 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 The EEG was looking worse off Depakote, but seems closer to baseline now. We are increasing the dose of phenobarbital. The flury of seizures following the cessation of Depakote seems to be dying down, increasing the dose of phenobarbital may have helped. Labs: Recent Results (from the past 24 hour(s)) ELECTROLYTES PANEL Result Value Ref Range Sodium 139 135 - 145 mmol/L Potassium 3.4 (*) 3.5 - 5.0 mmol/L Chloride 97 (*) 98 - 107 mmol/L CO2 30 22 - 31 mmol/L Anion Gap 12 5 - 15 mmol/L BUN Result Value Ref Range BUN 17 8 - 18 mg/dL CREATININE Result Value Ref Range Creatinine 0.54 (*) 0.70 - 1.20 mg/dL Estimated GFR >60 >=60 HEPATIC FUNCTION PANEL Result Value Ref Range Total Protein 6.7 6.1 - 8.0 gm/dL Albumin 4.0 3.2 - 5.2 gm/dL AST 22 0 - 30 unit/L ALT 25 0 - 30 unit/L Alk Phos 108 (*) 40 - 104 unit/L Total Bilirubin <0.2 (*) 0.2 - 1.3 mg/dL Bili, Direct <0.1 0.0 - 0.3 mg/dL PHENOBARBITAL LEVEL Result Value Ref Range Phenobarb Lvl 25.0 15.0 - 40.0 mg/L VALPROIC ACID LEVEL, TOTAL Result Value Ref Range Valproic Lvl 42 HEMOGRAM Result Value Ref Range WBC 3.2 (*) 4.0 - 10.0 x10(3)/mcL RBC 4.22 3.93 - 5.22 x10(6)/mcL Hemoglobin 11.0 (*) 11.2 - 15.7 gm/dL Hematocrit 34.0 34.0 - 45.0 % MCV 80.6 79.0 - 94.0 fL MCH 26.1 (*) 26.6 - 32.2 pg MCHC 32.4 32.0 - 36.5 gm/dL Platelets 182 145 - 370 x10(3)/mcL RDWSD 47.0 (*) 35.0 - 46.0 fL RDWCV 16.0 (*) 10.9 - 14.4 % MPV 9.9 9.0 - 12.0 fL Ref. Range 11/18/2014 19:30 Oxcarbazep Met ([facility]) Latest Range: 3 - 35 mcg/mL 36 (H) Pending Studies and Lab Data: None. Vital Signs at Discharge: BP: 133/72 mmHg, Heart Rate: 104, Temp: 36.5 ??C (97.7 ??F), Resp: 18, BMI (Calculated): 33.9 Height: 147.3 cm (4' 10) (11/18/142199) Weight - Scale: 73.4 kg (161 lb 13.1 oz) (11/18/142199) Functional and Cognitive Status: Unchanged from admission. Physical Exam at Discharge: Vitals: Temp: [36.3 ??C (97.3 ??F)-37.1 ??C (98.8 ??F)] Heart Rate: [96-103] Resp: [18-22] BP: (116-147)/(57-83) SpO2: [96 %-98 %] Gen: NAD Neuro Exam: MS: Awake, alert, oriented to person, tracks examiner, talks in short sentences CN: PERRL, conjugate eyes, no facial asymmetry Motor: Normal bulk and tone. Spontaneous movements with full strengths in all limbs Sensation: intact to light touch throughout Discharge Conditions/Prognosis: Stable. Discharge to: Home. Updated Allergies/ADRs: Allergies Allergen Reactions ??? Amoxicillin-Pot Clavulanate Rash ??? Risedronate Sodium Nausea And Vomiting Immunizations Given this Hospitalization: There is no immunization history on file for this patient. Discharge Medications: Your Medications Continued medications with new dosing Dose Details * PHENobarbital 60 mg Tab Commonly known as: LUMINAL Take 2 tablets by mouth nightly. What changed: You were already taking a medication with the same name, and this prescription was added. Make sure you understand how and when to take each. 120 mg Quantity: 120 tablet Refills: 3 * Notice: This list has 2 medication(s) that are the same as other medications prescribed for you. Read the directions carefully, and ask your doctor or other care provider to review them with you. Continued medications, unchanged Dose Details atorvastatin 40 mg Tab Commonly known as: LIPITOR Take 40 mg by mouth daily. 40 mg Refills: 0 CALCIUM CARB-VIT D3-IPRIFLAVON ORAL Take by mouth 3 times daily. Refills: 0 diaZEPam 12.5-15-17.5-20 mg Kit Commonly known as: DIASTAT ACUDIAL Place 15 mg rectally as needed (1 syringe for cluster of seizures). 15 mg Quantity: 1 kit Refills: 3 esomeprazole 40 mg Cpdr Commonly known as: NexIUM Take 40 mg by mouth 2 times daily. 40 mg Refills: 0 ferrous sulfate 325 mg (65 mg iron) Tab Take 325 mg by mouth 2 times daily. 325 mg Refills: 0 furosemide 40 mg Tab Commonly known as: LASIX Take 40 mg by mouth daily. 40 mg Refills: 0 LORazepam 1 mg Tab Commonly known as: ATIVAN Take 1 tablet by mouth. Take 1 tab after seizure. May repeat up to 4mg in 24 hours 1 mg Quantity: 30 tablet Refills: 5 midazolam (PF) 5 mg/mL Soln Commonly known as: VERSED 1 mL by Nasal route daily as needed (give 1 ml via atomizer for cluster of seizures). 5 mg Quantity: 2 mL Refills: 3 TRILEPTAL 300 mg Tab Take 2 tablets by mouth 3 times daily. Generic drug: OXcarbazepine 600 mg Quantity: 180 tablet Refills: 11 STOPPED Medications DEPAKOTE 250 mg Tbec Generic drug: divalproex levOCARNitine 330 mg Tab Commonly known as: CARNITOR Smoking Status at Discharge: Non smoker. Instructions Given to Patient at Discharge: Patient Instructions After Visit Summary: We hope that you have had a positive experience at the [facility] Epilepsy Monitoring Unit. Here is some general information about the details of your stay, and what comes next. YOUR DIAGNOSIS: Epilepsy Since you were off of medications for a period of time:You may be at risk for having a seizure whenyou go home. Make sure someone who knows about your seizures stays with you and knows what to do incase you have one. ??? You may initially have side effects from going back on medications even though you were on thembefore. Be careful when engaging in any activities. ??? You may have memory problems and forget some of the instructions given to you or the answers toquestions that you may have had about your stay. Refer to your discharge paperwork for instructions. Write down your questions to bring to your follow up appointment. MEDICATIONS CHANGES: STOP taking this medication: Depakote & Carnitor START taking this new medication: Increase phenobarbital to 120 mg at night. ??? Always take your medication as prescribed by your physician. Ask your nurse to help you arrangea convenient schedule for taking your medication. ??? Learn how to obtain medication refills. ??? Get a Medic Alert bracelet, necklace or card from your pharmacy and always carry it with you. ??? Carry the telephone numbers of your doctor and your hospital and a list of your medications in case you should suddenly need emergency medical treatment. ??? Seizure medications have side effects. You should discuss side effects with your provider. Mostepilepsy medications have similar ???brain related?? side effects which include sleepiness, dizziness, mood changes, balance problems, memory problems and vision problems. Some may cause weight changes. You may also obtain printed information about side effects of your medication. ??? Check with your provider before taking wkmo-ldm-nlexour medications or herbal therapies. These can interfere with how well your seizure medications work. FOLLOWUP APPOINTMENT: You will have an outpatient followup appointment in the neurology clinic at [facility]. If not already listed in this document, we will contact you to schedule this appointment. -- If 1 week passes by after you are discharged and you still do not have an appointment, please call [phone]. Future Appointments Provider Department Dept Phone 12/31/2014 2:15 PM Terri Hsu APRN Neurology [phone] Joint Appt Nurse Visit, Neurology Neurology [phone] Joint Appt Seizure Clinic, Questionnaire Neurology [phone] Specific instructions related to your condition: ??? Call your doctor or seek medical attention if you experience an event lasting more than 5 minutes. ??? Advise your family and friends that if you have an episode, they should position you on a flat carpeted surface if possible, in a clear area, to avoid injury. They should turn you on your side ifyou start to vomit. Keep track of the date and time the event started, how long it lasted, whether or not you lost consciousness, a description of your body movements, what provoked it (if known), and any injuries you suffered. ??? Activity restrictions:To minimize your risk of injury, we recommend the following: Take showersinstead of baths. Do not swim unsupervised. Avoid scuba diving and other underwater activities. Avoid hazardous activities such as mountain climbing, fires, and activities involving heights. Avoid using heavy machinery, such as chainsaws. ?? Driving restrictions: Does not drive. Not applicable. ?? Diet: As before. For questions regarding this document or issues relating to this hospitalization on the Neurology Service, please contact your inpatient physician through the [facility] . Issues after hours and on weekends will be handled by the Neurology staff on-call. General Instructions None Future Appointments Provider Department Dept Phone 12/31/2014 2:15 PM Terri Hsu APRN Neurology [phone] Joint Appt Nurse Visit, Neurology Neurology [phone] Joint Appt Seizure Clinic, Questionnaire Neurology [phone] Future Appointments Date Time Provider Department Center 12/31/2014 2:15 PM Terri Hsu APRN [place] [facility] Primary Care Provider: CEE JOHNSON MD [place] [id number] / [facility] [id number] Discharge References/Attachments None documented in this encounter Discharge Instructions * Patient Instructions* Marcella Kyle - 11/24/2014 10:02 AM EDT After Visit Summary: We hope that you have had a positive experience at the [facility] Epilepsy Monitoring Unit. Here is some general information about the details of your stay, and what comes next. YOUR DIAGNOSIS: Epilepsy Since you were off of medications for a period of time:You may be at risk for having a seizure whenyou go home. Make sure someone who knows about your seizures stays with you and knows what to do incase you have one. ??? You may initially have side effects from going back on medications even though you were on thembefore. Be careful when engaging in any activities. ??? You may have memory problems and forget some of the instructions given to you or the answers toquestions that you may have had about your stay. Refer to your discharge paperwork for instructions. Write down your questions to bring to your follow up appointment. MEDICATIONS CHANGES: STOP taking this medication: Depakote & Carnitor START taking this new medication: Increase phenobarbital to 120 mg at night. ??? Always take your medication as prescribed by your physician. Ask your nurse to help you arrangea convenient schedule for taking your medication. ??? Learn how to obtain medication refills. ??? Get a Medic Alert bracelet, necklace or card from your pharmacy and always carry it with you. ??? Carry the telephone numbers of your doctor and your hospital and a list of your medications in case you should suddenly need emergency medical treatment. ??? Seizure medications have side effects. You should discuss side effects with your provider. Mostepilepsy medications have similar ???brain related?? side effects which include sleepiness, dizziness, mood changes, balance problems, memory problems and vision problems. Some may cause weight changes. You may also obtain printed information about side effects of your medication. ??? Check with your provider before taking [id number] medications or herbal therapies. These can interfere with how well your seizure medications work. FOLLOWUP APPOINTMENT: You will have an outpatient followup appointment in the neurology clinic at [facility]. If not already listed in this document, we will contact you to schedule this appointment. -- If 1 week passes by after you are discharged and you still do not have an appointment, please call [phone]. Future Appointments Provider Department Dept Phone 12/31/2014 2:15 PM Terri Hsu APRN Neurology [phone] Joint Appt Nurse Visit, Neurology Neurology [phone] Joint Appt Seizure Clinic, Questionnaire Neurology [phone] Specific instructions related to your condition: ??? Call your doctor or seek medical attention if you experience an event lasting more than 5 minutes. ??? Advise your family and friends that if you have an episode, they should position you on a flat carpeted surface if possible, in a clear area, to avoid injury. They should turn you on your side ifyou start to vomit. Keep track of the date and time the event started, how long it lasted, whether or not you lost consciousness, a description of your body movements, what provoked it (if known), and any injuries you suffered. ??? Activity restrictions:To minimize your risk of injury, we recommend the following: Take showersinstead of baths. Do not swim unsupervised. Avoid scuba diving and other underwater activities. Avoid hazardous activities such as mountain climbing, fires, and activities involving heights. Avoid using heavy machinery, such as chainsaws. ?? Driving restrictions: Does not drive. Not applicable. ?? Diet: As before. For questions regarding this document or issues relating to this hospitalization on the Neurology Service, please contact your inpatient physician through the [facility] . Issues after hours and on weekends will be handled by the Neurology staff on-call. documented in this encounter Medications at Time of Discharge Medication Sig Dispensed Refills Start Date End Date esomeprazole (NEXIUM) 40 mg Capsule, Delayed Release(E.C.) Take 40 mg by mouth daily. Reported on 11/18/2016 ferrous sulfate 325 mg (65 mg iron) Tablet Take 325 mg by mouth daily. atorvastatin (LIPITOR) 40 mg tablet Take 40 mg by mouth daily. PHENobarbital (LUMINAL) 60 mg Tablet Take 2 tablets by mouth nightly. 120 tablet 3 11/24/2014 03/11/2016 TRILEPTAL 300 mg TabletIndications:Epil epsy seizure, generalized, convulsive Take 2 tablets by mouth 3 times daily. 180 tablet 11 10/01/2014 10/05/2015 midazolam, PF, (VERSED) 5 mg/mL Solution 1 mL by Nasal route daily as needed (give 1 ml via atomizer for cluster of seizures). 2 mL 3 08/27/2014 08/31/2018 diaZEPam (DIASTAT ACUDIAL) 12.5-15-17.5-[address] 15 mg rectally as needed (1 syringe for cluster of seizures). 1 kit 3 08/27/2014 05/26/2015 IPRIFLAV/CA CARBONATE/VIT D3 (CALCIUM CARB-VIT D3-IPRIFLAVON ORAL) Take by mouth 3 times daily. 01/06/2016 LORazepam (ATIVAN) 1 mg tabletIndications:Epil epsy seizure, generalized, convulsive Take 1 tablet by mouth. Take 1 tab after seizure. May repeat up to 4mg in 24 hours 30 tablet 5 12/07/2011 02/02/2015 furosemide (LASIX) 40 mg tablet Take 40 mg by mouth daily. 12/06/2010 08/11/2015 documented as of this encounter Progress Notes * Jamaica Shabazz RN - 11/24/2014 3:40 PM EDT Discharge information reviewed with patient and questions were answered. Rx for phenobarbital givento patients mother along with patients home medication of trileptal. Hep cap removed before discharge. Pt tolerated this well. 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 * Shashi Mckee MD - 11/24/2014 10:04 AM EDT Neurology Progress Note Patient Name: Cinthya Brown Admit Date: 11/18/2014 Attending: Dr. Mckee Patient ID: Cinthya Brown is a 54 y.o. left-handed woman here for depakote taper under VEEG monitoring Active Issues: Epilepsy Secondary Problems: Mental retardation Sleep apnea Gastritis (suspected due to depakote) Interval History: - As per nursing and patient's guardian, no issues or seizures overnight. They are prepared for discharge home today. Medications: Scheduled Meds: ??? PHENobarbital 121.5 mg Oral Nightly ??? atorvastatin 40 mg Oral QPM ??? esomeprazole 40 mg Oral BID ??? ferrous sulfate 325 mg Oral BID WC ??? furosemide 40 mg Oral Daily ??? levOCARNitine 330 mg Oral BID ??? sodium chloride 0.9 % 5 mL Intravenous BID ??? OXcarbazepine 600 mg Oral TID Continuous Infusions: PRN Meds:.sodium chloride 0.9 %, lidocaine, acetaminophen, docusate sodium, bisacodyl, magnesium hydroxide Physical Exam: Vitals: Temp: [36.5 ??C (97.7 ??F)] Heart Rate: [95-104] Resp: [18] BP: (121-133)/(68-72) SpO2: [97 %-99 %] Gen: NAD Neuro Exam: MS: Awake, alert, oriented to person, tracks examiner, talks in short sentences CN: PERRL, conjugate eyes, no facial asymmetry Motor: Normal bulk and tone. Spontaneous movements with full strengths in all limbs Sensation: intact to light touch throughout Labs: No results found for this or any previous visit (from the past 24 hour(s)). Diagnostic Tests and Imaging: VEEG report to follow Assessment / Plan: Cinthya Brown is a 54 y.o. left-handed woman with h/o mental retardation, recent intractable gastritis (possible due to depakote) and epilepsy here for Depakote taper on video EEG monitoring as she is at a risk for status epilepticus. She is at a high risk for seizures and status epilepticus whileAED is tapered off, warranting inpatient admission for close observation and safety precautions. Nomore seizures since increasing phenobarbital to 120 mg qHS. If patient still has more seizures, consider adding Zonegran as an outpatient. 1. Discharge home today 2. Depakote stopped on 11/19 and discontinue Carnitor as this supplement is no longer needed 3. Continue remaining medications: - Phenobarbital 120 mg qHS - Trileptal 600 mg TID - Nexium 40 mg BID - Lasix 40 mg daily - Lipitor 40 mg daily - Ferrous sulfate 325 mg BID - Multivitamin daily 8. Prophylaxis: Tylenol for pain, ambulate frequently to prevent DVTs. CODE STATUS: Full Code Yuki Bethea MD General Neurology 5104 Neurology Attending I saw and evaluated the patient with the neurology team. I have reviewed the resident's history during the visit and I agree with the details as written. My physical examination confirms the resident's findings. The assessment and plan were formulated in discussion with me at the time of the visit and I agree with them as documented. Major issues addressed and Plan: Patient well known to me from the past. She has moderate mental retardation other etiology. MRI scan is normal. Previous EEGs have shown generalized and bilateral independent abnormalities. Seizures were reasonably well controlled on her regimen of phenobarbital, Trileptal and Depakote, along with the vagus nerve stimulator. However she has developed significant gastritis attributed to Depakote, and attempts to taper the medication as an outpatient have been unsuccessful owing to clusters of seizures. She is admitted for inpatient cessation of Depakote and management of acute problems Exam is stable. Her mood is good. She repeats the same phrases over and over again. She inconsistently follows directions. No clearly focal abnormalities. The video EEG recording so far shows a slow theta background, and generalized as well as bilateral independent spike wave and polyspike discharges. Several seizures have been recorded, and these appear to be asymmetric mirror image tonic-clonic seizures. Depakote has been stopped, and we will try and control withdrawal seizures with benzodiazepines andphenobarbital. We will see whether she can be managed on Trileptal and phenobarbital alone, or whether a third drug such as Zonegran or topiramate would need to be added. She is previously had trialsof Tegretol, Keppra and Lamictal that were not beneficial. So far she is doing well. The cluster of seizures associated with stopping Depakote seems to have subsided. We have increased her dose of phenobarbital, up to 120 mg each bedtime, and he is tolerating it well. She can be discharged today. Need for hospitalization: I certify that the patient requires inpatient care status due to a need for frequent neurologic monitoring. The patient is undergoing video-EEG recording with medication changes and is at risk for major seizures. Shashi Mckee MD [place] [address] Pager: [phone], #[phone] Email: [email or web address] Andera Robin RCP - 11/23/2014 8:57 PM EDT 11/23/142055 Non Invasive Ventilation Data NIV Device Patient owned device pt is independent with home cpap machine, will wear it when ready for bed. * Shashi Mckee MD - 11/23/2014 10:23 AM EDT Neurology Progress Note Patient Name: Cinthya Brown Admit Date: 11/18/2014 Attending: Dr. Mckee Patient ID: Cinthya Brown is a 54 y.o. L handed woman here for depakote taper under VEEG monitoring Active Issues: Epilepsy Secondary Problems: Mental retardation Sleep apnea Gastritis (suspected due to depakote) Interval History: No seizures overnight Medications: Scheduled Meds: ??? PHENobarbital 121.5 mg Oral Nightly ??? atorvastatin 40 mg Oral QPM ??? esomeprazole 40 mg Oral BID ??? ferrous sulfate 325 mg Oral BID WC ??? furosemide 40 mg Oral Daily ??? levOCARNitine 330 mg Oral BID ??? sodium chloride 0.9 % 5 mL Intravenous BID ??? OXcarbazepine 600 mg Oral TID Continuous Infusions: PRN Meds:.sodium chloride 0.9 %, lidocaine, acetaminophen, docusate sodium, bisacodyl, magnesium hydroxide Physical Exam: Vitals: Temp: [36.3 ??C (97.3 ??F)-37.1 ??C (98.8 ??F)] Heart Rate: [96-103] Resp: [18-22] BP: (116-147)/(57-83) SpO2: [96 %-98 %] Gen: NAD Neuro Exam: MS: Awake, alert, oriented to person, tracks examiner, talks in short sentences CN: PERRL, conjugate eyes, no facial asymmetry Motor: Normal bulk and tone. Spontaneous movements with full strengths in all limbs Sensation: intact to light touch throughout Labs: No results found for this or any previous visit (from the past 24 hour(s)). Diagnostic Tests and Imaging: VEEG report to follow Assessment / Plan: Cinthya Brown is a 54 y.o. L handed woman with h/o mental retardation, recent intractable gastritis (?due to depakote) and epilepsy here for depakote taper on video EEG monitoring as she is at a risk for status epilepticus. She is at a high risk for seizures and status epilepticus while AED is tapered off, warranting inpatient admission for close observation and safety precautions. No more seizures since increasing phenobarbital to 90mg qhs and extra ativan after last sz, will go up to 120mg qhs per Dr. Mckee. If patient still has more seizures, consider adding Zonegran 1. 24 hour Video EEG monitoring 2. Seizure precautions 3. FU trileptal level 4. Utilize Ativan 2 mg IV for treatment of seizures 5. depakote stopped on 11/19 6. Phenobarbital increased to 120mg QHS to start tonight 7. Continue remaining home medications: - Trileptal 600 mg TID - Carnitor 330 mg BID - Nexium 40 mg BID - Lasix 40 mg daily - Lipitor 40 mg daily - Ferrous sulfate 325 mg BID - Multivitamin daily 8. Prophylaxis: Tylenol for pain, ambulate frequently to prevent DVTs. CODE STATUS: Full Code Marcella Kyle MD Neurology Resident, PGY4 Pager [phone] General Neurology 6169 Neurology Attending I saw and evaluated the patient with the neurology team. I have reviewed the resident's history during the visit and I agree with the details as written. My physical examination confirms the resident's findings. The assessment and plan were formulated in discussion with me at the time of the visit and I agree with them as documented. Major issues addressed and Plan: Patient well known to me from the past. She has moderate mental retardation other etiology. MRI scan is normal. Previous EEGs have shown generalized and bilateral independent abnormalities. Seizures were reasonably well controlled on her regimen of phenobarbital, Trileptal and Depakote, along with the vagus nerve stimulator. However she has developed significant gastritis attributed to Depakote, and attempts to taper the medication as an outpatient have been unsuccessful owing to clusters of seizures. She is admitted for inpatient cessation of Depakote and management of acute problems Exam is stable. Her mood is good. She repeats the same phrases over and over again. She inconsistently follows directions. No clearly focal abnormalities. The video EEG recording so far shows a slow theta background, and generalized as well as bilateral independent spike wave and polyspike discharges. Several seizures have been recorded, and these appear to be asymmetric mirror image tonic-clonic seizures. Depakote has been stopped, and we will try and control withdrawal seizures with benzodiazepines andphenobarbital. We will see whether she can be managed on Trileptal and phenobarbital alone, or whether a third drug such as Zonegran or topiramate would need to be added. She is previously had trialsof Tegretol, Keppra and Lamictal that were not beneficial. So ar she is doing well. The cluster of seizures associated with stopping Depakote seems to have subsided. We have increased her dose of phenobarbital, and we'll go up to 120 mg each bedtime startingtonight. If she is stable she can be discharged tomorrow Need for hospitalization: I certify that the patient requires inpatient care status due to a need for frequent neurologic monitoring. The patient is undergoing video-EEG recording with medication changes and is at risk for major seizures. Shashi Mckee MD [place] [address] Pager: [phone], #[phone] Email: [email or web address] * Andrea Robin RCP - 11/22/2014 9:02 PM EDT 11/22/14 2101 Non Invasive Ventilation Data NIV Device Patient owned device pt's own cpap unit, will wear it when ready. 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) Plan of Care Review Plan of Care Outcome Status ongoing (interventions implemented as appropriate) Progress no change OUTCOME EVALUATION NOTE: OUTCOME SUMMARY: Pt had 2 generalized seizures this shift (see progress notes for details) 2 mg ativan given PLAN MOVING FORWARD: Continue VEEG monitoring INDIVIDUALIZED FALL PREVENTION: Assistance: 2 assist Supervision: Nursing, caregiver Surveillance: JACK[facility] [employer] CPG GOAL OUTCOME EVALUATION: Goal: Individualization and Mutuality Outcome: Ongoing (Interventions Implemented as Appropriate) Goal: Fall Prevention-Safe Patient Handling Outcome: Ongoing (Interventions Implemented as Appropriate) 11/21/14 0901 11/21/14 1600 Safety Interventions Safety Precautions/Fall Reduction -- fall reduction program maintained;family at bedside;low bed;nonskid shoes/slippers when out of bed;seizure precautions Rodriguez Fall Risk History of Falling 25 -- Secondary Diagnosis 15 -- Ambulatory Aids 15 -- Intravenous Therapy/Heparin/Saline Lock 20 -- Gait/Transferring 20 -- Mental Status 15 -- Score 110 -- OTHER Rodriguez Fall Risk High -- Musculoskeletal Interventions Activity/Level of Assistance up in room;with 2-person assist -- Positioning -- up in chair Goal: Infection Control Outcome: Ongoing (Interventions Implemented as Appropriate) 11/21/14 1711 Safety Interventions Isolation Precautions standard precautions maintained Infection Prevention bronchial hygiene promoted;environmental surveillance;hydration promoted;nutrition promoted;promote handwashing Coping/Psychosocial Response Interventions Counseling calming techniques promoted;emotional support provided;reassurance provided;personal strengths integrated Goal: Discharge Needs Assessment Outcome: Ongoing (Interventions Implemented as Appropriate) Problem: Seizure Disorder/Epilepsy (Adult, Obstetrics) Goal: Signs and symptoms of listed potential problems will be absent or manageable (reference (Seizure Disorder/Epilepsy (Adult, Obstetrics)) CPG) Outcome: Ongoing (Interventions Implemented as Appropriate) 11/21/14 1711 Seizure Disorder/Epilepsy Problems Assessed (Seizure Disorder/Epilepsy) all Problems Present (Seizure Disorder/Epilepsy) none Problem: Skin Integrity Impairment, Risk/Actual (Adult, Obstetrics) Goal: Skin Integrity/Wound Healing Patient will demonstrate the desired outcomes. Outcome: Ongoing (Interventions Implemented as Appropriate) * Shashi Mckee MD - 11/22/2014 6:44 AM EDT Neurology Progress Note Patient Name: Cinthya Brown Admit Date: 11/18/2014 Attending: Dr. Mckee Patient ID: Cinthya Brown is a 54 y.o. L handed woman here for depakote taper under VEEG monitoring Active Issues: Epilepsy Secondary Problems: Mental retardation Sleep apnea Gastritis (suspected due to depakote) Interval History: Had 2 generalized seizure overnight, phenobarb increased to 90mg qhs on the 1st sz, and ativan 2mg given on the 2nd sz Medications: Scheduled Meds: ??? LORazepam ??? PHENobarbital 89.1 mg Oral Nightly ??? atorvastatin 40 mg Oral QPM ??? esomeprazole 40 mg Oral BID ??? ferrous sulfate 325 mg Oral BID WC ??? furosemide 40 mg Oral Daily ??? levOCARNitine 330 mg Oral BID ??? sodium chloride 0.9 % 5 mL Intravenous BID ??? OXcarbazepine 600 mg Oral TID Continuous Infusions: PRN Meds:.sodium chloride 0.9 %, lidocaine, acetaminophen, docusate sodium, bisacodyl, magnesium hydroxide Physical Exam: Vitals: Temp: [36.3 ??C (97.3 ??F)-36.7 ??C (98.1 ??F)] Heart Rate: [86-94] Resp: [16-18] BP: (120-132)/(56-74) SpO2: [94 %-96 %] Gen: NAD Neuro Exam: MS: Awake, alert, oriented to person, tracks examiner, talks in short sentences CN: PERRL, conjugate eyes, no facial asymmetry Motor: Normal bulk and tone. Spontaneous movements with full strengths in all limbs Sensation: intact to light touch throughout Labs: No results found for this or any previous visit (from the past 24 hour(s)). Diagnostic Tests and Imaging: VEEG report to follow Assessment / Plan: Cinthya Brown is a 54 y.o. L handed woman with h/o mental retardation, recent intractable gastritis (?due to depakote) and epilepsy here for depakote taper on video EEG monitoring as she is at a risk for status epilepticus. She is at a high risk for seizures and status epilepticus while AED is tapered off, warranting inpatient admission for close observation and safety precautions. 1. 24 hour Video EEG monitoring 2. Seizure precautions 3. FU trileptal level 4. Utilize Ativan 2 mg IV for treatment of seizures 5. depakote stopped on 11/19 6. Phenobarbital increased to 90mg QHS last night 7. Give 3 ampules of phenobarb if she seizes again 8. Continue remaining home medications: - Trileptal 600 mg TID - Phenobarbital 60 mg nightly - Carnitor 330 mg BID - Nexium 40 mg BID - Lasix 40 mg daily - Lipitor 40 mg daily - Ferrous sulfate 325 mg BID - Multivitamin daily 8. Prophylaxis: Tylenol for pain, ambulate frequently to prevent DVTs. CODE STATUS: Full Code Marcella Kyle MD Neurology Resident, PGY4 Pager [phone] General Neurology 5909 Neurology Attending I saw and evaluated the patient with the neurology team. I have reviewed the resident's history during the visit and I agree with the details as written. My physical examination confirms the resident's findings. The assessment and plan were formulated in discussion with me at the time of the visit and I agree with them as documented. Major issues addressed and Plan: Patient well known to me from the past. She has moderate mental retardation other etiology. MRI scan is normal. Previous EEGs have shown generalized and bilateral independent abnormalities. Seizures were reasonably well controlled on her regimen of phenobarbital, Trileptal and Depakote, along with the vagus nerve stimulator. However she has developed significant gastritis attributed to Depakote, and attempts to taper the medication as an outpatient have been unsuccessful owing to clusters of seizures. She is admitted for inpatient cessation of Depakote and management of acute problems Exam is stable. Her mood is good. She repeats the same phrases over and over again. She inconsistently follows directions. No clearly focal abnormalities. She is today. The video EEG recording so far shows a slow theta background, and generalized as well as bilateral independent spike wave and polyspike discharges. Several seizures have been recorded, and these appear to be asymmetric mirror image tonic-clonic seizures. Depakote has been stopped, and we will try and control withdrawal seizures with benzodiazepines andphenobarbital. We will see whether she can be managed on Trileptal and phenobarbital alone, or whether a third drug such as Zonegran or topiramate would need to be added. She is previously had trialsof Tegretol, Keppra and Lamictal that were not beneficial Need for hospitalization: I certify that the patient requires inpatient care status due to a need for frequent neurologic monitoring. The patient is undergoing video-EEG recording with medication changes and is at risk for major seizures. Shashi Mckee MD [place] [address] Pager: [phone], #[phone] Email: [email or web address] * Emilio Pugh RN - 11/22/2014 3:54 AM EDT Generalized seizure lasted approx 45 secs, HR up to 160s, 02 sat down to 77, non-rebreather applied. notified, ativan ordered and given. * Emilio Pugh RN - 11/22/2014 2:13 AM EDT Pt had generalized seizure, lasted approx 1 min 30 secs. HR as high as 160, 02 sat dipped down to 75, non-rebreather applied, pt is minimally verbal at baseline so unable to ask question to assess orientation, but she did begin to call her caregiver mommy as she had at baseline, Dr. Kyle notified, phenobarb increased and given. * Yuki Bethea V - 11/21/2014 1:02 PM EDT Neurology Progress Note Patient Name: Cinthya Brown Admit Date: 11/18/2014 Attending: Dr. Matta Patient ID: Cinthya Brown is a 54 y.o. left handed female with mental retardation and sleep apnea who is admitted to the video EEG monitoring unit for monitoring during Depakote taper. She is undergoing Depakote taper due to intractable gastritis. Active Issues: Seizures Secondary Problems: Mental retardation Sleep apnea Interval History: - As per nursing, the patient had 1 seizure overnight and a few seconds of clonus this morning. Sherequired no intervention. - Patient's guardian reports no other events overnight. They have no new concerns this morning. Medications: Scheduled Meds: ??? atorvastatin 40 mg Oral QPM ??? esomeprazole 40 mg Oral BID ??? ferrous sulfate 325 mg Oral BID WC ??? furosemide 40 mg Oral Daily ??? levOCARNitine 330 mg Oral BID ??? sodium chloride 0.9 % 5 mL Intravenous BID ??? OXcarbazepine 600 mg Oral TID ??? PHENobarbital 64.8 mg Oral Nightly Continuous Infusions: PRN Meds:.sodium chloride 0.9 %, lidocaine, acetaminophen, docusate sodium, bisacodyl, magnesium hydroxide Physical Exam: Vitals: Patient Vitals for the past 8 hrs: BP Temp Temp src Pulse Resp SpO2 11/21/14 1000 104/60 mmHg 36.6 ??C (97.9 ??F) Axillary 84 18 97 % 11/21/14 0600 124/66 mmHg 36.7 ??C (98.1 ??F) Axillary 89 18 97 % Gen: Patient of apparent stated age, awake, in NAD Neuro Exam: MS: Awake, alert, oriented to person CN: PERRL, EOMI grossly intact No facial asymmetry Palate elevates symmetrically, tongue protrudes midline Motor: Normal bulk and tone. Strength normal in all 4 extremities, not fully assessed due to poor effort Sensation: Grossly intact to light touch throughout Reflexes: DTRs present and symmetric bilaterally Coordination: Unable to assess. No tremor noted on exam Gait: Did not assess today Labs: No results found for this or any previous visit (from the past 24 hour(s)). Diagnostic Tests and Imaging: EEG as per separate procedure note Assessment / Plan: Cinthya Brown is a 54 y.o. female who presents for video EEG monitoring for better management of seizures while completing taper of Depakote. This medication is causing intractable gastritis and will need to be discontinued for this patient. As this antiepileptic medication will be withheld, the patient at a high risk for seizures and status epilepticus, warranting inpatient admission for close observation and safety precautions. Plan: 1. 24 hour Video EEG monitoring 2. Seizure precautions 3. Basic labs on admission, including AED levels 4. Utilize Ativan 2 mg IV for treatment of seizures 5. Discontinue Depakote EC to 125 mg today, last dose 11/19 at 0900 6. If patient has increased amount of seizures, consider increasing Phenobarbital to 90 mg nightly 7. Continue remaining home medications: - Trileptal 600 mg TID - Phenobarbital 60 mg nightly - Carnitor 330 mg BID - Nexium 40 mg BID - Lasix 40 mg daily - Lipitor 40 mg daily - Ferrous sulfate 325 mg BID - Multivitamin daily 7. Prophylaxis: Tylenol for pain, ambulate frequently to prevent DVTs. CODE STATUS: Full Code Associated attestation - Fam Matta MD - 11/21/2014 1:28 PM EDT Neurology (Staff) Addendum I saw and evaluated the patient. I have reviewed the resident's history, physical examination findings, assessment and plan during the visit and I agree with the details as written, unless otherwise specified as below. Fam Matta MD * Solitario Caicedo, RN - 11/21/2014 5:43 AM EDT EEG Monitor alarmed at 0540--Staff in immediately--pt appeared completely Asx--- * Yuki Bethea V - 11/20/2014 8:01 AM EDT Neurology Progress Note Patient Name: Cinthya Brown Admit Date: 11/18/2014 Attending: Dr. Matta Patient ID: Cinthya Brown is a 54 y.o. left handed female with mental retardation and sleep apnea who is admitted to the video EEG monitoring unit for monitoring during Depakote taper. She is undergoing Depakote taper due to intractable gastritis. Active Issues: Seizures Secondary Problems: Mental retardation Sleep apnea Interval History: - As per nursing, the patient has a few seconds of myoclonus overnight. She required no intervention. - Patient's guardian reports no other events overnight. She reports that the patient had a small amount of crying yesterday which usually precedes vomiting but did not yesterday. They have no new concerns this morning. Medications: Scheduled Meds: ??? atorvastatin 40 mg Oral QPM ??? esomeprazole 40 mg Oral BID ??? ferrous sulfate 325 mg Oral BID WC ??? furosemide 40 mg Oral Daily ??? levOCARNitine 330 mg Oral BID ??? sodium chloride 0.9 % 5 mL Intravenous BID ??? OXcarbazepine 600 mg Oral TID ??? PHENobarbital 64.8 mg Oral Nightly Continuous Infusions: PRN Meds:.sodium chloride 0.9 %, lidocaine, acetaminophen, docusate sodium, bisacodyl, magnesium hydroxide Physical Exam: Vitals: Patient Vitals for the past 8 hrs: BP Temp Temp src Pulse Resp SpO2 11/20/14 0613 130/56 mmHg 36.3 ??C (97.3 ??F) Oral 91 20 95 % Gen: Patient of apparent stated age, awake, in NAD Neuro Exam: MS: Awake, alert, oriented to person CN: PERRL, EOMI grossly intact No facial asymmetry Hearing grossly intact Palate elevates symmetrically, tongue protrudes midline Motor: Normal bulk and tone. Strength normal in all 4 extremities, not fully assessed due to poor effort Sensation: Grossly intact to light touch throughout Reflexes: DTRs present and symmetric bilaterally Coordination: Unable to assess. No tremor noted on exam Gait: Did not assess today Labs: No results found for this or any previous visit (from the past 24 hour(s)). Diagnostic Tests and Imaging: EEG as per separate procedure note Assessment / Plan: Cinthya Brown is a 54 y.o. female who presents for video EEG monitoring for better management of seizures while completing taper of Depakote. This medication is causing intractable gastritis and will need to be discontinued for this patient. As this antiepileptic medication will be withheld, the patient at a high risk for seizures and status epilepticus, warranting inpatient admission for close observation and safety precautions. Plan: 1. 24 hour Video EEG monitoring 2. Seizure precautions 3. Basic labs on admission, including AED levels 4. Utilize Ativan 2 mg IV for treatment of seizures 5. Discontinue Depakote EC to 125 mg today, last dose 11/19 at 0900 6. Continue remaining home medications: - Trileptal 600 mg TID - Phenobarbital 60 mg nightly - Carnitor 330 mg BID - Nexium 40 mg BID - Lasix 40 mg daily - Lipitor 40 mg daily - Ferrous sulfate 325 mg BID - Multivitamin daily 7. Prophylaxis: Tylenol for pain, ambulate frequently to prevent DVTs. CODE STATUS: Full Code Associated attestation - Fam Matta MD - 11/21/2014 1:28 PM EDT Neurology (Staff) Addendum I saw and evaluated the patient. I have reviewed the resident's history, physical examination findings, assessment and plan during the visit and I agree with the details as written, unless otherwise specified as below. One seizures last evening. Increase Pb to 90 mg QD if anther seizure occurs prior to discharge. Fam Matta MD * John Lima RN - 11/19/2014 3:04 PM EDT Patient Name: Cinthya Brown Patient Age: 54 y.o. Birthdate: 1960 Admit date: 11/18/2014 Attending Physician: Fam Matta MD Office of Care Management Clinical [place] (CRC) Geovanna Lima RN, BSN -[facility] NeuroSurgery Voice Mail [phone] Pager #[phone] Covering for Sheila Bal RN-[facility] Pager: [phone] INITIAL ASSESSMENT Room # 506 Chart reviewed. Patient and plan of care discussed in morning multidisciplinary rounds. REASON for HOSPITALIZATION: Evaluation of seizures CEE JOHNSON MD [address] [address] PROCEDURES / HOSPITAL EVENTS: Video EEG Monitoring PMHx: See e-dh CURRENT STATUS: Remains at baseline level of function. SOCIAL/FAMILY SUPPORTS: Guardian and caretakers INSURANCE COVERAGE/FINANCIAL ISSUES: Medicare AB/ [place] Medicaid ADVANCE DIRECTIVES: Guardianship REHAB TEAM CONSULTS: Not indicated at this time. OFFICE PROFESSIONALS: Not indicated at this time. ASSESSMENT/PLAN: Nursing assessment reviewed and spoke with bedside RN. No new post hospital care needs have been identified. No concerns have been voiced by patient or family requiring CRC intervention. Will continue to be available should needs arise. * Yuki Bethea V - 11/19/2014 10:44 AM EDT Neurology Progress Note Patient Name: Cinthya Brown Admit Date: 11/18/2014 Attending: Dr. Matta Patient ID: Cinthya Brown is a 54 y.o. left handed female with mental retardation and sleep apnea who is admitted to the video EEG monitoring unit for monitoring during Depakote taper. She is undergoing decrease in Depakote due to intractable gastritis. Active Issues: Seizures Secondary Problems: Mental retardation Sleep apnea Interval History: - As per nursing, no overnight events - Patient's guardian reports no overnight seizure activity. They have no new concerns this morning. Medications: Scheduled Meds: ??? atorvastatin 40 mg Oral QPM ??? divalproex 125 mg Oral BID ??? esomeprazole 40 mg Oral BID ??? ferrous sulfate 325 mg Oral BID WC ??? furosemide 40 mg Oral Daily ??? levOCARNitine 330 mg Oral BID ??? sodium chloride 0.9 % 5 mL Intravenous BID ??? OXcarbazepine 600 mg Oral TID ??? PHENobarbital 64.8 mg Oral Nightly Continuous Infusions: PRN Meds:.sodium chloride 0.9 %, lidocaine, acetaminophen, docusate sodium, bisacodyl, magnesium hydroxide Physical Exam: Vitals: Patient Vitals for the past 8 hrs: BP Temp Temp src Pulse Resp SpO2 11/19/14 1000 114/60 mmHg 36.7 ??C (98.1 ??F) Oral 98 18 100 % 11/19/14 0600 107/69 mmHg 36.5 ??C (97.7 ??F) Oral 86 20 100 % Gen: Patient of apparent stated age, awake, in NAD Neuro Exam: MS: Awake, alert, oriented to person CN: PERRL, EOMI grossly intact No facial asymmetry Hearing grossly intact Palate elevates symmetrically, tongue protrudes midline SCM and trap strength intact Motor: Normal bulk and tone. Strength normal in all 4 extremities Sensation: Grossly intact to light touch throughout Reflexes: DTRs present and symmetric bilaterally Coordination: Unable to assess. No tremor noted on exam Gait: Did not assess today Labs: Recent Results (from the past 24 hour(s)) ELECTROLYTES PANEL Result Value Ref Range Sodium 139 135 - 145 mmol/L Potassium 3.4 (*) 3.5 - 5.0 mmol/L Chloride 97 (*) 98 - 107 mmol/L CO2 30 22 - 31 mmol/L Anion Gap 12 5 - 15 mmol/L BUN Result Value Ref Range BUN 17 8 - 18 mg/dL CREATININE Result Value Ref Range Creatinine 0.54 (*) 0.70 - 1.20 mg/dL Estimated GFR >60 >=60 HEPATIC FUNCTION PANEL Result Value Ref Range Total Protein 6.7 6.1 - 8.0 gm/dL Albumin 4.0 3.2 - 5.2 gm/dL AST 22 0 - 30 unit/L ALT 25 0 - 30 unit/L Alk Phos 108 (*) 40 - 104 unit/L Total Bilirubin <0.2 (*) 0.2 - 1.3 mg/dL Bili, Direct <0.1 0.0 - 0.3 mg/dL PHENOBARBITAL LEVEL Result Value Ref Range Phenobarb Lvl 25.0 15.0 - 40.0 mg/L VALPROIC ACID LEVEL, TOTAL Result Value Ref Range Valproic Lvl 42 HEMOGRAM Result Value Ref Range WBC 3.2 (*) 4.0 - 10.0 x10(3)/mcL RBC 4.22 3.93 - 5.22 x10(6)/mcL Hemoglobin 11.0 (*) 11.2 - 15.7 gm/dL Hematocrit 34.0 34.0 - 45.0 % MCV 80.6 79.0 - 94.0 fL MCH 26.1 (*) 26.6 - 32.2 pg MCHC 32.4 32.0 - 36.5 gm/dL Platelets 182 145 - 370 x10(3)/mcL RDWSD 47.0 (*) 35.0 - 46.0 fL RDWCV 16.0 (*) 10.9 - 14.4 % MPV 9.9 9.0 - 12.0 fL DIFFERENTIAL, AUTOMATED Result Value Ref Range Neutrophils % 41.4 Neutr Abs (ANC) 1.34 (*) 1.50 - 6.30 x10(3)/mcL Lymphocytes % 46.9 Lymphocytes Abs 1.5 1.0 - 3.6 x10(3)/mcL Monocytes % 10.2 Monocyte Abs 0.3 0.2 - 1.0 x10(3)/mcL Eosinophils % 0.9 Eosinophils Abs 0.0 0.0 - 0.5 x10(3)/mcL Basophils % 0.3 Basophils Abs 0.0 0.0 - 0.2 x10(3)/mcL Immature Gran % 0.30 Carolyn Gran Abs 0.01 0.00 - 0.05 x10(3)/mcL Diagnostic Tests and Imaging: EEG as per separate procedure note Assessment / Plan: Cinthya Brown is a 54 y.o. female who presents for video EEG monitoring for better management of seizures while completing taper of Depakote. This medication is causing intractable gastritis and will need to be discontinued for this patient. As this antiepileptic medication will be withheld, the patient at a high risk for seizures and status epilepticus, warranting inpatient admission for close observation and safety precautions. Plan: 1. 24 hour Video EEG monitoring 2. Seizure precautions 3. Basic labs on admission, including AED levels 4. Utilize Ativan 2 mg IV for treatment of seizures 5. Discontinue Depakote EC to 125 mg today, last dose this am at 0900 6. Continue remaining home medications: - Trileptal 600 mg TID - Phenobarbital 60 mg nightly - Carnitor 330 mg BID - Nexium 40 mg BID - Lasix 40 mg daily - Lipitor 40 mg daily - Ferrous sulfate 325 mg BID - Multivitamin daily 7. Prophylaxis: Tylenol for pain, ambulate frequently to prevent DVTs. CODE STATUS: Full Code Associated attestation - Fam Matta MD - 11/19/2014 12:09 PM EDT Neurology (Staff) Addendum I saw and evaluated the patient. I have reviewed the resident's history, physical examination findings, assessment and plan during the visit and I agree with the details as written, unless otherwise specified as below. Fam Matta MD documented in this encounter H&P Notes * Yuki Bethea V - 11/18/2014 5:10 PM EDT [facility] NEUROLOGY HISTORY AND PHYSICAL Referring Provider: Terri Hsu APRN Presenting Diagnosis/Chief Complaint: Seizures History of Present Illness/Description of Symptoms: Cinthya Brown is a 54 y.o. left-handed female with mental retardation and sleep apnea who is admitted to the video EEG monitoring unit for monitoring during Depakote taper. The majority of her history was collected from her guardian, Lulu. The patient's PCP and GI wish to discontinue this medication due to intractable gastritis. During initial home taper, she has been unable to get completely off the medication. Her initial effective dose was Depakote 500 mg TID. After tapering down to 250mg daily, she starting having more seizures which were occuring in clusters and very difficult to stop. Lorazepam was not very helpful in controlling her clusters. She was put back up to 250 mg BID and her Trileptal was increased as well. Since that time she is having less seizures but is having intermittent nausea/vomiting again. Last episode of vomiting was last week. ?? Onset: Started at the age of 6 months ?? Semiology & Frequency: ?? #1: Arms and legs jerk, face twitches, eyes roll up, bites tongue, deep breathing (once a week or more). A couple of weeks ago, was having this type of seizure daily; Trileptal was increased and they have decreased in frequency. These seizures last for about a minute. ?? #2: Eyes flutter with chewing motion (frequency is less than once a week) ?? #3: One arm jerking, unsure of which arm (frequency is less than once a week) ?? Triggers: ?? Excitement, cold, sometimes unprovoked ?? History of generalized convulsion: Yes ?? Ever had tongue biting or urinary incontinence: Yes, both. ?? Daytime preponderance of seizures: Usually occur in sleep, sometimes during the day ?? Past medications tried: ?? Past: Phenobarbital, Lorazepam, Trileptal, Depakote, Lamictal (didn't work, hair fell out) ?? VNS placed in 2003 (very helpful) ?? Prior workup: ?? VEEG monitoring prior to 2003, guardian is unsure of results ?? MRI Brain (02/28/2002): FINDINGS; There are no intracranial signal abnormalities. The bilateral hippocampi are normally formed. The ventricles and subarachnoid spaces are normal in size and configuration. There is no midline shift or mass effect. The gradient recall sequences demonstrate normal signal. IMPRESSION: Normal. ?? Risk factors for epilepsy: ?? Head trauma: no ?? Family history: no ?? Meningoencephalitis: no ?? complications: no, her mother reports that patient was completely normal until receiving immunizations and then started to have seizures but past providers note that it was likely her seizures were not obvious until this age. ?? Complex febrile seizures: no ?? Risk factors for nonepileptic seizures: ?? History negative for greater than three seizures types, seizures greater than 5 minutes, prior psych tratment, hx of sz in close friend/relative, h/o suicide attempt, greater than 12 drinks per week Past Medical/Surgical History: Patient Active Problem List Diagnosis Code ??? Epilepsy 345.90 ??? Sleep apnea 780.57 ??? Mental retardation 319 No past surgical history on file. No current facility-administered medications on file prior to encounter. Current Outpatient Prescriptions on File Prior to Encounter Medication Sig Dispense Refill ??? DEPAKOTE 250 mg Tablet, Delayed Release (E.C.) Take 1 tablet by mouth 2 times daily. Brand namemedically necessary 60 tablet 0 ??? TRILEPTAL 300 mg Tablet Take 2 [...] forcluster of seizures). 1 kit 3 ??? PHENobarbital (LUMINAL) 30 mg tablet Take 2 tablets by mouth nightly. 60 tablet 5 ??? levoCARNitine (CARNITOR) 330 mg tablet Take 1 tablet by mouth 2 times daily. 60 tablet PRN ??? IPRIFLAV/CA CARBONATE/VIT D3 (CALCIUM CARB-VIT D3-IPRIFLAVON [...] tablet Take 40 mg by mouth daily. Allergies Allergen Reactions ??? Amoxicillin-Pot Clavulanate Rash ??? Risedronate Sodium Nausea And Vomiting Significant Family History: Denies family history of epilepsy and cancer. Psychiatric history: Denies Social History: reports that she has never smoked. She has never used smokeless tobacco. She reports that she does not drink alcohol or use illicit drugs. REVIEW OF SYSTEMS: General: no fevers or chills, denies weight change, denies fatigue Eyes: no vision changes, diplopia, or blurry vision. ENT: no sore throat or dysphagia, denies rhinorrhea. CVS: denies CP, palpitations Respiratory: denies SOB, denies cough. GI: Reports vomiting over a week ago : no dysuria or hematuria Musculoskeletal: no myalgias, no acute joint pain or swelling Skin: no rashes or bruises Endocrine: denies h/o DM, denies h/o thyroid disorder Neuro: see HPI Psych: no sleep disturbances Physical Exam: Blood pressure 134/79, pulse 89, temperature 36.2 ??C (97.2 ??F), temperature sourceAxillary, resp. rate 20, height 152.4 cm (5'), weight 69.3 kg (152 lb 12.5 oz), SpO2 100 %. General: nondiaphoretic, no acute distress. Head/Neck: normocephalic/atraumatic. Oropharynx clear. CV: regular rate/rhythm, no murmurs/rubs/gallops. Pulm: clear to auscultation bilaterally. Extremities: edema in bilateral lower extremities to knees, no joint abnormalities. Neuro: Mental Status: alert and oriented to person HEENT/CN: PERRL, EOMI, visual meza unable to be assessed due to inability of patient to participate Face symmetric, Eyelids closed equally Hearing grossly intact Symmetric palate, midline tongue, no dysarthria. Normal shoulder shrug, normal head rotation strength Motor: Normal tone and bulk. Strength 4/5 in upper and lower extremities, decreased due to poor effort. No pronator drift. No tremor or abnormal movements Reflex: R: TJ 2+, BJ 2+, BRJ 2+, Pat 2+, AJ 2+, toes downgoing L: TJ 2+, BJ 2+, BRJ 2+, Pat 2+, AJ 2+, toes downgoing Sensation: intact to touch grossly Coordination: Rapid alternating movements grossly intact Gait: Normal gait, ambulates independently. Data: No recent imaging/studies Assessment: This is a 54 y.o. y/o female who presents for video EEG monitoring for better management of seizures while completing taper of Depakote. This medication is causing intractable gastritis and will needto be discontinued for this patient. As this antiepileptic medication will be withheld, the patientat a high risk for seizures and status epilepticus, warranting inpatient admission for close observation and safety precautions. Plan: 1. Admit to neurology 2. 24 hour Video EEG monitoring 3. Seizure precautions 4. Basic labs on admission, including AED levels 5. Utilize Ativan 2 mg IV for treatment of seizures 5. Decrease Depakote EC to 125 mg BID starting on admission, continue remaining home medications: - Trileptal 600 mg TID - Phenobarbital 60 mg nightly - Carnitor 330 mg BID - Nexium 40 mg BID - Lasix 40 mg daily - Lipitor 40 mg daily - Ferrous sulfate 325 mg BID - Multivitamin daily 6. Prophylaxis: Tylenol for pain, ambulate frequently to prevent DVTs. CODE STATUS: Full Code Associated attestation - Fam Matta MD - 11/19/2014 12:09 PM EDT Neurology (Staff) Addendum I saw and evaluated the patient. I have reviewed the resident's history, physical examination findings, assessment and plan during the visit and I agree with the details as written, unless otherwise specified as below. 54 y/o woman with focal epilepsy admitted for safe taper of Depakote. Discussed rationale for admission with family. Will reduce Depakote to 125 mg BID, then stop. Standard VEEG procedures including rescue. Fam Matta MD documented in this encounter Procedure Notes * Shashi Mckee MD - 11/24/2014 7:13 AM EDT [facility] VIDEO-EEG MONITORING REPORT Patient: Cinthya Brown : 1960 Admit date: 11/18/2014 Date of report: 11/24/2014 ( from 11/22 to 11/23 Interpreting Physician: Tony Thomason MD BRIEF HISTORY/INDICATION FOR STUDY: Cinthya Brown is a 54 y.o. patient with epilepsy. VideoEEG wasperformed to assist in medication management. MEDICATIONS: Current Facility-Administered Medications Medication Dose Route Frequency Provider Last Rate Last Dose ??? PHENobarbital (LUMINAL) tablet 121.5 mg 121.5 mg Oral Nightly Marcella Kyle MD 121.5 mg at 11/23/142027 ??? atorvastatin (LIPITOR) tablet 40 mg 40 mg Oral QPM Yuki Bethea MD 40 mg at 11/23/14 174 ??? esomeprazole (NexIUM) capsule 40 mg 40 mg Oral BID Yuki Bethea MD 40 mg at 11/23/14 2030 ??? ferrous sulfate EC tablet 325 mg 325 mg Oral BID Yuki Bethea MD 325 mg at 11/23/14 1744 ??? furosemide (LASIX) tablet 40 mg 40 mg Oral Daily Yuki Bethea MD 40 mg at 11/23/14 0801 ??? levOCARNitine (CARNITOR) tablet 330 mg 330 mg Oral BID Yuki Bethea MD 330 mg at 11/23/142028 ??? sodium chloride 0.9 % flush 5 mL 5 mL Intravenous BID Yuki Bethea MD 5 mL at 11/23/142030 ??? sodium chloride 0.9 % flush 5-20 mL 5-20 mL Intravenous Q1 Min PRN Yuki Bethea MD ??? lidocaine (XYLOCAINE) 10 mg/mL (1 %) injection 3 mg 0.3 mL Subcutaneous Once PRN Yuki Bethea MD ??? acetaminophen (TYLENOL) tablet 650 mg 650 mg Oral Q4H PRN Yuki Bethea MD ??? docusate sodium (COLACE) capsule 100 mg 100 mg Oral BID PRN Yuki Bethea MD ??? bisacodyl (DULCOLAX) suppository 10 mg 10 mg Rectal Daily PRN Yuki Bethea MD ??? magnesium hydroxide (MILK OF MAGNESIA) oral suspension 10 mL 10 mL Oral Daily PRN Yuki Bethea MD ??? OXcarbazepine (TRILEPTAL) tablet 600 mg 600 mg Oral TID Yuki Bethea MD 600 mg at 11/23/14 2030 METHODS: A 21 channel digitized electroencephalogram was performed in the video/EEG monitoring unit. The 10/20 international system of electrode placement was used and bipolar and referential electrode montages were recorded. In addition to EEG the patient was monitored for EKG. Monitoring was continuous.The patient was under constant nursing supervision during the recordings. FINDINGS: Wakefulness: During the awake state with the eyes closed the background consisted of a normal amplitude, 5-7 Hz posterior reactive rhythm that attenuated appropriately with eye opening. Beta activity was distributed diffusely with an anterior predominance. There was a normal anterior-posterior voltage gradient.With eye opening the background activity changed to a low voltage mixture of beta, and occasional theta range frequencies. There were no significant asymmetries of background activity noted. Drowsiness and Sleep: With drowsiness there was some waxing and waning of the background rhythm with eventual replacement by a mixture of beta,delta and theta activity. Appropriate sleep patterns withsleep spindles and vertex were noted during sleep stage II. Deeper stages of sleep were characterized by generalized slowing. Interictal Activity: Overall slow background. Frequent generalized spike wave and polyspike discharges, and right and left independent spikes and spike-wave complexes have resolved. Runs of polyspike activity sometimes more prominent on the right have also resolved. EKG: EKG revealed normal sinus rhythm. Ictal Activity: 11/19/14 to 11/20/14 See #1: 22:06 Clinical: jerk out of sleep. Right arm extended with left arm flexion. EEG: no clear epileptiform activity. Likely tonic seizure 11/20/14 to 11/21/14: Seizure #2: 19:37 Clinical: speaking on the phone. Eyes start to twitch, becomes unresponsive. Proceeds to right arm extension and left arm flexion. EEG: no clear EEG origination. 11/21/14 to 11/22/14: Seizure #3 Clinical: asleep, arouses, stiffens, Proceeds to right arm extension and left arm flexion and generalized tonic-clonic activity. EEG: Seizure emerges out of runs of right-sided polyspike activity with left- sided slowing and sharp waves. Ictal EEG is considerably obscured by muscle artifact and not clearly lateralized. Seizure #4 Clinical: asleep, arouses, stiffens, Proceeds to left arm extension and right arm flexion and generalized tonic-clonic activity, almost a mirror image of seizure #3. EEG: Seizure starts with left-sided sharp wave evolving rapidly into bilateral polyspike activity. Ictal EEG is considerably obscured by muscle artifact and not clearly lateralized. 11/22/14 to 11/23/14: No seizures 11/23/14 to 11/24/14 No seizures. INTERPRETATION: This EEG is abnormal due to generalized slowing and generalized as well as multifocal epileptiform discharges when on lower dose of phenobarbital alone. Seizures captured suggest either multifocal origin, or unclear origin with variable spread pattern giving mirrror-image asymmetric seizures. 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 EEG improved with increased dose of phenobarbital. The flurry of seizures following depakote discontinuation has stopped. Improvement likely due to the increased dose of phenobarbital. Félix Thomason, Clinical Neurophysiology Fellow Neurology Attending I have personally reviewed the EEG, and I agree with the details as written. The above report was formulated in discussion with me at the time of EEG reading, and I agree with it as documented. Shashi Mckee MD [place] [address] Pager: [phone], #[phone] Email: [email or web address] Shashi Mckee MD - 11/23/2014 4:59 PM EDTAssociated Order(s): VIDEO EEG MONITORING Procedure(s): ZVIDEO EEG MONITORING [facility] VIDEO-EEG MONITORING REPORT Patient: Cinthya Brown : 1960 Admit date: 11/18/2014 Date of report: 11/23/2014 ( from 11/22 to 11/23 Interpreting Physician: Shashi Mckee MD BRIEF HISTORY/INDICATION FOR STUDY: Cinthya Brown is a 54 y.o. patient with epilepsy. VideoEEG wasperformed to assist in medication management. MEDICATIONS: Current Facility-Administered Medications Medication Dose Route Frequency Provider Last Rate Last Dose ??? PHENobarbital (LUMINAL) tablet 121.5 mg 121.5 mg Oral Nightly Marcella Kyle MD ??? atorvastatin (LIPITOR) tablet 40 mg 40 mg Oral QPM Yuki Bethea MD 40 mg at 11/22/14 1600 ??? esomeprazole (NexIUM) capsule 40 mg 40 mg Oral BID Yuki Bethea MD 40 mg at 11/23/14 0801 ??? ferrous sulfate EC tablet 325 mg 325 mg Oral BID WC Yuki Bethea MD 325 mg at 11/23/14 0801 ??? furosemide (LASIX) tablet 40 mg 40 mg Oral Daily Yuki Bethea MD 40 mg at 11/23/14 0801 ??? levOCARNitine (CARNITOR) tablet 330 mg 330 mg Oral BID Yuki Bethea MD 330 mg at 11/23/14 0802 ??? sodium chloride 0.9 % flush 5 mL 5 mL Intravenous BID Yuki Bethea MD 5 mL at 11/23/14 0900 ??? sodium chloride 0.9 % flush 5-20 mL 5-20 mL Intravenous Q1 Min PRN Yuki Bethea MD ??? lidocaine (XYLOCAINE) 10 mg/mL (1 %) injection 3 mg 0.3 mL Subcutaneous Once PRN Yuki Bethea MD ??? acetaminophen (TYLENOL) tablet 650 mg 650 mg Oral Q4H PRN Yuki Bethea MD ??? docusate sodium (COLACE) capsule 100 mg 100 mg Oral BID PRN Yuki Bethea MD ??? bisacodyl (DULCOLAX) suppository 10 mg 10 mg Rectal Daily PRN Yuki Bethea MD ??? magnesium hydroxide (MILK OF MAGNESIA) oral suspension 10 mL 10 mL Oral Daily PRN Yuki Bethea MD ??? OXcarbazepine (TRILEPTAL) tablet 600 mg 600 mg Oral TID Yuki Bethea MD 600 mg at 11/23/14 1458 METHODS: A 21 channel digitized electroencephalogram was performed in the video/EEG monitoring unit. The 10/20 international system of electrode placement was used and bipolar and referential electrode montages were recorded. In addition to EEG the patient was monitored for EKG. Monitoring was continuous.The patient was under constant nursing supervision during the recordings. FINDINGS: Wakefulness: During the awake state with the eyes closed the background consisted of a normal amplitude, 5-7 Hz posterior reactive rhythm that attenuated appropriately with eye opening. Beta activity was distributed diffusely with an anterior predominance. There was a normal anterior-posterior voltage gradient.With eye opening the background activity changed to a low voltage mixture of beta, and occasional theta range frequencies. There were no significant asymmetries of background activity noted. Drowsiness and Sleep: With drowsiness there was some waxing and waning of the background rhythm with eventual replacement by a mixture of beta,delta and theta activity. Appropriate sleep patterns withsleep spindles and vertex were noted during sleep stage II. Deeper stages of sleep were characterized by generalized slowing. Interictal Activity: Overall slow background.Frequent generalized spike wave and polyspike discharges, and right and left independent spikes and spike-wave complexes. Runs of polyspike activity sometimes more prominent on the right. EKG: EKG revealed normal sinus rhythm. Ictal Activity: 11/19/14 to 11/20/14 See #1: 22:06 Clinical: jerk out of sleep. Right arm extended with left arm flexion. EEG: no clear epileptiform activity. Likely tonic seizure 11/20/14 to 11/21/14: Seizure #2: 19:37 Clinical: speaking on the phone. Eyes start to twitch, becomes unresponsive. Proceeds to right arm extension and left arm flexion. EEG: no clear EEG origination. 11/21/14 to 11/22/14: Seizure #3 Clinical: asleep, arouses, stiffens, Proceeds to right arm extension and left arm flexion and generalized tonic-clonic activity. EEG: Seizure emerges out of runs of right-sided polyspike activity with left- sided slowing and sharp waves. Ictal EEG is considerably obscured by muscle artifact and not clearly lateralized. Seizure #4 Clinical: asleep, arouses, stiffens, Proceeds to left arm extension and right arm flexion and generalized tonic-clonic activity, almost a mirror image of seizure #3. EEG: Seizure starts with left-sided sharp wave evolving rapidly into bilateral polyspike activity. Ictal EEG is considerably obscured by muscle artifact and not clearly lateralized. 11/22/14 to 11/23/14: No seizures INTERPRETATION: This EEG is abnormal due to generalized slowing and generalized as well as multifocal epileptiform discharges. Seizures captured suggest either multifocal origin, or unclear origin with variable spread pattern giving mirrror-image asymmetric seizures. 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 The EEG was looking worse off Depakote, but seems closer to baseline now. We are increasing the dose of phenobarbital. The flury of seizures following the cessation of Depakote seems to be dying down, increasing the dose of phenobarbital may have helped. Shashi Mckee MD Department of Neurology [place] [id number] Pager: [phone], #[phone] Email: [email or web address] [email or web address] Shashi Mckee MD - 11/22/2014 4:23 PM EDTAssociated Order(s): VIDEO EEG MONITORING Procedure(s): ZVIDEO EEG MONITORING [facility] VIDEO-EEG MONITORING REPORT Patient: Cinthya Brown : 1960 Admit date: 11/18/2014 Date of report: 11/22/2014 (from 11/21 to 11/22) Interpreting Physician: Shashi Mckee MD BRIEF HISTORY/INDICATION FOR STUDY: Cinthya Brown is a 54 y.o. patient with epilepsy. VideoEEG wasperformed to assist in medication management. MEDICATIONS: Current Facility-Administered Medications Medication Dose Route Frequency Provider Last Rate Last Dose ??? PHENobarbital (LUMINAL) tablet 89.1 mg 89.1 mg Oral Nightly Marcella Kyle MD ??? atorvastatin (LIPITOR) tablet 40 mg 40 mg Oral QPM Yuki Bethea MD 40 mg at 11/22/14 1600 ??? esomeprazole (NexIUM) capsule 40 mg 40 mg Oral BID Yuki Bethea MD 40 mg at 11/22/14 0826 ??? ferrous sulfate EC tablet 325 mg 325 mg Oral BID Yuki Bethea MD 325 mg at 11/22/14 1600 ??? furosemide (LASIX) tablet 40 mg 40 mg Oral Daily Yuki Bethea MD 40 mg at 11/22/14 0826 ??? levOCARNitine (CARNITOR) tablet 330 mg 330 mg Oral BID Yuki Bethea MD 330 mg at 11/22/14 0826 ??? sodium chloride 0.9 % flush 5 mL 5 mL Intravenous BID Yuki Bethea MD 5 mL at 11/22/14 0826 ??? sodium chloride 0.9 % flush 5-20 mL 5-20 mL Intravenous Q1 Min PRN Yuki Bethea MD ??? lidocaine (XYLOCAINE) 10 mg/mL (1 %) injection 3 mg 0.3 mL Subcutaneous Once PRN Yuki Bethea MD ??? acetaminophen (TYLENOL) tablet 650 mg 650 mg Oral Q4H PRN Yuki Bethea MD ??? docusate sodium (COLACE) capsule 100 mg 100 mg Oral BID PRN Yuki Bethea MD ??? bisacodyl (DULCOLAX) suppository 10 mg 10 mg Rectal Daily PRN Yuki Bethea MD ??? magnesium hydroxide (MILK OF MAGNESIA) oral suspension 10 mL 10 mL Oral Daily PRN Yuki Bethea MD ??? OXcarbazepine (TRILEPTAL) tablet 600 mg 600 mg Oral TID Yuki Bethea MD 600 mg at 11/22/14 1559 METHODS: A 21 channel digitized electroencephalogram was performed in the video/EEG monitoring unit. The 10/20 international system of electrode placement was used and bipolar and referential electrode montages were recorded. In addition to EEG the patient was monitored for EKG. Monitoring was continuous.The patient was under constant nursing supervision during the recordings. FINDINGS: Wakefulness: During the awake state with the eyes closed the background consisted of a normal amplitude, 5-7 Hz posterior reactive rhythm that attenuated appropriately with eye opening. Beta activity was distributed diffusely with an anterior predominance. There was a normal anterior-posterior voltage gradient.With eye opening the background activity changed to a low voltage mixture of beta, and occasional theta range frequencies. There were no significant asymmetries of background activity noted. Drowsiness and Sleep: With drowsiness there was some waxing and waning of the background rhythm with eventual replacement by a mixture of beta,delta and theta activity. Appropriate sleep patterns withsleep spindles and vertex were noted during sleep stage II. Deeper stages of sleep were characterized by generalized slowing. Interictal Activity: Overall slow background.Frequent generalized spike wave and polyspike discharges, and right and left independent spikes and spike-wave complexes. Runs of polyspike activity more prominent on the right. EKG: EKG revealed normal sinus rhythm. Ictal Activity: 11/19/14 to 11/20/14 See #1: 22:06 Clinical: jerk out of sleep. Right arm extended with left arm flexion. EEG: no clear epileptiform activity. Likely tonic seizure 11/20/14 to 11/21/14: Seizure #2: 19:37 Clinical: speaking on the phone. Eyes start to twitch, becomes unresponsive. Proceeds to right arm extension and left arm flexion. EEG: no clear EEG origination. 11/21/14 to 11/22/14: Seizure #3 Clinical: asleep, arouses, stiffens, Proceeds to right arm extension and left arm flexion and generalized tonic-clonic activity. EEG: Seizure emerges out of runs of right-sided polyspike activity with left- sided slowing and sharp waves. Ictal EEG is considerably obscured by muscle artifact and not clearly lateralized. Seizure #4 Clinical: asleep, arouses, stiffens, Proceeds to left arm extension and right arm flexion and generalized tonic-clonic activity, almost a mirror image of seizure #3. EEG: Seizure starts with left-sided sharp wave evolving rapidly into bilateral polyspike activity. Ictal EEG is considerably obscured by muscle artifact and not clearly lateralized. INTERPRETATION: This EEG is abnormal due to generalized slowing and generalized as well as multifocal epileptiform discharges. Seizures captured suggest either multifocal origin, or unclear origin with variable spread pattern giving mirrror-image asymmetric seizures. 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 The EEG is looking worse off Depakote. We are increasing the dose of phenobarbital. Shashi Mckee MD [place] [address] Pager: [phone], #[phone] Email: [email or web address] [place] Tony Thomason MD - 11/21/2014 7:30 AM EDT [facility] VIDEO-EEG MONITORING REPORT Patient: Cinthya Brown : 1960 Admit date: 11/18/2014 Date of report: 11/21/2014 Interpreting Physician: Tony Thomason MD BRIEF HISTORY/INDICATION FOR STUDY: Cinthya Brown is a 54 y.o. patient with epilepsy. VideoEEG wasperformed to assist in medication management. MEDICATIONS: Current Facility-Administered Medications Medication Dose Route Frequency Provider Last Rate Last Dose ??? atorvastatin (LIPITOR) tablet 40 mg 40 mg Oral QPM Yuki Bethea MD 40 mg at 11/20/14 1735 ??? esomeprazole (NexIUM) capsule 40 mg 40 mg Oral BID Yuki Bethea MD 40 mg at 11/20/14 2100 ??? ferrous sulfate EC tablet 325 mg 325 mg Oral BID WC Yuki Bethea MD 325 mg at 11/20/14 1735 ??? furosemide (LASIX) tablet 40 mg 40 mg Oral Daily Yuki Bethea MD 40 mg at 11/20/14 0835 ??? levOCARNitine (CARNITOR) tablet 330 mg 330 mg Oral BID Yuki Bethea MD 330 mg at 11/20/14 2100 ??? sodium chloride 0.9 % flush 5 mL 5 mL Intravenous BID Yuki Bethea MD 5 mL at 11/20/14 2100 ??? sodium chloride 0.9 % flush 5-20 mL 5-20 mL Intravenous Q1 Min PRN Yuki Bethea MD ??? lidocaine (XYLOCAINE) 10 mg/mL (1 %) injection 3 mg 0.3 mL Subcutaneous Once PRN Yuki Bethea MD ??? acetaminophen (TYLENOL) tablet 650 mg 650 mg Oral Q4H PRN Yuki Bethea MD ??? docusate sodium (COLACE) capsule 100 mg 100 mg Oral BID PRN Yuki Bethea MD ??? bisacodyl (DULCOLAX) suppository 10 mg 10 mg Rectal Daily PRN Yuki Bethea MD ??? magnesium hydroxide (MILK OF MAGNESIA) oral suspension 10 mL 10 mL Oral Daily PRN Yuki Bethea MD ??? OXcarbazepine (TRILEPTAL) tablet 600 mg 600 mg Oral TID Yuki Bethea MD 600 mg at 11/20/14 2100 ??? PHENobarbital (LUMINAL) tablet 64.8 mg 64.8 mg Oral Nightly Felix Perkins MD 64.8 mg at 11/20/14 2100 METHODS: A 21 channel digitized electroencephalogram was performed in the video/EEG monitoring unit. The 10/20 international system of electrode placement was used and bipolar and referential electrode montages were recorded. In addition to EEG the patient was monitored for EKG. Monitoring was continuous.The patient was under constant nursing supervision during the recordings. FINDINGS: Wakefulness: During the awake state with the eyes closed the background consisted of a normal amplitude, 5-7 Hz posterior reactive rhythm that attenuated appropriately with eye opening. Beta activity was distributed diffusely with an anterior predominance. There was a normal anterior-posterior voltage gradient.With eye opening the background activity changed to a low voltage mixture of beta, and occasional theta range frequencies. There were no significant asymmetries of background activity noted. Drowsiness and Sleep: With drowsiness there was some waxing and waning of the background rhythm with eventual replacement by a mixture of beta, alpha and theta activity. Appropriate sleep patterns with sleep spindles and vertex were noted during sleep stage II. Deeper stages of sleep were characterized by generalized slowing. Interictal Activity: Frequent left central spikes in C3-CZ during sleep. EKG: EKG revealed normal sinus rhythm. Ictal Activity: 11/19/14 to 11/20/14 22:06 Clinical: jerk out of sleep. Right arm extended with left arm flexion. EEG: no clear epileptiform activity. Likely tonic seizure 11/20/14 to 11/21/14: 19:37 Clinical: speaking on the phone. Eyes start to twitch, becomes unresponsive. Proceeds to right arm extension and left arm flexion. EEG: no clear EEG origination. INTERPRETATION: This EEG is abnormal due to generalized slowing of the background with left central spikes activated by sleep. One seizure captured overnight without clear EEG onset with left hemisphere semiology. One brief tonic seizure captured before as well. CLINICAL CORRELATION: This EEG is consistent with a history of epilepsy with a left central focus with two seizures captured. Félix Thomason DO Clinical Neurophysiology Fellow Associated attestation - Fam Matta MD - 11/21/2014 1:29 PM EDT Neurology (Staff) Addendum I saw and evaluated the patient. I have reviewed the resident's history, physical examination findings, assessment and plan during the visit and I agree with the details as written, unless otherwise specified as below. Fam Matta MD * Tony Thomason MD - 11/20/2014 9:23 AM EDT [facility] VIDEO-EEG MONITORING REPORT Patient: Cinthya Brown : 1960 Admit date: 11/18/2014 Date of report: 11/20/2014 Interpreting Physician: Tony Thomason MD BRIEF HISTORY/INDICATION FOR STUDY: Cinthya Brown is a 54 y.o. patient with epilepsy. VideoEEG wasperformed to assist in medication management. MEDICATIONS: Current Facility-Administered Medications Medication Dose Route Frequency Provider Last Rate Last Dose ??? atorvastatin (LIPITOR) tablet 40 mg 40 mg Oral QPM Yuki Bethea MD 40 mg at 11/19/14 1702 ??? esomeprazole (NexIUM) capsule 40 mg 40 mg Oral BID Yuki Bethea MD 40 mg at 11/20/14 0835 ??? ferrous sulfate EC tablet 325 mg 325 mg Oral BID WC NeemaYuki Cruz MD 325 mg at 11/20/1435 ??? furosemide (LASIX) tablet 40 mg 40 mg Oral Daily Yuki Bethea MD 40 mg at 11/20/1435 ??? levOCARNitine (CARNITOR) tablet 330 mg 330 mg Oral BID Yuki Bethea MD 330 mg at 11/20/14 0835 ??? sodium chloride 0.9 % flush 5 mL 5 mL Intravenous BID Yuki Bethea MD 5 mL at 11/20/1435 ??? sodium chloride 0.9 % flush 5-20 mL 5-20 mL Intravenous Q1 Min PRN Yuki Bethea MD ??? lidocaine (XYLOCAINE) 10 mg/mL (1 %) injection 3 mg 0.3 mL Subcutaneous Once PRN Yuki Bethea MD ??? acetaminophen (TYLENOL) tablet 650 mg 650 mg Oral Q4H PRN Yuki Bethea MD ??? docusate sodium (COLACE) capsule 100 mg 100 mg Oral BID PRN Yuki Bethea MD ??? bisacodyl (DULCOLAX) suppository 10 mg 10 mg Rectal Daily PRN Yuki Bethea MD ??? magnesium hydroxide (MILK OF MAGNESIA) oral suspension 10 mL 10 mL Oral Daily PRN Yuki Bethea MD ??? OXcarbazepine (TRILEPTAL) tablet 600 mg 600 mg Oral TID Yuki Bethea MD 600 mg at 11/20/14834 ??? PHENobarbital (LUMINAL) tablet 64.8 mg 64.8 mg Oral Nightly Felix Perkins MD 64.8 mg at 11/19/142033 METHODS: A 21 channel digitized electroencephalogram was performed in the video/EEG monitoring unit. The 10/20 international system of electrode placement was used and bipolar and referential electrode montages were recorded. In addition to EEG the patient was monitored for EKG. Monitoring was continuous.The patient was under constant nursing supervision during the recordings. FINDINGS: Wakefulness: During the awake state with the eyes closed the background consisted of a normal amplitude, 5-7 Hz posterior reactive rhythm that attenuated appropriately with eye opening. Beta activity was distributed diffusely with an anterior predominance. There was a normal anterior-posterior voltage gradient.With eye opening the background activity changed to a low voltage mixture of beta, and occasional theta range frequencies. There were no significant asymmetries of background activity noted. Drowsiness and Sleep: With drowsiness there was some waxing and waning of the background rhythm with eventual replacement by a mixture of beta, alpha and theta activity. Appropriate sleep patterns with sleep spindles and vertex were noted during sleep stage II. Deeper stages of sleep were characterized by generalized slowing. Interictal Activity: Frequent left central spikes in C3-CZ during sleep. EKG: EKG revealed normal sinus rhythm. Ictal Activity: 11/19/14 to 11/20/14 22:06 Clinical: jerk out of sleep. Right arm extended with left arm flexion. EEG: no clear epileptiform activity. Likely tonic seizure INTERPRETATION: This EEG is abnormal due to generalized slowing of the background with left central spikes activated by sleep. One brief tonic seizure captured. CLINICAL CORRELATION: This EEG is consistent with a history of epilepsy with a left central focus with one tonic seizure captured. Félix Thomason DO Clinical Neurophysiology Fellow Associated attestation - Fam Matta MD - 11/20/2014 2:53 PM EDT I reviewed the EEG and I agree with the interpretation as written. Fam Matta MD * Tony Thomason MD - 11/19/2014 9:07 AM EDT [facility] VIDEO-EEG MONITORING REPORT Patient: Cinthya Brown : 1960 Admit date: 11/18/2014 Date of report: 11/19/2014 Interpreting Physician: Tony Thomason MD BRIEF HISTORY/INDICATION FOR STUDY: Cinthya Brown is a 54 y.o. patient with epilepsy. VideoEEG wasperformed to assist in medication management. MEDICATIONS: Current Facility-Administered Medications Medication Dose Route Frequency Provider Last Rate Last Dose ??? atorvastatin (LIPITOR) tablet 40 mg 40 mg Oral QPM Yuki Bethea MD ??? divalproex (DEPAKOTE) EC tablet 125 mg 125 mg Oral BID Yuki Bethea MD 125 mg at 11/19/14825 ??? esomeprazole (NexIUM) capsule 40 mg 40 mg Oral BID Yuki Bethea MD 40 mg at 11/19/14825 ??? ferrous sulfate EC tablet 325 mg 325 mg Oral BID Yuki Bethea MD 325 mg at 11/19/14825 ??? furosemide (LASIX) tablet 40 mg 40 mg Oral Daily Yuki Bethea MD 40 mg at 11/19/14825 ??? levOCARNitine (CARNITOR) tablet 330 mg 330 mg Oral BID Yuki Bethea MD 330 mg at 11/19/14825 ??? sodium chloride 0.9 % flush 5 mL 5 mL Intravenous BID Yuki Bethea MD 5 mL at 11/19/14826 ??? sodium chloride 0.9 % flush 5-20 mL 5-20 mL Intravenous Q1 Min PRN Yuki Bethea MD ??? lidocaine (XYLOCAINE) 10 mg/mL (1 %) injection 3 mg 0.3 mL Subcutaneous Once PRN Yuki Bethea MD ??? acetaminophen (TYLENOL) tablet 650 mg 650 mg Oral Q4H PRN Yuki Bethea MD ??? docusate sodium (COLACE) capsule 100 mg 100 mg Oral BID PRN Yuki Bethea MD ??? bisacodyl (DULCOLAX) suppository 10 mg 10 mg Rectal Daily PRN Yuki Bethea MD ??? magnesium hydroxide (MILK OF MAGNESIA) oral suspension 10 mL 10 mL Oral Daily PRN Yuki Bethea MD ??? OXcarbazepine (TRILEPTAL) tablet 600 mg 600 mg Oral TID Yuki Bethea MD 600 mg at 11/19/14 0827 ??? PHENobarbital (LUMINAL) tablet 64.8 mg 64.8 mg Oral Nightly Felix Perkins MD 64.8 mg at 11/18/14 2141 METHODS: A 21 channel digitized electroencephalogram was performed in the video/EEG monitoring unit. The 10/20 international system of electrode placement was used and bipolar and referential electrode montages were recorded. In addition to EEG the patient was monitored for EKG. Monitoring was continuous.The patient was under constant nursing supervision during the recordings. FINDINGS: Wakefulness: During the awake state with the eyes closed the background consisted of a normal amplitude, 5-7 Hz posterior reactive rhythm that attenuated appropriately with eye opening. Beta activity was distributed diffusely with an anterior predominance. There was a normal anterior-posterior voltage gradient.With eye opening the background activity changed to a low voltage mixture of beta, and occasional theta range frequencies. There were no significant asymmetries of background activity noted. Drowsiness and Sleep: With drowsiness there was some waxing and waning of the background rhythm with eventual replacement by a mixture of beta, alpha and theta activity. Appropriate sleep patterns with sleep spindles and vertex were noted during sleep stage II. Deeper stages of sleep were characterized by generalized slowing. Interictal Activity: Frequent left central spikes in C3-CZ during sleep. EKG: EKG revealed normal sinus rhythm. Ictal Activity: No seizures captured. INTERPRETATION: This EEG is abnormal due to generalized slowing of the background with left central spikes activated by sleep. CLINICAL CORRELATION: This EEG is consistent with a history of epilepsy with a left central focus. Félix Thomason DO Clinical Neurophysiology Fellow Associated attestation - Fam Matta MD - 11/19/2014 12:09 PM EDT I reviewed the EEG and I agree with the interpretation as written. Fam Matta MD documented in this encounter Miscellaneous Notes * Plan of Care - Roberta Ford RN - 11/24/2014 4:42 AM EDT Problem: General Plan of Care Goal: Plan of Care Review Outcome: Ongoing (Interventions Implemented as Appropriate) 11/22/14 1843 11/23/141999 Coping/Psychosocial Response Interventions Plan of Care Reviewed with -- patient;legal guardian Plan of Care Review Plan of Care Outcome Status ongoing (interventions implemented as appropriate) -- Progress no change -- OUTCOME EVALUATION NOTE: OUTCOME SUMMARY: Continue adjustment of seizure medications, no seizures this shift, safety maintained PLAN MOVING FORWARD: Monitor for seizures during dose adjustment and maintain safety throughout INDIVIDUALIZED FALL PREVENTION: Assistance: Up with 2 Supervision: Nursing staff and caregiver Surveillance: Grace, video EEG CPG GOAL OUTCOME EVALUATION: Goal: Individualization and Mutuality Outcome: Ongoing (Interventions Implemented as Appropriate) 11/18/14 1800 Mutuality/Individual Preferences What anxieties, fears or concerns do you have about your health or care? None What questions do you have about your health or care? None What information would help us give you more personalized care? Someone in the room at all times Goal: Fall Prevention-Safe Patient Handling Outcome: Ongoing (Interventions Implemented as Appropriate) 11/23/141999 Safety Interventions Safety Precautions/Fall Reduction bed alarm;assistive device;commode/urinal/bedpan at bedside;environmental modification;fall reduction program maintained;family at bedside;lighting adjusted for task/ safety;mobility aid;muscle strengthening facilitated;nonskid shoes/slippers when out of bed;room near unit station;seizure precautions;toileting scheduled Rodriguez Fall Risk History of Falling 25 Secondary Diagnosis 15 Ambulatory Aids 0 Intravenous Therapy/Heparin/Saline Lock 20 Gait/Transferring 10 Mental Status 15 Score 85 OTHER Rodriguez Fall Risk High Musculoskeletal Interventions Activity/Level of Assistance up in room;with 2-person assist Positioning HOB up 30-45 degrees Goal: Infection Control 11/23/141999 Safety Interventions Isolation Precautions standard precautions maintained Infection Prevention environmental surveillance;hydration promoted;nutrition promoted;promote handwashing;rest/sleep promoted Coping/Psychosocial Response Interventions Counseling calming techniques promoted;emotional support provided;verbalization of feelings encouraged Goal: Discharge Needs Assessment Outcome: Ongoing (Interventions Implemented as Appropriate) 11/20/14 1737 Discharge Needs Assessment Concerns to be Addressed no discharge needs identified Living Environment Transportation Available family or friend will provide Problem: Seizure Disorder/Epilepsy (Adult, Obstetrics) Intervention: Sleep/Rest Enhancement 11/23/141999 Sleep/Rest/Relaxation Interventions Sleep/Rest Enhancement bedtime/naptime/waketime consistency promoted;care clustered to minimize awakenings;calming techniques promoted;environment adjusted;family presence promoted Intervention: Seizure Precautions 11/23/141999 Safety Interventions Seizure Precautions BADL/IADL supervision;clutter-free environment;emergency equipment at bedside;side rails padded Intervention: O2 Consumption Minimization 11/19/14 0356 Cardiac Interventions O2 Consumption Minimization activity assistance provided;activity adjusted to patient tolerance;care clustered;sleep/rest promoted Intervention: Airway/Ventilation Management 11/19/14 0800 Respiratory Interventions Airway/Ventilation Management activity adjusted to patient tolerance Goal: Signs and symptoms of listed potential problems will be absent or manageable (reference (Seizure Disorder/Epilepsy (Adult, Obstetrics)) CPG) Outcome: Ongoing (Interventions Implemented as Appropriate) 11/22/14 1843 Seizure Disorder/Epilepsy Problems Assessed (Seizure Disorder/Epilepsy) all Problems Present (Seizure Disorder/Epilepsy) none Problem: Skin Integrity Impairment, Risk/Actual (Adult, Obstetrics) Goal: Skin Integrity/Wound Healing Patient will demonstrate the desired outcomes. Outcome: Ongoing (Interventions Implemented as Appropriate) 11/23/14 1847 Skin Integrity Impairment, Risk/Actual (Adult, Obstetrics) Skin Integrity/Wound Healing making progress toward outcome * Plan of Care - Lulu Schofield RN - 11/23/2014 6:52 PM EDT Problem: General Plan of Care Goal: Plan of Care Review Outcome: Ongoing (Interventions Implemented as Appropriate) 11/22/14 1843 11/23/14 1000 Coping/Psychosocial Response Interventions Plan of Care Reviewed with -- patient;legal guardian Plan of Care Review Plan of Care Outcome Status ongoing (interventions implemented as appropriate) -- Progress no change -- OUTCOME EVALUATION NOTE: OUTCOME SUMMARY: Pt neurologically at baseline throughout shift. Family at bedside. Pt up to commode multiple times throughout day. No seizure activity noted. PLAN MOVING FORWARD: Continue VEEG monitoring INDIVIDUALIZED FALL PREVENTION: Assistance: 2 assist to commode Supervision: Hands on pt Surveillance: Purposeful rounding, masimo, bed alarm, seizure restraint protocol CPG GOAL OUTCOME EVALUATION: Goal: Individualization and Mutuality Outcome: Ongoing (Interventions Implemented as Appropriate) 11/18/14 1800 Mutuality/Individual Preferences What anxieties, fears or concerns do you have about your health or care? None What questions do you have about your health or care? None What information would help us give you more personalized care? Someone in the room at all times Goal: Fall Prevention-Safe Patient Handling Outcome: Ongoing (Interventions Implemented as Appropriate) 11/22/14 1052 11/23/14 1000 Safety Interventions Safety Precautions/Fall Reduction -- bed alarm;fall reduction program maintained;family at bedside;lighting adjusted for task/safety;nonskid shoes/slippers when out of bed;room near unit station;seizure precautions Rodriguez Fall Risk History of Falling -- 25 Secondary Diagnosis -- 15 Ambulatory Aids -- 15 Intravenous Therapy/Heparin/Saline Lock -- 20 Gait/Transferring -- 10 Mental Status -- 15 Score -- 100 OTHER Rodriguez Fall Risk -- High Musculoskeletal Interventions Activity/Level of Assistance -- up in room;with 1-person assist Positioning independent -- Goal: Infection Control Outcome: Ongoing (Interventions Implemented as Appropriate) 11/23/14 1000 Safety Interventions Isolation Precautions standard precautions maintained Infection Prevention bronchial hygiene promoted;environmental surveillance;hydration promoted;nutrition promoted;promote handwashing;rest/sleep promoted Coping/Psychosocial Response Interventions Counseling calming techniques promoted;emotional support provided;personal strengths integrated;problem solving facilitated Goal: Discharge Needs Assessment Outcome: Ongoing (Interventions Implemented as Appropriate) 11/20/14 1737 Discharge Needs Assessment Concerns to be Addressed no discharge needs identified Living Environment Transportation Available family or friend will provide Problem: Seizure Disorder/Epilepsy (Adult, Obstetrics) Goal: Signs and symptoms of listed potential problems will be absent or manageable (reference (Seizure Disorder/Epilepsy (Adult, Obstetrics)) CPG) Outcome: Ongoing (Interventions Implemented as Appropriate) 11/22/141842 Seizure Disorder/Epilepsy Problems Assessed (Seizure Disorder/Epilepsy) all Problems Present (Seizure Disorder/Epilepsy) none Problem: Skin Integrity Impairment, Risk/Actual (Adult, Obstetrics) Goal: Skin Integrity/Wound Healing Patient will demonstrate the desired outcomes. Outcome: Ongoing (Interventions Implemented as Appropriate) 11/23/141846 Skin Integrity Impairment, Risk/Actual (Adult, Obstetrics) Skin Integrity/Wound Healing making progress toward outcome * Plan of Care - Macy Matt RN - 11/22/2014 6:48 PM EDT Problem: General Plan of Care Goal: Plan of Care Review Outcome: Ongoing (Interventions Implemented as Appropriate) 11/22/141842 Coping/Psychosocial Response Interventions Plan of Care Reviewed with patient;spouse Plan of Care Review Plan of Care Outcome Status ongoing (interventions implemented as appropriate) Progress no change OUTCOME EVALUATION NOTE: OUTCOME SUMMARY: Patient neurologically unchanged. No seizure events. No complaints of pain. Caregiver remains at bedside. PLAN MOVING FORWARD: Continue VEEG monitoring. With seizure occurrence page neurology for increase in phenobarbital. INDIVIDUALIZED FALL PREVENTION: Assistance: 2 assist Supervision: Nursing, caregiver at bedside Surveillance: Masimo, VEEG, Hourly Rounding CPG GOAL OUTCOME EVALUATION: Goal: Individualization and Mutuality Outcome: Ongoing (Interventions Implemented as Appropriate) Goal: Fall Prevention-Safe Patient Handling Outcome: Ongoing (Interventions Implemented as Appropriate) 11/22/14 1049 11/22/14 1052 Safety Interventions Safety Precautions/Fall Reduction -- bed alarm;fall reduction program maintained;environmental modification;family at bedside;lighting adjusted for task/safety;low bed;seizure precautions Rodriguez Fall Risk History of Falling 25 -- Secondary Diagnosis 15 -- Ambulatory Aids 15 -- Intravenous Therapy/Heparin/Saline Lock 20 -- Gait/Transferring 10 -- Mental Status 15 -- Score 100 -- OTHER Rodriguez Fall Risk High -- Musculoskeletal Interventions Activity/Level of Assistance -- with 2-person assist Positioning -- independent Goal: Infection Control Outcome: Ongoing (Interventions Implemented as Appropriate) 04/18/15 1843 Safety Interventions Isolation Precautions standard precautions maintained Infection Prevention bronchial hygiene promoted;environmental surveillance;hydration promoted;nutrition promoted;promote handwashing Coping/Psychosocial Response Interventions Counseling calming techniques promoted;reassurance provided;relaxation techniques promoted Goal: Discharge Needs Assessment Outcome: Ongoing (Interventions Implemented as Appropriate) Problem: Seizure Disorder/Epilepsy (Adult, Obstetrics) Goal: Signs and symptoms of listed potential problems will be absent or manageable (reference (Seizure Disorder/Epilepsy (Adult, Obstetrics)) CPG) Outcome: Ongoing (Interventions Implemented as Appropriate) 11/22/14 1843 Seizure Disorder/Epilepsy Problems Assessed (Seizure Disorder/Epilepsy) all Problems Present (Seizure Disorder/Epilepsy) none Problem: Skin Integrity Impairment, Risk/Actual (Adult, Obstetrics) Goal: Skin Integrity/Wound Healing Patient will demonstrate the desired outcomes. Outcome: Ongoing (Interventions Implemented as Appropriate) 11/22/14 184 Skin Integrity Impairment, Risk/Actual (Adult, Obstetrics) Skin Integrity/Wound Healing making progress toward outcome * Plan of Care - Macy Matt RN - 11/21/2014 5:14 PM EDT Problem: General Plan of Care Goal: Plan of Care Review Outcome: Ongoing (Interventions Implemented as Appropriate) 11/21/14 1711 Coping/Psychosocial Response Interventions Plan of Care Reviewed with patient;other (see comments) (career services manager) Plan of Care Review Plan of Care Outcome Status ongoing (interventions implemented as appropriate) Progress no change OUTCOME EVALUATION NOTE: OUTCOME SUMMARY: No overt seizure activity noted. Patient remains at neurological baseline. No complaints of pain. Patient OOB to chair for majority of shift. sourcing associate remains at bedside. PLAN MOVING FORWARD: Continue VEEG monitoring INDIVIDUALIZED FALL PREVENTION: Assistance: 2 assist Supervision: Nursing, caregiver Surveillance: JACKSON Fair CPG GOAL OUTCOME EVALUATION: Goal: Individualization and Mutuality Outcome: Ongoing (Interventions Implemented as Appropriate) Goal: Fall Prevention-Safe Patient Handling Outcome: Ongoing (Interventions Implemented as Appropriate) 11/21/14 0901 11/21/14 1600 Safety Interventions Safety Precautions/Fall Reduction -- fall reduction program maintained;family at bedside;low bed;nonskid shoes/slippers when out of bed;seizure precautions Rodriguez Fall Risk History of Falling 25 -- Secondary Diagnosis 15 -- Ambulatory Aids 15 -- Intravenous Therapy/Heparin/Saline Lock 20 -- Gait/Transferring 20 -- Mental Status 15 -- Score 110 -- OTHER Rodriguez Fall Risk High -- Musculoskeletal Interventions Activity/Level of Assistance up in room;with 2-person assist -- Positioning -- up in chair Goal: Infection Control Outcome: Ongoing (Interventions Implemented as Appropriate) 11/21/14 1711 Safety Interventions Isolation Precautions standard precautions maintained Infection Prevention bronchial hygiene promoted;environmental surveillance;hydration promoted;nutrition promoted;promote handwashing Coping/Psychosocial Response Interventions Counseling calming techniques promoted;emotional support provided;reassurance provided;personal strengths integrated Goal: Discharge Needs Assessment Outcome: Ongoing (Interventions Implemented as Appropriate) Problem: Seizure Disorder/Epilepsy (Adult, Obstetrics) Goal: Signs and symptoms of listed potential problems will be absent or manageable (reference (Seizure Disorder/Epilepsy (Adult, Obstetrics)) CPG) Outcome: Ongoing (Interventions Implemented as Appropriate) 11/21/141710 Seizure Disorder/Epilepsy Problems Assessed (Seizure Disorder/Epilepsy) all Problems Present (Seizure Disorder/Epilepsy) none Problem: Skin Integrity Impairment, Risk/Actual (Adult, Obstetrics) Goal: Skin Integrity/Wound Healing Patient will demonstrate the desired outcomes. Outcome: Ongoing (Interventions Implemented as Appropriate) * Plan of Care - Solitario Caicedo, RN - 11/21/2014 2:47 AM EDT Problem: General Plan of Care Goal: Plan of Care Review Outcome: Ongoing (Interventions Implemented as Appropriate) 11/20/14 1737 Coping/Psychosocial Response Interventions Plan of Care Reviewed with patient;other (see comments) (caregiver) Plan of Care Review Plan of Care Outcome Status ongoing (interventions implemented as appropriate) Progress progress toward functional goals as expected OUTCOME EVALUATION NOTE: OUTCOME SUMMARY: Caregiver at bedside--Pt pleasant and cooperative,Continues w/ seizure monitor--At 1937,sz alarm went off,Staff in to room and heard pt yell--2 minutes of generalized Sz observed w/tonic/clonic posturing --Pt noticeably dusky w/O2 sats down in 80's on monitor-staring,not responsive to stimuli----Ptbetter in 2 minutes--Responsive to caregiver,appeared frightened--Neuro checks WDL other than sluggish left pupil--Back to baseline Neuro checks after 20 minutes--VSS--MD aware--No N.O.-- PLAN MOVING FORWARD: Sz precautions resumed as before--Q 4hr neuro checks INDIVIDUALIZED FALL PREVENTION: Assistance: 2 staff to get OOB and reposition PRN--- Supervision: RN/RIDE OPERATOR and precision printing worker at bedside Surveillance: Grace and Q 1hr purposeful rounding-- CPG GOAL OUTCOME EVALUATION: Goal: Individualization and Mutuality Outcome: Ongoing (Interventions Implemented as Appropriate) 11/18/14 1800 Mutuality/Individual Preferences What anxieties, fears or concerns do you have about your health or care? None What questions do you have about your health or care? None What information would help us give you more personalized care? Someone in the room at all times Goal: Fall Prevention-Safe Patient Handling Outcome: Ongoing (Interventions Implemented as Appropriate) 11/20/14 2200 Safety Interventions Safety Precautions/Fall Reduction environmental modification;family at bedside;lighting adjusted for task/safety;low bed;nonskid shoes/slippers when out of bed;room near unit station;seizure precautions;toileting scheduled Rodriguez Fall Risk History of Falling 25 Secondary Diagnosis 15 Ambulatory Aids 15 Intravenous Therapy/Heparin/Saline Lock 20 Gait/Transferring 20 Mental Status 15 Score 110 OTHER Rodriguez Fall Risk High Musculoskeletal Interventions Activity/Level of Assistance up in room Positioning HOB up 30 degrees Goal: Infection Control Outcome: Ongoing (Interventions Implemented as Appropriate) 11/20/14 1737 Safety Interventions Isolation Precautions standard precautions maintained Infection Prevention bronchial hygiene promoted;environmental surveillance;hydration promoted;nutrition promoted;promote handwashing;rest/sleep promoted Coping/Psychosocial Response Interventions Counseling emotional support provided;understanding of situation facilitated;verbalization of feelings encouraged Goal: Discharge Needs Assessment Outcome: Ongoing (Interventions Implemented as Appropriate) 11/20/14 173 Discharge Needs Assessment Concerns to be Addressed no discharge needs identified Living Environment Transportation Available family or friend will provide Problem: Seizure Disorder/Epilepsy (Adult, Obstetrics) Goal: Signs and symptoms of listed potential problems will be absent or manageable (reference (Seizure Disorder/Epilepsy (Adult, Obstetrics)) CPG) Outcome: Ongoing (Interventions Implemented as Appropriate) 11/20/14 173 Seizure Disorder/Epilepsy Problems Assessed (Seizure Disorder/Epilepsy) all Problems Present (Seizure Disorder/Epilepsy) none Problem: Skin Integrity Impairment, Risk/Actual (Adult, Obstetrics) Goal: Skin Integrity/Wound Healing Patient will demonstrate the desired outcomes. Outcome: Ongoing (Interventions Implemented as Appropriate) 11/20/141736 Skin Integrity Impairment, Risk/Actual (Adult, Obstetrics) Skin Integrity/Wound Healing making progress toward outcome * Plan of Care - Julieta Quiles RN - 11/20/2014 5:51 PM EDT Problem: General Plan of Care Goal: Plan of Care Review 11/20/141736 Coping/Psychosocial Response Interventions Plan of Care Reviewed with patient;other (see comments) (caregiver) Plan of Care Review Plan of Care Outcome Status ongoing (interventions implemented as appropriate) Progress progress toward functional goals as expected OUTCOME EVALUATION NOTE: OUTCOME SUMMARY: No seizure events this shift. PLAN MOVING FORWARD: Seizure monitoring. INDIVIDUALIZED FALL PREVENTION: Assistance: x2 assist while OOB Supervision: Hands on assist Surveillance: Hourly monitoring, masimo, video EEG CPG OUTCOME EVALUATION: Goal: Fall Prevention-Safe Patient Handling Outcome: Ongoing (Interventions Implemented as Appropriate) 11/20/14 0800 11/20/14 165 Safety Interventions Safety Precautions/Fall Reduction seizure precautions;room near unit station;nonskid shoes/slipperswhen out of bed;low bed;lighting adjusted for task/safety;family at bedside;fall reduction program maintained;environmental modification;commode/urinal/bedpan at bedside -- Rodriguez Fall Risk History of Falling 25 -- Secondary Diagnosis 15 -- Ambulatory Aids 0 -- Intravenous Therapy/Heparin/Saline Lock 20 -- Gait/Transferring 10 -- Mental Status 15 -- Score 85 -- OTHER Rodriguez Fall Risk High -- Musculoskeletal Interventions Activity/Level of Assistance -- up in room;with 2-person assist Goal: Infection Control Outcome: Ongoing (Interventions Implemented as Appropriate) 11/20/141736 Safety Interventions Isolation Precautions standard precautions maintained Infection Prevention bronchial hygiene promoted;environmental surveillance;hydration promoted;nutrition promoted;promote handwashing;rest/sleep promoted Coping/Psychosocial Response Interventions Counseling emotional support provided;understanding of situation facilitated;verbalization of feelings encouraged Goal: Discharge Needs Assessment Outcome: Ongoing (Interventions Implemented as Appropriate) 11/20/141736 Discharge Needs Assessment Concerns to be Addressed no discharge needs identified Living Environment Transportation Available family or friend will provide Problem: Seizure Disorder/Epilepsy (Adult, Obstetrics) Goal: Signs and symptoms of listed potential problems will be absent or manageable (reference (Seizure Disorder/Epilepsy (Adult, Obstetrics)) CPG) Outcome: Ongoing (Interventions Implemented as Appropriate) 11/20/147 Seizure Disorder/Epilepsy Problems Assessed (Seizure Disorder/Epilepsy) all Problems Present (Seizure Disorder/Epilepsy) none Problem: Skin Integrity Impairment, Risk/Actual (Adult, Obstetrics) Goal: Identify Signs and Symptoms and Related Risk Factors Signs and symptoms and related risk factors are identified upon initiation of Human Response Clinical Practice Guideline (CPG) Outcome: Outcome (s) achieved Date Met: 11/20/14 11/20/141736 Skin Integrity Impairment, Risk/Actual Treatment Related Related Risk Factors (Skin Integrity Impairment, Risk/Actual) invasive catheters Goal: Skin Integrity/Wound Healing Patient will demonstrate the desired outcomes. Outcome: Ongoing (Interventions Implemented as Appropriate) 11/20/147 Skin Integrity Impairment, Risk/Actual (Adult, Obstetrics) Skin Integrity/Wound Healing making progress toward outcome * Plan of Care - Amy Gracia RN - 11/20/2014 4:41 AM EDT Problem: General Plan of Care Goal: Plan of Care Review Outcome: Ongoing (Interventions Implemented as Appropriate) 11/19/14 2100 Coping/Psychosocial Response Interventions Plan of Care Reviewed with patient;other (see comments) (career services manager) OUTCOME SUMMARY: 2206: pts caregiver pressed alarm. Said pt had jerking of arms and legs, brief. Ptis at baseline. PLAN MOVING FORWARD: continue to monitor for events and document. INDIVIDUALIZED FALL PREVENTION: ambulate or stand and pivot to commode with hands on, do not leave pt alone. Assistance: Up with 2 assist Supervision: continual if OOB, Surveillance: Hourly rounds, video EEG monitoring, grace CPG GOAL OUTCOME EVALUATION: Goal: Fall Prevention-Safe Patient Handling Outcome: Ongoing (Interventions Implemented as Appropriate) 11/19/14 0800 11/19/14 2239 Safety Interventions Safety Precautions/Fall Reduction -- bed alarm;fall reduction program maintained;family at bedside;lighting adjusted for task/safety;low bed;nonskid shoes/slippers when out of bed;room near unit station;seizure precautions Musculoskeletal Interventions Activity/Level of Assistance -- bedrest with commode;with 2-person assist Positioning independent -- Goal: Infection Control Outcome: Ongoing (Interventions Implemented as Appropriate) 11/19/14 0800 Safety Interventions Isolation Precautions standard precautions maintained Infection Prevention rest/sleep promoted Coping/Psychosocial Response Interventions Counseling calming techniques promoted;emotional support provided Problem: Seizure Disorder/Epilepsy (Adult, Obstetrics) Goal: Signs and symptoms of listed potential problems will be absent or manageable (reference (Seizure Disorder/Epilepsy (Adult, Obstetrics)) CPG) Outcome: Ongoing (Interventions Implemented as Appropriate) 11/19/14 0356 Seizure Disorder/Epilepsy Problems Assessed (Seizure Disorder/Epilepsy) all Problems Present (Seizure Disorder/Epilepsy) none * Plan of Care - Marisa Campuzano RN - 11/19/2014 4:28 PM EDT Problem: General Plan of Care Goal: Plan of Care Review 11/19/14 0800 Coping/Psychosocial Response Interventions Plan of Care Reviewed with patient;other (see comments) (career services manager) OUTCOME EVALUATION NOTE: OUTCOME SUMMARY: Patient VSS. Incontinent X2. No seizure activity noted. Depakote D/C please see MAR. Pt in pleasantmood and compliant with all medications and care. Caregiver remains at bedside. Pt in bed with safety maintained. Continue to monitor. PLAN MOVING FORWARD: Continue to monitor for seizure activity and maintain safety. INDIVIDUALIZED FALL PREVENTION: Assistance: Assistance with transfers skid socks on Supervision: Room near nurses station, caregiver at bedside Surveillance: Masjacobo, hourly rounding, VEEG CPG GOAL OUTCOME EVALUATION: Continue to monitor Goal: Individualization and Mutuality 11/18/14 1800 Mutuality/Individual Preferences What anxieties, fears or concerns do you have about your health or care? None What questions do you have about your health or care? None What information would help us give you more personalized care? Someone in the room at all times Goal: Fall Prevention-Safe Patient Handling 11/19/14 0800 Safety Interventions Safety Precautions/Fall Reduction seizure precautions;room near unit station;nonskid shoes/slipperswhen out of bed;low bed;lighting adjusted for task/safety;family at bedside;fall reduction program maintained;environmental modification;commode/urinal/bedpan at bedside;bed alarm Rodriguez Fall Risk History of Falling 25 Secondary Diagnosis 15 Ambulatory Aids 0 Intravenous Therapy/Heparin/Saline Lock 0 Gait/Transferring 20 Mental Status 15 Score 75 OTHER Rodriguez Fall Risk High Musculoskeletal Interventions Activity/Level of Assistance with 2-person assist Positioning independent Goal: Infection Control 11/19/14 0800 Safety Interventions Isolation Precautions standard precautions maintained Infection Prevention rest/sleep promoted Coping/Psychosocial Response Interventions Counseling calming techniques promoted;emotional support provided Goal: Discharge Needs Assessment 11/18/14 1800 Living Environment Transportation Available van, wheelchair accessible Problem: Seizure Disorder/Epilepsy (Adult, Obstetrics) Goal: Signs and symptoms of listed potential problems will be absent or manageable (reference (Seizure Disorder/Epilepsy (Adult, Obstetrics)) CPG) 11/19/14 0356 Seizure Disorder/Epilepsy Problems Assessed (Seizure Disorder/Epilepsy) all Problems Present (Seizure Disorder/Epilepsy) none * Plan of Care - Amy Slaughter RN - 11/19/2014 4:09 AM EDT Problem: General Plan of Care Goal: Plan of Care Review 11/18/141999 Coping/Psychosocial Response Interventions Plan of Care Reviewed with patient;other (see comments) (career services manager) OUTCOME EVALUATION NOTE: OUTCOME SUMMARY: Patient here for video EEG monitoring. She is at baseline mentation. No overt seizures at this time PLAN MOVING FORWARD: Continue to monitor for seizure activity INDIVIDUALIZED FALL PREVENTION: Assistance: 2 assist Supervision: nursing Surveillance: francisco Fair CPG GOAL OUTCOME EVALUATION: Goal: Individualization and Mutuality 11/18/14 1800 Mutuality/Individual Preferences What anxieties, fears or concerns do you have about your health or care? None What questions do you have about your health or care? None What information would help us give you more personalized care? Someone in the room at all times Goal: Fall Prevention-Safe Patient Handling 11/18/14 1900 11/18/14199911/19/14 0200 Safety Interventions Safety Precautions/Fall Reduction bed alarm;commode/urinal/bedpan at bedside;environmental modification;fall reduction program maintained;family at bedside;lighting adjusted for task/safety;nonskid shoes/slippers when out of bed;room near unit station;seizure precautions -- -- Rodriguez Fall Risk History of Falling -- 25 -- Secondary Diagnosis -- 15 -- Ambulatory Aids -- 0 -- Intravenous Therapy/Heparin/Saline Lock -- 0 -- Gait/Transferring -- 20 -- Mental Status -- 15 -- Score -- 75 -- OTHER Rodriguez Fall Risk -- High -- Musculoskeletal Interventions Activity/Level of Assistance -- with 2-person assist -- Positioning -- -- independent Goal: Infection Control 11/18/14 1630 Safety Interventions Infection Prevention rest/sleep promoted Coping/Psychosocial Response Interventions Counseling calming techniques promoted Goal: Discharge Needs Assessment 11/18/14 1800 Living Environment Transportation Available van, wheelchair accessible Problem: Seizure Disorder/Epilepsy (Adult, Obstetrics) Intervention: Sleep/Rest Enhancement 11/19/14355 Sleep/Rest/Relaxation Interventions Sleep/Rest Enhancement care clustered to minimize awakenings;sleep/rest pattern promoted Intervention: Seizure Precautions 11/19/14355 Safety Interventions Seizure Precautions BADL/IADL supervision;clutter-free environment;emergency equipment at bedside Intervention: O2 Consumption Minimization 11/19/14355 Cardiac Interventions O2 Consumption Minimization activity assistance provided;activity adjusted to patient tolerance;care clustered;sleep/rest promoted Intervention: Airway/Ventilation Management 11/19/14355 Respiratory Interventions Airway/Ventilation Management activity adjusted to patient tolerance Goal: Signs and symptoms of listed potential problems will be absent or manageable (reference (Seizure Disorder/Epilepsy (Adult, Obstetrics)) CPG) 11/19/14355 Seizure Disorder/Epilepsy Problems Assessed (Seizure Disorder/Epilepsy) all Problems Present (Seizure Disorder/Epilepsy) none * Plan of Care - Marisa Campuzano RN - 11/18/2014 6:22 PM EDT Problem: General Plan of Care Goal: Plan of Care Review Outcome: Ongoing (Interventions Implemented as Appropriate) 11/18/14 1630 Coping/Psychosocial Response Interventions Plan of Care Reviewed with patient;healthcare power of hose tester OUTCOME EVALUATION NOTE: OUTCOME SUMMARY: Pt arrived at 1700 to unit. Pt alert and oriented to self, pt pt baseline. PERRLA. 5/5 strengths. Caregiver at bedside. No seizure activity. IV and VEEG monitoring to be initiated. PLAN MOVING FORWARD: VEEG monitoring to taper Depakote INDIVIDUALIZED FALL PREVENTION: Assistance: 2 assist when OOB Supervision: VEEG, RN/LAMONT Surveillance: Masimo, hourly rounding CPG GOAL OUTCOME EVALUATION: Goal: Individualization and Mutuality Outcome: Ongoing (Interventions Implemented as Appropriate) Goal: Fall Prevention-Safe Patient Handling Outcome: Ongoing (Interventions Implemented as Appropriate) 11/18/14 1630 11/18/14 1658 Safety Interventions Safety Precautions/Fall Reduction -- bed alarm;environmental modification;fall reduction program maintained;family at bedside;lighting adjusted for task/safety;low bed;nonskid shoes/slippers when outof bed;seizure precautions;supervised activity Musculoskeletal Interventions Activity/Level of Assistance with 1-person assist -- Positioning -- HOB up 15 degrees;independent Goal: Infection Control Outcome: Ongoing (Interventions Implemented as Appropriate) 11/18/14 1630 Safety Interventions Infection Prevention rest/sleep promoted Coping/Psychosocial Response Interventions Counseling calming techniques promoted Goal: Discharge Needs Assessment Outcome: Ongoing (Interventions Implemented as Appropriate) Problem: Seizure Disorder/Epilepsy (Adult, Obstetrics) Goal: Signs and symptoms of listed potential problems will be absent or manageable (reference (Seizure Disorder/Epilepsy (Adult, Obstetrics)) CPG) Outcome: Ongoing (Interventions Implemented as Appropriate) 11/18/14 1819 Seizure Disorder/Epilepsy Problems Assessed (Seizure Disorder/Epilepsy) all Problems Present (Seizure Disorder/Epilepsy) none documented in this encounter Plan of Treatment Upcoming Encounters Date Type Department Care Team (Late st Contact Info) Description 08/06/2024 11:00 AM EST [place] [id number] Sarah Serra APRN [facility] [place] [place] [address] documented as of this encounter Procedures Procedure Name Priority Date/Time Associated Diagnosis Comments ZVIDEO EEG MONITORING Routine 11/23/2014 5:10 PM EDT ZVIDEO EEG MONITORING Routine 11/23/2014 5:09 PM EDT HEMOGRAM Routine 11/18/2014 7:30 PM EDT DIFFERENTIAL, AUTOMATED Routine 11/18/2014 7:30 PM EDT CREATININE Routine 11/18/2014 7:30 PM EDT OXCARBAZEPINE METABOLITE (MHC) Routine 11/18/2014 7:30 PM EDT CBC (WITH DIFF) Routine 11/18/2014 7:30 PM EDT BUN Routine 11/18/2014 7:30 PM EDT PHENOBARBITAL LEVEL Routine 11/18/2014 7 :30 PM EDT VALPROIC ACID LEVEL, TOTAL Routine 11/18/2014 7:30 PM EDT HEPATIC FUNCTION PANEL Routine 5 7:30 PM EDT ELECTROLYTES PANEL Routine 11/18/2014 7: 30 PM EDT documented in this encounter Results * ZVIDEO EEG MONITORING (11/23/2014 5:10 PM EDT) Narrative Shashi Mckee MD - 11/23/2014 5:10 PM EDT Shashi Mckee MD ? 11/23/2014 ??5:10 PM [facility] VIDEO-EEG MONITORING REPORT Patient: Cinthya Brown : 1960 Admit date: 11/18/2014 Date of report: 11/22/2014 (from 11/21 to ??11/22) Interpreting Physician: Shashi Mckee MD BRIEF HISTORY/INDICATION FOR STUDY: ??Cinthya Brown is a 54 y.o. patient with epilepsy. VideoEEG was performed to assist in medication management. MEDICATIONS: Current Facility-Administered Medications Medication Dose Route Frequency Provider Last Rate Last Dose ? ? PHENobarbital (LUMINAL) tablet 89.1 mg ??89.1 mg Oral Nightly Marcella Kyle MD ? atorvastatin (LIPITOR) tablet 40 mg ??40 mg Oral QPM Yuki Bethea MD ?? 40 mg at 11/22/14 1600 ? ? esomeprazole (NexIUM) capsule 40 mg ??40 mg Oral BID Yuki Bethea MD ?? 40 mg at 11/22/14825 ? ? ferrous sulfate EC tablet 325 mg ??325 mg Oral BID WC Yuki Bethea MD ?? 325 mg at 11/22/14 1600 ? ? furosemide (LASIX) tablet 40 mg ??40 mg Oral Daily Yuki Bethea MD ?? 40 mg at 11/22/14825 ? ? levOCARNitine (CARNITOR) tablet 330 mg ??330 mg Oral BID Yuki Bethea MD ?? 330 mg at 11/22/14825 ? ? sodium chloride 0.9 % flush 5 mL ??5 mL Intravenous BID Yuki Bethea MD ?? 5 mL at 11/22/14825 ? ? sodium chloride 0.9 % flush 5-20 mL ??5-20 mL Intravenous Q1 Min PRN Yuki Bethea MD ? lidocaine (XYLOCAINE) 10 mg/mL (1 %) injection 3 mg ??0.3 mL Subcutaneous Once PRN Yuki Bethea MD ? acetaminophen (TYLENOL) tablet 650 mg ??650 mg Oral Q4H PRN Yuki Bethea MD ? docusate sodium (COLACE) capsule 100 mg ??100 mg Oral BID PRN Yuki Bethea MD ? bisacodyl (DULCOLAX) suppository 10 mg ??10 mg Rectal Daily PRN Yuki Bethea MD ? magnesium hydroxide (MILK OF MAGNESIA) oral suspension 10 mL ?? 10 mL Oral Daily PRN Yuki Bethea MD ? OXcarbazepine (TRILEPTAL) tablet 600 mg ??600 mg Oral TID Yuki Bethea MD ?? 600 mg at 11/22/14 1559 ?? METHODS: A 21 channel digitized electroencephalogram was performed in the video/EEG monitoring unit. ?? The 10/20 international system of electrode placement was used and bipolar and referential electrode montages were recorded. ??In addition to EEG the patient was monitored for EKG. ??Monitoring was continuous.The patient was under constant nursing supervision during the recordings. FINDINGS: Wakefulness: During the awake state with the eyes closed the background consisted of a normal amplitude, 5-7 Hz posterior reactive rhythm that attenuated appropriately with eye opening. Beta activity was distributed diffusely with an anterior predominance. There was a normal anterior-posterior voltage gradient. With eye opening the background activity changed to a low voltage mixture of beta, and occasional theta range frequencies. There were no significant asymmetries of background activity noted. Drowsiness and Sleep: With drowsiness there was some waxing and waning of the background rhythm with eventual replacement by a mixture of beta,delta ??and theta activity. Appropriate sleep patterns with sleep spindles and vertex were noted during sleep stage II. Deeper stages of sleep were characterized by generalized slowing. Interictal Activity: Overall slow background.Frequent generalized spike wave and polyspike discharges, and right and left independent spikes and spike-wave complexes. Runs of polyspike activity more prominent on the right. EKG: EKG revealed normal sinus rhythm. Ictal Activity: 11/19/14 to 11/20/14 See #1: 22:06 Clinical: jerk out of sleep. Right arm extended with left arm flexion. EEG: no clear epileptiform activity. Likely tonic seizure 11/20/14 to 11/21/14: Seizure #2: 19:37 Clinical: speaking on the phone. Eyes start to twitch, becomes unresponsive. Proceeds to right arm extension and left arm flexion. EEG: no clear EEG origination. 11/21/14 to 11/22/14: Seizure #3 Clinical: asleep, arouses, stiffens, Proceeds to right arm extension and left arm flexion and generalized tonic-clonic activity. EEG: Seizure emerges out of runs of right-sided polyspike activity with left-sided slowing and sharp waves. Ictal EEG is considerably obscured by muscle artifact and not clearly lateralized. Seizure #4 Clinical: asleep, arouses, stiffens, Proceeds to left arm extension and right arm flexion and generalized tonic-clonic activity, almost a mirror image of seizure #3. EEG: Seizure starts with left-sided ??sharp wave evolving rapidly into bilateral polyspike activity. Ictal EEG is considerably obscured by muscle artifact and not clearly lateralized. INTERPRETATION: This EEG is abnormal due to generalized slowing and generalized as well as multifocal epileptiform discharges. Seizures captured suggest either multifocal origin, or unclear origin with variable spread pattern giving mirrror-image asymmetric seizures. 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 The EEG is looking worse off Depakote. We are increasing the dose of phenobarbital. Shashi Mckee MD [place] [address] Pager: [phone], #[phone] Email: [email or web address]ashi Mckee MD NEUROLOGY ORDERABLES * ZVIDEO EEG MONITORING (11/23/2014 5:09 PM EDT) Narrative Shashi Mckee MD - 11/23/2014 5:09 PM EDT Shashi Mckee MD ? 11/23/2014 ??5:09 PM [facility] VIDEO-EEG MONITORING REPORT Patient: Cinthya Brown : 1960 Admit date: 11/18/2014 Date of report: 11/23/2014 ( from 11/22 to ??11/23 Interpreting Physician: Shashi Mckee MD BRIEF HISTORY/INDICATION FOR STUDY: ??Cinthya Brown is a 54 y.o. patient with epilepsy. VideoEEG was performed to assist in medication management. MEDICATIONS: Current Facility-Administered Medications Medication Dose Route Frequency Provider Last Rate Last Dose ? ? PHENobarbital (LUMINAL) tablet 121.5 mg ??121.5 mg Oral Nightly Marcella Kyle MD ? atorvastatin (LIPITOR) tablet 40 mg ??40 mg Oral QPM Yuki Bethea MD ?? 40 mg at 11/22/14 1600 ? ? esomeprazole (NexIUM) capsule 40 mg ??40 mg Oral BID Yuki Bethea MD ?? 40 mg at 11/23/14 0801 ? ? ferrous sulfate EC tablet 325 mg ??325 mg Oral BID WC Yuki Bethea MD ?? 325 mg at 11/23/14 0801 ? ? furosemide (LASIX) tablet 40 mg ??40 mg Oral Daily Yuki Bethea MD ?? 40 mg at 11/23/14 0801 ? ? levOCARNitine (CARNITOR) tablet 330 mg ??330 mg Oral BID Yuki Bethea MD ?? 330 mg at 11/23/14 0802 ? ? sodium chloride 0.9 % flush 5 mL ??5 mL Intravenous BID Yuki Bethea MD ?? 5 mL at 11/23/14 0900 ? ? sodium chloride 0.9 % flush 5-20 mL ??5-20 mL Intravenous Q1 Min PRN Yuki Bethea MD ? lidocaine (XYLOCAINE) 10 mg/mL (1 %) injection 3 mg ??0.3 mL Subcutaneous Once PRN Yuki Bethea MD ? acetaminophen (TYLENOL) tablet 650 mg ??650 mg Oral Q4H PRN Yuki Bethea MD ? docusate sodium (COLACE) capsule 100 mg ??100 mg Oral BID PRN Yuki Bethea MD ? bisacodyl (DULCOLAX) suppository 10 mg ??10 mg Rectal Daily PRN Yuki Bethea MD ? magnesium hydroxide (MILK OF MAGNESIA) oral suspension 10 mL ?? 10 mL Oral Daily PRN Yuki Bethea MD ? OXcarbazepine (TRILEPTAL) tablet 600 mg ??600 mg Oral TID Yuki Bethea MD ?? 600 mg at 11/23/14 1458 ?? METHODS: A 21 channel digitized electroencephalogram was performed in the video/EEG monitoring unit. ?? The 10/20 international system of electrode placement was used and bipolar and referential electrode montages were recorded. ??In addition to EEG the patient was monitored for EKG. ??Monitoring was continuous.The patient was under constant nursing supervision during the recordings. FINDINGS: Wakefulness: During the awake state with the eyes closed the background consisted of a normal amplitude, 5-7 Hz posterior reactive rhythm that attenuated appropriately with eye opening. Beta activity was distributed diffusely with an anterior predominance. There was a normal anterior-posterior voltage gradient. With eye opening the background activity changed to a low voltage mixture of beta, and occasional theta range frequencies. There were no significant asymmetries of background activity noted. Drowsiness and Sleep: With drowsiness there was some waxing and waning of the background rhythm with eventual replacement by a mixture of beta,delta ??and theta activity. Appropriate sleep patterns with sleep spindles and vertex were noted during sleep stage II. Deeper stages of sleep were characterized by generalized slowing. Interictal Activity: Overall slow background.Frequent generalized spike wave and polyspike discharges, and right and left independent spikes and spike-wave complexes. Runs of polyspike activity sometimes more prominent on the right. EKG: EKG revealed normal sinus rhythm. Ictal Activity: 11/19/14 to 11/20/14 See #1: 22:06 Clinical: jerk out of sleep. Right arm extended with left arm flexion. EEG: no clear epileptiform activity. Likely tonic seizure 11/20/14 to 11/21/14: Seizure #2: 19:37 Clinical: speaking on the phone. Eyes start to twitch, becomes unresponsive. Proceeds to right arm extension and left arm flexion. EEG: no clear EEG origination. 11/21/14 to 11/22/14: Seizure #3 Clinical: asleep, arouses, stiffens, Proceeds to right arm extension and left arm flexion and generalized tonic-clonic activity. EEG: Seizure emerges out of runs of right-sided polyspike activity with left-sided slowing and sharp waves. Ictal EEG is considerably obscured by muscle artifact and not clearly lateralized. Seizure #4 Clinical: asleep, arouses, stiffens, Proceeds to left arm extension and right arm flexion and generalized tonic-clonic activity, almost a mirror image of seizure #3. EEG: Seizure starts with left-sided ??sharp wave evolving rapidly into bilateral polyspike activity. Ictal EEG is considerably obscured by muscle artifact and not clearly lateralized. 11/22/14 to 11/23/14: No seizures INTERPRETATION: This EEG is abnormal due to generalized slowing and generalized as well as multifocal epileptiform discharges. Seizures captured suggest either multifocal origin, or unclear origin with variable spread pattern giving mirrror-image asymmetric seizures. 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 The EEG was looking worse off Depakote, but seems closer to baseline now. We are increasing the dose of phenobarbital. The flury of seizures following the cessation of Depakote seems to be dying down, increasing the dose of phenobarbital may have helped. Shashi Mckee MD [place] [address] Pager: [phone], #[phone] Email: [email or web address] Fam Matta MD NEUROLOGY ORDERA BLES * (ABNORMAL) Differential, Automated (11/18/2014 7:30 PM EDT) Neutrophil % 41.4 % CERNER MILLENNIUM Neutrophil Absolute 1.34(L) 1.50 - 6.30 x10(3)/mc L CERNER MILLENNIUM Lymph % 46.9 % CERNER MILLENNIUM Lymphocytes Abs 1.5 1.0 - 3.6 x10(3)/mc L CERNER MILLENNIUM Monocyte % 10.2 % CERNER MILLENNIUM Monocyte Abs 0.3 0.2 - 1.0 x10(3)/mc L CERNER MILLENNIUM Eos % 0.9 % CERNER MILLENNIUM Eosinophils Abs 0.0 0.0 - 0.5 x10(3)/mc L CERNER MILLENNIUM Basophil % 0.3 % CERNER MILLENNIUM Baso Absolute 0.0 0.0 - 0.2 x10(3)/mc L CERNER MILLENNIUM Immature Gran % 0.30 % CERN ER MILLENNIUM Comment: Immature granulocytes(IG's)percentage and absolute count will include metamyelocytes, myelocytes, and promyelocytes. Blood smears from CBCs yielding IG's will be scanned manually for concordance. If this scan disagrees with the automated IG or if promyelocytes are noted, a manual differential will be performed. Immature Gran Absolute 0.01 0.00 - 0.05 x10(3)/mc L CERNER MILLENNIUM Blood specimen (specimen) 11/18/2014 7:30 PM EDT 11/18/2014 7:40 PM EDT Narrative Resulting Agency Comment Spec In Lab Fam Matta MD HEMATOLOGY ORDER ROQUE CERNER MILLENNIUM * (ABNORMAL) Hemogram (11/18/2014 7:30 PM EDT) White Blood Cell 3.2(L) 4.0 - 10.0 x10(3)/mc L CERNER MILLENNIUM Red Blood Cell 4.22 3.93 - 5.22 x10(6)/mc L CERNER MILLENNIUM Hemoglobin 11.0(L) 11.2 - 15.7 gm/dL CERNER MILLENNIUM Hematocrit 34.0 34.0 - 45.0 % CERNER MILLENNIUM Mean Cell Volume 80.6 79.0 - 94.0 fL CERNER MILLENNIUM Mean Cell Hemoglobin 26.1(L) 26.6 - 32.2 pg CERNER MILLENNIUM Mean Cell Hemoglobin Concentration 32.4 32.0 - 36.5 gm/dL CERNER MILLENNIUM Platelet 182 145 - 370 x10(3)/mc L CERNER MILLENNIUM RDW Standard Deviation 47.0(H) 35.0 - 46.0 fL CERNER MILLENNIUM RDW coefficient of variation 16.0(H) 10.9 - 14.4 % CERNER MILLENNIUM Mean Platelet Volume 9.9 9.0 - 12.0 fL CERNER MILLENNIUM Blood specimen (specimen) 11/18/2014 7:30 PM EDT 11/18/2014 7:40 PM EDT Narrative Resulting Agency Comment Spec In Lab Fam Matta MD HEMATOLOGY ORDER ROQUE Performing Organization Address [facility] Co de Phone Number [facility] * Valproic Acid Level, Total (11/18/2014 7:30 PM EDT) Valproic Acid 42 mg/L [facility] Comment: Therapeutic Range: Anticonvulsant Therapy: ??50-100 mg/L Manic Episodes Associated with Bipolar Disorder: ??50-125 mg/L Blood specimen (specimen) 11/18/2014 7:30 PM EDT 11/18/2014 7:40 PM EDT Narrative Resulting Agency Comment Spec In Lab Fam Matta MD CHEMISTRY ORDERA BLES Performing Organization Address [facility] Co de Phone Number [facility] * (ABNORMAL) Oxcarbazepine Metabolite (MHC) (11/18/2014 7:30 PM EDT) Oxcarbazep Met (Mhc) (DECEMBER) 36(H) 3 - 35 mcg/mL [facility] Comment: Test Performed by: [place] [address] P[employer]ing Machine Operator: Alok Mata II, M.D., Ph.D. Blood specimen (specimen) 11/18/2014 7:30 PM EDT 11/19/2014 8:47 AM EDT Narrative Resulting Agency Comment Spec In Lab Fam Matta MD LAB SEND OUT ORD ERABLES Performing Organization Address City/[facility] Co de Phone Number [facility] * Phenobarbital level (11/18/2014 7:30 PM EDT) Phenobarbital 25.0 15.0 - 40.0 mg/L [facility] Comment: Therapeutic Range: ??15-40 mg/L Toxic: ??> 50 mg/L Blood specimen (specimen) 11/18/2014 7:30 PM EDT 11/18/2014 7:40 PM EDT Narrative Resulting Agency Comment Spec In Lab Fam Matta MD CHEMISTRY ORDERA BLES Performing Organization Address [facility] de Phone Number CERNER MILLENNIUM * (ABNORMAL) Hepatic Function Panel (11/18/2014 7:30 PM EDT) Protein, Total 6.7 6.1 - 8.0 gm/dL CERNER MILLENNIUM Albumin 4.0 3.2 - 5.2 gm/dL CERNER MILLENNIUM Aspartate Aminotransferase 22 0 - 30 unit/L CERNER MILLENNIUM Alanine Aminotransferase 25 0 - 30 unit/L CERNER MILLENNIUM Alkaline Phosphatase 108(H) 40 - 104 unit/L CERNER MILLENNIUM Bilirubin, Total <0.2(L) 0.2 - 1.3 mg/dL CERNER MILLENNIUM Comment:result rechecked-NM Bilirubin, Direct <0.1 0.0 - 0.3 mg/dL CERNER MILLENNIUM Blood specimen (specimen) 11/18/2014 7:30 PM EDT 11/18/2014 7:40 PM EDT Narrative Resulting Agency Comment Spec In Lab Fam Matta MD CHEMISTRY ORDERA BLES Performing Organization Address [facility] de Phone Number CERNER MILLENNIUM * (ABNORMAL) Creatinine (11/18/2014 7:30 PM EDT) Creatinine 0.54(L) 0.70 - 1.20 mg/dL CERNER MILLENNIUM Comment: Please note that the pediatric reference intervals supplied above were not validated at [facility]. Results from pediatric patients should be interpreted in conjunction to the patient's age, height and muscle mass. Est Glomerular Filtration Rate >60 >=60 CERNER [...] the following links into your internet browser. [email or web address] Blood specimen (specimen) 11/18/2014 7:30 PM EDT 11/18/2014 7:40 PM EDT Narrative Resulting Agency Comment Spec In Lab Fam Matta MD CHEMISTRY ORDERA BLES Performing Organization Address [facility] Co de Phone Number CERNER MILLENNIUM * BUN (11/18/2014 7:30 PM EDT) Blood Urea Nitrogen 17 8 - 18 mg/dL CERNER MILLENNIUM Blood specimen (specimen) 11/18/2014 7:30 PM EDT 11/18/2014 7:40 PM EDT Narrative Resulting Agency Comment Spec In Lab Fam Matta MD CHEMISTRY ORDERA BLES Performing Organization Address [facility] de Phone Number CERNER MILLENNIUM * (ABNORMAL) Electrolytes panel (11/18/2014 7:30 PM EDT) Sodium 139 135 - 145 mmol/L CERNER MILLENNIUM Potassium 3.4(L) 3.5 - 5.0 mmol/L CERNER MILLENNIUM Comment: Please note: ??Patients with WBC >100,000 may have falsely elevated Potassium levels. ??For accurate Potassium quantification in these patients send serum separator tube (gold top) for subsequent determinations. ??Contact the Clinical Chemistry Laboratory if there are any questions. Chloride 97(L) 98 - 107 mmol/L CERNER MILLENNIUM Carbon Dioxide 30 22 - 31 mmol/L CERNER MILLENNIUM Anion Gap 12 5 - 15 mmol/L CERNER MILLENNIUM Blood specimen (specimen) 11/18/2014 7:30 PM EDT 11/18/2014 7:40 PM EDT Narrative Resulting Agency Comment Spec In Lab Fam Matta MD CHEMISTRY ORDERA DEMI IMELDA VICK documented in this encounter Visit Diagnoses Diagnosis Epilepsy seizure, generalized, convulsive Generalized convulsive epilepsy without mention of intractable epilepsy documented in this encounter Administered Medications Inactive Administered Medications - up to 3 most recent administrations Medication Order MAR Action Action Date Dose Rate Site atorvastatin (LIPITOR) tablet 40 mg 40 mg, Oral, EVERY EVENING, First dose on Mon11/19/14 at 1700, Until Discontinued, Routine Given 11/23/2014 5:44 PM EDT 40 mg Given 11/22/2014 4:00 PM EDT 40 mg Given 11/21/2014 4:00 PM EDT 40 mg divalproex (DEPAKOTE) EC tablet 125 mg 125 mg, Oral, 2 TIMES DAILY, First dose on Mon11/18/14 at 2100, Until Discontinued, Routine Given 11/19/2014 8:26 AM EDT 125 mg Given 11/18/2014 9:39 PM EDT 125 mg esomeprazole (NexIUM) capsule 40 mg 40 mg, Oral, 2 TIMES DAILY, First dose on Mon11/18/14 at 2100, Until Discontinued, Routine Given 11/24/2014 8:06 AM EDT 40 mg Given 11/23/2014 8:30 PM EDT 40 mg Given 11/23/2014 8:01 AM EDT 40 mg ferrous sulfate EC tablet 325 mg 325 mg, Oral, 2 TIMES DAILY WITH MEALS, First dose on Mon11/19/14 at 0800, Until Discontinued, Please substitute formulary equivalent, Routine Given 11/24/2014 7:47 AM EDT 325 mg Given 11/23/2014 5:44 PM EDT 325 mg Given 11/23/2014 8:01 AM EDT 325 mg furosemide (LASIX) tablet 40 mg 40 mg, Oral, DAILY, First dose on Mon11/19/14 at 0900, Until Discontinued, Routine Given 11/24/2014 8:06 AM EDT 40 mg Given 11/23/2014 8:01 AM EDT 40 mg Given 11/22/2014 8:26 AM EDT 40 mg levOCARNitine (CARNITOR) tablet 330 mg 330 mg, Oral, 2 TIMES DAILY, First dose on Mon11/18/14 at 2100, Until Discontinued, Routine Given 11/24/2014 8:06 AM EDT 330 mg Given 11/23/2014 8:29 PM EDT 330 mg Given 11/23/2014 8:02 AM EDT 330 mg LORazepam (ATIVAN) injection 2 mg 2 mg, Intravenous, ONCE, 1 dose, On 11/22/14 at 0430, Routine Given 11/22/2014 4:06 AM EDT 2 mg OXcarbazepine (TRILEPTAL) tablet 600 mg 600 mg, Oral, 3 TIMES DAILY, First dose on Mon11/18/14 at 2100, Until Discontinued, Patient's own medication, Routine Given 11/24/2014 2:39 PM EDT 600 mg Given 11/24/2014 8:06 AM EDT 600 mg Given 11/23/2014 8:30 PM EDT 600 mg PHENobarbital (LUMINAL) tablet 121.5 mg 121.5 mg (rounded from 120 mg), Oral, NIGHTLY, First dose (after last modification) on Mon11/23/14 at 2100, Until Discontinued, Routine Given 11/23/2014 8:28 PM EDT 121.5 mg PHENobarbital (LUMINAL) tablet 32.4 mg 32.4 mg (rounded from 30 mg), Oral, ONCE, 1 dose, On Mon11/22/14 at 0000, STAT Given 11/22/2014 12:41 AM EDT 32.4 m g PHENobarbital (LUMINAL) tablet 64.8 mg 64.8 mg, Oral, NIGHTLY, First dose (after last reorder) on Mon11/18/14 at 2100, Until Discontinued, Routine Given 11/21/2014 8:25 PM EDT 64.8 mg Given 11/20/2014 9:00 PM EDT 64.8 mg Given 11/19/2014 8:34 PM EDT 64.8 mg PHENobarbital (LUMINAL) tablet 89.1 mg 89.1 mg (rounded from 90 mg), Oral, NIGHTLY, First dose (after last modification) on 11/22/14 at 2100, Until Discontinued, Routine Given 11/22/2014 9:07 PM EDT 89.1 mg sodium chloride 0.9 % flush 5 mL 5 mL, Intravenous, 2 TIMES DAILY, First dose on Mon11/18/14 at 2100, Until Discontinued, Routine Given 11/24/2014 8:07 AM EDT 5 mLs Given 11/23/2014 8:31 PM EDT 5 mLs Given 11/23/2014 9:00 AM EDT 5 mLs documented in this encounter Active and Recently Administered Medications Times are shown in EDT. Scheduled Medication Order 11/22/2014 11/23/2014 11/24/2014 atorvastatin (LIPITOR) tablet 40 mg (CANCELED) 40 mg, Oral, EVERY EVENING, First dose on Mon11/19/14 at 1700, Until Discontinued, Routine 1600 (Given - Provider: Macy Matt RN) 1744 (Given - Provider: Lulu Schofield RN) esomeprazole (NexIUM) capsule 40 mg (CANCELED) 40 mg, Oral, 2 TIMES DAILY, First dose on Mon11/18/14 at 2100, Until Discontinued, Routine 0826 (Given - Provider: Macy Matt RN)2108 (Given - Provider: Emilio Pugh RN) 0801 (Given - Provider: Lulu Schofield RN)2030 (Given - Provider: Roberta Ford RN) 0806 (Given - Provider: [place] Shabazz RN) ferrous sulfate EC tablet 325 mg (CANCELED) 325 mg, Oral, 2 TIMES DAILY WITH MEALS, First dose on Mon11/19/14 at 0800, Until Discontinued, Please substitute formulary equivalent, Routine 0826 (Given - Provider: Mcay Matt RN)1600 (Given - Provider: Macy Matt RN) 0801 (Given - Provider: Lulu Schofield RN)1744 (Given - Provider: Lulu Schofield RN) 0747 (Given - Provider: [place] Shabazz RN) furosemide (LASIX) tablet 40 mg (CANCELED) 40 mg, Oral, DAILY, First dose on Mon11/19/14 at 0900, Until Discontinued, Routine 0826 (Given - Provider: Macy Matt RN) 0801 (Given - Provider: Lulu Schofield RN) 0806 (Given - Provider: aJmaica Shabazz RN) levOCARNitine (CARNITOR) tablet 330 mg (CANCELED) 330 mg, Oral, 2 TIMES DAILY, First dose on Mon11/18/14 at 2100, Until Discontinued, Routine 0826 (Given - Provider: Macy Matt RN)210 (Given - Provider: Emilio Pugh RN) 0802 (Given - Provider: Lulu Schofield, PATT)2028 (Given - Provider: Roberta Ford, PATT) 0806 (Given - Provider: [place] Shabazz RN) LORazepam (ATIVAN) injection 2 mg (COMPLETED) 2 mg, Intravenous, ONCE, 1 dose, On Mon11/22/14 at 0430, Routine 0406 (Given - Provider: Emilio Pugh, PATT) OXcarbazepine (TRILEPTAL) tablet 600 mg (CANCELED) 600 mg, Oral, 3 TIMES DAILY, First dose on Mon11/18/14 at 2100, Until Discontinued, Patient's own medication, Routine 08 (Given - Provider: Macy Matt RN)1559 (Given - Provider: Macy Matt RN)210 (Given - Provider: Emilio Pugh RN) 0801 (Given - Provider: Lulu Schofield, PATT)1458 (Given - Provider: Lulu Schofield RN)2030 (Given - Provider: Roberta Ford RN) 0806 (Given - Provider: [place] Shabazz RN)1439 (Given - Provider: [place] Shabazz RN) PHENobarbital (LUMINAL) tablet 121.5 mg 121.5 mg (rounded from 120 mg), Oral, NIGHTLY, First dose (after last modification) on Mon11/23/14 at 2100, Until Discontinued, Routine 2027 (Given - Provider: Roberta Ford, PATT) PHENobarbital (LUMINAL) tablet 32.4 mg (COMPLETED) 32.4 mg (rounded from 30 mg), Oral, ONCE, 1 dose, On Mon11/22/14 at 0000, STAT 0041 (Given - Provider: Emilio Pugh RN) PHENobarbital (LUMINAL) tablet 89.1 mg (CANCELED) 89.1 mg (rounded from 90 mg), Oral, NIGHTLY, First dose (after last modification) on Mon11/22/14 at 2100, Until Discontinued, Routine 2106 (Given - Provider: Emilio Pugh, PATT) sodium chloride 0.9 % flush 5 mL (CANCELED) 5 mL, Intravenous, 2 TIMES DAILY, First dose on Mon11/18/14 at 2100, Until Discontinued, Routine 08 (Given - Provider: Macy Matt, PATT)2107 (Given - Provider: Emilio Pugh, PATT) 09 (Given - Provider: Lulu Schofield RN)2030 (Given - Provider: Roberta Ford RN) 08 (Given - Provider: Jamaica Shabazz, PATT) documented in this encounter Care Teams Aviation Project Manager Relationship Specialty Start Date End Date Cee Johnson MD [address] [place] [id number] PCP - General 06/29/10 06/23/16 documented as of this encounter
--- OUTSIDE RECORDS SUMMARY | 2024-06-28 22:05 | XMS_ITS | Encounter Summary ---
Author Organization [facility] [place] [address] Care Team Providers Care Assistant Housekeeping Manager Name Role Phone Unavailable Primary Care Provider Unavailabl e Encounter Details Date Type Department Care Team (Late st Contact Info) Description 06/07/2010 12:10 PM EDT Follow-[place] [address] Deborah Vega MD [facility] [place] [address] Social History Tobacco Use Types Packs/Day Years [...] 11:00 AM EST Office [place] [address] Sarah Serra APRN [facility] [place] [address] documented as of this encounter Visit Diagnoses Not on filedocumented in this encounter
--- OUTSIDE RECORDS SUMMARY | 2024-06-28 22:05 | XMS_ITS | Encounter Summary ---
[place] [address] Care Team Providers Care Fishing Worker Name Role Phone Cee Escobar MD Primary Care Provider [phone] Encounter Details Date Type Department Care Team (Late st Contact Info) Description 10/01/2014 [place] [address] Sarah Serra APRN [facility] [place] [address] Epilepsy seizure, generalized, convulsive Social History Tobacco [...] encounter Miscellaneous Notes * Telephone Encounter - Angi Amato RN - 10/01/2014 8:39 AM EST Call placed to Lulu, the caregiver, to inform her of recommendation from Oscar Barrett follows: Sarah Serra APRN Sent: MonSeptember 30, 2014 5:58 PM To: Angi Amato RN Message Caryn, Could you call caregiver? If patient is still having seizures she may increase Trileptal to 600mg 3times a day. If she is doing okay I think it is better to wait until Terri returns to make any morechanges. Thanks, Sarah Lawson states that the seizures are continuing, they are not really big ones, but she is inclinedto go ahead and increase the Trileptal as recommended. She states that she will need a new prescription as well as a written order for the change. I will prepare these things. 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
--- OUTSIDE RECORDS SUMMARY | 2024-06-28 22:05 | XMS_ITS | Encounter Summary ---
Author Organization [facility] [place] [address] Care Team Providers Care Dumpster Operator Name Role Phone Cee Escobar MD Primary Care Provider [phone] Reason for Visit * Reason Onset Date Comments Other 12/01/2010 prior authorizat ion request for medication Encounter Details Date Type Department Care Team (Late st Contact Info) Description 12/01/2010 Telephone [place] [id number] Terri Hsu APRN [facility] [place] [address] Other (prior authorization request for medication) Social History Tobacco Use Types Packs/Day Years [...] Encounter - Katlin Sargent LPN - 12/01/2010 10:03 AM EDT BARRY Pt ID: [id number] Insurance: [place] Medicaid Diagnosis: Epilepsy Provider: Terri Gil APRN Medication: Vimpat 200 mg tab ; Take 1/2 tab in am and 1 tab in pm [facility]acy: [facility] [place] Approved: 11-12-2010 to 11-13-2011 Has been stabilized on vimpat since October 2009 Has tried and failed Lyrica Aug 2008- March 2009 Keppra Sep. 2004- 2006 Lamictal 2001 Felbamate 1994 Tegretol and Dilantin 1992 documented in this encounter Plan of Treatment Upcoming Encounters Date Type Department Care Team (Late st Contact Info) Description 08/06/2024 11:00 AM EST Office Visit [place] [address] Sarah Serra, INSIDE SALES REPRESENTATIVE [facility] [place] [address] documented as of this encounter Visit Diagnoses Not on filedocumented in this encounter Care Teams Dumpster Operator Relationship Specialty Start Date End Date Cee Escobar MD [address] [place] [address] PCP - General 06/29/10 06/23/16 documented as of this encounter
--- OUTSIDE RECORDS SUMMARY | 2024-06-28 22:05 | XMS_ITS | Encounter Summary ---
[place] [address] Care Team Providers Care Heatset Winder Operator Name Role Phone Cee Escobar MD Primary Care Provider [phone] Reason for Visit * Reason Comments Suture / Staple Removal Encounter Details Date Type Department Care Team (Late st Contact Info) Description 04/19/2012 9:45 AM EDT Follow-[place] [phone] Jelly Lake RN Dressing change/suture removal (Primary Dx) Discharge Disposition: Home Social History Tobacco Use [...] as of this encounter Progress Notes * Jelly Lake RN - 04/19/2012 10:18 AM EDT Cinthya is a 51-year-old female with a history of intractable seizures who has been treated with a vagal nerve stimulator. The implanted pulse generator had been found to be depleted secondary to use. She is s/p VNS battery replacement on 04/02/12. Cinthya is accompanied by her caregiver. She continues to have seizures but not daily. Her left upperchest incision is well approximated without erythema, edema, drainage, or tenderness. The suture was easily removed. Cinthya is scheduled to see Terri Cannon APRN for further VNS programming today. documented in this encounter Plan of Treatment Upcoming Encounters Date Type Department Care Team (Late st Contact Info) Description 08/06/2024 11:00 AM EST Office [place] [address] Sarah Serra APRN [facility] [place] [address] documented as of this encounter Visit Diagnoses Diagnosis Dressing change/suture removal- Primary Encounter for removal of sutures documented in this encounter Care Teams Heatset Winder Operator Relationship Specialty Start Date End Date Cee Escobar MD [address] [place] [address] PCP - General 06/29/10 06/23/16 documented as of this encounter
--- OUTSIDE RECORDS SUMMARY | 2024-06-28 22:05 | XMS_ITS | Encounter Summary ---
Author Organization [facility] [address] Care Team Providers Care Bargain Table Clerk Name Role Phone Cee Escobar MD Primary Care Provider [phone] Reason for Visit * Reason Comments Follow-up for seizures Encounter Details Date Type Department Care Team (Late st Contact Info) Description 11/10/2010 1:05 PM EDT [place] [phone] Terri Hsu APRN [facility] [place] [address] Epilepsy seizure, generalized, convulsive (Primary Dx) Discharge Disposition: Home Social History [...] as of this encounter Progress Notes * Terri Gil APRN - 11/10/2010 1:33 PM EDT Subjective: Patient ID: Cinthya Brown is a 50 y.o. female. HPI patient seen in follow up. She continues to have several generalized tonic seizures per month and several clonic jerks per week. They are brief. She saw Dr. Vega and had a new mask fitted for BiPaP. She is doing much better with that. Her moods are good except for some intermittent aggression when she does not get her way. Her VNS seems to be working fine. She has had this battery for almost 9 years. Review of Systems Skin: Positive for rash. Neurological: Positive for seizures. Psychiatric/Behavioral: Positive for sleep disturbance and agitation. Objective: Physical Exam Skin: Rash noted. She has an odd type rash on her arms and face which she has had for a long time. It is redness under the skin. No raised areas nor itching associated with it. Neurologic Exam Mental Status Level of consciousness: alert Able to say brief words on occasion. She repeats words often. Motor Exam Sitting in wheelchair I reviewed the following: Labs- last done May 2010 and all wnl. I am not repeating any. VNS parameters: Increased duty cycle to Output current: 1.75 milliamps Signal frequency: 25 Hertz Pulse Width:500 microseconds On time:14 sec Off time:1.1 min Magnet current:2.25 milliamps She tolerated this well. I did a lead test and normal mode test with a DC code of 2 and 3 respectively. Assessment and Plan: Cinthya is about the same. I increased the duty cycle of the VNS. She is nearing end of service soon but for now it is still functioning. She will return in 6 months for follow up. I am not making any medication changes. No problem-specific visit notes found for this encounter. documented in this encounter Plan of Treatment Upcoming Encounters Date Type Department Care Team (Late st Contact Info) Description 08/06/2024 11:00 AM EST Office [place] [address] Sarah Serra APRN [facility] [place] [address] documented as of this encounter Visit Diagnoses Diagnosis Epilepsy seizure, generalized, convulsive- Primary Generalized convulsive epilepsy without mention of intractable epilepsy documented in this encounter Care Teams Bargain Table Clerk Relationship Specialty Start Date End Date Cee Escobar MD [address] [place] [address] PCP - General 06/29/10 06/23/16 documented as of this encounter
--- OUTSIDE RECORDS SUMMARY | 2024-06-28 22:05 | XMS_ITS | Encounter Summary ---
Author [facility] [place] [address] Care Team Providers Care Certified Optician Name Role Phone Cee Escobar MD Primary Care Provider [phone] Encounter Details Date Type Department Care Team (Late st Contact Info) Description 03/19/2012 [place] [address] Ethan Dye MD Social History Tobacco Use Types Packs/Day Years [...] 11:00 AM EST Office [place] [address] Sarah Serra APRN [facility] [place] [address] documented as of this encounter Visit Diagnoses Not on filedocumented in this encounter Care Teams Certified Optician Relationship Specialty Start Date End Date Cee Escobar MD [address] [place] [address] PCP - General 06/29/10 06/23/16 documented as of this encounter
--- OUTSIDE RECORDS SUMMARY | 2024-06-28 22:05 | XMS_ITS | Encounter Summary ---
Author Organization [facility] [address] Care Team Providers Care Snowsport Instructor Name Role Phone Cee Escobar MD Primary Care Provider [phone] Encounter Details Date Type Department Care Team (Late st Contact Info) Description 03/06/2013 3:45 PM EDT Follow-[place] [address] Terri Hsu APRN [facility] [place] [address] Epilepsy seizure, generalized, convulsive (Primary Dx); High risk medication use Discharge Disposition: Home [...] Sign Reading Time Taken Comments Blood Pressure 105/81 03/06/2013 3:42 PM EDT Pulse 87 03/06/2013 3:42 PM EDT Temperature - - Respiratory Rate - - Oxygen Saturation - - Inhaled Oxygen Concentration - - Weight 72.6 kg (160 lb) 03/06/2013 3:42 PM EDT Height 151.1 cm (4' 11.5) 03/06/2013 3:42 PM ED T Body Mass Index 31.78 03/06/2013 3:42 PM EDT documented in this encounter Progress Notes * Terri Hsu, INSPECTOR [employer] - 03/06/2013 6:29 PM EDT HPI: Cinthya is seen for a follow up visit. She was accompanied by her home providers. She is doing much better since having the 250mg of depakote added back. She is averaging about 0- 2 seizures per month which represents good control. She has had no seizures in the month of February. Her moods and behavior have been good as well. Unfortunately, she had a bad episode back in December where she had high fevers, vomiting, increased seizures and liver problems. She was hospitalized for a week. She apparently had a positive mono test. It took her 6 weeks to recover. She is now back to normal and doing well. Seizure Control: QEpilepsy 03/06/2013 Last seizure was: Within past year Number of seizures in past month: 0 Were seizures disabling? 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 double vision - 2. headache - 3. rash Sometimes 4. unsteadiness Often 5. upset stomach, nausea, vomiting Rarely 6. troubles with gums or teeth - 7. weight loss or gain - 8. tremors or shaking Often 9. restlessness - 10. dizziness Sometimes 11. tiredness/sleepiness Often 12. trouble sleeping Rarely 13. difficulties concentrating - 14. feelings of aggression Never 15. depression Never 16. thoughts about ending your life - 17. palpitations or chest pains - 18. bladder problems - 19. breathing problems - Memory and concentration symptoms (QOLIE-31) Memory and concentration symptoms (QOLIE-31) 03/06/2013 Memory problems - Difficulty reasoning and solving problems Some of the time Trouble remembering things people tell None of the time Trouble concentrating on reading - Trouble concentrating on doing one thing at a time - How much do your memory difficulties bother you? 1 - Not at all bothersome QOLIE-31 Incomplete Depression Score (NDDI-E) Depression Score (NDDI-E) 03/06/2013 Depression Score Incomplete Quality of Life Quality of Life 07/25/2012 Quality of Life (10-Best Quality of Life; 0-Worst Quality of Life) 8 Outpatient Prescriptions Marked as Taking for the 03/06/13 encounter (Follow-Up) with Terri Hsu APRN Medication Sig Dispense Refill ??? DEPAKOTE 500 mg EC tablet Take 1 tablet by mouth 3 times daily. Total dose 1500mg per day. 90 tablet PRN ??? PHENobarbital (LUMINAL) 30 mg tablet Take 2 tablets by mouth nightly. 60 tablet 5 ??? TRILEPTAL 300 mg tablet Take 600mg twice daily and 300mg at noon 150 tablet PRN ??? levoCARNitine (CARNITOR) 330 mg tablet Take 1 tablet by mouth 2 times daily. 60 tablet PRN ??? IPRIFLAV/CA CARBONATE/VIT D3 (CALCIUM CARB-VIT D3-IPRIFLAVON ORAL) Take by mouth 3 times daily. ??? LORazepam (ATIVAN) 1 mg tablet Take 1 tablet by mouth. Take 1 tab after seizure. May repeat up to 4mg in 24 hours 30 tablet 5 ??? omeprazole (PRILOSEC) 20 mg capsule Take 20 mg by mouth daily. ??? diaZEPam (DIASTAT ACUDIAL) 12.5-15-17.5-[address] 15 mg rectally as needed. ??? atorvastatin (LIPITOR) 40 mg tablet Take 40 mg by mouth daily. ??? furosemide (LASIX) 40 mg tablet Take 20 mg by mouth daily. ??? ascorbic acid (VITAMIN C) 250 mg tablet Take 250 mg by mouth daily. ??? ferrous sulfate 324 mg (65 mg Iron) TbEC Take 324 mg by mouth daily. Physical Exam Blood pressure 105/81, pulse 87, height 151.1 cm (4' 11.5), weight 72.576 kg (160 lb). Skin: She has an odd type rash on [...] it is working well. No impedence noted. Output current: 1.75 milliamps Signal frequency: 20 Hertz Pulse Width:500 microseconds On time:21 sec Off time:1.8 min Magnet current:2.25 milliamps Impression/Plan: Cinthya is doing much better in terms of seizures despite a set back in December of a prolonged illness. She has recovered well. She is tolerating the VNS settings well. I did not make any changes in the settings nor her medications. She will return in 1 year for follow up. documented in this encounter Plan of Treatment Upcoming Encounters Date Type Department Care Team (Late st Contact Info) Description 08/06/2024 11:00 AM EST Office [place] [address] Sarah Serra APRN [facility] [place] [address] documented as of this encounter Visit Diagnoses Diagnosis Epilepsy seizure, generalized, convulsive- Primary Generalized convulsive epilepsy without mention of intractable epilepsy High risk medication use Encounter for long-term (current) use of other medications documented in this encounter Care Teams Snowsport Instructor Relationship Specialty Start Date End Date Cee Escobar MD [address] [place] [address] PCP - General 06/29/10 06/23/16 documented as of this encounter
--- OUTSIDE RECORDS SUMMARY | 2024-06-28 22:05 | XMS_ITS | Encounter Summary ---
Author Organization [facility] [place] [address] Care Team Providers Care Marketing Support Manager Name Role Phone Cee Escobar MD Primary Care Provider [phone] Reason for Visit * Reason Onset Date Comments Other 02/20/2012 requests labs be done Encounter Details Date Type Department Care Team (Late st Contact Info) Description 02/20/2012 [place] [address] Leslye Hsu APRN [facility] [place] [address] Other (requests labs be done) Social History Tobacco Use Types Packs/Day Years [...] encounter Miscellaneous Notes * Telephone Encounter - Leslye Hsu APRN - 02/24/2012 5:51 PM EDT I called to speak to Marita but had to leave a message. She is near end of service for the VNS. Her battery life calculation shows that it is close to being depleted. She will need an appt with Dr. Dye for reimplantation. * Telephone Encounter - Ruth Holguin RN - 02/20/2012 12:25 PM EDT CaregiverJen, asks to speak with leslye hsu as pt having more sizures and asks that drug levelsbe ordered. I will forward this message to Leanne hsu. documented in this encounter Plan of Treatment Upcoming Encounters Date Type Department Care Team (Late st Contact Info) Description 08/06/2024 11:00 AM EST Office [place] [address] Sarah Serra APRN [facility] [place] [address] documented as of this encounter Visit Diagnoses Not on filedocumented in this encounter Care Teams Marketing Support Manager Relationship Specialty Start Date End Date Cee Escobar MD [address] [place] [address] PCP - General 06/29/10 06/23/16 documented as of this encounter
--- OUTSIDE RECORDS SUMMARY | 2024-06-28 22:05 | XMS_ITS | Encounter Summary ---
[place] [address] Care Team Providers Care Complementary Health Therapists Name Role Phone Cee Escobar MD Primary Care Provider [phone] Encounter Details Date Type Department Care Team (Late st Contact Info) Description 03/20/2012 3:40 PM EDT Clinical Support [place] [address] Social History Tobacco Use Types Packs/Day Years [...] - Respiratory Rate - - Oxygen Saturation 100% 03/20/2012 4:00 PM EDT Inhaled Oxygen Concentration - - Weight - - Height - - Body Mass Index - - documented in this encounter Progress Notes * Helen Nuñez RN - 03/20/2012 4:25 PM EDT Patient Name: Cinthya Brown Patient Age: 51 y.o. Birthdate: 1960 Admit date: (Not on file) Attending Physician: No att. providers found Pre-anesthesia questionnaire reviewed with patient and caregiver. No previous issues with anesthesia. Patient is developmentally disabled and has lived with caregiver for over 18 years. Patient does have major motor seizures which have been long-standing. Pre-op folder reviewed with patient and caregiver and all questions addressed. Labs drawn. documented in this encounter Plan of Treatment Upcoming Encounters Date Type Department Care Team (Late st Contact Info) Description 08/06/2024 11:00 AM EST Office [place] [address] Sarah Serra APRN [facility] [place] [address] documented as of this encounter Visit Diagnoses Not on filedocumented in this encounter Care Teams Complementary Health Therapists Relationship Specialty Start Date End Date Cee Escobar MD [address] [place] [address] PCP - General 06/29/10 06/23/16 documented as of this encounter
--- OUTSIDE RECORDS SUMMARY | 2024-06-28 22:05 | XMS_ITS | Encounter Summary ---
[place] [address] Care Team Providers Care Fence Laborer Name Role Phone Cee Escobar MD Primary Care Provider [phone] Reason for Visit * Reason Comments Obstructive Sleep Apnea Encounter Details Date Type Department Care Team (Late st Contact Info) Description 06/06/2011 1:10 PM EDT Office [place] [address] Deborah Vega MD [facility] [place] [place] [address] Obstructive sleep apnea (adult) (pediatric) (Primary Dx) Social History Tobacco Use Types [...] Sign Reading Time Taken Comments Blood Pressure 116/80 06/06/2011 1:18 PM EDT Pulse 83 06/06/2011 1:18 PM EDT Temperature - - Respiratory Rate - - Oxygen Saturation - - Inhaled Oxygen Concentration - - Weight - - Height - - Body Mass Index - - documented in this encounter Progress Notes * Deborah Vega MD - 06/06/2011 1:57 PM EDT Sleep Medicine Follow-Up Note HPI: Cinthya Brown is a 50 y.o. female seen for follow-up of obstructive sleep apnea. Last seen inDecember 2010. Ongoing problems with mask interface. Got new mask - windows architect reports that new mask fitting better. No yoder on face. Cinthya still has days when wears BiPAP and some days when takes off. Stripping Shovel Oiler is aware of leaking - sometimes can fix it. Having worsening problems with ankle edema as well as increased seizures. Seems more tired during the day. VNS has not been adjusted further since our last visit in December. Stripping Shovel Oiler does notice differences in daytime functioning when uses BiPAP vs not using - if she finds that she has taken it off, she knows that Cinthya will be napping that day. Able to stay awake all day if uses BiPAP. ROS: CON: weight change: thinks weight stable CV: increased ankle edema NEURO: some increased seizures Past Medical History: Past Medical History Diagnosis Date ??? Seizures ??? Hyperlipidemia ??? RIA (obstructive sleep apnea) ??? MR (mental retardation) Medications: Current outpatient prescriptions ordered prior to encounter Medication Sig Dispense Refill ??? TRILEPTAL 300 mg tablet Take by mouth. 600mg twice daily and 300mg at noon (total 1500mg daily)150 tablet PRN ??? PHENobarbital (LUMINAL) 30 mg tablet Take 2 tablets by mouth nightly. 60 tablet 5 ??? DEPAKOTE 500 mg EC tablet Take 1 tablet by mouth 3 times daily. 90 tablet PRN ??? levoCARNitine (CARNITOR) 330 mg tablet Take 1 tablet by mouth 2 times daily. 60 tablet PRN ??? atorvastatin (LIPITOR) 40 mg tablet Take 40 mg by mouth daily. ??? furosemide (LASIX) 40 mg tablet Take 40 mg by mouth daily. ??? ascorbic acid (VITAMIN C) 250 mg tablet Take 250 mg by mouth daily. ??? ferrous sulfate 324 mg (65 mg Iron) TbEC Take 324 mg by mouth. ??? acetaminophen (TYLENOL) 325 mg tablet ??? omeprazole (PRILOSEC) 20 mg capsule 20 MG = 1 Capsule(s) PO Once daily ??? LORazepam (ATIVAN) 1 mg tablet Take 1 tablet by mouth. Take 1 tab after seizure. May repeat up to 4mg in 24 hours 30 tablet 5 ??? diaZEPam (DIASTAT ACUDIAL) 12.5-15-17.5-20 mg Kit 1 Kit(s) 15mg , CO, Once daily,PRN PE: General: pleasant 50 y.o. female, no distress, in wheelchair, cannot participate in visit PAP compliance card reviewed: Dates:12/05/10-06/04/11 Pressure range: 8-16cm 90% IPAP:13.6cm 90% EPAP:11.6cm % days used: 87% Average usage on days used: 6.5 hrs Average residual AHI: 30 Leak: elevated Assessment: Cinthya Brown is a 50 y.o. female seen in follow-up for obstructive sleep apnea. The residual AHI is elevated and the elevation seems to correlate with the increase in the VNS frequency. Unfortunately, we have found that the VNS markedly exacerbates the obstructive apneic events, which are not controllable even with very high level BiPAP pressures. At this point, we discussed that using the BiPAP is really more for quality of life - Cinthya's windows architect does feel that she is more alert when she uses the BiPAP if Cinthya seems to be tolerating it well and without pain from the mask interface, thenI would continue at the current pressure. We cannot fully control the RIA with the VNS and it is more important to keep the seizures under control than the RIA. Diagnostic Codes: 327.23; Obstructive sleep apnea Time spent face to face: 20min Time spent devoted to counseling and discussion: 15min Recommendations: 1. Continue autoBiPAP at current pressure 2. Regular mask change 3. Can try to elevate HOB for sleeping - we can reassess if this helps decrease obstructive events 4. F/U 6 months documented in this encounter Plan of Treatment Upcoming Encounters Date Type Department Care Team (Late st Contact Info) Description 08/06/2024 11:00 AM EST Office [place] [address] Sarah Serra APRN [facility] [place] [address] documented as of this encounter Visit Diagnoses Diagnosis Obstructive sleep apnea (adult) (pediatric)- Primary documented in this encounter Care Teams Fence Laborer Relationship Specialty Start Date End Date Cee Escobar MD [address] [place] [address] PCP - General 06/29/10 06/23/16 documented as of this encounter
--- OUTSIDE RECORDS SUMMARY | 2024-06-28 22:05 | XMS_ITS | Encounter Summary ---
Author Organization [facility] [place] [address] Care Team Providers Care Brokerage Coordinator Name Role Phone Cee Escobar MD Primary Care Provider [phone] Reason for Visit * Reason Onset Date Comments Medication Refill 09/25/2014 Encounter Details Date Type Department Care Team (Late st Contact Info) Description 09/25/2014 [place] [id number] Terri Hsu APRN [facility] [place] [address] Medication Refill Social History Tobacco Use Types [...] Telephone Encounter - Mita Win RN - 09/25/2014 1:00 PM EST Prescription generated for provider review and signature. * Telephone Encounter - Nicole Castellano - 09/25/2014 11:48 AM EST Lulu, patients caregiver, states that she was advised by on-call neurologist to put Cinthya back on depakote, full taper did not work. New instruction are as stated below. Name of Med: depakote (brand name necessary) Strength of Pills:250 mg tablet Dosing Directions: take 1 tablet two times daily 30 or 90 Day: 30 Pharmacy: [facility] Last Appointment:08/27/2014 Next Appointment:10/22/2014 documented in this encounter Plan of Treatment Upcoming Encounters Date Type Department Care Team (Late st Contact Info) Description 08/06/2024 11:00 AM EST [place] [address] Sarah Serra [employer]ODUCE [employer] [facility] [place] [address] documented as of this encounter Visit Diagnoses Not on filedocumented in this encounter Care Teams Brokerage Coordinator Relationship Specialty Start Date End Date Cee Escobar MD [address] [place] [id number] PCP - General 06/29/10 06/23/16 documented as of this encounter
--- OUTSIDE RECORDS SUMMARY | 2024-06-28 22:05 | XMS_ITS | Encounter Summary ---
Author Organization [facility] [place] [address] Care Team Providers Care Court Recorder Name Role Phone Cee Escobar MD Primary Care Provider [phone] Encounter Details Date Type Department Care Team (Late st Contact Info) Description 03/20/2012 4:00 PM EDT Clinical [place] [address] Social History Tobacco Use Types Packs/Day Years [...] 11:00 AM EST [place] [address] Sarah Serra [address]N [facility] [place] [address] documented as of this encounter Visit Diagnoses Not on filedocumented in this encounter Care Teams Court Recorder Relationship Specialty Start Date End Date Cee Escobar MD [address] [place] [address] PCP - General 06/29/10 06/23/16 documented as of this encounter
--- OUTSIDE RECORDS SUMMARY | 2024-06-28 22:05 | XMS_ITS | Encounter Summary ---
Author Organization [facility] [place] [address] Care Team Providers Care Customer Relations Consultant Name Role Phone Cee Escobar MD Primary Care Provider [phone] Encounter Details Date Type Department Care Team (Late st Contact Info) Description 09/18/2014 [place] [address] Terri Hsu APRN [facility] [place] [address] Social History Tobacco Use Types Packs/Day Years [...] Telephone Encounter - Mita Win RN - 09/23/2014 10:21 AM EST Caregiver Lulu Arellano phoned to give update on pt status. She reports that pt is better. Sheis awake and alert. She reports that pt had a jerk on Monday and on Monday she had a seizure at 10:30 that lasted less than a minute. Yesterday she had another jerk and then a very short seizure at3:00 that lasted less then 10 seconds. Today she is better and is awake and alert. She is not shakywhich is typical. Lulu is asking about the depakote. She has been on a taper to come off and this was increased 09/18/14 back to depakote 250 mg BID. She wonders about coming off this. If pt is tostay on the depakote 250 mg bid until Terri comes back she would need a new prescription as she is almost out. Pt also requires brand name. Per office note with Terri Hsu: - Epilepsy: Is doing better in terms of seizures however she is now undergoing a depakote taper. She will continue to taper off 25mg per week. For clusters, she can use diastat if able and if unable, will use midazolam 5mg intranasally. I provided Lulu with atomizers and instruction of giving the medication if needed. Will get a repeat endoscopy about one month after being off of depakote. - Screen for medication toxicity: recent labs done but I am awaiting results - Bone health: currently taking Ca and VIt D - Social and psychiatric issues: lives with her home provider and her family - control/ Women's issues: menopausal - Prescriptions were renewed. - Patient will be seen again by the epilepsy team in 2-3 months. Plan: I will forward to Sarah Serra APRN for review and recommendation. * Telephone Encounter - Mita Win RN - 09/18/2014 5:06 PM EST Sarah Serra APRN reviewed. Per Sarah caregiver instructed not to give the ativan for the twitches only large seizures. If pt has a seizure > 5 min to give diastat. Also if pt has another seizure tonight to call 911. Sarah would also like to have pt increase depakote back to 250 mg bid. Caregiver instructed to call Monday or Monday next week with update sooner prn. Caregiver again inst ructed how to call neurologist solar sales consultant after hours if necessary. Mother agrees with plan and verbalizes understanding. * Telephone Encounter - Mita Win PATT Molina - 09/18/2014 3:40 PM EST Breakthrough Seizure Last Appointment: 08/27/14 Next Appointment: not yet scheduled Learning Needs Assessment Last Reviewed: 08/27/14 Primary Question/ Concern Today: seizure this morning around 6 am ; has had whole body jerks this afternoon which is also her seizure activity. She has given total of 3 mg of ativan today ( can give max of 4 mg in 24 hours). Caregiver states she has never had to give this much ativan. Pt is now out of it and sleeping and not eating/drinking caregiver is concerned. Caregiver also asks if she needs to can she give the 4th ativan. Pt was seen in clinic 08/27/14 and instructions were given to taper of the depakote. Pt is now down to 250 mg once daily and this started yesterday. Caregiver also states that pt used to have seizures during her period. She states has mirena but did start her period on Monday. REPORT ON CURRENT CONCERN: ??? Date and Time of seizure(s): 09/18/14 at 6 am ??? Description of seizure(s) whole body jerking and eyes rolled up off to the side. After she was much quieter than normal. ??? Length of seizure(s): little over a minute ??? Was seizure precipitated by anything: Yes ( ) No ( X ) ??? Any injury from the seizure: No ??? Was this typical seizure activity : Yes (X ) No ( ) If no please explain: ??? When was last seizure(s) prior to today: Monday09/16/14 ??? Recent missed doses of medication: Yes ( ) No ( X ) If yes please explain: ??? Any rescue medications used: Yes ( X ) No ( ) If yes please note what was used and outcome: ativan 1 mg x 3 dose through course of today and is now very out of it per caregiver ??? Are any seizure medications generic: Yes ( ) No ( X ) If yes please note: If yes any recent sandblaster glass change: ??? Last Drug levels: 05/08/13 oxcarbazepine level 27 ??? Current Medications: Outpatient Prescriptions Marked as Taking for the 09/18/14 encounter (Telephone) with Terri Hsu APRN Medication Sig Dispense Refill ??? divalproex (DEPAKOTE) 250 mg Tablet, Delayed Release (E.C.) Take 1 tablet three times daily for1 week then 1 twice daily for 1 week then 1 daily for 3 days then STOP Brand name medically necessary 60 tablet 0 ??? esomeprazole (NEXIUM) 40 mg Capsule, Delayed [...] No ( X ) ??? Any current appetite or eating concerns: Yes ( ) No (X) diet is actually better then it has been ??? Any current pain concerns: Yes ( ) No ( X ) If yes please explain: Rate on scale of 1-10: ??? Any new worries, stressors, or routine changes: Yes ( ) No (X ) ??? Any recent Illness: Yes ( ) No ( X ) ??? Any recent Injuries: Yes ( ) No ( ) ??? Any additional Information to relay to the provider? :Yes ( ) No ( X ) caregiver concerned about being out of it and what to do if she has another seizure Plan/Intervention/Follow Up - Report forwarded to Sarah Serra APRN for review and comment. Pt/caller aware they will be called back with input when available and to call back in the interim if additional questions or change arise before they hear back from this office. Pt/caller agreeable to this plan. Caregiver instructed how to contact provider solar sales consultant after hours if necessary. documented in this encounter Plan of Treatment Upcoming Encounters Date Type Department Care Team (Late st Contact Info) Description 08/06/2024 11:00 AM EST [place] [address] Sarah Serra APRN [facility] [place] [address] documented as of this encounter Visit Diagnoses Not on filedocumented in this encounter Care Teams Customer Relations Consultant Relationship Specialty Start Date End Date Cee Escobar MD [address] [place] [address] PCP - General 06/29/10 06/23/16 documented as of this encounter
--- OUTSIDE RECORDS SUMMARY | 2024-06-28 22:05 | XMS_ITS | Encounter Summary ---
[place] [address] Care Team Providers Care Talent Specialist Name Role Phone Cee Escobar MD Primary Care Provider [phone] Encounter Details Date Type Department Care Team (Latest Contact Info) Description 04/02/2012 1:01 PM EDT - 04/02/2012 9:00 PM EDT Hospital Encounter [place] [id number] Clayton Lopez MD Discharge Disposition: Home Social History Tobacco Use [...] Sign Reading Time Taken Comments Blood Pressure 137/85 04/02/2012 8:25 PM EDT Pulse 84 04/02/2012 8:25 PM EDT Temperature 36.1 ??C (97 ??F) 04/02/2012 7:54 PM EDT Respiratory Rate 20 04/02/2012 8:25 PM EDT Oxygen Saturation 95% 04/02/2012 8:25 PM EDT Inhaled Oxygen Concentration - - Weight 72 kg (158 lb 11.7 oz) 04/02/2012 1:28 PM EDT Height 147.3 cm (4' 10) 04/02/2012 1:28 PM EDT Body Mass Index 33.17 04/02/2012 1:28 PM EDT documented in this encounter Discharge Instructions * Discharge Instructions* Yazmin Wu RN - 04/02/2012 8:14 PM EDT POST ANESTHESIA INSTRUCTIONS Go home, rest, use caution on stairs. Change positions slowly. Do not smoke if you are alone. Diet light to regular as tolerated today. If nausea occurs start with clear liquids and progress slowly. No driving, operating machinery, alcoholic beverages and no important decisions for 24 hours. Monitor IV site for signs and symptoms of infection: increasing redness, swelling, foul drainage, if occurs contact M.D. Patients who have had endotrachial tubes (this tube, used by anesthesia department, is passed down your throat after you are asleep, to ensure safe air passage during your operation). A sore throat is normal due to the tube. Cold liquids or soothing lozenges will help ease the discomfort. The generalized muscle aches are due to the medication given to you just before the tube is inserted. As the medication wears off, you may develop muscle soreness, which usually goes away in 12-24 hours. * Patient Instructions* Lulu Velazquez - 04/02/2012 7:11 PM EDT VNS Discharge Instructions You had the following procedure during this hospitalization: - VNS battery change What to Expect.... The healing process varies with each person. Pain (short term and exterminator helper termite) With any surgery there is some discomfort or pain. We will prescribe medicine for pain, usually a narcotic. You should take the medicine as prescribed and only as needed. Please also take acetaminophen (tylenol) for pain, which is available over the counter. Please DO NOT TAKE aspirin or any non-steroidal anti-inflammatory medication, such as ibuprofen or aleve, until your follow up appointment with neurosurgery. These medications increase your risk for bleeding. We recommend taking an qjps-way-Iqlxkuy stool softener, such as Colace (docusate) or a gentle laxative while taking your narcotic pain reliever. This will help to maintain bowel regularity and prevent straining. Drink plenty of water. You will may have nerve pain after your surgery because the nerve endings have been disturbed. Nerve pain may feel like a burning sensation, itching or a shooting, electric shock pain. This is normaland will get better as you heal. Medications Anticonvulsants (Anti-seizure medication) ?? You are being discharged on your regular home anti-siezure medications. No changes have been made to the doses of these medications. ?? This medication will prevent seizures. Please take the medication as directed. Do not skip a day, even if you feel better. ?? At your follow-up appointment with Neurology, ask how long you need to continue taking this medication. Narcotic Pain Medication: oxycodone ?? DO NOT use alcohol, drive, or operate heavy machinery while taking these medications. These medications may cause constipation. See diet information below. Showering Typically, you may shower 48 hours following your surgery. Do not take a bath or use a hot tub until incisions are completely healed. Incisions/Dressings You may have some red, pink, yellow/clear drainage from your incisions for the first 1-2 weeks. Change dressings as needed. Keep incisional site clean and dry. You can remove your dressing 2 days after surgery. You may shower and shampoo incisional site, per your usual routine 4 days after surgery. Your juan f or sutures should be removed 14 days after surgery. You can return to the [facility]surgery[facility] for removal or have your local Primary Care Provider remove them. See Follow-up appointmentsbelow. Activity (???If it hurts, don???t do it?? ) Please try to walk as much as possible. This will help prevent a DVT (see below). Do not lift more than 3-5 pounds (a gallon of milk). Restrict other strenuous activity (such as running, jumping, jogging, vacuuming, shoveling, etc). You will be advised at your follow-up appointment when you may resume these activities. Driving Restrictions : ?? Do NOT drive until cleared by Neurosurgery. ?? Do NOT drive when you are on narcotic pain medications, OR if pain limits your range of motion or reaction time. ?? Do NOT drive if you have a seizure disorder Diet ?? Eat a well-balanced diet. Fresh fruits, vegetables and fiber-containing foods are recommended. This is necessary for your wound to heal. ?? If you experience constipation (difficulty with hard stools), prune juice or prunes, stool softeners (such as Colace), or mild laxatives, (such as Sennakot or Milk of Magnesia), may be used as needed. These fvms-amh-zsxbkyd (OTC) medications are available at your pharmacy without a prescription.Call the neurosurgery SCREW MACHINE SET UP OPERATOR TOOL plastic parts fabricator if you have questions. Complications Call your doctor with the following signs of infection: a temperature over 100.4 F or 38 C redness at the incision line that spreads away from the incision after the first 48 hours thick yellow, foul smelling drainage increasing pain that is not relieved by your pain medicine Inability to keep fluids down due to nausea or vomiting PLEASE CALL FOR: ?? Worsening headaches not controlled with your pain medication ?? Drowsiness/mental confusion ?? Unsteadiness when walking/new weakness ?? New visual changes ?? Nausea/vomiting not controlled with anti-nausea medication ?? Slurred speech ?? Convulsions/seizures Follow-up Appointments: Future Appointments Date Time Provider Department Center 06/07/2012 1:20 PM [facility] [address] CLIN [x] You will be contacted with a follow-up in Neurosurgery clinic. If you do not hear from us in a timely manner please call [phone] and state that you need to be seen in [address] Lopez. [x] Please follow-up for suture/staple removal in 10-14 days. [] With your Primary Care Provider [x] With the Neurosurgery SCREW MACHINE SET UP OPERATOR TOOL/RN Contact your Doctor Office Hours: Monday through Monday, 8am-5pm. Call . On weekends or after office hours: Call [phone] and ask the wax machine operator to page the NeurourgeryResident net developer consultant. IMPORTANT PHONE NUMBERS: Outpatient Nurse ([place]) Inpatient Nurses Neurosurgical Resident Ibm Mainframe Systems Programmer (after 5pm or before 8am) Neurosurgery offices (between 8am-5pm): Dr. Mayer Dr. Barger (pediatric neurosurgery) Dr. Chung Dr. Lopez Dr. Noe Dr. Cheatham Clayton Fuentes, Physician Magento Developer Juliet Granados, Physician Magento Developer Alondra Joiner, Nurse Practitioner Carlita Elizabeth, Nurse Practitioner * Your surgeon may not be score caller, so be ready to tell about yourself and your surgery when you call, especially after hours or on the weekend. documented in this encounter Medications at Time of Discharge Medication Sig Dispensed Refills Start Date End Date atorvastatin (LIPITOR) 40 mg tablet Take 40 mg by mouth daily. IPRIFLAV/CA CARBONATE/VIT D3 (CALCIUM CARB-VIT D3-IPRIFLAVON ORAL) Take by mouth 3 times daily. 01/06/2016 DEPAKOTE 500 mg EC tabletIndications:Epil epsy seizure, generalized, convulsive Take 1 tablet by mouth 2 times daily. Total dose 1250mg per day 60 tablet PRN 12/07/2011 04/19/2012 DEPAKOTE 250 mg EC tablet Take 1 tablet by mouth daily. 12/07/2011 04/19/2012 LORazepam (ATIVAN) 1 mg tabletIndications:Epil epsy seizure, generalized, convulsive Take 1 tablet by mouth. Take 1 tab after seizure. May repeat up to 4mg in 24 hours 30 tablet 5 12/07/2011 02/02/2015 diaZEPam (DIASTAT ACUDIAL) 12.5-15-17.5-[address] 15 mg rectally as needed. 08/27/2014 TRILEPTAL 300 mg tabletIndications:Epil epsy seizure, generalized, convulsive Take by mouth. 600mg twice daily and 300mg at noon (total 1500mg daily) 150 tablet PRN 05/12/2011 03/06/2013 PHENobarbital (LUMINAL) 30 mg tabletIndications:Epil epsy seizure, generalized, convulsive Take 2 tablets by mouth nightly. 60 tablet 5 05/12/2011 03/06/2013 levoCARNitine (CARNITOR) 330 mg tabletIndications:Epil epsy seizure, generalized, convulsive,High risk medication use Take 1 tablet by mouth 2 times daily. 60 tablet PRN 05/12/2011 03/06/2013 furosemide (LASIX) 40 mg tablet Take 40 mg by mouth daily. 12/06/2010 08/11/2015 ascorbic acid (VITAMIN C) 250 mg tablet Take 250 mg by mouth daily. 03/26/2014 ferrous sulfate 324 mg (65 mg Iron) TbEC Take 324 mg by mouth daily. 03/26/2014 documented as of this encounter Progress Notes * Yazmin Wu RN - 04/02/2012 8:07 PM EDT Returned from OR slightly sedated. Caregivers at bedside. Nasal trumpet removed. Trial on room air Pt tolerating soda and crackers. Ambulated to bathroom with assist of her caregivers to void. IV removed. D/C instructions reviewed with caregivers. documented in this encounter H&P Notes * Lulu Velazquez - 04/02/2012 6:04 PM EDT 24-Hour Pre-Operative H&P Update Cinthya Brown 1960 [id number] Patient seen in pre-op holding area today. There are no clinically significant changes to the patient's maco since the original H&P, dated 03/30/2012. The patient is ready to proceed with the planned surgical procedure today. Lulu Velazquez PGY-2 [id number] documented in this encounter Miscellaneous Notes * OR Attestation - Clayton Lopez - 04/04/2012 6:33 PM EDT Attestation: Case Date: 04/02/2012 I was present and I participated during the entire procedure (does not need to include opening and closing). CLAYTON LOPEZ MD 04/04/2012 * OR Attestation - Clayton Lopez - 04/04/2012 6:33 PM EDT Attestation: Case Date: 04/02/2012 I was present and I participated during the entire procedure (does not need to include opening and closing). CLAYTON LOPEZ MD 04/04/2012 * Miscellaneous - Provider, Scanning - 04/03/2012 6:28 AM EDT * Miscellaneous - Provider, Scanning - 04/03/2012 6:20 AM EDT * Op Note - Edward Marquez - 04/02/2012 12:00 AM EDT CLARIFICATION NEEDED - DOS 04/02/12 Procedure: Replacement of neurostimulator battery. Surgeons: Dr. Clayton Lopez, primary; Dr. Yenifer Sotelo, doreen, and Dr. Edward Marquez, doreen role. Description: The patient is a 51-year-old female with a history of intractable seizures who has been treated with a vagal nerve stimulator. The implanted pulse generator had been found to be depleted secondary to use. The patient was scheduled for replacement of the implanted pulse generator. She was admitted through the Same Day Surgery area. Informed consent was obtained from the patient's guardian, in which the risks of surgery including bleeding, infection, neurologic injury as well as need for replacement of the entire system were discussed. The patient was brought into the operating room and transferred to the operating room table. At that point, general anesthesia was introduced and an LMA area was secured in place by Anesthesia. Following induction of general anesthesia, the patient was positioned appropriately on the operating room table in the supine position with the head supported by a gel donut and rotated towards the right. The prior surgical site was identified and the preexisting generator palpated through the skin. One gram of vancomycin was administered for perioperative prophylaxis per policy. The skin was then cleaned with a Betadine solution per protocol. The skin was then prepped in the standard sterile fashion. No local anesthetic was introduced into the site due to concern for injuring the superficial leads under the skin. A #10 blade scalpel was used to incise the skin, dissecting to the subcutaneous tissue. Following this, the skin edges were then elevated with pickups and the Bovie monopolar electrocautery was used to then dissect through the deeper structures. During this period, the pulse generator was palpated, monitoring its location. The monopolar was used in a pulsatile fashion to avoid thermal injury. Care was taken not to come into direct contact with the battery with the monopolar. The fibrous capsule surrounding the battery was identified and then opened. A bacitracin-soaked Ray-Rosalie pramod was then used to line the skin edges. The Sara was then used to remove the battery from the pocket. The battery was also placed on a bacitracin-soaked Ray-Rosalie to avoid contact with the skin or underlying surgical field. Appropriate single pin battery was then identified and its appropriateness confirmed. The battery was then placed on the operating field. The old pulse generator was removed and the replacement generator was connected to the leads and screwed into place per protocol. The battery and system were then interrogated with the interrogator. At this point, it was confirmed that the impedance measured as 1965 was in an acceptable range. The replacement pulse generator was then inserted into the existing pocket with the lead coiled beneath the battery. The pocket was then copiously irrigated with lactated Ringer's with bacitracin. A 4-0 Prolene was used to anchor the battery to the underlying fibrous tissue. The deep tissues were then closed with interrupted 3-0 Vicryl sutures. Again, the incision was copiously irrigated. Following this, deep dermal sutures were used to approximate the tissue using 3-0 Vicryls. The skin was then closed with a 4-0 Prolene subcuticular suture. No intraoperative complications were observed. Following completion of the surgery, the VNS was reprogrammed according to the patient's prior settings as confirmed in clinic. The site was dressed with bacitracin and 4 x 4 gauze. The patient was awakened from general anesthesia and transported to the Same Day area. documented in this encounter Plan of Treatment Upcoming Encounters Date Type Department Care Team (Late st Contact Info) Description 08/06/2024 11:00 AM EST Office [place] [address] Sarah Serra APRN [facility] [place] [address] documented as of this encounter Procedures Procedure Name Priority Date/Time Associated Diagnosis Comments REVISION/REPLACEMENT OF PULSE GENERATOR (VNS) (WRVU 11) 04/02/2012 6:20 PM EDT Epilepsy documented in this encounter Visit Diagnoses Not on filedocumented in this encounter Administered Medications Inactive Administered Medications - up to 3 most recent administrations Medication Order MAR Action Action Date Dose Rate Site lactated ringers infusion 1,000 mL 1,000 mL, at 100 mL/hr, Intravenous, CONTINUOUS, Starting on Mon04/02/12 at 1500, Until Mon04/02/12 at 2307, Day of Surgery (Day of Procedure) New Bag 04/02/2012 5:29 PM EDT 1,000 mLs 100 mL/hr vancomycin 1 g in sodium chloride 0.9% 250 mL 1,000 mg (1 g), Intravenous, at 166.7 mL/hr, ONCE, 1 dose, On Mon04/02/12 at 1345, This medication may have an associated drug lab level. Please check for lab orders, Day of Surgery (Day of Procedure), Routine, Indication for (Active or Suspected): Prophylaxis Given 04/02/2012 5:30 PM EDT 1,000 mg 166.7 mL/hr documented in this encounter Active and Recently Administered Medications Times are shown in EDT. Scheduled Medication Order 03/31/2012 04/01/2012 04/02/2012 vancomycin 1 g in sodium chloride 0.9% 250 mL (COMPLETED) 1,000 mg (1 g), Intravenous, at 166.7 mL/hr, ONCE, 1 dose, On Mon04/02/12 at 1345, This medication may have an associated drug lab level. Please check for lab orders, Day of Surgery (Day of Procedure), Routine, Indication for (Active or Suspected): Prophylaxis 1345 (Due)1730 (Give n - Provider: Yazmin Wu RN) Continuous Medication Order 03/31/2012 04/01/2012 04/02/2012 lactated ringers infusion 1,000 mL (CANCELED) 1,000 mL, at 100 mL/hr, Intravenous, CONTINUOUS, Starting on Mon04/02/12 at 1500, Until Mon04/02/12 at 2307, Day of Surgery (Day of Procedure) 1500 (Due)1729 (New Bag - Provider: Yazmin Wu RN) PRN Medication Order 03/31/2012 04/01/2012 04/02/2012 bacitracin-polymyxin b (POLYSPORIN) ointment (CANCELED) ONCE PRN, Starting on Mon04/02/12 at 1947, Until Mon04/02/12 at 2307, Intra-Operative (Intra-Procedure) 194 (Given - Provid er: Clayton Lopez) documented in this encounter Care Teams Talent Specialist Relationship Specialty Start Date End Date Cee Escobar MD [address] [place] [address] PCP - General 06/29/10 06/23/16 documented as of this encounter
--- OUTSIDE RECORDS SUMMARY | 2024-06-28 22:05 | XMS_ITS | Encounter Summary ---
Author Organization [facility] [place] [address] Care Team Providers Care Technology Applications Consultant Name Role Phone Luis Manuel Blanca MD Primary Care Provider [phone] Encounter Details Date Type Department Care Team (Late st Contact Info) Description 10/06/2003 Orders [place] [address] Pete Witt MD [facility] [place] [address] Social History Tobacco Use Types Packs/Day Years [...] 11:00 AM EST [place] [address] Sarah Serra APRN [facility] [place] [address] documented as of this encounter Goals Goal [...] Associated Diagnosis Comments SURGICAL PATHOLOGY REPORT Routine 10/06/2003 1:06 PM EST documented in this encounter Results * Surgical Pathology Report (10/06/2003 1:06 PM EST) Surgical Pathology Report [id number] ? Location: [facility]; [facility]; A The signing pathologist has (i) examined the relevant preparation(s) for the specimen(s) and (ii) rendered or confirmed the diagnosis(es). . ?Pathology Surgical Pathology Final Report Clinical Information Specimen Submitted: A - Gallbladder. abdomen. Clinical History: Cholelithiasis. Gross Description Labeled/Fixative: ? Gallbladder, fresh. Qty/Size/Weight: ?Single, 11.2 x 3.1 x 2.3 cm. Tissue Description: ?? External surface: ??Smooth, glistening, dusky, pink-servin. ?? Lumen contents: ?Viscous, brown bile. ??A single, 1.3-cm, ovoid, ?dark green-black calculus is present, . ?? Mucosa: ?Granular, red-brown. ?? Wall: ?Intact, averaging 0.2 cm in thickness. ?? Duct: ?Patent. Sections/Processi ng: ??(R1) ??aje/PPS Microscopic Description Slides reviewed, microscopic description not recorded. Diagnosis Gallbladder, cholecystectomy: ??Chronic cholecystitis and cholelithiasis. CR-0 10/07/03 [facility] 10/07/03 Verified by: ? Luis Angel Monroy MD, PhD ?Pathologist ?(Electronic Signature) The attending pathologist whose signature appears on this report has reviewed all diagnostic slides and has edited the gross and/or microscopic portion of the report in rendering the final pathologic diagnosis. [facility] 10/06/2003 1:06 PM EST Pete Witt MD PATHOLOGY/CYTOLOGY O RDERABLES [facility] documented in this encounter Visit Diagnoses Not on filedocumented in this encounter Care Teams Technology Applications Consultant Relationship Specialty Start Date End Date Luis Manuel Blanca MD [address] [place] [address] PCP - General Family Medicine 06/24/16 documented as of this encounter
--- OUTSIDE RECORDS SUMMARY | 2024-06-28 22:05 | XMS_ITS | Encounter Summary ---
Author Organization [facility] [place] [place] [address] Care Team Providers Care Energy Conservation Technician Name Role Phone Cee Escobar MD Primary Care Provider [phone] Encounter Details Date Type Department Care Team (Latest Contact Info) Description 03/20/2012 4:19 PM EDT - 03/20/2012 11:59 PM EDT Hospital [place] [phone] Ethan Dye MD Pre-op exam Discharge Disposition: Home Social History Tobacco Use [...] daily. 03/26/2014 documented as of this encounter Plan of Treatment Upcoming Encounters Date Type Department Care Team (Late st Contact Info) Description 08/06/2024 11:00 AM EST [place] [address] Sarah Serra, [facility] [place] [address] documented as of this encounter Procedures Procedure Name Priority Date/Time Associated Diagnosis Comments PROTHROMBIN TIME Routine 03/20/2012 4:38 PM EDT Pre-op exam documented in this encounter Results * Prothrombin Time (03/20/2012 4:38 PM EDT) Prothrombin Time 13.0 11.9 - 14.7 sec IMELDA SARIKADONTEIUM Comment: [facility] Transfusion Committee Guidelines: INR less than 2.0, PTT less than OR equal to 43.5 seconds, or Fibrinogen greater than or equal to 100 mg/dl indicate adequate procoagulant activity for hemostasis in patients without underlying bleeding disorders. International Normalization Ratio 1.0 0.9 - 1.1 IMELDA VICK Blood specimen (specimen) 03/20/2012 4:38 PM EDT 03/20/2012 4:46 PM EDT Narrative Resulting Agency Comment Spec In Lab Ethan Dye MD HEMATOLOGY ORDERABLE S [facility] documented in this encounter Visit Diagnoses Diagnosis Pre-op exam Preoperative examination, unspecified documented in this encounter Care Teams Energy Conservation Technician Relationship Specialty Start Date End Date Cee Escobar MD [address] [place] [address] PCP - General 06/29/10 06/23/16 documented as of this encounter
--- OUTSIDE RECORDS SUMMARY | 2024-06-28 22:05 | XMS_ITS | Encounter Summary ---
[place] [address] Care Team Providers Care Refinery Operator Helper Crude Unit Name Role Phone Cee Escobar MD Primary Care Provider [phone] Encounter Details Date Type Department Care Team (Late st Contact Info) Description 04/02/2012 6:25 PM EDT Anesthesia Event [place] [id number] Angi Monge MD [facility] [place] [address] Gisselle Shafer CRNA [facility] [place] [address] Anesthesia Record Procedure Summary Procedure Name Responsible Anesthesiologist Anesthesia Start Time Anesthesia Stop Time REVISION/REPLACEMEN T OF PULSE GENERATOR (VNS) (WRVU 11) (Left: Chest) Angi Monge MD 04/02/12 1825 04/02/121999 Events Date Time Event Comment 04/02/2012 1436 1825 Start 1999 Stop Meds * Agents No agents on file. * Blood No blood administrations on file. Lines, Drains, and Airways Type Details Placement Removal (RETIRED) Peripheral IV Line - Single Lumen 04/02/12; 1338; 04/02/12; 204904/02/12 1338 by Juany Bal RN 04/02/122049 by Yazmin Quintero RN Incision 04/02/12; 185; chest; 11/24/14; 1414 04/02/121850 by Pete Donovan RN 11/24/14 141 by Jamaica Shabazz RN documented in this encounter Social History Tobacco [...] OR Notes * Anesthesia Postprocedure Evaluation - Angi Monge MD - 04/02/2012 9:31 PM EDT Patient: Cinthya Brown Procedure(s) Performed: Procedure(s): REVISION/REPLACEMENT OF PULSE GENERATOR (VNS) Patient location: PACU Post-op pain: Adequate analgesia Post-op nausea: no nausea or vomiting Last Vitals: Filed Vitals: 04/02/122024 BP: 137/85 Pulse: 84 Temp: Resp: 20 Post-op cardiovascular and respiratory status: is stable Level of consciousness: awake Complications: no apparent complications, tolerated the procedure well and no evidence of recall Fluid Status: normal * Anesthesia Preprocedure Evaluation - Merlin Yan MD - 04/02/2012 2:22 PM EDT Images from the original note were not included. Anesthesia Evaluation Patient summary reviewed and Nursing notes reviewed Hx of anesthetic complications (episode of laryngospasm after lap rachel) Airway Mallampati: III TM distance: >3 FB Dental Pulmonary (+) sleep apnea CPAP, Cardiovascular Neuro/Psych (+) seizures poorly controlled, psychiatric history (sever developmental delay) GI/Hepatic/Renal (-) GERD Endo/Other Abdominal (+) obesity, Anesthesia Plan ASA 3 General with intravenous induction Consent previously obtained from carmen as part of surgical consent. I think GA will be in this patient's best interest. Anesthetic plan and risks discussed with mother. Plan discussed with CHAINSAW MECHANIC. documented in this encounter Miscellaneous Notes * Addendum Note - Yazmin Tee - 04/03/2012 10:48 AM EDT Addendum created 04/03/12 1048 by Yazmin Tee Modules edited:Anesthesia Events, Anesthesia Responsible Staff documented in this encounter Plan of Treatment Upcoming Encounters Date Type Department Care Team (Late st Contact Info) Description 08/06/2024 11:00 AM EST [place] [address] [facility] [place] [place] [address] documented as of this encounter Visit Diagnoses Not on filedocumented in this encounter Care Teams Refinery Operator Helper Crude Unit Relationship Specialty Start Date End Date Cee Escobar MD [address] [place] [address] PCP - General 06/29/10 06/23/16 documented as of this encounter
--- OUTSIDE RECORDS SUMMARY | 2024-06-28 22:05 | XMS_ITS | Encounter Summary ---
[place] [address] Care Team Providers Care Metal Lather Name Role Phone Cee Escobar MD Primary Care Provider [phone] Reason for Visit * Reason Comments Obstructive Sleep Apnea Encounter Details Date Type Department Care Team (Late st Contact Info) Description 12/06/2010 1:10 PM EDT Office Visit Sleep Medicine [place] [id number] Samia Vega MD [facility] [place] [address] Obstructive sleep apnea (adult) (pediatric) (Primary Dx) [...] as of this encounter Progress Notes * Samia Vega MD - 12/06/2010 2:03 PM EDT Sleep Medicine Follow-Up Note HPI: Cinthya Brown is a 50 y.o. female seen for follow-up of obstructive sleep apnea. She was last seen in 06/16 - at that time we did not make any changes to the autoBiPAP, but she wasrefit for a new FFM. Initially it fit well, but then her klystrom tube tester took it apart to clean it and now can't get it back correctly. Now leaving yoder on her face. More leak problems, more difficult to fit. Has not been replaced since obtained in June. Continues to wear the BiPAP most of the time, although may be found with it pushed off of her face.Home Health Lvn not sure how long it has been off. On 2 occasions has been noted to be gasping. Doesn't snore with BiPAP in place. Sleeps soundly at night. Naps almost every day around 1 hour. Otherwise able to stay awake and not fall asleep unintentionally. ROS: CON: weight change: stable CV: increased ankle edema past 6-8 weeks : nocturia: incontinent - has diaper PSYCH: depression/anxiety symptoms: not noted NEURO: still having seizures Past Medical History: Patient Active Problem List Diagnoses Code ??? Epilepsy 345.90A ??? Sleep apnea 780.57C ??? Mental retardation 319R Medications: Outpatient prescriptions marked as taking for the 12/06/10 encounter (Office Visit) with SAMIA VEGA Medication Sig Dispense Refill ??? atorvastatin (LIPITOR) 40 mg tablet Take 40 mg by mouth daily. ??? furosemide (LASIX) 40 mg tablet Take 40 mg by mouth daily. ??? ascorbic acid (VITAMIN C) 250 mg tablet Take 250 mg by mouth daily. ??? ferrous sulfate 324 mg (65 mg Iron) TbEC Take 324 mg by mouth. ??? levoCARNitine (CARNITOR) 330 mg tablet Take 1 tablet by mouth 2 times daily. 60 tablet PRN ??? PHENobarbital (LUMINAL) 30 mg tablet Take 2 tablets by mouth nightly. 60 tablet 5 ??? divalproex (DEPAKOTE) 500 mg EC tablet 500 mg , PO, Three times daily ??? LORazepam (ATIVAN) 1 mg tablet 1 mg-4MG, PO, PRN AFTER SEIZURE ??? acetaminophen (TYLENOL) 325 mg tablet ??? OXcarbazepine (TRILEPTAL) 300 mg tablet Variable by Time of Day, PO ??? omeprazole (PRILOSEC) 20 mg capsule 20 MG = 1 Capsule(s) PO Once daily ??? diaZEPam (DIASTAT ACUDIAL) 12.5-15-17.5-20 mg Kit 1 Kit(s) 15mg , KS, Once daily,PRN PE: General: pleasant 50 y.o. female, in wheelchair accompanied by klystrom tube tester, no distress PAP compliance card reviewed: Dates:06/06/10-12/05/10 Pressure: autoBiPAP; 90% IPAP 13.5, 90% EPAP 11.4 % days used: 88% Average usage on days used: 7.75hrs Average residual AHI: 18 Leak: elevated Assessment: Cinthya Brown is a 50 y.o. female seen in follow-up for obstructive sleep apnea. She continues to have evidence of ongoing RIA, although as previously discussed this is unlikely to improve with the vagal nerve stimulator in place. At this point, we are focusing on making sure that the mask interface is optimized. It appeared as though she initially did well with the mask refit, but the mask is again not fitting correctly and leak is high. Unfortunately, her care provider did not bring the maskbut she will describe it to the [place] investment representative and hopefully this can be replaced. Diagnostic Codes: 327.23; Obstructive sleep apnea Time spent face to face: 20min Time spent devoted to counseling and discussion: 15min Recommendations: 1. Continue autoBiPAP at current pressure range 2. Mask replacement today; rec'd replacing mask q3mo 3. F/U 6 mo documented in this encounter Plan of Treatment Upcoming Encounters Date Type Department Care Team (Late st Contact Info) Description 08/06/2024 11:00 AM EST [place] [address] Sarah Serra APRN [facility] [place] [address] documented as of this encounter Visit Diagnoses Diagnosis Obstructive sleep apnea (adult) (pediatric)- Primary documented in this encounter Care Teams Metal Lather Relationship Specialty Start Date End Date Cee Escobar MD [address] [place] [address] PCP - General 06/29/10 06/23/16 documented as of this encounter
--- OUTSIDE RECORDS SUMMARY | 2024-06-28 22:05 | XMS_ITS | Encounter Summary ---
Author Organization [facility] [place] [address] Care Team Providers Care Legal Records Manager Name Role Phone Cee Escobar MD Primary Care Provider [phone] Encounter Details Date Type Department Care Team (Late st Contact Info) Description 03/26/2014 3:15 PM EDT [place] [address] Terri Hsu APRN [facility] [place] [address] Epilepsy (Primary Dx); Developmental delay Discharge Disposition: Home Social History Tobacco Use [...] Sign Reading Time Taken Comments Blood Pressure 130/67 03/26/2014 3:21 PM EDT Pulse 93 03/26/2014 3:21 PM EDT Temperature - - Respiratory Rate - - Oxygen Saturation - - Inhaled Oxygen Concentration - - Weight 75.4 kg (166 lb 3.2 oz) 03/26/2014 3:21 P M EDT Height 147.3 cm (4' 10) 03/26/2014 3:21 PM EDT Body Mass Index 34.74 03/26/2014 3:21 PM EDT documented in this encounter Progress Notes * Terri Hsu, FLAGSETTER - 03/26/2014 4:23 PM EDT Subjective: [facility] OUTPATIENT FOLLOW UP NOTE Patient Active Problem List Diagnosis ??? Epilepsy ??? Sleep apnea ??? Mental retardation I saw Cinthya Brown today for a scheduled follow-up evaluation. Patient came to the office Interval history (seizure type and frequency): The patient has had an eventful year. She had done fairly well with seizures over the past year up until February when she had an increase in seizures. She also has had frequent vomiting and pain in her abdomen since last December when she had an episode of mononucleosis. The vomiting continued to occur butworsened in February along with the seizures. Her omeprazole was increased which helped briefly. She then had an upper endoscopy which showed some lesions in her stomach and duodenum as well as increasedinflammation in the stomach. She is awaiting the pathology. She also had an h. pylori test. Seizures have been a little better this month. She does not eat and drink much however due to the abdominal discomfort. Social History: History Social History ??? Marital Status: Single Spouse Name: N/A Number of Children: N/A ??? Years of Education: N/A Occupational History ??? Not on file. Social History Main Topics ??? Smoking status: Never Smoker ??? Smokeless tobacco: Never Used ??? Alcohol Use: No ??? Drug Use: No ??? Sexually Active: Not on file Comment: deferred Other Topics Concern ??? Not on file Social History Narrative ??? No narrative on file Seizure Control: QEpilepsy 03/26/2014 Last seizure was: Within past month Number of seizures in past month: 1 Were seizures disabling? Yes Social Factors: QEPILEPSY SOCIAL FACTORS 03/26/2014 Employment status: No Currently driving: No Considering No Review of Systems: Review of systems 03/26/2014 1. double vision - 2. headache - 3. rash - 4. unsteadiness Often 5. upset stomach, nausea, vomiting Often 6. troubles with gums or teeth Never 7. weight loss or gain Never 8. tremors or shaking Often 9. restlessness Sometimes 10. dizziness - 11. tiredness/sleepiness Often 12. trouble sleeping Never 13. difficulties concentrating - 14. feelings of aggression Never 15. depression - 16. thoughts about ending your life - 17. palpitations or chest pains - 18. bladder problems Sometimes 19. breathing problems - Memory and concentration symptoms (QOLIE-31) QEPILEPSY QOLIE31 03/26/2014 Memory problems - Difficulty reasoning and solving problems - Trouble remembering things people tell - Trouble concentrating on reading - Trouble concentrating on doing one thing at a time None of the time How much do your memory difficulties bother you? 1 - Not at all bothersome QOLIE-31 Incomplete Depression Score (NDDI-E) QEPILEPSY DEPRESSION SCORE 03/26/2014 Depression Score Incomplete Quality of Life QEPILEPSY QOL 07/25/2012 Quality of Life (10-Best Quality of Life; 0-Worst Quality of Life) 8 Past Medical History Diagnosis Date ??? Seizures ??? Hyperlipidemia ??? RIA (obstructive sleep apnea) ??? MR (mental retardation) Current Outpatient Prescriptions on File Prior to Visit Medication Sig Dispense Refill ??? DEPAKOTE 500 [...] mg capsule Take 20 mg by mouth 2 times daily. ??? atorvastatin (LIPITOR) 40 mg tablet Take 40 mg by mouth daily. ??? furosemide (LASIX) 40 mg tablet Take 20 mg by mouth daily. ??? diaZEPam (DIASTAT ACUDIAL) 12.5-15-17.5-[address] 15 mg rectally as needed. Allergies Allergen Reactions ??? Amoxicillin-Pot Clavulanate Rash ??? Risedronate Sodium Nausea And Vomiting Objective: Blood pressure 130/67, pulse 93, height 147.3 cm (4' 10), weight 75.388 kg (166 lb 3.2 oz). Awake,alert, Skin: She has an odd type rash [...] On time:21 sec Off time:1.8 min Magnet current:2.00 milliamps Pulse Width:500 microseconds Assessment and Plan: - Epilepsy: Had a brief worsening in seizures but starting to do better. Will hold off on med changes until we see the results of the stomach biopsy - Screen for medication toxicity: recent labs done but I am awaiting results - Bone health: currently taking Ca and VIt D - Social and psychiatric issues: lives with her home provider and her family - control/ Women's issues: menopausal - Prescriptions were renewed. - Patient will be seen again by the epilepsy team in 3-4 months. documented in this encounter Plan of Treatment Upcoming Encounters Date Type Department Care Team (Late st Contact Info) Description 08/06/2024 11:00 AM EST Office [place] [address] Sarah Serra APRN [facility] [place] [address] documented as of this encounter Visit Diagnoses Diagnosis Epilepsy- Primary Unspecified epilepsy without mention of intractable epilepsy Developmental delay Lack of normal physiological development, unspecified documented in this encounter Care Teams Legal Records Manager Relationship Specialty Start Date End Date Cee Escobar MD [address] [place] [address] PCP - General 06/29/10 06/23/16 documented as of this encounter
--- OUTSIDE RECORDS SUMMARY | 2024-06-28 22:05 | XMS_ITS | Encounter Summary ---
Author Organization [facility] [place] [address] Care Team Providers Care Poiser Name Role Phone Cee Escobar MD Primary Care Provider [phone] Encounter Details Date Type Department Care Team (Late st Contact Info) Description 10/22/2014 4:00 PM EDT Office [place] [address] Terri Hsu APRN [facility] [place] [address] Ackley-Gastaut syndrome, intractable, without status epilepticus Discharge Disposition: [...] Sign Reading Time Taken Comments Blood Pressure 139/75 10/22/2014 3:58 PM EDT Pulse 101 10/22/2014 3:58 PM EDT Temperature - - Respiratory Rate - - Oxygen Saturation - - Inhaled Oxygen Concentration - - Weight 72.6 kg (160 lb) 10/22/2014 3:58 PM EDT Height 147.3 cm (4' 10) 10/22/2014 3:58 PM EDT Body Mass Index 33.44 10/22/2014 3:58 PM EDT documented in this encounter Progress Notes * Terri Hsu, MASTIC FLOOR LAYER - 10/22/2014 5:00 PM EDT Subjective: [facility] OUTPATIENT FOLLOW UP NOTE Patient Active Problem List Diagnosis ??? Epilepsy ??? Sleep apnea ??? Mental retardation I saw Cinthya Brown today for a scheduled follow-up evaluation. Patient came to the office with her home providers Interval history (seizure type and frequency): At her last visit, we attempted a depakote taper as she had been having some intractable gastritis.It was felt that depakote was causing this and her PCP and GI providers wanted to get an endoscopy one month after coming off of depakote. Unfortunately, she has been unable to get completely off. After going down to 250mg per day, she starting having more seizures which were occuring in clusters and very difficult to stop. She was put back up to 250mg BID and her trileptal was increased as well.Since that time she is having less seizures but is having intermittent nausea/vomiting again. Lorazepam was not very helpful in controlling her clusters and Lulu was afraid to try the midazolam at first but is willing to try it if this happens again. Social History: History Social History ??? Marital [...] mg by mouth 2 times daily. ??? PHENobarbital (LUMINAL) 30 mg tablet Take [...] Take 40 mg by mouth daily. ??? midazolam, PF, (VERSED) 5 mg/mL Solution 1 mL by Nasal route daily as needed (give 1 ml via atomizer for cluster of seizures). 2 mL 3 ??? diaZEPam (DIASTAT ACUDIAL) 12.5-15-17.5-[address] 15 mg rectally as needed (1 syringe forcluster of seizures). 1 kit 3 No current facility-administered medications on file prior to visit. Allergies Allergen Reactions ??? Amoxicillin-Pot Clavulanate Rash ??? Risedronate Sodium Nausea And Vomiting Objective: Blood pressure 139/75, pulse 101, height 147.3 cm (4' 10), weight 72.576 [...] with the depakote taper as an outpatient. Will need to bring her in to the hospital to complete this taper. Will get a repeat endoscopy about one month after being off of depakote. If she continues to have problems tolerating the trileptal, we could consider Aptiom as a replacement when she is an inpatient. This may be better tolerated. - Screen for medication toxicity: recent labs done by the PCP but these will be rechecked when she is an inpatient - Bone health: currently taking Ca and VIt D - Social and psychiatric issues: lives with her home provider and her family - control/ Women's issues: menopausal - Prescriptions were renewed. - Patient will be seen again by the epilepsy team as an inpatient. 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
--- OUTSIDE RECORDS SUMMARY | 2024-06-28 22:05 | XMS_ITS | Encounter Summary ---
[place] [address] Care Team Providers Care Watch Parts Grinder Name Role Phone Cee Escobar MD Primary Care Provider [phone] Encounter Details Date Type Department Care Team (Late st Contact Info) Description 04/18/2012 [place] [address] Jelly Lake RN Social History Tobacco Use Types Packs/Day [...] 11:00 AM EST Office [place] [address] Sarah Serra APRN [facility] [place] [address] documented as of this encounter Visit Diagnoses Not on filedocumented in this encounter Care Teams Watch Parts Grinder Relationship Specialty Start Date End Date Cee Escobar MD [address] [place] [address] PCP - General 06/29/10 06/23/16 documented as of this encounter
--- OUTSIDE RECORDS SUMMARY | 2024-06-28 22:05 | XMS_ITS | Encounter Summary ---
Author Organization [facility] [place] [address] Care Team Providers Care Steam Oven Operator Name Role Phone Cee Escobar MD Primary Care Provider [phone] Encounter Details Date Type Department Care Team (Late st Contact Info) Description 08/27/2014 2:45 PM EST Follow-[place] [address] Terri Hsu APRN [facility] [place] [address] Epilepsy seizure, generalized, convulsive Discharge Disposition: Home [...] Sign Reading Time Taken Comments Blood Pressure 119/61 08/27/2014 2:55 PM EST Pulse 85 08/27/2014 2:55 PM EST Temperature - - Respiratory Rate - - Oxygen Saturation - - Inhaled Oxygen Concentration - - Weight 72.6 kg (160 lb) 08/27/2014 2:55 PM EST p er caregiver Height 147.3 cm (4' 10) 08/27/2014 2:55 PM EST Body Mass Index 33.44 08/27/2014 2:55 PM EST documented in this encounter Progress Notes * Terri Hsu, BOAT PULLER - 08/27/2014 3:58 PM EST Subjective: [facility] OUTPATIENT FOLLOW UP NOTE Patient Active Problem List Diagnosis ??? Epilepsy ??? Sleep apnea ??? Mental retardation I saw Cinthya Brown today for a scheduled follow-up evaluation. Patient came to the office with her home providers Interval history (seizure type and frequency): The patient has done very well regarding seizures since the last visit. Unfortunately, she has developed significant gastritis and was quite sick with it. She had frequent vomiting, belching and pain. She had an endoscopy which showed gastritis. She then started a H2 jewels and continued to have problems. She had another endoscopy which showed no improvement. She had not been wanting to drink and her appetite also was affected. Her PCP called and we elected to start tapering Depakote. She dropped 500mg one week ago. She is already starting to feel better. She has started taking more fluids by mouth and eating better. Her home provider thinks she is overall happier. Thankfully no seizures have occurred. Lulu is very concerned because she had increased seizures when depakote was lowered in the past. She is tolerating the VNS well. Social History: History Social History ??? Marital [...] Sig Dispense Refill ??? DEPAKOTE 500 mg Tablet, Delayed Release (E.C.) Take 1 [...] Sodium Nausea And Vomiting Objective: Blood pressure 119/61, pulse 85, height 147.3 cm (4' 10), weight 72.576 kg (160 lb). Awake, alert Skin: She has an odd type rash [...] Width:500 microseconds Assessment and Plan: - Epilepsy: Is doing better in terms of seizures however she is now undergoing a depakote taper. She will continue to taper off 25mg per week. For clusters, she can use diastat if able and if unable,will use midazolam 5mg intranasally. I provided Lulu [...] by the epilepsy team in 2-3 months. documented in this encounter Plan of Treatment Upcoming Encounters Date Type Department Care Team (Late st Contact Info) Description 08/06/2024 11:00 AM EST Office Visit [place] [address] Sarah Serra APRN [facility] [place] [address] documented as of this encounter Visit Diagnoses Diagnosis Epilepsy seizure, generalized, convulsive Generalized convulsive epilepsy without mention of intractable epilepsy documented in this encounter Care Teams Steam Oven Operator Relationship Specialty Start Date End Date Cee Escobar MD [address] [place] [address] PCP - General 06/29/10 06/23/16 documented as of this encounter
--- OUTSIDE RECORDS SUMMARY | 2024-06-28 22:05 | XMS_ITS | Encounter Summary ---
Author Organization [facility] [place] [address] Care Team Providers Care Charge Attendant Name Role Phone Cee Escobar MD Primary Care Provider [phone] Encounter Details Date Type Department Care Team (Late st Contact Info) Description 11/18/2011 [place] [address] Terri Hsu [facility] [place] [address] Social History Tobacco Use Types Packs/Day Years [...] 11:00 AM EST [place] [address] Sarah Serra [facility] [place] [address] documented as of this encounter Visit Diagnoses Not on filedocumented in this encounter Care Teams Charge Attendant Relationship Specialty Start Date End Date Cee Escobar MD [address] [place] [address] PCP - General 06/29/10 06/23/16 documented as of this encounter
--- OUTSIDE RECORDS SUMMARY | 2024-06-28 22:05 | XMS_ITS | Encounter Summary ---
Author Organization [facility] [place] [address] Care Team Providers Care Senior Qa Engineer Name Role Phone Cee Escobar MD Primary Care Provider [phone] Encounter Details Date Type Department Care Team (Late st Contact Info) Description 12/07/2011 12:45 PM EDT [place] [address] Gray Hamilton APRN [facility] [place] [address] Epilepsy seizure, generalized, convulsive (Primary Dx); High [...] Sign Reading Time Taken Comments Blood Pressure 135/71 12/07/2011 12:28 PM EDT Pulse 91 12/07/2011 12:28 PM EDT Temperature - - Respiratory Rate - - Oxygen Saturation - - Inhaled Oxygen Concentration - - Weight 72.6 kg (160 lb) 12/07/2011 12:28 PM EDT Height 147.3 cm (4' 10) 12/07/2011 12:28 PM EDT Body Mass Index 33.44 12/07/2011 12:28 PM EDT documented in this encounter Progress Notes * Gray Hamilton, STAFF REPORTER - 12/09/2011 4:28 PM EDT HPI: Cinthya is seen for a 6 month follow up. She had been doing much better since increasing the duty cycle of the VNS. Unfortunately, she had an upper respiratory infection in late September and she has had some additional seizures since then. She is having several seizures per month that last abouta minute. They do have a short recovery phase. She also has occasional myoclonic twitches but thoseare instantaneous. Review of systems: Occasional nausea. Intermittent tremors. Occasional trouble sleeping. Outpatient prescriptions marked as taking for the 12/07/11 encounter (Follow-Up) with GRAY HAMILTON Medication Sig Dispense Refill ??? IPRIFLAV/CA CARBONATE/VIT D3 (CALCIUM CARB-VIT D3-IPRIFLAVON ORAL) Take by mouth 3 times daily. ??? DEPAKOTE 500 mg EC tablet Take 1 tablet by mouth 2 times daily. Total dose 1250mg per day 60 tablet PRN ??? LORazepam (ATIVAN) 1 mg tablet Take 1 tablet by mouth. Take 1 tab after seizure. May repeat up to 4mg in 24 hours 30 tablet 5 ??? omeprazole (PRILOSEC) 20 mg capsule Take 20 mg by mouth daily. ??? acetaminophen (TYLENOL) 325 mg tablet Take 650 mg by mouth every 4 hours as needed. ??? diaZEPam (DIASTAT ACUDIAL) 12.5-15-17.5-[address] 15 mg rectally as needed. ??? TRILEPTAL 300 mg tablet Take by [...] Iron) TbEC Take 324 mg by mouth. Physical Exam Blood pressure 135/71, pulse 91, height 147.3 cm (4' 10), weight 72.576 kg (160 lb). Skin: Rash noted. She has an odd type rash on her arms and face which she has had for a long time. It is redness under the skin. No raised areas nor itching associated with it. Her skin is very dry. Neurologic Exam: alert Able to say brief words on occasion. She repeats words often. Sitting in wheelchair. She was more interactive today than I have seen her in the past. VNS parameters: Output current: 1.75 milliamps Signal frequency: 25 Hertz Pulse Width:500 microseconds On time:14 sec Off time:1.1 min Magnet current:2.25 milliamps I did a lead test and normal mode test with a DC code of 2 and 3 respectively. Impression/Plan: Cinthya is doing well. I renewed her medications. Her VNS battery is still functioning. The device is now over 10 years old. She will return in 6 months for another battery assessment.I am not making any changes. documented in this encounter Plan of Treatment Upcoming Encounters Date Type Department Care Team (Late st Contact Info) Description 08/06/2024 11:00 AM EST [place] [address] Sarah Serra APRN [facility] [place] [address] documented as of this encounter Visit Diagnoses Diagnosis Epilepsy seizure, generalized, convulsive- Primary Generalized convulsive epilepsy without mention of intractable epilepsy High risk medication use Encounter for long-term (current) use of other medications documented in this encounter Care Teams Senior Qa Engineer Relationship Specialty Start Date End Date Cee Escobar MD [address] [place] [address] PCP - General 06/29/10 06/23/16 documented as of this encounter
--- OUTSIDE RECORDS SUMMARY | 2024-06-28 22:05 | XMS_ITS | Encounter Summary ---
Author Organization [facility] [place] [address] Care Team Providers Care Social Media Intern Name Role Phone Cee Escobar MD Primary Care Provider [phone] Encounter Details Date Type Department Care Team (Late st Contact Info) Description 07/25/2012 2:45 PM EST Office [place] [address] Terri Hsu APRN [facility] [place] [address] Epilepsy seizure, generalized, convulsive; High risk medication [...] Sign Reading Time Taken Comments Blood Pressure 116/75 07/25/2012 2:40 PM EST Pulse 90 07/25/2012 2:40 PM EST Temperature - - Respiratory Rate - - Oxygen Saturation - - Inhaled Oxygen Concentration - - Weight 73.2 kg (161 lb 4.8 oz) 07/25/2012 2:40 PM EST Reported by caregiver Height 141 cm (4' 7.5) 07/25/2012 2:40 PM EST Body Mass Index 36.82 07/25/2012 2:40 PM EST documented in this encounter Patient Instructions * Patient Instructions* Terri Hsu APRN - 07/25/2012 3:50 PM EST Please have labs drawn with her routine PCP lab orders in November or December She is doing well. Will keep VNS parameters the same. Please tape magnet over VNS for her upcoming surgical procedure. You can removed the magnet when the procedure is over and the stimulator will resume its normal cycle. documented in this encounter Progress Notes * Terri Hsu APRN - 07/25/2012 5:25 PM EST HPI: Cinthya is seen for a follow up visit. She was accompanied by her home provider. She is doing much better since having the 250mg of depakote added back. She is averaging about 2 seizures per monthwhich represents good control. Her moods and behavior have been good as well. She has some problemswith sleep apnea but does better when she uses her mask consistently. Seizure Control: QEpilepsy 07/25/2012 Last seizure was: - Number of seizures in past month: 2 Were seizures disabling? Yes Social Factors: Social Factors 07/25/2012 Employment status: No Currently driving: No Considering No Review of Systems: Review of systems 07/25/2012 1. double vision Never 2. headache Never 3. rash Never 4. unsteadiness Never 5. upset stomach, nausea, vomiting Never 6. troubles with gums or teeth Sometimes 7. weight loss or gain Never 8. tremors or shaking Often 9. restlessness Rarely 10. dizziness Rarely 11. tiredness/sleepiness Sometimes 12. trouble sleeping Rarely 13. difficulties concentrating Never 14. feelings of aggression Never 15. depression Never 16. thoughts about ending your life Never 17. palpitations or chest pains Never 18. bladder problems Sometimes 19. breathing problems Never Memory and concentration symptoms (QOLIE-31) Memory and concentration symptoms (QOLIE-31) 07/25/2012 QOLIE-31 8.33 (low scores suggest severe memory symptoms) Depression Score (NDDI-E) Depression Score (NDDI-E) 07/25/2012 Depression Score 6 (scores >15 suggest MDD) Quality of Life Quality of Life 07/25/2012 Quality of Life 8 Outpatient Prescriptions Marked as Taking for the 07/25/12 encounter (Office Visit) with Terri Hsu APRN Medication Sig Dispense Refill ??? DEPAKOTE 500 mg EC tablet Take 1 tablet by mouth 3 times daily. Total dose 1500mg per day. 90 tablet PRN ??? IPRIFLAV/CA CARBONATE/VIT D3 (CALCIUM [...] by mouth daily. Physical Exam Blood pressure 116/75, pulse 90, height 141 cm (4' 7.5), weight 73.165 kg (161 lb 4.8 oz). Skin: She has an odd type rash [...] is doing much better in terms of seizures. She is tolerating the VNS settings well. I did not make any changes in the settings. I encouraged her to wear her CPAP mask but her home provider is doubtful that she will. She will return in 6 months for follow up. documented in this encounter Plan of Treatment Upcoming Encounters Date Type Department Care Team (Late st Contact Info) Description 08/06/2024 11:00 AM EST Office [place] [address] Sarah Serra APRN [facility] [place] [address] documented as of this encounter Visit Diagnoses Diagnosis Epilepsy seizure, generalized, convulsive Generalized convulsive epilepsy without mention of intractable epilepsy High risk medication use Encounter for long-term (current) use of other medications documented in this encounter Care Teams Social Media Intern Relationship Specialty Start Date End Date Cee Escobar MD [address] [place] [address] PCP - General 06/29/10 06/23/16 documented as of this encounter
--- OUTSIDE RECORDS SUMMARY | 2024-06-28 22:05 | XMS_ITS | Encounter Summary ---
[place] [address] Care Team Providers Care Peanut Vendor Name Role Phone Cee Escobar MD Primary Care Provider [phone] Reason for Visit * Reason Onset Date Comments Other 04/20/2012 Referral Encounter Details Date Type Department Care Team (Late st Contact Info) Description 04/20/2012 [place] [phone] Shashi Mckee MD [facility] [place] [address] Other (Referral) Social History Tobacco Use Types Packs/Day Years [...] encounter Miscellaneous Notes * Telephone Encounter - Katherin Leon Am - 04/20/2012 3:55 PM EDT They have received a referral from Dr. Mckee for this patient, but they don't know the reason forthe referral. Please call her with the reason. documented in this encounter Plan of Treatment Upcoming Encounters Date Type Department Care Team (Late st Contact Info) Description 08/06/2024 11:00 AM EST [place] [address] Sarah Serra APRN [facility] [place] [address] documented as of this encounter Visit Diagnoses Not on filedocumented in this encounter Care Teams Peanut Vendor Relationship Specialty Start Date End Date Cee Escobar MD [address] [place] [address] PCP - General 06/29/10 06/23/16 documented as of this encounter
--- OUTSIDE RECORDS SUMMARY | 2024-06-28 22:05 | XMS_ITS | Encounter Summary ---
Author Organization [facility] [place] [address] Care Team Providers Care Bobbin Sorter Name Role Phone Cee Escobar MD Primary Care Provider [phone] Reason for Visit * Reason Onset Date Comments Other 04/02/2014 lab results Encounter Details Date Type Department Care Team (Late st Contact Info) Description 04/02/2014 Telephone [place] [phone] Terri Hsu APRN [facility] [place] [address] Other (lab results) Social History Tobacco Use Types Packs/Day Years [...] Telephone Encounter - Mita Win RN - 04/02/2014 8:44 AM EDT Labs results received from [facility] Labs collected 03/06/14 CBC: WBC 3.12 L Reference Range: 4.4-10.8 HGB 11.6 L Reference Range: 12.0-15.5 MCV 73.9 L Reference Range: 80-95 FL MCH 23.2 L Reference Range: 27.0-33.0 pg MCHC 31.4 L Reference Range: 32.0-36.0 RDW 16.2 H Reference Range: 11.7-14.6 LYMPHOCYTES 46.5 H Reference Range: 19-44 Remaing cbc within normal limits Iron 40 L Reference Range: 50-175 TIBC 486 H Reference Range: 250-450 Transferrin saturation 8 L Reference Range: 15-50 CMP, Lipid: Cholesterol 207 H Reference Range: 50-200 Triglyceride 277 H Reference Range: 15-150 HDL Cholesterol 37 L Reference Range: 40-60 Otherwise within normal limits Valproic Acid Level: 96.3 Reference Range: 50-100 Plan: I will forward to Terri Hsu for review. documented in this encounter Plan of Treatment Upcoming Encounters Date Type Department Care Team (Late st Contact Info) Description 08/06/2024 11:00 AM EST Office [place] [address] Sarah Serra APRN [facility] [place] [address] documented as of this encounter Visit Diagnoses Not on filedocumented in this encounter Care Teams Bobbin Sorter Relationship Specialty Start Date End Date Cee Escobar MD [address] [place] [address] PCP - General 06/29/10 06/23/16 documented as of this encounter
--- OUTSIDE RECORDS SUMMARY | 2024-06-28 22:05 | XMS_ITS | Encounter Summary ---
[place] [address] Care Team Providers Care Tnt Powder Worker Name Role Phone Cee Escobar MD Primary Care Provider [phone] Encounter Details Date Type Department Care Team (Late st Contact Info) Description 04/02/2012 [place] [address] Terri Guerrero RN [address] [address] Social History Tobacco Use Types Packs/Day Years [...] Miscellaneous Notes * Telephone Encounter - Terri Guerrero RN - 04/02/2012 4:17 PM EDT VNS parameters: Output current: 1.75 milliamps Signal frequency: 25 Hertz Pulse Width:500 microseconds On time:14 sec Off time:1.1 min Magnet current:2.25 milliamps Set magnet on time at 30 sec. The OR will set the battery setting post -op documented in this encounter Plan of Treatment Upcoming Encounters Date Type Department Care Team (Late st Contact Info) Description 08/06/2024 11:00 AM EST [place] [address] Sarah Serra APRN [facility] [place] [address] documented as of this encounter Visit Diagnoses Not on filedocumented in this encounter Care Teams Tnt Powder Worker Relationship Specialty Start Date End Date Cee Escobar MD [address] [place] [address] PCP - General 06/29/10 06/23/16 documented as of this encounter
--- OUTSIDE RECORDS SUMMARY | 2024-06-28 22:05 | XMS_ITS | Encounter Summary ---
Author Organization [facility] [place] [address] Care Team Providers Care Furniture Restorer Name Role Phone Cee Escobar MD Primary Care Provider [phone] Reason for Visit * Reason Comments Suture / Staple Removal VNS programming Encounter Details Date Type Department Care Team (Late st Contact Info) Description 04/19/2012 9:45 AM EDT [place] [phone] Gray Hamilton APRN [facility] [place] [address] Epilepsy seizure, generalized, convulsive (Primary Dx) Discharge [...] Sign Reading Time Taken Comments Blood Pressure 117/61 04/19/2012 9:39 AM EDT Pulse 96 04/19/2012 9:39 AM EDT Temperature - - Respiratory Rate - - Oxygen Saturation - - Inhaled Oxygen Concentration - - Weight 72.6 kg (160 lb) 04/19/2012 9:39 AM EDT Height 147.3 cm (4' 10) 04/19/2012 9:39 AM EDT Body Mass Index 33.44 04/19/2012 9:39 AM EDT documented in this encounter Progress Notes * Gray Hamilton, FIT MODEL - 04/19/2012 4:22 PM EDT HPI: Cinthya is seen for a follow up visit. She was accompanied by her home provider. She had the VNSreplaced recently and was having her sutures removed today and came for another adjustment. She hashad several seizures since the VNS was turned back on. Her home provider feels seizures have been worse since reducing the depakote dosage by 250mg. Review of systems: Seizure Control: QEpilepsy 04/19/2012 Last seizure was: This week Number of seizures in past month: 6 Were seizures disabling? Yes Social Factors: Social Factors 04/19/2012 Employment status: No Currently driving: No Considering No Review of Systems: Review of systems 04/19/2012 1. double vision Never 2. headache Sometimes 3. rash Sometimes 4. unsteadiness Often 5. upset stomach, nausea, vomiting Rarely 6. troubles with gums or teeth Rarely 7. weight loss or gain Never 8. tremors or shaking Often 9. restlessness Never 10. dizziness Sometimes 11. tiredness/sleepiness Sometimes 12. trouble sleeping Never 13. difficulties concentrating Never 14. feelings of aggression Never 15. depression Never 16. thoughts about ending your life Never 17. palpitations or chest pains Never 18. bladder problems Sometimes 19. breathing problems Never Memory and concentration symptoms (QOLIE-31) Memory and concentration symptoms (QOLIE-31) 04/19/2012 QOLIE-31 9.33 (low scores suggest severe memory symptoms) Depression Score (NDDI-E) Depression Score (NDDI-E) 04/19/2012 Depression Score 6 (scores >15 suggest MDD) Quality of Life Quality of Life 04/19/2012 Quality of Life 8 Outpatient prescriptions marked as taking for the 04/19/12 encounter (Office Visit) with GRAY HAMILTON Medication Sig Dispense Refill ??? DEPAKOTE 500 [...] by mouth daily. Physical Exam Blood pressure 117/61, pulse 96, height 147.3 cm (4' 10), weight 72.576 kg (160 lb). Skin: She [...] Sitting in wheelchair. She was quite interactive today VNS parameters: Output current: 1.75 milliamps Signal frequency: 20 Hertz Pulse Width:500 microseconds On time:21 sec Off time:1.8 min Magnet current:2.25 milliamps Impression/Plan: Cinthya is continuing to have seizures despite having the VNS battery changed. She is tolerating the settings well. I made a few adjustments as above. Will go back to depakote 500mg three times daily and see if she gets back to doing well. Home provider is agreeable. She will return in 3 months for follow up. documented in this encounter Plan of Treatment Upcoming Encounters Date Type Department Care Team (Late st Contact Info) Description 08/06/2024 11:00 AM EST [place] [address] Sarah Serra APRN [facility] [place] [address] Scheduled Orders Name Type Priority Associated Diagnoses Orde r Schedule Valproic Acid Level, Total Lab Routine Epilepsy seizure, generalized, convulsive Expected: 05/21/2012 (Approximate), Expires: 04/19/2013 documented as of this encounter Visit Diagnoses Diagnosis Epilepsy seizure, generalized, convulsive- Primary Generalized convulsive epilepsy without mention of intractable epilepsy documented in this encounter Care Teams Furniture Restorer Relationship Specialty Start Date End Date Cee Escobar MD [address] [place] [address] PCP - General 06/29/10 06/23/16 documented as of this encounter
--- OUTSIDE RECORDS SUMMARY | 2024-06-28 22:05 | XMS_ITS | Encounter Summary ---
[place] [address] Care Team Providers Care Bakery Sales Clerk Name Role Phone Cee Escobar MD Primary Care Provider [phone] Reason for Visit * Reason Comments Obstructive Sleep Apnea Encounter Details Date Type Department Care Team (Late st Contact Info) Description 02/20/2012 10:00 AM EDT Office Visit Sleep Medicine [place] [id number] Samia Vega MD [facility] [place] [address] Obstructive sleep apnea (adult) (pediatric) (Primary Dx) [...] Sign Reading Time Taken Comments Blood Pressure 118/88 02/20/2012 10:21 AM EDT Pulse 86 02/20/2012 10:21 AM EDT Temperature - - Respiratory Rate - - Oxygen Saturation - - Inhaled Oxygen Concentration - - Weight 73.5 kg (162 lb) 02/20/2012 10:2 1 AM EDT as reported by mother from 06/17 Height - - Body Mass Index 33.86 12/07/2011 12:28 PM EDT documented in this encounter Progress Notes * Samia Vega MD - 02/20/2012 11:02 AM EDT Sleep Medicine Follow-Up Note HPI: Cinthya Brown is a 51 y.o. female seen for follow-up of obstructive sleep apnea. She was last seen 06/06/11. Variable use of BiPAP - reservoir caretaker noted impaired daytime functioning with less BiPAP use. Cinthya was also having more problems with ankle edema and seizures. Legs doing better with compression socks. Still having more seizures. Resourcing Consultant finds that mask not on in the morning when she gets her. Hasn't been able to get masks regularly from [facility] - thinks may be taking mask off because uncomfortable. Starts leaving masks on facewhen mask gets older. Resourcing Consultant often has to call repeatedly to get [facility] to send a mask. She did elevate HOB. Snoring may not be quite so bad with HOB elevated once she removes BiPAP. ROS: CON: weight change: no ENT: nasal obstruction: unknown : nocturia: incontinent at night NEURO: increased seizures Past Medical History: Patient Active Problem List Diagnoses Code ??? Epilepsy 345.90A ??? Sleep apnea 780.57C ??? Mental retardation 319R Medications: Outpatient prescriptions marked as taking for the 02/20/12 encounter (Office Visit) with SAMIA VEGA Medication Sig Dispense Refill ??? IPRIFLAV/CA CARBONATE/VIT D3 (CALCIUM CARB-VIT D3-IPRIFLAVON ORAL) Take by mouth 3 times daily. ??? DEPAKOTE 500 mg EC tablet Take 1 tablet by mouth 2 times daily. Total dose 1250mg per day 60 tablet PRN ??? DEPAKOTE 250 mg EC tablet Take 1 tablet by mouth daily. ??? LORazepam (ATIVAN) 1 mg tablet [...] Iron) TbEC Take 324 mg by mouth. PE: BP 118/88 Pulse 86 Wt 73.483 kg (162 lb) General: pleasant 51 y.o. female, no distress, in wheelchair, cannot participate in visit PAP compliance card reviewed: Dates:08/23/11-02/18/12 Pressure: 8-16cm 90% IPAP: 15 90% EPAP: 13 % days used: 73% Average usage on days used: 7.5 hrs Average residual AHI: 32 Leak: elevated Assessment: Cinthya Brown is a 51 y.o. female seen in follow-up for obstructive sleep apnea. She continues to remove the BiPAP, although not every night. Her care provider is not sure why (since she has been able to wear the BiPAP all night in the past), but she feels it may be related to mask discomfort. Shecan see that the current mask is leaving a sore spot on Cinthya's nose and she is having a hard time connecting with [facility] to obtain a new mask or mask fitting. As has been the case, the AHI/OAI is high related to the vagal nerve stimulator, but Cinthya's reservoir caretaker's sense is that she still finctions better with the BiPAP than without in terms of daytime symptoms. Time spent face to face: 20min Time spent devoted to counseling and discussion: 15min Recommendations: 1. Will refit for FFM here and order from [facility] 2. Cont BiPAP current settings 3. 6 mo follow up documented in this encounter Plan of Treatment Upcoming Encounters Date Type Department Care Team (Late st Contact Info) Description 08/06/2024 11:00 AM EST [place] [address] Sarah Serra APRN [facility] [place] [address] documented as of this encounter Visit Diagnoses Diagnosis Obstructive sleep apnea (adult) (pediatric)- Primary documented in this encounter Care Teams Bakery Sales Clerk Relationship Specialty Start Date End Date Cee Escobar MD [address] [place] [address] PCP - General 06/29/10 06/23/16 documented as of this encounter
--- OUTSIDE RECORDS SUMMARY | 2024-06-28 22:05 | XMS_ITS | Encounter Summary ---
[place] [address] Care Team Providers Care Embedded Firmware Developer Name Role Phone Cee Escobar MD Primary Care Provider [phone] Encounter Details Date Type Department Care Team (Late st Contact Info) Description 04/02/2012 2:22 PM EDT - 04/02/2012 4:41 PM EDT Surgery [place] [id number] Clayton Lopez MD REVISION/REPLACEMENT OF PULSE GENERATOR (VNS) (WRVU 11) Social History Tobacco Use Types Packs/Day Years [...] Sign Reading Time Taken Comments Blood Pressure 127/63 04/02/2012 1:28 PM EDT Pulse 75 04/02/2012 1:28 PM EDT Temperature 36.5 ??C (97.7 ??F) 04/02/2012 1:28 PM ED T Respiratory Rate 16 04/02/2012 1:28 PM EDT Oxygen Saturation 98% 04/02/2012 1:28 PM EDT Inhaled Oxygen Concentration - - [...] with each person. Pain (short term and superintendent container terminal) With any surgery there is some discomfort [...] risk for bleeding. We recommend taking an vfaf-dcq-Ofmfsnf stool softener, such as Colace (docusate) or [...] Magnesia), may be used as needed. These vkzu-mmr-ymyqeji (OTC) medications are available at your pharmacy without a prescription.Call the neurosurgery BRIDGE GAME DIRECTOR medical care administrator if you have questions. Complications Call your [...] Time Provider Department Center 06/07/2012 1:20 PM [facility] [address] [place] [address] CLIN [x] You will be contacted with a follow-up in Neurosurgery clinic. If you do not hear from us in a timely manner please call [phone] and state that you need to be seen in [address] Lopez. [x] Please follow-up for suture/staple removal in 10-14 days. [] With your Primary Care Provider [x] With the Neurosurgery BRIDGE GAME DIRECTOR/RN Contact your Doctor Office Hours: Monday through Monday, 8am-5pm. Call . On weekends or after office hours: Call [phone] and ask the oil heater operator to page the NeurourgeryResident ammonia box operator. IMPORTANT PHONE NUMBERS: Outpatient Nurse ([place]) Inpatient Nurses Neurosurgical Resident Help Desk Operator (after 5pm or before 8am) Neurosurgery offices (between 8am-5pm): Dr. Mayer Dr. Barger (pediatric neurosurgery) Dr. Chung Dr. Lopez Dr. Noe Dr. Cheatham Clayton Fuentes, Physician Hot Braider Juliet Granados, Physician Hot Braider Alondra Joiner, Nurse Practitioner Carlita Elizabeth, Nurse Practitioner * Your surgeon may not be yard caller, so be ready to tell about [...] 24-Hour Pre-Operative H&P Update Cinthya Brown 1960 [id number] Patient seen in pre-op holding area today. [...] 11:00 AM EST [place] [address] Sarah Serra APRN [facility] [place] [address] documented as of this encounter Procedures Procedure Name Priority Date/Time Associated Diagnosis Comments REVISION/REPLACEMENT OF PULSE GENERATOR (VNS) (WRVU 11) 04/02/2012 6:20 PM EDT Epilepsy documented in this encounter Visit Diagnoses Diagnosis Epilepsy Unspecified epilepsy without mention of intractable epilepsy documented in this encounter Administered Medications Inactive Administered Medications - up to 3 most recent administrations Medication Order MAR Action Action Date Dose Rate Site bacitracin-polymyxin b (POLYSPORIN) ointment ONCE PRN, Starting on Mon04/02/12 at 1947, Until Mon04/02/12 at 2307, Intra-Operative (Intra-Procedure) Given 04/02/2012 7:47 PM EDT 7 g 19- Surgical Site lactated ringers infusion 1,000 mL 1,000 [...] 1345 (Due)1730 (Give n - Provider: Yazmin Wu, RN) Continuous Medication Order 03/31/2012 04/01/2012 04/02/2012 lactated ringers infusion 1,000 mL (CANCELED) 1,000 mL, at 100 mL/hr, Intravenous, CONTINUOUS, Starting on Mon04/02/12 at 1500, Until Mon04/02/12 at 2307, Day of Surgery (Day of Procedure) 1500 (Due)1729 (New Bag - Provider: Yazmin Wu, PATT) PRN Medication Order 03/31/2012 04/01/2012 04/02/2012 bacitracin-polymyxin b (POLYSPORIN) ointment (CANCELED) ONCE PRN, Starting on Mon04/02/12 at 1947, Until Mon04/02/12 at 2307, Intra-Operative (Intra-Procedure) 1947 (Given - Provid er: Clayton Lopez) documented in this encounter Care Teams Embedded Firmware Developer Relationship Specialty Start Date End Date Cee Escobar MD [address] [place] [address] PCP - General 06/29/10 06/23/16 documented as of this encounter
--- OUTSIDE RECORDS SUMMARY | 2024-06-28 22:05 | XMS_ITS | Encounter Summary ---
Author Organization [facility] [place] [address] Care Team Providers Care Rf Manager Name Role Phone Cee Escobar MD Primary Care Provider [phone] Reason for Visit * Reason Onset Date Comments Results 05/14/2013 Trileptal level from 05/08/13 Encounter Details Date Type Department Care Team (Late st Contact Info) Description 05/14/2013 [place] [phone] Terri Hsu APRN [facility] [address] Results (Trileptal level from 05/08/13) Social History Tobacco Use Types Packs/Day Years [...] Telephone Encounter - Katlin Sargent LPN - 05/14/2013 9:09 AM EDT Ate of lab: 05/08/13 Lab: Trileptal level 27 Ref. Range 3-35 documented in this encounter Plan of Treatment Upcoming Encounters Date Type Department Care Team (Late st Contact Info) Description 08/06/2024 11:00 AM EST [place] [address] Sarah Serra APRN [facility] [place] [address] documented as of this encounter Visit Diagnoses Not on filedocumented in this encounter Care Teams Rf Manager Relationship Specialty Start Date End Date Cee Escobar MD [address] [place] [address] PCP - General 06/29/10 06/23/16 documented as of this encounter
--- OUTSIDE RECORDS SUMMARY | 2024-06-28 22:05 | XMS_ITS | Encounter Summary ---
Author Organization [facility] [place] [address] Care Team Providers Care Potato Peeler Name Role Phone Cee Escobar MD Primary Care Provider [phone] Encounter Details Date Type Department Care Team (Late st Contact Info) Description 03/20/2012 3:00 PM EDT Office [place] [address] Carlita Elizabeth APRN [facility] [address] [place] [address] Ethan Dye MD Epilepsy (Primary Dx) Discharge Disposition: Home Social History [...] as of this encounter Progress Notes * Carlita Elizabeth APRN - 03/20/2012 4:20 PM EDT Patient seen earlier today for H&P. Please refer to earlier note for pre-op assessment and plan. documented in this encounter Plan of Treatment Upcoming Encounters Date Type Department Care Team (Late st Contact Info) Description 08/06/2024 11:00 AM EST [place] [address] Sarah Serra, CLIP WRAPPER [facility] [place] [address] documented as of this encounter Visit Diagnoses Diagnosis Epilepsy- Primary Unspecified epilepsy without mention of intractable epilepsy documented in this encounter Care Teams Potato Peeler Relationship Specialty Start Date End Date Cee Escobar MD [address] [place] [address] PCP - General 06/29/10 06/23/16 documented as of this encounter
--- OUTSIDE RECORDS SUMMARY | 2024-06-28 22:06 | XMS_ITS ---
[place] [address] Care Team Providers Care Estate Planning Counselor Name Role Phone Luis Manuel Blanca MD Primary Care Provider [phone] Seizure Disorder Status:Enrolled (Active) Start date:04/08/2021 Enrollment date:04/08/2021 Enrollment reason:Enrolled - Currently Fills with Specialty Current support & services provided:Clinical Management, Refill Management Linked medications:cannabidiol (CBD) (Active) Linked problems:Guillaume-Gastaut syndrome (Active), Seizure (Active) Continued Care and Services Coordination
[2024-07-02 13:47] LABS: Levetiracetam 34.5 mcg/mL
== END 2024-06-28 21:56 | disposition home or self-care (01) ==
LOC: LBN 21:55
PROVIDERS: PCP Family Medicine; Visit Provider Nurse Practitioner Family
DX: R56.9 Unspecified convulsions (principal); K04.7 Periapical abscess without sinus; R21 Rash and other nonspecific skin eruption
CPT/HCPCS: 80177; 85025

== ENCOUNTER 2024-08-12 14:55 | Outpatient (CLI) | payer MEDICARE, MEDICAID, SELFPAY ==
--- NOTE | 2024-08-12 14:45 | RT.EKG_ITS ---
APPROVED REPORT Exam: Resting ECG Reason for Exam: pre-op exam Patient Location: O HR:72 bpm ECG Measurements Heart Rate 72 AXIS KS 134 P 48 QRSd 86 QRS 37 QT 360 T 28 QTc 394 Conclusion Sinus rhythm...normal P axis, V-rate 50- 99 Normal Electrocardiogram
== END 2024-08-12 14:56 | disposition home or self-care (01) ==
LOC: DI.CM 14:56
PROVIDERS: PCP Family Medicine; Visit Provider Nurse Practitioner Family
DX: Z01.818 Encounter for other preprocedural examination (principal)
CPT/HCPCS: 93010

== ENCOUNTER 2024-08-13 03:24 | Outpatient (CLI) | payer MEDICARE, MEDICAID, SELFPAY ==
[2024-08-13 17:08] LABS: HCT 43.3 % (36.0-46.0); MCH 28.9 pg (27.0-33.0); MCHC 32.3 % (32.0-36.0); MCV 90 fL (80-95); MPV 9.4 fL (8.0-11.0); Platelet Count 246 10^3/uL (130-400); RBC 4.84 10^6/uL (3.93-5.22); RDW 12.5 % (11.7-14.6); WBC 6.22 10^3/uL (4.4-10.8)
[2024-08-13 17:22] LABS: Anion Gap 6.3 mmol/L (3-11); BUN 17 mg/dL (7-18); CO2 28.7 mmol/L (21.0-32.0); CREATININE 0.7 mg/dL (0.55-1.02); Calcium 9.7 mg/dL (8.5-10.1); Chloride 105 mmol/L (98-107); Estimated GFR 97.72 (mL/min/1.73m2); Glucose 98 mg/dL (74-106); Potassium 4.1 mmol/L (3.5-5.1); Sodium 140 mmol/L (136-145)
== END 2024-08-13 03:25 | disposition home or self-care (01) ==
LOC: LBO 03:24
PROVIDERS: PCP Family Medicine; Visit Provider Nurse Practitioner Family
DX: K52.9 Noninfective gastroenteritis and colitis, unspecified (principal)
CPT/HCPCS: 36415; 80048; 85027

== ENCOUNTER 2024-11-04 00:23 | Outpatient (CLI) | payer MEDICARE, MEDICAID, SELFPAY ==
--- NOTE | 2024-11-04 07:00 | DI.RAD_ITS ---
Exam(s) XR HIP LT COMPLETE AP PELVIS EXAM: XR HIP LT COMPLETE AP PELVIS CLINICAL HISTORY: limited mobility of left hip,stiffness lt hip,m25.652. TECHNIQUE: 2D digital imaging was performed of the left hip. Two views were obtained. AP pelvis an d lateral left hip views were obtained. COMPARISON: CR RT HIP COMPLETE AP PELVIS from 09/28/2016 CR RT HIP COMPLETE AP PELVIS from 02/21/2017 FINDINGS: BONES: No acute fracture is present. No bony destructive lesion is seen. The bones are osteopenic. JOINTS: There is again seen deformity of the right humeral head which appears stable. Since the prio r examination there has been progressive loss of volume of the left femoral head with marked narrowin g of the superior joint space and mild lateral subluxation of the head relative to the left acetabulu m. SOFT TISSUE: There is a moderate amount of stool in the distal sigmoid colon and rectum raising the q uestion of constipation. IMPRESSION: 1. In the left hip, there has been progressive deformity of the femoral head with loss of volume, sup erior joint space narrowing and mild lateral subluxation. 2. Stable deformity of the right hip. 3. Stool seen in the distal colon and rectum suspicious for constipation. DATA REPOSITORY: RADIATION DOSE DELIVERED:
== END 2024-11-04 00:43 ==
LOC: DI 00:23
PROVIDERS: PCP Family Medicine; Visit Provider Family Medicine
DX: M25.652 Stiffness of left hip, not elsewhere classified (principal)
CPT/HCPCS: 73502

== ENCOUNTER → 2024-11-25 12:44 | Outpatient (BNVA) | payer MEDICARE, MEDICAID, SELFPAY | PROVIDERS: PCP Family Medicine; Referring Provider Family Medicine; Visit Provider Surgery | DX: L89.623 Pressure ulcer of left heel, stage 3 (principal) | CPT/HCPCS: 11042; 99214 ==

== ENCOUNTER 2024-12-06 11:24 | Outpatient (REF) | payer MEDICARE, MEDICAID, SELFPAY | END 2024-12-06 11:25 | disposition home or self-care (01) | LOC: LBN 11:24 | PROVIDERS: PCP Family Medicine; Visit Provider Physical Therapy Assistant | DX: L89.623 Pressure ulcer of left heel, stage 3 (principal); B96.89 Other specified bacterial agents as the cause of diseases classified elsewhere | CPT/HCPCS: 87070; 87205 ==

== ENCOUNTER → 2024-12-06 11:24 | Outpatient (BNVA) | payer MEDICARE, MEDICAID, SELFPAY | PROVIDERS: PCP Family Medicine; Referring Provider Family Medicine; Visit Provider Physical Therapy Assistant | DX: R50.9 Fever, unspecified (principal); L89.623 Pressure ulcer of left heel, stage 3 | CPT/HCPCS: 99214 ==

== ENCOUNTER → 2024-12-13 10:44 | Outpatient (BNVA) | payer MEDICARE, MEDICAID, SELFPAY | PROVIDERS: PCP Family Medicine; Referring Provider Family Medicine; Visit Provider Physical Therapy Assistant | DX: L89.623 Pressure ulcer of left heel, stage 3 (principal) | CPT/HCPCS: 99214 ==

== ENCOUNTER → 2024-12-18 12:54 | Outpatient (BNVA) | payer MEDICARE, MEDICAID, SELFPAY | PROVIDERS: PCP Family Medicine; Referring Provider Family Medicine; Visit Provider Student in an Organized Health Care Education/Training Program | DX: L89.623 Pressure ulcer of left heel, stage 3 (principal) | CPT/HCPCS: 99215 ==

== ENCOUNTER → 2025-02-10 14:26 | Outpatient (BNVA) | payer MEDICARE, MEDICAID, SELFPAY | PROVIDERS: PCP Family Medicine; Referring Provider Family Medicine; Visit Provider Student in an Organized Health Care Education/Training Program | DX: M21.952 Unspecified acquired deformity of left thigh (principal); M62.451 Contracture of muscle, right thigh; M62.452 Contracture of muscle, left thigh; S73.001A Unspecified subluxation of right hip, initial encounter; S73.002A Unspecified subluxation of left hip, initial encounter; G80.9 Cerebral palsy, unspecified; X58.XXXA Exposure to other specified factors, initial encounter | CPT/HCPCS: 99214 ==